=== PATIENT | female | born 1960 | race Caucasian/White ===

== ENCOUNTER 2019-02-11 07:37 | Observation (INO) | payer OTHER ==
[2019-02-11] MEDS ORDERED: SODIUM CHLORIDE 0.9% 1,000 ML IV STA (07:46)
[2019-02-11] MEDS ORDERED: SODIUM CHLORIDE 0.9% 500 ML 500 ML IV STA (07:46)
--- NOTE | 2019-02-11 07:50 | ED ---
General Adult HPI - General Chief complaint: Recheck/Abnormal Lab/Rx Stated complaint: Sob Time Seen by Provider: 02/11/19 07:37 Source: patient, EMS, RN notes reviewed Mode of arrival: EMS Limitations: no limitations - History of Present Illness Initial comments: This is a 58-year-old female who presents with multiple complaints by EMS this morning. She complains of having seizures she also complains of shortness of breath and lower abdominal pain. She does state that she's had seizures in the past though she is not on any medication for them when asked how she knew she had a seizure she states she was has some shaking episodes. He also complains some shortness of breath. She does states she is scheduled for cardiac catheterization in 2 days. Additionally she states she's had chronic lower abdominal pain especially on the left she believes it might be ulcerative colitis as a family member with some medical training thinks is what she has. She has had a cholecystectomy in the past. She denies any fevers chills nausea vomiting at this time. She did receive a nebulizer treatment in route by EMS as she presented with wheezing in the upper lobes. She does feel somewhat better at this time. No chest pain. No diarrhea constipation reported no dysuria reported. - Related Data Home Medications Medication Instructions Recorded Confirmed Albuterol Inhaler [Ventolin Hfa 1 - 2 puff INHALATION RT-Q6H PRN 02/11/19 02/11/19 Inhaler] Aspirin EC [Ecotrin Low Dose] 81 mg PO DAILY 02/11/19 02/11/19 Atorvastatin [Lipitor] 40 mg PO HS 02/11/19 02/11/19 Ibuprofen [Motrin] 600 mg PO Q8HR PRN 02/11/19 02/11/19 Potassium Chloride [Klor-Con 10] 10 meq PO BID 02/11/19 02/11/19 amLODIPine [Norvasc] 10 mg PO DAILY 02/11/19 02/11/19 Allergies Allergy/AdvReac Type Severity Reaction Status Date / Time Influenza Virus Vaccines AdvReac Nausea & Verified 02/11/19 08:43 Vomiting morphine AdvReac Nausea & Verified 02/11/19 08:43 Vomiting Review of Systems ROS Statement: Those systems with pertinent positive or pertinent negative responses have been documented in the HPI. ROS Other: All systems not noted in ROS Statement are negative. Past Medical History Past Medical History: Asthma, Myocardial Infarction ([place]), Seizure Disorder Additional Past Medical History / Comment(s): DDD History of Any Multi-Drug Resistant Organisms: None Reported Past Surgical History: Cholecystectomy, Joint Replacement, Orthopedic Surgery Additional Past Surgical History / Comment(s): bartholin gland cyst removal Past Psychological History: No Psychological Hx Reported Smoking Status: Current every day smoker Past Alcohol Use History: Abuse, Heavy Past Drug Use History: Marijuana General Exam - General Exam Comments Initial Comments: This is a well-developed well-nourished awake alert oriented history female she does demonstrate the smell of alcohol conjoiners on her breath Limitations: no limitations General appearance: alert, anxious Head exam: Present: atraumatic, normocephalic, normal inspection Eye exam: Present: normal appearance, PERRL, EOMI. Absent: scleral icterus, conjunctival injection, periorbital swelling ENT exam: Present: mucous membranes dry Neck exam: Present: normal inspection, other. Absent: tenderness, meningismus, lymphadenopathy Respiratory exam: Present: decreased breath sounds (Stridor JVD or bruits) Cardiovascular Exam: Present: regular rate, normal rhythm, normal heart sounds. Absent: systolic murmur, diastolic murmur, rubs, gallop, clicks GI/Abdominal exam: Present: soft, tenderness (Mild midepigastric tenderness no guarding rebound masses or bruits) Rectal exam: Present: deferred Extremities exam: Present: normal inspection, full ROM, normal capillary refill. Absent: tenderness, pedal edema, joint swelling, calf tenderness Back exam: Present: normal inspection Neurological exam: Present: alert, oriented X3, CN II-XII intact Psychiatric exam: Present: normal affect, normal mood Skin exam: Present: warm, dry, intact, normal color. Absent: rash Course Vital Signs 02/11/19 02/11/19 07:39 08:34 Temperature 98 F Pulse Rate 90 79 Respiratory 20 18 Rate Blood Pressure 168/104 135/91 O2 Sat by Pulse 99 100 Oximetry - Reevaluation(s) Reevaluation #1: 02/11/19 10:17 Evaluation patient reveals she still awake alert she states she only had 4 dr inks yesterday. Reevaluation #2: 02/11/19 10:18 Lung sounds are improved Medical Decision Making - Medical Decision Making I did discuss findings with the patient she'll be admitted I did discuss case with Dr. gonzalez patient will receive IV magnesium also consultation by Dr. Vidal. - Lab Data Result diagrams: 02/11/19 08:20 02/11/19 08:15 Lab Results 02/11/19 02/11/19 02/11/19 Range/Units 08:15 08:15 08:20 WBC 8.6 (3.8-10.6) k/uL RBC 4.71 (3.80-5.40) m/uL Hgb 13.8 (11.4-16.0) gm/dL Hct 43.4 (34.0-46.0) % MCV 92.1 (80.0-100.0) fL MCH 29.3 (25.0-35.0) pg MCHC 31.8 (31.0-37.0) g/dL RDW 17.2 H (11.5-15.5) % Plt Count 285 (150-450) k/uL Neutrophils % 61 % Lymphocytes % 29 % Monocytes % 4 % Eosinophils % 2 % Basophils % 2 % Neutrophils # 5.3 (1.3-7.7) k/uL Lymphocytes # 2.5 (1.0-4.8) k/uL Monocytes # 0.4 (0-1.0) k/uL Eosinophils # 0.2 (0-0.7) k/uL Basophils # 0.1 (0-0.2) k/uL Anisocytosis Slight Sodium 141 (137-145) mmol/L Potassium 4.0 (3.5-5.1) mmol/L Chloride 102 (98-107) mmol/L Carbon Dioxide 26 (22-30) mmol/L Anion Gap 13 mmol/L BUN 11 (7-17) mg/dL Creatinine 0.47 L (0.52-1.04) mg/dL Est GFR (CKD-EPI)AfAm >90 (>60 ml/min/1.73 sqM) Est GFR (CKD-EPI)NonAf >90 (>60 ml/min/1.73 sqM) Glucose 116 H (74-99) mg/dL Calcium 8.6 (8.4-10.2) mg/dL Magnesium 1.7 (1.6-2.3) mg/dL Total Bilirubin 0.4 (0.2-1.3) mg/dL AST 88 H (14-36) U/L ALT 61 H (9-52) U/L Alkaline Phosphatase 133 H (38-126) U/L Total Creatine Kinase 57 (30-135) U/L CK-MB (CK-2) 0.6 (0.0-2.4) ng/mL CK-MB (CK-2) Rel Index 1.1 Total Protein 7.2 (6.3-8.2) g/dL Albumin 4.2 (3.5-5.0) g/dL Amylase 45 (30-110) U/L Lipase 130 (23-300) U/L Urine Color Urine Appearance (Clear) Urine pH (5.0-8.0) Ur Specific [place] (1.001-1.035) Urine Protein (Negative) Urine Glucose (UA) (Negative) Urine Ketones (Negative) Urine Blood (Negative) Urine Nitrite (Negative) Urine Bilirubin (Negative) Urine Urobilinogen (<2.0) mg/dL Ur Leukocyte Esterase (Negative) Serum Alcohol 321 H* mg/dL 02/11/19 Range/Units 08:24 WBC (3.8-10.6) k/uL RBC (3.80-5.40) m/uL Hgb (11.4-16.0) gm/dL Hct (34.0-46.0) % MCV (80.0-100.0) fL MCH (25.0-35.0) pg MCHC (31.0-37.0) g/dL RDW (11.5-15.5) % Plt Count (150-450) k/uL Neutrophils % % Lymphocytes % % Monocytes % % Eosinophils % % Basophils % % Neutrophils # (1.3-7.7) k/uL Lymphocytes # (1.0-4.8) k/uL Monocytes # (0-1.0) k/uL Eosinophils # (0-0.7) k/uL Basophils # (0-0.2) k/uL Anisocytosis Sodium (137-145) mmol/L Potassium (3.5-5.1) mmol/L Chloride (98-107) mmol/L Carbon Dioxide (22-30) mmol/L Anion Gap mmol/L BUN (7-17) mg/dL Creatinine (0.52-1.04) mg/dL Est GFR (CKD-EPI)AfAm (>60 ml/min/1.73 sqM) Est GFR (CKD-EPI)NonAf (>60 ml/min/1.73 sqM) Glucose (74-99) mg/dL Calcium (8.4-10.2) mg/dL Magnesium (1.6-2.3) mg/dL Total Bilirubin (0.2-1.3) mg/dL AST (14-36) U/L ALT (9-52) U/L Alkaline Phosphatase (38-126) U/L Total Creatine Kinase (30-135) U/L CK-MB (CK-2) (0.0-2.4) ng/mL CK-MB (CK-2) Rel Index Total Protein (6.3-8.2) g/dL Albumin (3.5-5.0) g/dL Amylase (30-110) U/L Lipase (23-300) U/L Urine Color Light Yellow Urine Appearance Clear (Clear) Urine pH 6.0 (5.0-8.0) Ur Specific [place] 1.005 (1.001-1.035) Urine Protein Negative (Negative) Urine Glucose (UA) Negative (Negative) Urine Ketones Negative (Negative) Urine Blood Negative (Negative) Urine Nitrite Negative (Negative) Urine Bilirubin Negative (Negative) Urine Urobilinogen <2.0 (<2.0) mg/dL Ur Leukocyte Esterase Negative (Negative) Serum Alcohol mg/dL - EKG Data -: EKG Interpreted by Or EKG shows normal: sinus rhythm (Sinus rhythm of 80. Interval 1:30 QRS duration 92 QT since QTC of 404/465 nonspecific T-wave in reality seen inferior and anterior lateral leads. Prolonged QT) - Radiology Data Radiology results: report reviewed, image reviewed (I did review the imaging and report no acute findings.) Disposition Clinical Impression: Alcohol intoxication, Tremors of nervous system, COPD exacerbation Disposition: ADMITTED IP TO THIS HOSP Condition: Stable Referrals: Davide العلي MD [Primary Care Provider] - 1-2 days
[2019-02-11 08:32] LABS: Anisocytosis Slight; Basophils # (A) 0.1 k/uL (0-0.2); Basophils % (A) 2 %; Eosinophils # (A) 0.2 k/uL (0-0.7); Eosinophils % (A) 2 %; HCT 43.4 % (34.0-46.0); HGB 13.8 gm/dL (11.4-16.0); Lymphocytes # (A) 2.5 k/uL (1.0-4.8); Lymphocytes % (A) 29 %; MCH 29.3 pg (25.0-35.0); MCHC 31.8 g/dL (31.0-37.0); MCV 92.1 fL (80.0-100.0); Mean Platelet Volume 6.8; Monocytes # (A) 0.4 k/uL (0-1.0); Monocytes % (A) 4 %; Neutrophils # (A) 5.3 k/uL (1.3-7.7); Neutrophils % (A) 61 %; Platelet Count 285 k/uL (150-450); RBC 4.71 m/uL (3.80-5.40); RDW 17.2 % (11.5-15.5); WBC 8.6 k/uL (3.8-10.6)
[2019-02-11 08:44] LABS: ALT 61 U/L (9-52); AST 88 U/L (14-36); Albumin 4.2 g/dL (3.5-5.0); Alkaline Phosphatase 133 U/L (38-126); Amylase 45 U/L (30-110); Anion Gap 13 mmol/L; Blood Urea Nitrogen 11 mg/dL (7-17); Calcium 8.6 mg/dL (8.4-10.2); Carbon Dioxide 26 mmol/L (22-30); Chloride 102 mmol/L (98-107); Glucose 116 mg/dL (74-99); Lipase 130 U/L (23-300); Magnesium 1.7 mg/dL (1.6-2.3); Sodium 141 mmol/L (137-145); Total Bilirubin 0.4 mg/dL (0.2-1.3); Total Protein 7.2 g/dL (6.3-8.2)
[2019-02-11 08:53] LABS: Appearance,Urine Clear (Clear); Bilirubin,Urine Negative (Negative); Blood,Urine Negative (Negative); Color,Urine Light Yellow; Glucose,Urine (UA) Negative (Negative); Ketones,Urine Negative (Negative); Leukocyte Esterase,Urine Negative (Negative); Nitrite,Urine Negative (Negative); Protein,Urine Negative (Negative); Specific Gravity,Urine 1.005 (1.001-1.035); Urobilinogen,Urine <2.0 mg/dL (<2.0)
[2019-02-11 09:12] LABS: Alcohol 321 mg/dL
--- NOTE | 2019-02-11 09:12 | XR ---
EXAMINATION TYPE: XR chest 2V DATE OF EXAM: 02/11/2019 COMPARISON: NONE TECHNIQUE: PA and lateral views submitted. HISTORY: Cough FINDINGS: The lungs are clear and there is no pneumothorax, pleural effusion, or focal pneumonia. IMPRESSION: 1. No acute process.
[2019-02-11 09:13] LABS: Creatine Kinase MB 0.6 ng/mL (0.0-2.4)
--- NOTE | 2019-02-11 09:13 | XR ---
EXAMINATION TYPE: XR KUB DATE OF EXAM: 02/11/2019 COMPARISON: NONE HISTORY: Pain TECHNIQUE: One view abdominal series FINDINGS: The osseous structures are intact. The bowel gas pattern is nonspecific. Lung bases are clear. Surg ical clips in the right upper quadrant. Hypertrophic change of the spine. Calcifications in pelvis ar e nonspecific. Mild arthropathy of the left SI joint. IMPRESSION: 1. Nonspecific abdomen. No diagnostic evidence of obstruction. There are calcifications in the pelvi s which are nonspecific. If there is concern for distal ureteral calculus correlate with noncontrast CT.
[2019-02-11] MEDS ORDERED: MAGNESIUM SULFATE-D5W PMX 1 GM in DEXTROSE/WATER 1 100ML.BAG IVPB ONE (10:06)
[2019-02-11] MEDS ORDERED: NALOXONE 0.4 MG/ML 1 ML VIAL IV PRN (10:20)
[2019-02-11] MEDS ORDERED: LORazepam 2 MG/ML INJ IV PRN ×2 (10:22)
[2019-02-11] MEDS ORDERED: THIAMINE 100 MG/ML 2 ML VIAL IM STA (10:22)
[2019-02-11] MEDS ORDERED: methylPREDNISolone SOD SUCCI 125 MG/2 ML VIAL IV STA (10:24)
[2019-02-11] MEDS: LORazepam 2 MG/ML INJ IV PRN ×2 (12:55→16:13)
[2019-02-11] MEDS: IPRATROPIUM-ALBUTEROL 3 ML NEB INHALATION SCH ×3 (13:55→20:06)
--- NOTE | 2019-02-11 14:55 | P.CRDCN ---
History of Present Illness History of present illness: This is a pleasant 58-year-old female past medical history significant for chronic alcoholism,asthma, hypertension, dyslipidemia seizure disorder, nerve damage, chronic nicotine dependence and irritable bowel syndrome. She denies history of coronary artery disease and has never had a heart catheterization in the past. She follows in the office with Dr. Howard. She is scheduled for an outpatient cardiac catheterization February 13. She presented to the hospital today with symptoms of abdominal discomfort and bloating as well as she states she had a seizure at home. She denies symptoms of chest discomfort, shortness of breath, dizziness or palpitations. She states she had a lot of jerking all over her body that she thought was a seizure however she had no loss of consciousness and recalls all the events that occurred surrounding this tremor. She also states 2 days ago she had a significant amount of bright red bleeding in her stool. Currently maintained on aspirin 81 mg daily, atorvastatin 40 mg daily and amlodipine 10 mg daily. EKG reveals sinus mechanism with T-wave inversions noted anterior, inferior and laterally. Similar to EKG in the office from November. Chest x-ray is negative for an acute cardiopulmonary process. Laboratory data reviewed, WBC 8.6, hemoglobin 13.8, platelets 285, sodium 141, potassium 4.0, creatinine 0.47, AST 88, ALTs 61, alkaline phosphatase 133, magnesium 1.7. Most recent echocardiogram obtained at [facility] November 2018 reveals preserved left ventricular systolic function with ejection fraction 55- 60% with mild mitral regurgitation. Most recent stress test performed in November 2018 at [facility] was a Lexiscan stress test which revealed pharmacologically induced left ventricular myocardial ischemia. At the time of my exam: CONSTITUTIONAL: Denies fever. Denies chills. EYES: Denies blurred vision. Denies vision changes. Denies eye pain. EARS, NOSE, MOUTH & THROAT: Denies headache. Denies sore throat. Denies ear pain. CARDIOVASCULAR: Denies chest pain. Denies shortness of breath. Denies orthopnea. Denies PND. Denies palpitations. RESPIRATORY: Denies cough. GASTROINTESTINAL: Complains of abdominal pain. Denies diarrhea. Denies constipation. Denies nausea. Denies vomiting. MUSCULOSKELETAL: Denies myalgias. INTEGUMENTARY: Denies pruitis. Denies rash. NEUROLOGIC: Denies numbness. Denies tingling. Denies weakness. PSYCHIATRIC: Denies anxiety. Denies depression. ENDOCRINE: Denies fatigue. Denies weight change. Denies polydipsia. Denies polyurina. GENITOURINARY: Denies burning, hematuria or urgency with micturation. HEMATOLOGIC: Denies history of anemia. Denies bleeding. Blood pressure 146/92 heart rate 92 afebrile maintaining oxygen saturation on nasal cannula GENERAL: This is a 58-year-old female in no apparent distress at the time of my examination. HEENT: Head is atraumatic, normocephalic. Pupils are equal, round. Sclerae anicteric. Conjunctivae are clear. Mucous membranes of the mouth are moist. Neck is supple. There is no jugular venous distention. No carotid bruit is heard. LUNGS: Clear to auscultation no wheezes, rales or rhonchi. No chest wall tenderness is noted on palpation or with deep breathing. HEART: Regular rate and rhythm without murmurs, rubs or gallops. S1 and S2 heard. ABDOMEN: Soft, nontender. Bowel sounds are heard. No organomegaly noted. EXTREMITIES: No evidence of peripheral edema and no calf tenderness noted. VASCULAR: Radial and dorsalis pedis pulses palpated, no evidence of clubbing. NEUROLOGIC: Patient is awake, alert and oriented x3. ASSESSMENT Abdominal discomfort with acute bright red GI bleeding Acute alcohol intoxication with history of chronic alcohol abuse Abnormal stress test 11/2018, patient is scheduled for catheterization , February 13 Hypertension Dyslipidemia Chronic nicotine dependence PLAN Ongoing medical management and evaluation of abdominal discomfort with GI bleeding. From a cardiac standpoint her catheterization will be postponed for until this GI bleeding has been addressed and resolved. Continue current medical regimen and follow up with Dr. Howard in the office upon discharge to reschedule heart catheterization. Thank you kindly for this consultation. Nurse Practitioner note has been reviewed, I agree with a documented findings and plan of care. Patient was seen and examined. Past Medical History Past Medical History: Asthma, Myocardial Infarction ([place]), Seizure Disorder Additional Past Medical History / Comment(s): DDD Last Myocardial Infarction Date:: aug 2018 History of Any Multi-Drug Resistant Organisms: None Reported Past Surgical History: Cholecystectomy, Joint Replacement, Orthopedic Surgery Additional Past Surgical History / Comment(s): bartholin gland cyst removal Past Anesthesia/Blood Transfusion Reactions: No Reported Reaction Past Psychological History: No Psychological Hx Reported, Depression Smoking Status: Current every day smoker Past Alcohol Use History: Abuse, Heavy Past Drug Use History: Marijuana - Past Family History Mother Family Medical History: Cancer, Congestive Heart Failure (CHF), Coronary Artery Disease (CAD), Hyperlipidemia Father Family Medical History: Cancer, COPD Medications and Allergies Home Medications Medication Instructions Recorded Confirmed Type Albuterol Inhaler [Ventolin Hfa 1 - 2 puff INHALATION RT-Q6H PRN 02/11/19 02/11/19 History Inhaler] Aspirin EC [Ecotrin Low Dose] 81 mg PO DAILY 02/11/19 02/11/19 History Atorvastatin [Lipitor] 40 mg PO HS 02/11/19 02/11/19 History Ibuprofen [Motrin] 600 mg PO Q8HR PRN 02/11/19 02/11/19 History Potassium Chloride [Klor-Con 10] 10 meq PO BID 02/11/19 02/11/19 History amLODIPine [Norvasc] 10 mg PO DAILY 02/11/19 02/11/19 History Allergies Allergy/AdvReac Type Severity Reaction Status Date / Time Influenza Virus Vaccines AdvReac Nausea & Verified 02/11/19 08:43 Vomiting morphine AdvReac Nausea & Verified 02/11/19 08:43 Vomiting Physical Exam Vitals: Vital Signs Temp Pulse Resp BP Pulse Ox 02/11/19 11:43 98.5 F 92 18 146/92 99 02/11/19 10:30 92 18 155/67 100 02/11/19 08:34 79 18 135/91 100 02/11/19 07:39 98 F 90 20 168/104 99 Intake and Output 02/10/19 02/11/19 02/11/19 22:59 06:59 14:59 Other: Weight 74.843 kg Results 02/11/19 08:20 02/11/19 08:15 Cardiac Enzymes 02/11/19 02/11/19 Range/Units 08:15 08:15 AST 88 H (14-36) U/L CK-MB (CK-2) 0.6 (0.0-2.4) ng/mL CBC 02/11/19 Range/Units 08:20 WBC 8.6 (3.8-10.6) k/uL RBC 4.71 (3.80-5.40) m/uL Hgb 13.8 (11.4-16.0) gm/dL Hct 43.4 (34.0-46.0) % Plt Count 285 (150-450) k/uL Comprehensive Metabolic Panel 02/11/19 Range/Units 08:15 Sodium 141 (137-145) mmol/L Potassium 4.0 (3.5-5.1) mmol/L Chloride 102 (98-107) mmol/L Carbon Dioxide 26 (22-30) mmol/L BUN 11 (7-17) mg/dL Creatinine 0.47 L (0.52-1.04) mg/dL Glucose 116 H (74-99) mg/dL Calcium 8.6 (8.4-10.2) mg/dL AST 88 H (14-36) U/L ALT 61 H (9-52) U/L Alkaline Phosphatase 133 H (38-126) U/L Total Protein 7.2 (6.3-8.2) g/dL Albumin 4.2 (3.5-5.0) g/dL Current Medications Generic Name Dose Route Start Last Admin Trade Name Freq PRN Reason Stop Dose Admin Albuterol/Ipratropium 3 ml 02/11/19 12:00 Duoneb 0.5 Mg-3 Mg/3 Ml Soln INHALATION RT-Q4H [facility] Amlodipine Besylate 10 mg 02/12/19 09:00 Norvasc PO DAILY MAGY Atorvastatin Calcium 40 mg 02/11/19 21:00 Lipitor PO HS [facility] Sodium Chloride 1,000 mls @ 75 mls/hr 02/11/19 07:46 02/11/19 08:28 Saline 0.9% IV 02/11/19 21:05 75 mls/hr .[id number] STA Administration Ibuprofen 600 mg 02/11/19 10:22 Motrin PO Q8HR PRN Pain Lorazepam 1 mg 02/11/19 10:22 02/11/19 12:55 Ativan IV 1 mg Q2HR PRN Administration CIWA 8 or 9 Lorazepam 1 mg 02/11/19 10:22 Ativan IV Q1HR PRN CIWA 10 to 15 Lorazepam 2 mg 02/11/19 10:22 Ativan IV 02/13/19 10:22 Q10M PRN CIWA 16 or higher Methylprednisolone Sodium Succinate 60 mg 02/11/19 18:00 Solu-Medrol IV Q6HR [facility] Naloxone HCl 0.2 mg 02/11/19 10:20 Narcan IV Q2M PRN Opioid Reversal Potassium Chloride 10 meq 02/11/19 21:00 K-Dur 10 PO BID [facility] Thiamine HCl 100 mg 02/11/19 17:00 Vitamin B-1 PO BID@1200,1700 [facility] Intake and Output 02/10/19 02/11/19 02/11/19 22:59 06:59 14:59 Other: Weight 74.843 kg Patient Weight 02/12/19 06:59 Weight 74.843 kg 02/11/19 08:20 02/11/19 08:15
[2019-02-11] MEDS: THIAMINE 100 MG TAB PO SCH (16:13)
[2019-02-11 17:14] LABS: Glucose,Whole Blood 203 mg/dL (75-99)
[2019-02-11] MEDS ORDERED: ONDANSETRON 4 MG/2 ML VIAL IVP PRN (17:50)
[2019-02-11] MEDS: methylPREDNISolone SOD SUCCI 125 MG/2 ML VIAL IV SCH (18:20)
[2019-02-11] MEDS: ATORVASTATIN 40 MG TAB PO SCH (19:43)
[2019-02-11] MEDS: IBUPROFEN 600 MG TAB PO PRN (19:43)
[2019-02-11] MEDS ORDERED: amLODIPine 10 MG TAB PO ONE (20:00)
[2019-02-11] MEDS: POTASSIUM CHLORIDE ER 10 MEQ TAB.ER.PRT PO SCH (20:13)
[2019-02-11 20:18] LABS: Glucose,Whole Blood 169 mg/dL (75-99)
[2019-02-11] MEDS ORDERED: MAG HYDROX/AL HYDROX/SIMETH 30 ML CUP PO PRN (23:39)
--- NOTE | 2019-02-11 23:58 | P.HPIM ---
History of Present Illness H&P Date: 02/11/19 Chief Complaint: Abdominal pain Patient is a 58-year-old female with a known history of asthma, seizure disorder, hypertension, hyperlipidemia, alcohol abuse and nicotine dependence as well as irritable bowel syndrome presents to ER with complaints of abdominal discomfort and bloating and also had a seizure at home as per patient. Patient says that she had jerky movements at home but denied any loss of consciousness.. Patient was alcohol intoxicated on admission. Additionally she states she's had chronic lower abdominal pain especially on the left she believes it might be ulcerative colitis as a family member with some medical training thinks is what she has. She has had a colonoscopy in the past. Patient otherwise currently denied any complaints of chest pain. Patient is scheduled for cardiac catheterization on February 13 due to recent abnormal stress test. Patient otherwise denied any complaints of fever or chills. Patient was short of breath on admission. She did receive a nebulizer treatment in route by EMS as she presented with wheezing in the upper lobes. Patient is currently being treated for COPD exacerbation. Her breathing seems to be much improved today. EKG reveals sinus mechanism with T-wave inversions noted anterior, inferior and laterally. Similar to EKG in the office from November. Chest x-ray is negative for an acute cardiopulmonary process. Laboratory data reviewed, WBC 8.6, hemoglobin 13.8, platelets 285, sodium 141, potassium 4.0, creatinine 0.47, AST 88, ALTs 61, alkaline phosphatase 133, magnesium 1.7. Most recent echocardiogram obtained at [facility] November 2018 reveals preserved left ventricular systolic function with ejection fraction 55- 60% with mild mitral regurgitation. Most recent stress test performed in November 2018 at [facility] was a Lexiscan stress test which revealed pharmacologically induced left ventricular myocardial ischemia. Review of Systems Constitutional: Patient denies any fever or chills . No generalized weakness or weight loss. Abdomen: Patient denied nausea vomiting . Patient says that she had bloody diarrhea and abdominal pain.. Cardiovascular: Patient denies any chest pain or short of breath no palpita tions. Respiratory: patient denied any cough is from production. No shortness of breath Neurologic: Patient denied any numbness or tingling headache. Musculoskeletal: Patient denies any complaints of joint swelling or deformity. Skin: Negative Psychiatric: Negative Endocrine: No heat or cold intolerance. No recent weight gain. Genitourinary: No dysuria or hematuria. All other 14 point ROS negative except the above Past Medical History Past Medical History: Asthma, Myocardial Infarction ([place]), Seizure Disorder Additional Past Medical History / Comment(s): DDD Last Myocardial Infarction Date:: aug 2018 History of Any Multi-Drug Resistant Organisms: None Reported Past Surgical History: Cholecystectomy, Joint Replacement, Orthopedic Surgery Additional Past Surgical History / Comment(s): bartholin gland cyst removal Past Anesthesia/Blood Transfusion Reactions: No Reported Reaction Past Psychological History: No Psychological Hx Reported, Depression Smoking Status: Current every day smoker Past Alcohol Use History: Abuse, Heavy Past Drug Use History: Marijuana - Past Family History Mother Family Medical History: Cancer, Congestive Heart Failure (CHF), Coronary Artery Disease (CAD), Hyperlipidemia Father Family Medical History: Cancer, COPD Medications and Allergies Home Medications Medication Instructions Recorded Confirmed Type Albuterol Inhaler [Ventolin Hfa 1 - 2 puff INHALATION RT-Q6H PRN 02/11/19 02/11/19 History Inhaler] Aspirin EC [Ecotrin Low Dose] 81 mg PO DAILY 02/11/19 02/11/19 History Atorvastatin [Lipitor] 40 mg PO HS 02/11/19 02/11/19 History Fluticasone Nasal [place] [Flonase 2 spr EA NOSTRIL DAILY 02/11/19 02/11/19 History Nasal [place]] Ibuprofen [Motrin] 600 mg PO Q8HR PRN 02/11/19 02/11/19 History Potassium Chloride [Klor-Con 10] 10 meq PO BID 02/11/19 02/11/19 History amLODIPine [Norvasc] 10 mg PO DAILY 02/11/19 02/11/19 History Allergies Allergy/AdvReac Type Severity Reaction Status Date / Time Influenza Virus Vaccines AdvReac Nausea & Verified 02/11/19 08:43 Vomiting morphine AdvReac Nausea & Verified 02/11/19 08:43 Vomiting Physical Exam Vitals: Vital Signs Temp Pulse Resp BP Pulse Ox 02/11/19 14:28 18 02/11/19 11:43 98.5 F 92 18 146/92 99 02/11/19 10:30 92 18 155/67 100 02/11/19 08:34 79 18 135/91 100 02/11/19 07:39 98 F 90 20 168/104 99 Intake and Output 02/10/19 02/11/19 02/11/19 22:59 06:59 14:59 Intake Total 240 Balance 240 Intake: Oral 240 Other: Voiding Method Toilet # Voids 4 Weight 74.843 kg PHYSICAL EXAMINATION: Patient is lying in the bed comfortably, no acute distress, awake alert and oriented.. HEENT: Normocephalic. Neck is supple. Pupils reactive. Nostrils clear. Oral cavity is moist. Ears reveal no drainage. Neck reveals no JVD, carotid bruits, or thyromegaly. CHEST EXAMINATION: Trachea is central. Symmetrical expansion. Mild expiratory wheezing. Lung galvan clear to auscultation and percussion. CARDIAC: Normal S1, S2 with no gallops. No murmurs ABDOMEN: Soft. Nontender. Bowel sounds normal. No organomegaly. No abdominal bruits. Extremities: reveal no edema. No clubbing or cyanosis Neurologically awake, alert, oriented x3 with well-coordinated movements. No focal deficits noted Skin: No rash or skin lesions. Psychiatric: Coperative. Nonsuicidal Musculoskeletal: No joint swelling or deformity. Normal range of motion. Results CBC & Chem 7: 02/11/19 08:20 02/11/19 08:15 Labs: Abnormal Lab Results - Last 24 Hours (Table) 02/11/19 02/11/19 Range/Units 08:15 08:20 RDW 17.2 H (11.5-15.5) % Creatinine 0.47 L (0.52-1.04) mg/dL Glucose 116 H (74-99) mg/dL AST 88 H (14-36) U/L ALT 61 H (9-52) U/L Alkaline Phosphatase 133 H (38-126) U/L Serum Alcohol 321 H* mg/dL Thrombosis Risk Factor Assmnt - DVT/VTE Prophylaxis DVT/VTE Prophylaxis: Pharmacologic Prophylaxis ordered - Choose All That Apply Each Factor Represents 1 point: Age 41-60 years Thrombosis Risk Factor Assessment Total Risk Factor Score: 1 Thrombosis Risk Factor Assessment Level: Low Risk Assessment and Plan Assessment: Acute alcohol intoxication on admission. Alcohol level 321 Elevated liver enzymes possible alcoholic hepatitis Acute on chronic abdominal pain and bloody diarrhea as per patient. Hemoglobin is stable. Acute COPD exacerbation Abnormal stress test recently and is scheduled for cardiac catheterization on February 13 Nicotine addiction and alcohol abuse Hypertension Hyperlipidemia Obesity with BMI 30.2 History of marijuana use DVT prophylaxis Plan: Patient will be continued on IV hydration. Thiamine and multivitamins. Continue with PPI. Continue with breathing treatment and IV steroids were started. Monitor for withdrawal symptoms. Monitor H&H. Will consult GI and cardiology is following. Follow up closely and further recommendations based on the clinical course. Time with Patient: Greater than 30
[2019-02-12] MEDS ORDERED: methylPREDNISolone SOD SUCCI 125 MG/2 ML VIAL IV SCH
[2019-02-12] MEDS ORDERED: methylPREDNISolone SOD SUCCI 40 MG/ML 1 ML VIAL IV SCH (00:02)
[2019-02-12] MEDS: HEPARIN SODIUM,PORCINE 5,000 UNIT/ML 1 ML VIAL SQ SCH ×3 (00:02→17:34)
[2019-02-12] MEDS: PANTOPRAZOLE 40 MG TABLET PO SCH ×2 (00:04→08:23)
[2019-02-12] MEDS: SODIUM CHLORIDE 0.9% 1,000 ML IV SCH ×3 (00:06→19:50)
[2019-02-12] MEDS: methylPREDNISolone SOD SUCCI 125 MG/2 ML VIAL IV SCH (00:13)
[2019-02-12] MEDS: IPRATROPIUM-ALBUTEROL 3 ML NEB INHALATION SCH ×6 (00:18→19:36)
[2019-02-12 02:02] LABS: Glucose,Whole Blood 183 mg/dL (75-99)
[2019-02-12] MEDS: IBUPROFEN 600 MG TAB PO PRN ×2 (03:48→19:48)
[2019-02-12 06:49] LABS: Glucose,Whole Blood 226 mg/dL (75-99)
[2019-02-12] MEDS ORDERED: PANTOPRAZOLE 40 MG TABLET PO SCH (07:30)
[2019-02-12] MEDS ORDERED: IPRATROPIUM-ALBUTEROL 3 ML NEB INHALATION PRN (07:44)
[2019-02-12] MEDS: POTASSIUM CHLORIDE ER 10 MEQ TAB.ER.PRT PO SCH ×2 (08:23→21:17)
[2019-02-12] MEDS: amLODIPine 10 MG TAB PO SCH (08:23)
[2019-02-12] MEDS: INSULIN ASPART (NovoLOG) 100 UNIT/ML VIAL SQ SCH ×4 (08:30→21:18)
[2019-02-12 09:06] LABS: Anisocytosis Slight; Basophils % (A) 0 %; Eosinophils % (A) 0 %; HCT 36.1 % (34.0-46.0); HGB 11.7 gm/dL (11.4-16.0); Lymphocytes # (A) 0.4 k/uL (1.0-4.8); Lymphocytes % (A) 4 %; MCH 30.2 pg (25.0-35.0); MCHC 32.4 g/dL (31.0-37.0); MCV 93.1 fL (80.0-100.0); Mean Platelet Volume 8.2; Monocytes # (A) 0.3 k/uL (0-1.0); Monocytes % (A) 3 %; Neutrophils # (A) 9.7 k/uL (1.3-7.7); Neutrophils % (A) 93 %; Platelet Count 190 k/uL (150-450); RBC 3.87 m/uL (3.80-5.40); RDW 17.4 % (11.5-15.5); WBC 10.4 k/uL (3.8-10.6)
[2019-02-12 09:29] LABS: Anion Gap 13 mmol/L; Blood Urea Nitrogen 6 mg/dL (7-17); Calcium 8.8 mg/dL (8.4-10.2); Carbon Dioxide 21 mmol/L (22-30); Chloride 104 mmol/L (98-107); Glucose 216 mg/dL (74-99); Potassium 3.5 mmol/L (3.5-5.1); Sodium 138 mmol/L (137-145)
[2019-02-12 11:09] LABS: Glucose,Whole Blood 157 mg/dL (75-99)
[2019-02-12] MEDS: THIAMINE 100 MG TAB PO SCH ×2 (11:47→17:34)
[2019-02-12] MEDS: FLUTICASONE 50MCG/SPRAY NASAL 16GM EA NOSTRIL SCH (15:16)
[2019-02-12] MEDS: NICOTINE 21MG/24HR PATCH TRANSDERM SCH (15:17)
[2019-02-12 17:13] LABS: Glucose,Whole Blood 153 mg/dL (75-99)
--- NOTE | 2019-02-12 18:57 | P.CONS ---
History of Present Illness - Reason for Consult Consult date: 02/12/19 Abdominal pain Requesting physician: Hellen Jackson - Chief Complaint Seizure, abdominal pain - History of Present Illness 58-year-old female with multiple medical comorbidities including asthma, seizure disorder, hypertension, dyslipidemia, nicotine abuse, alcohol abuse and IBS who presented to the emergency department with a constellation of symptoms. On presentation the patient reported having a seizure prior to coming to the hospital. She denies any loss of consciousness but does report she was shaking. In addition the patient reported abdominal pain. She reported the pain as a discomfort diffusely across the abdomen and in the periumbilical region which she described as sharp and cramping in nature. She reports that abdominal pain is chronic in nature and she has been evaluated with upper and lower endoscopy on numerous occasions. She states her last endoscopic evaluation with EGD and colonoscopy was approximately 3-4 years ago was essentially normal. She also reports she has been started on a PPI at home with no improvement in symptoms. She denies any trials of anti spasmodic medications in the past. The patient was also found to be intoxicated on presentation with an elevated alcohol level and is currently being treated for an exacerbation of COPD. Abdominal x-ray on presentation was essentially negative describing a nonspecific abdomen. Hemoglobin 11.7, platelet count 190,000, total bilirubin 0.4, alkaline phosphatase 133, AST 88 and ALT 61. Review of Systems REVIEW OF SYSTEMS: CONSTITUTIONAL: Denies any fevers, chills, weight change or fatigue. CARDIOVASCULAR: Denies any chest pain, palpitations high or low blood pressures RESPIRATORY: Denies any shortness of breath, hemoptysis or cough. GENITOURINARY: No dysuria or hematuria. MUSCULOSKELETAL: No weakness reported. SKIN: Denies any new rashes or lesions, jaundice or pallor. PSYCHIATRIC: Denies any depression or anxiety. NEUROLOGY: Denies headache, denies any new focal deficits, she reports seizure like activity prior to presentation. EARS/NOSE/THROAT: No recent hearing change, congestion, nasal discharge or sore throat. EYES: No pain in eyes, discharge or change in vision. GASTROINTESTINAL: As per HPI. Past Medical History Past Medical History: Asthma, Myocardial Infarction ([place]), Seizure Disorder Additional Past Medical History / Comment(s): DDD Last Myocardial Infarction Date:: aug 2018 History of Any Multi-Drug Resistant Organisms: None Reported Past Surgical History: Cholecystectomy, Joint Replacement, Orthopedic Surgery Additional Past Surgical History / Comment(s): bartholin gland cyst removal Past Anesthesia/Blood Transfusion Reactions: No Reported Reaction Past Psychological History: No Psychological Hx Reported, Depression Smoking Status: Current every day smoker Past Alcohol Use History: Abuse, Heavy Past Drug Use History: Marijuana - Past Family History Mother Family Medical History: Cancer, Congestive Heart Failure (CHF), Coronary Artery Disease (CAD), Hyperlipidemia Father Family Medical History: Cancer, COPD Medications and Allergies Home Medications Medication Instructions Recorded Confirmed Type Albuterol Inhaler [Ventolin Hfa 1 - 2 puff INHALATION RT-Q6H PRN 02/11/19 02/11/19 History Inhaler] Aspirin EC [Ecotrin Low Dose] 81 mg PO DAILY 02/11/19 02/11/19 History Atorvastatin [Lipitor] 40 mg PO HS 02/11/19 02/11/19 History Fluticasone Nasal [place] [Flonase 2 spr EA NOSTRIL DAILY 02/11/19 02/11/19 History Nasal [place]] Ibuprofen [Motrin] 600 mg PO Q8HR PRN 02/11/19 02/11/19 History Potassium Chloride [Klor-Con 10] 10 meq PO BID 02/11/19 02/11/19 History amLODIPine [Norvasc] 10 mg PO DAILY 02/11/19 02/11/19 History Allergies Allergy/AdvReac Type Severity Reaction Status Date / Time Influenza Virus Vaccines AdvReac Nausea & Verified 02/11/19 08:43 Vomiting morphine AdvReac Nausea & Verified 02/11/19 08:43 Vomiting Physical Exam Vitals: Vital Signs Temp Pulse Pulse Resp BP Pulse Ox 02/12/19 16:08 110 H 02/12/19 15:58 112 H 02/12/19 12:08 98 02/12/19 11:53 96 02/12/19 11:51 97.8 F 118 H 17 159/98 99 02/12/19 07:51 102 H 02/12/19 07:39 100 02/12/19 05:21 97.6 F 112 H 18 143/92 95 02/12/19 04:09 104 H 02/12/19 03:59 102 H 02/12/19 00:27 104 H 02/12/19 00:20 100 02/12/19 00:00 106 H 18 02/11/19 20:17 98.2 F 124 H 18 114/76 93 L 02/11/19 20:07 100 Intake and Output 02/12/19 02/12/19 02/12/19 06:59 14:59 22:59 Intake Total 1750 1280 Balance 1750 1280 Intake: Intake, IV Titration 800 800 Amount Sodium Chloride 0.9% 1, 800 800 000 ml @ 100 mls/hr IV . Q10H MAGY Rx#:[id number] Oral 950 480 Other: Voiding Method Toilet # Voids 2 4 On physical examination, patient appears comfortable in no apparent distress. HEAD: Normocephalic, atraumatic. EYES: No scleral icterus. No conjunctival injection. MOUTH: No lesions, tongue midline. NECK: Trachea midline, no gross abnormalities. CHEST: Decreased air entry in all galvan. HEART: Regular rate and rhythm. ABDOMEN: Soft, obese. Bowel sounds are positive. No organomegaly. No guarding or rigidity. EXTREMITIES: No pedal edema. SKIN: No rashes, no jaundice. NEUROLOGIC: Alert and oriented x3, appears tremulous but no asterixis. No focal deficits. Results CBC & Chem 7: 02/12/19 08:32 02/12/19 08:32 Labs: Abnormal Lab Results - Last 24 Hours (Table) 02/11/19 02/12/19 02/12/19 Range/Units 20:16 02:01 06:48 RDW (11.5-15.5) % Neutrophils # (1.3-7.7) k/uL Lymphocytes # (1.0-4.8) k/uL Carbon Dioxide (22-30) mmol/L BUN (7-17) mg/dL Creatinine (0.52-1.04) mg/dL Glucose (74-99) mg/dL POC Glucose (mg/dL) 169 H 183 H 226 H (75-99) mg/dL 02/12/19 02/12/19 02/12/19 Range/Units 08:32 08:32 11:08 RDW 17.4 H (11.5-15.5) % Neutrophils # 9.7 H (1.3-7.7) k/uL Lymphocytes # 0.4 L (1.0-4.8) k/uL Carbon Dioxide 21 L (22-30) mmol/L BUN 6 L (7-17) mg/dL Creatinine 0.46 L (0.52-1.04) mg/dL Glucose 216 H (74-99) mg/dL POC Glucose (mg/dL) 157 H (75-99) mg/dL 02/12/19 Range/Units 17:12 RDW (11.5-15.5) % Neutrophils # (1.3-7.7) k/uL Lymphocytes # (1.0-4.8) k/uL Carbon Dioxide (22-30) mmol/L BUN (7-17) mg/dL Creatinine (0.52-1.04) mg/dL Glucose (74-99) mg/dL POC Glucose (mg/dL) 153 H (75-99) mg/dL Abdominal x-ray: report reviewed (X-ray abdomen with no acute pathology, nonspecific abdomen.) Assessment and Plan (1) Abdominal pain Narrative/Plan: The patient reports a chronic history of abdominal pain, described as diffuse across the abdomen and cramping and sharp in nature. She has had investigation with both EGD and colonoscopy on multiple occasions with no pathology noted. No findings on x-ray of the abdomen in the emergency department. Unclear etiology with differential including dyspepsia, functional bowel disorder, gastritis, or other etiology. Current Visit: Yes Status: Acute Code(s): R10.9 - UNSPECIFIED ABDOMINAL PAIN SNOMED Code(s): 50904194 (2) Alcohol intoxication Current Visit: Yes Status: Acute Code(s): F10.929 - ALCOHOL USE, UNSPECIFIED WITH INTOXICATION, UNSPECIFIED SNOMED Code(s): 13409015 Plan: Supportive care Okay for diet Continue Protonix daily We'll add Bentyl 10 mg 4 times a day Continue to monitor symptoms Continue monitor CBC, CMP ESR and CRP ordered Continue to watch for symptoms of alcohol withdrawal Discussion about dietary modifications to decrease gas and distention Thank you for allowing us to participate in the care of this patient we will continue to follow
[2019-02-12 20:44] LABS: Glucose,Whole Blood 191 mg/dL (75-99)
[2019-02-12] MEDS: ATORVASTATIN 40 MG TAB PO SCH (21:17)
[2019-02-12] MEDS: DICYCLOMINE 10 MG CAP PO SCH (21:17)
[2019-02-12 22:42] VITALS: RESP 18
--- NOTE | 2019-02-13 00:04 | P.PN ---
Subjective Progress Note Date: 02/12/19 Principal diagnosis: Acute alcohol intoxication COPD with mild exacerbation Abdominal pain possible IBS Patient is a 58-year-old female with a known history of asthma, seizure dis order, hypertension, hyperlipidemia, alcohol abuse and nicotine dependence as well as irritable bowel syndrome presents to ER with complaints of abdominal discomfort and bloating and also had a seizure at home as per patient. Patient says that she had jerky movements at home but denied any loss of consciousness.. Patient was alcohol intoxicated on admission. Additionally she states she's had chronic lower abdominal pain especially on the left she believes it might be ulcerative colitis as a family member with some medical training thinks is what she has. She has had a colonoscopy in the past. Patient otherwise currently denied any complaints of chest pain. Patient is scheduled for cardiac catheterization on February 13 due to recent abnormal stress test. Patient otherwise denied any complaints of fever or chills. Patient was short of breath on admission. She did receive a nebulizer treatment in route by EMS as she presented with wheezing in the upper lobes. Patient is currently being treated for COPD exacerbation. Her breathing seems to be much improved today. EKG reveals sinus mechanism with T-wave inversions noted anterior, inferior and laterally. Similar to EKG in the office from November. Chest x-ray is negative for an acute cardiopulmonary process. Laboratory data reviewed, WBC 8.6, hemoglobin 13.8, platelets 285, sodium 141, potassium 4.0, creatinine 0.47, AST 88, ALTs 61, alkaline phosphatase 133, magnesium 1.7. Most recent echocardiogram obtained at [facility] November 2018 reveals preserved left ventricular systolic function with ejection fraction 55- 60% with mild mitral regurgitation. Most recent stress test performed in November 2018 at [facility] was a Lexiscan stress test which revealed pharmacologically induced left ventri cular myocardial ischemia. 02/12/2019 Patient is ambulating well in the room. No complaints of shortness of breath. Patient is anxious and is being monitored for alcohol withdrawal symptoms. Patient says that she continues to have diarrhea and blood in the stool as per the patient. Patient is being continued on Protonix. GI has seen the patient and was started on Bentyl 4 times a day when necessary. Otherwise patient is being converted on DuoNeb's and steroids will be changed to by mouth. No fever no chills. Denied any headache or dizziness or lightheadedness. No complains of abdominal pain. No nausea no vomiting. Tolerating oral diet. Current medications reviewed. Objective - Vital Signs Vital signs: Vital Signs Temp 98.0 F 02/12/19 21:00 Pulse 111 H 02/12/19 21:00 Resp 18 02/12/19 21:00 BP 121/79 02/12/19 21:00 Pulse Ox 96 02/12/19 21:00 Intake & Output 02/12/19 02/12/19 02/13/19 06:59 18:59 06:59 Intake Total 2630 1280 890 Balance 2630 1280 890 Intake: Intake, IV Titration 1200 800 350 Amount Sodium Chloride 0.9% 1, 1200 800 350 000 ml @ 100 mls/hr IV . Q10H MAGY Rx#:[id number] Oral 1430 480 540 Other: Voiding Method Toilet # Voids 2 4 1 - Exam PHYSICAL EXAMINATION: Patient is lying in the bed comfortably, no acute distress, awake alert and oriented.. HEENT: Normocephalic. Neck is supple. Pupils reactive. Nostrils clear. Oral cavity is moist. Ears reveal no drainage. Neck reveals no JVD, carotid bruits, or thyromegaly. CHEST EXAMINATION: Trachea is central. Symmetrical expansion. No wheezing. Lung galvan clear to auscultation and percussion. CARDIAC: Normal S1, S2 with no gallops. No murmurs ABDOMEN: Soft. Nontender. Bowel sounds normal. No organomegaly. No abdominal bruits. Extremities: reveal no edema. No clubbing or cyanosis Neurologically awake, alert, oriented x3 with well-coordinated movements. No focal deficits noted Skin: No rash or skin lesions. Psychiatric: Coperative. Nonsuicidal Musculoskeletal: No joint swelling or deformity. Normal range of motion. - Labs CBC & Chem 7: 02/12/19 08:32 02/12/19 08:32 Labs: Abnormal Lab Results - Last 24 Hours (Table) 02/12/19 02/12/19 02/12/19 Range/Units 02:01 06:48 08:32 RDW 17.4 H (11.5-15.5) % Neutrophils # 9.7 H (1.3-7.7) k/uL Lymphocytes # 0.4 L (1.0-4.8) k/uL Carbon Dioxide (22-30) mmol/L BUN (7-17) mg/dL Creatinine (0.52-1.04) mg/dL Glucose (74-99) mg/dL POC Glucose (mg/dL) 183 H 226 H (75-99) mg/dL 02/12/19 02/12/19 02/12/19 Range/Units 08:32 11:08 17:12 RDW (11.5-15.5) % Neutrophils # (1.3-7.7) k/uL Lymphocytes # (1.0-4.8) k/uL Carbon Dioxide 21 L (22-30) mmol/L BUN 6 L (7-17) mg/dL Creatinine 0.46 L (0.52-1.04) mg/dL Glucose 216 H (74-99) mg/dL POC Glucose (mg/dL) 157 H 153 H (75-99) mg/dL 02/12/19 Range/Units 20:42 RDW (11.5-15.5) % Neutrophils # (1.3-7.7) k/uL Lymphocytes # (1.0-4.8) k/uL Carbon Dioxide (22-30) mmol/L BUN (7-17) mg/dL Creatinine (0.52-1.04) mg/dL Glucose (74-99) mg/dL POC Glucose (mg/dL) 191 H (75-99) mg/dL Assessment and Plan Assessment: Acute alcohol intoxication on admission. Alcohol level 321 Elevated liver enzymes possible alcoholic hepatitis Acute on chronic abdominal pain and bloody diarrhea as per patient. Hemoglobin is stable. Acute COPD exacerbation. Improved Abnormal stress test recently and is scheduled for cardiac catheterization on February 13 Nicotine addiction and alcohol abuse Hypertension Hyperlipidemia Obesity with BMI 30.2 History of marijuana use DVT prophylaxis Plan: Patient will be continued on IV hydration. Thiamine and multivitamins. Continue with PPI. Denied change to by mouth. Continue with breathing treatments. Cardiology has postponed the catheterization until symptomatic improvement. Monitor for withdrawal symptoms. Monitor H&H. GI is following.. Follow up closely and further recommendations based on the clinical course. Time with Patient: Greater than 30
[2019-02-13] MEDS: HEPARIN SODIUM,PORCINE 5,000 UNIT/ML 1 ML VIAL SQ SCH ×2 (00:30→07:43)
[2019-02-13 02:25] LABS: Glucose,Whole Blood 143 mg/dL (75-99)
[2019-02-13 06:49] LABS: Glucose,Whole Blood 126 mg/dL (75-99)
[2019-02-13] MEDS: INSULIN ASPART (NovoLOG) 100 UNIT/ML VIAL SQ SCH ×2 (07:30→12:41)
[2019-02-13] MEDS: NICOTINE 21MG/24HR PATCH TRANSDERM SCH (07:42)
[2019-02-13] MEDS: POTASSIUM CHLORIDE ER 10 MEQ TAB.ER.PRT PO SCH (07:43)
[2019-02-13] MEDS: amLODIPine 10 MG TAB PO SCH (07:43)
[2019-02-13] MEDS: FLUTICASONE 50MCG/SPRAY NASAL 16GM EA NOSTRIL SCH (07:43)
[2019-02-13] MEDS: PANTOPRAZOLE 40 MG TABLET PO SCH (07:43)
[2019-02-13] MEDS: DICYCLOMINE 10 MG CAP PO SCH ×2 (07:44→12:41)
[2019-02-13] MEDS: SODIUM CHLORIDE 0.9% 1,000 ML IV SCH (07:44)
[2019-02-13] MEDS: IBUPROFEN 600 MG TAB PO PRN (07:50)
[2019-02-13] MEDS: IPRATROPIUM-ALBUTEROL 3 ML NEB INHALATION SCH ×2 (08:05→11:32)
[2019-02-13] MEDS ORDERED: predniSONE 20 MG TAB PO SCH (09:00)
[2019-02-13 10:55] LABS: Glucose,Whole Blood 141 mg/dL (75-99)
[2019-02-13 11:54] VITALS: BP 146/87; PULSE 97; TEMP 97.6
[2019-02-13] MEDS: THIAMINE 100 MG TAB PO SCH (12:41)
[2019-02-13 19:47] LABS: Hemoglobin A1C 5.6 % (4.0-6.0)
--- NOTE | 2019-02-25 11:13 | P.DS ---
Providers Date of admission: 02/11/19 10:37 Expected date of discharge: 02/13/19 Attending physician: Sammy Amador MD Consults: 02/11/19 10:21 Consult Physician Routine Consulting Provider: Unruly Howard Consult Reason/Comments: Upcoming cardiac cath Do you want consulting provider notified?: Yes 02/11/19 17:30 Consult Physician Routine Consulting Provider: Stiven Crowe Consult Reason/Comments: abd pain Do you want consulting provider notified?: Yes Primary care physician: [facility] Course: Discharge diagnosis Acute alcohol intoxication on admission. Alcohol level 321 Elevated liver enzymes possible alcoholic hepatitis. Improved. Acute on chronic abdominal pain and bloody diarrhea as per patient. Possible IBS. Continue with Bentyl. Hemoglobin is stable. Acute COPD exacerbation. Improved Abnormal stress test recently and is scheduled for cardiac catheterization on February 13 Nicotine addiction and alcohol abuse Hypertension Hyperlipidemia Obesity with BMI 30.2 History of marijuana use DVT prophylaxis Hospital course Patient is a 58-year-old female with a known history of asthma, seizure disorder, hypertension, hyperlipidemia, alcohol abuse and nicotine dependence as well as irritable bowel syndrome presents to ER with complaints of abdominal discomfort and bloating and also had a seizure at home as per patient. Patient says that she had jerky movements at home but denied any loss of consciousness.. Patient was alcohol intoxicated on admission. Additionally she states she's had chronic lower abdominal pain especially on the left she believes it might be ulcerative colitis as a family member with some medical training thinks is what she has. She has had a colonoscopy in the past. Patient otherwise currently denied any complaints of chest pain. Patient is scheduled for cardiac catheterization on February 13 due to recent abnormal stress test. Patient otherwise denied any complaints of fever or chills. Patient was short of breath on admission. She did receive a nebulizer treatment in route by EMS as she presented with wheezing in the upper lobes. Patient is currently being treated for COPD exacerbation. Her breathing seems to be much improved today. EKG reveals sinus mechanism with T-wave inversions noted anterior, inferior and laterally. Similar to EKG in the office from November. Chest x-ray is negative for an acute cardiopulmonary process. Laboratory data reviewed, WBC 8.6, hemoglobin 13.8, platelets 285, sodium 141, potassium 4.0, creatinine 0.47, AST 88, ALTs 61, alkaline phosphatase 133, magnesium 1.7. Most recent echocardiogram obtained at [facility] November 2018 reveals preserved left ventricular systolic function with ejection fraction 55- 60% with mild mitral regurgitation. Most recent stress test performed in November 2018 at [facility] was a Lexiscan stress test which revealed pharmacologically induced left ventricular myocardial ischemia. 02/12/2019 Patient is ambulating well in the room. No complaints of shortness of breath. Patient is anxious and is being monitored for alcohol withdrawal symptoms. Patient says that she continues to have diarrhea and blood in the stool as per the patient. Patient is being continued on Protonix. GI has seen the patient and was started on Bentyl 4 times a day when necessary. Otherwise patient is being converted on DuoNeb's and steroids will be changed to by mouth. No fever no chills. Denied any headache or dizziness or lightheadedness. No complains of abdominal pain. No nausea no vomiting. Tolerating oral diet. 02/13/2019 Patient denied any complaints of chest pain or shortness of breath today. Abdominal pain seems to be improved with Bentyl as needed. Patient was continued on steroids and breathing treatments. Breathing status is much improved as well. No complains of dizziness or lightheadedness. Patient does have diarrhea but no blood in the stool. No leukocytosis. No abdominal pain. No nausea no vomiting. Tolerating oral diet. Patient is stable to be discharged home and follow with primary care physician and GI clinic. Patient will need to follow up with cardiology clinic for rescheduling catheterization. PHYSICAL EXAMINATION: Patient is lying in the bed comfortably, no acute distress, awake alert and oriented.. HEENT: Normocephalic. Neck is supple. Pupils reactive. Nostrils clear. Oral cavity is moist. Ears reveal no drainage. Neck reveals no JVD, carotid bruits, or thyromegaly. CHEST EXAMINATION: Trachea is central. Symmetrical expansion. Lung galvan clear to auscultation and percussion. CARDIAC: Normal S1, S2 with no gallops. No murmurs ABDOMEN: Soft. Bowel sounds normal. No organomegaly. No abdominal bruits. Extremities: reveal no edema. No clubbing or cyanosis Neurologically awake, alert, oriented x3 with well-coordinated movements. No focal deficits noted Skin: No rash or skin lesions. Psychiatric: Coperative. Nonsuicidal Musculoskeletal: No joint swelling or deformity. Normal range of motion. Discharge vitals reviewed. Total time taken greater than 35 minutes including 18 minutes for counseling and coordination of care. Patient Condition at Discharge: Stable Plan - Discharge Summary New Discharge Prescriptions: New Thiamine [Vitamin B-1] 100 mg PO DAILY #30 tab Dicyclomine [Bentyl] 10 mg PO QID PRN #30 cap PRN Reason: abdominal spasm predniSONE 40 mg PO DAILY 2 Days #4 tab Pantoprazole [Protonix] 40 mg PO AC-BRKFST #30 tablet.dr Continue Atorvastatin [Lipitor] 40 mg PO HS Albuterol Inhaler [Ventolin Hfa Inhaler] 1 - 2 puff INHALATION RT-Q6H PRN PRN Reason: Shortness Of Breath amLODIPine [Norvasc] 10 mg PO DAILY Aspirin EC [Ecotrin Low Dose] 81 mg PO DAILY Potassium Chloride [Klor-Con 10] 10 meq PO BID Fluticasone Nasal [place] [Flonase Nasal [place]] 2 spr EA NOSTRIL DAILY Discontinued Ibuprofen [Motrin] 600 mg PO Q8HR PRN PRN Reason: Pain Discharge Medication List Albuterol Inhaler [Ventolin Hfa Inhaler] 1 - 2 puff INHALATION RT-Q6H PRN 02/11/19 [History] Aspirin EC [Ecotrin Low Dose] 81 mg PO DAILY 02/11/19 [History] Atorvastatin [Lipitor] 40 mg PO HS 02/11/19 [History] Fluticasone Nasal [place] [Flonase Nasal [place]] 2 spr EA NOSTRIL DAILY 02/11/19 [History] Potassium Chloride [Klor-Con 10] 10 meq PO BID 02/11/19 [History] amLODIPine [Norvasc] 10 mg PO DAILY 02/11/19 [History] Dicyclomine [Bentyl] 10 mg PO QID PRN #30 cap 02/13/19 [Rx] Pantoprazole [Protonix] 40 mg PO AC-BRKFST #30 tablet. 02/13/19 [Rx] Thiamine [Vitamin B-1] 100 mg PO DAILY #30 tab 02/13/19 [Rx] predniSONE 40 mg PO DAILY 2 Days #4 tab 02/13/19 [Rx] Follow up Appointment(s)/Referral(s): Davide العلي MD [Primary Care Provider] - 02/18/19 2:30 pm Unruly Howard MD [STAFF PHYSICIAN] - 02/20/19 9:15 am Patient Instructions/Handouts: Dicyclomine (By mouth), Prednisone (By mouth), Thiamine (By mouth), Pantoprazole (By mouth), COPD (Chronic Obstructive Pulmonary Disease) (DC), Abuse of Alcohol (DC), Alcohol Withdrawal (DC) Discharge Disposition: HOME SELF-CARE
== END 2019-02-13 14:05 | disposition home or self-care (01) ==
LOC: EC 07:37 → 3NMEDONC 10:37
PROVIDERS: ADMIT Internal Medicine; ATTEND Internal Medicine
DX: F10.229 Alcohol dependence with intoxication, unspecified (principal); Y90.8 Blood alcohol level of 240 mg/100 ml or more; R74.8 Abnormal levels of other serum enzymes; G89.29 Other chronic pain; R10.32 Left lower quadrant pain; R10.33 Periumbilical pain; R19.7 Diarrhea, unspecified; R14.0 Abdominal distension (gaseous); K92.1 Melena; K92.2 Gastrointestinal hemorrhage, unspecified; J44.1 Chronic obstructive pulmonary disease with (acute) exacerbation; R94.39 Abnormal result of other cardiovascular function study; F17.200 Nicotine dependence, unspecified, uncomplicated; I10 Essential (primary) hypertension; E78.5 Hyperlipidemia, unspecified; F41.9 Anxiety disorder, unspecified; E66.9 Obesity, unspecified; Z68.30 Body mass index [BMI] 30.0-30.9, adult; I25.2 Old myocardial infarction; G40.909 Epilepsy, unspecified, not intractable, without status epilepticus; Z90.49 Acquired absence of other specified parts of digestive tract; Z79.82 Long term (current) use of aspirin; Z79.899 Other long term (current) drug therapy; Z88.5 Allergy status to narcotic agent; Z88.7 Allergy status to serum and vaccine; Z80.9 Family history of malignant neoplasm, unspecified; Z82.49 Family history of ischemic heart disease and other diseases of the circulatory system
CPT/HCPCS: 96376 ×2; 96361 ×4; 96372 ×3; 96375 ×2; 96365; 99285; 36415; 94640 ×6; 93005; 80053; 80048; 85652; 82150; 82550; 82553; 83690; 83735; 85025 ×2; 86140; 81003; 83036; 71046; 74018; G0378 ×3; G0480; S4990 ×2; J2060; J1644 ×2; J2920; J2930; J3411; J2405; J3475; J7512; 80320

== ENCOUNTER 2019-07-26 17:38 | Emergency (ER) | payer OTHER ==
[2019-07-26] MEDS ORDERED: SODIUM CHLORIDE 0.9% 500 ML 500 ML IV STA (18:24)
--- NOTE | 2019-07-26 18:34 | ED ---
Neuro HPI - General Chief Complaint: Neuro Symptoms/Deficit Stated Complaint: rt sided weakness x 3 weeks Time Seen by Provider: 07/26/19 18:05 Source: patient, EMS Mode of arrival: EMS Limitations: no limitations - History of Present Illness Is the patient presenting with stroke symptoms?: Yes Initial Comments: 59-year-old female patient presents to the emergency department today for evaluation of right-sided weakness. Patient states that on July 10 she was walking into the kitchen when her right leg suddenly went numb and she fell. Patient states that she had residual right arm and right leg weakness since then. Patient states that she started to use her walker because ambulating was difficult. Patient states when she woke up around 0800 this morning her symptoms were much worse. Patient states she is unable to use her right arm. Was unable to write or grasp things. Patient states that she is now unable to lift her right leg. Patient denies any headache, blurred vision, or double vision. Denies any difficulty with speech. States that she has a hard time remembering things lately. Patient states that have history of hypertension, [place], and hyperlipidemia. Has family history of cardiac disease and CVA. Patient denies any recent rash, fever, chills, shortness breath, chest pain, abdominal pain, nausea, vomiting, diarrhea, constipation, back pain, hematuria, dysuria, urinary urgency, urinary frequency, or any other complaints. - Related Data Home Medications: Home Medications Medication Instructions Recorded Confirmed Albuterol Inhaler [Ventolin Hfa 1 - 2 puff INHALATION RT-Q6H PRN 02/11/19 02/11/19 Inhaler] Aspirin EC [Ecotrin Low Dose] 81 mg PO DAILY 02/11/19 02/11/19 Atorvastatin [Lipitor] 40 mg PO HS 02/11/19 02/11/19 Fluticasone Nasal [place] [Flonase 2 spr EA NOSTRIL DAILY 02/11/19 02/11/19 Nasal [place]] Potassium Chloride [Klor-Con 10] 10 meq PO BID 02/11/19 02/11/19 amLODIPine [Norvasc] 10 mg PO DAILY 02/11/19 02/11/19 Previous Rx's Medication Instructions Recorded Dicyclomine [Bentyl] 10 mg PO QID PRN #30 cap 02/13/19 Pantoprazole [Protonix] 40 mg PO AC-BRKFST #30 tablet. 02/13/19 Thiamine [Vitamin B-1] 100 mg PO DAILY #30 tab 02/13/19 predniSONE 40 mg PO DAILY 2 Days #4 tab 02/13/19 Allergies/Adverse Reactions: Allergies Allergy/AdvReac Type Severity Reaction Status Date / Time Influenza Virus Vaccines AdvReac Nausea & Verified 07/26/19 18:05 Vomiting morphine AdvReac Nausea & Verified 07/26/19 18:05 Vomiting Review of Systems ROS Statement: Those systems with pertinent positive or pertinent negative responses have been documented in the HPI. ROS Other: All systems not noted in ROS Statement are negative. General Exam Limitations: no limitations General appearance: alert, in no apparent distress, other (This is a well- developed, well-nourished adult female patient in no acute distress. Vital signs upon presentation are temperature 98.3F, pulse 86, respirations 18, blood pressure 119/80, pulse ox 97% on room air.) Eye exam: Present: normal appearance, PERRL, EOMI. Absent: scleral icterus, conjunctival injection, nystagmus, periorbital swelling ENT exam: Present: normal exam, normal oropharynx, mucous membranes moist Respiratory exam: Present: normal lung sounds bilaterally. Absent: respiratory distress, wheezes, rales, rhonchi, stridor Cardiovascular Exam: Present: regular rate, normal rhythm, normal heart sounds. Absent: systolic murmur, diastolic murmur, rubs, gallop, clicks GI/Abdominal exam: Present: soft, normal bowel sounds. Absent: distended, tenderness, guarding, rebound, rigid Extremities exam: Present: normal inspection, normal capillary refill, other (Skin to the extremities is pink, warm, dry. Cap refills less than 3 seconds. Radial pulses 2+ and equal bilaterally. Pedal pulses 2+ and equal bilaterally.). Absent: full ROM, tenderness, pedal edema, joint swelling, calf tenderness Neurological exam: Present: alert, oriented X3, CN II-XII intact Expanded Speech: Present: fluid speech Cranial nerves: EOM's Intact: Normal, Tongue Deviation: Normal, Nystagmus: Normal, Facial Sensation: Normal, Facial Palsy with Forehead Movement: Normal Upper motor neuron: Pronator Drift: Abnormal Right Sensory exam: Upper Extremity Light Touch: Normal, Upper Extremity Pin Prick: Abnormal Right, Lower Extremity Light Touch: Normal, Lower Extremity Pin Prick: Abnormal Right Motor strength exam: RUE: 2/1, LUE: 5, RLE: 2/1, LLE: 5 Eye Response: (4) open spontaneously Motor Response: (6) obeys commands Verbal Response: (5) oriented Psychiatric exam: Present: normal affect, normal mood Skin exam: Present: warm, dry, intact, normal color. Absent: rash Stroke MDM - Lab Data Result diagrams: 07/26/19 18:40 07/26/19 18:40 Lab Results 07/26/19 07/26/19 07/26/19 Range/Units 18:40 18:40 18:40 WBC 9.5 (3.8-10.6) k/uL RBC 4.08 (3.80-5.40) m/uL Hgb 12.3 (11.4-16.0) gm/dL Hct 36.6 (34.0-46.0) % MCV 89.7 (80.0-100.0) fL MCH 30.2 (25.0-35.0) pg MCHC 33.6 (31.0-37.0) g/dL RDW 20.1 H (11.5-15.5) % Plt Count 182 (150-450) k/uL Neutrophils % 62 % Lymphocytes % 26 % Monocytes % 5 % Eosinophils % 3 % Basophils % 2 % Neutrophils # 5.9 (1.3-7.7) k/uL Lymphocytes # 2.5 (1.0-4.8) k/uL Monocytes # 0.4 (0-1.0) k/uL Eosinophils # 0.2 (0-0.7) k/uL Basophils # 0.1 (0-0.2) k/uL Anisocytosis Moderate PT 10.2 (9.0-12.0) sec INR 0.9 (<1.2) APTT 24.0 (22.0-30.0) sec Sodium 133 L (137-145) mmol/L Potassium 4.5 (3.5-5.1) mmol/L Chloride 95 L (98-107) mmol/L Carbon Dioxide 23 (22-30) mmol/L Anion Gap 15 mmol/L BUN 3 L (7-17) mg/dL Creatinine 0.46 L (0.52-1.04) mg/dL Est GFR (CKD-EPI)AfAm >90 (>60 ml/min/1.73 sqM) Est GFR (CKD-EPI)NonAf >90 (>60 ml/min/1.73 sqM) Glucose 108 H (74-99) mg/dL POC Glucose (mg/dL) (75-99) mg/dL POC Glu Supervisor Inspecting ID Calcium 8.6 (8.4-10.2) mg/dL Total Bilirubin 0.6 (0.2-1.3) mg/dL AST 96 H (14-36) U/L ALT 55 H (9-52) U/L Alkaline Phosphatase 126 (38-126) U/L Troponin I (0.000-0.034) ng/mL Total Protein 7.1 (6.3-8.2) g/dL Albumin 3.8 (3.5-5.0) g/dL Serum Alcohol 162 mg/dL 07/26/19 07/26/19 Range/Units 18:40 18:41 WBC (3.8-10.6) k/uL RBC (3.80-5.40) m/uL Hgb (11.4-16.0) gm/dL Hct (34.0-46.0) % MCV (80.0-100.0) fL MCH (25.0-35.0) pg MCHC (31.0-37.0) g/dL RDW (11.5-15.5) % Plt Count (150-450) k/uL Neutrophils % % Lymphocytes % % Monocytes % % Eosinophils % % Basophils % % Neutrophils # (1.3-7.7) k/uL Lymphocytes # (1.0-4.8) k/uL Monocytes # (0-1.0) k/uL Eosinophils # (0-0.7) k/uL Basophils # (0-0.2) k/uL Anisocytosis PT (9.0-12.0) sec INR (<1.2) APTT (22.0-30.0) sec Sodium (137-145) mmol/L Potassium (3.5-5.1) mmol/L Chloride (98-107) mmol/L Carbon Dioxide (22-30) mmol/L Anion Gap mmol/L BUN (7-17) mg/dL Creatinine (0.52-1.04) mg/dL Est GFR (CKD-EPI)AfAm (>60 ml/min/1.73 sqM) Est GFR (CKD-EPI)NonAf (>60 ml/min/1.73 sqM) Glucose (74-99) mg/dL POC Glucose (mg/dL) 109 H (75-99) mg/dL POC Glu Supervisor Inspecting Tonny Yung Calcium (8.4-10.2) mg/dL Total Bilirubin (0.2-1.3) mg/dL AST (14-36) U/L ALT (9-52) U/L Alkaline Phosphatase (38-126) U/L Troponin I 0.041 H* (0.000-0.034) ng/mL Total Protein (6.3-8.2) g/dL Albumin (3.5-5.0) g/dL Serum Alcohol mg/dL - NIH Stroke Scale 1a. Level of Consciousness: (0) alert 1b. LOC Questions: (0) answers correctly 1c. LOC Commands: (0) performs tasks correctly 2. Best Gaze: (0) normal 3. Visual: (0) no visual loss 4. Facial Palsy: (0) normal symmetrical movement 5a. Motor Arm Left: (0) no drift 5b. Motor Arm Right: (3) no gravity effort 6a. Motor Leg Left: (0) no drift 6b. Motor Leg Right: (3) no gravity effort 7. Limb Ataxia: (0) absent 8. Sensory: (1) mild/moderate sensory loss 9. Best Language: (0) no aphasia 10. Dysarthria: (0) normal 11. Extinction/Inattention: (0) no abnormality NIH Score total: 7 - Medical Decision Making 59-year-old female patient presented to the emergency department today for evaluation of right-sided weakness 3 weeks, worsening this morning. Physical examination did reveal weakness to the right arm and right leg. NIH was 7 while here in the emergency department. Labs reviewed and did reveal elevated alcohol level at 162. She denies elevated troponin at 0.041. EKG showed chronic ischemic changes. Patient does not have chest pain at this time. Vital signs are satisfactory with normal blood pressure. The case was discussed with Dr. Queen the neurointerventionalist at [facility]. He did review imaging. He recommends transfer to [facility] for further evaluation. We did give loading doses of Lipitor 80mg, Plavix 300mg, and ASA 325mg. IV fliuds given. Did dis cuss findings, results, and plan with the patient. She is agreeable. - EKG Data -: EKG Interpreted by Me 07/26/19 20:31 EKG obtained at 1832 shows normal sinus rhythm with a ventricular rate of 83, W[place] interval 126, QRS duration 90, QT 418, QTC 491. There is evidence for T-wave inversion in V4 V5 and lead 2. There is some ST depression in V4 and V5. I did review EKG from February 2019 which showed similar type changes. Past Medical History Past Medical History: Asthma, Myocardial Infarction ([place]), Seizure Disorder Additional Past Medical History / Comment(s): DDD Last Myocardial Infarction Date:: aug 2018 History of Any Multi-Drug Resistant Organisms: None Reported Past Surgical History: Cholecystectomy, Joint Replacement, Orthopedic Surgery Additional Past Surgical History / Comment(s): bartholin gland cyst removal Past Anesthesia/Blood Transfusion Reactions: No Reported Reaction Past Psychological History: No Psychological Hx Reported, Depression Smoking Status: Current every day smoker Past Alcohol Use History: Abuse, Heavy Past Drug Use History: Marijuana - Past Family History Mother Family Medical History: Cancer, Congestive Heart Failure (CHF), Coronary Artery Disease (CAD), Hyperlipidemia Father Family Medical History: Cancer, COPD Course Vital Signs 07/26/19 07/26/19 07/26/19 17:56 18:10 18:25 Temperature 98.3 F Pulse Rate 86 85 88 Respiratory 18 18 17 Rate Blood Pressure 119/80 123/89 130/88 O2 Sat by Pulse 97 97 96 Oximetry 07/26/19 07/26/19 07/26/19 18:40 18:55 19:20 Temperature 98.2 F Pulse Rate 89 88 87 Respiratory 16 18 18 Rate Blood Pressure 137/78 140/94 121/82 O2 Sat by Pulse 97 95 95 Oximetry 07/26/19 19:50 Temperature Pulse Rate 87 Respiratory 16 Rate Blood Pressure 115/81 O2 Sat by Pulse 97 Oximetry - Reevaluation(s) Reevaluation #1: 07/26/19 18:[address] brain without contrast and CT head neck angiography was ordered. Reevaluation #2: 07/26/19 07/26/19 184 Discussed the case with Neuro-interventionalist Dr. Jones. He recommended obtaii Reevaluation #3: 07/26/19 20:28 Discuss the case again with Dr. Queen from [facility]. Informed him of CT results, he did review these. He recommends transfer to [facility] for emergent evaluation and possible carotid endarterectomy. I did discuss findings and results with the patient. She is agreeable for the transfer. We will give 325 mg of aspirin, 80 mg of Lipitor, and 300 mg of Plavix. We will also give IV fluid bolus. Critical Care Time Critical Care Time: Yes Total Critical Care Time: 50 Critical Care Time: Review of results including CT imaging, Lab results, and EKG interpretation. Interpreted cardiac monitoring strips and vital signs. Discussion with and evaluation of patient. Discussion with consulting neurointerventionalist and attending ER physician. Disposition Clinical Impression: CVA (cerebral vascular accident), Carotid stenosis, Alcohol intoxication Disposition: ADMITTED IP TO THIS HOSP Condition: Serious Referrals: Davide العلي MD [Primary Care Provider] - 1-2 days - Out of Hospital Transfer - Req. Specs Out of Hospital Transfer - Requested Specifics: Neurological ICU ([facility])
[2019-07-26 18:47] LABS: Glucose,Whole Blood 109 mg/dL (75-99)
[2019-07-26 19:02] LABS: Anisocytosis Moderate; Basophils # (A) 0.1 k/uL (0-0.2); Basophils % (A) 2 %; Eosinophils # (A) 0.2 k/uL (0-0.7); Eosinophils % (A) 3 %; HCT 36.6 % (34.0-46.0); HGB 12.3 gm/dL (11.4-16.0); Lymphocytes # (A) 2.5 k/uL (1.0-4.8); Lymphocytes % (A) 26 %; MCH 30.2 pg (25.0-35.0); MCHC 33.6 g/dL (31.0-37.0); MCV 89.7 fL (80.0-100.0); Mean Platelet Volume 7.4; Monocytes # (A) 0.4 k/uL (0-1.0); Monocytes % (A) 5 %; Neutrophils # (A) 5.9 k/uL (1.3-7.7); Neutrophils % (A) 62 %; Platelet Count 182 k/uL (150-450); RBC 4.08 m/uL (3.80-5.40); RDW 20.1 % (11.5-15.5); WBC 9.5 k/uL (3.8-10.6)
[2019-07-26 19:07] VITALS: TEMP 98.2
[2019-07-26 19:13] LABS: INR 0.9 (<1.2); Prothrombin Time 10.2 sec (9.0-12.0)
[2019-07-26 19:17] LABS: ALT 55 U/L (9-52); AST 96 U/L (14-36); African American GFR (CKD) >90 (>60 ml/min/1.73 sqM); Albumin 3.8 g/dL (3.5-5.0); Alkaline Phosphatase 126 U/L (38-126); Anion Gap 15 mmol/L; Blood Urea Nitrogen 3 mg/dL (7-17); Calcium 8.6 mg/dL (8.4-10.2); Carbon Dioxide 23 mmol/L (22-30); Chloride 95 mmol/L (98-107); Glucose 108 mg/dL (74-99); Sodium 133 mmol/L (137-145); Total Bilirubin 0.6 mg/dL (0.2-1.3); Total Protein 7.1 g/dL (6.3-8.2)
[2019-07-26 19:19] LABS: Alcohol 162 mg/dL
[2019-07-26 19:20] LABS: Potassium 4.5 mmol/L (3.5-5.1)
--- NOTE | 2019-07-26 19:21 | CT ---
EXAMINATION TYPE: CT brain wo con DATE OF EXAM: 07/26/2019 COMPARISON: None HISTORY: 51-year-old female Right sided weakness x 2 weeks. TECHNIQUE: Examination was done in axial plane without intravenous contrast. Coronal and sagittal r econstructions performed. CT DLP: unavailable Automated exposure control for dose reduction was used. FINDINGS: 1 cm round density lesion in the region of the foramen of Yu, anterior roof of the third ventricl e. No significant cephalization is seen. Focal hypodensity anterior left parietal lobe. Patchy white matter hypodensities, left greater right. No evidence otherwise for acute intracranial hemorrhage, mass effect, midline shift, or extra-axial f luid collection. No hydrocephalus. No effacement of basal subarachnoid cisterns. Scattered mild mucosal thickening left ethmoid air cells and small mucosal retention cyst medial wall of the left maxillary sinus. Mastoid air cells are well pneumatized. Orbits and globes are intact. IMPRESSION: 1. A 1 cm hyperdense colloid cyst in the region of the foramen of Yu. Note that this has been ass ociated with positional life-threatening hydrocephalus. No hydrocephalus at this time. 2. Moderate patchy changes of chronic small vessel ischemic disease particularly in the left cerebral hemisphere. 3. More focal area of cortical/subcortical hypodensity anterior left parietal lobe could represent an area of subacute infarct given weakness for 2 weeks.
--- NOTE | 2019-07-26 19:31 | CT ---
EXAMINATION TYPE: CT angio head neck DATE OF EXAM: 07/26/2019 COMPARISON: Brain same day HISTORY: 59-year-old female Right sided weakness x 2 weeks. TECHNIQUE: Contiguous axial scanning of the head and neck performed with IV Contrast, patient injecte d with 50 mL of Isovue 370. Coronal/sagittal MIP reconstructions performed. 3-D reconstructions gener ated on a dedicated independent workstation. CT DLP: 1503.7 mGycm Automated exposure control for dose reduction was used. FINDINGS: Neck: Mild atherosclerotic arch calcifications. Variant direct takeoff of the left vertebral artery directl y from the aortic arch. The proximal left vertebral artery has moderate metastatic calcification just after its origin. The r ight vertebral artery is dominant but both are otherwise patent throughout the course. Right common carotid artery is patent. Moderate atelectatic change at the right carotid bifurcation r esults in mild, less than 50% narrowing of the proximal right ICA. Left common carotid artery shows mild atherosclerotic narrowing at its origin with moderate to severe atherosclerotic change at the bifurcation. This results in a severe, 90% stenosis at the proximal ca rotid bulb. The bifurcation is located 3.0 cm below the angle of the mandible. Head: Moderate atherosclerotic narrowing within the bilateral carotid siphons. The left vertebral artery is nondominant. Both vertebral and basilar arteries otherwise remain patent . No large vessel intracranial arterial occlusion or aneurysmal changes seen. IMPRESSION: NECK: 1. Severe, 90% stenosis at the proximal left ICA. The left bifurcation is located 3 cm below the angl e of the mandible. 2. Mild, less than 50% narrowing proximal right ICA. 3. Dominant right vertebral artery. The left vertebral artery has variant direct takeoff from the aor tic arch. HEAD: 1. Moderate atherosclerotic narrowing within the bilateral carotid siphons. 2. No large vessel intracranial arterial occlusion or aneurysmal change seen.
[2019-07-26] MEDS ORDERED: CLOPIDOGREL 75 MG TAB PO STA (20:27)
[2019-07-26] MEDS ORDERED: ATORVASTATIN 80 MG TAB PO STA (20:28)
[2019-07-26] MEDS ORDERED: SODIUM CHLORIDE 0.9% 1,000 ML IV ONE (20:28)
[2019-07-26] MEDS ORDERED: ASPIRIN 325 MG TAB PO STA (20:28)
--- NOTE | 2019-07-26 20:29 | XR ---
EXAMINATION TYPE: XR chest 2V DATE OF EXAM: 07/26/2019 COMPARISON: 02/11/2019 HISTORY: 51 year-old female altered mental status, confusion, right-sided weakness TECHNIQUE: PA and lateral views FINDINGS: Heart normal size. Aorta and pulmonary vasculature within normal limits. Some strandy lower lung atel ectasis. No consolidation or pleural effusion. IMPRESSION: No acute cardiopulmonary process.
[2019-07-26 20:44] VITALS: RESP 18
[2019-07-26 22:01] VITALS: BP 132/90; PULSE 87
== END 2019-07-26 22:10 | disposition other institution (70) ==
LOC: EC 17:38
DX: I63.9 Cerebral infarction, unspecified (principal); F10.129 Alcohol abuse with intoxication, unspecified; I65.23 Occlusion and stenosis of bilateral carotid arteries; R29.707 NIHSS score 7; G51.0 Bell's palsy; I10 Essential (primary) hypertension; E78.5 Hyperlipidemia, unspecified; F17.200 Nicotine dependence, unspecified, uncomplicated; J45.909 Unspecified asthma, uncomplicated; I25.2 Old myocardial infarction; I99.8 Other disorder of circulatory system; Z79.82 Long term (current) use of aspirin; Z79.51 Long term (current) use of inhaled steroids; Z79.899 Other long term (current) drug therapy; Z88.5 Allergy status to narcotic agent; Z88.7 Allergy status to serum and vaccine; Z82.49 Family history of ischemic heart disease and other diseases of the circulatory system; Z82.3 Family history of stroke
CPT/HCPCS: 36415; 93005; 80053; 84484; 85025; 85610; 85730; 71046; 70496; 70450; 70498; 99291; 96360; 96361 ×2; G0480; Q9967; 80320

== ENCOUNTER 2019-08-05 13:34 | Observation (INO) | payer OTHER ==
[2019-08-05] MEDS ORDERED: SODIUM CHLORIDE 0.9% 1,000 ML IV STA (14:09)
--- NOTE | 2019-08-05 14:45 | ED ---
Neuro HPI - General Chief Complaint: Neuro Symptoms/Deficit Stated Complaint: weakness Time Seen by Provider: 08/05/19 14:00 Source: patient, RN notes reviewed, old records reviewed Mode of arrival: EMS Limitations: no limitations - History of Present Illness Is the patient presenting with stroke symptoms?: Yes -: days(s) Initial Comments: This is a 51-year-old female of recent CVA coming in for evaluation regarding right-sided weakness. Patient had some dragging of her right foot that persisted throughout the day. Patient denies headache. No recent traumas. No fevers cough or congestion. Patient is has not started all medication as scheduled to have her prescriptions filled today, patient was also is expecting to have home health care as well. Patient herself again denies trauma. And is complaining of the right-sided leg weakness. She also complains of trouble walking secondary right leg weakness which is something that she did develop during her prior CVA but it did improve and she also some mild slurred speech Location: speech, right leg History of same: Yes Place: home Severity: mild Quality: weak Improves With: none Worsens With: none On Anticoagulants: Yes Context: gradual onset (R yesterday) Associated Symptoms: denies other symptoms Treatments Prior to Arrival: none - Related Data Home Medications: Home Medications Medication Instructions Recorded Confirmed Aspirin EC [Ecotrin Low Dose] 81 mg PO DAILY 02/11/19 08/05/19 Fluticasone Nasal [place] [Flonase 2 spr EA NOSTRIL DAILY 02/11/19 08/05/19 Nasal [place]] Potassium Chloride [Klor-Con 10] 10 meq PO BID 02/11/19 08/05/19 Atorvastatin Calcium [Lipitor] 80 mg PO HS 08/05/19 08/05/19 Ibuprofen [Motrin] 600 mg PO Q8HR PRN 08/05/19 08/05/19 Isosorbide Mononitrate ER [Imdur] 30 mg PO DAILY 08/05/19 08/05/19 Midodrine [ProAmatine] 5 mg PO TID PRN 08/05/19 08/05/19 Multivitamins, Thera [Multivitamin 1 tab PO DAILY 08/05/19 08/05/19 (formulary)] Ondansetron [Zofran] 4 mg PO Q8HR PRN 08/05/19 08/05/19 Ticagrelor [Brilinta] 90 mg PO BID 08/05/19 08/05/19 amLODIPine [Norvasc] 5 mg PO DAILY 08/05/19 08/05/19 Previous Rx's Medication Instructions Recorded Pantoprazole [Protonix] 40 mg PO AC-BRKFST #30 tablet. 02/13/19 Allergies/Adverse Reactions: Allergies Allergy/AdvReac Type Severity Reaction Status Date / Time Influenza Virus Vaccines AdvReac Nausea & Verified 08/05/19 14:31 Vomiting morphine AdvReac Nausea & Verified 08/05/19 14:31 Vomiting Review of Systems ROS Statement: Those systems with pertinent positive or pertinent negative responses have been documented in the HPI. ROS Other: All systems not noted in ROS Statement are negative. General Exam - General Exam Comments Initial Comments: NIH of 2 Limitations: no limitations General appearance: alert, in no apparent distress Head exam: Present: atraumatic, normocephalic, normal inspection Eye exam: Present: normal appearance, PERRL, EOMI. Absent: scleral icterus, con junctival injection, periorbital swelling ENT exam: Present: normal exam, mucous membranes moist Neck exam: Present: normal inspection. Absent: tenderness, meningismus, lymphadenopathy Respiratory exam: Present: normal lung sounds bilaterally. Absent: respiratory distress, wheezes, rales, rhonchi, stridor Cardiovascular Exam: Present: regular rate, normal rhythm, normal heart sounds. Absent: systolic murmur, diastolic murmur, rubs, gallop, clicks GI/Abdominal exam: Present: soft, normal bowel sounds. Absent: distended, tenderness, guarding, rebound, rigid Extremities exam: Present: normal inspection, full ROM, normal capillary refill. Absent: tenderness, pedal edema, joint swelling, calf tenderness Back exam: Present: normal inspection Neurological exam: Present: alert, oriented X3, CN II-XII intact Psychiatric exam: Present: normal affect, normal mood Skin exam: Present: warm, dry, intact, normal color. Absent: rash Stroke MDM - Lab Data Result diagrams: 08/05/19 14:26 08/05/19 14:26 Lab Results 08/05/19 08/05/19 08/05/19 Range/Units 14:26 14:26 14:26 WBC 13.4 H (3.8-10.6) k/uL RBC 3.69 L (3.80-5.40) m/uL Hgb 10.6 L (11.4-16.0) gm/dL Hct 33.5 L (34.0-46.0) % MCV 90.7 (80.0-100.0) fL MCH 28.6 (25.0-35.0) pg MCHC 31.6 (31.0-37.0) g/dL RDW 21.5 H (11.5-15.5) % Plt Count 439 D (150-450) k/uL Neutrophils % 71 % Lymphocytes % 16 % Monocytes % 6 % Eosinophils % 2 % Basophils % 2 % Neutrophils # 9.5 H (1.3-7.7) k/uL Lymphocytes # 2.2 (1.0-4.8) k/uL Monocytes # 0.8 (0-1.0) k/uL Eosinophils # 0.3 (0-0.7) k/uL Basophils # 0.2 (0-0.2) k/uL Hypochromasia Moderate Anisocytosis Moderate Macrocytosis Slight PT 9.6 (9.0-12.0) sec INR 0.9 (<1.2) APTT 24.1 (22.0-30.0) sec Sodium 139 (137-145) mmol/L Potassium 3.6 (3.5-5.1) mmol/L Chloride 102 (98-107) mmol/L Carbon Dioxide 22 (22-30) mmol/L Anion Gap 15 mmol/L BUN 2 L (7-17) mg/dL Creatinine 0.47 L (0.52-1.04) mg/dL Est GFR (CKD-EPI)AfAm >90 (>60 ml/min/1.73 sqM) Est GFR (CKD-EPI)NonAf >90 (>60 ml/min/1.73 sqM) Glucose 97 (74-99) mg/dL Calcium 8.6 (8.4-10.2) mg/dL Total Bilirubin 0.2 (0.2-1.3) mg/dL AST 115 H (14-36) U/L ALT 73 H (9-52) U/L Alkaline Phosphatase 131 H (38-126) U/L Creatine Kinase 52 (30-135) U/L Troponin I (0.000-0.034) ng/mL Total Protein 6.4 (6.3-8.2) g/dL Albumin 3.6 (3.5-5.0) g/dL Urine Color Urine Appearance (Clear) Urine pH (5.0-8.0) Ur Specific [place] (1.001-1.035) Urine Protein (Negative) Urine Glucose (UA) (Negative) Urine Ketones (Negative) Urine Blood (Negative) Urine Nitrite (Negative) Urine Bilirubin (Negative) Urine Urobilinogen (<2.0) mg/dL Ur Leukocyte Esterase (Negative) 08/05/19 08/05/19 Range/Units 14:26 15:03 WBC (3.8-10.6) k/uL RBC (3.80-5.40) m/uL Hgb (11.4-16.0) gm/dL Hct (34.0-46.0) % MCV (80.0-100.0) fL MCH (25.0-35.0) pg MCHC (31.0-37.0) g/dL RDW (11.5-15.5) % Plt Count (150-450) k/uL Neutrophils % % Lymphocytes % % Monocytes % % Eosinophils % % Basophils % % Neutrophils # (1.3-7.7) k/uL Lymphocytes # (1.0-4.8) k/uL Monocytes # (0-1.0) k/uL Eosinophils # (0-0.7) k/uL Basophils # (0-0.2) k/uL Hypochromasia Anisocytosis Macrocytosis PT (9.0-12.0) sec INR (<1.2) APTT (22.0-30.0) sec Sodium (137-145) mmol/L Potassium (3.5-5.1) mmol/L Chloride (98-107) mmol/L Carbon Dioxide (22-30) mmol/L Anion Gap mmol/L BUN (7-17) mg/dL Creatinine (0.52-1.04) mg/dL Est GFR (CKD-EPI)AfAm (>60 ml/min/1.73 sqM) Est GFR (CKD-EPI)NonAf (>60 ml/min/1.73 sqM) Glucose (74-99) mg/dL Calcium (8.4-10.2) mg/dL Total Bilirubin (0.2-1.3) mg/dL AST (14-36) U/L ALT (9-52) U/L Alkaline Phosphatase (38-126) U/L Creatine Kinase (30-135) U/L Troponin I <0.012 (0.000-0.034) ng/mL Total Protein (6.3-8.2) g/dL Albumin (3.5-5.0) g/dL Urine Color Colorless Urine Appearance Clear (Clear) Urine pH 5.5 (5.0-8.0) Ur Specific [place] 1.001 (1.001-1.035) Urine Protein Negative (Negative) Urine Glucose (UA) Negative (Negative) Urine Ketones Negative (Negative) Urine Blood Negative (Negative) Urine Nitrite Negative (Negative) Urine Bilirubin Negative (Negative) Urine Urobilinogen <2.0 (<2.0) mg/dL Ur Leukocyte Esterase Negative (Negative) - NIH Stroke Scale 1a. Level of Consciousness: (0) alert 1b. LOC Questions: (0) answers correctly 1c. LOC Commands: (0) performs tasks correctly 2. Best Gaze: (0) normal 3. Visual: (0) no visual loss 4. Facial Palsy: (0) normal symmetrical movement 5a. Motor Arm Left: (0) no drift 5b. Motor Arm Right: (0) no drift 6a. Motor Leg Left: (0) no drift 6b. Motor Leg Right: (1) drift 7. Limb Ataxia: (0) absent 8. Sensory: (0) normal 9. Best Language: (0) no aphasia 10. Dysarthria: (1) mild/moderate dysarthria 11. Extinction/Inattention: (0) no abnormality - Thrombolytic Inclusion/Exclusion Thrombolytic Exclusion Criteria: Symptom Onset > 4.5 Hours - Radiology Data Radiology results: report reviewed (CT brain and chest x-ray are negative for acute disease), image reviewed - EKG Data -: EKG Interpreted by Me (EKG shows sinus rhythm rate of 87, [place] 124, QRS 82, QTc 470) Past Medical History Past Medical History: Asthma, CVA/TIA, Myocardial Infarction ([place]), Seizure Disorder Additional Past Medical History / Comment(s): DDD Last Myocardial Infarction Date:: aug 2018 History of Any Multi-Drug Resistant Organisms: None Reported Past Surgical History: Cholecystectomy, Joint Replacement, Orthopedic Surgery Additional Past Surgical History / Comment(s): bartholin gland cyst removal, stent placed Past Anesthesia/Blood Transfusion Reactions: No Reported Reaction Past Psychological History: No Psychological Hx Reported, Depression Smoking Status: Current every day smoker Past Alcohol Use History: Abuse, Heavy Past Drug Use History: Marijuana - Past Family History Mother Family Medical History: Cancer, Congestive Heart Failure (CHF), Coronary Artery Disease (CAD), Hyperlipidemia Father Family Medical History: Cancer, COPD Course Vital Signs 08/05/19 08/05/19 08/05/19 13:43 14:00 14:30 Temperature 98.6 F Pulse Rate 89 85 90 Respiratory 16 16 18 Rate Blood Pressure 124/85 124/85 103/80 O2 Sat by Pulse 98 95 96 Oximetry 08/05/19 08/05/19 15:00 15:30 Temperature Pulse Rate 88 87 Respiratory 16 11 L Rate Blood Pressure 126/84 111/80 O2 Sat by Pulse 95 97 Oximetry - Reevaluation(s) Reevaluation #1: 08/05/19 17:33 Records reviewed Reevaluation #2: 08/05/19 17:33 Does have mild improvement in symptoms continuously - Consultations Consultation #1: Spoke with Dr. Naqvi is agreeable for admission Disposition Clinical Impression: Transient cerebral ischemia, CVA (cerebral vascular accident) Disposition: ADMITTED IP TO THIS HOSP Condition: Good Is patient prescribed a controlled substance at d/c from ED?: No Referrals: Davide العلي MD [Primary Care Provider] - 1-2 days
[2019-08-05 15:05] LABS: ALT 73 U/L (9-52); AST 115 U/L (14-36); African American GFR (CKD) >90 (>60 ml/min/1.73 sqM); Albumin 3.6 g/dL (3.5-5.0); Alkaline Phosphatase 131 U/L (38-126); Anion Gap 15 mmol/L; Blood Urea Nitrogen 2 mg/dL (7-17); Calcium 8.6 mg/dL (8.4-10.2); Carbon Dioxide 22 mmol/L (22-30); Chloride 102 mmol/L (98-107); Creatine Kinase 52 U/L (30-135); Glucose 97 mg/dL (74-99); INR 0.9 (<1.2); Partial Thromboplastin Time 24.1 sec (22.0-30.0); Potassium 3.6 mmol/L (3.5-5.1); Prothrombin Time 9.6 sec (9.0-12.0); Sodium 139 mmol/L (137-145); Total Bilirubin 0.2 mg/dL (0.2-1.3); Total Protein 6.4 g/dL (6.3-8.2)
[2019-08-05 15:06] LABS: Anisocytosis Moderate; Basophils # (A) 0.2 k/uL (0-0.2); Basophils % (A) 2 %; Eosinophils # (A) 0.3 k/uL (0-0.7); Eosinophils % (A) 2 %; HCT 33.5 % (34.0-46.0); HGB 10.6 gm/dL (11.4-16.0); Hypochromasia Moderate; Lymphocytes # (A) 2.2 k/uL (1.0-4.8); Lymphocytes % (A) 16 %; MCH 28.6 pg (25.0-35.0); MCHC 31.6 g/dL (31.0-37.0); MCV 90.7 fL (80.0-100.0); Macrocytosis Slight; Mean Platelet Volume 7.4; Monocytes # (A) 0.8 k/uL (0-1.0); Monocytes % (A) 6 %; Neutrophils # (A) 9.5 k/uL (1.3-7.7); Neutrophils % (A) 71 %; RBC 3.69 m/uL (3.80-5.40); RDW 21.5 % (11.5-15.5); WBC 13.4 k/uL (3.8-10.6)
[2019-08-05 15:13] LABS: Platelet Count 439 k/uL (150-450)
[2019-08-05 15:18] LABS: Appearance,Urine Clear (Clear); Bilirubin,Urine Negative (Negative); Blood,Urine Negative (Negative); Color,Urine Colorless; Glucose,Urine (UA) Negative (Negative); Ketones,Urine Negative (Negative); Leukocyte Esterase,Urine Negative (Negative); Nitrite,Urine Negative (Negative); PH, Urine 5.5 (5.0-8.0); Protein,Urine Negative (Negative); Specific Gravity,Urine 1.001 (1.001-1.035); Urobilinogen,Urine <2.0 mg/dL (<2.0)
--- NOTE | 2019-08-05 15:31 | XR ---
EXAMINATION TYPE: XR chest 2V DATE OF EXAM: 08/05/2019 COMPARISON: 07/26/2019 HISTORY: Altered mental status TECHNIQUE: Frontal and lateral views of the chest are obtained. FINDINGS: Patient body habitus partially obscures the lower lungs on the frontal view however lungs a ppear clear on the lateral view. There is no focal air space opacity, pleural effusion, or pneumotho rax seen. The cardiac silhouette size is within normal limits. The osseous structures are intact. Cholecystitis clips are noted. IMPRESSION: No acute cardiopulmonary process.
--- NOTE | 2019-08-05 16:25 | CT ---
EXAMINATION TYPE: CT brain wo con DATE OF EXAM: 08/05/2019 COMPARISON: 07/26/2019 HISTORY: 59-year-old female right leg weakness TECHNIQUE: Examination was done in axial plane without intravenous contrast. Coronal and sagittal r econstructions performed. CT DLP: 1043.4 mGycm Automated exposure control for dose reduction was used. FINDINGS: There is no evidence of acute intracranial hemorrhage, acute ischemic changes, mass effect, or extra -axial fluid collection. There is no effacement of cerebral sulci or basal subarachnoid cisterns. Th ere is no midline shift. [place]-white matter distinction is preserved. Redemonstrated 1 cm hyperdense colloid cyst in the region of the foramen of Yu. No hydrocephalus. Mild generalized supratentorial volume loss and moderate patchy white matter hypodensities, left gre ater than right. Scattered mild mucosal thickening left ethmoid air cells. Mastoid air cells well pneumatized. Orbits and globes are intact. IMPRESSION: 1. 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 Note that these are associated w ith positional life-threatening hydrocephalus. However, there is no hydrocephalus at this time. 2. Mild generalized atrophy and moderate patchy changes of chronic small vessel ischemic disease, lef t greater than right, unchanged from 07/26/2019. 3. If symptoms persist, follow-up CT or MRI.
[2019-08-05] MEDS ORDERED: ASPIRIN 325 MG TAB PO STA (17:27)
[2019-08-05] MEDS: SODIUM CHLORIDE 0.9% 1,000 ML IV SCH (19:01)
--- NOTE | 2019-08-05 19:32 | CT ---
EXAMINATION TYPE: CT angio head neck with contrast and with 3-D reconstruction renderings DATE OF EXAM: 08/05/2019 HISTORY: Right leg weakness. COMPARISON: CT head without contrast 08/05/2019 at 4:07 PM and 07/26/[address] DLP: 448.2 mGycm. Automated Exposure Control for Dose Reduction was Utilized. TECHNIQUE: CTA scan of the neck is performed with IV Contrast, patient injected with 65 mL of Isovue 370, axial images are obtained, coronal and sagittal reformatted images are reviewed. Three-D recons tructed images are created on an independent workstation and reviewed. FINDINGS: The left carotid stent is noted and the lumen within is patent. There is a mid stent approximately 40% short-segment luminal narrowing present. Distal to the stent t he left ICA is widely patent. The remainder of the bilateral carotid systems are patent and unremarkable other than the approximate ly 40% right ICA luminal diameter narrowing seen on the prior CTA. Bilateral vertebral arterial systems are widely patent throughout the neck. No acute soft tissue neck process. Cervical spine unremarkable. The intracranial anterior and posterior are widely patent bilaterally. There is no evidence of acute intracranial process. Other: No incidental findings. IMPRESSION: No acute process.
--- NOTE | 2019-08-05 20:52 | P.CNNES ---
History of Present Illness Consult date: 08/05/19 Requesting physician: John Motley Reason for Consult: TIA Chief complaint: RLE pain and weakness History of Present Illness: This is a 59 RH female h/o LICA >90% stenosis s/p stenting just earlier this month at [facility]. She is on dual antiplatelet therapy with aspirin and ticagrelor and statin therapy. She initially presented with right-sided weakness. At the time, she had RU&LE weakness. This time, she c/o dragging her RLE, but also she c/o severe pain in the right lateral hip with radiation to the knee. She states she does have degenerative disease in her lumbar spine. She is not keen on taking regular meds but instead self-medicates with marijuana and alcohol at night so she can have a few hours of sleep. Her RUE is fine this time. Denies any other focal neuro symptoms such as diplopia, amaurosis, facial numbness or droop, vertigo, dysarthria, dysphagia, aphasia, other focal numbness/weakness not mentioned above, tremors, bowel/bladder incontinence or ataxia. She states if I can't fix her tonight she would rather go home and sleep in her own bed. Review of Systems I have performed a 14-point organ ROS with patient; pertinents are as per HPI. Past Medical History Past Medical History: Asthma, CVA/TIA, Myocardial Infarction ([place]), Seizure Disorder Additional Past Medical History / Comment(s): DDD Last Myocardial Infarction Date:: aug 2018 History of Any Multi-Drug Resistant Organisms: None Reported Past Surgical History: Cholecystectomy, Joint Replacement, Orthopedic Surgery Additional Past Surgical History / Comment(s): bartholin gland cyst removal, stent placed Past Anesthesia/Blood Transfusion Reactions: No Reported Reaction Past Psychological History: No Psychological Hx Reported, Depression Smoking Status: Current every day smoker Past Alcohol Use History: Abuse, Heavy Past Drug Use History: Marijuana - Past Family History Mother Family Medical History: Cancer, Congestive Heart Failure (CHF), Coronary Artery Disease (CAD), Hyperlipidemia Father Family Medical History: Cancer, COPD Medications and Allergies Home Medications Medication Instructions Recorded Confirmed Type Aspirin EC [Ecotrin Low Dose] 81 mg PO DAILY 02/11/19 08/05/19 History Fluticasone Nasal [place] [Flonase 2 spr EA NOSTRIL DAILY 02/11/19 08/05/19 History Nasal [place]] Potassium Chloride [Klor-Con 10] 10 meq PO BID 02/11/19 08/05/19 History Pantoprazole [Protonix] 40 mg PO AC-BRKFST #30 tablet. 02/13/19 08/05/19 Rx Atorvastatin Calcium [Lipitor] 80 mg PO HS 08/05/19 08/05/19 History Ibuprofen [Motrin] 600 mg PO Q8HR PRN 08/05/19 08/05/19 History Isosorbide Mononitrate ER [Imdur] 30 mg PO DAILY 08/05/19 08/05/19 History Midodrine [ProAmatine] 5 mg PO TID PRN 08/05/19 08/05/19 History Multivitamins, Thera [Multivitamin 1 tab PO DAILY 08/05/19 08/05/19 History (formulary)] Ondansetron [Zofran] 4 mg PO Q8HR PRN 08/05/19 08/05/19 History Ticagrelor [Brilinta] 90 mg PO BID 08/05/19 08/05/19 History amLODIPine [Norvasc] 5 mg PO DAILY 08/05/19 08/05/19 History Allergies Allergy/AdvReac Type Severity Reaction Status Date / Time Influenza Virus Vaccines AdvReac Nausea & Verified 08/05/19 14:31 Vomiting morphine AdvReac Nausea & Verified 08/05/19 14:31 Vomiting Physical Examination - Vital Signs Vital Signs: Vital Signs Temp Pulse Resp BP Pulse Ox 08/05/19 19:57 98 20 127/93 98 08/05/19 18:30 94 20 160/111 98 08/05/19 18:00 98 20 140/84 95 08/05/19 17:30 91 20 149/100 98 08/05/19 17:00 93 12 140/93 98 08/05/19 16:30 89 21 130/93 98 08/05/19 16:00 92 20 129/83 98 08/05/19 15:30 87 11 L 111/80 97 08/05/19 15:00 88 16 126/84 95 08/05/19 14:30 90 18 103/80 96 08/05/19 14:00 85 16 124/85 95 08/05/19 13:43 98.6 F 89 16 124/85 98 Intake and Output 08/05/19 08/05/19 08/05/19 06:59 14:59 22:59 Other: Weight 75.296 kg Gen NAD Pleasant and cooperative HEENT NCAT Sclera without icterus O/P clear Neck Supple No carotid bruit Cor RRR no m/r/g Lungs CTAB Abd Soft NTND +BS Ext Warm to touch No edema Neuro MS A+Ox4 Normal fluency Able to follow all commands CN PERRL VFF no APD EOMI no nystagmus or KATERIN No facial asymmetry [place]'s symmetric Hearing intact to normal voice bilaterally Speech not dysarthric Equal elevation of palate Tongue midline Sym shrug and SCM bilaterally Motor Normal bulk/tone No pronator or tremors Strength 5/5 BUE 4+/5 in RLE with give-way weakness due to pain behavior 5/5 LLE Sens Intact to LT x4 No neglect or extinction Right [id number] is positive Coord No dysmetria on FTN bilaterally DTRs 2+/4 sym throughout Toes downgoing bilaterally No clonus at achilles Gait Deferred NIHSS 6b=2 total 2 Results - Laboratory Findings CBC and BMP: 08/05/19 14:26 08/05/19 14:26 Abnormal Lab Findings: Abnormal Labs 08/05/19 08/05/19 14:26 14:26 WBC 13.4 H RBC 3.69 L Hgb 10.6 L Hct 33.5 L RDW 21.5 H Neutrophils # 9.5 H BUN 2 L Creatinine 0.47 L AST 115 H ALT 73 H Alkaline Phosphatase 131 H - Diagnostic Findings Additional findings: CT Head wo cont 08/05/19. Mild global atrophy. Small vessel disease. 1cm colloid cyst in foramen of Yu. No ICH. Nil acute. CTA Head/Neck 08/05/19. Left carotid stent is in place and patent. There is a 40% short segment luminal narrowing in the mid stent area. Distal to the stent the left ICA is widely patent. The remainder of the bilateral carotid systems a patent other then approximately 40% right ICA luminal stenosis there is seen on previous CTA on 07/26/19. Her posterior circulation is intact. I have reviewed neuroimages myself. Assessment and Plan Assessment: RLE pain and weakness with give-way weakness due to pain behavior and positive [id number], more suspicious for lumbar radiculopathy rather than cerebrovascular disease. Her LICA is now widely patent s/p cardiac stenting. Plan: -Discussed treatment options of her lumbar pain moving forward -Patient declines trial of neuropathic pain medicine or further work-up at this time -She should likely see pain management and/or outpatient neurology for her lumbar and RLE pain -Can consult PT while she is in-house -From a vascular standpoint, continue dual antiplatelet therapy and statin therapy -No further inpatient neuro recs at this time. Will revisit patient prn. Please call with new ?. Thank you for this consultation. Time with Patient: Greater than 30 (Time spent in direct patient care, greater than 50% of which was spent in [id number] counseling and coordination of care: 70 minutes)
[2019-08-05 21:14] VITALS: RESP 18
[2019-08-05 21:47] VITALS: BMI 30.2
[2019-08-06] MEDS: SODIUM CHLORIDE 0.9% 1,000 ML IV SCH (03:52)
[2019-08-06 06:32] LABS: Cholesterol 149 mg/dL (<200); HDL Cholesterol 36 mg/dL (40-60); LDL Cholesterol,Calculated 85 mg/dL (0-99); Triglycerides 141 mg/dL (<150)
[2019-08-06] MEDS ORDERED: ASPIRIN 325 MG TAB PO SCH (09:00)
[2019-08-06] MEDS ORDERED: IBUPROFEN 600 MG TAB PO PRN (09:01)
[2019-08-06] MEDS ORDERED: ONDANSETRON 4 MG TAB PO PRN (09:01)
[2019-08-06] MEDS ORDERED: MIDODRINE 5 MG TAB PO PRN (09:01)
[2019-08-06] MEDS ORDERED: TICAGRELOR 90 MG TAB PO SCH (09:15)
[2019-08-06] MEDS ORDERED: PANTOPRAZOLE 40 MG TABLET PO SCH (09:15)
[2019-08-06] MEDS ORDERED: amLODIPine 5 MG TAB PO SCH (09:15)
[2019-08-06] MEDS ORDERED: POTASSIUM CHLORIDE ER 10 MEQ TAB.ER.PRT PO SCH (09:15)
[2019-08-06] MEDS ORDERED: ISOSORBIDE MONONITRATE ER 30 MG TAB.ER.24H PO SCH (09:15)
[2019-08-06] MEDS ORDERED: FLUTICASONE 50MCG/SPRAY NASAL 16GM EA NOSTRIL SCH (09:15)
[2019-08-06 11:53] VITALS: BP 114/80; PULSE 93; TEMP 98.3
[2019-08-06] MEDS ORDERED: ATORVASTATIN 80 MG TAB PO SCH (21:00)
[2019-08-07] MEDS ORDERED: MULTIVITAMINS, THERA 1 EACH TAB PO SCH (09:00)
[2019-08-07] MEDS ORDERED: ASPIRIN 81 MG PO SCH (09:00)
--- NOTE | 2019-08-07 14:44 | P.HPIM ---
History of Present Illness H&P Date: 08/06/19 Chief Complaint: Right-sided weakness HISTORY AND PHYSICAL AND DISCHARGE SUMMARY: This is a 59-year-old female patient of Dr. العلي with a past medical history of coronary artery disease, hypertension, seasonal ALLERGIES, gastroesophageal reflux disease, CVA. Patient presented to [facility] emergency center on July 26 with right upper and lower extremity weakness and difficulty with speech that had been going on for [address] angiography of the head and neck showed severe, 90% stenosis at the proximal le ft ICA. The left bifurcation is located 3 cm below the angle of the mandible. Mild, less than 50% narrowing proximal right ICA. CT brain without contrast showed a 1 cm hyperdense collates is in the region of the [place] of [place]. Note that this has been associated positional life-threatening hydrocephalus. No hydrocephalus at this time. Moderate patchy changes of chronic small vessel ischemic disease particularly in the left cerebral hemisphere. More focal area of cortical/subcortical hypodensity anterior left parietal lobe could represent an area of subacute infarct given weakness for 2 weeks. Case was discussed with Dr. Queen and patient was transferred to [facility] for carotid endarterectomy. Patient was to be on dual antiplatelet therapy with aspirin and Brilinta and also atorvastin. The patient states that she was discharged from the hospital on Sunday but her pharmacy was closed and she did not warp picker her prescriptions until Sunday so she has not been taking any of her new medications. Patient came into [facility] emergency center for evaluation. She was afebrile, heart rate 89, blood pressure 124/85, pulse ox 98% on room air. WBC 13.4, hemoglobin 10.6, platelet count 439, electrolytes within normal limits, BUN 2 and creatinine 0.47, blood sugar 97. Total bilirubin 0.2, AST 115, ALT 73, alkaline phosphatase 131, CK 52, albumin 3.6. Troponin negative. Urinalysis clear with nitrate and leukoesterase negative, no protein, no blood. Initial NIH stroke scale 2. EKG sinus rhythm with no acute ST-T wave changes. CT of the brain revealed 1 cm colloid cyst region in the foramen of Sky. No that these are associated with positional life-threatening hydrocephalus. There is no hydrocephalus at this time. Mild generalized atrophy and moderate patchy changes of chronic small vessel ischemic disease left greater than right unch anged from July 26. CT angiogram of the head and neck revealed Left carotid stent is in place and patent. There is a 40% short segment luminal narrowing in the mid stent area. Distal to the stent the left ICA is widely patent.. The remainder of the bilateral carotid systems a patent other then approximately 40% right ICA luminal stenosis there is seen on previous CTA on 07/26/19. 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 Chest x-ray shows no acute cardiopulmonary process. Patient was admitted to the cardiac stepdown unit and consult with Dr. Arceo obtained. He is concerned that left lower extremity weakness is related to lumbar radiculopathy rather than cerebrovascular disease he recommends continuing dual antiplatelet therapy and statin therapy. Patient states that she has had degenerative disc disease for a long period of time and follows with a chiropractor. She is not interested in seen neurosurgeon and does not want to have surgery. Patient is agreeable for discharge home. She is complaining of pain and she states she has to take Motrin. We have added and Celebrex and she will discontinue Motrin for home. Review of Systems Constitutional: Denies chills, Denies fatigue, Denies fever, Denies lethargy, Denies malaise, Denies poor appetite, Denies weight loss Eyes: denies blurred vision, denies pain Ears, nose, mouth and throat: Denies headache, Denies sore throat, Denies verti go Cardiovascular: Denies chest pain, Denies decreased exercise tolerance, Denies dyspnea on exertion, Denies edema, Denies leg edema, Denies lightheadedness, Denies shortness of breath, Denies syncope Respiratory: Denies cough, Denies dyspnea, Denies excessive sputum, Denies hemoptysis, Denies home oxygen Gastrointestinal: Denies abdominal pain, Denies diarrhea, Denies loss of appetite, Denies nausea, Denies vomiting Genitourinary: Denies dysuria, Denies hematuria, Denies urgency, Denies urinary frequency Musculoskeletal: Denies frequent falls, Denies myalgias Integumentary: Denies pruritus, Denies rash Neurological: Reports gait dysfunction, Reports weakness, Denies numbness Psychiatric: Denies anxiety, Denies depression Endocrine: Denies fatigue, Denies weight change Past Medical History Past Medical History: Asthma, CVA/TIA, Myocardial Infarction ([place]), Seizure Disorder Additional Past Medical History / Comment(s): DDD Last Myocardial Infarction Date:: aug 2018 History of Any Multi-Drug Resistant Organisms: None Reported Past Surgical History: Cholecystectomy, Joint Replacement, Orthopedic Surgery Additional Past Surgical History / Comment(s): bartholin gland cyst removal, stent placed Past Anesthesia/Blood Transfusion Reactions: No Reported Reaction Smoking Status: Current every day smoker Additional Past Alcohol Use History / Comment(s): Patient is an active smoker but has decreased her intake. She is also has history of alcohol abuse and is trying to cut back on wine. - Past Family History Mother Family Medical History: Cancer, Congestive Heart Failure (CHF), Coronary Artery Disease (CAD), Hyperlipidemia Father Family Medical History: Cancer, COPD Medications and Allergies Home Medications Medication Instructions Recorded Confirmed Type Aspirin EC [Ecotrin Low Dose] 81 mg PO DAILY 02/11/19 08/05/19 History Fluticasone Nasal [place] [Flonase 2 spr EA NOSTRIL DAILY 02/11/19 08/05/19 History Nasal [place]] Potassium Chloride [Klor-Con 10] 10 meq PO BID 02/11/19 08/05/19 History Pantoprazole [Protonix] 40 mg PO AC-GILKFST #30 tablet. 02/13/19 08/05/19 Rx Atorvastatin Calcium [Lipitor] 80 mg PO HS 08/05/19 08/05/19 History Isosorbide Mononitrate ER [Imdur] 30 mg PO DAILY 08/05/19 08/05/19 History Midodrine [ProAmatine] 5 mg PO TID PRN 08/05/19 08/05/19 History Multivitamins, Thera [Multivitamin 1 tab PO DAILY 08/05/19 08/05/19 History (formulary)] Ondansetron [Zofran] 4 mg PO Q8HR PRN 08/05/19 08/05/19 History Ticagrelor [Brilinta] 90 mg PO BID 08/05/19 08/05/19 History amLODIPine [Norvasc] 5 mg PO DAILY 08/05/19 08/05/19 History Celecoxib [CeleBREX] 200 mg PO DAILY #30 cap 08/06/19 Rx Nicotine 21Mg/24Hr Patch [Habitrol] 21 mg TRANSDERM DAILY 08/06/19 08/06/19 History Ofloxacin 0.3% Ophth Soln [Ocuflox 1 - 2 drops BOTH EYES QID 08/06/19 08/06/19 History Ophth Soln] Allergies Allergy/AdvReac Type Severity Reaction Status Date / Time Influenza Virus Vaccines AdvReac Nausea & Verified 08/05/19 14:31 Vomiting morphine AdvReac Nausea & Verified 08/05/19 14:31 Vomiting Physical Exam Vitals: Vital Signs Temp Pulse Pulse Resp BP BP Pulse Ox 08/06/19 03:47 98.1 F 89 18 150/80 98 08/05/19 22:59 98 F 95 18 145/82 99 08/05/19 21:42 98.2 F 100 18 153/94 100 08/05/19 21:13 98.8 F 97 18 133/90 98 08/05/19 19:57 98 20 127/93 98 08/05/19 18:30 94 20 160/111 98 08/05/19 18:00 98 20 140/84 95 08/05/19 17:30 91 20 149/100 98 08/05/19 17:00 93 12 140/93 98 08/05/19 16:30 89 21 130/93 98 08/05/19 16:00 92 20 129/83 98 08/05/19 15:30 87 11 L 111/80 97 08/05/19 15:00 88 16 126/84 95 08/05/19 14:30 90 18 103/80 96 08/05/19 14:00 85 16 124/85 95 08/05/19 13:43 98.6 F 89 16 124/85 98 Intake and Output 08/05/19 08/06/19 08/06/19 22:59 06:59 14:59 Intake Total 240 Balance 240 Intake: Oral 240 Other: Voiding Method Toilet # Voids 1 Weight 71.7 kg Gen: This is an obese 59-year-old female. She is in a sitting in a recliner appears to be comfortable and in no acute distress. HEENT: Head is atraumatic, normocephalic. Pupils equal, round. Sclerae is anicteric. NECK: Supple. No JVD. No lymphadenopathy. No thyromegaly. LUNGS: Clear to auscultation. No wheezes or rhonchi. No intercostal retractions. HEART: Regular rate and rhythm. No murmur. ABDOMEN: Soft. Bowel sounds are present. No masses. No tenderness. EXTREMITIES: No pedal edema. No calf tenderness. Straight leg test positive, right. NEUROLOGICAL: Patient is awake, alert and oriented x3. Cranial nerves 2 through 12 are grossly intact. Results CBC & Chem 7: 08/05/19 14:26 08/05/19 14:26 Labs: Abnormal Lab Results - Last 24 Hours (Table) 08/05/19 08/05/19 08/06/19 Range/Units 14:26 14:26 06:01 WBC 13.4 H (3.8-10.6) k/uL RBC 3.69 L (3.80-5.40) m/uL Hgb 10.6 L (11.4-16.0) gm/dL Hct 33.5 L (34.0-46.0) % RDW 21.5 H (11.5-15.5) % Neutrophils # 9.5 H (1.3-7.7) k/uL BUN 2 L (7-17) mg/dL Creatinine 0.47 L (0.52-1.04) mg/dL AST 115 H (14-36) U/L ALT 73 H (9-52) U/L Alkaline Phosphatase 131 H (38-126) U/L HDL Cholesterol 36 L (40-60) mg/dL Thrombosis Risk Factor Assmnt - Choose All That Apply Any of the Below Risk Factors Present?: Yes Each Factor Represents 1 point: Age 41-60 years, Obesity (BMI >25) Thrombosis Risk Factor Assessment Total Risk Factor Score: 2 Thrombosis Risk Factor Assessment Level: Low Risk Assessment and Plan Plan: 1. Right lower extremity pain and weakness secondary to lumbar radiculopathy. Neurology consult appreciated. PT and OT in place. Celebrex for pain 2. Recent CVA and left internal carotid artery stenting for critical stenosis. Neurology consult appreciated. Continue Brilinta, aspirin and statin. Aspirin will be reduced to 81 mg daily. 3. Hypertension. Continue amlodipine 5 mg daily. 4. Coronary artery disease. Continue aspirin, Imdur 30 mg daily. 5. Seasonal ALLERGIES. Continue Flonase daily. 6. Gastroesophageal reflux disease. Continue Protonix. 7. History of tobacco use and dependence, alcohol abuse, patient counseled regarding cessation. Patient will be admitted to the hospital for a minimum of 1 night stay. Discharge plan: Return home Discharge Medication List Aspirin EC [Ecotrin Low Dose] 81 mg PO DAILY 02/11/19 [History] Fluticasone Nasal [place] [Flonase Nasal [place]] 2 spr EA NOSTRIL DAILY 02/11/19 [History] Potassium Chloride [Klor-Con 10] 10 meq PO BID 02/11/19 [History] Pantoprazole [Protonix] 40 mg PO HERBERT-GILKFST #30 tablet. 02/13/19 [Rx] Atorvastatin Calcium [Lipitor] 80 mg PO HS 08/05/19 [History] Isosorbide Mononitrate ER [Imdur] 30 mg PO DAILY 08/05/19 [History] Midodrine [ProAmatine] 5 mg PO TID PRN 08/05/19 [History] Multivitamins, Thera [Multivitamin (formulary)] 1 tab PO DAILY 08/05/19 [History] Ondansetron [Zofran] 4 mg PO Q8HR PRN 08/05/19 [History] Ticagrelor [Brilinta] 90 mg PO BID 08/05/19 [History] amLODIPine [Norvasc] 5 mg PO DAILY 08/05/19 [History] Celecoxib [CeleBREX] 200 mg PO DAILY #30 cap 08/06/19 [Rx] Nicotine 21Mg/24Hr Patch [Habitrol] 21 mg TRANSDERM DAILY 08/06/19 [History] Ofloxacin 0.3% Ophth Soln [Ocuflox Ophth Soln] 1 - 2 drops BOTH EYES QID 08/06/19 [History] Impression and plan of care have been directed as dictated by the signing physician. Gladis Vieyra nurse practitioner acting as scribe for signing physician.
== END 2019-08-06 16:22 | disposition home health service (06) ==
LOC: EC 13:34 → UNDOADMIN 17:27 → INTOOBSV 17:27 → 3SCARD 17:27 → UNDODISIN 08-06 16:22
PROVIDERS: ADMIT Family Medicine; ATTEND Family Medicine
DX: M51.16 Intervertebral disc disorders with radiculopathy, lumbar region (principal); G40.909 Epilepsy, unspecified, not intractable, without status epilepticus; I10 Essential (primary) hypertension; I25.10 Atherosclerotic heart disease of native coronary artery without angina pectoris; I65.23 Occlusion and stenosis of bilateral carotid arteries; J45.909 Unspecified asthma, uncomplicated; K21.9 Gastro-esophageal reflux disease without esophagitis; F17.200 Nicotine dependence, unspecified, uncomplicated; F17.210 Nicotine dependence, cigarettes, uncomplicated; F10.10 Alcohol abuse, uncomplicated; E66.9 Obesity, unspecified; Z68.28 Body mass index [BMI] 28.0-28.9, adult; R26.9 Unspecified abnormalities of gait and mobility; R29.702 NIHSS score 2; Z79.02 Long term (current) use of antithrombotics/antiplatelets; Z79.1 Long term (current) use of non-steroidal anti-inflammatories (NSAID); Z79.82 Long term (current) use of aspirin; Z79.899 Other long term (current) drug therapy; Z88.5 Allergy status to narcotic agent; Z88.7 Allergy status to serum and vaccine; Z86.73 Personal history of transient ischemic attack (TIA), and cerebral infarction without residual deficits; Z95.5 Presence of coronary angioplasty implant and graft; Z90.49 Acquired absence of other specified parts of digestive tract; I25.2 Old myocardial infarction; Z82.49 Family history of ischemic heart disease and other diseases of the circulatory system; Z82.5 Family history of asthma and other chronic lower respiratory diseases; Z80.9 Family history of malignant neoplasm, unspecified; Z95.828 Presence of other vascular implants and grafts; Z83.49 Family history of other endocrine, nutritional and metabolic diseases
CPT/HCPCS: 96360; 96361; 99285; 36415; 93005; 97162; 80061; 80053; 82550; 84484; 85025; 85610; 85730; 81003; 71046; 70496; 70450; 70498; G0378 ×2; Q9967

== ENCOUNTER 2019-08-27 11:35 | Emergency (ER) | payer OTHER ==
[2019-08-27] MEDS ORDERED: SODIUM CHLORIDE 0.9% 1,000 ML IV STA (11:46)
[2019-08-27] MEDS ORDERED: HYDROmorphone 0.5 MG/0.5 ML SYRINGE IVP STA (11:46)
[2019-08-27] MEDS ORDERED: KETOROLAC 30 MG/ML 1 ML VIAL IVP STA (11:46)
[2019-08-27] MEDS ORDERED: ONDANSETRON 4 MG/2 ML VIAL IVP STA ×2 (11:46→16:29)
--- NOTE | 2019-08-27 12:23 | CT ---
EXAMINATION TYPE: CT abdomen pelvis wo con DATE OF EXAM: 08/27/2019 HISTORY: Right flank pain CT DLP: 583.3 mGycm. Automated Exposure Control for Dose Reduction was Utilized. TECHNIQUE: CT scan of the abdomen and pelvis is performed without oral or IV contrast. COMPARISON: CT abdomen and pelvis November 28, 2010 FINDINGS: Within the limitations of a non-contrast study, the following observations are made. LUNG BASES: No significant abnormality is appreciated. LIVER/GB: Liver is diffusely low dense consistent with fatty infiltration. Cholecystectomy clips are seen. PANCREAS: No significant abnormality is seen. SPLEEN: No significant abnormality is seen. ADRENALS: No significant abnormality is seen. KIDNEYS: No renal stones or hydronephrosis is present bilaterally. No intraluminal calculi in poorly distended bladder. Occasional scattered calcified pelvic phleboliths. BOWEL: Evaluation is suboptimal secondary to lack of enteric contrast. Stomach is poorly distended an d thus suboptimally evaluated. No suspicious small or large bowel dilatation. Diverticula in the sigm oid colon with lgbi-mt-ribitbue wall thickening. No surrounding inflammatory change. . Mild wall thic kening mid to distal transverse colon coronal image 19 and mid to distal left colon. Finding presumed product of poor distention, areas of mild colitis are not entirely excluded. Incidental normal-appea ring appendix from cecum. GENITAL ORGANS: Slightly retroverted uterus. LYMPH NODES: No greater than 1cm abdominal or pelvic lymph nodes are appreciated. OSSEOUS STRUCTURES: No significant abnormality is seen. OTHER: Moderate calcified plaque of the aorta extends into branch vessels. IMPRESSION: No renal stones or hydronephrosis is seen bilaterally. No suspicious new or acute finding s seen to account for patient's symptoms of right-sided flank pain.
--- NOTE | 2019-08-27 12:38 | ED ---
Back Pain HPI - General Chief Complaint: Back Pain/Injury Stated Complaint: Back pain Time Seen by Provider: 08/27/19 11:42 Source: patient, EMS, RN notes reviewed Limitations: no limitations - History of Present Illness Initial Comments: This a 59-year-old female presents emergency Department chief complaint of sudden onset of right flank pain. Patient states primarily right lower back. Denies any injury. Patient states started after she went to the bathroom. She states that she feels nauseated, has been dry heaving. Patient states that she has no history kidney stones. Patient denies any dysuria, hematuria, diarrhea constipation. Patient was recently admitted to the hospital for CVA. Patient denies any new focal weakness. Patient is went of headache or dizziness. No fevers or chills. - Related Data Home Medications Medication Instructions Recorded Confirmed Aspirin EC [Ecotrin Low Dose] 81 mg PO DAILY 02/11/19 08/27/19 Fluticasone Nasal [place] [Flonase 2 spr EA NOSTRIL DAILY 02/11/19 08/27/19 Nasal [place]] Potassium Chloride [Klor-Con 10] 10 meq PO BID 02/11/19 08/27/19 Atorvastatin Calcium [Lipitor] 80 mg PO HS 08/05/19 08/27/19 Isosorbide Mononitrate ER [Imdur] 30 mg PO DAILY 08/05/19 08/27/19 Midodrine [ProAmatine] 5 mg PO TID PRN 08/05/19 08/27/19 Multivitamins, Thera [Multivitamin 1 tab PO DAILY 08/05/19 08/27/19 (formulary)] Ondansetron [Zofran] 4 mg PO Q8HR PRN 08/05/19 08/27/19 Ticagrelor [Brilinta] 90 mg PO BID 08/05/19 08/27/19 amLODIPine [Norvasc] 5 mg PO DAILY 08/05/19 08/27/19 Nicotine 21Mg/24Hr Patch [Habitrol] 1 patch TRANSDERM DAILY 08/06/19 08/27/19 Ofloxacin 0.3% Ophth Soln [Ocuflox 1 - 2 drops BOTH EYES QID 08/06/19 08/27/19 Ophth Soln] Previous Rx's Medication Instructions Recorded Pantoprazole [Protonix] 40 mg PO AC-BRKFST #30 tablet. 02/13/19 Celecoxib [CeleBREX] 200 mg PO DAILY #30 cap 08/06/19 HYDROcodone/APAP 7.5-325MG [[place] 1 tab PO Q6HR PRN 3 Days #12 tab 08/27/19 7.5-325] Allergies Allergy/AdvReac Type Severity Reaction Status Date / Time Influenza Virus Vaccines AdvReac Nausea & Verified 08/27/19 12:00 Vomiting morphine AdvReac Nausea & Verified 08/27/19 12:00 Vomiting Review of Systems ROS Statement: Those systems with pertinent positive or pertinent negative responses have been documented in the HPI. ROS Other: All systems not noted in ROS Statement are negative. Past Medical History Past Medical History: Asthma, CVA/TIA, Myocardial Infarction ([place]), Seizure Disorder Additional Past Medical History / Comment(s): DDD Last Myocardial Infarction Date:: aug 2018 History of Any Multi-Drug Resistant Organisms: None Reported Past Surgical History: Cholecystectomy, Joint Replacement, Orthopedic Surgery Additional Past Surgical History / Comment(s): bartholin gland cyst removal, stent placed Past Anesthesia/Blood Transfusion Reactions: No Reported Reaction Past Psychological History: Anxiety, Depression Smoking Status: Current some day smoker Past Alcohol Use History: Occasional Past Drug Use History: Marijuana - Past Family History Mother Family Medical History: Cancer, Congestive Heart Failure (CHF), Coronary Artery Disease (CAD), Hyperlipidemia Father Family Medical History: Cancer, COPD General Exam Limitations: no limitations General appearance: alert, in no apparent distress Head exam: Present: atraumatic, normocephalic, normal inspection Eye exam: Present: normal appearance, PERRL, EOMI. Absent: scleral icterus, conjunctival injection, periorbital swelling ENT exam: Present: normal exam, normal oropharynx, mucous membranes moist Neck exam: Present: normal inspection, full ROM. Absent: tenderness, meningismus, lymphadenopathy Respiratory exam: Present: normal lung sounds bilaterally. Absent: respiratory distress, wheezes, rales, rhonchi, stridor Cardiovascular Exam: Present: normal rhythm, tachycardia, normal heart sounds. Absent: systolic murmur, diastolic murmur, rubs, gallop, clicks GI/Abdominal exam: Present: soft, tenderness (Mild right-sided right flank), normal bowel sounds. Absent: distended, guarding, rebound, rigid Extremities exam: Present: other (Extremity pulses equal bilaterally, no discoloration equal warmth in color, full range of motion patient reports pain with right straight leg raise) Back exam: Present: CVA tenderness (R), paraspinal tenderness (Right lumbar). Absent: CVA tenderness (L) Neurological exam: Present: alert, oriented X3, CN II-XII intact Skin exam: Present: warm, dry, intact, normal color. Absent: rash Course Vital Signs 08/27/19 08/27/19 08/27/19 11:39 12:32 13:19 Temperature 97.6 F 98.1 F Pulse Rate 118 H 99 98 Respiratory 18 20 18 Rate Blood Pressure 126/116 146/87 110/67 O2 Sat by Pulse 98 96 96 Oximetry 08/27/19 14:33 Temperature Pulse Rate 96 Respiratory 18 Rate Blood Pressure 127/83 O2 Sat by Pulse 98 Oximetry Medical Decision Making - Medical Decision Making 59-year-old female presented for low back pain. Patient's pain was acute she does have chronic back issues. CT was obtained given the presentation of possible kidney stone which shows no acute findings. Patient is improved after pain medication patient's pain is reproducible and is consistent with lumbar strain also concern for lumbar nerve impingement. Patient we discharged at this time return parameters were discussed. - Lab Data Result diagrams: 08/27/19 12:20 08/27/19 12:20 Lab Results 08/27/19 08/27/19 08/27/19 Range/Units 12:20 12:20 14:28 WBC 10.4 (3.8-10.6) k/uL RBC 3.12 L (3.80-5.40) m/uL Hgb 8.9 L D (11.4-16.0) gm/dL Hct 28.5 L (34.0-46.0) % MCV 91.2 (80.0-100.0) fL MCH 28.6 (25.0-35.0) pg MCHC 31.3 (31.0-37.0) g/dL RDW 22.3 H (11.5-15.5) % Plt Count 249 (150-450) k/uL Neutrophils % 79 % Lymphocytes % 13 % Monocytes % 4 % Eosinophils % 1 % Basophils % 1 % Neutrophils # 8.2 H (1.3-7.7) k/uL Lymphocytes # 1.4 (1.0-4.8) k/uL Monocytes # 0.4 (0-1.0) k/uL Eosinophils # 0.1 (0-0.7) k/uL Basophils # 0.1 (0-0.2) k/uL Hypochromasia Moderate Poikilocytosis Slight Anisocytosis Moderate Macrocytosis Slight Sodium 137 (137-145) mmol/L Potassium 3.6 (3.5-5.1) mmol/L Chloride 99 (98-107) mmol/L Carbon Dioxide 24 (22-30) mmol/L Anion Gap 14 mmol/L BUN 6 L (7-17) mg/dL Creatinine 0.61 (0.52-1.04) mg/dL Est GFR (CKD-EPI)AfAm >90 (>60 ml/min/1.73 sqM) Est GFR (CKD-EPI)NonAf >90 (>60 ml/min/1.73 sqM) Glucose 152 H (74-99) mg/dL Calcium 9.0 (8.4-10.2) mg/dL Total Bilirubin 0.6 (0.2-1.3) mg/dL AST 121 H (14-36) U/L ALT 60 H (9-52) U/L Alkaline Phosphatase 210 H (38-126) U/L Total Protein 7.0 (6.3-8.2) g/dL Albumin 3.8 (3.5-5.0) g/dL Amylase 39 (30-110) U/L Lipase 160 (23-300) U/L Urine Color Yellow Urine Appearance Cloudy H (Clear) Urine pH 6.0 (5.0-8.0) Ur Specific [place] 1.018 (1.001-1.035) Urine Protein 1+ H (Negative) Urine Glucose (UA) Negative (Negative) Urine Ketones Negative (Negative) Urine Blood Negative (Negative) Urine Nitrite Negative (Negative) Urine Bilirubin Negative (Negative) Urine Urobilinogen 3.0 (<2.0) mg/dL Ur Leukocyte Esterase Small H (Negative) Urine RBC 1 (0-5) /hpf Urine WBC 5 (0-5) /hpf Ur Squamous Epith Cells 6 H (0-4) /hpf Calcium Oxalate Crystal Occasional H (None) /hpf Urine Bacteria Rare H (None) /hpf Hyaline Casts 40 H (0-2) /lpf Urine Mucus Many H (None) /hpf Urine Yeast (Budding) Occasional H (None) /hpf Disposition Clinical Impression: Lumbar back pain Disposition: HOME SELF-CARE Condition: Stable Instructions (If sedation given, give patient instructions): Acute Low Back Pain (ED) Additional Instructions: Please return to the Emergency Department if symptoms worsen or any other concerns. Prescriptions: HYDROcodone/APAP 7.5-325MG [[place] 7.5-325] 1 tab PO Q6HR PRN 3 Days #12 tab PRN Reason: Pain Is patient prescribed a controlled substance at d/c from ED?: Yes When asked, does pt state using other controlled substances?: Yes If prescribed controlled substance>3 days was MAPS reviewed?: Prescribed <3 Days If opioid is for acute pain is fill amount 7 days or less?: Yes If Rx opioid, was Start Talking consent form obtained?: Yes Referrals: Davide العلي MD [Primary Care Provider] - 1-2 days Time of Disposition: 15:47
[2019-08-27 12:58] LABS: ALT 60 U/L (9-52); AST 121 U/L (14-36); African American GFR (CKD) >90 (>60 ml/min/1.73 sqM); Albumin 3.8 g/dL (3.5-5.0); Alkaline Phosphatase 210 U/L (38-126); Amylase 39 U/L (30-110); Anion Gap 14 mmol/L; Blood Urea Nitrogen 6 mg/dL (7-17); Carbon Dioxide 24 mmol/L (22-30); Chloride 99 mmol/L (98-107); Glucose 152 mg/dL (74-99); Potassium 3.6 mmol/L (3.5-5.1); Sodium 137 mmol/L (137-145); Total Bilirubin 0.6 mg/dL (0.2-1.3)
[2019-08-27 13:20] LABS: Anisocytosis Moderate; Basophils # (A) 0.1 k/uL (0-0.2); Basophils % (A) 1 %; Eosinophils # (A) 0.1 k/uL (0-0.7); Eosinophils % (A) 1 %; HCT 28.5 % (34.0-46.0); Hypochromasia Moderate; Lymphocytes # (A) 1.4 k/uL (1.0-4.8); Lymphocytes % (A) 13 %; MCH 28.6 pg (25.0-35.0); MCHC 31.3 g/dL (31.0-37.0); MCV 91.2 fL (80.0-100.0); Macrocytosis Slight; Mean Platelet Volume 7.7; Monocytes # (A) 0.4 k/uL (0-1.0); Monocytes % (A) 4 %; Neutrophils # (A) 8.2 k/uL (1.3-7.7); Neutrophils % (A) 79 %; Platelet Count 249 k/uL (150-450); Poikilocytosis Slight; RBC 3.12 m/uL (3.80-5.40); RDW 22.3 % (11.5-15.5); WBC 10.4 k/uL (3.8-10.6)
[2019-08-27 13:21] VITALS: RESP 18
[2019-08-27 13:25] LABS: HGB 8.9 gm/dL (11.4-16.0)
[2019-08-27] MEDS ORDERED: HYDROmorphone 1 MG/ML 1 ML SYRINGE IVP STA (14:21)
[2019-08-27 15:18] LABS: Appearance,Urine Cloudy (Clear); Bacteria,Urine Rare /hpf; Bilirubin,Urine Negative (Negative); Blood,Urine Negative (Negative); Budding Yeast,Urine Occasional /hpf; Calcium Oxalate Crystals,Urine Occasional /hpf; Color,Urine Yellow; Glucose,Urine (UA) Negative (Negative); Hyaline Casts,Urine 40 /lpf (0-2); Ketones,Urine Negative (Negative); Leukocyte Esterase,Urine Small (Negative); Mucus,Urine Many /hpf; Nitrite,Urine Negative (Negative); Protein,Urine 1+ (Negative); RBC,Urine 1 /hpf (0-5); Specific Gravity,Urine 1.018 (1.001-1.035); Squamous Epithelial Cell,Urine 6 /hpf (0-4)
[2019-08-27] MEDS ORDERED: DIAZEPAM 5 MG/ML 2 ML INJ IVP STA (15:28)
[2019-08-27] MEDS ORDERED: SODIUM CHLORIDE 0.9% 1,000 ML IV ONE (16:29)
[2019-08-27 16:49] VITALS: PULSE 80
[2019-08-27 17:51] VITALS: BP 147/90; TEMP 97.9
== END 2019-08-27 17:50 | disposition home or self-care (01) ==
LOC: EC 11:35
DX: M54.5 Low back pain (principal); R00.0 Tachycardia, unspecified; R10.9 Unspecified abdominal pain; R11.2 Nausea with vomiting, unspecified; J45.909 Unspecified asthma, uncomplicated; I25.2 Old myocardial infarction; F17.200 Nicotine dependence, unspecified, uncomplicated; Z88.5 Allergy status to narcotic agent; Z88.7 Allergy status to serum and vaccine; Z79.51 Long term (current) use of inhaled steroids; Z79.82 Long term (current) use of aspirin; Z79.899 Other long term (current) drug therapy; Z86.73 Personal history of transient ischemic attack (TIA), and cerebral infarction without residual deficits; Z90.49 Acquired absence of other specified parts of digestive tract
CPT/HCPCS: 36415; 80053; 82150; 83690; 85025; 81001; 74176; 99284; 96374; 96375 ×3; 96376 ×2; 96361 ×2; J3360; J2405; J1885; J1170 ×2

== ENCOUNTER 2019-09-10 17:16 | Inpatient (IN) | payer OTHER ==
[2019-09-10] MEDS ORDERED: ASPIRIN 81 MG PO STA (18:13)
[2019-09-10 19:42] LABS: Anisocytosis Slight; Basophils # (A) 0.2 k/uL (0-0.2); Basophils % (A) 3 %; Eosinophils # (A) 0.2 k/uL (0-0.7); Eosinophils % (A) 2 %; HCT 31.7 % (34.0-46.0); HGB 9.6 gm/dL (11.4-16.0); Hypochromasia Marked; Lymphocytes # (A) 2.2 k/uL (1.0-4.8); Lymphocytes % (A) 33 %; MCH 26.8 pg (25.0-35.0); MCHC 30.4 g/dL (31.0-37.0); MCV 88.3 fL (80.0-100.0); Mean Platelet Volume 6.9; Monocytes # (A) 0.2 k/uL (0-1.0); Monocytes % (A) 3 %; Neutrophils # (A) 3.7 k/uL (1.3-7.7); Neutrophils % (A) 55 %; Platelet Count 190 k/uL (150-450); Poikilocytosis Slight; RBC 3.59 m/uL (3.80-5.40); RDW 19.7 % (11.5-15.5); WBC 6.7 k/uL (3.8-10.6)
--- NOTE | 2019-09-10 19:47 | ED ---
Chest Pain HPI - General Chief Complaint: Chest Pain Stated Complaint: MARY ALICE Time Seen by Provider: 09/10/19 17:20 Source: patient Mode of arrival: EMS Limitations: no limitations - History of Present Illness Initial Comments: The patient is a 59-year-old female with past medical history of CVA, carotid stenosis and residual right sided weakness who presents to the emergency room in with reported chest pain. She reports that the pain started last night. Is located over the left side of her chest without radiation. Describes it as a pressure sensation. No numbness or tingling of her upper extremity. No ripping or tearing sensation to her back. Admits to associated nausea without vomiting. No diaphoresis. No history of DVT or PE. No family history of blood clotting disorders. Patient recently did have endarterectomy at [facility]. Denies any calf pain or swelling. Denies a cough or hemoptysis. No fevers or chills. Denies any abdominal pain. Does report to continued right lower extremity weakness. States it feels a little bit worsened today. She does have a history of alcohol abuse. States that she normally drinks 2 glasses of wine at night to sleep. Denies drinking any alcohol today. There are no other alleviating, precipitating or modifying factors - Related Data Home Medications Medication Instructions Recorded Confirmed Aspirin EC [Ecotrin Low Dose] 81 mg PO DAILY 02/11/19 09/10/19 Atorvastatin Calcium [Lipitor] 80 mg PO HS 08/05/19 09/10/19 Ticagrelor [Brilinta] 90 mg PO BID 08/05/19 09/10/19 amLODIPine [Norvasc] 5 mg PO DAILY 08/05/19 09/10/19 Isosorbide Mononitrate ER [Imdur] 30 mg PO DAILY 09/10/19 09/11/19 Pantoprazole [Protonix] 40 mg PO BID 09/10/19 09/10/19 Fluticasone Nasal [place] [Flonase 2 sprays EA NOSTRIL DAILY 09/12/19 09/12/19 Nasal [place]] Previous Rx's Medication Instructions Recorded Celecoxib [CeleBREX] 200 mg PO DAILY #30 cap 08/06/19 Allergies Allergy/AdvReac Type Severity Reaction Status Date / Time Influenza Virus Vaccines AdvReac Nausea & Verified 09/10/19 18:28 Vomiting morphine AdvReac Nausea & Verified 09/10/19 18:28 Vomiting Review of Systems ROS Statement: Those systems with pertinent positive or pertinent negative responses have been documented in the HPI. ROS Other: All systems not noted in ROS Statement are negative. EKG Findings - EKG Comments: EKG Findings:: EKG demonstrates a normal sinus rhythm with a ventricular rate of 93. VT interval is 126. QRS 80. QTC 462. There are inverted T waves in leads V2 through V6. Also in leads 1, 2 and aVL. The patient has a Q-wave in lead 3. Inverted T waves appear similar to previous EKG. Q-wave in lead 3 is new Past Medical History Past Medical History: Asthma, CVA/TIA, Myocardial Infarction ([place]), Seizure Disorder Additional Past Medical History / Comment(s): DDD Last Myocardial Infarction Date:: aug 2018 History of Any Multi-Drug Resistant Organisms: None Reported Past Surgical History: Cholecystectomy, Joint Replacement, Orthopedic Surgery Additional Past Surgical History / Comment(s): bartholin gland cyst removal, stent placed Past Anesthesia/Blood Transfusion Reactions: No Reported Reaction Past Psychological History: Anxiety, Depression Smoking Status: Current some day smoker Past Alcohol Use History: Daily Past Drug Use History: Marijuana - Past Family History Mother Family Medical History: Cancer, Congestive Heart Failure (CHF), Coronary Artery Disease (CAD), Hyperlipidemia Father Family Medical History: Cancer, COPD General Exam Limitations: no limitations General appearance: alert, in no apparent distress, appears intoxicated Head exam: Present: atraumatic, normocephalic, normal inspection Eye exam: Present: normal appearance, PERRL, EOMI. Absent: scleral icterus, conjunctival injection, periorbital swelling ENT exam: Present: normal exam, mucous membranes moist Neck exam: Present: normal inspection. Absent: tenderness, meningismus, lymphadenopathy Respiratory exam: Present: normal lung sounds bilaterally. Absent: respiratory distress, wheezes, rales, rhonchi, stridor Cardiovascular Exam: Present: regular rate, normal rhythm, normal heart sounds. Absent: systolic murmur, diastolic murmur, rubs, gallop, clicks GI/Abdominal exam: Present: soft, normal bowel sounds. Absent: distended, tenderness, guarding, rebound, rigid Extremities exam: Present: normal capillary refill, other. Absent: tenderness, pedal edema (4/5 weakness in the right lower leg ), joint swelling, calf tenderness Back exam: Present: normal inspection Neurological exam: Present: alert, oriented X3, CN II-XII intact Psychiatric exam: Present: normal affect, normal mood Skin exam: Present: warm, dry, intact, normal color. Absent: rash Course Vital Signs 09/10/19 09/10/19 09/10/19 17:19 21:29 22:54 Temperature 97.7 F Pulse Rate 96 101 H 104 H Pulse Rate [ Pulse Oximetery ] Respiratory 22 20 20 Rate Blood Pressure 140/101 129/79 130/90 Blood Pressure [Right Arm] O2 Sat by Pulse 99 98 96 Oximetry 09/10/19 09/11/19 23:34 00:00 Temperature 97.6 F 97.6 F Pulse Rate Pulse Rate [ 110 H 110 H Pulse Oximetery ] Respiratory 16 16 Rate Blood Pressure Blood Pressure 122/92 122/92 [Right Arm] O2 Sat by Pulse 98 98 Oximetry Chest Pain MDM - MDM Upon arrival the patient is placed into room 5. A thorough history and physical exam was performed. A 12-lead EKG is performed which demonstrates new Q waves in lead 3. I did recommend laboratory studies. She was given 4 chewable aspirins. Laboratory studies demonstrate a hemoglobin of 9.6 which is at the patient's baseline. D-dimer 0.38. First troponin is negative. BNP 217. Alcohol elevated at 236. Urinalysis is negative. I did CT the patient's brain because of her reported right lower extremity weakness and unsure if this is worsened. It does demonstrate small subacute lacunar infarct left anterior parietal lobe unchanged. Cortical hypodensities that measures 2.5 cm left posterior parietal lobe consistent with subacute cortical infarct that is more well defined. No evidence of new infarct. A chest x-ray is also performed which demonstrates no acute findings. The patient does report to continued back pain upon reevaluation. She denies any chest pain. I did provide her with a [place]. I evaluated the patient's chart and it does state that the patient had a stress test in November 2018 at [facility]. She did have ischemia noted upon exercise. She reports he follows with Dr. Vidal in office however her calf has been delayed because of her recent medical illnesses. I do recommend hospital admission for which the patient did agree. I called and discussed the case with Dr. Marshall who accepted admission. The patient will not be heparinized that she is currently on Brilinta. She is currently awaiting a bed on the floor Disposition Clinical Impression: Alcohol intoxication, Chest pain Disposition: ADMITTED IP TO THIS HOSP Condition: Serious Is patient prescribed a controlled substance at d/c from ED?: No Decision to Admit Reason: Admit from EC Decision Date: 09/10/19 Decision Time: 23:09
[2019-09-10 19:53] LABS: ALT 90 U/L (9-52); AST 217 U/L (14-36); African American GFR (CKD) >90 (>60 ml/min/1.73 sqM); Alkaline Phosphatase 187 U/L (38-126); Anion Gap 14 mmol/L; Blood Urea Nitrogen 4 mg/dL (7-17); Calcium 8.7 mg/dL (8.4-10.2); Carbon Dioxide 26 mmol/L (22-30); Chloride 101 mmol/L (98-107); Glucose 97 mg/dL (74-99); Magnesium 1.9 mg/dL (1.6-2.3); Potassium 3.8 mmol/L (3.5-5.1); Sodium 141 mmol/L (137-145); Total Bilirubin 0.3 mg/dL (0.2-1.3); Total Protein 7.4 g/dL (6.3-8.2)
[2019-09-10 20:26] LABS: Appearance,Urine Clear (Clear); Bilirubin,Urine Negative (Negative); Blood,Urine Negative (Negative); Color,Urine Light Yellow; Glucose,Urine (UA) Negative (Negative); Ketones,Urine Negative (Negative); Leukocyte Esterase,Urine Negative (Negative); Nitrite,Urine Negative (Negative); PH, Urine 5.5 (5.0-8.0); Protein,Urine Negative (Negative); Specific Gravity,Urine 1.003 (1.001-1.035); Urobilinogen,Urine <2.0 mg/dL (<2.0)
[2019-09-10] MEDS ORDERED: LIDOCAINE 1% INJ 10MG/ML (20 ML MDV) SQ ONE (21:19)
[2019-09-10 21:49] LABS: INR 0.9 (<1.2)
[2019-09-10 21:50] LABS: D-Dimer 0.38 mg/L FEU (<0.60)
[2019-09-10 21:53] LABS: Partial Thromboplastin Time 21.6 sec (22.0-30.0)
--- NOTE | 2019-09-10 22:28 | CT ---
EXAMINATION TYPE: CT brain wo con DATE OF EXAM: 09/10/2019 COMPARISON: 08/05/2019 HISTORY: Dizziness and right leg weakness CT DLP: 1054.4 mGycm Automated exposure control for dose reduction was used. FINDINGS: There is cerebral cortical atrophy. There is no mass effect nor midline shift. There is no sign of in tracranial hemorrhage. There is high density rounded mass at the anterior aspect of the third ventric le that measures 12 mm consistent with simple colloid cyst. Unchanged. There is 2.5 cm area of cortical hypodensity left posterior parietal lobe convexity. Calvarium is intact. There is diamond matter hypodensity in the left parietal lobe white matter consistent with some chronic small vessel ischemia. IMPRESSION: SMALL SUBACUTE LACUNAR INFARCT LEFT ANTERIOR PARIETAL LOBE UNCHANGED. CORTICAL HYPODENSITY THAT MEASU RES 2.5 CM LEFT POSTERIOR PARIETAL LOBE CONSISTENT WITH SUBACUTE CORTICAL INFARCT THAT IS MORE WELL-D EFINED THAN RECENT EXAM. NO EVIDENCE OF A NEW INFARCT.
[2019-09-10] MEDS ORDERED: HYDROcodone/APAP 5-325MG 1 EACH TAB PO STA (23:08)
[2019-09-10] MEDS ORDERED: NALOXONE 0.4 MG/ML 1 ML VIAL IV PRN (23:09)
--- NOTE | 2019-09-10 23:27 | XR ---
EXAMINATION TYPE: XR chest 2V DATE OF EXAM: 09/10/2019 COMPARISON: 09/04/2019 HISTORY: Difficulty breathing TECHNIQUE: Frontal and lateral views of the chest are obtained. FINDINGS: There is minimal subsegmental atelectasis left lower lobe. The other lung galvan are clear . Heart size is normal. There is no heart failure. There are chest leads. IMPRESSION: Mild left side subsegmental atelectasis is a change compared to old exam. Normal heart.
[2019-09-10] MEDS: NICOTINE 14MG/24HR PATCH TRANSDERM SCH ×2 (23:55→23:56)
[2019-09-10] MEDS: ATORVASTATIN 80 MG TAB PO SCH (23:56)
[2019-09-11] MEDS: TICAGRELOR 90 MG TAB PO SCH ×3 (00:46→21:04)
[2019-09-11 01:02] VITALS: BMI 27.3
[2019-09-11] MEDS ORDERED: ACETAMINOPHEN TAB 325 MG TAB PO PRN (01:18)
[2019-09-11] MEDS: FAMOTIDINE 20 MG TAB PO PRN (01:40)
[2019-09-11] MEDS ORDERED: SODIUM CHLORIDE 0.9% 500 ML 500 ML IV ONE (02:21)
[2019-09-11 02:22] LABS: Glucose,Whole Blood 139 mg/dL (75-99)
[2019-09-11] MEDS ORDERED: LORazepam 2 MG/ML INJ IV PRN ×3 (02:49)
[2019-09-11] MEDS ORDERED: ONDANSETRON 4 MG/2 ML VIAL IVP PRN (02:49)
[2019-09-11 06:04] LABS: Glucose,Whole Blood 133 mg/dL (75-99)
[2019-09-11 07:08] LABS: Anisocytosis Moderate; Basophils # (A) 0.1 k/uL (0-0.2); Basophils % (A) 2 %; Eosinophils # (A) 0.1 k/uL (0-0.7); Eosinophils % (A) 1 %; HCT 26.6 % (34.0-46.0); Hypochromasia Marked; Lymphocytes # (A) 1.1 k/uL (1.0-4.8); Lymphocytes % (A) 17 %; MCHC 29.7 g/dL (31.0-37.0); MCV 87.4 fL (80.0-100.0); Mean Platelet Volume 6.3; Monocytes # (A) 0.3 k/uL (0-1.0); Monocytes % (A) 5 %; Neutrophils # (A) 4.6 k/uL (1.3-7.7); Neutrophils % (A) 72 %; Platelet Count 189 k/uL (150-450); Poikilocytosis Slight; RBC 3.05 m/uL (3.80-5.40); RDW 20.3 % (11.5-15.5); WBC 6.4 k/uL (3.8-10.6)
[2019-09-11 07:16] LABS: HGB 7.9 gm/dL (11.4-16.0)
[2019-09-11 07:19] LABS: ALT 78 U/L (9-52); AST 142 U/L (14-36); African American GFR (CKD) >90 (>60 ml/min/1.73 sqM); Albumin 3.3 g/dL (3.5-5.0); Alkaline Phosphatase 163 U/L (38-126); Anion Gap 7 mmol/L; Blood Urea Nitrogen 6 mg/dL (7-17); Calcium 8.1 mg/dL (8.4-10.2); Carbon Dioxide 29 mmol/L (22-30); Chloride 104 mmol/L (98-107); Glucose 124 mg/dL (74-99); Potassium 3.4 mmol/L (3.5-5.1); Sodium 140 mmol/L (137-145); Total Bilirubin 0.3 mg/dL (0.2-1.3); Total Protein 6.2 g/dL (6.3-8.2)
[2019-09-11] MEDS: PANTOPRAZOLE 40 MG TABLET PO SCH ×2 (09:41→21:04)
[2019-09-11] MEDS: amLODIPine 5 MG TAB PO SCH (09:41)
[2019-09-11] MEDS: ASPIRIN 81 MG PO SCH (09:41)
--- NOTE | 2019-09-11 10:49 | ECHOF ---
Referral Reason:Stroke MEASUREMENTS -------- HEIGHT: 157.5 cm WEIGHT: 67.6 kg BP: 131/77 RVIDd: 2.7 cm (< 3.3) IVSd: 1.4 cm (0.6 - 1.1) LVIDd: 4.1 cm (3.9 - 5.3) LVPWd: 1.4 cm (0.6 - 1.1) IVSs: 1.7 cm LVIDs: 3.0 cm LVPWs: 1.6 cm LA Diam: 3.0 cm (2.7 - 3.8) LAESV Index (A-L): 19.05 ml/m Ao Diam: 2.7 cm (2.0 - 3.7) AV Cusp: 1.3 cm (1.5 - 2.6) MV EXCURSION: 10.738 mm (> 18.000) MV EF SLOPE: 43 mm/s (70 - 150) EPSS: 0.5 cm MV E Rodrigo: 0.79 m/s MV DecT: 195 ms MV A Rodrigo: 1.00 m/s MV E/A Ratio: 0.79 FINDINGS -------- Sinus rhythm. This was a technically adequate study. The left ventricular size is normal. There is moderate concentric left ventricular hypertrophy. O verall left ventricular systolic function is normal with, an EF between 60 - 65 %. The right ventricle is normal in size. Normal LA size by volume 22+/-6 ml/m2. The right atrium is normal in size. Interatrial and interventricular septum intact. There is mild aortic valve sclerosis. The mitral valve is normal. The tricuspid valve appears structurally normal. The pulmonic valve was not well visualized. The aortic root size is normal. IVC Not well visulized. There is no pericardial effusion. CONCLUSIONS -------- 1. Sinus rhythm. 2. This was a technically adequate study. 3. The left ventricular size is normal. 4. There is moderate concentric left ventricular hypertrophy. 5. Overall left ventricular systolic function is normal with, an EF between 60 - 65 %. 6. The right ventricle is normal in size. 7. Normal LA size by volume 22+/-6 ml/m2. 8. The right atrium is normal in size. 9. Interatrial and interventricular septum intact. 10. There is mild aortic valve sclerosis. 11. The mitral valve is normal. 12. The tricuspid valve appears structurally normal. 13. The pulmonic valve was not well visualized. 14. The aortic root size is normal. 15. IVC Not well visulized. 16. There is no pericardial effusion. TELEVISION MAINTENANCE MAN: Poppy Valenzuela RDCS
[2019-09-11 11:32] LABS: Glucose,Whole Blood 139 mg/dL (75-99)
--- NOTE | 2019-09-11 11:42 | P.CNNES ---
History of Present Illness Consult date: 09/11/19 Reason for Consult: Seizure activity Chief complaint: Seizure activity History of Present Illness: HISTORY OF PRESENT ILLNESS: Thank you for allowing me to evaluate Ms. Samir Valladares. Ms. Valladares is a 59-year-old woman with past medical history of asthma, stroke with residual right-sided weakness, NJ, seizure disorder, DDD, presented to [facility] for chest pain, consulted neurology for seizure activity. RN states that patient was getting worked for ACS when patient had an episode of staring off and then having projective vomiting right after. Patient did not seem confused afterwards. Patient had an NJ in 08/2018 and stroke in 06/2019, for which patient had L carotid artery stent placed at [facility] in 07/2019, ever since, started on ASA and Brilinta. Regarding seizure history, patient states that she had two episodes in her life time, first in 1977 and second in 2007, never in setting of heaving drinking. The one in 2007, patient knew she was gonna have an episode and then she "just had it." She doesn't remember the episodes very well, but she doesn't think she had any urinary/bowel incontinence or tongue biting. Patient has never been on seizure medications. Patient doesn't know much about her history, but patient states she's fallen and hit her head in an ice rink and also in her porch a couple of years ago where she fell backwards and hit her head. Did not lose consciousness. Patient reports that her sister started living with her recently because her sister got evicted and also with her recent stroke/procedure, she thought her sister could help her. Unfortunately, she's become very anxious during this time period, which led her to increase her EtOH intake. patient usually takes 2 glasses of wine, but recently, she drank 5 glasses of wine and several sips of whiskey. PAST MEDICAL HISTORY: asthma, stroke with residual right-sided weakness, NJ, seizure disorder, DDD PAST SURGICAL HISTORY: Cholecystectomy, joint replacement, left carotid stent placement HOME MEDICATIONS: Aspirin, amlodipine, atorvastatin, Brilinta, Celebrex, pantoprazole ALLERGIES: Influenza vaccine, morphine SOCIAL HISTORY: Current every day smoker (used to smoke 1 ppd, now down to smoking 3-6 cigarettes/day). Drinks every day. Endorses marijuana use FAMILY HISTORY: Father with cancer and COPD. Mother with cancer, CHF, coronary artery disease, hyperlipidemia REVIEW OF SYSTEMS: The 14 systems are reviewed and no additional points are identified compared to the review of systems documented history and physical PHYSICAL EXAMINATION: VITAL SIGNS: T 97.6 HR 110 RR 16 BP 122/92 O2 sat 98% on RA GEN.: NAD, pleasant and cooperative HEENT: NCAT, sclera without icterus NECK: Supple SKIN AND EXTREMITIES: Warm to touch, no edema NEURO: MENTAL STATUS: Patient alert and oriented to self, place, time. Able to name the current president. Speech fluent, able to name and repeat, following all commands readily. No right and left disorientation, extinction to double simultaneous stimulation, finger agnosia, neglect. CRANIAL NERVES II THROUGH XII: II: Pupils are equal and reactive to light symmetrically. No afferent pupillary defect. Visual galvan are intact. III, IV, : No ptosis. Extraocular movements full. No nystagmus. V: Facial sensation intact from V1-3. VII. No clear facial asymmetry. VIII: Hearing intact to finger rub bilaterally. IX, X: Symmetric palate elevation. XI: Shoulder shrug intact. XII: Tongue midline without fasciculation or atrophy. MOTOR: Normal bulk/tone. No pronator drift or tremor. Strength is 5/5 in LUE/LLE. 4+/5 in RUE. 4/5 in RLE. SENSORY: Intact to light touch in all 4 extremities. REFLEXES: 2+ in b/l UE. 1+ in b/l UE. Toes are downgoing. COORDINATION: Finger to nose and heel to beal intact. No dysmetria. Rapid alt ernating movements with good speed and accuracy. GAIT: Narrow-based and cautious. Difficulty with walking on toes and heels. DIAGNOSTIC TESTING: LABORATORY: WBC 6.4 hemoglobin 7.9 platelet 189 INR 0.9 PTT 10.0 sodium 140 potassium 3.4 chloride 104 bicarb 29 BUN 6 creatinine 0.61 glucose 124 AST 142 ALT 78 alkphos 163 troponin <0.012 alcohol 236 IMAGING: CT head without contrast 09/10/2019: Small subacute lacunar infarct left parietal lobe unchanged. Cortical hypodensity that measures 2.5 cm left posterior parietal lobe consistent with subacute cortical infarct that is more in well-defined and recent exam. No evidence of a new infarct. Unchanged size of choroid cyst during 12 mm compared to 08/05/2019 study. ASSESSMENT: 59-year-old woman with past medical history of asthma, stroke with residual right-sided weakness, NJ, seizure disorder, DDD, presented to [facility] for chest pain, consulted neurology for seizure activity. Patient with history of possible seizure episodes in the past, this would be her 3rd episode. Patient denies ever having EtOH withdrawal symptoms. In regards to her stroke, patient is s/p L carotid artery stent placement with no worsening symptoms. RECOMMENDATIONS: 1. Routine EEG 2. Patient most likely had full stroke work-up, stroke most likely from her carotid atherosclerosis, s/p L carotid artery stent. 3. Continue with ASA 81mg qday and Brilinta 4. Continue withAtorvastatin 80mg qhs 5. Labs: A1C, TSH, FLP 6. PT/OT/ST per protocol 7. Neurology will continue to follow 8. Patient needs to follow up with neurologist as outpatient with her 1-2 weeks of discharge Past Medical History Past Medical History: Asthma, CVA/TIA, Myocardial Infarction (NJ), Seizure Disorder Additional Past Medical History / Comment(s): DDD, CVA , Left carotid 2019 Last Myocardial Infarction Date:: aug 2018 History of Any Multi-Drug Resistant Organisms: None Reported Past Surgical History: Cholecystectomy, Joint Replacement, Orthopedic Surgery Additional Past Surgical History / Comment(s): bartholin gland cyst removal, stent placed Past Anesthesia/Blood Transfusion Reactions: No Reported Reaction Past Psychological History: Anxiety, Depression Smoking Status: Former smoker Past Alcohol Use History: Daily Additional Past Alcohol Use History / Comment(s): Patient is an active smoker but has decreased her intake. She is also has history of alcohol abuse. Pt states she has increased her intake of wine and whisky in the ladt few months. Pt states she is using it to decrease her anxiety Past Drug Use History: Marijuana - Past Family History Mother Family Medical History: Cancer, Congestive Heart Failure (CHF), Coronary Artery Disease (CAD), Hyperlipidemia Father Family Medical History: Cancer, COPD Medications and Allergies Home Medications Medication Instructions Recorded Confirmed Type Aspirin EC [Ecotrin Low Dose] 81 mg PO DAILY 02/11/19 09/10/19 History Atorvastatin Calcium [Lipitor] 80 mg PO HS 08/05/19 09/10/19 History Ticagrelor [Brilinta] 90 mg PO BID 08/05/19 09/10/19 History amLODIPine [Norvasc] 5 mg PO DAILY 08/05/19 09/10/19 History Celecoxib [CeleBREX] 200 mg PO DAILY #30 cap 08/06/19 09/10/19 Rx Isosorbide Mononitrate ER [Imdur] 30 mg PO DAILY 09/10/19 09/11/19 History Pantoprazole [Protonix] 40 mg PO BID 09/10/19 09/10/19 History Allergies Allergy/AdvReac Type Severity Reaction Status Date / Time Influenza Virus Vaccines AdvReac Nausea & Verified 09/10/19 18:28 Vomiting morphine AdvReac Nausea & Verified 09/10/19 18:28 Vomiting Physical Examination - Vital Signs Vital Signs: Vital Signs Temp Pulse Pulse Resp BP BP BP 09/11/19 03:52 107 H 16 131/77 09/11/19 02:32 09/11/19 02:16 102 H 20 132/77 09/11/19 02:15 119 H 98/57 09/11/19 00:00 97.6 F 110 H 16 122/92 09/10/19 23:34 97.6 F 110 H 16 122/92 09/10/19 22:54 104 H 20 130/90 09/10/19 21:29 101 H 20 129/79 09/10/19 17:19 97.7 F 96 22 140/101 Pulse Ox 09/11/19 03:52 99 09/11/19 02:32 99 09/11/19 02:16 99 09/11/19 02:15 09/11/19 00:00 98 09/10/19 23:34 98 09/10/19 22:54 96 09/10/19 21:29 98 09/10/19 17:19 99 Intake and Output 09/10/19 09/11/19 09/11/19 22:59 06:59 14:59 Intake Total 720 Balance 720 Intake: IV 150 0.9@75 150 Amount of Fluid Infused ( 20 ml) Intake, IV Titration 500 Amount Sodium Chloride 0.9% 500 500 ml 500 ml @ 999 mls/hr IV .Q31M ONE Rx#:[id number] Oral 50 Other: # Voids 1 Weight 67.857 kg 68 kg Results - Laboratory Findings CBC and BMP: 09/11/19 06:47 09/11/19 06:47 Abnormal Lab Findings: Abnormal Labs 09/10/19 09/10/19 09/10/19 18:13 19:20 21:00 RBC 3.59 L Hgb 9.6 L Hct 31.7 L MCHC 30.4 L RDW 19.7 H APTT 21.6 L Potassium BUN 4 L Glucose POC Glucose (mg/dL) Calcium AST 217 H ALT 90 H Alkaline Phosphatase 187 H Total Protein Albumin Serum Alcohol 09/10/19 09/11/19 09/11/19 21:00 02:10 06:03 RBC Hgb Hct MCHC RDW APTT Potassium BUN Glucose POC Glucose (mg/dL) 139 H 133 H Calcium AST ALT Alkaline Phosphatase Total Protein Albumin Serum Alcohol 236 H* 09/11/19 09/11/19 06:47 06:47 RBC 3.05 L Hgb 7.9 L D Hct 26.6 L MCHC 29.7 L RDW 20.3 H APTT Potassium 3.4 L BUN 6 L Glucose 124 H POC Glucose (mg/dL) Calcium 8.1 L AST 142 H ALT 78 H Alkaline Phosphatase 163 H Total Protein 6.2 L Albumin 3.3 L Serum Alcohol
--- NOTE | 2019-09-11 14:57 | P.HPIM ---
History of Present Illness H&P Date: 09/11/19 Chief Complaint: Chest pain This is a 59-year-old female patient of Dr. العلي with a past medical history of coronary artery disease, hypertension, seasonal ALLERGIES, gastroesophageal reflux disease, CVA. Patient presented to [facility] emergency center on July 26 with right upper and lower extremity weakness and difficulty with speech that had been going on for [address] angiography of the head and neck showed severe, 90% stenosis at the proximal left ICA. The left bifurcation is located 3 cm below the angle of the mandible. Mild, less than 50% narrowing proximal right ICA. CT brain without contrast showed a 1 cm hyperdense collates is in the region of the [place] of [place]. Note that this has been associated positional life-threatening hydrocephalus. No hydrocephalus at this time. Moderate patchy changes of chronic small vessel ischemic disease particularly in the left cerebral hemisphere. More focal area of cortical/subcortical hypodensity anterior left parietal lobe could represent an area of subacute infarct given weakness for 2 weeks. Case was discussed with Dr. Queen and patient was transferred to [facility] for carotid endarterectomy. Patient was to be on dual antiplatelet therapy with aspirin and Brilinta and also atorvastin. Patient was seen at [facility] as an admission on August 06 at which time she presented with right lower extremity pain and weakness secondary to lumbar radiculopathy and was discharged home. Patient now gives history of having a stress test done a couple years ago as Dr. Guzmán was planning on doing a carotid surgery at that time. This apparently was a normal stress test. In August 2018 she apparently had a myocardial infarction which she discovered in November 2018 and underwent a stress test at that time at [facility] which was apparently reported as abnormal and patient was to undergo heart catheterization but due to other issues this is been delayed. This is reported per patient. She complains of chest pain that started yesterday in the center of her chest and on the left side and also away to the left lateral area as well at times. She states she also had some shortness of breath. She is not sure how long this happened or if she is had other episodes. Patient is very vague. Patient also had an episode where she w as staring off and then had projectile vomiting following that but did not seem confused afterwards. This was witnessed by the nurse. Patient is also noted to have a drop in her hemoglobin which was normal and July of this year at 12.3 now down to 7.9. Patient has not noticed any bloody or tarry stools. Regarding alcohol use, patient states that she daily drinks 2 glasses of wine in a couple sips of whiskey. She is also an active smoker and active marijuana use. She states that she did have an appointment with Dr. abdirahman gonzalez on outpatient labwork done at [facility] but did not go back for follow-up. Patient came into [facility] emergency center for evaluation. She was found initially to have a hemoglobin 9.6 and repeat 7.9, platelet count 189, potassium 3.4 and has been replaced. Creatinine 0.61. Total bilirubin 0.3, AST 142, ALT 78, alkaline phosphatase 163. Triglycerides 162, cholesterol 222, LDL 145, HDL 45, TSH 3.580. Urinalysis was clear. Serum alcohol level 236. She has been afebrile, initial heart rate was elevated as well as low blood pressure. Currently she is running a heart rate of 100, blood pressures 135/95 and pulse ox 99% on room air. Chest x-rays showed mild subsegmental atelectasis. CAT scan of the brain showed small subacute lacunar infarct left anterior parietal lobe unchanged. Cortical hypodensity that measures 2.5 cm left posterior parietal lobe consistent with subacute cortical infarct that is more well defined than recent exam. No evidence of new infarct. Patient admitted to the cardiac stepdown unit and consult requested with cardiology due to chest pain and reported by patient abnormal stress test done at [facility], neurology for possible seizure activity and a GI for anemia. Review of Systems Constitutional: Reports fatigue, Reports poor appetite, Reports weakness, Denies chills, Denies fever Eyes: denies blurred vision, denies pain Cardiovascular: Reports chest pain, Denies edema, Denies lightheadedness, Denies palpitations, Denies shortness of breath, Denies syncope Respiratory: Denies cough, Denies cough with sputum, Denies dyspnea, Denies hemoptysis, Denies home oxygen, Denies respiratory infections, Denies wheezing Gastrointestinal: Denies abdominal pain, Denies coffee ground emesis, Denies diarrhea, Denies hematemesis, Denies hematochezia, Denies loss of appetite, Denies melena, Denies nausea, Denies vomiting Genitourinary: Denies dysuria, Denies hematuria, Denies urgency Musculoskeletal: Denies muscle weakness, Denies myalgias Integumentary: Denies pruritus, Denies rash, Denies wounds Neurological: Reports change in mentation, Denies numbness, Denies weakness Psychiatric: Denies anxiety, Denies depression Past Medical History Past Medical History: Asthma, CVA/TIA, Myocardial Infarction (MD), Seizure Disorder Additional Past Medical History / Comment(s): DDD, CVA , Left carotid 2019 Last Myocardial Infarction Date:: aug 2018 History of Any Multi-Drug Resistant Organisms: None Reported Past Surgical History: Cholecystectomy, Joint Replacement, Orthopedic Surgery Additional Past Surgical History / Comment(s): bartholin gland cyst removal, stent placed Past Anesthesia/Blood Transfusion Reactions: No Reported Reaction Past Psychological History: Anxiety, Depression Smoking Status: Former smoker Past Alcohol Use History: Daily Additional Past Alcohol Use History / Comment(s): Patient is an active smoker since age 18 currently cut back to 36 cigarettes per day. She uses marijuana on a daily basis. She is also has history of alcohol abuse and reports that she is drinking 2 glasses of wine a couple sips of was skate every day. She uses a walker at home and is currently on disability. Past Drug Use History: Marijuana - Past Family History Mother Family Medical History: Cancer, Congestive Heart Failure (CHF), Coronary Artery Disease (CAD), Hyperlipidemia Father Family Medical History: Cancer, COPD Medications and Allergies Home Medications Medication Instructions Recorded Confirmed Type Aspirin EC [Ecotrin Low Dose] 81 mg PO DAILY 02/11/19 09/10/19 History Atorvastatin Calcium [Lipitor] 80 mg PO HS 08/05/19 09/10/19 History Ticagrelor [Brilinta] 90 mg PO BID 08/05/19 09/10/19 History amLODIPine [Norvasc] 5 mg PO DAILY 08/05/19 09/10/19 History Celecoxib [CeleBREX] 200 mg PO DAILY #30 cap 08/06/19 09/10/19 Rx Isosorbide Mononitrate ER [Imdur] 30 mg PO DAILY 09/10/19 09/11/19 History Pantoprazole [Protonix] 40 mg PO BID 09/10/19 09/10/19 History Allergies Allergy/AdvReac Type Severity Reaction Status Date / Time Influenza Virus Vaccines AdvReac Nausea & Verified 09/10/19 18:28 Vomiting morphine AdvReac Nausea & Verified 09/10/19 18:28 Vomiting Physical Exam Vitals: Vital Signs Temp Pulse Pulse Resp BP BP BP 09/11/19 12:00 97 F L 100 16 135/95 09/11/19 08:00 96.4 F L 104 H 20 139/86 09/11/19 03:52 107 H 16 131/77 09/11/19 02:32 09/11/19 02:16 102 H 20 132/77 09/11/19 02:15 119 H 98/57 09/11/19 00:00 97.6 F 110 H 16 122/92 09/10/19 23:34 97.6 F 110 H 16 122/92 09/10/19 22:54 104 H 20 130/90 09/10/19 21:29 101 H 20 129/79 09/10/19 17:19 97.7 F 96 22 140/101 Pulse Ox 09/11/19 12:00 99 09/11/19 08:00 100 09/11/19 03:52 99 09/11/19 02:32 99 09/11/19 02:16 99 09/11/19 02:15 09/11/19 00:00 98 09/10/19 23:34 98 09/10/19 22:54 96 09/10/19 21:29 98 09/10/19 17:19 99 Intake and Output 09/10/19 09/11/19 09/11/19 22:59 06:59 14:59 Intake Total 720 Balance 720 Intake: IV 150 0.9@75 150 Amount of Fluid Infused ( 20 ml) Intake, IV Titration 500 Amount Sodium Chloride 0.9% 500 500 ml 500 ml @ 999 mls/hr IV .Q31M ONE Rx#:[id number] Oral 50 Other: # Voids 1 Weight 67.857 kg 68 kg Gen: This is an obese 59-year-old female. She is in a sitting in bed and appears to be comfortable and in no acute distress. HEENT: Head is atraumatic, normocephalic. Pupils equal, round. Sclerae is anicteric. NECK: Supple. No JVD. No lymphadenopathy. No thyromegaly. LUNGS: Clear to auscultation. No wheezes or rhonchi. No intercostal retractions. HEART: Regular rate and rhythm. No murmur. ABDOMEN: Soft. Bowel sounds are present. No masses. No tenderness. EXTREMITIES: No pedal edema. No calf tenderness. Significant edema to the left hand secondary to infiltration from IV fluids. NEUROLOGICAL: Patient is awake, alert and oriented x3. Cranial nerves 2 through 12 are grossly intact. Results CBC & Chem 7: 09/11/19 06:47 09/11/19 06:47 Labs: Abnormal Lab Results - Last 24 Hours (Table) 09/10/19 09/10/19 09/10/19 Range/Units 18:13 19:20 21:00 RBC 3.59 L (3.80-5.40) m/uL Hgb 9.6 L (11.4-16.0) gm/dL Hct 31.7 L (34.0-46.0) % MCHC 30.4 L (31.0-37.0) g/dL RDW 19.7 H (11.5-15.5) % APTT 21.6 L (22.0-30.0) sec Potassium (3.5-5.1) mmol/L BUN 4 L (7-17) mg/dL Glucose (74-99) mg/dL POC Glucose (mg/dL) (75-99) mg/dL Calcium (8.4-10.2) mg/dL AST 217 H (14-36) U/L ALT 90 H (9-52) U/L Alkaline Phosphatase 187 H (38-126) U/L Total Protein (6.3-8.2) g/dL Albumin (3.5-5.0) g/dL Triglycerides (<150) mg/dL Cholesterol (<200) mg/dL LDL Cholesterol, Calc (0-99) mg/dL Serum Alcohol mg/dL 09/10/19 09/11/19 09/11/19 Range/Units 21:00 02:10 06:03 RBC (3.80-5.40) m/uL Hgb (11.4-16.0) gm/dL Hct (34.0-46.0) % MCHC (31.0-37.0) g/dL RDW (11.5-15.5) % APTT (22.0-30.0) sec Potassium (3.5-5.1) mmol/L BUN (7-17) mg/dL Glucose (74-99) mg/dL POC Glucose (mg/dL) 139 H 133 H (75-99) mg/dL Calcium (8.4-10.2) mg/dL AST (14-36) U/L ALT (9-52) U/L Alkaline Phosphatase (38-126) U/L Total Protein (6.3-8.2) g/dL Albumin (3.5-5.0) g/dL Triglycerides (<150) mg/dL Cholesterol (<200) mg/dL LDL Cholesterol, Calc (0-99) mg/dL Serum Alcohol 236 H* mg/dL 09/11/19 09/11/19 09/11/19 Range/Units 06:47 06:47 06:47 RBC 3.05 L (3.80-5.40) m/uL Hgb 7.9 L D (11.4-16.0) gm/dL Hct 26.6 L (34.0-46.0) % MCHC 29.7 L (31.0-37.0) g/dL RDW 20.3 H (11.5-15.5) % APTT (22.0-30.0) sec Potassium 3.4 L (3.5-5.1) mmol/L BUN 6 L (7-17) mg/dL Glucose 124 H (74-99) mg/dL POC Glucose (mg/dL) (75-99) mg/dL Calcium 8.1 L (8.4-10.2) mg/dL AST 142 H (14-36) U/L ALT 78 H (9-52) U/L Alkaline Phosphatase 163 H (38-126) U/L Total Protein 6.2 L (6.3-8.2) g/dL Albumin 3.3 L (3.5-5.0) g/dL Triglycerides 162 H (<150) mg/dL Cholesterol 222 H (<200) mg/dL LDL Cholesterol, Calc 145 H (0-99) mg/dL Serum Alcohol mg/dL 09/11/19 Range/Units 11:31 RBC (3.80-5.40) m/uL Hgb (11.4-16.0) gm/dL Hct (34.0-46.0) % MCHC (31.0-37.0) g/dL RDW (11.5-15.5) % APTT (22.0-30.0) sec Potassium (3.5-5.1) mmol/L BUN (7-17) mg/dL Glucose (74-99) mg/dL POC Glucose (mg/dL) 139 H (75-99) mg/dL Calcium (8.4-10.2) mg/dL AST (14-36) U/L ALT (9-52) U/L Alkaline Phosphatase (38-126) U/L Total Protein (6.3-8.2) g/dL Albumin (3.5-5.0) g/dL Triglycerides (<150) mg/dL Cholesterol (<200) mg/dL LDL Cholesterol, Calc (0-99) mg/dL Serum Alcohol mg/dL Thrombosis Risk Factor Assmnt - DVT/VTE Prophylaxis DVT/VTE Prophylaxis: Mechanical Prophylaxis ordered - Choose All That Apply Any of the Below Risk Factors Present?: Yes Each Factor Represents 1 point: Acute MD, Age 41-60 years, Obesity (BMI >25) Other Risk Factors: No Other congenital or acquired thrombophilia - If yes, enter type in comment: No Thrombosis Risk Factor Assessment Total Risk Factor Score: 3 Thrombosis Risk Factor Assessment Level: Moderate Risk Assessment and Plan Plan: 1. Sternal, left-sided chest pain with reported history of positive stress test. Cardiology consult. Initial troponin negative. 2. Staring episode possible seizure activity. Consult with neurology, EEG. 3. Anemia, probable acute on chronic blood loss anemia secondary to alcoholic gastritis along with Brilinta and aspirin use. Consult with GI. Repeat hemoglobin in the morning, Protonix twice daily. 4. Elevated liver function tests consistent with alcoholic liver disease with presentation of alcohol intoxication. Patient counseled regarding alcohol cessation. CIWA protocol. 5. Recent CVA and left internal carotid artery stenting for critical stenosis in July 2019. Neurology consult. Continue Brilinta, aspirin and statin. 6. Hypertension. Continue amlodipine 5 mg daily. 7. Possible history of coronary artery disease. Continue aspirin, Imdur 30 mg daily. 8. Gastroesophageal reflux disease. Continue Protonix. 9. History of tobacco use and dependence, alcohol abuse, patient counseled rega rding cessation. Patient will be admitted to the hospital for a minimum of 1 night stay. Impression and plan of care have been directed as dictated by the signing physician. Gladis Vieyra nurse practitioner acting as scribe for signing physician.
--- NOTE | 2019-09-11 15:19 | CONS ---
CONSULTATION CHIEF COMPLAINT: Chest pain. This is a 58-year-old lady with history of ETOH abuse, hypertension, dyslipidemia, asthma, CVA, seizure disorder, who presents to hospital complaining of chest pain. She describes it as a precordial chest pressure mild to moderate intensity, unrelated to exertion and this was with diaphoresis. She, however, had an alcohol level of 240 on her initial presentation. She is admitted to hospital and last night she had an episode of chest pressure that was moderate to severe intensity at rest and was associated with diaphoresis. The patient's EKG shows sinus rhythm with ST-T wave changes suggestive of ischemia, but her EKGs have been abnormal even in the past. The patient was admitted with chest pain to [facility] last year, had a stress test that was abnormal. At various times, we contemplated cardiac catheterization on her and we could not. She had an echo in the past that showed normal LV systolic function. The patient has had a CVA and has left carotid stenosis and underwent left carotid stenting at [facility]. At the time of my evaluation this morning, she is comfortable at rest and denies any chest pain. PAST MEDICAL HISTORY: Significant for dyslipidemia, carotid stenting, hypertension. CURRENT MEDICATIONS: Include Imdur 30 mg daily, midodrine, Protonix, Brilinta, Norvasc, Celebrex, aspirin and Lipitor. ALLERGIES: THE PATIENT IS ALLERGIC TO MORPHINE AND FLU VACCINE. SOCIAL HISTORY: Significant for smoking and ETOH abuse. REVIEW OF SYSTEMS: HEENT is unremarkable. Cardiac as described above. Respiratory as described above. GI negative. Genitourinary negative. Allergy/Immunology: Negative. Skin negative. Musculoskeletal negative. Endocrine negative. Constitutional negative. Oncological negative. TREATMENT TECHNICIAN significant for ETOH abuse and intoxication. EXAM: Heart rate is 90 beats per minute. Blood pressure 131/77, respiratory, O2 sat is 99% on 2 L. There is no jugular venous distention. Carotid upstroke is normal. There is no bruit. Chest exam reveals good air entry bilaterally. Heart exam reveals first and second heart sounds. An S4 is heard. Abdomen is soft. Exam of extremities did not reveal any edema. Peripheral pulses are felt. TREATMENT TECHNICIAN exam did not reveal focal neurological deficits. LABS: Show that 3 sets of troponins are negative. Potassium is 3.4, creatinine is 0.6. Alcohol level is 236. Hemoglobin is low at 7.9. ASSESSMENT: 1. Precordial chest pain. 2. ETOH intoxication. 3. History of cerebrovascular accident status post left carotid endarterectomy. 4. Severe anemia. 5. ETOH intoxication. PLAN: The patient will need cardiac catheterization, but I will wait until she is more stable. Her hemoglobin is low and we do not know the exact etiology for this. It is unclear if she had a seizure last night or not. I will obtain a 2D echo to evaluate her LV function and obtain her records from the outpatient setting. MMKEREN / IJN: [id number] /
[2019-09-11 16:41] LABS: Glucose,Whole Blood 123 mg/dL (75-99)
[2019-09-11] MEDS ORDERED: Potassium Replacement Protocol 1 EACH MISC MISCELLANE PRN (20:44)
[2019-09-11 20:53] LABS: Glucose,Whole Blood 124 mg/dL (75-99)
[2019-09-11] MEDS: ATORVASTATIN 80 MG TAB PO SCH (21:04)
[2019-09-11 21:12] LABS: Hemoglobin A1C 5.4 % (4.0-6.0)
[2019-09-11] MEDS: NICOTINE 14MG/24HR PATCH TRANSDERM SCH (21:23)
[2019-09-11] MEDS: POTASSIUM CHLORIDE ER 20 MEQ TAB.ER PO SCH ×2 (21:23→22:43)
--- NOTE | 2019-09-11 22:40 | CONS ---
CONSULTATION DATE OF SERVICE: September 11, 2019. REQUESTING PHYSICIAN: Dr. Davide العلي. REASON FOR CONSULTATION: Anemia and elevated LFTs. HISTORY OF PRESENT ILLNESS: The patient is a 59-year-old pleasant white female admitted to hospital with chest pain for the last 2 days duration. She has history of heavy alcohol abuse, hypertension, hyperlipidemia, history of CVA 2 months ago, status post left carotid endarterectomy and seizure disorder, admitted to hospital with chest pain with moderate intensity. She was noted to have an alcohol level of at the time of admission the hospital. She was evaluated by Cardiology. She had an EKG done and showed some ST/T-wave changes. In the meantime, during the hospitalization, she was noted to have elevated serum transaminases and anemia. Hence we were consulted in regards to this issue. The patient states that she has heavy alcohol abuse for the last 30 years duration and has been drinking heavily for the last few months. She was noted to have ALT and AST in the range of 240 and 71 respectively with normal appearing bilirubin and alkaline phosphatase. She was also noted to have anemia with a hemoglobin of 7.9 g/dL. Last hemoglobin was 9.5 g/dL. She denies any abdominal pain. She reports no nausea or vomiting. No rectal bleeding or melena. The patient states that she did have an EGD and colonoscopy done by Dr. Lynch about a year ago and was noted to have gastritis and diverticulosis. In the past, was diagnosed with irritable bowel syndrome. She denies any jaundice or hepatitis in the past. PAST MEDICAL HISTORY: Significant for hypertension, hyperlipidemia, history of CVA in the past, seizure disorder, coronary artery disease, status post WA in the past, asthma, and CVA. PAST SURGICAL HISTORY: Cholecystectomy, left carotid endarterectomy. MEDICATIONS: At home include aspirin, Lipitor, Brilinta, Norvasc and Protonix, ProAmatine, Imdur. ALLERGIES: TO INFLUENZA VACCINE AND MORPHINE. SOCIAL HISTORY: Chronic smoker. Alcohol use as mentioned above. FAMILY HISTORY: Mother had congestive heart failure, coronary artery disease. Father had COPD. REVIEW OF SYSTEMS: CARDIOPULMONARY: She does complain of chest pain and some shortness of breath. no dysuria or hematuria. MUSCULOSKELETAL unremarkable. SKIN unremarkable. Endocrine unremarkable. Psychiatric unremarkable. Neurology unremarkable. ENT/vision unremarkable. CONSTITUTIONAL: No recent weight loss. No fever, chills, night sweats. GI as mentioned above. Neurology as mentioned above. PHYSICAL EXAMINATION: She appears comfortable, no apparent distress. Vital signs stable. The blood pressure is 139/86, pulse rate 101, temperature 96.4. HEENT examination unremarkable. Conjunctivae pink. Sclerae anicteric. Oral cavity no lesions. NECK: No JVD or lymph node enlargement. CHEST: Clear to auscultation. HEART: Regular rate and rhythm. ABDOMEN: Soft., bowel sounds are positive. No organomegaly. EXTREMITIES no pedal edema. SKIN no rashes. NEUROLOGIC: Alert and oriented x3. No focal deficits. LABS: WBC 6.4, hemoglobin 7.9, MCV 87, platelets normal. INR 0.9. AST, ALT, T-bilirubin and alkaline phosphatase showed 142 and 78 respectively. Alkaline phosphatase 163 and T- bilirubin 0.3. LDL is 145. Serum alcohol level 236. IMPRESSION: 1. Elevated LFTs with AST more than ALT, all consistent with alcoholic liver disease. The patient states that she was seen by Dr. Crowe in the office and had workup for chronic liver disease, which is not available at the time of this dictation. 2. Anemia, normocytic anemia with clinically no evidence of active bleeding. The etiology of anemia remains unclear. We will investigate further. 3. Chest pain for which cardiology is following the patient closely. 4. History of hypertension and hyperlipidemia. 5. History of coronary artery disease in the past. RECOMMENDATIONS: 1. Iron studies, serum vitamin B12 and folate levels. 2. Retic count. 3. Repeat CBC in the morning. 4. We will review office records to see if she had workup for chronic liver disease. 5. We will follow up closely during her the hospital stay. Thank you for this consultation. MMODL / IJN: [id number] /
[2019-09-12 06:32] LABS: Glucose,Whole Blood 119 mg/dL (75-99)
[2019-09-12 08:46] LABS: ALT 61 U/L (9-52); AST 77 U/L (14-36); African American GFR (CKD) >90 (>60 ml/min/1.73 sqM); Albumin 3.7 g/dL (3.5-5.0); Alkaline Phosphatase 167 U/L (38-126); Anion Gap 9 mmol/L; Blood Urea Nitrogen 9 mg/dL (7-17); Calcium 9.4 mg/dL (8.4-10.2); Carbon Dioxide 28 mmol/L (22-30); Chloride 104 mmol/L (98-107); Glucose 113 mg/dL (74-99); Potassium 3.8 mmol/L (3.5-5.1); Sodium 141 mmol/L (137-145); Total Bilirubin 0.6 mg/dL (0.2-1.3); Total Protein 6.9 g/dL (6.3-8.2)
[2019-09-12 09:05] LABS: Anisocytosis Slight; Basophils # (A) 0.1 k/uL (0-0.2); Basophils % (A) 2 %; Eosinophils # (A) 0.2 k/uL (0-0.7); Eosinophils % (A) 3 %; HCT 28.4 % (34.0-46.0); HGB 8.7 gm/dL (11.4-16.0); Hypochromasia Marked; Lymphocytes % (A) 19 %; MCH 27.1 pg (25.0-35.0); MCHC 30.4 g/dL (31.0-37.0); Mean Platelet Volume 6.1; Monocytes # (A) 0.3 k/uL (0-1.0); Monocytes % (A) 6 %; Neutrophils # (A) 3.5 k/uL (1.3-7.7); Neutrophils % (A) 66 %; Platelet Count 178 k/uL (150-450); Poikilocytosis Slight; RBC 3.19 m/uL (3.80-5.40); RDW 19.8 % (11.5-15.5); WBC 5.2 k/uL (3.8-10.6)
[2019-09-12] MEDS: TICAGRELOR 90 MG TAB PO SCH ×2 (09:55→21:07)
[2019-09-12] MEDS: NICOTINE 14MG/24HR PATCH TRANSDERM SCH (09:55)
[2019-09-12] MEDS: amLODIPine 5 MG TAB PO SCH (09:55)
[2019-09-12] MEDS: ASPIRIN 81 MG PO SCH (09:55)
[2019-09-12] MEDS: PANTOPRAZOLE 40 MG TABLET PO SCH ×2 (09:55→21:07)
[2019-09-12] MEDS ORDERED: ATORVASTATIN 80 MG TAB PO STA (11:39)
[2019-09-12] MEDS ORDERED: ALPRAZolam 0.5 MG TAB PO PRN (11:39)
[2019-09-12] MEDS ORDERED: NITROGLYCERIN SL TABS 0.4 MG TAB SUBLINGUAL PRN (11:39)
[2019-09-12] MEDS ORDERED: ALPRAZolam 0.25 MG TAB PO PRN (11:39)
[2019-09-12] MEDS ORDERED: SODIUM CHLORIDE 0.9% 1,000 ML in EMPTY BAG 1 BAG IV ONE (11:39)
[2019-09-12] MEDS ORDERED: ASPIRIN 325 MG TAB PO STA (11:39)
--- NOTE | 2019-09-12 11:50 | P.PN ---
Subjective Progress Note Date: 09/12/19 This is a 51-year-old female with history of EtOH abuse, hypertension, hyperlipidemia, CVA, asthma, seizure disorder, who presents to the hospital with symptoms of chest discomfort, she was seen in consultation yesterday by Dr. Vidal. On presentation here she had an alcohol level of 240, her EKG showed normal sinus rhythm with ST-T wave changes. Patient was admitted to [facility] approximately a year ago, she underwent a stress test at that time which was reported to be abnormal and cardiac catheterization was advised at that time. Patient also has history of left carotid stenosis for which she underwent left carotid stenting at [facility]. Patient was seen and exami rainer this morning, she denies having any further episodes of chest discomfort. Echocardiogram with Doppler study was performed which revealed an ejection fraction of 60-65%. Dr. Mauro Howard was consulted on the patient because of a low hemoglobin as well as elevated liver enzymes. They have recommended ordering iron studies, vitamin B12, reticular count, we will also review office records for prior workup on her chronic liver disease. White blood cell count today is 5.2, hemoglobin 8.7, platelet count 178. Sodium 141, potassium 3.8, BUN 9 and creatinine 0.6. AST 77, ALT 61, alk phos 167. Objective - Vital Signs Vital signs: Vital Signs Temp 97.9 F 09/12/19 08:00 Pulse 92 09/12/19 08:00 Resp 16 09/12/19 08:00 BP 134/93 09/12/19 08:00 Pulse Ox 100 09/12/19 08:00 Intake & Output 09/11/19 09/12/19 09/12/19 18:59 06:59 18:59 Intake Total 120 480 Output Total 720 Balance 120 -240 Weight 69.7 kg Intake: Oral 120 480 Output: Urine 720 Other: Voiding Method Toilet # Voids 2 4 - Exam PHYSICAL EXAMINATION: GENERAL: 59-year-old female in no acute distress at the time of my examination HEENT: Head is atraumatic, normocephalic. Pupils equal, round. Sclera anicteric. Conjunctiva are clear. Mucous membranes of the mouth are moist. Neck is supple. There is no elevated jugular venous pressure. No carotid bruit is heard. HEART EXAMINATION: Heart S1, S2 normal. No murmur or gallop heard. CHEST EXAMINATION: Lungs are clear to auscultation and precussion. No chest wall tenderness is noted on palpation or with deep breathing. ABDOMEN: Soft, nontender. Bowel sounds are heard. No organomegaly noted. EXTREMITIES: 2+ peripheral pulses with no evidence of peripheral edema and no calf tenderness noted. NEUROLOGIC patient is awake, alert and oriented 3 . . - Labs CBC & Chem 7: 09/12/19 07:09 09/12/19 07:09 Labs: Abnormal Lab Results - Last 24 Hours (Table) 09/11/19 09/11/19 09/12/19 Range/Units 16:40 20:52 06:31 RBC (3.80-5.40) m/uL Hgb (11.4-16.0) gm/dL Hct (34.0-46.0) % MCHC (31.0-37.0) g/dL RDW (11.5-15.5) % Retic Count (0.5-2.0) % Glucose (74-99) mg/dL POC Glucose (mg/dL) 123 H 124 H 119 H (75-99) mg/dL AST (14-36) U/L ALT (9-52) U/L Alkaline Phosphatase (38-126) U/L 09/12/19 09/12/19 09/12/19 Range/Units 07:09 07:09 07:09 RBC 3.19 L (3.80-5.40) m/uL Hgb 8.7 L (11.4-16.0) gm/dL Hct 28.4 L (34.0-46.0) % MCHC 30.4 L (31.0-37.0) g/dL RDW 19.8 H (11.5-15.5) % Retic Count 3.0 H (0.5-2.0) % Glucose 113 H (74-99) mg/dL POC Glucose (mg/dL) (75-99) mg/dL AST 77 H (14-36) U/L ALT 61 H (9-52) U/L Alkaline Phosphatase 167 H (38-126) U/L Assessment and Plan Plan: Assessment and Plan: 1. Left-sided chest pain with reported history of positive stress test a pproximately a year ago at [facility]. 2. Staring episode, possible seizure activity. Consult with neurology, EEG. 3. Anemia, probable acute on chronic blood loss anemia secondary to alcoholic gastritis along with Brilinta and aspirin use. 4. Elevated liver function tests consistent with alcoholic liver disease with presentation of alcohol intoxication. 5. Recent CVA and left internal carotid artery stenting for critical stenosis in July 2019. 6. Hypertension. 7. Hyperlipidemia 8. Gastroesophageal reflux disease. 9. History of tobacco use and dependence as well as alcohol abuse Plan Echocardiogram with Doppler study was performed which revealed an ejection fraction of 60-65%. The patient has been advised to undergo cardiac catheterization, the risks and benefits were explained to the patient in detail. This will be performed on Sunday by Dr. Howard. DNP note has been reviewed, I agree with a documented findings and plan of care. Patient was seen and examined.
[2019-09-12 12:30] LABS: Glucose,Whole Blood 117 mg/dL (75-99)
--- NOTE | 2019-09-12 12:32 | P.PN ---
Progress Note - Text Progress Note Date: 09/12/19 SUBJECTIVE/INTERVAL EVENTS: No acute overnight events. Patient with no complaints. Feels much better than she did yesterday. PHYSICAL EXAMINATION: VITAL SIGNS: T 97.9 HR 92 RR 16 BP 134/93 O2 sat 100% on RA GEN.: NAD, pleasant and cooperative HEENT: NCAT, sclera without icterus NECK: Supple SKIN AND EXTREMITIES: Warm to touch, no edema NEURO: MENTAL STATUS: Patient alert and oriented to self, place, time. Able to name the current president. Speech fluent, able to name and repeat, following all commands readily. No right and left disorientation, extinction to double simultaneous stimulation, finger agnosia, neglect. CRANIAL NERVES II THROUGH XII: II: Pupils are equal and reactive to light symmetrically. No afferent pupillary defect. Visual galvan are intact. III, IV, : No ptosis. Extraocular movements full. No nystagmus. V: Facial sensation intact from V1-3. VII. No clear facial asymmetry. VIII: Hearing intact to finger rub bilaterally. IX, X: Symmetric palate elevation. XI: Shoulder shrug intact. XII: Tongue midline without fasciculation or atrophy. MOTOR: Normal bulk/tone. No pronator drift or tremor. Strength is 5/5 in LUE/LLE. 4+/5 in RUE. 4/5 in RLE. SENSORY: Intact to light touch in all 4 extremities. REFLEXES: 2+ in b/l UE. 1+ in b/l UE. Toes are downgoing. COORDINATION: Finger to nose and heel to beal intact. No dysmetria. Rapid alternating movements with good speed and accuracy. GAIT: Narrow-based and cautious. Difficulty with walking on toes and heels. DIAGNOSTIC TESTING: LABORATORY: WBC 6.4 hemoglobin 7.9 platelet 189 INR 0.9 PTT 10.0 sodium 140 potassium 3.4 chloride 104 bicarb 29 BUN 6 creatinine 0.61 glucose 124 AST 142 ALT 78 alkphos 163 troponin <0.012 alcohol 236 IMAGING: CT head without contrast 09/10/2019: Small subacute lacunar infarct left parietal lobe unchanged. Cortical hypodensity that measures 2.5 cm left posterior parietal lobe consistent with subacute cortical infarct that is more in well-defined and recent exam. No evidence of a new infarct. Unchanged size of choroid cyst during 12 mm compared to 08/05/2019 study. ASSESSMENT: 59-year-old woman with past medical history of asthma, stroke with residual right-sided weakness, MO, seizure disorder, DDD, presented to [facility] for chest pain, consulted neurology for seizure activity. Patient with history of possible seizure episodes in the past, this would be her 3rd episode. Patient denies ever having EtOH withdrawal symptoms. In regards to her stroke, patient is s/p L carotid artery stent placement with no worsening symptoms. RECOMMENDATIONS: 1. Routine EEG obtained this morning. Will follow up final result, but patient can be discharged prior to the obtaining the result. 2. Patient most likely had full stroke work-up, stroke most likely from her carotid atherosclerosis, s/p L carotid artery stent. 3. Continue with ASA 81mg qday and Brilinta 4. Continue with Atorvastatin 80mg qhs 5. Patient needs to follow up with neurologist as outpatient with her 1-2 weeks of discharge 6. Neurology will sign off at this time. .Neurology is not available over the weekend in-house. However, feel free to [employer] message me over the weekend if you have any questions or concerns
[2019-09-12] MEDS: Acetaminophen-Codeine 300-30mg TAB PO PRN ×2 (13:03→21:07)
--- NOTE | 2019-09-12 14:39 | P.PN ---
Subjective Progress Note Date: 09/12/19 This is a 59-year-old female patient of Dr. العلي with a past medical history of coronary artery disease, hypertension, seasonal ALLERGIES, gastroesophageal reflux disease, CVA. Patient presented to [facility] emergency center on July 26 with right upper and lower extremity weakness and difficulty with speech that had been going on for [address] angiography of the head and neck showed severe, 90% stenosis at the proximal left ICA. The left bifurcation is located 3 cm below the angle of the mandible. Mild, less than 50% narrowing proximal right ICA. CT brain without contrast showed a 1 cm hyperdense collates is in the region of the [place] of [place]. Note that this has been associated positional life-threatening hydrocephalus. No hydrocephalus at this time. Moderate patchy changes of chronic small vessel ischemic disease particularly in the left cerebral hemisphere. More focal area of cortical/subcortical hypodensity anterior left parietal lobe could represent an area of subacute infarct given weakness for 2 weeks. Case was discussed with Dr. Queen and patient was transferred to [facility] for carotid endarterectomy. Patient was to be on dual antiplatelet therapy with aspirin and Brilinta and also atorvastin. Patient was seen at [facility] as an admission on August 06 at which time she presented with right lower extremity pain and weakness secondary to lumbar radiculopathy and was discharged home. Patient now gives history of having a stress test done a couple years ago as Dr. Guzmán was planning on doing a carotid surgery at that time. This apparently was a normal stress test. In August 2018 she apparently had a myocardial infarction which she discovered in November 2018 and underwent a stress test at that time at [facility] which was apparently reported as abnormal and patient was to undergo heart catheterization but due to other issues this is been delayed. This is reported per patient. She complains of chest pain that started yesterday in the center of her chest and on the left side and also away to the left lateral area as well at times. She states she also had some shortness of breath. She is not sure how long this happened or if she is had other episodes. Patient is very vague. Patient also had an episode where she was staring off and then had projectile vomiting following that but did not seem confused afterwards. This was witnessed by the nurse. Patient is also noted to have a drop in her hemoglobin which was normal and July of this year at 12.3 now down to 7.9. Patient has not noticed any bloody or tarry stools. Regarding alcohol use, patient states that she daily drinks 2 glasses of wine in a couple sips of whiskey. She is also an active smoker and active marijuana use. She states that she did have an appointment with Dr. abdirahman gonzalez on outpatient labwork done at [facility] but did not go back for follow-up. Patient came into [facility] emergency center for evaluation. She was found initially to have a hemoglobin 9.6 and repeat 7.9, platelet count 189, potassium 3.4 and has been replaced. Creatinine 0.61. Total bilirubin 0.3, AST 142, ALT 78, alkaline phosphatase 163. Triglycerides 162, cholesterol 222, LDL 145, HDL 45, TSH 3.580. Urinalysis was clear. Serum alcohol level 236. She has been afebrile, initial heart rate was elevated as well as low blood pressure. Currently she is running a heart rate of 100, blood pressures 135/95 and pulse ox 99% on room air. Chest x-rays showed mild subsegmental atelectasis. CAT scan of the brain showed small subacute lacunar infarct left anterior parietal lobe unchanged. Cortical hypodensity that measures 2.5 cm left posterior parietal lobe consistent with subacute cortical infarct that is more well defined than recent exam. No evidence of new infarct. Patient admitted to the cardiac stepdown unit and consult requested with cardiology due to chest pain and reported by patient abnormal stress test done at [facility], neurology for possible seizure activity and a GI for anemia. 09/12: Echocardiogram reveals EF of 60-65% with moderate concentric left ventricular hypertrophy. Patient has been seen by Dr. Mauro Howard. Patient has had an EGD and colonoscopy done by Dr. Lynch about one year ago that showed gastritis and diverticulosis. She will review office records. Iron studies, vitamin B12, folate, reticulocyte levels ordered. Patient has been seen by cardiology with recommendations for heart catheterization on Sunday. We'll plan to order a midline as patient has no IV access. Neuro has signed off the case. Patient has been afebrile, heart rate 92, blood pressure 134/93, pulse ox 100% on room air. Hemoglobin is 8.7. Blood sugars 117 - 124. AST 77, ALT 61, alkaline phosphatase 167. EEG has been completed and report is pending. Objective - Vital Signs Vital signs: Vital Signs Temp 97.9 F 09/12/19 08:00 Pulse 92 09/12/19 08:00 Resp 16 09/12/19 08:00 BP 134/93 09/12/19 08:00 Pulse Ox 100 09/12/19 08:00 Intake & Output 09/11/19 09/12/19 09/12/19 18:59 06:59 18:59 Intake Total 120 480 Output Total 720 Balance 120 -240 Weight 69.7 kg Intake: Oral 120 480 Output: Urine 720 Other: Voiding Method Toilet # Voids 2 4 - Exam Review of Systems Constitutional: Reports fatigue, Reports poor appetite, Reports weakness, Denies chills, Denies fever Eyes: denies blurred vision, denies pain Cardiovascular: Denies chest pain, Denies edema, Denies lightheadedness, Denies palpitations, Denies shortness of breath, Denies syncope Respiratory: Denies cough, Denies cough with sputum, Denies dyspnea, Denies hemoptysis, Denies home oxygen, Denies respiratory infections, Denies wheezing Gastrointestinal: Denies abdominal pain, Denies coffee ground emesis, Denies diarrhea, Denies hematemesis, Denies hematochezia, Denies loss of appetite, Denies melena, Denies nausea, Denies vomiting Genitourinary: Denies dysuria, Denies hematuria, Denies urgency Musculoskeletal: Denies muscle weakness, Denies myalgias Integumentary: Denies pruritus, Denies rash, Denies wounds Neurological: Reports change in mentation, Denies numbness, Denies weakness Psychiatric: Denies anxiety, Denies depression Gen: This is an obese 59-year-old female. She is in a sitting in chair and appears to be comfortable and in no acute distress. HEENT: Head is atraumatic, normocephalic. Pupils equal, round. Sclerae is anicteric. NECK: Supple. No JVD. No lymphadenopathy. No thyromegaly. LUNGS: Clear to auscultation. No wheezes or rhonchi. No intercostal retractions. HEART: Regular rate and rhythm. No murmur. ABDOMEN: Soft. Bowel sounds are present. No masses. No tenderness. EXTREMITIES: No pedal edema. No calf tenderness. Significant edema to the left hand secondary to infiltration from IV fluids. NEUROLOGICAL: Patient is awake, alert and oriented x3. Cranial nerves 2 through 12 are grossly intact. - Labs CBC & Chem 7: 09/12/19 07:09 09/12/19 07:09 Labs: Abnormal Lab Results - Last 24 Hours (Table) 09/11/19 09/11/19 09/12/19 Range/Units 16:40 20:52 06:31 RBC (3.80-5.40) m/uL Hgb (11.4-16.0) gm/dL Hct (34.0-46.0) % MCHC (31.0-37.0) g/dL RDW (11.5-15.5) % Retic Count (0.5-2.0) % Glucose (74-99) mg/dL POC Glucose (mg/dL) 123 H 124 H 119 H (75-99) mg/dL AST (14-36) U/L ALT (9-52) U/L Alkaline Phosphatase (38-126) U/L 09/12/19 09/12/19 09/12/19 Range/Units 07:09 07:09 07:09 RBC 3.19 L (3.80-5.40) m/uL Hgb 8.7 L (11.4-16.0) gm/dL Hct 28.4 L (34.0-46.0) % MCHC 30.4 L (31.0-37.0) g/dL RDW 19.8 H (11.5-15.5) % Retic Count 3.0 H (0.5-2.0) % Glucose 113 H (74-99) mg/dL POC Glucose (mg/dL) (75-99) mg/dL AST 77 H (14-36) U/L ALT 61 H (9-52) U/L Alkaline Phosphatase 167 H (38-126) U/L 09/12/19 Range/Units 12:11 RBC (3.80-5.40) m/uL Hgb (11.4-16.0) gm/dL Hct (34.0-46.0) % MCHC (31.0-37.0) g/dL RDW (11.5-15.5) % Retic Count (0.5-2.0) % Glucose (74-99) mg/dL POC Glucose (mg/dL) 117 H (75-99) mg/dL AST (14-36) U/L ALT (9-52) U/L Alkaline Phosphatase (38-126) U/L Assessment and Plan Plan: 1. Sternal, left-sided chest pain with reported history of positive stress test. Cardiology consult. Initial troponin negative. Patient is scheduled for heart catheterization on Sunday. 2. Staring episode possible seizure activity. Consult with neurology, EEG. Neurology has signed off the case. EEG report is pending. 3. Anemia, probable acute on chronic blood loss anemia secondary to alcoholic gastritis along with Brilinta and aspirin use. Consult with GI appreciated. Protonix twice daily. 4. Elevated liver function tests consistent with alcoholic liver disease with presentation of alcohol intoxication. Patient counseled regarding alcohol cessation. [facility] protocol. 5. Recent CVA and left internal carotid artery stenting for critical stenosis in July 2019. Neurology consult. Continue Brilinta, aspirin and statin. 6. Hypertension. Continue amlodipine 5 mg daily. 7. Possible history of coronary artery disease. Continue aspirin, Imdur 30 mg daily. 8. Gastroesophageal reflux disease. Continue Protonix. 9. History of tobacco use and dependence, alcohol abuse, patient counseled regarding cessation. Discharge plan: Return home Impression and plan of care have been directed as dictated by the signing physician. Gladis iVeyra nurse practitioner acting as scribe for signing physician.
[2019-09-12] MEDS: LIDOCAINE 5% PATCH TOPICAL SCH (16:38)
[2019-09-12 17:45] LABS: % Iron Saturation 3.87 (12.00-45.00)
[2019-09-12 17:52] LABS: Folate, Serum 2.8 ng/mL
[2019-09-12 18:03] LABS: Ferritin 14.4 ng/mL (10.0-291.0)
[2019-09-12] MEDS: ATORVASTATIN 80 MG TAB PO SCH (21:07)
[2019-09-12] MEDS: FLUTICASONE 50MCG/SPRAY NASAL 16GM EA NOSTRIL PRN (22:48)
--- NOTE | 2019-09-13 06:17 | EEG ---
ELECTROENCEPHALOGRAM REPORT PROCEDURE DATE: Is 09/12/2019. ELECTROENCEPHALOGRAM (EEG) REPORT: TECHNIQUE: A routine 18 channel EEG was performed with video using the 10/20 international electrode placement system. HISTORY: Acute chest pain, alcohol intoxication. Other medical history includes prior OH, prior stroke. CURRENT MEDICATIONS: Brilinta, Protonix, Zofran, nicotine patch, Ativan, Pepcid. STUDY DURATION: 20 minutes. FINDINGS: BACKGROUND: The background activity consisted of 8-9 hertz rhythmic waveforms symmetrically distributed to both posterior quadrants. ACTIVATION: Hyperventilation: Not performed. Photic stimulation: Symmetric driving seen. Sleep: Stages I and II sleep noted. ABNORMALITIES: None. IMPRESSION: Normal EEG. No epileptiform activity was present. No seizures were recorded. MMODL / IJN: [id number] /
[2019-09-13 06:50] LABS: ALT 45 U/L (9-52); AST 51 U/L (14-36); African American GFR (CKD) >90 (>60 ml/min/1.73 sqM); Albumin 2.9 g/dL (3.5-5.0); Alkaline Phosphatase 123 U/L (38-126); Anion Gap 6 mmol/L; Blood Urea Nitrogen 9 mg/dL (7-17); Calcium 8.4 mg/dL (8.4-10.2); Carbon Dioxide 29 mmol/L (22-30); Chloride 105 mmol/L (98-107); Glucose 94 mg/dL (74-99); Potassium 3.6 mmol/L (3.5-5.1); Sodium 140 mmol/L (137-145); Total Bilirubin 0.4 mg/dL (0.2-1.3); Total Protein 5.5 g/dL (6.3-8.2)
[2019-09-13 06:51] LABS: Anisocytosis Moderate; Basophils % (A) 1 %; Eosinophils # (A) 0.2 k/uL (0-0.7); Eosinophils % (A) 3 %; Hypochromasia Marked; Lymphocytes # (A) 1.2 k/uL (1.0-4.8); Lymphocytes % (A) 25 %; MCH 26.8 pg (25.0-35.0); MCHC 30.5 g/dL (31.0-37.0); MCV 88.1 fL (80.0-100.0); Mean Platelet Volume 6.4; Monocytes # (A) 0.2 k/uL (0-1.0); Monocytes % (A) 4 %; Neutrophils # (A) 3.1 k/uL (1.3-7.7); Neutrophils % (A) 63 %; Platelet Count 158 k/uL (150-450); Poikilocytosis Slight; RBC 2.62 m/uL (3.80-5.40); WBC 4.8 k/uL (3.8-10.6)
[2019-09-13] MEDS: amLODIPine 5 MG TAB PO SCH (09:14)
[2019-09-13] MEDS: TICAGRELOR 90 MG TAB PO SCH ×2 (09:15→20:46)
[2019-09-13] MEDS: ASPIRIN 81 MG PO SCH (09:15)
[2019-09-13] MEDS: LIDOCAINE 5% PATCH TOPICAL SCH (09:15)
[2019-09-13] MEDS: NICOTINE 14MG/24HR PATCH TRANSDERM SCH (09:15)
[2019-09-13] MEDS: PANTOPRAZOLE 40 MG TABLET PO SCH ×2 (09:15→20:46)
[2019-09-13] MEDS: Acetaminophen-Codeine 300-30mg TAB PO PRN ×2 (13:36→20:46)
--- NOTE | 2019-09-13 13:54 | P.PN ---
Subjective Progress Note Date: 09/13/19 This is a 51-year-old female with history of EtOH abuse, hypertension, hyperlipidemia, CVA, asthma, seizure disorder, who presents to the hospital with symptoms of chest discomfort, she was seen in consultation yesterday by Dr. Howard. On presentation here she had an alcohol level of 240, her EKG showed normal sinus rhythm with ST-T wave changes. Patient was admitted to [facility] approximately a year ago, she underwent a stress test at that time which was reported to be abnormal and cardiac catheterization was advised at that time. Patient also has history of left carotid stenosis for which she underwent left carotid stenting at [facility]. Patient was seen and exa mined this morning, she denies having any further episodes of chest discomfort. Echocardiogram with Doppler study was performed which revealed an ejection fraction of 60-65%. Dr. Mauro Howard was consulted on the patient because of a low hemoglobin as well as elevated liver enzymes. They have recommended ordering iron studies, vitamin B12, reticular count, we will also review office records for prior workup on her chronic liver disease. White blood cell count today is 5.2, hemoglobin 8.7, platelet count 178. Sodium 141, potassium 3.8, BUN 9 and creatinine 0.6. AST 77, ALT 61, alk phos 167. 11/: Patient denies any chest pain, shortness of breath, palpitations, lightheadedness or dizziness. She states that she gets short of breath with activity. She denies any much breakfast because she does not like the food and she complains of decreased appetite. She has been afebrile, heart rate 87, blood pressure 165/89, pulse ox 91-97% on room air. Hemoglobin this morning is at 7.0. Patient will be started on metoprolol 25 mg twice daily. Objective - Vital Signs Vital signs: Vital Signs Temp 98.0 F 09/13/19 08:00 Pulse 87 09/13/19 08:00 Resp 16 09/13/19 08:00 BP 165/89 09/13/19 08:00 Pulse Ox 91 L 09/13/19 08:00 Intake & Output 09/12/19 09/13/19 09/13/19 18:59 06:59 18:59 Intake Total 600 Output Total 850 Balance 600 -850 Weight 70.7 kg Intake: Oral 600 Output: Urine 850 Other: Voiding Method Toilet - Exam PHYSICAL EXAMINATION: GENERAL: 59-year-old female in no acute distress at the time of my examination HEENT: Head is atraumatic, normocephalic. Pupils equal, round. Sclera anicteric. Conjunctiva are clear. Mucous membranes of the mouth are moist. Neck is supple. There is no elevated jugular venous pressure. No carotid bruit is heard. HEART EXAMINATION: Heart S1, S2 normal. No murmur or gallop heard. CHEST EXAMINATION: Lungs are clear to auscultation and precussion. No chest wall tenderness is noted on palpation or with deep breathing. ABDOMEN: Soft, nontender. Bowel sounds are heard. No organomegaly noted. EXTREMITIES: 2+ peripheral pulses with no evidence of peripheral edema and no calf tenderness noted. NEUROLOGIC patient is awake, alert and oriented 3 . - Labs CBC & Chem 7: 09/13/19 05:51 09/13/19 05:51 Labs: Abnormal Lab Results - Last 24 Hours (Table) 09/12/19 09/12/19 09/13/19 Range/Units 07:09 12:11 05:51 RBC 2.62 L (3.80-5.40) m/uL Hgb 7.0 L D (11.4-16.0) gm/dL Hct 23.0 L (34.0-46.0) % MCHC 30.5 L (31.0-37.0) g/dL RDW 20.0 H (11.5-15.5) % POC Glucose (mg/dL) 117 H (75-99) mg/dL Iron 17 L (50-170) ug/dL % Saturation 3.87 L (12.00-45.00) AST (14-36) U/L Total Protein (6.3-8.2) g/dL Albumin (3.5-5.0) g/dL 09/13/19 Range/Units 05:51 RBC (3.80-5.40) m/uL Hgb (11.4-16.0) gm/dL Hct (34.0-46.0) % MCHC (31.0-37.0) g/dL RDW (11.5-15.5) % POC Glucose (mg/dL) (75-99) mg/dL Iron (50-170) ug/dL % Saturation (12.00-45.00) AST 51 H (14-36) U/L Total Protein 5.5 L (6.3-8.2) g/dL Albumin 2.9 L (3.5-5.0) g/dL Assessment and Plan Plan: 1. Left-sided chest pain with reported history of positive stress test approximately a year ago at [facility]. 2. Staring episode, possible seizure activity. Consult with neurology, EEG. 3. Anemia, probable acute on chronic blood loss anemia secondary to alcoholic gastritis along with Brilinta and aspirin use. 4. Elevated liver function tests consistent with alcoholic liver disease with presentation of alcohol intoxication. 5. Recent CVA and left internal carotid artery stenting for critical stenosis in July 2019. 6. Hypertension. 7. Hyperlipidemia 8. Gastroesophageal reflux disease. 9. History of tobacco use and dependence as well as alcohol abuse Plan Echocardiogram with Doppler study was performed which revealed an ejection fraction of 60-65%. The patient has been advised to undergo cardiac catheterization, the risks and benefits were explained to the patient in detail. This will be performed on Sunday by Dr. Howard. No new concerns today. The patient will be started on metoprolol 25 mg twice daily. Continue aspirin 81 mg daily, atorvastatin 80 mg at bedtime, Brilinta 90 mg twice daily. There is practitioner note has been reviewed, I agree with the documented findings and plan of care. Patient was seen and examined..
--- NOTE | 2019-09-13 14:13 | P.PN ---
Subjective Progress Note Date: 09/13/19 This is a 59-year-old female patient of Dr. العلي with a past medical history of coronary artery disease, hypertension, seasonal ALLERGIES, gastroesophageal reflux disease, CVA. Patient presented to [facility] emergency center on July 26 with right upper and lower extremity weakness and difficulty with speech that had been going on for [address] angiography of the head and neck showed severe, 90% stenosis at the proximal left ICA. The left bifurcation is located 3 cm below the angle of the mandible. Mild, less than 50% narrowing proximal right ICA. CT brain without contrast showed a 1 cm hyperdense collates is in the region of the [place]. Note that this has been associated positional life-threatening hydrocephalus. No hydrocephalus at this time. Moderate patchy changes of chronic small vessel ischemic disease particularly in the left cerebral hemisphere. More focal area of cortical/subcortical hypodensity anterior left parietal lobe could represent an area of subacute infarct given weakness for 2 weeks. Case was discussed with Dr. Queen and patient was transferred to [facility] for carotid endarterectomy. Patient was to be on dual antiplatelet therapy with aspirin and Brilinta and also atorvastin. Patient was seen at [facility] as an admission on August 06 at which time she presented with right lower extremity pain and weakness secondary to lumbar radiculopathy and was discharged home. Patient now gives history of having a stress test done a couple years ago as Dr. Guzmán was planning on doing a carotid surgery at that time. This apparently was a normal stress test. In August 2018 she apparently had a myocardial infarction which she discovered in November 2018 and underwent a stress test at that time at [facility] which was apparently reported as abnormal and patient was to undergo heart catheterization but due to other issues this is been delayed. This is reported per patient. She complains of chest pain that started yesterday in the center of her chest and on the left side and also away to the left lateral area as well at times. She states she also had some shortness of breath. She is not sure how long this happened or if she is had other episodes. Patient is very vague. Patient also had an episode where she was staring off and then had projectile vomiting following that but did not seem confused afterwards. This was witnessed by the nurse. Patient is also noted to have a drop in her hemoglobin which was normal and July of this year at 12.3 now down to 7.9. Patient has not noticed any bloody or tarry stools. Regarding alcohol use, patient states that she daily drinks 2 glasses of wine in a couple sips of whiskey. She is also an active smoker and active marijuana use. She states that she did have an appointment with Dr. abdirahman gonzalez on outpatient labwork done at [facility] but did not go back for follow-up. Patient came into [facility] emergency center for evaluation. She was found initially to have a hemoglobin 9.6 and repeat 7.9, platelet count 189, potassium 3.4 and has been replaced. Creatinine 0.61. Total bilirubin 0.3, AST 142, ALT 78, alkaline phosphatase 163. Triglycerides 162, cholesterol 222, LDL 145, HDL 45, TSH 3.580. Urinalysis was clear. Serum alcohol level 236. She has been afebrile, initial heart rate was elevated as well as low blood pressure. Currently she is running a heart rate of 100, blood pressures 135/95 and pulse ox 99% on room air. Chest x-rays showed mild subsegmental a telectasis. CAT scan of the brain showed small subacute lacunar infarct left anterior parietal lobe unchanged. Cortical hypodensity that measures 2.5 cm left posterior parietal lobe consistent with subacute cortical infarct that is more well defined than recent exam. No evidence of new infarct. Patient admitted to the cardiac stepdown unit and consult requested with cardiology due to chest pain and reported by patient abnormal stress test done at [facility], neurology for possible seizure activity and a GI for anemia. 09/12: Echocardiogram reveals EF of 60-65% with moderate concentric left ventricular hypertrophy. Patient has been seen by Dr. Mauro Howard. Patient has had an EGD and colonoscopy done by Dr. Lynch about one year ago that showed gastritis and diverticulosis. She will review office records. Iron studies, vitamin B12, folate, reticulocyte levels ordered. Patient has been seen by cardiology with recommendations for heart catheterization on Sunday. We'll plan to order a midline as patient has no IV access. Neuro has signed off the case. Patient has been afebrile, heart rate 92, blood pressure 134/93, pulse ox 100% on room air. Hemoglobin is 8.7. Blood sugars 117 - 124. AST 77, ALT 61, alkaline phosphatase 167. EEG has been completed and report is pending. 09/13: Impression is resting in bed in no acute distress. Patient's hemoglobin has dropped to 7. Patient denies any bleeding, black tarry stools. Patient states that she is very tired and requesting to go back to sleep. She is scheduled to have a heart cath on Sunday. Patient remained afebrile, heart rate 84, blood pressure 150/84, pulse oxing 100% on room air. Respirations are 16 and unlabored. EEG shows: Normal EEG, no seizures or ordered no epileptiform activity was present. Hemoglobin 7, AST 51, ALT 45, total protein 5.5, of human 2.9 Review of Systems Constitutional: Reports fatigue, Reports poor appetite, Reports weakness, Denies chills, Denies fever Eyes: denies blurred vision, denies pain Cardiovascular: Denies chest pain, Denies edema, Denies lightheadedness, Denies palpitations, Denies shortness of breath, Denies syncope Respiratory: Denies cough, Denies cough with sputum, Denies dyspnea, Denies hemoptysis, Denies home oxygen, Denies respiratory infections, Denies wheezing Gastrointestinal: Denies abdominal pain, Denies coffee ground emesis, Denies diarrhea, Denies hematemesis, Denies hematochezia, Denies loss of appetite, Denies melena, Denies nausea, Denies vomiting Genitourinary: Denies dysuria, Denies hematuria, Denies urgency Musculoskeletal: Denies muscle weakness, Denies myalgias Integumentary: Denies pruritus, Denies rash, Denies wounds Neurological: Reports change in mentation, Denies numbness, Denies weakness Psychiatric: Denies anxiety, Denies depression Objective - Vital Signs Vital signs: Vital Signs Temp 98.0 F 09/13/19 08:00 Pulse 94 09/13/19 11:33 Resp 16 09/13/19 11:32 BP 150/84 09/13/19 11:32 Pulse Ox 100 09/13/19 11:32 Intake & Output 09/12/19 09/13/19 09/13/19 18:59 06:59 18:59 Intake Total 600 Output Total 850 Balance 600 -850 Weight 70.7 kg Intake: Oral 600 Output: Urine 850 Other: Voiding Method Toilet - Exam Gen: This is an obese 59-year-old female. She is in a sitting in chair and appears to be comfortable and in no acute distress. HEENT: Head is atraumatic, normocephalic. Pupils equal, round. Sclerae is anicteric. NECK: Supple. No JVD. No lymphadenopathy. No thyromegaly. LUNGS: Clear to auscultation. No wheezes or rhonchi. No intercostal retractions. HEART: Regular rate and rhythm. No murmur. ABDOMEN: Soft. Bowel sounds are present. No masses. No tenderness. EXTREMITIES: No pedal edema. No calf tenderness. Significant edema to the left hand secondary to infiltration from IV fluids. NEUROLOGICAL: Patient is awake, alert and oriented x3. Cranial nerves 2 through 12 are grossly intact. - Labs CBC & Chem 7: 09/13/19 05:51 09/13/19 05:51 Labs: Abnormal Lab Results - Last 24 Hours (Table) 09/12/19 09/13/19 09/13/19 Range/Units 07:09 05:51 05:51 RBC 2.62 L (3.80-5.40) m/uL Hgb 7.0 L D (11.4-16.0) gm/dL Hct 23.0 L (34.0-46.0) % MCHC 30.5 L (31.0-37.0) g/dL RDW 20.0 H (11.5-15.5) % Iron 17 L (50-170) ug/dL % Saturation 3.87 L (12.00-45.00) AST 51 H (14-36) U/L Total Protein 5.5 L (6.3-8.2) g/dL Albumin 2.9 L (3.5-5.0) g/dL Crossmatch 09/13/19 Range/Units 11:08 RBC (3.80-5.40) m/uL Hgb (11.4-16.0) gm/dL Hct (34.0-46.0) % MCHC (31.0-37.0) g/dL RDW (11.5-15.5) % Iron (50-170) ug/dL % Saturation (12.00-45.00) AST (14-36) U/L Total Protein (6.3-8.2) g/dL Albumin (3.5-5.0) g/dL Crossmatch See Detail Assessment and Plan Plan: 1. Sternal, left-sided chest pain with reported history of positive stress test. Radiology consult appreciated. Initial troponin negative. Patient is scheduled for heart catheterization on Sunday. 2. Staring episode possible seizure activity. Consult with neurology, EEG. Neurology has signed off the case. EEG report is pending. 3. Anemia, probable acute on chronic blood loss anemia secondary to alcoholic gastritis along with Brilinta and aspirin use. Hemoglobin 7.0, transfusion 1 unit of packed red blood cells. Consult with GI appreciated. Protonix twice daily. 4. Elevated liver function tests consistent with alcoholic liver disease with presentation of alcohol intoxication. Patient counseled regarding alcohol cessation. [facility] protocol. 5. Recent CVA and left internal carotid artery stenting for critical stenosis in July 2019. Neurology consult. Continue Brilinta, aspirin and statin. 6. Hypertension. Continue amlodipine 5 mg daily. 7. Possible history of coronary artery disease. Continue aspirin, Imdur 30 mg daily. 8. Gastroesophageal reflux disease. Continue Protonix. 9. History of tobacco use and dependence, alcohol abuse, patient counseled kasie hilton cessation. Discharge plan: Return home Impression and plan of care have been directed as dictated by the signing physician. Amira Andino nurse practitioner acting as scribe for signing physician.
[2019-09-13 18:38] LABS: % Iron Saturation 3.18 (12.00-45.00); Ferritin 13.4 ng/mL (10.0-291.0)
[2019-09-13] MEDS: FLUTICASONE 50MCG/SPRAY NASAL 16GM EA NOSTRIL PRN (20:45)
[2019-09-13] MEDS: ATORVASTATIN 80 MG TAB PO SCH (20:46)
[2019-09-14 07:12] LABS: African American GFR (CKD) >90 (>60 ml/min/1.73 sqM); Anion Gap 8 mmol/L; Blood Urea Nitrogen 7 mg/dL (7-17); Calcium 8.5 mg/dL (8.4-10.2); Carbon Dioxide 24 mmol/L (22-30); Chloride 107 mmol/L (98-107); Glucose 90 mg/dL (74-99); Sodium 139 mmol/L (137-145)
[2019-09-14 07:26] LABS: Anisocytosis Slight; Basophils # (A) 0.1 k/uL (0-0.2); Basophils % (A) 1 %; Eosinophils # (A) 0.2 k/uL (0-0.7); Eosinophils % (A) 3 %; HCT 30.2 % (34.0-46.0); Hypochromasia Marked; Lymphocytes # (A) 0.9 k/uL (1.0-4.8); Lymphocytes % (A) 15 %; MCHC 31.8 g/dL (31.0-37.0); Monocytes # (A) 0.2 k/uL (0-1.0); Monocytes % (A) 4 %; Neutrophils # (A) 4.6 k/uL (1.3-7.7); Neutrophils % (A) 74 %; Platelet Count 179 k/uL (150-450); Poikilocytosis Marked; RBC 3.43 m/uL (3.80-5.40); RDW 18.9 % (11.5-15.5); WBC 6.2 k/uL (3.8-10.6)
[2019-09-14 07:31] LABS: HGB 9.6 gm/dL (11.4-16.0)
[2019-09-14] MEDS: ASPIRIN 81 MG PO SCH (09:27)
[2019-09-14] MEDS: TICAGRELOR 90 MG TAB PO SCH ×2 (09:27→21:06)
[2019-09-14] MEDS: PANTOPRAZOLE 40 MG TABLET PO SCH ×2 (09:27→21:06)
[2019-09-14] MEDS: LIDOCAINE 5% PATCH TOPICAL SCH (09:27)
[2019-09-14] MEDS: amLODIPine 5 MG TAB PO SCH (09:27)
[2019-09-14] MEDS: NICOTINE 14MG/24HR PATCH TRANSDERM SCH (09:27)
[2019-09-14] MEDS: Acetaminophen-Codeine 300-30mg TAB PO PRN ×2 (09:30→17:04)
--- NOTE | 2019-09-14 11:56 | P.PN ---
Subjective Progress Note Date: 09/14/19 This is a 51-year-old female with history of EtOH abuse, hypertension, hyperlipidemia, CVA, asthma, seizure disorder, who presents to the hospital with symptoms of chest discomfort, she was seen in consultation yesterday by Dr. Howard. On presentation here she had an alcohol level of 240, her EKG showed normal sinus rhythm with ST-T wave changes. Patient was admitted to [facility] approximately a year ago, she underwent a stress test at that time which was reported to be abnormal and cardiac catheterization was advised at that time. Patient also has history of left carotid stenosis for which she underwent left carotid stenting at [facility]. Patient was seen and exa mined this morning, she denies having any further episodes of chest discomfort. Echocardiogram with Doppler study was performed which revealed an ejection fraction of 60-65%. Dr. Mauro Howard was consulted on the patient because of a low hemoglobin as well as elevated liver enzymes. They have recommended ordering iron studies, vitamin B12, reticular count, we will also review office records for prior workup on her chronic liver disease. White blood cell count today is 5.2, hemoglobin 8.7, platelet count 178. Sodium 141, potassium 3.8, BUN 9 and creatinine 0.6. AST 77, ALT 61, alk phos 167. 09/13: Patient denies any chest pain, shortness of breath, palpitations, lightheadedness or dizziness. She states that she gets short of breath with activity. She denies any much breakfast because she does not like the food and she complains of decreased appetite. She has been afebrile, heart rate 87, blood pressure 165/89, pulse ox 91-97% on room air. Hemoglobin this morning is at 7.0. Patient will be started on metoprolol 25 mg twice daily. 09/14: Patient denies having any chest pain, shortness of breath, lightheadedness or dizziness. She states she ate a little bit more yesterday and had 2 bowls of soup. This morning she did have a transient period of nausea which has resolved. Repeat hemoglobin is 9.6. Heart rate 91, pulse ox 100% on room air, blood pressure 144/78. Objective - Vital Signs Vital signs: Vital Signs Temp 98.4 F 09/14/19 04:00 Pulse 91 11/03/19 04:00 Resp 18 09/14/19 04:00 BP 150/89 09/14/19 04:00 Pulse Ox 100 09/14/19 04:00 Intake & Output 09/13/19 09/14/19 09/14/19 19:59 06:59 18:59 Intake Total Output Total Balance Weight Intake: Oral Blood Product Rc As-1 Unit [id number] Output: Urine Other: Voiding Method # Voids - Exam PHYSICAL EXAMINATION: GENERAL: 59-year-old female in no acute distress at the time of my examination HEENT: Head is atraumatic, normocephalic. Pupils equal, round. Sclera anicteric. Conjunctiva are clear. Mucous membranes of the mouth are moist. Neck is supple. There is no elevated jugular venous pressure. No carotid bruit is heard. HEART EXAMINATION: Heart S1, S2 normal. No murmur or gallop heard. CHEST EXAMINATION: Lungs are clear to auscultation and precussion. No chest wall tenderness is noted on palpation or with deep breathing. ABDOMEN: Soft, nontender. Bowel sounds are heard. No organomegaly noted. EXTREMITIES: 2+ peripheral pulses with no evidence of peripheral edema and no calf tenderness noted. NEUROLOGIC patient is awake, alert and oriented 3 . - Labs CBC & Chem 7: 09/14/19 07:17 09/14/19 06:00 Labs: Abnormal Lab Results - Last 24 Hours (Table) 09/13/19 09/13/19 09/14/19 Range/Units 11:08 11:08 07:17 RBC 3.43 L (3.80-5.40) m/uL Hgb 9.6 L D (11.4-16.0) gm/dL Hct 30.2 L (34.0-46.0) % RDW 18.9 H (11.5-15.5) % Lymphocytes # 0.9 L (1.0-4.8) k/uL Iron 14 L (50-170) ug/dL % Saturation 3.18 L (12.00-45.00) Crossmatch See Detail Assessment and Plan Plan: 1. Left-sided chest pain with reported history of positive stress test approximately a year ago at [facility]. 2. Staring episode, possible seizure activity. Consult with neurology, EEG. 3. Anemia, probable acute on chronic blood loss anemia secondary to alcoholic gastritis along with Brilinta and aspirin use. 4. Elevated liver function tests consistent with alcoholic liver disease with presentation of alcohol intoxication. 5. Recent CVA and left internal carotid artery stenting for critical stenosis in July 2019. 6. Hypertension. 7. Hyperlipidemia 8. Gastroesophageal reflux disease. 9. History of tobacco use and dependence as well as alcohol abuse Plan Echocardiogram with Doppler study was performed which revealed an ejection fraction of 60-65%. The patient has been advised to undergo cardiac catheterization, the risks and benefits were explained to the patient in detail. This will be performed on Sunday by Dr. Howard. No new concerns today. The patient has been started on metoprolol 25 mg twice daily. Continue aspirin 81 mg daily, atorvastatin 80 mg at bedtime, Brilinta 90 mg twice daily. No medication changes for today. There is practitioner note has been reviewed, I agree with the documented findings and plan of care. Patient was seen and examined.
--- NOTE | 2019-09-14 14:06 | P.PN ---
Subjective Progress Note Date: 09/14/19 This is a 59-year-old female patient of Dr. العلي with a past medical history of coronary artery disease, hypertension, seasonal ALLERGIES, gastroesophageal reflux disease, CVA. Patient presented to [facility] emergency center on July 26 with right upper and lower extremity weakness and difficulty with speech that had been going on for [address] angiography of the head and neck showed severe, 90% stenosis at the proximal left ICA. The left bifurcation is located 3 cm below the angle of the mandible. Mild, less than 50% narrowing proximal right ICA. CT brain without contrast showed a 1 cm hyperdense collates is in the region of the [place]. Note that this has been associated positional life-threatening hydrocephalus. No hydrocephalus at this time. Moderate patchy changes of chronic small vessel ischemic disease particularly in the left cerebral hemisphere. More focal area of cortical/subcortical hypodensity anterior left parietal lobe could represent an area of subacute infarct given weakness for 2 weeks. Case was discussed with Dr. Queen and patient was transferred to [facility] for carotid endarterectomy. Patient was to be on dual antiplatelet therapy with aspirin and Brilinta and also atorvastin. Patient was seen at [facility] as an admission on August 06 at which time she presented with right lower extremity pain and weakness secondary to lumbar radiculopathy and was discharged home. Patient now gives history of having a stress test done a couple years ago as Dr. Guzmán was planning on doing a carotid surgery at that time. This apparently was a normal stress test. In August 2018 she apparently had a myocardial infarction which she discovered in November 2018 and underwent a stress test at that time at [facility] which was apparently reported as abnormal and patient was to undergo heart catheterization but due to other issues this is been delayed. This is reported per patient. She complains of chest pain that started yesterday in the center of her chest and on the left side and also away to the left lateral area as well at times. She states she also had some shortness of breath. She is not sure how long this happened or if she is had other episodes. Patient is very vague. Patient also had an episode where she was staring off and then had projectile vomiting following that but did not seem confused afterwards. This was witnessed by the nurse. Patient is also noted to have a drop in her hemoglobin which was normal and July of this year at 12.3 now down to 7.9. Patient has not noticed any bloody or tarry stools. Regarding alcohol use, patient states that she daily drinks 2 glasses of wine in a couple sips of whiskey. She is also an active smoker and active marijuana use. She states that she did have an appointment with Dr. abdirahman gonzalez on outpatient labwork done at [facility] but did not go back for follow-up. Patient came into [facility] emergency center for evaluation. She was found initially to have a hemoglobin 9.6 and repeat 7.9, platelet count 189, potassium 3.4 and has been replaced. Creatinine 0.61. Total bilirubin 0.3, AST 142, ALT 78, alkaline phosphatase 163. Triglycerides 162, cholesterol 222, LDL 145, HDL 45, TSH 3.580. Urinalysis was clear. Serum alcohol level 236. She has been afebrile, initial heart rate was elevated as well as low blood pressure. Currently she is running a heart rate of 100, blood pressures 135/95 and pulse ox 99% on room air. Chest x-rays showed mild subsegmental a telectasis. CAT scan of the brain showed small subacute lacunar infarct left anterior parietal lobe unchanged. Cortical hypodensity that measures 2.5 cm left posterior parietal lobe consistent with subacute cortical infarct that is more well defined than recent exam. No evidence of new infarct. Patient admitted to the cardiac stepdown unit and consult requested with cardiology due to chest pain and reported by patient abnormal stress test done at [facility], neurology for possible seizure activity and a GI for anemia. 09/12: Echocardiogram reveals EF of 60-65% with moderate concentric left ventricular hypertrophy. Patient has been seen by Dr. Mauro Howard. Patient has had an EGD and colonoscopy done by Dr. Lynch about one year ago that showed gastritis and diverticulosis. She will review office records. Iron studies, vitamin B12, folate, reticulocyte levels ordered. Patient has been seen by cardiology with recommendations for heart catheterization on Sunday. We'll plan to order a midline as patient has no IV access. Neuro has signed off the case. Patient has been afebrile, heart rate 92, blood pressure 134/93, pulse ox 100% on room air. Hemoglobin is 8.7. Blood sugars 117 - 124. AST 77, ALT 61, alkaline phosphatase 167. EEG has been completed and report is pending. 09/13: Impression is resting in bed in no acute distress. Patient's hemoglobin has dropped to 7. Patient denies any bleeding, black tarry stools. Patient states that she is very tired and requesting to go back to sleep. She is scheduled to have a heart cath on Sunday. Patient remained afebrile, heart rate 84, blood pressure 150/84, pulse oxing 100% on room air. Respirations are 16 and unlabored. EEG shows: Normal EEG, no seizures or ordered no epileptiform activity was present. Hemoglobin 7, AST 51, ALT 45, total protein 5.5, albumin 2.9 09/14: Patient is sitting up in bed in no acute distress. Patient had 1 unit of packed red blood cells. Her hemoglobin was 9.6 this morning a little labs unremarkable. Patient denies any bleeding or black tarry stools. Patient is sc heduled for heart cath tomorrow. Patient remained afebrile and hemodynamically stable. Review of Systems Constitutional: Reports fatigue, Reports poor appetite, Reports weakness, Denies chills, Denies fever Eyes: denies blurred vision, denies pain Cardiovascular: Denies chest pain, Denies edema, Denies lightheadedness, Denies palpitations, Denies shortness of breath, Denies syncope Respiratory: Denies cough, Denies cough with sputum, Denies dyspnea, Denies hemoptysis, Denies home oxygen, Denies respiratory infections, Denies wheezing Gastrointestinal: Denies abdominal pain, Denies coffee ground emesis, Denies diarrhea, Denies hematemesis, Denies hematochezia, Denies loss of appetite, Denies melena, Denies nausea, Denies vomiting Genitourinary: Denies dysuria, Denies hematuria, Denies urgency Musculoskeletal: Denies muscle weakness, Denies myalgias Integumentary: Denies pruritus, Denies rash, Denies wounds Neurological: Reports change in mentation, Denies numbness, Denies weakness Psychiatric: Denies anxiety, Denies depression Objective - Vital Signs Vital signs: Vital Signs Temp 98.3 F 09/14/19 08:00 Pulse 77 09/14/19 11:46 Resp 16 09/14/19 11:45 BP 144/82 09/14/19 11:45 Pulse Ox 96 09/14/19 11:45 Intake & Output 09/13/19 09/14/19 09/14/19 19:59 06:59 18:59 Intake Total Output Total Balance Weight Intake: Oral Blood Product Rc As-1 Unit [id number] Output: Urine Other: Voiding Method Toilet # Voids 1 - Exam Gen: This is an obese 59-year-old female. She is in a sitting in chair and appears to be comfortable and in no acute distress. HEENT: Head is atraumatic, normocephalic. Pupils equal, round. Sclerae is anicteric. NECK: Supple. No JVD. No lymphadenopathy. No thyromegaly. LUNGS: Clear to auscultation. No wheezes or rhonchi. No intercostal retractions. HEART: Regular rate and rhythm. No murmur. ABDOMEN: Soft. Bowel sounds are present. No masses. No tenderness. EXTREMITIES: No pedal edema. No calf tenderness. Significant edema to the left hand secondary to infiltration from IV fluids. NEUROLOGICAL: Patient is awake, alert and oriented x3. Cranial nerves 2 through 12 are grossly intact. - Labs CBC & Chem 7: 09/14/19 07:17 09/14/19 06:00 Labs: Abnormal Lab Results - Last 24 Hours (Table) 09/13/19 09/13/19 09/14/19 Range/Units 11:08 11:08 07:17 RBC 3.43 L (3.80-5.40) m/uL Hgb 9.6 L D (11.4-16.0) gm/dL Hct 30.2 L (34.0-46.0) % RDW 18.9 H (11.5-15.5) % Lymphocytes # 0.9 L (1.0-4.8) k/uL Iron 14 L (50-170) ug/dL % Saturation 3.18 L (12.00-45.00) Crossmatch See Detail Assessment and Plan Plan: 1. Sternal, left-sided chest pain with reported history of positive stress test. Radiology consult appreciated. Initial troponin negative. Patient is scheduled for heart catheterization tomorrow. 2. Staring episode possible seizure activity. EEG results noted above. 3. Anemia, probable acute on chronic blood loss anemia secondary to alcoholic gastritis along with Brilinta and aspirin use. Post transfusion of 1 unit of packed red blood cells hemoglobin 9.6. Consult with GI appreciated. Protonix twice daily. 4. Elevated liver function tests consistent with alcoholic liver disease with presentation of alcohol intoxication. Patient counseled regarding alcohol cessation. [facility] protocol. 5. Recent CVA and left internal carotid artery stenting for critical stenosis in July 2019. Neurology consult. Continue Brilinta, aspirin and statin. 6. Hypertension. Continue amlodipine 5 mg daily. 7. Possible history of coronary artery disease. Continue aspirin, Imdur 30 mg daily. 8. Gastroesophageal reflux disease. Continue Protonix. 9. History of tobacco use and dependence, alcohol abuse, patient counseled regarding cessation. Discharge plan: Return home Impression and plan of care have been directed as dictated by the signing physician. Amira Andino nurse practitioner acting as scribe for signing austin garcia.
[2019-09-14] MEDS ORDERED: SODIUM CHLORIDE 0.9% 1,000 ML in EMPTY BAG 1 BAG IV ONE (16:00)
[2019-09-14] MEDS: ATORVASTATIN 80 MG TAB PO SCH (21:06)
--- NOTE | 2019-09-14 21:09 | P.PN ---
Subjective Progress Note Date: 09/14/19 Principal diagnosis: Alcoholic liver disease, elevated liver enzymes, normocytic anemia Patient is seen lying in bed reporting that she is tolerating her diet. No signs or symptoms GI bleeding. No abdominal pain reported. Objective - Vital Signs Vital signs: Vital Signs Temp 98.3 F 09/14/19 08:00 Pulse 89 09/14/19 08:00 Resp 18 09/14/19 08:00 BP 154/94 09/14/19 08:00 Pulse Ox 93 L 09/14/19 08:00 Intake & Output 09/13/19 09/14/19 09/14/19 19:59 06:59 18:59 Intake Total Output Total Balance Weight Intake: Oral Blood Product Rc As-1 Unit [id number] Output: Urine Other: Voiding Method Toilet # Voids - Exam On physical examination, patient appears comfortable in no apparent distress. HEAD: Normocephalic, atraumatic. EYES: No scleral icterus. No conjunctival injection. MOUTH: No lesions, tongue midline. NECK: Trachea midline, no gross abnormalities. CHEST: Clear to auscultation with no wheezing or rhonchi appreciated. HEART: S1-S2 appreciated. ABDOMEN: Soft, obese. Bowel sounds are positive. No organomegaly. No guarding or rigidity. EXTREMITIES: No pedal edema. SKIN: No rashes, no jaundice. NEUROLOGIC: Alert and oriented x3. No focal deficits. - Labs CBC & Chem 7: 09/14/19 07:17 09/14/19 06:00 Labs: Abnormal Lab Results - Last 24 Hours (Table) 09/13/19 09/13/19 09/14/19 Range/Units 11:08 11:08 07:17 RBC 3.43 L (3.80-5.40) m/uL Hgb 9.6 L D (11.4-16.0) gm/dL Hct 30.2 L (34.0-46.0) % RDW 18.9 H (11.5-15.5) % Lymphocytes # 0.9 L (1.0-4.8) k/uL Iron 14 L (50-170) ug/dL % Saturation 3.18 L (12.00-45.00) Crossmatch See Detail Assessment and Plan (1) Elevated liver enzymes Narrative/Plan: 59-year-old female with a known history of alcoholic liver disease secondary to alcohol abuse currently presenting with plans for heart catheterization tomorrow. Liver enzymes have remained stable. No signs or symptoms of GI bleeding. Patient is status post 1 unit of packed red blood cells yesterday with stable hemoglobin. Current Visit: Yes Status: Acute Code(s): R74.8 - ABNORMAL LEVELS OF OTHER SERUM ENZYMES SNOMED Code(s): 449739353 (2) Normocytic anemia Current Visit: Yes Status: Acute Code(s): D64.9 - ANEMIA, UNSPECIFIED SNOMED Code(s): 573139095 Plan: Supportive care Okay for diet Continue to monitor CBC, CMP Alcohol abstinence Further workup per cardiology Follow-up with gastroenterology as previously scheduled after discharge Thank you for allowing us to participate in the care of the patient, the GI service will stand by, please call us back with any questions or concerns
[2019-09-15] MEDS: Acetaminophen-Codeine 300-30mg TAB PO PRN ×3 (03:25→20:19)
[2019-09-15] MEDS ORDERED: ASPIRIN 325 MG TAB PO ONE (06:00)
[2019-09-15] MEDS ORDERED: ATORVASTATIN 80 MG TAB PO ONE (06:00)
[2019-09-15 07:02] LABS: Anisocytosis Slight; Basophils # (A) 0.1 k/uL (0-0.2); Basophils % (A) 1 %; Eosinophils # (A) 0.2 k/uL (0-0.7); Eosinophils % (A) 3 %; HGB 9.4 gm/dL (11.4-16.0); Hypochromasia Marked; Lymphocytes # (A) 0.8 k/uL (1.0-4.8); Lymphocytes % (A) 13 %; MCH 27.8 pg (25.0-35.0); MCHC 31.3 g/dL (31.0-37.0); MCV 88.6 fL (80.0-100.0); Mean Platelet Volume 7.1; Monocytes # (A) 0.3 k/uL (0-1.0); Monocytes % (A) 4 %; Neutrophils % (A) 76 %; Platelet Count 177 k/uL (150-450); Poikilocytosis Moderate; RBC 3.39 m/uL (3.80-5.40); RDW 18.8 % (11.5-15.5); WBC 6.6 k/uL (3.8-10.6)
[2019-09-15 07:10] LABS: African American GFR (CKD) >90 (>60 ml/min/1.73 sqM); Anion Gap 8 mmol/L; Blood Urea Nitrogen 7 mg/dL (7-17); Calcium 8.4 mg/dL (8.4-10.2); Carbon Dioxide 24 mmol/L (22-30); Chloride 108 mmol/L (98-107); Glucose 105 mg/dL (74-99); Potassium 3.5 mmol/L (3.5-5.1); Sodium 140 mmol/L (137-145)
[2019-09-15] MEDS: TICAGRELOR 90 MG TAB PO SCH ×2 (08:45→20:19)
[2019-09-15] MEDS: PANTOPRAZOLE 40 MG TABLET PO SCH ×2 (08:45→20:19)
[2019-09-15] MEDS: amLODIPine 5 MG TAB PO SCH (08:45)
[2019-09-15] MEDS: NICOTINE 14MG/24HR PATCH TRANSDERM SCH (08:45)
[2019-09-15] MEDS ORDERED: fentaNYL (PF) 50 MCG/ML 2 ML AMP ONE (11:46)
[2019-09-15] MEDS ORDERED: LIDOCAINE 1% INJ 10MG/ML (20 ML MDV) ONE (11:46)
[2019-09-15] MEDS ORDERED: IV FLUID CONTINUATION 900 ML IV ONE (11:52)
[2019-09-15] MEDS ORDERED: MIDAZOLAM 2 MG/2 ML VIAL IV ONE ×2 (12:45)
[2019-09-15] MEDS ORDERED: fentaNYL (PF) 50 MCG/ML 2 ML AMP IV ONE (12:45)
[2019-09-15] MEDS ORDERED: LIDOCAINE 1% INJ 10MG/ML (20 ML MDV) SQ ONE (12:49)
[2019-09-15] MEDS ORDERED: NITROGLYCERIN OINT 1 INCH/GM PACKET TOPICAL ONE ×2 (12:54)
[2019-09-15] MEDS ORDERED: ENALAPRILAT 1.25 MG/ML 1 ML VIAL ONE (12:57)
[2019-09-15] MEDS ORDERED: IOPAMIDOL-370 125ML BTL INJ ONE (12:59)
[2019-09-15] MEDS ORDERED: ENALAPRILAT 1.25 MG/ML 1 ML VIAL IV ONE (12:59)
[2019-09-15] MEDS ORDERED: RX INFO: IV CONTRAST WAS GIVEN 1 EACH MISC MISCELLANE PRN (13:07)
[2019-09-15] MEDS: SODIUM CHLORIDE 0.9% 1,000 ML IV SCH (14:28)
--- NOTE | 2019-09-15 15:07 | P.PN ---
Subjective Progress Note Date: 09/15/19 This is a 59-year-old female patient of Dr. العلي with a past medical history of coronary artery disease, hypertension, seasonal ALLERGIES, gastroesophageal reflux disease, CVA. Patient presented to [facility] emergency center on July 26 with right upper and lower extremity weakness and difficulty with speech that had been going on for [address] angiography of the head and neck showed severe, 90% stenosis at the proximal left ICA. The left bifurcation is located 3 cm below the angle of the mandible. Mild, less than 50% narrowing proximal right ICA. CT brain without contrast showed a 1 cm hyperdense collates is in the region of the [place]. Note that this has been associated positional life-threatening hydrocephalus. No hydrocephalus at this time. Moderate patchy changes of chronic small vessel ischemic disease particularly in the left cerebral hemisphere. More focal area of cortical/subcortical hypodensity anterior left parietal lobe could represent an area of subacute infarct given weakness for 2 weeks. Case was discussed with Dr. Queen and patient was transferred to [facility] for carotid endarterectomy. Patient was to be on dual antiplatelet therapy with aspirin and Brilinta and also atorvastin. Patient was seen at [facility] as an admission on August 06 at which time she presented with right lower extremity pain and weakness secondary to lumbar radiculopathy and was discharged home. Patient now gives history of having a stress test done a couple years ago as Dr. Guzmán was planning on doing a carotid surgery at that time. This apparently was a normal stress test. In August 2018 she apparently had a myocardial infarction which she discovered in November 2018 and underwent a stress test at that time at [facility] which was apparently reported as abnormal and patient was to undergo heart catheterization but due to other issues this is been delayed. This is reported per patient. She complains of chest pain that started yesterday in the center of her chest and on the left side and also away to the left lateral area as well at times. She states she also had some shortness of breath. She is not sure how long this happened or if she is had other episodes. Patient is very vague. Patient also had an episode where she was staring off and then had projectile vomiting following that but did not seem confused afterwards. This was witnessed by the nurse. Patient is also noted to have a drop in her hemoglobin which was normal and July of this year at 12.3 now down to 7.9. Patient has not noticed any bloody or tarry stools. Regarding alcohol use, patient states that she daily drinks 2 glasses of wine in a couple sips of whiskey. She is also an active smoker and active marijuana use. She states that she did have an appointment with Dr. abdirahman gonzalez on outpatient labwork done at [facility] but did not go back for follow-up. Patient came into [facility] emergency center for evaluation. She was found initially to have a hemoglobin 9.6 and repeat 7.9, platelet count 189, potassium 3.4 and has been replaced. Creatinine 0.61. Total bilirubin 0.3, AST 142, ALT 78, alkaline phosphatase 163. Triglycerides 162, cholesterol 222, LDL 145, HDL 45, TSH 3.580. Urinalysis was clear. Serum alcohol level 236. She has been afebrile, initial heart rate was elevated as well as low blood pressure. Currently she is running a heart rate of 100, blood pressures 135/95 and pulse ox 99% on room air. Chest x-rays showed mild subsegmental atelectasis. CAT scan of the brain showed small subacute lacunar infarct left anterior parietal lobe unchanged. Cortical hypodensity that measures 2.5 cm left posterior parietal lobe consistent with subacute cortical infarct that is more well defined than recent exam. No evidence of new infarct. Patient admitted to the cardiac stepdown unit and consult requested with cardiology due to chest pain and reported by patient abnormal stress test done at [facility], neurology for possible seizure activity and a GI for anemia. 09/12: Echocardiogram reveals EF of 60-65% with moderate concentric left ventricular hypertrophy. Patient has been seen by Dr. Mauro Howard. Patient has had an EGD and colonoscopy done by Dr. Lynch about one year ago that showed gastritis and diverticulosis. She will review office records. Iron studies, vitamin B12, folate, reticulocyte levels ordered. Patient has been seen by cardiology with recommendations for heart catheterization on Sunday. We'll plan to order a midline as patient has no IV access. Neuro has signed off the case. Patient has been afebrile, heart rate 92, blood pressure 134/93, pulse ox 100% on room air. Hemoglobin is 8.7. Blood sugars 117 - 124. AST 77, ALT 61, alkaline phosphatase 167. EEG has been completed and report is pending. 09/13: Impression is resting in bed in no acute distress. Patient's hemoglobin has dropped to 7. Patient denies any bleeding, black tarry stools. Patient states that she is very tired and requesting to go back to sleep. She is scheduled to have a heart cath on Sunday. Patient remained afebrile, heart rate 84, blood pressure 150/84, pulse oxing 100% on room air. Respirations are 16 and unlabored. EEG shows: Normal EEG, no seizures or ordered no epileptiform activity was present. Hemoglobin 7, AST 51, ALT 45, total protein 5.5, albumin 2.9 09/14: Patient is sitting up in bed in no acute distress. Patient had 1 unit of packed red blood cells. Her hemoglobin was 9.6 this morning a little labs unremarkable. Patient denies any bleeding or black tarry stools. Patient is s cheduled for heart cath tomorrow. Patient remained afebrile and hemodynamically stable. 09/15: Hemoglobin 9.4, BUN 7, creatinine 0.56, potassium 3.5. Patient underwent heart catheterization today and report is pending. Cardiology is planning to keep the patient another day. We will hold discharge until cleared by cardiology. Review of Systems Constitutional: Reports fatigue, Reports poor appetite, Reports weakness, Denies chills, Denies fever Eyes: denies blurred vision, denies pain Cardiovascular: Denies chest pain, Denies edema, Denies lightheadedness, Denies palpitations, Denies shortness of breath, Denies syncope Respiratory: Denies cough, Denies cough with sputum, Denies dyspnea, Denies hemoptysis, Denies home oxygen, Denies respiratory infections, Denies wheezing Gastrointestinal: Denies abdominal pain, Denies coffee ground emesis, Denies diarrhea, Denies hematemesis, Denies hematochezia, Denies loss of appetite, Denies melena, Denies nausea, Denies vomiting Genitourinary: Denies dysuria, Denies hematuria, Denies urgency Musculoskeletal: Denies muscle weakness, Denies myalgias Integumentary: Denies pruritus, Denies rash, Denies wounds Neurological: Reports change in mentation, Denies weakness Psychiatric: Denies anxiety, Denies depression Objective - Vital Signs Vital signs: Vital Signs Temp 98.6 F 09/15/19 13:40 Pulse 87 09/15/19 14:25 Resp 16 09/15/19 14:25 BP 139/92 09/15/19 14:25 Pulse Ox 97 09/15/19 14:25 Intake & Output 09/14/19 09/15/19 09/15/19 18:59 06:59 18:59 Intake Total 720 1040 150 Balance 720 1040 150 Weight 68.9 kg Intake: IV 560 150 0.9@75 560 Oral 720 480 Other: Voiding Method Toilet Toilet # Voids 1 5 2 - Exam Gen: This is an obese 59-year-old female. She is in a sitting up in bed and appears to be comfortable and in no acute distress. HEENT: Head is atraumatic, normocephalic. Pupils equal, round. Sclerae is anicteric. NECK: Supple. No JVD. No lymphadenopathy. No thyromegaly. LUNGS: Clear to auscultation. No wheezes or rhonchi. No intercostal retractions. HEART: Regular rate and rhythm. No murmur. ABDOMEN: Soft. Bowel sounds are present. No masses. No tenderness. EXTREMITIES: No pedal edema. No calf tenderness. NEUROLOGICAL: Patient is awake, alert and oriented x3. Cranial nerves 2 through 12 are grossly intact. - Labs CBC & Chem 7: 09/15/19 05:53 09/15/19 05:53 Labs: Abnormal Lab Results - Last 24 Hours (Table) 09/15/19 09/15/19 Range/Units 05:53 05:53 RBC 3.39 L (3.80-5.40) m/uL Hgb 9.4 L (11.4-16.0) gm/dL Hct 30.0 L (34.0-46.0) % RDW 18.8 H (11.5-15.5) % Lymphocytes # 0.8 L (1.0-4.8) k/uL Chloride 108 H (98-107) mmol/L Glucose 105 H (74-99) mg/dL Assessment and Plan Plan: 1. Sternal, left-sided chest pain with reported history of positive stress test. Cardiology consult appreciated. Initial troponin negative. Status post heart catheterization, report is pending 2. Staring episode possible seizure activity. EEG results noted above. 3. Anemia, probable acute on chronic blood loss anemia secondary to alcoholic gastritis along with Brilinta and aspirin use. Post transfusion of 1 unit of packed red blood cells with repeat hemoglobin 9.6. Consult with GI appreciated. Protonix twice daily. 4. Elevated liver function tests consistent with alcoholic liver disease with presentation of alcohol intoxication. Patient counseled regarding alcohol cessation. [facility] protocol. 5. Recent CVA and left internal carotid artery stenting for critical stenosis in July 2019. Neurology consult. Continue Brilinta, aspirin and statin. 6. Hypertension. Continue amlodipine 5 mg daily. 7. Possible history of coronary artery disease. Continue aspirin, Imdur 30 mg daily. 8. Gastroesophageal reflux disease. Continue Protonix. 9. History of tobacco use and dependence, alcohol abuse, patient counseled regarding cessation. Discharge plan: Return home to stay Impression and plan of care have been directed as dictated by the signing austin garcia. Amira Andino nurse practitioner acting as scribe for signing physician.
[2019-09-15] MEDS: LIDOCAINE 5% PATCH TOPICAL SCH (16:39)
--- NOTE | 2019-09-15 17:18 | CC ---
CARDIAC CATHETERIZATION REPORT INDICATIONS: Chest pain with abnormal stress test. PROCEDURE NOTE: After obtaining informed consent, left heart catheterization, coronary angiogram are performed via the right femoral artery using standard [place] catheters. A femoral angiogram was obtained and decision was made for manual hemostasis. The patient has extensive atherosclerotic plaque in the common femoral artery. The patient tolerated the procedure well without any obvious immediate complications. SEDATION: Patient received moderate conscious sedation. Total sedation time was 15 minutes. FINDINGS: HEMODYNAMICS: Left ventricular end-diastolic pressure is 16-18 mm. There is no significant gradient across the aortic valve. LEFT VENTRICULOGRAM: Left ventriculogram is not performed. ANGIOGRAPHIC DATA: LEFT MAIN CORONARY ARTERY: Left main coronary artery is a short vessel and is free of significant stenosis. Divides into left anterior descending coronary artery and circumflex coronary artery. CIRCUMFLEX CORONARY ARTERY: Circumflex coronary artery is a nondominant vessel and shows mild nonobstructive coronary artery disease. There are extensive collaterals to the distal right coronary artery from the left system. LEFT ANTERIOR DESCENDING CORONARY ARTERY: LAD shows a mild atherosclerotic plaque as does 1 of the OM branches. RIGHT CORONARY ARTERY: Right coronary artery is chronically occluded in its proximal part. CONCLUSIONS: Chronic total occlusion of the right coronary artery with extensive collaterals from the left system. PLAN: Patient's management is going to be in the form of risk factor modification, medical therapy with aspirin, statin. Optimal control of blood pressure and the patient is currently on Brilinta, which she is going to continue. I would also continue the nitrates. Control blood pressures more optimally by increasing the dose of Norvasc and if necessary add DORENE inhibitors. MMODL / IJN: [id number] /
[2019-09-15] MEDS: FAMOTIDINE 20 MG TAB PO PRN (18:24)
[2019-09-15] MEDS: ATORVASTATIN 80 MG TAB PO SCH (20:19)
[2019-09-15 22:27] VITALS: RESP 18
[2019-09-16] MEDS: SODIUM CHLORIDE 0.9% 1,000 ML IV SCH ×2 (01:10→08:20)
[2019-09-16 05:15] VITALS: PULSE 83
[2019-09-16] MEDS: PANTOPRAZOLE 40 MG TABLET PO SCH (08:38)
[2019-09-16] MEDS: amLODIPine 5 MG TAB PO SCH (08:38)
[2019-09-16] MEDS: NICOTINE 14MG/24HR PATCH TRANSDERM SCH (08:38)
[2019-09-16] MEDS: TICAGRELOR 90 MG TAB PO SCH (08:38)
[2019-09-16] MEDS: LIDOCAINE 5% PATCH TOPICAL SCH (08:41)
[2019-09-16] MEDS: Acetaminophen-Codeine 300-30mg TAB PO PRN (08:41)
[2019-09-16] MEDS ORDERED: ASPIRIN 81 MG PO SCH (09:00)
[2019-09-16 11:47] VITALS: BP 122/79; TEMP 96.8
--- NOTE | 2019-09-16 12:14 | P.PN ---
Subjective Progress Note Date: 09/16/19 This is a 51-year-old female with history of EtOH abuse, hypertension, hyperlipidemia, CVA, asthma, seizure disorder, who presents to the hospital with symptoms of chest discomfort, she was seen in consultation yesterday by Dr. Vidal. On presentation here she had an alcohol level of 240, her EKG showed normal sinus rhythm with ST-T wave changes. Patient was admitted to [facility] approximately a year ago, she underwent a stress test at that time which was reported to be abnormal and cardiac catheterization was advised at that time. Patient also has history of left carotid stenosis for which she underwent left carotid stenting at [facility]. Patient was seen and exami rainer this morning, she denies having any further episodes of chest discomfort. Echocardiogram with Doppler study was performed which revealed an ejection fraction of 60-65%. Dr. Mauro Howard was consulted on the patient because of a low hemoglobin as well as elevated liver enzymes. They have recommended ordering iron studies, vitamin B12, reticular count, we will also review office records for prior workup on her chronic liver disease. White blood cell count today is 5.2, hemoglobin 8.7, platelet count 178. Sodium 141, potassium 3.8, BUN 9 and creatinine 0.6. AST 77, ALT 61, alk phos 167. 09/16/2019 Patient underwent a cardiac catheterization yesterday which revealed a chronic total occlusion of the right coronary artery with extensive collaterals from the left system and medical therapy was advised. She was seen and examined this morning, denied any chest pain or difficulty in breathing. Blood pressure 140/90 with a heart rate in the 80s. Blood pressure 122/80 with a heart rate in the 80s, 97% on room air. Objective - Vital Signs Vital signs: Vital Signs Temp 96.8 F L 09/16/19 11:45 Pulse 83 09/16/19 11:45 Resp 18 09/16/19 11:45 BP 122/79 09/16/19 11:45 Pulse Ox 97 09/16/19 11:45 Intake & Output 09/15/19 09/16/19 09/16/19 18:59 06:59 18:59 Intake Total 510 960 360 Output Total 1 450 Balance 510 959 -90 Weight 68.7 kg Intake: IV 150 Oral 360 960 360 Output: Urine 1 450 Other: Voiding Method Toilet Toilet # Voids 2 2 1 # Bowel Movements 2 - Exam PHYSICAL EXAMINATION: GENERAL: 59-year-old female in no acute distress at the time of my examination HEENT: Head is atraumatic, normocephalic. Pupils equal, round. Sclera anicteric. Conjunctiva are clear. Mucous membranes of the mouth are moist. Neck is supple. There is no elevated jugular venous pressure. No carotid bruit is heard. HEART EXAMINATION: Heart S1, S2 normal. No murmur or gallop heard. CHEST EXAMINATION: Lungs are clear to auscultation and precussion. No chest wall tenderness is noted on palpation or with deep breathing. ABDOMEN: Soft, nontender. Bowel sounds are heard. No organomegaly noted. EXTREMITIES: 2+ peripheral pulses with no evidence of peripheral edema and no calf tenderness noted. Right groin is soft, no evidence of any hematoma. NEUROLOGIC patient is awake, alert and oriented 3 . . - Labs CBC & Chem 7: 09/15/19 05:53 09/15/19 05:53 Assessment and Plan Plan: Assessment and Plan: 1. Left-sided chest pain with reported history of positive stress test ap proximately a year ago at [facility]. 2. Staring episode, possible seizure activity. Consult with neurology, EEG. 3. Anemia, probable acute on chronic blood loss anemia secondary to alcoholic gastritis along with Brilinta and aspirin use. 4. Elevated liver function tests consistent with alcoholic liver disease with presentation of alcohol intoxication. 5. Recent CVA and left internal carotid artery stenting for critical stenosis in July 2019. 6. Hypertension. 7. Hyperlipidemia 8. Gastroesophageal reflux disease. 9. History of tobacco use and dependence as well as alcohol abuse Plan Echocardiogram with Doppler study was performed which revealed an ejection fraction of 60-65%. Cardiac catheterization revealed a chronic total occlusion of the right coronary artery with collaterals filling from the left system. From cardiology's perspective, patient may be able to be discharged home today, follow-up appointment in the office post discharge. DNP note has been reviewed, I agree with a documented findings and plan of care. Patient was seen and examined.
== END 2019-09-16 14:24 | disposition home or self-care (01) | DRG 286 ==
LOC: EC 17:16 → 3SCARD 23:09 → OBSVTOIN 09-12 14:00
PROVIDERS: ADMIT Internal Medicine; ATTEND Internal Medicine
PROC: 05HC33Z Insertion of Infusion Device into Left Basilic Vein, Percutaneous Approach (ICD-10-PCS; 2019-09-12)
PROC: B2111ZZ Fluoroscopy of Multiple Coronary Arteries using Low Osmolar Contrast (ICD-10-PCS; 2019-09-15)
PROC: 4A023N7 Measurement of Cardiac Sampling and Pressure, Left Heart, Percutaneous Approach (ICD-10-PCS; principal; 2019-09-15 12:00)
DX: I25.10 Atherosclerotic heart disease of native coronary artery without angina pectoris (principal); K29.21 Alcoholic gastritis with bleeding; D62 Acute posthemorrhagic anemia; I69.351 Hemiplegia and hemiparesis following cerebral infarction affecting right dominant side; J98.11 Atelectasis; I25.82 Chronic total occlusion of coronary artery; F17.210 Nicotine dependence, cigarettes, uncomplicated; E78.5 Hyperlipidemia, unspecified; F10.129 Alcohol abuse with intoxication, unspecified; F32.9 Major depressive disorder, single episode, unspecified; F41.9 Anxiety disorder, unspecified; G40.909 Epilepsy, unspecified, not intractable, without status epilepticus; I11.9 Hypertensive heart disease without heart failure; I25.2 Old myocardial infarction; J45.909 Unspecified asthma, uncomplicated; K21.9 Gastro-esophageal reflux disease without esophagitis; K58.9 Irritable bowel syndrome, unspecified; K70.9 Alcoholic liver disease, unspecified; Z91.81 History of falling; Y90.8 Blood alcohol level of 240 mg/100 ml or more; Z79.02 Long term (current) use of antithrombotics/antiplatelets; Z79.1 Long term (current) use of non-steroidal anti-inflammatories (NSAID); Z79.82 Long term (current) use of aspirin; Z79.899 Other long term (current) drug therapy; Z80.9 Family history of malignant neoplasm, unspecified; Z82.49 Family history of ischemic heart disease and other diseases of the circulatory system; Z82.5 Family history of asthma and other chronic lower respiratory diseases; G93.0 Cerebral cysts; Z71.41 Alcohol abuse counseling and surveillance of alcoholic; Z71.6 Tobacco abuse counseling; Z88.5 Allergy status to narcotic agent; Z88.7 Allergy status to serum and vaccine
CPT/HCPCS: 36410; 36415; 70450; 71046; 76937; 80048; 80053; 80061; 80320; 81003; 82607; 82728; 82746; 83036; 83540; 83550; 83735; 83880; 84443; 84466; 84484; 85025; 85045; 85379; 85610; 85730; 86850; 86900; 86901; 86920; 93306; 93458; 94760; 95816; 99285

== ENCOUNTER 2019-12-10 12:39 | Emergency (ER) | payer OTHER ==
[2019-12-10] MEDS ORDERED: SODIUM CHLORIDE 0.9% 1,000 ML IV STA ×2 (13:03→15:00)
[2019-12-10] MEDS ORDERED: SODIUM CHLORIDE 0.9% 500 ML 500 ML IV STA ×2 (13:03→15:00)
[2019-12-10] MEDS ORDERED: KETOROLAC 30 MG/ML 1 ML VIAL IVP STA (13:05)
--- NOTE | 2019-12-10 13:38 | XR ---
EXAMINATION TYPE: XR chest 2V DATE OF EXAM: 12/10/2019 COMPARISON: 09/10/2019 HISTORY: Weakness TECHNIQUE: Frontal and lateral views of the chest are obtained. FINDINGS: There is no focal air space opacity, pleural effusion, or pneumothorax seen. The cardiac silhouette size is within normal limits. The osseous structures are intact. IMPRESSION: No acute cardiopulmonary process.
--- NOTE | 2019-12-10 13:57 | CT ---
EXAMINATION TYPE: CT brain wo con DATE OF EXAM: 12/10/2019 COMPARISON: 09/10/2019 HISTORY: 59-year-old female Weakness, fall TECHNIQUE: Examination was done in axial plane without intravenous contrast. Coronal and sagittal r econstructions performed. CT DLP: 1099.4 mGycm Automated exposure control for dose reduction was used. FINDINGS: Symmetrical streak artifact within the middle cranial fossa, axial image 11. 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 No hydrocephalus. Stable encephalomalacia anterior left parietal cortex and left frontal cortical and subcortical white matter. There is no evidence of acute intracranial hemorrhage, acute ischemic changes, mass, mass-effect, or extra-axial fluid collection. There is no effacement of cerebral sulci or basal subarachnoid cister ns. There is no hydrocephalus. There is no midline shift. [place]-white matter distinction is preserv ed. High riding left jugular bulb. Mild mucosal thickening left ethmoid air cells and left maxillary sinus. Visualized orbits and globes are intact. Mastoid air cells well pneumatized. IMPRESSION: Stable anterior left parietal and left frontal encephalomalacia from prior infarcts. Some prominent s kull base artifacts. Stable 1.0 cm colloid cyst at the foramen of Yu (note that this can be a cau se of postural life-threatening hydrocephalus and the patient should be made aware). No acute intracr anial abnormality seen.
[2019-12-10 14:08] LABS: Appearance,Urine Clear (Clear); Bilirubin,Urine Negative (Negative); Blood,Urine Negative (Negative); Color,Urine Light Yellow; Glucose,Urine (UA) Negative (Negative); Ketones,Urine Negative (Negative); Leukocyte Esterase,Urine Negative (Negative); Nitrite,Urine Negative (Negative); Protein,Urine Negative (Negative); Specific Gravity,Urine 1.002 (1.001-1.035); Urobilinogen,Urine <2.0 mg/dL (<2.0)
[2019-12-10 14:09] LABS: Anisocytosis Moderate; Basophils # (A) 0.3 k/uL (0-0.2); Basophils % (A) 3 %; Eosinophils # (A) 0.2 k/uL (0-0.7); Eosinophils % (A) 2 %; HCT 42.1 % (34.0-46.0); HGB 12.9 gm/dL (11.4-16.0); Hypochromasia Slight; Lymphocytes # (A) 2.6 k/uL (1.0-4.8); Lymphocytes % (A) 27 %; MCH 26.4 pg (25.0-35.0); MCHC 30.6 g/dL (31.0-37.0); MCV 86.5 fL (80.0-100.0); Mean Platelet Volume 7.8; Microcytosis Slight; Monocytes # (A) 0.5 k/uL (0-1.0); Monocytes % (A) 5 %; Neutrophils # (A) 5.7 k/uL (1.3-7.7); Neutrophils % (A) 60 %; Platelet Count 287 k/uL (150-450); RBC 4.87 m/uL (3.80-5.40); RDW 21.4 % (11.5-15.5); WBC 9.6 k/uL (3.8-10.6)
[2019-12-10 14:20] LABS: African American GFR (CKD) >90 (>60 ml/min/1.73 sqM); Albumin 4.1 g/dL (3.5-5.0); Anion Gap 15 mmol/L; Blood Urea Nitrogen 4 mg/dL (7-17); Chloride 104 mmol/L (98-107); Magnesium 1.9 mg/dL (1.6-2.3); Non-African American GFR(CKD) >90 (>60 ml/min/1.73 sqM); Total Bilirubin 0.4 mg/dL (0.2-1.3); Total Protein 7.4 g/dL (6.3-8.2)
[2019-12-10 14:27] LABS: INR 0.9 (<1.2); Prothrombin Time 9.4 sec (9.0-12.0)
[2019-12-10 14:32] LABS: Lactic Acid, Venous 3.6 mmol/L (0.7-2.0)
[2019-12-10 14:33] LABS: ALT 101 U/L (4-34); AST 183 U/L (14-36); Alkaline Phosphatase 190 U/L (38-126); Calcium 8.8 mg/dL (8.4-10.2); Carbon Dioxide 22 mmol/L (22-30); Creatine Kinase 36 U/L (30-135); D-Dimer 0.67 mg/L FEU (<0.60); Glucose 93 mg/dL (74-99); Sodium 141 mmol/L (137-145)
[2019-12-10 14:34] LABS: Alcohol 227 mg/dL
[2019-12-10 14:35] LABS: Partial Thromboplastin Time 21.5 sec (22.0-30.0)
--- NOTE | 2019-12-10 14:59 | ED ---
Seizure HPI - General Chief Complaint: Seizure Stated Complaint: Not feeling well Time Seen by Provider: 12/10/19 12:39 Source: patient, EMS, RN notes reviewed, old records reviewed Mode of arrival: EMS Limitations: no limitations - History of Present Illness Initial Comments: This a 59-year-old female who presents by EMS states she had does not feel well states she was concerned she had another's CVA or had a seizure and she alleges that she had a seizure in route by paramedics states she was cognizant throughout the transport. She states she wasn't feeling good she did fall yesterday she states her legs just gave out he complains of left SI joint area pain. He tells me that she is concerned that she may have had a seizure or a CVA she demonstrates no overt headache or focal weakness or arms or legs. No nausea vomiting diarrhea no palpitations she does complain of low back pain. No urinary or fecal incontinence - Related Data Home Medications Medication Instructions Recorded Confirmed Aspirin EC [Ecotrin Low Dose] 81 mg PO DAILY 02/11/19 12/10/19 Atorvastatin Calcium [Lipitor] 80 mg PO HS 08/05/19 12/10/19 Ticagrelor [Brilinta] 90 mg PO BID 08/05/19 12/10/19 Isosorbide Mononitrate ER [Imdur] 30 mg PO DAILY 09/10/19 12/10/19 Pantoprazole [Protonix] 40 mg PO DAILY 09/10/19 12/10/19 Fluticasone Nasal [place] [Flonase 2 sprays EA NOSTRIL DAILY 09/12/19 12/10/19 Nasal [place]] amLODIPine [Norvasc] 10 mg PO DAILY 12/10/19 12/10/19 Previous Rx's Medication Instructions Recorded Celecoxib [CeleBREX] 200 mg PO DAILY #30 cap 08/06/19 Nitroglycerin Sl Tabs [Nitrostat] 0.4 mg SUBLINGUAL Q5M PRN #25 tab 09/16/19 Allergies Allergy/AdvReac Type Severity Reaction Status Date / Time Influenza Virus Vaccines AdvReac Nausea & Verified 12/10/19 13:47 Vomiting morphine AdvReac Nausea & Verified 12/10/19 13:47 Vomiting Review of Systems ROS Statement: Those systems with pertinent positive or pertinent negative responses have been documented in the HPI. ROS Other: All systems not noted in ROS Statement are negative. Past Medical History Past Medical History: Asthma, CVA/TIA, Myocardial Infarction ([place]), Seizure Disorder Additional Past Medical History / Comment(s): DDD Last Myocardial Infarction Date:: aug 2018 History of Any Multi-Drug Resistant Organisms: None Reported Past Surgical History: Cholecystectomy, Joint Replacement, Orthopedic Surgery Additional Past Surgical History / Comment(s): bartholin gland cyst removal, stent placed Past Anesthesia/Blood Transfusion Reactions: No Reported Reaction Past Psychological History: Anxiety, Depression Smoking Status: Current some day smoker Past Alcohol Use History: Daily Past Drug Use History: Marijuana - Past Family History Mother Family Medical History: Cancer, Congestive Heart Failure (CHF), Coronary Artery Disease (CAD), Hyperlipidemia Father Family Medical History: Cancer, COPD General Exam - General Exam Comments Initial Comments: This is a well-developed sec appearing female who is awake alert oriented 3 she does have the smell of alcohol conjoiners on her breath Limitations: no limitations General appearance: alert, anxious Head exam: Present: atraumatic, normocephalic, normal inspection Eye exam: Present: normal appearance, PERRL, EOMI. Absent: scleral icterus, conjunctival injection, periorbital swelling ENT exam: Present: mucous membranes dry Neck exam: Present: normal inspection. Absent: tenderness, meningismus, lymphadenopathy Respiratory exam: Present: normal lung sounds bilaterally. Absent: respiratory distress, wheezes, rales, rhonchi, stridor Cardiovascular Exam: Present: regular rate, normal rhythm, normal heart sounds. Absent: systolic murmur, diastolic murmur, rubs, gallop, clicks GI/Abdominal exam: Present: soft, normal bowel sounds. Absent: distended, te nderness, guarding, rebound, rigid Extremities exam: Present: normal inspection, full ROM, normal capillary refill. Absent: tenderness, pedal edema, joint swelling, calf tenderness Back exam: Present: normal inspection, tenderness (Is palpation of left SI joint no step-off or crepitation no ecchymosis seen no tenderness to the rest of the pelvis or hips at this time.) Neurological exam: Present: alert, oriented X3, CN II-XII intact Psychiatric exam: Present: normal affect, normal mood Skin exam: Present: warm, dry, intact, normal color. Absent: rash Course Vital Signs 12/10/19 12/10/19 12:49 15:00 Temperature 98.3 F 98.2 F Pulse Rate 99 94 Respiratory 20 20 Rate Blood Pressure 179/113 153/93 O2 Sat by Pulse 99 98 Oximetry Medical Decision Making - Medical Decision Making Patient was reevaluated several occasions she is feeling much improved I did discuss the findings she would like to go home she can get a ride from her sister she is awake alert oriented 3 she is capable of making decisions though her alcohol level is elevated she is capable decision making capacity. She was encouraged not drink at all. She is to follow-up with her doctor and return when necessary. At this time it does not appear the patient does have a seizure disorder is no evidence of seizure activity at this time the left against was elevated this is on the basis of volume depletion no evidence of any infectious process. - Lab Data Result diagrams: 12/10/19 13:53 12/10/19 13:53 Lab Results 12/10/19 12/10/19 12/10/19 Range/Units 13:53 13:53 13:53 WBC 9.6 (3.8-10.6) k/uL RBC 4.87 (3.80-5.40) m/uL Hgb 12.9 (11.4-16.0) gm/dL Hct 42.1 (34.0-46.0) % MCV 86.5 (80.0-100.0) fL MCH 26.4 (25.0-35.0) pg MCHC 30.6 L (31.0-37.0) g/dL RDW 21.4 H (11.5-15.5) % Plt Count 287 (150-450) k/uL Neutrophils % 60 % Lymphocytes % 27 % Monocytes % 5 % Eosinophils % 2 % Basophils % 3 % Neutrophils # 5.7 (1.3-7.7) k/uL Lymphocytes # 2.6 (1.0-4.8) k/uL Monocytes # 0.5 (0-1.0) k/uL Eosinophils # 0.2 (0-0.7) k/uL Basophils # 0.3 H (0-0.2) k/uL Hypochromasia Slight Anisocytosis Moderate Microcytosis Slight PT (9.0-12.0) sec INR (<1.2) APTT (22.0-30.0) sec D-Dimer (<0.60) mg/L FEU Sodium 141 (137-145) mmol/L Potassium 4.0 (3.5-5.1) mmol/L Chloride 104 (98-107) mmol/L Carbon Dioxide 22 (22-30) mmol/L Anion Gap 15 mmol/L BUN 4 L (7-17) mg/dL Creatinine 0.48 L (0.52-1.04) mg/dL Est GFR (CKD-EPI)AfAm >90 (>60 ml/min/1.73 sqM) Est GFR (CKD-EPI)NonAf >90 (>60 ml/min/1.73 sqM) Glucose 93 (74-99) mg/dL Plasma Lactic Acid Camron 3.6 H* (0.7-2.0) mmol/L Calcium 8.8 (8.4-10.2) mg/dL Magnesium 1.9 (1.6-2.3) mg/dL Total Bilirubin 0.4 (0.2-1.3) mg/dL AST 183 H (14-36) U/L ALT 101 H (4-34) U/L Alkaline Phosphatase 190 H (38-126) U/L Ammonia 22 (<30) umol/L Creatine Kinase 36 (30-135) U/L Troponin I (0.000-0.034) ng/mL NT-Pro-B Natriuret Pep pg/mL Total Protein 7.4 (6.3-8.2) g/dL Albumin 4.1 (3.5-5.0) g/dL Urine Color Urine Appearance (Clear) Urine pH (5.0-8.0) Ur Specific [place] (1.001-1.035) Urine Protein (Negative) Urine Glucose (UA) (Negative) Urine Ketones (Negative) Urine Blood (Negative) Urine Nitrite (Negative) Urine Bilirubin (Negative) Urine Urobilinogen (<2.0) mg/dL Ur Leukocyte Esterase (Negative) Serum Alcohol 227 H* mg/dL 12/10/19 12/10/19 12/10/19 Range/Units 13:53 13:53 13:53 WBC (3.8-10.6) k/uL RBC (3.80-5.40) m/uL Hgb (11.4-16.0) gm/dL Hct (34.0-46.0) % MCV (80.0-100.0) fL MCH (25.0-35.0) pg MCHC (31.0-37.0) g/dL RDW (11.5-15.5) % Plt Count (150-450) k/uL Neutrophils % % Lymphocytes % % Monocytes % % Eosinophils % % Basophils % % Neutrophils # (1.3-7.7) k/uL Lymphocytes # (1.0-4.8) k/uL Monocytes # (0-1.0) k/uL Eosinophils # (0-0.7) k/uL Basophils # (0-0.2) k/uL Hypochromasia Anisocytosis Microcytosis PT 9.4 (9.0-12.0) sec INR 0.9 (<1.2) APTT 21.5 L (22.0-30.0) sec D-Dimer 0.67 H (<0.60) mg/L FEU Sodium (137-145) mmol/L Potassium (3.5-5.1) mmol/L Chloride (98-107) mmol/L Carbon Dioxide (22-30) mmol/L Anion Gap mmol/L BUN (7-17) mg/dL Creatinine (0.52-1.04) mg/dL Est GFR (CKD-EPI)AfAm (>60 ml/min/1.73 sqM) Est GFR (CKD-EPI)NonAf (>60 ml/min/1.73 sqM) Glucose (74-99) mg/dL Plasma Lactic Acid Camron (0.7-2.0) mmol/L Calcium (8.4-10.2) mg/dL Magnesium (1.6-2.3) mg/dL Total Bilirubin (0.2-1.3) mg/dL AST (14-36) U/L ALT (4-34) U/L Alkaline Phosphatase (38-126) U/L Ammonia (<30) umol/L Creatine Kinase (30-135) U/L Troponin I 0.017 (0.000-0.034) ng/mL NT-Pro-B Natriuret Pep pg/mL Total Protein (6.3-8.2) g/dL Albumin (3.5-5.0) g/dL Urine Color Light Yellow Urine Appearance Clear (Clear) Urine pH 6.0 (5.0-8.0) Ur Specific [place] 1.002 (1.001-1.035) Urine Protein Negative (Negative) Urine Glucose (UA) Negative (Negative) Urine Ketones Negative (Negative) Urine Blood Negative (Negative) Urine Nitrite Negative (Negative) Urine Bilirubin Negative (Negative) Urine Urobilinogen <2.0 (<2.0) mg/dL Ur Leukocyte Esterase Negative (Negative) Serum Alcohol mg/dL 12/10/19 Range/Units 13:53 WBC (3.8-10.6) k/uL RBC (3.80-5.40) m/uL Hgb (11.4-16.0) gm/dL Hct (34.0-46.0) % MCV (80.0-100.0) fL MCH (25.0-35.0) pg MCHC (31.0-37.0) g/dL RDW (11.5-15.5) % Plt Count (150-450) k/uL Neutrophils % % Lymphocytes % % Monocytes % % Eosinophils % % Basophils % % Neutrophils # (1.3-7.7) k/uL Lymphocytes # (1.0-4.8) k/uL Monocytes # (0-1.0) k/uL Eosinophils # (0-0.7) k/uL Basophils # (0-0.2) k/uL Hypochromasia Anisocytosis Microcytosis PT (9.0-12.0) sec INR (<1.2) APTT (22.0-30.0) sec D-Dimer (<0.60) mg/L FEU Sodium (137-145) mmol/L Potassium (3.5-5.1) mmol/L Chloride (98-107) mmol/L Carbon Dioxide (22-30) mmol/L Anion Gap mmol/L BUN (7-17) mg/dL Creatinine (0.52-1.04) mg/dL Est GFR (CKD-EPI)AfAm (>60 ml/min/1.73 sqM) Est GFR (CKD-EPI)NonAf (>60 ml/min/1.73 sqM) Glucose (74-99) mg/dL Plasma Lactic Acid [place] (0.7-2.0) mmol/L Calcium (8.4-10.2) mg/dL Magnesium (1.6-2.3) mg/dL Total Bilirubin (0.2-1.3) mg/dL AST (14-36) U/L ALT (4-34) U/L Alkaline Phosphatase (38-126) U/L Ammonia (<30) umol/L Creatine Kinase (30-135) U/L Troponin I (0.000-0.034) ng/mL NT-Pro-B Natriuret Pep 126 pg/mL Total Protein (6.3-8.2) g/dL Albumin (3.5-5.0) g/dL Urine Color Urine Appearance (Clear) Urine pH (5.0-8.0) Ur Specific [place] (1.001-1.035) Urine Protein (Negative) Urine Glucose (UA) (Negative) Urine Ketones (Negative) Urine Blood (Negative) Urine Nitrite (Negative) Urine Bilirubin (Negative) Urine Urobilinogen (<2.0) mg/dL Ur Leukocyte Esterase (Negative) Serum Alcohol mg/dL - EKG Data -: EKG Interpreted by Me EKG shows normal: sinus rhythm (EKG shows sinus rhythm rate of 100. Interval 1:30 QRS duration 86 QT since QTC 358/[address] and figure aeration in the anterior and anterolateral region prolonged QT this compares with an EKG dated 09/10/19) - Radiology Data Radiology results: report reviewed (I did review the imaging and reports no acute findings.), image reviewed Disposition Clinical Impression: Alcohol intoxication, Dehydration, Weakness Disposition: HOME SELF-CARE Condition: Good Is patient prescribed a controlled substance at d/c from ED?: No Referrals: Luis Ron MD [Primary Care Provider] - 1-2 days
[2019-12-10] MEDS ORDERED: SODIUM CHLORIDE 0.9% 1,000 ML with MVI, ADULT NO.4 WITH VIT K 10 ML, THIAMINE 100 MG, F... IV ONE ×4 (15:01)
--- NOTE | 2019-12-10 15:47 | XR ---
EXAMINATION TYPE: XR pelvis AP view DATE OF EXAM: 12/10/2019 CLINICAL HISTORY: Left-sided pelvic pain after fall TECHNIQUE: A single AP view of the pelvis is obtained. COMPARISON: None. FINDINGS: There is no acute fracture/dislocation evident in the pelvis. Sacroiliac joint sclerosis related to mild arthropathy. Mild degenerative changes are also seen of the lumbosacral junction. The hip and sacroiliac joints appear symmetric and unremarkable. The overlying soft tissue appears unre markable. IMPRESSION: There is no acute fracture or dislocation in the pelvis.
[2019-12-10 16:03] VITALS: TEMP 98.2
[2019-12-10 18:19] VITALS: BP 157/88; PULSE 87; RESP 20
== END 2019-12-10 18:18 | disposition home or self-care (01) ==
LOC: EC 12:39
DX: F10.129 Alcohol abuse with intoxication, unspecified (principal); E86.0 Dehydration; M79.605 Pain in left leg; F17.200 Nicotine dependence, unspecified, uncomplicated; J45.909 Unspecified asthma, uncomplicated; I25.2 Old myocardial infarction; Z86.69 Personal history of other diseases of the nervous system and sense organs; Z79.82 Long term (current) use of aspirin; Z88.7 Allergy status to serum and vaccine; Z88.5 Allergy status to narcotic agent; Z79.899 Other long term (current) drug therapy; Y90.9 Presence of alcohol in blood, level not specified
CPT/HCPCS: 36415; 93005; 85379; 83880; 80053; 82140; 82550; 83605; 83735; 84484; 85025; 85610; 85730; 81003; 72170; 71046; 70450; 99285; 96374; 96361 ×4; G0480; J3411; J1885; 80320

== ENCOUNTER 2020-05-20 16:51 | Observation (INO) | payer OTHER ==
[2020-05-20] MEDS ORDERED: HYDROmorphone 0.5 MG/0.5 ML SYRINGE IVP STA (17:02)
[2020-05-20] MEDS ORDERED: ONDANSETRON 4 MG/2 ML VIAL IVP STA (17:02)
[2020-05-20] MEDS ORDERED: SODIUM CHLORIDE 0.9% 500 ML 500 ML IV STA (17:02)
--- NOTE | 2020-05-20 17:08 | ED ---
SOB HPI - General Source: patient, EMS, RN notes reviewed Mode of arrival: EMS Limitations: no limitations <Alexsander Currie - Last Filed: 05/20/20 17:06> <Sonu James - Last Filed: 05/21/20 02:47> <Lesia Salas - Last Filed: 05/24/20 00:46> - General Chief Complaint: Shortness of Breath Stated Complaint: MARY ALICE Time Seen by Provider: 05/20/20 16:54 - History of Present Illness Initial Comments: This a 60-year-old female sent emergency Department chief complaint of shortness of breath. Patient presents emergency from via EMS which she did receive a DuoNeb treatment patient states that has helped some. She still complains of chest pain as squeezes her chest. Patient states that this has been going on for last 3-4 days. She is a daily smoker. Patient states that she also has some coronary artery disease. Patient does not that she's had a prior CVA in the past. Patient denies any known fever states that she's had chills and a productive cough with a large amount of sputum. Patient denies dizziness, blurred vision, diarrhea though she does admit to slight nausea. (Alexsander Currie) - Related Data Home Medications Medication Instructions Recorded Confirmed Aspirin EC [Ecotrin Low Dose] 81 mg PO DAILY 02/11/19 05/20/20 Isosorbide Mononitrate ER [Imdur] 30 mg PO DAILY 09/10/19 05/20/20 Pantoprazole [Protonix] 40 mg PO BID 09/10/19 05/20/20 Fluticasone Nasal [place] [Flonase 1 spr EA NOSTRIL DAILY 09/12/19 05/20/20 Nasal [place]] amLODIPine [Norvasc] 10 mg PO DAILY 12/10/19 05/20/20 Folic Acid 1 mg PO DAILY 05/20/20 05/20/20 Multivitamins, Thera [Multivitamin 1 tab PO DAILY 05/20/20 05/20/20 (formulary)] Allergies Allergy/AdvReac Type Severity Reaction Status Date / Time Influenza Virus Vaccines AdvReac Nausea & Verified 05/20/20 20:39 Vomiting morphine AdvReac Nausea & Verified 05/20/20 20:39 Vomiting Review of Systems ROS Other: All systems not noted in ROS Statement are negative. <Alexsander Currie - Last Filed: 05/20/20 17:06> ROS Other: All systems not noted in ROS Statement are negative. <Sonu James Sara - Last Filed: 05/21/20 02:47> ROS Other: All systems not noted in ROS Statement are negative. <Lesia Salas - Last Filed: 05/24/20 00:46> ROS Statement: Those systems with pertinent positive or pertinent negative responses have been documented in the HPI. Past Medical History Past Medical History: Asthma, CVA/TIA, Myocardial Infarction (ME), Seizure Disorder Additional Past Medical History / Comment(s): DDD Last Myocardial Infarction Date:: aug 2018 History of Any Multi-Drug Resistant Organisms: None Reported Past Surgical History: Cholecystectomy, Joint Replacement, Orthopedic Surgery Additional Past Surgical History / Comment(s): bartholin gland cyst removal, stent placed Past Anesthesia/Blood Transfusion Reactions: No Reported Reaction Past Psychological History: Anxiety, Depression Smoking Status: Current every day smoker Past Alcohol Use History: Daily, Occasional Past Drug Use History: Marijuana - Past Family History Mother Family Medical History: Cancer, Congestive Heart Failure (CHF), Coronary Artery Disease (CAD), Hyperlipidemia Father Family Medical History: Cancer, COPD <Alexsander Currie - Last Filed: 05/20/20 17:06> General Exam Limitations: no limitations General appearance: alert, in no apparent distress Head exam: Present: atraumatic, normocephalic, normal inspection Eye exam: Present: normal appearance, PERRL, EOMI. Absent: scleral icterus, conjunctival injection, periorbital swelling ENT exam: Present: normal exam, normal oropharynx, mucous membranes moist Neck exam: Present: normal inspection. Absent: tenderness, meningismus, lymphadenopathy Respiratory exam: Present: respiratory distress (Mild), wheezes. Absent: normal lung sounds bilaterally, rales, rhonchi, stridor Cardiovascular Exam: Present: normal rhythm, tachycardia, normal heart sounds. Absent: systolic murmur, diastolic murmur, rubs, gallop, clicks GI/Abdominal exam: Present: soft, normal bowel sounds. Absent: distended, tende rness, guarding, rebound, rigid Neurological exam: Present: alert, oriented X3, CN II-XII intact <Alexsander Currie - Last Filed: 05/20/20 17:06> Course Vital Signs 05/20/20 05/20/20 05/20/20 16:53 19:23 22:27 Temperature 98.6 F Pulse Rate 118 H 97 88 Respiratory 18 16 16 Rate Blood Pressure 136/99 117/82 124/81 O2 Sat by Pulse 97 100 99 Oximetry Medical Decision Making - Lab Data Result diagrams: 05/20/20 17:54 05/20/20 18:50 <Sonu James - Last Filed: 05/21/20 02:47> - Lab Data Result diagrams: 05/20/20 17:54 05/21/20 02:49 <Lesia Salas - Last Filed: 05/24/20 00:46> - Medical Decision Making I received patient during shift change sign out. Patient was complaining of substernal chest pains and shortness of breath. The symptoms have resolved. Laboratory investigations were obtained. CTA is negative for PE. Patient does have mild transaminitis. No abdominal pain or tenderness. Patient does report that she is a drinker believes that this is likely alcohol-related. Patient be admitted for serial troponins and further evaluation. Case discussed with Dr. Salas. (Sonu James) I was available for consultation in the emergency department. The history and physical exam were done by the midlevel provider. I was consulted for this patients care. I reviewed the case with the midlevel provider and based on their presentation of the patient, I agree with the assessment, medical decision making and plan of care as documented. Chart was dictated using [employer] dictation software. Attempts were made to correct any dictation errors however some typographical errors may persist. Patient was seen during a national state of emergency due to the Covid-19 pandemic. (Lesia Salas) - Lab Data Lab Results 05/20/20 05/20/20 05/20/20 Range/Units 17:54 17:54 17:54 WBC 11.3 H (3.8-10.6) k/uL RBC 3.52 L (3.80-5.40) m/uL Hgb 10.9 L (11.4-16.0) gm/dL Hct 34.0 (34.0-46.0) % MCV 96.5 (80.0-100.0) fL MCH 30.9 (25.0-35.0) pg MCHC 32.0 (31.0-37.0) g/dL RDW 18.6 H (11.5-15.5) % Plt Count 154 (150-450) k/uL Neutrophils % 80 % Lymphocytes % 14 % Monocytes % 4 % Eosinophils % 1 % Basophils % 1 % Neutrophils # 9.0 H (1.3-7.7) k/uL Lymphocytes # 1.6 (1.0-4.8) k/uL Monocytes # 0.4 (0-1.0) k/uL Eosinophils # 0.1 (0-0.7) k/uL Basophils # 0.1 (0-0.2) k/uL Hypochromasia Marked Anisocytosis Slight Macrocytosis Slight PT (9.0-12.0) sec INR (<1.2) APTT (22.0-30.0) sec D-Dimer (<0.60) mg/L FEU Sodium (137-145) mmol/L Potassium (3.5-5.1) mmol/L Chloride (98-107) mmol/L Carbon Dioxide (22-30) mmol/L Anion Gap mmol/L BUN (7-17) mg/dL Creatinine (0.52-1.04) mg/dL Est GFR (CKD-EPI)AfAm (>60 ml/min/1.73 sqM) Est GFR (CKD-EPI)NonAf (>60 ml/min/1.73 sqM) Glucose (74-99) mg/dL Lactic Ac Sepsis Rflx Plasma Lactic Acid Camron 2.7 H* (0.7-2.0) mmol/L Calcium (8.4-10.2) mg/dL Magnesium (1.6-2.3) mg/dL Total Bilirubin (0.2-1.3) mg/dL AST (14-36) U/L ALT (4-34) U/L Alkaline Phosphatase (38-126) U/L Troponin I <0.012 (0.000-0.034) ng/mL NT-Pro-B Natriuret Pep pg/mL Total Protein (6.3-8.2) g/dL Albumin (3.5-5.0) g/dL Lipase (23-300) U/L Coronavirus (PCR) (Not Detected) 05/20/20 05/20/20 05/20/20 Range/Units 17:54 18:22 18:50 WBC (3.8-10.6) k/uL RBC (3.80-5.40) m/uL Hgb (11.4-16.0) gm/dL Hct (34.0-46.0) % MCV (80.0-100.0) fL MCH (25.0-35.0) pg MCHC (31.0-37.0) g/dL RDW (11.5-15.5) % Plt Count (150-450) k/uL Neutrophils % % Lymphocytes % % Monocytes % % Eosinophils % % Basophils % % Neutrophils # (1.3-7.7) k/uL Lymphocytes # (1.0-4.8) k/uL Monocytes # (0-1.0) k/uL Eosinophils # (0-0.7) k/uL Basophils # (0-0.2) k/uL Hypochromasia Anisocytosis Macrocytosis PT 11.7 (9.0-12.0) sec INR 1.1 (<1.2) APTT 24.4 (22.0-30.0) sec D-Dimer 1.16 H (<0.60) mg/L FEU Sodium (137-145) mmol/L Potassium (3.5-5.1) mmol/L Chloride (98-107) mmol/L Carbon Dioxide (22-30) mmol/L Anion Gap mmol/L BUN (7-17) mg/dL Creatinine (0.52-1.04) mg/dL Est GFR (CKD-EPI)AfAm (>60 ml/min/1.73 sqM) Est GFR (CKD-EPI)NonAf (>60 ml/min/1.73 sqM) Glucose (74-99) mg/dL Lactic Ac Sepsis Rflx Y Plasma Lactic Acid Camron (0.7-2.0) mmol/L Calcium (8.4-10.2) mg/dL Magnesium (1.6-2.3) mg/dL Total Bilirubin (0.2-1.3) mg/dL AST (14-36) U/L ALT (4-34) U/L Alkaline Phosphatase (38-126) U/L Troponin I (0.000-0.034) ng/mL NT-Pro-B Natriuret Pep 816 pg/mL Total Protein (6.3-8.2) g/dL Albumin (3.5-5.0) g/dL Lipase (23-300) U/L Coronavirus (PCR) (Not Detected) 05/20/20 05/20/20 05/20/20 Range/Units 18:50 21:00 21:02 WBC (3.8-10.6) k/uL RBC (3.80-5.40) m/uL Hgb (11.4-16.0) gm/dL Hct (34.0-46.0) % MCV (80.0-100.0) fL MCH (25.0-35.0) pg MCHC (31.0-37.0) g/dL RDW (11.5-15.5) % Plt Count (150-450) k/uL Neutrophils % % Lymphocytes % % Monocytes % % Eosinophils % % Basophils % % Neutrophils # (1.3-7.7) k/uL Lymphocytes # (1.0-4.8) k/uL Monocytes # (0-1.0) k/uL Eosinophils # (0-0.7) k/uL Basophils # (0-0.2) k/uL Hypochromasia Anisocytosis Macrocytosis PT (9.0-12.0) sec INR (<1.2) APTT (22.0-30.0) sec D-Dimer (<0.60) mg/L FEU Sodium 130 L (137-145) mmol/L Potassium 3.2 L (3.5-5.1) mmol/L Chloride 96 L (98-107) mmol/L Carbon Dioxide 25 (22-30) mmol/L Anion Gap 9 mmol/L BUN 6 L (7-17) mg/dL Creatinine 0.59 (0.52-1.04) mg/dL Est GFR (CKD-EPI)AfAm >90 (>60 ml/min/1.73 sqM) Est GFR (CKD-EPI)NonAf >90 (>60 ml/min/1.73 sqM) Glucose 93 (74-99) mg/dL Lactic Ac Sepsis Rflx Plasma Lactic Acid Camron 1.9 (0.7-2.0) mmol/L Calcium 8.2 L (8.4-10.2) mg/dL Magnesium 1.7 (1.6-2.3) mg/dL Total Bilirubin 2.5 H (0.2-1.3) mg/dL AST 159 H (14-36) U/L ALT 39 H (4-34) U/L Alkaline Phosphatase 371 H (38-126) U/L Troponin I (0.000-0.034) ng/mL NT-Pro-B Natriuret Pep pg/mL Total Protein 6.2 L (6.3-8.2) g/dL Albumin 3.1 L (3.5-5.0) g/dL Lipase (23-300) U/L Coronavirus (PCR) Not Detected (Not Detected) 05/20/20 Range/Units 21:12 WBC (3.8-10.6) k/uL RBC (3.80-5.40) m/uL Hgb (11.4-16.0) gm/dL Hct (34.0-46.0) % MCV (80.0-100.0) fL MCH (25.0-35.0) pg MCHC (31.0-37.0) g/dL RDW (11.5-15.5) % Plt Count (150-450) k/uL Neutrophils % % Lymphocytes % % Monocytes % % Eosinophils % % Basophils % % Neutrophils # (1.3-7.7) k/uL Lymphocytes # (1.0-4.8) k/uL Monocytes # (0-1.0) k/uL Eosinophils # (0-0.7) k/uL Basophils # (0-0.2) k/uL Hypochromasia Anisocytosis Macrocytosis PT (9.0-12.0) sec INR (<1.2) APTT (22.0-30.0) sec D-Dimer (<0.60) mg/L FEU Sodium (137-145) mmol/L Potassium (3.5-5.1) mmol/L Chloride (98-107) mmol/L Carbon Dioxide (22-30) mmol/L Anion Gap mmol/L BUN (7-17) mg/dL Creatinine (0.52-1.04) mg/dL Est GFR (CKD-EPI)AfAm (>60 ml/min/1.73 sqM) Est GFR (CKD-EPI)NonAf (>60 ml/min/1.73 sqM) Glucose (74-99) mg/dL Lactic Ac Sepsis Rflx Plasma Lactic Acid Camron (0.7-2.0) mmol/L Calcium (8.4-10.2) mg/dL Magnesium (1.6-2.3) mg/dL Total Bilirubin (0.2-1.3) mg/dL AST (14-36) U/L ALT (4-34) U/L Alkaline Phosphatase (38-126) U/L Troponin I (0.000-0.034) ng/mL NT-Pro-B Natriuret Pep pg/mL Total Protein (6.3-8.2) g/dL Albumin (3.5-5.0) g/dL Lipase 73 (23-300) U/L Coronavirus (PCR) (Not Detected) Disposition <Alexsander Currie - Last Filed: 05/20/20 17:06> Is patient prescribed a controlled substance at d/c from ED?: No <Sonu James - Last Filed: 05/21/20 02:47> <Lesia Salas - Last Filed: 05/24/20 00:46> Clinical Impression: Chest pain, Shortness of breath, COPD (chronic obstructive pulmonary disease) Disposition: ADMITTED IP TO THIS HOSP Condition: Serious
--- NOTE | 2020-05-20 18:14 | XR ---
EXAMINATION TYPE: XR chest 2V DATE OF EXAM: 05/20/2020 COMPARISON: Chest x-ray December 10, 2019. HISTORY: Productive cough and difficulty in breathing. TECHNIQUE: Frontal and lateral views of the chest are obtained. FINDINGS: There is no focal air space opacity, pleural effusion, or pneumothorax seen. The cardiac silhouette size is upper limits of normal without gross chronic change aortic knob. The osseous str uctures remain intact. IMPRESSION: No acute cardiopulmonary process. No significant change from prior.
[2020-05-20 18:18] LABS: Anisocytosis Slight; Basophils # (A) 0.1 k/uL (0-0.2); Basophils % (A) 1 %; Eosinophils # (A) 0.1 k/uL (0-0.7); Eosinophils % (A) 1 %; HGB 10.9 gm/dL (11.4-16.0); Hypochromasia Marked; Lymphocytes # (A) 1.6 k/uL (1.0-4.8); Lymphocytes % (A) 14 %; MCH 30.9 pg (25.0-35.0); MCV 96.5 fL (80.0-100.0); Macrocytosis Slight; Mean Platelet Volume 9.4; Monocytes # (A) 0.4 k/uL (0-1.0); Monocytes % (A) 4 %; Neutrophils % (A) 80 %; Platelet Count 154 k/uL (150-450); RBC 3.52 m/uL (3.80-5.40); RDW 18.6 % (11.5-15.5); WBC 11.3 k/uL (3.8-10.6)
[2020-05-20 19:41] LABS: ALT 39 U/L (4-34); AST 159 U/L (14-36); African American GFR (CKD) >90 (>60 ml/min/1.73 sqM); Albumin 3.1 g/dL (3.5-5.0); Alkaline Phosphatase 371 U/L (38-126); Anion Gap 9 mmol/L; Blood Urea Nitrogen 6 mg/dL (7-17); Calcium 8.2 mg/dL (8.4-10.2); Carbon Dioxide 25 mmol/L (22-30); Chloride 96 mmol/L (98-107); Glucose 93 mg/dL (74-99); Magnesium 1.7 mg/dL (1.6-2.3); Non-African American GFR(CKD) >90 (>60 ml/min/1.73 sqM); Potassium 3.2 mmol/L (3.5-5.1); Sodium 130 mmol/L (137-145); Total Bilirubin 2.5 mg/dL (0.2-1.3); Total Protein 6.2 g/dL (6.3-8.2)
[2020-05-20 20:16] LABS: INR 1.1 (<1.2); Partial Thromboplastin Time 24.4 sec (22.0-30.0); Prothrombin Time 11.7 sec (9.0-12.0)
[2020-05-20 20:19] LABS: D-Dimer 1.16 mg/L FEU (<0.60)
--- NOTE | 2020-05-20 20:58 | CT ---
EXAMINATION TYPE: CT chest angio for PE DATE OF EXAM: 05/20/2020 COMPARISON: Chest x-ray earlier today. HISTORY: SOB CT DLP: 282.1 mGycm. Automated Exposure Control for Dose Reduction was Utilized. CONTRAST: CTA scan of the thorax is performed with IV Contrast, patient injected with 100 mL of Isovue 370, pul monary embolism protocol. MIP Images are created on CT scanner and reviewed. FINDINGS: LUNGS: Mild underlying emphysematous changes present. Dependent atelectasis bilateral lower lobes. No suspicious focal consolidation or groundglass opacity. No pleural effusion or pneumothorax is seen b ilaterally. Tracheobronchial tree is patent. No concerning nodules or masses. MEDIASTINUM: There is satisfactory enhancement of the pulmonary artery and its branches, there is no CT evidence for pulmonary embolism. Satisfactory opacification of aorta without aneurysm or dissecti on. 4 vessel origin from aortic arch which is normal variant. Thyroid nodules partially imaged. There are no greater than 1 cm hilar or mediastinal lymph nodes. No cardiomegaly or pericardial effusion is seen. Coronary artery calcification is present which is noted marked of underlying coronary arter y disease. OTHER: Partial visualization of prominent liver and spleen and fatty infiltration of liver. IMPRESSION: No CT evidence for acute pulmonary embolism. Mild emphysematous change without acute pulm onary process.
[2020-05-20] MEDS ORDERED: POTASSIUM CHLORIDE ER 20 MEQ TAB.ER PO STA ×2 (22:04→23:41)
[2020-05-20] MEDS ORDERED: NITROGLYCERIN SL TABS 0.4 MG TAB SUBLINGUAL PRN (22:16)
[2020-05-20] MEDS ORDERED: ALBUTEROL NEBULIZED 2.5 MG/3 ML INHALATION PRN (22:21)
[2020-05-20] MEDS ORDERED: THIAMINE 100 MG/ML 2 ML VIAL IM STA (22:25)
[2020-05-20] MEDS ORDERED: LORazepam 2 MG/ML INJ IV PRN ×3 (22:25)
[2020-05-21] MEDS ORDERED: ALBUTEROL NEBULIZED 2.5 MG/3 ML INHALATION SCH
[2020-05-21] MEDS ORDERED: Acetaminophen-Codeine 300-30mg TAB PO STA (00:20)
[2020-05-21 03:28] LABS: Cholesterol 187 mg/dL (<200); HDL Cholesterol 18 mg/dL (40-60); LDL Cholesterol,Calculated 137 mg/dL (0-99); Triglycerides 159 mg/dL (<150)
[2020-05-21 08:52] LABS: African American GFR (CKD) >90 (>60 ml/min/1.73 sqM); Anion Gap 5 mmol/L; Blood Urea Nitrogen 4 mg/dL (7-17); Calcium 6.6 mg/dL (8.4-10.2); Carbon Dioxide 24 mmol/L (22-30); Chloride 104 mmol/L (98-107); Glucose 84 mg/dL (74-99); Magnesium 1.5 mg/dL (1.6-2.3); Non-African American GFR(CKD) >90 (>60 ml/min/1.73 sqM); Potassium 2.8 mmol/L (3.5-5.1); Sodium 133 mmol/L (137-145)
[2020-05-21] MEDS ORDERED: Potassium Replacement Protocol 1 EACH MISC MISCELLANE PRN (08:56)
[2020-05-21] MEDS ORDERED: ASPIRIN 325 MG TAB PO SCH (09:00)
[2020-05-21] MEDS ORDERED: amLODIPine 10 MG TAB PO SCH (09:00)
[2020-05-21] MEDS: POTASSIUM CHLORIDE ER 20 MEQ TAB.ER PO SCH ×3 (09:09→15:12)
[2020-05-21] MEDS: MAGNESIUM SULFATE-D5W PMX 1 GM in DEXTROSE/WATER 1 100ML.BAG IVPB SCH ×2 (09:09→10:34)
[2020-05-21] MEDS: PANTOPRAZOLE 40 MG TABLET PO SCH ×2 (09:13→16:46)
[2020-05-21] MEDS ORDERED: ISOSORBIDE MONONITRATE ER 30 MG TAB.ER.24H PO SCH (09:15)
[2020-05-21] MEDS ORDERED: AMINOPHYLLINE 500 MG/20 ML VIAL IV PRN (09:15)
[2020-05-21] MEDS ORDERED: REGADENOSON 0.4 MG/5 ML SYRINGE IV ONE (09:15)
[2020-05-21] MEDS ORDERED: CAFFEINE CITRATE 60 MG/3 ML VIAL IV PRN (09:15)
--- NOTE | 2020-05-21 11:22 | P.HPIM ---
History of Present Illness H&P Date: 05/21/20 Chief Complaint: MARY ALICE HISTORY AND PHYSICAL AND DISCHARGE SUMMARY: This is a 60-year-old female patient of Dr. العلي/Ariadne with a past medical history of coronary artery disease, hypertension, seasonal ALLERGIES, gastroesophageal reflux disease, CVA lacunar infarct left anterior parietal lobe, cortical infarct, carotid endarterectomy, right lower extremity weakness secondary to lumbar radiculopathy, active tobacco use and dependence, daily alcohol use, daily marijuana use. 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 Echocardiogram reveals EF of 60-65% with moderate concentric left ventricular hypertrophy. She was also treated at that time for acute on chronic blood loss anemia secondary to alcoholic gastritis along with Brilinta and aspirin use. She was transfused 1 unit of packed red blood cells patient states that she has not seen Dr. Howard since that time and last saw PCP early this year. She states she has continues to drink a couple glasses of wine as well as a shot of whiskey daily. Her smoking is down to half a pack per day. Patient complains of shortness of breat h gradually worsening along with cough and sputum production. No fever or chills. She also complains of chest pain that was a squeezing type in her chest more to the upper chest and back area. She denies abdominal pain, nausea or vomiting. Patient does not follow with a pulmonary physician. Patient presented to [facility] emergency center for evaluation. She was afebrile, heart rate initially 118, blood pressure 136/99, pulse ox 97% on room air. WBC 11.3, hemoglobin 10.9, platelet count 154. Sodium 130, potassium 3.2, chloride 96, CO2 25, BUN 6 and creatinine 0.59. Bl ood sugar 93. Lactic acid 2.7, troponin negative on 3 draws. INR 1.1, d-dimer 1.16. ProBNP 816. Lipase 73. Elevated liver function tests with total bilirubin 2.5, AST 159, ALT 39, alkaline phosphatase 371. Triglycerides 159, cholesterol 187, LDL 137, HDL 18. CTA of the chest was negative for pulmonary embolism. Mild emphysematous change without acute pulmonary process. Chest x- ray shows no acute cardiac pulmonary process. No significant change from prior. Patient was provided nebulizer treatments without improvement of shortness of breath and continued to have chest pain. Patient placed on the cardiac stepdown unit and cardiology consult requested. Lexiscan stress test revealed no evidence of reversible ischemia. Echocardiogram reveals EF 55-60%, mild mitral regurgitation. Patient has been cleared by cardiology for discharge home. Patient discharged home in stable condition. Review of Systems Constitutional: No fever, no chills, no night sweats. No weight change. No weakness, fatigue or lethargy. No daytime sleepiness. EENT: No headache. No blurred vision or double vision, no loss of vision. No loss of Hearing, no ringing in the ears, no dizziness. No nasal drainage or congestion. No epistaxis. No sore throat. Lungs: Reports shortness of breath, Reportscough, Reports sputum production. Reports wheezing. Cardiovascular: Reports chest pain, no lower extremity edema. No palpitations. No paroxysmal nocturnal dyspnea. No orthopnea. No lightheadedness or dizziness. No syncopal episodes. Abdominal: No abdominal pain. No nausea, vomiting. No diarrhea. No constipation. No bloody or tarry stools.. No loss of appetite. Genitourinary: No dysuria, increased frequency, urgency. No urinary retention. Musculoskeletal: No myalgias. No muscle weakness, no gait dysfunction, no frequent falls. No back pain. No neck pain. Integumentary: No wounds, no lesions. No rash or pruritus. No unusual bruising. No change in hair or nails. Neurologic: No aphasia. No facial droop. No change in mentation. No head injury. No headache. No paralysis. No paresthesia. Psychiatric: No depression. No anxiety. No mood swings. Endocrine: No abnormal blood sugars. No weight change. No excessive sweating or thirst. No cold intolerance. Physical Examination Gen: This is a 60-year-old female. Patient is resting in bed and appears to be comfortable. HEENT: Head is atraumatic, normocephalic. Pupils equal, round. Sclerae is anicteric. NECK: Supple. No JVD. No lymphadenopathy. No thyromegaly. LUNGS: Clear to auscultation. No wheezes or rhonchi. No intercostal retractions. HEART: Regular rate and rhythm. No murmur. ABDOMEN: Soft. Bowel sounds are present. No masses. No tenderness. EXTREMITIES: No pedal edema. No calf tenderness. NEUROLOGICAL: Patient is awake, alert and oriented x3. Cranial nerves 2 through 12 are grossly intact. Assessment and Plan 1. Mild COPD exacerbation, stable. Excuse a Ventolin inhaler every 4 hours as needed. 2. Chest pain. Consult with cardiology. Stress test and echocardiogram ordered for today. 3. History of coronary artery disease. 4. Hypokalemia status post replacement. 5. Alcoholic liver disease with elevated liver function tests, chronic. Patient counseled regarding alcohol cessation. Patient is on the CIWA protocol. Continue thiamine. 6. Hypertension. Continue amlodipine 5 mg daily. 7. Gastroesophageal reflux disease. Continue Protonix. 8. History of acute GI bleed secondary to alcohol gastritis along with Brilinta and aspirin use, stable. 9. History of CVA and left internal carotid artery stenting for critical stenosis in July 2019, stable. 10. Tobacco use and dependence. Smoking cessation discussed with patient. 11. Marijuana use daily. 12. COVID-19 infection not present. Patient placed as an observation status. Discharge plan: Return home Impression and plan of care have been directed as dictated by the signing physician. Gladis Vieyra nurse practitioner acting as scribe for signing physician. Past Medical History Past Medical History: Asthma, Coronary Artery Disease (CAD), CVA/TIA, Myocardial Infarction ([place]), Seizure Disorder Additional Past Medical History / Comment(s): DDD, CVA 06/2019, pt. states they have a blockage in their heart Last Myocardial Infarction Date:: aug 2018 History of Any Multi-Drug Resistant Organisms: None Reported Past Surgical History: Cholecystectomy, Heart Catheterization, Joint Replacement, Orthopedic Surgery Additional Past Surgical History / Comment(s): bartholin gland cyst removal, stent placed Past Anesthesia/Blood Transfusion Reactions: No Reported Reaction Past Psychological History: Anxiety, Depression Smoking Status: Current every day smoker Past Alcohol Use History: Daily, Occasional Additional Past Alcohol Use History / Comment(s): Patient is an active smoker since age 18 currently cut back to half a pack per day. She uses marijuana on a daily basis. She is also has history of alcohol abuse and reports that she is drinking couple glasses of wine and a shot of whiskey every day. She denies any street drug use. She uses a walker at home and is currently on disability. Past Drug Use History: Marijuana - Past Family History Mother Family Medical History: Cancer, Congestive Heart Failure (CHF), Coronary Artery Disease (CAD), Hyperlipidemia Additional Family Medical History / Comment(s): Mother at age 85 from lung cancer. Father Family Medical History: Cancer, COPD Additional Family Medical History / Comment(s): Father at age 63 from lung cancer. Brother(s) Additional Family Medical History / Comment(s): Patient has a total of 7 siblings. 5 are alive without any major medical problems she is aware of. 2 s iblings have one from alcohol abuse and 1. Coronary artery disease. Daughter(s) Additional Family Medical History / Comment(s): Patient has one daughter with no major medical problems. Medications and Allergies Home Medications Medication Instructions Recorded Confirmed Type Aspirin EC [Ecotrin Low Dose] 81 mg PO DAILY 02/11/19 05/20/20 History Isosorbide Mononitrate ER [Imdur] 30 mg PO DAILY 09/10/19 05/20/20 History Pantoprazole [Protonix] 40 mg PO BID 09/10/19 05/20/20 History Fluticasone Nasal [place] [Flonase 1 spr EA NOSTRIL DAILY 09/12/19 05/20/20 History Nasal [place]] amLODIPine [Norvasc] 10 mg PO DAILY 12/10/19 05/20/20 History Folic Acid 1 mg PO DAILY 05/20/20 05/20/20 History Multivitamins, Thera [Multivitamin 1 tab PO DAILY 05/20/20 05/20/20 History (formulary)] Allergies Allergy/AdvReac Type Severity Reaction Status Date / Time Influenza Virus Vaccines AdvReac Nausea & Verified 05/20/20 20:39 Vomiting morphine AdvReac Nausea & Verified 05/20/20 20:39 Vomiting Physical Exam Vitals: Vital Signs Temp Pulse Pulse Resp BP BP Pulse Ox 05/21/20 08:00 76 16 05/21/20 07:50 97.7 F 76 16 108/66 100 05/21/20 04:00 97.9 F 76 20 113/79 100 05/21/20 00:00 97.6 F 84 22 130/83 100 05/20/20 22:27 88 16 124/81 99 05/20/20 19:23 97 16 117/82 100 05/20/20 16:53 98.6 F 118 H 18 136/99 97 Intake and Output 05/20/20 05/21/20 05/21/20 22:59 06:59 14:59 Intake Total 240 Balance 240 Intake: Oral 240 Other: # Voids 2 Weight 66.633 kg 64.7 kg Results CBC & Chem 7: 05/20/20 17:54 05/21/20 02:49 Labs: Abnormal Lab Results - Last 24 Hours (Table) 05/20/20 05/20/20 05/20/20 Range/Units 17:54 17:54 18:50 WBC 11.3 H (3.8-10.6) k/uL RBC 3.52 L (3.80-5.40) m/uL Hgb 10.9 L (11.4-16.0) gm/dL RDW 18.6 H (11.5-15.5) % Neutrophils # 9.0 H (1.3-7.7) k/uL D-Dimer 1.16 H (<0.60) mg/L FEU Sodium (137-145) mmol/L Potassium (3.5-5.1) mmol/L Chloride (98-107) mmol/L BUN (7-17) mg/dL Creatinine (0.52-1.04) mg/dL Plasma Lactic Acid Camron 2.7 H* (0.7-2.0) mmol/L Calcium (8.4-10.2) mg/dL Magnesium (1.6-2.3) mg/dL Total Bilirubin (0.2-1.3) mg/dL AST (14-36) U/L ALT (4-34) U/L Alkaline Phosphatase (38-126) U/L Total Protein (6.3-8.2) g/dL Albumin (3.5-5.0) g/dL Triglycerides (<150) mg/dL LDL Cholesterol, Calc (0-99) mg/dL HDL Cholesterol (40-60) mg/dL 05/20/20 05/21/20 05/21/20 Range/Units 18:50 02:49 02:49 WBC (3.8-10.6) k/uL RBC (3.80-5.40) m/uL Hgb (11.4-16.0) gm/dL RDW (11.5-15.5) % Neutrophils # (1.3-7.7) k/uL D-Dimer (<0.60) mg/L FEU Sodium 130 L 133 L (137-145) mmol/L Potassium 3.2 L 2.8 L (3.5-5.1) mmol/L Chloride 96 L (98-107) mmol/L BUN 6 L 4 L (7-17) mg/dL Creatinine 0.49 L (0.52-1.04) mg/dL Plasma Lactic Acid Camron (0.7-2.0) mmol/L Calcium 8.2 L 6.6 L (8.4-10.2) mg/dL Magnesium 1.5 L (1.6-2.3) mg/dL Total Bilirubin 2.5 H (0.2-1.3) mg/dL AST 159 H (14-36) U/L ALT 39 H (4-34) U/L Alkaline Phosphatase 371 H (38-126) U/L Total Protein 6.2 L (6.3-8.2) g/dL Albumin 3.1 L (3.5-5.0) g/dL Triglycerides 159 H (<150) mg/dL LDL Cholesterol, Calc 137 H (0-99) mg/dL HDL Cholesterol 18 L (40-60) mg/dL Thrombosis Risk Factor Assmnt - Choose All That Apply Each Factor Represents 1 point: Abnormal pulmonary function (COPD), Age 41-60 years Thrombosis Risk Factor Assessment Total Risk Factor Score: 2 Thrombosis Risk Factor Assessment Level: Low Risk
--- NOTE | 2020-05-21 11:44 | P.CRDCN ---
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 She presents to the hospital on this occasion with symptoms of shortness of breath with associated chest tightness, she feels like a tightness goes around the entire chest into her back. Chest x- ray on admission did not show any acute process, CTA the chest negative for pulmonary embolism. EKG on arrival here showed a normal sinus rhythm with some ST depression noted in the anterior leads. Blood pressure 108/66, heart rate in the 70s, temperature 97.7, 100% on 2 L of oxygen. White blood cell count 11.3, hemoglobin 10.9, platelet count 154. D-dimer 1.16. Sodium 1:30, potas sium 3.2, chloride 96, CO2 25, BUN 6, creatinine 0.5. AST 159 ALT 39 alk phos 371. Troponins were negative 3. Cholesterol 187, triglycerides 159, LDL 137 and HDL 18. At the time of my examination this morning, patient was still complaining of some mild discomfort in her back area. Breathing was overall stable. I did have a discussion with her regarding the importance of EtOH cessation. Patient has been advised to undergo a Lexiscan stress test today. Past Medical History Past Medical History: Asthma, Coronary Artery Disease (CAD), CVA/TIA, Myocardial Infarction ([place]), Seizure Disorder Additional Past Medical History / Comment(s): DDD, CVA 06/2019, pt. states they have a blockage in their heart Last Myocardial Infarction Date:: aug 2018 History of Any Multi-Drug Resistant Organisms: None Reported Past Surgical History: Cholecystectomy, Heart Catheterization, Joint Replacement, Orthopedic Surgery Additional Past Surgical History / Comment(s): bartholin gland cyst removal, stent placed Past Anesthesia/Blood Transfusion Reactions: No Reported Reaction Past Psychological History: Anxiety, Depression Smoking Status: Current every day smoker Past Alcohol Use History: Daily, Occasional Additional Past Alcohol Use History / Comment(s): Patient is an active smoker since age 18 currently cut back to half a pack per day. She uses marijuana on a daily basis. She is also has history of alcohol abuse and reports that she is drinking couple glasses of wine and a shot of whiskey every day. She denies any street drug use. She uses a walker at home and is currently on disability. Past Drug Use History: Marijuana - Past Family History Mother Family Medical History: Cancer, Congestive Heart Failure (CHF), Coronary Artery Disease (CAD), Hyperlipidemia Additional Family Medical History / Comment(s): Mother at age 85 from lung cancer. Father Family Medical History: Cancer, COPD Additional Family Medical History / Comment(s): Father at age 63 from lung cancer. Brother(s) Additional Family Medical History / Comment(s): Patient has a total of 7 siblings. 5 are alive without any major medical problems she is aware of. 2 siblings have one from alcohol abuse and 1. Coronary artery disease. Daughter(s) Additional Family Medical History / Comment(s): Patient has one daughter with no major medical problems. Medications and Allergies Home Medications Medication Instructions Recorded Confirmed Type Aspirin EC [Ecotrin Low Dose] 81 mg PO DAILY 02/11/19 05/20/20 History Isosorbide Mononitrate ER [Imdur] 30 mg PO DAILY 09/10/19 05/20/20 History Pantoprazole [Protonix] 40 mg PO BID 09/10/19 05/20/20 History Fluticasone Nasal [place] [Flonase 1 spr EA NOSTRIL DAILY 09/12/19 05/20/20 History Nasal [place]] amLODIPine [Norvasc] 10 mg PO DAILY 12/10/19 05/20/20 History Folic Acid 1 mg PO DAILY 05/20/20 05/20/20 History Multivitamins, Thera [Multivitamin 1 tab PO DAILY 05/20/20 05/20/20 History (formulary)] Allergies Allergy/AdvReac Type Severity Reaction Status Date / Time Influenza Virus Vaccines AdvReac Nausea & Verified 05/20/20 20:39 Vomiting morphine AdvReac Nausea & Verified 05/20/20 20:39 Vomiting Physical Exam Vitals: Vital Signs Temp Pulse Pulse Resp BP BP Pulse Ox 05/21/20 08:00 76 16 05/21/20 07:50 97.7 F 76 16 108/66 100 07/10/20 04:00 97.9 F 76 20 113/79 100 05/21/20 00:00 97.6 F 84 22 130/83 100 05/20/20 22:27 88 16 124/81 99 05/20/20 19:23 97 16 117/82 100 05/20/20 16:53 98.6 F 118 H 18 136/99 97 Intake and Output 05/20/20 05/21/20 05/21/20 22:59 06:59 14:59 Intake Total 240 Balance 240 Intake: Oral 240 Other: # Voids 2 Weight 66.633 kg 64.7 kg Gen: This is a 60-year-old female. Patient is resting in bed and appears to be comfortable. HEENT: Head is atraumatic, normocephalic. Pupils equal, round. Sclerae is anicteric. NECK: Supple. No JVD. No lymphadenopathy. No thyromegaly. LUNGS: Clear to auscultation. No wheezes or rhonchi. No intercostal retractions. HEART: Regular rate and rhythm. No murmur. ABDOMEN: Soft. Bowel sounds are present. No masses. Positive right upper quadrant tenderness on palpation . EXTREMITIES: No pedal edema. No calf tenderness. NEUROLOGICAL: Patient is awake, alert and oriented x3. Cranial nerves 2 through 12 are grossly intact. Results 05/20/20 17:54 05/21/20 02:49 Cardiac Enzymes 05/20/20 05/20/20 05/20/20 Range/Units 17:54 18:50 23:15 AST 159 H (14-36) U/L Troponin I <0.012 <0.012 (0.000-0.034) ng/mL 05/21/20 Range/Units 02:49 AST (14-36) U/L Troponin I <0.012 (0.000-0.034) ng/mL Coagulation 05/20/20 Range/Units 18:50 PT 11.7 (9.0-12.0) sec APTT 24.4 (22.0-30.0) sec Lipids 05/21/20 Range/Units 02:49 Triglycerides 159 H (<150) mg/dL Cholesterol 187 (<200) mg/dL HDL Cholesterol 18 L (40-60) mg/dL CBC 05/20/20 Range/Units 17:54 WBC 11.3 H (3.8-10.6) k/uL RBC 3.52 L (3.80-5.40) m/uL Hgb 10.9 L (11.4-16.0) gm/dL Hct 34.0 (34.0-46.0) % Plt Count 154 (150-450) k/uL Comprehensive Metabolic Panel 05/20/20 05/21/20 Range/Units 18:50 02:49 Sodium 130 L 133 L (137-145) mmol/L Potassium 3.2 L 2.8 L (3.5-5.1) mmol/L Chloride 96 L 104 (98-107) mmol/L Carbon Dioxide 25 24 (22-30) mmol/L BUN 6 L 4 L (7-17) mg/dL Creatinine 0.59 0.49 L (0.52-1.04) mg/dL Glucose 93 84 (74-99) mg/dL Calcium 8.2 L 6.6 L (8.4-10.2) mg/dL AST 159 H (14-36) U/L ALT 39 H (4-34) U/L Alkaline Phosphatase 371 H (38-126) U/L Total Protein 6.2 L (6.3-8.2) g/dL Albumin 3.1 L (3.5-5.0) g/dL Current Medications Generic Name Dose Route Start Last Admin Trade Name Freq PRN Reason Stop Dose Admin Albuterol Sulfate 2.5 mg 05/20/20 22:21 Ventolin Nebulized INHALATION Q4HR PRN Shortness Of Breath Or Wheezing Aminophylline 100 mg 05/21/20 09:15 Aminophylline IV 06/20/20 09:16 ONCE PRN Patient Response Amlodipine Besylate 10 mg 05/21/20 09:00 05/21/20 09:13 Norvasc PO 10 mg DAILY MAGY Administration Aspirin 81 mg 05/22/20 09:00 Aspirin PO DAILY MAGY Caffeine Citrate 60 mg 05/21/20 09:15 Cafcit Inj IV 06/20/20 09:16 ONCE PRN Patient Response Magnesium Sulfate/Dextrose 1 100 mls @ 100 mls/hr 05/21/20 10:00 05/21/20 10:34 gm/ IV Solution IVPB 05/21/20 11:59 100 mls/hr Q1H MAGY Administration Isosorbide Mononitrate 30 mg 05/21/20 09:15 05/21/20 09:13 Imdur PO 30 mg DAILY MAGY Administration Lorazepam 1 mg 05/20/20 22:25 Ativan IV Q2HR PRN CIWA 8 or 9 Lorazepam 1 mg 05/20/20 22:25 Ativan IV Q1HR PRN CIWA 10 to 15 Lorazepam 2 mg 05/20/20 22:25 Ativan IV 05/22/20 22:25 Q10M PRN CIWA 16 or higher Miscellaneous Information 1 each 05/21/20 08:56 Potassium Per Protocol MISCELLANE DAILY PRN Per Protocol Protocol Nitroglycerin 0.4 mg 05/20/20 22:16 05/21/20 00:06 Nitrostat SUBLINGUAL 0.4 mg Q5M PRN Administration Chest Pain Pantoprazole Sodium 40 mg 05/21/20 09:15 05/21/20 09:13 Protonix PO 40 mg AC-BID MAGY Administration Potassium Chloride 40 meq 05/21/20 12:00 K-Dur 20 PO 05/21/20 14:01 Q2HR MAGY Thiamine HCl 100 mg 05/21/20 17:30 Vitamin B-1 PO BID-W/MEALS MAGY Intake and Output 05/20/20 05/21/20 05/21/20 22:59 06:59 14:59 Intake Total 240 Balance 240 Intake: Oral 240 Other: # Voids 2 Weight 66.633 kg 64.7 kg 05/20/20 17:54 05/21/20 02:49 EKG Interpretations (text) EKG shows normal sinus rhythm with ST depression noted in the anterior leads. Assessment and Plan Plan: Assessment and plan #1 symptoms of chest tightness with associated shortness of breath. Troponins negative 3. EKG shows normal sinus rhythm with ST depression noted in the anterior leads. 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 #3 EtOH abuse #4 hypertension #5 hyperlipidemia #6 asthma #7 COPD #8 prior CVA #9 history of carotid stenting #10 nicotine dependence #11 marijuana use Plan We will order an echocardiogram with Doppler study. Patient has also been advised to undergo a Lexiscan stress test today. Further recommendations will be based on these findings and patient's overall clinical course. DNP note has been reviewed, I agree with a documented findings and plan of care. Patient was seen and examined.
--- NOTE | 2020-05-21 11:57 | ECHOF ---
Referral Reason:chest pain MEASUREMENTS -------- HEIGHT: 157.5 cm WEIGHT: 64.4 kg BP: 108/66 RVIDd: 2.4 cm (< 3.3) IVSd: 1.3 cm (0.6 - 1.1) LVIDd: 4.0 cm (3.9 - 5.3) LVPWd: 1.3 cm (0.6 - 1.1) IVSs: 1.8 cm LVIDs: 2.7 cm LVPWs: 1.5 cm LA Diam: 3.0 cm (2.7 - 3.8) LAESV Index (A-L): 17.66 ml/m Ao Diam: 2.9 cm (2.0 - 3.7) AV Cusp: 1.6 cm (1.5 - 2.6) MV EXCURSION: 18.525 mm (> 18.000) MV EF SLOPE: 76 mm/s (70 - 150) EPSS: 0.5 cm MV E Rodrigo: 0.87 m/s MV DecT: 219 ms MV A Rodrigo: 0.71 m/s MV E/A Ratio: 1.24 FINDINGS -------- Sinus rhythm. This was a technically adequate study. The left ventricular size is normal. There is mild concentric left ventricular hypertrophy. Overa ll left ventricular systolic function is normal with, an EF between 55 - 60 %. The right ventricle is normal in size. Normal LA size by volume 22+/-6 ml/m2. The right atrial size is normal. Interatrial and interventricular septum intact. The aortic valve is trileaflet, and appears structurally normal. No aortic stenosis or regurgitation. The mitral valve is normal. Mild mitral regurgitation is present. The tricuspid valve appears structurally normal. Trace/mild (physiologic) pulmonic regurgitation. The aortic root size is normal. Normal inferior vena cava with normal inspiratory collapse consistent with estimated right atrial pre ssure of 5 mmHg. Echo free space may represent effusion or a pericardial fat pad. CONCLUSIONS -------- 1. There is mild concentric left ventricular hypertrophy. 2. Overall left ventricular systolic function is normal with, an EF between 55 - 60 %. 3. Normal LA size by volume 22+/-6 ml/m2. 4. The aortic valve is trileaflet, and appears structurally normal. No aortic stenosis or regurgitati on. 5. Mild mitral regurgitation is present. 6. The tricuspid valve appears structurally normal. 7. Trace/mild (physiologic) pulmonic regurgitation. 8. Echo free space may represent effusion or a pericardial fat pad. CLOUD SYSTEMS ADMINISTRATOR: Poppy Valenzuela RDCS
[2020-05-21 12:14] VITALS: RESP 18; TEMP 97.9
--- NOTE | 2020-05-21 13:07 | EST ---
EXERCISE STRESS AGE: 60 SEX: F HT: 62" WT: 142 PROTOCOL: Lexiscan Cardiolite HEART RATE REST: 69 BLOOD PRESSURE REST: 111/73 MAXIMUM HEART RATE ACHIEVED: 102 MAXIMUM BLOOD PRESSURE: 111/73 85% MPHR: 137 100% MPHR: 161 CLINICAL INFORMATION: Baseline rhythm is a sinus mechanism, rate of 69, normal axis and intervals, nonspecific ST-T wave changes. Baseline blood pressure 111/73 mmHg. Patient received injection of Lexiscan. Electrocardiograph monitoring revealed no evidence of diagnostic ischemic ST deviation. Cardiolite was injected per protocol. CONCLUSION: 1. Nondiagnostic electrocardiograph stress testing. 2. Nuclear images will be reported separately. MMODL / IJN: [id number] /
--- NOTE | 2020-05-21 15:13 | NM ---
EXAMINATION TYPE: NM stress lexiscan cardiolite DATE OF EXAM: 05/21/2020 COMPARISON: NONE HISTORY: Chest pain TECHNIQUE: After the intravenous administration of 10.18 mCi Tc 99m Sestamibi - Cardiolite resting S PECT images acquired 90 minutes post injection. The patient received 0.4mg Lexiscan, 24.3 mCi Tc 99m Sestamibi - Stress images obtained 180 minutes p ost injection FINDINGS: Review of stress and rest SPECT images demonstrates no distinct perfusion abnormality. Gated analysi s shows normal wall motion with an estimated left ventricular ejection fraction of 51 %. IMPRESSION: No scintigraphic evidence for reversible ischemia.
[2020-05-21 15:19] VITALS: BP 132/73; PULSE 96
[2020-05-21] MEDS ORDERED: THIAMINE 100 MG TAB PO SCH (17:30)
[2020-05-22] MEDS ORDERED: ASPIRIN 81 MG PO SCH (09:00)
== END 2020-05-21 17:53 | disposition home or self-care (01) ==
LOC: EC 16:51 → 3SCARD 22:15
PROVIDERS: ADMIT Internal Medicine Geriatric Medicine; ATTEND Internal Medicine Geriatric Medicine
DX: J44.1 Chronic obstructive pulmonary disease with (acute) exacerbation (principal); R07.89 Other chest pain; E87.6 Hypokalemia; I11.9 Hypertensive heart disease without heart failure; I25.10 Atherosclerotic heart disease of native coronary artery without angina pectoris; F10.10 Alcohol abuse, uncomplicated; K70.9 Alcoholic liver disease, unspecified; I34.0 Nonrheumatic mitral (valve) insufficiency; F17.210 Nicotine dependence, cigarettes, uncomplicated; Z20.828 Contact with and (suspected) exposure to other viral communicable diseases; G40.909 Epilepsy, unspecified, not intractable, without status epilepticus; F41.9 Anxiety disorder, unspecified; F32.9 Major depressive disorder, single episode, unspecified; K21.9 Gastro-esophageal reflux disease without esophagitis; F12.90 Cannabis use, unspecified, uncomplicated; R53.1 Weakness; M54.16 Radiculopathy, lumbar region; J30.2 Other seasonal allergic rhinitis; Z79.82 Long term (current) use of aspirin; Z79.899 Other long term (current) drug therapy; Z88.5 Allergy status to narcotic agent; Z88.7 Allergy status to serum and vaccine; Z86.73 Personal history of transient ischemic attack (TIA), and cerebral infarction without residual deficits; I25.2 Old myocardial infarction; Z90.49 Acquired absence of other specified parts of digestive tract; Z96.60 Presence of unspecified orthopedic joint implant; Z87.19 Personal history of other diseases of the digestive system; Z87.42 Personal history of other diseases of the female genital tract; Z95.828 Presence of other vascular implants and grafts; Z82.49 Family history of ischemic heart disease and other diseases of the circulatory system; Z82.5 Family history of asthma and other chronic lower respiratory diseases; Z83.49 Family history of other endocrine, nutritional and metabolic diseases; Z80.1 Family history of malignant neoplasm of trachea, bronchus and lung
CPT/HCPCS: 96361 ×2; 96366; 96367; 93005 ×3; 96365; 96375; 99285; 36415; 93017; 93306; 85379; 83880; 80061; 80053; 80048; 83605; 83690; 83735 ×2; 84484 ×2; 85025; 85610; 85730; 71046; 71275; 78452; G0378 ×2; U0003; A9500; J3411; J2405; J0696; J3475; J2785; J1170; Q9967

== ENCOUNTER 2020-07-19 17:02 | Inpatient (IN) | payer OTHER ==
[2020-07-19] MEDS ORDERED: SODIUM CHLORIDE 0.9% 500 ML 500 ML IV STA (17:40)
--- NOTE | 2020-07-19 17:57 | ED ---
General Adult HPI - General Chief complaint: Weakness Stated complaint: Dehydration Time Seen by Provider: 07/19/20 17:06 Source: patient, RN notes reviewed, old records reviewed Mode of arrival: EMS Limitations: no limitations - History of Present Illness Initial comments: 60-year-old female patient presents ED for evaluation of multiple complaints. Patient reports that she has difficulty swallowing foods and liquids. Reports that feels it stuck in her esophagus. Patient was has been ongoing for months. Patient also reports generalized weakness. Denies any chest pain. Patient worse her abdomen is bloated. Neither any other acute complaints. Systemic: Pt denies fatigue, fever/chills, rash. Pt denies weakness, night sweats, weight loss. Neuro: Pt denies headache, visual disturbances, syncope or pre-syncope. HEENT: Pt denies ocular discharge or irritation, otalgia, rhinorrhea, pharyngitis or notable lymphadenopathy. Cardiopulmonary: Pt denies chest pain, SOB, heart palpitations, dyspnea on exertion. Abdominal/GI: Pt denies abdominal pain, n/v/d. : Pt denies dysuria, burning w/ urination, frequency/urgency. Denies new onset urinary or bowel incontinence. MSK: Pt denies myalgia, loss of strength or function in extremities. Neuro: Pt denies new paresthesias. - Related Data Home Medications Medication Instructions Recorded Confirmed Aspirin EC [Ecotrin Low Dose] 81 mg PO DAILY 02/11/19 05/20/20 Isosorbide Mononitrate ER [Imdur] 30 mg PO DAILY 09/10/19 05/20/20 Pantoprazole [Protonix] 40 mg PO BID 09/10/19 05/20/20 Fluticasone Nasal [place] [Flonase 1 spr EA NOSTRIL DAILY 09/12/19 05/20/20 Nasal [place]] amLODIPine [Norvasc] 10 mg PO DAILY 12/10/19 05/20/20 Folic Acid 1 mg PO DAILY 05/20/20 05/20/20 Multivitamins, Thera [Multivitamin 1 tab PO DAILY 05/20/20 05/20/20 (formulary)] Allergies Allergy/AdvReac Type Severity Reaction Status Date / Time Influenza Virus Vaccines AdvReac Nausea & Verified 07/19/20 17:05 Vomiting morphine AdvReac Nausea & Verified 07/19/20 17:05 Vomiting Review of Systems ROS Statement: Those systems with pertinent positive or pertinent negative responses have been documented in the HPI. ROS Other: All systems not noted in ROS Statement are negative. Past Medical History Past Medical History: Asthma, Coronary Artery Disease (CAD), CVA/TIA, Myocardial Infarction ([place]), Seizure Disorder Additional Past Medical History / Comment(s): DDD, CVA 06/2019, pt. states they have a blockage in their heart Last Myocardial Infarction Date:: aug 2018 History of Any Multi-Drug Resistant Organisms: None Reported Past Surgical History: Cholecystectomy, Heart Catheterization, Joint Replacement, Orthopedic Surgery Additional Past Surgical History / Comment(s): bartholin gland cyst removal, stent placed Past Anesthesia/Blood Transfusion Reactions: No Reported Reaction Past Psychological History: Anxiety, Depression Smoking Status: Former smoker Past Alcohol Use History: None Reported, Daily, Occasional Past Drug Use History: Marijuana - Past Family History Mother Family Medical History: Cancer, Congestive Heart Failure (CHF), Coronary Artery Disease (CAD), Hyperlipidemia Additional Family Medical History / Comment(s): Mother at age 85 from lung cancer. Father Family Medical History: Cancer, COPD Additional Family Medical History / Comment(s): Father at age 63 from lung cancer. Brother(s) Additional Family Medical History / Comment(s): Patient has a total of 7 siblings. 5 are alive without any major medical problems she is aware of. 2 siblings have one from alcohol abuse and 1. Coronary artery disease. Daughter(s) Additional Family Medical History / Comment(s): Patient has one daughter with no major medical problems. General Exam - General Exam Comments Initial Comments: Constitutional: NAD, AOX3, Pt has pleasant affect. HEENT: NC/AT, trachea midline, neck supple, no lymphadenopathy. Posterior pharynx non erythematous, without exudates. External ears appear normal, without discharge. Mucous membranes moist. Eyes PERRLA, EOM intact. There is no scleral icterus. No pallor noted. Cardiopulmonary: RRR, no murmurs, rubs or gallops, no JVD noted. Lungs CTAB in anterior and posterior galvan. No peripheral edema. Abdominal exam: Abdomen soft and mildly distended. Abdomen non-tender to palpation in all 4 quadrants. Bowel sounds active in LLQ. No hepatosplenomegaly. No ecchymosis Neuro: CN II-XII intact. No nuchal rigidity. No raccon eyes, no nieto sign, no hemotympanum. No cervical spinal tenderness. MSK: No posterior calf tenderness bilaterally, homans sign negative bilaterally. Posterior tibialis and radial pulse +2 bilaterally. Sensation intact in upper and lower extremities. Full active ROM in upper and lower extremities, 5/5 stregnth. Limitations: no limitations Course Vital Signs 07/19/20 07/19/20 17:07 18:14 Temperature 98 F Pulse Rate 99 93 Respiratory 18 20 Rate Blood Pressure 115/87 115/67 O2 Sat by Pulse 100 99 Oximetry Medical Decision Making - Medical Decision Making 60-year-old female patient presents to ED for evaluation generalized weakness, reports some difficulty swallowing solids and liquids visiting his gets dark. Symptoms have been going on for months. Denies any acute area of pain or discomfort. Vital signs are stable, afebrile. Physical exam displayed distended belly NAD suspect ascites. Patient reports that she was a daily drinker however does not drink in over a week. Laboratory investigations si gnificant for hernandez electrolyte abnormalities hypocalcemia hypophosphatemia hypomagnesemia, patient will be admitted for further evaluation. Case discussed with Dr. Cottrell. - Lab Data Result diagrams: 07/19/20 17:57 07/19/20 17:57 Lab Results 07/19/20 07/19/20 07/19/20 Range/Units 17:57 17:57 17:57 WBC 8.4 (3.8-10.6) k/uL RBC 3.40 L (3.80-5.40) m/uL Hgb 9.2 L D (11.4-16.0) gm/dL Hct 29.3 L (34.0-46.0) % MCV 86.1 D (80.0-100.0) fL MCH 27.1 (25.0-35.0) pg MCHC 31.5 (31.0-37.0) g/dL RDW 19.6 H (11.5-15.5) % Plt Count 108 L (150-450) k/uL Neutrophils % 70 % Lymphocytes % 21 % Monocytes % 5 % Eosinophils % 1 % Basophils % 1 % Neutrophils # 5.9 (1.3-7.7) k/uL Lymphocytes # 1.7 (1.0-4.8) k/uL Monocytes # 0.4 (0-1.0) k/uL Eosinophils # 0.1 (0-0.7) k/uL Basophils # 0.1 (0-0.2) k/uL Hypochromasia Slight Anisocytosis Slight PT 12.9 H (9.0-12.0) sec INR 1.3 H (<1.2) APTT 23.6 (22.0-30.0) sec Sodium 131 L (137-145) mmol/L Potassium 2.1 L* (3.5-5.1) mmol/L Chloride 96 L (98-107) mmol/L Carbon Dioxide 25 (22-30) mmol/L Anion Gap 10 mmol/L BUN 5 L (7-17) mg/dL Creatinine 0.52 (0.52-1.04) mg/dL Est GFR (CKD-EPI)AfAm >90 (>60 ml/min/1.73 sqM) Est GFR (CKD-EPI)NonAf >90 (>60 ml/min/1.73 sqM) Glucose 92 (74-99) mg/dL Plasma Lactic Acid Camron (0.7-2.0) mmol/L Calcium 6.7 L (8.4-10.2) mg/dL Phosphorus 2.2 L (2.5-4.5) mg/dL Magnesium 1.3 L (1.6-2.3) mg/dL Total Bilirubin 2.0 H (0.2-1.3) mg/dL AST 87 H (14-36) U/L ALT 18 (4-34) U/L Alkaline Phosphatase 217 H (38-126) U/L Troponin I (0.000-0.034) ng/mL Total Protein 5.4 L (6.3-8.2) g/dL Albumin 2.4 L (3.5-5.0) g/dL 07/19/20 07/19/20 Range/Units 17:57 17:57 WBC (3.8-10.6) k/uL RBC (3.80-5.40) m/uL Hgb (11.4-16.0) gm/dL Hct (34.0-46.0) % MCV (80.0-100.0) fL MCH (25.0-35.0) pg MCHC (31.0-37.0) g/dL RDW (11.5-15.5) % Plt Count (150-450) k/uL Neutrophils % % Lymphocytes % % Monocytes % % Eosinophils % % Basophils % % Neutrophils # (1.3-7.7) k/uL Lymphocytes # (1.0-4.8) k/uL Monocytes # (0-1.0) k/uL Eosinophils # (0-0.7) k/uL Basophils # (0-0.2) k/uL Hypochromasia Anisocytosis PT (9.0-12.0) sec INR (<1.2) APTT (22.0-30.0) sec Sodium (137-145) mmol/L Potassium (3.5-5.1) mmol/L Chloride (98-107) mmol/L Carbon Dioxide (22-30) mmol/L Anion Gap mmol/L BUN (7-17) mg/dL Creatinine (0.52-1.04) mg/dL Est GFR (CKD-EPI)AfAm (>60 ml/min/1.73 sqM) Est GFR (CKD-EPI)NonAf (>60 ml/min/1.73 sqM) Glucose (74-99) mg/dL Plasma Lactic Acid Camron 1.2 (0.7-2.0) mmol/L Calcium (8.4-10.2) mg/dL Phosphorus (2.5-4.5) mg/dL Magnesium (1.6-2.3) mg/dL Total Bilirubin (0.2-1.3) mg/dL AST (14-36) U/L ALT (4-34) U/L Alkaline Phosphatase (38-126) U/L Troponin I <0.012 (0.000-0.034) ng/mL Total Protein (6.3-8.2) g/dL Albumin (3.5-5.0) g/dL - EKG Data -: EKG Interpreted by Me (and Dr. Cottrell ) EKG Comments: Ventricular rate 96, TX interval 112, QRS 86, QT/QTc 444/560. Sensory rhythm with occasional PVC. ST and T wave abnormality, consider anterior ischemia. No significant change from prior. No concern for acute ischemia at this time. Disposition Clinical Impression: Hypokalemia, Hypocalcemia, Electrolyte abnormality, Hypomagnesemia Disposition: ADMITTED IP TO THIS HOSP Condition: Serious Is patient prescribed a controlled substance at d/c from ED?: No Referrals: Davide العلي MD [Primary Care Provider] - 1-2 days
[2020-07-19 18:32] LABS: Anisocytosis Slight; Basophils # (A) 0.1 k/uL (0-0.2); Basophils % (A) 1 %; Eosinophils # (A) 0.1 k/uL (0-0.7); Eosinophils % (A) 1 %; HCT 29.3 % (34.0-46.0); Hypochromasia Slight; Lymphocytes # (A) 1.7 k/uL (1.0-4.8); Lymphocytes % (A) 21 %; MCH 27.1 pg (25.0-35.0); MCHC 31.5 g/dL (31.0-37.0); Mean Platelet Volume 9.3; Monocytes # (A) 0.4 k/uL (0-1.0); Monocytes % (A) 5 %; Neutrophils # (A) 5.9 k/uL (1.3-7.7); Neutrophils % (A) 70 %; Platelet Count 108 k/uL (150-450); RDW 19.6 % (11.5-15.5); WBC 8.4 k/uL (3.8-10.6)
--- NOTE | 2020-07-19 18:38 | XR ---
EXAMINATION TYPE: XR chest 2V DATE OF EXAM: 07/19/2020 COMPARISON: 05/20/2020 HISTORY: 60-year-old female with weakness and dehydration TECHNIQUE: AP and lateral views FINDINGS: Heart upper limits of normal in size. Peribronchial cuffing and interstitial prominence. No consolida tion or pleural effusion. IMPRESSION: Borderline heart size. Mild peribronchial cuffing could reflect bronchitis or chronic asthma.
[2020-07-19 18:41] LABS: ALT 18 U/L (4-34); AST 87 U/L (14-36); African American GFR (CKD) >90 (>60 ml/min/1.73 sqM); Albumin 2.4 g/dL (3.5-5.0); Alkaline Phosphatase 217 U/L (38-126); Anion Gap 10 mmol/L; Blood Urea Nitrogen 5 mg/dL (7-17); Calcium 6.7 mg/dL (8.4-10.2); Carbon Dioxide 25 mmol/L (22-30); Chloride 96 mmol/L (98-107); Glucose 92 mg/dL (74-99); Magnesium 1.3 mg/dL (1.6-2.3); Non-African American GFR(CKD) >90 (>60 ml/min/1.73 sqM); Phosphorus 2.2 mg/dL (2.5-4.5); Sodium 131 mmol/L (137-145); Total Protein 5.4 g/dL (6.3-8.2)
[2020-07-19 18:45] LABS: HGB 9.2 gm/dL (11.4-16.0); MCV 86.1 fL (80.0-100.0)
[2020-07-19 18:47] LABS: Potassium 2.1 mmol/L (3.5-5.1)
[2020-07-19] MEDS ORDERED: Potassium Replacement Protocol 1 EACH MISC MISCELLANE PRN (18:50)
[2020-07-19] MEDS ORDERED: CALCIUM GLUCONATE 1 GM in SODIUM CHLORIDE 0.9% 100 ML IVPB ONE (18:53)
[2020-07-19] MEDS ORDERED: MAGNESIUM OXIDE 400 MG TAB PO STA (18:54)
[2020-07-19 18:55] LABS: INR 1.3 (<1.2); Partial Thromboplastin Time 23.6 sec (22.0-30.0); Prothrombin Time 12.9 sec (9.0-12.0)
[2020-07-19] MEDS ORDERED: POTASSIUM CHLORIDE 40 MEQ in WATER FOR INJECTION 1 100ML.BAG IVPB STA (19:04)
[2020-07-19] MEDS ORDERED: POTASSIUM CHLORIDE ER 20 MEQ TAB.ER PO STA (19:04)
[2020-07-19] MEDS ORDERED: NALOXONE 0.4 MG/ML 1 ML VIAL IV PRN (19:15)
[2020-07-19] MEDS ORDERED: THIAMINE 100 MG/ML 2 ML VIAL IM STA (19:19)
[2020-07-19] MEDS ORDERED: LORazepam 2 MG/ML INJ IV PRN ×3 (19:19)
[2020-07-19] MEDS: MAGNESIUM SULFATE-D5W PMX 1 GM in DEXTROSE/WATER 1 100ML.BAG IVPB SCH ×2 (19:23→20:45)
[2020-07-19] MEDS ORDERED: POTASSIUM CHLORIDE 20 MEQ in WATER FOR INJECTION 1 100ML.BAG IVPB SCH (20:00)
[2020-07-19] MEDS ORDERED: POTASSIUM CHLORIDE ER 20 MEQ TAB.ER PO SCH ×2 (20:00)
[2020-07-19] MEDS: THIAMINE 100 MG TAB PO SCH (22:52)
[2020-07-19] MEDS: POTASSIUM CHLORIDE 20 MEQ in WATER FOR INJECTION 1 100ML.BAG IVPB SCH (23:33)
[2020-07-20 01:59] LABS: Appearance,Urine Clear (Clear); Bilirubin,Urine Negative (Negative); Blood,Urine Negative (Negative); Color,Urine Yellow; Glucose,Urine (UA) Negative (Negative); Ketones,Urine Negative (Negative); Leukocyte Esterase,Urine Negative (Negative); Nitrite,Urine Negative (Negative); PH, Urine 6.5 (5.0-8.0); Protein,Urine Negative (Negative); Specific Gravity,Urine 1.003 (1.001-1.035); Urobilinogen,Urine <2.0 mg/dL (<2.0)
[2020-07-20] MEDS: POTASSIUM CHLORIDE 20 MEQ in WATER FOR INJECTION 1 100ML.BAG IVPB SCH (02:00)
[2020-07-20] MEDS: THIAMINE 100 MG TAB PO SCH ×2 (06:30→18:02)
[2020-07-20 08:38] LABS: Potassium 3.2 mmol/L (3.5-5.1)
[2020-07-20 08:39] LABS: Calcium 7.7 mg/dL (8.4-10.2)
[2020-07-20] MEDS ORDERED: Potassium Replacement Protocol 1 EACH MISC MISCELLANE PRN (09:19)
[2020-07-20] MEDS ORDERED: POTASSIUM CHLORIDE ER 20 MEQ TAB.ER PO STA (09:40)
[2020-07-20] MEDS: PANTOPRAZOLE 40 MG/10 ML VIAL IVP SCH ×2 (09:49→23:16)
[2020-07-20 10:24] LABS: Amylase 36 U/L (30-110)
--- NOTE | 2020-07-20 11:22 | P.HPIM ---
History of Present Illness H&P Date: 07/20/20 Chief Complaint: Difficulty eating and drinking This is a 60-year-old female patient of Dr. العلي with a past medical history of coronary artery disease, hypertension, seasonal ALLERGIES, gastroesophageal reflux disease, CVA lacunar infarct left anterior parietal l obe, cortical infarct, carotid endarterectomy, right lower extremity weakness secondary to lumbar radiculopathy, active tobacco use and dependence, daily alcohol use, daily marijuana use. She was last hospitalized in May for chest pain and underwent Lexiscan stress test revealed no evidence of reversible ischemia and Echocardiogram revealed EF 55-60%, mild mitral regurgitation. Patient was discharged home. In August 2019 she underwent a cardiac catheterization which revealed a chronic total occlusion of the right coronary artery with extensive collaterals from the left system and medical therapy was advised. She was also treated at that time for acute on chronic blood loss anemia secondary to alcoholic gastritis along with Brilinta and aspirin use. She was transfused 1 unit of packed red blood cells. Patient states that she quit smoking in 2018 but continues to drink alcohol but her last intake was a couple weeks ago but patient is vague and avoids questioning. She presents with complaints of "stomach problems" that she can't eat or drink anything that's gradually been worsening possibly going on for greater than 1 month. She states she weighs has problems with her memory. She also complains of abdominal pain and abdominal bloating. She complains of generalized weakness and chronic pain secondary to degenerative disc disease and chronic neuropathy. Patient presented to [facility] emergency center for evaluation. She was afebrile, heart rate initially 99, blood pressure 115/87 and pulse ox 100% on room air. Blood work revealed WBC 8.4, hemoglobin 9.2 and platelet count 108. Sodium 131, potassium 2.1 and was replaced in the emergency center. Chloride 96, CO2 25, BUN 5 and creatinine 0.92, blood sugar 92. Calcium 6.7, phosphorus 2.2, magnesium 1.3, total bilirubin 2, AST 87, ALT 18 and alkaline phosphatase 217. Albumin 2.4. Lactic acid 1.2 and troponin negative. EKG was a sinus rhythm at rate of 96, occasional PVCs, no acute ST changes. Chest x-ray reveals borderline heart size. Mild peribronchial cuffing could reflect bronchitis or chronic asthma. Patient has been admitted to the cardiac stepdown unit and consult requested with gastroenterology. Patient is currently nothing by mouth. Review of Systems Constitutional: No fever, no chills, no night sweats. No weight change. Reports weakness, fatiguey. No daytime sleepiness. EENT: No headache. No blurred vision or double vision, no loss of vision. No loss of Hearing, no ringing in the ears, no dizziness. No nasal drainage or congestion. No epistaxis. No sore throat. Reports dysphagia. Lungs: Denies shortness of breath, Reportscough, Reports sputum production. Reports wheezing. Cardiovascular: Denies chest pain, no lower extremity edema. No palpitations. No paroxysmal nocturnal dyspnea. No orthopnea. No lightheadedness or di zziness. No syncopal episodes. Abdominal: Reports abdominal pain. Reports abdominal bloating. No nausea, vomiting. No diarrhea. No constipation. No bloody or tarry stools.reports loss of appetite. Genitourinary: No dysuria, increased frequency, urgency. No urinary retention. Musculoskeletal: No myalgias. Reports muscle weakness, no gait dysfunction, no frequent falls. No back pain. No neck pain. Integumentary: No wounds, no lesions. No rash or pruritus. No unusual bruising. No change in hair or nails. Neurologic: No aphasia. No facial droop. No change in mentation. No head injury. No headache. No paralysis. No paresthesia. Psychiatric: No depression. No anxiety. No mood swings. Endocrine: No abnormal blood sugars. No weight change. No excessive sweating or thirst. No cold intolerance. Physical Examination Gen: This is a 60-year-old female. Patient is resting in bed and appears to be comfortable. HEENT: Head is atraumatic, normocephalic. Pupils equal, round. Sclerae is anicteric. NECK: Supple. No JVD. No lymphadenopathy. No thyromegaly. LUNGS: Clear to auscultation. No wheezes or rhonchi. No intercostal retractions. HEART: Regular rate and rhythm. No murmur. ABDOMEN: Soft. Bowel sounds are present. No masses. No tenderness. EXTREMITIES: No pedal edema. No calf tenderness. NEUROLOGICAL: Patient is awake, alert and oriented x3. Cranial nerves 2 through 12 are grossly intact. Assessment and Plan 1. Abdominal pain and bloating. Consult with GI. Patient is currently nothing by mouth. Continue IV fluids 0.9 normal saline at 75 mL per hour. Protonix 40 mg IV twice daily. 2. Dysphagia of unclear etiology. Consult with GI for possible EGD. 3. History of coronary artery disease. Continue aspirin 81 mg daily, Imdur 30 mg daily 4. Electrolyte abnormalities with hyponatremia, hypokalemia, hypocalcemia status post replacement. Repeat blood work in the morning. 5. Alcoholic liver disease with elevated liver function tests, chronic. Patient states she has not had alcohol intake for 1 week. Continue thiamine. Patient is on the CIWA protocol 6. Hypertension. Continue amlodipine 5 mg daily. 7. Gastroesophageal reflux disease. Continue Protonix. 8. History of acute GI bleed secondary to alcohol gastritis along with Brilinta and aspirin use, stable. Patient is off Brilinta. 9. History of CVA and left internal carotid artery stenting for critical stenosis in July 2019, stable. 10. Remote history of tobacco use and patient quit in 2018. 11. Marijuana use daily. 12. DVT prophylaxis. Heparin subcu. Patient admitted to the hospital for a minimum of 2 nights stay. Discharge plan: Return home Impression and plan of care have been directed as dictated by the signing physician. Gladis Vieyra nurse practitioner acting as scribe for signing physician. Past Medical History Past Medical History: Asthma, Coronary Artery Disease (CAD), CVA/TIA, Myocardial Infarction ([place]), Seizure Disorder Additional Past Medical History / Comment(s): DDD, CVA 06/2019, pt. states they have a blockage in their heart, NERVE DAMAGE GREGORY LEGS Last Myocardial Infarction Date:: aug 2018 History of Any Multi-Drug Resistant Organisms: None Reported Past Surgical History: Cholecystectomy, Heart Catheterization, Joint Replacement, Orthopedic Surgery Additional Past Surgical History / Comment(s): bartholin gland cyst removal, stent placed Past Anesthesia/Blood Transfusion Reactions: No Reported Reaction Past Psychological History: Anxiety, Depression Smoking Status: Former smoker Past Alcohol Use History: None Reported, Daily, Occasional Additional Past Alcohol Use History / Comment(s): Patient is an active smoker since age 18 and quit in 2019. She uses marijuana on a daily basis. She is also has history of alcohol abuse and reports that she is drinking couple glasses of wine and a shot of whiskey every day. She denies any street drug use. She uses a walker at home and is currently on disability. PT STATES NO LONGER DRINKS WHISKEY, AND HAS CUT OUT DRINKING ALTOGHTHER 1 WEEK AGO Past Drug Use History: Marijuana - Past Family History Mother Family Medical History: Cancer, Congestive Heart Failure (CHF), Coronary Artery Disease (CAD), Hyperlipidemia Additional Family Medical History / Comment(s): Mother at age 85 from lung cancer. Father Family Medical History: Cancer, COPD Additional Family Medical History / Comment(s): Father at age 63 from lung cancer. Brother(s) Additional Family Medical History / Comment(s): Patient has a total of 7 siblings. 5 are alive without any major medical problems she is aware of. 2 siblings have one from alcohol abuse and 1. Coronary artery disease. Daughter(s) Additional Family Medical History / Comment(s): Patient has one daughter with no major medical problems. Medications and Allergies Home Medications Medication Instructions Recorded Confirmed Type Aspirin EC [Ecotrin Low Dose] 81 mg PO DAILY 02/11/19 07/19/20 History Isosorbide Mononitrate ER [Imdur] 30 mg PO DAILY 09/10/19 07/19/20 History Pantoprazole [Protonix] 40 mg PO BID 09/10/19 07/19/20 History Fluticasone Nasal [place] [Flonase 1 spr EA NOSTRIL DAILY 09/12/19 07/19/20 History Nasal [place]] amLODIPine [Norvasc] 10 mg PO DAILY 12/10/19 07/19/20 History Folic Acid 1 mg PO DAILY 05/20/20 07/19/20 History Multivitamins, Thera [Multivitamin 1 tab PO DAILY 05/20/20 07/19/20 History (formulary)] Dicyclomine [Bentyl] 10 mg PO TID 07/19/20 07/19/20 History Ibuprofen [Motrin Ib] 200 mg PO DAILY PRN 07/19/20 07/19/20 History Unknown Antacid (Unknown Strength) 1 tab PO DAILY PRN 07/19/20 07/19/20 History Allergies Allergy/AdvReac Type Severity Reaction Status Date / Time Influenza Virus Vaccines AdvReac Nausea & Verified 07/19/20 21:36 Vomiting morphine AdvReac Nausea & Verified 07/19/20 21:36 Vomiting Physical Exam Vitals: Vital Signs Temp Pulse Pulse Resp BP BP Pulse Ox 07/20/20 08:47 97.8 F 82 16 106/65 99 07/20/20 04:00 97.7 F 85 18 78/44 95 07/20/20 01:00 97.7 F 86 18 111/65 93 L 07/19/20 20:39 97.7 F 95 18 92/70 100 07/19/20 20:30 97.7 F 95 18 92/70 100 07/19/20 20:10 18 07/19/20 19:26 93 18 101/74 98 07/19/20 18:14 93 20 115/67 99 07/19/20 17:07 98 F 99 18 115/87 100 Intake and Output 07/19/20 07/20/20 07/20/20 22:59 06:59 14:59 Other: Voiding Method Toilet Toilet Toilet Weight 68.039 kg 65.5 kg Results CBC & Chem 7: 07/19/20 17:57 07/20/20 07:46 Labs: Abnormal Lab Results - Last 24 Hours (Table) 07/19/20 07/19/20 07/19/20 Range/Units 17:57 17:57 17:57 RBC 3.40 L (3.80-5.40) m/uL Hgb 9.2 L D (11.4-16.0) gm/dL Hct 29.3 L (34.0-46.0) % RDW 19.6 H (11.5-15.5) % Plt Count 108 L (150-450) k/uL PT 12.9 H (9.0-12.0) sec INR 1.3 H (<1.2) Sodium 131 L (137-145) mmol/L Potassium 2.1 L* (3.5-5.1) mmol/L Chloride 96 L (98-107) mmol/L BUN 5 L (7-17) mg/dL Calcium 6.7 L (8.4-10.2) mg/dL Phosphorus 2.2 L (2.5-4.5) mg/dL Magnesium 1.3 L (1.6-2.3) mg/dL Total Bilirubin 2.0 H (0.2-1.3) mg/dL AST 87 H (14-36) U/L Alkaline Phosphatase 217 H (38-126) U/L Total Protein 5.4 L (6.3-8.2) g/dL Albumin 2.4 L (3.5-5.0) g/dL 07/20/20 Range/Units 07:46 RBC (3.80-5.40) m/uL Hgb (11.4-16.0) gm/dL Hct (34.0-46.0) % RDW (11.5-15.5) % Plt Count (150-450) k/uL PT (9.0-12.0) sec INR (<1.2) Sodium (137-145) mmol/L Potassium 3.2 L (3.5-5.1) mmol/L Chloride (98-107) mmol/L BUN (7-17) mg/dL Calcium 7.7 L (8.4-10.2) mg/dL Phosphorus (2.5-4.5) mg/dL Magnesium (1.6-2.3) mg/dL Total Bilirubin (0.2-1.3) mg/dL AST (14-36) U/L Alkaline Phosphatase (38-126) U/L Total Protein (6.3-8.2) g/dL Albumin (3.5-5.0) g/dL Thrombosis Risk Factor Assmnt - Choose All That Apply Each Factor Represents 1 point: Age 41-60 years Thrombosis Risk Factor Assessment Total Risk Factor Score: 1 Thrombosis Risk Factor Assessment Level: Low Risk
[2020-07-20] MEDS: amLODIPine 10 MG TAB PO SCH (11:23)
[2020-07-20] MEDS: ISOSORBIDE MONONITRATE ER 30 MG TAB.ER.24H PO SCH (11:23)
[2020-07-20] MEDS: SODIUM CHLORIDE 0.9% 1,000 ML IV SCH (11:23)
[2020-07-20] MEDS: ASPIRIN 81 MG PO SCH (11:23)
[2020-07-20] MEDS: ACETAMINOPHEN TAB 325 MG TAB PO PRN ×2 (12:55→23:17)
[2020-07-20] MEDS: DICYCLOMINE 10 MG CAP PO SCH ×2 (18:01→23:18)
[2020-07-20] MEDS: HEPARIN SODIUM,PORCINE 5,000 UNIT/ML 1 ML VIAL SQ SCH (23:16)
[2020-07-21] MEDS: SODIUM CHLORIDE 0.9% 1,000 ML IV SCH ×2 (04:55→12:30)
[2020-07-21 07:03] LABS: Anisocytosis Slight; HCT 23.9 % (34.0-46.0); Hypochromasia Marked; MCH 26.3 pg (25.0-35.0); MCHC 29.6 g/dL (31.0-37.0); MCV 88.9 fL (80.0-100.0); Mean Platelet Volume 9.1; Platelet Count 122 k/uL (150-450); RBC 2.69 m/uL (3.80-5.40); RDW 19.9 % (11.5-15.5); WBC 6.5 k/uL (3.8-10.6)
[2020-07-21 07:07] LABS: ALT 17 U/L (4-34); AST 69 U/L (14-36); African American GFR (CKD) >90 (>60 ml/min/1.73 sqM); Albumin 2.3 g/dL (3.5-5.0); Alkaline Phosphatase 202 U/L (38-126); Anion Gap 6 mmol/L; Blood Urea Nitrogen 4 mg/dL (7-17); Calcium 7.4 mg/dL (8.4-10.2); Carbon Dioxide 27 mmol/L (22-30); Chloride 99 mmol/L (98-107); Glucose 88 mg/dL (74-99); HGB 7.1 gm/dL (11.4-16.0); Non-African American GFR(CKD) >90 (>60 ml/min/1.73 sqM); Potassium 3.1 mmol/L (3.5-5.1); Sodium 132 mmol/L (137-145); Total Bilirubin 1.5 mg/dL (0.2-1.3); Total Protein 5.2 g/dL (6.3-8.2)
--- NOTE | 2020-07-21 07:23 | P.CONS ---
History of Present Illness - Reason for Consult Consult date: 07/20/20 Abdominal pain Requesting physician: Julio Cabezas - Chief Complaint Abdominal pain - History of Present Illness 60-year-old female with multiple medical comorbidities including asthma, hypertension, dyslipidemia, nicotine abuse, prior history of alcohol abuse for which she reports abstinence over the past month, IBS, coronary artery disease, GERD, prior CVA and hypertension. Patient presented to the hospital for complaints of abdominal pain. She describes pain as bloating, distention and diffuse pain across her abdomen. She reports decreased oral intake with the pa in. She reports occasional nausea and vomiting. She states that she is compliant with Protonix twice daily at home. She states she has significant gas, bloating and distention. She also describes symptoms of esophageal dysphagia. She reports her last EGD was 5-6 years ago with the surgical serv ice. Patient states that she was drinking hard liquor up until 2 months ago and wine up until one month ago but states that she is now abstinent from alcohol use. On presentation laboratory evaluation significant for WBC 8.4, hemoglobin 9.2 from 9.6, platelet count 108,000, total bilirubin 2, alkaline phosphatase 217, AST 87 and ALT 18. Review of Systems REVIEW OF SYSTEMS: CONSTITUTIONAL: Denies any fevers, chills, or fatigue. CARDIOVASCULAR: Denies any chest pain, palpitations high or low blood pressures RESPIRATORY: Denies any shortness of breath, hemoptysis or cough. GENITOURINARY: No dysuria or hematuria. MUSCULOSKELETAL: No weakness reported. SKIN: Denies any new rashes or lesions, jaundice or pallor. PSYCHIATRIC: Denies any depression or anxiety, history of alcohol abuse. NEUROLOGY: Denies headache, denies any new focal deficits. EARS/NOSE/THROAT: No recent hearing change, congestion, nasal discharge or sore throat. EYES: No pain in eyes, discharge or change in vision. GASTROINTESTINAL: As per HPI. Past Medical History Past Medical History: Asthma, Coronary Artery Disease (CAD), CVA/TIA, Myocardial Infarction ([place]), Seizure Disorder Additional Past Medical History / Comment(s): DDD, CVA 06/2019, pt. states they have a blockage in their heart, NERVE DAMAGE GREGORY LEGS Last Myocardial Infarction Date:: aug 2018 History of Any Multi-Drug Resistant Organisms: None Reported Past Surgical History: Cholecystectomy, Heart Catheterization, Joint Replacement, Orthopedic Surgery Additional Past Surgical History / Comment(s): bartholin gland cyst removal, stent placed Past Anesthesia/Blood Transfusion Reactions: No Reported Reaction Past Psychological History: Anxiety, Depression Smoking Status: Former smoker Past Alcohol Use History: None Reported, Daily, Occasional Additional Past Alcohol Use History / Comment(s): Patient is an active smoker since age 18 and quit in 2019. She uses marijuana on a daily basis. She is also has history of alcohol abuse and reports that she is drinking couple glasses of wine and a shot of whiskey every day. She denies any street drug use. She uses a walker at home and is currently on disability. PT STATES NO LONGER DRINKS WHISKEY, AND HAS CUT OUT DRINKING ALTOGHTHER 1 WEEK AGO Past Drug Use History: Marijuana - Past Family History Mother Family Medical History: Cancer, Congestive Heart Failure (CHF), Coronary Artery Disease (CAD), Hyperlipidemia Additional Family Medical History / Comment(s): Mother at age 85 from lung cancer. Father Family Medical History: Cancer, COPD Additional Family Medical History / Comment(s): Father at age 63 from lung cancer. Brother(s) Additional Family Medical History / Comment(s): Patient has a total of 7 siblings. 5 are alive without any major medical problems she is aware of. 2 siblings have one from alcohol abuse and 1. Coronary artery disease. Daughter(s) Additional Family Medical History / Comment(s): Patient has one daughter with no major medical problems. Medications and Allergies Home Medications Medication Instructions Recorded Confirmed Type Aspirin EC [Ecotrin Low Dose] 81 mg PO DAILY 02/11/19 07/19/20 History Isosorbide Mononitrate ER [Imdur] 30 mg PO DAILY 09/10/19 07/19/20 History Pantoprazole [Protonix] 40 mg PO BID 09/10/19 07/19/20 History Fluticasone Nasal [place] [Flonase 1 spr EA NOSTRIL DAILY 09/12/19 07/19/20 History Nasal Trinidad] amLODIPine [Norvasc] 10 mg PO DAILY 12/10/19 07/19/20 History Folic Acid 1 mg PO DAILY 05/20/20 07/19/20 History Multivitamins, Thera [Multivitamin 1 tab PO DAILY 05/20/20 07/19/20 History (formulary)] Dicyclomine [Bentyl] 10 mg PO TID 07/19/20 07/19/20 History Ibuprofen [Motrin Ib] 200 mg PO DAILY PRN 07/19/20 07/19/20 History Unknown Antacid (Unknown Strength) 1 tab PO DAILY PRN 07/19/20 07/19/20 History Allergies Allergy/AdvReac Type Severity Reaction Status Date / Time Influenza Virus Vaccines AdvReac Nausea & Verified 07/19/20 21:36 Vomiting morphine AdvReac Nausea & Verified 07/19/20 21:36 Vomiting Physical Exam Vitals: Vital Signs Temp Pulse Pulse Resp BP BP Pulse Ox 07/20/20 11:28 97.6 F 87 16 108/71 99 07/20/20 08:47 97.8 F 82 16 106/65 99 07/20/20 04:00 97.7 F 85 18 78/44 95 07/20/20 01:00 97.7 F 86 18 111/65 93 L 07/19/20 20:39 97.7 F 95 18 92/70 100 07/19/20 20:30 97.7 F 95 18 92/70 100 07/19/20 20:10 18 07/19/20 19:26 93 18 101/74 98 07/19/20 18:14 93 20 115/67 99 07/19/20 17:07 98 F 99 18 115/87 100 Intake and Output 07/20/20 07/20/20 07/20/20 06:59 14:59 22:59 Intake Total 75 Balance 75 Intake: Intake, IV Titration 75 Amount Sodium Chloride 0.9% 1, 75 000 ml @ 75 mls/hr IV . [id number] [facility] Rx#:[id number] Other: Voiding Method Toilet Toilet Weight 65.5 kg On physical examination, patient appears comfortable in no apparent distress. HEAD: Normocephalic, atraumatic. EYES: No scleral icterus. No conjunctival injection. MOUTH: No lesions, tongue midline. NECK: Trachea midline, no gross abnormalities. CHEST: Clear to auscultation with no wheezing or rhonchi appreciated. HEART: Regular rate and rhythm. ABDOMEN: Soft, obese. Bowel sounds are positive. No organomegaly. No guarding or rigidity. EXTREMITIES: No pedal edema. SKIN: No rashes, no jaundice. NEUROLOGIC: Alert and oriented x3. No focal deficits. Results CBC & Chem 7: 07/21/20 06:01 07/21/20 06:01 Labs: Abnormal Lab Results - Last 24 Hours (Table) 07/19/20 07/19/20 07/19/20 Range/Units 17:57 17:57 17:57 RBC 3.40 L (3.80-5.40) m/uL Hgb 9.2 L D (11.4-16.0) gm/dL Hct 29.3 L (34.0-46.0) % RDW 19.6 H (11.5-15.5) % Plt Count 108 L (150-450) k/uL PT 12.9 H (9.0-12.0) sec INR 1.3 H (<1.2) Sodium 131 L (137-145) mmol/L Potassium 2.1 L* (3.5-5.1) mmol/L Chloride 96 L (98-107) mmol/L BUN 5 L (7-17) mg/dL Calcium 6.7 L (8.4-10.2) mg/dL Phosphorus 2.2 L (2.5-4.5) mg/dL Magnesium 1.3 L (1.6-2.3) mg/dL Total Bilirubin 2.0 H (0.2-1.3) mg/dL AST 87 H (14-36) U/L Alkaline Phosphatase 217 H (38-126) U/L Total Protein 5.4 L (6.3-8.2) g/dL Albumin 2.4 L (3.5-5.0) g/dL 07/20/20 Range/Units 07:46 RBC (3.80-5.40) m/uL Hgb (11.4-16.0) gm/dL Hct (34.0-46.0) % RDW (11.5-15.5) % Plt Count (150-450) k/uL PT (9.0-12.0) sec INR (<1.2) Sodium (137-145) mmol/L Potassium 3.2 L (3.5-5.1) mmol/L Chloride (98-107) mmol/L BUN (7-17) mg/dL Calcium 7.7 L (8.4-10.2) mg/dL Phosphorus (2.5-4.5) mg/dL Magnesium (1.6-2.3) mg/dL Total Bilirubin (0.2-1.3) mg/dL AST (14-36) U/L Alkaline Phosphatase (38-126) U/L Total Protein (6.3-8.2) g/dL Albumin (3.5-5.0) g/dL Chest x-ray: report reviewed Assessment and Plan (1) Esophageal dysphagia Narrative/Plan: 60-year-old female with multiple medical comorbidities including alcohol abuse for which she reports one month of abstinence, irritable bowel syndrome, coronary artery disease, prior CVA, hypertension, prior nicotine abuse who presented to the hospital with multiple medical complaints including abdominal pain, bloating, distention, esophageal dysphagia and decreased oral intake. The patient has been seen previously for complaints of abdominal pain and has diagnosis of irritable bowel syndrome currently on Protonix twice daily and dicyclomine as needed in the outpatient setting. She reports symptoms of freq uent bloating and gaswith associated decreased oral intake. She feels as though she has solid food dysphagia and food sticking. She reports last EGD was 5-6 years ago with the surgical service. Unclear etiology, may be related to esophagitis, Schatzki's ring,underlying irritable bowel syndrome or other etiology. Current Visit: Yes Status: Acute Code(s): R13.10 - DYSPHAGIA, UNSPECIFIED SNOMED Code(s): 04334651 (2) Alcoholic liver disease Current Visit: Yes Status: Acute Code(s): K70.9 - ALCOHOLIC LIVER DISEASE, UNSPECIFIED SNOMED Code(s): 60579085 (3) Abdominal pain Current Visit: No Status: Acute Code(s): R10.9 - UNSPECIFIED ABDOMINAL PAIN SNOMED Code(s): 96023816 (4) Elevated liver enzymes Current Visit: No Status: Acute Code(s): R74.8 - ABNORMAL LEVELS OF OTHER SERUM ENZYMES SNOMED Code(s): 836029768 Plan: supportive care Nothing by mouth after midnight Plan for EGD tomorrow for further evaluation Continue Protonix 40 mg twice daily Extensive discussion with the patient regarding dietary modifications including low gas producing diet Continue management of other medical comorbidities Abstinence from alcohol Continue to monitor CBC, BMP, LFTs Thank you for allowing us to participate in the care of the patient
[2020-07-21] MEDS: amLODIPine 10 MG TAB PO SCH (08:38)
[2020-07-21] MEDS: ISOSORBIDE MONONITRATE ER 30 MG TAB.ER.24H PO SCH (08:38)
[2020-07-21] MEDS: HEPARIN SODIUM,PORCINE 5,000 UNIT/ML 1 ML VIAL SQ SCH ×2 (08:38→20:32)
[2020-07-21] MEDS: PANTOPRAZOLE 40 MG/10 ML VIAL IVP SCH ×2 (08:38→20:32)
[2020-07-21] MEDS: DICYCLOMINE 10 MG CAP PO SCH ×3 (08:38→21:47)
[2020-07-21] MEDS: THIAMINE 100 MG TAB PO SCH ×2 (08:38→17:54)
[2020-07-21] MEDS: ASPIRIN 81 MG PO SCH (08:38)
[2020-07-21] MEDS: FOLIC ACID 1 MG TAB PO SCH (08:38)
[2020-07-21] MEDS: FLUTICASONE 50MCG/SPRAY NASAL 16GM EA NOSTRIL SCH (08:42)
[2020-07-21] MEDS: POTASSIUM CHLORIDE ER 20 MEQ TAB.ER PO SCH ×2 (08:48→12:29)
--- NOTE | 2020-07-21 10:31 | US ---
EXAMINATION TYPE: US abdomen limited DATE OF EXAM: 07/21/2020 COMPARISON: NO RECENT CLINICAL HISTORY: 60-year-old female ascites. DISTENDED ABDOMEN TECHNIQUE: Ultrasound examination of both lower abdominal quadrants for assessment of ascites fluid. FINDINGS: Ascites is seen in all four abdominal quadrants with largest fluid quadrant in RLQ = 8.0cm A/P. IMPRESSION: Moderate abdominal ascites, largest pocket in the right lower quadrant..
[2020-07-21] MEDS: traMADol 50 MG TAB PO PRN ×2 (12:29→20:32)
--- NOTE | 2020-07-21 13:04 | P.PN ---
Subjective Progress Note Date: 07/21/20 This is a 60-year-old female patient of Dr. العلي with a past medical history of coronary artery disease, hypertension, seasonal ALLERGIES, gastroesophageal reflux disease, CVA lacunar infarct left anterior parietal lobe, cortical infarct, carotid endarterectomy, right lower extremity weakness s econdary to lumbar radiculopathy, active tobacco use and dependence, daily alcohol use, daily marijuana use. She was last hospitalized in May for chest pain and underwent Lexiscan stress test revealed no evidence of reversible ischemia and Echocardiogram revealed EF 55-60%, mild mitral regurgitation. Patient was discharged home. In August 2019 she underwent a cardiac catheterization which revealed a chronic total occlusion of the right coronary artery with extensive collaterals from the left system and medical therapy was advised. She was also treated at that time for acute on chronic blood loss anemia secondary to alcoholic gastritis along with Brilinta and aspirin use. She was transfused 1 unit of packed red blood cells. Patient states that she quit smoking in 2018 but continues to drink alcohol but her last intake was a couple weeks ago but patient is vague and avoids questioning. She presents with complaints of "stomach problems" that she can't eat or drink anything that's g radually been worsening possibly going on for greater than 1 month. She states she weighs has problems with her memory. She also complains of abdominal pain and abdominal bloating. She complains of generalized weakness and chronic pain secondary to degenerative disc disease and chronic neuropathy. Patient presented to [facility] emergency center for evaluation. She was afebrile, heart rate initially 99, blood pressure 115/87 and pulse ox 100% on room air. Blood work revealed WBC 8.4, hemoglobin 9.2 and platelet count 108. Sodium 131, potassium 2.1 and was replaced in the emergency center. Chloride 96, CO2 25, BUN 5 and creatinine 0.92, blood sugar 92. Calcium 6.7, phosphorus 2.2, magnesium 1.3, total bilirubin 2, AST 87, ALT 18 and alkaline phosphatase 217. Albumin 2.4. Lactic acid 1.2 and troponin negative. EKG was a sinus rhythm at rate of 96, occasional PVCs, no acute ST changes. Chest x-ray reveals borderline heart size. Mild peribronchial cuffing could reflect bronchitis or chronic asthma. Patient has been admitted to the cardiac stepdown unit and consult requested with gastroenterology. Patient is currently nothing by mouth. 07/21: Patient is requesting pain medication. We will start tramadol but only 3 times a day as needed. She has been seen by GI with plan for EGD this afternoon. Patient has more abdominal distention and bloating and ultrasound will be ordered to assess for ascites. Patient is afebrile, heart rate 81, blood pressure 93/60, pulse ox 90% on room air. Repeat blood work reveals hemoglobin is 7.1, platelet count 122. Sodium 132 and potassium 3.1. Potassium will be replaced with 80 mEq. Creatinine 0.58. Total bilirubin 1.5, AST 69, ALT 17, alkaline phosphatase 202. Amylase 36 and lipase 124. Abdominal ultras ound revealed moderate abdominal ascites, largest pocket in the right lower quadrant. Review of Systems Constitutional: No fever, no chills, no night sweats. No weight change. Reports weakness, fatiguey. No daytime sleepiness. EENT: No headache. No blurred vision or double vision, no loss of vision. No loss of Hearing, no ringing in the ears, no dizziness. No nasal drainage or congestion. No epistaxis. No sore throat. Reports dysphagia. Lungs: Denies shortness of breath, Reportscough, Reports sputum production. Reports wheezing. Cardiovascular: Denies chest pain, no lower extremity edema. No palpitations. No paroxysmal nocturnal dyspnea. No orthopnea. No lightheadedness or dizziness. No syncopal episodes. Abdominal: Reports abdominal pain. Reports abdominal bloating worsening. No nausea, vomiting. No diarrhea. No constipation. No bloody or tarry stools.reports loss of appetite. Genitourinary: No dysuria, increased frequency, urgency. No urinary retention. Musculoskeletal: No myalgias. Reports muscle weakness, no gait dysfunction, no frequent falls. No back pain. No neck pain. Integumentary: No wounds, no lesions. No rash or pruritus. No unusual bruising. No change in hair or nails. Neurologic: No aphasia. No facial droop. No change in mentation. No head injury. No headache. No paralysis. No paresthesia. Psychiatric: No depression. No anxiety. No mood swings. Endocrine: No abnormal blood sugars. No weight change. No excessive sweating or thirst. No cold intolerance. Physical Examination Gen: This is a 60-year-old female. Patient is resting in bed and appears to be comfortable. HEENT: Head is atraumatic, normocephalic. Pupils equal, round. Sclerae is anicteric. NECK: Supple. No JVD. No lymphadenopathy. No thyromegaly. LUNGS: Clear to auscultation. No wheezes or rhonchi. No intercostal retractions. HEART: Regular rate and rhythm. No murmur. ABDOMEN: Positive ascites. Soft. Bowel sounds are present. No masses. Mild generalized tenderness. EXTREMITIES: No pedal edema. No calf tenderness. NEUROLOGICAL: Patient is awake, alert and oriented x3. Cranial nerves 2 through 12 are grossly intact. Assessment and Plan 1. Abdominal pain and bloating secondary to ascites. Consult with GI. Patient is currently nothing by mouth. Continue IV fluids 0.9 normal saline at 75 mL per hour. Protonix 40 mg IV twice daily. 2. Dysphagia of unclear etiology. Consult with GI for possible EGD. 3. History of coronary artery disease. Continue aspirin 81 mg daily, Imdur 30 mg daily 4. Electrolyte abnormalities with hyponatremia, hypokalemia, hypocalcemia status post replacement. Repeat blood work in the morning. 5. Alcoholic liver disease with elevated liver function tests, chronic. Patient states she has not had alcohol intake for 1 week. Continue thiamine. Patient is on the CIWA protocol 6. Hypertension. Continue amlodipine 5 mg daily. 7. Gastroesophageal reflux disease. Continue Protonix. 8. History of acute GI bleed secondary to alcohol gastritis along with Brilinta and aspirin use, stable. Patient is off Brilinta. 9. History of CVA and left internal carotid artery stenting for critical stenosis in July 2019, stable. 10. Remote history of tobacco use and patient quit in 2019. 11. Marijuana use daily. 12. DVT prophylaxis. Heparin subcu. Discharge plan: Return home Impression and plan of care have been directed as dictated by the signing physician. Gladis Vieyra nurse practitioner acting as scribe for signing physician. Objective - Vital Signs Vital signs: Vital Signs Temp 98.0 F 07/21/20 03:58 Pulse 79 07/21/20 03:58 Resp 16 07/21/20 03:58 BP 87/52 07/21/20 03:58 Pulse Ox 95 07/21/20 03:58 Intake & Output 07/20/20 07/21/20 07/21/20 18:59 06:59 18:59 Intake Total 435 540 Balance 435 540 Weight 65.2 kg Intake: Intake, IV Titration 75 Amount Sodium Chloride 0.9% 1, 75 000 ml @ 75 mls/hr IV . [id number] [facility] Rx#:[id number] Oral 360 540 Other: Voiding Method Toilet - Labs CBC & Chem 7: 07/21/20 06:01 07/21/20 06:01 Labs: Abnormal Lab Results - Last 24 Hours (Table) 07/20/20 07/21/20 07/21/20 Range/Units 07:46 06:01 06:01 RBC 2.69 L (3.80-5.40) m/uL Hgb 7.1 L D (11.4-16.0) gm/dL Hct 23.9 L (34.0-46.0) % MCHC 29.6 L (31.0-37.0) g/dL RDW 19.9 H (11.5-15.5) % Plt Count 122 L (150-450) k/uL Sodium 132 L (137-145) mmol/L Potassium 3.1 L (3.5-5.1) mmol/L BUN 4 L (7-17) mg/dL Calcium 7.7 L 7.4 L (8.4-10.2) mg/dL Total Bilirubin 1.5 H (0.2-1.3) mg/dL AST 69 H (14-36) U/L Alkaline Phosphatase 202 H (38-126) U/L Total Protein 5.2 L (6.3-8.2) g/dL Albumin 2.3 L (3.5-5.0) g/dL
[2020-07-21] MEDS ORDERED: LIDOCAINE 1% INJ 10MG/ML (20 ML MDV) ONE (14:04)
[2020-07-21] MEDS ORDERED: IV FLUID CONTINUATION 1,000 ML IV ONE (14:04)
[2020-07-21] MEDS ORDERED: PROPOFOL 10 MG/ML 20 ML VIAL IV ONE (14:04)
--- NOTE | 2020-07-21 14:32 | P.PCN ---
Date of Procedure: 07/21/20 Description of Procedure: BRIEF HISTORY: 60-year-old female with multiple medical comorbidities including asthma, hypertension, dyslipidemia, nicotine abuse, prior history of alcohol abuse for which she reports abstinence over the past month, IBS, coronary artery disease, GERD, prior CVA and hypertension. Patient presented to the hospital for complaints of abdominal pain. She describes pain as bloating, distention and diffuse pain across her abdomen. She reports decreased oral intake with the pain. She reports occasional nausea and vomiting. She states that she is compliant with Protonix twice daily at home. She states she has significant gas, bloating and distention. She also describes symptoms of esophageal dysphagia. She reports her last EGD was 5-6 years ago with the surgical service. Patient states that she was drinking hard liquor up until 2 months ago and wine up until one month ago but states that she is now abstinent from alcohol use. On presentation laboratory evaluation significant for WBC 8.4, hemoglobin 9.2 from 9.6, platelet count 108,000, total bilirubin 2, alkaline phosphatase 217, AST 87 and ALT 18. PROCEDURE PERFORMED: Esophagogastroduodenoscopy with biopsy. PREOPERATIVE DIAGNOSIS: Esophageal dysphagia, nausea and vomiting, abdominal pain. ESTIMATED BLOOD LOSS: Minimal. IV sedation per anesthesia. PROCEDURE: After informed consent was obtained, the patient was brought into the endoscopy unit. IV sedation was administered by Anesthesia under continuous monitoring. Initially the Olympus GIF-190 video endoscope was inserted into the mouth. Esophagus intubated without any difficulty. It was gradually advanced into the stomach and duodenum and carefully examined. The bulb and the second part of the duodenum appeared normal, with biopsies taken. The scope at this time was withdrawn to the stomach, adequately insufflated with air, and upon careful examination, mucosa of the antrum, body, cardia and the fundus appeared normal, except for mild punctate erythema in the body and fundus suggestive of mild portal hypertensive gastropathy with biopsies of antrum and body taken. The scope was then withdrawn into the esophagus. The GE junction was located at 39 cm from the incisors. The esophagus appeared normal, with mid esophageal biopsies taken to rule out eosinophilic esophagitis. There were no erosions or ulcerations seen and the patient tolerated the procedure well. IMPRESSION: 1. Mild portal hypertensive gastropathy. 2. No varices, ulcers or other gross abnormalities noted. 3. Biopsies of the duodenum, antrum and body and midesophagus. RECOMMENDATIONS: The findings of this examination were discussed with the patient. Okay to initiate sodium restricted diet. Aldactone 50 mg daily will be initiated for fluid overload and ascites. Ultrasound-guided biopsy ordered with fluid studies. Continue PPI therapy.
[2020-07-21] MEDS: SPIRONOLACTONE 25 MG TAB PO SCH (17:54)
[2020-07-22] MEDS: SODIUM CHLORIDE 0.9% 1,000 ML IV SCH (01:36)
[2020-07-22 06:33] LABS: Anisocytosis Slight; HCT 23.5 % (34.0-46.0); Hypochromasia Marked; MCHC 29.9 g/dL (31.0-37.0); MCV 90.3 fL (80.0-100.0); Mean Platelet Volume 8.8; Platelet Count 106 k/uL (150-450); RDW 19.8 % (11.5-15.5); WBC 7.3 k/uL (3.8-10.6)
[2020-07-22 06:40] LABS: ALT 16 U/L (4-34); AST 56 U/L (14-36); African American GFR (CKD) >90 (>60 ml/min/1.73 sqM); Albumin 2.2 g/dL (3.5-5.0); Alkaline Phosphatase 203 U/L (38-126); Anion Gap 5 mmol/L; Blood Urea Nitrogen 6 mg/dL (7-17); Calcium 7.4 mg/dL (8.4-10.2); Carbon Dioxide 26 mmol/L (22-30); Chloride 100 mmol/L (98-107); Glucose 102 mg/dL (74-99); Non-African American GFR(CKD) >90 (>60 ml/min/1.73 sqM); Potassium 3.8 mmol/L (3.5-5.1); Sodium 131 mmol/L (137-145); Total Bilirubin 1.1 mg/dL (0.2-1.3)
[2020-07-22] MEDS ORDERED: FUROSEMIDE 10 MG/ML 2 ML VIAL IV PRN (08:15)
[2020-07-22] MEDS: PANTOPRAZOLE 40 MG/10 ML VIAL IVP SCH ×2 (09:37→22:11)
[2020-07-22] MEDS: SPIRONOLACTONE 25 MG TAB PO SCH (09:39)
[2020-07-22] MEDS: ASPIRIN 81 MG PO SCH ×2 (09:39→09:42)
[2020-07-22] MEDS: amLODIPine 10 MG TAB PO SCH ×2 (09:39→09:43)
[2020-07-22] MEDS: DICYCLOMINE 10 MG CAP PO SCH ×3 (09:39→22:12)
[2020-07-22] MEDS: FOLIC ACID 1 MG TAB PO SCH (09:39)
[2020-07-22] MEDS: THIAMINE 100 MG TAB PO SCH ×2 (09:40→17:25)
[2020-07-22] MEDS: ISOSORBIDE MONONITRATE ER 30 MG TAB.ER.24H PO SCH (09:40)
[2020-07-22] MEDS: HEPARIN SODIUM,PORCINE 5,000 UNIT/ML 1 ML VIAL SQ SCH ×3 (09:41→22:12)
[2020-07-22] MEDS: FLUTICASONE 50MCG/SPRAY NASAL 16GM EA NOSTRIL SCH ×2 (11:02→16:42)
--- NOTE | 2020-07-22 11:55 | P.PN ---
Subjective Progress Note Date: 07/22/20 This is a 60-year-old female patient of Dr. العلي with a past medical history of coronary artery disease, hypertension, seasonal ALLERGIES, gastroesophageal reflux disease, CVA lacunar infarct left anterior parietal lobe, cortical infarct, carotid endarterectomy, right lower extremity weakness s econdary to lumbar radiculopathy, active tobacco use and dependence, daily alcohol use, daily marijuana use. She was last hospitalized in May for chest pain and underwent Lexiscan stress test revealed no evidence of reversible ischemia and Echocardiogram revealed EF 55-60%, mild mitral regurgitation. Patient was discharged home. In August 2019 she underwent a cardiac catheterization which revealed a chronic total occlusion of the right coronary artery with extensive collaterals from the left system and medical therapy was advised. She was also treated at that time for acute on chronic blood loss anemia secondary to alcoholic gastritis along with Brilinta and aspirin use. She was transfused 1 unit of packed red blood cells. Patient states that she quit smoking in 2018 but continues to drink alcohol but her last intake was a couple weeks ago but patient is vague and avoids questioning. She presents with complaints of "stomach problems" that she can't eat or drink anything that's g radually been worsening possibly going on for greater than 1 month. She states she weighs has problems with her memory. She also complains of abdominal pain and abdominal bloating. She complains of generalized weakness and chronic pain secondary to degenerative disc disease and chronic neuropathy. Patient presented to [facility] emergency center for evaluation. She was afebrile, heart rate initially 99, blood pressure 115/87 and pulse ox 100% on room air. Blood work revealed WBC 8.4, hemoglobin 9.2 and platelet count 108. Sodium 131, potassium 2.1 and was replaced in the emergency center. Chloride 96, CO2 25, BUN 5 and creatinine 0.92, blood sugar 92. Calcium 6.7, phosphorus 2.2, magnesium 1.3, total bilirubin 2, AST 87, ALT 18 and alkaline phosphatase 217. Albumin 2.4. Lactic acid 1.2 and troponin negative. EKG was a sinus rhythm at rate of 96, occasional PVCs, no acute ST changes. Chest x-ray reveals borderline heart size. Mild peribronchial cuffing could reflect bronchitis or chronic asthma. Patient has been admitted to the cardiac stepdown unit and consult requested with gastroenterology. Patient is currently nothing by mouth. 07/21: Patient is requesting pain medication. We will start tramadol but only 3 times a day as needed. She has been seen by GI with plan for EGD this afternoon. Patient has more abdominal distention and bloating and ultrasound will be ordered to assess for ascites. Patient is afebrile, heart rate 81, blood pressure 93/60, pulse ox 90% on room air. Repeat blood work reveals hemoglobin is 7.1, platelet count 122. Sodium 132 and potassium 3.1. Potassium will be replaced with 80 mEq. Creatinine 0.58. Total bilirubin 1.5, AST 69, ALT 17, alkaline phosphatase 202. Amylase 36 and lipase 124. Abdominal ultras ound revealed moderate abdominal ascites, largest pocket in the right lower quadrant. 07/22: Patient underwent EGD yesterday that revealed mild portal hypertension gastropathy. No varices, ulcers or gross abnormalities. Biopsies were obtained of the duodenum, antrum and body, midesophagus. Dr. Crowe started patient on Aldactone 50 mg daily, low-sodium diet. A paracentesis has been ordered for today. Patient has been afebrile, heart rate 77, blood pressure 98/66, pulse ox 97% on room air. Repeat blood work reveals WBC 7.3, hemoglobin 7, platelet count 106. Sodium 131, potassium 3.8, creatinine 0.67. AST 56 and alkaline phosphatase 203. Patient is denying any dysphagia. She states she is able to eat and swallow without difficulty. We will plan to transfuse 1 unit of packed RBCs. Repeat blood work tomorrow and possible discharge tomorrow. Review of Systems Constitutional: No fever, no chills, no night sweats. No weight change. Reports weakness, fatiguey. No daytime sleepiness. EENT: No headache. No blurred vision or double vision, no loss of vision. No loss of Hearing, no ringing in the ears, no dizziness. No nasal drainage or congestion. No epistaxis. No sore throat. Denies dysphagia. Lungs: Denies shortness of breath, Reportscough, Reports sputum production. Reports wheezing. Cardiovascular: Denies chest pain, no lower extremity edema. No palpitations. No paroxysmal nocturnal dyspnea. No orthopnea. No lightheadedness or dizziness. No syncopal episodes. Abdominal: Reports abdominal pain. Reports abdominal bloating worsening. No nausea, vomiting. No diarrhea. No constipation. No bloody or tarry stools.reports loss of appetite. Genitourinary: No dysuria, increased frequency, urgency. No urinary retention. Musculoskeletal: No myalgias. Reports muscle weakness, no gait dysfunction, no frequent falls. No back pain. No neck pain. Integumentary: No wounds, no lesions. No rash or pruritus. No unusual bruisin g. No change in hair or nails. Neurologic: No aphasia. No facial droop. No change in mentation. No head injury. No headache. No paralysis. No paresthesia. Psychiatric: No depression. No anxiety. No mood swings. Endocrine: No abnormal blood sugars. No weight change. No excessive sweating or thirst. No cold intolerance. Physical Examination Gen: This is a 60-year-old female. Patient is resting in bed and appears to be comfortable and in no acute distress. HEENT: Head is atraumatic, normocephalic. Pupils equal, round. Sclerae is anicteric. NECK: Supple. No JVD. No lymphadenopathy. No thyromegaly. LUNGS: Clear to auscultation. No wheezes or rhonchi. No intercostal retractions. HEART: Regular rate and rhythm. No murmur. ABDOMEN: Positive ascites. Soft. Bowel sounds are present. No masses. Mild generalized tenderness. EXTREMITIES: No pedal edema. No calf tenderness. NEUROLOGICAL: Patient is awake, alert and oriented x3. Cranial nerves 2 through 12 are grossly intact. Assessment and Plan 1. Abdominal pain and bloating secondary to ascites. Consult with GI. Discontinue IV fluids. Aldactone 50 mg daily. Paracentesis ordered for today with interventional radiology. Protonix 40 mg IV twice daily, low-sodium diet. 2. Dysphagia of unclear etiology. Consult with GI for possible EGD. Continue Protonix. 3. History of coronary artery disease. Continue aspirin 81 mg daily, Imdur 30 mg daily 4. Electrolyte abnormalities with hyponatremia, hypokalemia, hypocalcemia status post replacement. Repeat blood work in the morning. 5. Alcoholic liver disease with elevated liver function tests, chronic. Pat ient states she has not had alcohol intake for 1 week. Continue thiamine. Patient is on the CIWA protocol 6. Hypertension. Continue amlodipine 5 mg daily. 7. Gastroesophageal reflux disease. Continue Protonix. 8. History of acute GI bleed secondary to alcohol gastritis along with Brilinta and aspirin use, stable. Patient is off Brilinta. 9. History of CVA and left internal carotid artery stenting for critical stenosis in July 2019, stable. 10. Remote history of tobacco use and patient quit in 2018. 11. Marijuana use daily. 12. DVT prophylaxis. Heparin subcu. 13. Anemia of chronic disease. Transfuse 1 unit packed RBCs. Discharge plan: Return home on Sunday Impression and plan of care have been directed as dictated by the signing physician. Gladis Vieyra nurse practitioner acting as scribe for signing physician. Objective - Vital Signs Vital signs: Vital Signs Temp 98.2 F 07/22/20 05:59 Pulse 77 07/22/20 05:59 Resp 18 07/21/20 20:32 BP 98/66 07/22/20 05:59 Pulse Ox 97 07/22/20 05:59 Intake & Output 07/21/20 07/22/20 07/22/20 18:59 06:59 18:59 Intake Total 350 890 Balance 350 890 Intake: IV 50 Intake, IV Titration 300 Amount Sodium Chloride 0.9% 1, 300 000 ml @ 75 mls/hr IV . [id number] [facility] Rx#:[id number] Oral 890 Other: Voiding Method Toilet # Voids 2 - Labs CBC & Chem 7: 07/22/20 05:50 07/22/20 05:50 Labs: Abnormal Lab Results - Last 24 Hours (Table) 07/22/20 07/22/20 Range/Units 05:50 05:50 RBC 2.60 L (3.80-5.40) m/uL Hgb 7.0 L (11.4-16.0) gm/dL Hct 23.5 L (34.0-46.0) % MCHC 29.9 L (31.0-37.0) g/dL RDW 19.8 H (11.5-15.5) % Plt Count 106 L (150-450) k/uL Sodium 131 L (137-145) mmol/L BUN 6 L (7-17) mg/dL Glucose 102 H (74-99) mg/dL Calcium 7.4 L (8.4-10.2) mg/dL AST 56 H (14-36) U/L Alkaline Phosphatase 203 H (38-126) U/L Total Protein 5.0 L (6.3-8.2) g/dL Albumin 2.2 L (3.5-5.0) g/dL
--- NOTE | 2020-07-22 12:24 | US ---
Ultrasound-guided paracentesis. DATE OF EXAM: 07/22/2020 CLINICAL HISTORY: Ascites The procedure was discussed with the patient. The risks, complications, benefits, and alternatives we re discussed and any questions were answered. Informed consent was obtained. The patient was placed s upine on the ultrasound table and prepped and draped in the usual sterile fashion. All elements of maximal barrier technique were utilized. Under ultrasound guidance, access into the right lower quadrant was obtained, via the paracentesis catheter system and direct ultrasound guidanc e. Approximately 3.4 liters of straw-colored fluid was removed. The patient was stable throughout the pr ocedure and remained stable upon discharge from Department of Radiology. Sample sent to pathology for analysis. IMPRESSION: Successful paracentesis under ultrasound guidance.
[2020-07-22 15:58] LABS: Appearance,BF Clear; Nucleated Cells, Body Fluid 19 /uL; RBC, Body Fluid 22 /uL
--- NOTE | 2020-07-22 16:31 | P.PN ---
Subjective Progress Note Date: 07/22/20 Principal diagnosis: Abdominal pain The patient was seen and examined at the bedside. She states she had her paracentesis done this morning and they took off 3.3 L. She states that her abdomen is feeling less distended. She denies any nausea, vomiting, or abdominal pain. Denies any rectal bleeding or melena. Objective - Vital Signs Vital signs: Vital Signs Temp 97.4 F L 07/22/20 11:08 Pulse 69 07/22/20 11:08 Resp 16 07/22/20 11:08 BP 91/62 07/22/20 11:08 Pulse Ox 92 L 07/22/20 11:08 Intake & Output 07/21/20 07/22/20 07/22/20 18:59 06:59 18:59 Intake Total 350 890 Balance 350 890 Intake: IV 50 Intake, IV Titration 300 Amount Sodium Chloride 0.9% 1, 300 000 ml @ 75 mls/hr IV . [id number] [facility] Rx#:[id number] Oral 890 Other: Voiding Method Toilet Toilet # Voids 2 - Exam General appearance: The patient is alert, oriented, in no acute distress. HET: Head is normocephalic and atraumatic. Conjunctiva pink. Sclera anicteric. Neck: Supple without lymphadenopathy. Trachea midline. Heart: S1 S2. Regular rate and rhythm. Lungs: No crackles or wheezes are heard. Abdomen: Soft, nontender, nondistended with bowel sounds. Ascites improved. No guarding or rigidity. Extremities: Normal skin color and turgor. No cyanosis, rash, ulceration, clubbing, or edema. Radial and pedal pulses are 2/4 bilaterally. Neurological: No focal deficits. Alert and oriented 3. - Labs CBC & Chem 7: 07/22/20 05:50 07/22/20 05:50 Labs: Abnormal Lab Results - Last 24 Hours (Table) 07/22/20 07/22/20 07/22/20 Range/Units 05:50 05:50 08:29 RBC 2.60 L (3.80-5.40) m/uL Hgb 7.0 L (11.4-16.0) gm/dL Hct 23.5 L (34.0-46.0) % MCHC 29.9 L (31.0-37.0) g/dL RDW 19.8 H (11.5-15.5) % Plt Count 106 L (150-450) k/uL Sodium 131 L (137-145) mmol/L BUN 6 L (7-17) mg/dL Glucose 102 H (74-99) mg/dL Calcium 7.4 L (8.4-10.2) mg/dL AST 56 H (14-36) U/L Alkaline Phosphatase 203 H (38-126) U/L Total Protein 5.0 L (6.3-8.2) g/dL Albumin 2.2 L (3.5-5.0) g/dL Crossmatch See Detail Assessment and Plan Assessment: (1) Esophageal dysphagia Narrative/Plan: 60-year-old female with multiple medical comorbidities including alcohol abuse f or which she reports one month of abstinence, irritable bowel syndrome, coronary artery disease, prior CVA, hypertension, prior nicotine abuse who presented to the hospital with multiple medical complaints including abdominal pain, bloating, distention, esophageal dysphagia and decreased oral intake. The patient has been seen previously for complaints of abdominal pain and has diagnosis of irritable bowel syndrome currently on Protonix twice daily and dicyclomine as needed in the outpatient setting. She reports symptoms of frequent bloating and gaswith associated decreased oral intake. She feels as though she has solid food dysphagia and food sticking. She reports last EGD was 5-6 years ago with the surgical service. Unclear etiology, may be related to esophagitis, Schatzki's ring,underlying irritable bowel syndrome or other etiology. Current Visit: Yes Status: Acute Code(s): R13.10 - DYSPHAGIA, UNSPECIFIED SNOMED Code(s): 05734233 (2) Alcoholic liver disease Current Visit: Yes Status: Acute Code(s): K70.9 - ALCOHOLIC LIVER DISEASE, UNSPECIFIED SNOMED Code(s): 75794598 (3) Abdominal pain Current Visit: No Status: Acute Code(s): R10.9 - UNSPECIFIED ABDOMINAL PAIN SNOMED Code(s): 68469753 (4) Elevated liver enzymes Current Visit: No Status: Acute Code(s): R74.8 - ABNORMAL LEVELS OF OTHER SERUM ENZYMES SNOMED Code(s): 593667793 Plan: supportive care Aldactone 50 mg ordered Paracentesis with fluid studies ordered Diet as tolerated EGD completed with findings of mild portal hypertensive gastropathy, no esophageal varices or other abnormalities Continue Protonix 40 mg twice daily Extensive discussion with the patient regarding dietary modifications including low gas producing diet Continue management of other medical comorbidities Abstinence from alcohol Continue to monitor CBC, BMP, LFTs Thank you for allowing us to participate in the care of the patient The impression and plan of care has been dictated as directed. I performed a history and examination of this patient, discussed the same with the dictator. I agree with the dictator's note ,documented as a scribe. Any additional findings or plans will be noted.
[2020-07-22] MEDS: traMADol 50 MG TAB PO PRN (22:12)
[2020-07-23 06:06] LABS: Albumin, Fluid Source Ascites
[2020-07-23 07:31] VITALS: BP 89/63; RESP 18; TEMP 98.4
[2020-07-23] MEDS: ASPIRIN 81 MG PO SCH (08:25)
[2020-07-23] MEDS: HEPARIN SODIUM,PORCINE 5,000 UNIT/ML 1 ML VIAL SQ SCH (08:25)
[2020-07-23] MEDS: FOLIC ACID 1 MG TAB PO SCH (08:25)
[2020-07-23] MEDS: THIAMINE 100 MG TAB PO SCH (08:25)
[2020-07-23] MEDS: amLODIPine 10 MG TAB PO SCH (08:25)
[2020-07-23] MEDS: DICYCLOMINE 10 MG CAP PO SCH (08:25)
[2020-07-23] MEDS: SPIRONOLACTONE 25 MG TAB PO SCH (08:25)
[2020-07-23] MEDS: ISOSORBIDE MONONITRATE ER 30 MG TAB.ER.24H PO SCH (08:25)
[2020-07-23] MEDS: PANTOPRAZOLE 40 MG/10 ML VIAL IVP SCH (08:26)
[2020-07-23] MEDS: FLUTICASONE 50MCG/SPRAY NASAL 16GM EA NOSTRIL SCH (08:26)
[2020-07-23 08:31] LABS: Anisocytosis Slight; HCT 32.6 % (34.0-46.0); Hypochromasia Marked; MCH 27.6 pg (25.0-35.0); MCHC 31.1 g/dL (31.0-37.0); MCV 88.8 fL (80.0-100.0); Mean Platelet Volume 9.2; Platelet Count 106 k/uL (150-450); Poikilocytosis Slight; RBC 3.67 m/uL (3.80-5.40); RDW 18.9 % (11.5-15.5); WBC 7.3 k/uL (3.8-10.6)
[2020-07-23 08:38] VITALS: PULSE 78
[2020-07-23 08:41] LABS: HGB 10.1 gm/dL (11.4-16.0)
[2020-07-23 08:49] LABS: ALT 18 U/L (4-34); AST 71 U/L (14-36); African American GFR (CKD) >90 (>60 ml/min/1.73 sqM); Albumin 2.6 g/dL (3.5-5.0); Alkaline Phosphatase 218 U/L (38-126); Anion Gap 4 mmol/L; Blood Urea Nitrogen 6 mg/dL (7-17); Calcium 7.8 mg/dL (8.4-10.2); Carbon Dioxide 25 mmol/L (22-30); Chloride 102 mmol/L (98-107); Glucose 102 mg/dL (74-99); Non-African American GFR(CKD) >90 (>60 ml/min/1.73 sqM); Sodium 131 mmol/L (137-145); Total Bilirubin 1.7 mg/dL (0.2-1.3); Total Protein 5.7 g/dL (6.3-8.2)
[2020-07-23] MEDS ORDERED: SPIRONOLACTONE 25 MG TAB PO SCH ×2 (09:00)
--- NOTE | 2020-07-23 11:57 | P.DS ---
Providers Date of admission: 07/19/20 19:14 Expected date of discharge: 07/23/20 Attending physician: Rema Perrin Consults: 07/19/20 19:17 Consult Physician Stat Consulting Provider: Lauren Howard Consult Reason/Comments: difficulty swallowing feels like things get stuck in esophagus Do you want consulting provider notified?: Yes Primary care physician: Davide العلي [facility] Course: This is a 60-year-old female patient of Dr. العلي with a past medical history of coronary artery disease, hypertension, seasonal ALLERGIES, gastroesophageal reflux disease, CVA lacunar infarct left anterior parietal lobe, cortical infarct, carotid endarterectomy, right lower extremity weakness secondary to lumbar radiculopathy, active tobacco use and dependence, daily alcohol use, daily marijuana use. She was last hospitalized in May for chest pain and underwent Lexiscan stress test revealed no evidence of reversible ischemia and Echocardiogram revealed EF 55-60%, mild mitral regurgitation. Patient was discharged home. In August 2019 she underwent a cardiac catheterization which revealed a chronic total occlusion of the right coronary artery with extensive collaterals from the left system and medical therapy was advised. She was also treated at that time for acute on chronic blood loss anemia secondary to alcoholic gastritis along with Brilinta and aspirin use. She was transfused 1 unit of packed red blood cells. Patient states that she quit smoking in 2018 but continues to drink alcohol but her last intake was a couple weeks ago but patient is vague and avoids questioning. She presents with complaints of "stomach problems" that she can't eat or drink anything that's gradually been worsening possibly going on for greater than 1 month. She states she weighs has problems with her memory. She also complains of abdominal pain and abdominal bloating. She complains of generalized weakness and chronic pain secondary to degenerative disc disease and chronic neuropathy. Patient presented to [facility] emergency center for evaluation. She was afebrile, heart rate initially 99, blood pressure 115/87 and pulse ox 100% on room air. Blood work revealed WBC 8.4, hemoglobin 9.2 and platelet count 108. Sodium 131, potassium 2.1 and was replaced in the emergency center. Chloride 96, CO2 25, BUN 5 and creatinine 0.92, blood sugar 92. Calcium 6.7, phosphorus 2.2, magnesium 1.3, total bilirubin 2, AST 87, ALT 18 and alkaline phosphatase 217. Albumin 2.4. Lactic acid 1.2 and troponin negative. EKG was a sinus rhythm at rate of 96, occasional PVCs, no acute ST changes. Chest x-ray reveals borderline heart size. Mild peribronchial cuffing could reflect bronchitis or chronic asthma. Patient has been admitted to the cardiac stepdown unit and consult requested with gastroenterology. Patient is currently nothing by mouth. 07/21: Patient is requesting pain medication. We will start tramadol but only 3 times a day as needed. She has been seen by GI with plan for EGD this afternoon. Patient has more abdominal distention and bloating and ultrasound will be ordered to assess for ascites. Patient is afebrile, heart rate 81, blood pressure 93/60, pulse ox 90% on room air. Repeat blood work reveals hemoglobin is 7.1, platelet count 122. Sodium 132 and potassium 3.1. Potassium will be replaced with 80 mEq. Creatinine 0.58. Total bilirubin 1.5, AST 69, ALT 17, alkaline phosphatase 202. Amylase 36 and lipase 124. Abdominal ultrasound revealed moderate abdominal ascites, largest pocket in the right lower quadrant. 07/22: Patient underwent EGD yesterday that revealed mild portal hypertension gastropathy. No varices, ulcers or gross abnormalities. Biopsies were obtained of the duodenum, antrum and body, midesophagus. Dr. Crowe started patient on Aldactone 50 mg daily, low-sodium diet. A paracentesis has been ordered for today. Patient has been afebrile, heart rate 77, blood pressure 98/66, pulse ox 97% on room air. Repeat blood work reveals WBC 7.3, hemoglobin 7, platelet count 106. Sodium 131, potassium 3.8, creatinine 0.67. AST 56 and alkaline phosphatase 203. Patient is denying any dysphagia. She states she is able to eat and swallow without difficulty. We will plan to transfuse 1 unit of packed RBCs. Repeat blood work tomorrow and possible discharge tomorrow. 07/23: Repeat hemoglobin is 10.1, platelet count 106, sodium 131, BUN 0.72. Total bilirubin 1.7, AST 71, ALT 18, alkaline phosphatase 218. Patient underwent paracentesis yesterday with removal of 3.5 L. Patient has been afebrile, heart rate 80, blood pressure 89/63, pulse ox 97% on room air. Discussed discharge plan with GI and new prescription provided for Aldactone and Lasix. Patient will be discharged home today in stable condition. Plan for follow-up with her PCP and GI in the next 1-2 weeks. Assessment and Plan 1. Abdominal pain and bloating secondary to ascites. 2. Dysphagia of unclear etiology. 3. History of coronary artery disease. 4. Electrolyte abnormalities with hyponatremia, hypokalemia, hypocalcemia status post replacement. 5. Alcoholic liver disease with elevated liver function tests, chronic. 6. Hypertension. 7. Gastroesophageal reflux disease. 8. History of acute GI bleed secondary to alcohol gastritis along with Brilinta and aspirin use, stable. Patient is off Brilinta. 9. History of CVA and left internal carotid artery stenting for critical stenosis in July 2019, stable. 10. Remote history of tobacco use and patient quit in 2018. 11. Marijuana use daily. 12. Anemia of chronic disease. Discharge plan: Return home on Sunday Impression and plan of care have been directed as dictated by the signing physician. Gladis Vieyra nurse practitioner acting as scribe for signing physician. Patient Condition at Discharge: Good Plan - Discharge Summary Discharge Rx Participant: No New Discharge Prescriptions: New Spironolactone [Aldactone] 50 mg PO DAILY #60 tab Furosemide [Lasix] 20 mg PO DAILY #30 tab Thiamine [Vitamin B-1] 100 mg PO BID-W/MEALS tab Continue Aspirin EC [Ecotrin Low Dose] 81 mg PO DAILY Pantoprazole [Protonix] 40 mg PO BID Isosorbide Mononitrate ER [Imdur] 30 mg PO DAILY Fluticasone Nasal Cocoa [Flonase Nasal Cocoa] 1 spr EA NOSTRIL DAILY amLODIPine [Norvasc] 10 mg PO DAILY Multivitamins, Thera [Multivitamin (formulary)] 1 tab PO DAILY Folic Acid 1 mg PO DAILY Unknown Antacid (Unknown Strength) 1 tab PO DAILY PRN PRN Reason: Heartburn Ibuprofen [Motrin Ib] 200 mg PO DAILY PRN PRN Reason: Pain Dicyclomine [Bentyl] 10 mg PO TID Discharge Medication List Aspirin EC [Ecotrin Low Dose] 81 mg PO DAILY 02/11/19 [History] Isosorbide Mononitrate ER [Imdur] 30 mg PO DAILY 09/10/19 [History] Pantoprazole [Protonix] 40 mg PO BID 09/10/19 [History] Fluticasone Nasal Cocoa [Flonase Nasal Cocoa] 1 spr EA NOSTRIL DAILY 09/12/19 [History] amLODIPine [Norvasc] 10 mg PO DAILY 12/10/19 [History] Folic Acid 1 mg PO DAILY 05/20/20 [History] Multivitamins, Thera [Multivitamin (formulary)] 1 tab PO DAILY 05/20/20 [History] Dicyclomine [Bentyl] 10 mg PO TID 07/19/20 [History] Ibuprofen [Motrin Ib] 200 mg PO DAILY PRN 07/19/20 [History] Unknown Antacid (Unknown Strength) 1 tab PO DAILY PRN 07/19/20 [History] Furosemide [Lasix] 20 mg PO DAILY #30 tab 07/23/20 [Rx] Spironolactone [Aldactone] 50 mg PO DAILY #60 tab 07/23/20 [Rx] Thiamine [Vitamin B-1] 100 mg PO BID-W/MEALS tab 07/23/20 [Rx] Follow up Appointment(s)/Referral(s): Davide العلي MD [Primary Care Provider] - 1 Week (please call office to set up appt. time and date.) Stiven Crowe MD [STAFF PHYSICIAN] - 08/03/20 10:30 am Patient Instructions/Handouts: Spironolactone (By mouth), Furosemide (By mouth) Discharge Disposition: HOME SELF-CARE
[2020-07-23 15:03] VITALS: BMI 26.2
[2020-07-23 16:52] LABS: Ferritin 15.1 ng/mL (10.0-291.0); Iron 16 ug/dL (50-170); Total Iron Binding Capacity 314 ug/dL (228-460)
--- NOTE | 2020-07-26 22:36 | CDI ---
Documentation Clarification Form Date: 07/27/2020 From: Chuck Anne Phone: If you have a question about this query, please contact Odette Woodard, [employer] at [phone] between 8am and 5pm. Admit Date: 07/19/2020 Discharge Date: 07/23/2020 Patient Name: Anna Marie Valladares Visit Number: [id number] ATTENTION: The Clinical Documentation Specialists (CDI) and [facility] Coding Staff appreciate your assistance in clarifying documentation. Please respond to the clarification below the line at the bottom and electronically sign. The CDI & [facility] Coding staff will review the response and follow-up if needed. Please note: Queries are made part of the Legal Health Record. If you have any questions, please contact the author of this message via ITS. Dear Raulito Sears MD., The patients principal diagnosis has not been clearly identified and requires clarification. She presented with the following Hypokalemia, Hypocalcemia, Electrolyte abnormality, Hypomagnesemia History/Risk factors: Asthma,GERD, Polyneuropathy Clinical Indicators: Abdomina Pain, Bloating. Radiology findings: Moderate abdominal ascites, largest pocket in the right lower quadrant Treatment: EGD, Paracentesis EGD shows "Mild portal hypertensive gastropathy". Abdominal pain and bloating secondary to ascites In your professional opinion, can you please clarify which diagnosis, after study, accounted for the patients presenting symptoms and was the reason chiefly responsible for the admission? Ascites Secondary to Portal Hypertension. xx Ascites secondary to Alcoholic Liver disease. Other, Please Specify MTDD
== END 2020-07-23 11:30 | disposition home or self-care (01) | DRG 433 ==
LOC: EC 17:02 → 3SCARD 19:14 → 6NMEDSUR 07-21 18:26
PROVIDERS: ADMIT Family Medicine; ATTEND Family Medicine
PROC: 0DB78ZX Excision of Stomach, Pylorus, Via Natural or Artificial Opening Endoscopic, Diagnostic (ICD-10-PCS; principal; 2020-07-21 08:05)
PROC: 0DB58ZX Excision of Esophagus, Via Natural or Artificial Opening Endoscopic, Diagnostic (ICD-10-PCS; principal; 2020-07-21 08:05)
PROC: 0DB98ZX Excision of Duodenum, Via Natural or Artificial Opening Endoscopic, Diagnostic (ICD-10-PCS; principal; 2020-07-21 08:05)
PROC: 0W9G3ZZ Drainage of Peritoneal Cavity, Percutaneous Approach (ICD-10-PCS; 2020-07-22)
PROC: 30233N1 Transfusion of Nonautologous Red Blood Cells into Peripheral Vein, Percutaneous Approach (ICD-10-PCS; 2020-07-22)
DX: K70.9 Alcoholic liver disease, unspecified (principal); K76.6 Portal hypertension; R18.8 Other ascites; E87.1 Hypo-osmolality and hyponatremia; I25.10 Atherosclerotic heart disease of native coronary artery without angina pectoris; G40.909 Epilepsy, unspecified, not intractable, without status epilepticus; I10 Essential (primary) hypertension; F32.9 Major depressive disorder, single episode, unspecified; F41.9 Anxiety disorder, unspecified; E83.42 Hypomagnesemia; E78.5 Hyperlipidemia, unspecified; E86.0 Dehydration; E87.6 Hypokalemia; E83.51 Hypocalcemia; G89.29 Other chronic pain; K21.9 Gastro-esophageal reflux disease without esophagitis; F12.90 Cannabis use, unspecified, uncomplicated; R13.14 Dysphagia, pharyngoesophageal phase; K31.89 Other diseases of stomach and duodenum; G62.9 Polyneuropathy, unspecified; E83.39 Other disorders of phosphorus metabolism; D63.8 Anemia in other chronic diseases classified elsewhere; I49.3 Ventricular premature depolarization; J45.909 Unspecified asthma, uncomplicated; I25.82 Chronic total occlusion of coronary artery; Z79.82 Long term (current) use of aspirin; Z79.899 Other long term (current) drug therapy; Z88.5 Allergy status to narcotic agent; Z88.7 Allergy status to serum and vaccine; Z86.73 Personal history of transient ischemic attack (TIA), and cerebral infarction without residual deficits; I25.2 Old myocardial infarction; Z90.49 Acquired absence of other specified parts of digestive tract; Z95.5 Presence of coronary angioplasty implant and graft; Z98.890 Other specified postprocedural states; Z87.891 Personal history of nicotine dependence; Z82.5 Family history of asthma and other chronic lower respiratory diseases; Z82.49 Family history of ischemic heart disease and other diseases of the circulatory system; Z80.1 Family history of malignant neoplasm of trachea, bronchus and lung
CPT/HCPCS: 36415; 43239; 49083; 71046; 76705; 80053; 81003; 82042; 82150; 82310; 82728; 83540; 83550; 83605; 83690; 83735; 84100; 84132; 84157; 84484; 85025; 85027; 85610; 85730; 86850; 86900; 86901; 86920; 88305; 89050; 93005; 96365; 99285

== ENCOUNTER 2020-08-19 12:57 | Day surgery (SDC) | payer OTHER ==
[2020-08-19 14:37] LABS: African American GFR (CKD) >90 (>60 ml/min/1.73 sqM); Non-African American GFR(CKD) 87 (>60 ml/min/1.73 sqM)
[2020-08-19 14:40] LABS: Mean Platelet Volume 9.4; Platelet Count 197 k/uL (150-450)
[2020-08-19 15:17] VITALS: RESP 16; TEMP 98.4
[2020-08-19 15:35] LABS: INR 1.2 (<1.2); Prothrombin Time 12.3 sec (9.0-12.0)
[2020-08-19] MEDS: ALBUMIN HUMAN 25% 50 ML in EMPTY BAG 1 BAG IVPB SCH ×4 (16:14→17:45)
[2020-08-19 17:46] VITALS: BP 110/74; PULSE 94
--- NOTE | 2020-08-20 08:45 | US ---
EXAMINATION TYPE: US paracentesis abd w/image DATE OF EXAM: 08/19/2020 CLINICAL HISTORY: Ascites COMPARISON: 07/22/2020 PRISON CLASSIFICATION COUNSELOR: Dr. Marylin Mariscal PROCEDURE: Preprocedure preliminary ultrasound imaging demonstrates large volume ascites. The procedure was discussed with the patient. The risks, complications, benefits, and alternatives we re discussed and any questions were answered. Informed consent was obtained. The patient was placed s upine on the ultrasound table and prepped and draped in the usual sterile fashion. All elements of maximal barrier technique were utilized. Under ultrasound guidance, access into the left lower quadrant was obtained with a 5 Ivorian one-step centesis catheter. Approximately 7.5 liters of clear serous fluid was removed. Catheter was removed and sterile bandage was applied. The patient was stable throughout the procedure and remained stable upon discharge from Department of Radiology. IMPRESSION: Successful ultrasound-guided paracentesis, with removal of 7.5 liters of clear serous fluid.
== END 2020-08-19 17:35 | disposition home or self-care (01) ==
LOC: RADPROMAIN 12:57
PROVIDERS: ATTEND Internal Medicine Gastroenterology
DX: R18.8 Other ascites (principal)
CPT/HCPCS: 82565; 85049; 85610; 36415; 49083; P9047; 88108; 88305

== ENCOUNTER → 2020-08-30 | Outpatient (CLI) | payer OTHER ==
[2020-08-30 16:46] LABS: Anisocytosis Slight; Basophils # (A) 0.1 k/uL (0-0.2); Basophils % (A) 1 %; Eosinophils # (A) 0.1 k/uL (0-0.7); Eosinophils % (A) 1 %; HCT 38.8 % (34.0-46.0); HGB 12.1 gm/dL (11.4-16.0); Hypochromasia Slight; Lymphocytes % (A) 19 %; MCH 28.1 pg (25.0-35.0); MCHC 31.3 g/dL (31.0-37.0); MCV 89.9 fL (80.0-100.0); Mean Platelet Volume 8.4; Monocytes # (A) 0.6 k/uL (0-1.0); Monocytes % (A) 5 %; Neutrophils # (A) 7.8 k/uL (1.3-7.7); Neutrophils % (A) 72 %; Platelet Count 223 k/uL (150-450); RBC 4.32 m/uL (3.80-5.40); RDW 16.9 % (11.5-15.5); WBC 10.8 k/uL (3.8-10.6)
[2020-08-31 00:06] LABS: INR 1.06 (0.90-1.11); Prothrombin Time 11.3 sec (9.9-11.9)
[2020-08-31 03:22] LABS: % Iron Saturation 8.31 (12.00-45.00); ALT 17 U/L (8-44); AST 58 U/L (13-35); African American GFR (CKD) 115.6 (60.0-200.0); Albumin/Globulin Ratio 1.13 (1.60-3.17); Alkaline Phosphatase 187 U/L (41-126); BUN/Creat Ratio 21.67 Ratio (12.00-20.00); Calcium 9.5 mg/dL (8.7-10.3); Carbon Dioxide 28.1 mmol/L (21.6-31.8); Chloride 94 mmol/L (96-109); Chol/HDL Ratio 6.65; Cholesterol 226 mg/dL (0-200); Ferritin 17.8 ng/mL (10.0-291.0); Glucose 103 mg/dL (70-110); Iron 27 ug/dL (50-170); LDL Cholesterol,Calculated 157.2 mg/dL (0.0-131.0); Non-African American GFR(CKD) 99.8 (60.0-200.0); Potassium 3.1 mmol/L (3.5-5.5); Sodium 135 mmol/L (135-145); Total Bilirubin 0.8 mg/dL (0.2-1.2); Total Iron Binding Capacity 325 ug/dL (228-460); Total Protein 6.4 g/dL (6.2-8.2); Uric Acid 4.6 mg/dL (2.9-7.7)
[2020-08-31 03:54] LABS: Hepatitis A Antibody IgM Non-Reactive (Non-Reactive); Hepatitis B Core IgM Non-Reactive (Non-Reactive); Hepatitis B Surface Antigen Non-Reactive (Non-Reactive); Hepatitis C IgG Antibody Non-Reactive (Non-Reactive)
[2020-08-31 05:13] LABS: Folate, Serum >24.0 ng/mL
[2020-08-31 18:13] LABS: HIV 2 AB Non-Reactive (Non-Reactive); HIV AB P24 Non-Reactive (Non-Reactive); HIV P24 AG Non-Reactive (Non-Reactive)
== END | disposition home or self-care (01) ==
LOC: LABWHC1 15:24
PROVIDERS: ATTEND Family Medicine
DX: K70.31 Alcoholic cirrhosis of liver with ascites (principal); M51.9 Unspecified thoracic, thoracolumbar and lumbosacral intervertebral disc disorder; I25.10 Atherosclerotic heart disease of native coronary artery without angina pectoris; Z71.3 Dietary counseling and surveillance; F10.988 Alcohol use, unspecified with other alcohol-induced disorder
CPT/HCPCS: 36415; 80053; 80061; 80074; 82105; 82306; 82607; 82728; 82746; 83540; 83550; 84425; 84439; 84443; 84550; 85025; 85610; 87390; 87522

== ENCOUNTER 2020-10-20 12:20 | Day surgery (SDC) | payer OTHER ==
[2020-10-20 12:31] VITALS: RESP 16; TEMP 97.8
[2020-10-20 13:04] LABS: Mean Platelet Volume 8.9; Platelet Count 250 k/uL (150-450)
[2020-10-20 13:10] LABS: INR 1.1 (<1.2); Prothrombin Time 10.8 sec (9.0-12.0)
[2020-10-20 13:23] LABS: African American GFR (CKD) >90 (>60 ml/min/1.73 sqM); Non-African American GFR(CKD) >90 (>60 ml/min/1.73 sqM)
[2020-10-20] MEDS: ALBUMIN HUMAN 25% 50 ML in EMPTY BAG 1 BAG IVPB SCH ×4 (13:54→14:45)
[2020-10-20 14:58] VITALS: PULSE 94
[2020-10-20 15:10] VITALS: BP 100/64
--- NOTE | 2020-10-21 10:32 | US ---
Ultrasound-guided paracentesis. DATE OF EXAM: 10/20/2020 CLINICAL HISTORY: Ascites The procedure was discussed with the patient. The risks, complications, benefits, and alternatives we re discussed and any questions were answered. Informed consent was obtained. The patient was placed s upine on the ultrasound table and prepped and draped in the usual sterile fashion. All elements of maximal barrier technique were utilized. Under ultrasound guidance, access into the right lower quadrant was obtained, via the paracentesis catheter system and direct ultrasound guidanc e. Approximately 9.4 liters of straw-colored fluid was removed. The patient was stable throughout the pr ocedure and remained stable upon discharge from Department of Radiology. IMPRESSION: Successful paracentesis under ultrasound guidance.
== END 2020-10-20 15:20 | disposition home or self-care (01) ==
LOC: RADPROMAIN 12:20
PROVIDERS: ATTEND Nurse Practitioner
DX: R18.8 Other ascites (principal); R89.7 Abnormal histological findings in specimens from other organs, systems and tissues
CPT/HCPCS: 88108; 88305; 82565; 85049; 85610; 36415; 49083; P9047

== ENCOUNTER 2020-11-20 17:29 | Emergency (ER) | payer OTHER ==
[2020-11-20 17:41] VITALS: RESP 18
--- NOTE | 2020-11-20 18:11 | ED ---
General Adult HPI - General Chief complaint: Recheck/Abnormal Lab/Rx Stated complaint: COUGH Time Seen by Provider: 11/20/20 17:30 Source: patient Mode of arrival: EMS Limitations: no limitations - History of Present Illness Initial comments: 60-year-old female past medical history of asthma, end-stage liver disease with paracentesis q 2 weeks resents emergency room with reported cough. Patient reports that she began having a nonproductive cough earlier today. States that he persistent coughing has caused her to feel short of breath. Denies fevers or chills. No sick contacts with similar symptoms. Denies any chest pain. No lower extremity swelling. No calf pain. Patient denies history of DVT or PE. Reports that she does have some abdominal distention however is not severe enough for her to receive her paracentesis. No abdominal pain. States she is prone to bronchitis. No other alleviating, precipitating or modifying factors - Related Data Home Medications Medication Instructions Recorded Confirmed Aspirin EC [Ecotrin Low Dose] 81 mg PO DAILY 02/11/19 11/29/20 Isosorbide Mononitrate ER [Imdur] 30 mg PO DAILY 09/10/19 11/29/20 Pantoprazole [Protonix] 40 mg PO DAILY 09/10/19 11/29/20 amLODIPine [Norvasc] 10 mg PO DAILY 12/10/19 11/29/20 Ergocalciferol (Vitamin D2) 1 tab PO FR 10/15/20 11/29/20 [Vitamin D2 (50,000 Iu)] Dicyclomine HCl 10 mg PO TID PRN 11/20/20 11/29/20 Multivitamin [Multivitamins Adult 1 tab PO DAILY 11/20/20 11/29/20 Gummies] Furosemide [Lasix] 40 mg PO DAILY 11/29/20 11/29/20 Spironolactone 100 mg PO DAILY 11/29/20 11/29/20 Fluticasone Nasal Prosper [Flonase 1 spray EA NOSTRIL DAILY 11/30/20 11/30/20 Nasal Prosper] Previous Rx's Medication Instructions Recorded Cefuroxime Axetil [Ceftin] 500 mg PO BID 3 Days #6 tab 12/01/20 Thiamine [Vitamin B-1] 100 mg PO BID-W/MEALS 30 Days #60 12/01/20 tab Allergies Allergy/AdvReac Type Severity Reaction Status Date / Time Influenza Virus Vaccines AdvReac Nausea & Verified 11/29/20 07:42 Vomiting morphine AdvReac Nausea & Verified 11/29/20 07:42 Vomiting Review of Systems ROS Statement: Those systems with pertinent positive or pertinent negative responses have been documented in the HPI. ROS Other: All systems not noted in ROS Statement are negative. Past Medical History Past Medical History: Asthma, Coronary Artery Disease (CAD), CVA/TIA, Liver Disease, Myocardial Infarction ([place]), Seizure Disorder Additional Past Medical History / Comment(s): DDD, CVA 06/2019, pt. states they have a blockage in their heart, NERVE DAMAGE GREGORY LEGS, ascites Last Myocardial Infarction Date:: aug 2018 History of Any Multi-Drug Resistant Organisms: None Reported Past Surgical History: Cholecystectomy, Heart Catheterization, Joint Replacement, Orthopedic Surgery Additional Past Surgical History / Comment(s): bartholin gland cyst removal, stent placed, multi paracentesis Past Anesthesia/Blood Transfusion Reactions: No Reported Reaction Past Psychological History: Anxiety, Depression Smoking Status: Current every day smoker Past Alcohol Use History: None Reported, Daily, Occasional Past Drug Use History: Marijuana - Past Family History Mother Family Medical History: Cancer, Congestive Heart Failure (CHF), Coronary Artery Disease (CAD), Hyperlipidemia Additional Family Medical History / Comment(s): Mother at age 85 from lung cancer. Father Family Medical History: Cancer, COPD Additional Family Medical History / Comment(s): Father at age 63 from lung cancer. Brother(s) Additional Family Medical History / Comment(s): Patient has a total of 7 siblings. 5 are alive without any major medical problems she is aware of. 2 siblings have one from alcohol abuse and 1. Coronary artery disease. Daughter(s) Additional Family Medical History / Comment(s): Patient has one daughter with no major medical problems. General Exam Limitations: no limitations General appearance: alert, in no apparent distress Head exam: Present: atraumatic, normocephalic, normal inspection Eye exam: Present: normal appearance, PERRL, EOMI. Absent: scleral icterus, conjunctival injection, periorbital swelling ENT exam: Present: normal exam, mucous membranes moist Neck exam: Present: normal inspection. Absent: tenderness, meningismus, lymphadenopathy Respiratory exam: Present: normal lung sounds bilaterally. Absent: respiratory distress, wheezes, rales, rhonchi, stridor Cardiovascular Exam: Present: normal rhythm, tachycardia, normal heart sounds. Absent: systolic murmur, diastolic murmur, rubs, gallop, clicks GI/Abdominal exam: Present: soft, distended, normal bowel sounds, other (positive fluid wave). Absent: tenderness, guarding, rebound, rigid Extremities exam: Present: normal inspection, full ROM, normal capillary refill. Absent: tenderness, pedal edema, joint swelling, calf tenderness Back exam: Present: normal inspection Neurological exam: Present: alert, oriented X3, CN II-XII intact Psychiatric exam: Present: normal affect, normal mood Skin exam: Present: warm, dry, intact, normal color. Absent: rash Course Vital Signs 11/20/20 11/20/20 11/20/20 17:31 17:40 20:00 Pulse Rate 115 H 99 Respiratory 16 18 18 Rate Blood Pressure 125/83 127/70 O2 Sat by Pulse 98 99 Oximetry EKG Findings - EKG Comments: EKG Findings:: EKG demonstrates a sinus tachycardia with a ventricular rate of 109. SD interval 132. QRS E4. QTC of 471. Inverted T waves in leads V1 through V4. EKG appears similar in morphology from previous EKG Medical Decision Making - Medical Decision Making Upon arrival patient is placed into room 9. A thorough history and physical exam was performed. Laboratory studies are conducted on patient for chest x- ray. Influenza and Covan are negative. Chest x-ray is clear without signs of infiltrate. Patient does saturate 95% without increased worker breathing. I did discuss diagnosis, differential treatment options. At this time the patient will be treated for tracheobronchitis. She was given a dose of Rocephin and azithromycin in the emergency room. Patient also given a dose of steroids. Patient will be discharged home at this time with prescriptions for prednisone, azithromycin Beatrice Fischer. Patient is felt the primary care doctor in 2-4 days for reevaluation. If she has any new or worsening symptoms return to the emergency room. Patient understood this and was discharged home in stable condition - Lab Data Result diagrams: 11/20/20 Unknown 11/20/20 Unknown Lab Results 11/20/20 11/20/20 11/20/20 Range/Units 19:18 Unknown Unknown WBC 13.4 H (3.8-10.6) k/uL RBC 5.37 (3.80-5.40) m/uL Hgb 14.8 (11.4-16.0) gm/dL Hct 45.4 (34.0-46.0) % MCV 84.6 (80.0-100.0) fL MCH 27.5 (25.0-35.0) pg MCHC 32.5 (31.0-37.0) g/dL RDW 18.1 H (11.5-15.5) % Plt Count 327 (150-450) k/uL MPV 6.5 Neutrophils % 58 % Lymphocytes % 34 % Monocytes % 4 % Eosinophils % 1 % Basophils % 2 % Neutrophils # 7.7 (1.3-7.7) k/uL Lymphocytes # 4.6 (1.0-4.8) k/uL Monocytes # 0.5 (0-1.0) k/uL Eosinophils # 0.2 (0-0.7) k/uL Basophils # 0.3 H (0-0.2) k/uL Anisocytosis Slight PT 11.5 (9.0-12.0) sec INR 1.1 (<1.2) APTT 24.1 (22.0-30.0) sec Sodium (137-145) mmol/L Potassium (3.5-5.1) mmol/L Chloride (98-107) mmol/L Carbon Dioxide (22-30) mmol/L Anion Gap mmol/L BUN (7-17) mg/dL Creatinine (0.52-1.04) mg/dL Est GFR (CKD-EPI)AfAm (>60 ml/min/1.73 sqM) Est GFR (CKD-EPI)NonAf (>60 ml/min/1.73 sqM) Glucose (74-99) mg/dL Lactic Ac Sepsis Rflx Y Plasma Lactic Acid Camron (0.7-2.0) mmol/L Calcium (8.4-10.2) mg/dL Total Bilirubin (0.2-1.3) mg/dL AST (14-36) U/L ALT (4-34) U/L Alkaline Phosphatase (38-126) U/L Troponin I (0.000-0.034) ng/mL NT-Pro-B Natriuret Pep pg/mL Total Protein (6.3-8.2) g/dL Albumin (3.5-5.0) g/dL Influenza Type A (PCR) (Not Detectd) Influenza Type B (PCR) (Not Detectd) RSV (PCR) (Not Detectd) SARS-CoV-2 (PCR) (Not Detectd) 11/20/20 11/20/20 11/20/20 Range/Units Unknown Unknown Unknown WBC (3.8-10.6) k/uL RBC (3.80-5.40) m/uL Hgb (11.4-16.0) gm/dL Hct (34.0-46.0) % MCV (80.0-100.0) fL MCH (25.0-35.0) pg MCHC (31.0-37.0) g/dL RDW (11.5-15.5) % Plt Count (150-450) k/uL MPV Neutrophils % % Lymphocytes % % Monocytes % % Eosinophils % % Basophils % % Neutrophils # (1.3-7.7) k/uL Lymphocytes # (1.0-4.8) k/uL Monocytes # (0-1.0) k/uL Eosinophils # (0-0.7) k/uL Basophils # (0-0.2) k/uL Anisocytosis PT (9.0-12.0) sec INR (<1.2) APTT (22.0-30.0) sec Sodium 142 (137-145) mmol/L Potassium 4.2 (3.5-5.1) mmol/L Chloride 101 (98-107) mmol/L Carbon Dioxide 27 (22-30) mmol/L Anion Gap 14 mmol/L BUN 4 L (7-17) mg/dL Creatinine 0.55 (0.52-1.04) mg/dL Est GFR (CKD-EPI)AfAm >90 (>60 ml/min/1.73 sqM) Est GFR (CKD-EPI)NonAf >90 (>60 ml/min/1.73 sqM) Glucose 118 H (74-99) mg/dL Lactic Ac Sepsis Rflx Plasma Lactic Acid Camron 4.7 H* (0.7-2.0) mmol/L Calcium 9.4 (8.4-10.2) mg/dL Total Bilirubin 0.5 (0.2-1.3) mg/dL AST 36 (14-36) U/L ALT 15 (4-34) U/L Alkaline Phosphatase 224 H (38-126) U/L Troponin I <0.012 (0.000-0.034) ng/mL NT-Pro-B Natriuret Pep pg/mL Total Protein 8.2 (6.3-8.2) g/dL Albumin 4.1 (3.5-5.0) g/dL Influenza Type A (PCR) (Not Detectd) Influenza Type B (PCR) (Not Detectd) RSV (PCR) (Not Detectd) SARS-CoV-2 (PCR) (Not Detectd) 11/20/20 11/20/20 Range/Units Unknown Unknown WBC (3.8-10.6) k/uL RBC (3.80-5.40) m/uL Hgb (11.4-16.0) gm/dL Hct (34.0-46.0) % MCV (80.0-100.0) fL MCH (25.0-35.0) pg MCHC (31.0-37.0) g/dL RDW (11.5-15.5) % Plt Count (150-450) k/uL MPV Neutrophils % % Lymphocytes % % Monocytes % % Eosinophils % % Basophils % % Neutrophils # (1.3-7.7) k/uL Lymphocytes # (1.0-4.8) k/uL Monocytes # (0-1.0) k/uL Eosinophils # (0-0.7) k/uL Basophils # (0-0.2) k/uL Anisocytosis PT (9.0-12.0) sec INR (<1.2) APTT (22.0-30.0) sec Sodium (137-145) mmol/L Potassium (3.5-5.1) mmol/L Chloride (98-107) mmol/L Carbon Dioxide (22-30) mmol/L Anion Gap mmol/L BUN (7-17) mg/dL Creatinine (0.52-1.04) mg/dL Est GFR (CKD-EPI)AfAm (>60 ml/min/1.73 sqM) Est GFR (CKD-EPI)NonAf (>60 ml/min/1.73 sqM) Glucose (74-99) mg/dL Lactic Ac Sepsis Rflx Plasma Lactic Acid Camron (0.7-2.0) mmol/L Calcium (8.4-10.2) mg/dL Total Bilirubin (0.2-1.3) mg/dL AST (14-36) U/L ALT (4-34) U/L Alkaline Phosphatase (38-126) U/L Troponin I (0.000-0.034) ng/mL NT-Pro-B Natriuret Pep 176 pg/mL Total Protein (6.3-8.2) g/dL Albumin (3.5-5.0) g/dL Influenza Type A (PCR) Not Detected (Not Detectd) Influenza Type B (PCR) Not Detected (Not Detectd) RSV (PCR) Not Detected (Not Detectd) SARS-CoV-2 (PCR) Not Detected (Not Detectd) Disposition Clinical Impression: COPD (chronic obstructive pulmonary disease), Cough, Acute tracheobronchitis Disposition: HOME SELF-CARE Condition: Stable Instructions (If sedation given, give patient instructions): Acute Bronchitis (ED), COPD (Chronic Obstructive Pulmonary Disease) (DC) Additional Instructions: Please follow-up with your primary care doctor in 2-4 days. Return to the emergency room for any new or worsening symptoms Is patient prescribed a controlled substance at d/c from ED?: No Referrals: Miya Johnson MD [Primary Care Provider] - 1-2 days Time of Disposition: 20:15
[2020-11-20 18:58] LABS: Anisocytosis Slight; Basophils # (A) 0.3 k/uL (0-0.2); Basophils % (A) 2 %; Eosinophils # (A) 0.2 k/uL (0-0.7); Eosinophils % (A) 1 %; HCT 45.4 % (34.0-46.0); HGB 14.8 gm/dL (11.4-16.0); Lymphocytes # (A) 4.6 k/uL (1.0-4.8); Lymphocytes % (A) 34 %; MCH 27.5 pg (25.0-35.0); MCHC 32.5 g/dL (31.0-37.0); MCV 84.6 fL (80.0-100.0); Mean Platelet Volume 6.5; Monocytes # (A) 0.5 k/uL (0-1.0); Monocytes % (A) 4 %; Neutrophils # (A) 7.7 k/uL (1.3-7.7); Neutrophils % (A) 58 %; Platelet Count 327 k/uL (150-450); RBC 5.37 m/uL (3.80-5.40); RDW 18.1 % (11.5-15.5); WBC 13.4 k/uL (3.8-10.6)
[2020-11-20 19:09] LABS: INR 1.1 (<1.2); Partial Thromboplastin Time 24.1 sec (22.0-30.0); Prothrombin Time 11.5 sec (9.0-12.0)
[2020-11-20 19:13] LABS: ALT 15 U/L (4-34); AST 36 U/L (14-36); African American GFR (CKD) >90 (>60 ml/min/1.73 sqM); Albumin 4.1 g/dL (3.5-5.0); Alkaline Phosphatase 224 U/L (38-126); Anion Gap 14 mmol/L; Blood Urea Nitrogen 4 mg/dL (7-17); Calcium 9.4 mg/dL (8.4-10.2); Carbon Dioxide 27 mmol/L (22-30); Chloride 101 mmol/L (98-107); Glucose 118 mg/dL (74-99); Non-African American GFR(CKD) >90 (>60 ml/min/1.73 sqM); Potassium 4.2 mmol/L (3.5-5.1); Sodium 142 mmol/L (137-145); Total Bilirubin 0.5 mg/dL (0.2-1.3); Total Protein 8.2 g/dL (6.3-8.2)
--- NOTE | 2020-11-20 19:38 | XR ---
EXAMINATION TYPE: XR chest 2V DATE OF EXAM: 11/20/2020 COMPARISON: 07/19/2020 HISTORY: Difficulty breathing TECHNIQUE: FINDINGS: Heart and mediastinum are normal. Lungs are clear. Diaphragm is normal. Bony thorax appears normal. IMPRESSION: Normal chest. There is improved inspiration compared to old exam.
[2020-11-20 20:02] VITALS: BP 127/70; PULSE 99
[2020-11-20] MEDS ORDERED: cefTRIAXone IN SWFI 1,000 MG/10 ML SYRINGE IVP STA (20:12)
[2020-11-20] MEDS ORDERED: AZITHROMYCIN 500 MG TAB PO STA (20:13)
[2020-11-20] MEDS ORDERED: predniSONE 20 MG TAB PO STA (20:13)
== END 2020-11-20 20:27 | disposition home or self-care (01) ==
LOC: EC 17:29
DX: J44.0 Chronic obstructive pulmonary disease with (acute) lower respiratory infection (principal); J20.9 Acute bronchitis, unspecified; F17.200 Nicotine dependence, unspecified, uncomplicated; I25.10 Atherosclerotic heart disease of native coronary artery without angina pectoris; I25.2 Old myocardial infarction; K72.90 Hepatic failure, unspecified without coma; G40.909 Epilepsy, unspecified, not intractable, without status epilepticus; Z79.82 Long term (current) use of aspirin; Z79.899 Other long term (current) drug therapy; Z88.5 Allergy status to narcotic agent; Z88.7 Allergy status to serum and vaccine; Z95.5 Presence of coronary angioplasty implant and graft; Z86.73 Personal history of transient ischemic attack (TIA), and cerebral infarction without residual deficits; Z90.49 Acquired absence of other specified parts of digestive tract; Z20.822 Contact with and (suspected) exposure to COVID-19
CPT/HCPCS: 99284 ×2; 96374 ×2; 36415; 93005; 83880; 80053; 83605; 84484; 85025; 85610; 85730; 87636; 71046; J0696; J7512

== ENCOUNTER 2020-11-28 22:39 | Inpatient (IN) | payer OTHER ==
[2020-11-28] MEDS ORDERED: ALBUTEROL NEBULIZED 2.5 MG/3 ML INHALATION STA (22:57)
[2020-11-28] MEDS ORDERED: SODIUM CHLORIDE 0.9% 1,000 ML IV STA ×2 (22:57)
[2020-11-28] MEDS ORDERED: IPRATROPIUM 0.5 MG/2.5 ML NEBU INHALATION STA (22:57)
[2020-11-28] MEDS ORDERED: methylPREDNISolone SOD SUCCI 125 MG/2 ML VIAL IV STA (22:57)
[2020-11-28] MEDS ORDERED: SODIUM CHLORIDE 0.9% 500 ML 500 ML IV STA (22:57)
[2020-11-28] MEDS ORDERED: HYDROmorphone 1 MG/ML 1 ML SYRINGE IVP STA (22:58)
--- NOTE | 2020-11-28 23:06 | ED ---
SOB HPI - General Chief Complaint: Shortness of Breath Stated Complaint: Back pain Time Seen by Provider: 11/28/20 22:51 Source: patient, EMS, RN notes reviewed, old records reviewed Mode of arrival: EMS Limitations: no limitations - History of Present Illness Initial Comments: This is a 60-year-old female to the ER who presents for evaluation, patient is known history of liver disease and alcohol abuse. Patient comes in for inability to breathe anxiety. Generalized abdominal pain. MD Complaint: shortness of breath, cough -: week(s) Severity: moderate Severity scale (1-10): 7 Quality: aching Consistency: constant, intermittent Worsens With: nothing Known History Of: COPD, congestive heart failure, other (Severe liver disease) Context: recent URI, other (Significant alcohol intoxication) Associated Symptoms: cough, sputum production Treatments Prior to Arrival: none - Related Data Home Medications Medication Instructions Recorded Confirmed Aspirin EC [Ecotrin Low Dose] 81 mg PO DAILY 02/11/19 11/29/20 Isosorbide Mononitrate ER [Imdur] 30 mg PO DAILY 09/10/19 11/29/20 Pantoprazole [Protonix] 40 mg PO DAILY 09/10/19 11/29/20 amLODIPine [Norvasc] 10 mg PO DAILY 12/10/19 11/29/20 Ergocalciferol (Vitamin D2) 1 tab PO FR 10/15/20 11/29/20 [Vitamin D2] Dicyclomine HCl 10 mg PO TID PRN 11/20/20 11/29/20 Multivitamin [Multivitamins Adult 1 tab PO DAILY 11/20/20 11/29/20 Gummies] Furosemide [Lasix] 40 mg PO DAILY 11/29/20 11/29/20 Spironolactone 100 mg PO DAILY 11/29/20 11/29/20 Allergies Allergy/AdvReac Type Severity Reaction Status Date / Time Influenza Virus Vaccines AdvReac Nausea & Verified 11/29/20 07:42 Vomiting morphine AdvReac Nausea & Verified 11/29/20 07:42 Vomiting Review of Systems ROS Statement: Those systems with pertinent positive or pertinent negative responses have been documented in the HPI. ROS Other: All systems not noted in ROS Statement are negative. Past Medical History Past Medical History: Asthma, Coronary Artery Disease (CAD), CVA/TIA, Liver Disease, Myocardial Infarction ([place]), Seizure Disorder Additional Past Medical History / Comment(s): DDD, CVA 06/2019, pt. states they have a blockage in their heart, NERVE DAMAGE GREGORY LEGS, ascites Last Myocardial Infarction Date:: aug 2018 History of Any Multi-Drug Resistant Organisms: None Reported Past Surgical History: Cholecystectomy, Heart Catheterization, Joint Replacement, Orthopedic Surgery Additional Past Surgical History / Comment(s): bartholin gland cyst removal, stent placed, multi paracentesis Past Anesthesia/Blood Transfusion Reactions: No Reported Reaction Past Psychological History: Anxiety, Depression Smoking Status: Current every day smoker Past Alcohol Use History: Daily, Occasional Past Drug Use History: Marijuana - Past Family History Mother Family Medical History: Cancer, Congestive Heart Failure (CHF), Coronary Artery Disease (CAD), Hyperlipidemia Additional Family Medical History / Comment(s): Mother at age 85 from lung cancer. Father Family Medical History: Cancer, COPD Additional Family Medical History / Comment(s): Father at age 63 from lung cancer. Brother(s) Additional Family Medical History / Comment(s): Patient has a total of 7 siblings. 5 are alive without any major medical problems she is aware of. 2 siblings have one from alcohol abuse and 1. Coronary artery disease. Daughter(s) Additional Family Medical History / Comment(s): Patient has one daughter with no major medical problems. General Exam Limitations: no limitations General appearance: alert, in no apparent distress, appears intoxicated Head exam: Present: atraumatic, normocephalic, normal inspection Eye exam: Present: normal appearance, PERRL, EOMI. Absent: scleral icterus, conjunctival injection, periorbital swelling ENT exam: Present: normal exam, mucous membranes moist Neck exam: Present: normal inspection. Absent: tenderness, meningismus, lymphadenopathy Respiratory exam: Present: normal lung sounds bilaterally. Absent: respiratory distress, wheezes, rales, rhonchi, stridor Cardiovascular Exam: Present: regular rate, normal rhythm, normal heart sounds. Absent: systolic murmur, diastolic murmur, rubs, gallop, clicks GI/Abdominal exam: Present: soft, normal bowel sounds. Absent: distended, tenderness, guarding, rebound, rigid Extremities exam: Present: normal inspection, full ROM, normal capillary refill. Absent: tenderness, pedal edema, joint swelling, calf tenderness Back exam: Present: normal inspection Neurological exam: Present: alert, oriented X3, CN II-XII intact Psychiatric exam: Present: normal affect, normal mood Skin exam: Present: warm, dry, intact, normal color. Absent: rash Course Vital Signs 11/28/20 11/28/20 11/28/20 22:43 22:49 23:38 Temperature 98.3 F Pulse Rate 101 H 92 Respiratory 20 20 Rate Blood Pressure 143/92 O2 Sat by Pulse 98 Oximetry 11/29/20 11/29/20 00:00 01:05 Temperature 98.2 F Pulse Rate 96 108 H Respiratory 18 Rate Blood Pressure 116/75 O2 Sat by Pulse 98 Oximetry - Reevaluation(s) Reevaluation #1: Medical record is reviewed Patient still feels short of breath with diffuse pain Spoke patient regarding findings, questions answered Medical Decision Making - Medical Decision Making 60 female DF for evaluation known liver cirrhosis severe alcohol intoxication. Patient be admitted for alcohol intoxication pending DTs and monitoring of GI sy mptoms - Lab Data Result diagrams: 11/29/20 03:01 11/28/20 23:40 Lab Results 11/28/20 11/28/20 11/28/20 Range/Units 23:40 23:40 23:40 WBC 14.4 H (3.8-10.6) k/uL RBC 5.17 (3.80-5.40) m/uL Hgb 14.3 (11.4-16.0) gm/dL Hct 43.0 (34.0-46.0) % MCV 83.3 (80.0-100.0) fL MCH 27.6 (25.0-35.0) pg MCHC 33.2 (31.0-37.0) g/dL RDW 18.1 H (11.5-15.5) % Plt Count 222 (150-450) k/uL MPV 6.9 Neutrophils % 59 % Lymphocytes % 30 % Monocytes % 6 % Eosinophils % 2 % Basophils % 1 % Neutrophils # 8.5 H (1.3-7.7) k/uL Lymphocytes # 4.4 (1.0-4.8) k/uL Monocytes # 0.9 (0-1.0) k/uL Eosinophils # 0.2 (0-0.7) k/uL Basophils # 0.2 (0-0.2) k/uL Anisocytosis Slight PT (9.0-12.0) sec INR (<1.2) APTT (22.0-30.0) sec D-Dimer (<0.60) mg/L FEU Sodium 132 L (137-145) mmol/L Potassium 4.0 (3.5-5.1) mmol/L Chloride 94 L (98-107) mmol/L Carbon Dioxide 27 (22-30) mmol/L Anion Gap 11 mmol/L BUN 4 L (7-17) mg/dL Creatinine 0.44 L (0.52-1.04) mg/dL Est GFR (CKD-EPI)AfAm >90 (>60 ml/min/1.73 sqM) Est GFR (CKD-EPI)NonAf >90 (>60 ml/min/1.73 sqM) Glucose 113 H (74-99) mg/dL Lactic Ac Sepsis Rflx Plasma Lactic Acid Camron (0.7-2.0) mmol/L Calcium 8.4 (8.4-10.2) mg/dL Phosphorus 4.1 (2.5-4.5) mg/dL Magnesium 1.8 (1.6-2.3) mg/dL Total Bilirubin 0.6 (0.2-1.3) mg/dL AST 46 H (14-36) U/L ALT 25 (4-34) U/L Alkaline Phosphatase 232 H (38-126) U/L Ammonia (<30) umol/L Creatine Kinase 41 (30-135) U/L Troponin I (0.000-0.034) ng/mL NT-Pro-B Natriuret Pep 216 pg/mL Total Protein 7.0 (6.3-8.2) g/dL Albumin 3.6 (3.5-5.0) g/dL Amylase 82 (30-110) U/L Lipase 255 (23-300) U/L Serum Alcohol 331 H* mg/dL 11/28/20 11/28/20 11/28/20 Range/Units 23:40 23:40 23:52 WBC (3.8-10.6) k/uL RBC (3.80-5.40) m/uL Hgb (11.4-16.0) gm/dL Hct (34.0-46.0) % MCV (80.0-100.0) fL MCH (25.0-35.0) pg MCHC (31.0-37.0) g/dL RDW (11.5-15.5) % Plt Count (150-450) k/uL MPV Neutrophils % % Lymphocytes % % Monocytes % % Eosinophils % % Basophils % % Neutrophils # (1.3-7.7) k/uL Lymphocytes # (1.0-4.8) k/uL Monocytes # (0-1.0) k/uL Eosinophils # (0-0.7) k/uL Basophils # (0-0.2) k/uL Anisocytosis PT 10.5 (9.0-12.0) sec INR 1.0 (<1.2) APTT 22.7 (22.0-30.0) sec D-Dimer 1.73 H (<0.60) mg/L FEU Sodium (137-145) mmol/L Potassium (3.5-5.1) mmol/L Chloride (98-107) mmol/L Carbon Dioxide (22-30) mmol/L Anion Gap mmol/L BUN (7-17) mg/dL Creatinine (0.52-1.04) mg/dL Est GFR (CKD-EPI)AfAm (>60 ml/min/1.73 sqM) Est GFR (CKD-EPI)NonAf (>60 ml/min/1.73 sqM) Glucose (74-99) mg/dL Lactic Ac Sepsis Rflx Plasma Lactic Acid Camron 3.6 H* (0.7-2.0) mmol/L Calcium (8.4-10.2) mg/dL Phosphorus (2.5-4.5) mg/dL Magnesium (1.6-2.3) mg/dL Total Bilirubin (0.2-1.3) mg/dL AST (14-36) U/L ALT (4-34) U/L Alkaline Phosphatase (38-126) U/L Ammonia 17 (<30) umol/L Creatine Kinase (30-135) U/L Troponin I <0.012 (0.000-0.034) ng/mL NT-Pro-B Natriuret Pep pg/mL Total Protein (6.3-8.2) g/dL Albumin (3.5-5.0) g/dL Amylase (30-110) U/L Lipase (23-300) U/L Serum Alcohol mg/dL 11/29/20 Range/Units 00:23 WBC (3.8-10.6) k/uL RBC (3.80-5.40) m/uL Hgb (11.4-16.0) gm/dL Hct (34.0-46.0) % MCV (80.0-100.0) fL MCH (25.0-35.0) pg MCHC (31.0-37.0) g/dL RDW (11.5-15.5) % Plt Count (150-450) k/uL MPV Neutrophils % % Lymphocytes % % Monocytes % % Eosinophils % % Basophils % % Neutrophils # (1.3-7.7) k/uL Lymphocytes # (1.0-4.8) k/uL Monocytes # (0-1.0) k/uL Eosinophils # (0-0.7) k/uL Basophils # (0-0.2) k/uL Anisocytosis PT (9.0-12.0) sec INR (<1.2) APTT (22.0-30.0) sec D-Dimer (<0.60) mg/L FEU Sodium (137-145) mmol/L Potassium (3.5-5.1) mmol/L Chloride (98-107) mmol/L Carbon Dioxide (22-30) mmol/L Anion Gap mmol/L BUN (7-17) mg/dL Creatinine (0.52-1.04) mg/dL Est GFR (CKD-EPI)AfAm (>60 ml/min/1.73 sqM) Est GFR (CKD-EPI)NonAf (>60 ml/min/1.73 sqM) Glucose (74-99) mg/dL Lactic Ac Sepsis Rflx Y Plasma Lactic Acid Camron (0.7-2.0) mmol/L Calcium (8.4-10.2) mg/dL Phosphorus (2.5-4.5) mg/dL Magnesium (1.6-2.3) mg/dL Total Bilirubin (0.2-1.3) mg/dL AST (14-36) U/L ALT (4-34) U/L Alkaline Phosphatase (38-126) U/L Ammonia (<30) umol/L Creatine Kinase (30-135) U/L Troponin I (0.000-0.034) ng/mL NT-Pro-B Natriuret Pep pg/mL Total Protein (6.3-8.2) g/dL Albumin (3.5-5.0) g/dL Amylase (30-110) U/L Lipase (23-300) U/L Serum Alcohol mg/dL - EKG Data -: EKG Interpreted by Me (EDate, same thing fell as he is getting out of his coronavirus lowKG shows ) Disposition Clinical Impression: Alcohol intoxication, Alcohol withdrawal, Shortness of breath, COPD (chronic obstructive pulmonary disease), Hypomagnesemia Disposition: ADMITTED IP TO THIS HOSP Condition: Fair Is patient prescribed a controlled substance at d/c from ED?: No
[2020-11-28] MEDS ORDERED: BUDESONIDE 1 MG/2 ML NEBU INHALATION STA (23:44)
[2020-11-28 23:55] LABS: Anisocytosis Slight; Basophils # (A) 0.2 k/uL (0-0.2); Basophils % (A) 1 %; Eosinophils # (A) 0.2 k/uL (0-0.7); Eosinophils % (A) 2 %; HGB 14.3 gm/dL (11.4-16.0); Lymphocytes # (A) 4.4 k/uL (1.0-4.8); Lymphocytes % (A) 30 %; MCH 27.6 pg (25.0-35.0); MCHC 33.2 g/dL (31.0-37.0); MCV 83.3 fL (80.0-100.0); Mean Platelet Volume 6.9; Monocytes # (A) 0.9 k/uL (0-1.0); Monocytes % (A) 6 %; Neutrophils # (A) 8.5 k/uL (1.3-7.7); Neutrophils % (A) 59 %; Platelet Count 222 k/uL (150-450); RBC 5.17 m/uL (3.80-5.40); RDW 18.1 % (11.5-15.5); WBC 14.4 k/uL (3.8-10.6)
[2020-11-29 00:05] LABS: ALT 25 U/L (4-34); AST 46 U/L (14-36); African American GFR (CKD) >90 (>60 ml/min/1.73 sqM); Albumin 3.6 g/dL (3.5-5.0); Alkaline Phosphatase 232 U/L (38-126); Amylase 82 U/L (30-110); Anion Gap 11 mmol/L; Blood Urea Nitrogen 4 mg/dL (7-17); Calcium 8.4 mg/dL (8.4-10.2); Carbon Dioxide 27 mmol/L (22-30); Chloride 94 mmol/L (98-107); Creatine Kinase 41 U/L (30-135); Glucose 113 mg/dL (74-99); Lipase 255 U/L (23-300); Magnesium 1.8 mg/dL (1.6-2.3); Non-African American GFR(CKD) >90 (>60 ml/min/1.73 sqM); Phosphorus 4.1 mg/dL (2.5-4.5); Sodium 132 mmol/L (137-145); Total Bilirubin 0.6 mg/dL (0.2-1.3)
[2020-11-29 00:10] LABS: Partial Thromboplastin Time 22.7 sec (22.0-30.0); Prothrombin Time 10.5 sec (9.0-12.0)
[2020-11-29 00:23] LABS: Lactic Acid, Venous 3.6 mmol/L (0.7-2.0)
[2020-11-29 00:24] LABS: Alcohol 331 mg/dL
[2020-11-29 00:29] LABS: D-Dimer 1.73 mg/L FEU (<0.60)
[2020-11-29] MEDS ORDERED: LORazepam 2 MG/ML INJ IV PRN ×3 (00:40)
[2020-11-29] MEDS ORDERED: NALOXONE 0.4 MG/ML 1 ML VIAL IV PRN (00:40)
[2020-11-29] MEDS ORDERED: THIAMINE 100 MG/ML 2 ML VIAL IM STA (00:40)
[2020-11-29] MEDS ORDERED: ONDANSETRON 4 MG/2 ML VIAL IVP PRN (02:17)
[2020-11-29] MEDS ORDERED: ONDANSETRON 4 MG/2 ML VIAL ONE (02:34)
[2020-11-29 03:13] LABS: Anisocytosis Slight; HCT 37.1 % (34.0-46.0); MCH 27.5 pg (25.0-35.0); MCHC 32.4 g/dL (31.0-37.0); Mean Platelet Volume 6.7; Platelet Count 152 k/uL (150-450); RBC 4.37 m/uL (3.80-5.40); RDW 18.5 % (11.5-15.5); WBC 14.4 k/uL (3.8-10.6)
[2020-11-29] MEDS: PANTOPRAZOLE 40 MG/10 ML VIAL IVP SCH ×2 (08:01→20:28)
[2020-11-29] MEDS: HYDROmorphone 1 MG/ML 1 ML SYRINGE IVP PRN ×3 (08:20→20:28)
[2020-11-29] MEDS ORDERED: ENOXAPARIN 40 MG/0.4 ML SYRINGE SQ SCH (09:00)
[2020-11-29] MEDS ORDERED: TRIMETHOBENZAMIDE 300 MG CAP PO PRN (11:01)
[2020-11-29] MEDS ORDERED: IPRATROPIUM-ALBUTEROL 3 ML NEB INHALATION PRN (13:57)
--- NOTE | 2020-11-29 14:01 | P.HPIM ---
History of Present Illness Patient 60-year-old female was admitted with multiple complaints including shortness of breath cough without any significant sputum production. Patient does have history of alcohol cirrhosis can use to drink alcohol patient received she started drinking again about 2 weeks ago. Patient was also complaining of lightheadedness had an episode of hematemesis. Gastroenterology was consulted patient will undergo upper GI endoscopy tomorrow. Patient does have lactic acidosis as well. Patient doesn't have any fever chills but does have leukocytosis. Patient denied any dysuria significant abdominal pain or tenderness. Review of Systems REVIEW OF SYSTEMS: CONSTITUTIONAL: As mentioned in HPI HEENT: No recent visual problems or hearing problems. Denied any sore throat. CARDIOVASCULAR: No chest pain, orthopnea, PND, no palpitations, no syncope. PULMONARY: no hemoptysis. GASTROINTESTINAL: No diarrhea, no nausea, no vomiting, no abdominal pain. NEUROLOGICAL: No headaches, no weakness, no numbness. HEMATOLOGICAL: Denies any bleeding or petechiae. GENITOURINARY: Denies any burning micturition, frequency, or urgency. MUSCULOSKELETAL/RHEUMATOLOGICAL: Denies any joint pain, swelling, or any muscle pain. ENDOCRINE: Denies any polyuria or polydipsia. The rest of the 14-point review of systems is negative. Past Medical History Past Medical History: Asthma, Coronary Artery Disease (CAD), CVA/TIA, Liver Disease, Myocardial Infarction (HI), Seizure Disorder Additional Past Medical History / Comment(s): DDD, CVA 06/2019, pt. states they have a blockage in their heart, NERVE DAMAGE GREGORY LEGS, ascites Last Myocardial Infarction Date:: aug 2018 History of Any Multi-Drug Resistant Organisms: None Reported Past Surgical History: Cholecystectomy, Heart Catheterization, Joint Replacement, Orthopedic Surgery Additional Past Surgical History / Comment(s): bartholin gland cyst removal, stent placed, multi paracentesis Past Anesthesia/Blood Transfusion Reactions: No Reported Reaction Past Psychological History: Anxiety, Depression Smoking Status: Current every day smoker Past Alcohol Use History: Daily, Occasional Past Drug Use History: Marijuana - Past Family History Mother Family Medical History: Cancer, Congestive Heart Failure (CHF), Coronary Artery Disease (CAD), Hyperlipidemia Additional Family Medical History / Comment(s): Mother at age 85 from lung cancer. Father Family Medical History: Cancer, COPD Additional Family Medical History / Comment(s): Father at age 63 from lung cancer. Brother(s) Additional Family Medical History / Comment(s): Patient has a total of 7 siblings. 5 are alive without any major medical problems she is aware of. 2 siblings have one from alcohol abuse and 1. Coronary artery disease. Daughter(s) Additional Family Medical History / Comment(s): Patient has one daughter with no major medical problems. Medications and Allergies Home Medications Medication Instructions Recorded Confirmed Type Aspirin EC [Ecotrin Low Dose] 81 mg PO DAILY 02/11/19 11/29/20 History Isosorbide Mononitrate ER [Imdur] 30 mg PO DAILY 09/10/19 11/29/20 History Pantoprazole [Protonix] 40 mg PO DAILY 09/10/19 11/29/20 History amLODIPine [Norvasc] 10 mg PO DAILY 12/10/19 11/29/20 History Ergocalciferol (Vitamin D2) 1 tab PO FR 10/15/20 11/29/20 History [Vitamin D2] Dicyclomine HCl 10 mg PO TID PRN 11/20/20 11/29/20 History Multivitamin [Multivitamins Adult 1 tab PO DAILY 11/20/20 11/29/20 History Gummies] Furosemide [Lasix] 40 mg PO DAILY 11/29/20 11/29/20 History Spironolactone 100 mg PO DAILY 11/29/20 11/29/20 History Allergies Allergy/AdvReac Type Severity Reaction Status Date / Time Influenza Virus Vaccines AdvReac Nausea & Verified 11/29/20 07:42 Vomiting morphine AdvReac Nausea & Verified 11/29/20 07:42 Vomiting Physical Exam Vitals: Vital Signs Temp Pulse Pulse Resp BP BP BP 11/29/20 11:00 97.7 F 101 H 17 143/96 11/29/20 04:39 119/67 11/29/20 04:29 98.4 F 110 H 16 79/54 11/29/20 01:53 98.0 F 125 H 16 115/84 11/29/20 01:05 98.2 F 108 H 18 116/75 11/29/20 00:00 96 11/28/20 23:38 92 11/28/20 22:49 20 11/28/20 22:43 98.3 F 101 H 20 143/92 Pulse Ox 11/29/20 11:00 98 11/29/20 04:39 11/29/20 04:29 97 11/29/20 01:53 96 11/29/20 01:05 98 11/29/20 00:00 11/28/20 23:38 11/28/20 22:49 11/28/20 22:43 98 Intake and Output 11/28/20 11/29/20 11/29/20 22:59 06:59 14:59 Intake Total 590 Balance 590 Intake: Oral 590 Other: # Voids 1 Weight 53.977 kg 53.977 kg PHYSICAL EXAMINATION: GENERAL: The patient is alert and oriented x3, not in any acute distress. Well developed, well nourished. HEENT: Pupils are round and equally reacting to light. EOMI. No scleral icterus. No conjunctival pallor. Normocephalic, atraumatic. No pharyngeal erythema. No thyromegaly. CARDIOVASCULAR: S1 and S2 present. No murmurs, rubs, or gallops. PULMONARY: Chest is clear to auscultation, no wheezing or crackles. ABDOMEN: Soft, distended does have a fluid shift. MUSCULOSKELETAL: No joint swelling or deformity. EXTREMITIES: No cyanosis, clubbing, or pedal edema. NEUROLOGICAL: Significant generalized weakness, no focal deficits SKIN: No rashes. Results CBC & Chem 7: 11/29/20 03:01 11/28/20 23:40 Labs: Abnormal Lab Results - Last 24 Hours (Table) 11/28/20 11/28/20 11/28/20 Range/Units 23:40 23:40 23:40 WBC 14.4 H (3.8-10.6) k/uL RDW 18.1 H (11.5-15.5) % Neutrophils # 8.5 H (1.3-7.7) k/uL D-Dimer 1.73 H (<0.60) mg/L FEU Sodium 132 L (137-145) mmol/L Chloride 94 L (98-107) mmol/L BUN 4 L (7-17) mg/dL Creatinine 0.44 L (0.52-1.04) mg/dL Glucose 113 H (74-99) mg/dL Plasma Lactic Acid Camron (0.7-2.0) mmol/L AST 46 H (14-36) U/L Alkaline Phosphatase 232 H (38-126) U/L Serum Alcohol 331 H* mg/dL 11/28/20 11/29/20 11/29/20 Range/Units 23:40 03:01 03:01 WBC 14.4 H (3.8-10.6) k/uL RDW 18.5 H (11.5-15.5) % Neutrophils # (1.3-7.7) k/uL D-Dimer (<0.60) mg/L FEU Sodium (137-145) mmol/L Chloride (98-107) mmol/L BUN (7-17) mg/dL Creatinine (0.52-1.04) mg/dL Glucose (74-99) mg/dL Plasma Lactic Acid Camron 3.6 H* 4.7 H* (0.7-2.0) mmol/L AST (14-36) U/L Alkaline Phosphatase (38-126) U/L Serum Alcohol mg/dL 11/29/20 11/29/20 11/29/20 Range/Units 06:11 09:25 12:43 WBC (3.8-10.6) k/uL RDW (11.5-15.5) % Neutrophils # (1.3-7.7) k/uL D-Dimer (<0.60) mg/L FEU Sodium (137-145) mmol/L Chloride (98-107) mmol/L BUN (7-17) mg/dL Creatinine (0.52-1.04) mg/dL Glucose (74-99) mg/dL Plasma Lactic Acid Camron 5.8 H* 5.0 H* 4.4 H* (0.7-2.0) mmol/L AST (14-36) U/L Alkaline Phosphatase (38-126) U/L Serum Alcohol mg/dL Thrombosis Risk Factor Assmnt - Choose All That Apply Any of the Below Risk Factors Present?: Yes Each Factor Represents 1 point: Age 41-60 years, Serious lung disease incl. pneumonia (< 1month) Thrombosis Risk Factor Assessment Total Risk Factor Score: 2 Thrombosis Risk Factor Assessment Level: Low Risk Assessment and Plan Plan: -Short of breath, most probably secondary to bronchitis patient will be continued on inhalational treatments. Considering her upper GI bleed which may be secondary to variceal bleed she may benefit from antibodies because of which are started on Rocephin. Chest x-ray will be obtained. -Severe generalized weakness seconded to cirrhosis and continued alcohol use. Physical therapy and occupation therapy will evaluate the patient patient will need placement most probably in subacute rehabitation Alcohol abuse: Patient is on withdrawal precautions and extensive counseling regarding alcohol use was provided -Lactic acidosis doses: Secondary to cirrhosis will hold off on diuretics temporarily will lead given IV fluids and see if that will make any difference and lactic acid levels. May be bit intravascularly volume depleted because of her GI bleed and excess alcohol use. -Alcoholic gastritis: Patient is on Protonix which will be continued -acute upper GI bleed either variceal bleed or bleed secondary to gastritis continue with Protonix -COPD with mild acute exacerbation can you with inhalational treatments -Continued nicotine use: Counseling was provided -Coronary artery disease -Depression
--- NOTE | 2020-11-29 14:59 | CONS ---
CONSULTATION DATE OF DICTATION: November 29, 2020. REASON FOR CONSULTATION: Acute upper gastrointestinal bleed. HISTORY OF PRESENT ILLNESS: The patient is a 60-year-old pleasant white female with history of alcohol abuse, admitted to the hospital with shortness of breath and one episode of hematemesis. The patient apparently threw up bright red blood early this morning. It was moderate amount and had some epigastric discomfort. Since being in the hospital she had no further episodes of bleeding. She has a history of alcoholic cirrhosis of the liver with portal hypertension. She had an upper endoscopy done by Dr. Crowe in July of 2020 that showed mild gastritis and no evidence of esophageal varices. The patient follows up in our office. The patient was diagnosed with alcoholic liver disease and ascites requiring large- volume paracentesis on a frequent basis. The last one was done on October 21 and 9 L of fluid was removed. She remains on diuretics on an outpatient basis with Aldactone 100 mg daily and Lasix 40 mg daily. Since being in the hospital, she has no further episodes of hematemesis. She does complain of some abdominal discomfort. No rectal bleeding or melena. PAST MEDICAL HISTORY: Her past medical history is significant for coronary artery disease, history of chronic liver disease with liver cirrhosis, seizure disorder, asthma. PAST SURGICAL HISTORY: Cholecystectomy, cardiac catheterization. SOCIAL HISTORY: Chronic smoker, history of heavy alcohol abuse, quit drinking about 5 months ago, but she started drinking again and alcohol level was 327 at the time of admission to the hospital. FAMILY HISTORY: Mother congestive heart failure, coronary artery disease, hyperlipidemia. Father had lung cancer and COPD. REVIEW OF SYSTEMS: CARDIOPULMONARY: No chest pain or shortness of breath. GENITOURINARY: No dysuria or hematuria. MUSCULOSKELETAL: Unremarkable. SKIN: Unremarkable. ENDOCRINE: Unremarkable. PSYCHIATRIC: Unremarkable. History of anxiety and depression. NEUROLOGIC: Unremarkable. ENT/VISION: Unremarkable. CONSTITUTIONAL: No recent weight loss. No fever, chills, night sweats. HEMATOLOGY: Unremarkable. PHYSICAL EXAMINATION: She appears comfortable. No apparent distress. Vital signs are stable. Blood pressure is 143/96, pulse rate 101, temperature 97.7. HEENT EXAMINATION: Unremarkable. Conjunctivae pink. Sclerae anicteric. Oral cavity no lesions. NECK: No JVD or lymph node enlargement. CHEST: Was clear to auscultation. HEART: Regular rate and rhythm. ABDOMEN: Soft, it was nontender, slightly distended. Bowel sounds are positive. There was some free fluid noted in the abdomen. Liver was ballotable. EXTREMITIES: No pedal edema. NEURO: She is alert, oriented to name and place, not to time. LABS: Labs from last night, WBC is 14.4, hemoglobin 14.3, today hemoglobin is 12. Platelets normal. PT, INR within normal limits. BUN is 4, creatinine 0.44. Plasma lactic acid was 3.6 and repeat one was 5. AST and ALT are 46 and 25 respectively. T-bilirubin 0.6, alkaline phosphatase 233. Serum alcohol level is 331. IMPRESSION: 1. This is a lady with history of alcoholic liver disease with cirrhosis, portal hypertension and ascites requiring paracentesis on outpatient basis. She presents to the hospital with an episode of hematemesis. She states it was moderate amount, but hemoglobin remains stable and the last one this morning was 12.5 g/dL. No further episodes of gastrointestinal bleed since being in the hospital. Her last upper endoscopy in July of 2020 showed mild gastritis and mild portal hypertensive gastropathy. 2. Ascites on Lasix 40 mg daily and Aldactone 100 mg daily. Last paracentesis was in October of 2020. 3. Heavy alcohol abuse. She states she quit drinking about 5 months ago, but she has had a few drinks prior to coming to the hospital and alcohol level was 321. 4. Mild elevation of serum transaminases. 5. Lactic acidosis. RECOMMENDATIONS: 1. Start on a clear liquid diet. 2. Continue Protonix 40 mg twice daily. 3. We will proceed with upper endoscopy tomorrow. I discussed with the patient risks, benefits and complications and she is agreeable to it. In the meantime, will follow CBC on a daily basis. Thank you for this consultation. MMODL / IJN: [id number] /
--- NOTE | 2020-11-29 15:39 | XR ---
EXAMINATION TYPE: XR chest 2V DATE OF EXAM: 11/29/2020 COMPARISON: Right chest x-ray 11/20/2020 HISTORY: Shortness of breath, rule out pneumonia TECHNIQUE: Frontal and lateral views of the chest are obtained. FINDINGS: There is no focal air space opacity, pleural effusion, or pneumothorax seen. The cardiac silhouette size is within normal limits. There are coronary artery calcifications. The osseous struc tures are intact. Aorta is dense. IMPRESSION: No acute cardiopulmonary process.
[2020-11-29] MEDS: THIAMINE 100 MG TAB PO SCH (16:29)
[2020-11-29] MEDS: SODIUM CHLORIDE 0.9% 1,000 ML IV SCH (17:45)
[2020-11-30] MEDS: IPRATROPIUM-ALBUTEROL 3 ML NEB INHALATION PRN ×4 (00:17→21:02)
[2020-11-30] MEDS: HYDROmorphone 1 MG/ML 1 ML SYRINGE IVP PRN ×4 (00:52→23:08)
[2020-11-30] MEDS: SODIUM CHLORIDE 0.9% 1,000 ML IV SCH ×2 (00:54→18:08)
[2020-11-30 05:22] LABS: Anisocytosis Slight; Basophils % (A) 0 %; Eosinophils % (A) 0 %; HCT 31.1 % (34.0-46.0); HGB 10.1 gm/dL (11.4-16.0); Lymphocytes # (A) 1.1 k/uL (1.0-4.8); Lymphocytes % (A) 9 %; MCH 28.1 pg (25.0-35.0); MCHC 32.6 g/dL (31.0-37.0); MCV 86.2 fL (80.0-100.0); Mean Platelet Volume 7.1; Monocytes # (A) 0.6 k/uL (0-1.0); Monocytes % (A) 5 %; Neutrophils # (A) 10.2 k/uL (1.3-7.7); Neutrophils % (A) 84 %; RBC 3.61 m/uL (3.80-5.40); RDW 18.3 % (11.5-15.5); WBC 12.1 k/uL (3.8-10.6)
[2020-11-30 05:50] LABS: Platelet Count 98 k/uL (150-450)
[2020-11-30] MEDS: THIAMINE 100 MG TAB PO SCH ×2 (08:22→18:08)
[2020-11-30] MEDS: ISOSORBIDE MONONITRATE ER 30 MG TAB.ER.24H PO SCH (08:22)
[2020-11-30] MEDS: MULTIVITAMINS, THERA 1 EACH TAB PO SCH (08:22)
[2020-11-30] MEDS: PANTOPRAZOLE 40 MG/10 ML VIAL IVP SCH ×2 (08:22→20:27)
[2020-11-30 09:42] LABS: African American GFR (CKD) 122.8 (60.0-200.0); Albumin 3.4 g/dL (3.80-4.90); Albumin/Globulin Ratio 1.7 (1.60-3.17); Anion Gap 12.6 mmol/L (4.00-12.00); Calcium 8.6 mg/dL (8.7-10.3); Carbon Dioxide 29.4 mmol/L (21.6-31.8); Non-African American GFR(CKD) 105.9 (60.0-200.0); Potassium 4.2 mmol/L (3.5-5.5); Total Bilirubin 0.4 mg/dL (0.3-1.2); Total Protein 5.4 g/dL (6.2-8.2)
[2020-11-30] MEDS ORDERED: IV FLUID CONTINUATION 1,000 ML IV ONE (12:44)
[2020-11-30] MEDS ORDERED: PROPOFOL 10 MG/ML 20 ML VIAL IV ONE (12:47)
--- NOTE | 2020-11-30 13:00 | P.PCN ---
Date of Procedure: 11/30/20 Procedure(s) Performed: BRIEF HISTORY: Patient is a 60-year-old, pleasant, -year-old white female scheduled for an upper endoscopy as part of evaluation of acute upper GI bleed. She had 1 episode of hematemesis yesterday. She is as history of known alcoholic liver cirrhosis. PROCEDURE PERFORMED: Esophagogastroduodenoscopy. PREOPERATIVE DIAGNOSIS: acute upper GI bleed. IV sedation per anesthesia. PROCEDURE: After informed consent was obtained, the patient was brought into the endoscopy unit. IV sedation was administered by Anesthesia under continuous monitoring. Initially the Olympus GIF-140 video endoscope was inserted into the mouth. Esophagus intubated without any difficulty. It was gradually advanced into the stomach and duodenum and carefully examined. The bulb and the second part of the duodenum appeared normal. The scope at this time was withdrawn to the stomach, adequately insufflated with air, and upon careful examination, mucosa of the antrum, body, cardia and the fundus had changes consistent with severe moderate to severe portal hypertensive gastropathy. There were no gastric varices noted. The scope was then withdrawn into the esophagus. The GE junction was located at 39 cm from the incisors. The esophagus appeared normal. There were no erosions or ulcerations seen, no esophageal varices and the patient tolerated the procedure well. IMPRESSION: 1. Severe portal hypertensive gastropathy with no active bleeding. 2. Mild antral gastritis. 3. No evidence of gastric or esophageal varices. RECOMMENDATIONS: The findings of this examination were discussed with the patient.. Her diet will be advanced as tolerated. Advised abstinence from alcohol..
--- NOTE | 2020-11-30 15:41 | P.PN ---
Subjective Progress Note Date: 11/30/20 Patient 60-year-old female was admitted with multiple complaints including shortness of breath cough without any significant sputum production. Patient does have history of alcohol cirrhosis can use to drink alcohol patient received she started drinking again about 2 weeks ago. Patient was also complaining of lightheadedness had an episode of hematemesis. Gastroenterology was consulted patient will undergo upper GI endoscopy tomorrow. Patient does have lactic acidosis as well. Patient doesn't have any fever chills but does have leukocytosis. Patient denied any dysuria significant abdominal pain or tenderness. 11/30/2020 Patient is seen and evaluated in follow-up currently awaiting to undergo upper endoscopy with GI Dr. Howard she was having some possible GI bleed and emesis. Patient does have significant history for cirrhosis and does have some abdominal distention but denies discomfort at this time. Patient states she actually feels somewhat improved and feels she has gotten some of her appetite back although is currently nothing by mouth for the procedure. Will Resume diet aft er the endoscopy. Patient continues to be weak although states she is getting around. Will have PT/OT evaluate the patient. Patient is maintained on IV antibiotics in the form of ceftriaxone and will continue at this time. Patient to continue with bronchodilators as well. She is maintained on CIWA protocol although has not required any Ativan the last 2 days. Review of systems: Constitutional: No reports of fatigue, fever, or chills Cardiovascular: No reports of chest pain or palpitations Respiratory: No reports of shortness of breath , patient reports cough GI: No reports of nausea, vomiting, or diarrhea : No reports of dysuria or retention Neurovascular: rePorts mild weakness All medications have been reviewed Objective - Vital Signs Vital signs: Vital Signs Temp 97.9 F 11/30/20 11:32 Pulse 112 H 11/30/20 11:32 Resp 18 11/30/20 11:32 BP 104/66 11/30/20 11:32 Pulse Ox 93 L 11/30/20 11:32 Intake & Output 11/29/20 11/30/20 11/30/20 18:59 06:59 18:59 Intake Total 50 900 Balance 50 900 Intake: Intake, IV Titration 50 900 Amount Sodium Chloride 0.9% 1, 900 000 ml @ 75 mls/hr IV . [id number] [facility] Rx#:[id number] cefTRIAXone 1 gm In 50 Sodium Chloride 0.9% 50 ml @ 100 mls/hr IVPB Q24HR [facility] Rx#:[id number] Other: # Voids 2 1 1 - Exam GENERAL: The patient is alert and oriented x3, not in any acute distress. Well developed, well nourished. HEENT: Pupils are round and equally reacting to light. EOMI. No scleral icterus. No conjunctival pallor. Normocephalic, atraumatic. No pharyngeal erythema. No thyromegaly. CARDIOVASCULAR: S1 and S2 present. No murmurs, rubs, or gallops. PULMONARY: Diminished breath sounds at the bases with some scattered rhonchi noted ABDOMEN: Soft, distended does have a fluid shift. Non-tender MUSCULOSKELETAL: No joint swelling or deformity. EXTREMITIES: No cyanosis, clubbing, or pedal edema. NEUROLOGICAL: Significant generalized weakness, no focal deficits SKIN: No rashes. - Labs CBC & Chem 7: 11/30/20 04:44 11/30/20 04:44 Labs: Abnormal Lab Results - Last 24 Hours (Table) 11/29/20 11/30/20 11/30/20 Range/Units 12:43 04:44 04:44 WBC 12.1 H (3.8-10.6) k/uL RBC 3.61 L (3.80-5.40) m/uL Hgb 10.1 L (11.4-16.0) gm/dL Hct 31.1 L (34.0-46.0) % RDW 18.3 H (11.5-15.5) % Plt Count 98 L (150-450) k/uL Neutrophils # 10.2 H (1.3-7.7) k/uL Sodium 133 L (135-145) mmol/L Chloride 91 L (96-109) mmol/L Anion Gap 12.60 H (4.00-12.00) mmol/L Creatinine 0.5 L (0.6-1.5) mg/dL Glucose 122 H (70-110) mg/dL Plasma Lactic Acid Camron 4.4 H* (0.7-2.0) mmol/L Calcium 8.6 L (8.7-10.3) mg/dL Alkaline Phosphatase 189 H (41-126) U/L Total Protein 5.4 L (6.2-8.2) g/dL Albumin 3.40 L (3.80-4.90) g/dL 11/30/20 11/30/20 Range/Units 04:44 08:01 WBC (3.8-10.6) k/uL RBC (3.80-5.40) m/uL Hgb (11.4-16.0) gm/dL Hct (34.0-46.0) % RDW (11.5-15.5) % Plt Count (150-450) k/uL Neutrophils # (1.3-7.7) k/uL Sodium (135-145) mmol/L Chloride (96-109) mmol/L Anion Gap (4.00-12.00) mmol/L Creatinine (0.6-1.5) mg/dL Glucose (70-110) mg/dL Plasma Lactic Acid Camron 3.8 H* 4.6 H* (0.7-2.0) mmol/L Calcium (8.7-10.3) mg/dL Alkaline Phosphatase (41-126) U/L Total Protein (6.2-8.2) g/dL Albumin (3.80-4.90) g/dL Assessment and Plan Assessment: -Short of breath, most probably secondary to bronchitis patient will be continued on inhalational treatments. Considering her upper GI bleed which may be secondary to variceal bleed will continue with IV ceftriaxone at this time and monitor closely. -Severe generalized weakness secondary to cirrhosis and continued alcohol use. PT/OT to evaluate the patient. Patient at home living situation is poor and patient has been weak and is a daily drinker and may need rehab upon discharge. Will consult social work. -Alcohol abuse: To continue with CIWA protocol and monitor closely for signs of withdrawal -Lactic acidosis Secondary to cirrhosis, continue to hold diuretics and continue with IV fluids until the a.m. and repeat lactic. -Alcoholic gastritis: Patient is on Protonix which will be continued -acute upper GI bleed either variceal bleed or bleed secondary to gastritis continue with Protonix, patient scheduled to undergo upper GI endoscopy today -COPD with mild acute exacerbation; continue with DuoNeb's -Continued nicotine use: Counseling was provided -Coronary artery disease -Depression -Full code Plan: Continue with current medications. Patient is currently nothing by mouth as she is undergoing upper GI endoscopy and will await report. Will continue with gentle IV hydration and repeat a.m. labs. Patient continues to have abdominal distention although is denying any pain at this time although has recently undergone multiple paracentesis. Will consult interventional radiology for possible paracentesis tomorrow. Continue with CIWA protocol and monitor closely. PT/OT to evaluate the patient and will consult social work. Further recommendations to follow.
[2020-11-30] MEDS ORDERED: FLUTICASONE 50MCG/SPRAY NASAL 16GM EA NOSTRIL PRN (18:57)
[2020-12-01] MEDS: HYDROmorphone 1 MG/ML 1 ML SYRINGE IVP PRN ×2 (03:07→08:23)
[2020-12-01 06:47] LABS: Anisocytosis Slight; Basophils # (A) 0.1 k/uL (0-0.2); Basophils % (A) 1 %; Eosinophils # (A) 0.1 k/uL (0-0.7); Eosinophils % (A) 1 %; HCT 36.4 % (34.0-46.0); HGB 11.3 gm/dL (11.4-16.0); Hypochromasia Moderate; Lymphocytes # (A) 2.2 k/uL (1.0-4.8); Lymphocytes % (A) 21 %; MCH 27.9 pg (25.0-35.0); MCV 90.1 fL (80.0-100.0); Monocytes # (A) 0.4 k/uL (0-1.0); Monocytes % (A) 4 %; Neutrophils # (A) 7.7 k/uL (1.3-7.7); Neutrophils % (A) 72 %; RBC 4.04 m/uL (3.80-5.40); RDW 18.3 % (11.5-15.5); WBC 10.7 k/uL (3.8-10.6)
[2020-12-01 06:49] LABS: Platelet Count 94 k/uL (150-450)
[2020-12-01] MEDS: THIAMINE 100 MG TAB PO SCH (08:18)
[2020-12-01] MEDS: MULTIVITAMINS, THERA 1 EACH TAB PO SCH (08:18)
[2020-12-01] MEDS: ISOSORBIDE MONONITRATE ER 30 MG TAB.ER.24H PO SCH (08:18)
[2020-12-01] MEDS: PANTOPRAZOLE 40 MG/10 ML VIAL IVP SCH (09:07)
[2020-12-01 10:46] LABS: African American GFR (CKD) 115.6 (60.0-200.0); Albumin 3.5 g/dL (3.80-4.90); Albumin/Globulin Ratio 2.06 (1.60-3.17); Anion Gap 10.4 mmol/L (4.00-12.00); BUN/Creat Ratio 18.33 Ratio (12.00-20.00); Calcium 8.7 mg/dL (8.7-10.3); Carbon Dioxide 27.6 mmol/L (21.6-31.8); Globulin 1.7 g/dL (1.6-3.3); Non-African American GFR(CKD) 99.8 (60.0-200.0); Potassium 4.3 mmol/L (3.5-5.5); Total Bilirubin 0.6 mg/dL (0.2-1.2); Total Protein 5.2 g/dL (6.2-8.2)
[2020-12-01 12:35] VITALS: BP 108/78; PULSE 92; RESP 16; TEMP 97.8
--- NOTE | 2020-12-01 15:49 | P.PN ---
Subjective Progress Note Date: 12/01/20 Principal diagnosis: hematemesis Patient is a 60-year-old pleasant white female with history of alcohol abuse who was admitted to the hospital with shortness of breath and one episode of hematemesis. She underwent an upper endoscopy yesterday which revealed severe portal hypertensive gastropathy with no active bleeding, mild antral gastritis, with no evidence of gastric or esophageal varices. The patient seen and examined and denies any abdominal pain, nausea, or vomiting. She has had no further episodes of hematemesis. She is scheduled for an outpatient paracentesis next week. Patient states she would like to be discharged home. Objective - Vital Signs Vital signs: Vital Signs Temp 98.7 F 12/01/20 05:00 Pulse 103 H 12/01/20 05:00 Resp 20 12/01/20 05:00 BP 139/81 12/01/20 05:00 Pulse Ox 94 L 12/01/20 05:00 Intake & Output 11/30/20 12/01/20 12/01/20 18:59 06:59 18:59 Intake Total 50 0 Balance 50 0 Intake: IV 50 Oral 0 Other: # Voids 1 1 - Exam General appearance: The patient is alert, oriented, in no acute distress. HET: Head is normocephalic and atraumatic. Conjunctiva pink. Sclera anicteric. Neck: Supple without lymphadenopathy. Abdomen: Soft, nontender, slightly distended with bowel sounds. No guarding or rigidity. Extremities: Normal skin color and turgor. No pedal edema Neurological: No focal deficits. Alert and oriented 3. - Labs CBC & Chem 7: 12/01/20 05:31 12/01/20 05:31 Labs: Abnormal Lab Results - Last 24 Hours (Table) 11/30/20 12/01/20 Range/Units 04:44 05:31 WBC 10.7 H (3.8-10.6) k/uL Hgb 11.3 L (11.4-16.0) gm/dL RDW 18.3 H (11.5-15.5) % Plt Count 94 L (150-450) k/uL Sodium 133 L (135-145) mmol/L Chloride 91 L (96-109) mmol/L Anion Gap 12.60 H (4.00-12.00) mmol/L Creatinine 0.5 L (0.6-1.5) mg/dL Glucose 122 H (70-110) mg/dL Calcium 8.6 L (8.7-10.3) mg/dL Alkaline Phosphatase 189 H (41-126) U/L Total Protein 5.4 L (6.2-8.2) g/dL Albumin 3.40 L (3.80-4.90) g/dL Assessment and Plan (1) Alcoholic liver disease Narrative/Plan: This is a lady with a history of alcoholic liver disease with cirrhosis, portal hypertension and ascites requiring paracentesis on outpatient basis. She presented to the hospital with an episode of hematemesis and shortness of breath. She states there was moderate amount but hemoglobin remained stable. No further episodes of gastrointestinal bleed since being hospitalized. Her last upper endoscopy was in July 2020 which showed mild gastritis and mild portal hypertensive gastropathy. The patient underwent an upper endoscopy yesterday which revealed severe portal hypertensive gastropathy with no active bleeding, mild antral gastritis, with no evidence of gastric or esophageal varices. Status: Acute Code(s): K70.9 - ALCOHOLIC LIVER DISEASE, UNSPECIFIED SNOMED Code(s): 47007129 (2) Hematemesis Status: Acute Code(s): K92.0 - HEMATEMESIS SNOMED Code(s): 0926068 (3) Ascites Narrative/Plan: Patient has a history of ascites and Lasix 40 mg daily and Aldactone 100 mg daily. Last paracentesis was in October 2020. Patient is scheduled for outpatient paracentesis December 10. Status: Acute Code(s): R18.8 - OTHER ASCITES SNOMED Code(s): 135225670 (4) Alcohol abuse Narrative/Plan: This patient who has a history of heavy alcohol abuse. She states she quit drinking about 5 months ago but had a relapse over the holidays and was admitted to the hospital with an alcohol level of 331. Status: Acute Code(s): F10.10 - ALCOHOL ABUSE, UNCOMPLICATED SNOMED Code(s): 75386110 Plan: 1. Diabetes tolerated 2. Continue Protonix 40 mg twice daily 3. Patient is status post upper endoscopy 4. Continue diuretics 5. Patient may be discharged home from a gastroenterology standpoint. Patient has a outpatient paracentesis scheduled for December 10. Dr. Mauro Howard I agree with the dictator's note, documented as a scribe by Sigrid Chou.
--- NOTE | 2020-12-01 16:18 | P.DS ---
Providers Date of admission: 11/30/20 08:53 Expected date of discharge: 12/01/20 Attending physician: Sammy Amador MD Consults: 11/29/20 02:19 Consult Physician Routine Consulting Provider: Lauren Howard Consult Reason/Comments: throwing up blood Do you want consulting provider notified?: Yes, Notify in am Primary care physician: Miya Johnson [facility] Course: Final diagnosis -Short of breath, most probably secondary to bronchitis -Status post EGD with no sign of esophageal varices -Severe generalized weakness secondary to cirrhosis and continued alcohol use. -Alcohol abuse -Lactic acidosis secondary to cirrhosis, improved -Alcoholic gastritis -acute upper GI bleed secondary to gastritis, ruled out variceal bleed on EGD -COPD with mild acute exacerbation -Continued nicotine use: Counseling was provided -Coronary artery disease -Depression -Full code Discharge disposition Patient is being discharged in a stable condition with guarded prognosis to ho . Patient will follow-up with Dr. Johnson in the outpatient setting upon discharge. Patient also has standing order for paracentesis and instructed to keep the appointment. Patient follows with GI in the outpatient setting. Patient is to continue with oral antibiotics in the form of Ceftin 500 mg twice daily for the next 3 days to complete the course. Total time taken is greater than 35 minutes. Hospital course This is a 60-year-old female who was recently admitted with shortness of breath and cough and was being closely monitored. Patient also reported an episode of hematemesis and was seen and evaluated by GI and underwent EGD showing gastritis with no variceal bleed noted. Patient does have a history of alcohol abuse and has most recently restarted drinking alcohol. Patient instructed to continue to avoid alcohol. During hospitalization patient was maintained on CIWA protocol although did not require any Ativan. Patient does follow with GI in the outpatient setting and has had multiple paracentesis for ascites. Patient has a scheduled interventional radiology appointment on the of this month for paracentesis. Patient was also found to have lactic acidosis and was hydrated and has improved. Patient will be resumed on Aldactone along with Lasix upon discharge. Patient also instructed to avoid tobacco use and was initially started on IV ceftriaxone with the possibility of bronchitis. Patient will continue with oral Ceftin 500 mg twice daily for the next 3 days to complete the course. Patient was seen and evaluated by PT/OT therapy although is refusing rehab but is agreeable to home care. Patient is currently tolerating diet and was instructed to continue to advance slowly as tolerated. Currently no reports of chest pain, worsening shortness of breath, or palpitations. Patient is afebrile. No reports of nausea or vomiting and patient is tolerating diet. Patient will be discharged home today. Patient will have home care in the outpatient setting. Prognosis is guarded On exam vital signs are stable. Temp is 97.8F, pulse is 92, respirations are 16, blood pressure is 108/78, oxygen saturation is 94% on room air. Cardio S1, S2 are muffled. Respiratory system shows diminished breath sounds at the bases with no wheezing or rhonchi noted. Abdomen is soft, distended, and nontender. Nervous system shows no focal deficit. Please refer to medication reconciliation sheet for a list of medications. Patient Condition at Discharge: Fair Plan - Discharge Summary New Discharge Prescriptions: New Cefuroxime Axetil [Ceftin] 500 mg PO BID 3 Days #6 tab Thiamine [Vitamin B-1] 100 mg PO BID-W/MEALS 30 Days #60 tab Continue Aspirin EC [Ecotrin Low Dose] 81 mg PO DAILY Pantoprazole [Protonix] 40 mg PO DAILY Isosorbide Mononitrate ER [Imdur] 30 mg PO DAILY amLODIPine [Norvasc] 10 mg PO DAILY Ergocalciferol (Vitamin D2) [Vitamin D2 (50,000 Iu)] 1 tab PO FR Dicyclomine HCl 10 mg PO TID PRN PRN Reason: IBS Multivitamin [Multivitamins Adult Gummies] 1 tab PO DAILY Spironolactone 100 mg PO DAILY Furosemide [Lasix] 40 mg PO DAILY Fluticasone Nasal Ayr [Flonase Nasal Ayr] 1 spray EA NOSTRIL DAILY Discharge Medication List Aspirin EC [Ecotrin Low Dose] 81 mg PO DAILY 02/11/19 [History] Isosorbide Mononitrate ER [Imdur] 30 mg PO DAILY 09/10/19 [History] Pantoprazole [Protonix] 40 mg PO DAILY 09/10/19 [History] amLODIPine [Norvasc] 10 mg PO DAILY 12/10/19 [History] Ergocalciferol (Vitamin D2) [Vitamin D2 (50,000 Iu)] 1 tab PO FR 10/15/20 [History] Dicyclomine HCl 10 mg PO TID PRN 11/20/20 [History] Multivitamin [Multivitamins Adult Gummies] 1 tab PO DAILY 11/20/20 [History] Furosemide [Lasix] 40 mg PO DAILY 11/29/20 [History] Spironolactone 100 mg PO DAILY 11/29/20 [History] Fluticasone Nasal Ayr [Flonase Nasal Ayr] 1 spray EA NOSTRIL DAILY 11/30/20 [History] Cefuroxime Axetil [Ceftin] 500 mg PO BID 3 Days #6 tab 12/01/20 [Rx] Thiamine [Vitamin B-1] 100 mg PO BID-W/MEALS 30 Days #60 tab 12/01/20 [Rx] Follow up Appointment(s)/Referral(s): [facility], [NON-STAFF] - Miya Johnson MD [Primary Care Provider] - 1-2 days Activity/Diet/Wound Care/Special Instructions: ok to discharge Activity Limited until follow-up Follow-up with primary care provider upon discharge Keep interventional radiology appointment as previously scheduled Continue with low-fat low-salt diet Continue to avoid alcohol intake Continue with antibiotics for the next 3 days to complete the course Discharge Disposition: HOME WITH HOME HEALTH SERVICES
== END 2020-12-01 13:35 | disposition home health service (06) | DRG 378 ==
LOC: EC 22:39 → 6NMEDSUR 11-29 00:42 → OBSVTOIN 11-30 08:53
PROVIDERS: ADMIT Internal Medicine; ATTEND Internal Medicine
PROC: 0DJ08ZZ Inspection of Upper Intestinal Tract, Via Natural or Artificial Opening Endoscopic (ICD-10-PCS; principal; 2020-11-30 12:25)
DX: K29.21 Alcoholic gastritis with bleeding (principal); K76.6 Portal hypertension; E87.2 Acidosis; F10.239 Alcohol dependence with withdrawal, unspecified; J44.1 Chronic obstructive pulmonary disease with (acute) exacerbation; K70.31 Alcoholic cirrhosis of liver with ascites; I50.9 Heart failure, unspecified; K31.89 Other diseases of stomach and duodenum; F10.229 Alcohol dependence with intoxication, unspecified; G40.909 Epilepsy, unspecified, not intractable, without status epilepticus; E86.9 Volume depletion, unspecified; E83.42 Hypomagnesemia; Y90.8 Blood alcohol level of 240 mg/100 ml or more; F32.9 Major depressive disorder, single episode, unspecified; F41.9 Anxiety disorder, unspecified; I25.10 Atherosclerotic heart disease of native coronary artery without angina pectoris; M54.9 Dorsalgia, unspecified; D72.829 Elevated white blood cell count, unspecified; I25.2 Old myocardial infarction; F17.200 Nicotine dependence, unspecified, uncomplicated; Z71.6 Tobacco abuse counseling; Z71.41 Alcohol abuse counseling and surveillance of alcoholic; Z79.82 Long term (current) use of aspirin; Z79.899 Other long term (current) drug therapy; Z86.73 Personal history of transient ischemic attack (TIA), and cerebral infarction without residual deficits; Z90.49 Acquired absence of other specified parts of digestive tract; Z87.42 Personal history of other diseases of the female genital tract; Z87.19 Personal history of other diseases of the digestive system; Z96.60 Presence of unspecified orthopedic joint implant; Z60.2 Problems related to living alone; Z98.890 Other specified postprocedural states; Z88.5 Allergy status to narcotic agent; Z88.7 Allergy status to serum and vaccine; Z82.49 Family history of ischemic heart disease and other diseases of the circulatory system; Z83.49 Family history of other endocrine, nutritional and metabolic diseases; Z80.1 Family history of malignant neoplasm of trachea, bronchus and lung; Z82.5 Family history of asthma and other chronic lower respiratory diseases; Z81.1 Family history of alcohol abuse and dependence
CPT/HCPCS: 36415; 43235; 71046; 80053; 80320; 82140; 82150; 82550; 83605; 83690; 83735; 83880; 84100; 84484; 85025; 85027; 85379; 85610; 85730; 93005; 94640; 94760; 96361; 96374; 96375; 99285

== ENCOUNTER → 2020-12-10 | Day surgery (SDC) | payer OTHER ==
[~2020-12-10] MED LIST: ALBUMIN HUMAN 25% 50 ML in EMPTY BAG 1 BAG IVPB SCH
[2020-12-10 12:59] VITALS: RESP 18; TEMP 98.2
[2020-12-10 13:07] LABS: Mean Platelet Volume 7.5; Platelet Count 109 k/uL (150-450)
[2020-12-10 13:16] LABS: African American GFR (CKD) >90 (>60 ml/min/1.73 sqM); Non-African American GFR(CKD) >90 (>60 ml/min/1.73 sqM)
[2020-12-10 13:20] LABS: Prothrombin Time 10.8 sec (9.0-12.0)
[2020-12-10 14:23] VITALS: BP 144/86; PULSE 92
--- NOTE | 2020-12-10 15:26 | US ---
Discontinued paracentesis HISTORY: Ascites Real-time real-time ultrasound was performed. Following discussion with the patient, patient has elec hafsa to defer drainage at this time. impression: Discontinued paracentesis
== END ==
LOC: RADPROMAIN 12:09
PROVIDERS: ATTEND Nurse Practitioner
DX: R18.8 Other ascites (principal); Z53.20 Procedure and treatment not carried out because of patient's decision for unspecified reasons
CPT/HCPCS: 36415; 76705; 82565; 85049; 85610

== ENCOUNTER 2020-12-16 14:55 | Inpatient (IN) | payer OTHER ==
[2020-12-16] MEDS ORDERED: HYDROmorphone 1 MG/ML 1 ML SYRINGE IVP STA ×2 (15:22→16:41)
--- NOTE | 2020-12-16 15:26 | ED ---
General Adult HPI - General Chief complaint: Back Pain/Injury Stated complaint: Back pain Time Seen by Provider: 12/16/20 15:15 Source: patient, EMS, RN notes reviewed Mode of arrival: EMS Limitations: no limitations - History of Present Illness Initial comments: Patient is a pleasant 60-year-old female presenting to the emergency Department with complaints of lower back pain. Patient has chronic back pain since 2004. Patient does see physical therapy for this. Patient has known degenerative disc disease. Patient states she did have a fall less than 2 weeks ago. Patient states when she was here last time he never did x-rays. Patient has discomfort mostly of the right tailbone. Patient states there is no weakness or incontinence or retention of bowel or bladder. Patient states pain increases greatly with movement. - Related Data Home Medications Medication Instructions Recorded Confirmed Aspirin EC [Ecotrin Low Dose] 81 mg PO DAILY 02/11/19 12/16/20 Pantoprazole [Protonix] 40 mg PO DAILY 09/10/19 12/16/20 Ergocalciferol (Vitamin D2) 1 tab PO FR 10/15/20 12/16/20 [Vitamin D2 (50,000 Iu)] Dicyclomine HCl 10 mg PO TID PRN 11/20/20 12/16/20 Multivitamin [Multivitamins Adult 1 tab PO DAILY 11/20/20 12/16/20 Gummies] Furosemide [Lasix] 40 mg PO DAILY 11/29/20 12/16/20 Spironolactone 100 mg PO DAILY 11/29/20 12/16/20 Fluticasone Nasal [place] [Flonase 1 spray EA NOSTRIL DAILY 11/30/20 12/16/20 Nasal [place]] Ibuprofen [Motrin] 400 mg PO Q6HR PRN 12/10/20 12/16/20 Previous Rx's Medication Instructions Recorded Thiamine [Vitamin B-1] 100 mg PO BID-W/MEALS 30 Days #60 12/01/20 tab Allergies Allergy/AdvReac Type Severity Reaction Status Date / Time Influenza Virus Vaccines AdvReac Nausea & Verified 12/16/20 16:59 Vomiting morphine AdvReac Nausea & Verified 12/16/20 16:59 Vomiting Review of Systems ROS Statement: Those systems with pertinent positive or pertinent negative responses have been documented in the HPI. ROS Other: All systems not noted in ROS Statement are negative. Constitutional: Denies: fever Eyes: Denies: eye pain ENT: Denies: ear pain Respiratory: Denies: cough Cardiovascular: Denies: chest pain Endocrine: Denies: fatigue Gastrointestinal: Denies: abdominal pain Genitourinary: Denies: dysuria Musculoskeletal: Reports: as per HPI, back pain Skin: Denies: rash Neurological: Denies: weakness Past Medical History Past Medical History: Asthma, Coronary Artery Disease (CAD), CVA/TIA, Liver Disease, Myocardial Infarction ([place]), Seizure Disorder Additional Past Medical History / Comment(s): DDD, CVA 06/2019, pt. states they have a blockage in their heart, NERVE DAMAGE GREGORY LEGS, ascites Last Myocardial Infarction Date:: aug 2018 History of Any Multi-Drug Resistant Organisms: None Reported Past Surgical History: Cholecystectomy, Heart Catheterization, Joint Replacement, Orthopedic Surgery Additional Past Surgical History / Comment(s): bartholin gland cyst removal, stent placed, multi paracentesis Past Anesthesia/Blood Transfusion Reactions: No Reported Reaction Past Psychological History: Anxiety, Depression Smoking Status: Current every day smoker Past Alcohol Use History: Daily, Occasional Past Drug Use History: Marijuana - Past Family History Mother Family Medical History: Cancer, Congestive Heart Failure (CHF), Coronary Artery Disease (CAD), Hyperlipidemia Additional Family Medical History / Comment(s): Mother at age 85 from lung cancer. Father Family Medical History: Cancer, COPD Additional Family Medical History / Comment(s): Father at age 63 from lung cancer. Brother(s) Additional Family Medical History / Comment(s): Patient has a total of 7 siblings. 5 are alive without any major medical problems she is aware of. 2 siblings have one from alcohol abuse and 1. Coronary artery disease. Daughter(s) Additional Family Medical History / Comment(s): Patient has one daughter with no major medical problems. General Exam Limitations: no limitations General appearance: alert, in no apparent distress Head exam: Present: normocephalic Eye exam: Present: normal appearance Neck exam: Present: normal inspection. Absent: tenderness Respiratory exam: Present: normal lung sounds bilaterally Cardiovascular Exam: Present: regular rate, normal rhythm Expanded Peripheral pulses: 2+: Posterior Tibialis (R), Posterior Tibialis (L) GI/Abdominal exam: Present: soft. Absent: distended, tenderness, guarding, rebound, rigid, pulsatile mass Extremities exam: Present: normal inspection, full ROM. Absent: tenderness Back exam: Present: tenderness (Patient has tenderness right sacroiliac region). Absent: CVA tenderness (R), CVA tenderness (L) Neurological exam: Present: alert. Absent: motor sensory deficit Expanded Sensory exam: Lower Extremity Light Touch: Normal Motor strength exam: RLE: 4 (Patient has difficulty with dorsiflexion toe and foot however states this is chronic since her stroke.), LLE: 5 Psychiatric exam: Present: normal affect, normal mood Skin exam: Present: normal color Course Vital Signs 12/16/20 12/16/20 14:57 16:17 Temperature 98.6 F Pulse Rate 88 86 Respiratory 18 18 Rate Blood Pressure 122/89 126/82 O2 Sat by Pulse 98 98 Oximetry Medical Decision Making - Medical Decision Making Patient reevaluated and still having discomfort. Patient has some mild weakness with flexion at the right toe and foot however states this is chronic. Patient states this is not worsened since the fall. Fall occurred greater than 2 weeks ago and is not in acute trauma. Case was discussed with Dr. Cardoza, who will admit covering for Dr. Clemente. Case also discussed with Dr. Max 7, will consult with orthopedics. - Radiology Data Radiology results: image reviewed (Sacral x-ray shows no acute abnormality. Sacroiliac degenerative changes. X-ray of the lumbar spine shows compression deformity of L4 endplate, which appears somewhat new.Computed tomography scan lumbar spine shows acute comminuted minimally displaced fracture superior L4 vertebrae. No posterior ) Disposition Clinical Impression: L4 vertebral fracture Disposition: ADMITTED IP TO THIS HOSP Is patient prescribed a controlled substance at d/c from ED?: No Referrals: Miya Johnson MD [Primary Care Provider] - 1-2 days Decision Time: 17:22
--- NOTE | 2020-12-16 15:55 | XR ---
EXAMINATION TYPE: XR lumbar spine 2 or 3V DATE OF EXAM: 12/16/2020 COMPARISON: None HISTORY: Fall, pain TECHNIQUE: Three-view lumbar spine FINDINGS: There 5 lumbar-type vertebral bodies. Pedicles are intact. There is an acute appearing supe rior endplate compression deformity of L4 with approximately 25% loss of anterior vertebral body heig ht. There is an old compression deformity at T12 with approximately 15% loss of anterior vertebral body h eight IMPRESSION: 1. Acute compression deformity superior endplate L4. Consider additional workup with CT. 2. Old appearing T12 superior endplate compression deformity
--- NOTE | 2020-12-16 15:56 | XR ---
EXAMINATION TYPE: XR sacrum coccyx DATE OF EXAM: 12/16/2020 COMPARISON: None HISTORY: Fall, pain TECHNIQUE: Sacrum and coccyx are evaluated in 3 projections FINDINGS: There are degenerative changes at sacroiliac joints. Sacrum appears intact. No acute fractu re or dislocation is evident. IMPRESSION: 1. No acute sacral abnormality. 2. Sacroiliac joint degenerative changes
--- NOTE | 2020-12-16 16:32 | CT ---
EXAMINATION TYPE: CT lumbar spine wo con DATE OF EXAM: 12/16/2020 4:22 PM COMPARISON: Lumbar spine x-ray earlier today HISTORY: Low back pain post injury [address] DLP: 717.7 mGycm Automated exposure control for dose reduction was used. Unenhanced CT of the lumbar spine was performed. Bone and soft tissue window settings are submitted as well as coronal and sagittal reconstructions. There are 5 lumbar type vertebra redemonstrated. Fracture deformity through the superior L4 vertebra extending to anterior and posterior vertebral body margins has both lytic and sclerotic components osei ggesting subacute in age. There is extension into right and left aspects. No posterior retropulsion. Tiny anterior fragmentation. Alignment is satisfactory. Mild height loss superior L1 endplate is senior research fellow julito with sclerosis and no definitive lucency. Mild disc space narrowing L1-L2 and L2-L3 levels with m ild to moderate multilevel anterior spurring in the lumbar spine. Spinal canal grossly preserved. Axial images show posterior disc herniations efface the anterior thecal sac at L4-L5 and L5-S1 levels with [id number] facet arthropathy greatest at L5-S1 level. There is some mild scattered intra-abdominal ascites. Cholecystectomy clips are seen. Hepatomegaly is felt present. Spleen may be enlarged. Ascites extends into the pelvis was more mild to moderate appe arance. There are some diverticula in the sigmoid colon. There is moderate to severe calcified plaque of the aorta extending into branch vessels. Patient has history of recurrent paracentesis on review of PACS. IMPRESSION: Confirmation of acute comminuted minimally displaced fracture through the superior L4 haylee tebra. No significant posterior retropulsion. Alignment is satisfactory.
[2020-12-16] MEDS ORDERED: NALOXONE 0.4 MG/ML 1 ML VIAL IV PRN (17:22)
[2020-12-16] MEDS ORDERED: HYDROmorphone 0.5 MG/0.5 ML SYRINGE IVP PRN (17:22)
[2020-12-16] MEDS ORDERED: HYDROmorphone 1 MG/ML 1 ML SYRINGE IVP PRN (17:22)
[2020-12-16] MEDS ORDERED: LORazepam 2 MG/ML INJ IV PRN ×2 (17:24)
[2020-12-16 17:43] LABS: Anisocytosis Slight; Basophils # (A) 0.2 k/uL (0-0.2); Basophils % (A) 2 %; Eosinophils # (A) 0.1 k/uL (0-0.7); Eosinophils % (A) 1 %; HCT 41.2 % (34.0-46.0); HGB 13.3 gm/dL (11.4-16.0); Lymphocytes # (A) 2.6 k/uL (1.0-4.8); Lymphocytes % (A) 37 %; MCH 27.7 pg (25.0-35.0); MCHC 32.4 g/dL (31.0-37.0); MCV 85.5 fL (80.0-100.0); Mean Platelet Volume 6.9; Monocytes # (A) 0.3 k/uL (0-1.0); Monocytes % (A) 5 %; Neutrophils # (A) 3.5 k/uL (1.3-7.7); Neutrophils % (A) 51 %; RBC 4.82 m/uL (3.80-5.40); RDW 19.1 % (11.5-15.5)
[2020-12-16 17:48] LABS: Platelet Count 261 k/uL (150-450)
[2020-12-16 17:55] LABS: ALT 15 U/L (4-34); AST 36 U/L (14-36); African American GFR (CKD) >90 (>60 ml/min/1.73 sqM); Albumin 3.5 g/dL (3.5-5.0); Alkaline Phosphatase 210 U/L (38-126); Anion Gap 9 mmol/L; Blood Urea Nitrogen <2 mg/dL (7-17); Calcium 8.6 mg/dL (8.4-10.2); Carbon Dioxide 32 mmol/L (22-30); Chloride 95 mmol/L (98-107); Glucose 98 mg/dL (74-99); Non-African American GFR(CKD) >90 (>60 ml/min/1.73 sqM); Potassium 3.3 mmol/L (3.5-5.1); Sodium 136 mmol/L (137-145); Total Bilirubin 0.4 mg/dL (0.2-1.3); Total Protein 6.7 g/dL (6.3-8.2)
--- NOTE | 2020-12-16 17:59 | HP ---
HISTORY AND PHYSICAL DATE OF SERVICE: 12/16/2020 CHIEF COMPLAINTS: Back pain and diarrhea. HISTORY OF PRESENT ILLNESS: This 60-year-old woman with a past medical history of multiple medical problems, including history of asthma, CAD, CVA, TIA, history of chronic liver disease, possibly alcoholic liver disease, seizure disorder, history of recurrent ascites, anxiety, depression, being followed by Dr. Miya Johnson in the outpatient setting, is complaining of significant diarrhea for the past several days. The patient also had alcohol abuse. Patient apparently slipped and fell a few days ago and is complaining of severe back pain. The patient does have some physical therapy. The fall was about 2 weeks ago. Because of lack of improvement, the patient came to [facility] and had extensive evaluations. A lumbosacral spine x-ray and CT scan were done which showed acute comminuted minimally displaced fracture of the superior L4 plate, and the patient was admitted for further evaluation and treatment. There is no history of any fever, rigor or chills. No history of headache, loss of consciousness, seizures. The patient had recurrent abdominal paracenteses, as mentioned earlier. PAST MEDICAL HISTORY: History of asthma, CAD, CVA, TIA, liver disease, myocardial infarction, seizure disorder, history of cholecystectomy, history of anxiety, depression, nicotine dependence. HOME MEDICATIONS: Thiamine 100 mg p.o. daily, aldactone 100 mg, Protonix, multivitamins, Motrin, Lasix, Flonase, vitamin D2, dicyclomine, Ecotrin. ALLERGIES: INFLUENZA VACCINE, MORPHINE. FAMILY HISTORY: History of CHF, CAD, hyperlipidemia in the family. SOCIAL HISTORY: History of alcohol, THC. History of smoking. REVIEW OF SYSTEMS: ENT: No diminished hearing. No diminished vision. CARDIOVASCULAR SYSTEM: No angina, palpitations. RESPIRATORY SYSTEM: As mentioned earlier. GI: As mentioned earlier. : No dysuria or retention. NERVOUS SYSTEM: No numbness, weakness. ALLERGY/IMMUNOLOGY: No asthma, hayfever. MUSCULOSKELETAL: As mentioned earlier. HEMATOLOGY/ONCOLOGY: No history of anemia. ENDOCRINE: As mentioned earlier. CONSTITUTIONAL: As mentioned earlier. DERMATOLOGY: Negative. RHEUMATOLOGY: Negative. PSYCHIATRY: As mentioned earlier. PHYSICAL EXAMINATION: Patient alert and oriented x3. Pulse 86, blood pressure 127/82, respiration 18, temperature 98.6, pulse ox 98% on room air. HEENT: Conjunctivae normal. NECK: No jugular venous distention. CARDIOVASCULAR SYSTEM: S1, S2 muffled. RESPIRATORY SYSTEM: Breath sounds diminished at the bases. A few scattered rhonchi. No crackles. ABDOMEN: Soft. Mild diffuse distention present. Non-tender. Flanks are dull. No tense ascites present. LEGS: No edema. No swelling. NERVOUS SYSTEM: Higher functions as mentioned earlier. Moves all 4 limbs. No focal motor or sensory deficit. LYMPHATICS: No lymph node palpable in neck, axillae or groin. SKIN: No ulcer, rash, bleeding. JOINTS: No active deforming arthropathy. LABS: Labs are awaited at this time. ASSESSMENT: 1. Fall and severe back pain with acute minimally displaced fracture through the superior L4 vertebra. 2. Gait dysfunction secondary to that. 3. History of ETOH. 4. History of chronic liver disease secondary to alcoholic liver disease and cirrhosis and repeated abdominal paracentesis. 5. History of asthma. 6. History of coronary artery disease. 7. History of cerebrovascular accident, transient ischemic attack. 8. History of seizure disorder. 9. History of cholecystectomy. 10.History of anxiety, depression. 11.History of nicotine dependence. 12.History of ETOH. 13.History of tetrahydrocannabinol. 14.Gait dysfunction. RECOMMENDATIONS AND DISCUSSION: In this 60-year-old woman who presented with multiple complex medical issues, we will monitor the patient closely, continue the current medications, continue symptomatic treatment. Will obtain orthopedic evaluation, PT/OT evaluation, and possible ECF rehab. CIWA protocol. Watch for alcohol withdrawal symptoms. Prognosis guarded. Further recommendations to follow. A copy of this dictation is being forwarded to Dr. Miya Johnson, who is the primary physician. MMODL / IJN: [id number] /
[2020-12-16 18:10] LABS: INR 1.1 (<1.2); Partial Thromboplastin Time 22.3 sec (22.0-30.0); Prothrombin Time 11.3 sec (9.0-12.0)
[2020-12-16 18:21] LABS: Alcohol 235 mg/dL
[2020-12-16] MEDS: THIAMINE 100 MG TAB PO SCH (20:13)
[2020-12-16] MEDS: SODIUM CHLORIDE 0.9% 1,000 ML IV SCH (20:13)
[2020-12-17] MEDS: ONDANSETRON 4 MG/2 ML VIAL IVP PRN ×2 (00:37→14:17)
[2020-12-17] MEDS: traMADol 50 MG TAB PO PRN ×2 (04:10→21:56)
[2020-12-17] MEDS: LORazepam 2 MG/ML INJ IV PRN ×2 (05:08→16:49)
--- NOTE | 2020-12-17 09:08 | P.CNOR ---
History of Present Illness - HPI Consult date: 12/17/20 Consult reason: fracture History of present illness: 60-year-old female who states she sustained a fall from standing in her buttock region about 2 weeks ago. She sustained other multiple falls secondary to the f act that she has right upper extremity and lower extremity weakness secondary to a CVA that she sustained. She states no focal deficits from the fall she states that her right lower extremity seems to be little bit more tingly after the fall but otherwise no other issues. She states pain in her back as well as her thoracic spine. She denies any blunt head trauma or loss of consciousness. She denies any bowel bladder issues she denies any perineal numbness tingling she denies any fevers chills shortness of breath or chest pain at this time. She has multiple medical comorbidities. Review of Systems 14 points review of systems completed and as stated in HPI, all other systems reviewed are negative. Past Medical History Past Medical History: Asthma, Coronary Artery Disease (CAD), CVA/TIA, Liver Disease, Myocardial Infarction (MT), Seizure Disorder Additional Past Medical History / Comment(s): DDD, CVA 06/2019, pt. states they have a blockage in their heart, NERVE DAMAGE GREGORY LEGS, ascites Last Myocardial Infarction Date:: aug 2018 History of Any Multi-Drug Resistant Organisms: None Reported Past Surgical History: Cholecystectomy, Heart Catheterization, Joint Replacement, Orthopedic Surgery Additional Past Surgical History / Comment(s): bartholin gland cyst removal, stent placed, multi paracentesis Past Anesthesia/Blood Transfusion Reactions: No Reported Reaction Past Psychological History: Anxiety, Depression Smoking Status: Current every day smoker Past Alcohol Use History: Daily, Occasional Additional Past Alcohol Use History / Comment(s): Patient is an active smoker since age 18 and quit in 2019. She uses marijuana on a daily basis. She is also has history of alcohol abuse and reports that she is drinking couple glass es of wine and a shot of whiskey every day. She denies any street drug use. She uses a walker at home and is currently on disability. PT STATES NO LONGER DRINKS WHISKEY, AND HAS CUT OUT DRINKING ALTOGHTHER 1 WEEK AGO Past Drug Use History: Marijuana - Past Family History Mother Family Medical History: Cancer, Congestive Heart Failure (CHF), Coronary Artery Disease (CAD), Hyperlipidemia Additional Family Medical History / Comment(s): Mother at age 85 from lung cancer. Father Family Medical History: Cancer, COPD Additional Family Medical History / Comment(s): Father at age 63 from lung cancer. Brother(s) Additional Family Medical History / Comment(s): Patient has a total of 7 siblings. 5 are alive without any major medical problems she is aware of. 2 siblings have one from alcohol abuse and 1. Coronary artery disease. Daughter(s) Additional Family Medical History / Comment(s): Patient has one daughter with no major medical problems. Medications and Allergies Home Medications Medication Instructions Recorded Confirmed Type Aspirin EC [Ecotrin Low Dose] 81 mg PO DAILY 02/11/19 12/16/20 History Pantoprazole [Protonix] 40 mg PO DAILY 09/10/19 12/16/20 History Ergocalciferol (Vitamin D2) 1 tab PO FR 10/15/20 12/16/20 History [Vitamin D2 (50,000 Iu)] Dicyclomine HCl 10 mg PO TID PRN 11/20/20 12/16/20 History Multivitamin [Multivitamins Adult 1 tab PO DAILY 11/20/20 12/16/20 History Gummies] Furosemide [Lasix] 40 mg PO DAILY 11/29/20 12/16/20 History Spironolactone 100 mg PO DAILY 11/29/20 12/16/20 History Fluticasone Nasal [place] [Flonase 1 spray EA NOSTRIL DAILY 11/30/20 12/16/20 History Nasal [place]] Thiamine [Vitamin B-1] 100 mg PO BID-W/MEALS 30 Days #60 12/01/20 12/16/20 Rx tab Ibuprofen [Motrin] 400 mg PO Q6HR PRN 12/10/20 12/16/20 History Allergies Allergy/AdvReac Type Severity Reaction Status Date / Time Influenza Virus Vaccines AdvReac Nausea & Verified 12/16/20 16:59 Vomiting morphine AdvReac Nausea & Verified 12/16/20 16:59 Vomiting Physical Examination Osteopathic Statement: *. No significant issues noted on an osteopathic structural exam other than those noted in the History and Physical/Consult. PHYSICAL EXAMINATION: Vitals: Stable General: Awake, alert, appropriate for age, in no acute distress. HEENT: No unusual neck masses around region of lateral neck triangle, thyroid, supraclavicular groove. Extremities: Skin warm and dry without no acute lesions, coloration, temperature, skin intact, no tenderness or erythema. Integument: Hairy patches: Absent Dorsal skin dimples: Absent Cafe au lait spots: Absent Surgical incisions: No low back incisions Palpation: Please see Pain drawing on Intake sheet for further detail. (Tenderness = T, Nontender = NT, Swelling = S, Ecchymosis = E) Findings on Midline and paraspinal palpation and percussion: Cervical: NT Thoracic: NT Lumbar: Mild tenderness to palpation midline paraspinal and with ballottement no erythema or ecchymosis or edema Sacral: NT Special findings: None POSTURAL and MUSCULO-SKELETAL EVALUATION: Coronal Balance: Neutral Recumbent testing: Patient can lay flat on back Sagittal Balance: Neutral Shoulder Profile: Level Pelvic Girdle: Level Neck ROM: Unrestricted in six directions Lumbar ROM: Unrestricted in six directions Shoulder ROM: Symmetric in abduction, ER/IR Hip ROM: Symmetric in abduction, adduction, ER/IR Knee ROM: Symmetric and intact in Flexion / extension Hands: Normal appearing structure L and R Feet: Normal appearing structure L and R VASCULAR STATUS : Wrist Pulses: 2/4 bilateral radial and ulnar Pedal Pulses: 2/4 bilateral DP and PT Color: Normal Edema: None NEUROLOGIC EXAMINATION: Mental Status: Awake and alert, fully oriented, with normal attention, concentration and memory, and fluent, appropriate speech. Cranial Nerves: I: Olfactory not tested. II: Visual acuity normal, no visual field deficit noted with confrontation. III,IV: Normal pupillary reflexes & intact extraocular movements without nystagmus. V,: Intact symmetrical facial sensation. VII: Intact symmetrical facial motor movement VIII: Hearing intact. IX,X: Intact gag, swallow, & normal voice. XI: Sternocleidomastoid, trapezius function intact. XII: Tongue midline with normal movements. Special Tests: L'hermitte's Sign: Absent Spurling'Sign: Absent Bilateral Cubital percussion test: Absent Bilateral Sandoval-Tinel sign - Carpal region: Absent Bilateral Straight Leg Raising: Absent Bilateral Motor Exam (0-5/5, N/T) STRENGTH UPPER EXTREMITY Shoulder Abd (Not part of LAVON Motor score): RIGHT 4 LEFT 5 Elbow Flexors: RIGHT 4 LEFT 5 Elbow Extensor: RIGHT 4 LEFT 5 Wrrist Dorsiflexors: RIGHT4 LEFT 5 Finger Abductor: RIGHT 4 LEFT 5 Crane Operator Cab: RIGHT 4 LEFT 5 LOWER EXTREMITY Hip Flexor (Not part of LAVON Motor Score): RIGHT 3 LEFT 5 Knee Flexor: RIGHT 3 LEFT 5 Knee Extensor: RIGHT 3 LEFT 5 Ankle Dorsiflexion: RIGHT 3 LEFT 5 Ankle Plantarflexion: RIGHT 3 LEFT 5 EHL: RIGHT 3 LEFT 5 FHL: RIGHT 3 LEFT 5 LAVON Motor Score: RIGHT 33/50 LEFT 50/50 Right-sided weakness is secondary to her previous CVA. She states that is unchanged from prior. REFLEXES Biecp: RIGHT 2 LEFT 2 Tricep: RIGHT 2 LEFT 2 Brachioradialis: RIGHT 2 LEFT 2 Patellar: RIGHT 2 LEFT 2 Achilles: RIGHT 2 LEFT 2 Pathological Reflexes Martin's: RIGHT Absent LEFT Absent Babinski: RIGHT Absent LEFT Absent Clonus: RIGHT None LEFT None SENSORY Joint Position: Intact bilaterally Vibration Intact bilaterally Pain and LT sense Intact C5-T1 and L2-S1 Dermatomal deficit None Gait and Functional Evaluation: Ambulatory aids: Romberg's test: Intact bilaterally. Toe walk/ heel walk / heel-toe walk intact while maintaining satisfactory ba maria esther. Squatting and straightening out without assistance to a minimum of 60 degrees knee flexion Single leg stance: intact/ Trendelenburg sign negative bilaterally Hand and finger dexterity intact bilaterally. Disdiadochokinesis examination negative bilaterally. Results XRAY: Lumbar: Overall fairly well-maintained alignment and lumbar spine and no instab ility. Compression fracture apparent that L4 as well as L1. No retropulsion. No lesions or other bony abnormalities. Spondylosis throughout the lumbar spine. Sacrum: Sacrum appears of normal morphology. There is no acute fracture dislocation within the visualized pelvis or sacrum. CT SCAN: Lumbar spine- this reveals an L4 A3 incomplete burst fracture with no retropulsion. There is about 20% decrease in height. There is also a subacute L1 A1 compression fracture noted as well. Overall alignment is again maintained. There is no acute kyphosis. There is no evidence of posterior column involvement. No other fractures or dislocations are noted. - Labs Labs: Abnormal Lab Results - Last 24 Hours (Table) 12/16/20 12/16/20 Range/Units 17:31 17:31 RDW 19.1 H (11.5-15.5) % Sodium 136 L (137-145) mmol/L Potassium 3.3 L (3.5-5.1) mmol/L Chloride 95 L (98-107) mmol/L Carbon Dioxide 32 H (22-30) mmol/L BUN <2 L (7-17) mg/dL Creatinine 0.43 L (0.52-1.04) mg/dL Alkaline Phosphatase 210 H (38-126) U/L Serum Alcohol 235 H* mg/dL H & H 12/16/20 Range/Units 17:31 Hgb 13.3 (11.4-16.0) gm/dL Hct 41.2 (34.0-46.0) % Coagulation 12/16/20 Range/Units 17:31 INR 1.1 (<1.2) Result Diagrams: 12/16/20 17:31 12/16/20 17:31 Assessment and Plan Assessment: 60-year-old female 1. L4 AO Type A3 incomplete burst fracture no retropulsion neurologically intact, status post fall 2 weeks prior 2. L1 AO Type A1 compression fracture 3. Lumbar spondylosis 4. LE weakness secondary to previous CVA Plan: -Appreciate medicine management. -Pain control: As needed -Obtain LSO, wear at all times except for sleeping and showering -Aggressive ambulation protocol. OOB with all meals. OOB or in chair 4-5x daily. -PT/OT -TEDs, SCDs, mechanical ppx. OK for heparin today. Early ambulation is best. -GI ppx. -No further imaging needed at this time -Trend labs. -Dispo: Per primary team. Follow-up with orthopedic office in 2 weeks
[2020-12-17] MEDS: MULTIVITAMINS, THERA 1 EACH TAB PO SCH (09:25)
[2020-12-17] MEDS: NICOTINE 21MG/24HR PATCH TRANSDERM SCH (09:25)
[2020-12-17] MEDS: THIAMINE 100 MG TAB PO SCH ×2 (09:25→17:45)
[2020-12-17] MEDS ORDERED: Potassium Replacement Protocol 1 EACH MISC MISCELLANE PRN ×2 (09:34→15:17)
[2020-12-17] MEDS ORDERED: Magnesium Replacement Protocol 1 EACH MISC MISCELLANE PRN ×2 (09:34→15:17)
[2020-12-17] MEDS ORDERED: IBUPROFEN 400 MG TAB PO PRN (15:17)
[2020-12-17] MEDS ORDERED: DICYCLOMINE 10 MG CAP PO PRN (15:17)
[2020-12-17] MEDS ORDERED: ERGOCALCIFEROL 1,250 MCG (50,000 IU) CAPSULE PO SCH (15:30)
--- NOTE | 2020-12-17 16:06 | PN ---
PROGRESS NOTE DATE OF SERVICE: 12/17/2020 This 60-year-old woman who was admitted with a fall and severe back pain with acute minimally displaced fracture through the superior L4 vertebra is being closely monitored at this time. Orthopedic Surgery, Dr. Villa, has seen the patient and recommended aggressive ambulation protocol and conservative line of management. The patient is being closely monitored. No chest pain. No palpitations. No fever. The patient was complaining of significant weakness also. PHYSICAL EXAMINATION: Alert and oriented x3. Pulse 78, blood pressure 133/85, respiration 18, temperature 97.7, pulse ox 96% on room air. HEENT: Conjunctivae normal. NECK: No jugular venous distention. CARDIOVASCULAR SYSTEM: S1, S2 muffled. RESPIRATORY SYSTEM: Breath sounds diminished at the bases. No rhonchi. No crackles. ABDOMEN: Soft, non-tender. LEGS: No edema. No swelling. NERVOUS SYSTEM: No focal deficit. LABS: Sodium 136, potassium 3.3, and alcohol was 235. Alkaline phosphatase 210. ASSESSMENT: 1. Fall and severe back pain with acute minimally displaced fracture through the superior L4 vertebra. 2. Gait dysfunction secondary to that. 3. Generalized weakness, asthenia. 4. History of EtOH and alcohol intoxication, present on admission. 5. History of chronic liver disease secondary to alcoholic liver disease and cirrhosis with repeated abdominal paracenteses. 6. History of asthma. 7. History of coronary artery disease. 8. History of cerebrovascular accident, transient ischemic attack. 9. History of seizure disorder. 10.History of cholecystectomy. 11.History of anxiety, depression. 12.History of nicotine dependence. 13.History of EtOH. 14.History of tetrahydrocannabinol. 15.Gait dysfunction. RECOMMENDATIONS AND DISCUSSION: I recommend to continue current medications, continue with the monitoring, symptomatic treatment. Otherwise at this time I would recommend conservative line of management, PT/OT evaluation and assess the patient for inpatient rehab. Supplement potassium and magnesium. Repeat labs. Prognosis is extremely guarded because of the multiple complex medical issues. Further recommendations to follow. MMODL / IJN: [id number] /
[2020-12-17 16:11] LABS: Anisocytosis Slight; Basophils # (A) 0.1 k/uL (0-0.2); Basophils % (A) 1 %; Eosinophils # (A) 0.1 k/uL (0-0.7); Eosinophils % (A) 1 %; HCT 36.4 % (34.0-46.0); HGB 11.7 gm/dL (11.4-16.0); Hypochromasia Slight; Lymphocytes # (A) 1.2 k/uL (1.0-4.8); Lymphocytes % (A) 21 %; MCH 27.8 pg (25.0-35.0); MCHC 32.1 g/dL (31.0-37.0); MCV 86.5 fL (80.0-100.0); Mean Platelet Volume 7.1; Monocytes # (A) 0.3 k/uL (0-1.0); Monocytes % (A) 5 %; Neutrophils # (A) 4.1 k/uL (1.3-7.7); Neutrophils % (A) 69 %; Platelet Count 186 k/uL (150-450); RBC 4.21 m/uL (3.80-5.40); RDW 18.7 % (11.5-15.5); WBC 5.9 k/uL (3.8-10.6)
[2020-12-17 16:19] LABS: African American GFR (CKD) >90 (>60 ml/min/1.73 sqM); Anion Gap 4 mmol/L; Blood Urea Nitrogen 4 mg/dL (7-17); Calcium 8.6 mg/dL (8.4-10.2); Carbon Dioxide 38 mmol/L (22-30); Chloride 91 mmol/L (98-107); Glucose 109 mg/dL (74-99); Non-African American GFR(CKD) >90 (>60 ml/min/1.73 sqM); Sodium 133 mmol/L (137-145)
[2020-12-17 16:38] LABS: Potassium 3.5 mmol/L (3.5-5.1)
[2020-12-17] MEDS: SODIUM CHLORIDE 0.9% 1,000 ML IV SCH (17:45)
[2020-12-17 20:13] LABS: Appearance,Urine Clear (Clear); Bilirubin,Urine Negative (Negative); Blood,Urine Negative (Negative); Color,Urine Light Yellow; Glucose,Urine (UA) Negative (Negative); Ketones,Urine Negative (Negative); Leukocyte Esterase,Urine Small (Negative); Nitrite,Urine Negative (Negative); Protein,Urine Negative (Negative); RBC,Urine 2 /hpf (0-5); Specific Gravity,Urine 1.004 (1.001-1.035); Squamous Epithelial Cell,Urine 3 /hpf (0-4); Urobilinogen,Urine <2.0 mg/dL (<2.0); WBC,Urine 4 /hpf (0-5)
[2020-12-18] MEDS: SPIRONOLACTONE 25 MG TAB PO SCH (08:29)
[2020-12-18] MEDS: PANTOPRAZOLE 40 MG TABLET PO SCH (08:30)
[2020-12-18] MEDS: NICOTINE 21MG/24HR PATCH TRANSDERM SCH (08:30)
[2020-12-18] MEDS: FUROSEMIDE 40 MG TAB PO SCH (08:30)
[2020-12-18] MEDS: THIAMINE 100 MG TAB PO SCH ×2 (08:30→16:24)
[2020-12-18] MEDS: MULTIVITAMINS, THERA 1 EACH TAB PO SCH (08:30)
[2020-12-18] MEDS: ASPIRIN 81 MG PO SCH (08:30)
[2020-12-18] MEDS ORDERED: MULTIVITAMINS, THERA 1 EACH TAB PO SCH (09:00)
[2020-12-18] MEDS: FLUTICASONE 50MCG/SPRAY NASAL 16GM EA NOSTRIL SCH (09:51)
[2020-12-18 11:44] LABS: Basophils # (A) 0.07 X 10*3/uL (0.00-0.10); Basophils % (A) 1.3 %; Eosinophils % (A) 1.9 %; HCT 34.7 % (37.2-46.3); HGB 10.7 g/dL (12.0-15.0); Lymphocytes # (A) 1.33 X 10*3/uL (0.90-5.00); Lymphocytes % (A) 25.6 %; MCH 27.4 pg (27.0-32.0); MCHC 30.8 g/dL (32.0-37.0); Monocytes # (A) 0.37 X 10*3/uL (0.20-1.00); Monocytes % (A) 7.1 %; Neutrophils # (A) 3.32 X 10*3/uL (1.80-7.70); Neutrophils % (A) 63.9 %; Platelet Count 139 X 10*3/uL (140-440); RDW 19.7 % (11.5-14.5)
[2020-12-18 11:50] LABS: African American GFR (CKD) 132.1 (60.0-200.0); Blood Urea Nitrogen <5.0 mg/dL (9.0-27.0); Calcium 8.4 mg/dL (8.7-10.3); Carbon Dioxide 33.4 mmol/L (21.6-31.8); Chloride 97 mmol/L (96-109); Glucose 88 mg/dL (70-110); Magnesium 1.3 mg/dL (1.5-2.4); Potassium 3.3 mmol/L (3.5-5.5); Sodium 137 mmol/L (135-145)
[2020-12-18] MEDS: POTASSIUM CHLORIDE ER 20 MEQ TAB.ER PO SCH ×4 (13:04→21:28)
--- NOTE | 2020-12-18 14:16 | PN ---
PROGRESS NOTE DATE OF SERVICE: 12/18/2020 This 60-year-old woman who was admitted with fall and severe back pain had L4 fracture. The patient is being closely monitored. Symptomatic treatment was provided. At this time, Dr. Villa is following the patient closely. The patient also has significant history of EtOH, possibly very poor social support also. ECF rehab is also being considered. PHYSICAL EXAMINATION: GENERAL: Alert and oriented x3. VITAL SIGNS: Pulse is 70, blood pressure 137/89, respirations 16, temperature 98.2, pulse ox 97% on room air. HEENT: Conjunctivae normal. Oral mucosa moist. RESPIRATORY: Breath sounds diminished at the bases. No rhonchi, no crackles. HEART: S1 and S2, muffled. ABDOMEN: Soft, no tenderness. No masses palpable. EXTREMITIES: No edema, no swelling. NERVOUS: No focal deficits. MUSCULOSKELETAL: Back tenderness present. LABS: Hemoglobin 10.7, platelets are 139, potassium 3.2, sodium 137, magnesium 1.3. ASSESSMENT: 1. Fall and severe back pain with acute minimally displaced fracture through the superior L4 vertebra. 2. Gait dysfunction secondary to that. 3. Hypokalemia. 4. Hypomagnesemia. 5. Generalized weakness and asthenia. 6. History of ETOH, alcohol intoxication, present on admission. 7. History of chronic liver disease secondary to alcoholic liver disease, cirrhosis of liver. Repeated abdominal paracentesis. 8. History of asthma. 9. History of coronary artery disease. 10.History of cerebrovascular accident, transient ischemic attack. 11.History of seizure disorder. 12.History of cholecystectomy. 13.Anxiety, depression. 14.Nicotine dependence. 15.History of THC. 16.Gait dysfunction. RECOMMENDATIONS AND DISCUSSION: I recommend to continue with continue the pain med. Increase ambulation. coke worker case management team to ensure adequate followup at home and consider possible ECF rehab because of the above mentioned multiple complex medical issues. Guarded prognosis. Further recommendations to follow. MMODL / IJN: [id number] /
[2020-12-18] MEDS: traMADol 50 MG TAB PO PRN ×2 (16:24→21:31)
[2020-12-18] MEDS ORDERED: Potassium Replacement Protocol 1 EACH MISC MISCELLANE PRN (19:34)
[2020-12-18] MEDS: SODIUM CHLORIDE 0.9% 1,000 ML IV SCH (20:21)
[2020-12-18] MEDS: ONDANSETRON 4 MG/2 ML VIAL IVP PRN (21:28)
[2020-12-19] MEDS: PANTOPRAZOLE 40 MG TABLET PO SCH (07:15)
[2020-12-19] MEDS: traMADol 50 MG TAB PO PRN ×3 (07:15→21:53)
[2020-12-19] MEDS: SPIRONOLACTONE 25 MG TAB PO SCH (07:15)
[2020-12-19] MEDS: MULTIVITAMINS, THERA 1 EACH TAB PO SCH (07:15)
[2020-12-19] MEDS: ASPIRIN 81 MG PO SCH (07:15)
[2020-12-19] MEDS: NICOTINE 21MG/24HR PATCH TRANSDERM SCH (07:16)
[2020-12-19] MEDS: FUROSEMIDE 40 MG TAB PO SCH (07:16)
[2020-12-19] MEDS: THIAMINE 100 MG TAB PO SCH ×2 (07:16→15:54)
[2020-12-19] MEDS: FLUTICASONE 50MCG/SPRAY NASAL 16GM EA NOSTRIL SCH (07:16)
[2020-12-19 10:36] LABS: Basophils # (A) 0.07 X 10*3/uL (0.00-0.10); Basophils % (A) 1.1 %; Eosinophils # (A) 0.19 X 10*3/uL (0.04-0.35); Eosinophils % (A) 3.1 %; HCT 34.8 % (37.2-46.3); HGB 10.7 g/dL (12.0-15.0); Lymphocytes # (A) 2.05 X 10*3/uL (0.90-5.00); Lymphocytes % (A) 33.1 %; MCH 27.7 pg (27.0-32.0); MCHC 30.7 g/dL (32.0-37.0); MCV 90.2 fL (80.0-97.0); Mean Platelet Volume 10.4 fL (9.5-12.2); Monocytes % (A) 6.5 %; Neutrophils # (A) 3.47 X 10*3/uL (1.80-7.70); Platelet Count 127 X 10*3/uL (140-440); RBC 3.86 X 10*6/uL (4.10-5.20); RDW 19.6 % (11.5-14.5); WBC 6.19 X 10*3/uL (4.50-10.00)
[2020-12-19 11:07] LABS: African American GFR (CKD) 122.8 (60.0-200.0); Anion Gap 5.6 mmol/L (4.00-12.00); Calcium 8.2 mg/dL (8.7-10.3); Carbon Dioxide 32.4 mmol/L (21.6-31.8); Magnesium 1.3 mg/dL (1.5-2.4); Non-African American GFR(CKD) 105.9 (60.0-200.0); Potassium 4.2 mmol/L (3.5-5.5)
[2020-12-19] MEDS: MAGNESIUM OXIDE 400 MG TAB PO SCH ×3 (12:28→21:09)
--- NOTE | 2020-12-19 15:27 | PN ---
PROGRESS NOTE DATE OF SERVICE: 01/08/2021 This is a 60-year-old woman who was admitted with fall and severe back pain. Had a superior endplate fracture of the L4. The patient is being closely monitored. No chest pain. No palpitations. No fever. PHYSICAL EXAMINATION: GENERAL: Patient is alert and oriented times three. VITAL SIGNS: Pulse 71, blood pressure 120/80, respirations 19, temperature 97.7, pulse ox 100% on room air. HEENT: Conjunctivae normal. Oral mucosa moist. NECK: No jugular venous distention. No carotid bruits. No lymph node enlargement. RESPIRATORY: Breath sounds diminished at the bases. No rhonchi, no crackles. HEART: S1 and S2, muffled. ABDOMEN: Soft, no tenderness. No masses palpable. EXTREMITIES: No edema, no swelling. NERVOUS: Mild diffuse weakness. LABS: Hemoglobin 10.7. Other labs are noted. ASSESSMENT: 1. Fall and severe back pain with acute minimally displaced fracture through the superior L4 vertebra. 2. Gait dysfunction secondary to #1. 3. Hypokalemia. 4. Hypomagnesemia. 5. Generalized weakness and asthenia. 6. History of ETOH, alcohol intoxication, present on admission. 7. History of chronic liver disease secondary to alcoholic liver disease, cirrhosis of the liver and repeated abnormal paracentesis. 8. History of asthma. 9. History of coronary artery disease. 10.History of cerebrovascular accident, transient ischemic attack. 11.History of seizure disorder. 12.History of cholecystectomy. 13.Anxiety, depression. 14.History of nicotine dependence. 15.History of THC. 16.Gait dysfunction. RECOMMENDATIONS AND DISCUSSION: Continue current medications. Continue to monitor. Symptomatic treatment. Repeat lytes. Otherwise, increase ambulation. Symptomatic treatment. Guarded prognosis. Further recommendations to follow. MMODL / IJN: [id number] /
[2020-12-19 20:38] VITALS: RESP 16
[2020-12-20] MEDS: SODIUM CHLORIDE 0.9% 1,000 ML IV SCH (01:54)
[2020-12-20] MEDS: traMADol 50 MG TAB PO PRN (03:55)
[2020-12-20 05:09] VITALS: BP 136/88; PULSE 78; TEMP 97.7
[2020-12-20 09:01] LABS: Basophils # (A) 0.15 X 10*3/uL (0.00-0.10); Basophils % (A) 1.6 %; Eosinophils # (A) 0.27 X 10*3/uL (0.04-0.35); HGB 11.8 g/dL (12.0-15.0); Lymphocytes # (A) 2.67 X 10*3/uL (0.90-5.00); Lymphocytes % (A) 29.3 %; MCH 27.9 pg (27.0-32.0); MCHC 31.1 g/dL (32.0-37.0); MCV 89.8 fL (80.0-97.0); Mean Platelet Volume 10.9 fL (9.5-12.2); Monocytes # (A) 0.43 X 10*3/uL (0.20-1.00); Monocytes % (A) 4.7 %; Neutrophils # (A) 5.56 X 10*3/uL (1.80-7.70); Platelet Count 158 X 10*3/uL (140-440); RBC 4.23 X 10*6/uL (4.10-5.20); RDW 19.9 % (11.5-14.5); WBC 9.12 X 10*3/uL (4.50-10.00)
[2020-12-20] MEDS: PANTOPRAZOLE 40 MG TABLET PO SCH (09:29)
[2020-12-20] MEDS: MAGNESIUM OXIDE 400 MG TAB PO SCH (09:29)
[2020-12-20] MEDS: MULTIVITAMINS, THERA 1 EACH TAB PO SCH (09:46)
[2020-12-20] MEDS: NICOTINE 21MG/24HR PATCH TRANSDERM SCH (09:46)
[2020-12-20] MEDS: THIAMINE 100 MG TAB PO SCH (09:46)
[2020-12-20] MEDS: FLUTICASONE 50MCG/SPRAY NASAL 16GM EA NOSTRIL SCH (09:46)
[2020-12-20] MEDS: SPIRONOLACTONE 25 MG TAB PO SCH (09:46)
[2020-12-20] MEDS: ASPIRIN 81 MG PO SCH (09:46)
[2020-12-20] MEDS: FUROSEMIDE 40 MG TAB PO SCH (09:46)
[2020-12-20 09:48] LABS: African American GFR (CKD) 122.8 (60.0-200.0); Calcium 8.6 mg/dL (8.7-10.3); Non-African American GFR(CKD) 105.9 (60.0-200.0); Potassium 3.8 mmol/L (3.5-5.5)
--- NOTE | 2020-12-20 13:54 | P.DS ---
Providers Date of admission: 12/17/20 19:06 Expected date of discharge: 12/20/20 Attending physician: Mark Cardoza Consults: 12/16/20 17:23 Consult Physician Urgent Consulting Provider: Camden Villa Consult Reason/Comments: l4 Do you want consulting provider notified?: Already Contacted Primary care physician: Miya Johnson [facility] Course: Final Diagnosis Fall and severe back pain with acute minimally displaced fracture through the superior L4 vertebrae Gait dysfunction secondary to #1 Hypokalemia hypomagnesemia Generalized weakness and asthenia history of EtOH, alcohol intoxication, present on admission History of chronic liver disease secondary to alcohol liver disease, cirrhosis of the liver and repeated abnormal paracentesis History of asthma History of coronary artery disease history of CVA/TIA History of seizure disorder history of cholecystectomy Anxiety, depression history of nicotine dependence History of THC Gait dysfunction Discharge disposition Patient is being discharged in a stable condition with guarded prognosis to home. Patient will continue with home care in the outpatient setting. Patient will follow-up with Dr. Johnson in the outpatient setting upon discharge. Patient will also follow-up with orthopedic surgery Dr. Villa in 2 weeks. Total time taken is greater than 35 minutes. Hospital course This is a 60-year-old female who was recently admitted with fall and severe back pain and was found to have a superior endplate fracture of L4 and was being closely monitored. Orthopedic surgery evaluated the patient and patient will follow-up with them in the outpatient setting. Patient is to continue with back brace as instructed. She was seen and evaluated by PT/OT therapy and is currently refusing rehab but is agreeable to home care in the outpatient setting. She states she lives with her daughter who helps her with appointments and taking care of her. Patient instructed to avoid alcohol intake. Recommend ed follow-up appointment with Dr. Johnson this week and recommended repeat labs. Currently no reports of chest pain, shortness of breath, or palpitations. Patient is afebrile. No reports of nausea or vomiting and patient is tolerating diet. Patient will be discharged home today. Guarded prognosis On exam vital signs are stable. Cardio S1, S2 are muffled. Respiratory system shows diminished breath sounds at the bases with no wheezing or rhonchi noted. Abdomen is soft and non-tender. Nervous system shows no focal deficits. Please refer to medication reconciliation sheet for a list of medications. Patient Condition at Discharge: Fair Plan - Discharge Summary Discharge Rx Participant: Yes New Discharge Prescriptions: New Nicotine 21Mg/24Hr Patch [Habitrol] 1 patch TRANSDERM DAILY #20 patch Magnesium Oxide [Mag-Ox] 400 mg PO TID 30 Days #90 tab traMADol HCl [Ultram] 50 mg PO Q6H PRN #20 tab PRN Reason: Moderate Pain Continue Aspirin EC [Ecotrin Low Dose] 81 mg PO DAILY Pantoprazole [Protonix] 40 mg PO DAILY Ergocalciferol (Vitamin D2) [Vitamin D2 (50,000 Iu)] 1 tab PO FR Dicyclomine HCl 10 mg PO TID PRN PRN Reason: IBS Multivitamin [Multivitamins Adult Gummies] 1 tab PO DAILY Spironolactone 100 mg PO DAILY Furosemide [Lasix] 40 mg PO DAILY Fluticasone Nasal [place] [Flonase Nasal [place]] 1 spray EA NOSTRIL DAILY Thiamine [Vitamin B-1] 100 mg PO BID-W/MEALS 30 Days #60 tab Ibuprofen [Motrin] 400 mg PO Q6HR PRN PRN Reason: Pain Discharge Medication List Aspirin EC [Ecotrin Low Dose] 81 mg PO DAILY 02/11/19 [History] Pantoprazole [Protonix] 40 mg PO DAILY 09/10/19 [History] Ergocalciferol (Vitamin D2) [Vitamin D2 (50,000 Iu)] 1 tab PO FR 10/15/20 [History] Dicyclomine HCl 10 mg PO TID PRN 11/20/20 [History] Multivitamin [Multivitamins Adult Gummies] 1 tab PO DAILY 11/20/20 [History] Furosemide [Lasix] 40 mg PO DAILY 11/29/20 [History] Spironolactone 100 mg PO DAILY 11/29/20 [History] Fluticasone Nasal [place] [Flonase Nasal [place]] 1 spray EA NOSTRIL DAILY 11/30/20 [History] Thiamine [Vitamin B-1] 100 mg PO BID-W/MEALS 30 Days #60 tab 12/01/20 [Rx] Ibuprofen [Motrin] 400 mg PO Q6HR PRN 12/10/20 [History] Magnesium Oxide [Mag-Ox] 400 mg PO TID 30 Days #90 tab 12/20/20 [Rx] Nicotine 21Mg/24Hr Patch [Habitrol] 1 patch TRANSDERM DAILY #20 patch 12/20/20 [Rx] traMADol HCl [Ultram] 50 mg PO Q6H PRN #20 tab 12/20/20 [Rx] Follow up Appointment(s)/Referral(s): [facility], [NON-STAFF] - Miya Johnson MD [Primary Care Provider] - 12/30/20 1:15 pm Camden Villa DO [Doctor of Osteopathic Medicine] - 2 Weeks Patient Instructions/Handouts: Vertebral Compression Fracture (DC), Alcohol Intoxication (DC) Activity/Diet/Wound Care/Special Instructions: Activity Limited until follow-up follow up with Primary care provider upon discharge Continue with heart healthy diet Avoid alcohol intake Follow-up with orthopedic surgery outpatient Continue to follow-up with GI outpatient Discharge Disposition: HOME WITH HOME HEALTH SERVICES
== END 2020-12-20 13:30 | disposition home health service (06) | DRG 552 ==
LOC: EC 14:55 → 6NMEDSUR 18:05 → OBSVTOIN 12-17 19:06 → INTOOBSV 12-17 19:06 → 5NMEDONC 12-17 20:38
PROVIDERS: ADMIT Hospitalist; ATTEND Hospitalist
DX: S32.049A Unspecified fracture of fourth lumbar vertebra, initial encounter for closed fracture (principal); E87.6 Hypokalemia; E83.42 Hypomagnesemia; F10.10 Alcohol abuse, uncomplicated; F17.200 Nicotine dependence, unspecified, uncomplicated; F32.9 Major depressive disorder, single episode, unspecified; F41.9 Anxiety disorder, unspecified; G40.909 Epilepsy, unspecified, not intractable, without status epilepticus; G89.29 Other chronic pain; I25.10 Atherosclerotic heart disease of native coronary artery without angina pectoris; J45.909 Unspecified asthma, uncomplicated; K70.9 Alcoholic liver disease, unspecified; R29.6 Repeated falls; W18.30XA Fall on same level, unspecified, initial encounter; R26.9 Unspecified abnormalities of gait and mobility; M47.816 Spondylosis without myelopathy or radiculopathy, lumbar region; K74.60 Unspecified cirrhosis of liver; I25.2 Old myocardial infarction; Z86.73 Personal history of transient ischemic attack (TIA), and cerebral infarction without residual deficits; Z82.5 Family history of asthma and other chronic lower respiratory diseases; Z79.899 Other long term (current) drug therapy; Z79.82 Long term (current) use of aspirin; Z90.49 Acquired absence of other specified parts of digestive tract; Z82.49 Family history of ischemic heart disease and other diseases of the circulatory system; Z80.1 Family history of malignant neoplasm of trachea, bronchus and lung; Z88.5 Allergy status to narcotic agent; Z88.7 Allergy status to serum and vaccine
CPT/HCPCS: 36415; 72100; 72131; 72220; 80048; 80053; 80320; 81001; 83735; 84132; 85025; 85610; 85730; 96374; 96376; 99285

== ENCOUNTER 2020-12-24 15:44 | Emergency (ER) | payer OTHER ==
[2020-12-24 15:49] VITALS: RESP 20
[2020-12-24] MEDS ORDERED: KETOROLAC 15 MG/ML 1 ML VIAL IVP STA (16:12)
--- NOTE | 2020-12-24 16:49 | XR ---
Result: History: Worsening low back pain. Comparison: 12/16/2020. Technique: 5 views of the lumbar spine. Findings: The bone mineralization is age-appropriate. There is unchanged subacute mild to moderate L4 compression fracture. No significant progression of h eight loss, compared to the prior study. Chronic mild L1 compression deformity is stable. No acute fracture or subluxation. There is moderate disc height narrowing at L4-L5, otherwise mild el sewhere. There is mild facet arthropathy in the lower lumbar spine. No significant spondylolisthesis. Atherosclerotic calcifications are seen. Impression: No new osseous abnormality. Stable subacute mild to moderate L4 compression fracture. Chronic L1 compression fracture.
--- NOTE | 2020-12-24 17:26 | ED ---
General Adult HPI - General Chief complaint: Back Pain/Injury Stated complaint: Back pain Time Seen by Provider: 12/24/20 15:46 Source: EMS Mode of arrival: EMS Limitations: no limitations - History of Present Illness Initial comments: 60-year-old female patient presents to the emergency department today for evaluation of increased back pain after experiencing a fall today. Patient states she is using her walker going backwards when she lost her balance and fell landing on her buttocks. Denies hitting her head or losing consciousness. Denies any neck pain. States she was recently diagnosed with an L4 fractures concerned she may worse. She denies any radiating pain down her legs. Denies new numbness or tingling. Denies any loss of bowel or bladder control or saddle anesthesia. Denies any other injuries. Patient denies any headache, chest pain, shortness of breath, dizziness, weakness, abdominal pain, nausea, vomiting, or difficulties with bowel movements or urination. - Related Data Home Medications Medication Instructions Recorded Confirmed Aspirin EC [Ecotrin Low Dose] 81 mg PO DAILY 02/11/19 12/24/20 Pantoprazole [Protonix] 40 mg PO DAILY 09/10/19 12/24/20 Ergocalciferol (Vitamin D2) 1 tab PO FR 10/15/20 12/24/20 [Vitamin D2 (50,000 Iu)] Dicyclomine HCl 10 mg PO TID PRN 11/20/20 12/24/20 Multivitamin [Multivitamins Adult 1 tab PO DAILY 11/20/20 12/24/20 Gummies] Furosemide [Lasix] 40 mg PO DAILY 11/29/20 12/24/20 Spironolactone 100 mg PO DAILY 11/29/20 12/24/20 Fluticasone Nasal [place] [Flonase 1 spray EA NOSTRIL DAILY 11/30/20 12/24/20 Nasal [place]] Ibuprofen [Motrin] 400 mg PO Q6HR PRN 12/10/20 12/24/20 Thiamine [Vitamin B-1] 100 mg PO AC-BID 12/24/20 12/24/20 Previous Rx's Medication Instructions Recorded Magnesium Oxide [Mag-Ox] 400 mg PO TID 30 Days #90 tab 12/20/20 Nicotine 21Mg/24Hr Patch [Habitrol] 1 patch TRANSDERM DAILY #20 patch 12/20/20 traMADol HCl [Ultram] 50 mg PO Q6H PRN #20 tab 12/20/20 Allergies Allergy/AdvReac Type Severity Reaction Status Date / Time Influenza Virus Vaccines AdvReac Nausea & Verified 12/24/20 17:26 Vomiting morphine AdvReac Nausea & Verified 12/24/20 17:26 Vomiting Review of Systems ROS Statement: Those systems with pertinent positive or pertinent negative responses have been documented in the HPI. ROS Other: All systems not noted in ROS Statement are negative. Past Medical History Past Medical History: Asthma, Coronary Artery Disease (CAD), CVA/TIA, Liver Disease, Myocardial Infarction ([place]), Seizure Disorder Additional Past Medical History / Comment(s): DDD, CVA 06/2019, pt. states they have a blockage in their heart, NERVE DAMAGE GREGORY LEGS, ascites Last Myocardial Infarction Date:: aug 2018 History of Any Multi-Drug Resistant Organisms: None Reported Past Surgical History: Cholecystectomy, Heart Catheterization, Joint Replacement, Orthopedic Surgery Additional Past Surgical History / Comment(s): bartholin gland cyst removal, stent placed, multi paracentesis Past Anesthesia/Blood Transfusion Reactions: No Reported Reaction Past Psychological History: Anxiety, Depression Smoking Status: Current every day smoker Past Alcohol Use History: Daily, Occasional Past Drug Use History: Marijuana - Past Family History Mother Family Medical History: Cancer, Congestive Heart Failure (CHF), Coronary Artery Disease (CAD), Hyperlipidemia Additional Family Medical History / Comment(s): Mother at age 85 from lung cancer. Father Family Medical History: Cancer, COPD Additional Family Medical History / Comment(s): Father at age 63 from lung cancer. Brother(s) Additional Family Medical History / Comment(s): Patient has a total of 7 siblings. 5 are alive without any major medical problems she is aware of. 2 siblings have one from alcohol abuse and 1. Coronary artery disease. Daughter(s) Additional Family Medical History / Comment(s): Patient has one daughter with no major medical problems. General Exam Limitations: no limitations General appearance: alert, in no apparent distress, other (this is a well- developed, well-nourished adult female patient in no acute distress.) Head exam: Present: atraumatic, normocephalic, normal inspection Eye exam: Present: normal appearance, PERRL, EOMI. Absent: scleral icterus, conjunctival injection, nystagmus, periorbital swelling ENT exam: Present: normal exam, normal oropharynx, mucous membranes moist Respiratory exam: Present: normal lung sounds bilaterally. Absent: respiratory distress, wheezes, rales, rhonchi, stridor Cardiovascular Exam: Present: regular rate, normal rhythm, normal heart sounds. Absent: systolic murmur, diastolic murmur, rubs, gallop, clicks GI/Abdominal exam: Present: soft, normal bowel sounds. Absent: distended, tenderness, guarding, rebound, rigid Extremities exam: Present: normal inspection, full ROM, normal capillary refill, other (skin to the extremities is pink, warm, dry. Cap refills less than 3 seconds. Radial pulse and pedal pulses 2+ and equal bilaterally.). Absent: tenderness, pedal edema, joint swelling, calf tenderness Back exam: Present: normal inspection, vertebral tenderness (over the l4 vertebral region.) Neurological exam: Present: alert, oriented X3, CN II-XII intact Psychiatric exam: Present: normal affect, normal mood Skin exam: Present: warm, dry, intact, normal color. Absent: rash Course Vital Signs 12/24/20 15:47 Temperature 98.5 F Pulse Rate 100 Respiratory 20 Rate Blood Pressure 147/86 O2 Sat by Pulse 99 Oximetry Medical Decision Making - Medical Decision Making 60-year-old female patient presented to the emergency department today for evaluation of worsening back pain after experiencing a fall today. She has a known L4 compression fracture from a couple of weeks ago. Physical examination did reveal tenderness over the same region her low back. No skin abnormalities, no bony step-off or deformity noted to for midline palpation. X-ray was obtained and showed no new abnormalities and findings of the L4 and L1 consistent with her history. Patient will be discharged home to follow-up with her spinal surgeon for further evaluation as soon as possible. Return parameters were discussed in detail. She verbalizes understanding and agrees with this plan. Case discussed with Dr. Islas. - Radiology Data Radiology results: report reviewed, image reviewed 5 views of the lumbar spine were obtained. Report reviewed in its entirety. Impression by Dr. Hall shows no new osseous abnormality. Stable subacute [id number] L4 compression fracture. Chronic L1 compression fracture. Disposition Clinical Impression: Back pain Disposition: HOME SELF-CARE Condition: Good Instructions (If sedation given, give patient instructions): Acute Low Back Pain (ED) Additional Instructions: Take home pain medications as directed. Follow-up with Dr. Villa for further evaluation as soon as possible. Return to the emergency department for any new, worsening, or concerning symptoms. Is patient prescribed a controlled substance at d/c from ED?: No Referrals: Miya Johnson MD [Primary Care Provider] - 1-2 days Time of Disposition: 17:26
[2020-12-24 18:15] VITALS: BP 101/73; PULSE 96; TEMP 98.3
== END 2020-12-24 18:23 | disposition home or self-care (01) ==
LOC: EC 15:44
DX: S32.048A Other fracture of fourth lumbar vertebra, initial encounter for closed fracture (principal); F17.200 Nicotine dependence, unspecified, uncomplicated; J45.909 Unspecified asthma, uncomplicated; G40.909 Epilepsy, unspecified, not intractable, without status epilepticus; I25.2 Old myocardial infarction; Z79.82 Long term (current) use of aspirin; Z79.899 Other long term (current) drug therapy; Z88.5 Allergy status to narcotic agent; Z88.7 Allergy status to serum and vaccine; Z86.73 Personal history of transient ischemic attack (TIA), and cerebral infarction without residual deficits; Z95.5 Presence of coronary angioplasty implant and graft; Z90.49 Acquired absence of other specified parts of digestive tract; W18.30XA Fall on same level, unspecified, initial encounter
CPT/HCPCS: 72110; 99283; 96374; J1885

== ENCOUNTER 2021-02-20 19:03 | Observation (INO) | payer OTHER ==
--- NOTE | 2021-02-20 19:56 | ED ---
General Adult HPI - General Chief complaint: Abdominal Pain Stated complaint: Vomiting, afebrile Time Seen by Provider: 02/20/21 19:54 Source: patient Mode of arrival: ambulatory Limitations: no limitations - History of Present Illness Initial comments: Patient presents to the ED complaining of having nausea and vomiting since this morning. Patient states that she has also had intermittent "sharp" abdominal pain today, but she denies having any abdominal pain currently. Patient states that she drinks alcohol regularly, and she states that her last drink was last night. Patient denies trauma or injury, fever or chills, headache, seizure, focal neuro deficit, chest pain or pressure, dyspnea, cough or cold symptoms, palpitations, dizziness, back or flank pain, diarrhea or constipation, bloody or melanotic stool, hematemesis, dysuria/hematuria/urinary frequency/urinary symptoms, or any other symptoms or complaints. - Related Data Home Medications Medication Instructions Recorded Confirmed Aspirin EC [Ecotrin Low Dose] 81 mg PO DAILY 02/11/19 02/20/21 Pantoprazole [Protonix] 40 mg PO DAILY 09/10/19 02/20/21 Ergocalciferol (Vitamin D2) 1,250 mcg PO FR 10/15/20 02/20/21 [Vitamin D2 (50,000 Iu)] Dicyclomine HCl 10 mg PO TID PRN 11/20/20 02/20/21 Multivitamin [Multivitamins Adult 1 tab PO DAILY 11/20/20 02/20/21 Gummies] Furosemide [Lasix] 40 mg PO DAILY 11/29/20 02/20/21 Fluticasone Nasal [place] [Flonase 1 spray EA NOSTRIL DAILY 11/30/20 02/20/21 Nasal [place]] Ibuprofen [Motrin] 400 mg PO Q6HR PRN 12/10/20 02/20/21 Thiamine [Vitamin B-1] 100 mg PO AC-BID 12/24/20 02/20/21 Previous Rx's Medication Instructions Recorded Magnesium Oxide [Mag-Ox] 400 mg PO TID 30 Days #90 tab 12/20/20 traMADol HCl [Ultram] 50 mg PO Q6H PRN #20 tab 12/20/20 Allergies Allergy/AdvReac Type Severity Reaction Status Date / Time Influenza Virus Vaccines AdvReac Nausea & Verified 02/20/21 21:53 Vomiting morphine AdvReac Nausea & Verified 02/20/21 21:53 Vomiting Review of Systems ROS Statement: Those systems with pertinent positive or pertinent negative responses have been documented in the HPI. ROS Other: All systems not noted in ROS Statement are negative. Past Medical History Past Medical History: Asthma, Coronary Artery Disease (CAD), CVA/TIA, Liver Disease, Myocardial Infarction ([place]), Seizure Disorder Additional Past Medical History / Comment(s): DDD, CVA 06/2019, pt. states they have a blockage in their heart, NERVE DAMAGE GREGORY LEGS, ascites Last Myocardial Infarction Date:: aug 2018 History of Any Multi-Drug Resistant Organisms: None Reported Past Surgical History: Cholecystectomy, Heart Catheterization, Joint Replacement, Orthopedic Surgery Additional Past Surgical History / Comment(s): bartholin gland cyst removal, stent placed, multi paracentesis Past Anesthesia/Blood Transfusion Reactions: No Reported Reaction Past Psychological History: Anxiety, Depression Smoking Status: Current every day smoker Past Alcohol Use History: Daily, Occasional Past Drug Use History: Marijuana - Past Family History Mother Family Medical History: Cancer, Congestive Heart Failure (CHF), Coronary Artery Disease (CAD), Hyperlipidemia Additional Family Medical History / Comment(s): Mother at age 85 from lung cancer. Father Family Medical History: Cancer, COPD Additional Family Medical History / Comment(s): Father at age 63 from lung cancer. Brother(s) Additional Family Medical History / Comment(s): Patient has a total of 7 siblings. 5 are alive without any major medical problems she is aware of. 2 siblings have one from alcohol abuse and 1. Coronary artery disease. Daughter(s) Additional Family Medical History / Comment(s): Patient has one daughter with no major medical problems. General Exam Limitations: no limitations General appearance: alert Head exam: Present: atraumatic, normocephalic Eye exam: Present: normal appearance, PERRL, EOMI ENT exam: Present: mucous membranes dry Neck exam: Present: other (Trachea is in midline) Respiratory exam: Present: normal lung sounds bilaterally. Absent: respiratory distress, wheezes, rales, rhonchi, stridor Cardiovascular Exam: Present: normal rhythm, tachycardia, normal heart sounds, other (Normal radial pulses bilaterally) GI/Abdominal exam: Present: soft, normal bowel sounds, other (Moderate epigastric abdominal tenderness). Absent: distended, guarding, rebound Extremities exam: Absent: pedal edema Back exam: Absent: CVA tenderness (R), CVA tenderness (L) Neurological exam: Present: alert, oriented X3. Absent: motor sensory deficit Psychiatric exam: Present: normal affect, normal mood Skin exam: Present: warm, dry, intact, normal color Course Vital Signs 02/20/21 19:38 Temperature 97.5 F L Pulse Rate 122 H Respiratory 20 Rate Blood Pressure 126/63 O2 Sat by Pulse 95 Oximetry - Reevaluation(s) Reevaluation #1: 02/20/21 22:40 Case, H&P, test results and ED management thus far were discussed with mid-level provider Tonya. She accepts admission on behalf of herself and Dr. Cardoza. She has no further recommendations time. 02/20/21 22:42 Patient states that she still feels quite nauseated and generally weak. Patient's abdomen remains soft and without any surgical signs on examination. Patient remains alert and breathing comfortably. Patient states that she does not feel that she can be discharged home, and she feels that she should be admitted to the hospital for symptom control. Patient is aware of her test results. EKG Findings - EKG Comments: EKG Findings:: Sinus tachycardia, single PVC, ventricular rate of 110 bpm, normal FL and QRS intervals, prolonged QTc interval of 511 ms, nonspecific ST and T-wave abnormality, normal axis, no significant change when compared to 11/28/2020 EKG Medical Decision Making - Medical Decision Making Patient has a lactic acid level of 5.3, but I do not suspect that this is from sepsis. Patient is afebrile and she has only minimally elevated WBC count of 11.6. Patient has a nonsurgical abdominal exam. Patient's CT abdomen/pelvis with IV contrast does not reveal a definite explanation for the patient's abdominal pain and vomiting. Still, given that the patient continues to feel nauseated and generally weak, will admit the patient to the hospital for continued symptom management and IV fluid hydration. I suspect that alcohol withdrawal may perhaps be contributing to the patient's symptoms as well. Mid- level provider Tonya has accepted admission on behalf of herself and Dr. Cardoza. - Lab Data Result diagrams: 02/20/21 20:25 02/20/21 20:25 Lab Results 02/20/21 02/20/2102/20/21 Range/Units 20:25 20:25 20:25 WBC 11.6 H (3.8-10.6) k/uL RBC 5.01 (3.80-5.40) m/uL Hgb 15.2 D (11.4-16.0) gm/dL Hct 44.4 (34.0-46.0) % MCV 88.6 (80.0-100.0) fL MCH 30.3 (25.0-35.0) pg MCHC 34.2 (31.0-37.0) g/dL RDW 19.1 H (11.5-15.5) % Plt Count 104 L (150-450) k/uL MPV 7.4 Neutrophils % 90 % Lymphocytes % 5 % Monocytes % 3 % Eosinophils % 1 % Basophils % 1 % Neutrophils # 10.4 H (1.3-7.7) k/uL Lymphocytes # 0.6 L (1.0-4.8) k/uL Monocytes # 0.3 (0-1.0) k/uL Eosinophils # 0.1 (0-0.7) k/uL Basophils # 0.1 (0-0.2) k/uL Anisocytosis Slight Sodium 137 (137-145) mmol/L Potassium 3.8 (3.5-5.1) mmol/L Chloride 98 (98-107) mmol/L Carbon Dioxide 23 (22-30) mmol/L Anion Gap 16 mmol/L BUN 7 (7-17) mg/dL Creatinine 0.42 L (0.52-1.04) mg/dL Est GFR (CKD-EPI)AfAm >90 (>60 ml/min/1.73 sqM) Est GFR (CKD-EPI)NonAf >90 (>60 ml/min/1.73 sqM) Glucose 179 H (74-99) mg/dL Plasma Lactic Acid [place]ron 5.3 H* (0.7-2.0) mmol/L Calcium 9.9 (8.4-10.2) mg/dL Magnesium 1.5 L (1.6-2.3) mg/dL Total Bilirubin 1.6 H (0.2-1.3) mg/dL AST 62 H (14-36) U/L ALT 28 (4-34) U/L Alkaline Phosphatase 288 H (38-126) U/L Troponin I (0.000-0.034) ng/mL Total Protein 8.1 (6.3-8.2) g/dL Albumin 4.8 (3.5-5.0) g/dL Amylase 54 (30-110) U/L Lipase 67 (23-300) U/L Serum Alcohol <10 mg/dL 02/20/21 Range/Units 20:25 WBC (3.8-10.6) k/uL RBC (3.80-5.40) m/uL Hgb (11.4-16.0) gm/dL Hct (34.0-46.0) % MCV (80.0-100.0) fL MCH (25.0-35.0) pg MCHC (31.0-37.0) g/dL RDW (11.5-15.5) % Plt Count (150-450) k/uL MPV Neutrophils % % Lymphocytes % % Monocytes % % Eosinophils % % Basophils % % Neutrophils # (1.3-7.7) k/uL Lymphocytes # (1.0-4.8) k/uL Monocytes # (0-1.0) k/uL Eosinophils # (0-0.7) k/uL Basophils # (0-0.2) k/uL Anisocytosis Sodium (137-145) mmol/L Potassium (3.5-5.1) mmol/L Chloride (98-107) mmol/L Carbon Dioxide (22-30) mmol/L Anion Gap mmol/L BUN (7-17) mg/dL Creatinine (0.52-1.04) mg/dL Est GFR (CKD-EPI)AfAm (>60 ml/min/1.73 sqM) Est GFR (CKD-EPI)NonAf (>60 ml/min/1.73 sqM) Glucose (74-99) mg/dL Plasma Lactic Acid [place] (0.7-2.0) mmol/L Calcium (8.4-10.2) mg/dL Magnesium (1.6-2.3) mg/dL Total Bilirubin (0.2-1.3) mg/dL AST (14-36) U/L ALT (4-34) U/L Alkaline Phosphatase (38-126) U/L Troponin I <0.012 (0.000-0.034) ng/mL Total Protein (6.3-8.2) g/dL Albumin (3.5-5.0) g/dL Amylase (30-110) U/L Lipase (23-300) U/L Serum Alcohol mg/dL - Radiology Data CT abdomen/pelvis with IV contrast: There is increased size of the left and right renal pelvis compared to old exam, delayed images however show fairly normal excretion, partial obstruction of the ureters possible, moderate sigmoid diverticulosis without convincing evidence of diverticulitis, there are new compression fractures of L4 and L1 vertebra compared to old exam Disposition Clinical Impression: Abdominal pain, Nausea and vomiting Disposition: ADMITTED IP TO THIS [facility] Condition: Stable When asked, does pt state using other controlled substances?: No Referrals: Miya Johnson MD [Primary Care Provider] - 1-2 days Time of Disposition: 22:41
[2021-02-20] MEDS ORDERED: ONDANSETRON 4 MG/2 ML VIAL IVP STA (20:02)
[2021-02-20] MEDS ORDERED: SODIUM CHLORIDE 0.9% 1,000 ML IV STA (20:02)
[2021-02-20] MEDS ORDERED: LORazepam 2 MG/ML INJ IV STA (20:19)
[2021-02-20 20:42] LABS: Anisocytosis Slight; Basophils # (A) 0.1 k/uL (0-0.2); Basophils % (A) 1 %; Eosinophils # (A) 0.1 k/uL (0-0.7); Eosinophils % (A) 1 %; HCT 44.4 % (34.0-46.0); Lymphocytes # (A) 0.6 k/uL (1.0-4.8); Lymphocytes % (A) 5 %; MCH 30.3 pg (25.0-35.0); MCHC 34.2 g/dL (31.0-37.0); MCV 88.6 fL (80.0-100.0); Mean Platelet Volume 7.4; Monocytes # (A) 0.3 k/uL (0-1.0); Monocytes % (A) 3 %; Neutrophils # (A) 10.4 k/uL (1.3-7.7); Neutrophils % (A) 90 %; Platelet Count 104 k/uL (150-450); RBC 5.01 m/uL (3.80-5.40); RDW 19.1 % (11.5-15.5); WBC 11.6 k/uL (3.8-10.6)
[2021-02-20 20:54] LABS: AST 62 U/L (14-36); African American GFR (CKD) >90 (>60 ml/min/1.73 sqM); Albumin 4.8 g/dL (3.5-5.0); Alcohol <10 mg/dL; Alkaline Phosphatase 288 U/L (38-126); Amylase 54 U/L (30-110); Anion Gap 16 mmol/L; Blood Urea Nitrogen 7 mg/dL (7-17); Calcium 9.9 mg/dL (8.4-10.2); Carbon Dioxide 23 mmol/L (22-30); Chloride 98 mmol/L (98-107); Glucose 179 mg/dL (74-99); Lipase 67 U/L (23-300); Magnesium 1.5 mg/dL (1.6-2.3); Non-African American GFR(CKD) >90 (>60 ml/min/1.73 sqM); Potassium 3.8 mmol/L (3.5-5.1); Sodium 137 mmol/L (137-145); Total Bilirubin 1.6 mg/dL (0.2-1.3); Total Protein 8.1 g/dL (6.3-8.2)
[2021-02-20 20:59] LABS: HGB 15.2 gm/dL (11.4-16.0)
[2021-02-20 21:11] LABS: ALT 28 U/L (4-34)
[2021-02-20] MEDS ORDERED: SODIUM CHLORIDE 0.9% 1,000 ML IV ONE (21:18)
--- NOTE | 2021-02-20 22:17 | CT ---
EXAMINATION TYPE: CT abdomen pelvis w con DATE OF EXAM: 02/20/2021 COMPARISON: HISTORY: Abdominal pain and vomiting. CT DLP: 686.6 mGycm Automated exposure control for dose reduction was used. CONTRAST: Performed with IV Contrast, patient injected with 100ml mL of Isovue 300. Lung bases are clear. There is no pleural effusion. Heart size is normal. There is no pericardial eff usion. There is some fatty infiltration of the liver. Spleen pancreas stomach appear intact. There are clips from cholecystectomy. There is 5 mm rounded hypodensity lateral right lobe of the liver that is prob ably a cyst. There is no adrenal mass. Kidneys show satisfactory contrast opacification. There is mild fullness of the left renal pelvis. Ureters are not dilated. Delayed images show normal renal excretion. There is no retroperitoneal adenopathy. Bladder distends smoothly. Uterus is anteverted. There is no free fluid in the pelvis. There is no evidence of pelvic mass. Ther e are numerous sigmoid diverticula. There is some mild hypertrophic change of the mid sigmoid colon. Appendix appears to be posterior and appears normal. There is no mesenteric edema. There is no ascite s or free air. There is no bowel obstruction. Lumbar vertebra have normal alignment. There is anterior wedging of L4 and L1 vertebra 15%. IMPRESSION: There is increased size of the left and right renal pelvis compared to old exam. Delayed images howev er show fairly normal excretion. Partial obstruction of the ureters is possible. There is moderate sigmoid diverticulosis without convincing evidence for diverticulitis. This is prog ressed compared to old exam. There are new compression fractures of L4 and L1 vertebra compared to old exam. Fractures unchanged c ompared to CT scan of 08/15/2021.
[2021-02-20] MEDS ORDERED: ONDANSETRON 4 MG/2 ML VIAL IVP PRN (22:41)
[2021-02-20 22:47] LABS: Amorphous Sediment,Urine Few /hpf; Appearance,Urine Cloudy (Clear); Bacteria,Urine Occasional /hpf; Bilirubin,Urine Negative (Negative); Blood,Urine Small (Negative); Color,Urine Light Yellow; Glucose,Urine (UA) Negative (Negative); Hyaline Casts,Urine 1 /lpf (0-2); Ketones,Urine Negative (Negative); Leukocyte Esterase,Urine Negative (Negative); Mucus,Urine Rare /hpf; Nitrite,Urine Negative (Negative); PH, Urine 7.5 (5.0-8.0); Protein,Urine Negative (Negative); RBC,Urine 1 /hpf (0-5); Specific Gravity,Urine 1.012 (1.001-1.035); Squamous Epithelial Cell,Urine 1 /hpf (0-4); Urobilinogen,Urine <2.0 mg/dL (<2.0); WBC,Urine 2 /hpf (0-5)
[2021-02-20] MEDS ORDERED: LORazepam 2 MG/ML INJ IV PRN ×3 (23:31)
[2021-02-21 00:40] VITALS: RESP 18
[2021-02-21] MEDS: SODIUM CHLORIDE 0.9% 1,000 ML IV SCH ×3 (00:51→15:51)
[2021-02-21 07:48] LABS: Anisocytosis Slight; Basophils # (A) 0.1 k/uL (0-0.2); Basophils % (A) 1 %; Eosinophils % (A) 1 %; HCT 38.4 % (34.0-46.0); HGB 12.6 gm/dL (11.4-16.0); Lymphocytes # (A) 1.4 k/uL (1.0-4.8); Lymphocytes % (A) 27 %; MCH 30.2 pg (25.0-35.0); MCHC 32.9 g/dL (31.0-37.0); MCV 91.8 fL (80.0-100.0); Monocytes # (A) 0.4 k/uL (0-1.0); Monocytes % (A) 7 %; Neutrophils # (A) 3.2 k/uL (1.3-7.7); Neutrophils % (A) 62 %; RBC 4.18 m/uL (3.80-5.40); RDW 19.7 % (11.5-15.5); WBC 5.1 k/uL (3.8-10.6)
[2021-02-21 07:52] LABS: ALT 19 U/L (4-34); AST 40 U/L (14-36); African American GFR (CKD) >90 (>60 ml/min/1.73 sqM); Albumin 3.3 g/dL (3.5-5.0); Alkaline Phosphatase 191 U/L (38-126); Anion Gap 4 mmol/L; Blood Urea Nitrogen 6 mg/dL (7-17); Calcium 8.5 mg/dL (8.4-10.2); Carbon Dioxide 30 mmol/L (22-30); Chloride 103 mmol/L (98-107); Glucose 95 mg/dL (74-99); Non-African American GFR(CKD) >90 (>60 ml/min/1.73 sqM); Sodium 137 mmol/L (137-145); Total Bilirubin 1.3 mg/dL (0.2-1.3); Total Protein 6.1 g/dL (6.3-8.2)
[2021-02-21] MEDS ORDERED: PANTOPRAZOLE 40 MG/10 ML VIAL IVP SCH (11:30)
[2021-02-21] MEDS: POTASSIUM CHLORIDE ER 20 MEQ TAB.ER PO SCH ×2 (12:05→14:07)
--- NOTE | 2021-02-21 12:11 | P.HPIM ---
History of Present Illness Patient came in with compensative nausea vomiting which started yesterday and sharp epigastric abdominal pain nonradiating. Patient does drink alcohol on regular basis about 2 glasses of wine every day. Patient is also on Motrin. Patient does smoke marijuana on regular basis as well. Patient denied any fever chills patient denied any dysuria. Patient denied diarrhea body aches fever chills. Patient is negative for Covid 19 patient magnesium is low and potassium is low which are being replaced at this time. Review of Systems REVIEW OF SYSTEMS: CONSTITUTIONAL: No fever, no malaise, no fatigue. HEENT: No recent visual problems or hearing problems. Denied any sore throat. CARDIOVASCULAR: No chest pain, orthopnea, PND, no palpitations, no syncope. PULMONARY: No shortness of breath, no cough, no hemoptysis. GASTROINTESTINAL: Mentioned in HPI NEUROLOGICAL: No headaches, no weakness, no numbness. HEMATOLOGICAL: Denies any bleeding or petechiae. GENITOURINARY: Denies any burning micturition, frequency, or urgency. MUSCULOSKELETAL/RHEUMATOLOGICAL: Denies any joint pain, swelling, or any muscle pain. ENDOCRINE: Denies any polyuria or polydipsia. The rest of the 14-point review of systems is negative. Past Medical History Past Medical History: Asthma, Coronary Artery Disease (CAD), CVA/TIA, Liver Disease, Myocardial Infarction ([place]), Seizure Disorder Additional Past Medical History / Comment(s): DDD, CVA 06/2019, pt. states they have a blockage in their heart, NERVE DAMAGE GREGORY LEGS, ascites Last Myocardial Infarction Date:: aug 2018 History of Any Multi-Drug Resistant Organisms: None Reported Past Surgical History: Cholecystectomy, Heart Catheterization, Joint Replacement, Orthopedic Surgery Additional Past Surgical History / Comment(s): bartholin gland cyst removal, stent placed, multi paracentesis Past Anesthesia/Blood Transfusion Reactions: No Reported Reaction Past Psychological History: Anxiety, Depression Smoking Status: Current every day smoker Past Alcohol Use History: Daily, Occasional Additional Past Alcohol Use History / Comment(s): Patient is an active smoker since age 18 and quit in 2019. She uses marijuana on a daily basis. She is also has history of alcohol abuse and reports that she is drinking couple glasses of wine. She denies any street drug use. She uses a walker at home and is currently on disability. Past Drug Use History: Marijuana - Past Family History Mother Family Medical History: Cancer, Congestive Heart Failure (CHF), Coronary Artery Disease (CAD), Hyperlipidemia Additional Family Medical History / Comment(s): Mother at age 85 from lung cancer. Father Family Medical History: Cancer, COPD Additional Family Medical History / Comment(s): Father at age 63 from lung cancer. Brother(s) Additional Family Medical History / Comment(s): Patient has a total of 7 siblings. 5 are alive without any major medical problems she is aware of. 2 siblings have one from alcohol abuse and 1. Coronary artery disease. Daughter(s) Additional Family Medical History / Comment(s): Patient has one daughter with no major medical problems. Medications and Allergies Home Medications Medication Instructions Recorded Confirmed Type Aspirin EC [Ecotrin Low Dose] 81 mg PO DAILY 02/11/19 02/20/21 History Ergocalciferol (Vitamin D2) 1,250 mcg PO FR 10/15/20 02/20/21 History [Vitamin D2 (50,000 Iu)] Dicyclomine HCl 10 mg PO TID PRN 11/20/20 02/20/21 History Multivitamin [Multivitamins Adult 1 tab PO DAILY 11/20/20 02/20/21 History Gummies] Fluticasone Nasal [place] [Flonase 1 spray EA NOSTRIL DAILY 11/30/20 02/20/21 History Nasal [place]] Magnesium Oxide [Mag-Ox] 400 mg PO TID 30 Days #90 tab 12/20/20 02/20/21 Rx traMADol HCl [Ultram] 50 mg PO Q6H PRN #20 tab 12/20/20 02/20/21 Rx Thiamine [Vitamin B-1] 100 mg PO AC-BID 12/24/20 02/20/21 History Pantoprazole [Protonix] 40 mg PO BID #30 02/21/21 02/20/21 Rx Allergies Allergy/AdvReac Type Severity Reaction Status Date / Time Influenza Virus Vaccines AdvReac Nausea & Verified 02/20/21 21:53 Vomiting morphine AdvReac Nausea & Verified 02/20/21 21:53 Vomiting Physical Exam Vitals: Vital Signs Temp Pulse Pulse Resp BP BP Pulse Ox 02/21/21 07:00 98.5 F 78 18 105/70 99 02/21/21 01:51 98.9 F 97 18 117/83 97 02/21/21 00:32 98.9 F 104 H 18 109/77 95 02/20/21 23:37 100 16 118/79 98 02/20/21 19:38 97.5 F L 122 H 20 126/63 95 Intake and Output 02/20/21 02/21/21 02/21/21 22:59 06:59 14:59 Other: Voiding Method Bedpan Bedpan Incontinent Incontinent # Voids 1 Weight 53.977 kg 53.977 kg PHYSICAL EXAMINATION: GENERAL: The patient is alert and oriented x3, not in any acute distress. Well developed, well nourished. HEENT: Pupils are round and equally reacting to light. EOMI. No scleral icterus. No conjunctival pallor. Normocephalic, atraumatic. No pharyngeal erythema. No thyromegaly. CARDIOVASCULAR: S1 and S2 present. No murmurs, rubs, or gallops. PULMONARY: Chest is clear to auscultation, no wheezing or crackles. ABDOMEN: Soft, nontender, nondistended, normoactive bowel sounds. No palpable organomegaly. MUSCULOSKELETAL: No joint swelling or deformity. EXTREMITIES: No cyanosis, clubbing, or pedal edema. NEUROLOGICAL: Gross neurological examination did not reveal any focal deficits. SKIN: No rashes. Results CBC & Chem 7: 02/21/21 07:04 02/21/21 07:04 Labs: Abnormal Lab Results - Last 24 Hours (Table) 02/20/21 02/20/21 02/20/21 Range/Units 20:25 20:25 20:25 WBC 11.6 H (3.8-10.6) k/uL RDW 19.1 H (11.5-15.5) % Plt Count 104 L (150-450) k/uL Neutrophils # 10.4 H (1.3-7.7) k/uL Lymphocytes # 0.6 L (1.0-4.8) k/uL Potassium (3.5-5.1) mmol/L BUN (7-17) mg/dL Creatinine 0.42 L (0.52-1.04) mg/dL Glucose 179 H (74-99) mg/dL Plasma Lactic Acid [place] 5.3 H* (0.7-2.0) mmol/L Magnesium 1.5 L (1.6-2.3) mg/dL Total Bilirubin 1.6 H (0.2-1.3) mg/dL AST 62 H (14-36) U/L Alkaline Phosphatase 288 H (38-126) U/L Total Protein (6.3-8.2) g/dL Albumin (3.5-5.0) g/dL Urine Appearance (Clear) Urine Blood (Negative) Amorphous Sediment (None) /hpf Urine Bacteria (None) /hpf Urine Mucus (None) /hpf 02/20/21 02/21/21 02/21/21 Range/Units 22:17 07:04 07:04 WBC (3.8-10.6) k/uL RDW 19.7 H (11.5-15.5) % Plt Count (150-450) k/uL Neutrophils # (1.3-7.7) k/uL Lymphocytes # (1.0-4.8) k/uL Potassium 3.0 L (3.5-5.1) mmol/L BUN 6 L (7-17) mg/dL Creatinine 0.50 L (0.52-1.04) mg/dL Glucose (74-99) mg/dL Plasma Lactic Acid [place] (0.7-2.0) mmol/L Magnesium (1.6-2.3) mg/dL Total Bilirubin (0.2-1.3) mg/dL AST 40 H (14-36) U/L Alkaline Phosphatase 191 H (38-126) U/L Total Protein 6.1 L (6.3-8.2) g/dL Albumin 3.3 L (3.5-5.0) g/dL Urine Appearance Cloudy H (Clear) Urine Blood Small H (Negative) Amorphous Sediment Few H (None) /hpf Urine Bacteria Occasional H (None) /hpf Urine Mucus Rare H (None) /hpf 02/21/21 Range/Units 07:04 WBC (3.8-10.6) k/uL RDW (11.5-15.5) % Plt Count (150-450) k/uL Neutrophils # (1.3-7.7) k/uL Lymphocytes # (1.0-4.8) k/uL Potassium (3.5-5.1) mmol/L BUN (7-17) mg/dL Creatinine (0.52-1.04) mg/dL Glucose (74-99) mg/dL Plasma Lactic Acid [place] (0.7-2.0) mmol/L Magnesium 1.5 L (1.6-2.3) mg/dL Total Bilirubin (0.2-1.3) mg/dL AST (14-36) U/L Alkaline Phosphatase (38-126) U/L Total Protein (6.3-8.2) g/dL Albumin (3.5-5.0) g/dL Urine Appearance (Clear) Urine Blood (Negative) Amorphous Sediment (None) /hpf Urine Bacteria (None) /hpf Urine Mucus (None) /hpf Thrombosis Risk Factor Assmnt - Choose All That Apply Each Factor Represents 1 point: Age 41-60 years Thrombosis Risk Factor Assessment Total Risk Factor Score: 1 Thrombosis Risk Factor Assessment Level: Low Risk Assessment and Plan Plan: Acute abdominal pain: Secondary to 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 I do not expect her to have any withdrawals. -Hypomagnesemia magnesium will be replaced at -Hypokalemia potassium will be replaced as well patient does take magnesium supplementations at home -Nicotine use and marijuana use: Counseling was provided -Coronary artery disease -Seizure disorder: Patient is presently not in any seizure medication patient takes tramadol at home which will be discontinued her seizures I believe in the past was probably secondary to alcohol withdrawal Patient will be discharged today
--- NOTE | 2021-02-21 12:12 | P.DS ---
Providers Date of admission: 02/20/21 22:41 Attending physician: Mark Cardoza Primary care physician: Miya Johnson [place] [facility] Course: Refer to my history of present illness for further details Patient Condition at Discharge: Stable Plan - Discharge Summary Discharge Rx Participant: No New Discharge Prescriptions: Continue Aspirin EC [Ecotrin Low Dose] 81 mg PO DAILY Ergocalciferol (Vitamin D2) [Vitamin D2 (50,000 Iu)] 1,250 mcg PO FR Dicyclomine HCl 10 mg PO TID PRN PRN Reason: IBS Multivitamin [Multivitamins Adult Gummies] 1 tab PO DAILY Fluticasone Nasal [place] [Flonase Nasal [place]] 1 spray EA NOSTRIL DAILY Magnesium Oxide [Mag-Ox] 400 mg PO TID 30 Days #90 tab Thiamine [Vitamin B-1] 100 mg PO AC-BID Changed Pantoprazole [Protonix] 40 mg PO BID #30 Discontinued Furosemide [Lasix] 40 mg PO DAILY Ibuprofen [Motrin] 400 mg PO Q6HR PRN PRN Reason: Pain traMADol HCl [Ultram] 50 mg PO Q6H PRN #20 tab PRN Reason: Moderate Pain Discharge Medication List Aspirin EC [Ecotrin Low Dose] 81 mg PO DAILY 02/11/19 [History] Ergocalciferol (Vitamin D2) [Vitamin D2 (50,000 Iu)] 1,250 mcg PO FR 10/15/20 [History] Dicyclomine HCl 10 mg PO TID PRN 11/20/20 [History] Multivitamin [Multivitamins Adult Gummies] 1 tab PO DAILY 11/20/20 [History] Fluticasone Nasal [place] [Flonase Nasal [place]] 1 spray EA NOSTRIL DAILY 11/30/20 [History] Magnesium Oxide [Mag-Ox] 400 mg PO TID 30 Days #90 tab 12/20/20 [Rx] Thiamine [Vitamin B-1] 100 mg PO AC-BID 12/24/20 [History] Pantoprazole [Protonix] 40 mg PO BID #30 02/21/21 [Rx] Follow up Appointment(s)/Referral(s): Miya Johnson MD [Primary Care Provider] - 3 Days Activity/Diet/Wound Care/Special Instructions: Avoid Alcohol, marijuana
[2021-02-21] MEDS: MAGNESIUM SULFATE-D5W PMX 1 GM in DEXTROSE/WATER 1 100ML.BAG IVPB SCH ×2 (12:23→14:05)
[2021-02-21 12:26] LABS: Platelet Count 56 k/uL (150-450)
[2021-02-21 12:35] VITALS: BMI 21.7
[2021-02-21 14:39] VITALS: BP 130/85; PULSE 79; TEMP 97.4
== END 2021-02-21 18:23 | disposition home or self-care (01) ==
LOC: EC 19:03 → 1SOBS 22:41
PROVIDERS: ADMIT Hospitalist; ATTEND Hospitalist
DX: R10.13 Epigastric pain (principal); F10.10 Alcohol abuse, uncomplicated; E83.42 Hypomagnesemia; E87.6 Hypokalemia; K57.30 Diverticulosis of large intestine without perforation or abscess without bleeding; R11.2 Nausea with vomiting, unspecified; G40.909 Epilepsy, unspecified, not intractable, without status epilepticus; I25.10 Atherosclerotic heart disease of native coronary artery without angina pectoris; J45.909 Unspecified asthma, uncomplicated; F12.90 Cannabis use, unspecified, uncomplicated; K76.9 Liver disease, unspecified; F32.9 Major depressive disorder, single episode, unspecified; F41.9 Anxiety disorder, unspecified; F17.200 Nicotine dependence, unspecified, uncomplicated; Z20.822 Contact with and (suspected) exposure to COVID-19; R53.1 Weakness; S32.019A Unspecified fracture of first lumbar vertebra, initial encounter for closed fracture; S32.049A Unspecified fracture of fourth lumbar vertebra, initial encounter for closed fracture; X58.XXXA Exposure to other specified factors, initial encounter; Z79.82 Long term (current) use of aspirin; Z79.1 Long term (current) use of non-steroidal anti-inflammatories (NSAID); Z79.891 Long term (current) use of opiate analgesic; Z79.899 Other long term (current) drug therapy; Z88.5 Allergy status to narcotic agent; Z88.7 Allergy status to serum and vaccine; I25.2 Old myocardial infarction; Z86.73 Personal history of transient ischemic attack (TIA), and cerebral infarction without residual deficits; Z90.49 Acquired absence of other specified parts of digestive tract; Z96.60 Presence of unspecified orthopedic joint implant; Z98.890 Other specified postprocedural states; Z80.1 Family history of malignant neoplasm of trachea, bronchus and lung; Z82.49 Family history of ischemic heart disease and other diseases of the circulatory system; Z82.5 Family history of asthma and other chronic lower respiratory diseases; Z83.49 Family history of other endocrine, nutritional and metabolic diseases; Z81.1 Family history of alcohol abuse and dependence
CPT/HCPCS: 96365; 96366; 96375 ×2; 96376; 96361; 99285; 36415; 93005; 80053 ×2; 82150; 83605 ×2; 83690; 83735 ×2; 84484; 85025 ×2; 81001; 87635; 74177; G0378 ×2; G0480; J2060; J2405 ×2; J3475; C9113; Q9967; 80320

== ENCOUNTER 2021-03-05 17:04 | Emergency (ER) | payer OTHER ==
[2021-03-05 17:15] VITALS: RESP 18; TEMP 98.6
--- NOTE | 2021-03-05 18:31 | ED ---
Fall HPI - General Chief Complaint: Fall Stated Complaint: Back Pain Time Seen by Provider: 03/05/21 17:26 Source: patient, EMS Mode of arrival: EMS - History of Present Illness Initial Comments: 61-year-old female with history of degenerative disc disease presents to the emergency department with chief complaint of a fall and psychiatric evaluation. Patient states last night she suffered a fall while using her walker. Patient states she tripped and fell backwards and falling mostly on her back. Denies any head injuries or loss of consciousness. Patient reports about 2 months ago she suffered a compression fracture L4 believes she "rebroke" her back. Patient denies any saddle anesthesia, urinary retention with overflow incontinence or bowel incontinence. She denies any paresthesias or weakness in the extremities. It is also admitting to having suicidal thoughts due to her debilitating chronic back pain. Patient reports she has been abusing alcohol in order to take control of her back pain. Patient denies any suicidal plans. Denies any homicidal thoughts or ideations. The daughter also contacted her nurse and states that the patient left a voicemail to her yesterday admitting that she would like to . - Related Data Home Medications Medication Instructions Recorded Confirmed Aspirin EC [Ecotrin Low Dose] 81 mg PO DAILY 02/11/19 03/05/21 Ergocalciferol (Vitamin D2) 1,250 mcg PO FR 10/15/20 03/05/21 [Vitamin D2 (50,000 Iu)] Multivitamin [Multivitamins Adult 1 tab PO DAILY 11/20/20 03/05/21 Gummies] Fluticasone Nasal [place] [Flonase 1 spray EA NOSTRIL DAILY 11/30/20 03/05/21 Nasal [place]] Thiamine [Vitamin B-1] 100 mg PO AC-BID 12/24/20 03/05/21 Previous Rx's Medication Instructions Recorded Magnesium Oxide [Mag-Ox] 400 mg PO TID 30 Days #90 tab 12/20/20 Pantoprazole [Protonix] 40 mg PO BID #30 02/21/21 Allergies Allergy/AdvReac Type Severity Reaction Status Date / Time Influenza Virus Vaccines AdvReac Nausea & Verified 03/05/21 21:40 Vomiting morphine AdvReac Nausea & Verified 03/05/21 21:40 Vomiting Review of Systems ROS Statement: Those systems with pertinent positive or pertinent negative responses have been documented in the HPI. ROS Other: All systems not noted in ROS Statement are negative. Past Medical History Past Medical History: Asthma, Coronary Artery Disease (CAD), CVA/TIA, Liver Disease, Myocardial Infarction ([place]), Seizure Disorder Additional Past Medical History / Comment(s): DDD, CVA 06/2019, pt. states they have a blockage in their heart, NERVE DAMAGE GREGORY LEGS, ascites Last Myocardial Infarction Date:: aug 2018 History of Any Multi-Drug Resistant Organisms: None Reported Past Surgical History: Cholecystectomy, Heart Catheterization, Joint Replacement, Orthopedic Surgery Additional Past Surgical History / Comment(s): bartholin gland cyst removal, stent placed, multi paracentesis Past Anesthesia/Blood Transfusion Reactions: No Reported Reaction Past Psychological History: Anxiety, Depression Smoking Status: Current every day smoker Past Alcohol Use History: Heavy Past Drug Use History: Marijuana - Past Family History Mother Family Medical History: Cancer, Congestive Heart Failure (CHF), Coronary Artery Disease (CAD), Hyperlipidemia Additional Family Medical History / Comment(s): Mother at age 85 from lung cancer. Father Family Medical History: Cancer, COPD Additional Family Medical History / Comment(s): Father at age 63 from lung cancer. Brother(s) Additional Family Medical History / Comment(s): Patient has a total of 7 siblings. 5 are alive without any major medical problems she is aware of. 2 siblings have one from alcohol abuse and 1. Coronary artery disease. Daughter(s) Additional Family Medical History / Comment(s): Patient has one daughter with no major medical problems. General Exam Limitations: no limitations General appearance: alert, in no apparent distress Head exam: Present: atraumatic, normocephalic, normal inspection Eye exam: Present: normal appearance, PERRL, EOMI Pupils: Present: normal accommodation ENT exam: Present: normal exam, normal oropharynx, mucous membranes moist, TM's normal bilaterally, normal external ear exam Neck exam: Present: normal inspection, full ROM. Absent: tenderness Respiratory exam: Present: normal lung sounds bilaterally. Absent: respiratory distress, wheezes, rales, rhonchi, stridor Cardiovascular Exam: Present: regular rate, normal rhythm, normal heart sounds GI/Abdominal exam: Present: soft. Absent: distended, tenderness, guarding, rebound Extremities exam: Present: normal inspection, full ROM, normal capillary refill, other (Palpable DP and PT bilaterally. Sensation intact in bilateral lower extremities.). Absent: tenderness, pedal edema, joint swelling, calf tenderness Back exam: Present: normal inspection, full ROM, tenderness, vertebral tenderness (Lumbosacral tenderness.). Absent: paraspinal tenderness Neurological exam: Present: alert, oriented X3 Expanded Sensory exam: Upper Extremity Light Touch: Normal, Upper Extremity Pin Prick: Normal, Lower Extremity Light Touch: Normal, Lower Extremity Pin Prick: Normal Motor strength exam: RUE: 5, LUE: 5, RLE: 5, LLE: 5 Psychiatric exam: Present: normal affect, depressed, suicidal ideation Skin exam: Present: warm, dry, intact, normal color Course Vital Signs 03/05/21 03/05/21 03/06/21 17:08 18:15 01:53 Temperature 98.6 F Pulse Rate 104 H 92 108 H Respiratory 18 18 18 Rate Blood Pressure 150/103 127/90 167/113 O2 Sat by Pulse 95 95 95 Oximetry Medical Decision Making - Medical Decision Making 61-year-old female presents to emergency department for a fall and psychiatric evaluation. On physical examination, patient is agitated and frustrated due to her pain. She also has localized vertebral tenderness in the lumbosacral region. No concern for cauda equina at this time. CT of the lumbar spine reveals a slight progression of the L4 compression fracture. There also appears to be an L1 compression fracture as well. She does not have any paresthesias in bilateral lower extremities. She is vascularly intact in bilateral lower extremities. No signs of weakness in the extremities. X-ray right hip is unremarkable. patient was given norco 5 for pain and lidoderm patch. She did report improvement in her pain. Patient verbalized concerns for suicidal tho ughts but no plans. EPS to evaluate patient At this time, patient care signed off to Patient was evaluated by EPS and will be discharged with an outpatient counselor follow-up. wrote a prescription for less than 3 days of [place]. Return parameters discussed with patient is understanding and agreeable. Advised to follow-up with it infrastructure specialist. - Lab Data Lab Results 03/05/21 03/05/21 Range/Units 18:57 18:57 Urine Color Colorless Urine Appearance Clear (Clear) Urine pH 5.5 (5.0-8.0) Ur Specific [place] 1.006 (1.001-1.035) Urine Protein Negative (Negative) Urine Glucose (UA) Negative (Negative) Urine Ketones Negative (Negative) Urine Blood Negative (Negative) Urine Nitrite Negative (Negative) Urine Bilirubin Negative (Negative) Urine Urobilinogen <2.0 (<2.0) mg/dL Ur Leukocyte Esterase Negative (Negative) Urine Opiates Screen Not Detected (NotDetected) Ur Oxycodone Screen Not Detected (NotDetected) Urine Methadone Screen Not Detected (NotDetected) Ur Propoxyphene Screen Not Detected (NotDetected) Ur Barbiturates Screen Not Detected (NotDetected) U Tricyclic Antidepress Not Detected (NotDetected) Ur Phencyclidine Scrn Not Detected (NotDetected) Ur Amphetamines Screen Not Detected (NotDetected) U Methamphetamines Scrn Not Detected (NotDetected) U Benzodiazepines Scrn Not Detected (NotDetected) Urine Cocaine Screen Not Detected (NotDetected) U Marijuana (THC) Screen Not Detected (NotDetected) Disposition Clinical Impression: Fall, Compression fracture of L1 lumbar vertebra, Adjustment reaction of adult life Disposition: HOME SELF-CARE Condition: Stable Instructions (If sedation given, give patient instructions): Depression (DC), Fall Prevention for Older Adults (ED), Fall Prevention (ED) Additional Instructions: Follow-up with it infrastructure specialist. Return to emergency department if symptoms worsen. Is patient prescribed a controlled substance at d/c from ED?: Yes If prescribed controlled substance>3 days was MAPS reviewed?: Prescribed <3 Days Referrals: Miya Johnson MD [Primary Care Provider] - 1-2 days Camden Villa DO [Doctor of Osteopathic Medicine] - 1-2 days Time of Disposition: 10:15
[2021-03-05] MEDS ORDERED: LIDOCAINE 5% PATCH TOPICAL STA (18:49)
[2021-03-05] MEDS ORDERED: HYDROcodone/APAP 5-325MG 1 EACH TAB PO STA (18:49)
--- NOTE | 2021-03-05 18:54 | XR ---
EXAMINATION TYPE: XR Hip Complete RT DATE OF EXAM: 03/05/2021 COMPARISON: None HISTORY: Pain TECHNIQUE: 2 views FINDINGS: I see no fracture nor dislocation. Hip joint space is fairly normal. There is no hip dyspla roxanne. Sacroiliac joint is intact. IMPRESSION: Negative right hip exam.
--- NOTE | 2021-03-05 18:57 | CT ---
EXAMINATION TYPE: CT lumbar spine wo con DATE OF EXAM: 03/05/2021 COMPARISON: 12/16/2020 HISTORY: Recent fall. L4 fracture [address] DLP: 640 mGycm Automated exposure control for dose reduction was used. Images obtained without contrast from the level of T12-S3 vertebra. Lumbar vertebra have normal alignment. There is 20% anterior wedging of L4 vertebral body. There is a lso 15% wedging of L1 vertebral body. The posterior elements are intact. There is no lumbar paraspina l mass. I see no focal bone destruction. Abdominal aorta is atheromatous. The sacroiliac joints are i ntact. There is mild hypertrophic facet arthropathy at L5-S1. IMPRESSION: There are compression fractures of L1 and L4. There is slight progression of the fracture of L4 amisha red to old exam. There is mild sclerosis at the fracture sites consistent with some healing which is a change compared to old exam.
[2021-03-05 19:19] LABS: Amphetamine Screen,Urine Not Detected (NotDetected); Barbiturate Screen,Urine Not Detected (NotDetected); Benzodiazepines Screen,Urine Not Detected (NotDetected); Cocaine Screen,Urine Not Detected (NotDetected); Methadone Screen, Urine Not Detected (NotDetected); Opiate Screen,Urine Not Detected (NotDetected); Oxycodone Screen, Urine Not Detected (NotDetected); Phencyclidine Screen,Urine Not Detected (NotDetected); Tricyclic Antidepressant,Urine Not Detected (NotDetected); Urn Cannabinoid Scrn Not Detected (NotDetected)
[2021-03-05] MEDS ORDERED: HYDROcodone/APAP 5-325MG 1 EACH TAB PO PRN (19:28)
[2021-03-05 19:30] LABS: Appearance,Urine Clear (Clear); Bilirubin,Urine Negative (Negative); Blood,Urine Negative (Negative); Color,Urine Colorless; Glucose,Urine (UA) Negative (Negative); Ketones,Urine Negative (Negative); Leukocyte Esterase,Urine Negative (Negative); Nitrite,Urine Negative (Negative); PH, Urine 5.5 (5.0-8.0); Protein,Urine Negative (Negative); Specific Gravity,Urine 1.006 (1.001-1.035); Urobilinogen,Urine <2.0 mg/dL (<2.0)
[2021-03-05] MEDS ORDERED: PANTOPRAZOLE 40 MG TABLET PO STA (21:57)
[2021-03-05] MEDS: ONDANSETRON 4 MG TAB PO STA ×2 (23:00→23:03)
[2021-03-05] MEDS ORDERED: ONDANSETRON ODT 4 MG TAB PO STA (23:02)
[2021-03-06 01:55] VITALS: BP 167/113; PULSE 108
== END 2021-03-06 01:55 | disposition home or self-care (01) ==
LOC: EC 17:04
DX: S32.019A Unspecified fracture of first lumbar vertebra, initial encounter for closed fracture (principal); F32.9 Major depressive disorder, single episode, unspecified; F17.200 Nicotine dependence, unspecified, uncomplicated; F12.90 Cannabis use, unspecified, uncomplicated; J45.909 Unspecified asthma, uncomplicated; I25.10 Atherosclerotic heart disease of native coronary artery without angina pectoris; I25.2 Old myocardial infarction; Z86.73 Personal history of transient ischemic attack (TIA), and cerebral infarction without residual deficits; W01.0XXA Fall on same level from slipping, tripping and stumbling without subsequent striking against object, initial encounter
CPT/HCPCS: 72131; 73502; 80306; 81003; 82075; 99284

== ENCOUNTER 2021-04-14 20:47 | Inpatient (IN) | payer OTHER ==
[2021-04-14 21:25] LABS: Anisocytosis Slight; Basophils # (A) 0.3 k/uL (0-0.2); Basophils % (A) 3 %; Eosinophils # (A) 0.1 k/uL (0-0.7); Eosinophils % (A) 1 %; HGB 15.2 gm/dL (11.4-16.0); Lymphocytes # (A) 1.9 k/uL (1.0-4.8); Lymphocytes % (A) 22 %; MCH 31.8 pg (25.0-35.0); MCHC 33.7 g/dL (31.0-37.0); MCV 94.3 fL (80.0-100.0); Mean Platelet Volume 7.4; Monocytes # (A) 0.5 k/uL (0-1.0); Monocytes % (A) 6 %; Neutrophils # (A) 5.8 k/uL (1.3-7.7); Neutrophils % (A) 67 %; RBC 4.77 m/uL (3.80-5.40); RDW 16.3 % (11.5-15.5); WBC 8.6 k/uL (3.8-10.6)
--- NOTE | 2021-04-14 21:30 | ED ---
SOB HPI - General Chief Complaint: Shortness of Breath Stated Complaint: MARY ALICE Time Seen by Provider: 04/14/21 21:04 Source: patient Mode of arrival: EMS - History of Present Illness Initial Comments: This patient is a 61-year-old woman who presents with complaint that she has been having shortness of breath over a couple of days. Patient had seen the clinic doctor and was given a new inhaler but this does not appear to be helping. She has had a little bit of cough and sputum for the past 2 weeks. The patient states she has had chronic cough and shortness of breath going back years but things have worsened over the past couple of weeks. MD Complaint: shortness of breath -: week(s) Consistency: constant Improves With: nothing Worsens With: nothing Known History Of: COPD Associated Symptoms: cough, sputum production Treatments Prior to Arrival: bronchodilator - Related Data Home Medications Medication Instructions Recorded Confirmed Aspirin EC [Ecotrin Low Dose] 81 mg PO DAILY 02/11/19 04/23/21 Ergocalciferol (Vitamin D2) 1,250 mcg PO FR 10/15/20 04/23/21 [Vitamin D2 (50,000 Iu)] Multivitamin [Multivitamins Adult 1 tab PO DAILY 11/20/20 04/23/21 Gummies] Fluticasone Nasal [place] [Flonase 1 spray EA NOSTRIL DAILY 11/30/20 04/23/21 Nasal [place]] Azithromycin [Zithromax] 500 mg PO DIRECTED 04/20/21 04/23/21 Budesonide/Formoterol Fumarate 1 puff INHALATION DIRECTED 04/20/21 04/23/21 [Symbicort 160-4.5 Mcg Inhaler] Dicyclomine [Bentyl] 10 mg PO DIRECTED PRN 04/20/21 04/23/21 Folic Acid 1 mg PO DIRECTED 04/20/21 04/23/21 Ipratropium-Albuterol Nebulize 3 ml INHALATION DIRECTED 04/20/21 04/23/21 [Duoneb 0.5 mg-3 mg/3 ml Soln] Thiamine [Vitamin B-1] 100 mg PO DIRECTED 04/20/21 04/23/21 Previous Rx's Medication Instructions Recorded Magnesium Oxide [Mag-Ox] 400 mg PO TID 30 Days #90 tab 12/20/20 Pantoprazole [Protonix] 40 mg PO BID #30 02/21/21 Citalopram Hydrobromide [CeleXA] 10 mg PO DAILY #30 tab 04/18/21 Atorvastatin [Lipitor] 80 mg PO HS 30 Days #30 tab 04/22/21 Isosorbide Mononitrate ER [Imdur] 30 mg PO DAILY 30 Days #30 04/22/21 tab.er.24h Metoprolol Succinate (ER) [Toprol 25 mg PO DAILY 30 Days #30 04/22/21 XL] tab.er.24h Allergies Allergy/AdvReac Type Severity Reaction Status Date / Time Influenza Virus Vaccines AdvReac Nausea & Verified 04/23/21 10:55 Vomiting morphine AdvReac Nausea & Verified 04/23/21 10:55 Vomiting Review of Systems ROS Statement: Those systems with pertinent positive or pertinent negative responses have been documented in the HPI. ROS Other: All systems not noted in ROS Statement are negative. Constitutional: Denies: fever, chills Respiratory: Reports: as per HPI, cough, dyspnea, wheezes Cardiovascular: Denies: chest pain, palpitations Gastrointestinal: Reports: nausea, diarrhea. Denies: abdominal pain, vomiting Genitourinary: Denies: dysuria, hematuria Musculoskeletal: Denies: back pain Skin: Denies: rash Neurological: Denies: headache, weakness, numbness Past Medical History Past Medical History: Asthma, Coronary Artery Disease (CAD), CVA/TIA, Liver Disease, Myocardial Infarction ([place]), Seizure Disorder Additional Past Medical History / Comment(s): DDD, CVA 06/2019, pt. states they have a blockage in their heart, NERVE DAMAGE GREGORY LEGS, ascites Last Myocardial Infarction Date:: aug 2018 History of Any Multi-Drug Resistant Organisms: None Reported Past Surgical History: Cholecystectomy, Heart Catheterization, Joint Replacement, Orthopedic Surgery Additional Past Surgical History / Comment(s): bartholin gland cyst removal, stent placed, multi paracentesis Past Anesthesia/Blood Transfusion Reactions: No Reported Reaction Past Psychological History: Anxiety, Depression Smoking Status: Current every day smoker Past Alcohol Use History: Heavy Past Drug Use History: Marijuana - Past Family History Mother Family Medical History: Cancer, Congestive Heart Failure (CHF), Coronary Artery Disease (CAD), Hyperlipidemia Additional Family Medical History / Comment(s): Mother at age 85 from lung cancer. Father Family Medical History: Cancer, COPD Additional Family Medical History / Comment(s): Father at age 63 from lung cancer. Brother(s) Additional Family Medical History / Comment(s): Patient has a total of 7 siblings. 5 are alive without any major medical problems she is aware of. 2 siblings have one from alcohol abuse and 1. Coronary artery disease. Daughter(s) Additional Family Medical History / Comment(s): Patient has one daughter with no major medical problems. General Exam General appearance: alert, in no apparent distress Head exam: Present: atraumatic, normocephalic Eye exam: Present: normal appearance. Absent: scleral icterus, conjunctival injection ENT exam: Present: normal oropharynx Neck exam: Present: normal inspection Respiratory exam: Present: wheezes, rhonchi. Absent: respiratory distress, rales, stridor, accessory muscle use, decreased breath sounds Cardiovascular Exam: Present: normal rhythm, tachycardia, normal heart sounds. Absent: systolic murmur, diastolic murmur, rubs, gallop GI/Abdominal exam: Present: soft, organomegaly. Absent: distended, tenderness, guarding, rebound, rigid, pulsatile mass, hernia (There is hepatomegaly) Extremities exam: Present: normal inspection, normal capillary refill. Absent: pedal edema, calf tenderness Back exam: Present: normal inspection. Absent: CVA tenderness (R), CVA tenderness (L) Neurological exam: Present: alert Skin exam: Present: warm, dry, intact, normal color. Absent: rash Course Vital Signs 04/14/21 04/14/21 04/14/21 21:03 21:14 23:15 Temperature 98.2 F 99.1 F Pulse Rate 121 H 105 H Respiratory 26 H 26 H 20 Rate Blood Pressure 111/95 129/86 O2 Sat by Pulse 94 L 94 L Oximetry 04/15/21 04/15/21 04/15/21 00:20 01:08 01:55 Temperature 99 F Pulse Rate 105 H 112 H 103 H Respiratory 20 20 Rate Blood Pressure 115/97 145/93 O2 Sat by Pulse 97 94 L Oximetry 04/15/21 04/15/21 04/15/21 02:00 05:28 06:58 Temperature 97.8 F Pulse Rate 100 97 95 Respiratory 20 20 Rate Blood Pressure 120/97 147/85 O2 Sat by Pulse 98 98 Oximetry 04/15/21 04/15/21 04/15/21 07:30 07:34 07:41 Temperature 97.2 F L Pulse Rate 96 89 94 Respiratory 18 18 18 Rate Blood Pressure 137/95 O2 Sat by Pulse 100 Oximetry 04/15/21 04/15/21 04/15/21 11:28 11:44 11:55 Temperature 99 F Pulse Rate 96 96 94 Respiratory 18 18 18 Rate Blood Pressure 135/104 O2 Sat by Pulse 97 Oximetry 04/15/21 04/15/21 04/15/21 13:00 15:00 15:15 Temperature 97.8 F 98.8 F Pulse Rate 115 H 115 H 114 H Respiratory 16 18 18 Rate Blood Pressure 104/83 112/76 O2 Sat by Pulse 97 94 L Oximetry 04/15/21 15:24 Temperature Pulse Rate 114 H Respiratory 18 Rate Blood Pressure O2 Sat by Pulse Oximetry Medical Decision Making - Lab Data Result diagrams: 04/14/21 21:15 04/14/21 21:15 Lab Results 04/14/21 04/14/21 04/14/21 Range/Units 21:15 21:15 21:15 WBC 8.6 (3.8-10.6) k/uL RBC 4.77 (3.80-5.40) m/uL Hgb 15.2 (11.4-16.0) gm/dL Hct 45.0 (34.0-46.0) % MCV 94.3 (80.0-100.0) fL MCH 31.8 (25.0-35.0) pg MCHC 33.7 (31.0-37.0) g/dL RDW 16.3 H (11.5-15.5) % Plt Count 360 D (150-450) k/uL MPV 7.4 Neutrophils % 67 % Lymphocytes % 22 % Monocytes % 6 % Eosinophils % 1 % Basophils % 3 % Neutrophils # 5.8 (1.3-7.7) k/uL Lymphocytes # 1.9 (1.0-4.8) k/uL Monocytes # 0.5 (0-1.0) k/uL Eosinophils # 0.1 (0-0.7) k/uL Basophils # 0.3 H (0-0.2) k/uL Anisocytosis Slight PT 10.6 (9.0-12.0) sec INR 1.0 (<1.2) APTT 24.4 (22.0-30.0) sec Sodium 137 (137-145) mmol/L Potassium 4.1 (3.5-5.1) mmol/L Chloride 98 (98-107) mmol/L Carbon Dioxide 22 (22-30) mmol/L Anion Gap 17 mmol/L BUN 3 L (7-17) mg/dL Creatinine 0.45 L (0.52-1.04) mg/dL Est GFR (CKD-EPI)AfAm >90 (>60 ml/min/1.73 sqM) Est GFR (CKD-EPI)NonAf >90 (>60 ml/min/1.73 sqM) Glucose 190 H (74-99) mg/dL Lactic Ac Sepsis Rflx Plasma Lactic Acid Camron (0.7-2.0) mmol/L Calcium 9.6 (8.4-10.2) mg/dL Magnesium 1.8 (1.6-2.3) mg/dL Total Bilirubin 0.2 (0.2-1.3) mg/dL AST 85 H (14-36) U/L ALT 63 H (4-34) U/L Alkaline Phosphatase 218 H (38-126) U/L Ammonia (<30) umol/L Troponin I (0.000-0.034) ng/mL NT-Pro-B Natriuret Pep pg/mL Total Protein 7.4 (6.3-8.2) g/dL Albumin 4.5 (3.5-5.0) g/dL TSH (0.465-4.680) mIU/L Urine Color Urine Appearance (Clear) Urine pH (5.0-8.0) Ur Specific [place] (1.001-1.035) Urine Protein (Negative) Urine Glucose (UA) (Negative) Urine Ketones (Negative) Urine Blood (Negative) Urine Nitrite (Negative) Urine Bilirubin (Negative) Urine Urobilinogen (<2.0) mg/dL Ur Leukocyte Esterase (Negative) Urine WBC (0-5) /hpf Ur Squamous Epith Cells (0-4) /hpf Urine Mucus (None) /hpf Coronavirus (PCR) (Not Detectd) 04/14/21 04/14/21 04/14/21 Range/Units 21:15 21:15 21:15 WBC (3.8-10.6) k/uL RBC (3.80-5.40) m/uL Hgb (11.4-16.0) gm/dL Hct (34.0-46.0) % MCV (80.0-100.0) fL MCH (25.0-35.0) pg MCHC (31.0-37.0) g/dL RDW (11.5-15.5) % Plt Count (150-450) k/uL MPV Neutrophils % % Lymphocytes % % Monocytes % % Eosinophils % % Basophils % % Neutrophils # (1.3-7.7) k/uL Lymphocytes # (1.0-4.8) k/uL Monocytes # (0-1.0) k/uL Eosinophils # (0-0.7) k/uL Basophils # (0-0.2) k/uL Anisocytosis PT (9.0-12.0) sec INR (<1.2) APTT (22.0-30.0) sec Sodium (137-145) mmol/L Potassium (3.5-5.1) mmol/L Chloride (98-107) mmol/L Carbon Dioxide (22-30) mmol/L Anion Gap mmol/L BUN (7-17) mg/dL Creatinine (0.52-1.04) mg/dL Est GFR (CKD-EPI)AfAm (>60 ml/min/1.73 sqM) Est GFR (CKD-EPI)NonAf (>60 ml/min/1.73 sqM) Glucose (74-99) mg/dL Lactic Ac Sepsis Rflx Plasma Lactic Acid Camron 5.9 H* (0.7-2.0) mmol/L Calcium (8.4-10.2) mg/dL Magnesium (1.6-2.3) mg/dL Total Bilirubin (0.2-1.3) mg/dL AST (14-36) U/L ALT (4-34) U/L Alkaline Phosphatase (38-126) U/L Ammonia (<30) umol/L Troponin I <0.012 (0.000-0.034) ng/mL NT-Pro-B Natriuret Pep 62 pg/mL Total Protein (6.3-8.2) g/dL Albumin (3.5-5.0) g/dL TSH (0.465-4.680) mIU/L Urine Color Urine Appearance (Clear) Urine pH (5.0-8.0) Ur Specific [place] (1.001-1.035) Urine Protein (Negative) Urine Glucose (UA) (Negative) Urine Ketones (Negative) Urine Blood (Negative) Urine Nitrite (Negative) Urine Bilirubin (Negative) Urine Urobilinogen (<2.0) mg/dL Ur Leukocyte Esterase (Negative) Urine WBC (0-5) /hpf Ur Squamous Epith Cells (0-4) /hpf Urine Mucus (None) /hpf Coronavirus (PCR) (Not Detectd) 04/14/21 04/15/21 04/15/21 Range/Units 21:51 01:02 02:04 WBC (3.8-10.6) k/uL RBC (3.80-5.40) m/uL Hgb (11.4-16.0) gm/dL Hct (34.0-46.0) % MCV (80.0-100.0) fL MCH (25.0-35.0) pg MCHC (31.0-37.0) g/dL RDW (11.5-15.5) % Plt Count (150-450) k/uL MPV Neutrophils % % Lymphocytes % % Monocytes % % Eosinophils % % Basophils % % Neutrophils # (1.3-7.7) k/uL Lymphocytes # (1.0-4.8) k/uL Monocytes # (0-1.0) k/uL Eosinophils # (0-0.7) k/uL Basophils # (0-0.2) k/uL Anisocytosis PT (9.0-12.0) sec INR (<1.2) APTT (22.0-30.0) sec Sodium (137-145) mmol/L Potassium (3.5-5.1) mmol/L Chloride (98-107) mmol/L Carbon Dioxide (22-30) mmol/L Anion Gap mmol/L BUN (7-17) mg/dL Creatinine (0.52-1.04) mg/dL Est GFR (CKD-EPI)AfAm (>60 ml/min/1.73 sqM) Est GFR (CKD-EPI)NonAf (>60 ml/min/1.73 sqM) Glucose (74-99) mg/dL Lactic Ac Sepsis Rflx Y Y Plasma Lactic Acid Camron 5.3 H* (0.7-2.0) mmol/L Calcium (8.4-10.2) mg/dL Magnesium (1.6-2.3) mg/dL Total Bilirubin (0.2-1.3) mg/dL AST (14-36) U/L ALT (4-34) U/L Alkaline Phosphatase (38-126) U/L Ammonia (<30) umol/L Troponin I (0.000-0.034) ng/mL NT-Pro-B Natriuret Pep pg/mL Total Protein (6.3-8.2) g/dL Albumin (3.5-5.0) g/dL TSH (0.465-4.680) mIU/L Urine Color Urine Appearance (Clear) Urine pH (5.0-8.0) Ur Specific [place] (1.001-1.035) Urine Protein (Negative) Urine Glucose (UA) (Negative) Urine Ketones (Negative) Urine Blood (Negative) Urine Nitrite (Negative) Urine Bilirubin (Negative) Urine Urobilinogen (<2.0) mg/dL Ur Leukocyte Esterase (Negative) Urine WBC (0-5) /hpf Ur Squamous Epith Cells (0-4) /hpf Urine Mucus (None) /hpf Coronavirus (PCR) (Not Detectd) 04/15/21 04/15/21 04/15/21 Range/Units 02:14 03:05 04:37 WBC (3.8-10.6) k/uL RBC (3.80-5.40) m/uL Hgb (11.4-16.0) gm/dL Hct (34.0-46.0) % MCV (80.0-100.0) fL MCH (25.0-35.0) pg MCHC (31.0-37.0) g/dL RDW (11.5-15.5) % Plt Count (150-450) k/uL MPV Neutrophils % % Lymphocytes % % Monocytes % % Eosinophils % % Basophils % % Neutrophils # (1.3-7.7) k/uL Lymphocytes # (1.0-4.8) k/uL Monocytes # (0-1.0) k/uL Eosinophils # (0-0.7) k/uL Basophils # (0-0.2) k/uL Anisocytosis PT (9.0-12.0) sec INR (<1.2) APTT (22.0-30.0) sec Sodium (137-145) mmol/L Potassium (3.5-5.1) mmol/L Chloride (98-107) mmol/L Carbon Dioxide (22-30) mmol/L Anion Gap mmol/L BUN (7-17) mg/dL Creatinine (0.52-1.04) mg/dL Est GFR (CKD-EPI)AfAm (>60 ml/min/1.73 sqM) Est GFR (CKD-EPI)NonAf (>60 ml/min/1.73 sqM) Glucose (74-99) mg/dL Lactic Ac Sepsis Rflx Plasma Lactic Acid Camron 5.4 H* (0.7-2.0) mmol/L Calcium (8.4-10.2) mg/dL Magnesium (1.6-2.3) mg/dL Total Bilirubin (0.2-1.3) mg/dL AST (14-36) U/L ALT (4-34) U/L Alkaline Phosphatase (38-126) U/L Ammonia (<30) umol/L Troponin I (0.000-0.034) ng/mL NT-Pro-B Natriuret Pep pg/mL Total Protein (6.3-8.2) g/dL Albumin (3.5-5.0) g/dL TSH (0.465-4.680) mIU/L Urine Color Colorless Urine Appearance Cloudy H (Clear) Urine pH 6.0 (5.0-8.0) Ur Specific [place] 1.005 (1.001-1.035) Urine Protein Negative (Negative) Urine Glucose (UA) Negative (Negative) Urine Ketones Negative (Negative) Urine Blood Negative (Negative) Urine Nitrite Negative (Negative) Urine Bilirubin Negative (Negative) Urine Urobilinogen <2.0 (<2.0) mg/dL Ur Leukocyte Esterase Negative (Negative) Urine WBC 1 (0-5) /hpf Ur Squamous Epith Cells 1 (0-4) /hpf Urine Mucus Rare H (None) /hpf Coronavirus (PCR) Not Detected (Not Detectd) 04/15/21 04/15/21 04/15/21 Range/Units 05:33 06:28 09:06 WBC (3.8-10.6) k/uL RBC (3.80-5.40) m/uL Hgb (11.4-16.0) gm/dL Hct (34.0-46.0) % MCV (80.0-100.0) fL MCH (25.0-35.0) pg MCHC (31.0-37.0) g/dL RDW (11.5-15.5) % Plt Count (150-450) k/uL MPV Neutrophils % % Lymphocytes % % Monocytes % % Eosinophils % % Basophils % % Neutrophils # (1.3-7.7) k/uL Lymphocytes # (1.0-4.8) k/uL Monocytes # (0-1.0) k/uL Eosinophils # (0-0.7) k/uL Basophils # (0-0.2) k/uL Anisocytosis PT (9.0-12.0) sec INR (<1.2) APTT (22.0-30.0) sec Sodium (137-145) mmol/L Potassium (3.5-5.1) mmol/L Chloride (98-107) mmol/L Carbon Dioxide (22-30) mmol/L Anion Gap mmol/L BUN (7-17) mg/dL Creatinine (0.52-1.04) mg/dL Est GFR (CKD-EPI)AfAm (>60 ml/min/1.73 sqM) Est GFR (CKD-EPI)NonAf (>60 ml/min/1.73 sqM) Glucose (74-99) mg/dL Lactic Ac Sepsis Rflx Y Plasma Lactic Acid Camron 3.9 H* (0.7-2.0) mmol/L Calcium (8.4-10.2) mg/dL Magnesium (1.6-2.3) mg/dL Total Bilirubin (0.2-1.3) mg/dL AST (14-36) U/L ALT (4-34) U/L Alkaline Phosphatase (38-126) U/L Ammonia <9 (<30) umol/L Troponin I (0.000-0.034) ng/mL NT-Pro-B Natriuret Pep pg/mL Total Protein (6.3-8.2) g/dL Albumin (3.5-5.0) g/dL TSH (0.465-4.680) mIU/L Urine Color Urine Appearance (Clear) Urine pH (5.0-8.0) Ur Specific [place] (1.001-1.035) Urine Protein (Negative) Urine Glucose (UA) (Negative) Urine Ketones (Negative) Urine Blood (Negative) Urine Nitrite (Negative) Urine Bilirubin (Negative) Urine Urobilinogen (<2.0) mg/dL Ur Leukocyte Esterase (Negative) Urine WBC (0-5) /hpf Ur Squamous Epith Cells (0-4) /hpf Urine Mucus (None) /hpf Coronavirus (PCR) (Not Detectd) 04/15/21 04/15/21 04/15/21 Range/Units 09:45 12:47 13:20 WBC (3.8-10.6) k/uL RBC (3.80-5.40) m/uL Hgb (11.4-16.0) gm/dL Hct (34.0-46.0) % MCV (80.0-100.0) fL MCH (25.0-35.0) pg MCHC (31.0-37.0) g/dL RDW (11.5-15.5) % Plt Count (150-450) k/uL MPV Neutrophils % % Lymphocytes % % Monocytes % % Eosinophils % % Basophils % % Neutrophils # (1.3-7.7) k/uL Lymphocytes # (1.0-4.8) k/uL Monocytes # (0-1.0) k/uL Eosinophils # (0-0.7) k/uL Basophils # (0-0.2) k/uL Anisocytosis PT (9.0-12.0) sec INR (<1.2) APTT (22.0-30.0) sec Sodium (137-145) mmol/L Potassium (3.5-5.1) mmol/L Chloride (98-107) mmol/L Carbon Dioxide (22-30) mmol/L Anion Gap mmol/L BUN (7-17) mg/dL Creatinine (0.52-1.04) mg/dL Est GFR (CKD-EPI)AfAm (>60 ml/min/1.73 sqM) Est GFR (CKD-EPI)NonAf (>60 ml/min/1.73 sqM) Glucose (74-99) mg/dL Lactic Ac Sepsis Rflx Y Y Plasma Lactic Acid Camron 6.9 H* (0.7-2.0) mmol/L Calcium (8.4-10.2) mg/dL Magnesium (1.6-2.3) mg/dL Total Bilirubin (0.2-1.3) mg/dL AST (14-36) U/L ALT (4-34) U/L Alkaline Phosphatase (38-126) U/L Ammonia (<30) umol/L Troponin I (0.000-0.034) ng/mL NT-Pro-B Natriuret Pep pg/mL Total Protein (6.3-8.2) g/dL Albumin (3.5-5.0) g/dL TSH (0.465-4.680) mIU/L Urine Color Urine Appearance (Clear) Urine pH (5.0-8.0) Ur Specific [place] (1.001-1.035) Urine Protein (Negative) Urine Glucose (UA) (Negative) Urine Ketones (Negative) Urine Blood (Negative) Urine Nitrite (Negative) Urine Bilirubin (Negative) Urine Urobilinogen (<2.0) mg/dL Ur Leukocyte Esterase (Negative) Urine WBC (0-5) /hpf Ur Squamous Epith Cells (0-4) /hpf Urine Mucus (None) /hpf Coronavirus (PCR) (Not Detectd) 04/15/21 04/15/21 04/15/21 Range/Units 16:02 16:29 18:48 WBC (3.8-10.6) k/uL RBC (3.80-5.40) m/uL Hgb (11.4-16.0) gm/dL Hct (34.0-46.0) % MCV (80.0-100.0) fL MCH (25.0-35.0) pg MCHC (31.0-37.0) g/dL RDW (11.5-15.5) % Plt Count (150-450) k/uL MPV Neutrophils % % Lymphocytes % % Monocytes % % Eosinophils % % Basophils % % Neutrophils # (1.3-7.7) k/uL Lymphocytes # (1.0-4.8) k/uL Monocytes # (0-1.0) k/uL Eosinophils # (0-0.7) k/uL Basophils # (0-0.2) k/uL Anisocytosis PT (9.0-12.0) sec INR (<1.2) APTT (22.0-30.0) sec Sodium (137-145) mmol/L Potassium (3.5-5.1) mmol/L Chloride (98-107) mmol/L Carbon Dioxide (22-30) mmol/L Anion Gap mmol/L BUN (7-17) mg/dL Creatinine (0.52-1.04) mg/dL Est GFR (CKD-EPI)AfAm (>60 ml/min/1.73 sqM) Est GFR (CKD-EPI)NonAf (>60 ml/min/1.73 sqM) Glucose (74-99) mg/dL Lactic Ac Sepsis Rflx Y Plasma Lactic Acid Camron 6.3 H* 7.4 H* (0.7-2.0) mmol/L Calcium (8.4-10.2) mg/dL Magnesium (1.6-2.3) mg/dL Total Bilirubin (0.2-1.3) mg/dL AST (14-36) U/L ALT (4-34) U/L Alkaline Phosphatase (38-126) U/L Ammonia (<30) umol/L Troponin I (0.000-0.034) ng/mL NT-Pro-B Natriuret Pep pg/mL Total Protein (6.3-8.2) g/dL Albumin (3.5-5.0) g/dL TSH (0.465-4.680) mIU/L Urine Color Urine Appearance (Clear) Urine pH (5.0-8.0) Ur Specific [place] (1.001-1.035) Urine Protein (Negative) Urine Glucose (UA) (Negative) Urine Ketones (Negative) Urine Blood (Negative) Urine Nitrite (Negative) Urine Bilirubin (Negative) Urine Urobilinogen (<2.0) mg/dL Ur Leukocyte Esterase (Negative) Urine WBC (0-5) /hpf Ur Squamous Epith Cells (0-4) /hpf Urine Mucus (None) /hpf Coronavirus (PCR) (Not Detectd) 04/15/21 04/15/21 04/15/21 Range/Units 20:05 22:17 22:56 WBC (3.8-10.6) k/uL RBC (3.80-5.40) m/uL Hgb (11.4-16.0) gm/dL Hct (34.0-46.0) % MCV (80.0-100.0) fL MCH (25.0-35.0) pg MCHC (31.0-37.0) g/dL RDW (11.5-15.5) % Plt Count (150-450) k/uL MPV Neutrophils % % Lymphocytes % % Monocytes % % Eosinophils % % Basophils % % Neutrophils # (1.3-7.7) k/uL Lymphocytes # (1.0-4.8) k/uL Monocytes # (0-1.0) k/uL Eosinophils # (0-0.7) k/uL Basophils # (0-0.2) k/uL Anisocytosis PT (9.0-12.0) sec INR (<1.2) APTT (22.0-30.0) sec Sodium (137-145) mmol/L Potassium (3.5-5.1) mmol/L Chloride (98-107) mmol/L Carbon Dioxide (22-30) mmol/L Anion Gap mmol/L BUN (7-17) mg/dL Creatinine (0.52-1.04) mg/dL Est GFR (CKD-EPI)AfAm (>60 ml/min/1.73 sqM) Est GFR (CKD-EPI)NonAf (>60 ml/min/1.73 sqM) Glucose (74-99) mg/dL Lactic Ac Sepsis Rflx Y Y Plasma Lactic Acid Camron 3.9 H* (0.7-2.0) mmol/L Calcium (8.4-10.2) mg/dL Magnesium (1.6-2.3) mg/dL Total Bilirubin (0.2-1.3) mg/dL AST (14-36) U/L ALT (4-34) U/L Alkaline Phosphatase (38-126) U/L Ammonia (<30) umol/L Troponin I (0.000-0.034) ng/mL NT-Pro-B Natriuret Pep pg/mL Total Protein (6.3-8.2) g/dL Albumin (3.5-5.0) g/dL TSH (0.465-4.680) mIU/L Urine Color Urine Appearance (Clear) Urine pH (5.0-8.0) Ur Specific [place] (1.001-1.035) Urine Protein (Negative) Urine Glucose (UA) (Negative) Urine Ketones (Negative) Urine Blood (Negative) Urine Nitrite (Negative) Urine Bilirubin (Negative) Urine Urobilinogen (<2.0) mg/dL Ur Leukocyte Esterase (Negative) Urine WBC (0-5) /hpf Ur Squamous Epith Cells (0-4) /hpf Urine Mucus (None) /hpf Coronavirus (PCR) (Not Detectd) 04/16/21 04/16/21 Range/Units 02:15 02:15 WBC (3.8-10.6) k/uL RBC (3.80-5.40) m/uL Hgb (11.4-16.0) gm/dL Hct (34.0-46.0) % MCV (80.0-100.0) fL MCH (25.0-35.0) pg MCHC (31.0-37.0) g/dL RDW (11.5-15.5) % Plt Count (150-450) k/uL MPV Neutrophils % % Lymphocytes % % Monocytes % % Eosinophils % % Basophils % % Neutrophils # (1.3-7.7) k/uL Lymphocytes # (1.0-4.8) k/uL Monocytes # (0-1.0) k/uL Eosinophils # (0-0.7) k/uL Basophils # (0-0.2) k/uL Anisocytosis PT (9.0-12.0) sec INR (<1.2) APTT (22.0-30.0) sec Sodium (137-145) mmol/L Potassium (3.5-5.1) mmol/L Chloride (98-107) mmol/L Carbon Dioxide (22-30) mmol/L Anion Gap mmol/L BUN (7-17) mg/dL Creatinine (0.52-1.04) mg/dL Est GFR (CKD-EPI)AfAm (>60 ml/min/1.73 sqM) Est GFR (CKD-EPI)NonAf (>60 ml/min/1.73 sqM) Glucose (74-99) mg/dL Lactic Ac Sepsis Rflx Plasma Lactic Acid [place] 1.7 (0.7-2.0) mmol/L Calcium (8.4-10.2) mg/dL Magnesium (1.6-2.3) mg/dL Total Bilirubin (0.2-1.3) mg/dL AST (14-36) U/L ALT (4-34) U/L Alkaline Phosphatase (38-126) U/L Ammonia (<30) umol/L Troponin I (0.000-0.034) ng/mL NT-Pro-B Natriuret Pep pg/mL Total Protein (6.3-8.2) g/dL Albumin (3.5-5.0) g/dL TSH 1.280 (0.465-4.680) mIU/L Urine Color Urine Appearance (Clear) Urine pH (5.0-8.0) Ur Specific [place] (1.001-1.035) Urine Protein (Negative) Urine Glucose (UA) (Negative) Urine Ketones (Negative) Urine Blood (Negative) Urine Nitrite (Negative) Urine Bilirubin (Negative) Urine Urobilinogen (<2.0) mg/dL Ur Leukocyte Esterase (Negative) Urine WBC (0-5) /hpf Ur Squamous Epith Cells (0-4) /hpf Urine Mucus (None) /hpf Coronavirus (PCR) (Not Detectd) - EKG Data -: EKG Interpreted by Me EKG shows normal: sinus rhythm, axis (Normal), intervals (Normal), QRS complexes (Normal) Rate: tachycardia (113 bpm) Interpretation: nonspecific ST-T wave changes Disposition Clinical Impression: COPD (chronic obstructive pulmonary disease), Lactic acidosis Narrative: Suspect alcohol withdrawal Disposition: ADMITTED IP TO THIS HOSP Condition: Fair Is patient prescribed a controlled substance at d/c from ED?: No
[2021-04-14 21:35] LABS: Platelet Count 360 k/uL (150-450)
[2021-04-14 21:37] LABS: ALT 63 U/L (4-34); AST 85 U/L (14-36); African American GFR (CKD) >90 (>60 ml/min/1.73 sqM); Albumin 4.5 g/dL (3.5-5.0); Alkaline Phosphatase 218 U/L (38-126); Anion Gap 17 mmol/L; Blood Urea Nitrogen 3 mg/dL (7-17); Calcium 9.6 mg/dL (8.4-10.2); Carbon Dioxide 22 mmol/L (22-30); Chloride 98 mmol/L (98-107); Glucose 190 mg/dL (74-99); Magnesium 1.8 mg/dL (1.6-2.3); Non-African American GFR(CKD) >90 (>60 ml/min/1.73 sqM); Partial Thromboplastin Time 24.4 sec (22.0-30.0); Potassium 4.1 mmol/L (3.5-5.1); Prothrombin Time 10.6 sec (9.0-12.0); Sodium 137 mmol/L (137-145); Total Bilirubin 0.2 mg/dL (0.2-1.3); Total Protein 7.4 g/dL (6.3-8.2)
--- NOTE | 2021-04-14 21:48 | XR ---
EXAMINATION TYPE: XR chest 2V DATE OF EXAM: 04/14/2021 COMPARISON: Chest x-ray dated 11/29/2020 HISTORY: Difficulty breathing TECHNIQUE: Frontal and lateral views of the chest are obtained. FINDINGS: There is no focal air space opacity, pleural effusion, or pneumothorax seen. The cardiac silhouette size is within normal limits. There are overlying artifacts. Aorta is dense. The osseous structures are intact. IMPRESSION: No acute cardiopulmonary process.
[2021-04-14] MEDS ORDERED: ONDANSETRON 4 MG/2 ML VIAL IVP STA (21:53)
[2021-04-14] MEDS ORDERED: SODIUM CHLORIDE 0.9% 1,000 ML IV STA (21:53)
[2021-04-14] MEDS ORDERED: SODIUM CHLORIDE 0.9% 500 ML 500 ML IV STA (21:53)
[2021-04-15] MEDS ORDERED: SODIUM CHLORIDE 0.9% 1,000 ML IV ONE ×2 (00:44→02:51)
[2021-04-15] MEDS ORDERED: ALBUTEROL NEBULIZED 2.5 MG/3 ML INHALATION STA (00:50)
[2021-04-15] MEDS ORDERED: HYDROcodone/APAP 5-325MG 1 EACH TAB PO STA (00:51)
[2021-04-15] MEDS ORDERED: IPRATROPIUM-ALBUTEROL 3 ML NEB INHALATION PRN (01:44)
[2021-04-15] MEDS ORDERED: LORazepam 2 MG/ML INJ IV STA (02:51)
[2021-04-15 03:19] LABS: Appearance,Urine Cloudy (Clear); Bilirubin,Urine Negative (Negative); Blood,Urine Negative (Negative); Color,Urine Colorless; Glucose,Urine (UA) Negative (Negative); Ketones,Urine Negative (Negative); Leukocyte Esterase,Urine Negative (Negative); Mucus,Urine Rare /hpf; Nitrite,Urine Negative (Negative); Protein,Urine Negative (Negative); Specific Gravity,Urine 1.005 (1.001-1.035); Squamous Epithelial Cell,Urine 1 /hpf (0-4); Urobilinogen,Urine <2.0 mg/dL (<2.0); WBC,Urine 1 /hpf (0-5)
[2021-04-15] MEDS ORDERED: THIAMINE 100 MG/ML 2 ML VIAL IM STA (05:47)
[2021-04-15] MEDS ORDERED: LORazepam 2 MG/ML INJ IV PRN ×2 (05:47)
[2021-04-15] MEDS: PANTOPRAZOLE 40 MG TABLET PO SCH ×2 (07:00→17:14)
[2021-04-15] MEDS: ALBUTEROL NEBULIZED 2.5 MG/3 ML INHALATION SCH ×4 (07:30→19:26)
[2021-04-15] MEDS: ASPIRIN 81 MG PO SCH (07:43)
[2021-04-15] MEDS: AZITHROMYCIN 500 MG TAB PO SCH (07:43)
[2021-04-15] MEDS: MULTIVITAMINS, THERA 1 EACH TAB PO SCH (07:43)
[2021-04-15] MEDS: THIAMINE 100 MG TAB PO SCH ×2 (07:43→17:14)
[2021-04-15] MEDS: MAGNESIUM OXIDE 400 MG TAB PO SCH ×3 (07:43→19:29)
[2021-04-15] MEDS ORDERED: predniSONE 20 MG TAB PO SCH (09:00)
[2021-04-15] MEDS: FLUTICASONE 50MCG/SPRAY NASAL 16GM EA NOSTRIL SCH (09:23)
[2021-04-15] MEDS: SODIUM CHLORIDE 0.9% 1,000 ML IV SCH ×2 (13:31→19:29)
[2021-04-15] MEDS: CITALOPRAM HYDROBROMIDE 10 MG TAB PO SCH (13:31)
--- NOTE | 2021-04-15 14:00 | P.HPIM ---
History of Present Illness 61-year-old female in came in status of breath found to have COPD exacerbation patient wheezing improved. Shortness of breath significantly improved. Chest x-ray did not show pneumonia patient denied any fever chills. Patient was complaining of cough without any significant sputum production. Patient is trying to quit smoking only smokes occasionally now. Patient drinks alcohol on daily basis she usually drinks wine which she is trying to quit patient is presently having withdrawals. Patient is unable to give me the exact quantity of liquor. Review of Systems REVIEW OF SYSTEMS: CONSTITUTIONAL: No fever, no malaise, no fatigue. HEENT: No recent visual problems or hearing problems. Denied any sore throat. CARDIOVASCULAR: No chest pain, orthopnea, PND, no palpitations, no syncope. PULMONARY: As mentioned in HPI GASTROINTESTINAL: No diarrhea, no nausea, no vomiting, no abdominal pain. NEUROLOGICAL: No headaches, no weakness, no numbness. HEMATOLOGICAL: Denies any bleeding or petechiae. GENITOURINARY: Denies any burning micturition, frequency, or urgency. MUSCULOSKELETAL/RHEUMATOLOGICAL: Denies any joint pain, swelling, or any muscle pain. ENDOCRINE: Denies any polyuria or polydipsia. The rest of the 14-point review of systems is negative. Past Medical History Past Medical History: Asthma, Coronary Artery Disease (CAD), CVA/TIA, Liver Disease, Myocardial Infarction ([place]), Seizure Disorder Additional Past Medical History / Comment(s): DDD, CVA 06/2019, pt. states they have a blockage in their heart, NERVE DAMAGE GREGORY LEGS, ascites Last Myocardial Infarction Date:: aug 2018 History of Any Multi-Drug Resistant Organisms: None Reported Past Surgical History: Cholecystectomy, Heart Catheterization, Joint Replacement, Orthopedic Surgery Additional Past Surgical History / Comment(s): bartholin gland cyst removal, stent placed, multi paracentesis Past Anesthesia/Blood Transfusion Reactions: No Reported Reaction Past Psychological History: Anxiety, Depression Smoking Status: Current every day smoker Past Alcohol Use History: Heavy Past Drug Use History: Marijuana - Past Family History Mother Family Medical History: Cancer, Congestive Heart Failure (CHF), Coronary Artery Disease (CAD), Hyperlipidemia Additional Family Medical History / Comment(s): Mother at age 85 from lung cancer. Father Family Medical History: Cancer, COPD Additional Family Medical History / Comment(s): Father at age 63 from lung cancer. Brother(s) Additional Family Medical History / Comment(s): Patient has a total of 7 siblings. 5 are alive without any major medical problems she is aware of. 2 siblings have one from alcohol abuse and 1. Coronary artery disease. Daughter(s) Additional Family Medical History / Comment(s): Patient has one daughter with no major medical problems. Medications and Allergies Home Medications Medication Instructions Recorded Confirmed Type Aspirin EC [Ecotrin Low Dose] 81 mg PO DAILY 02/11/19 04/15/21 History Ergocalciferol (Vitamin D2) 1,250 mcg PO FR 10/15/20 04/15/21 History [Vitamin D2 (50,000 Iu)] Multivitamin [Multivitamins Adult 1 tab PO DAILY 11/20/20 04/15/21 History Gummies] Fluticasone Nasal [place] [Flonase 1 spray EA NOSTRIL DAILY 11/30/20 04/15/21 History Nasal [place]] Magnesium Oxide [Mag-Ox] 400 mg PO TID 30 Days #90 tab 12/20/20 04/15/21 Rx Thiamine [Vitamin B-1] 100 mg PO AC-BID 12/24/20 04/15/21 History Pantoprazole [Protonix] 40 mg PO BID #30 02/21/21 04/15/21 Rx Allergies Allergy/AdvReac Type Severity Reaction Status Date / Time Influenza Virus Vaccines AdvReac Nausea & Verified 04/15/21 06:56 Vomiting morphine AdvReac Nausea & Verified 04/15/21 06:56 Vomiting Physical Exam Vitals: Vital Signs Temp Pulse Resp BP Pulse Ox 04/15/21 13:00 97.8 F 115 H 16 104/83 97 04/15/21 11:55 94 18 04/15/21 11:44 96 18 04/15/21 11:28 99 F 96 18 135/104 97 04/15/21 07:41 94 18 04/15/21 07:34 97.2 F L 89 18 137/95 100 04/15/21 07:30 96 18 04/15/21 06:58 95 20 147/85 98 04/15/21 05:28 97.8 F 97 20 120/97 98 04/15/21 02:00 100 04/15/21 01:55 103 H 04/15/21 01:08 112 H 20 145/93 94 L 04/15/21 00:20 99 F 105 H 20 115/97 97 04/14/21 23:15 99.1 F 105 H 20 129/86 94 L 04/14/21 21:14 26 H 04/14/21 21:03 98.2 F 121 H 26 H 111/95 94 L Intake and Output 04/14/21 04/15/21 04/15/21 22:59 06:59 14:59 Other: Weight 53.977 kg PHYSICAL EXAMINATION: GENERAL: The patient is alert and oriented x3, not in any acute distress. Well developed, well nourished. Does have some tremors consistent with alcohol withdrawal HEENT: Pupils are round and equally reacting to light. EOMI. No scleral icterus. No conjunctival pallor. Normocephalic, atraumatic. No pharyngeal erythema. No thyromegaly. CARDIOVASCULAR: S1 and S2 present. No murmurs, rubs, or gallops. PULMONARY: Chest is clear to auscultation, no wheezing or crackles. ABDOMEN: Soft, nontender, nondistended, normoactive bowel sounds. No palpable organomegaly. MUSCULOSKELETAL: No joint swelling or deformity. EXTREMITIES: No cyanosis, clubbing, or pedal edema. NEUROLOGICAL: Gross neurological examination did not reveal any focal deficits. SKIN: No rashes. Results CBC & Chem 7: 04/14/21 21:15 04/14/21 21:15 Labs: Abnormal Lab Results - Last 24 Hours (Table) 04/14/21 04/14/21 04/14/21 Range/Units 21:15 21:15 21:15 RDW 16.3 H (11.5-15.5) % Basophils # 0.3 H (0-0.2) k/uL BUN 3 L (7-17) mg/dL Creatinine 0.45 L (0.52-1.04) mg/dL Glucose 190 H (74-99) mg/dL Plasma Lactic Acid Camron 5.9 H* (0.7-2.0) mmol/L AST 85 H (14-36) U/L ALT 63 H (4-34) U/L Alkaline Phosphatase 218 H (38-126) U/L Urine Appearance (Clear) Urine Mucus (None) /hpf 04/15/21 04/15/21 04/15/21 Range/Units 01:02 03:05 04:37 RDW (11.5-15.5) % Basophils # (0-0.2) k/uL BUN (7-17) mg/dL Creatinine (0.52-1.04) mg/dL Glucose (74-99) mg/dL Plasma Lactic Acid Camron 5.3 H* 5.4 H* (0.7-2.0) mmol/L AST (14-36) U/L ALT (4-34) U/L Alkaline Phosphatase (38-126) U/L Urine Appearance Cloudy H (Clear) Urine Mucus Rare H (None) /hpf 04/15/21 04/15/21 Range/Units 09:06 12:47 RDW (11.5-15.5) % Basophils # (0-0.2) k/uL BUN (7-17) mg/dL Creatinine (0.52-1.04) mg/dL Glucose (74-99) mg/dL Plasma Lactic Acid Camron 3.9 H* 6.9 H* (0.7-2.0) mmol/L AST (14-36) U/L ALT (4-34) U/L Alkaline Phosphatase (38-126) U/L Urine Appearance (Clear) Urine Mucus (None) /hpf Assessment and Plan Plan: -COPD with acute exacerbation patient has significant improvement in her respiratory status continue with the steroids, inhalational treatments. Continue with 20 mg of prednisone. Nicotine cessation counseling was provided -Alcohol abuse -Alcohol withdrawal patient is presently on Ativan CIWA protocol patient was monitored overnight, continue with thiamine multiple vitamin supplementation IV fluids -Sinus tachycardia secondary to alcohol withdrawal will use beta charli on as- needed basis -History of alcohol withdrawal seizures -DVT prophylaxis with Lovenox. Prophylaxis Protonix
[2021-04-15] MEDS ORDERED: SODIUM CHLORIDE 0.9% 1,000 ML IV STA (15:23)
[2021-04-15] MEDS ORDERED: THIAMINE 100 MG TAB PO SCH (17:30)
[2021-04-15] MEDS: METOPROLOL TARTRATE 12.5 MG TAB PO SCH (19:29)
[2021-04-15] MEDS ORDERED: SODIUM CHLORIDE 0.9% 500 ML 500 ML IV ONE (20:29)
[2021-04-16] MEDS: ALBUTEROL NEBULIZED 2.5 MG/3 ML INHALATION SCH ×4 (07:48→21:25)
[2021-04-16] MEDS: METOPROLOL TARTRATE 12.5 MG TAB PO SCH ×2 (08:10→19:38)
[2021-04-16] MEDS: ASPIRIN 81 MG PO SCH (08:10)
[2021-04-16] MEDS: AZITHROMYCIN 500 MG TAB PO SCH (08:10)
[2021-04-16] MEDS: CITALOPRAM HYDROBROMIDE 10 MG TAB PO SCH (08:10)
[2021-04-16] MEDS: MULTIVITAMINS, THERA 1 EACH TAB PO SCH (08:10)
[2021-04-16] MEDS: THIAMINE 100 MG TAB PO SCH ×2 (08:10→17:40)
[2021-04-16] MEDS: PANTOPRAZOLE 40 MG TABLET PO SCH ×2 (08:10→17:40)
[2021-04-16] MEDS: MAGNESIUM OXIDE 400 MG TAB PO SCH ×3 (08:10→19:38)
[2021-04-16] MEDS: predniSONE 20 MG TAB PO SCH (08:10)
[2021-04-16] MEDS: ENOXAPARIN 40 MG/0.4 ML SYRINGE SQ SCH (08:11)
[2021-04-16] MEDS: FLUTICASONE 50MCG/SPRAY NASAL 16GM EA NOSTRIL SCH (08:11)
[2021-04-16] MEDS: DICYCLOMINE 10 MG CAP PO PRN (14:28)
--- NOTE | 2021-04-16 15:27 | P.PN ---
Subjective 61-year-old female in came in status of breath found to have COPD exacerbation patient wheezing improved. Shortness of breath significantly improved. Chest x-ray did not show pneumonia patient denied any fever chills. Patient was complaining of cough without any significant sputum production. Patient is trying to quit smoking only smokes occasionally now. Patient drinks alcohol on daily basis she usually drinks wine which she is trying to quit patient is presently having withdrawals. Patient is unable to give me the exact quantity of liquor. 04/16/2021 Patient has some abdominal cramps patient does have tremor. Patient will be monitored one more night for the alcohol withdrawal. Patient wheezing resolved at this time. Constitutional: Denied any fatigue denied any fever. Cardio vascular: denied any chest pain, palpitations Gastrointestinal denied any nausea vomiting Pulmonary: Denied any shortness of breath cough Neurologic denied any new focal deficits All inpatient medications were reviewed and appropriate changes in these medications as dictated in the interval history and assessment and plan. Objective - Vital Signs Vital signs: Vital Signs Temp 98.2 F 04/16/21 15:00 Pulse 99 04/16/21 15:00 Resp 16 04/16/21 15:00 BP 155/86 04/16/21 15:00 Pulse Ox 97 04/16/21 15:00 Intake & Output 04/15/21 04/16/21 04/16/21 18:59 06:59 18:59 Weight 53.977 kg Other: Voiding Method Toilet Toilet # Voids 1 4 - Exam PHYSICAL EXAMINATION: GENERAL: The patient is alert and oriented x3, not in any acute distress. Well developed, well nourished. Does have some tremors. HEENT: Pupils are round and equally reacting to light. EOMI. No scleral icterus. No conjunctival pallor. Normocephalic, atraumatic. No pharyngeal erythema. No thyromegaly. CARDIOVASCULAR: S1 and S2 present. No murmurs, rubs, or gallops. PULMONARY: Chest is clear to auscultation, no wheezing or crackles. ABDOMEN: Soft, nontender, nondistended, normoactive bowel sounds. No palpable organomegaly. MUSCULOSKELETAL: No joint swelling or deformity. EXTREMITIES: No cyanosis, clubbing, or pedal edema. NEUROLOGICAL: Gross neurological examination did not reveal any focal deficits. SKIN: No rashes. - Labs CBC & Chem 7: 04/14/21 21:15 04/14/21 21:15 Labs: Abnormal Lab Results - Last 24 Hours (Table) 04/15/21 04/15/21 04/15/21 Range/Units 16:02 18:48 22:17 Plasma Lactic Acid Camron 6.3 H* 7.4 H* 3.9 H* (0.7-2.0) mmol/L Microbiology - Last 24 Hours (Table) 04/14/21 21:57 Blood Culture - Preliminary Blood No Growth after 24 hours 04/14/21 21:57 Blood Culture - Preliminary Blood No Growth after 24 hours Assessment and Plan Plan: -COPD with acute exacerbation patient has significant improvement in her respiratory status continue with the steroids, inhalational treatments. Continue with 20 mg of prednisone. Nicotine cessation counseling was provided patient wheezing resolved -Alcohol abuse -Alcohol withdrawal patient is presently on Ativan CIWA protocol patient was monitored overnight, continue with thiamine multiple vitamin supplementation IV fluids -Sinus tachycardia secondary to alcohol withdrawal will use beta charli on as- needed basis -History of alcohol withdrawal seizures -DVT prophylaxis with Lovenox. Prophylaxis Protonix
[2021-04-16] MEDS: SODIUM CHLORIDE 0.9% 1,000 ML IV SCH ×2 (19:02→19:38)
[2021-04-17] MEDS: SODIUM CHLORIDE 0.9% 1,000 ML IV SCH ×2 (05:30→19:44)
[2021-04-17] MEDS: LORazepam 2 MG/ML INJ IV PRN (06:00)
[2021-04-17] MEDS: ALBUTEROL NEBULIZED 2.5 MG/3 ML INHALATION SCH ×4 (08:20→21:50)
[2021-04-17] MEDS: ENOXAPARIN 40 MG/0.4 ML SYRINGE SQ SCH (08:50)
[2021-04-17] MEDS: METOPROLOL TARTRATE 12.5 MG TAB PO SCH ×2 (08:51→19:45)
[2021-04-17] MEDS: predniSONE 20 MG TAB PO SCH (08:51)
[2021-04-17] MEDS: CITALOPRAM HYDROBROMIDE 10 MG TAB PO SCH (08:51)
[2021-04-17] MEDS: FLUTICASONE 50MCG/SPRAY NASAL 16GM EA NOSTRIL SCH (08:51)
[2021-04-17] MEDS: THIAMINE 100 MG TAB PO SCH ×2 (08:51→18:02)
[2021-04-17] MEDS: AZITHROMYCIN 500 MG TAB PO SCH (08:51)
[2021-04-17] MEDS: ASPIRIN 81 MG PO SCH (08:51)
[2021-04-17] MEDS: PANTOPRAZOLE 40 MG TABLET PO SCH ×2 (08:51→18:02)
[2021-04-17] MEDS: MAGNESIUM OXIDE 400 MG TAB PO SCH ×3 (08:51→19:45)
[2021-04-17] MEDS: MULTIVITAMINS, THERA 1 EACH TAB PO SCH (08:51)
--- NOTE | 2021-04-17 12:29 | P.PN ---
Subjective 61-year-old female in came in status of breath found to have COPD exacerbation patient wheezing improved. Shortness of breath significantly improved. Chest x-ray did not show pneumonia patient denied any fever chills. Patient was complaining of cough without any significant sputum production. Patient is trying to quit smoking only smokes occasionally now. Patient drinks alcohol on daily basis she usually drinks wine which she is trying to quit patient is presently having withdrawals. Patient is unable to give me the exact quantity of liquor. 04/16/2021 Patient has some abdominal cramps patient does have tremor. Patient will be monitored one more night for the alcohol withdrawal. Patient wheezing resolved at this time. 04/17/2021 patient is complaining of nausea and is still having withdrawals which are bit worse compared to yesterday Constitutional: Denied any fatigue denied any fever. Cardio vascular: denied any chest pain, palpitations Gastrointestinal denied any vomiting Pulmonary: Denied any shortness of breath cough Neurologic denied any new focal deficits All inpatient medications were reviewed and appropriate changes in these medications as dictated in the interval history and assessment and plan. Objective - Vital Signs Vital signs: Vital Signs Temp 98.0 F 04/17/21 08:00 Pulse 80 04/17/21 11:23 Resp 18 04/17/21 08:00 BP 101/64 04/17/21 08:00 Pulse Ox 100 04/17/21 02:00 Intake & Output 04/16/21 04/17/21 04/17/21 18:59 06:59 18:59 Other: Voiding Method Toilet Toilet Toilet # Voids 1 4 - Exam PHYSICAL EXAMINATION: GENERAL: The patient is alert and oriented x3, not in any acute distress. Well developed, well nourished. Does have some tremors. HEENT: Pupils are round and equally reacting to light. EOMI. No scleral icterus. No conjunctival pallor. Normocephalic, atraumatic. No pharyngeal erythema. No thyromegaly. CARDIOVASCULAR: S1 and S2 present. No murmurs, rubs, or gallops. PULMONARY: Chest is clear to auscultation, no wheezing or crackles. ABDOMEN: Soft, nontender, nondistended, normoactive bowel sounds. No palpable organomegaly. MUSCULOSKELETAL: No joint swelling or deformity. EXTREMITIES: No cyanosis, clubbing, or pedal edema. NEUROLOGICAL: Gross neurological examination did not reveal any focal deficits. SKIN: No rashes. - Labs CBC & Chem 7: 04/14/21 21:15 04/14/21 21:15 Labs: Microbiology - Last 24 Hours (Table) 04/14/21 21:57 Blood Culture - Preliminary Blood No Growth after 48 hours 04/14/21 21:57 Blood Culture - Preliminary Blood No Growth after 48 hours Assessment and Plan Plan: -COPD with acute exacerbation patient has significant improvement in her respiratory status continue with the steroids, inhalational treatments. Continue with 20 mg of prednisone. Nicotine cessation counseling was provided patient wheezing resolved -Alcohol abuse -Alcohol withdrawal patient is presently on Ativan CIWA protocol patient was monitored overnight, continue with thiamine multiple vitamin supplementation IV fluids -Sinus tachycardia secondary to alcohol withdrawal will use beta charli on as- needed basis -History of alcohol withdrawal seizures -DVT prophylaxis with Lovenox. Prophylaxis Protonix
[2021-04-17] MEDS ORDERED: traMADol 50 MG TAB PO STA (18:11)
[2021-04-17] MEDS ORDERED: LIDOCAINE 5% PATCH TOPICAL SCH ×2 (18:15→18:20)
[2021-04-17] MEDS: DICYCLOMINE 10 MG CAP PO PRN (19:52)
[2021-04-18] MEDS: SODIUM CHLORIDE 0.9% 1,000 ML IV SCH ×2 (02:57→08:24)
[2021-04-18] MEDS: ALBUTEROL NEBULIZED 2.5 MG/3 ML INHALATION SCH ×2 (07:57→11:36)
[2021-04-18 08:21] VITALS: BP 144/91; PULSE 76; RESP 17; TEMP 98.3
[2021-04-18] MEDS: MULTIVITAMINS, THERA 1 EACH TAB PO SCH (08:52)
[2021-04-18] MEDS: predniSONE 20 MG TAB PO SCH (08:52)
[2021-04-18] MEDS: PANTOPRAZOLE 40 MG TABLET PO SCH (08:52)
[2021-04-18] MEDS: MAGNESIUM OXIDE 400 MG TAB PO SCH (08:52)
[2021-04-18] MEDS: ENOXAPARIN 40 MG/0.4 ML SYRINGE SQ SCH (08:52)
[2021-04-18] MEDS: ASPIRIN 81 MG PO SCH (08:52)
[2021-04-18] MEDS: METOPROLOL TARTRATE 12.5 MG TAB PO SCH (08:52)
[2021-04-18] MEDS: THIAMINE 100 MG TAB PO SCH (08:52)
[2021-04-18] MEDS: CITALOPRAM HYDROBROMIDE 10 MG TAB PO SCH (08:52)
[2021-04-18] MEDS: FLUTICASONE 50MCG/SPRAY NASAL 16GM EA NOSTRIL SCH (08:53)
[2021-04-18] MEDS: DICYCLOMINE 10 MG CAP PO PRN (09:00)
[2021-04-18] MEDS: AZITHROMYCIN 500 MG TAB PO SCH (09:46)
[2021-04-18] MEDS: LORazepam 2 MG/ML INJ IV PRN (09:51)
--- NOTE | 2021-04-18 22:53 | DS ---
DISCHARGE SUMMARY DATE OF SERVICE: 04/18/2021 FINAL DIAGNOSES: 1. Chronic obstructive pulmonary disease acute exacerbation with acute purulent tracheobronchitis. 2. History of alcohol abuse. 3. Alcohol withdrawal syndrome. 4. Sinus tachycardia. 5. History of alcohol withdrawal seizures. DISCHARGE DISPOSITION: The patient will be discharged in stable condition with guarded prognosis. HISTORY OF PRESENT ILLNESS: This 61-year-old woman with a past medical history of multiple medical problems was admitted with COPD and acute alcohol withdrawal symptoms. The patient improved significantly and treated symptomatically. EXAM: Vitals stable. Cardiovascular S1 and S2. Respirations: A few rhonchi. Abdomen soft. DISCHARGE ADVICE: Diet is cardiac. Activity limited until followup. No alcohol. Followup with Dr. Miya Johnson in 1-2 days. DISCHARGE MEDICATIONS: 1. Ecotrin 81 mg daily. 2. Flonase 1 spray. 3. Multivitamins 1 p.o. daily. 4. Thiamine 100 mg p.o. daily. 5. Vitamin D2 1250 mcg p.o. Sunday. 6. Bentyl p.r.n. 7. Celexa 10 mg p.o. daily. 8. DuoNeb q.i.d. and p.r.n. for severe COPD, J44.9. 9. Folic acid 1 mg p.o. daily. 10.Lopressor 12.5 mg p.o. b.i.d. 11.Magnesium oxide 400 mg p.o. t.i.d. 12.Protonix 40 mg p.o. b.i.d. 13.Symbicort 1 puff b.i.d. 14.Thiamine 100 mg p.o. daily. 15.Zithromax 500 daily for 5 days. To attend alcohol rehab. Prognosis guarded. MMODL / IJN: [id number] /
== END 2021-04-18 14:40 | disposition home or self-care (01) | DRG 202 ==
LOC: EC 20:47 → 6NMEDSUR 04-15 01:44 → OBSVTOIN 04-16 12:34
PROVIDERS: ADMIT Hospitalist; ATTEND Hospitalist
DX: J20.9 Acute bronchitis, unspecified (principal); J44.0 Chronic obstructive pulmonary disease with (acute) lower respiratory infection; J44.1 Chronic obstructive pulmonary disease with (acute) exacerbation; F10.239 Alcohol dependence with withdrawal, unspecified; E87.2 Acidosis; I25.10 Atherosclerotic heart disease of native coronary artery without angina pectoris; Z20.822 Contact with and (suspected) exposure to COVID-19; F32.9 Major depressive disorder, single episode, unspecified; F41.9 Anxiety disorder, unspecified; F17.200 Nicotine dependence, unspecified, uncomplicated; Z79.51 Long term (current) use of inhaled steroids; Z79.82 Long term (current) use of aspirin; Z79.899 Other long term (current) drug therapy; Z86.73 Personal history of transient ischemic attack (TIA), and cerebral infarction without residual deficits; I25.2 Old myocardial infarction; R00.0 Tachycardia, unspecified
CPT/HCPCS: 36415; 71046; 80053; 81001; 82140; 83605; 83735; 83880; 84443; 84484; 85025; 85610; 85730; 87040; 87635; 93005; 94640; 96361; 96365; 96375; 99285

== ENCOUNTER 2021-04-19 00:15 | Emergency (ER) | payer OTHER ==
[2021-04-19 00:22] VITALS: TEMP 97.6
[2021-04-19] MEDS ORDERED: methylPREDNISolone SOD SUCCI 125 MG/2 ML VIAL IV STA (00:23)
[2021-04-19] MEDS ORDERED: IPRATROPIUM-ALBUTEROL 3 ML NEB INHALATION STA (00:23)
[2021-04-19] MEDS ORDERED: SODIUM CHLORIDE 0.9% 1,000 ML IV STA ×3 (00:23→02:18)
--- NOTE | 2021-04-19 00:24 | ED ---
Weakness HPI - General Chief complaint: Recheck/Abnormal Lab/Rx Stated complaint: hypotension Time Seen by Provider: 04/19/21 00:23 Source: patient, EMS, RN notes reviewed, old records reviewed Mode of arrival: EMS Limitations: no limitations - History of Present Illness Initial comments: This is a 7-year-old female presented today for evaluation. Patient was sent in for evaluation regarding low blood pressure. Patient has recent shortness of breath. Patient recently diagnosed with COPD history of asthma. Patient does complain of some shortness of breath. No current chest pain. Mild cough or congestion. Patient denying any recent fevers mild no nausea vomiting or diarrhea. MD Complaint: generalized weakness (Low blood pressure) -: unknown Location: generalized Severity: moderate Severity scale (1-10): 7 Improves with: none Worsens with: none Context: recent illness, history of similar Associated Symptoms: shortness of breath - Related Data Home Medications Medication Instructions Recorded Confirmed Aspirin EC [Ecotrin Low Dose] 81 mg PO DAILY 02/11/19 04/15/21 Ergocalciferol (Vitamin D2) 1,250 mcg PO FR 10/15/20 04/15/21 [Vitamin D2 (50,000 Iu)] Multivitamin [Multivitamins Adult 1 tab PO DAILY 11/20/20 04/15/21 Gummies] Fluticasone Nasal [place] [Flonase 1 spray EA NOSTRIL DAILY 11/30/20 04/15/21 Nasal [place]] Thiamine [Vitamin B-1] 100 mg PO AC-BID 12/24/20 04/15/21 Previous Rx's Medication Instructions Recorded Magnesium Oxide [Mag-Ox] 400 mg PO TID 30 Days #90 tab 12/20/20 Pantoprazole [Protonix] 40 mg PO BID #30 02/21/21 Azithromycin [Zithromax] 500 mg PO DAILY #5 tab 04/18/21 Budesonide/Formoterol Fumarate 1 puff IH BID #1 hfa.aer.ad 04/18/21 [Symbicort 160-4.5 Mcg Inhaler] Citalopram Hydrobromide [CeleXA] 10 mg PO DAILY #30 tab 04/18/21 Dicyclomine [Bentyl] 10 mg PO TID PRN #20 cap 04/18/21 Folic Acid 1 mg PO DAILY #30 tablet 06/07/21 Ipratropium-Albuterol Nebulize 3 ml INHALATION RT-Q6H #1 ml 04/18/21 [Duoneb 0.5 mg-3 mg/3 ml Soln] Metoprolol Tartrate [Lopressor] 12.5 mg PO BID #60 tab 04/18/21 Thiamine [Vitamin B-1] 100 mg PO DAILY #30 tablet 04/18/21 Allergies Allergy/AdvReac Type Severity Reaction Status Date / Time Influenza Virus Vaccines AdvReac Nausea & Verified 04/19/21 00:22 Vomiting morphine AdvReac Nausea & Verified 04/19/21 00:22 Vomiting Review of Systems ROS Statement: Those systems with pertinent positive or pertinent negative responses have been documented in the HPI. ROS Other: All systems not noted in ROS Statement are negative. Past Medical History Past Medical History: Asthma, Coronary Artery Disease (CAD), CVA/TIA, Liver Disease, Myocardial Infarction ([place]), Seizure Disorder Additional Past Medical History / Comment(s): DDD, CVA 06/2019, pt. states they have a blockage in their heart, NERVE DAMAGE GREGORY LEGS, ascites Last Myocardial Infarction Date:: aug 2018 History of Any Multi-Drug Resistant Organisms: None Reported Past Surgical History: Cholecystectomy, Heart Catheterization, Joint Replacement, Orthopedic Surgery Additional Past Surgical History / Comment(s): bartholin gland cyst removal, stent placed, multi paracentesis Past Anesthesia/Blood Transfusion Reactions: No Reported Reaction Past Psychological History: Anxiety, Depression Smoking Status: Current some day smoker Past Alcohol Use History: Heavy Past Drug Use History: Marijuana - Past Family History Mother Family Medical History: Cancer, Congestive Heart Failure (CHF), Coronary Artery Disease (CAD), Hyperlipidemia Additional Family Medical History / Comment(s): Mother at age 85 from lung cancer. Father Family Medical History: Cancer, COPD Additional Family Medical History / Comment(s): Father at age 63 from lung cancer. Brother(s) Additional Family Medical History / Comment(s): Patient has a total of 7 siblings. 5 are alive without any major medical problems she is aware of. 2 siblings have one from alcohol abuse and 1. Coronary artery disease. Daughter(s) Additional Family Medical History / Comment(s): Patient has one daughter with no major medical problems. General Exam Limitations: no limitations General appearance: alert, in no apparent distress Head exam: Present: atraumatic, normocephalic, normal inspection Eye exam: Present: normal appearance, PERRL, EOMI. Absent: scleral icterus, conjunctival injection, periorbital swelling ENT exam: Present: normal exam, mucous membranes moist Neck exam: Present: normal inspection. Absent: tenderness, meningismus, lymphadenopathy Respiratory exam: Present: normal lung sounds bilaterally. Absent: respiratory distress, wheezes, rales, rhonchi, stridor Cardiovascular Exam: Present: regular rate, normal rhythm, normal heart sounds. Absent: systolic murmur, diastolic murmur, rubs, gallop, clicks GI/Abdominal exam: Present: soft, normal bowel sounds. Absent: distended, tenderness, guarding, rebound, rigid Extremities exam: Present: normal inspection, full ROM, normal capillary refill. Absent: tenderness, pedal edema, joint swelling, calf tenderness Back exam: Present: normal inspection Neurological exam: Present: alert, oriented X3, CN II-XII intact Psychiatric exam: Present: normal affect, normal mood Skin exam: Present: warm, dry, intact, normal color. Absent: rash Course Vital Signs 04/19/21 04/19/21 00:17 01:22 Temperature 97.6 F Pulse Rate 71 86 Respiratory 18 16 Rate Blood Pressure 93/67 103/89 O2 Sat by Pulse 93 L 95 Oximetry - Reevaluation(s) Reevaluation #1: 04/19/21 02:31 Medical record is reviewed Reevaluation #2: 04/19/21 02:31 Patient shortness of breath is improved Reevaluation #3: 04/19/21 02:32 Patient does admit to drinking alcohol today Reevaluation #4: 04/19/21 02:32 Patient improvement with hydration breathing treatment here in the ER Reevaluation #5: 04/19/21 02:32 Patient informed results questions answered okay for discharge EKG Findings - EKG Comments: EKG Findings:: EKG is sinus rhythm 88 AL 1:30 QRS 92 QTC 491 Medical Decision Making - Lab Data Result diagrams: 04/19/21 00:47 04/19/21 00:47 Lab Results 04/19/21 04/19/21 04/19/21 Range/Units 00:47 00:47 00:47 WBC 11.8 H (3.8-10.6) k/uL RBC 3.92 (3.80-5.40) m/uL Hgb 12.1 D (11.4-16.0) gm/dL Hct 37.6 (34.0-46.0) % MCV 96.1 (80.0-100.0) fL MCH 30.8 (25.0-35.0) pg MCHC 32.1 (31.0-37.0) g/dL RDW 17.1 H (11.5-15.5) % Plt Count 161 D (150-450) k/uL MPV 7.6 Neutrophils % 73 % Lymphocytes % 20 % Monocytes % 3 % Eosinophils % 1 % Basophils % 1 % Neutrophils # 8.7 H (1.3-7.7) k/uL Lymphocytes # 2.4 (1.0-4.8) k/uL Monocytes # 0.4 (0-1.0) k/uL Eosinophils # 0.1 (0-0.7) k/uL Basophils # 0.1 (0-0.2) k/uL Anisocytosis Slight PT 10.5 (9.0-12.0) sec INR 1.0 (<1.2) APTT 23.0 (22.0-30.0) sec Sodium 132 L (137-145) mmol/L Potassium 3.5 (3.5-5.1) mmol/L Chloride 100 (98-107) mmol/L Carbon Dioxide 21 L (22-30) mmol/L Anion Gap 11 mmol/L BUN 4 L (7-17) mg/dL Creatinine 0.40 L (0.52-1.04) mg/dL Est GFR (CKD-EPI)AfAm >90 (>60 ml/min/1.73 sqM) Est GFR (CKD-EPI)NonAf >90 (>60 ml/min/1.73 sqM) Glucose 99 (74-99) mg/dL Plasma Lactic Acid Camron (0.7-2.0) mmol/L Calcium 8.4 (8.4-10.2) mg/dL Magnesium 1.6 (1.6-2.3) mg/dL Total Bilirubin 0.1 L (0.2-1.3) mg/dL AST 44 H (14-36) U/L ALT 37 H (4-34) U/L Alkaline Phosphatase 172 H (38-126) U/L Creatine Kinase 28 L (30-135) U/L Troponin I (0.000-0.034) ng/mL NT-Pro-B Natriuret Pep pg/mL Total Protein 6.0 L (6.3-8.2) g/dL Albumin 3.4 L (3.5-5.0) g/dL 04/19/21 04/19/21 04/19/21 Range/Units 00:47 00:47 00:47 WBC (3.8-10.6) k/uL RBC (3.80-5.40) m/uL Hgb (11.4-16.0) gm/dL Hct (34.0-46.0) % MCV (80.0-100.0) fL MCH (25.0-35.0) pg MCHC (31.0-37.0) g/dL RDW (11.5-15.5) % Plt Count (150-450) k/uL MPV Neutrophils % % Lymphocytes % % Monocytes % % Eosinophils % % Basophils % % Neutrophils # (1.3-7.7) k/uL Lymphocytes # (1.0-4.8) k/uL Monocytes # (0-1.0) k/uL Eosinophils # (0-0.7) k/uL Basophils # (0-0.2) k/uL Anisocytosis PT (9.0-12.0) sec INR (<1.2) APTT (22.0-30.0) sec Sodium (137-145) mmol/L Potassium (3.5-5.1) mmol/L Chloride (98-107) mmol/L Carbon Dioxide (22-30) mmol/L Anion Gap mmol/L BUN (7-17) mg/dL Creatinine (0.52-1.04) mg/dL Est GFR (CKD-EPI)AfAm (>60 ml/min/1.73 sqM) Est GFR (CKD-EPI)NonAf (>60 ml/min/1.73 sqM) Glucose (74-99) mg/dL Plasma Lactic Acid Camron 3.0 H* (0.7-2.0) mmol/L Calcium (8.4-10.2) mg/dL Magnesium (1.6-2.3) mg/dL Total Bilirubin (0.2-1.3) mg/dL AST (14-36) U/L ALT (4-34) U/L Alkaline Phosphatase (38-126) U/L Creatine Kinase (30-135) U/L Troponin I <0.012 (0.000-0.034) ng/mL NT-Pro-B Natriuret Pep 1100 pg/mL Total Protein (6.3-8.2) g/dL Albumin (3.5-5.0) g/dL Disposition Clinical Impression: COPD exacerbation, Shortness of breath, Elevated liver enzymes, Alcohol intoxication, Dehydration Disposition: HOME SELF-CARE Condition: Good Instructions (If sedation given, give patient instructions): COPD (Chronic Obstructive Pulmonary Disease) (ED), Dehydration (ED) Is patient prescribed a controlled substance at d/c from ED?: No Referrals: Miya Johnson MD [Primary Care Provider] - 1-2 days
[2021-04-19] MEDS ORDERED: AZITHROMYCIN 500 MG in SODIUM CHLORIDE 0.9% 250 ML IVPB STA (00:29)
[2021-04-19 01:27] LABS: Anisocytosis Slight; Basophils # (A) 0.1 k/uL (0-0.2); Basophils % (A) 1 %; Eosinophils # (A) 0.1 k/uL (0-0.7); Eosinophils % (A) 1 %; HCT 37.6 % (34.0-46.0); Lymphocytes # (A) 2.4 k/uL (1.0-4.8); Lymphocytes % (A) 20 %; MCH 30.8 pg (25.0-35.0); MCHC 32.1 g/dL (31.0-37.0); MCV 96.1 fL (80.0-100.0); Mean Platelet Volume 7.6; Monocytes # (A) 0.4 k/uL (0-1.0); Monocytes % (A) 3 %; Neutrophils # (A) 8.7 k/uL (1.3-7.7); Neutrophils % (A) 73 %; RBC 3.92 m/uL (3.80-5.40); RDW 17.1 % (11.5-15.5); WBC 11.8 k/uL (3.8-10.6)
[2021-04-19 01:28] LABS: Prothrombin Time 10.5 sec (9.0-12.0)
--- NOTE | 2021-04-19 01:31 | XR ---
EXAM: XR Chest, 2 Views CLINICAL HISTORY: difficulty breathing TECHNIQUE: Frontal and lateral views of the chest. COMPARISON: 04/14/21 FINDINGS: Lungs: Bilateral interstitial prominence. Pleural space: No significant abnormality. No pneumothorax. Heart: Borderline sized cardiomediastinal silhouette. Mediastinum: See above. Bones/joints: No acute osseous abnormality. IMPRESSION: Nonspecific interstitial prominence may be related to mild edema.
[2021-04-19 01:57] LABS: ALT 37 U/L (4-34); AST 44 U/L (14-36); African American GFR (CKD) >90 (>60 ml/min/1.73 sqM); Albumin 3.4 g/dL (3.5-5.0); Alkaline Phosphatase 172 U/L (38-126); Anion Gap 11 mmol/L; Blood Urea Nitrogen 4 mg/dL (7-17); Calcium 8.4 mg/dL (8.4-10.2); Carbon Dioxide 21 mmol/L (22-30); Chloride 100 mmol/L (98-107); Creatine Kinase 28 U/L (30-135); Glucose 99 mg/dL (74-99); Magnesium 1.6 mg/dL (1.6-2.3); Non-African American GFR(CKD) >90 (>60 ml/min/1.73 sqM); Potassium 3.5 mmol/L (3.5-5.1); Sodium 132 mmol/L (137-145); Total Bilirubin 0.1 mg/dL (0.2-1.3)
[2021-04-19 03:35] VITALS: BP 114/80; PULSE 98; RESP 18
[2021-04-19 07:13] LABS: HGB 12.1 gm/dL (11.4-16.0)
[2021-04-19 07:14] LABS: Platelet Count 161 k/uL (150-450)
== END 2021-04-19 03:45 | disposition home or self-care (01) ==
LOC: EC 00:15
DX: J44.1 Chronic obstructive pulmonary disease with (acute) exacerbation (principal); I25.2 Old myocardial infarction; E86.0 Dehydration; R74.8 Abnormal levels of other serum enzymes; I25.10 Atherosclerotic heart disease of native coronary artery without angina pectoris; F10.129 Alcohol abuse with intoxication, unspecified; Z79.82 Long term (current) use of aspirin; Z86.73 Personal history of transient ischemic attack (TIA), and cerebral infarction without residual deficits; G40.909 Epilepsy, unspecified, not intractable, without status epilepticus; F17.200 Nicotine dependence, unspecified, uncomplicated; F12.90 Cannabis use, unspecified, uncomplicated; Z90.49 Acquired absence of other specified parts of digestive tract; Z95.5 Presence of coronary angioplasty implant and graft
CPT/HCPCS: 36415; 94640; 93005; 83880; 80053; 82550; 83605; 83735; 84484; 85025; 85610; 85730; 71046; 99285; 96365; 96375; 96361; J2930; J0456

== ENCOUNTER 2021-04-20 15:33 | Observation (INO) | payer OTHER ==
--- NOTE | 2021-04-20 16:03 | ED ---
SOB HPI - General Chief Complaint: Shortness of Breath Stated Complaint: MARY ALICE Time Seen by Provider: 04/20/21 15:41 Source: EMS Mode of arrival: EMS Limitations: physical limitation - History of Present Illness Initial Comments: Bryant is a 61-year-old female who returns to the ER today with complaint of persistent shortness of breath. Patient has a history of CHF and COPD. She was seen 2 days ago for generalized weakness. At that time she was found to have mild COPD exacerbation as well as an elevated BNP concerning for congestive heart failure. Patient was prescribed steroids. Patient states that she's been using her breathing treatments every 4 hours as prescribed but has not taken the steroids because she was confused about how they were prescribed and how she is supposed to take them. Patient denies any chest pain, palpitations, fever, cough, recent illness. She states that she continues to feel like she can't catch her breath. She states that she is always told that her oxygen levels are okay but she still feels like she can't catch her breath. Nothing changed today but because of persistence of her symptoms she wanted to be reevaluated. - Related Data Home Medications Medication Instructions Recorded Confirmed Aspirin EC [Ecotrin Low Dose] 81 mg PO DAILY 02/11/19 04/15/21 Ergocalciferol (Vitamin D2) 1,250 mcg PO FR 10/15/20 04/15/21 [Vitamin D2 (50,000 Iu)] Multivitamin [Multivitamins Adult 1 tab PO DAILY 11/20/20 04/15/21 Gummies] Fluticasone Nasal [place] [Flonase 1 spray EA NOSTRIL DAILY 11/30/20 04/15/21 Nasal [place]] Azithromycin [Zithromax] 500 mg PO DIRECTED 04/20/21 04/20/21 Budesonide/Formoterol Fumarate 1 puff INHALATION DIRECTED 04/20/21 04/20/21 [Symbicort 160-4.5 Mcg Inhaler] Dicyclomine [Bentyl] 10 mg PO DIRECTED PRN 04/20/21 04/20/21 Ipratropium-Albuterol Nebulize 3 ml INHALATION DIRECTED 04/20/21 04/20/21 [Duoneb 0.5 mg-3 mg/3 ml Soln] Metoprolol Tartrate [Lopressor] 12.5 mg PO DIRECTED 04/20/21 04/20/21 Thiamine [Vitamin B-1] 100 mg PO DIRECTED 04/20/21 04/20/21 Previous Rx's Medication Instructions Recorded Magnesium Oxide [Mag-Ox] 400 mg PO TID 30 Days #90 tab 12/20/20 Pantoprazole [Protonix] 40 mg PO BID #30 02/21/21 Citalopram Hydrobromide [CeleXA] 10 mg PO DAILY #30 tab 04/18/21 Folic Acid 1 mg PO DAILY #30 tablet 04/18/21 Allergies Allergy/AdvReac Type Severity Reaction Status Date / Time Influenza Virus Vaccines AdvReac Nausea & Verified 04/19/21 00:22 Vomiting morphine AdvReac Nausea & Verified 04/19/21 00:22 Vomiting Review of Systems ROS Statement: Those systems with pertinent positive or pertinent negative responses have been documented in the HPI. ROS Other: All systems not noted in ROS Statement are negative. Past Medical History Past Medical History: Asthma, Coronary Artery Disease (CAD), CVA/TIA, Liver Disease, Myocardial Infarction ([place]), Seizure Disorder Additional Past Medical History / Comment(s): DDD, CVA 06/2019, pt. states they have a blockage in their heart, NERVE DAMAGE GREGORY LEGS, ascites Last Myocardial Infarction Date:: aug 2018 History of Any Multi-Drug Resistant Organisms: None Reported Past Surgical History: Cholecystectomy, Heart Catheterization, Joint Replacement, Orthopedic Surgery Additional Past Surgical History / Comment(s): bartholin gland cyst removal, stent placed, multi paracentesis Past Anesthesia/Blood Transfusion Reactions: No Reported Reaction Past Psychological History: Anxiety, Depression Smoking Status: Current some day smoker Past Alcohol Use History: Heavy Past Drug Use History: Marijuana - Past Family History Mother Family Medical History: Cancer, Congestive Heart Failure (CHF), Coronary Artery Disease (CAD), Hyperlipidemia Additional Family Medical History / Comment(s): Mother at age 85 from lung cancer. Father Family Medical History: Cancer, COPD Additional Family Medical History / Comment(s): Father at age 63 from lung cancer. Brother(s) Additional Family Medical History / Comment(s): Patient has a total of 7 siblings. 5 are alive without any major medical problems she is aware of. 2 siblings have one from alcohol abuse and 1. Coronary artery disease. Daughter(s) Additional Family Medical History / Comment(s): Patient has one daughter with no major medical problems. General Exam - General Exam Comments Initial Comments: Physical Exam GENERAL: Chronically ill appearing HENT: Normocephalic, Atraumatic. EYES: PERRL, EOMI PULMONARY: Crackles at bases SpO2 97% on RA CARDIOVASCULAR: RRR ABDOMEN: Central obesity Soft and nontender with normal bowel sounds. SKIN: Bruising on lower abdomen consistent with recent heparin/lovenox injections : Deferred NEUROLOGIC: Patient is alert and oriented x3. Moving all extremities spontaneously MUSCULOSKELETAL: Generalized weakness due to deconditioning PSYCHIATRIC: Helpless affect Limitations: physical limitation Course Vital Signs 04/20/21 15:35 Temperature 97.4 F L Pulse Rate 96 Respiratory 23 Rate Blood Pressure 113/66 O2 Sat by Pulse 97 Oximetry Medical Decision Making - Lab Data Result diagrams: 04/20/21 16:06 04/20/21 16:06 Lab Results 04/20/21 04/20/21 04/20/21 Range/Units 16:06 16:06 16:06 WBC 13.2 H (3.8-10.6) k/uL RBC 4.03 (3.80-5.40) m/uL Hgb 12.9 (11.4-16.0) gm/dL Hct 38.6 (34.0-46.0) % MCV 95.7 (80.0-100.0) fL MCH 32.1 (25.0-35.0) pg MCHC 33.5 (31.0-37.0) g/dL RDW 16.7 H (11.5-15.5) % Plt Count 198 (150-450) k/uL MPV 7.5 Neutrophils % 65 % Lymphocytes % 27 % Monocytes % 4 % Eosinophils % 1 % Basophils % 1 % Neutrophils # 8.6 H (1.3-7.7) k/uL Lymphocytes # 3.6 (1.0-4.8) k/uL Monocytes # 0.5 (0-1.0) k/uL Eosinophils # 0.1 (0-0.7) k/uL Basophils # 0.2 (0-0.2) k/uL Anisocytosis Slight PT 10.2 (9.0-12.0) sec INR 0.9 (<1.2) APTT 21.9 L (22.0-30.0) sec Sodium 142 (137-145) mmol/L Potassium 3.8 (3.5-5.1) mmol/L Chloride 106 (98-107) mmol/L Carbon Dioxide 23 (22-30) mmol/L Anion Gap 13 mmol/L BUN 3 L (7-17) mg/dL Creatinine 0.48 L (0.52-1.04) mg/dL Est GFR (CKD-EPI)AfAm >90 (>60 ml/min/1.73 sqM) Est GFR (CKD-EPI)NonAf >90 (>60 ml/min/1.73 sqM) Glucose 101 H (74-99) mg/dL Calcium 8.7 (8.4-10.2) mg/dL Total Bilirubin 0.1 L (0.2-1.3) mg/dL AST 66 H (14-36) U/L ALT 41 H (4-34) U/L Alkaline Phosphatase 209 H (38-126) U/L Troponin I (0.000-0.034) ng/mL NT-Pro-B Natriuret Pep pg/mL Total Protein 6.3 (6.3-8.2) g/dL Albumin 3.6 (3.5-5.0) g/dL 04/20/21 04/20/21 Range/Units 16:06 16:06 WBC (3.8-10.6) k/uL RBC (3.80-5.40) m/uL Hgb (11.4-16.0) gm/dL Hct (34.0-46.0) % MCV (80.0-100.0) fL MCH (25.0-35.0) pg MCHC (31.0-37.0) g/dL RDW (11.5-15.5) % Plt Count (150-450) k/uL MPV Neutrophils % % Lymphocytes % % Monocytes % % Eosinophils % % Basophils % % Neutrophils # (1.3-7.7) k/uL Lymphocytes # (1.0-4.8) k/uL Monocytes # (0-1.0) k/uL Eosinophils # (0-0.7) k/uL Basophils # (0-0.2) k/uL Anisocytosis PT (9.0-12.0) sec INR (<1.2) APTT (22.0-30.0) sec Sodium (137-145) mmol/L Potassium (3.5-5.1) mmol/L Chloride (98-107) mmol/L Carbon Dioxide (22-30) mmol/L Anion Gap mmol/L BUN (7-17) mg/dL Creatinine (0.52-1.04) mg/dL Est GFR (CKD-EPI)AfAm (>60 ml/min/1.73 sqM) Est GFR (CKD-EPI)NonAf (>60 ml/min/1.73 sqM) Glucose (74-99) mg/dL Calcium (8.4-10.2) mg/dL Total Bilirubin (0.2-1.3) mg/dL AST (14-36) U/L ALT (4-34) U/L Alkaline Phosphatase (38-126) U/L Troponin I 0.026 (0.000-0.034) ng/mL NT-Pro-B Natriuret Pep 432 pg/mL Total Protein (6.3-8.2) g/dL Albumin (3.5-5.0) g/dL - EKG Data -: EKG Interpreted by [facility] EKG Comments: EKG was obtained due to complaint of shortness of breath, EKG was obtained at 1612, rate is 92 rhythm is sinus, normal axis, normal intervals, OH 122, QRS 80, QTC 437, no acute ST elevations, T-wave inversions are noted in V3 through V6 h owever these were present on previous EKG and are not new. There are no new acute changes Disposition Clinical Impression: Congestive heart failure, COPD (chronic obstructive pulmonary disease), Elevated troponin Disposition: ADMITTED IP TO THIS HOSP Condition: Stable Referrals: Miya Johnson MD [Primary Care Provider] - 1-2 days
[2021-04-20 16:40] LABS: Anisocytosis Slight; Basophils # (A) 0.2 k/uL (0-0.2); Basophils % (A) 1 %; Eosinophils # (A) 0.1 k/uL (0-0.7); Eosinophils % (A) 1 %; HCT 38.6 % (34.0-46.0); HGB 12.9 gm/dL (11.4-16.0); Lymphocytes # (A) 3.6 k/uL (1.0-4.8); Lymphocytes % (A) 27 %; MCH 32.1 pg (25.0-35.0); MCHC 33.5 g/dL (31.0-37.0); MCV 95.7 fL (80.0-100.0); Mean Platelet Volume 7.5; Monocytes # (A) 0.5 k/uL (0-1.0); Monocytes % (A) 4 %; Neutrophils # (A) 8.6 k/uL (1.3-7.7); Neutrophils % (A) 65 %; Platelet Count 198 k/uL (150-450); RBC 4.03 m/uL (3.80-5.40); RDW 16.7 % (11.5-15.5); WBC 13.2 k/uL (3.8-10.6)
[2021-04-20 16:50] LABS: ALT 41 U/L (4-34); AST 66 U/L (14-36); African American GFR (CKD) >90 (>60 ml/min/1.73 sqM); Albumin 3.6 g/dL (3.5-5.0); Alkaline Phosphatase 209 U/L (38-126); Anion Gap 13 mmol/L; Blood Urea Nitrogen 3 mg/dL (7-17); Calcium 8.7 mg/dL (8.4-10.2); Carbon Dioxide 23 mmol/L (22-30); Chloride 106 mmol/L (98-107); Glucose 101 mg/dL (74-99); Non-African American GFR(CKD) >90 (>60 ml/min/1.73 sqM); Potassium 3.8 mmol/L (3.5-5.1); Sodium 142 mmol/L (137-145); Total Bilirubin 0.1 mg/dL (0.2-1.3); Total Protein 6.3 g/dL (6.3-8.2)
[2021-04-20 16:56] LABS: INR 0.9 (<1.2); Prothrombin Time 10.2 sec (9.0-12.0)
[2021-04-20 17:14] LABS: Partial Thromboplastin Time 21.9 sec (22.0-30.0)
--- NOTE | 2021-04-20 17:37 | XR ---
EXAMINATION TYPE: XR chest 2V DATE OF EXAM: 04/20/2021 COMPARISON: 04/19/2021 HISTORY: Difficulty breathing TECHNIQUE: FINDINGS: There is no heart failure nor confluent pneumonic infiltrate. There is some coarsening of t he interstitial markings in the lower lung galvan. There are no hilar masses. Mediastinum is normal. Heart size is fairly normal. Bony thorax is intact. IMPRESSION: Slight increased markings. No pulmonary consolidation or heart failure. Inspiration decre ased compared to yesterday.
[2021-04-20] MEDS ORDERED: ALPRAZolam 0.5 MG TAB PO STA (21:20)
[2021-04-21] MEDS: HYDROcodone/APAP 5-325MG 1 EACH TAB PO PRN ×3 (05:18→23:58)
[2021-04-21] MEDS ORDERED: ASPIRIN 325 MG TAB PO SCH (09:00)
[2021-04-21] MEDS ORDERED: DICYCLOMINE 10 MG CAP PO PRN (09:15)
[2021-04-21] MEDS ORDERED: METOPROLOL TARTRATE 12.5 MG TAB PO SCH (09:15)
[2021-04-21] MEDS ORDERED: NON FORMULARY DRUG (Aspirin Ec 81 MG Tablet.Dr) PO SCH (09:15)
[2021-04-21] MEDS ORDERED: IPRATROPIUM-ALBUTEROL 3 ML NEB INHALATION PRN (09:15)
[2021-04-21] MEDS ORDERED: ALPRAZolam 0.25 MG TAB PO PRN (09:17)
--- NOTE | 2021-04-21 09:20 | P.CRDCN ---
History of Present Illness Consult date: 04/21/21 Chief complaint: Chest pain History of present illness: This is a very pleasant 61-year-old female patient with a past medical history significant for coronary artery disease based on heart catheterization in [address] Vidal and revealed chronic total occlusion of the RCA which fills by bridging collaterals as well as hypertension and dyslipidemia and COPD and history of stroke and status post left carotid stenting presented to the emergency room complaining of shortness of breath. The patient stated that she does have a visiting nurse. Visiting nurse checking on her today and she found her pressure to be low and because of that she send the patient to the hospital. The patient now describes chest discomfort about 3/10 in intensity is as a sharp kind of discomfort in the middle of the chest without any radiation a nd without any severe symptoms. The EKG showed sinus rhythm was mild ST changes inferiorly. The second set of troponin came in to be slightly elevated. She is slightly tachycardic and also slightly hypertensive at this point. 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 At this point will consider conservative medical approach for the patient. I am going to start the patient on aspirin as well as high intensity started as well as Toprol-XL and also oral nitrate. We will obtain an echocardiogram to assess for any change in ejection fraction with apical from 2019 revealed an EF between 50-55%. If the conservative medical approach will take care of her symptoms and the need for any further cardiac workup but if she continues to be symptomatic I would consider doing a heart catheterization on the patient again. Further recommendation to follow the echocardiogram Past Medical History Past Medical History: Asthma, Coronary Artery Disease (CAD), CVA/TIA, Liver Disease, Myocardial Infarction ([place]), Seizure Disorder Additional Past Medical History / Comment(s): DDD, CVA 06/2019, pt. states they have a blockage in their heart, NERVE DAMAGE GREGORY LEGS, ascites Last Myocardial Infarction Date:: aug 2018 History of Any Multi-Drug Resistant Organisms: None Reported Past Surgical History: Cholecystectomy, Heart Catheterization, Joint Replacement, Orthopedic Surgery Additional Past Surgical History / Comment(s): bartholin gland cyst removal, stent placed, multi paracentesis Past Anesthesia/Blood Transfusion Reactions: No Reported Reaction Past Psychological History: Anxiety, Depression Smoking Status: Current some day smoker Past Alcohol Use History: Heavy Past Drug Use History: Marijuana - Past Family History Mother Family Medical History: Cancer, Congestive Heart Failure (CHF), Coronary Artery Disease (CAD), Hyperlipidemia Additional Family Medical History / Comment(s): Mother at age 85 from lung cancer. Father Family Medical History: Cancer, COPD Additional Family Medical History / Comment(s): Father at age 63 from lung cancer. Brother(s) Additional Family Medical History / Comment(s): Patient has a total of 7 siblings. 5 are alive without any major medical problems she is aware of. 2 siblings have one from alcohol abuse and 1. Coronary artery disease. Daughter(s) Additional Family Medical History / Comment(s): Patient has one daughter with no major medical problems. Medications and Allergies Home Medications Medication Instructions Recorded Confirmed Type Aspirin EC [Ecotrin Low Dose] 81 mg PO DAILY 02/11/19 04/20/21 History Ergocalciferol (Vitamin D2) 1,250 mcg PO FR 10/15/20 04/20/21 History [Vitamin D2 (50,000 Iu)] Multivitamin [Multivitamins Adult 1 tab PO DAILY 11/20/20 04/20/21 History Gummies] Fluticasone Nasal [place] [Flonase 1 spray EA NOSTRIL DAILY 11/30/20 04/20/21 History Nasal [place]] Magnesium Oxide [Mag-Ox] 400 mg PO TID 30 Days #90 tab 12/20/20 04/20/21 Rx Pantoprazole [Protonix] 40 mg PO BID #30 02/21/21 04/20/21 Rx Citalopram Hydrobromide [CeleXA] 10 mg PO DAILY #30 tab 04/18/21 04/20/21 Rx Azithromycin [Zithromax] 500 mg PO DIRECTED 04/20/21 04/20/21 History Budesonide/Formoterol Fumarate 1 puff INHALATION DIRECTED 04/20/21 04/20/21 History [Symbicort 160-4.5 Mcg Inhaler] Dicyclomine [Bentyl] 10 mg PO DIRECTED PRN 04/20/21 04/20/21 History Folic Acid 1 mg PO DIRECTED 04/20/21 04/20/21 History Ipratropium-Albuterol Nebulize 3 ml INHALATION DIRECTED 04/20/21 04/20/21 History [Duoneb 0.5 mg-3 mg/3 ml Soln] Metoprolol Tartrate [Lopressor] 12.5 mg PO DIRECTED 04/20/21 04/20/21 History Thiamine [Vitamin B-1] 100 mg PO DIRECTED 04/20/21 04/20/21 History Allergies Allergy/AdvReac Type Severity Reaction Status Date / Time Influenza Virus Vaccines AdvReac Nausea & Verified 04/19/21 00:22 Vomiting morphine AdvReac Nausea & Verified 04/19/21 00:22 Vomiting Physical Exam Vitals: Vital Signs Temp Pulse Resp BP Pulse Ox 04/21/21 08:47 98 18 149/101 97 04/21/21 06:41 99 16 137/83 99 04/21/21 04:52 18 04/21/21 04:22 101 H 17 149/98 99 04/21/21 00:56 112 H 18 145/55 97 04/20/21 21:35 75 17 144/86 98 04/20/21 18:57 107 H 18 123/84 98 04/20/21 15:35 97.4 F L 96 23 113/66 97 Intake and Output 04/20/21 04/21/21 04/21/21 22:59 06:59 14:59 Other: Weight 53.977 kg - Constitutional General appearance: no acute distress - Respiratory Respiratory: bilateral: CTA - Cardiovascular Rhythm: regular Results 04/20/21 16:06 04/20/21 16:06 Cardiac Enzymes 04/20/21 04/20/21 04/20/21 Range/Units 16:06 16:06 19:00 AST 66 H (14-36) U/L Troponin I 0.026 0.034 (0.000-0.034) ng/mL 04/20/21 04/21/21 Range/Units 22:06 06:16 AST (14-36) U/L Troponin I 0.041 H* 0.033 (0.000-0.034) ng/mL Coagulation 04/20/21 Range/Units 16:06 PT 10.2 (9.0-12.0) sec APTT 21.9 L (22.0-30.0) sec CBC 04/20/21 Range/Units 16:06 WBC 13.2 H (3.8-10.6) k/uL RBC 4.03 (3.80-5.40) m/uL Hgb 12.9 (11.4-16.0) gm/dL Hct 38.6 (34.0-46.0) % Plt Count 198 (150-450) k/uL Comprehensive Metabolic Panel 04/20/21 Range/Units 16:06 Sodium 142 (137-145) mmol/L Potassium 3.8 (3.5-5.1) mmol/L Chloride 106 (98-107) mmol/L Carbon Dioxide 23 (22-30) mmol/L BUN 3 L (7-17) mg/dL Creatinine 0.48 L (0.52-1.04) mg/dL Glucose 101 H (74-99) mg/dL Calcium 8.7 (8.4-10.2) mg/dL AST 66 H (14-36) U/L ALT 41 H (4-34) U/L Alkaline Phosphatase 209 H (38-126) U/L Total Protein 6.3 (6.3-8.2) g/dL Albumin 3.6 (3.5-5.0) g/dL Current Medications Generic Name Dose Route Start Last Admin Trade Name Freq PRN Reason Stop Dose Admin Hydrocodone Bitart/Acetaminophen 1 each 04/21/21 04:55 04/21/21 05:18 Hydrocodone/Apap 5-325mg 1 Each Tab PO 1 each Q6HR PRN Administration Pain Aspirin 325 mg 04/21/21 09:00 Aspirin 325 Mg Tab PO DAILY MAGY Atorvastatin Calcium 80 mg 04/21/21 21:00 Atorvastatin 80 Mg Tab PO HS MAGY Isosorbide Mononitrate 30 mg 04/22/21 09:00 Isosorbide Mononitrate Er 30 Mg Tab.Er.24h PO DAILY MAGY Metoprolol Succinate 50 mg 04/22/21 09:00 Metoprolol Succinate (Er) 50 Mg Tab.Er.24h PO DAILY MAGY Intake and Output 04/20/21 04/21/21 04/21/21 22:59 06:59 14:59 Other: Weight 53.977 kg 04/20/21 16:06 04/20/21 16:06 Assessment and Plan Assessment: Assessment #1 atypical chest discomfort which has improved #2 signs of myocardial injury without any evidence of ischemia at this point #3 history of stroke #4 carotid disease #5 history of smoking #6 multiple comorbid conditions Plan #1 follow-up with the serial cardiac enzymes #2 consider medical treatment for the mildly abnormal troponin #3 further recommendation to follow the third set of troponin as well as echo #4 consider aspirin in high intensity started on Toprol-XL and oral nitrate #5 follow-up with the patient
[2021-04-21] MEDS ORDERED: ISOSORBIDE MONONITRATE ER 30 MG TAB.ER.24H PO STA (10:18)
[2021-04-21] MEDS ORDERED: METOPROLOL SUCCINATE (ER) 50 MG TAB.ER.24H PO STA (10:18)
[2021-04-21] MEDS: THIAMINE 100 MG TAB PO SCH (10:19)
[2021-04-21] MEDS: FOLIC ACID 1 MG TAB PO SCH (10:19)
[2021-04-21] MEDS: MULTIVITAMINS, THERA 1 EACH TAB PO SCH (10:19)
[2021-04-21] MEDS: CITALOPRAM HYDROBROMIDE 10 MG TAB PO SCH (10:19)
[2021-04-21] MEDS: PANTOPRAZOLE 40 MG TABLET PO SCH ×2 (10:19→21:19)
[2021-04-21 10:20] LABS: Chol/HDL Ratio 3.58; LDL Cholesterol,Calculated 157.4 mg/dL (0.0-131.0); VLDL Calculation 33.6 mg/dL (5.00-40.00)
[2021-04-21] MEDS: MAGNESIUM OXIDE 400 MG TAB PO SCH ×3 (10:41→21:29)
--- NOTE | 2021-04-21 11:40 | ECHOF ---
Referral Reason:CP MEASUREMENTS -------- HEIGHT: 157.5 cm WEIGHT: 54.0 kg BP: 149/101 IVSd: 1.5 cm (0.6 - 1.1) LVIDd: 2.7 cm (3.9 - 5.3) LVPWd: 1.2 cm (0.6 - 1.1) IVSs: 1.6 cm LVIDs: 2.3 cm LVPWs: 1.6 cm LAESV Index (A-L): 16.25 ml/m Ao Diam: 2.8 cm (2.0 - 3.7) AV Cusp: 1.7 cm (1.5 - 2.6) LA Diam: 2.3 cm (2.7 - 3.8) MV EXCURSION: 15.618 mm (> 18.000) MV EF SLOPE: 180 mm/s (70 - 150) EPSS: 1.1 cm MV E Rodrigo: 0.78 m/s MV DecT: 148 ms MV A Rodrigo: 0.91 m/s MV E/A Ratio: 0.86 RAP: 5.00 mmHg RVSP: 16.30 mmHg FINDINGS -------- This was a technically difficult study with suboptimal views. The left ventricular size is normal. There is mild concentric left ventricular hypertrophy. Overa ll left ventricular systolic function is normal with, an EF between 55 - 60 %. Normal LAP. Grade 1 Diastolic Dysfunction. The right ventricle is normal in size. The left atrial size is normal. Normal LA size by volume 22+/-6 ml/m2. The right atrial size is normal. xx ml of Lumason was utilized for enhancement of images. The aortic valve is trileaflet and appears structurally normal. The mitral valve is normal. There is trace mitral regurgitation. The tricuspid valve appears structurally normal. Mild tricuspid regurgitation present. Right vent ricular systolic pressure is normal at < 35 mmHg. There is no pulmonic regurgitation present. The aortic root size is normal. Normal inferior vena cava with normal inspiratory collapse consistent with estimated right atrial pre ssure of 5 mmHg. There is no pericardial effusion. CONCLUSIONS -------- 1. The left ventricular size is normal. 2. There is mild concentric left ventricular hypertrophy. 3. Overall left ventricular systolic function is normal with, an EF between 55 - 60 %. 4. Normal LAP. Grade 1 Diastolic Dysfunction. 5. There is trace mitral regurgitation. 6. Mild tricuspid regurgitation present. 7. There is no pericardial effusion. LEAD QA ANALYST: Susan Bah RDCS
[2021-04-21 11:58] LABS: ALT 36 U/L (4-34); AST 47 U/L (14-36); African American GFR (CKD) >90 (>60 ml/min/1.73 sqM); Albumin 3.7 g/dL (3.5-5.0); Albumin/Globulin Ratio 1.4; Alkaline Phosphatase 253 U/L (38-126); Anion Gap 7 mmol/L; Blood Urea Nitrogen 6 mg/dL (7-17); Calcium 8.8 mg/dL (8.4-10.2); Carbon Dioxide 32 mmol/L (22-30); Chloride 97 mmol/L (98-107); Globulin 2.6 g/dL; Glucose 125 mg/dL (74-99); Non-African American GFR(CKD) >90 (>60 ml/min/1.73 sqM); Potassium 3.6 mmol/L (3.5-5.1); Sodium 136 mmol/L (137-145); Total Bilirubin 0.8 mg/dL (0.2-1.3); Total Protein 6.3 g/dL (6.3-8.2)
[2021-04-21] MEDS: FLUTICASONE 50MCG/SPRAY NASAL 16GM EA NOSTRIL SCH (12:48)
[2021-04-21] MEDS: SYMBICORT 160-4.5 MCG INHALER INHALATION SCH (16:51)
--- NOTE | 2021-04-21 19:25 | P.HPIM ---
History of Present Illness H&P Date: 04/21/21 Chief Complaint: Chest Pain Patient is a 61-year-old female with a known history of coronary artery disease, history of CVA/TIA with right-sided weakness/speech issues, history of left carotid stent placement, COPD, hypertension, history of ME, EtOH abuse/alcoholic liver cirrhosis/ascites with paracentesis, chronic low back pain and ongoing smoking was brought to the hospital due to complaints of shortness of breath. Patient states that she was seen by her visiting nurse and found her blood pressure to be on the lower side and was also having generalized weakness.. EMS was called and patient was brought to the hospital. Patient was also having chest discomfort, sharp midsternal to sternal without any radiation. No nausea vomiting or diaphoresis.. No complaints of fever or chills. No cough or sputum production. Chest x-ray showed slight increase in markings. No pulmonary consolidation or heart failure. Inspiration decreased compared to yesterday. EKG showed normal sinus rhythm. Laboratory showed WC 13.2 hemoglobin 12.9 and platelets 198, BUN 3 and crea tinine 0.48, AST 66 ALT 41 alk phos 219 Troponin 0 0.026, 0.034, 0.041 and 0.033 LDL is 157 Coronavirus PCR not detected. Review of Systems Constitutional: Patient denies any fever or chills . No generalized weakness or weight loss. Abdomen: Patient denied nausea vomiting and diarrhea and abdominal pain. Cardiovascular: Patient denies any chest pain or short of breath no palpitations. Respiratory: patient denied any cough or sputum production. No shortness of suzanne ath Neurologic: Patient denied any numbness or tingling headache. Musculoskeletal: Patient denies any complaints of joint swelling or deformity. Skin: Negative Psychiatric: Negative Endocrine: No heat or cold intolerance. No recent weight gain. Genitourinary: No dysuria or hematuria. All other 14 point ROS negative except the above Past Medical History Past Medical History: Asthma, Coronary Artery Disease (CAD), COPD, CVA/TIA, Hypertension, Liver Disease, Myocardial Infarction ([place]), Seizure Disorder, Vascular Disorder Additional Past Medical History / Comment(s): Pt recently admitted to [facility] on 04/16/21 acute exacerbation COPD/tracheobronchitis. 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 Last Myocardial Infarction Date:: aug 2018 History of Any Multi-Drug Resistant Organisms: None Reported Past Surgical History: Cholecystectomy, Heart Catheterization, Orthopedic Surgery Additional Past Surgical History / Comment(s): L caratid stent, bilateral knee surgeries for tendon repair, bartholian cyst removed bilateral wrists Past Anesthesia/Blood Transfusion Reactions: Motion Sickness Additional Past Anesthesia/Blood Transfusion Reaction / Comment(s): Pt has received blood without reaction. Smoking Status: Light tobacco smoker - Past Family History Mother Family Medical History: Cancer, Congestive Heart Failure (CHF), Coronary Artery Disease (CAD), Hyperlipidemia Additional Family Medical History / Comment(s): Mother at age 85 from lung cancer. Father Family Medical History: Cancer, COPD Additional Family Medical History / Comment(s): Father at age 63 from lung cancer. Brother(s) Additional Family Medical History / Comment(s): Patient has a total of 7 siblings. 5 are alive without any major medical problems she is aware of. 2 siblings have one from alcohol abuse and 1. Coronary artery disease. Daughter(s) Additional Family Medical History / Comment(s): Patient has one daughter with no major medical problems. Medications and Allergies Home Medications Medication Instructions Recorded Confirmed Type Aspirin EC [Ecotrin Low Dose] 81 mg PO DAILY 02/11/19 04/20/21 History Ergocalciferol (Vitamin D2) 1,250 mcg PO FR 10/15/20 04/20/21 History [Vitamin D2 (50,000 Iu)] Multivitamin [Multivitamins Adult 1 tab PO DAILY 11/20/20 04/20/21 History Gummies] Fluticasone Nasal Parker [Flonase 1 spray EA NOSTRIL DAILY 11/30/20 04/20/21 History Nasal Parker] Magnesium Oxide [Mag-Ox] 400 mg PO TID 30 Days #90 tab 12/20/20 04/20/21 Rx Pantoprazole [Protonix] 40 mg PO BID #30 02/21/21 04/20/21 Rx Citalopram Hydrobromide [CeleXA] 10 mg PO DAILY #30 tab 04/18/21 04/20/21 Rx Azithromycin [Zithromax] 500 mg PO DIRECTED 04/20/21 04/20/21 History Budesonide/Formoterol Fumarate 1 puff INHALATION DIRECTED 04/20/21 04/20/21 History [Symbicort 160-4.5 Mcg Inhaler] Dicyclomine [Bentyl] 10 mg PO DIRECTED PRN 04/20/21 04/20/21 History Folic Acid 1 mg PO DIRECTED 04/20/21 04/20/21 History Ipratropium-Albuterol Nebulize 3 ml INHALATION DIRECTED 04/20/21 04/20/21 History [Duoneb 0.5 mg-3 mg/3 ml Soln] Metoprolol Tartrate [Lopressor] 12.5 mg PO DIRECTED 04/20/21 04/20/21 History Thiamine [Vitamin B-1] 100 mg PO DIRECTED 04/20/21 04/20/21 History Allergies Allergy/AdvReac Type Severity Reaction Status Date / Time Influenza Virus Vaccines AdvReac Nausea & Verified 04/19/21 00:22 Vomiting morphine AdvReac Nausea & Verified 04/19/21 00:22 Vomiting Physical Exam Vitals: Vital Signs Temp Pulse Resp BP Pulse Ox 04/21/21 10:15 97.8 F 102 H 18 148/100 98 04/21/21 08:47 98 18 149/101 97 04/21/21 06:41 99 16 137/83 99 04/21/21 04:52 18 04/21/21 04:22 101 H 17 149/98 99 04/21/21 00:56 112 H 18 145/55 97 04/20/21 21:35 75 17 144/86 98 04/20/21 18:57 107 H 18 123/84 98 04/20/21 15:35 97.4 F L 96 23 113/66 97 Intake and Output 04/20/21 04/21/21 04/21/21 22:59 06:59 14:59 Other: Weight 53.977 kg 53.977 kg PHYSICAL EXAMINATION: Patient is lying in the bed comfortably, no acute distress, awake alert and oriented.. HEENT: Normocephalic. Neck is supple. Pupils reactive. Nostrils clear. Oral cavity is moist. Ears reveal no drainage. Neck reveals no JVD, carotid bruits, or thyromegaly. CHEST EXAMINATION: Trachea is central. Symmetrical expansion. Lung galvan clear to auscultation and percussion. CARDIAC: Normal S1, S2 with no gallops. No murmurs ABDOMEN: Soft. Bowel sounds normal. No organomegaly. No abdominal bruits. Extremities: reveal no edema. No clubbing or cyanosis Neurologically awake, alert, oriented x3 with well-coordinated movements. Minimal right-sided weakness. Skin: No rash or skin lesions. Psychiatric: Coperative. Nonsuicidal Musculoskeletal: No joint swelling or deformity. Normal range of motion. Results CBC & Chem 7: 04/20/21 16:06 04/21/21 11:10 Labs: Abnormal Lab Results - Last 24 Hours (Table) 04/20/21 04/20/21 04/20/21 Range/Units 16:06 16:06 16:06 WBC 13.2 H (3.8-10.6) k/uL RDW 16.7 H (11.5-15.5) % Neutrophils # 8.6 H (1.3-7.7) k/uL APTT 21.9 L (22.0-30.0) sec BUN 3 L (7-17) mg/dL Creatinine 0.48 L (0.52-1.04) mg/dL Glucose 101 H (74-99) mg/dL Total Bilirubin 0.1 L (0.2-1.3) mg/dL AST 66 H (14-36) U/L ALT 41 H (4-34) U/L Alkaline Phosphatase 209 H (38-126) U/L Troponin I (0.000-0.034) ng/mL Triglycerides (0.0-149.0) mg/dL Cholesterol (0-200) mg/dL LDL Cholesterol, Calc (0.0-131.0) mg/dL HDL Cholesterol (40.0-60.0) mg/dL 04/20/21 04/21/21 Range/Units 22:06 06:16 WBC (3.8-10.6) k/uL RDW (11.5-15.5) % Neutrophils # (1.3-7.7) k/uL APTT (22.0-30.0) sec BUN (7-17) mg/dL Creatinine (0.52-1.04) mg/dL Glucose (74-99) mg/dL Total Bilirubin (0.2-1.3) mg/dL AST (14-36) U/L ALT (4-34) U/L Alkaline Phosphatase (38-126) U/L Troponin I 0.041 H* (0.000-0.034) ng/mL Triglycerides 168.0 H (0.0-149.0) mg/dL Cholesterol 265 H (0-200) mg/dL LDL Cholesterol, Calc 157.4 H (0.0-131.0) mg/dL HDL Cholesterol 74.0 H (40.0-60.0) mg/dL Thrombosis Risk Factor Assmnt - DVT/VTE Prophylaxis DVT/VTE Prophylaxis: Pharmacologic Prophylaxis ordered - Choose All That Apply Any of the Below Risk Factors Present?: Yes Each Factor Represents 1 point: Age 41-60 years Other Risk Factors: No Other congenital or acquired thrombophilia - If yes, enter type in comment: No Thrombosis Risk Factor Assessment Total Risk Factor Score: 1 Thrombosis Risk Factor Assessment Level: Low Risk Assessment and Plan Assessment: Atypical chest pain. Mild elevated troponin level unlikely acute ME. Transaminitis possible alcoholic hepatitis. COPD not in exacerbation History of CVA with right-sided weakness and speech difficulty. History of left carotid artery stent placement Ongoing smoking Hypertension History of EtOH abuse Liver cirrhosis with history of paracentesis. DVT prophylaxis with heparin subcu. Plan: Patient will be continued on telemetry monitoring. Serial EKG and troponin x3. Patient currently denies any complaints of chest pain. Was started on aspirin, statins, Imdur, metoprolol and cardiology is on board. 2D echo that was ordered. Continue breathing treatments and Symbicort. Continue the home medications and further recommendations based on clinical course. Time with Patient: Greater than 30
[2021-04-21] MEDS ORDERED: ATORVASTATIN 80 MG TAB PO SCH (21:00)
[2021-04-21] MEDS: HEPARIN SODIUM,PORCINE/PF 5,000 UNIT/0.5 ML SYRINGE SQ SCH (21:19)
[2021-04-22] MEDS: SYMBICORT 160-4.5 MCG INHALER INHALATION SCH (07:34)
[2021-04-22 07:46] VITALS: BP 116/69; PULSE 97; RESP 18; TEMP 98.3
[2021-04-22] MEDS ORDERED: METOPROLOL SUCCINATE (ER) 25 MG TAB.ER.24H PO SCH (09:00)
[2021-04-22] MEDS ORDERED: METOPROLOL SUCCINATE (ER) 50 MG TAB.ER.24H PO SCH (09:00)
[2021-04-22] MEDS ORDERED: ISOSORBIDE MONONITRATE ER 30 MG TAB.ER.24H PO SCH (09:00)
[2021-04-22] MEDS ORDERED: ASPIRIN 81 MG PO SCH (09:00)
[2021-04-22] MEDS ORDERED: ERGOCALCIFEROL 1,250 MCG (50,000 IU) CAPSULE PO SCH (09:00)
[2021-04-22 09:15] LABS: Basophils # (A) 0.11 X 10*3/uL (0.00-0.10); Eosinophils # (A) 0.26 X 10*3/uL (0.04-0.35); Eosinophils % (A) 2.4 %; HCT 39.9 % (37.2-46.3); HGB 12.8 g/dL (12.0-15.0); Lymphocytes # (A) 3.21 X 10*3/uL (0.90-5.00); Lymphocytes % (A) 29.6 %; MCH 31.2 pg (27.0-32.0); MCHC 32.1 g/dL (32.0-37.0); MCV 97.3 fL (80.0-97.0); Mean Platelet Volume 11.4 fL (9.5-12.2); Monocytes # (A) 0.53 X 10*3/uL (0.20-1.00); Monocytes % (A) 4.9 %; Neutrophils # (A) 6.68 X 10*3/uL (1.80-7.70); Neutrophils % (A) 61.6 %; Platelet Count 120 X 10*3/uL (140-440); RDW 16.1 % (11.5-14.5); WBC 10.84 X 10*3/uL (4.50-10.00)
[2021-04-22 09:45] LABS: African American GFR (CKD) 121.9 (60.0-200.0); Albumin 3.7 g/dL (3.80-4.90); Albumin/Globulin Ratio 1.68 (1.60-3.17); Calcium 9.9 mg/dL (8.7-10.3); Globulin 2.2 g/dL (1.6-3.3); Non-African American GFR(CKD) 105.2 (60.0-200.0); Total Bilirubin 0.7 mg/dL (0.2-1.2); Total Protein 5.9 g/dL (6.2-8.2)
[2021-04-22] MEDS: FLUTICASONE 50MCG/SPRAY NASAL 16GM EA NOSTRIL SCH (09:50)
[2021-04-22] MEDS: THIAMINE 100 MG TAB PO SCH (09:50)
[2021-04-22] MEDS: CITALOPRAM HYDROBROMIDE 10 MG TAB PO SCH (09:50)
[2021-04-22] MEDS: PANTOPRAZOLE 40 MG TABLET PO SCH (09:50)
[2021-04-22] MEDS: FOLIC ACID 1 MG TAB PO SCH (09:51)
[2021-04-22] MEDS: MULTIVITAMINS, THERA 1 EACH TAB PO SCH (09:51)
[2021-04-22] MEDS: MAGNESIUM OXIDE 400 MG TAB PO SCH (09:51)
[2021-04-22] MEDS: HEPARIN SODIUM,PORCINE/PF 5,000 UNIT/0.5 ML SYRINGE SQ SCH (09:53)
--- NOTE | 2021-04-22 11:44 | P.PN ---
Progress Note - Text Progress Note Date: 04/22/21 This is a 61-year-old female patient who is known to Dr. Vidal in the office with a past medical history significant for coronary artery disease and known chronic total occlusion of the RCA based on heart catheterization in 2019 as well as history of COPD and hypertension and dyslipidemia was admitted to the hospital with a chest discomfort and mildly abnormal troponin. We advise maximize medical treatment and the patient yesterday was started on aspirin along with high intensity statin along with anti-ischemic medications. She was seen this morning [place] she is chest pain-free. She would like to go home. She underwent an echocardiogram and that revealed normal left ventricle systolic function without significant valvular abnormalities. From a cardiovascular standpoint of view, the patient can be discharged home
--- NOTE | 2021-04-25 14:38 | P.DS ---
Providers Date of admission: 04/20/21 18:23 Expected date of discharge: 04/22/21 Attending physician: Mark Cardoza Consults: 04/20/21 18:23 Consult Physician Urgent Consulting Provider: Aren Alexander Consult Reason/Comments: SOB, elevated trop Do you want consulting provider notified?: Yes, Notify in am Primary care physician: Miya Johnson Hospital Course: Final diagnosis Atypical chest pain. Mild elevated troponin level unlikely acute SC. Transaminitis possible alcoholic hepatitis. COPD not in exacerbation History of CVA with right-sided weakness and speech difficulty. History of left carotid artery stent placement Ongoing smoking Hypertension History of EtOH abuse Liver cirrhosis with history of paracentesis. DVT prophylaxis Discharge disposition Patient is being discharged in a stable condition with guarded prognosis to home. Patient will follow-up with Dr. Johnson upon discharge. Patient will continue with a short course of oral antibiotics in the form of Zithromax for the next few days to complete the course. Patient will also all up with cardiology Dr. Howard in the outpatient setting. Total time taken is greater than 35 minutes. Hospital course Patient is a 61-year-old female with a known history of coronary artery disease, history of CVA/TIA with right-sided weakness/speech issues, history of left carotid stent placement, COPD, hypertension, history of SC, EtOH abuse/alcoholic liver cirrhosis/ascites with paracentesis, chronic low back pain and ongoing smoking was brought to the hospital due to complaints of shortness of breath. Patient states that she was seen by her visiting nurse and found her blood pressure to be on the lower side and was also having generalized weakness.. EMS was called and patient was brought to the hospital. Patient was also having chest discomfort, sharp midsternal to sternal without any radiation. No nausea vomiting or diaphoresis.. No complaints of fever or chills. No cough or sputum production. Chest x-ray showed slight increase in markings. No pulmonary consolidation or heart failure. Inspiration decreased compared to yesterday. EKG showed normal sinus rhythm. Laboratory showed WC 13.2 hemoglobin 12.9 and platelets 198, BUN 3 and creatinine 0.48, AST 66 ALT 41 alk phos 219 Troponin 0 0.026, 0.034, 0.041 and 0.033 LDL is 157 Coronavirus PCR not detected. 04/22/2021 Patient is seen and evaluated and follow-up with no acute overnight issues. Requesting to be discharged. Patient was seen and evaluated by cardiology recommending continuing with current medications. Patient had 2-D echo done showing overall left ventricular systolic function is normal with an EF of 55- 60% with some mild concentric left ventricular hypertrophy and a normal [employer] with grade 1 diastolic dysfunction with some trace of mitral regurgitation and tricuspid present. Patient will follow-up with Dr. Howard cardiology outpatient 1 week. Patient again instructed to discontinue smoking and continue to avoid alcohol intake. Currently no reports of chest pain, shortness of breath, or palpitations. Patient is afebrile. No reports of nausea or vomiting and patient is tolerating diet. Patient will be discharged to home. Guarded prognosis. On exam vital signs are stable. Cardio S1, S2 are muffled. Respiratory shows diminished breath sounds at the bases with a few scattered rhonchi noted. Abdomen is soft and nontender. Nervous system shows no focal deficits. Please refer to medication reconciliation sheet for a list of medications. Patient Condition at Discharge: Stable Plan - Discharge Summary Discharge Rx Participant: No New Discharge Prescriptions: New Atorvastatin [Lipitor] 80 mg PO HS 30 Days #30 tab Isosorbide Mononitrate ER [Imdur] 30 mg PO DAILY 30 Days #30 tab.er.24h Metoprolol Succinate (ER) [Toprol XL] 25 mg PO DAILY 30 Days #30 tab.er.24h Continue Aspirin EC [Ecotrin Low Dose] 81 mg PO DAILY Ergocalciferol (Vitamin D2) [Vitamin D2 (50,000 Iu)] 1,250 mcg PO FR Multivitamin [Multivitamins Adult Gummies] 1 tab PO DAILY Fluticasone Nasal [place] [Flonase Nasal [place]] 1 spray EA NOSTRIL DAILY Magnesium Oxide [Mag-Ox] 400 mg PO TID 30 Days #90 tab Pantoprazole [Protonix] 40 mg PO BID #30 Citalopram Hydrobromide [CeleXA] 10 mg PO DAILY #30 tab Azithromycin [Zithromax] 500 mg PO DIRECTED Budesonide/Formoterol Fumarate [Symbicort 160-4.5 Mcg Inhaler] 1 puff INHALATION DIRECTED Dicyclomine [Bentyl] 10 mg PO DIRECTED PRN PRN Reason: Dyspepsia Thiamine [Vitamin B-1] 100 mg PO DIRECTED Folic Acid 1 mg PO DIRECTED Ipratropium-Albuterol Nebulize [Duoneb 0.5 mg-3 mg/3 ml Soln] 3 ml INHALATION DIRECTED Discontinued Metoprolol Tartrate [Lopressor] 12.5 mg PO DIRECTED Discharge Medication List Aspirin EC [Ecotrin Low Dose] 81 mg PO DAILY 02/11/19 [History] Ergocalciferol (Vitamin D2) [Vitamin D2 (50,000 Iu)] 1,250 mcg PO FR 10/15/20 [History] Multivitamin [Multivitamins Adult Gummies] 1 tab PO DAILY 11/20/20 [History] Fluticasone Nasal [place] [Flonase Nasal [place]] 1 spray EA NOSTRIL DAILY 11/30/20 [History] Magnesium Oxide [Mag-Ox] 400 mg PO TID 30 Days #90 tab 12/20/20 [Rx] Pantoprazole [Protonix] 40 mg PO BID #30 02/21/21 [Rx] Citalopram Hydrobromide [CeleXA] 10 mg PO DAILY #30 tab 04/18/21 [Rx] Azithromycin [Zithromax] 500 mg PO DIRECTED 04/20/21 [History] Budesonide/Formoterol Fumarate [Symbicort 160-4.5 Mcg Inhaler] 1 puff INHALATION DIRECTED 04/20/21 [History] Dicyclomine [Bentyl] 10 mg PO DIRECTED PRN 04/20/21 [History] Folic Acid 1 mg PO DIRECTED 04/20/21 [History] Ipratropium-Albuterol Nebulize [Duoneb 0.5 mg-3 mg/3 ml Soln] 3 ml INHALATION DIRECTED 04/20/21 [History] Thiamine [Vitamin B-1] 100 mg PO DIRECTED 04/20/21 [History] Atorvastatin [Lipitor] 80 mg PO HS 30 Days #30 tab 04/22/21 [Rx] Isosorbide Mononitrate ER [Imdur] 30 mg PO DAILY 30 Days #30 tab.er.24h 04/22/21 [Rx] Metoprolol Succinate (ER) [Toprol XL] 25 mg PO DAILY 30 Days #30 tab.er.24h 04/22/21 [Rx] Follow up Appointment(s)/Referral(s): Miya Johnson MD [Primary Care Provider] - 1-2 days (States wants to make her own appointment and coordinate with daughter) Unruly Howard MD [STAFF PHYSICIAN] - 1 Week (States wants to make her own appointment and coordinate with daughter) Ambulatory/Diagnostic Orders: Complete Blood Count w/diff [LAB.AMB] Location: None Selected Patient Instructions/Handouts: Chest Pain (DC) Activity/Diet/Wound Care/Special Instructions: activity limited until follow up continue heart healthy diet Medications as prescribed Follow-up outpatient with cardiology Avoid alcohol intake Discharge Disposition: HOME WITH HOME HEALTH SERVICES
== END 2021-04-22 13:15 | disposition home health service (06) ==
LOC: EC 15:33 → 6NMEDSUR 18:23
PROVIDERS: ADMIT Hospitalist; ATTEND Hospitalist
DX: R07.89 Other chest pain (principal); R74.8 Abnormal levels of other serum enzymes; R74.01 Elevation of levels of liver transaminase levels; J44.9 Chronic obstructive pulmonary disease, unspecified; I69.351 Hemiplegia and hemiparesis following cerebral infarction affecting right dominant side; Z20.822 Contact with and (suspected) exposure to COVID-19; I25.2 Old myocardial infarction; F17.200 Nicotine dependence, unspecified, uncomplicated; I25.10 Atherosclerotic heart disease of native coronary artery without angina pectoris; I10 Essential (primary) hypertension; R06.00 Dyspnea, unspecified; I25.82 Chronic total occlusion of coronary artery; K70.30 Alcoholic cirrhosis of liver without ascites; F10.10 Alcohol abuse, uncomplicated; E78.5 Hyperlipidemia, unspecified; R00.0 Tachycardia, unspecified; D64.9 Anemia, unspecified; G40.909 Epilepsy, unspecified, not intractable, without status epilepticus; M51.36 Other intervertebral disc degeneration, lumbar region; G89.29 Other chronic pain; M54.5 Low back pain; F41.9 Anxiety disorder, unspecified; F32.9 Major depressive disorder, single episode, unspecified; K76.9 Liver disease, unspecified; K58.9 Irritable bowel syndrome, unspecified; Z79.82 Long term (current) use of aspirin; Z79.51 Long term (current) use of inhaled steroids; Z79.899 Other long term (current) drug therapy; Z88.5 Allergy status to narcotic agent; Z88.7 Allergy status to serum and vaccine; Z95.5 Presence of coronary angioplasty implant and graft; Z91.81 History of falling; Z90.49 Acquired absence of other specified parts of digestive tract; Z82.49 Family history of ischemic heart disease and other diseases of the circulatory system; Z82.5 Family history of asthma and other chronic lower respiratory diseases; Z80.1 Family history of malignant neoplasm of trachea, bronchus and lung; Z81.1 Family history of alcohol abuse and dependence
CPT/HCPCS: 96372 ×2; 93005 ×2; 99285; 36415; 94640 ×2; 94760 ×2; 83880; 80061; 80053 ×3; 84484 ×2; 85025 ×2; 85610; 85730; 87635; 71046; G0378 ×3; C8929; Q9950; J1644 ×2; 93306

== ENCOUNTER 2021-04-23 09:15 | Emergency (ER) | payer OTHER ==
[2021-04-23] MEDS ORDERED: LORazepam 2 MG/ML INJ IV STA (09:24)
[2021-04-23] MEDS ORDERED: SODIUM CHLORIDE 0.9% 1,000 ML IV ONE (09:24)
--- NOTE | 2021-04-23 09:27 | ED ---
General Adult HPI - General Chief complaint: Shortness of Breath Stated complaint: MARY ALICE Time Seen by Provider: 04/23/21 09:15 Source: patient, EMS, RN notes reviewed, old records reviewed Mode of arrival: EMS Limitations: no limitations - History of Present Illness Initial comments: This is a 61-year-old female who presents emergency with past medical history significant for COPD and she continues to smoke, patient also has heart disease but she's not sure what. Patient was recently in the hospital and was released yesterday. Patient states she still feels like she can't breathe though she is actually 95% on room air. Patient states she does have a history of anxiety. Patient denies chest pain or palpitations. Patient denies any fever chills or cough. Patient states she was sent home on an antibiotic however she did not get it filled. Patient denies any abdominal pain patient denies nausea vomiting diarrhea. Patient denies any swelling to the legs or calf tenderness. - Related Data Home Medications Medication Instructions Recorded Confirmed Aspirin EC [Ecotrin Low Dose] 81 mg PO DAILY 02/11/19 04/23/21 Ergocalciferol (Vitamin D2) 1,250 mcg PO FR 10/15/20 04/23/21 [Vitamin D2 (50,000 Iu)] Multivitamin [Multivitamins Adult 1 tab PO DAILY 11/20/20 04/23/21 Gummies] Fluticasone Nasal Radiant [Flonase 1 spray EA NOSTRIL DAILY 11/30/20 04/23/21 Nasal Radiant] Azithromycin [Zithromax] 500 mg PO DIRECTED 04/20/21 04/23/21 Budesonide/Formoterol Fumarate 1 puff INHALATION DIRECTED 04/20/21 04/23/21 [Symbicort 160-4.5 Mcg Inhaler] Dicyclomine [Bentyl] 10 mg PO DIRECTED PRN 04/20/21 04/23/21 Folic Acid 1 mg PO DIRECTED 04/20/21 04/23/21 Ipratropium-Albuterol Nebulize 3 ml INHALATION DIRECTED 04/20/21 04/23/21 [Duoneb 0.5 mg-3 mg/3 ml Soln] Thiamine [Vitamin B-1] 100 mg PO DIRECTED 04/20/21 04/23/21 Previous Rx's Medication Instructions Recorded Magnesium Oxide [Mag-Ox] 400 mg PO TID 30 Days #90 tab 12/20/20 Pantoprazole [Protonix] 40 mg PO BID #30 02/21/21 Citalopram Hydrobromide [CeleXA] 10 mg PO DAILY #30 tab 04/18/21 Atorvastatin [Lipitor] 80 mg PO HS 30 Days #30 tab 04/22/21 Isosorbide Mononitrate ER [Imdur] 30 mg PO DAILY 30 Days #30 04/22/21 tab.er.24h Metoprolol Succinate (ER) [Toprol 25 mg PO DAILY 30 Days #30 04/22/21 XL] tab.er.24h Allergies Allergy/AdvReac Type Severity Reaction Status Date / Time Influenza Virus Vaccines AdvReac Nausea & Verified 04/23/21 10:55 Vomiting morphine AdvReac Nausea & Verified 04/23/21 10:55 Vomiting Review of Systems ROS Statement: Those systems with pertinent positive or pertinent negative responses have been documented in the HPI. ROS Other: All systems not noted in ROS Statement are negative. Past Medical History Past Medical History: Asthma, Coronary Artery Disease (CAD), COPD, CVA/TIA, Hypertension, Liver Disease, Myocardial Infarction ([place]), Seizure Disorder, Vascu lar Disorder Additional Past Medical History / Comment(s): Pt recently admitted to [facility] on 04/16/21 acute exacerbation COPD/tracheobronchitis. 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 Last Myocardial Infarction Date:: aug 2018 History of Any Multi-Drug Resistant Organisms: None Reported Past Surgical History: Cholecystectomy, Heart Catheterization, Orthopedic Surgery Additional Past Surgical History / Comment(s): L caratid stent, bilateral knee surgeries for tendon repair, bartholian cyst removed bilateral wrists Past Anesthesia/Blood Transfusion Reactions: Motion Sickness Additional Past Anesthesia/Blood Transfusion Reaction / Comment(s): Pt has received blood without reaction. Past Psychological History: Anxiety, Depression Smoking Status: Light tobacco smoker - Past Family History Mother Family Medical History: Cancer, Congestive Heart Failure (CHF), Coronary Artery Disease (CAD), Hyperlipidemia Additional Family Medical History / Comment(s): Mother at age 85 from lung cancer. Father Family Medical History: Cancer, COPD Additional Family Medical History / Comment(s): Father at age 63 from lung cancer. Brother(s) Additional Family Medical History / Comment(s): Patient has a total of 7 siblings. 5 are alive without any major medical problems she is aware of. 2 siblings have one from alcohol abuse and 1. Coronary artery disease. Daughter(s) Additional Family Medical History / Comment(s): Patient has one daughter with no major medical problems. General Exam - General Exam Comments Initial Comments: GENERAL: Patient is well-developed and well-nourished. Patient is nontoxic and well- hydrated and is in no acute distress. ENT: Neck is soft and supple. No significant lymphadenopathy is noted. Oropharynx is clear. Moist mucous membranes. Neck has full range of motion without eliciting any pain. EYES: The sclera were anicteric and conjunctiva were pink and moist. Extraocular movements were intact and pupils were equal round and reactive to light. Eyelids were unremarkable. PULMONARY: Unlabored respirations. Good breath sounds bilaterally. No audible rales rhonchi or wheezing was noted. CARDIOVASCULAR: There is a regular rate and rhythm without any murmurs gallops or rubs. ABDOMEN: Soft and nontender with normal bowel sounds. SKIN: Skin is clear with no lesions or rashes and otherwise unremarkable. NEUROLOGIC: Patient is alert and oriented x3. Cranial nerves II through XII are grossly intact. Motor and sensory are also intact. Normal speech, volume and content. Symmetrical smile. MUSCULOSKELETAL: Normal extremities with adequate strength and full range of motion. No lower extremity swelling or edema. No calf tenderness. LYMPHATICS: No significant lymphadenopathy is noted PSYCHIATRIC: Patient appears mildly anxious Limitations: no limitations Course Vital Signs 04/23/21 04/23/21 04/23/21 09:16 09:50 10:53 Temperature 97.3 F L Pulse Rate 80 76 Respiratory 18 16 Rate Blood Pressure 94/71 O2 Sat by Pulse 95 97 97 Oximetry 04/23/21 11:07 Temperature Pulse Rate 76 Respiratory 16 Rate Blood Pressure 108/20 O2 Sat by Pulse 96 Oximetry Medical Decision Making - Medical Decision Making EKG shows sinus rhythm with occasional PACs 70 bpm ME interval is 126 QRS is 88 QT interval 392 QTC is 449. Patient's EKG shows no ST segment elevation or depression. Patient does have some flipped T waves in V4 V5 and V6 which was seen in previous EKG. Patient also has inverted T waves in 1 and aVL. Seen on previous EKG Chest x-ray shows no acute abnormality. I will back into reevaluate the patient and she was completely at her baseline no longer complaining of any difficulty breathing. Patient states that it probably was more for anxiety. - Lab Data Result diagrams: 04/23/21 09:28 04/23/21 10:52 Lab Results 04/23/21 04/23/21 04/23/21 Range/Units 09:28 09:28 09:28 WBC 12.1 H (3.8-10.6) k/uL RBC 4.26 (3.80-5.40) m/uL Hgb 13.3 (11.4-16.0) gm/dL Hct 40.5 (34.0-46.0) % MCV 95.1 (80.0-100.0) fL MCH 31.3 (25.0-35.0) pg MCHC 32.9 (31.0-37.0) g/dL RDW 16.1 H (11.5-15.5) % Plt Count 157 (150-450) k/uL MPV 8.4 Neutrophils % 53 % Lymphocytes % 36 % Monocytes % 4 % Eosinophils % 3 % Basophils % 2 % Neutrophils # 6.4 (1.3-7.7) k/uL Lymphocytes # 4.3 (1.0-4.8) k/uL Monocytes # 0.5 (0-1.0) k/uL Eosinophils # 0.4 (0-0.7) k/uL Basophils # 0.2 (0-0.2) k/uL Anisocytosis Slight PT (9.0-12.0) sec INR (<1.2) APTT (22.0-30.0) sec D-Dimer (<0.60) mg/L FEU Sodium (137-145) mmol/L Potassium (3.5-5.1) mmol/L Chloride (98-107) mmol/L Carbon Dioxide (22-30) mmol/L Anion Gap mmol/L BUN (7-17) mg/dL Creatinine (0.52-1.04) mg/dL Est GFR (CKD-EPI)AfAm (>60 ml/min/1.73 sqM) Est GFR (CKD-EPI)NonAf (>60 ml/min/1.73 sqM) Glucose (74-99) mg/dL Lactic Ac Sepsis Rflx Plasma Lactic Acid Camron 2.3 H* (0.7-2.0) mmol/L Calcium (8.4-10.2) mg/dL Total Bilirubin (0.2-1.3) mg/dL AST (14-36) U/L ALT (4-34) U/L Alkaline Phosphatase (38-126) U/L Troponin I 0.017 (0.000-0.034) ng/mL NT-Pro-B Natriuret Pep pg/mL Total Protein (6.3-8.2) g/dL Albumin (3.5-5.0) g/dL 04/23/21 04/23/21 04/23/21 Range/Units 09:28 10:08 10:52 WBC (3.8-10.6) k/uL RBC (3.80-5.40) m/uL Hgb (11.4-16.0) gm/dL Hct (34.0-46.0) % MCV (80.0-100.0) fL MCH (25.0-35.0) pg MCHC (31.0-37.0) g/dL RDW (11.5-15.5) % Plt Count (150-450) k/uL MPV Neutrophils % % Lymphocytes % % Monocytes % % Eosinophils % % Basophils % % Neutrophils # (1.3-7.7) k/uL Lymphocytes # (1.0-4.8) k/uL Monocytes # (0-1.0) k/uL Eosinophils # (0-0.7) k/uL Basophils # (0-0.2) k/uL Anisocytosis PT (9.0-12.0) sec INR (<1.2) APTT (22.0-30.0) sec D-Dimer (<0.60) mg/L FEU Sodium 139 (137-145) mmol/L Potassium 4.7 (3.5-5.1) mmol/L Chloride 105 (98-107) mmol/L Carbon Dioxide 22 (22-30) mmol/L Anion Gap 12 mmol/L BUN 2 L (7-17) mg/dL Creatinine 0.41 L (0.52-1.04) mg/dL Est GFR (CKD-EPI)AfAm >90 (>60 ml/min/1.73 sqM) Est GFR (CKD-EPI)NonAf >90 (>60 ml/min/1.73 sqM) Glucose 93 (74-99) mg/dL Lactic Ac Sepsis Rflx Y Plasma Lactic Acid Camron (0.7-2.0) mmol/L Calcium 8.2 L (8.4-10.2) mg/dL Total Bilirubin 0.4 (0.2-1.3) mg/dL AST 50 H (14-36) U/L ALT 32 (4-34) U/L Alkaline Phosphatase 190 H (38-126) U/L Troponin I (0.000-0.034) ng/mL NT-Pro-B Natriuret Pep 153 pg/mL Total Protein 6.3 (6.3-8.2) g/dL Albumin 3.5 (3.5-5.0) g/dL 04/23/21 04/23/21 Range/Units 11:55 12:00 WBC (3.8-10.6) k/uL RBC (3.80-5.40) m/uL Hgb (11.4-16.0) gm/dL Hct (34.0-46.0) % MCV (80.0-100.0) fL MCH (25.0-35.0) pg MCHC (31.0-37.0) g/dL RDW (11.5-15.5) % Plt Count (150-450) k/uL MPV Neutrophils % % Lymphocytes % % Monocytes % % Eosinophils % % Basophils % % Neutrophils # (1.3-7.7) k/uL Lymphocytes # (1.0-4.8) k/uL Monocytes # (0-1.0) k/uL Eosinophils # (0-0.7) k/uL Basophils # (0-0.2) k/uL Anisocytosis PT 10.1 (9.0-12.0) sec INR 0.9 (<1.2) APTT 22.9 (22.0-30.0) sec D-Dimer 0.29 (<0.60) mg/L FEU Sodium (137-145) mmol/L Potassium (3.5-5.1) mmol/L Chloride (98-107) mmol/L Carbon Dioxide (22-30) mmol/L Anion Gap mmol/L BUN (7-17) mg/dL Creatinine (0.52-1.04) mg/dL Est GFR (CKD-EPI)AfAm (>60 ml/min/1.73 sqM) Est GFR (CKD-EPI)NonAf (>60 ml/min/1.73 sqM) Glucose (74-99) mg/dL Lactic Ac Sepsis Rflx Plasma Lactic Acid Camron 1.4 (0.7-2.0) mmol/L Calcium (8.4-10.2) mg/dL Total Bilirubin (0.2-1.3) mg/dL AST (14-36) U/L ALT (4-34) U/L Alkaline Phosphatase (38-126) U/L Troponin I (0.000-0.034) ng/mL NT-Pro-B Natriuret Pep pg/mL Total Protein (6.3-8.2) g/dL Albumin (3.5-5.0) g/dL Disposition Clinical Impression: Anxiety Disposition: HOME SELF-CARE Instructions (If sedation given, give patient instructions): Anxiety (ED) Is patient prescribed a controlled substance at d/c from ED?: No Referrals: Miya Johnson MD [Primary Care Provider] - 1-2 days Time of Disposition: 12:51
--- NOTE | 2021-04-23 09:44 | XR ---
EXAMINATION TYPE: XR chest 2V DATE OF EXAM: 04/23/2021 COMPARISON: 04/20/2021 HISTORY: 61 year-old female shortness of breath, difficulty in breathing TECHNIQUE: AP and lateral views FINDINGS: Borderline cardiomegaly. Interstitial and perihilar changes. No pleural effusion. IMPRESSION: Borderline cardiomegaly. Correlate for mild CHF with pulmonary vascular congestion.
[2021-04-23 09:46] LABS: Anisocytosis Slight; Basophils # (A) 0.2 k/uL (0-0.2); Basophils % (A) 2 %; Eosinophils # (A) 0.4 k/uL (0-0.7); Eosinophils % (A) 3 %; HCT 40.5 % (34.0-46.0); HGB 13.3 gm/dL (11.4-16.0); Lymphocytes # (A) 4.3 k/uL (1.0-4.8); Lymphocytes % (A) 36 %; MCH 31.3 pg (25.0-35.0); MCHC 32.9 g/dL (31.0-37.0); MCV 95.1 fL (80.0-100.0); Mean Platelet Volume 8.4; Monocytes # (A) 0.5 k/uL (0-1.0); Monocytes % (A) 4 %; Neutrophils # (A) 6.4 k/uL (1.3-7.7); Neutrophils % (A) 53 %; Platelet Count 157 k/uL (150-450); RBC 4.26 m/uL (3.80-5.40); RDW 16.1 % (11.5-15.5); WBC 12.1 k/uL (3.8-10.6)
[2021-04-23 11:04] LABS: ALT 32 U/L (4-34); AST 50 U/L (14-36); African American GFR (CKD) >90 (>60 ml/min/1.73 sqM); Albumin 3.5 g/dL (3.5-5.0); Alkaline Phosphatase 190 U/L (38-126); Anion Gap 12 mmol/L; Blood Urea Nitrogen 2 mg/dL (7-17); Calcium 8.2 mg/dL (8.4-10.2); Carbon Dioxide 22 mmol/L (22-30); Chloride 105 mmol/L (98-107); Glucose 93 mg/dL (74-99); Non-African American GFR(CKD) >90 (>60 ml/min/1.73 sqM); Potassium 4.7 mmol/L (3.5-5.1); Sodium 139 mmol/L (137-145); Total Bilirubin 0.4 mg/dL (0.2-1.3); Total Protein 6.3 g/dL (6.3-8.2)
[2021-04-23 12:29] LABS: D-Dimer 0.29 mg/L FEU (<0.60); INR 0.9 (<1.2); Partial Thromboplastin Time 22.9 sec (22.0-30.0); Prothrombin Time 10.1 sec (9.0-12.0)
[2021-04-23 13:13] VITALS: BP 110/77; PULSE 74; RESP 18; TEMP 98
== END 2021-04-23 13:12 | disposition home or self-care (01) ==
LOC: EC 09:15
DX: F41.9 Anxiety disorder, unspecified (principal); R06.02 Shortness of breath; I11.9 Hypertensive heart disease without heart failure; J44.1 Chronic obstructive pulmonary disease with (acute) exacerbation; I25.2 Old myocardial infarction; I25.10 Atherosclerotic heart disease of native coronary artery without angina pectoris; F32.9 Major depressive disorder, single episode, unspecified; F17.200 Nicotine dependence, unspecified, uncomplicated; Z86.73 Personal history of transient ischemic attack (TIA), and cerebral infarction without residual deficits; Z79.51 Long term (current) use of inhaled steroids; Z79.82 Long term (current) use of aspirin
CPT/HCPCS: 36415; 93005; 85379; 83880; 80053; 83605; 84484; 85025; 85610; 85730; 71046; 99285; 96374; 96361 ×2; J2060

== ENCOUNTER 2021-04-28 | Inpatient (IN) | payer OTHER | END 2021-05-02 12:59 | disposition home health service (06) | DRG 897 | PROVIDERS: ADMIT Internal Medicine | DX: F10.231 Alcohol dependence with withdrawal delirium (principal); I69.351 Hemiplegia and hemiparesis following cerebral infarction affecting right dominant side; M48.56XA Collapsed vertebra, not elsewhere classified, lumbar region, initial encounter for fracture; D69.6 Thrombocytopenia, unspecified; I25.82 Chronic total occlusion of coronary artery; K70.30 Alcoholic cirrhosis of liver without ascites; F10.229 Alcohol dependence with intoxication, unspecified; J44.9 Chronic obstructive pulmonary disease, unspecified; Z20.822 Contact with and (suspected) exposure to COVID-19; Y90.8 Blood alcohol level of 240 mg/100 ml or more; E87.6 Hypokalemia; R07.89 Other chest pain; I10 Essential (primary) hypertension; I25.10 Atherosclerotic heart disease of native coronary artery without angina pectoris; G89.29 Other chronic pain; I25.2 Old myocardial infarction; I65.22 Occlusion and stenosis of left carotid artery; M47.812 Spondylosis without myelopathy or radiculopathy, cervical region; M47.816 Spondylosis without myelopathy or radiculopathy, lumbar region; M43.12 Spondylolisthesis, cervical region; E78.5 Hyperlipidemia, unspecified; I07.1 Rheumatic tricuspid insufficiency; K58.9 Irritable bowel syndrome, unspecified; D64.9 Anemia, unspecified; F32.9 Major depressive disorder, single episode, unspecified; F41.9 Anxiety disorder, unspecified; I99.9 Unspecified disorder of circulatory system; F17.210 Nicotine dependence, cigarettes, uncomplicated; Z71.6 Tobacco abuse counseling; Z79.82 Long term (current) use of aspirin; Z79.51 Long term (current) use of inhaled steroids; Z79.899 Other long term (current) drug therapy; Z91.81 History of falling; Z95.5 Presence of coronary angioplasty implant and graft; Z95.828 Presence of other vascular implants and grafts; Z90.49 Acquired absence of other specified parts of digestive tract; Z87.39 Personal history of other diseases of the musculoskeletal system and connective tissue; Z87.42 Personal history of other diseases of the female genital tract; Z86.69 Personal history of other diseases of the nervous system and sense organs; Z98.890 Other specified postprocedural states; Z88.5 Allergy status to narcotic agent; Z88.7 Allergy status to serum and vaccine; Z82.49 Family history of ischemic heart disease and other diseases of the circulatory system; Z80.1 Family history of malignant neoplasm of trachea, bronchus and lung; Z83.49 Family history of other endocrine, nutritional and metabolic diseases; Z82.5 Family history of asthma and other chronic lower respiratory diseases; Z81.1 Family history of alcohol abuse and dependence | CPT/HCPCS: 36415; 71046; 72040; 72110; 80048; 80053; 80061; 80320; 82550; 83690; 83721; 83735; 83880; 84132; 84484; 85025; 85379; 85610; 85730; 87635; 93005; 94640; 96374; 96375; 99285 ==

== ENCOUNTER 2021-06-13 09:26 | Emergency (ER) | payer OTHER ==
[2021-06-13 09:34] VITALS: RESP 18; TEMP 98.1
[2021-06-13] MEDS ORDERED: LORazepam 2 MG/ML INJ IV STA (09:52)
--- NOTE | 2021-06-13 10:00 | ED ---
General Adult HPI - General Chief complaint: Shortness of Breath Stated complaint: MARY ALICE Time Seen by Provider: 06/13/21 09:30 Source: patient, EMS, RN notes reviewed, old records reviewed Mode of arrival: EMS Limitations: no limitations - History of Present Illness Initial comments: This is a 61-year-old female who presents emergency Department with a past medical history significant for COPD. Patient presents today stating she started having difficulty breathing yesterday her breathing treatments didn't appear to be helping. Patient also states she does have some significant anxiety. Patient states she also continues to smoke. Patient denies any chest pain or palpitations. Patient denies any back pain. Patient denies any lightheadedness dizziness. Patient denies any fever chills. Patient states she does have an increased cough but she kept the windows open yesterday she also has ALLERGIES she believes that's the pollen in the air. Patient denies any abdominal pain patient denies nausea vomiting or diarrhea. Patient denies any swelling to the legs or calf tenderness. Patient is a daily drinker and states she will he had some wine this morning. - Related Data Home Medications Medication Instructions Recorded Confirmed Aspirin EC [Ecotrin Low Dose] 81 mg PO DAILY 02/11/19 04/27/21 Ergocalciferol (Vitamin D2) 1,250 mcg PO FR 10/15/20 04/27/21 [Vitamin D2 (50,000 Iu)] Multivitamin [Multivitamins Adult 1 tab PO DAILY 11/20/20 04/27/21 Gummies] Fluticasone Nasal [place] [Flonase 1 spray EA NOSTRIL DAILY 11/30/20 04/27/21 Nasal [place]] Budesonide/Formoterol Fumarate 1 puff INHALATION RT-BID 04/20/21 04/27/21 [Symbicort 160-4.5 Mcg Inhaler] Dicyclomine [Bentyl] 10 mg PO TID 04/20/21 04/27/21 Folic Acid 1 mg PO DAILY 04/20/21 04/27/21 Ipratropium-Albuterol Nebulize 3 ml INHALATION RT-Q6H 04/20/21 04/27/21 [Duoneb 0.5 mg-3 mg/3 ml Soln] Thiamine [Vitamin B-1] 100 mg PO DAILY 04/20/21 04/27/21 Previous Rx's Medication Instructions Recorded Magnesium Oxide [Mag-Ox] 400 mg PO TID 30 Days #90 tab 12/20/20 Pantoprazole [Protonix] 40 mg PO BID #30 02/21/21 Citalopram Hydrobromide [CeleXA] 10 mg PO DAILY #30 tab 04/18/21 Atorvastatin [Lipitor] 80 mg PO HS 30 Days #30 tab 04/22/21 Isosorbide Mononitrate ER [Imdur] 30 mg PO DAILY 30 Days #30 04/22/21 tab.er.24h Metoprolol Tartrate [Lopressor] 25 mg PO BID 30 Days #60 tab 05/02/21 cloNIDine HCL [Catapres] 0.1 mg PO TID 30 Days #90 tab 05/02/21 Allergies Allergy/AdvReac Type Severity Reaction Status Date / Time Influenza Virus Vaccines AdvReac Nausea & Verified 06/13/21 12:12 Vomiting morphine AdvReac Nausea & Verified 06/13/21 12:12 Vomiting Review of Systems ROS Statement: Those systems with pertinent positive or pertinent negative responses have been documented in the HPI. ROS Other: All systems not noted in ROS Statement are negative. Past Medical History Past Medical History: Asthma, Coronary Artery Disease (CAD), COPD, CVA/TIA, Hypertension, Liver Disease, Myocardial Infarction ([place]), Seizure Disorder, Vascular Disorder Additional Past Medical History / Comment(s): Pt recently admitted to [facility] on 04/16/21 acute exacerbation COPD/tracheobronchitis. 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 Last Myocardial Infarction Date:: aug 2018 History of Any Multi-Drug Resistant Organisms: None Reported Past Surgical History: Cholecystectomy, Heart Catheterization, Orthopedic Surgery Additional Past Surgical History / Comment(s): L caratid stent, bilateral knee surgeries for tendon repair, bartholian cyst removed bilateral wrists Past Anesthesia/Blood Transfusion Reactions: Motion Sickness Additional Past Anesthesia/Blood Transfusion Reaction / Comment(s): Pt has received blood without reaction. Past Psychological History: Anxiety, Depression Smoking Status: Light tobacco smoker Past Alcohol Use History: Abuse, Daily, Heavy Past Drug Use History: None Reported - Past Family History Mother Family Medical History: Cancer, Congestive Heart Failure (CHF), Coronary Artery Disease (CAD), Hyperlipidemia Additional Family Medical History / Comment(s): Mother at age 85 from lung cancer. Father Family Medical History: Cancer, COPD Additional Family Medical History / Comment(s): Father at age 63 from lung cancer. Brother(s) Additional Family Medical History / Comment(s): Patient has a total of 7 siblings. 5 are alive without any major medical problems she is aware of. 2 siblings have one from alcohol abuse and 1. Coronary artery disease. Daughter(s) Additional Family Medical History / Comment(s): Patient has one daughter with no major medical problems. General Exam - General Exam Comments Initial Comments: GENERAL: Patient is well-developed and well-nourished. Patient is nontoxic and well- hydrated and is in mild distress. ENT: Neck is soft and supple. No significant lymphadenopathy is noted. Oropharynx is clear. Moist mucous membranes. Neck has full range of motion without eliciting any pain. EYES: The sclera were anicteric and conjunctiva were pink and moist. Extraocular movements were intact and pupils were equal round and reactive to light. Eyelids were unremarkable. PULMONARY: Unlabored respirations. Good breath sounds bilaterally. No audible rales rhonchi or wheezing was noted. Patient was oxygenating 98% on room air CARDIOVASCULAR: There is a regular rate and rhythm without any murmurs gallops or rubs. ABDOMEN: Soft and nontender with normal bowel sounds. No palpable organomegaly was noted. There is no palpable pulsatile mass. SKIN: Skin is clear with no lesions or rashes and otherwise unremarkable. NEUROLOGIC: Patient is alert and oriented x3. Cranial nerves II through XII are grossly int act. Motor and sensory are also intact. Normal speech, volume and content. Symmetrical smile. MUSCULOSKELETAL: Normal extremities with adequate strength and full range of motion. LYMPHATICS: No significant lymphadenopathy is noted PSYCHIATRIC: Normal psychiatric evaluation. Limitations: no limitations Course Vital Signs 06/13/21 06/13/21 09:27 10:57 Temperature 98.1 F Pulse Rate 98 102 H Respiratory 18 18 Rate Blood Pressure 126/63 112/82 O2 Sat by Pulse 99 94 L Oximetry Medical Decision Making - Medical Decision Making EKG shows normal sinus rhythm at 98 bpm GA interval is 160 QRS is 88 QT interval 350 QTC is 446. Patient's EKG shows some lateral T-wave inversions in V4 V5 and V6 as well as 1 and aVL. EKG changes with T-wave inversions were seen in previous EKGs. Chest x-ray showed no acute abnormality. I'll back into reevaluate the patient she stated she felt considerably better and has no complaints at this time. - Lab Data Result diagrams: 06/13/21 09:57 06/13/21 09:57 Lab Results 06/13/21 06/13/21 06/13/21 Range/Units 09:57 09:57 09:57 WBC 13.5 H (3.8-10.6) k/uL RBC 4.63 (3.80-5.40) m/uL Hgb 14.7 D (11.4-16.0) gm/dL Hct 43.6 (34.0-46.0) % MCV 94.1 (80.0-100.0) fL MCH 31.7 (25.0-35.0) pg MCHC 33.7 (31.0-37.0) g/dL RDW 14.5 (11.5-15.5) % Plt Count 425 D (150-450) k/uL MPV 8.0 Neutrophils % 67 % Lymphocytes % 25 % Monocytes % 3 % Eosinophils % 1 % Basophils % 2 % Neutrophils # 9.0 H (1.3-7.7) k/uL Lymphocytes # 3.4 (1.0-4.8) k/uL Monocytes # 0.4 (0-1.0) k/uL Eosinophils # 0.2 (0-0.7) k/uL Basophils # 0.2 (0-0.2) k/uL D-Dimer 0.29 (<0.60) mg/L FEU Sodium 140 (137-145) mmol/L Potassium 4.8 (3.5-5.1) mmol/L Chloride 100 (98-107) mmol/L Carbon Dioxide 24 (22-30) mmol/L Anion Gap 16 mmol/L BUN 10 (7-17) mg/dL Creatinine 0.43 L (0.52-1.04) mg/dL Est GFR (CKD-EPI)AfAm >90 (>60 ml/min/1.73 sqM) Est GFR (CKD-EPI)NonAf >90 (>60 ml/min/1.73 sqM) Glucose 135 H (74-99) mg/dL Plasma Lactic Acid Camron (0.7-2.0) mmol/L Calcium 9.5 (8.4-10.2) mg/dL Total Bilirubin 0.4 (0.2-1.3) mg/dL AST 52 H (14-36) U/L ALT 38 H (4-34) U/L Alkaline Phosphatase 155 H (38-126) U/L Troponin I (0.000-0.034) ng/mL Total Protein 7.6 (6.3-8.2) g/dL Albumin 4.7 (3.5-5.0) g/dL Urine Color Urine Appearance (Clear) Urine pH (5.0-8.0) Ur Specific Fleming (1.001-1.035) Urine Protein (Negative) Urine Glucose (UA) (Negative) Urine Ketones (Negative) Urine Blood (Negative) Urine Nitrite (Negative) Urine Bilirubin (Negative) Urine Urobilinogen (<2.0) mg/dL Ur Leukocyte Esterase (Negative) 06/13/21 06/13/21 06/13/21 Range/Units 09:57 09:57 11:55 WBC (3.8-10.6) k/uL RBC (3.80-5.40) m/uL Hgb (11.4-16.0) gm/dL Hct (34.0-46.0) % MCV (80.0-100.0) fL MCH (25.0-35.0) pg MCHC (31.0-37.0) g/dL RDW (11.5-15.5) % Plt Count (150-450) k/uL MPV Neutrophils % % Lymphocytes % % Monocytes % % Eosinophils % % Basophils % % Neutrophils # (1.3-7.7) k/uL Lymphocytes # (1.0-4.8) k/uL Monocytes # (0-1.0) k/uL Eosinophils # (0-0.7) k/uL Basophils # (0-0.2) k/uL D-Dimer (<0.60) mg/L FEU Sodium (137-145) mmol/L Potassium (3.5-5.1) mmol/L Chloride (98-107) mmol/L Carbon Dioxide (22-30) mmol/L Anion Gap mmol/L BUN (7-17) mg/dL Creatinine (0.52-1.04) mg/dL Est GFR (CKD-EPI)AfAm (>60 ml/min/1.73 sqM) Est GFR (CKD-EPI)NonAf (>60 ml/min/1.73 sqM) Glucose (74-99) mg/dL Plasma Lactic Acid Camron 3.6 H* (0.7-2.0) mmol/L Calcium (8.4-10.2) mg/dL Total Bilirubin (0.2-1.3) mg/dL AST (14-36) U/L ALT (4-34) U/L Alkaline Phosphatase (38-126) U/L Troponin I <0.012 (0.000-0.034) ng/mL Total Protein (6.3-8.2) g/dL Albumin (3.5-5.0) g/dL Urine Color Light Yellow Urine Appearance Clear (Clear) Urine pH 6.5 (5.0-8.0) Ur Specific Fleming 1.005 (1.001-1.035) Urine Protein Negative (Negative) Urine Glucose (UA) Negative (Negative) Urine Ketones Negative (Negative) Urine Blood Negative (Negative) Urine Nitrite Negative (Negative) Urine Bilirubin Negative (Negative) Urine Urobilinogen <2.0 (<2.0) mg/dL Ur Leukocyte Esterase Negative (Negative) Disposition Clinical Impression: Anxiety, Alcohol abuse Disposition: HOME SELF-CARE Instructions (If sedation given, give patient instructions): Anxiety (ED), Abuse of Alcohol (ED) Additional Instructions: Patient should stop smoking and stop drinking alcohol. Is patient prescribed a controlled substance at d/c from ED?: No Referrals: Miya Johnson MD [Primary Care Provider] - 1-2 days Time of Disposition: 12:16
[2021-06-13 10:20] LABS: Basophils # (A) 0.2 k/uL (0-0.2); Basophils % (A) 2 %; Eosinophils # (A) 0.2 k/uL (0-0.7); Eosinophils % (A) 1 %; HCT 43.6 % (34.0-46.0); Lymphocytes # (A) 3.4 k/uL (1.0-4.8); Lymphocytes % (A) 25 %; MCH 31.7 pg (25.0-35.0); MCHC 33.7 g/dL (31.0-37.0); MCV 94.1 fL (80.0-100.0); Monocytes # (A) 0.4 k/uL (0-1.0); Monocytes % (A) 3 %; Neutrophils % (A) 67 %; RBC 4.63 m/uL (3.80-5.40); RDW 14.5 % (11.5-15.5); WBC 13.5 k/uL (3.8-10.6)
--- NOTE | 2021-06-13 10:30 | XR ---
EXAMINATION TYPE: XR chest 2V DATE OF EXAM: 06/13/2021 COMPARISON: 04/27/2021 HISTORY: 61 year-old female shortness of breath, difficulty breathing TECHNIQUE: AP and lateral views FINDINGS: The cardiomediastinal silhouette, aorta, and pulmonary vasculature are within normal limits. Lungs an d pleural spaces are clear. IMPRESSION: No acute cardiopulmonary process.
[2021-06-13 10:32] LABS: ALT 38 U/L (4-34); African American GFR (CKD) >90 (>60 ml/min/1.73 sqM); Anion Gap 16 mmol/L; Blood Urea Nitrogen 10 mg/dL (7-17); Calcium 9.5 mg/dL (8.4-10.2); Carbon Dioxide 24 mmol/L (22-30); Chloride 100 mmol/L (98-107); Glucose 135 mg/dL (74-99); Non-African American GFR(CKD) >90 (>60 ml/min/1.73 sqM); Sodium 140 mmol/L (137-145); Total Bilirubin 0.4 mg/dL (0.2-1.3)
[2021-06-13 10:43] LABS: HGB 14.7 gm/dL (11.4-16.0); Platelet Count 425 k/uL (150-450)
[2021-06-13 10:48] LABS: Potassium 4.8 mmol/L (3.5-5.1)
[2021-06-13 10:49] LABS: AST 52 U/L (14-36); Albumin 4.7 g/dL (3.5-5.0); Alkaline Phosphatase 155 U/L (38-126); Total Protein 7.6 g/dL (6.3-8.2)
[2021-06-13 10:58] VITALS: BP 112/82; PULSE 102
[2021-06-13] MEDS ORDERED: SODIUM CHLORIDE 0.9% 1,000 ML IV ONE (11:13)
[2021-06-13] MEDS ORDERED: SODIUM CHLORIDE 0.9% 500 ML 500 ML IV ONE (11:13)
[2021-06-13 12:02] LABS: Appearance,Urine Clear (Clear); Bilirubin,Urine Negative (Negative); Blood,Urine Negative (Negative); Color,Urine Light Yellow; Glucose,Urine (UA) Negative (Negative); Ketones,Urine Negative (Negative); Leukocyte Esterase,Urine Negative (Negative); Nitrite,Urine Negative (Negative); PH, Urine 6.5 (5.0-8.0); Protein,Urine Negative (Negative); Specific Gravity,Urine 1.005 (1.001-1.035); Urobilinogen,Urine <2.0 mg/dL (<2.0)
== END 2021-06-13 13:04 | disposition home or self-care (01) ==
LOC: EC 09:26
DX: F41.9 Anxiety disorder, unspecified (principal); F10.10 Alcohol abuse, uncomplicated; I10 Essential (primary) hypertension; I25.10 Atherosclerotic heart disease of native coronary artery without angina pectoris; I25.2 Old myocardial infarction; J44.9 Chronic obstructive pulmonary disease, unspecified; G40.909 Epilepsy, unspecified, not intractable, without status epilepticus; F32.9 Major depressive disorder, single episode, unspecified; F17.200 Nicotine dependence, unspecified, uncomplicated; Z79.82 Long term (current) use of aspirin; Z79.51 Long term (current) use of inhaled steroids; Z88.5 Allergy status to narcotic agent; Z86.73 Personal history of transient ischemic attack (TIA), and cerebral infarction without residual deficits; Z80.1 Family history of malignant neoplasm of trachea, bronchus and lung; Z82.49 Family history of ischemic heart disease and other diseases of the circulatory system; Z83.49 Family history of other endocrine, nutritional and metabolic diseases; Z90.49 Acquired absence of other specified parts of digestive tract; Y90.9 Presence of alcohol in blood, level not specified
CPT/HCPCS: 36415; 93005; 85379; 80053; 83605; 84484; 85025; 81003; 71046; 96374; 96361; 99285; J2060

== ENCOUNTER 2021-08-16 11:15 | Emergency (ER) | payer OTHER ==
[2021-08-16 11:24] VITALS: RESP 20
[2021-08-16] MEDS ORDERED: KETOROLAC 15 MG/ML 1 ML VIAL IM STA (11:47)
[2021-08-16] MEDS ORDERED: ORPHENADRINE 30 MG/ML 2 ML VIAL IM STA (11:47)
[2021-08-16] MEDS ORDERED: KETOROLAC 15 MG/ML 1 ML VIAL IVP STA (11:57)
[2021-08-16] MEDS ORDERED: ORPHENADRINE 30 MG/ML 2 ML VIAL IVP STA (11:57)
--- NOTE | 2021-08-16 11:58 | ED ---
General Adult HPI - General Chief complaint: Back Pain/Injury Stated complaint: back pain Time Seen by Provider: 08/16/21 11:42 Source: EMS Mode of arrival: EMS Limitations: physical limitation - History of Present Illness Initial comments: 61-year-old female with a past medical history of asthma, CAD, CVA, hyper tension, alcohol abuse, chronic back pain, degenerative disc disease since to the emergency room for a chief complaint of chronic low back pain. Patient states her back has been hurting because she hasn't been able to take her pain medication. Reports that she has prescribed her Dilaudid but her friend took it from her. Patient told the nurse that she gave it to her friend. Therefore she has not had anything for pain and is having trouble controlling it. Patient denies any bladder or bowel changes, saddle anesthesia, weakness of the legs, or fevers. Patient has no other complaints at this time including shortness of breath, chest pain, abdominal pain, nausea or vomiting, headache, or visual changes. - Related Data Home Medications Medication Instructions Recorded Confirmed Aspirin EC [Ecotrin Low Dose] 81 mg PO DAILY 02/11/19 06/13/21 Ergocalciferol (Vitamin D2) 1,250 mcg PO FR 10/15/20 06/13/21 [Vitamin D2 (50,000 Iu)] Budesonide/Formoterol Fumarate 1 puff INHALATION RT-BID 04/20/21 06/13/21 [Symbicort 160-4.5 Mcg Inhaler] Dicyclomine [Bentyl] 10 mg PO TID 04/20/21 06/13/21 Ibuprofen [Motrin] 600 mg PO TID PRN 06/13/21 06/13/21 Magnesium Oxide [Mag-Ox] 400 mg PO DAILY 06/13/21 06/13/21 Metoprolol Succinate (ER) [Toprol 50 mg PO DAILY 06/13/21 06/13/21 Xl] Pantoprazole [Protonix] 40 mg PO DAILY 06/13/21 06/13/21 Spironolactone [Aldactone] 100 mg PO DAILY 06/13/21 06/13/21 Previous Rx's Medication Instructions Recorded Atorvastatin [Lipitor] 80 mg PO HS 30 Days #30 tab 04/22/21 Isosorbide Mononitrate ER [Imdur] 30 mg PO DAILY 30 Days #30 04/22/21 tab.er.24h Allergies Allergy/AdvReac Type Severity Reaction Status Date / Time Influenza Virus Vaccines AdvReac Nausea & Verified 08/16/21 11:18 Vomiting morphine AdvReac Nausea & Verified 08/16/21 11:18 Vomiting Review of Systems ROS Statement: Those systems with pertinent positive or pertinent negative responses have been documented in the HPI. ROS Other: All systems not noted in ROS Statement are negative. Past Medical History Past Medical History: Asthma, Coronary Artery Disease (CAD), COPD, CVA/TIA, Hypertension, Liver Disease, Myocardial Infarction ([place]), Seizure Disorder, Vascular Disorder Additional Past Medical History / Comment(s): Pt recently admitted to [facility] on 04/16/21 acute exacerbation COPD/tracheobronchitis. 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 Last Myocardial Infarction Date:: aug 2018 History of Any Multi-Drug Resistant Organisms: None Reported Past Surgical History: Cholecystectomy, Heart Catheterization, Orthopedic Surgery Additional Past Surgical History / Comment(s): L caratid stent, bilateral knee surgeries for tendon repair, bartholian cyst removed bilateral wrists Past Anesthesia/Blood Transfusion Reactions: Motion Sickness Additional Past Anesthesia/Blood Transfusion Reaction / Comment(s): Pt has received blood without reaction. Past Psychological History: Anxiety, Depression Smoking Status: Light tobacco smoker Past Alcohol Use History: Abuse, Daily, Heavy Past Drug Use History: Marijuana - Past Family History Mother Family Medical History: Cancer, Congestive Heart Failure (CHF), Coronary Artery Disease (CAD), Hyperlipidemia Additional Family Medical History / Comment(s): Mother at age 85 from lung cancer. Father Family Medical History: Cancer, COPD Additional Family Medical History / Comment(s): Father at age 63 from lung cancer. Brother(s) Additional Family Medical History / Comment(s): Patient has a total of 7 siblings. 5 are alive without any major medical problems she is aware of. 2 siblings have one from alcohol abuse and 1. Coronary artery disease. Daughter(s) Additional Family Medical History / Comment(s): Patient has one daughter with no major medical problems. General Exam Limitations: physical limitation General appearance: alert, in no apparent distress Head exam: Present: atraumatic Eye exam: Present: normal appearance, PERRL, EOMI. Absent: scleral icterus, conjunctival injection ENT exam: Present: normal exam, mucous membranes moist Neck exam: Present: normal inspection, full ROM. Absent: tenderness Respiratory exam: Present: normal lung sounds bilaterally. Absent: respiratory distress, wheezes Cardiovascular Exam: Present: regular rate, normal rhythm, normal heart sounds GI/Abdominal exam: Present: soft, normal bowel sounds. Absent: distended, tenderness Extremities exam: Present: normal capillary refill (> 2 seconds in BLE) Course Vital Signs 08/16/21 08/16/21 11:18 13:19 Temperature 97.8 F 98.2 F Pulse Rate 74 78 Respiratory 20 20 Rate Blood Pressure 168/88 160/78 O2 Sat by Pulse 97 99 Oximetry Medical Decision Making - Medical Decision Making Patient presents for low back pain. Denies any bladder or bowel changes, saddle anesthesia, fevers, or weakness of the legs. Pain is chronic in nature and is related to the fact that patient gave away her pain medication and apparently. Patient was given Toradol and Norflex for her chronic back pain. At this time patient is stable for discharge home. Her daughter came to get her. She'll r eturn here for any worsening symptoms. Disposition Clinical Impression: Chronic back pain Disposition: HOME SELF-CARE Condition: Good Instructions (If sedation given, give patient instructions): Acute Low Back Pain (ED) Additional Instructions: Follow-up with your doctor for pain medication refills. Return to the emergency room for any worsening symptoms. Is patient prescribed a controlled substance at d/c from ED?: No Referrals: Miya Johnosn MD [Primary Care Provider] - 1-2 days Time of Disposition: 13:00
[2021-08-16 13:20] VITALS: BP 160/78; PULSE 78; TEMP 98.2
== END 2021-08-16 13:19 | disposition home or self-care (01) ==
LOC: EC 11:15
DX: I10 Essential (primary) hypertension (principal); I25.2 Old myocardial infarction; I25.10 Atherosclerotic heart disease of native coronary artery without angina pectoris; J45.909 Unspecified asthma, uncomplicated; F41.9 Anxiety disorder, unspecified; M54.50 Low back pain, unspecified; F32.9 Major depressive disorder, single episode, unspecified; F17.290 Nicotine dependence, other tobacco product, uncomplicated; F12.90 Cannabis use, unspecified, uncomplicated; Z79.82 Long term (current) use of aspirin; Z88.7 Allergy status to serum and vaccine; Z86.73 Personal history of transient ischemic attack (TIA), and cerebral infarction without residual deficits; Z90.49 Acquired absence of other specified parts of digestive tract
CPT/HCPCS: 99283 ×2; 96374 ×2; 96375 ×2; J2360; J1885

== ENCOUNTER 2021-08-17 14:09 | Emergency (ER) | payer OTHER ==
[2021-08-17 14:21] VITALS: RESP 20
[2021-08-17] MEDS ORDERED: KETOROLAC 15 MG/ML 1 ML VIAL IM STA (14:46)
[2021-08-17] MEDS ORDERED: ORPHENADRINE 30 MG/ML 2 ML VIAL IM STA (14:46)
--- NOTE | 2021-08-17 15:35 | XR ---
EXAMINATION TYPE: XR lumbar spine 2 or 3V DATE OF EXAM: 08/17/2021 COMPARISON: 04/27/2021 HISTORY: Low back pain TECHNIQUE: 3 view lumbar spine FINDINGS: There are 5 lumbar-type vertebral bodies. Pedicles are intact. Disc heights are preserved. There is a wedge deformity with anterior vertebral body height loss at L4. Slightly less superior end plate compression deformity with anterior by vertebral body height loss at L1 is present. No posterio r wall displacement is evident. COMPARISON: Exam is stable from April 2021 IMPRESSION: 1. Stable anterior wedge deformities of L1 and L4.
--- NOTE | 2021-08-17 15:57 | ED ---
Back Pain HPI - General Chief Complaint: Back Pain/Injury Stated Complaint: Back Spasms Time Seen by Provider: 08/17/21 14:31 Source: patient, EMS, RN notes reviewed Limitations: no limitations - History of Present Illness Initial Comments: Patient is a 61-year-old female that presents emergency room complaining of low back pain with muscle spasms. She notes she does have a history of chronic low back pain after having several fractures several years ago. She notes that she was seen last night given Toradol and a muscle relaxer and she denied any imaging last night. She notes that she sats muscle spasms in a while. She notes that she tried call her primary care to get a medication filled but they would not so she came back to the emergency room. Patient was otherwise well- appearing 7-year-old female in no apparent distress. She noted that she is having muscle spasms in her back with no radicular symptoms on her legs. She denied any chest pain shortness of breath headache nausea vomiting diarrhea constipation fever fatigue chills. - Related Data Home Medications Medication Instructions Recorded Confirmed Aspirin EC [Ecotrin Low Dose] 81 mg PO DAILY 02/11/19 06/13/21 Ergocalciferol (Vitamin D2) 1,250 mcg PO FR 10/15/20 06/13/21 [Vitamin D2 (50,000 Iu)] Budesonide/Formoterol Fumarate 1 puff INHALATION RT-BID 04/20/21 06/13/21 [Symbicort 160-4.5 Mcg Inhaler] Dicyclomine [Bentyl] 10 mg PO TID 04/20/21 06/13/21 Ibuprofen [Motrin] 600 mg PO TID PRN 06/13/21 06/13/21 Magnesium Oxide [Mag-Ox] 400 mg PO DAILY 06/13/21 06/13/21 Metoprolol Succinate (ER) [Toprol 50 mg PO DAILY 06/13/21 06/13/21 Xl] Pantoprazole [Protonix] 40 mg PO DAILY 06/13/21 06/13/21 Spironolactone [Aldactone] 100 mg PO DAILY 06/13/21 06/13/21 Previous Rx's Medication Instructions Recorded Atorvastatin [Lipitor] 80 mg PO HS 30 Days #30 tab 04/22/21 Isosorbide Mononitrate ER [Imdur] 30 mg PO DAILY 30 Days #30 04/22/21 tab.er.24h Cyclobenzaprine HCl 5 mg PO TID 10 Days #30 tab 08/17/21 Allergies Allergy/AdvReac Type Severity Reaction Status Date / Time Influenza Virus Vaccines AdvReac Nausea & Verified 08/17/21 14:21 Vomiting morphine AdvReac Nausea & Verified 08/17/21 14:21 Vomiting Review of Systems ROS Statement: Those systems with pertinent positive or pertinent negative responses have been documented in the HPI. ROS Other: All systems not noted in ROS Statement are negative. Past Medical History Past Medical History: Asthma, Coronary Artery Disease (CAD), COPD, CVA/TIA, Hypertension, Liver Disease, Myocardial Infarction ([place]), Seizure Disorder, Vascular Disorder Additional Past Medical History / Comment(s): Pt recently admitted to [facility] on 04/16/21 acute exacerbation COPD/tracheobronchitis. 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 Last Myocardial Infarction Date:: aug 2018 History of Any Multi-Drug Resistant Organisms: None Reported Past Surgical History: Cholecystectomy, Heart Catheterization, Orthopedic Surgery Additional Past Surgical History / Comment(s): L caratid stent, bilateral knee surgeries for tendon repair, bartholian cyst removed bilateral wrists Past Anesthesia/Blood Transfusion Reactions: Motion Sickness Additional Past Anesthesia/Blood Transfusion Reaction / Comment(s): Pt has received blood without reaction. Past Psychological History: Anxiety, Depression Smoking Status: Light tobacco smoker Past Alcohol Use History: Abuse, Daily, Heavy Past Drug Use History: Marijuana - Past Family History Mother Family Medical History: Cancer, Congestive Heart Failure (CHF), Coronary Artery Disease (CAD), Hyperlipidemia Additional Family Medical History / Comment(s): Mother at age 85 from lung cancer. Father Family Medical History: Cancer, COPD Additional Family Medical History / Comment(s): Father at age 63 from lung cancer. Brother(s) Additional Family Medical History / Comment(s): Patient has a total of 7 siblings. 5 are alive without any major medical problems she is aware of. 2 siblings have one from alcohol abuse and 1. Coronary artery disease. Daughter(s) Additional Family Medical History / Comment(s): Patient has one daughter with no major medical problems. General Exam Limitations: no limitations General appearance: alert, in no apparent distress Head exam: Present: atraumatic, normocephalic, normal inspection Eye exam: Present: normal appearance, PERRL, EOMI. Absent: scleral icterus, conjunctival injection, periorbital swelling ENT exam: Present: normal exam, mucous membranes moist Neck exam: Present: normal inspection Respiratory exam: Present: normal lung sounds bilaterally. Absent: respiratory distress, wheezes, rales, rhonchi, stridor Cardiovascular Exam: Present: regular rate, normal rhythm, normal heart sounds. Absent: systolic murmur, diastolic murmur, rubs, gallop, clicks GI/Abdominal exam: Present: soft, normal bowel sounds. Absent: distended, tenderness, guarding, rebound, rigid Extremities exam: Present: normal inspection, full ROM, normal capillary refill. Absent: tenderness, pedal edema, joint swelling, calf tenderness Back exam: Present: normal inspection, muscle spasm (Low back bilaterally) Neurological exam: Present: alert, oriented X3 Psychiatric exam: Present: normal affect, normal mood Skin exam: Present: warm, dry, intact, normal color. Absent: rash Course Vital Signs 08/17/21 08/17/21 14:16 15:31 Temperature 98.9 F Pulse Rate 95 102 H Respiratory 20 20 Rate Blood Pressure 118/93 110/90 O2 Sat by Pulse 95 98 Oximetry Medical Decision Making - Medical Decision Making 61-year-old female complaining of low back muscle spasms with no radicular symptoms. X-ray lumbar spine, 15 mg of Toradol, 60 mg and Norflex ordered. X-ray imaging negative for any acute fractures but show stable L1 and L4 anterior wedge fractures. Patient will be sent muscle relaxers to pharmacy. Case discussed with Dr. Islas, patient discharge home with follow-up primary care. - Radiology Data Radiology results: report reviewed, image reviewed X-ray lumbar spine: Stable anterior wedge deformities of L1 and L4. Disposition Clinical Impression: Low back pain, Back spasm Disposition: HOME SELF-CARE Condition: Stable Instructions (If sedation given, give patient instructions): Acute Low Back Pain (ED) Additional Instructions: Please return to the Emergency Department if symptoms worsen or any other concerns. Follow-up with primary care 1-2 days. Take muscle relaxers as prescribed. Avoid any shortness activity or exercise. Is patient prescribed a controlled substance at d/c from ED?: No Referrals: Miya Johnson MD [Primary Care Provider] - 1-2 days Time of Disposition: 15:57
[2021-08-17 16:45] VITALS: BP 116/78; PULSE 92; TEMP 98.7
== END 2021-08-17 16:44 | disposition home or self-care (01) ==
LOC: EC 14:09
DX: M62.830 Muscle spasm of back (principal); I10 Essential (primary) hypertension; J44.9 Chronic obstructive pulmonary disease, unspecified; I25.10 Atherosclerotic heart disease of native coronary artery without angina pectoris; I25.2 Old myocardial infarction; G40.909 Epilepsy, unspecified, not intractable, without status epilepticus; F32.9 Major depressive disorder, single episode, unspecified; F41.9 Anxiety disorder, unspecified; F17.200 Nicotine dependence, unspecified, uncomplicated; F12.90 Cannabis use, unspecified, uncomplicated; Z79.82 Long term (current) use of aspirin; Z79.1 Long term (current) use of non-steroidal anti-inflammatories (NSAID); Z79.899 Other long term (current) drug therapy
CPT/HCPCS: 72100; 96372 ×2; 99283; J2360; J1885

== ENCOUNTER 2021-10-14 16:50 | Emergency (ER) | payer OTHER ==
[2021-10-14 16:59] VITALS: BP 126/78; PULSE 109; RESP 18; TEMP 98.1
--- NOTE | 2021-10-14 17:18 | ED ---
General Adult HPI - General Chief complaint: Fall Stated complaint: fall Time Seen by Provider: 10/14/21 16:54 Source: patient, EMS, RN notes reviewed Mode of arrival: EMS Limitations: no limitations - History of Present Illness Initial comments: Patient is a pleasant 7-year-old female presenting to emergency department following a fall. Patient was using her walker when she fell back. Patient reportedly did strike the back of her head. No known loss of consciousness. Patient can planes of some mild discomfort of her head. Patient does have back pain however back pain is chronic. Patient also has right hip pain however that has been somewhat persistent for the past 3 or 4 weeks. Patient amiss to drinking a few glasses of wine. EMS reports patient had several empty bottles of wine near her. - Related Data Home Medications Medication Instructions Recorded Confirmed Aspirin EC [Ecotrin Low Dose] 81 mg PO DAILY 02/11/19 10/14/21 Dicyclomine [Bentyl] 10 mg PO TID 04/20/21 10/14/21 Magnesium Oxide [Mag-Ox] 400 mg PO DAILY 06/13/21 10/14/21 Metoprolol Succinate (ER) [Toprol 50 mg PO DAILY 06/13/21 10/14/21 Xl] Pantoprazole [Protonix] 40 mg PO DAILY 06/13/21 10/14/21 Spironolactone [Aldactone] 100 mg PO DAILY 06/13/21 10/14/21 Brimonidine Tartrate [Alphagan P 1 drops BOTH EYES BID 10/14/21 10/14/21 0.2% Ophth Soln] Previous Rx's Medication Instructions Recorded Atorvastatin [Lipitor] 80 mg PO HS 30 Days #30 tab 04/22/21 Isosorbide Mononitrate ER [Imdur] 30 mg PO DAILY 30 Days #30 04/22/21 tab.er.24h Allergies Allergy/AdvReac Type Severity Reaction Status Date / Time Influenza Virus Vaccines AdvReac Nausea & Verified 10/14/21 17:29 Vomiting morphine AdvReac Nausea & Verified 10/14/21 17:29 Vomiting Review of Systems ROS Statement: Those systems with pertinent positive or pertinent negative responses have been documented in the HPI. ROS Other: All systems not noted in ROS Statement are negative. Constitutional: Denies: fever Eyes: Denies: eye pain ENT: Denies: ear pain Respiratory: Denies: cough, dyspnea Cardiovascular: Denies: chest pain Endocrine: Denies: fatigue Gastrointestinal: Denies: abdominal pain Genitourinary: Denies: dysuria Musculoskeletal: Reports: as per HPI, back pain Skin: Denies: rash Neurological: Reports: as per HPI. Denies: weakness Past Medical History Past Medical History: Asthma, Coronary Artery Disease (CAD), COPD, CVA/TIA, Hypertension, Liver Disease, Myocardial Infarction ([place]), Seizure Disorder, Vascular Disorder Additional Past Medical History / Comment(s): Pt recently admitted to [facility] on 04/16/21 acute exacerbation COPD/tracheobronchitis. 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 Last Myocardial Infarction Date:: aug 2018 History of Any Multi-Drug Resistant Organisms: None Reported Past Surgical History: Cholecystectomy, Heart Catheterization, Orthopedic Surgery Additional Past Surgical History / Comment(s): L caratid stent, bilateral knee surgeries for tendon repair, bartholian cyst removed bilateral wrists Past Anesthesia/Blood Transfusion Reactions: Motion Sickness Additional Past Anesthesia/Blood Transfusion Reaction / Comment(s): Pt has received blood without reaction. Past Psychological History: Anxiety, Depression Smoking Status: Light tobacco smoker Past Alcohol Use History: Abuse, Daily, Heavy Past Drug Use History: Marijuana - Past Family History Mother Family Medical History: Cancer, Congestive Heart Failure (CHF), Coronary Artery Disease (CAD), Hyperlipidemia Additional Family Medical History / Comment(s): Mother at age 85 from lung cancer. Father Family Medical History: Cancer, COPD Additional Family Medical History / Comment(s): Father at age 63 from lung cancer. Brother(s) Additional Family Medical History / Comment(s): Patient has a total of 7 siblings. 5 are alive without any major medical problems she is aware of. 2 siblings have one from alcohol abuse and 1. Coronary artery disease. Daughter(s) Additional Family Medical History / Comment(s): Patient has one daughter with no major medical problems. General Exam Limitations: no limitations General appearance: alert, in no apparent distress Head exam: Present: atraumatic, normocephalic Eye exam: Present: normal appearance, PERRL, EOMI, nystagmus ENT exam: Absent: normal oropharynx Neck exam: Present: normal inspection Respiratory exam: Present: normal lung sounds bilaterally Cardiovascular Exam: Present: regular rate, normal rhythm GI/Abdominal exam: Present: soft. Absent: distended, tenderness, guarding, rebound, rigid Extremities exam: Present: normal inspection, full ROM. Absent: tenderness Back exam: Present: normal inspection, tenderness (Minimal tenderness lumbar spine) Neurological exam: Present: alert, oriented X3, CN II-XII intact. Absent: motor sensory deficit Psychiatric exam: Present: normal affect, normal mood Skin exam: Present: normal color Course Vital Signs 10/14/21 16:54 Temperature 98.1 F Pulse Rate 109 H Respiratory 18 Rate Blood Pressure 126/78 O2 Sat by Pulse 98 Oximetry Medical Decision Making - Medical Decision Making Patient reevaluated and resting comfortably in bed. Patient updated on results. Patient states her daughter is going to come pick her up. - Radiology Data Radiology results: report reviewed (Computed tomography scan brain and cervical spine reveals no acute abnormality.), image reviewed (Lumbar spine shows no acute fracture or dislocation. Chronic changes. X-ray right hip and pelvis shows no fracture.) Disposition Clinical Impression: Fall, Alcohol intoxication Disposition: HOME SELF-CARE Condition: Stable Instructions (If sedation given, give patient instructions): Back Pain (ED), Abuse of Alcohol (ED), Alcohol Intoxication (ED) Additional Instructions: Discontinue alcohol use. Please follow-up with primary care physician in the next couple of days for recheck. Return for change in mental status, weakness, worsening symptoms or other concerns. Is patient prescribed a controlled substance at d/c from ED?: No Referrals: Miya Johnson MD [Primary Care Provider] - 1-2 days Time of Disposition: 19:21
--- NOTE | 2021-10-14 18:25 | XR ---
EXAMINATION TYPE: XR lumbar spine 2 or 3V DATE OF EXAM: 10/14/2021 CLINICAL HISTORY: pain TECHNIQUE: Three views of the lumbar spine are submitted. COMPARISON: 08/17/2021 FINDINGS: There are 5 lumbar type vertebral bodies identified. The lumbar spine shows satisfactory alignment w ithout evidence of acute fracture or dislocation. Vertebral body heights are within normal limits. Cagle perior endplate compression fracture of L4 is redemonstrated and demonstrates interval sclerosis. The re is also mild stable loss of height involving the superior endplate of L1. The overlying soft tissu e appears unremarkable. IMPRESSION: No acute fracture or dislocation is seen in the lumbar spine. ICD 10 NO FRACTURE, INITIAL EVALUATION
--- NOTE | 2021-10-14 18:26 | XR ---
EXAMINATION TYPE: XR Hip RT and AP Pelvis DATE OF EXAM: 10/14/2021 CLINICAL HISTORY: pain TECHNIQUE: AP and frogleg views of the right hip are obtained. COMPARISON: None. FINDINGS: There is no acute fracture/dislocation evident. The joint space appears within normal li mits. The overlying soft tissue appears unremarkable. IMPRESSION: 1. There is no acute fracture or dislocation. ICD 10 NO FRACTURE, INITIAL EVALUATION
--- NOTE | 2021-10-14 18:37 | CT ---
EXAMINATION TYPE: CT brain roni gallegos con DATE OF EXAM: 10/14/2021 COMPARISON: 12/10/2019 HISTORY: fall CT DLP: 1351.[address] of the brain was performed. The ventricles, basal cisterns and sulci overlying the cerebral convexities demonstrate mild enlargem ent. Remote insult high left parietal lobe. There is no evidence for intracranial hemorrhage or sulcal effacement. There is decreased attenuatio n about the periventricular white matter and deep white matter of both cerebral hemispheres, compatib le with chronic small vessel ischemia. No mass effects are seen. Colloid cyst is again noted measuring approximately 1 cm at the foramen of Sky. If symptoms persist consider MRI. Osseous calvarium is intact. IMPRESSION: 1. Age related atrophic and chronic small vessel ischemic change without acute intracranial process seen at this time. CT Cervical Spine: Unenhanced CT of the cervical spine was performed with bone and soft tissue window settings submitted . Coronal and sagittal reconstruction is obtained. There is normal alignment and prevertebral soft tissues. No evidence for acute cervical fracture . Scattered degenerative disc disease and spondylosis. Biapical scarring. IMPRESSION: 1. No evidence for acute fracture or subluxation of the cervical spine.
== END 2021-10-14 20:18 | disposition home or self-care (01) ==
LOC: EC 16:50
DX: F10.129 Alcohol abuse with intoxication, unspecified (principal); J44.9 Chronic obstructive pulmonary disease, unspecified; I25.2 Old myocardial infarction; I25.10 Atherosclerotic heart disease of native coronary artery without angina pectoris; G40.909 Epilepsy, unspecified, not intractable, without status epilepticus; F41.9 Anxiety disorder, unspecified; F32.A Depression, unspecified; F17.200 Nicotine dependence, unspecified, uncomplicated; F12.90 Cannabis use, unspecified, uncomplicated; W19.XXXA Unspecified fall, initial encounter; Z86.73 Personal history of transient ischemic attack (TIA), and cerebral infarction without residual deficits
CPT/HCPCS: 70450; 72100; 72125; 73502; 99284

== ENCOUNTER 2021-11-01 14:11 | Observation (INO) | payer OTHER ==
[2021-11-01] MEDS ORDERED: ASPIRIN 81 MG PO STA (14:35)
--- NOTE | 2021-11-01 15:19 | XR ---
EXAMINATION TYPE: XR chest 2V DATE OF EXAM: 11/01/2021 COMPARISON: Chest x-ray 06/13/2021 HISTORY: Chest pain TECHNIQUE: Frontal and lateral views of the chest are obtained. FINDINGS: There is no focal air space opacity, pleural effusion, or pneumothorax seen. The cardiac silhouette size is within normal limits. Aorta is dense. The osseous structures are intact. IMPRESSION: No acute cardiopulmonary process.
--- NOTE | 2021-11-01 15:53 | ED ---
General Adult HPI - General Chief complaint: Shortness of Breath Stated complaint: SOB Time Seen by Provider: 11/01/21 14:20 Source: EMS, RN notes reviewed Mode of arrival: EMS Limitations: no limitations - History of Present Illness Initial comments: 61-year-old female with a past medical history of asthma, CAD, COPD, CVA, hypertension, [place], alcohol abuse disorder presents to the emergency room for shortness of breath. Patient states she has a short of breath for about 2 days. States she was at a constitution party were a lot of people have bronchitis and thinks she may have caught it. Slight cough. Patient also states 3 days ago she had left- sided chest pain radiating on the left arm which concerned her. This has since resolved. Patient does not have any chest pain today.Patient has no other complaints at this time including shortness of breath, chest pain, abdominal pain, nausea or vomiting, headache, or visual changes. - Related Data Home Medications Medication Instructions Recorded Confirmed Aspirin EC [Ecotrin Low Dose] 81 mg PO DAILY 02/11/19 11/01/21 Dicyclomine [Bentyl] 10 mg PO TID 04/20/21 11/01/21 Metoprolol Succinate (ER) [Toprol 50 mg PO DAILY 06/13/21 11/01/21 Xl] Pantoprazole [Protonix] 40 mg PO DAILY 06/13/21 11/01/21 Brimonidine Tartrate [Alphagan P 1 drops BOTH EYES BID 10/14/21 11/01/21 0.2% Ophth Soln] Previous Rx's Medication Instructions Recorded Atorvastatin [Lipitor] 80 mg PO HS 30 Days #30 tab 04/22/21 Isosorbide Mononitrate ER [Imdur] 30 mg PO DAILY 30 Days #30 04/22/21 tab.er.24h Allergies Allergy/AdvReac Type Severity Reaction Status Date / Time Influenza Virus Vaccines AdvReac Nausea & Verified 11/01/21 16:00 Vomiting morphine AdvReac Nausea & Verified 11/01/21 16:00 Vomiting Review of Systems ROS Statement: Those systems with pertinent positive or pertinent negative responses have been documented in the HPI. ROS Other: All systems not noted in ROS Statement are negative. Past Medical History Past Medical History: Asthma, Coronary Artery Disease (CAD), COPD, CVA/TIA, Hypertension, Liver Disease, Myocardial Infarction ([place]), Seizure Disorder, Vas cular Disorder Additional Past Medical History / Comment(s): Pt recently admitted to [facility] on 04/16/21 acute exacerbation COPD/tracheobronchitis. 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 Last Myocardial Infarction Date:: aug 2018 History of Any Multi-Drug Resistant Organisms: None Reported Past Surgical History: Cholecystectomy, Heart Catheterization, Orthopedic Surgery Additional Past Surgical History / Comment(s): L caratid stent, bilateral knee surgeries for tendon repair, bartholian cyst removed bilateral wrists Past Anesthesia/Blood Transfusion Reactions: Motion Sickness Additional Past Anesthesia/Blood Transfusion Reaction / Comment(s): Pt has received blood without reaction. Past Psychological History: Anxiety, Depression Smoking Status: Current every day smoker, Light tobacco smoker Past Alcohol Use History: Abuse, Daily, Heavy Past Drug Use History: Marijuana - Past Family History Mother Family Medical History: Cancer, Congestive Heart Failure (CHF), Coronary Artery Disease (CAD), Hyperlipidemia Additional Family Medical History / Comment(s): Mother at age 85 from lung cancer. Father Family Medical History: Cancer, COPD Additional Family Medical History / Comment(s): Father at age 63 from lung cancer. Brother(s) Additional Family Medical History / Comment(s): Patient has a total of 7 siblings. 5 are alive without any major medical problems she is aware of. 2 siblings have one from alcohol abuse and 1. Coronary artery disease. Daughter(s) Additional Family Medical History / Comment(s): Patient has one daughter with no major medical problems. General Exam Limitations: no limitations General appearance: alert, in no apparent distress Head exam: Present: atraumatic Eye exam: Present: normal appearance, PERRL, EOMI. Absent: scleral icterus, conjunctival injection ENT exam: Present: normal exam, mucous membranes moist Neck exam: Present: normal inspection, full ROM. Absent: tenderness Respiratory exam: Present: normal lung sounds bilaterally. Absent: respiratory distress, wheezes Cardiovascular Exam: Present: regular rate, normal rhythm, normal heart sounds Extremities exam: Present: normal capillary refill (Capillary refill less than 2 seconds, radial pulse 2+ left upper extremity) Course Vital Signs 11/01/21 14:12 Temperature 99.2 F Pulse Rate 88 Respiratory 19 Rate Blood Pressure 121/74 O2 Sat by Pulse 100 Oximetry EKG Findings - EKG Comments: EKG Findings:: Normal sinus rhythm, ventricular rate 93, ID interval 144, QTC 477 Medical Decision Making - Medical Decision Making Vitals are stable. Patient is well-appearing. Patient did have left-sided chest pain over the past few days radiating to the left arm. Since resolved. States she feels like it was another heart attack. Patient WAS 233 in the emergency room. Troponin 0.022. EKG does show extensive T-wave inversions slightly worsened from previous EKG. At this time patient will be admitted for cardiology consultation and elevated troponins as well as acute alcohol intoxication. - Lab Data Result diagrams: 11/01/21 15:22 Lab Results 11/01/21 11/01/21 11/01/21 Range/Units 14:59 15:22 15:22 Sodium 142 (137-145) mmol/L Potassium 5.2 H (3.5-5.1) mmol/L Chloride 105 (98-107) mmol/L Carbon Dioxide 21 L (22-30) mmol/L Anion Gap 16 mmol/L BUN 14 (7-17) mg/dL Creatinine 0.50 L (0.52-1.04) mg/dL Est GFR (CKD-EPI)AfAm >90 (>60 ml/min/1.73 sqM) Est GFR (CKD-EPI)NonAf >90 (>60 ml/min/1.73 sqM) Glucose 97 (74-99) mg/dL Calcium 9.2 (8.4-10.2) mg/dL Magnesium 1.8 (1.6-2.3) mg/dL Total Bilirubin 1.1 (0.2-1.3) mg/dL AST 64 H (14-36) U/L ALT 26 (4-34) U/L Alkaline Phosphatase 151 H (38-126) U/L Troponin I 0.022 (0.000-0.034) ng/mL Total Protein 8.4 H (6.3-8.2) g/dL Albumin 4.9 (3.5-5.0) g/dL Lipase 108 (23-300) U/L Serum Alcohol 233 H* mg/dL Coronavirus (PCR) Not Detected (Not Detectd) Disposition Clinical Impression: Acute alcohol intoxication, Chest pain, Shortness of breath Disposition: ADMITTED IP TO THIS HOSP Is patient prescribed a controlled substance at d/c from ED?: No Referrals: Miya Johnson MD [Primary Care Provider] - 1-2 days Time of Disposition: 17:03
[2021-11-01 15:56] LABS: ALT 26 U/L (4-34); AST 64 U/L (14-36); African American GFR (CKD) >90 (>60 ml/min/1.73 sqM); Albumin 4.9 g/dL (3.5-5.0); Alkaline Phosphatase 151 U/L (38-126); Anion Gap 16 mmol/L; Blood Urea Nitrogen 14 mg/dL (7-17); Calcium 9.2 mg/dL (8.4-10.2); Carbon Dioxide 21 mmol/L (22-30); Chloride 105 mmol/L (98-107); Glucose 97 mg/dL (74-99); Lipase 108 U/L (23-300); Magnesium 1.8 mg/dL (1.6-2.3); Non-African American GFR(CKD) >90 (>60 ml/min/1.73 sqM); Potassium 5.2 mmol/L (3.5-5.1); Sodium 142 mmol/L (137-145); Total Bilirubin 1.1 mg/dL (0.2-1.3); Total Protein 8.4 g/dL (6.3-8.2)
[2021-11-01 15:57] LABS: Alcohol 233 mg/dL
[2021-11-01] MEDS ORDERED: LORazepam 2 MG/ML INJ IV PRN ×2 (17:03)
[2021-11-01] MEDS ORDERED: THIAMINE 100 MG/ML 2 ML VIAL IM STA (17:03)
[2021-11-01 17:39] LABS: Anisocytosis Slight; Basophils # (A) 0.2 k/uL (0-0.2); Basophils % (A) 2 %; Eosinophils # (A) 0.1 k/uL (0-0.7); Eosinophils % (A) 1 %; HCT 48.8 % (34.0-46.0); HGB 15.6 gm/dL (11.4-16.0); Lymphocytes % (A) 47 %; MCH 30.2 pg (25.0-35.0); MCHC 32.1 g/dL (31.0-37.0); Mean Platelet Volume 9.8; Monocytes # (A) 0.4 k/uL (0-1.0); Monocytes % (A) 4 %; Neutrophils # (A) 4.6 k/uL (1.3-7.7); Neutrophils % (A) 44 %; Platelet Count 103 k/uL (150-450); RBC 5.19 m/uL (3.80-5.40); RDW 16.4 % (11.5-15.5); WBC 10.7 k/uL (3.8-10.6)
[2021-11-01 19:06] LABS: Partial Thromboplastin Time 24.8 sec (22.0-30.0); Prothrombin Time 11.1 sec (9.0-12.0)
[2021-11-01] MEDS ORDERED: THIAMINE 100 MG/ML 2 ML VIAL IM ONE (22:00)
[2021-11-01] MEDS: NICOTINE 14MG/24HR PATCH TRANSDERM SCH (22:27)
[2021-11-01] MEDS: BRIMONIDINE TARTRATE 0.2% DROPS 5 ML BTL BOTH EYES SCH ×4 (22:42→22:45)
[2021-11-01] MEDS: SODIUM CHLORIDE 0.9% 1,000 ML IV SCH (22:43)
[2021-11-02] MEDS: LORazepam 2 MG/ML INJ IV PRN ×2 (05:14→05:17)
[2021-11-02] MEDS ORDERED: THIAMINE 100 MG TAB PO SCH (07:30)
[2021-11-02 08:01] VITALS: BP 165/94; PULSE 97; RESP 16; TEMP 98.3
[2021-11-02] MEDS: SODIUM CHLORIDE 0.9% 1,000 ML IV SCH (08:15)
[2021-11-02] MEDS: BRIMONIDINE TARTRATE 0.2% DROPS 5 ML BTL BOTH EYES SCH (08:15)
[2021-11-02] MEDS: NICOTINE 14MG/24HR PATCH TRANSDERM SCH (08:15)
[2021-11-02] MEDS ORDERED: ASPIRIN 325 MG TAB PO SCH (09:00)
[2021-11-02 09:52] LABS: Chol/HDL Ratio 3.86 Ratio; LDL Cholesterol,Calculated 58.2 mg/dL (0.0-131.0)
--- NOTE | 2021-11-02 11:25 | P.CRDCN ---
History of Present Illness Consult date: 11/02/21 Chief complaint: Shortness of breath History of present illness: The patient is a 61-year-old female patient who sees Dr. Howard regularly with a past medical history significant for history of stroke as well as carotid disease with prior stenting of the left carotid and also coronary artery disease and known chronic total occlusion of the RCA B is on heart catheterization was performed in 2019 as well as hypertension and dyslipidemia presented to the emergency department and subsequently admitted to the observation unit for further evaluation of shortness of breath. The patient stated that the shortness of breath started about 3 days ago. She describes exertional dyspnea without orthopnea or PND and without any symptoms of chest pain or chest discomfort. She is not quite sure if she has some fever at home but she thinks she might did have some fever at home. Beside that she has been experiencing cough productive of sputum. She stated that she was with a democrat where she drinks alcohol excessively and some sick people around her. The patient underwent an EKG which showed sinus rhythm with T-wave inversion in the inferolateral leads seems to be slightly progressed from prior EKG. 3 sets of cardiac enzymes came in to be unremarkable. The chest x-ray did not show any acute abnormalities. An echo from earlier this year showed normal left ventricular systolic function without significant valvular abnormalities. The patient alcohol serum level came in to be severely elevated. Past Medical History Past Medical History: Asthma, Coronary Artery Disease (CAD), COPD, CVA/TIA, Hypertension, Liver Disease, Myocardial Infarction ([place]), Seizure Disorder, Vascular Disorder Additional Past Medical History / Comment(s): Pt recently admitted to [facility] on 04/16/21 acute exacerbation COPD/tracheobronchitis. 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 Last Myocardial Infarction Date:: aug 2018 History of Any Multi-Drug Resistant Organisms: None Reported Past Surgical History: Cholecystectomy, Heart Catheterization, Orthopedic Surgery Additional Past Surgical History / Comment(s): L caratid stent, bilateral knee surgeries for tendon repair, bartholian cyst removed bilateral wrists Past Anesthesia/Blood Transfusion Reactions: Motion Sickness Additional Past Anesthesia/Blood Transfusion Reaction / Comment(s): Pt has received blood without reaction. Past Psychological History: Anxiety, Depression Additional Psychological History / Comment(s): Pt states lately her stress/anxiety has been increased. She uses a walker to ambulate. She has a nebulizer. Sheis receiving home care thru [facility]. She no longer drives, her sarah takes her to appts. Pt manages her own meds. She states meals are an issue d/t difficulty standing/using a walker. She states is about a month she will be moving into [facility] assistive living. Smoking Status: Current every day smoker, Light tobacco smoker Past Alcohol Use History: Abuse, Daily, Heavy Additional Past Alcohol Use History / Comment(s): Pt started smoking as a teen and has cut down to a few "hits" off a cigarette a day. Pt states she is cutting down on drinking and only drinks on holidays. Past Drug Use History: Marijuana Additional Drug Use History / Comment(s): Pt has medical marijuana but does not use it. - Past Family History Mother Family Medical History: Cancer, Congestive Heart Failure (CHF), Coronary Artery Disease (CAD), Hyperlipidemia Additional Family Medical History / Comment(s): Mother at age 85 from lung cancer. Father Family Medical History: Cancer, COPD Additional Family Medical History / Comment(s): Father at age 63 from lung cancer. Brother(s) Additional Family Medical History / Comment(s): Patient has a total of 7 siblings. 5 are alive without any major medical problems she is aware of. 2 siblings have one from alcohol abuse and 1. Coronary artery disease. Daughter(s) Additional Family Medical History / Comment(s): Patient has one daughter with no major medical problems. Medications and Allergies Home Medications Medication Instructions Recorded Confirmed Type Aspirin EC [Ecotrin Low Dose] 81 mg PO DAILY 02/11/19 11/01/21 History Dicyclomine [Bentyl] 10 mg PO TID 04/20/21 11/01/21 History Atorvastatin [Lipitor] 80 mg PO HS 30 Days #30 tab 04/22/21 11/01/21 Rx Isosorbide Mononitrate ER [Imdur] 30 mg PO DAILY 30 Days #30 04/22/21 11/01/21 Rx tab.er.24h Metoprolol Succinate (ER) [Toprol 50 mg PO DAILY 06/13/21 11/01/21 History XL] Pantoprazole [Protonix] 40 mg PO DAILY 06/13/21 11/01/21 History Brimonidine Tartrate [Alphagan P 1 drops BOTH EYES BID 10/14/21 11/01/21 History 0.2% Ophth Soln] Thiamine [Vitamin B-1] 100 mg PO BID-W/MEALS #30 tab 11/02/21 Rx guaiFENesin-DM 100-10MG/5ML 10 ml PO TID PRN #250 ml 11/02/21 Rx [Robitussin DM] Allergies Allergy/AdvReac Type Severity Reaction Status Date / Time Influenza Virus Vaccines AdvReac Nausea & Verified 11/01/21 16:00 Vomiting morphine AdvReac Nausea & Verified 11/01/21 16:00 Vomiting Physical Exam Vitals: Vital Signs Temp Pulse Pulse Pulse Resp BP BP 11/02/21 08:00 98.3 F 97 16 11/02/21 01:06 98.8 F 99 18 121/71 11/01/21 21:10 18 11/01/21 20:33 98.4 F 88 18 118/73 11/01/21 19:46 97.4 F L 92 18 11/01/21 18:00 97.4 F L 92 18 92/55 11/01/21 17:19 93 18 96/56 11/01/21 14:12 99.2 F 88 19 121/74 BP Pulse Ox 11/02/21 08:00 165/94 96 11/02/21 01:06 97 11/01/21 21:10 11/01/21 20:33 100 11/01/21 19:46 98 11/01/21 18:00 98 11/01/21 17:19 94 L 11/01/21 14:12 100 Intake and Output 11/01/21 11/02/21 11/02/21 22:59 06:59 14:59 Intake Total 200 Balance 200 Intake: Oral 200 Other: Voiding Method Toilet Toilet Bedside Commode Bedside Commode # Voids 1 3 Weight 60.963 kg - Constitutional General appearance: no acute distress - Respiratory Respiratory: bilateral: diminished - Cardiovascular Rhythm: regular Heart sounds: normal: S1, S2 Results 11/01/21 16:47 11/01/21 15:22 Cardiac Enzymes 11/01/21 11/01/21 11/01/21 Range/Units 15:22 15:22 18:28 AST 64 H (14-36) U/L Troponin I 0.022 0.013 (0.000-0.034) ng/mL 11/01/21 Range/Units 22:00 AST (14-36) U/L Troponin I 0.014 (0.000-0.034) ng/mL Coagulation 11/01/21 Range/Units 18:12 PT 11.1 (9.0-12.0) sec APTT 24.8 (22.0-30.0) sec Lipids 11/02/21 Range/Units 03:52 Triglycerides 335.00 H (0.00-149.00) mg/dL Cholesterol 169.00 (0.00-200.00) mg/dL HDL Cholesterol 43.80 (40.00-60.00) mg/dL Cholesterol/HDL Ratio 3.86 Ratio CBC 11/01/21 Range/Units 16:47 WBC 10.7 H (3.8-10.6) k/uL RBC 5.19 (3.80-5.40) m/uL Hgb 15.6 (11.4-16.0) gm/dL Hct 48.8 H (34.0-46.0) % Plt Count 103 L (150-450) k/uL Comprehensive Metabolic Panel 11/01/21 Range/Units 15:22 Sodium 142 (137-145) mmol/L Potassium 5.2 H (3.5-5.1) mmol/L Chloride 105 (98-107) mmol/L Carbon Dioxide 21 L (22-30) mmol/L BUN 14 (7-17) mg/dL Creatinine 0.50 L (0.52-1.04) mg/dL Glucose 97 (74-99) mg/dL Calcium 9.2 (8.4-10.2) mg/dL AST 64 H (14-36) U/L ALT 26 (4-34) U/L Alkaline Phosphatase 151 H (38-126) U/L Total Protein 8.4 H (6.3-8.2) g/dL Albumin 4.9 (3.5-5.0) g/dL Current Medications Generic Name Dose Route Start Last Admin Trade Name Freq PRN Reason Stop Dose Admin Aspirin 325 mg 11/02/21 09:00 11/02/21 08:15 Aspirin 325 Mg Tab PO 325 mg DAILY MAGY Administration Brimonidine Tartrate 1 drops 11/01/21 00:00 11/02/21 08:15 Brimonidine Tartrate 0.2% Drops 5 Ml Btl BOTH EYES 1 drops Q8HR MAGY Administration Sodium Chloride 1,000 mls @ 100 mls/hr 11/01/21 22:30 11/02/21 08:15 Saline 0.9% IV 100 mls/hr .Q10H MAGY Administration Lorazepam 1 mg 11/01/21 17:03 Lorazepam 2 Mg/Ml Inj IV Q2HR PRN CIWA 8 or 9 Lorazepam 1 mg 11/01/21 17:03 11/02/21 05:17 Lorazepam 2 Mg/Ml Inj IV 1 mg Q1HR PRN Administration CIWA 10 to 15 Lorazepam 2 mg 11/01/21 17:03 Lorazepam 2 Mg/Ml Inj IV 11/03/21 17:03 Q10M PRN CIWA 16 or higher Nicotine 1 patch 11/01/21 22:30 11/02/21 08:15 Nicotine 14mg/24hr Patch TRANSDERM 1 patch DAILY MAGY Administration Thiamine HCl 100 mg 11/02/21 07:30 11/02/21 08:15 Thiamine 100 Mg Tab PO 100 mg BID-W/MEALS MAGY Administration Intake and Output 11/01/21 11/02/21 11/02/21 22:59 06:59 14:59 Intake Total 200 Balance 200 Intake: Oral 200 Other: Voiding Method Toilet Toilet Bedside Commode Bedside Commode # Voids 1 3 Weight 60.963 kg 11/01/21 16:47 11/01/21 15:22 Assessment and Plan Assessment: Assessment #1 shortness of breath. #2 possible bronchitis/pneumonia #3 coronary artery disease #4 carotid disease as described above #5 excessive alcohol consumption #6 multiple comorbid conditions Plan #1 acute coronary event was ruled out. Serial enzymes came in to be unremarkable #2 the patient does not seems to be in overt heart failure. She is euvolemic on examination #3 recent echo showed normal left ventricular systolic function #4 heart catheterization from 2 years ago showed chronic total occlusion of the RCA #5 continue a conservative medical approach in the absence of chest pain at this point #6 follow-up with the patient
--- NOTE | 2021-11-02 14:22 | P.DS ---
Providers Date of admission: 11/01/21 16:47 Attending physician: Jaden Benítez Consults: 11/01/21 16:47 Consult Physician Routine Consulting Provider: [facility] Consult Reason/Comments: chest pain Do you want consulting provider notified?: Yes Primary care physician: [facility] Course: Please refer to my history of present illness for further details Plan - Discharge Summary Discharge Rx Participant: No New Discharge Prescriptions: New Thiamine [Vitamin B-1] 100 mg PO BID-W/MEALS #30 tab guaiFENesin-DM 100-10MG/5ML [Robitussin DM] 10 ml PO TID PRN #250 ml PRN Reason: Cough Continue Aspirin EC [Ecotrin Low Dose] 81 mg PO DAILY Dicyclomine [Bentyl] 10 mg PO TID Atorvastatin [Lipitor] 80 mg PO HS 30 Days #30 tab Pantoprazole [Protonix] 40 mg PO DAILY Brimonidine Tartrate [Alphagan P 0.2% Ophth Soln] 1 drops BOTH EYES BID Isosorbide Mononitrate ER [Imdur] 30 mg PO DAILY 30 Days #30 tab.er.24h Metoprolol Succinate (ER) [Toprol XL] 50 mg PO DAILY Discharge Medication List Aspirin EC [Ecotrin Low Dose] 81 mg PO DAILY 02/11/19 [History] Dicyclomine [Bentyl] 10 mg PO TID 04/20/21 [History] Atorvastatin [Lipitor] 80 mg PO HS 30 Days #30 tab 04/22/21 [Rx] Isosorbide Mononitrate ER [Imdur] 30 mg PO DAILY 30 Days #30 tab.er.24h 04/22/21 [Rx] Metoprolol Succinate (ER) [Toprol XL] 50 mg PO DAILY 06/13/21 [History] Pantoprazole [Protonix] 40 mg PO DAILY 06/13/21 [History] Brimonidine Tartrate [Alphagan P 0.2% Ophth Soln] 1 drops BOTH EYES BID 10/14/21 [History] Thiamine [Vitamin B-1] 100 mg PO BID-W/MEALS #30 tab 11/02/21 [Rx] guaiFENesin-DM 100-10MG/5ML [Robitussin DM] 10 ml PO TID PRN #250 ml 11/02/21 [Rx] Follow up Appointment(s)/Referral(s): Miya Johnson MD [Primary Care Provider] - 3 Days Discharge Disposition: HOME SELF-CARE
--- NOTE | 2021-11-02 14:22 | P.HPIM ---
History of Present Illness 61-year-old female came in with complaints of shortness of breath was started 3 days ago denied any orthopnea proximal nocturnal dyspnea patient was comparing of chest pain patient was complaining of cough with sputum production which is clear phlegm. Chest x-ray did not show any significant abnormality. Patient was admitted for chest pain rule out acute current syndromes acute coronary syndromes with ruled out patient was evaluated by cardiology patient chest pain is noncardiac appears to be musculoskeletal secondary to coughing. Patient had an echocardiogram which did not show any significant abnormality. Patient was a valid by cardiology and cleared for discharge not requiring any further workup at this time. Patient does have history of alcohol abuse apparently she did quit alcohol and did drink last night as her friends and family came over for holidays. Patient presently doesn't have any all call withdrawal. REVIEW OF SYSTEMS: CONSTITUTIONAL: No fever, no malaise, no fatigue. HEENT: No recent visual problems or hearing problems. Denied any sore throat. CARDIOVASCULAR: No chest pain, orthopnea, PND, no palpitations, no syncope. PULMONARY: no hemoptysis. GASTROINTESTINAL: No diarrhea, no nausea, no vomiting, no abdominal pain. NEUROLOGICAL: No headaches, no weakness, no numbness. HEMATOLOGICAL: Denies any bleeding or petechiae. GENITOURINARY: Denies any burning micturition, frequency, or urgency. MUSCULOSKELETAL/RHEUMATOLOGICAL: Denies any joint pain, swelling, or any muscle pain. ENDOCRINE: Denies any polyuria or polydipsia. The rest of the 14-point review of systems is negative. PHYSICAL EXAMINATION: GENERAL: The patient is alert and oriented x3, not in any acute distress. Well developed, well nourished. HEENT: Pupils are round and equally reacting to light. EOMI. No scleral icterus. No conjunctival pallor. Normocephalic, atraumatic. No pharyngeal erythema. No thyromegaly. CARDIOVASCULAR: S1 and S2 present. No murmurs, rubs, or gallops. PULMONARY: Chest is clear to auscultation, no wheezing or crackles. ABDOMEN: Soft, nontender, nondistended, normoactive bowel sounds. No palpable organomegaly. MUSCULOSKELETAL: No joint swelling or deformity. EXTREMITIES: No cyanosis, clubbing, or pedal edema. NEUROLOGICAL: Gross neurological examination did not reveal any focal deficits. SKIN: No rashes. Assessment and plan -Chest pain appears to be musculoskeletal secondary to coughing was evaluated by cardiology ruled out acute coronary syndromes. D-dimer is within normal limits patient will be discharged today. -Bronchitis appears to be viral and will not benefit from any anti-medics at this time although if patient can use to have bronchitis and sputum color changes at that time patient will need antibiotics -Leukocytosis reactive -Coronary artery disease -COPD without any acute exacerbation -Continued nicotine use smokes about considered for a day trying to quit counseling was provided regarding this -Patient does have alcohol use history, as per the patient has not been drinking alcohol lately. Counseling was provided regarding this -Hypertension -Peripheral vascular disease Patient presently is not short of breath presently doesn't have any chest pain cleared by cardiology will be discharged today. Past Medical History Past Medical History: Asthma, Coronary Artery Disease (CAD), COPD, CVA/TIA, H ypertension, Liver Disease, Myocardial Infarction ([place]), Seizure Disorder, Vascular Disorder Additional Past Medical History / Comment(s): Pt recently admitted to [facility] on 04/16/21 acute exacerbation COPD/tracheobronchitis. 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 Last Myocardial Infarction Date:: aug 2018 History of Any Multi-Drug Resistant Organisms: None Reported Past Surgical History: Cholecystectomy, Heart Catheterization, Orthopedic Surgery Additional Past Surgical History / Comment(s): L caratid stent, bilateral knee surgeries for tendon repair, bartholian cyst removed bilateral wrists Past Anesthesia/Blood Transfusion Reactions: Motion Sickness Additional Past Anesthesia/Blood Transfusion Reaction / Comment(s): Pt has received blood without reaction. Past Psychological History: Anxiety, Depression Additional Psychological History / Comment(s): Pt states lately her stress/anxiety has been increased. She uses a walker to ambulate. She has a nebulizer. Sheis receiving home care thru [facility]. She no longer drives, her sarah takes her to appts. Pt manages her own meds. She states meals are an issue d/t difficulty standing/using a walker. [facility] Smoking Status: Current every day smoker, Light tobacco smoker Past Alcohol Use History: Abuse, Daily, Heavy Additional Past Alcohol Use History / Comment(s): Pt started smoking as a teen and has cut down to a few "hits" off a cigarette a day. Pt states she is cutting down on drinking and only drinks on holidays. Past Drug Use History: Marijuana Additional Drug Use History / Comment(s): Pt has medical marijuana but does not use it. - Past Family History Mother Family Medical History: Cancer, Congestive Heart Failure (CHF), Coronary Artery Disease (CAD), Hyperlipidemia Additional Family Medical History / Comment(s): Mother at age 85 from lung cancer. Father Family Medical History: Cancer, COPD Additional Family Medical History / Comment(s): Father at age 63 from lung cancer. Brother(s) Additional Family Medical History / Comment(s): Patient has a total of 7 siblings. 5 are alive without any major medical problems she is aware of. 2 siblings have one from alcohol abuse and 1. Coronary artery disease. Daughter(s) Additional Family Medical History / Comment(s): Patient has one daughter with no major medical problems. Medications and Allergies Home Medications Medication Instructions Recorded Confirmed Type Aspirin EC [Ecotrin Low Dose] 81 mg PO DAILY 02/11/19 11/01/21 History Dicyclomine [Bentyl] 10 mg PO TID 04/20/21 11/01/21 History Atorvastatin [Lipitor] 80 mg PO HS 30 Days #30 tab 04/22/21 11/01/21 Rx Isosorbide Mononitrate ER [Imdur] 30 mg PO DAILY 30 Days #30 04/22/21 11/01/21 Rx tab.er.24h Metoprolol Succinate (ER) [Toprol 50 mg PO DAILY 06/13/21 11/01/21 History XL] Pantoprazole [Protonix] 40 mg PO DAILY 06/13/21 11/01/21 History Brimonidine Tartrate [Alphagan P 1 drops BOTH EYES BID 10/14/21 11/01/21 History 0.2% Ophth Soln] Thiamine [Vitamin B-1] 100 mg PO BID-W/MEALS #30 tab 11/02/21 Rx guaiFENesin-DM 100-10MG/5ML 10 ml PO TID PRN #250 ml 11/02/21 Rx [Robitussin DM] Allergies Allergy/AdvReac Type Severity Reaction Status Date / Time Influenza Virus Vaccines AdvReac Nausea & Verified 11/01/21 16:00 Vomiting morphine AdvReac Nausea & Verified 11/01/21 16:00 Vomiting Physical Exam Vitals: Vital Signs Temp Pulse Pulse Pulse Resp BP BP 11/02/21 08:00 98.3 F 97 16 11/02/21 01:06 98.8 F 99 18 121/71 11/01/21 21:10 18 11/01/21 20:33 98.4 F 88 18 118/73 11/01/21 19:46 97.4 F L 92 18 11/01/21 18:00 97.4 F L 92 18 92/55 11/01/21 17:19 93 18 96/56 BP Pulse Ox 11/02/21 08:00 165/94 96 11/02/21 01:06 97 11/01/21 21:10 11/01/21 20:33 100 11/01/21 19:46 98 11/01/21 18:00 98 11/01/21 17:19 94 L Intake and Output 11/01/21 11/02/21 11/02/21 22:59 06:59 14:59 Intake Total 200 Balance 200 Intake: Oral 200 Other: Voiding Method Toilet Toilet Bedside Commode Bedside Commode # Voids 1 3 Weight 60.963 kg Results CBC & Chem 7: 11/01/21 16:47 11/01/21 15:22 Labs: Abnormal Lab Results - Last 24 Hours (Table) 11/01/21 11/01/21 11/02/21 Range/Units 15:22 16:47 03:52 WBC 10.7 H (3.8-10.6) k/uL Hct 48.8 H (34.0-46.0) % RDW 16.4 H (11.5-15.5) % Plt Count 103 L (150-450) k/uL Lymphocytes # 5.0 H (1.0-4.8) k/uL Potassium 5.2 H (3.5-5.1) mmol/L Carbon Dioxide 21 L (22-30) mmol/L Creatinine 0.50 L (0.52-1.04) mg/dL AST 64 H (14-36) U/L Alkaline Phosphatase 151 H (38-126) U/L Total Protein 8.4 H (6.3-8.2) g/dL Triglycerides 335.00 H (0.00-149.00) mg/dL VLDL Cholesterol, Calc 67.00 H (5.00-40.00) mg/dL Serum Alcohol 233 H* mg/dL Thrombosis Risk Factor Assmnt - Choose All That Apply Any of the Below Risk Factors Present?: Yes Each Factor Represents 1 point: Age 41-60 years Other Risk Factors: No Other congenital or acquired thrombophilia - If yes, enter type in comment: No Thrombosis Risk Factor Assessment Total Risk Factor Score: 1 Thrombosis Risk Factor Assessment Level: Low Risk
== END 2021-11-02 11:55 | disposition home or self-care (01) ==
LOC: EC 14:11 → 6NMEDSUR 16:47
PROVIDERS: ADMIT Internal Medicine; ATTEND Internal Medicine
DX: R07.89 Other chest pain (principal); J44.9 Chronic obstructive pulmonary disease, unspecified; R06.02 Shortness of breath; I10 Essential (primary) hypertension; F10.129 Alcohol abuse with intoxication, unspecified; I73.9 Peripheral vascular disease, unspecified; I25.2 Old myocardial infarction; G40.909 Epilepsy, unspecified, not intractable, without status epilepticus; F41.9 Anxiety disorder, unspecified; F32.A Depression, unspecified; E78.5 Hyperlipidemia, unspecified; Z20.822 Contact with and (suspected) exposure to COVID-19; I25.10 Atherosclerotic heart disease of native coronary artery without angina pectoris; F17.210 Nicotine dependence, cigarettes, uncomplicated; K70.30 Alcoholic cirrhosis of liver without ascites; K58.9 Irritable bowel syndrome, unspecified; M51.36 Other intervertebral disc degeneration, lumbar region; I69.351 Hemiplegia and hemiparesis following cerebral infarction affecting right dominant side; D64.9 Anemia, unspecified; I25.82 Chronic total occlusion of coronary artery; Z79.899 Other long term (current) drug therapy; Z79.82 Long term (current) use of aspirin; Z88.7 Allergy status to serum and vaccine; Z88.5 Allergy status to narcotic agent; Z71.41 Alcohol abuse counseling and surveillance of alcoholic; Z71.6 Tobacco abuse counseling; Z90.49 Acquired absence of other specified parts of digestive tract; Z80.1 Family history of malignant neoplasm of trachea, bronchus and lung; Z82.49 Family history of ischemic heart disease and other diseases of the circulatory system; Z82.5 Family history of asthma and other chronic lower respiratory diseases
CPT/HCPCS: 99285; 96374; 96372; 36415; 93005; 85379; 80061; 80053; 83690; 83735; 84484; 85025; 85610; 85730; 87635; 71046; G0378 ×2; G0480; S4990 ×2; J2060; J3411; 80320

== ENCOUNTER 2021-11-17 15:41 | Emergency (ER) | payer OTHER ==
[2021-11-17 15:55] VITALS: BP 108/49; PULSE 109; RESP 18; TEMP 98
[2021-11-17] MEDS ORDERED: LORazepam 2 MG/ML INJ IV STA (16:37)
[2021-11-17] MEDS ORDERED: KETOROLAC 30 MG/ML 1 ML VIAL IVP STA (16:38)
--- NOTE | 2021-11-17 16:41 | ED ---
General Adult HPI - General Chief complaint: Anxiety Stated complaint: Anxiety Time Seen by Provider: 11/17/21 15:50 Source: patient, EMS, RN notes reviewed, old records reviewed Mode of arrival: EMS Limitations: no limitations - History of Present Illness Initial comments: This is a 61-year-old female presents emergency department with past medical his tory significant for a previous [place] and is a smoker at this time. Patient states she also has anxiety. Patient states she was experiencing some shortness of breath earlier which she thinks could've been anxiety but because she's had a previous heart attack she wanted to get checked out. Patient denies any chest pain or palpitations. Patient denies any swelling to her legs or calf tenderness. Patient denies any back pain. Patient denies any diaphoretic episodes. Patient denies any recent fever chills or cough. - Related Data Home Medications Medication Instructions Recorded Confirmed Aspirin EC [Ecotrin Low Dose] 81 mg PO DAILY 02/11/19 11/17/21 Dicyclomine [Bentyl] 10 mg PO TID 04/20/21 11/17/21 Metoprolol Succinate (ER) [Toprol 50 mg PO DAILY 06/13/21 11/17/21 XL] Pantoprazole [Protonix] 40 mg PO DAILY 06/13/21 11/17/21 Brimonidine Tartrate [Alphagan P 1 drops BOTH EYES BID 10/14/21 11/17/21 0.2% Ophth Soln] Albuterol Nebulized [Ventolin 2.5 mg INHALATION RT-QID PRN 11/17/21 11/17/21 Nebulized] guaiFENesin-DM 100-10MG/5ML 5 ml PO TID PRN 11/17/21 11/17/21 [Robitussin DM] Previous Rx's Medication Instructions Recorded Atorvastatin [Lipitor] 80 mg PO HS 30 Days #30 tab 04/22/21 Isosorbide Mononitrate ER [Imdur] 30 mg PO DAILY 30 Days #30 04/22/21 tab.er.24h Allergies Allergy/AdvReac Type Severity Reaction Status Date / Time Influenza Virus Vaccines AdvReac Nausea & Verified 11/17/21 19:42 Vomiting morphine AdvReac Nausea & Verified 11/17/21 19:42 Vomiting Review of Systems ROS Statement: Those systems with pertinent positive or pertinent negative responses have been documented in the HPI. ROS Other: All systems not noted in ROS Statement are negative. Past Medical History Past Medical History: Asthma, Coronary Artery Disease (CAD), COPD, CVA/TIA, Hypertension, Liver Disease, Myocardial Infarction ([place]), Seizure Disorder, Vascular Disorder Additional Past Medical History / Comment(s): Pt recently admitted to [facility] on 04/16/21 acute exacerbation COPD/tracheobronchitis. 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 Last Myocardial Infarction Date:: aug 2018 History of Any Multi-Drug Resistant Organisms: None Reported Past Surgical History: Cholecystectomy, Heart Catheterization, Orthopedic Surgery Additional Past Surgical History / Comment(s): L caratid stent, bilateral knee surgeries for tendon repair, bartholian cyst removed bilateral wrists Past Anesthesia/Blood Transfusion Reactions: Motion Sickness Additional Past Anesthesia/Blood Transfusion Reaction / Comment(s): Pt has received blood without reaction. Past Psychological History: Anxiety, Depression Smoking Status: Current every day smoker, Light tobacco smoker Past Alcohol Use History: Abuse, Daily, Heavy Past Drug Use History: Marijuana - Past Family History Mother Family Medical History: Cancer, Congestive Heart Failure (CHF), Coronary Artery Disease (CAD), Hyperlipidemia Additional Family Medical History / Comment(s): Mother at age 85 from lung cancer. Father Family Medical History: Cancer, COPD Additional Family Medical History / Comment(s): Father at age 63 from lung cancer. Brother(s) Additional Family Medical History / Comment(s): Patient has a total of 7 siblings. 5 are alive without any major medical problems she is aware of. 2 siblings have one from alcohol abuse and 1. Coronary artery disease. Daughter(s) Additional Family Medical History / Comment(s): Patient has one daughter with no major medical problems. General Exam - General Exam Comments Initial Comments: GENERAL: Patient is well-developed and well-nourished. Patient is nontoxic and well- hydrated and is in mild distress. ENT: Neck is soft and supple. No significant lymphadenopathy is noted. Oropharynx is clear. Moist mucous membranes. Neck has full range of motion without eliciting any pain. EYES: The sclera were anicteric and conjunctiva were pink and moist. Extraocular movements were intact and pupils were equal round and reactive to light. Eyelids were unremarkable. PULMONARY: Unlabored respirations. Good breath sounds bilaterally. No audible rales rhonchi or wheezing was noted. CARDIOVASCULAR: There is a regular rate and rhythm without any murmurs gallops or rubs. ABDOMEN: Soft and nontender with normal bowel sounds. SKIN: Skin is clear with no lesions or rashes and otherwise unremarkable. NEUROLOGIC: Patient is alert and oriented x3. Cranial nerves II through XII are grossly intact. Motor and sensory are also intact. Normal speech, volume and content. Symmetrical smile. MUSCULOSKELETAL: Normal extremities with adequate strength and full range of motion. No lower ex tremity swelling or edema. No calf tenderness. LYMPHATICS: No significant lymphadenopathy is noted PSYCHIATRIC: Patient is mildly anxious Limitations: no limitations Course Vital Signs 11/17/21 11/17/21 15:48 15:55 Temperature 98.0 F Pulse Rate 109 H Respiratory 18 18 Rate Blood Pressure 108/49 O2 Sat by Pulse 96 Oximetry Medical Decision Making - Medical Decision Making EKG shows sinus tachycardia at 105 bpm NM interval is on a 42 QRS is 84 QT interval 340 QTC is 449. Patient's EKG shows inverted T waves in precordial leads V2 through V6 as well as 12 and aVL. Patient's chest x-ray shows no acute abnormality. Patient was alert and oriented 4. Patient was able to ambulate patient was eating and drinking. Patient had no complaints at this time - Lab Data Result diagrams: 11/17/21 16:56 11/17/21 16:56 Lab Results 11/17/21 11/17/21 11/17/21 Range/Units 16:56 16:56 16:56 WBC 12.7 H (3.8-10.6) k/uL RBC 5.18 (3.80-5.40) m/uL Hgb 15.8 (11.4-16.0) gm/dL Hct 46.6 H (34.0-46.0) % MCV 89.9 (80.0-100.0) fL MCH 30.5 (25.0-35.0) pg MCHC 34.0 (31.0-37.0) g/dL RDW 16.2 H (11.5-15.5) % Plt Count 273 D (150-450) k/uL MPV 7.6 Neutrophils % 61 % Lymphocytes % 32 % Monocytes % 3 % Eosinophils % 0 % Basophils % 1 % Neutrophils # 7.7 (1.3-7.7) k/uL Lymphocytes # 4.1 (1.0-4.8) k/uL Monocytes # 0.3 (0-1.0) k/uL Eosinophils # 0.1 (0-0.7) k/uL Basophils # 0.1 (0-0.2) k/uL Anisocytosis Slight PT 10.8 (9.0-12.0) sec INR 1.0 (<1.2) APTT 25.6 (22.0-30.0) sec D-Dimer 0.31 (<0.60) mg/L FEU Sodium 137 (137-145) mmol/L Potassium 3.8 (3.5-5.1) mmol/L Chloride 100 (98-107) mmol/L Carbon Dioxide 21 L (22-30) mmol/L Anion Gap 16 mmol/L BUN 11 (7-17) mg/dL Creatinine 0.57 (0.52-1.04) mg/dL Est GFR (CKD-EPI)AfAm >90 (>60 ml/min/1.73 sqM) Est GFR (CKD-EPI)NonAf >90 (>60 ml/min/1.73 sqM) Glucose 109 H (74-99) mg/dL Lactic Ac Sepsis Rflx Plasma Lactic Acid Camron (0.7-2.0) mmol/L Calcium 9.4 (8.4-10.2) mg/dL Magnesium 1.8 (1.6-2.3) mg/dL Total Bilirubin 0.4 (0.2-1.3) mg/dL AST 43 H (14-36) U/L ALT 32 (4-34) U/L Alkaline Phosphatase 202 H (38-126) U/L Troponin I (0.000-0.034) ng/mL NT-Pro-B Natriuret Pep pg/mL Total Protein 8.1 (6.3-8.2) g/dL Albumin 4.8 (3.5-5.0) g/dL Serum Alcohol mg/dL 11/17/21 11/17/21 11/17/21 Range/Units 16:56 16:56 16:56 WBC (3.8-10.6) k/uL RBC (3.80-5.40) m/uL Hgb (11.4-16.0) gm/dL Hct (34.0-46.0) % MCV (80.0-100.0) fL MCH (25.0-35.0) pg MCHC (31.0-37.0) g/dL RDW (11.5-15.5) % Plt Count (150-450) k/uL MPV Neutrophils % % Lymphocytes % % Monocytes % % Eosinophils % % Basophils % % Neutrophils # (1.3-7.7) k/uL Lymphocytes # (1.0-4.8) k/uL Monocytes # (0-1.0) k/uL Eosinophils # (0-0.7) k/uL Basophils # (0-0.2) k/uL Anisocytosis PT (9.0-12.0) sec INR (<1.2) APTT (22.0-30.0) sec D-Dimer (<0.60) mg/L FEU Sodium (137-145) mmol/L Potassium (3.5-5.1) mmol/L Chloride (98-107) mmol/L Carbon Dioxide (22-30) mmol/L Anion Gap mmol/L BUN (7-17) mg/dL Creatinine (0.52-1.04) mg/dL Est GFR (CKD-EPI)AfAm (>60 ml/min/1.73 sqM) Est GFR (CKD-EPI)NonAf (>60 ml/min/1.73 sqM) Glucose (74-99) mg/dL Lactic Ac Sepsis Rflx Plasma Lactic Acid Camron 3.6 H* (0.7-2.0) mmol/L Calcium (8.4-10.2) mg/dL Magnesium (1.6-2.3) mg/dL Total Bilirubin (0.2-1.3) mg/dL AST (14-36) U/L ALT (4-34) U/L Alkaline Phosphatase (38-126) U/L Troponin I <0.012 (0.000-0.034) ng/mL NT-Pro-B Natriuret Pep 74 pg/mL Total Protein (6.3-8.2) g/dL Albumin (3.5-5.0) g/dL Serum Alcohol mg/dL 11/17/21 11/17/21 Range/Units 17:26 18:30 WBC (3.8-10.6) k/uL RBC (3.80-5.40) m/uL Hgb (11.4-16.0) gm/dL Hct (34.0-46.0) % MCV (80.0-100.0) fL MCH (25.0-35.0) pg MCHC (31.0-37.0) g/dL RDW (11.5-15.5) % Plt Count (150-450) k/uL MPV Neutrophils % % Lymphocytes % % Monocytes % % Eosinophils % % Basophils % % Neutrophils # (1.3-7.7) k/uL Lymphocytes # (1.0-4.8) k/uL Monocytes # (0-1.0) k/uL Eosinophils # (0-0.7) k/uL Basophils # (0-0.2) k/uL Anisocytosis PT (9.0-12.0) sec INR (<1.2) APTT (22.0-30.0) sec D-Dimer (<0.60) mg/L FEU Sodium (137-145) mmol/L Potassium (3.5-5.1) mmol/L Chloride (98-107) mmol/L Carbon Dioxide (22-30) mmol/L Anion Gap mmol/L BUN (7-17) mg/dL Creatinine (0.52-1.04) mg/dL Est GFR (CKD-EPI)AfAm (>60 ml/min/1.73 sqM) Est GFR (CKD-EPI)NonAf (>60 ml/min/1.73 sqM) Glucose (74-99) mg/dL Lactic Ac Sepsis Rflx Y Plasma Lactic Acid Camron (0.7-2.0) mmol/L Calcium (8.4-10.2) mg/dL Magnesium (1.6-2.3) mg/dL Total Bilirubin (0.2-1.3) mg/dL AST (14-36) U/L ALT (4-34) U/L Alkaline Phosphatase (38-126) U/L Troponin I (0.000-0.034) ng/mL NT-Pro-B Natriuret Pep pg/mL Total Protein (6.3-8.2) g/dL Albumin (3.5-5.0) g/dL Serum Alcohol 224 H* mg/dL Disposition Clinical Impression: Alcohol intoxication Disposition: HOME SELF-CARE Instructions (If sedation given, give patient instructions): Alcohol Intoxication (ED) Is patient prescribed a controlled substance at d/c from ED?: No Referrals: Miya Johnson MD [Primary Care Provider] - 1-2 days Time of Disposition: 20:32
[2021-11-17 17:09] LABS: Anisocytosis Slight; Basophils # (A) 0.1 k/uL (0-0.2); Basophils % (A) 1 %; Eosinophils # (A) 0.1 k/uL (0-0.7); Eosinophils % (A) 0 %; HCT 46.6 % (34.0-46.0); HGB 15.8 gm/dL (11.4-16.0); Lymphocytes # (A) 4.1 k/uL (1.0-4.8); Lymphocytes % (A) 32 %; MCH 30.5 pg (25.0-35.0); MCV 89.9 fL (80.0-100.0); Mean Platelet Volume 7.6; Monocytes # (A) 0.3 k/uL (0-1.0); Monocytes % (A) 3 %; Neutrophils # (A) 7.7 k/uL (1.3-7.7); Neutrophils % (A) 61 %; RBC 5.18 m/uL (3.80-5.40); RDW 16.2 % (11.5-15.5); WBC 12.7 k/uL (3.8-10.6)
[2021-11-17 17:20] LABS: ALT 32 U/L (4-34); AST 43 U/L (14-36); African American GFR (CKD) >90 (>60 ml/min/1.73 sqM); Albumin 4.8 g/dL (3.5-5.0); Alkaline Phosphatase 202 U/L (38-126); Anion Gap 16 mmol/L; Blood Urea Nitrogen 11 mg/dL (7-17); Calcium 9.4 mg/dL (8.4-10.2); Carbon Dioxide 21 mmol/L (22-30); Chloride 100 mmol/L (98-107); Glucose 109 mg/dL (74-99); Magnesium 1.8 mg/dL (1.6-2.3); Non-African American GFR(CKD) >90 (>60 ml/min/1.73 sqM); Potassium 3.8 mmol/L (3.5-5.1); Sodium 137 mmol/L (137-145); Total Bilirubin 0.4 mg/dL (0.2-1.3); Total Protein 8.1 g/dL (6.3-8.2)
[2021-11-17 17:23] LABS: Partial Thromboplastin Time 25.6 sec (22.0-30.0); Prothrombin Time 10.8 sec (9.0-12.0)
[2021-11-17 17:24] LABS: Platelet Count 273 k/uL (150-450)
--- NOTE | 2021-11-17 17:43 | XR ---
EXAMINATION TYPE: XR chest 2V DATE OF EXAM: 11/17/2021 COMPARISON: 11/01/2021 HISTORY: Difficulty breathing TECHNIQUE: Frontal and lateral views of the chest are obtained. FINDINGS: There is no focal air space opacity, pleural effusion, or pneumothorax seen. The cardiac silhouette size is within normal limits. The osseous structures are intact. IMPRESSION: No acute cardiopulmonary process.
[2021-11-17] MEDS ORDERED: SODIUM CHLORIDE 0.9% 1,000 ML IV ONE (17:47)
[2021-11-17] MEDS ORDERED: SODIUM CHLORIDE 0.9% 500 ML 500 ML IV ONE (17:47)
== END 2021-11-18 00:34 | disposition home or self-care (01) ==
LOC: EC 15:41
DX: F10.129 Alcohol abuse with intoxication, unspecified (principal); I10 Essential (primary) hypertension; I25.2 Old myocardial infarction; J44.9 Chronic obstructive pulmonary disease, unspecified; I25.10 Atherosclerotic heart disease of native coronary artery without angina pectoris; F41.9 Anxiety disorder, unspecified; F32.A Depression, unspecified; F17.200 Nicotine dependence, unspecified, uncomplicated; F12.90 Cannabis use, unspecified, uncomplicated; Z79.82 Long term (current) use of aspirin; Z88.5 Allergy status to narcotic agent; Z88.7 Allergy status to serum and vaccine; Z86.73 Personal history of transient ischemic attack (TIA), and cerebral infarction without residual deficits; Z90.49 Acquired absence of other specified parts of digestive tract; Y90.7 Blood alcohol level of 200-239 mg/100 ml
CPT/HCPCS: 99285; 96374; 96375; 96361; 36415; 85379; 83880; 80053; 83605; 83735; 84484; 85025; 85610; 85730; 71046; G0480; J2060; J1885; 80320

== ENCOUNTER 2021-12-15 12:12 | Emergency (ER) | payer OTHER ==
[2021-12-15 12:25] VITALS: RESP 18; TEMP 98.8
[2021-12-15] MEDS ORDERED: KETOROLAC 15 MG/ML 1 ML VIAL IM STA (12:37)
--- NOTE | 2021-12-15 12:41 | ED ---
Back Pain HPI - General Chief Complaint: Back Pain/Injury Stated Complaint: Back pain Time Seen by Provider: 12/15/21 12:29 Source: patient, EMS, RN notes reviewed Mode of arrival: EMS Limitations: no limitations - History of Present Illness Initial Comments: This a 61-year-old female presents emergency Department with chief complaint of back pain. Patient states is a chronic issue she had no new injuries. Denies any bowel bladder incontinence or retention or saddle anesthesias. She states she is seen Dr. Brewer right now she is supposed to have testing but she is screaming for pain meds stating that he will not give her any pain meds until she completes her studies. She states is a chronic issue with no abdominal pain. Patient denies any fevers or chills no dysuria no hematuria patient has not tried any [id number]. - Related Data Home Medications Medication Instructions Recorded Confirmed Aspirin EC [Ecotrin Low Dose] 81 mg PO DAILY 02/11/19 11/17/21 Dicyclomine [Bentyl] 10 mg PO TID 04/20/21 11/17/21 Metoprolol Succinate (ER) [Toprol 50 mg PO DAILY 06/13/21 11/17/21 XL] Pantoprazole [Protonix] 40 mg PO DAILY 06/13/21 11/17/21 Brimonidine Tartrate [Alphagan P 1 drops BOTH EYES BID 10/14/21 11/17/21 0.2% Ophth Soln] Albuterol Nebulized [Ventolin 2.5 mg INHALATION RT-QID PRN 11/17/21 11/17/21 Nebulized] guaiFENesin-DM 100-10MG/5ML 5 ml PO TID PRN 11/17/21 11/17/21 [Robitussin DM] Previous Rx's Medication Instructions Recorded Atorvastatin [Lipitor] 80 mg PO HS 30 Days #30 tab 04/22/21 Isosorbide Mononitrate ER [Imdur] 30 mg PO DAILY 30 Days #30 04/22/21 tab.er.24h Allergies Allergy/AdvReac Type Severity Reaction Status Date / Time Influenza Virus Vaccines AdvReac Nausea & Verified 11/17/21 19:42 Vomiting morphine AdvReac Nausea & Verified 11/17/21 19:42 Vomiting Review of Systems ROS Statement: Those systems with pertinent positive or pertinent negative responses have been documented in the HPI. ROS Other: All systems not noted in ROS Statement are negative. Past Medical History Past Medical History: Asthma, Coronary Artery Disease (CAD), COPD, CVA/TIA, Hypertension, Liver Disease, Myocardial Infarction ([place]), Seizure Disorder, Vascular Disorder Additional Past Medical History / Comment(s): Pt recently admitted to [facility] on 04/16/21 acute exacerbation COPD/tracheobronchitis. 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 Last Myocardial Infarction Date:: aug 2018 History of Any Multi-Drug Resistant Organisms: None Reported Past Surgical History: Cholecystectomy, Heart Catheterization, Orthopedic Surgery Additional Past Surgical History / Comment(s): L caratid stent, bilateral knee surgeries for tendon repair, bartholian cyst removed bilateral wrists Past Anesthesia/Blood Transfusion Reactions: Motion Sickness Additional Past Anesthesia/Blood Transfusion Reaction / Comment(s): Pt has received blood without reaction. Past Psychological History: Anxiety, Depression Smoking Status: Current every day smoker, Light tobacco smoker Past Alcohol Use History: Abuse, Daily, Heavy Past Drug Use History: Marijuana - Past Family History Mother Family Medical History: Cancer, Congestive Heart Failure (CHF), Coronary Artery Disease (CAD), Hyperlipidemia Additional Family Medical History / Comment(s): Mother at age 85 from lung cancer. Father Family Medical History: Cancer, COPD Additional Family Medical History / Comment(s): Father at age 63 from lung cancer. Brother(s) Additional Family Medical History / Comment(s): Patient has a total of 7 siblings. 5 are alive without any major medical problems she is aware of. 2 siblings have one from alcohol abuse and 1. Coronary artery disease. Daughter(s) Additional Family Medical History / Comment(s): Patient has one daughter with no major medical problems. General Exam Limitations: no limitations General appearance: alert, in no apparent distress Head exam: Present: atraumatic, normocephalic, normal inspection Eye exam: Present: normal appearance, PERRL, EOMI. Absent: scleral icterus, conjunctival injection, periorbital swelling ENT exam: Present: normal exam, mucous membranes moist Neck exam: Present: normal inspection, full ROM. Absent: tenderness, mening ismus, lymphadenopathy Respiratory exam: Present: normal lung sounds bilaterally. Absent: respiratory distress, wheezes, rales, rhonchi, stridor Cardiovascular Exam: Present: regular rate, normal rhythm, normal heart sounds. Absent: systolic murmur, diastolic murmur, rubs, gallop, clicks GI/Abdominal exam: Present: soft, normal bowel sounds. Absent: distended, tenderness, guarding, rebound, rigid Extremities exam: Present: other (Lower extremity strength equal bilaterally tenderness neurovascular intact equal and equal warmth) Back exam: Present: full ROM, tenderness (Patient reports diffuse tenderness with no localized tenderness worsened usual), paraspinal tenderness. Absent: vertebral tenderness Neurological exam: Present: alert, oriented X3, CN II-XII intact, reflexes normal. Absent: motor sensory deficit Course Vital Signs 12/15/21 12:22 Temperature 98.8 F Pulse Rate 103 H Respiratory 18 Rate Blood Pressure 141/98 O2 Sat by Pulse 98 Oximetry Medical Decision Making - Medical Decision Making patient has chronic back issues with no acute injury. Patient is only requesting narcotic pain meds and explained that she needs to follow up with her PCP or neurologist for chronic pain meds. She understands patient did receive Toradol be discharged in stable condition return parameters were discussed. Disposition Clinical Impression: Chronic back pain Disposition: HOME SELF-CARE Condition: Stable Instructions (If sedation given, give patient instructions): Chronic Back Pain ([place]) Additional Instructions: Please follow up with her primary care physician or neurologist for pain medication.Please return to the Emergency Department if symptoms worsen or any other concerns. Is patient prescribed a controlled substance at d/c from ED?: No Referrals: Miya Johnson MD [Primary Care Provider] - 1-2 days Time of Disposition: 12:41
[2021-12-15 13:16] VITALS: BP 110/82; PULSE 85
== END 2021-12-15 13:38 | disposition home or self-care (01) ==
LOC: EC 12:12
DX: M54.9 Dorsalgia, unspecified (principal); G89.29 Other chronic pain; J45.909 Unspecified asthma, uncomplicated; I25.10 Atherosclerotic heart disease of native coronary artery without angina pectoris; I10 Essential (primary) hypertension; I25.2 Old myocardial infarction; F41.9 Anxiety disorder, unspecified; F32.A Depression, unspecified; F17.200 Nicotine dependence, unspecified, uncomplicated; F12.90 Cannabis use, unspecified, uncomplicated; Z79.82 Long term (current) use of aspirin; Z88.5 Allergy status to narcotic agent; Z88.7 Allergy status to serum and vaccine; Z86.73 Personal history of transient ischemic attack (TIA), and cerebral infarction without residual deficits; Z90.49 Acquired absence of other specified parts of digestive tract
CPT/HCPCS: 99283; 96372; J1885

== ENCOUNTER 2022-01-13 14:40 | Emergency (ER) | payer OTHER ==
[2022-01-13 15:07] VITALS: RESP 18
--- NOTE | 2022-01-13 16:09 | ED ---
General Adult HPI - General Source: patient, EMS, RN notes reviewed, old records reviewed Mode of arrival: EMS Limitations: no limitations - History of Present Illness -: days(s) (5) Location: chest Severity scale (1-10): 0 Consistency: intermittent Improves with: none Worsens with: other (cough) Associated Symptoms: cough <Gibran Rosales - Last Filed: 01/13/22 20:00> <Lesia Salas - Last Filed: 01/15/22 16:06> - General Chief complaint: Shortness of Breath Stated complaint: MARY ALICE Time Seen by Provider: 01/13/22 16:00 - History of Present Illness Initial comments: 61-year-old female presents with 5 days of cough and shortness of breath. Patient states that she normally smokes a pack a day. She also drinks 2 glasses of wine a day to help with her the from degenerative disc disease in her back. She denies any fevers, nausea vomiting or diarrhea. She states that she did receive coronavirus vaccine and pneumonia vaccine. She does have a history of asthma, bronchitis, hypertension, [place] and seizures. (Gibran Rosales) - Related Data Home Medications Medication Instructions Recorded Confirmed Aspirin EC [Ecotrin Low Dose] 81 mg PO DAILY 02/11/19 11/17/21 Dicyclomine [Bentyl] 10 mg PO TID 04/20/21 11/17/21 Metoprolol Succinate (ER) [Toprol 50 mg PO DAILY 06/13/21 11/17/21 XL] Pantoprazole [Protonix] 40 mg PO DAILY 06/13/21 11/17/21 Brimonidine Tartrate [Alphagan P 1 drops BOTH EYES BID 10/14/21 11/17/21 0.2% Ophth Soln] Albuterol Nebulized [Ventolin 2.5 mg INHALATION RT-QID PRN 11/17/21 11/17/21 Nebulized] guaiFENesin-DM 100-10MG/5ML 5 ml PO TID PRN 11/17/21 11/17/21 [Robitussin DM] Previous Rx's Medication Instructions Recorded Atorvastatin [Lipitor] 80 mg PO HS 30 Days #30 tab 04/22/21 Isosorbide Mononitrate ER [Imdur] 30 mg PO DAILY 30 Days #30 04/22/21 tab.er.24h predniSONE 50 mg PO DAILY #5 tab 01/13/22 Allergies Allergy/AdvReac Type Severity Reaction Status Date / Time Influenza Virus Vaccines AdvReac Nausea & Verified 01/13/22 14:50 Vomiting morphine AdvReac Nausea & Verified 01/13/22 14:50 Vomiting Review of Systems ROS Other: All systems not noted in ROS Statement are negative. <BobbyGibran - Last Filed: 01/13/22 20:00> ROS Other: All systems not noted in ROS Statement are negative. <Lesia Salas - Last Filed: 01/15/22 16:06> ROS Statement: Those systems with pertinent positive or pertinent negative responses have been documented in the HPI. Past Medical History Past Medical History: Asthma, Coronary Artery Disease (CAD), COPD, CVA/TIA, Hypertension, Liver Disease, Myocardial Infarction (TX), Seizure Disorder, Vascular Disorder Additional Past Medical History / Comment(s): Pt recently admitted to [facility] on 04/16/21 acute exacerbation COPD/tracheobronchitis. 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 Last Myocardial Infarction Date:: aug 2018 History of Any Multi-Drug Resistant Organisms: None Reported Past Surgical History: Cholecystectomy, Heart Catheterization, Orthopedic Surgery Additional Past Surgical History / Comment(s): L caratid stent, bilateral knee surgeries for tendon repair, bartholian cyst removed bilateral wrists Past Anesthesia/Blood Transfusion Reactions: Motion Sickness Additional Past Anesthesia/Blood Transfusion Reaction / Comment(s): Pt has received blood without reaction. Past Psychological History: Anxiety, Depression Smoking Status: Current every day smoker, Light tobacco smoker Past Alcohol Use History: Abuse, Daily, Heavy Past Drug Use History: Marijuana - Past Family History Mother Family Medical History: Cancer, Congestive Heart Failure (CHF), Coronary Artery Disease (CAD), Hyperlipidemia Additional Family Medical History / Comment(s): Mother at age 85 from lung cancer. Father Family Medical History: Cancer, COPD Additional Family Medical History / Comment(s): Father at age 63 from lung cancer. Brother(s) Additional Family Medical History / Comment(s): Patient has a total of 7 siblings. 5 are alive without any major medical problems she is aware of. 2 siblings have one from alcohol abuse and 1. Coronary artery disease. Daughter(s) Additional Family Medical History / Comment(s): Patient has one daughter with no major medical problems. <Gibran Rosales - Last Filed: 01/13/22 20:00> General Exam Limitations: no limitations General appearance: alert, in no apparent distress Head exam: Present: atraumatic ENT exam: Present: normal oropharynx, mucous membranes moist Neck exam: Present: full ROM. Absent: tenderness, meningismus Respiratory exam: Present: normal lung sounds bilaterally. Absent: respiratory distress, wheezes, rales, rhonchi, stridor, chest wall tenderness, accessory muscle use, decreased breath sounds Cardiovascular Exam: Present: regular rate, normal heart sounds GI/Abdominal exam: Present: soft. Absent: tenderness Extremities exam: Present: normal capillary refill. Absent: pedal edema Back exam: Present: normal inspection, full ROM. Absent: tenderness, CVA tenderness (R), CVA tenderness (L) Neurological exam: Present: alert, oriented X3 Psychiatric exam: Present: normal affect, normal mood Skin exam: Present: warm, dry, intact. Absent: cyanosis, diaphoretic, pallor <Gibran Rosales - Last Filed: 01/13/22 20:00> Course Vital Signs 01/13/22 01/13/22 01/13/22 14:43 14:50 18:06 Temperature 98.2 F 98.8 F Pulse Rate 92 94 Respiratory 18 18 18 Rate Blood Pressure 108/86 128/90 O2 Sat by Pulse 97 Oximetry 01/13/22 01/13/22 18:28 18:36 Temperature Pulse Rate 94 90 Respiratory 18 18 Rate Blood Pressure O2 Sat by Pulse Oximetry Medical Decision Making <Gibran Rosales - Last Filed: 01/13/22 20:00> <Lesia Salas - Last Filed: 01/15/22 16:06> - Medical Decision Making 61-year-old female presents with 5 days of cough and shortness of breath. She is a pack a day smoker. She does have a history of asthma and bronchitis and was told in the past she may have COPD. Influenza, coronavirus swabs are negative. X-rays negative for infiltrate. Lung sounds are clear to auscultation. Oxygen saturation is 97% , she is afebrile. She will be treated for bronchitis with prednisone for 5 days. At this time I do not believe that this is infectious in nature. Antibiotics were not prescribed. I encouraged the patient to stop smoking. Instructed her to follow-up with her primary care doctor next week. Return to the emergency room with any new or concerning symptoms including increasing difficulty breathing, fevers or chest pain. Patient is agreeable to this plan of care. Case discussed with Dr. Salas (Gibran Rosales) I was available for consultation in the emergency department. The history and physical exam were done by the midlevel provider. I was consulted for this patients care. I reviewed the case with the midlevel provider and based on their presentation of the patient, I agree with the assessment, medical decision making and plan of care as documented. Chart was dictated using [employer] dictation software. Attempts were made to correct any dictation errors however some typographical errors may persist. (Lesia Salas) - Lab Data Lab Results 01/13/22 Range/Units 16:13 Influenza Type A (PCR) Not Detected (Not Detectd) Influenza Type B (PCR) Not Detected (Not Detectd) RSV (PCR) Not Detected (Not Detectd) SARS-CoV-2 (PCR) Not Detected (Not Detectd) Disposition Is patient prescribed a controlled substance at d/c from ED?: No Time of Disposition: 18:00 <Gibran Rosales - Last Filed: 01/13/22 20:00> <Lesia Salas - Last Filed: 01/15/22 16:06> Clinical Impression: Bronchitis Disposition: HOME SELF-CARE Condition: Good Instructions (If sedation given, give patient instructions): Acute Bronchitis (ED) Additional Instructions: Take 50 mg of prednisone once a day for the next 5 days. Continue your breathing treatments at home. Follow-up with your primary care doctor within the next week. Return to the emergency room with any new or concerning symptoms including worsening shortness of breath, fevers or chest pain. Prescriptions: predniSONE 50 mg PO DAILY #5 tab Referrals: Miya Johnson MD [Primary Care Provider] - 1-2 days
--- NOTE | 2022-01-13 16:49 | XR ---
EXAMINATION TYPE: XR chest 2V DATE OF EXAM: 01/13/2022 COMPARISON: 11/17/2021 HISTORY: Difficulty breathing TECHNIQUE: 2 views FINDINGS: Heart and mediastinum are normal. Lungs are clear. Diaphragm is normal. Bony thorax appears normal. IMPRESSION: Normal chest. No adverse change.
[2022-01-13 16:55] LABS: Influenza A Not Detected (Not Detectd); Influenza B Not Detected (Not Detectd)
[2022-01-13 18:07] VITALS: BP 128/90; TEMP 98.8
[2022-01-13] MEDS ORDERED: IPRATROPIUM-ALBUTEROL 3 ML NEB INHALATION STA (18:19)
[2022-01-13 18:36] VITALS: PULSE 90
== END 2022-01-13 18:53 | disposition home or self-care (01) ==
LOC: EC 14:40
DX: J20.9 Acute bronchitis, unspecified (principal); I25.10 Atherosclerotic heart disease of native coronary artery without angina pectoris; J44.9 Chronic obstructive pulmonary disease, unspecified; I10 Essential (primary) hypertension; I25.2 Old myocardial infarction; F41.9 Anxiety disorder, unspecified; F32.A Depression, unspecified; F12.90 Cannabis use, unspecified, uncomplicated; F17.210 Nicotine dependence, cigarettes, uncomplicated; Z20.822 Contact with and (suspected) exposure to COVID-19; Z79.82 Long term (current) use of aspirin; Z88.5 Allergy status to narcotic agent; Z88.7 Allergy status to serum and vaccine; Z86.73 Personal history of transient ischemic attack (TIA), and cerebral infarction without residual deficits; Z90.49 Acquired absence of other specified parts of digestive tract
CPT/HCPCS: 71046; 87636; 94640; 99285

== ENCOUNTER 2022-02-14 12:22 | Emergency (ER) | payer OTHER ==
[2022-02-14 12:26] VITALS: TEMP 98.9
[2022-02-14] MEDS ORDERED: SODIUM CHLORIDE 0.9% 500 ML 500 ML IV ONE (12:40)
--- NOTE | 2022-02-14 12:40 | ED ---
General Adult HPI - General Chief complaint: Extremity Problem,Nontraumatic Stated complaint: Right arm numbness Time Seen by Provider: 02/14/22 12:34 Source: patient, RN notes reviewed, old records reviewed Mode of arrival: ambulatory Limitations: no limitations - History of Present Illness Initial comments: 62-year-old female presenting for evaluation of right-sided weakness and numbness. Patient states her symptoms have been present for the past 2 years. She had previous stroke with residual right-sided weakness. She admits to alcohol consumption today. She also reports that there is numbness to her right arm. She states she previously has had numbness as well as weakness the weakness is unchanged . She denies headache. Denies chest pain. Denies fever. She is following with neurology as an outpatient. - Related Data Home Medications Medication Instructions Recorded Confirmed Aspirin EC [Ecotrin Low Dose] 81 mg PO DAILY 02/11/19 02/14/22 Dicyclomine [Bentyl] 10 mg PO TID 04/20/21 02/14/22 Metoprolol Succinate (ER) [Toprol 50 mg PO DAILY 06/13/21 02/14/22 XL] Pantoprazole [Protonix] 40 mg PO DAILY 06/13/21 02/14/22 Albuterol Nebulized [Ventolin 2.5 mg INHALATION RT-Q6H PRN 11/17/21 02/14/22 Nebulized] Fluticasone Nasal [place] [Flonase 1 spray EA NOSTRIL DAILY 02/14/22 02/14/22 Nasal [place]] Lidocaine 5% Patch [Lidoderm] 1 patch TOPICAL DAILY 02/14/22 02/14/22 Magnesium Oxide 400 mg PO DAILY 02/14/22 02/14/22 Melatonin 5 mg PO HS 02/14/22 02/14/22 Spironolactone 100 mg PO DAILY 02/14/22 02/14/22 Thiamine [Vitamin B-1] 100 mg PO DAILY 02/14/22 02/14/22 Previous Rx's Medication Instructions Recorded Atorvastatin [Lipitor] 80 mg PO HS 30 Days #30 tab 04/22/21 Isosorbide Mononitrate ER [Imdur] 30 mg PO DAILY 30 Days #30 04/22/21 tab.er.24h Allergies Allergy/AdvReac Type Severity Reaction Status Date / Time Influenza Virus Vaccines AdvReac Nausea & Verified 02/14/22 12:26 Vomiting morphine AdvReac Nausea & Verified 02/14/22 12:26 Vomiting Review of Systems ROS Statement: Those systems with pertinent positive or pertinent negative responses have been documented in the HPI. ROS Other: All systems not noted in ROS Statement are negative. Past Medical History Past Medical History: Asthma, Coronary Artery Disease (CAD), COPD, CVA/TIA, Hypertension, Liver Disease, Myocardial Infarction (TX), Seizure Disorder, Vascular Disorder Additional Past Medical History / Comment(s): Pt recently admitted to [facility] on 04/16/21 acute exacerbation COPD/tracheobronchitis. 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 Last Myocardial Infarction Date:: aug 2018 History of Any Multi-Drug Resistant Organisms: None Reported Past Surgical History: Cholecystectomy, Heart Catheterization, Orthopedic Surgery Additional Past Surgical History / Comment(s): L caratid stent, bilateral knee surgeries for tendon repair, bartholian cyst removed bilateral wrists Past Anesthesia/Blood Transfusion Reactions: Motion Sickness Additional Past Anesthesia/Blood Transfusion Reaction / Comment(s): Pt has received blood without reaction. Past Psychological History: Anxiety, Depression Smoking Status: Current every day smoker, Light tobacco smoker Past Alcohol Use History: Abuse, Daily, Heavy Past Drug Use History: Marijuana - Past Family History Mother Family Medical History: Cancer, Congestive Heart Failure (CHF), Coronary Artery Disease (CAD), Hyperlipidemia Additional Family Medical History / Comment(s): Mother at age 85 from lung cancer. Father Family Medical History: Cancer, COPD Additional Family Medical History / Comment(s): Father at age 63 from lung cancer. Brother(s) Additional Family Medical History / Comment(s): Patient has a total of 7 siblings. 5 are alive without any major medical problems she is aware of. 2 siblings have one from alcohol abuse and 1. Coronary artery disease. Daughter(s) Additional Family Medical History / Comment(s): Patient has one daughter with no major medical problems. General Exam Limitations: no limitations General appearance: alert, appears intoxicated Head exam: Present: atraumatic, normocephalic Eye exam: Present: normal appearance, PERRL, EOMI ENT exam: Present: mucous membranes dry Neck exam: Present: normal inspection. Absent: tenderness, meningismus Respiratory exam: Present: normal lung sounds bilaterally. Absent: respiratory distress, wheezes Cardiovascular Exam: Present: regular rate, normal rhythm GI/Abdominal exam: Present: soft. Absent: distended, tenderness, guarding Extremities exam: Present: normal inspection, normal capillary refill. Absent: calf tenderness Neurological exam: Present: alert, oriented X3, CN II-XII intact, normal gait, motor sensory deficit (Some drift in the right lower extremity, no drift in the upper extremities,) Psychiatric exam: Present: depressed Skin exam: Present: warm, dry, intact. Absent: cyanosis, diaphoretic, erythema Course Vital Signs 02/14/22 02/14/22 12:22 14:30 Temperature 98.9 F Pulse Rate 98 94 Respiratory 18 16 Rate Blood Pressure 155/109 120/96 O2 Sat by Pulse 96 100 Oximetry EKG Findings - EKG Comments: EKG Findings:: EKG: Sinus rhythm rate of 89, CT interval 143, QRS duration 88, QTC 409 T-wave inversion in the precordial leads similar findings compared to previous EKG obtained in November of this year. Medical Decision Making - Medical Decision Making 62-year-old female with previous CVA, residual right-sided weakness and alcohol use. Patient presents intoxicated. She is complaining of right-sided weakness and numbness which is been present for the past 2 years. Patient hemodynamically stable. She is in sinus rhythm. Patient's undergoes imaging of the brain which shows of previously noted colloid cyst without acute findings noted. No hemorrhage or mass effect. She has a normal CBC, normal CMP, alcohol level is 280. I did discuss possibility of observation for this patient however she refers discharge at this time. Stating that none of her symptoms are new. She will continue to follow with neurology as an outpatient. Her brother is able to pick her up. ambulatory in the emergency department. No new complaints. Eager for discharge. - Lab Data Result diagrams: 02/14/22 12:57 02/14/22 12:57 Lab Results 02/14/22 02/14/22 02/14/22 Range/Units 12:57 12:57 12:57 WBC 9.7 (3.8-10.6) k/uL RBC 5.16 (3.80-5.40) m/uL Hgb 15.4 (11.4-16.0) gm/dL Hct 47.0 H (34.0-46.0) % MCV 91.1 (80.0-100.0) fL MCH 29.9 (25.0-35.0) pg MCHC 32.8 (31.0-37.0) g/dL RDW 16.1 H (11.5-15.5) % Plt Count 320 (150-450) k/uL MPV 8.0 Neutrophils % 60 % Lymphocytes % 28 % Monocytes % 5 % Eosinophils % 1 % Basophils % 2 % Neutrophils # 5.8 (1.3-7.7) k/uL Lymphocytes # 2.7 (1.0-4.8) k/uL Monocytes # 0.5 (0-1.0) k/uL Eosinophils # 0.1 (0-0.7) k/uL Basophils # 0.2 (0-0.2) k/uL Anisocytosis Slight PT 11.8 (9.0-12.0) sec INR 1.1 (<1.2) APTT 25.9 (22.0-30.0) sec Sodium 141 (137-145) mmol/L Potassium 4.3 (3.5-5.1) mmol/L Chloride 100 (98-107) mmol/L Carbon Dioxide 26 (22-30) mmol/L Anion Gap 15 mmol/L BUN 9 (7-17) mg/dL Creatinine 0.65 (0.52-1.04) mg/dL Est GFR (CKD-EPI)AfAm >90 (>60 ml/min/1.73 sqM) Est GFR (CKD-EPI)NonAf >90 (>60 ml/min/1.73 sqM) Glucose 113 H (74-99) mg/dL Calcium 9.1 (8.4-10.2) mg/dL Total Bilirubin 0.5 (0.2-1.3) mg/dL AST 117 H (14-36) U/L ALT 83 H (4-34) U/L Alkaline Phosphatase 210 H (38-126) U/L Total Protein 7.7 (6.3-8.2) g/dL Albumin 4.5 (3.5-5.0) g/dL Serum Alcohol 280 H* mg/dL Disposition Clinical Impression: Alcohol intoxication, CVA, old, alterations of sensations Disposition: HOME SELF-CARE Condition: Fair Instructions (If sedation given, give patient instructions): Alcohol Intoxication (DC), Stroke (DC) Additional Instructions: Please follow up with your neurologist. Please return to the emergency department with worsening or changing symptoms. Is patient prescribed a controlled substance at d/c from ED?: No Referrals: Miya Johnson MD [Primary Care Provider] - 1-2 days Chandler Brewer MD [STAFF PHYSICIAN] - 1-2 days Time of Disposition: 14:56
[2022-02-14 13:26] LABS: Anisocytosis Slight; Basophils # (A) 0.2 k/uL (0-0.2); Basophils % (A) 2 %; Eosinophils # (A) 0.1 k/uL (0-0.7); Eosinophils % (A) 1 %; HGB 15.4 gm/dL (11.4-16.0); Lymphocytes # (A) 2.7 k/uL (1.0-4.8); Lymphocytes % (A) 28 %; MCH 29.9 pg (25.0-35.0); MCHC 32.8 g/dL (31.0-37.0); MCV 91.1 fL (80.0-100.0); Monocytes # (A) 0.5 k/uL (0-1.0); Monocytes % (A) 5 %; Neutrophils # (A) 5.8 k/uL (1.3-7.7); Neutrophils % (A) 60 %; Platelet Count 320 k/uL (150-450); RBC 5.16 m/uL (3.80-5.40); RDW 16.1 % (11.5-15.5); WBC 9.7 k/uL (3.8-10.6)
[2022-02-14 13:30] LABS: ALT 83 U/L (4-34); AST 117 U/L (14-36); African American GFR (CKD) >90 (>60 ml/min/1.73 sqM); Albumin 4.5 g/dL (3.5-5.0); Alkaline Phosphatase 210 U/L (38-126); Anion Gap 15 mmol/L; Blood Urea Nitrogen 9 mg/dL (7-17); Calcium 9.1 mg/dL (8.4-10.2); Carbon Dioxide 26 mmol/L (22-30); Chloride 100 mmol/L (98-107); Glucose 113 mg/dL (74-99); Non-African American GFR(CKD) >90 (>60 ml/min/1.73 sqM); Potassium 4.3 mmol/L (3.5-5.1); Sodium 141 mmol/L (137-145); Total Bilirubin 0.5 mg/dL (0.2-1.3); Total Protein 7.7 g/dL (6.3-8.2)
[2022-02-14 13:32] LABS: INR 1.1 (<1.2); Partial Thromboplastin Time 25.9 sec (22.0-30.0); Prothrombin Time 11.8 sec (9.0-12.0)
[2022-02-14 13:33] LABS: Alcohol 280 mg/dL
--- NOTE | 2022-02-14 13:49 | CT ---
EXAMINATION TYPE: CT brain wo con DATE OF EXAM: 02/14/2022 COMPARISON: 10/14/2021 INDICATION: RT sided weakness DLP: 1074.4 mGycm, Automated exposure control for dose reduction was used. CONTRAST: None CT of the brain is performed utilizing 3 mm thick sections through the posterior fossa and 3 mm thick sections through the remaining calvarium. Study is performed within 24 hours of arrival to the hosp [facility]. No abnormal hyperdensity is present to suggest an acute intracranial hemorrhage. There is a hyperdense lesion at the foramen of Yu level in the third ventricle. This measures 1.2 x 1.3 cm and was present previously. No lateral ventricular dilatation or temporal horn dilatation i s evident. Findings are likely related to a colloid cyst. A punctate calcification may reside within the right basal ganglion. This is stable. No acute infarcts are evident. There is white matter hypodensity through the left centrum semiovale p resent previously. Chronic white matter ischemic change may be present. Ventricles and sulci are appropriate for the patient age. Paranasal sinuses and mastoid air cells within the [id number] are clear. IMPRESSIONS: 1. Stable appearance of suspected colloid cyst at the foramen of Yu. No hydrocephalus is eviden t. 2. Chronic white matter changes. 3. No suspicious acute changes evident. If symptoms persist MRI could be performed.
[2022-02-14 14:39] VITALS: BP 120/96; PULSE 94; RESP 16
== END 2022-02-14 15:30 | disposition home or self-care (01) ==
LOC: EC 12:22
DX: R20.8 Other disturbances of skin sensation (principal); F10.129 Alcohol abuse with intoxication, unspecified; I25.10 Atherosclerotic heart disease of native coronary artery without angina pectoris; J44.9 Chronic obstructive pulmonary disease, unspecified; I10 Essential (primary) hypertension; I25.2 Old myocardial infarction; F41.9 Anxiety disorder, unspecified; F32.A Depression, unspecified; F17.290 Nicotine dependence, other tobacco product, uncomplicated; F12.90 Cannabis use, unspecified, uncomplicated; Z86.73 Personal history of transient ischemic attack (TIA), and cerebral infarction without residual deficits; Z79.82 Long term (current) use of aspirin; Z88.5 Allergy status to narcotic agent; Z88.7 Allergy status to serum and vaccine; Z86.69 Personal history of other diseases of the nervous system and sense organs; Z90.49 Acquired absence of other specified parts of digestive tract; Y90.8 Blood alcohol level of 240 mg/100 ml or more
CPT/HCPCS: 99285; 36415; 93005; 80053; 85025; 85610; 85730; 70450; G0480; 80320

== ENCOUNTER 2022-03-15 11:30 | Emergency (ER) | payer OTHER ==
[2022-03-15] MEDS ORDERED: HYDROmorphone 1 MG/ML 1 ML SYRINGE IM STA (11:57)
[2022-03-15] MEDS ORDERED: ONDANSETRON 4 MG/2 ML VIAL IVP STA (13:15)
[2022-03-15] MEDS ORDERED: ONDANSETRON 4 MG/2 ML VIAL IM STA (14:00)
--- NOTE | 2022-03-15 14:05 | XR ---
EXAMINATION TYPE: XR ribs LT w pa chest xray DATE OF EXAM: 03/15/2022 CLINICAL HISTORY: Chest and left-sided rib pain after vomiting. TECHNIQUE: Single frontal view of the chest is obtained. A frontal and oblique images of the left-nannette ed ribs. COMPARISON: Chest x-ray January 13, 2022 FINDINGS: Lungs remain clear without pleural effusion or pneumothorax seen. The cardiac silhouette s ize remains within normal limits. The osseous structures are intact. No acute displaced left-sided rib fractures are seen. Overlying soft tissue is unremarkable. Left upp er abdominal vascular calcifications are present. IMPRESSION: 1. No acute cardiopulmonary process. 2. No acute displaced left-sided rib fractures.
--- NOTE | 2022-03-15 14:11 | ED ---
General Adult HPI - General Chief complaint: Nausea/Vomiting/Diarrhea Stated complaint: rib pain Time Seen by Provider: 03/15/22 11:43 Source: patient, EMS, RN notes reviewed Mode of arrival: EMS Limitations: no limitations - History of Present Illness Initial comments: This is a 62-year-old female presents emergency Department with chief complaint of Left rib pain. Patient states that she was coughing so hard that she felt something pop in her ribs. Patient states she has pain with movement. Patient states she is nothing into her abdomen. No coffee-ground/chest pain. Patient states that she sits still and does not a deep breath symptoms are much better. Patient states that she coughs so much at home as she is a smoker, has COPD and states that she has multiple problems at her home. Patient denies fevers chills patient denies any headache or dizziness patient offers no complaints. - Related Data Home Medications Medication Instructions Recorded Confirmed Aspirin EC [Ecotrin Low Dose] 81 mg PO DAILY 02/11/19 03/15/22 Metoprolol Succinate (ER) [Toprol 50 mg PO DAILY 06/13/21 03/15/22 XL] Pantoprazole [Protonix] 40 mg PO DAILY 06/13/21 03/15/22 Fluticasone Nasal [place] [Flonase 1 spray EA NOSTRIL DAILY 02/14/22 03/15/22 Nasal [place]] Magnesium Oxide 400 mg PO DAILY 02/14/22 03/15/22 Thiamine [Vitamin B-1] 100 mg PO BID 02/14/22 03/15/22 Brimonidine Tartrate [Alphagan P 1 drops BOTH EYES BID 03/15/22 03/15/22 0.2% Ophth Soln] Budesonide/Formoterol Fumarate 2 puff INHALATION RT-BID 03/15/22 03/15/22 [Symbicort 160-4.5 Mcg Inhaler] Ipratropium-Albuterol Nebulize 3 ml INHALATION RT-Q4H PRN 03/15/22 03/15/22 [Duoneb 0.5 mg-3 mg/3 ml Soln] Previous Rx's Medication Instructions Recorded Atorvastatin [Lipitor] 80 mg PO HS 30 Days #30 tab 04/22/21 Isosorbide Mononitrate ER [Imdur] 30 mg PO DAILY 30 Days #30 04/22/21 tab.er.24h Allergies Allergy/AdvReac Type Severity Reaction Status Date / Time Influenza Virus Vaccines AdvReac Nausea & Verified 03/15/22 13:13 Vomiting morphine AdvReac Nausea & Verified 03/15/22 13:13 Vomiting Review of Systems ROS Statement: Those systems with pertinent positive or pertinent negative responses have been documented in the HPI. ROS Other: All systems not noted in ROS Statement are negative. Past Medical History Past Medical History: Asthma, Coronary Artery Disease (CAD), COPD, CVA/TIA, Hypertension, Liver Disease, Myocardial Infarction ([place]), Seizure Disorder, Vascular Disorder Additional Past Medical History / Comment(s): Pt recently admitted to [facility] on 04/16/21 acute exacerbation COPD/tracheobronchitis. 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 Last Myocardial Infarction Date:: aug 2018 History of Any Multi-Drug Resistant Organisms: None Reported Past Surgical History: Cholecystectomy, Heart Catheterization, Orthopedic Surgery Additional Past Surgical History / Comment(s): L caratid stent, bilateral knee surgeries for tendon repair, bartholian cyst removed bilateral wrists Past Anesthesia/Blood Transfusion Reactions: Motion Sickness Additional Past Anesthesia/Blood Transfusion Reaction / Comment(s): Pt has received blood without reaction. Past Psychological History: Anxiety, Depression Smoking Status: Current every day smoker, Light tobacco smoker Past Alcohol Use History: Abuse, Daily, Heavy Past Drug Use History: Marijuana - Past Family History Mother Family Medical History: Cancer, Congestive Heart Failure (CHF), Coronary Artery Disease (CAD), Hyperlipidemia Additional Family Medical History / Comment(s): Mother at age 85 from lung cancer. Father Family Medical History: Cancer, COPD Additional Family Medical History / Comment(s): Father at age 63 from lung cancer. Brother(s) Additional Family Medical History / Comment(s): Patient has a total of 7 siblings. 5 are alive without any major medical problems she is aware of. 2 siblings have one from alcohol abuse and 1. Coronary artery disease. Daughter(s) Additional Family Medical History / Comment(s): Patient has one daughter with no major medical problems. General Exam Limitations: no limitations General appearance: alert, in no apparent distress Head exam: Present: atraumatic, normocephalic, normal inspection Eye exam: Present: normal appearance, PERRL, EOMI. Absent: scleral icterus, conjunctival injection, periorbital swelling ENT exam: Present: normal exam, mucous membranes moist Neck exam: Present: normal inspection, full ROM. Absent: tenderness, meningismus, lymphadenopathy Respiratory exam: Present: normal lung sounds bilaterally, chest wall tenderness. Absent: respiratory distress, wheezes, rales, rhonchi, stridor Cardiovascular Exam: Present: regular rate, normal rhythm, normal heart sounds. Absent: systolic murmur, diastolic murmur, rubs, gallop, clicks GI/Abdominal exam: Present: soft, normal bowel sounds. Absent: distended, tenderness, guarding, rebound, rigid Course Vital Signs 03/15/22 11:36 Temperature 98.1 F Pulse Rate 105 H Respiratory 20 Rate Blood Pressure 120/47 O2 Sat by Pulse 95 Oximetry Medical Decision Making - Medical Decision Making 62-year-old presented for left-sided rib pain after coughing. X-rays negative no pneumothorax no rib fracture. Patient has no signs of infection. Patient discharged in stable condition return parameters discussed. Disposition Clinical Impression: Chest wall pain, Rib pain on left side Disposition: HOME SELF-CARE Condition: Stable Instructions (If sedation given, give patient instructions): Chest Wall Pain (ED) Additional Instructions: Please return to the Emergency Department if symptoms worsen or any other concerns. Is patient prescribed a controlled substance at d/c from ED?: No Referrals: Miya Johnson MD [Primary Care Provider] - 1-2 days Time of Disposition: 14:11
[2022-03-15] MEDS ORDERED: ONDANSETRON 4 MG ODT STARTER PACK 2 TAB BTL PO STA (14:29)
[2022-03-15 14:49] VITALS: RESP 16
[2022-03-15 14:59] VITALS: BP 107/81; PULSE 99; TEMP 98
== END 2022-03-15 14:58 | disposition home or self-care (01) ==
LOC: EC 11:30
DX: R07.89 Other chest pain (principal); R07.81 Pleurodynia; F17.200 Nicotine dependence, unspecified, uncomplicated; J44.9 Chronic obstructive pulmonary disease, unspecified; I10 Essential (primary) hypertension; I25.10 Atherosclerotic heart disease of native coronary artery without angina pectoris; I25.2 Old myocardial infarction; Z86.73 Personal history of transient ischemic attack (TIA), and cerebral infarction without residual deficits; Z88.7 Allergy status to serum and vaccine; Z88.5 Allergy status to narcotic agent; Z79.82 Long term (current) use of aspirin; Z79.51 Long term (current) use of inhaled steroids; Z79.899 Other long term (current) drug therapy
CPT/HCPCS: 71101; 99284; 96372; J2405; J1170; S0119

== ENCOUNTER 2022-05-16 11:56 | Inpatient (IN) | payer OTHER ==
[2022-05-16 12:35] LABS: Glucose,Whole Blood 119 mg/dL (70-110)
[2022-05-16 12:51] LABS: Basophils # (A) 0.1 k/uL (0-0.2); Basophils % (A) 1 %; Eosinophils # (A) 0.1 k/uL (0-0.7); Eosinophils % (A) 1 %; HGB 15.5 gm/dL (11.4-16.0); Lymphocytes # (A) 2.9 k/uL (1.0-4.8); Lymphocytes % (A) 20 %; MCH 30.5 pg (25.0-35.0); MCHC 34.3 g/dL (31.0-37.0); MCV 88.9 fL (80.0-100.0); Monocytes # (A) 0.4 k/uL (0-1.0); Monocytes % (A) 3 %; Neutrophils # (A) 10.8 k/uL (1.3-7.7); Neutrophils % (A) 75 %; Platelet Count 224 k/uL (150-450); RBC 5.06 m/uL (3.80-5.40); RDW 15.4 % (11.5-15.5); WBC 14.4 k/uL (3.8-10.6)
--- NOTE | 2022-05-16 13:03 | CT ---
EXAMINATION TYPE: CT brain wo con DATE OF EXAM: 05/16/2022 COMPARISON: 02/14/2022 HISTORY: right side weakness and difficulty talking CT DLP: 1106.[address] of the brain was performed. The ventricles, basal cisterns and sulci overlying the cerebral convexities demonstrate mild enlargem ent. Hyperdense lesion at the foramen of Sky again noted, compatible with colloid cyst. There is no evidence for intracranial hemorrhage or sulcal effacement. There is decreased attenuation about the periventricular white matter and deep white matter of both c erebral hemispheres, compatible with chronic small vessel ischemia. Differential diagnosis does inclu de demyelination. No mass effects are seen.No midline shift. Osseous calvarium is intact. If symptoms persist consider MRI. IMPRESSION: 1. Age related atrophic and chronic small vessel ischemic change without acute intracranial process s een at this time.
[2022-05-16 13:08] LABS: INR 1.1 (<1.2); Partial Thromboplastin Time 25.4 sec (22.0-30.0); Prothrombin Time 11.9 sec (9.0-12.0)
--- NOTE | 2022-05-16 13:13 | XR ---
EXAMINATION TYPE: XR chest 1V portable DATE OF EXAM: 05/16/2022 Comparison: 03/15/2022 Clinical History: 62-year-old female, weakness, altered mental status Findings: Heart normal size. Aorta and pulmonary vasculature within normal. Interstitial prominence likely due to magnification from large body habitus and AP technique. No consolidation or pleural effusion. Impression: No acute cardiopulmonary process.
[2022-05-16 13:18] LABS: ALT 45 U/L (4-34); AST 46 U/L (14-36); African American GFR (CKD) >90 (>60 ml/min/1.73 sqM); Albumin 4.5 g/dL (3.5-5.0); Alkaline Phosphatase 172 U/L (38-126); Anion Gap 14 mmol/L; Blood Urea Nitrogen 13 mg/dL (7-17); Calcium 8.5 mg/dL (8.4-10.2); Carbon Dioxide 22 mmol/L (22-30); Chloride 103 mmol/L (98-107); Glucose 115 mg/dL (74-99); Non-African American GFR(CKD) >90 (>60 ml/min/1.73 sqM); Sodium 139 mmol/L (137-145); Total Bilirubin 0.3 mg/dL (0.2-1.3); Total Protein 7.3 g/dL (6.3-8.2)
[2022-05-16 13:26] LABS: Alcohol 279 mg/dL
[2022-05-16 13:30] LABS: Appearance,Urine Clear (Clear); Bilirubin,Urine Negative (Negative); Blood,Urine Negative (Negative); Color,Urine Light Yellow; Glucose,Urine (UA) Negative (Negative); Ketones,Urine Negative (Negative); Leukocyte Esterase,Urine Negative (Negative); Nitrite,Urine Negative (Negative); PH, Urine 5.5 (5.0-8.0); Protein,Urine Negative (Negative); Specific Gravity,Urine 1.011 (1.001-1.035); Urobilinogen,Urine <2.0 mg/dL (<2.0)
[2022-05-16 14:12] LABS: Amphetamine Screen,Urine Not Detected (NotDetected); Barbiturate Screen,Urine Not Detected (NotDetected); Benzodiazepines Screen,Urine Not Detected (NotDetected); Cocaine Screen,Urine Not Detected (NotDetected); Methadone Screen, Urine Not Detected (NotDetected); Opiate Screen,Urine Not Detected (NotDetected); Oxycodone Screen, Urine Not Detected (NotDetected); Phencyclidine Screen,Urine Not Detected (NotDetected); Tricyclic Antidepressant,Urine Not Detected (NotDetected); Urn Cannabinoid Scrn Not Detected (NotDetected)
--- NOTE | 2022-05-16 14:34 | CT ---
EXAMINATION TYPE: CODE STROKE: CTA head neck DATE OF EXAM: 05/16/2022 COMPARISON: 07/26/2019 HISTORY: weakness CONTRAST: Performed with IV Contrast, patient injected with 100 mL of Isovue 300. Combination Contrast CTA cervical carotids and [place] CTA cervical carotids with 3-D recons truction Contrast CTA of the cervical carotids was performed 3-D reconstruction imaging obtained at a separate workstation. Right carotid system: Mild plaque is seen of the right common carotid artery. There is moderate calc ified plaque also noted at the carotid bulb and proximal ICA. Estimated diameter reduction of approx imately 50-60%. ECA is patent. Right vertebral artery appears unremarkable. Left carotid system: Mild plaque is seen of the left common carotid artery. Interval endarterectomy c hanges left ICA which appears to be patent. No significant diameter reduction. ECA is patent. Left v ertebral artery appears unremarkable. IMPRESSION: 1. No significant diameter reduction to account for the patient's symptoms. CTA [place] with 3-D reconstruction Contrast CTA of the [place] was performed 3-D reconstruction imaging obtained at a separate workstation. Vertebrobasilar system as well as intracranial portions of the internal carotid arteries and their ma jin tributaries are patent. I do not see evidence for sizable aneurysm or vascular malformation. Pl ease note MRI provides greater sensitivity and specificity. Visualized brain appears grossly unremar kable. IMPRESSION: 1. No significant abnormality. NASCET criteria was used in interpretation of this exam?
--- NOTE | 2022-05-16 14:57 | ED ---
Neuro HPI - General Chief Complaint: Neuro Symptoms/Deficit Stated Complaint: stroke symptoms Time Seen by Provider: 05/16/22 12:09 Source: patient Mode of arrival: EMS Limitations: no limitations - History of Present Illness Is the patient presenting with stroke symptoms?: Yes Last Known Well Date: 05/16/22 Last Known Well Time: 09:30 Initial Comments: Patient presents to the emerge department complaining of trouble speaking, as well as right lower extremity weakness. Her symptoms were first noticed when she woke up this morning. The trouble speaking resolved on its own. She still feels like she has trouble using the right leg. She has a history of stroke with residual right-sided deficits. However, she feels like the right leg weakness is worse than previously. She has no chest or belly or back pain. She has no nausea or vomiting. She has no headache. She has no neck pain or stiffness. Patient woke up with these symptoms. So she does not know exactly when it began. - Related Data Home Medications: Home Medications Medication Instructions Recorded Confirmed Aspirin EC [Ecotrin Low Dose] 81 mg PO DAILY 02/11/19 03/15/22 Metoprolol Succinate (ER) [Toprol 50 mg PO DAILY 06/13/21 03/15/22 XL] Pantoprazole [Protonix] 40 mg PO DAILY 06/13/21 03/15/22 Fluticasone Nasal [place] [Flonase 1 spray EA NOSTRIL DAILY 02/14/22 03/15/22 Nasal [place]] Magnesium Oxide 400 mg PO DAILY 02/14/22 03/15/22 Thiamine [Vitamin B-1] 100 mg PO BID 02/14/22 03/15/22 Brimonidine Tartrate [Alphagan P 1 drops BOTH EYES BID 03/15/22 03/15/22 0.2% Ophth Soln] Budesonide/Formoterol Fumarate 2 puff INHALATION RT-BID 03/15/22 03/15/22 [Symbicort 160-4.5 Mcg Inhaler] Ipratropium-Albuterol Nebulize 3 ml INHALATION RT-Q4H PRN 03/15/22 03/15/22 [Duoneb 0.5 mg-3 mg/3 ml Soln] Previous Rx's Medication Instructions Recorded Atorvastatin [Lipitor] 80 mg PO HS 30 Days #30 tab 04/22/21 Isosorbide Mononitrate ER [Imdur] 30 mg PO DAILY 30 Days #30 04/22/21 tab.er.24h Ketorolac [Toradol] 10 mg PO Q8HR #10 tab 03/15/22 Allergies/Adverse Reactions: Allergies Allergy/AdvReac Type Severity Reaction Status Date / Time Influenza Virus Vaccines AdvReac Nausea & Verified 05/16/22 12:20 Vomiting morphine AdvReac Nausea & Verified 05/16/22 12:20 Vomiting Review of Systems ROS Statement: Those systems with pertinent positive or pertinent negative responses have been documented in the HPI. ROS Other: All systems not noted in ROS Statement are negative. General Exam Limitations: no limitations General appearance: alert Head exam: Present: atraumatic Eye exam: Present: normal appearance ENT exam: Present: normal exam Neck exam: Present: normal inspection. Absent: meningismus Respiratory exam: Present: normal lung sounds bilaterally. Absent: respiratory distress Cardiovascular Exam: Present: regular rate, normal rhythm GI/Abdominal exam: Present: soft. Absent: tenderness Rectal exam: Present: deferred Extremities exam: Present: normal inspection. Absent: full ROM, tenderness Back exam: Present: normal inspection, full ROM Neurological exam: Present: alert, oriented X3, motor sensory deficit Psychiatric exam: Present: normal affect Skin exam: Present: warm, dry (Car) Stroke MDM - Lab Data Result diagrams: 05/16/22 12:30 05/16/22 12:30 Lab Results 05/16/22 05/16/22 05/16/22 Range/Units 12:30 12:30 12:30 WBC 14.4 H (3.8-10.6) k/uL RBC 5.06 (3.80-5.40) m/uL Hgb 15.5 (11.4-16.0) gm/dL Hct 45.0 (34.0-46.0) % MCV 88.9 (80.0-100.0) fL MCH 30.5 (25.0-35.0) pg MCHC 34.3 (31.0-37.0) g/dL RDW 15.4 (11.5-15.5) % Plt Count 224 (150-450) k/uL MPV 8.0 Neutrophils % 75 % Lymphocytes % 20 % Monocytes % 3 % Eosinophils % 1 % Basophils % 1 % Neutrophils # 10.8 H (1.3-7.7) k/uL Lymphocytes # 2.9 (1.0-4.8) k/uL Monocytes # 0.4 (0-1.0) k/uL Eosinophils # 0.1 (0-0.7) k/uL Basophils # 0.1 (0-0.2) k/uL PT 11.9 (9.0-12.0) sec INR 1.1 (<1.2) APTT 25.4 (22.0-30.0) sec Sodium (137-145) mmol/L Potassium (3.5-5.1) mmol/L Chloride (98-107) mmol/L Carbon Dioxide (22-30) mmol/L Anion Gap mmol/L BUN (7-17) mg/dL Creatinine (0.52-1.04) mg/dL Est GFR (CKD-EPI)AfAm (>60 ml/min/1.73 sqM) Est GFR (CKD-EPI)NonAf (>60 ml/min/1.73 sqM) Glucose (74-99) mg/dL POC Glucose (mg/dL) (70-110) mg/dL POC Glu [place]ner ID Calcium (8.4-10.2) mg/dL Total Bilirubin (0.2-1.3) mg/dL AST (14-36) U/L ALT (4-34) U/L Alkaline Phosphatase (38-126) U/L Troponin I (0.000-0.034) ng/mL Total Protein (6.3-8.2) g/dL Albumin (3.5-5.0) g/dL Urine Color Light Yellow Urine Appearance Clear (Clear) Urine pH 5.5 (5.0-8.0) Ur Specific [place] 1.011 (1.001-1.035) Urine Protein Negative (Negative) Urine Glucose (UA) Negative (Negative) Urine Ketones Negative (Negative) Urine Blood Negative (Negative) Urine Nitrite Negative (Negative) Urine Bilirubin Negative (Negative) Urine Urobilinogen <2.0 (<2.0) mg/dL Ur Leukocyte Esterase Negative (Negative) Urine Opiates Screen Not Detected (NotDetected) Ur Oxycodone Screen Not Detected (NotDetected) Urine Methadone Screen Not Detected (NotDetected) Ur Propoxyphene Screen Not Detected (NotDetected) Ur Barbiturates Screen Not Detected (NotDetected) U Tricyclic Antidepress Not Detected (NotDetected) Ur Phencyclidine Scrn Not Detected (NotDetected) Ur Amphetamines Screen Not Detected (NotDetected) U Methamphetamines Scrn Not Detected (NotDetected) U Benzodiazepines Scrn Not Detected (NotDetected) Urine Cocaine Screen Not Detected (NotDetected) U Marijuana (THC) Screen Not Detected (NotDetected) Serum Alcohol mg/dL 05/16/22 05/16/22 05/16/22 Range/Units 12:30 12:30 12:33 WBC (3.8-10.6) k/uL RBC (3.80-5.40) m/uL Hgb (11.4-16.0) gm/dL Hct (34.0-46.0) % MCV (80.0-100.0) fL MCH (25.0-35.0) pg MCHC (31.0-37.0) g/dL RDW (11.5-15.5) % Plt Count (150-450) k/uL MPV Neutrophils % % Lymphocytes % % Monocytes % % Eosinophils % % Basophils % % Neutrophils # (1.3-7.7) k/uL Lymphocytes # (1.0-4.8) k/uL Monocytes # (0-1.0) k/uL Eosinophils # (0-0.7) k/uL Basophils # (0-0.2) k/uL PT (9.0-12.0) sec INR (<1.2) APTT (22.0-30.0) sec Sodium 139 (137-145) mmol/L Potassium 4.0 (3.5-5.1) mmol/L Chloride 103 (98-107) mmol/L Carbon Dioxide 22 (22-30) mmol/L Anion Gap 14 mmol/L BUN 13 (7-17) mg/dL Creatinine 0.52 (0.52-1.04) mg/dL Est GFR (CKD-EPI)AfAm >90 (>60 ml/min/1.73 sqM) Est GFR (CKD-EPI)NonAf >90 (>60 ml/min/1.73 sqM) Glucose 115 H (74-99) mg/dL POC Glucose (mg/dL) 119 H (70-110) mg/dL POC Glu [place]ner ID Madiha [place] Calcium 8.5 (8.4-10.2) mg/dL Total Bilirubin 0.3 (0.2-1.3) mg/dL AST 46 H (14-36) U/L ALT 45 H (4-34) U/L Alkaline Phosphatase 172 H (38-126) U/L Troponin I <0.012 (0.000-0.034) ng/mL Total Protein 7.3 (6.3-8.2) g/dL Albumin 4.5 (3.5-5.0) g/dL Urine Color Urine Appearance (Clear) Urine pH (5.0-8.0) Ur Specific [place] (1.001-1.035) Urine Protein (Negative) Urine Glucose (UA) (Negative) Urine Ketones (Negative) Urine Blood (Negative) Urine Nitrite (Negative) Urine Bilirubin (Negative) Urine Urobilinogen (<2.0) mg/dL Ur Leukocyte Esterase (Negative) Urine Opiates Screen (NotDetected) Ur Oxycodone Screen (NotDetected) Urine Methadone Screen (NotDetected) Ur Propoxyphene Screen (NotDetected) Ur Barbiturates Screen (NotDetected) U Tricyclic Antidepress (NotDetected) Ur Phencyclidine Scrn (NotDetected) Ur Amphetamines Screen (NotDetected) U Methamphetamines Scrn (NotDetected) U Benzodiazepines Scrn (NotDetected) Urine Cocaine Screen (NotDetected) U Marijuana (THC) Screen (NotDetected) Serum Alcohol 279 H* mg/dL - Medical Decision Making Patient complains of strokelike symptoms. She also admits to drinking today. Her symptoms are of an unknown time of onset. CT head shows no acute process. CTA shows no acute blockage. Chest x-ray shows no acute emergency. Laboratory studies demonstrate an extremely elevated alcohol level. We will consult neurology. Patient will be admitted to the hospital. 05/16/22 14:56 Twelve-lead EKG shows ventricular rate 96 bpm, normal IL interval and Marshall complex is no ST elevation, interpreted by me as sinus rhythm. Past Medical History Past Medical History: Asthma, Coronary Artery Disease (CAD), COPD, CVA/TIA, Hypertension, Liver Disease, Myocardial Infarction ([place]), Seizure Disorder, Vascular Disorder Additional Past Medical History / Comment(s): Pt recently admitted to [facility] on 04/16/21 acute exacerbation COPD/tracheobronchitis. 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 Last Myocardial Infarction Date:: aug 2018 History of Any Multi-Drug Resistant Organisms: None Reported Past Surgical History: Cholecystectomy, Heart Catheterization, Orthopedic Surgery Additional Past Surgical History / Comment(s): L caratid stent, bilateral knee surgeries for tendon repair, bartholian cyst removed bilateral wrists Past Anesthesia/Blood Transfusion Reactions: Motion Sickness Additional Past Anesthesia/Blood Transfusion Reaction / Comment(s): Pt has received blood without reaction. Past Psychological History: Anxiety, Depression Smoking Status: Current every day smoker, Light tobacco smoker Past Alcohol Use History: Occasional Past Drug Use History: Marijuana - Past Family History Mother Family Medical History: Cancer, Congestive Heart Failure (CHF), Coronary Artery Disease (CAD), Hyperlipidemia Additional Family Medical History / Comment(s): Mother at age 85 from lung cancer. Father Family Medical History: Cancer, COPD Additional Family Medical History / Comment(s): Father at age 63 from lung cancer. Brother(s) Additional Family Medical History / Comment(s): Patient has a total of 7 siblings. 5 are alive without any major medical problems she is aware of. 2 siblings have one from alcohol abuse and 1. Coronary artery disease. Daughter(s) Additional Family Medical History / Comment(s): Patient has one daughter with no major medical problems. Course Vital Signs 05/16/22 05/16/22 05/16/22 12:01 12:15 12:30 Temperature 98.7 F Pulse Rate 108 H 108 H 96 Respiratory 18 18 16 Rate Blood Pressure 134/103 134/103 122/95 O2 Sat by Pulse 98 98 97 Oximetry 05/16/22 05/16/22 13:19 13:22 Temperature Pulse Rate 76 Respiratory 16 Rate Blood Pressure 105/78 O2 Sat by Pulse 98 100 Oximetry Disposition Clinical Impression: Cerebrovascular accident (CVA), Alcohol intoxication Disposition: ADMITTED IP TO THIS HOSP Condition: Fair Is patient prescribed a controlled substance at d/c from ED?: No Referrals: Miya Johnson MD [Primary Care Provider] - 1-2 days
[2022-05-16] MEDS ORDERED: NALOXONE 0.4 MG/ML 1 ML VIAL IV PRN (15:00)
[2022-05-16] MEDS ORDERED: MAG HYDROX/AL HYDROX/SIMETH 30 ML CUP PO PRN (15:00)
[2022-05-16] MEDS ORDERED: LORazepam 2 MG/ML INJ IV PRN ×4 (15:00→16:49)
[2022-05-16] MEDS ORDERED: TEMAZEPAM 15 MG CAP PO PRN (15:00)
[2022-05-16] MEDS ORDERED: DOCUSATE 100 MG CAP PO PRN (15:00)
[2022-05-16] MEDS ORDERED: chlordiazePOXIDE 25 MG CAP PO PRN ×4 (18:06)
[2022-05-16] MEDS: ONDANSETRON 4 MG/2 ML VIAL IVP PRN ×2 (18:17→18:19)
--- NOTE | 2022-05-16 18:58 | HP ---
HISTORY AND PHYSICAL CHIEF COMPLAINTS: Weakness of the right side of the body as well as dysarthria and alcohol. HISTORY OF PRESENT ILLNESS: This 62-year-old woman with a past medical history of multiple medical problems, including COPD, CVA, hypertension, chronic liver disease, was noted to have some weakness of the right side of the body, right lower limb and trouble speaking. The patient had multiple vascular problems, including stenting of the carotid artery on the left side and coronary artery disease. The patient came to [facility]. The initial CT scan showed ischemic changes and the patient was admitted for further evaluation to rule out the possibility of acute stroke. The alcohol level was also found to be high at 267. The patient reports that she took 2 drinks this morning. There is no history of any fever, rigors, chills. PAST MEDICAL HISTORY: History of COPD, history of multiple vascular problems, seizure disorder, liver disease. MEDICATIONS: Home medications are reviewed and include thiamine 100 mg daily. Doses and the rest of the medications are noted. ALLERGIES: Reviewed. They include INFLUENZA VACCINE. FAMILY HISTORY: Family history includes CHF and CAD. SOCIAL HISTORY: History of THC. Alcohol as mentioned earlier. REVIEW OF SYSTEMS: Fourteen-point review of systems negative except as mentioned earlier. PHYSICAL EXAMINATION: Pulse is 96, blood pressure ntd, respirations 16. HEENT: Conjunctivae normal. NECK: No jugular venous distention. CARDIOVASCULAR: S1, S2 muffled. RESPIRATION: Breath sounds diminished at the bases. No rhonchi. No crackles. ABDOMEN: Soft, nontender. No mass palpable. LEGS: No edema. No swelling. NERVOUS SYSTEM: Higher functions as mentioned earlier. Mild diffuse weakness of the right lower legs present. Otherwise no other focal deficit noted. SKIN: No ulcer, rash, bleeding. JOINTS: No active deforming arthropathy. LABS: Reviewed. They include WBC 14.4. ASSESSMENT: 1. Acute weakness of the right side of the body and dysarthria. Rule out acute stroke. 2. History of previous stroke. 3. Acute alcohol intoxication. 4. History of coronary artery disease. 5. Chronic obstructive pulmonary disease. 6. Hypertension. 7. Chronic liver disease. 8. Seizure disorder. 9. History of multiple medical issues. RECOMMENDATIONS AND DISCUSSION: In this 62-year-old woman who presented with multiple complex medical issues, we will monitor the patient closely. Will obtain complete neurovascular workup and neuro checks. Troponins are also being checked. Resume the home medications. [facility] protocol for alcohol withdrawal. The prognosis is guarded because of multiple complex medical issues. Further recommendations to follow. MMODL / IJN: [id number] / MTDD
[2022-05-16] MEDS: IPRATROPIUM-ALBUTEROL 3 ML NEB INHALATION PRN (19:24)
[2022-05-16] MEDS: SYMBICORT 160-4.5 MCG INHALER INHALATION SCH ×2 (19:26→21:40)
[2022-05-16] MEDS: ATORVASTATIN 80 MG TAB PO SCH (21:40)
[2022-05-16] MEDS: BRIMONIDINE TARTRATE 0.2% DROPS 5 ML BTL BOTH EYES SCH (21:40)
[2022-05-16] MEDS: THIAMINE 100 MG TAB PO SCH (21:44)
[2022-05-16] MEDS: HYDROcodone/APAP 5-325MG 1 EACH TAB PO PRN (21:44)
[2022-05-17] MEDS: IPRATROPIUM-ALBUTEROL 3 ML NEB INHALATION PRN ×2 (00:24→20:05)
[2022-05-17] MEDS: ONDANSETRON 4 MG/2 ML VIAL IVP PRN ×2 (01:40→09:55)
[2022-05-17] MEDS: PANTOPRAZOLE 40 MG TABLET PO SCH (06:58)
[2022-05-17] MEDS: METOPROLOL SUCCINATE (ER) 50 MG TAB.ER.24H PO SCH (08:54)
[2022-05-17] MEDS: MAGNESIUM OXIDE 400 MG TAB PO SCH (08:54)
[2022-05-17] MEDS: THIAMINE 100 MG TAB PO SCH ×2 (08:54→20:30)
[2022-05-17] MEDS: ASPIRIN 81 MG PO SCH (08:54)
[2022-05-17] MEDS: ISOSORBIDE MONONITRATE ER 30 MG TAB.ER.24H PO SCH (08:54)
[2022-05-17] MEDS: HYDROcodone/APAP 5-325MG 1 EACH TAB PO PRN (08:54)
[2022-05-17] MEDS: BRIMONIDINE TARTRATE 0.2% DROPS 5 ML BTL BOTH EYES SCH ×2 (09:55→20:30)
--- NOTE | 2022-05-17 11:09 | P.CNNES ---
History of Present Illness Consult date: 05/17/22 Requesting physician: Vinicius Camejo Reason for Consult: stroke symptoms History of Present Illness: This is a 62-year-old woman with medical history of stroke with residual right- sided weakness, left carotid stenting, ND, seizure, chronic back pain, L1/L4 vertebral fracture from falls, alcohol cirrhosis, alcohol abuse, who presented to our ED with a complaint of difficulty speaking and right lower extremity weakness. It seems that the patient felt that the right leg is weaker than baseline. Unknown time of onset. Patient is a poor historian and she's given the inconsistent the history. She notified me that she presented because of the stroke. Upon asking the patient to give me the symptoms and not the diagnosis she stated that 2 weeks ago she had difficulty talking. Then later she stated that she has right-sided weakness upon asking her if her weakness is more than baseline she stated no. Upon asking if she drinks alcohol she stated that rarely even though her alcohol level on this presentation was 279. She does acknowledge that she has residual right-sided weakness from previous stroke and has a fracture in her lower back as a result she has lowered 70 weakness and walks with a walker. She states that she follows up with Dr. Brewer (neurologist) who is managing her stroke and her colloid cyst. She is on aspirin 81 mg daily at home. She denies of any new weakness, numbness, visual disturbance, headache. Any speech difficulty. She feels she is at baseline. It seems that the patient was seen by neuro-hospitalist (Dr. Cueto) last on the September 2019 for seizure. She had a routine EEG and was reported as normal. No seizures. Please refer to neurohospitalist previous notes for further d etails. Some other workup in our facility during this hospital visit consisted of: Serum alcohol level is 279. Other urine drug screen is not detected. CT of the head is reported as age-related atrophy and chronic small vessel ischemic change without acute intracranial process seen at this time. The body of the report it is mentioned the patient has hyperdense lesion at the aforementioned of [place] compatible colloid cyst. I do agree with that. I also felt the patient has old encephalomalacia over the left frontal parietal region. EKG angiography of the head and neck was reported as negative. Patient did not get IV TPA since unknown onset of symptoms and the risk outweighed the benefit. Review of Systems Review of system: The 12 point system was reviewed and apparent positive and negative per HPI. Past Medical History Past Medical History: Asthma, Coronary Artery Disease (CAD), COPD, CVA/TIA, H ypertension, Liver Disease, Myocardial Infarction (ND), Seizure Disorder, Vascular Disorder Additional Past Medical History / Comment(s): Pt recently admitted to [facility] on 04/16/21 acute exacerbation COPD/tracheobronchitis. 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 Last Myocardial Infarction Date:: aug 2018 History of Any Multi-Drug Resistant Organisms: None Reported Past Surgical History: Cholecystectomy, Heart Catheterization, Orthopedic Surgery Additional Past Surgical History / Comment(s): L caratid stent, bilateral knee surgeries for tendon repair, bartholian cyst removed bilateral wrists Past Anesthesia/Blood Transfusion Reactions: Motion Sickness Additional Past Anesthesia/Blood Transfusion Reaction / Comment(s): Pt has received blood without reaction. Past Psychological History: Anxiety, Depression Smoking Status: Current every day smoker, Light tobacco smoker Past Alcohol Use History: Occasional Past Drug Use History: Marijuana - Past Family History Mother Family Medical History: Cancer, Congestive Heart Failure (CHF), Coronary Artery Disease (CAD), Hyperlipidemia Additional Family Medical History / Comment(s): Mother at age 85 from lung cancer. Father Family Medical History: Cancer, COPD Additional Family Medical History / Comment(s): Father at age 63 from lung cancer. Brother(s) Additional Family Medical History / Comment(s): Patient has a total of 7 siblings. 5 are alive without any major medical problems she is aware of. 2 siblings have one from alcohol abuse and 1. Coronary artery disease. Daughter(s) Additional Family Medical History / Comment(s): Patient has one daughter with no major medical problems. Medications and Allergies Home Medications Medication Instructions Recorded Confirmed Type Aspirin EC [Ecotrin Low Dose] 81 mg PO DAILY 02/11/19 05/16/22 History Atorvastatin [Lipitor] 80 mg PO HS 30 Days #30 tab 04/22/21 05/16/22 Rx Isosorbide Mononitrate ER [Imdur] 30 mg PO DAILY 30 Days #30 04/22/21 05/16/22 Rx tab.er.24h Metoprolol Succinate (ER) [Toprol 50 mg PO DAILY 06/13/21 05/16/22 History XL] Pantoprazole [Protonix] 40 mg PO DAILY 06/13/21 05/16/22 History Fluticasone Nasal [place] [Flonase 1 spr EA NOSTRIL DAILY 02/14/22 05/16/22 History Nasal [place]] Magnesium Oxide 400 mg PO DAILY 02/14/22 05/16/22 History Thiamine [Vitamin B-1] 100 mg PO BID 02/14/22 05/16/22 History Brimonidine Tartrate [Alphagan P 1 drop BOTH EYES BID 03/15/22 05/16/22 History 0.2% Ophth Soln] Budesonide/Formoterol Fumarate 2 puff INHALATION RT-BID 03/15/22 05/16/22 History [Symbicort 160-4.5 Mcg Inhaler] Ipratropium-Albuterol Nebulize 3 ml INHALATION RT-QID PRN 03/15/22 05/16/22 History [Duoneb 0.5 mg-3 mg/3 ml Soln] Allergies Allergy/AdvReac Type Severity Reaction Status Date / Time Influenza Virus Vaccines AdvReac Nausea & Verified 05/16/22 12:20 Vomiting morphine AdvReac Nausea & Verified 05/16/22 12:20 Vomiting Physical Examination - Vital Signs Vital Signs: Vital Signs Temp Pulse Resp BP Pulse Ox 05/16/22 16:00 95 18 114/84 97 05/16/22 15:00 105 H 18 99/79 99 05/16/22 13:22 100 05/16/22 13:19 76 16 105/78 98 05/16/22 12:30 96 16 122/95 97 05/16/22 12:15 108 H 18 134/103 98 05/16/22 12:01 98.7 F 108 H 18 134/103 98 Intake and Output 05/16/22 05/16/22 05/16/22 06:59 14:59 22:59 Other: Weight 73.936 kg GENERAL: The patient is lying in bed and is not in acute distress. CHEST: The heart rate is regular rate rhythm. No murmurs to auscultation. LUNG: Clear to auscultation bilaterally no wheezing noted throughout. Not labored breathing. ABDOMEN/GI: Bowel sounds present in all 4 quadrants. No tenderness to palpation throughout. NEUROLOGICAL: Higher mental function: The patient is awake, alert, oriented to self, place and time. Patient is following commands. No aphasia and no neglect. Cranial nerves: The pupils are round, equal and reactive to light and accommodation. Visual galvan are full to confrontation throughout. Extraocular movement is intact no nystagmus is noted. Facial sensation is normal to touch throughout. The facial strength is normal throughout. Hearing is mildly decreased bilaterally to hand rub. Tongue is midline and moved [id number] without any difficulty. No dysarthria is noted. Shoulder shrug is normal bilaterally. Motor: The strength is right upper forearm are is 4+. Right hand fisher scallop is 5-. Bilateral lowers are 4-4+ (seems weaker on right than left and stated old from fracture in lower back). Normal tone and bulk. Cerebellum: Normal finger to nose bilaterally. Sensation: Sensation is decrease to touch over the right lower otherwise state normal to touch over uppers. Reflexes (right/left): 3+ over the right upper. Otherwise left upper is 2+. Lowers are 1+. Plantars are mute bilaterally. Results - Laboratory Findings CBC and BMP: 05/16/22 12:30 05/16/22 12:30 Abnormal Lab Findings: Abnormal Labs 05/16/22 05/16/22 05/16/22 12:30 12:30 12:33 WBC 14.4 H Neutrophils # 10.8 H Glucose 115 H POC Glucose (mg/dL) 119 H AST 46 H ALT 45 H Alkaline Phosphatase 172 H Serum Alcohol 279 H* Assessment and Plan Assessment: Alcohol intoxication with alcohol level of 279 Per ED she notified them she had worsening of right side and speech difficulty but denies that to me. She was providing inconsistent history to me as well to nurse. She denies significant alcohol use but her alcohol level was 279. Currently feels back to baseline. History of stroke with residual right-sided weakness History of left carotid stenting History of seizure (stated last seizure was 2.5 years ago). History of ND chronic back pain, L1/L4 vertebral fracture from falls Alcohol cirrhosis acute on chronic alcohol abuse Plan: Patient states she cannot have MRI Brain since not compatible because of stenting on left carotid. Because of her recurrent episode, and history of seizure: She stated she had an EEG two weeks ago by her neurologist and pending result and does not want to pursue with another one. She stated last seizure was 2.5 years ago. Patient is on aspirin 81mg daily. In addition I started the patient on Plavix 75mg daily. The patient to be on dual antiplatelets for 21 days and after that stop ASA and stop Plavix. Current on Lipitor 80 mg daily at bedtime which is sufficient for secondary stroke prophylaxis Patient was started on thiamine 100 mg 1 tablet twice a day. Continue neuro checks Consulted PT and OT as well as speech therapy Placed on cardiac monitoring Patient was counseled on alcohol cessation. Will defer the rest of medical management to primary team. Recommend patient to follow-up with her neurologist (Dr. Brewer) as outpatient within 1-2 weeks. The plan is discussed with patient and her nurse. No additional work-up needed at this time. Please notify if any further concerns. Thank you for the consultation. Chandler Franks M.D. Neuro-Hospitalist Time with Patient: Greater than 30
[2022-05-17] MEDS: CLOPIDOGREL 75 MG TAB PO SCH (11:21)
--- NOTE | 2022-05-17 13:44 | PN ---
PROGRESS NOTE DATE OF SERVICE: 05/17/2022 This 62-year-old woman who was admitted with weakness of the right side and as well as the etiology is being closely monitored at this time. Dr. Franks is following the patient closely. The patient still complains of weakness and had some withdrawal symptoms. No chest pain, palpitations. PHYSICAL EXAMINATION: Pulse is 103, blood pressure 137/99, respiration 18. HEENT: Conjunctivae normal. Neck: No JVD. Cardiovascular: S1, S2 muffled. Respirations: Breath sounds diminished in the bases. Abdomen: Soft. Legs are no edema. No swelling. Nervous system: Diffuse weakness, right more than the left. LABS: Reviewed. ASSESSMENT: 1. Weakness of the right side of the body and dysarthria possible acute transient ischemic attack. 2. History of previous stroke. 3. Acute alcohol intoxication. 4. History of coronary artery disease. 5. Chronic obstructive pulmonary disease. 6. Hypertension. 7. Multiple medical issues. RECOMMENDATIONS AND DISCUSSION: Recommend to continue current medications, management and symptomatic treatment. I would repeat the labs. Increase ambulation. Guarded prognosis. Alcohol withdrawal precautions. MMODL / IJN: [id number] /
[2022-05-17] MEDS: SYMBICORT 160-4.5 MCG INHALER INHALATION SCH (20:05)
[2022-05-17] MEDS: ATORVASTATIN 80 MG TAB PO SCH (20:30)
[2022-05-18] MEDS: IPRATROPIUM-ALBUTEROL 3 ML NEB INHALATION PRN (04:51)
[2022-05-18] MEDS: THIAMINE 100 MG TAB PO SCH (08:02)
[2022-05-18] MEDS: METOPROLOL SUCCINATE (ER) 50 MG TAB.ER.24H PO SCH (08:02)
[2022-05-18] MEDS: PANTOPRAZOLE 40 MG TABLET PO SCH (08:02)
[2022-05-18] MEDS: ISOSORBIDE MONONITRATE ER 30 MG TAB.ER.24H PO SCH (08:02)
[2022-05-18] MEDS: ASPIRIN 81 MG PO SCH (08:02)
[2022-05-18] MEDS: MAGNESIUM OXIDE 400 MG TAB PO SCH (08:02)
[2022-05-18] MEDS: CLOPIDOGREL 75 MG TAB PO SCH (08:02)
[2022-05-18] MEDS: BRIMONIDINE TARTRATE 0.2% DROPS 5 ML BTL BOTH EYES SCH (08:03)
[2022-05-18] MEDS: SYMBICORT 160-4.5 MCG INHALER INHALATION SCH (08:06)
[2022-05-18] MEDS: HYDROcodone/APAP 5-325MG 1 EACH TAB PO PRN (09:49)
[2022-05-18 10:26] LABS: Basophils # (A) 0.06 X 10*3/uL (0.00-0.10); Basophils % (A) 1.2 %; Eosinophils # (A) 0.16 X 10*3/uL (0.04-0.35); Eosinophils % (A) 3.3 %; HCT 45.2 % (37.2-46.3); HGB 14.2 g/dL (12.0-15.0); Immature Grans, Automated 0.2 %; Lymphocytes # (A) 2.25 X 10*3/uL (0.90-5.00); MCH 28.6 pg (27.0-32.0); MCHC 31.4 g/dL (32.0-37.0); MCV 90.9 fL (80.0-97.0); Mean Platelet Volume 11.7 fL (9.5-12.2); Monocytes # (A) 0.35 X 10*3/uL (0.20-1.00); Monocytes % (A) 7.2 %; NRBC Per 100 WBC 0 /100 WBCS (0.0-0.0); Neutrophils # (A) 2.06 X 10*3/uL (1.80-7.70); Neutrophils % (A) 42.1 %; Platelet Count 101 X 10*3/uL (140-440); RBC 4.97 X 10*6/uL (4.10-5.20); RDW 15.2 % (11.5-14.5); WBC 4.89 X 10*3/uL (4.50-10.00)
[2022-05-18 10:32] LABS: Albumin 4.3 g/dL (3.8-4.9); Albumin/Globulin Ratio 1.71 (1.60-3.17); Anion Gap 12.7 mmol/L (10.00-18.00); BUN/Creat Ratio 13.45 Ratio (12.00-20.00); Blood Urea Nitrogen 8.3 mg/dL (9.0-27.0); Calcium 9.2 mg/dL (8.7-10.3); Carbon Dioxide 25.6 mmol/L (20.0-27.5); Globulin 2.5 g/dL (1.6-3.3); Non-African American GFR(CKD) 97.5 (60.0-200.0); Total Bilirubin 0.4 mg/dL (0.30-1.20); Total Protein 6.8 g/dL (6.2-8.2)
--- NOTE | 2022-05-18 12:56 | P.PN ---
Subjective Progress Note Date: 05/18/22 The patient is seen at bedside and feeling better. Denies any new neurological issues. Objective - Vital Signs Vital signs: Vital Signs Temp 98.7 F 05/18/22 07:42 Pulse 80 05/18/22 08:20 Resp 16 05/18/22 08:20 BP 126/86 05/18/22 07:42 Pulse Ox 95 05/18/22 08:07 FiO2 21 05/17/22 20:06 Intake & Output 05/17/22 05/18/22 05/18/22 18:59 06:59 18:59 Intake Total 236 1250 Balance 236 1250 Weight 73.5 kg Intake: Oral 236 1250 Other: Voiding Method Bedside Commode Bedside Commode Bedside Commode # Voids 2 3 # Bowel Movements 1 - Exam GENERAL: The patient is lying in bed and is not in acute distress. NEUROLOGICAL: Higher mental function: The patient is awake, alert, oriented to self, place and time. Patient is following commands. No aphasia and no neglect. Cranial nerves: The pupils are round, equal and reactive to light and accommodation. Visual galvan are full to confrontation throughout. Extraocular movement is intact no nystagmus is noted. Facial sensation is normal to touch throughout. The facial strength is normal throughout. Hearing is mildly decreased bilaterally to hand rub. Tongue is midline and moved [id number] without any difficulty. No dysarthria is noted. Shoulder shrug is normal bilaterally. Motor: The strength is right upper forearm are is 4+. Right hand carbon dioxide operator is 5-. B ilateral lowers are 4-4+ (seems weaker on right than left and stated old from fracture in lower back). Normal tone and bulk. Cerebellum: Normal finger to nose bilaterally. Sensation: Sensation is decrease to touch over the right lower otherwise state normal to touch over uppers. Reflexes (right/left): 3+ over the right upper. Otherwise left upper is 2+. Lowers are 1+. Plantars are mute bilaterally. Some other workup in our facility during this hospital visit consisted of: Serum alcohol level is 279. Other urine drug screen is not detected. CT of the head is reported as age-related atrophy and chronic small vessel ischemic change without acute intracranial process seen at this time. The body of the report it is mentioned the patient has hyperdense lesion at the afor ementioned of Sky compatible colloid cyst. I do agree with that. I also felt the patient has old encephalomalacia over the left frontal parietal region. - Labs CBC & Chem 7: 05/18/22 05:47 05/18/22 05:47 Labs: Abnormal Lab Results - Last 24 Hours (Table) 05/18/22 05/18/22 Range/Units 05:47 05:47 MCHC 31.4 L (32.0-37.0) g/dL RDW 15.2 H (11.5-14.5) % Plt Count 101 L (140-440) X 10*3/uL BUN 8.3 L (9.0-27.0) mg/dL Alkaline Phosphatase 189 H (41-126) U/L Assessment and Plan Assessment: Alcohol intoxication with alcohol level of 279 Per ED she notified them she had worsening of right side and speech difficulty but denies that to me. She was providing inconsistent history to me as well to nurse. She denies significant alcohol use but her alcohol level was 279. Currently feels back to baseline. History of stroke with residual right-sided weakness History of left carotid stenting History of seizure (stated last seizure was 2.5 years ago). History of [place] chronic back pain, L1/L4 vertebral fracture from falls Alcohol cirrhosis acute on chronic alcohol abuse Plan: Patient states she cannot have MRI Brain since not compatible because of stenting on left carotid. Because of her recurrent episode, and history of seizure: She stated she had an EEG two weeks ago by her neurologist and pending result and does not want to pursue with another EEG during this vist. She stated last seizure was 2.5 years ago. Patient is on aspirin 81mg daily. In addition I started the patient on Plavix 75mg daily. The patient to be on dual antiplatelets for 21 days and after that stop ASA and stop Plavix. Current on Lipitor 80 mg daily at bedtime which is sufficient for secondary stroke prophylaxis If has any additional new speech difficulty or right sided weakness more than baseline will get repeat CT head. Continue thiamine 100 mg 1 tablet twice a day. Continue neuro checks Consulted PT and OT as well as speech therapy Placed on cardiac monitoring Patient was counseled on alcohol cessation. Will defer the rest of medical management to primary team. Recommend patient to follow-up with her neurologist (Dr. Brewer) as outpatient within 1-2 weeks. The plan is discussed with patient and primary team (N.P). No additional work-up needed at this time. Please notify if any further concerns. Chandler Franks M.D. Neuro-Hospitalist Time with Patient: Less than 30
[2022-05-18 14:28] VITALS: BP 105/67; PULSE 71; RESP 17; TEMP 98.5
--- NOTE | 2022-05-18 18:56 | P.DS ---
Providers Date of admission: 05/16/22 15:02 Expected date of discharge: 05/18/22 Attending physician: Sammy Amador MD Consults: 05/16/22 15:01 Consult Physician Routine Consulting Provider: Chandler Franks Consult Reason/Comments: stroke symptoms Do you want consulting provider notified?: Yes Primary care physician: Miya Johnson [place] [facility] Course: Final diagnosis weakness of the right side of the body and dysarthria, possible acute TIA HIstory of previous stroke Acute alcohol intoxication COPD Hypertension Full code Discharge disposition Patient is being discharged in a stable condition with guarded prognosis to home with continued home care. Patient will follow-up with Dr. Johnson and neurology in the outpatient setting upon discharge. Patient is to continue plavix. Total time taken is greater than 35 minutes. Hospital course This is a 62-year-old female who was recently admitted with right side weakness and alcohol withdrawal and was being closely monitored. Patient was evaluated by neurology and recommending plavix and outpatient neurology follow up on discharge. Avoid any alcohol or tobacco use. Patient will continue a librium taper on discharge as well. Currently no reports of chest pain, shortness of breath, or palpitations. Patient is afebrile. No reports of nausea or vomiting and patient is tolerating diet . Patient will be discharged home today. guarded prognosis. Patient is high risk for readmissions and multiple hospitalizations. Physical exam: Gen: This is a 62 year old female, awake alert and oriented x3. HEENT: Head is atraumatic, normocephalic. Pupils equal, round. Sclerae is anicteric. NECK: Supple. No JVD. No lymphadenopathy. No thyromegaly. LUNGS: diminished breath sounds bilaterally otherwise Clear to auscultation. No wheezes or rhonchi. No intercostal retractions. HEART: Regular rate and rhythm. No murmur. ABDOMEN: Soft. Bowel sounds are present. No masses. No tenderness. EXTREMITIES: No pedal edema. No calf tenderness. NEUROLOGICAL: Patient is awake, alert and oriented x3. Cranial nerves 2 through 12 are grossly intact. Please refer to medication reconciliation sheet for a list of medications. The impression and plan of care has been dictated by Tonya Adan, Nurse Practitioner as directed. Dr. Jackelin MD I have performed a history and examination and MDM of this patient, discussed the same with the dictator, and agree with the dictator's assessment and plan as written ,documented as a scribe. Based on total visit time, I have performed more than 50% of the visit. Patient Condition at Discharge: Fair Plan - Discharge Summary Discharge Rx Participant: No New Discharge Prescriptions: New chlordiazePOXIDE HCl [Librium] 25 mg PO TID #12 cap Clopidogrel [Plavix] 75 mg PO DAILY 30 Days #30 tab Continue Aspirin EC [Ecotrin Low Dose] 81 mg PO DAILY Atorvastatin [Lipitor] 80 mg PO HS 30 Days #30 tab Pantoprazole [Protonix] 40 mg PO DAILY Budesonide/Formoterol Fumarate [Symbicort 160-4.5 Mcg Inhaler] 2 puff INHALATION RT-BID Thiamine [Vitamin B-1] 100 mg PO BID 30 Days #60 tab Isosorbide Mononitrate ER [Imdur] 30 mg PO DAILY 30 Days #30 tab.er.24h Metoprolol Succinate (ER) [Toprol XL] 50 mg PO DAILY Fluticasone Nasal [place] [Flonase Nasal [place]] 1 spr EA NOSTRIL DAILY Magnesium Oxide 400 mg PO DAILY Brimonidine Tartrate [Alphagan P 0.2% Ophth Soln] 1 drop BOTH EYES BID Ipratropium-Albuterol Nebulize [Duoneb 0.5 mg-3 mg/3 ml Soln] 3 ml INHALATION RT-QID PRN PRN Reason: Shortness Of Breath Discharge Medication List Aspirin EC [Ecotrin Low Dose] 81 mg PO DAILY 02/11/19 [History] Atorvastatin [Lipitor] 80 mg PO HS 30 Days #30 tab 04/22/21 [Rx] Isosorbide Mononitrate ER [Imdur] 30 mg PO DAILY 30 Days #30 tab.er.24h 04/22/21 [Rx] Metoprolol Succinate (ER) [Toprol XL] 50 mg PO DAILY 06/13/21 [History] Pantoprazole [Protonix] 40 mg PO DAILY 06/13/21 [History] Fluticasone Nasal [place] [Flonase Nasal [place]] 1 spr EA NOSTRIL DAILY 02/14/22 [History] Magnesium Oxide 400 mg PO DAILY 02/14/22 [History] Brimonidine Tartrate [Alphagan P 0.2% Ophth Soln] 1 drop BOTH EYES BID 03/15/22 [History] Budesonide/Formoterol Fumarate [Symbicort 160-4.5 Mcg Inhaler] 2 puff INHALATION RT-BID 03/15/22 [History] Ipratropium-Albuterol Nebulize [Duoneb 0.5 mg-3 mg/3 ml Soln] 3 ml INHALATION RT-QID PRN 03/15/22 [History] Clopidogrel [Plavix] 75 mg PO DAILY 30 Days #30 tab 05/18/22 [Rx] Thiamine [Vitamin B-1] 100 mg PO BID 30 Days #60 tab 05/18/22 [Rx] chlordiazePOXIDE HCl [Librium] 25 mg PO TID #12 cap 05/18/22 [Rx] Follow up Appointment(s)/Referral(s): Miya Johnson MD [Primary Care Provider] - 05/31/22 10:45 am Yen Sosa MD [Medical Doctor] - 1 Week (Please call office to schedule appointment.) [facility] Visiting Nurse, [NON-STAFF] - 05/22/22 Patient Instructions/Handouts: How to Stop Smoking (DC), Abuse of Alcohol (DC), Alcohol Dependence (DC) Activity/Diet/Wound Care/Special Instructions: Activity Limited until follow-up Follow-up with primary care provider on discharge Continue taking medications as prescribed Follow-up with neurology outpatient Avoid alcohol and tobacco use Continue heart healthy diet Discharge/Stand Alone Forms: AA Meetings [place] Substance Abuse Facilities, Personal Business Team Leader Discharge Disposition: HOME WITH HOME HEALTH SERVICES
== END 2022-05-18 15:17 | disposition home health service (06) | DRG 69 ==
LOC: EC 11:56 → 3SCARD 15:02 → 4SSUR 05-17 13:25
PROVIDERS: ADMIT Internal Medicine; ATTEND Internal Medicine
DX: G45.9 Transient cerebral ischemic attack, unspecified (principal); F10.129 Alcohol abuse with intoxication, unspecified; Y90.8 Blood alcohol level of 240 mg/100 ml or more; F17.210 Nicotine dependence, cigarettes, uncomplicated; G40.909 Epilepsy, unspecified, not intractable, without status epilepticus; I10 Essential (primary) hypertension; I25.10 Atherosclerotic heart disease of native coronary artery without angina pectoris; I25.2 Old myocardial infarction; G83.11 Monoplegia of lower limb affecting right dominant side; M54.9 Dorsalgia, unspecified; F41.9 Anxiety disorder, unspecified; F32.A Depression, unspecified; G89.29 Other chronic pain; J44.9 Chronic obstructive pulmonary disease, unspecified; K70.30 Alcoholic cirrhosis of liver without ascites; Z81.1 Family history of alcohol abuse and dependence; Z80.1 Family history of malignant neoplasm of trachea, bronchus and lung; Z82.49 Family history of ischemic heart disease and other diseases of the circulatory system; Z91.81 History of falling; Z79.51 Long term (current) use of inhaled steroids; Z79.82 Long term (current) use of aspirin; Z79.899 Other long term (current) drug therapy; Z82.5 Family history of asthma and other chronic lower respiratory diseases; Z88.5 Allergy status to narcotic agent; Z88.7 Allergy status to serum and vaccine; Z28.82 Immunization not carried out because of caregiver refusal; Z83.6 Family history of other diseases of the respiratory system
CPT/HCPCS: 36415; 70450; 70496; 70498; 71045; 80053; 80306; 80320; 81003; 84484; 85025; 85610; 85730; 87324; 93005; 94640; 94760; 96374; 99285

== ENCOUNTER 2022-05-29 12:59 | Emergency (ER) | payer OTHER ==
[2022-05-29 13:06] VITALS: BP 110/89; PULSE 96; RESP 20; TEMP 98.2
--- NOTE | 2022-05-29 13:50 | ED ---
Back Pain HPI - General Chief Complaint: Back Pain/Injury Stated Complaint: CYST ON HEAD Time Seen by Provider: 05/29/22 13:21 Source: patient, EMS, RN notes reviewed Limitations: no limitations - History of Present Illness Initial Comments: 62-year-old female presents emergency from chief complaint of head neck pain. This is chronic in nature. Patient was just evaluated for her which she had a CT. Patient has a known colic cysts in which she sees neurologist for his has been there for 6 years. Patient states that the recommended follow-up with neurosurgery so she presented back to the ER today. Patient has no acute changes denies any new weakness or pain. Patient states that she has no chest pain shortness breath no blurred vision no other complaints. - Related Data Home Medications Medication Instructions Recorded Confirmed Aspirin EC [Ecotrin Low Dose] 81 mg PO DAILY 02/11/19 05/26/22 Metoprolol Succinate (ER) [Toprol 50 mg PO DAILY 06/13/21 05/26/22 XL] Pantoprazole [Protonix] 40 mg PO DAILY 06/13/21 05/26/22 Fluticasone Nasal [place] [Flonase 1 spr EA NOSTRIL DAILY 02/14/22 05/26/22 Nasal [place]] Magnesium Oxide 400 mg PO DAILY 02/14/22 05/26/22 Brimonidine Tartrate [Alphagan P 1 drop BOTH EYES BID 03/15/22 05/26/22 0.2% Ophth Soln] Budesonide/Formoterol Fumarate 2 puff INHALATION RT-BID 03/15/22 05/26/22 [Symbicort 160-4.5 Mcg Inhaler] Ipratropium-Albuterol Nebulize 3 ml INHALATION RT-QID PRN 03/15/22 05/26/22 [Duoneb 0.5 mg-3 mg/3 ml Soln] Previous Rx's Medication Instructions Recorded Atorvastatin [Lipitor] 80 mg PO HS 30 Days #30 tab 04/22/21 Isosorbide Mononitrate ER [Imdur] 30 mg PO DAILY 30 Days #30 04/22/21 tab.er.24h Clopidogrel [Plavix] 75 mg PO DAILY 30 Days #30 tab 05/18/22 Thiamine [Vitamin B-1] 100 mg PO BID 30 Days #60 tab 05/18/22 Multivitamins, Thera [Multivitamin 1 each PO DAILY tab 05/27/22 (formulary)] Thiamine [Vitamin B-1] 100 mg PO BID-W/MEALS tab 05/27/22 Allergies Allergy/AdvReac Type Severity Reaction Status Date / Time Influenza Virus Vaccines AdvReac Nausea & Verified 05/29/22 13:06 Vomiting morphine AdvReac Nausea & Verified 05/29/22 13:06 Vomiting Review of Systems ROS Statement: Those systems with pertinent positive or pertinent negative responses have been documented in the HPI. ROS Other: All systems not noted in ROS Statement are negative. Past Medical History Past Medical History: Asthma, Coronary Artery Disease (CAD), COPD, CVA/TIA, Hypertension, Liver Disease, Myocardial Infarction ([place]), Seizure Disorder, Va scular Disorder Additional Past Medical History / Comment(s): Pt recently admitted to [facility] on 04/16/21 acute exacerbation COPD/tracheobronchitis. 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 Last Myocardial Infarction Date:: aug 2018 History of Any Multi-Drug Resistant Organisms: None Reported Past Surgical History: Cholecystectomy, Heart Catheterization, Orthopedic Surgery Additional Past Surgical History / Comment(s): L caratid stent, bilateral knee surgeries for tendon repair, bartholian cyst removed bilateral wrists Past Anesthesia/Blood Transfusion Reactions: Motion Sickness Additional Past Anesthesia/Blood Transfusion Reaction / Comment(s): Pt has received blood without reaction. Past Psychological History: Anxiety, Depression Smoking Status: Current every day smoker, Light tobacco smoker Past Alcohol Use History: Occasional Past Drug Use History: Marijuana - Past Family History Mother Family Medical History: Cancer, Congestive Heart Failure (CHF), Coronary Artery Disease (CAD), Hyperlipidemia Additional Family Medical History / Comment(s): Mother at age 85 from lung cancer. Father Family Medical History: Cancer, COPD Additional Family Medical History / Comment(s): Father at age 63 from lung cancer. Brother(s) Additional Family Medical History / Comment(s): Patient has a total of 7 siblings. 5 are alive without any major medical problems she is aware of. 2 siblings have one from alcohol abuse and 1. Coronary artery disease. Daughter(s) Additional Family Medical History / Comment(s): Patient has one daughter with no major medical problems. General Exam Limitations: no limitations General appearance: alert, in no apparent distress Head exam: Present: atraumatic, normocephalic, normal inspection Eye exam: Present: normal appearance, PERRL, EOMI. Absent: scleral icterus, conjunctival injection, periorbital swelling ENT exam: Present: normal exam, mucous membranes moist Neck exam: Present: normal inspection, full ROM. Absent: tenderness, meningismus, lymphadenopathy Respiratory exam: Present: normal lung sounds bilaterally. Absent: respiratory distress, wheezes, rales, rhonchi, stridor Cardiovascular Exam: Present: regular rate, normal rhythm, normal heart sounds. Absent: systolic murmur, diastolic murmur, rubs, gallop, clicks Extremities exam: Present: other (Upper and lower extremity strength 4/5 patient able to walk with her walker., Neurovascular intact) Neurological exam: Present: alert, oriented X3, CN II-XII intact, reflexes normal. Absent: motor sensory deficit Course Vital Signs 05/29/22 13:03 Temperature 98.2 F Pulse Rate 96 Respiratory 20 Rate Blood Pressure 110/89 O2 Sat by Pulse 98 Oximetry Medical Decision Making - Medical Decision Making Patient has colliod cyst on CT which is been there for 6 years. She just had a CT 3 days ago. She has no acute changes no neuro findings. Patient we discharged follow-up neurosurgery as recommended by her neurologist Disposition Clinical Impression: Chronic head pain, Chronic neck pain Disposition: HOME SELF-CARE Condition: Stable Instructions (If sedation given, give patient instructions): Acute Headache (ED ) Additional Instructions: Please return to the Emergency Department if symptoms worsen or any other concerns. Is patient prescribed a controlled substance at d/c from ED?: No Referrals: Miya Johnson MD [Primary Care Provider] - 1-2 days Time of Disposition: 13:49
[2022-05-29] MEDS ORDERED: IBUPROFEN 600 MG STARTER PACK 4 TAB BTL PO STA (13:59)
== END 2022-05-29 14:19 | disposition home or self-care (01) ==
LOC: EC 12:59
DX: M54.2 Cervicalgia (principal); G93.0 Cerebral cysts; J45.909 Unspecified asthma, uncomplicated; Z86.73 Personal history of transient ischemic attack (TIA), and cerebral infarction without residual deficits; I25.2 Old myocardial infarction; I10 Essential (primary) hypertension; F17.209 Nicotine dependence, unspecified, with unspecified nicotine-induced disorders; Z88.1 Allergy status to other antibiotic agents; Z88.7 Allergy status to serum and vaccine
CPT/HCPCS: 99283

== ENCOUNTER 2022-06-10 16:49 | Inpatient (IN) | payer OTHER ==
[2022-06-10] MEDS ORDERED: SODIUM CHLORIDE 0.9% 1,000 ML IV STA (17:02)
[2022-06-10] MEDS ORDERED: ACETAMINOPHEN TAB 500 MG TAB PO STA (17:02)
[2022-06-10] MEDS ORDERED: LORazepam 2 MG/ML INJ IV STA (17:03)
[2022-06-10] MEDS ORDERED: THIAMINE 100 MG/ML 2 ML VIAL IVP STA (17:06)
--- NOTE | 2022-06-10 17:06 | ED ---
Weakness HPI - General Chief complaint: Weakness Stated complaint: weakness Time Seen by Provider: 06/10/22 16:56 Source: EMS, RN notes reviewed Mode of arrival: EMS Limitations: no limitations - History of Present Illness Initial comments: This is a 62-year-old female with history of coronary artery disease, COPD, previous CVA/TIA, heart disease, seizure disorder. She presents to the emergency department today via EMS after having what she states are mini strokes. However, she states that she's had these intermittent paresthesias to her right side for 4 months. Patient has been previously worked up here. Patient also complaining of generalized weakness but and states she is able to walk with her walker. She also complaining of occipital headache. Patient states she has chronic back pain which is bothering her as well. REVIEW of systems Limited due to patient anxiety and being a poor historian no fever or chills, no changes in vision or hearing, no sore throat or difficulty with speech, no neck pain, no chest pain or shortness of breath, no abdominal pain, no nausea or vomiting, no changes in urination or bowel movements, RIGHT- sided paresthesias, no extremity pain, no skin rashes or lesions. Patient adding a lot of positives on review of systems initially but then contradicts herself. Initially tells me she short of breath and believes she is "having a stroke because she is short of breath. " Past medical, surgical, social, and family history reviewed. - Related Data Home Medications Medication Instructions Recorded Confirmed Aspirin EC [Ecotrin Low Dose] 81 mg PO DAILY 02/11/19 06/10/22 Metoprolol Succinate (ER) [Toprol 50 mg PO DAILY 06/13/21 06/10/22 XL] Pantoprazole [Protonix] 40 mg PO DAILY 06/13/21 06/10/22 Fluticasone Nasal [place] [Flonase 1 spr EA NOSTRIL DAILY 02/14/22 06/10/22 Nasal [place]] Magnesium Oxide 400 mg PO DAILY 02/14/22 06/10/22 Brimonidine Tartrate [Alphagan P 1 drop BOTH EYES BID 03/15/22 06/10/22 0.2% Ophth Soln] Budesonide/Formoterol Fumarate 2 puff INHALATION RT-BID 03/15/22 06/10/22 [Symbicort 160-4.5 Mcg Inhaler] Ipratropium-Albuterol Nebulize 3 ml INHALATION RT-QID PRN 03/15/22 06/10/22 [Duoneb 0.5 mg-3 mg/3 ml Soln] Multivitamins, Thera [Multivitamin 1 tab PO DAILY 06/10/22 06/10/22 (formulary)] Previous Rx's Medication Instructions Recorded Atorvastatin [Lipitor] 80 mg PO HS 30 Days #30 tab 04/22/21 Isosorbide Mononitrate ER [Imdur] 30 mg PO DAILY 30 Days #30 04/22/21 tab.er.24h Clopidogrel [Plavix] 75 mg PO DAILY 30 Days #30 tab 05/18/22 Thiamine [Vitamin B-1] 100 mg PO BID-W/MEALS tab 05/27/22 Allergies Allergy/AdvReac Type Severity Reaction Status Date / Time Influenza Virus Vaccines AdvReac Nausea & Verified 06/10/22 18:07 Vomiting morphine AdvReac Nausea & Verified 06/10/22 18:07 Vomiting Review of Systems ROS Statement: Those systems with pertinent positive or pertinent negative responses have been documented in the HPI. ROS Other: All systems not noted in ROS Statement are negative. Past Medical History Past Medical History: Asthma, Coronary Artery Disease (CAD), COPD, CVA/TIA, Hypertension, Liver Disease, Myocardial Infarction ([place]), Seizure Disorder, Vascular Disorder Additional Past Medical History / Comment(s): Pt recently admitted to [facility] on 04/16/21 acute exacerbation COPD/tracheobronchitis. 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 Last Myocardial Infarction Date:: aug 2018 History of Any Multi-Drug Resistant Organisms: None Reported Past Surgical History: Cholecystectomy, Heart Catheterization, Orthopedic Surgery Additional Past Surgical History / Comment(s): L caratid stent, bilateral knee surgeries for tendon repair, bartholian cyst removed bilateral wrists Past Anesthesia/Blood Transfusion Reactions: Motion Sickness Additional Past Anesthesia/Blood Transfusion Reaction / Comment(s): Pt has received blood without reaction. Past Psychological History: Anxiety, Depression Smoking Status: Current every day smoker, Light tobacco smoker Past Alcohol Use History: Occasional Past Drug Use History: Marijuana - Past Family History Mother Family Medical History: Cancer, Congestive Heart Failure (CHF), Coronary Artery Disease (CAD), Hyperlipidemia Additional Family Medical History / Comment(s): Mother at age 85 from lung cancer. Father Family Medical History: Cancer, COPD Additional Family Medical History / Comment(s): Father at age 63 from lung cancer. Brother(s) Additional Family Medical History / Comment(s): Patient has a total of 7 siblings. 5 are alive without any major medical problems she is aware of. 2 siblings have one from alcohol abuse and 1. Coronary artery disease. Daughter(s) Additional Family Medical History / Comment(s): Patient has one daughter with no major medical problems. General Exam - General Exam Comments Initial Comments: Patient does not appear to have any focal neurologic deficits on my examination. Although the patient is reluctant to cooperate with the exam. Does not appear to be dehydrated. No mottling. Capillary refill less than 2 seconds. Moist mucous membranes Limitations: no limitations General appearance: alert, anxious, in distress Head exam: Present: atraumatic, normocephalic, normal inspection Eye exam: Present: normal appearance, PERRL, EOMI. Absent: scleral icterus, conjunctival injection, periorbital swelling Pupils: Present: normal accommodation. Absent: unequal ENT exam: Present: normal exam, mucous membranes moist Neck exam: Present: normal inspection, full ROM. Absent: tenderness, meningismus, lymphadenopathy Respiratory exam: Present: normal lung sounds bilaterally. Absent: respiratory distress, wheezes, rales, rhonchi, stridor, chest wall tenderness, accessory muscle use, decreased breath sounds, prolonged expiratory Cardiovascular Exam: Present: regular rate, normal rhythm, normal heart sounds. Absent: systolic murmur, diastolic murmur, rubs, gallop, clicks GI/Abdominal exam: Present: soft, normal bowel sounds. Absent: distended, tenderness, guarding, rebound, rigid Extremities exam: Present: normal inspection, full ROM, normal capillary refill. Absent: tenderness, pedal edema, joint swelling, calf tenderness Back exam: Present: normal inspection, full ROM. Absent: muscle spasm, paraspi nal tenderness, vertebral tenderness Neurological exam: Present: alert, oriented X3, CN II-XII intact, other (No definitive focal weakness. Patient able to move all extremities. Subjective paresthesia to right arm and leg.) Psychiatric exam: Present: normal affect, normal mood Skin exam: Present: warm, dry, intact, normal color. Absent: rash Course Vital Signs 06/10/22 16:55 Temperature 98.3 F Pulse Rate 90 Respiratory 18 Rate Blood Pressure 107/82 O2 Sat by Pulse 97 Oximetry - Reevaluation(s) Reevaluation #1: 06/10/22 17:58 Alcohol level came back at 408. Patient will require admission for alcohol intoxication. Pelvic pending further laboratory investigations and CT of the head. We'll plan for admission after that. Reevaluation #2: 06/10/22 18:12 Patient anxiety improved after benzodiazepines. Neurologically intact. Computed tomography scan shows no acute findings. EKG Findings - EKG Comments: EKG Findings:: EKG done at 1659 and read by the ED attending physician reveals sinus rhythm with a rate of 90. Normal axis. T-wave abnormalities located in the lateral leads. However no significant change from the previous study from 05/26/2022. Normal intervals. Medical Decision Making - Medical Decision Making Patient's presentation most consistent with probable anxiety. Patient states she's been having mini strokes but then and says she's had right-sided paresthesias and weakness for some 3-4 months. Patient states that she can't move her right leg but then tells me she can walk with her walker with no issues. Denying any chest pain. States she has chronic back pain. Complaining of a headache. Patient is very difficult to get history from. Order or general neurological workup and planned for reevaluation. - Lab Data Result diagrams: 06/10/22 17:19 06/10/22 17:19 Lab Results 06/10/22 06/10/22 06/10/22 Range/Units 17:19 17:19 17:19 WBC 10.6 (3.8-10.6) k/uL RBC 5.24 (3.80-5.40) m/uL Hgb 15.2 (11.4-16.0) gm/dL Hct 47.7 H (34.0-46.0) % MCV 90.9 (80.0-100.0) fL MCH 28.9 (25.0-35.0) pg MCHC 31.8 (31.0-37.0) g/dL RDW 15.8 H (11.5-15.5) % Plt Count 263 (150-450) k/uL MPV 7.8 Neutrophils % 53 % Lymphocytes % 36 % Monocytes % 5 % Eosinophils % 1 % Basophils % 2 % Neutrophils # 5.6 (1.3-7.7) k/uL Lymphocytes # 3.8 (1.0-4.8) k/uL Monocytes # 0.5 (0-1.0) k/uL Eosinophils # 0.1 (0-0.7) k/uL Basophils # 0.2 (0-0.2) k/uL Sodium 142 (137-145) mmol/L Potassium 3.6 (3.5-5.1) mmol/L Chloride 107 (98-107) mmol/L Carbon Dioxide 25 (22-30) mmol/L Anion Gap 10 mmol/L BUN 9 (7-17) mg/dL Creatinine 0.49 L (0.52-1.04) mg/dL Est GFR (CKD-EPI)AfAm >90 (>60 ml/min/1.73 sqM) Est GFR (CKD-EPI)NonAf >90 (>60 ml/min/1.73 sqM) Glucose 125 H (74-99) mg/dL Calcium 8.5 (8.4-10.2) mg/dL Phosphorus 3.1 (2.5-4.5) mg/dL Magnesium 1.9 (1.6-2.3) mg/dL Total Bilirubin 0.2 (0.2-1.3) mg/dL AST 51 H (14-36) U/L ALT 58 H (4-34) U/L Alkaline Phosphatase 166 H (38-126) U/L Ammonia (<30) umol/L Troponin I <0.012 (0.000-0.034) ng/mL NT-Pro-B Natriuret Pep pg/mL Total Protein 6.6 (6.3-8.2) g/dL Albumin 4.1 (3.5-5.0) g/dL Serum Alcohol 408 H* mg/dL 06/10/22 06/10/22 Range/Units 17:19 17:19 WBC (3.8-10.6) k/uL RBC (3.80-5.40) m/uL Hgb (11.4-16.0) gm/dL Hct (34.0-46.0) % MCV (80.0-100.0) fL MCH (25.0-35.0) pg MCHC (31.0-37.0) g/dL RDW (11.5-15.5) % Plt Count (150-450) k/uL MPV Neutrophils % % Lymphocytes % % Monocytes % % Eosinophils % % Basophils % % Neutrophils # (1.3-7.7) k/uL Lymphocytes # (1.0-4.8) k/uL Monocytes # (0-1.0) k/uL Eosinophils # (0-0.7) k/uL Basophils # (0-0.2) k/uL Sodium (137-145) mmol/L Potassium (3.5-5.1) mmol/L Chloride (98-107) mmol/L Carbon Dioxide (22-30) mmol/L Anion Gap mmol/L BUN (7-17) mg/dL Creatinine (0.52-1.04) mg/dL Est GFR (CKD-EPI)AfAm (>60 ml/min/1.73 sqM) Est GFR (CKD-EPI)NonAf (>60 ml/min/1.73 sqM) Glucose (74-99) mg/dL Calcium (8.4-10.2) mg/dL Phosphorus (2.5-4.5) mg/dL Magnesium (1.6-2.3) mg/dL Total Bilirubin (0.2-1.3) mg/dL AST (14-36) U/L ALT (4-34) U/L Alkaline Phosphatase (38-126) U/L Ammonia 42 H (<30) umol/L Troponin I (0.000-0.034) ng/mL NT-Pro-B Natriuret Pep 58 pg/mL Total Protein (6.3-8.2) g/dL Albumin (3.5-5.0) g/dL Serum Alcohol mg/dL - Radiology Data Radiology results: report reviewed, image reviewed Disposition Clinical Impression: Alcohol intoxication, Anxiety Disposition: ADMITTED IP TO THIS [facility] Condition: Fair Referrals: Miya Johnson MD [Primary Care Provider] - 1-2 days Time of Disposition: 17:57 Decision to Admit Reason: Admit from EC Decision Time: 17:57
[2022-06-10 17:29] LABS: Basophils # (A) 0.2 k/uL (0-0.2); Basophils % (A) 2 %; Eosinophils # (A) 0.1 k/uL (0-0.7); Eosinophils % (A) 1 %; HCT 47.7 % (34.0-46.0); HGB 15.2 gm/dL (11.4-16.0); Lymphocytes # (A) 3.8 k/uL (1.0-4.8); Lymphocytes % (A) 36 %; MCH 28.9 pg (25.0-35.0); MCHC 31.8 g/dL (31.0-37.0); MCV 90.9 fL (80.0-100.0); Mean Platelet Volume 7.8; Monocytes # (A) 0.5 k/uL (0-1.0); Monocytes % (A) 5 %; Neutrophils # (A) 5.6 k/uL (1.3-7.7); Neutrophils % (A) 53 %; Platelet Count 263 k/uL (150-450); RBC 5.24 m/uL (3.80-5.40); RDW 15.8 % (11.5-15.5); WBC 10.6 k/uL (3.8-10.6)
[2022-06-10 17:40] LABS: ALT 58 U/L (4-34); AST 51 U/L (14-36); African American GFR (CKD) >90 (>60 ml/min/1.73 sqM); Albumin 4.1 g/dL (3.5-5.0); Alkaline Phosphatase 166 U/L (38-126); Anion Gap 10 mmol/L; Blood Urea Nitrogen 9 mg/dL (7-17); Calcium 8.5 mg/dL (8.4-10.2); Carbon Dioxide 25 mmol/L (22-30); Chloride 107 mmol/L (98-107); Glucose 125 mg/dL (74-99); Magnesium 1.9 mg/dL (1.6-2.3); Non-African American GFR(CKD) >90 (>60 ml/min/1.73 sqM); Phosphorus 3.1 mg/dL (2.5-4.5); Potassium 3.6 mmol/L (3.5-5.1); Sodium 142 mmol/L (137-145); Total Bilirubin 0.2 mg/dL (0.2-1.3); Total Protein 6.6 g/dL (6.3-8.2)
--- NOTE | 2022-06-10 17:47 | CT ---
EXAMINATION TYPE: CT brain wo con DATE OF EXAM: 06/10/2022 COMPARISON: 05/26/2022 HISTORY: headache and weakness CT DLP: 1094.4 mGycm Automated exposure control for dose reduction was used. Ventricles have normal size. There is no mass effect or midline shift. No sign of intracranial hemorr sanchez there is rounded high density mass at the anterior third ventricle measuring 12 mm and consisten t with colloid cyst. No hydrocephalus. The calvarium is intact. There is mild cerebral atrophy. There is a 2 cm area of cortical hypodensity left posterior parietal lobe consistent with old cortical inf arct without change.There is a 1.5 cm mild hypodensity white matter left posterior frontal lobe consi stent with old lacunar infarct. IMPRESSION: Old infarcts. Mild cerebral atrophy. Colloid cyst. No change compared to old exam.
[2022-06-10 17:54] LABS: Alcohol 408 mg/dL
[2022-06-10] MEDS ORDERED: NALOXONE 0.4 MG/ML 1 ML VIAL IV PRN (18:06)
[2022-06-10] MEDS ORDERED: LORazepam 2 MG/ML INJ IV PRN ×3 (18:09)
[2022-06-10] MEDS ORDERED: PANTOPRAZOLE 40 MG/10 ML VIAL IV SCH ×2 (18:15→22:45)
--- NOTE | 2022-06-10 18:31 | XR ---
EXAMINATION TYPE: XR chest 1V portable DATE OF EXAM: 06/10/2022 COMPARISON: 05/26/2022 HISTORY: Altered mental status TECHNIQUE: Single view FINDINGS: There is no heart failure nor confluent pneumonic infiltrate. Costophrenic angles are clear . IMPRESSION: No active cardiopulmonary disease. No change.
[2022-06-10] MEDS ORDERED: SODIUM CHLORIDE 0.9% 1,000 ML with MVI, ADULT NO.4 WITH VIT K 10 ML, THIAMINE 100 MG, F... IV ONE ×4 (18:45)
[2022-06-10] MEDS: SYMBICORT 160-4.5 MCG INHALER INHALATION SCH (19:35)
--- NOTE | 2022-06-10 22:57 | P.HPIM ---
History of Present Illness H&P Date: 06/10/22 The patient is a 62-year-old female with a PMH of CVA with residual right-sided weakness, carotid stenosis status post left carotid stenting, EtOH abuse, seizure disorder, coronary artery disease status post IA, and alcoholic cirrhosis who presents to the emergency room with complaints of shortness of breath and intermittent weakness. The patient reports that she believes she had another stroke. The patient is a relatively poor historian and states that although she has chronic lower back pain with bilateral lower extremity weakness, that her weakness intermittently gets worse. She also reports shortness of breath since the morning without chest discomfort, which she reports is also chronic. The patient denies regular alcohol use but states that she had 3 shots of whiskey and a glass of alcohol today, in an attempt to alleviate her lower back pain, which she reports is chronic and unchanged. She reports that her main concern is another stroke, in light of her persistent lower extremity weakness. She reports being unable to ambulate as a result. Of note, the patient was admitted to the hospital with similar complaints on 05/26, at which time the patient's symptoms resolved spontaneously, was cleared by neurology, and a subsequent leak discharge. The patient has been admitted multiple times for concerns of stroke with alcohol intoxication and complaints of shortness of breath. Laboratory evaluation in the emergency room revealed a serum alcohol level of 408, alkaline phosphatase 166, AST 51, ALT 58. Chest x- ray was unremarkable with EKG showing sinus rhythm at 90 bpm with T-wave inversion in leads V3 through V6 as well as flattening in lead 3. CT brain revealed old infarcts. Review of systems: Pertinent positives and negatives as discussed in HPI, a complete review of systems was performed and all other systems are negative. Physical examination: General: non toxic, no distress, appears at stated age, obese Derm: no unusual rashes/lesions, warm Head: atraumatic, normocephalic, symmetric Eyes: EOMI, no lid lag, anicteric sclera, pupils equal round reactive to light ENT: Nose and ears atraumatic Neck: No cervical lymphadenopathy, trachea midline, supple Mouth: no lip lesion, mucus membranes moist Cardiovascular: S1S2 reg, no murmur, positive dorsalis pedis pulse bilateral, no edema Lungs: CTA bilateral, no rhonchi, no rales, no accessory muscle use Abdominal: soft, nontender to palpation, no guarding Ext: muscle strength 3 out of 5 in bilateral lower extremities with strength 5 out of 5 of bilateral upper extremities, no gross muscle atrophy, no contractures, Neuro: CN II-XI grossly intact, no gross focal neuro deficits Psych: Alert, oriented, appropriate affect Assessment/plan Alcohol intoxication -Advised on the importance of cessation -The patient states that she is not a daily drinker and does not wish to seek any help at this time -WA protocol -Thiamine, multivitamin -IV fluids -Monitor electrolytes -Fall precautions Persistent lower extremity weakness -PT consult -Fall precautions -Neurochecks for now Chronic conditions: CAD, hypertension, seizure disorder -Continue with home meds DVT prophylaxis -Heparin subcu The patient is admitted with an anticipated less than 2 midnight stay for evaluation of EtOH intoxication. CODE STATUS: Full Code Discussed with: Patient Anticipated discharge date: in am Anticipated discharge place: Home Past Medical History Past Medical History: Asthma, Coronary Artery Disease (CAD), COPD, CVA/TIA, Hypertension, Liver Disease, Myocardial Infarction (IA), Seizure Disorder, Vascular Disorder Additional Past Medical History / Comment(s): Pt recently admitted to [facility] on 04/16/21 acute exacerbation COPD/tracheobronchitis. 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 Last Myocardial Infarction Date:: aug 2018 History of Any Multi-Drug Resistant Organisms: None Reported Past Surgical History: Cholecystectomy, Heart Catheterization, Orthopedic Surgery Additional Past Surgical History / Comment(s): L caratid stent, bilateral knee surgeries for tendon repair, bartholian cyst removed bilateral wrists Past Anesthesia/Blood Transfusion Reactions: Motion Sickness Additional Past Anesthesia/Blood Transfusion Reaction / Comment(s): Pt has received blood without reaction. Past Psychological History: Anxiety, Depression Additional Psychological History / Comment(s): Pt states lately her stress/anxiety has been increased. She uses a walker to ambulate. She has a nebulizer. Sheis receiving home care thru [facility]. She no longer drives, her sarah takes her to app. Pt manages her own meds. She states meals are an issue d/t difficulty standing/using a walker. She states is about a month she will be moving into [facility] assistive living. Smoking Status: Current every day smoker, Light tobacco smoker Past Alcohol Use History: Occasional Additional Past Alcohol Use History / Comment(s): Pt started smoking as a teen and has cut down to a few "hits" off a cigarette a day. Pt states she is cutting down on drinking and only drinks on holidays. Past Drug Use History: Marijuana Additional Drug Use History / Comment(s): Pt has medical marijuana but does not use it. - Past Family History Mother Family Medical History: Cancer, Congestive Heart Failure (CHF), Coronary Artery Disease (CAD), Hyperlipidemia Additional Family Medical History / Comment(s): Mother at age 85 from lung cancer. Father Family Medical History: Cancer, COPD Additional Family Medical History / Comment(s): Father at age 63 from lung cancer. Brother(s) Additional Family Medical History / Comment(s): Patient has a total of 7 siblings. 5 are alive without any major medical problems she is aware of. 2 siblings have one from alcohol abuse and 1. Coronary artery disease. Daughter(s) Additional Family Medical History / Comment(s): Patient has one daughter with no major medical problems. Medications and Allergies Home Medications Medication Instructions Recorded Confirmed Type Aspirin EC [Ecotrin Low Dose] 81 mg PO DAILY 02/11/19 06/10/22 History Atorvastatin [Lipitor] 80 mg PO HS 30 Days #30 tab 04/22/21 06/10/22 Rx Isosorbide Mononitrate ER [Imdur] 30 mg PO DAILY 30 Days #30 04/22/21 06/10/22 Rx tab.er.24h Metoprolol Succinate (ER) [Toprol 50 mg PO DAILY 06/13/21 06/10/22 History XL] Pantoprazole [Protonix] 40 mg PO DAILY 06/13/21 06/10/22 History Fluticasone Nasal [place] [Flonase 1 spr EA NOSTRIL DAILY 02/14/22 06/10/22 History Nasal [place]] Magnesium Oxide 400 mg PO DAILY 02/14/22 06/10/22 History Brimonidine Tartrate [Alphagan P 1 drop BOTH EYES BID 03/15/22 06/10/22 History 0.2% Ophth Soln] Budesonide/Formoterol Fumarate 2 puff INHALATION RT-BID 03/15/22 06/10/22 History [Symbicort 160-4.5 Mcg Inhaler] Ipratropium-Albuterol Nebulize 3 ml INHALATION RT-QID PRN 03/15/22 06/10/22 History [Duoneb 0.5 mg-3 mg/3 ml Soln] Clopidogrel [Plavix] 75 mg PO DAILY 30 Days #30 tab 05/18/22 06/10/22 Rx Thiamine [Vitamin B-1] 100 mg PO BID-W/MEALS tab 05/27/22 06/10/22 Rx Multivitamins, Thera [Multivitamin 1 tab PO DAILY 06/10/22 06/10/22 History (formulary)] Allergies Allergy/AdvReac Type Severity Reaction Status Date / Time Influenza Virus Vaccines AdvReac Nausea & Verified 06/10/22 18:07 Vomiting morphine AdvReac Nausea & Verified 06/10/22 18:07 Vomiting Physical Exam Vitals: Vital Signs Temp Pulse Resp BP Pulse Ox 06/10/22 18:58 94 16 98/84 98 06/10/22 17:59 100 16 92/49 100 06/10/22 16:55 98.3 F 90 18 107/82 97 Intake and Output 06/10/22 06/10/22 06/10/22 06:59 14:59 22:59 Other: Weight 74.843 kg Results CBC & Chem 7: 06/10/22 17:19 06/10/22 17:19 Labs: Abnormal Lab Results - Last 24 Hours (Table) 06/10/22 06/10/22 06/10/22 Range/Units 17:19 17:19 17:19 Hct 47.7 H (34.0-46.0) % RDW 15.8 H (11.5-15.5) % Creatinine 0.49 L (0.52-1.04) mg/dL Glucose 125 H (74-99) mg/dL GGT (12-43) U/L AST 51 H (14-36) U/L ALT 58 H (4-34) U/L Alkaline Phosphatase 166 H (38-126) U/L Ammonia 42 H (<30) umol/L Serum Alcohol 408 H* mg/dL 06/10/22 Range/Units 17:19 Hct (34.0-46.0) % RDW (11.5-15.5) % Creatinine (0.52-1.04) mg/dL Glucose (74-99) mg/dL GGT 653 H (12-43) U/L AST (14-36) U/L ALT (4-34) U/L Alkaline Phosphatase (38-126) U/L Ammonia (<30) umol/L Serum Alcohol mg/dL
[2022-06-10] MEDS: HEPARIN SODIUM,PORCINE/PF 5,000 UNIT/0.5 ML SYRINGE SQ SCH (23:01)
[2022-06-10] MEDS: BRIMONIDINE TARTRATE 0.2% DROPS 5 ML BTL BOTH EYES SCH (23:01)
[2022-06-10] MEDS: ONDANSETRON 4 MG/2 ML VIAL IVP PRN (23:01)
[2022-06-10] MEDS: ATORVASTATIN 80 MG TAB PO SCH (23:01)
[2022-06-10] MEDS ORDERED: MORPHINE SULFATE 2 MG/ML SYRINGE IVP PRN (23:23)
[2022-06-11] MEDS: IPRATROPIUM-ALBUTEROL 3 ML NEB INHALATION PRN ×4 (00:13→23:56)
[2022-06-11 06:14] LABS: Appearance,Urine Clear (Clear); Bilirubin,Urine Negative (Negative); Blood,Urine Negative (Negative); Color,Urine Light Yellow; Glucose,Urine (UA) Negative (Negative); Ketones,Urine Negative (Negative); Leukocyte Esterase,Urine Negative (Negative); Nitrite,Urine Negative (Negative); PH, Urine 5.5 (5.0-8.0); Protein,Urine Negative (Negative); Specific Gravity,Urine 1.013 (1.001-1.035); Urobilinogen,Urine <2.0 mg/dL (<2.0)
[2022-06-11] MEDS: SYMBICORT 160-4.5 MCG INHALER INHALATION SCH ×2 (08:12→20:48)
[2022-06-11] MEDS: FLUTICASONE 50MCG/SPRAY NASAL 16GM EA NOSTRIL SCH (09:00)
[2022-06-11] MEDS: THIAMINE 100 MG TAB PO SCH ×2 (09:26→17:58)
[2022-06-11] MEDS: PANTOPRAZOLE 40 MG TABLET PO SCH (09:26)
[2022-06-11] MEDS: CLOPIDOGREL 75 MG TAB PO SCH (09:26)
[2022-06-11] MEDS: METOPROLOL SUCCINATE (ER) 50 MG TAB.ER.24H PO SCH (09:26)
[2022-06-11] MEDS: ISOSORBIDE MONONITRATE ER 30 MG TAB.ER.24H PO SCH (09:26)
[2022-06-11] MEDS: ONDANSETRON 4 MG/2 ML VIAL IVP PRN ×2 (09:26→16:31)
[2022-06-11] MEDS: MAGNESIUM OXIDE 400 MG TAB PO SCH (09:26)
[2022-06-11] MEDS: MULTIVITAMINS, THERA 1 EACH TAB PO SCH (09:26)
[2022-06-11] MEDS: ASPIRIN 81 MG PO SCH (09:26)
[2022-06-11] MEDS: FOLIC ACID 1 MG TAB PO SCH (09:26)
[2022-06-11] MEDS: HEPARIN SODIUM,PORCINE/PF 5,000 UNIT/0.5 ML SYRINGE SQ SCH ×2 (09:26→17:23)
[2022-06-11] MEDS: BRIMONIDINE TARTRATE 0.2% DROPS 5 ML BTL BOTH EYES SCH ×2 (09:27→20:41)
[2022-06-11] MEDS: PROCHLORPERAZINE INJ 10 MG/2 ML VIAL IVP PRN ×2 (12:54→17:53)
--- NOTE | 2022-06-11 14:36 | P.PN ---
Subjective Progress Note Date: 06/11/22 Patient still complaining of weakness in her legs. Has not been ambulating. She was counseled extensively on cessation of alcohol today. Her CT of the head was negative for hemorrhage. 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 Pending PT consultation. Gen: awake, alert HEENT: normocephalic, atraumatic, good hearing acuity, moist mucous membranes Resp: good air exchange, breathing comfortably with no accessory muscle use CVS: good distal perfusion x 4, GI: soft, NTTP, ND : no SPT, no CVAT, carranza catheter not present MSK: no pitting edema, no clubbing Neuro: Bilateral lower extremity weakness Psych: cooperative, euthymic mood Assessment/plan: Alcohol intoxication -Advised on the importance of cessation -The patient states that she is not a daily drinker and does not wish to seek any help at this time -The patient will consider seeking help after revisiting this conversation regarding alcohol cessation this morning. Social work to provide resources. -CIWA protocol -Thiamine, multivitamin -IV fluids -Monitor electrolytes -Fall precautions Persistent lower extremity weakness -PT consult -Fall precautions -Neurochecks for now Chronic conditions: CAD, hypertension, seizure disorder -Continue with home meds DVT prophylaxis -Heparin subcu The patient is admitted with an anticipated less than 2 midnight stay for evaluation of EtOH intoxication. CODE STATUS: Full Code Discussed with: Patient Anticipated discharge date: in am Anticipated discharge place: Home Objective - Vital Signs Vital signs: Vital Signs Temp 97.6 F 06/11/22 14:27 Pulse 94 06/11/22 14:27 Resp 18 06/11/22 14:27 BP 124/78 06/11/22 14:27 Pulse Ox 95 06/11/22 14:27 FiO2 Intake & Output 06/10/22 06/11/22 06/11/22 18:59 06:59 18:59 Intake Total 500 Balance 500 Weight 74.843 kg 74.843 kg Intake: Oral 500 Other: Voiding Method Toilet Toilet Diaper Diaper # Voids 1 - Labs CBC & Chem 7: 06/10/22 17:19 06/10/22 17:19 Labs: Abnormal Lab Results - Last 24 Hours (Table) 06/10/22 06/10/22 06/10/22 Range/Units 17:19 17:19 17:19 Hct 47.7 H (34.0-46.0) % RDW 15.8 H (11.5-15.5) % Creatinine 0.49 L (0.52-1.04) mg/dL Glucose 125 H (74-99) mg/dL GGT (12-43) U/L AST 51 H (14-36) U/L ALT 58 H (4-34) U/L Alkaline Phosphatase 166 H (38-126) U/L Ammonia 42 H (<30) umol/L Serum Alcohol 408 H* mg/dL 06/10/22 Range/Units 17:19 Hct (34.0-46.0) % RDW (11.5-15.5) % Creatinine (0.52-1.04) mg/dL Glucose (74-99) mg/dL GGT 653 H (12-43) U/L AST (14-36) U/L ALT (4-34) U/L Alkaline Phosphatase (38-126) U/L Ammonia (<30) umol/L Serum Alcohol mg/dL
[2022-06-11] MEDS: ACETAMINOPHEN TAB 325 MG TAB PO PRN (17:50)
[2022-06-11 18:38] LABS: Urine Alcohol Positive (Negative); Urine Barbiturate Negative (Negative); Urine Cocaine Negative (Negative); Urine Methadone Negative (Negative); Urine Opiates Negative (Negative); Urine Phencyclidine Negative (Negative)
[2022-06-11] MEDS: ATORVASTATIN 80 MG TAB PO SCH (20:41)
[2022-06-12] MEDS: HEPARIN SODIUM,PORCINE/PF 5,000 UNIT/0.5 ML SYRINGE SQ SCH ×4 (00:12→23:15)
[2022-06-12 04:23] LABS: INR 1.2 (<1.2); Partial Thromboplastin Time 36.6 sec (22.0-30.0); Prothrombin Time 12.3 sec (9.0-12.0)
[2022-06-12] MEDS: ONDANSETRON 4 MG/2 ML VIAL IVP PRN (04:55)
[2022-06-12] MEDS: SYMBICORT 160-4.5 MCG INHALER INHALATION SCH ×2 (07:26→19:08)
[2022-06-12] MEDS: FLUTICASONE 50MCG/SPRAY NASAL 16GM EA NOSTRIL SCH (08:27)
[2022-06-12] MEDS: MAGNESIUM OXIDE 400 MG TAB PO SCH (08:32)
[2022-06-12] MEDS: FOLIC ACID 1 MG TAB PO SCH (08:32)
[2022-06-12] MEDS: METOPROLOL SUCCINATE (ER) 50 MG TAB.ER.24H PO SCH (08:32)
[2022-06-12] MEDS: ISOSORBIDE MONONITRATE ER 30 MG TAB.ER.24H PO SCH (08:32)
[2022-06-12] MEDS: THIAMINE 100 MG TAB PO SCH ×2 (08:32→16:46)
[2022-06-12] MEDS: CLOPIDOGREL 75 MG TAB PO SCH (08:32)
[2022-06-12] MEDS: MULTIVITAMINS, THERA 1 EACH TAB PO SCH (08:32)
[2022-06-12] MEDS: ASPIRIN 81 MG PO SCH (08:32)
[2022-06-12] MEDS: PANTOPRAZOLE 40 MG TABLET PO SCH (08:32)
[2022-06-12] MEDS: BRIMONIDINE TARTRATE 0.2% DROPS 5 ML BTL BOTH EYES SCH ×2 (08:33→19:50)
[2022-06-12 09:43] LABS: African American GFR (CKD) 108.4 (60.0-200.0); Albumin/Globulin Ratio 1.74 (1.60-3.17); Anion Gap 13.8 mmol/L (10.00-18.00); BUN/Creat Ratio 9.43 Ratio (12.00-20.00); Bilirubin, Conjugated 0.3 mg/dL (0.20-0.40); Bilirubin,Unconjugated 0.6 mg/dL (0.20-1.00); Blood Urea Nitrogen 6.6 mg/dL (9.0-27.0); Calcium 8.5 mg/dL (8.7-10.3); Carbon Dioxide 23.2 mmol/L (20.0-27.5); Globulin 2.3 g/dL (1.6-3.3); Magnesium 1.7 mg/dL (1.5-2.4); Non-African American GFR(CKD) 93.5 (60.0-200.0); Potassium 3.4 mmol/L (3.5-5.5); Total Bilirubin 0.9 mg/dL (0.30-1.20); Total Protein 6.3 g/dL (6.2-8.2)
[2022-06-12 11:00] LABS: Basophils # (A) 0.08 X 10*3/uL (0.00-0.10); Basophils % (A) 1.2 %; Eosinophils # (A) 0.07 X 10*3/uL (0.04-0.35); HCT 39.9 % (37.2-46.3); HGB 12.9 g/dL (12.0-15.0); Immature Grans, Automated 0.1 %; Lymphocytes # (A) 1.81 X 10*3/uL (0.90-5.00); Lymphocytes % (A) 26.2 %; MCH 29.5 pg (27.0-32.0); MCHC 32.3 g/dL (32.0-37.0); MCV 91.1 fL (80.0-97.0); Mean Platelet Volume 10.8 fL (9.5-12.2); Monocytes # (A) 0.64 X 10*3/uL (0.20-1.00); Monocytes % (A) 9.3 %; NRBC Per 100 WBC 0 /100 WBCS (0.0-0.0); Neutrophils # (A) 4.29 X 10*3/uL (1.80-7.70); Neutrophils % (A) 62.2 %; Platelet Count 110 X 10*3/uL (140-440); RBC 4.38 X 10*6/uL (4.10-5.20)
[2022-06-12] MEDS ORDERED: POTASSIUM CHLORIDE ER 20 MEQ TAB.ER PO STA (11:59)
[2022-06-12] MEDS: LACTATED RINGERS 1,000 ML IV SCH (17:38)
--- NOTE | 2022-06-12 18:48 | P.PN ---
Subjective Progress Note Date: 06/12/22 (delayed charting seen at 0845) Patient is a 62-year-old female with a history of CVA with residual right-sided weakness, carotid throat stenosis status post left radical stenting, alcohol a buse, seizure disorder, coronary artery disease, alcoholic cirrhosis who presented to the emergency department with shortness of breath and weakness. She was ultimately found to have alcohol intoxication along with lower extremity weakness and was admitted for further monitoring. She initially was held in place and rehab for alcohol abuse. Patient seen and examined at bedside. She reports she has been having persistent diarrhea for the last 1 day. She reports that she has not ate anything in the last 3 days. She deneis any over abdominal pain but does complain of some cramping. General: non toxic, no distress, appears at stated age Derm: warm, dry Head: atraumatic, normocephalic, symmetric Eyes: EOMI, no lid lag, anicteric sclera Mouth: no lip lesion, mucus membranes moist Cardiovascular: S1S2 reg, no murmur, positive posterior tibial pulse bilateral, Lungs: DEcrease bs bilateral, no rhonchi, no rales , no accessory muscle use Abdominal: soft, +tender to palpation RLQ and LLQ, no guarding, no appreciable organomegaly Ext: no gross muscle atrophy, no edema, no contractures Neuro: CN II-XI grossly intact, no focal neuro deficits Psych: Alert, oriented, appropriate affect Assessment/plan: Persistent diarrhea -Stat labs checked and reviewed with potassium 3.4 consistent with diarrheal state, lipase negative -Per nursing unsure if patient has been tolerating diet -We will check a KUB to assess for possible ileus versus obstruction -Check C. diff -If improvement anticipate home in a.m. ETOH intoxication - with impending withdrawal - CIWA - Thiamaine supplement Transaminitis, worsening - anticipate related to ETOH ansumption - repeat in AM - Maddreys 6.2 Thrombocytopenia - worsening - repeat in AM Persistent leak -Has received he was minimal assistance to supervision Chronic conditions: Coronary artery disease Hypertension Seizure disorder COPD without exacerbation Patient transitioned to inpatient status. D/W EM who will take patient over in AM. Objective - Vital Signs Vital signs: Vital Signs Temp 98.4 F 06/12/22 14:59 Pulse 91 06/12/22 14:59 Resp 18 06/12/22 14:59 BP 112/79 06/12/22 14:59 Pulse Ox 96 06/12/22 14:59 FiO2 Intake & Output 06/11/22 06/12/22 06/12/22 18:59 06:59 18:59 Other: Voiding Method Toilet Bedpan Diaper Diaper # Voids 1 2 1 # Bowel Movements 1 1 - Labs CBC & Chem 7: 06/12/22 03:56 06/12/22 03:56 Labs: Abnormal Lab Results - Last 24 Hours (Table) 06/12/22 06/12/22 06/12/22 Range/Units 03:56 03:56 03:56 RDW 15.0 H (11.5-14.5) % Plt Count 110 L (140-440) X 10*3/uL PT 12.3 H (9.0-12.0) sec INR 1.2 H (<1.2) APTT 36.6 H (22.0-30.0) sec Potassium 3.4 L (3.5-5.5) mmol/L BUN 6.6 L (9.0-27.0) mg/dL BUN/Creatinine Ratio 9.43 L (12.00-20.00) Ratio Glucose 112 H (70-110) mg/dL Calcium 8.5 L (8.7-10.3) mg/dL AST 135 H (13-35) U/L ALT 138 H (8-44) U/L Alkaline Phosphatase 203 H (41-126) U/L
--- NOTE | 2022-06-12 18:58 | XR ---
EXAMINATION TYPE: XR abdomen 2V DATE OF EXAM: 06/12/2022 COMPARISON: 02/11/2019 HISTORY: Diarrhea TECHNIQUE: 3 views supine and upright FINDINGS: No evidence of intestinal obstruction or pneumoperitoneum. Fecal pattern is normal. No evid ence of a mass. There are no pathologic calcifications over the kidneys. There are clips from cholecy stectomy. Lung bases are clear. IMPRESSION: Nonacute abdomen. No adverse change.
[2022-06-12] MEDS: IPRATROPIUM-ALBUTEROL 3 ML NEB INHALATION PRN (19:08)
[2022-06-12] MEDS: ATORVASTATIN 80 MG TAB PO SCH (19:49)
[2022-06-12] MEDS: ACETAMINOPHEN TAB 325 MG TAB PO PRN (19:49)
[2022-06-13] MEDS: ONDANSETRON 4 MG/2 ML VIAL IVP PRN (00:31)
[2022-06-13 03:44] VITALS: RESP 18
[2022-06-13] MEDS: LACTATED RINGERS 1,000 ML IV SCH (05:25)
[2022-06-13] MEDS: IPRATROPIUM-ALBUTEROL 3 ML NEB INHALATION PRN (08:15)
[2022-06-13] MEDS: SYMBICORT 160-4.5 MCG INHALER INHALATION SCH (08:16)
[2022-06-13] MEDS: ASPIRIN 81 MG PO SCH (08:41)
[2022-06-13] MEDS: THIAMINE 100 MG TAB PO SCH (08:41)
[2022-06-13] MEDS: MULTIVITAMINS, THERA 1 EACH TAB PO SCH (08:41)
[2022-06-13] MEDS: CLOPIDOGREL 75 MG TAB PO SCH (08:41)
[2022-06-13] MEDS: ISOSORBIDE MONONITRATE ER 30 MG TAB.ER.24H PO SCH (08:41)
[2022-06-13] MEDS: FOLIC ACID 1 MG TAB PO SCH (08:42)
[2022-06-13] MEDS: BRIMONIDINE TARTRATE 0.2% DROPS 5 ML BTL BOTH EYES SCH (08:42)
[2022-06-13] MEDS: MAGNESIUM OXIDE 400 MG TAB PO SCH (08:42)
[2022-06-13] MEDS: PANTOPRAZOLE 40 MG TABLET PO SCH (08:42)
[2022-06-13] MEDS: FLUTICASONE 50MCG/SPRAY NASAL 16GM EA NOSTRIL SCH (08:42)
[2022-06-13] MEDS: HEPARIN SODIUM,PORCINE/PF 5,000 UNIT/0.5 ML SYRINGE SQ SCH (08:42)
[2022-06-13] MEDS: METOPROLOL SUCCINATE (ER) 50 MG TAB.ER.24H PO SCH (08:42)
[2022-06-13 09:05] VITALS: BP 138/86; PULSE 82; TEMP 98.2
[2022-06-13 09:12] LABS: Albumin 3.5 g/dL (3.8-4.9); Albumin/Globulin Ratio 1.67 (1.60-3.17); Anion Gap 10.3 mmol/L (10.00-18.00); BUN/Creat Ratio 6.33 Ratio (12.00-20.00); Blood Urea Nitrogen 3.8 mg/dL (9.0-27.0); Calcium 8.4 mg/dL (8.7-10.3); Carbon Dioxide 25.7 mmol/L (20.0-27.5); Globulin 2.1 g/dL (1.6-3.3); Non-African American GFR(CKD) 98.4 (60.0-200.0); Potassium 3.6 mmol/L (3.5-5.5); Total Bilirubin 0.3 mg/dL (0.30-1.20); Total Protein 5.6 g/dL (6.2-8.2)
[2022-06-13] MEDS ORDERED: POTASSIUM CHLORIDE ER 20 MEQ TAB.ER PO STA (12:17)
--- NOTE | 2022-06-14 02:21 | P.DS ---
Providers Date of admission: 06/12/22 13:39 Expected date of discharge: 06/13/22 Attending physician: Mark Cardoza Primary care physician: Miya Johnson Hospital Course: Final diagnosis Persistent diarrhea ETOH intoxication with acute withdrawal Transaminitis Thrombocytopenia Coronary artery disease Hypertension Seizure disorder COPD without exacerbation Full code Discharge disposition Patient is being discharged in a stable condition with guarded prognosis to home . Patient will follow-up with Dr. Johnson in the outpatient setting upon discharge. Patient is to continue to avoid alcohol use. Total time taken is greater than 35 minutes. Hospital course This is a 62-year-old female who was recently admitted with ETOH intoxication and was being closely monitored. Patient also developed some diarrhea which has improved. Patient has had multiple readmission for etoh abuse and continues to be high risk for readmissions. Patient continues to drink and use tobacco. Currently no reports of chest pain, shortness of breath, or palpitations. Patient is afebrile. No reports of nausea or vomiting and patient is tolerating diet. Patient will be discharged home today. Physical exam: Gen: This is a 62 year old who is awake, alert, and oriented x3. HEENT: Head is atraumatic, normocephalic. Pupils equal, round. Sclerae is anicteric. NECK: Supple. No JVD. No lymphadenopathy. No thyromegaly. LUNGS: Clear to auscultation. No wheezes or rhonchi. No intercostal retractions. HEART: Regular rate and rhythm. No murmur. ABDOMEN: Soft. Bowel sounds are present. No masses. No tenderness. EXTREMITIES: No pedal edema. No calf tenderness. NEUROLOGICAL: Patient is awake, alert and oriented x3. Cranial nerves 2 through 12 are grossly intact. Please refer to medication reconciliation sheet for a list of medications. The impression and plan of care has been dictated by Tonya Adan, Nurse Practitioner as directed. Dr. Jackelin MD I have performed a history and examination and MDM of this patient, discussed the same with the dictator, and agree with the dictator's assessment and plan as written ,documented as a scribe. Based on total visit time, I have performed more than 50% of the visit. Patient Condition at Discharge: Fair Plan - Discharge Summary Discharge Rx Participant: No New Discharge Prescriptions: New Folic Acid 1 mg PO DAILY #30 tab Acetaminophen Tab [Tylenol] 650 mg PO Q6HR PRN tab PRN Reason: Mild Pain Or Fever > 100.5 Ondansetron Odt [Zofran Odt] 4 mg PO Q8HR PRN #20 tab PRN Reason: Nausea Continue Aspirin EC [Ecotrin Low Dose] 81 mg PO DAILY Atorvastatin [Lipitor] 80 mg PO HS 30 Days #30 tab Pantoprazole [Protonix] 40 mg PO DAILY Budesonide/Formoterol Fumarate [Symbicort 160-4.5 Mcg Inhaler] 2 puff INHALATION RT-BID Thiamine [Vitamin B-1] 100 mg PO BID-W/MEALS tab Multivitamins, Thera [Multivitamin (formulary)] 1 tab PO DAILY Isosorbide Mononitrate ER [Imdur] 30 mg PO DAILY 30 Days #30 tab.er.24h Metoprolol Succinate (ER) [Toprol XL] 50 mg PO DAILY Fluticasone Nasal [place] [Flonase Nasal [place]] 1 spr EA NOSTRIL DAILY Magnesium Oxide 400 mg PO DAILY Brimonidine Tartrate [Alphagan P 0.2% Ophth Soln] 1 drop BOTH EYES BID Ipratropium-Albuterol Nebulize [Duoneb 0.5 mg-3 mg/3 ml Soln] 3 ml INHALATION RT-QID PRN PRN Reason: Shortness Of Breath Clopidogrel [Plavix] 75 mg PO DAILY 30 Days #30 tab Discharge Medication List Aspirin EC [Ecotrin Low Dose] 81 mg PO DAILY 02/11/19 [History] Atorvastatin [Lipitor] 80 mg PO HS 30 Days #30 tab 04/22/21 [Rx] Isosorbide Mononitrate ER [Imdur] 30 mg PO DAILY 30 Days #30 tab.er.24h 04/22/21 [Rx] Metoprolol Succinate (ER) [Toprol XL] 50 mg PO DAILY 06/13/21 [History] Pantoprazole [Protonix] 40 mg PO DAILY 06/13/21 [History] Fluticasone Nasal [place] [Flonase Nasal [place]] 1 spr EA NOSTRIL DAILY 02/14/22 [History] Magnesium Oxide 400 mg PO DAILY 02/14/22 [History] Brimonidine Tartrate [Alphagan P 0.2% Ophth Soln] 1 drop BOTH EYES BID 03/15/22 [History] Budesonide/Formoterol Fumarate [Symbicort 160-4.5 Mcg Inhaler] 2 puff INHALATION RT-BID 03/15/22 [History] Ipratropium-Albuterol Nebulize [Duoneb 0.5 mg-3 mg/3 ml Soln] 3 ml INHALATION RT-QID PRN 03/15/22 [History] Clopidogrel [Plavix] 75 mg PO DAILY 30 Days #30 tab 05/18/22 [Rx] Thiamine [Vitamin B-1] 100 mg PO BID-W/MEALS tab 05/27/22 [Rx] Multivitamins, Thera [Multivitamin (formulary)] 1 tab PO DAILY 06/10/22 [History] Acetaminophen Tab [Tylenol] 650 mg PO Q6HR PRN tab 06/13/22 [Rx] Folic Acid 1 mg PO DAILY #30 tab 06/13/22 [Rx] Ondansetron Odt [Zofran Odt] 4 mg PO Q8HR PRN #20 tab 06/13/22 [Rx] Follow up Appointment(s)/Referral(s): Miya Johnson MD [Primary Care Provider] - [address],[place] [NON-STAFF] - As Needed (Contact for possible ramp build program. ) Activity/Diet/Wound Care/Special Instructions: Activity Limited until follow-up Follow-up with primary care provider on discharge Follow-up with neurologist outpatient Continue heart healthy diet Avoid tobacco and alcohol use Discharge/Stand Alone Forms: AA Meetings [place], Outpatient Counseling, Inp Substance Abuse Facilities, Personal Staffing Program Manager Discharge Disposition: HOME SELF-CARE
== END 2022-06-13 14:17 | disposition home or self-care (01) | DRG 897 ==
LOC: EC 16:49 → 6NMEDSUR 19:37 → OBSVTOIN 06-12 13:39
PROVIDERS: ADMIT Hospitalist; ATTEND Hospitalist
PROC: HZ2ZZZZ Detoxification Services for Substance Abuse Treatment (ICD-10-PCS; principal; 2022-06-12)
DX: F10.129 Alcohol abuse with intoxication, unspecified (principal); I69.351 Hemiplegia and hemiparesis following cerebral infarction affecting right dominant side; K58.0 Irritable bowel syndrome with diarrhea; Y90.8 Blood alcohol level of 240 mg/100 ml or more; K70.30 Alcoholic cirrhosis of liver without ascites; J44.9 Chronic obstructive pulmonary disease, unspecified; I25.2 Old myocardial infarction; I25.10 Atherosclerotic heart disease of native coronary artery without angina pectoris; I10 Essential (primary) hypertension; G89.29 Other chronic pain; D64.9 Anemia, unspecified; R29.6 Repeated falls; G40.909 Epilepsy, unspecified, not intractable, without status epilepticus; F41.9 Anxiety disorder, unspecified; F32.A Depression, unspecified; F17.210 Nicotine dependence, cigarettes, uncomplicated; D69.6 Thrombocytopenia, unspecified; Z63.4 Disappearance and death of family member; Z79.02 Long term (current) use of antithrombotics/antiplatelets; Z79.51 Long term (current) use of inhaled steroids; Z79.82 Long term (current) use of aspirin; Z79.899 Other long term (current) drug therapy; Z80.1 Family history of malignant neoplasm of trachea, bronchus and lung; Z82.49 Family history of ischemic heart disease and other diseases of the circulatory system; Z82.5 Family history of asthma and other chronic lower respiratory diseases; Z88.5 Allergy status to narcotic agent; Z88.7 Allergy status to serum and vaccine; Z71.41 Alcohol abuse counseling and surveillance of alcoholic; Z90.49 Acquired absence of other specified parts of digestive tract
CPT/HCPCS: 36415; 70450; 71045; 74019; 80053; 80076; 80306; 80320; 81003; 82140; 82977; 83690; 83735; 83880; 84100; 84443; 84484; 85025; 85610; 85730; 93005; 94640; 94760; 96374; 96375; 99285

== ENCOUNTER 2022-07-17 18:04 | Emergency (ER) | payer OTHER ==
[2022-07-17 19:45] VITALS: BP 144/89; PULSE 102; RESP 20; TEMP 97.7
[2022-07-17] MEDS ORDERED: KETOROLAC 15 MG/ML 1 ML VIAL IM STA (21:24)
--- NOTE | 2022-07-17 22:38 | XR ---
EXAMINATION TYPE: XR lumbar spine 2 or 3V DATE OF EXAM: 07/17/2022 COMPARISON: 12/24/2020 HISTORY: Pain TECHNIQUE: 3 views FINDINGS: Vertebral abnormal alignment. There is 20% anterior wedging of the L4 vertebra without much change. There is spurring anteriorly at L4 and L5. There is vacuum disc at L4-5. No acute fracture s een. Posterior elements are intact. Abdominal aorta is atheromatous. Sacroiliac joints are intact. IMPRESSION: Old L4 mild compression fracture. No acute fracture seen. Mild spondylotic changes.
--- NOTE | 2022-07-17 22:50 | ED ---
Back Pain [facility] - General Chief Complaint: Back Pain/Injury Stated Complaint: Back pain Time Seen by Provider: 07/17/22 21:00 Source: patient Limitations: no limitations - History of Present Illness Initial Comments: This 62-year-old female presents with a complaint of low back pain. She states that it is fairly severe in nature. It is worse with certain movements. She states that she has chronic low back pain. She is unsure if she fell. She does have a significant history of alcohol abuse and states that she may not have remembered if she fell. She denies any paresthesias. There is no bowel or bladder abnormalities. She has not tried anything for her pain as of yet. There are no other complaints or modifying factors. No fevers or chills. - Related Data Home Medications Medication Instructions Recorded Confirmed Aspirin EC [Ecotrin Low Dose] 81 mg PO DAILY 02/11/19 07/04/22 Metoprolol Succinate (ER) [Toprol 50 mg PO DAILY 06/13/21 07/04/22 XL] Pantoprazole [Protonix] 40 mg PO DAILY 06/13/21 07/04/22 Fluticasone Nasal [place] [Flonase 1 spr EA NOSTRIL DAILY 02/14/22 07/04/22 Nasal [place]] Magnesium Oxide 400 mg PO DAILY 02/14/22 07/04/22 Brimonidine Tartrate [Alphagan P 1 drop BOTH EYES BID 03/15/22 07/04/22 0.2% Ophth Soln] Budesonide/Formoterol Fumarate 1 puff INHALATION RT-BID 03/15/22 07/04/22 [Symbicort 160-4.5 Mcg Inhaler] Ipratropium-Albuterol Nebulize 3 ml INHALATION RT-QID PRN 03/15/22 07/04/22 [Duoneb 0.5 mg-3 mg/3 ml Soln] Multivitamins, Thera [Multivitamin 1 tab PO DAILY 06/10/22 07/04/22 (formulary)] HYDROcodone/APAP 7.5-325MG [[place] 1 tab PO Q6HR PRN 07/03/22 07/04/22 7.5-325] Ketorolac [Toradol] 10 mg PO Q6HR PRN 07/03/22 07/04/22 Simvastatin [Zocor] 40 mg PO HS 07/03/22 07/04/22 Vitamin B Complex 1 each PO DAILY 07/03/22 07/04/22 chlordiazePOXIDE HCl 25 mg PO DIRECTED PRN 07/03/22 07/04/22 [Chlordiazepoxide HCl] Previous Rx's Medication Instructions Recorded Isosorbide Mononitrate ER [Imdur] 30 mg PO DAILY 30 Days #30 04/22/21 tab.er.24h Clopidogrel [Plavix] 75 mg PO DAILY 30 Days #30 tab 05/18/22 Folic Acid 1 mg PO DAILY #30 tab 06/13/22 Ondansetron Odt [Zofran Odt] 4 mg PO Q8HR PRN #20 tab 06/13/22 Cyclobenzaprine [Flexeril] 10 mg PO TID PRN #20 tab 07/17/22 Ibuprofen [Motrin] 800 mg PO Q8H PRN #20 tab 07/17/22 Allergies Allergy/AdvReac Type Severity Reaction Status Date / Time Influenza Virus Vaccines AdvReac Nausea & Verified 07/17/22 19:45 Vomiting morphine AdvReac Nausea & Verified 07/17/22 19:45 Vomiting Review of Systems ROS Statement: Those systems with pertinent positive or pertinent negative responses have been documented in the HPI. ROS Other: All systems not noted in ROS Statement are negative. Past Medical History Past Medical History: Asthma, Coronary Artery Disease (CAD), COPD, CVA/TIA, Eye Disorder, Hypertension, Liver Disease, Myocardial Infarction ([place]), Seizure Disorder, Vascular Disorder Additional Past Medical History / Comment(s): Pt recently admitted to [facility] for diarrhea, ETOH abuse. 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 soon Last Myocardial Infarction Date:: aug 2018 History of Any Multi-Drug Resistant Organisms: None Reported Past Surgical History: Cholecystectomy, Heart Catheterization, Orthopedic Surgery Additional Past Surgical History / Comment(s): L caratid stent, bilateral knee surgeries for tendon repair, bartholian cyst removed bilateral wrists Past Anesthesia/Blood Transfusion Reactions: Motion Sickness Additional Past Anesthesia/Blood Transfusion Reaction / Comment(s): Pt has received blood without reaction. Past Psychological History: Anxiety, Depression Smoking Status: Current every day smoker Past Alcohol Use History: Daily, Heavy Past Drug Use History: Marijuana - Past Family History Mother Family Medical History: Cancer, Congestive Heart Failure (CHF), Coronary Artery Disease (CAD), Hyperlipidemia Additional Family Medical History / Comment(s): Mother at age 85 from lung cancer. Father Family Medical History: Cancer, COPD Additional Family Medical History / Comment(s): Father at age 63 from lung cancer. Brother(s) Additional Family Medical History / Comment(s): Patient has a total of 7 siblings. 5 are alive without any major medical problems she is aware of. 2 siblings have one from alcohol abuse and 1. Coronary artery disease. Daughter(s) Additional Family Medical History / Comment(s): Patient has one daughter with no major medical problems. General Exam - General Exam Comments Initial Comments: GENERAL: The patient is well nourished and well hydrated. VITAL SIGNS: Heart rate, blood pressure, respiratory rate reviewed as recorded in nurse's notes. EYES: Pupils are round and reactive. Extraocular movements are intact. No conjunctival / lid redness or swelling. ENT: No external evidence of injury, swelling, or ecchymosis. Airway is patent. Throat is clear. NECK: Nontender. No swelling or evidence of injury. No subcutaneous emphysema. Trachea is midline. No thyroid mass. HEART: Regular rate and rhythm. Good peripheral pulses. LUNGS/CHEST: Breath sounds clear and equal bilaterally. No rales, rhonchi, or wheezes. No ecchymosis, subcutaneous emphysema, or tenderness. ABDOMEN: Abdomen soft without tenderness. No palpable masses or organomegaly. No peritoneal signs. No abdominal wall swelling or ecchymosis. EXTREMITIES: No extremity tenderness. Normal muscle tone and function. Mild tenderness noted to the paralumbar musculature. NEUROLOGIC: Sensation is grossly intact. Cranial nerve exam reveals face is symmetrical, tongue is midline, speech is clear. SKIN: No abrasions or ecchymosis is noted. No induration or masses noted. PSYCHIATRIC: Alert and oriented. Appropriate behavior and judgment. Limitations: no limitations Course Vital Signs 07/17/22 19:42 Temperature 97.7 F Pulse Rate 102 H Respiratory 20 Rate Blood Pressure 144/89 O2 Sat by Pulse 96 Oximetry Medical Decision Making - Medical Decision Making The patient was seen and examined. An x-ray was taken of the low lumbar spine and this does show a L4 compression fracture which is apparently old. Patient does relate that she's had 2 compression fractures in her lumbar spine previously. It is felt as though she stable for discharge. Old records are reviewed and appears as though she was just hospitalized this past week for significant alcohol intoxication and withdrawals. She states that she only had one shot of alcohol today. She will be prescribed some Motrin and Flexeril. Return parameters are discussed. Close follow-up recommended. Disposition Clinical Impression: Acute low back pain, Chronic back pain, History of compression fracture of spine, Alcohol abuse Disposition: HOME SELF-CARE Condition: Good Instructions (If sedation given, give patient instructions): Acute Low Back Pain (ED), Chronic Back Pain (DC) Prescriptions: Cyclobenzaprine [Flexeril] 10 mg PO TID PRN #20 tab PRN Reason: Pain Ibuprofen [Motrin] 800 mg PO Q8H PRN #20 tab PRN Reason: Pain Is patient prescribed a controlled substance at d/c from ED?: No Referrals: Miya Johnson MD [Primary Care Provider] - 1-2 days Time of Disposition: 22:49
== END 2022-07-17 23:16 | disposition home or self-care (01) ==
LOC: EC 18:04
DX: M48.56XA Collapsed vertebra, not elsewhere classified, lumbar region, initial encounter for fracture (principal); F10.10 Alcohol abuse, uncomplicated; F17.200 Nicotine dependence, unspecified, uncomplicated; J44.9 Chronic obstructive pulmonary disease, unspecified; I10 Essential (primary) hypertension; I25.2 Old myocardial infarction; Z86.73 Personal history of transient ischemic attack (TIA), and cerebral infarction without residual deficits; I25.10 Atherosclerotic heart disease of native coronary artery without angina pectoris; Z88.7 Allergy status to serum and vaccine; Z88.5 Allergy status to narcotic agent; Z79.899 Other long term (current) drug therapy; Z79.51 Long term (current) use of inhaled steroids; Z79.82 Long term (current) use of aspirin
CPT/HCPCS: 72100; 99283; 96372; J1885

== ENCOUNTER 2022-08-06 19:54 | Observation (INO) | payer OTHER ==
[2022-08-06] MEDS ORDERED: ASPIRIN 81 MG PO STA (20:08)
--- NOTE | 2022-08-06 20:12 | ED ---
General Adult HPI - General Stated complaint: Chest Pain Time Seen by Provider: 08/06/22 19:57 Source: EMS Mode of arrival: EMS Limitations: no limitations - History of Present Illness Initial comments: Dictation was produced using [employer] dictation software. please excuse any grammatical, word or spelling errors. Chief Complaint: 62-year-old male presents with chest pain today History of Present Illness: 62-year-old female she presents to emergency departm ent for chest pain. She states it's like a dull chest ache to the anterior chest. Patient states her last for several minutes. Patient reports associated nausea. No vomiting or shortness of breath. No associated diaphoresis. Pain is nonradiating to the extremities. Patient states she has a history of cardiac history. She denies any pain at the bedside. The ROS documented in this emergency department record has been reviewed and confirmed by me. Those systems with pertinent positive or negative responses have been documented in the HPI. All other systems are other negative and/or noncontributory. PHYSICAL EXAM: General Impression: Alert and oriented x3, not in acute distress HEENT: Normocephalic atraumatic, extra-ocular movements intact, pupils equal and reactive to light bilaterally, mucous membranes moist. Cardiovascular: Heart regular rate and rhythm Chest: Able to complete full sentences, no retractions, no tachypnea Abdomen: abdomen soft, non-tender, non-distended, no organomegaly Musculoskeletal: Pulses present and equal in all extremities, no peripheral edema Motor: no focal deficits noted Neurological: CN II-XII grossly intact, no focal motor or sensory deficits noted Skin: Intact with no visualized rashes Psych: Normal affect and mood ED course: 62-year-old female presents to the emergency room for 8 chest with typical features. She does have cardiac risk factors. She had a cardiac catheterization performed in 2019 showing coronary artery disease. Upon arrival are within acceptable limits. Patient denies any chest pain symptoms at this time. She believes she may have had a heart attack earlier. Chest x-ray unremarkable. CBC unremarkable. Metabolic panel shows mild acidosis. Patient. Patient drinking alcohol today. This likely reflects some alcoholic ketoacidosis. Patient reevaluated at bedside at 12:10 AM found to be stable medical condition. She is not complaining of any chest pain. She states that she has no symptoms of chest pain, chest pressure or shortness of breath. EKG interpretation: Ventricular rate 92, sinus rhythm,. Interval 147, care is 85, QTC 410. No MI prolongation, no QTC prolongation, no ST or T-wave changes noted. EKG compared to 06/10/2022 showing no changes. Overall, this EKG is unremarkable - Related Data Home Medications Medication Instructions Recorded Confirmed Aspirin EC [Ecotrin Low Dose] 81 mg PO DAILY 02/11/19 08/06/22 Metoprolol Succinate (ER) [Toprol 50 mg PO DAILY 06/13/21 08/06/22 XL] Pantoprazole [Protonix] 40 mg PO DAILY 06/13/21 08/06/22 Fluticasone Nasal [place] [Flonase 1 spr EA NOSTRIL DAILY 02/14/22 08/06/22 Nasal [place]] Magnesium Oxide 400 mg PO DAILY 02/14/22 08/06/22 Ipratropium-Albuterol Nebulize 3 ml INHALATION RT-QID PRN 03/15/22 08/06/22 [Duoneb 0.5 mg-3 mg/3 ml Soln] Multivitamins, Thera [Multivitamin 1 tab PO DAILY 06/10/22 08/06/22 (formulary)] Simvastatin [Zocor] 40 mg PO HS 07/03/22 08/06/22 Vitamin B Complex 1 cap PO DAILY 07/03/22 08/06/22 Ticagrelor [Brilinta] 90 mg PO BID 08/06/22 08/06/22 Previous Rx's Medication Instructions Recorded Isosorbide Mononitrate ER [Imdur] 30 mg PO DAILY 30 Days #30 04/22/21 tab.er.24h Folic Acid 1 mg PO DAILY #30 tab 06/13/22 Ondansetron Odt [Zofran Odt] 4 mg PO Q8HR PRN #20 tab 06/13/22 Cyclobenzaprine [Flexeril] 10 mg PO TID PRN #20 tab 07/17/22 Ibuprofen [Motrin] 800 mg PO Q8H PRN #20 tab 07/17/22 Allergies Allergy/AdvReac Type Severity Reaction Status Date / Time Influenza Virus Vaccines AdvReac Nausea & Verified 07/17/22 19:45 Vomiting morphine AdvReac Nausea & Verified 07/17/22 19:45 Vomiting Review of Systems ROS Statement: Those systems with pertinent positive or pertinent negative responses have been documented in the HPI. ROS Other: All systems not noted in ROS Statement are negative. Past Medical History Past Medical History: Asthma, Coronary Artery Disease (CAD), COPD, CVA/TIA, Eye Disorder, Hypertension, Liver Disease, Myocardial Infarction ([place]), Seizure Disorder, Vascular Disorder Additional Past Medical History / Comment(s): Pt recently admitted to [facility] for diarrhea, ETOH abuse. 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 soon Last Myocardial Infarction Date:: aug 2018 History of Any Multi-Drug Resistant Organisms: None Reported Past Surgical History: Cholecystectomy, Heart Catheterization, Orthopedic Surgery Additional Past Surgical History / Comment(s): L caratid stent, bilateral knee surgeries for tendon repair, bartholian cyst removed bilateral wrists Past Anesthesia/Blood Transfusion Reactions: Motion Sickness Additional Past Anesthesia/Blood Transfusion Reaction / Comment(s): Pt has received blood without reaction. Past Psychological History: Anxiety, Depression Smoking Status: Current every day smoker Past Alcohol Use History: Daily, Heavy Past Drug Use History: Marijuana - Past Family History Mother Family Medical History: Cancer, Congestive Heart Failure (CHF), Coronary Artery Disease (CAD), Hyperlipidemia Additional Family Medical History / Comment(s): Mother at age 85 from lung cancer. Father Family Medical History: Cancer, COPD Additional Family Medical History / Comment(s): Father at age 63 from lung cancer. Brother(s) Additional Family Medical History / Comment(s): Patient has a total of 7 sibl ings. 5 are alive without any major medical problems she is aware of. 2 siblings have one from alcohol abuse and 1. Coronary artery disease. Daughter(s) Additional Family Medical History / Comment(s): Patient has one daughter with no major medical problems. General Exam Limitations: no limitations Course Vital Signs 08/06/22 08/06/22 19:55 20:09 Temperature 98.3 F Pulse Rate 96 96 Respiratory 20 18 Rate Blood Pressure 124/92 96/74 O2 Sat by Pulse 96 94 L Oximetry Medical Decision Making - Lab Data Result diagrams: 08/06/22 22:31 08/06/22 22:31 Lab Results 08/06/22 08/06/22 Range/Units 22:31 22:31 WBC 9.0 (3.8-10.6) k/uL RBC 5.39 (3.80-5.40) m/uL Hgb 16.2 H (11.4-16.0) gm/dL Hct 50.1 H (34.0-46.0) % MCV 92.8 (80.0-100.0) fL MCH 30.1 (25.0-35.0) pg MCHC 32.4 (31.0-37.0) g/dL RDW 15.0 (11.5-15.5) % Plt Count 196 (150-450) k/uL MPV 8.1 Neutrophils % 38 % Lymphocytes % 50 % Monocytes % 4 % Eosinophils % 2 % Basophils % 3 % Neutrophils # 3.5 (1.3-7.7) k/uL Lymphocytes # 4.5 (1.0-4.8) k/uL Monocytes # 0.4 (0-1.0) k/uL Eosinophils # 0.2 (0-0.7) k/uL Basophils # 0.2 (0-0.2) k/uL Sodium 135 L (137-145) mmol/L Potassium 5.4 H (3.5-5.1) mmol/L Chloride 99 (98-107) mmol/L Carbon Dioxide 14 L (22-30) mmol/L Anion Gap 22 mmol/L BUN 13 (7-17) mg/dL Creatinine 0.60 (0.52-1.04) mg/dL Est GFR (CKD-EPI)AfAm >90 (>60 ml/min/1.73 sqM) Est GFR (CKD-EPI)NonAf >90 (>60 ml/min/1.73 sqM) Glucose 81 (74-99) mg/dL Calcium 8.9 (8.4-10.2) mg/dL Disposition Clinical Impression: Chest pain Disposition: [facility] Condition: Fair Decision Time: 00:10
--- NOTE | 2022-08-06 20:32 | XR ---
EXAMINATION TYPE: XR chest 2V DATE OF EXAM: 08/06/2022 COMPARISON: NONE HISTORY: Chest pain TECHNIQUE: 2 view FINDINGS: Heart and mediastinum are normal. Lungs are clear. Diaphragm is normal. Bony thorax is inta ct. IMPRESSION: Normal chest.
[2022-08-06 23:12] LABS: African American GFR (CKD) >90 (>60 ml/min/1.73 sqM); Anion Gap 22 mmol/L; Blood Urea Nitrogen 13 mg/dL (7-17); Calcium 8.9 mg/dL (8.4-10.2); Carbon Dioxide 14 mmol/L (22-30); Chloride 99 mmol/L (98-107); Glucose 81 mg/dL (74-99); Non-African American GFR(CKD) >90 (>60 ml/min/1.73 sqM); Sodium 135 mmol/L (137-145)
[2022-08-06] MEDS ORDERED: NITROGLYCERIN SL TABS 0.4 MG TAB SUBLINGUAL PRN (23:13)
[2022-08-06 23:20] LABS: Potassium 5.4 mmol/L (3.5-5.1)
[2022-08-06 23:31] LABS: Basophils # (A) 0.2 k/uL (0-0.2); Basophils % (A) 3 %; Eosinophils # (A) 0.2 k/uL (0-0.7); Eosinophils % (A) 2 %; HCT 50.1 % (34.0-46.0); HGB 16.2 gm/dL (11.4-16.0); Lymphocytes # (A) 4.5 k/uL (1.0-4.8); Lymphocytes % (A) 50 %; MCH 30.1 pg (25.0-35.0); MCHC 32.4 g/dL (31.0-37.0); MCV 92.8 fL (80.0-100.0); Mean Platelet Volume 8.1; Monocytes # (A) 0.4 k/uL (0-1.0); Monocytes % (A) 4 %; Neutrophils # (A) 3.5 k/uL (1.3-7.7); Neutrophils % (A) 38 %; Platelet Count 196 k/uL (150-450); RBC 5.39 m/uL (3.80-5.40)
[2022-08-07 00:17] LABS: Prothrombin Time 10.7 sec (9.0-12.0)
[2022-08-07] MEDS: ONDANSETRON 4 MG/2 ML VIAL IVP PRN ×2 (08:24→15:29)
[2022-08-07] MEDS: ASPIRIN 81 MG PO SCH (08:43)
[2022-08-07] MEDS: METOPROLOL SUCCINATE (ER) 50 MG TAB.ER.24H PO SCH (08:43)
[2022-08-07] MEDS: ISOSORBIDE MONONITRATE ER 60 MG TAB.ER.24H PO SCH (08:43)
[2022-08-07] MEDS: TICAGRELOR 90 MG TAB PO SCH ×2 (08:43→21:03)
[2022-08-07 08:58] LABS: Chol/HDL Ratio 3.59 Ratio; LDL Cholesterol,Calculated 99.1 mg/dL (0.0-131.0)
[2022-08-07] MEDS ORDERED: ASPIRIN 325 MG TAB PO SCH (09:00)
[2022-08-07] MEDS ORDERED: ISOSORBIDE MONONITRATE ER 30 MG TAB.ER.24H PO SCH (09:00)
--- NOTE | 2022-08-07 09:28 | P.CRDCN ---
History of Present Illness History of present illness: HISTORY OF PRESENT ILLNESS: This is a 62-year-old female with a past medical history significant for coronary artery disease with chronic total occlusion of the RCA, hypertension, hyperlipidemia, CVA, and alcohol abuse. Patient follows in the office with Dr. Howard. We have been asked to see the patient in consultation for chest pain. Patient examined at the bedside. Patient presented to the hospital for chief complaint of chest pain. She states the pain was in the middle of her chest. She denied any radiation of the pain. This morning she denies any chest pain or pressure. She reports significant nausea this morning. The patient was found to be acutely intoxicated on admission with a serum alcohol of 313. * EKG reveals sinus mechanism with diffuse T-wave inversions, similar to previous EKG. Evidence of LVH. * Chest xray negative for acute process * Laboratory data: WBC 9.0. Hemoglobin 16.2. Platelet count 196. Sodium 135. Potassium 5.4. BUN 13. Creatinine 0.60. Troponin negative 3. * Current home cardiac medications include Brilinta 90 mg twice a day, aspirin 81 mg daily, Imdur 30 mg daily, metoprolol succinate 50 mg daily, simvastatin 40 mg at night * Most recent echocardiogram obtained in May 2022 revealed ejection fraction 50% with mild mitral regurgitation * Cardiac catheterization history: September 2019 revealing chronic total occlusion of the right coronary artery with extensive collaterals from the left. * Patient underwent JOSE in June 2022 with no evidence of intracardiac thrombus, no evidence of shunting across interatrial septum, [id number] mitral regurgitation REVIEW OF SYSTEMS: At the time of my exam: CONSTITUTIONAL: Denies fever or chills. HEENT: Denies blurred vision, vision changes, or eye pain. Denies hemoptysis CARDIOVASCULAR: Denies chest pain. Denies orthopnea. Denies PND. Denies palpitations RESPIRATORY: Denies shortness of breath. GASTROINTESTINAL: Denies abdominal pain. Denies nausea or vomiting. HEMATOLOGIC: Denies bleeding disorders. GENITOURINARY: Denies any blood in urine. SKIN: Denies pruitis. Denies rash. PHYSICAL EXAM: VITAL SIGNS: Reviewed. GENERAL: Well-developed in no acute distress. HEENT: Head is normocephalic. Pupils are equal, round. Sclerae anicteric. Mucous membranes of the mouth are moist. Neck supple. No JVD or thyromegaly LUNGS: Respirations even and unlabored. Lungs essentially clear to auscultation bilaterally. HEART: Regular rate and rhythm. S1 and S2 heard. ABDOMEN: Soft. Nondistended. Nontender. EXTREMITIES: Normal range of motion. No clubbing or cyanosis. Peripheral pulses intact. No lower extremity edema NEUROLOGIC: Awake and alert. Oriented x 3. ASSESSMENT: Chest pain, troponins negative 3 Acute alcohol intoxication Coronary artery disease with chronic total occlusion of RCA Hypertension Hyperlipidemia CVA History of alcohol abuse PLAN: An acute coronary event has been ruled out No need to repeat echo Resume home cardiac medications Increase Imdur to 60mg daily Recommend abstinence from alcohol Further recommendations pending patient course Nurse practitioner note has been reviewed by physician. Signing provider agrees with the documented findings, assessment, and plan of care. Past Medical History Past Medical History: Asthma, Coronary Artery Disease (CAD), COPD, CVA/TIA, Eye Disorder, Hypertension, Liver Disease, Myocardial Infarction ([place]), Seizure Disor joaquín, Vascular Disorder Additional Past Medical History / Comment(s): Pt recently admitted to [facility] for diarrhea, ETOH abuse. 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 soon Last Myocardial Infarction Date:: aug 2018 History of Any Multi-Drug Resistant Organisms: None Reported Past Surgical History: Cholecystectomy, Heart Catheterization, Orthopedic Surgery Additional Past Surgical History / Comment(s): L caratid stent, bilateral knee surgeries for tendon repair, bartholian cyst removed bilateral wrists Past Anesthesia/Blood Transfusion Reactions: Motion Sickness Additional Past Anesthesia/Blood Transfusion Reaction / Comment(s): Pt has received blood without reaction. Past Psychological History: Anxiety, Depression Additional Psychological History / Comment(s): Pt states lately her stress/anxiety has been increased. She uses a walker to ambulate. She has a nebulizer. She no longer drives, Pt manages her own meds. She states meals are an issue d/t difficulty standing/using a walker. Smoking Status: Current every day smoker Past Alcohol Use History: Daily, Heavy Additional Past Alcohol Use History / Comment(s): Pt started smoking as a teen and has cut down to 3-10 cigarettes/day. Pt states she is cutting down on drinking Past Drug Use History: Marijuana Additional Drug Use History / Comment(s): Pt has medical marijuana - Past Family History Mother Family Medical History: Cancer, Congestive Heart Failure (CHF), Coronary Artery Disease (CAD), Hyperlipidemia Additional Family Medical History / Comment(s): Mother at age 85 from lung cancer. Father Family Medical History: Cancer, COPD Additional Family Medical History / Comment(s): Father at age 63 from lung cancer. Brother(s) Additional Family Medical History / Comment(s): Patient has a total of 7 siblings. 5 are alive without any major medical problems she is aware of. 2 siblings have one from alcohol abuse and 1. Coronary artery disease. Daughter(s) Additional Family Medical History / Comment(s): Patient has one daughter with no major medical problems. Medications and Allergies Home Medications Medication Instructions Recorded Confirmed Type Aspirin EC [Ecotrin Low Dose] 81 mg PO DAILY 02/11/19 08/06/22 History Isosorbide Mononitrate ER [Imdur] 30 mg PO DAILY 30 Days #30 04/22/21 08/06/22 Rx tab.er.24h Metoprolol Succinate (ER) [Toprol 50 mg PO DAILY 06/13/21 08/06/22 History XL] Pantoprazole [Protonix] 40 mg PO DAILY 06/13/21 08/06/22 History Fluticasone Nasal [place] [Flonase 1 spr EA NOSTRIL DAILY 02/14/22 08/06/22 History Nasal [place]] Magnesium Oxide 400 mg PO DAILY 02/14/22 08/06/22 History Ipratropium-Albuterol Nebulize 3 ml INHALATION RT-QID PRN 03/15/22 08/06/22 History [Duoneb 0.5 mg-3 mg/3 ml Soln] Multivitamins, Thera [Multivitamin 1 tab PO DAILY 06/10/22 08/06/22 History (formulary)] Folic Acid 1 mg PO DAILY #30 tab 06/13/22 08/06/22 Rx Ondansetron Odt [Zofran Odt] 4 mg PO Q8HR PRN #20 tab 06/13/22 08/06/22 Rx Simvastatin [Zocor] 40 mg PO HS 07/03/22 08/06/22 History Vitamin B Complex 1 cap PO DAILY 07/03/22 08/06/22 History Cyclobenzaprine [Flexeril] 10 mg PO TID PRN #20 tab 07/17/22 08/06/22 Rx Ibuprofen [Motrin] 800 mg PO Q8H PRN #20 tab 07/17/22 08/06/22 Rx Ticagrelor [Brilinta] 90 mg PO BID 08/06/22 08/06/22 History Allergies Allergy/AdvReac Type Severity Reaction Status Date / Time Influenza Virus Vaccines AdvReac Nausea & Verified 07/17/22 19:45 Vomiting morphine AdvReac Nausea & Verified 07/17/22 19:45 Vomiting Physical Exam Vitals: Vital Signs Temp Pulse Pulse Resp BP BP Pulse Ox 08/07/22 07:00 97.9 F 101 H 18 113/79 95 08/07/22 02:25 98.0 F 91 20 119/81 96 08/07/22 01:47 96 18 94 L 08/07/22 01:00 96 16 92 L 08/06/22 23:00 96 20 114/88 94 L 08/06/22 20:09 96 18 96/74 94 L 08/06/22 19:55 98.3 F 96 20 124/92 96 Intake and Output 08/06/22 08/07/22 08/07/22 22:59 06:59 14:59 Other: # Voids 3 Weight 74.843 kg 74.843 kg Results 08/06/22 22:31 08/06/22 22:31 Cardiac Enzymes 08/06/22 08/07/22 08/07/22 Range/Units 23:55 03:51 06:10 Troponin I 0.031 0.028 0.022 (0.000-0.034) ng/mL Coagulation 08/06/22 Range/Units 22:31 PT 10.7 (9.0-12.0) sec APTT 26.0 (22.0-30.0) sec Lipids 08/07/22 Range/Units 03:51 Triglycerides 370.00 H (0.00-149.00) mg/dL Cholesterol 240.00 H (0.00-200.00) mg/dL HDL Cholesterol 66.90 H (40.00-60.00) mg/dL Cholesterol/HDL Ratio 3.59 Ratio CBC 08/06/22 Range/Units 22:31 WBC 9.0 (3.8-10.6) k/uL RBC 5.39 (3.80-5.40) m/uL Hgb 16.2 H (11.4-16.0) gm/dL Hct 50.1 H (34.0-46.0) % Plt Count 196 (150-450) k/uL Comprehensive Metabolic Panel 08/06/22 Range/Units 22:31 Sodium 135 L (137-145) mmol/L Potassium 5.4 H (3.5-5.1) mmol/L Chloride 99 (98-107) mmol/L Carbon Dioxide 14 L (22-30) mmol/L BUN 13 (7-17) mg/dL Creatinine 0.60 (0.52-1.04) mg/dL Glucose 81 (74-99) mg/dL Calcium 8.9 (8.4-10.2) mg/dL Current Medications Generic Name Dose Route Start Last Admin Trade Name Freq PRN Reason Stop Dose Admin Aspirin 81 mg 08/07/22 09:00 08/07/22 08:43 Aspirin 81 Mg PO Not Given DAILY [facility] Atorvastatin Calcium 20 mg 08/07/22 21:00 Atorvastatin 20 Mg Tab PO HS [facility] Isosorbide Mononitrate 60 mg 08/07/22 09:00 08/07/22 08:43 Isosorbide Mononitrate Er 60 Mg Tab.Er.24h PO 60 mg DAILY [facility] Administration Metoprolol Succinate 50 mg 08/07/22 09:00 08/07/22 08:43 Metoprolol Succinate (Er) 50 Mg Tab.Er.24h PO 50 mg DAILY [facility] Administration Nitroglycerin 0.4 mg 08/06/22 23:13 Nitroglycerin Sl Tabs 0.4 Mg Tab SUBLINGUAL Q5M PRN Chest Pain Ondansetron HCl 4 mg 08/07/22 08:08 08/07/22 08:24 Ondansetron 4 Mg/2 Ml Vial IVP 4 mg Q6HR PRN Administration Nausea And Vomiting Ticagrelor 90 mg 08/07/22 09:00 08/07/22 08:43 Ticagrelor 90 Mg Tab PO 90 mg BID MAGY Administration Intake and Output 08/06/22 08/07/22 08/07/22 22:59 06:59 14:59 Other: # Voids 3 Weight 74.843 kg 74.843 kg 08/06/22 22:31 08/06/22 22:31
[2022-08-07] MEDS ORDERED: HYDROmorphone 0.5 MG/0.5 ML SYRINGE IVP STA (12:44)
[2022-08-07] MEDS ORDERED: FAMOTIDINE 20 MG/2 ML VIAL IV SCH (12:45)
[2022-08-07] MEDS ORDERED: traMADol 50 MG TAB PO PRN (12:45)
[2022-08-07] MEDS: HEPARIN SODIUM,PORCINE/PF 5,000 UNIT/0.5 ML SYRINGE SQ SCH ×2 (15:57→23:39)
[2022-08-07] MEDS ORDERED: IPRATROPIUM-ALBUTEROL 3 ML NEB INHALATION PRN (17:55)
[2022-08-07] MEDS ORDERED: ATORVASTATIN 20 MG TAB PO SCH (21:00)
[2022-08-07] MEDS: FAMOTIDINE 20 MG TAB PO SCH (21:04)
--- NOTE | 2022-08-07 22:05 | P.HPIM ---
History of Present Illness H&P Date: 08/07/22 Chief Complaint: Chest pain Patient is a 62-year-old female with a known history of coronary disease status post cardiac catheterization, left carotid stent placement, history of CVA/TIA in 2019 with right-sided weakness/speech issues, hypertension, history PR, seizure disorder and alcohol abuse been drinking, frequent falls, chronic back pain and L1-L4 vertebral fractures from falls and currently everyday smoker, daily alcohol use and anxiety/depression presents to ER with complaints of chest discomfort. Patient has been having dull aching retrosternal chest pain and epigastric discomfort. Associate with nausea. No episodes of vomiting. Denies any hematemesis or melena. No radiation of the pain. Patient has been afebrile. Patient does have chronic cough. No increased sputum production. Chest x-ray showed no acute cardiopulmonary process EKG showed sinus rhythm with diffuse T wave inversions no change from prior. Laboratory data showed WBC 9.0 hemoglobin 16.2 and platelets of 196, sodium 134 potassium 5.4 chloride 199 bicarb is 14 BUN 13 and creatinine 0.6 and troponin x3 negative Triglycerides 370 total cholesterol 240 and LDL 99.1 and serum alcohol abuse 313 Review of Systems Constitutional: Patient denies any fever or chills . no Generalized weakness. Abdomen: Patient does complain of nausea. No vomiting. No diarrhea. Epigastric discomfort. Cardiovascular: Patient complains of chest discomfort, no shortness of breath. No leg swelling. No palpitations. Respiratory: patient denied any increased cough or production. No shortness of breath Neurologic: Patient denied any numbness or tingling headache. Musculoskeletal: Patient denies any complaints of joint swelling or deformity. Skin: Negative Psychiatric: Negative Endocrine: No heat or cold intolerance. No recent weight gain. Genitourinary: No dysuria or hematuria. All other 14 point ROS negative except the above Past Medical History Past Medical History: Asthma, Coronary Artery Disease (CAD), COPD, CVA/TIA, Eye Disorder, Hypertension, Liver Disease, Myocardial Infarction ([place]), Seizure Disorder, Vascular Disorder Additional Past Medical History / Comment(s): Pt recently admitted to [facility] for diarrhea, ETOH abuse. 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 soon Last Myocardial Infarction Date:: aug 2018 History of Any Multi-Drug Resistant Organisms: None Reported Past Surgical History: Cholecystectomy, Heart Catheterization, Orthopedic Surgery Additional Past Surgical History / Comment(s): L caratid stent, bilateral knee surgeries for tendon repair, bartholian cyst removed bilateral wrists Past Anesthesia/Blood Transfusion Reactions: Motion Sickness Additional Past Anesthesia/Blood Transfusion Reaction / Comment(s): Pt has received blood without reaction. Past Psychological History: Anxiety, Depression Additional Psychological History / Comment(s): Pt states lately her stress/anxiety has been increased. She uses a walker to ambulate. She has a nebulizer. She no longer drives, Pt manages her own meds. She states meals are an issue d/t difficulty standing/using a walker. Smoking Status: Current every day smoker Past Alcohol Use History: Daily, Heavy Additional Past Alcohol Use History / Comment(s): Pt started smoking as a teen and has cut down to 3-10 cigarettes/day. Pt states she is cutting down on drinking Past Drug Use History: Marijuana Additional Drug Use History / Comment(s): Pt has medical marijuana - Past Family History Mother Family Medical History: Cancer, Congestive Heart Failure (CHF), Coronary Artery Disease (CAD), Hyperlipidemia Additional Family Medical History / Comment(s): Mother at age 85 from lung cancer. Father Family Medical History: Cancer, COPD Additional Family Medical History / Comment(s): Father at age 63 from lung cancer. Brother(s) Additional Family Medical History / Comment(s): Patient has a total of 7 s iblings. 5 are alive without any major medical problems she is aware of. 2 siblings have one from alcohol abuse and 1. Coronary artery disease. Daughter(s) Additional Family Medical History / Comment(s): Patient has one daughter with no major medical problems. Medications and Allergies Home Medications Medication Instructions Recorded Confirmed Type Aspirin EC [Ecotrin Low Dose] 81 mg PO DAILY 02/11/19 08/06/22 History Isosorbide Mononitrate ER [Imdur] 30 mg PO DAILY 30 Days #30 04/22/21 08/06/22 Rx tab.er.24h Metoprolol Succinate (ER) [Toprol 50 mg PO DAILY 06/13/21 08/06/22 History XL] Pantoprazole [Protonix] 40 mg PO DAILY 06/13/21 08/06/22 History Fluticasone Nasal [place] [Flonase 1 spr EA NOSTRIL DAILY 02/14/22 08/06/22 History Nasal [place]] Magnesium Oxide 400 mg PO DAILY 02/14/22 08/06/22 History Ipratropium-Albuterol Nebulize 3 ml INHALATION RT-QID PRN 03/15/22 08/06/22 History [Duoneb 0.5 mg-3 mg/3 ml Soln] Multivitamins, Thera [Multivitamin 1 tab PO DAILY 06/10/22 08/06/22 History (formulary)] Folic Acid 1 mg PO DAILY #30 tab 06/13/22 08/06/22 Rx Ondansetron Odt [Zofran Odt] 4 mg PO Q8HR PRN #20 tab 06/13/22 08/06/22 Rx Simvastatin [Zocor] 40 mg PO HS 07/03/22 08/06/22 History Vitamin B Complex 1 cap PO DAILY 07/03/22 08/06/22 History Cyclobenzaprine [Flexeril] 10 mg PO TID PRN #20 tab 07/17/22 08/06/22 Rx Ibuprofen [Motrin] 800 mg PO Q8H PRN #20 tab 07/17/22 08/06/22 Rx Ticagrelor [Brilinta] 90 mg PO BID 08/06/22 08/06/22 History Allergies Allergy/AdvReac Type Severity Reaction Status Date / Time Influenza Virus Vaccines AdvReac Nausea & Verified 07/17/22 19:45 Vomiting morphine AdvReac Nausea & Verified 07/17/22 19:45 Vomiting Physical Exam Vitals: Vital Signs Temp Pulse Pulse Resp BP BP Pulse Ox 08/07/22 07:00 97.9 F 101 H 18 113/79 95 08/07/22 02:25 98.0 F 91 20 119/81 96 08/07/22 01:47 96 18 94 L 08/07/22 01:00 96 16 92 L 08/06/22 23:00 96 20 114/88 94 L 08/06/22 20:09 96 18 96/74 94 L 08/06/22 19:55 98.3 F 96 20 124/92 96 Intake and Output 08/06/22 08/07/22 08/07/22 22:59 06:59 14:59 Other: # Voids 3 Weight 74.843 kg 74.843 kg PHYSICAL EXAMINATION: Patient is lying in the bed comfortably, no acute distress, awake alert and oriented.. HEENT: Normocephalic. Neck is supple. Pupils reactive. Nostrils clear. Oral cavity is moist. Neck reveals no JVD, carotid bruits, or thyromegaly. CHEST EXAMINATION: Trachea is central. Symmetrical expansion. Lung galvan clear to auscultation and percussion. Bibasilar diminished sounds. CARDIAC: Normal S1, S2 with no gallops. No murmurs ABDOMEN: Soft. Bowel sounds present. Nontender. No organomegaly. No abdominal bruits. Extremities: reveal no edema. No clubbing or cyanosis Neurologically awake, alert, oriented x3 with well-coordinated movements. No focal deficits noted Skin: No rash or skin lesions. Psychiatric: Coperative. Nonsuicidal, anxious Musculoskeletal: No joint swelling or deformity. Normal range of motion. Results CBC & Chem 7: 08/06/22 22:31 08/06/22 22:31 Labs: Abnormal Lab Results - Last 24 Hours (Table) 08/06/22 08/06/22 08/06/22 Range/Units 22:31 22:31 23:55 Hgb 16.2 H (11.4-16.0) gm/dL Hct 50.1 H (34.0-46.0) % Sodium 135 L (137-145) mmol/L Potassium 5.4 H (3.5-5.1) mmol/L Carbon Dioxide 14 L (22-30) mmol/L Triglycerides (0.00-149.00) mg/dL Cholesterol (0.00-200.00) mg/dL VLDL Cholesterol, Calc (5.00-40.00) mg/dL HDL Cholesterol (40.00-60.00) mg/dL Serum Alcohol 313 H* mg/dL 08/07/22 Range/Units 03:51 Hgb (11.4-16.0) gm/dL Hct (34.0-46.0) % Sodium (137-145) mmol/L Potassium (3.5-5.1) mmol/L Carbon Dioxide (22-30) mmol/L Triglycerides 370.00 H (0.00-149.00) mg/dL Cholesterol 240.00 H (0.00-200.00) mg/dL VLDL Cholesterol, Calc 74.00 H (5.00-40.00) mg/dL HDL Cholesterol 66.90 H (40.00-60.00) mg/dL Serum Alcohol mg/dL Thrombosis Risk Factor Assmnt - DVT/VTE Prophylaxis DVT/VTE Prophylaxis: Pharmacologic Prophylaxis ordered - Choose All That Apply Any of the Below Risk Factors Present?: Yes Each Factor Represents 1 point: Abnormal pulmonary function (COPD), Obesity (BMI >25) Other Risk Factors: Yes Each Risk Factor Represents 2 Points: Age 61-74 years Other congenital or acquired thrombophilia - If yes, enter type in comment: No Thrombosis Risk Factor Assessment Total Risk Factor Score: 4 Thrombosis Risk Factor Assessment Level: Moderate Risk Assessment and Plan Assessment: Acute alcohol intoxication Chest discomfort/epigastric pain. Rule out ACS. Possible alcoholic gastritis Anion gap metabolic acidosis secondary to alcohol intoxication History of coronary disease status postcardiac cath showing total occlusion of RCA. No prior PCI Mild to moderate MR History of CVA with right-sided weakness and speech issues. History of carotid artery stent placement Chronic low back pain and degenerative disc disease History of alcohol liver cirrhosis and ascites with paracentesis Hypertension Hyperlipidemia Hypertriglyceridemia Ongoing Nicotinex Alcohol abuse DVT prophylaxis with heparin subcu Plan: Patient will be continued on telemetry monitoring. Serial EKG and troponin x3 negative. Continue with aspirin statins and metoprolol and Imdur dose was increased by cardiology. Continue with Brilinta. Patient will be started on Zofran as needed for nausea and vomiting and Pepcid IV 20 mg twice daily and gentle IV hydration. Follow-up CBC and CMP tomorrow. Cardiology is on board. Encourage oral intake. Cardiac diet. Time with Patient: Greater than 30
[2022-08-07] MEDS ORDERED: SODIUM CHLORIDE 0.9% 1,000 ML IV SCH (22:15)
[2022-08-08 09:31] LABS: Basophils % (A) 1.5 %; Eosinophils # (A) 0.09 X 10*3/uL (0.04-0.35); Eosinophils % (A) 1.4 %; HCT 39.7 % (37.2-46.3); HGB 13.4 g/dL (12.0-15.0); Immature Grans, Automated 0.5 %; Lymphocytes % (A) 18.4 %; MCH 30.7 pg (27.0-32.0); MCHC 33.8 g/dL (32.0-37.0); MCV 91.1 fL (80.0-97.0); Mean Platelet Volume 10.3 fL (9.5-12.2); Monocytes # (A) 0.78 X 10*3/uL (0.20-1.00); Monocytes % (A) 11.9 %; NRBC Per 100 WBC 0 /100 WBCS (0.0-0.0); Neutrophils # (A) 4.33 X 10*3/uL (1.80-7.70); Neutrophils % (A) 66.3 %; Platelet Count 129 X 10*3/uL (140-440); RBC 4.36 X 10*6/uL (4.10-5.20); RDW 14.7 % (11.5-14.5); WBC 6.53 X 10*3/uL (4.50-10.00)
[2022-08-08 09:59] LABS: African American GFR (CKD) 108.4 (60.0-200.0); Albumin 4.3 g/dL (3.8-4.9); Albumin/Globulin Ratio 1.79 (1.60-3.17); Anion Gap 15.4 mmol/L (10.00-18.00); Blood Urea Nitrogen 7.7 mg/dL (9.0-27.0); Calcium 9.1 mg/dL (8.7-10.3); Carbon Dioxide 24.6 mmol/L (20.0-27.5); Globulin 2.4 g/dL (1.6-3.3); Non-African American GFR(CKD) 93.5 (60.0-200.0); Potassium 3.3 mmol/L (3.5-5.5); Total Bilirubin 0.6 mg/dL (0.30-1.20); Total Protein 6.7 g/dL (6.2-8.2)
--- NOTE | 2022-08-08 10:27 | P.PN ---
Subjective Progress Note Date: 08/08/22 HISTORY OF PRESENT ILLNESS: This is a 62-year-old female with a past medical history significant for coronary artery disease with chronic total occlusion of the RCA, hypertension, hyperlipidemia, CVA, and alcohol abuse. Patient follows in the office with Dr. Howard. We have been asked to see the patient in consultation for chest pain. Patient examined at the bedside. Patient presented to the hospital for chief complaint of chest pain. She states the pain was in the middle of her chest. She denied any radiation of the pain. This morning she denies any chest pain or pressure. She reports significant nausea this morning. The patient was found to be acutely intoxicated on admission with a serum alcohol of 313. * EKG reveals sinus mechanism with diffuse T-wave inversions, similar to previous EKG. Evidence of LVH. * Chest xray negative for acute process * Laboratory data: WBC 9.0. Hemoglobin 16.2. Platelet count 196. Sodium 135. Potassium 5.4. BUN 13. Creatinine 0.60. Troponin negative 3. * Current home cardiac medications include Brilinta 90 mg twice a day, aspirin 81 mg daily, Imdur 30 mg daily, metoprolol succinate 50 mg daily, simvastatin 40 mg at night * Most recent echocardiogram obtained in May 2022 revealed ejection fraction 50% with mild mitral regurgitation * Cardiac catheterization history: September 2019 revealing chronic total occlusion of the right coronary artery with extensive collaterals from the left. * Patient underwent JOSE in June 2022 with no evidence of intracardiac thrombus, no evidence of shunting across interatrial septum, [id number] mitral regurgitation 08/08/2022 Patient examined this morning the bedside. Patient denies chest pain or pressure. She denies shortness of breath. Patient's vital signs are stable. PHYSICAL EXAM: VITAL SIGNS: Reviewed. GENERAL: Well-developed in no acute distress. HEENT: Head is normocephalic. Pupils are equal, round. Sclerae anicteric. Mucous membranes of the mouth are moist. Neck supple. No JVD or thyromegaly LUNGS: Respirations even and unlabored. Lungs essentially clear to auscultation bilaterally. HEART: Regular rate and rhythm. S1 and S2 heard. ABDOMEN: Soft. Nondistended. Nontender. EXTREMITIES: Normal range of motion. No clubbing or cyanosis. Peripheral pulses intact. No lower extremity edema NEUROLOGIC: Awake and alert. Oriented x 3. ASSESSMENT: Chest pain, troponins negative 3 Acute alcohol intoxication Coronary artery disease with chronic total occlusion of RCA Hypertension Hyperlipidemia CVA History of alcohol abuse PLAN: Continue current cardiac medications Patient is currently stable for discharge home today from a cardiac standpoint We will sign off. Please reconsult if needed. Nurse practitioner note has been reviewed by physician. Signing provider agrees with the documented findings, assessment, and plan of care. Objective - Vital Signs Vital signs: Vital Signs Temp 98.7 F 08/08/22 07:00 Pulse 79 08/08/22 07:00 Resp 17 08/08/22 07:00 BP 142/86 08/08/22 07:00 Pulse Ox 97 08/08/22 07:00 FiO2 Intake & Output 08/07/22 08/08/22 08/08/22 18:59 06:59 18:59 Intake Total 1000 Balance 1000 Intake: Oral 1000 Other: Voiding Method Toilet # Voids 2 - Labs CBC & Chem 7: 08/08/22 05:20 08/08/22 05:20 Labs: Abnormal Lab Results - Last 24 Hours (Table) 08/08/22 08/08/22 Range/Units 05:20 05:20 RDW 14.7 H (11.5-14.5) % Plt Count 129 L (140-440) X 10*3/uL Potassium 3.3 L (3.5-5.5) mmol/L BUN 7.7 L (9.0-27.0) mg/dL BUN/Creatinine Ratio 11.00 L (12.00-20.00) Ratio Glucose 132 H (70-110) mg/dL Alkaline Phosphatase 133 H (41-126) U/L
[2022-08-08] MEDS: ISOSORBIDE MONONITRATE ER 60 MG TAB.ER.24H PO SCH (11:03)
[2022-08-08] MEDS: ASPIRIN 81 MG PO SCH (11:03)
[2022-08-08] MEDS: FAMOTIDINE 20 MG TAB PO SCH (11:04)
[2022-08-08] MEDS: METOPROLOL SUCCINATE (ER) 50 MG TAB.ER.24H PO SCH (11:04)
[2022-08-08] MEDS: TICAGRELOR 90 MG TAB PO SCH (11:05)
[2022-08-08] MEDS: HEPARIN SODIUM,PORCINE/PF 5,000 UNIT/0.5 ML SYRINGE SQ SCH (11:06)
[2022-08-08 11:57] VITALS: RESP 18
[2022-08-08 15:23] VITALS: BP 116/78; PULSE 83; TEMP 98.2
== END 2022-08-08 16:36 | disposition home or self-care (01) ==
LOC: EC 19:54 → 6NMEDSUR 23:13
PROVIDERS: ADMIT Hospitalist; ATTEND Hospitalist
DX: R07.89 Other chest pain (principal); F10.120 Alcohol abuse with intoxication, uncomplicated; I25.10 Atherosclerotic heart disease of native coronary artery without angina pectoris; E87.2 Acidosis; J44.9 Chronic obstructive pulmonary disease, unspecified; I10 Essential (primary) hypertension; I25.2 Old myocardial infarction; G40.909 Epilepsy, unspecified, not intractable, without status epilepticus; I69.351 Hemiplegia and hemiparesis following cerebral infarction affecting right dominant side; I69.328 Other speech and language deficits following cerebral infarction; D64.9 Anemia, unspecified; K58.9 Irritable bowel syndrome, unspecified; F41.9 Anxiety disorder, unspecified; F32.A Depression, unspecified; F17.210 Nicotine dependence, cigarettes, uncomplicated; E78.5 Hyperlipidemia, unspecified; I25.82 Chronic total occlusion of coronary artery; G89.29 Other chronic pain; R29.6 Repeated falls; K70.31 Alcoholic cirrhosis of liver with ascites; E78.1 Pure hyperglyceridemia; Z95.5 Presence of coronary angioplasty implant and graft; Z90.49 Acquired absence of other specified parts of digestive tract; Z79.02 Long term (current) use of antithrombotics/antiplatelets; Z82.49 Family history of ischemic heart disease and other diseases of the circulatory system; Z80.1 Family history of malignant neoplasm of trachea, bronchus and lung; Z82.5 Family history of asthma and other chronic lower respiratory diseases; Z79.82 Long term (current) use of aspirin; Z79.899 Other long term (current) drug therapy; Z81.1 Family history of alcohol abuse and dependence; Z83.438 Family history of other disorder of lipoprotein metabolism and other lipidemia; Y90.8 Blood alcohol level of 240 mg/100 ml or more
CPT/HCPCS: 96376; 96372 ×2; 96374; 96375; 99285; 36415; 94640; 93005; 80061; 80053; 80048; 84484 ×2; 85025 ×2; 85610; 85730; 71046; G0378 ×3; G0480; J2405; J1170; J1644 ×2; 80320

== ENCOUNTER 2022-10-15 15:18 | Emergency (ER) | payer OTHER ==
[2022-10-15] MEDS ORDERED: SODIUM CHLORIDE 0.9% 1,000 ML IV STA (16:17)
--- NOTE | 2022-10-15 16:37 | XR ---
EXAMINATION TYPE: XR chest 2V DATE OF EXAM: 10/15/2022 COMPARISON: 08/06/2022 HISTORY: Short of breath TECHNIQUE: 2 views FINDINGS: Heart is normal. Lungs are clear. Diaphragm is normal. Bony thorax is intact. IMPRESSION: No active cardiopulmonary disease. Normal heart. No change.
[2022-10-15 17:40] LABS: Basophils # (A) 0.1 k/uL (0-0.2); Basophils % (A) 2 %; Eosinophils # (A) 0.1 k/uL (0-0.7); Eosinophils % (A) 1 %; HCT 37.8 % (34.0-46.0); Lymphocytes # (A) 2.1 k/uL (1.0-4.8); Lymphocytes % (A) 30 %; MCH 31.7 pg (25.0-35.0); MCHC 34.4 g/dL (31.0-37.0); MCV 92.2 fL (80.0-100.0); Mean Platelet Volume 7.8; Monocytes # (A) 0.4 k/uL (0-1.0); Monocytes % (A) 5 %; Neutrophils # (A) 4.1 k/uL (1.3-7.7); Neutrophils % (A) 58 %; Platelet Count 237 k/uL (150-450); RDW 14.9 % (11.5-15.5); WBC 7.1 k/uL (3.8-10.6)
[2022-10-15 17:52] LABS: Partial Thromboplastin Time 24.9 sec (22.0-30.0); Prothrombin Time 10.7 sec (9.0-12.0)
[2022-10-15 18:19] LABS: ALT 36 U/L (4-34); AST 52 U/L (14-36); African American GFR (CKD) >90 (>60 ml/min/1.73 sqM); Albumin 4.3 g/dL (3.5-5.0); Alkaline Phosphatase 135 U/L (38-126); Anion Gap 10 mmol/L; Blood Urea Nitrogen 12 mg/dL (7-17); Calcium 8.6 mg/dL (8.4-10.2); Carbon Dioxide 25 mmol/L (22-30); Chloride 106 mmol/L (98-107); Glucose 125 mg/dL (74-99); Non-African American GFR(CKD) >90 (>60 ml/min/1.73 sqM); Sodium 141 mmol/L (137-145); Total Bilirubin 0.4 mg/dL (0.2-1.3); Total Protein 7.2 g/dL (6.3-8.2)
[2022-10-15 18:23] LABS: Potassium 4.2 mmol/L (3.5-5.1)
[2022-10-15 18:33] VITALS: BP 161/90; PULSE 103; RESP 17
--- NOTE | 2022-10-15 18:38 | ED ---
Anxiety HPI - General Chief Complaint: Anxiety Stated Complaint: Anxiety Time Seen by Provider: 10/15/22 15:35 Source: patient, EMS Mode of arrival: EMS - History of Present Illness Initial Comments: Patient is a 62-year-old female who presents to the emergency department with a chief complaint anxiety. Patient is very nervous that something is wrong with her heart because she feels "that she had heart attacks the past 2 nights while she was sleeping." During the first night patient states she woke up out of sleep due to a sharp pain as if "someone was squeezing her heart." There was no radiation. The episode resolved on its own in about 3 minutes. It was not associated with other symptoms. No lightheadedness, dizziness, palpitations, nausea, vomiting. Patient had a similar episode last night however she had not fallen asleep yet. Patient states the episode was much less severe and lasted 1 minute. Patient has not had any symptoms since. She denies chest pain currently. Patient does have history significant for CAD s/p cardiac cath revealing chronic occlusion of the RCA with extensive collaterals from the left (2018), hypertension, hyperlipidemia, CVA, alcohol use disorder. Patient had JOSE in June 2022 which showed no evidence of intracardiac thrombus, no evidence of shunting across intra-atrial septum, mild to moderate mitral regurgitation. Pat ient was evaluated for chest pain by cardiology this past July. Documentation was reviewed. At this time acute coronary event was ruled out. She was cleared by cardiology and discharged. MD Complaint: anxiety - Related Data Home Medications: Home Medications Medication Instructions Recorded Confirmed Aspirin EC [Ecotrin Low Dose] 81 mg PO DAILY 02/11/19 08/06/22 Metoprolol Succinate (ER) [Toprol 50 mg PO DAILY 06/13/21 08/06/22 XL] Pantoprazole [Protonix] 40 mg PO DAILY 06/13/21 08/06/22 Fluticasone Nasal [place] [Flonase 1 spr EA NOSTRIL DAILY 02/14/22 08/06/22 Nasal [place]] Magnesium Oxide 400 mg PO DAILY 02/14/22 08/06/22 Ipratropium-Albuterol Nebulize 3 ml INHALATION RT-QID PRN 03/15/22 08/06/22 [Duoneb 0.5 mg-3 mg/3 ml Soln] Multivitamins, Thera [Multivitamin 1 tab PO DAILY 06/10/22 08/06/22 (formulary)] Simvastatin [Zocor] 40 mg PO HS 07/03/22 08/06/22 Vitamin B Complex 1 cap PO DAILY 07/03/22 08/06/22 Ticagrelor [Brilinta] 90 mg PO BID 08/06/22 08/06/22 Previous Rx's Medication Instructions Recorded Folic Acid 1 mg PO DAILY #30 tab 06/13/22 Ondansetron Odt [Zofran ODT] 4 mg PO Q8HR PRN #20 tab 06/13/22 Cyclobenzaprine [Flexeril] 10 mg PO TID PRN #20 tab 07/17/22 Isosorbide Mononitrate ER [Imdur] 60 mg PO DAILY #30 tab 08/08/22 Nitroglycerin Sl Tabs [Nitrostat] 0.4 mg SUBLINGUAL Q5M PRN #30 tab 08/08/22 Allergies/Adverse Reactions: Allergies Allergy/AdvReac Type Severity Reaction Status Date / Time Influenza Virus Vaccines AdvReac Nausea & Verified 10/15/22 15:25 Vomiting morphine AdvReac Nausea & Verified 10/15/22 15:25 Vomiting Review of Systems ROS Statement: Those systems with pertinent positive or pertinent negative responses have been documented in the HPI. ROS Other: All systems not noted in ROS Statement are negative. Past Medical History Past Medical History: Asthma, Coronary Artery Disease (CAD), COPD, CVA/TIA, Eye Disorder, Hypertension, Liver Disease, Myocardial Infarction (TN), Seizure Disorder, Vascular Disorder Additional Past Medical History / Comment(s): Pt recently admitted to [facility] for diarrhea, ETOH abuse. 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 soon Last Myocardial Infarction Date:: aug 2018 History of Any Multi-Drug Resistant Organisms: None Reported Past Surgical History: Cholecystectomy, Heart Catheterization, Orthopedic Surgery Additional Past Surgical History / Comment(s): L caratid stent, bilateral knee surgeries for tendon repair, bartholian cyst removed bilateral wrists Past Anesthesia/Blood Transfusion Reactions: Motion Sickness Additional Past Anesthesia/Blood Transfusion Reaction / Comment(s): Pt has received blood without reaction. Past Psychological History: Anxiety, Depression Smoking Status: Current every day smoker Past Alcohol Use History: Daily, Heavy Past Drug Use History: Marijuana - Past Family History Mother Family Medical History: Cancer, Congestive Heart Failure (CHF), Coronary Artery Disease (CAD), Hyperlipidemia Additional Family Medical History / Comment(s): Mother at age 85 from lung cancer. Father Family Medical History: Cancer, COPD Additional Family Medical History / Comment(s): Father at age 63 from lung cancer. Brother(s) Additional Family Medical History / Comment(s): Patient has a total of 7 siblings. 5 are alive without any major medical problems she is aware of. 2 siblings have one from alcohol abuse and 1. Coronary artery disease. Daughter(s) Additional Family Medical History / Comment(s): Patient has one daughter with no major medical problems. General Exam Limitations: no limitations General appearance: alert, in no apparent distress Head exam: Present: atraumatic, normocephalic, normal inspection Neck exam: Present: normal inspection Respiratory exam: Present: normal lung sounds bilaterally. Absent: respiratory distress, wheezes, rales, rhonchi, stridor Cardiovascular Exam: Present: regular rate, normal rhythm, normal heart sounds. Absent: systolic murmur, diastolic murmur, rubs, gallop, clicks GI/Abdominal exam: Present: soft, normal bowel sounds. Absent: distended, tenderness, guarding, rebound, rigid Neurological exam: Present: alert, oriented X3, CN II-XII intact Psychiatric exam: Present: normal affect, normal mood Skin exam: Present: warm, dry, intact, normal color. Absent: rash Course Vital Signs 10/15/22 10/15/22 10/15/22 15:19 16:45 18:32 Temperature 98.2 F Pulse Rate 98 105 H 103 H Respiratory 18 18 17 Rate Blood Pressure 132/86 176/89 161/90 O2 Sat by Pulse 95 99 100 Oximetry 10/15/22 19:07 Temperature 98.0 F Pulse Rate Respiratory Rate Blood Pressure O2 Sat by Pulse Oximetry Medical Decision Making - Medical Decision Making This is a 62-year-old patient presenting for evaluation of chest pain episodes. Patient well-appearing and in no apparent distress. No chest pain currently. EKG obtained and interpreted by me shows nonspecific T-wave and ST abnormality, no change from previous. Troponin is within normal limits. Other laboratory studies are relatively unremarkable. Chest x-ray obtained interpreted by me which is negative for acute cardiopulmonary process. Results discussed with patient. Patient has not been evaluated by cardiology in 3 months and does have cardiac history. I recommended observation for 20th troponin and cardiology evaluation however patient declined. Patient asymptomatic, looks well, is reasonable for her to manage this outpatient with return parameters. Patient will follow up with cardiology. Dr. Grimes is my attending. - Lab Data Result diagrams: 10/15/22 17:30 10/15/22 17:30 Lab Results 10/15/22 10/15/22 10/15/22 Range/Units 17:30 17:30 17:30 WBC 7.1 (3.8-10.6) k/uL RBC 4.10 (3.80-5.40) m/uL Hgb 13.0 (11.4-16.0) gm/dL Hct 37.8 (34.0-46.0) % MCV 92.2 (80.0-100.0) fL MCH 31.7 (25.0-35.0) pg MCHC 34.4 (31.0-37.0) g/dL RDW 14.9 (11.5-15.5) % Plt Count 237 (150-450) k/uL MPV 7.8 Neutrophils % 58 % Lymphocytes % 30 % Monocytes % 5 % Eosinophils % 1 % Basophils % 2 % Neutrophils # 4.1 (1.3-7.7) k/uL Lymphocytes # 2.1 (1.0-4.8) k/uL Monocytes # 0.4 (0-1.0) k/uL Eosinophils # 0.1 (0-0.7) k/uL Basophils # 0.1 (0-0.2) k/uL PT 10.7 (9.0-12.0) sec INR 1.0 (<1.2) APTT 24.9 (22.0-30.0) sec Sodium 141 (137-145) mmol/L Potassium 4.2 (3.5-5.1) mmol/L Chloride 106 (98-107) mmol/L Carbon Dioxide 25 (22-30) mmol/L Anion Gap 10 mmol/L BUN 12 (7-17) mg/dL Creatinine 0.65 (0.52-1.04) mg/dL Est GFR (CKD-EPI)AfAm >90 (>60 ml/min/1.73 sqM) Est GFR (CKD-EPI)NonAf >90 (>60 ml/min/1.73 sqM) Glucose 125 H (74-99) mg/dL Calcium 8.6 (8.4-10.2) mg/dL Magnesium 2.0 (1.6-2.3) mg/dL Total Bilirubin 0.4 (0.2-1.3) mg/dL AST 52 H (14-36) U/L ALT 36 H (4-34) U/L Alkaline Phosphatase 135 H (38-126) U/L Troponin I (0.000-0.034) ng/mL Total Protein 7.2 (6.3-8.2) g/dL Albumin 4.3 (3.5-5.0) g/dL Coronavirus (PCR) (Not Detectd) Influenza Type A RNA (Not Detectd) Influenza Type B (PCR) (Not Detectd) 10/15/22 10/15/22 10/15/22 Range/Units 17:30 17:30 17:30 WBC (3.8-10.6) k/uL RBC (3.80-5.40) m/uL Hgb (11.4-16.0) gm/dL Hct (34.0-46.0) % MCV (80.0-100.0) fL MCH (25.0-35.0) pg MCHC (31.0-37.0) g/dL RDW (11.5-15.5) % Plt Count (150-450) k/uL MPV Neutrophils % % Lymphocytes % % Monocytes % % Eosinophils % % Basophils % % Neutrophils # (1.3-7.7) k/uL Lymphocytes # (1.0-4.8) k/uL Monocytes # (0-1.0) k/uL Eosinophils # (0-0.7) k/uL Basophils # (0-0.2) k/uL PT (9.0-12.0) sec INR (<1.2) APTT (22.0-30.0) sec Sodium (137-145) mmol/L Potassium (3.5-5.1) mmol/L Chloride (98-107) mmol/L Carbon Dioxide (22-30) mmol/L Anion Gap mmol/L BUN (7-17) mg/dL Creatinine (0.52-1.04) mg/dL Est GFR (CKD-EPI)AfAm (>60 ml/min/1.73 sqM) Est GFR (CKD-EPI)NonAf (>60 ml/min/1.73 sqM) Glucose (74-99) mg/dL Calcium (8.4-10.2) mg/dL Magnesium (1.6-2.3) mg/dL Total Bilirubin (0.2-1.3) mg/dL AST (14-36) U/L ALT (4-34) U/L Alkaline Phosphatase (38-126) U/L Troponin I 0.013 (0.000-0.034) ng/mL Total Protein (6.3-8.2) g/dL Albumin (3.5-5.0) g/dL Coronavirus (PCR) Not Detected (Not Detectd) Influenza Type A RNA Not Detected (Not Detectd) Influenza Type B (PCR) Not Detected (Not Detectd) - EKG Data EKG Comments: EKG taken at 17:55, interpreted by me. Sinus rhythm, nonspecific ST and T wave abnormality, no change from previous Ventricular rate 92 OH interval 124 QRS duration 90 QTc 406 Disposition Clinical Impression: Acute anxiety, History of [place] (myocardial infarction), Chest pain, Rhinorrhea Disposition: HOME SELF-CARE Condition: Good Instructions (If sedation given, give patient instructions): Chest Pain (ED) Additional Instructions: Please follow up with main [facility] in 1-2 days. Return to the emergency department experience new, concerning, or worsening symptoms. Is patient prescribed a controlled substance at d/c from ED?: No Referrals: Miya Johnson MD [Primary Care Provider] - 1-2 days Time of Disposition: 18:38
[2022-10-15 19:13] VITALS: TEMP 98
== END 2022-10-15 19:10 | disposition home or self-care (01) ==
LOC: EC 15:18
DX: F41.9 Anxiety disorder, unspecified (principal); I25.2 Old myocardial infarction; R07.9 Chest pain, unspecified; J34.89 Other specified disorders of nose and nasal sinuses; J44.9 Chronic obstructive pulmonary disease, unspecified; I25.10 Atherosclerotic heart disease of native coronary artery without angina pectoris; Z86.73 Personal history of transient ischemic attack (TIA), and cerebral infarction without residual deficits; I10 Essential (primary) hypertension; G40.909 Epilepsy, unspecified, not intractable, without status epilepticus; F32.A Depression, unspecified; F17.200 Nicotine dependence, unspecified, uncomplicated; F12.90 Cannabis use, unspecified, uncomplicated; Z88.7 Allergy status to serum and vaccine; Z88.6 Allergy status to analgesic agent; Z79.82 Long term (current) use of aspirin; Z79.899 Other long term (current) drug therapy
CPT/HCPCS: 36415; 71046; 80053; 83735; 84484; 85025; 85610; 85730; 87502; 87635; 93005; 96360; 99284

== ENCOUNTER 2022-11-10 15:51 | Inpatient (IN) | payer OTHER ==
[2022-11-10 16:05] VITALS: TEMP 98.4
[2022-11-10 16:27] LABS: Glucose,Whole Blood 102 mg/dL (70-110)
--- NOTE | 2022-11-10 17:17 | ED ---
General Adult HPI - General Chief complaint: Neuro Symptoms/Deficit Stated complaint: rt arm pain Time Seen by Provider: 11/10/22 16:28 Source: patient, RN notes reviewed, old records reviewed Mode of arrival: EMS Limitations: no limitations - History of Present Illness Initial comments: Patient is a 62-year-old female with past medical history remarkable for multiple TIAs, hypertension, alcohol use, COPD, hypertension, seizure disorder who presents emergency Department complaining of stroke like symptoms since Sunday. Has noticed right upper extremity weakness as well as stating that she is having a hard time to come to get her words since Sunday. States it comes and goes but has been was a persistent. States she does have a history of TIAs and strokes with no residual deficits. Sensory further evaluation of this time. Does endorse a very mild cough. Denies any chest pain, abdominal pain, nausea, vomiting. States she recently had diarrhea but none at this time. Denies any sick contacts, fevers. No other acute complaints at this time. Last known well was multiple days ago. Is on Brillinta. No other known blood thinners. Denies any recent falls or trauma. Presents for further evaluation of this time. - Related Data Home Medications Medication Instructions Recorded Confirmed Aspirin EC [Ecotrin Low Dose] 81 mg PO DAILY 02/11/19 11/10/22 Metoprolol Succinate (ER) [Toprol 50 mg PO DAILY 06/13/21 11/10/22 XL] Pantoprazole [Protonix] 40 mg PO DAILY 06/13/21 11/10/22 Fluticasone Nasal [place] [Flonase 1 spr EA NOSTRIL DAILY 02/14/22 11/10/22 Nasal [place]] Magnesium Oxide 400 mg PO DAILY 02/14/22 11/10/22 Ipratropium-Albuterol Nebulize 3 ml INHALATION RT-QID PRN 03/15/22 11/10/22 [Duoneb 0.5 mg-3 mg/3 ml Soln] Simvastatin [Zocor] 40 mg PO HS 07/03/22 11/10/22 Vitamin B Complex 1 cap PO DAILY 07/03/22 11/10/22 Brimonidine Tartrate [Alphagan P 1 drop BOTH EYES BID 11/10/22 11/10/22 0.2% Ophth Soln] Budesonide-Formot 160-4.5 Mcg 2 puff INHALATION RT-BID 11/10/22 11/10/22 [Symbicort 160-4.5 Mcg Inhaler] HYDROcodone/APAP 7.5-325MG [Colt 1 tab PO Q6H PRN 11/10/22 11/10/22 7.5-325] Isosorbide Mononitrate ER [Imdur] 30 mg PO DAILY 11/10/22 11/10/22 Ketorolac [Toradol] 10 mg PO Q8H PRN 11/10/22 11/10/22 chlordiazePOXIDE HCl [Librium] 25 mg PO TID PRN 11/10/22 11/10/22 Previous Rx's Medication Instructions Recorded Folic Acid 1 mg PO DAILY #30 tab 06/13/22 Ondansetron Odt [Zofran ODT] 4 mg PO Q8HR PRN #20 tab 06/13/22 Cyclobenzaprine [Flexeril] 10 mg PO TID PRN #20 tab 07/17/22 Nitroglycerin Sl Tabs [Nitrostat] 0.4 mg SUBLINGUAL Q5M PRN #30 tab 08/08/22 Allergies Allergy/AdvReac Type Severity Reaction Status Date / Time latex Allergy Rash/Hives Verified 11/10/22 18:00 Influenza Virus Vaccines AdvReac Nausea & Verified 11/10/22 18:00 Vomiting morphine AdvReac Nausea & Verified 11/10/22 18:00 Vomiting Review of Systems ROS Statement: Those systems with pertinent positive or pertinent negative responses have been documented in the HPI. Review of Systems: CONST: Denies fever EYES: Denies blurry vision ENT: Denies nasal congestion C/V: Denies Chest pain RESP: Denies shortness of breath GI: Denies abdominal pain : Denies dysuria SKIN: Denies rash. MSK: Denies joint pain. NEURO: Endorses right upper extremity weakness. ROS Other: All systems not noted in ROS Statement are negative. Past Medical History Past Medical History: Asthma, Coronary Artery Disease (CAD), COPD, CVA/TIA, Eye Disorder, Hypertension, Liver Disease, Myocardial Infarction (DC), Seizure Disorder, Vascular Disorder Additional Past Medical History / Comment(s): Pt recently admitted to [facility] for diarrhea, ETOH abuse. 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 soon Last Myocardial Infarction Date:: aug 2018 History of Any Multi-Drug Resistant Organisms: None Reported Past Surgical History: Cholecystectomy, Heart Catheterization, Orthopedic Surgery Additional Past Surgical History / Comment(s): L caratid stent, bilateral knee surgeries for tendon repair, bartholian cyst removed bilateral wrists Past Anesthesia/Blood Transfusion Reactions: Motion Sickness Additional Past Anesthesia/Blood Transfusion Reaction / Comment(s): Pt has received blood without reaction. Past Psychological History: Anxiety, Depression Smoking Status: Current every day smoker Past Alcohol Use History: Daily, Heavy Past Drug Use History: Marijuana - Past Family History Mother Family Medical History: Cancer, Congestive Heart Failure (CHF), Coronary Artery Disease (CAD), Hyperlipidemia Additional Family Medical History / Comment(s): Mother at age 85 from lung cancer. Father Family Medical History: Cancer, COPD Additional Family Medical History / Comment(s): Father at age 63 from lung cancer. Brother(s) Additional Family Medical History / Comment(s): Patient has a total of 7 siblings. 5 are alive without any major medical problems she is aware of. 2 siblings have one from alcohol abuse and 1. Coronary artery disease. Daughter(s) Additional Family Medical History / Comment(s): Patient has one daughter with no major medical problems. General Exam - General Exam Comments Initial Comments: General: Appears in no acute distress. HEAD: Normal with no signs of head trauma. EYES: PERRLA, EOMI, conjunctiva normal, no discharge. Pupils are 2 mm and equal bilaterally. ENT: Hearing grossly intact, normal oropharynx. RESPIRATORY: Clear breath sounds bilaterally. No wheezes, rales, or rhonchi. C/V: Regular rate and rhythm. S1 and S2 auscultated, no edema, peripheral pulses 2+ and intact throughout ABD: Abd is soft, nontender, nondistended EXT: Normal range of motion, no obvious deformity SKIN: No rashes or lesions observed on exposed skin. NEURO: Alert and oriented x 4. Cranial nerves II-XII intact. GCS of 15. NIH is 3, with right upper extremity drift that hits bad as well as right lower extremity drift. 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 She also easily redirects her arm when I hold it over her head. It does not strike her in the face. Does not strike on the body. Limitations: no limitations Course Vital Signs 11/10/22 11/10/22 11/10/22 16:00 17:32 19:06 Temperature 98.4 F Pulse Rate 80 85 104 H Respiratory 16 16 18 Rate Blood Pressure 126/84 120/89 124/99 O2 Sat by Pulse 97 96 99 Oximetry Medical Decision Making - Medical Decision Making Was pt. sent in by a medical professional or institution? @ -No Did you speak to anyone other than the patient for history? @ -No Did you review nursing and triage notes? @ -Yes. Agree. Were old charts reviewed? @ -Yes.. Old EKGs, prior admissions Differential Diagnosis? @ -CVA, psychiatric, dehydration, infection, TIA, I sided paresthesias. This list is not all encompassing. EKG interpreted by me (3pts min.)? @ -Yes. See note. X-rays interpreted by me (1pt min.)? @ -Yes. Chest x-ray shows no acute cardio pulmonary process. CT interpreted by me (1pt min.)? @ -Yes. CT brain and CTA head and neck reveal no obvious evidence of stroke, hemorrhage, significant stenosis. U/S interpreted by me (1pt. min.)? @ -none What testing was considered but not performed? (CT, X-rays, U/S, labs)? Why? @None What meds were considered but not given? Why? @ -None Did you discuss the management of the patient with other professionals? @ -No Did you reconcile home meds? @ -Yes Was smoking cessation discussed for >3mins.? @ -none Was critical care preformed (if so, how long)? @ -none Were there social determinants of health that impacted care today? How? (Homelessness, low income, unemployed, alcoholism, drug addiction, transportation, low edu. Level, literacy, decrease access to med. care, prison, rehab)? @ -None Was there de-escalation of care discussed even if they declined? (Discuss DNR or withdrawal of care, Hospice)? @ -No What co-morbidities impacted this encounter? (DM, HTN, Smoking, COPD, CAD, Cancer, CVA, Hep., AIDS, mental health diagnosis, sleep apnea, morbid obesity)? @ -Prior TIAs, strokes. Was patient admitted / discharged? @ -Based on the patient's presentation and physical exam, I'm concerned for possible strokelike symptoms and the patient. Her symptoms do seem to be somewhat extinguishable when you distract her, but she states she does have a history of TIAs. Is not moving her right upper extremity at all. Last known well was multiple days ago, on Sunday11/07/22 is currently 11/10/2022. NIH is 7 for right-sided weakness. Seems to be somewhat extinguishable and distractable. However due to her symptoms, I cannot rule out acute stroke at this time. As it is been multiple days since onset, she is not a code stroke. She is not a TPA candidate as risks far outweigh the benefits. We will obtain stroke workup. Vital signs within acceptable limits. She was in agreement this plan. Patient does ambulate to the bathroom and back, but when you go to evaluate her has her symptoms. I do believe there may be a strong somatic symptom component to her current complaints. EKG showed possible acute T wave inversions in the lateral precordial leads laboratory studies were remarkable for an undetectable troponin. Slight elevated alk phos, AST, ALT. Remainder the labs are unremarkable. Chest x-ray as interpreted by myself reveals no acute cardio pulmonary process. Brain CT is interpreted by myself reveals no acute intracranial process, hemorrhage, midline shift. 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 CT angiogram is interpreted by myself reveals no acute occlusion or blockage that is high grade. On reevaluation, patient still complaining of right arm weakness. Is moving her hand more at this time. I did discuss with her admission for further evaluation. I am not convinced she is having a stroke at this time, as symptoms due appear to be extinguishable with distraction as well as somewhat voluntary but we will admit for neurology evaluation with her history. She was in agreement with this plan. I spoke with the admitting team, Dr. gonzalez who accepted the patient. Patient was admitted in stable condition. Neurology was consulted, and I did update the neurologist Dr. Murray who agreed to evaluate the patient. Undiagnosed new problem with uncertain prognosis? @ -Yes. Right upper extremity weakness Drug Therapy requiring intensive monitoring for toxicity (Heparin, Nitro, Insulin, Cardizem)? @ -none Were any procedures done? @ -none Diagnosis/symptom? @ -Right upper extremity weakness, TIA versus CVA versus psychiatric Acute, or Chronic, or Acute on Chronic? @ -Acute Uncomplicated (without systemic symptoms) or Complicated (systemic symptoms)? @ -Uncomplicated Side effects of treatment? @ -none Exacerbation, Progression, or Severe Exacerbation] @ -no Poses a threat to life or bodily function? @ -no - Lab Data Result diagrams: 11/10/22 16:46 11/10/22 16:46 Lab Results 11/10/22 11/10/22 11/10/22 Range/Units 16:23 16:46 16:46 WBC 7.3 (3.8-10.6) k/uL RBC 4.75 (3.80-5.40) m/uL Hgb 14.2 (11.4-16.0) gm/dL Hct 41.9 (34.0-46.0) % MCV 88.3 (80.0-100.0) fL MCH 29.9 (25.0-35.0) pg MCHC 33.9 (31.0-37.0) g/dL RDW 14.4 (11.5-15.5) % Plt Count 268 (150-450) k/uL MPV 8.1 Neutrophils % (Manual) 49 % Lymphocytes % (Manual) 41 % Monocytes % (Manual) 6 % Eosinophils % (Manual) 3 % Basophils % (Manual) 1 % Neutrophils # (Manual) 3.58 (1.3-7.7) k/uL Lymphocytes # (Manual) 2.99 (1.0-4.8) k/uL Monocytes # (Manual) 0.44 (0-1.0) k/uL Eosinophils # (Manual) 0.22 (0-0.7) k/uL Basophils # (Manual) 0.07 (0-0.2) k/uL Nucleated RBCs 0 (0-0) /100 WBC Manual Slide Review Performed RBC Morphology Normal PT 10.8 (9.0-12.0) sec INR 1.0 (<1.2) APTT 25.4 (22.0-30.0) sec Sodium (137-145) mmol/L Potassium (3.5-5.1) mmol/L Chloride (98-107) mmol/L Carbon Dioxide (22-30) mmol/L Anion Gap mmol/L BUN (7-17) mg/dL Creatinine (0.52-1.04) mg/dL Est GFR (CKD-EPI)AfAm (>60 ml/min/1.73 sqM) Est GFR (CKD-EPI)NonAf (>60 ml/min/1.73 sqM) Glucose (74-99) mg/dL POC Glucose (mg/dL) 102 (70-110) mg/dL POC Glu Clinical Rehabilitation Specialist ID Lawrence Khan Calcium (8.4-10.2) mg/dL Total Bilirubin (0.2-1.3) mg/dL AST (14-36) U/L ALT (4-34) U/L Alkaline Phosphatase (38-126) U/L Troponin I (0.000-0.034) ng/mL Total Protein (6.3-8.2) g/dL Albumin (3.5-5.0) g/dL 11/10/22 11/10/22 Range/Units 16:46 16:46 WBC (3.8-10.6) k/uL RBC (3.80-5.40) m/uL Hgb (11.4-16.0) gm/dL Hct (34.0-46.0) % MCV (80.0-100.0) fL MCH (25.0-35.0) pg MCHC (31.0-37.0) g/dL RDW (11.5-15.5) % Plt Count (150-450) k/uL MPV Neutrophils % (Manual) % Lymphocytes % (Manual) % Monocytes % (Manual) % Eosinophils % (Manual) % Basophils % (Manual) % Neutrophils # (Manual) (1.3-7.7) k/uL Lymphocytes # (Manual) (1.0-4.8) k/uL Monocytes # (Manual) (0-1.0) k/uL Eosinophils # (Manual) (0-0.7) k/uL Basophils # (Manual) (0-0.2) k/uL Nucleated RBCs (0-0) /100 WBC Manual Slide Review RBC Morphology PT (9.0-12.0) sec INR (<1.2) APTT (22.0-30.0) sec Sodium 142 (137-145) mmol/L Potassium 4.2 (3.5-5.1) mmol/L Chloride 104 (98-107) mmol/L Carbon Dioxide 24 (22-30) mmol/L Anion Gap 14 mmol/L BUN 14 (7-17) mg/dL Creatinine 0.66 (0.52-1.04) mg/dL Est GFR (CKD-EPI)AfAm >90 (>60 ml/min/1.73 sqM) Est GFR (CKD-EPI)NonAf >90 (>60 ml/min/1.73 sqM) Glucose 103 H (74-99) mg/dL POC Glucose (mg/dL) (70-110) mg/dL POC Glu Clinical Rehabilitation Specialist ID Calcium 9.3 (8.4-10.2) mg/dL Total Bilirubin 0.2 (0.2-1.3) mg/dL AST 53 H (14-36) U/L ALT 42 H (4-34) U/L Alkaline Phosphatase 140 H (38-126) U/L Troponin I <0.012 (0.000-0.034) ng/mL Total Protein 7.6 (6.3-8.2) g/dL Albumin 4.5 (3.5-5.0) g/dL - EKG Data -: EKG Interpreted by Me EKG Comments: 12-lead Electrocardiogram Interpretation Note EKG was reviewed and interpreted by myself. 12-lead ECG performed at 1740 is interpreted by me as revealing normal sinus rhythm at a rate of 85 beats per minute. [place] is normal. LA interval is 147 ms, QRS duration is 96 ms, QTc is 422 ms.. There are acute T-wave inversions seen in the lateral precordial leads V4 through V6. Somewhat in V3 as well. Also T-wave inversion in lead II. No reciprocal changes.. R wave progression across the precordium was satisfactory. By my interpretation, this EKG is concerning for possible ischemia. Changes do appear acute, and are not seen on prior EKGs from July 2022.. Disposition Clinical Impression: Neurological deficit present, Right arm weakness Disposition: Left Against Medical Advice Condition: Stable Time of Disposition: 18:45
--- NOTE | 2022-11-10 17:32 | XR ---
EXAMINATION TYPE: XR chest 2V DATE OF EXAM: 11/10/2022 5:04 PM COMPARISON: Chest radiographs from 10/15/2022 TECHNIQUE: XR chest 2V Frontal and lateral views of the chest. CLINICAL INDICATION:Female, 62 years old with history of altered mental status; FINDINGS: Lungs/Pleura: There is no evidence of pleural effusion, focal consolidation, or pneumothorax. Pulmonary vascularity: Unremarkable. Heart/mediastinum: Cardiomediastinal silhouette is unremarkable. Musculoskeletal: No acute osseous pathology. IMPRESSION: No acute cardiopulmonary disease/process.
[2022-11-10 17:33] LABS: ALT 42 U/L (4-34); AST 53 U/L (14-36); African American GFR (CKD) >90 (>60 ml/min/1.73 sqM); Albumin 4.5 g/dL (3.5-5.0); Alkaline Phosphatase 140 U/L (38-126); Anion Gap 14 mmol/L; Blood Urea Nitrogen 14 mg/dL (7-17); Calcium 9.3 mg/dL (8.4-10.2); Carbon Dioxide 24 mmol/L (22-30); Chloride 104 mmol/L (98-107); Glucose 103 mg/dL (74-99); Non-African American GFR(CKD) >90 (>60 ml/min/1.73 sqM); Potassium 4.2 mmol/L (3.5-5.1); Sodium 142 mmol/L (137-145); Total Bilirubin 0.2 mg/dL (0.2-1.3); Total Protein 7.6 g/dL (6.3-8.2)
--- NOTE | 2022-11-10 17:44 | CT ---
EXAMINATION TYPE: CT brain wo con for TPA CT DLP: 1113.2 mGycm, Automated exposure control for dose reduction was used. DATE OF EXAM: 11/10/2022 5:18 PM 06/10/2022 CLINICAL INDICATION:Female, 62 years old with history of Neuro deficit, acute, stroke suspe cted, weakness, dizziness, hx of cva TECHNIQUE: Brain: Axial CT images of the brain were obtained with coronal and sagittal reformats created and rev iewed. Contrast used: None. Oral contrast used: None. FINDINGS: Brain: Extra-axial spaces: No abnormal extra-axial fluid collections. Ventricular system: Near the foramen of Yu is a 13 mm colloid cysts. Cerebral parenchyma: Encephalomalacia of the left parietal region from remote injury. No injury to th e left frontal lobe also present. No acute intraparenchymal hemorrhage or mass effect. The diamond-whit e junction is well differentiated. Cerebellum: There is some beam hardening artifact extending through the posterior cranial fossa with pseudo high density on the left aspect on series 201 image 19. Mass effect: No evidence of midline shift. Intracranial vasculature: Atherosclerotic calcifications of the intracranial vessels. Soft tissues: Normal. Calvarium/osseous structures: No depressed skull fracture. Paranasal sinuses and mastoid air cells: Mild scattered paranasal sinus disease. Visualized orbits: Orbital contents are intact. IMPRESSION: 1. No acute intracranial process. No intracranial hemorrhage. 2. Similar 13 mm colloid cyst. 3. Similar left parietal and left frontal encephalomalacia from remote injury.
[2022-11-10 17:46] LABS: Partial Thromboplastin Time 25.4 sec (22.0-30.0); Prothrombin Time 10.8 sec (9.0-12.0)
[2022-11-10 18:08] LABS: HCT 41.9 % (34.0-46.0); HGB 14.2 gm/dL (11.4-16.0); MCH 29.9 pg (25.0-35.0); MCHC 33.9 g/dL (31.0-37.0); MCV 88.3 fL (80.0-100.0); Mean Platelet Volume 8.1; Platelet Count 268 k/uL (150-450); RBC 4.75 m/uL (3.80-5.40); RDW 14.4 % (11.5-15.5); WBC 7.3 k/uL (3.8-10.6)
--- NOTE | 2022-11-10 18:09 | CT ---
EXAMINATION TYPE: CT angio head neck CT DLP: 505.7 mGycm, Automated exposure control for dose reduction was used. DATE OF EXAM: 11/10/2022 5:34 PM COMPARISON: . CLINICAL INDICATION:Female, 62 years old with history of Neuro deficit, acute, stroke suspected; PHH, weakness, dizziness, hx of cva TECHNIQUE: Axially acquired helical CT angiogram of the head and neck was obtained with contrast. Axi al images are supplemented with 3D reconstructions which [facility] NASCET criteria used. Contrast used:65cc mL of Isovue 370 with IV Contrast, Oral contrast used: None. FINDINGS: CTA HEAD: Redemonstration of colloid cyst measuring up to 12 mm in the caudocranial dimension. No evidence of acute intracranial hemorrhage, mass effect, or midline shift. The ventricles, sulci, a nd cisterns are unremarkable. The visualized portions of the internal carotid arteries, middle cerebral arteries, anterior cerebral arteries, and posterior cerebral arteries are patent. Atherosclerosis of the intracranial internal c arotid arteries. origin of the right posterior cerebral artery. The basilar and vertebral arteries are patent. Intracranial vertebral artery calcified plaque noted b ilaterally. CTA NECK: Right Carotid System: The common carotid artery and external carotid artery are patent. The carotid bifurcation demonstrate s calcified plaque with 50% stenosis at the carotid bifurcation. Calcified plaque in the proximal int ernal carotid artery with at least 50% % stenosis. The remaining portions of the internal carotid art erinn demonstrate normal size without significant narrowing. Left Carotid System: The common carotid artery and external carotid artery are patent. The carotid bifurcation demonstrate s carotid endarterectomy changes. Bifurcation appears intact.. The remaining portions of the internal carotid artery demonstrate normal size without significant narrowing. Vertebral arteries are patent without evidence hemodynamically significant stenosis. There is a four-vessel aortic arch. The origins of the great vessels are patent. No evidence of hemod ynamically significant stenosis. IMPRESSION: 1. No evidence of dissection of the cervical internal carotid arteries or vertebral arteries. 2. No evidence of intracranial high-grade stenosis or intracranial aneurysm. 3. Left carotid endarterectomy changes which is patent. 4. Right carotid bifurcation and proximal internal carotid artery atherosclerosis with at least 50% s tenosis.
[2022-11-10] MEDS ORDERED: ASPIRIN 325 MG TAB PO STA (18:46)
[2022-11-10] MEDS ORDERED: IPRATROPIUM-ALBUTEROL 3 ML NEB INHALATION PRN (19:04)
[2022-11-10] MEDS ORDERED: CYCLOBENZAPRINE 10 MG TAB PO PRN (19:04)
[2022-11-10] MEDS ORDERED: HYDROcodone/APAP 7.5-325MG 1 EACH TAB PO PRN (19:04)
[2022-11-10] MEDS ORDERED: ONDANSETRON ODT 4 MG TAB PO PRN (19:04)
[2022-11-10] MEDS ORDERED: chlordiazePOXIDE 25 MG CAP PO PRN (19:04)
[2022-11-10 19:10] VITALS: BP 124/99; PULSE 104; RESP 18
[2022-11-10 19:57] LABS: Basophils # (M) 0.07 k/uL (0-0.2); Eosinophils # (M) 0.22 k/uL (0-0.7); Lymphocytes # (M) 2.99 k/uL (1.0-4.8); Monocytes # (M) 0.44 k/uL (0-1.0); Neutrophils # (M) 3.58 k/uL (1.3-7.7); Neutrophils % (M) 49 %; Nucleated Red Blood Cells 0 /100 WBC (0-0); Total Cells Counted 100
[2022-11-10 19:58] LABS: RBC Morphology Normal
[2022-11-10] MEDS ORDERED: SYMBICORT 160-4.5 MCG INHALER INHALATION SCH (20:00)
[2022-11-10] MEDS ORDERED: ATORVASTATIN 20 MG TAB PO SCH (21:00)
[2022-11-10] MEDS ORDERED: BRIMONIDINE TARTRATE 0.2% DROPS 5 ML BTL BOTH EYES SCH (21:00)
[2022-11-11] MEDS ORDERED: PANTOPRAZOLE 40 MG TABLET PO SCH (07:30)
[2022-11-11] MEDS ORDERED: MAGNESIUM OXIDE 400 MG TAB PO SCH (09:00)
[2022-11-11] MEDS ORDERED: METOPROLOL SUCCINATE (ER) 50 MG TAB.ER.24H PO SCH (09:00)
[2022-11-11] MEDS ORDERED: NON FORMULARY DRUG (Vitamin B Complex [Vitamin B Complex] 1 EACH Capsule) PO SCH (09:00)
[2022-11-11] MEDS ORDERED: ASPIRIN 81 MG PO SCH (09:00)
[2022-11-11] MEDS ORDERED: FLUTICASONE 50MCG/SPRAY NASAL 16GM EA NOSTRIL SCH (09:00)
[2022-11-11] MEDS ORDERED: ISOSORBIDE MONONITRATE ER 30 MG TAB.ER.24H PO SCH (09:00)
== END 2022-11-10 20:07 | disposition left against medical advice (07) | DRG 558 ==
LOC: EC 15:51 → 4SSUR 19:04
PROVIDERS: ADMIT Internal Medicine; ATTEND Internal Medicine
DX: M62.521 Muscle wasting and atrophy, not elsewhere classified, right upper arm (principal); I69.351 Hemiplegia and hemiparesis following cerebral infarction affecting right dominant side; K70.30 Alcoholic cirrhosis of liver without ascites; G93.89 Other specified disorders of brain; G93.0 Cerebral cysts; E86.0 Dehydration; G40.909 Epilepsy, unspecified, not intractable, without status epilepticus; J44.9 Chronic obstructive pulmonary disease, unspecified; I10 Essential (primary) hypertension; F32.A Depression, unspecified; F41.9 Anxiety disorder, unspecified; F10.10 Alcohol abuse, uncomplicated; K29.70 Gastritis, unspecified, without bleeding; R13.10 Dysphagia, unspecified; I25.10 Atherosclerotic heart disease of native coronary artery without angina pectoris; G89.29 Other chronic pain; M54.9 Dorsalgia, unspecified; I25.2 Old myocardial infarction; K58.9 Irritable bowel syndrome, unspecified; K76.9 Liver disease, unspecified; M51.36 Other intervertebral disc degeneration, lumbar region; F17.200 Nicotine dependence, unspecified, uncomplicated; H26.9 Unspecified cataract; Z71.6 Tobacco abuse counseling; Z79.82 Long term (current) use of aspirin; Z79.51 Long term (current) use of inhaled steroids; Z79.899 Other long term (current) drug therapy; Z91.81 History of falling; Z87.81 Personal history of (healed) traumatic fracture; Z88.5 Allergy status to narcotic agent; Z88.7 Allergy status to serum and vaccine; Z91.040 Latex allergy status
CPT/HCPCS: 36415; 70450; 70496; 70498; 71046; 80053; 84484; 85025; 85610; 85730; 93005; 99285

== ENCOUNTER 2023-01-14 04:45 | Observation (INO) | payer OTHER ==
--- NOTE | 2023-01-14 05:06 | ED ---
SOB HPI - General Chief Complaint: Shortness of Breath Stated Complaint: MARY ALICE Time Seen by Provider: 01/14/23 04:53 Source: patient, EMS Mode of arrival: EMS Limitations: no limitations - History of Present Illness Initial Comments: This patient is a 62-year-old woman with history of COPD who presents with complaint that her breathing is worse than usual. Patient reports that there is no power at her home. She states that therefore the temperature is lower than usual and in addition to that she is not able to use her nebulizer so she is having worsening of her respiratory symptoms. She has not noted fever or chills. No chest pain. No productive cough. No change in legs or any swelling. MD Complaint: shortness of breath -: days(s) Severity scale (1-10): 0 Improves With: nothing Worsens With: exertion Known History Of: COPD Treatments Prior to Arrival: none - Related Data Home Medications Medication Instructions Recorded Confirmed Aspirin EC [Ecotrin Low Dose] 81 mg PO DAILY 02/11/19 01/14/23 Metoprolol Succinate (ER) [Toprol 50 mg PO DAILY 06/13/21 01/14/23 XL] Pantoprazole [Protonix] 40 mg PO DAILY 06/13/21 01/14/23 Fluticasone Nasal Mcloud [Flonase 1 spr EA NOSTRIL DAILY 02/14/22 01/14/23 Nasal Mcloud] Magnesium Oxide 400 mg PO DAILY 02/14/22 01/14/23 Simvastatin [Zocor] 40 mg PO HS 07/03/22 01/14/23 Vitamin B Complex 1 cap PO DAILY 07/03/22 01/14/23 Brimonidine Tartrate [Alphagan P 1 drop BOTH EYES BID 11/10/22 01/14/23 0.2% Ophth Soln] Budesonide-Formot 160-4.5 Mcg 2 puff INHALATION RT-BID 11/10/22 01/14/23 [Symbicort 160-4.5 Mcg Inhaler] HYDROcodone/APAP 7.5-325MG [Brundidge 1 tab PO Q6H PRN 11/10/22 01/14/23 7.5-325] Isosorbide Mononitrate ER [Imdur] 30 mg PO DAILY 11/10/22 01/14/23 Ketorolac [Toradol] 10 mg PO Q8H PRN 11/10/22 01/14/23 chlordiazePOXIDE HCl [Librium] 25 mg PO TID PRN 11/10/22 01/14/23 Ticagrelor [Brilinta] 90 mg PO BID 01/14/23 01/14/23 Previous Rx's Medication Instructions Recorded Folic Acid 1 mg PO DAILY #30 tab 06/13/22 Ondansetron Odt [Zofran ODT] 4 mg PO Q8HR PRN #20 tab 06/13/22 Cyclobenzaprine [Flexeril] 10 mg PO TID PRN #20 tab 07/17/22 Nitroglycerin Sl Tabs [Nitrostat] 0.4 mg SUBLINGUAL Q5M PRN #30 tab 08/08/22 Allergies Allergy/AdvReac Type Severity Reaction Status Date / Time latex Allergy Rash/Hives Verified 01/14/23 11:52 Influenza Virus Vaccines AdvReac Nausea & Verified 01/14/23 11:52 Vomiting morphine AdvReac Nausea & Verified 01/14/23 11:52 Vomiting Review of Systems ROS Statement: Those systems with pertinent positive or pertinent negative responses have been documented in the HPI. ROS Other: All systems not noted in ROS Statement are negative. Constitutional: Denies: fever, chills, weakness Respiratory: Reports: dyspnea, wheezes. Denies: hemoptysis Cardiovascular: Denies: chest pain, palpitations, orthopnea, edema, syncope Gastrointestinal: Denies: abdominal pain, vomiting, diarrhea Genitourinary: Denies: dysuria, hematuria Musculoskeletal: Denies: back pain Skin: Denies: rash Neurological: Denies: headache, weakness, numbness Past Medical History Past Medical History: Asthma, Coronary Artery Disease (CAD), COPD, CVA/TIA, Eye Disorder, Hypertension, Liver Disease, Myocardial Infarction (PA), Seizure Disorder, Vascular Disorder Additional Past Medical History / Comment(s): Pt recently admitted to [facility] for diarrhea, ETOH abuse. 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 soon Last Myocardial Infarction Date:: aug 2018 History of Any Multi-Drug Resistant Organisms: None Reported Past Surgical History: Cholecystectomy, Heart Catheterization, Orthopedic Surgery Additional Past Surgical History / Comment(s): L caratid stent, bilateral knee surgeries for tendon repair, bartholian cyst removed bilateral wrists Past Anesthesia/Blood Transfusion Reactions: Motion Sickness Additional Past Anesthesia/Blood Transfusion Reaction / Comment(s): Pt has received blood without reaction. Past Psychological History: Anxiety, Depression Smoking Status: Current every day smoker Past Alcohol Use History: Daily, Heavy Past Drug Use History: Marijuana - Past Family History Mother Family Medical History: Cancer, Congestive Heart Failure (CHF), Coronary Artery Disease (CAD), Hyperlipidemia Additional Family Medical History / Comment(s): Mother at age 85 from lung cancer. Father Family Medical History: Cancer, COPD Additional Family Medical History / Comment(s): Father at age 63 from lung cancer. Brother(s) Additional Family Medical History / Comment(s): Patient has a total of 7 siblings. 5 are alive without any major medical problems she is aware of. 2 siblings have one from alcohol abuse and 1. Coronary artery disease. Daughter(s) Additional Family Medical History / Comment(s): Patient has one daughter with no major medical problems. General Exam Limitations: no limitations General appearance: alert, appears intoxicated Head exam: Present: atraumatic, normocephalic Eye exam: Present: normal appearance. Absent: scleral icterus, conjunctival injection ENT exam: Present: mucous membranes dry Neck exam: Present: normal inspection, full ROM Respiratory exam: Present: wheezes. Absent: respiratory distress, rales, rhonchi, stridor, chest wall tenderness, accessory muscle use Cardiovascular Exam: Present: regular rate, normal rhythm, normal heart sounds. Absent: systolic murmur, diastolic murmur, rubs, gallop GI/Abdominal exam: Present: soft. Absent: distended, tenderness, guarding, rebound, rigid, mass Extremities exam: Present: normal inspection, normal capillary refill. Absent: pedal edema, calf tenderness Back exam: Present: normal inspection Neurological exam: Present: alert Skin exam: Present: warm, dry, intact, normal color. Absent: rash Course Vital Signs 01/14/23 01/14/23 01/14/23 04:50 06:26 09:19 Temperature 97.7 F Pulse Rate 93 95 105 H Respiratory 18 20 18 Rate Blood Pressure 131/77 137/86 113/68 O2 Sat by Pulse 95 93 L 97 Oximetry Medical Decision Making - Medical Decision Making This patient is 62-year-old woman here with complaint of worsening of her usual shortness of breath. She clinically is consistent with COPD exacerbation. Patient also intoxicated. She did go for chest x-ray which I interpreted as not showing infiltrate, pneumothorax, or congestive heart failure. The patient will be admitted to have further treatment for COPD exacerbation. Was pt. sent in by a medical professional or institution (, PA, DRUM PLATER, urgent care, hospital, or prison...) When possible be specific @ -[No] Did you speak to anyone other than the patient for history (EMS, parent, family, police, friend...)? What history was obtained from this source @ -[No] Did you review nursing and triage notes (agree or disagree)? Why? @ -[I reviewed and agree with nursing and triage notes] Were old charts reviewed (outside hosp., previous admission, EMS record, old EKG, old radiological studies, urgent care reports/EKG's, prison records)? Report findings @ -[No old charts were reviewed] Differential Diagnosis (chest pain, altered mental status, abdominal pain women, abdominal pain men, vaginal bleeding, weakness, fever, dyspnea, syncope, headache, dizziness, GI bleed, back pain, seizure, CVA, palpatations, mental health, musculoskeletal)? @ -[Differential Dyspnea: Coronary syndrome, arrhythmia, tamponade, asthma, COPD, pulmonary embolism, pneumonia, pneumothorax, pulmonary effusion, anaphylaxis, diabetic ketoacidosis, flailed chest, pulmonary contusion, diaphragmatic rupture, anemia, neuromuscular, this is not meant to be an all-inclusive list. EKG interpreted by me (3pts min.). @ -[As above] X-rays interpreted by me (1pt min.). @ -[As above CT interpreted by me (1pt min.). @ -[None done] U/S interpreted by me (1pt. min.). @ -[None done] What testing was considered but not performed or refused? (CT, X-rays, U/S, labs)? Why? @ -[None] What meds were considered but not given or refused? Why? @ -[None] Did you discuss the management of the patient with other professionals (professionals i.e. , PA, DRUM PLATER, lab, RT, psych nurse, psychosocial rehabilitation counselor, rail car painter/sandblaster, teacher, chief innovation officer, showcase maker)? Give summary @ -[Admitting physician Was smoking cessation discussed for >3mins.? @ -[No] Was critical care preformed (if so, how long)? @ -[No] Were there social determinants of health that impacted care today? How? (Lela elessness, low income, unemployed, alcoholism, drug addiction, transportation, low edu. Level, literacy, decrease access to med. care, half-way, rehab)? @ -[No] Was there de-escalation of care discussed even if they declined (Discuss DNR or withdrawal of care, Hospice)? DNR status @ -[No] What co-morbidities impacted this encounter? (DM, HTN, Smoking, COPD, CAD, Cancer, CVA, ARF, Chemo, Hep., AIDS, mental health diagnosis, sleep apnea, morbid obesity)? @ -[None] Was patient admitted / discharged? Hospital course, mention meds given and route, prescriptions, significant lab abnormalities, going to OR and other pertinent info. @ -[Patient admitted Undiagnosed new problem with uncertain prognosis? @ -[No] Drug Therapy requiring intensive monitoring for toxicity (Heparin, Nitro, Insulin, Cardizem)? @ -[No] Were any procedures done? @ -[No] Diagnosis/symptom? @ -[1. Acute exacerbation of COPD 2. Acute alcohol intoxication Acute, or Chronic, or Acute on Chronic? @ -[Acute on chronic Uncomplicated (without systemic symptoms) or Complicated (systemic symptoms)? @ -[Uncomplicated Side effects of treatment? @ -[No] Exacerbation, Progression, or Severe Exacerbation? @ -[No] Poses a threat to life or bodily function? How? (Chest pain, USA, PA, pneumonia, PE, COPD, DKA, ARF, appy, cholecystitis, CVA, Diverticulitis, Homicidal, Suicidal, threat to staff... and all critical care pts) @ -[No] - Lab Data Result diagrams: 01/15/23 03:20 01/15/23 03:20 Lab Results 01/14/23 01/14/23 01/14/23 Range/Units 05:05 05:05 05:05 WBC 10.4 (3.8-10.6) k/uL RBC 4.50 (3.80-5.40) m/uL Hgb 13.8 (11.4-16.0) gm/dL Hct 42.7 (34.0-46.0) % MCV 95.0 (80.0-100.0) fL MCH 30.8 (25.0-35.0) pg MCHC 32.4 (31.0-37.0) g/dL RDW 18.8 H (11.5-15.5) % Plt Count 255 (150-450) k/uL MPV 7.9 Neutrophils % 55 % Lymphocytes % 34 % Monocytes % 4 % Eosinophils % 2 % Basophils % 2 % Neutrophils # 5.7 (1.3-7.7) k/uL Lymphocytes # 3.5 (1.0-4.8) k/uL Monocytes # 0.4 (0-1.0) k/uL Eosinophils # 0.2 (0-0.7) k/uL Basophils # 0.3 H (0-0.2) k/uL Anisocytosis Slight Macrocytosis Slight PT (9.0-12.0) sec INR (<1.2) APTT (22.0-30.0) sec D-Dimer (<0.60) mg/L FEU Sodium 143 (137-145) mmol/L Potassium 4.2 (3.5-5.1) mmol/L Chloride 106 (98-107) mmol/L Carbon Dioxide 24 (22-30) mmol/L Anion Gap 13 mmol/L BUN 12 (7-17) mg/dL Creatinine 0.51 L (0.52-1.04) mg/dL Est GFR (CKD-EPI)AfAm >90 (>60 ml/min/1.73 sqM) Est GFR (CKD-EPI)NonAf >90 (>60 ml/min/1.73 sqM) Glucose 147 H (74-99) mg/dL Lactic Ac Sepsis Rflx Plasma Lactic Acid Camron (0.7-2.0) mmol/L Calcium 8.7 (8.4-10.2) mg/dL Magnesium 2.0 (1.6-2.3) mg/dL Total Bilirubin 0.4 (0.2-1.3) mg/dL AST 41 H (14-36) U/L ALT 33 (4-34) U/L Alkaline Phosphatase 92 (38-126) U/L Troponin I 0.023 (0.000-0.034) ng/mL NT-Pro-B Natriuret Pep pg/mL Total Protein 7.0 (6.3-8.2) g/dL Albumin 4.2 (3.5-5.0) g/dL Serum Alcohol 339 H* mg/dL Coronavirus (PCR) (Not Detectd) 01/14/23 01/14/23 01/14/23 Range/Units 05:05 05:33 05:33 WBC (3.8-10.6) k/uL RBC (3.80-5.40) m/uL Hgb (11.4-16.0) gm/dL Hct (34.0-46.0) % MCV (80.0-100.0) fL MCH (25.0-35.0) pg MCHC (31.0-37.0) g/dL RDW (11.5-15.5) % Plt Count (150-450) k/uL MPV Neutrophils % % Lymphocytes % % Monocytes % % Eosinophils % % Basophils % % Neutrophils # (1.3-7.7) k/uL Lymphocytes # (1.0-4.8) k/uL Monocytes # (0-1.0) k/uL Eosinophils # (0-0.7) k/uL Basophils # (0-0.2) k/uL Anisocytosis Macrocytosis PT 10.0 (9.0-12.0) sec INR 0.9 (<1.2) APTT 23.0 (22.0-30.0) sec D-Dimer 0.39 (<0.60) mg/L FEU Sodium (137-145) mmol/L Potassium (3.5-5.1) mmol/L Chloride (98-107) mmol/L Carbon Dioxide (22-30) mmol/L Anion Gap mmol/L BUN (7-17) mg/dL Creatinine (0.52-1.04) mg/dL Est GFR (CKD-EPI)AfAm (>60 ml/min/1.73 sqM) Est GFR (CKD-EPI)NonAf (>60 ml/min/1.73 sqM) Glucose (74-99) mg/dL Lactic Ac Sepsis Rflx Plasma Lactic Acid Camron 2.5 H* (0.7-2.0) mmol/L Calcium (8.4-10.2) mg/dL Magnesium (1.6-2.3) mg/dL Total Bilirubin (0.2-1.3) mg/dL AST (14-36) U/L ALT (4-34) U/L Alkaline Phosphatase (38-126) U/L Troponin I (0.000-0.034) ng/mL NT-Pro-B Natriuret Pep 254 pg/mL Total Protein (6.3-8.2) g/dL Albumin (3.5-5.0) g/dL Serum Alcohol mg/dL Coronavirus (PCR) (Not Detectd) 01/14/23 01/14/23 Range/Units 05:33 06:26 WBC (3.8-10.6) k/uL RBC (3.80-5.40) m/uL Hgb (11.4-16.0) gm/dL Hct (34.0-46.0) % MCV (80.0-100.0) fL MCH (25.0-35.0) pg MCHC (31.0-37.0) g/dL RDW (11.5-15.5) % Plt Count (150-450) k/uL MPV Neutrophils % % Lymphocytes % % Monocytes % % Eosinophils % % Basophils % % Neutrophils # (1.3-7.7) k/uL Lymphocytes # (1.0-4.8) k/uL Monocytes # (0-1.0) k/uL Eosinophils # (0-0.7) k/uL Basophils # (0-0.2) k/uL Anisocytosis Macrocytosis PT (9.0-12.0) sec INR (<1.2) APTT (22.0-30.0) sec D-Dimer (<0.60) mg/L FEU Sodium (137-145) mmol/L Potassium (3.5-5.1) mmol/L Chloride (98-107) mmol/L Carbon Dioxide (22-30) mmol/L Anion Gap mmol/L BUN (7-17) mg/dL Creatinine (0.52-1.04) mg/dL Est GFR (CKD-EPI)AfAm (>60 ml/min/1.73 sqM) Est GFR (CKD-EPI)NonAf (>60 ml/min/1.73 sqM) Glucose (74-99) mg/dL Lactic Ac Sepsis Rflx Y Plasma Lactic Acid Camron (0.7-2.0) mmol/L Calcium (8.4-10.2) mg/dL Magnesium (1.6-2.3) mg/dL Total Bilirubin (0.2-1.3) mg/dL AST (14-36) U/L ALT (4-34) U/L Alkaline Phosphatase (38-126) U/L Troponin I (0.000-0.034) ng/mL NT-Pro-B Natriuret Pep pg/mL Total Protein (6.3-8.2) g/dL Albumin (3.5-5.0) g/dL Serum Alcohol mg/dL Coronavirus (PCR) Not Detected (Not Detectd) - EKG Data -: EKG Interpreted by Me EKG shows normal: sinus rhythm, axis (Normal), intervals (Normal), ST-T waves (Normal) Rate: normal (94 bpm) Interpretation: LVH Disposition Clinical Impression: COPD (chronic obstructive pulmonary disease), Acute alcohol intoxication Disposition: ADMITTED IP TO THIS HOSP Condition: Fair Is patient prescribed a controlled substance at d/c from ED?: No
--- NOTE | 2023-01-14 05:24 | XR ---
EXAMINATION TYPE: XR chest 2V DATE OF EXAM: 01/14/2023 COMPARISON: 11/10/2022 HISTORY: Short of breath TECHNIQUE: 2 view FINDINGS: Heart is borderline enlarged. No heart failure seen. No pleural fluid. There are chest lead s. IMPRESSION: Borderline cardiomegaly. No acute lung disease. No change.
[2023-01-14 05:30] LABS: Anisocytosis Slight; Basophils # (A) 0.3 k/uL (0-0.2); Basophils % (A) 2 %; Eosinophils # (A) 0.2 k/uL (0-0.7); Eosinophils % (A) 2 %; HCT 42.7 % (34.0-46.0); HGB 13.8 gm/dL (11.4-16.0); Lymphocytes # (A) 3.5 k/uL (1.0-4.8); Lymphocytes % (A) 34 %; MCH 30.8 pg (25.0-35.0); MCHC 32.4 g/dL (31.0-37.0); Macrocytosis Slight; Mean Platelet Volume 7.9; Monocytes # (A) 0.4 k/uL (0-1.0); Monocytes % (A) 4 %; Neutrophils # (A) 5.7 k/uL (1.3-7.7); Neutrophils % (A) 55 %; Platelet Count 255 k/uL (150-450); RDW 18.8 % (11.5-15.5); WBC 10.4 k/uL (3.8-10.6)
[2023-01-14 05:36] LABS: ALT 33 U/L (4-34); AST 41 U/L (14-36); African American GFR (CKD) >90 (>60 ml/min/1.73 sqM); Albumin 4.2 g/dL (3.5-5.0); Alkaline Phosphatase 92 U/L (38-126); Anion Gap 13 mmol/L; Blood Urea Nitrogen 12 mg/dL (7-17); Calcium 8.7 mg/dL (8.4-10.2); Carbon Dioxide 24 mmol/L (22-30); Chloride 106 mmol/L (98-107); Glucose 147 mg/dL (74-99); Non-African American GFR(CKD) >90 (>60 ml/min/1.73 sqM); Potassium 4.2 mmol/L (3.5-5.1); Sodium 143 mmol/L (137-145); Total Bilirubin 0.4 mg/dL (0.2-1.3)
[2023-01-14 06:05] LABS: Alcohol 339 mg/dL
[2023-01-14 06:07] LABS: INR 0.9 (<1.2)
[2023-01-14] MEDS ORDERED: ACETAMINOPHEN TAB 325 MG TAB PO PRN (07:07)
[2023-01-14] MEDS ORDERED: NALOXONE 0.4 MG/ML 1 ML VIAL IVP PRN (07:07)
[2023-01-14] MEDS ORDERED: LORazepam 2 MG/ML INJ IV PRN ×3 (07:09)
[2023-01-14] MEDS ORDERED: chlordiazePOXIDE 25 MG CAP PO PRN (07:09)
[2023-01-14] MEDS ORDERED: SYMBICORT 80-4.5 MCG INHALER INHALATION SCH (08:00)
[2023-01-14] MEDS: ALBUTEROL HFA INHALER INHALATION SCH ×4 (08:35→20:06)
[2023-01-14] MEDS: predniSONE 20 MG TAB PO SCH (10:18)
[2023-01-14] MEDS: TIOTROPIUM 2.5 MCG INHALER INHALATION SCH (11:18)
[2023-01-14] MEDS: METOPROLOL SUCCINATE (ER) 50 MG TAB.ER.24H PO SCH (14:04)
[2023-01-14] MEDS: PANTOPRAZOLE 40 MG TABLET PO SCH (14:04)
[2023-01-14] MEDS: MAGNESIUM OXIDE 400 MG TAB PO SCH (14:04)
[2023-01-14] MEDS: SODIUM CHLORIDE 0.9% 1,000 ML IV SCH ×2 (14:05→21:52)
[2023-01-14] MEDS: FOLIC ACID 1 MG TAB PO SCH (14:07)
[2023-01-14] MEDS: HYDROcodone/APAP 7.5-325MG 1 EACH TAB PO PRN ×2 (14:26→21:52)
--- NOTE | 2023-01-14 16:55 | P.HPIM ---
History of Present Illness H&P Date: 01/14/23 Chief Complaint: Shortness of breath 62-year-old woman with history of COPD who presents with complaint that her breathing is worse than usual. Patient reports that there is no power at her home. She states that therefore the temperature is lower than usual and in addition to that she is not able to use her nebulizer so she is having worsening of her respiratory symptoms. She has not noted fever or chills. No chest pain. No productive cough. No change in legs or any swelling. Blood work completed in ED to be revisited 0.4, hemoglobin 13.8 and platelet count of 255, sodium 143, potassium 4.2, BUN/creatinine of 12/0.5 and blood glucose of 147 chest x-ray which I interpreted as not showing infiltrate, pneumothorax, or congestive heart failure. The patient will be admitted to have further treatment for COPD exacerbation. Review of Systems REVIEW OF SYSTEMS: CONSTITUTIONAL: No fever, no malaise, no fatigue. HEENT: No recent visual problems or hearing problems. Denied any sore throat. CARDIOVASCULAR: No chest pain, orthopnea, PND, no palpitations, no syncope. PULMONARY: No shortness of breath, no cough, no hemoptysis. GASTROINTESTINAL: No diarrhea, no nausea, no vomiting, no abdominal pain. NEUROLOGICAL: No headaches, no weakness, no numbness. HEMATOLOGICAL: Denies any bleeding or petechiae. GENITOURINARY: Denies any burning micturition, frequency, or urgency. MUSCULOSKELETAL/RHEUMATOLOGICAL: Denies any joint pain, swelling, or any muscle pain. ENDOCRINE: Denies any polyuria or polydipsia. The rest of the 14-point review of systems is negative. Past Medical History Past Medical History: Asthma, Coronary Artery Disease (CAD), COPD, CVA/TIA, Eye Disorder, Hypertension, Liver Disease, Myocardial Infarction ([place]), Seizure Disorder, Vascular Disorder Additional Past Medical History / Comment(s): Pt recently admitted to [facility] for diarrhea, ETOH abuse. 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 Last seizure last week. Last Myocardial Infarction Date:: aug 2018 History of Any Multi-Drug Resistant Organisms: None Reported Past Surgical History: Cholecystectomy, Heart Catheterization, Orthopedic Surgery Additional Past Surgical History / Comment(s): L caratid stent, bilateral knee surgeries for tendon repair, bartholian cyst removed bilateral wrists, cataracts surgery Past Anesthesia/Blood Transfusion Reactions: Motion Sickness Additional Past Anesthesia/Blood Transfusion Reaction / Comment(s): Pt has received blood without reaction. Past Psychological History: Anxiety, Depression Additional Psychological History / Comment(s): Pt states lately her stress/anxiety has been increased. She uses a walker to ambulate. She has a nebulizer. She no longer drives, Pt manages her own meds. She states meals are an issue d/t difficulty standing/using a walker. Smoking Status: Current every day smoker Past Alcohol Use History: Daily, Heavy Additional Past Alcohol Use History / Comment(s): Pt started smoking as a teen and has cut down to 1 pack / day. Pt. states she has been drinking more to stay warm because she lost power. Drinks ~8 shots / day. Past Drug Use History: Marijuana Additional Drug Use History / Comment(s): Pt has medical marijuana, reports she has not used it in a while. - Past Family History Mother Family Medical History: Cancer, Congestive Heart Failure (CHF), Coronary Artery Disease (CAD), Hyperlipidemia Additional Family Medical History / Comment(s): Mother at age 85 from lung cancer. Father Family Medical History: Cancer, COPD Additional Family Medical History / Comment(s): Father at age 63 from lung cancer. Brother(s) Additional Family Medical History / Comment(s): Patient has a total of 7 siblings. 5 are alive without any major medical problems she is aware of. 2 siblings have one from alcohol abuse and 1. Coronary artery disease. Daughter(s) Additional Family Medical History / Comment(s): Patient has one daughter with no major medical problems. Medications and Allergies Home Medications Medication Instructions Recorded Confirmed Type Aspirin EC [Ecotrin Low Dose] 81 mg PO DAILY 02/11/19 01/14/23 History Metoprolol Succinate (ER) [Toprol 50 mg PO DAILY 06/13/21 01/14/23 History XL] Pantoprazole [Protonix] 40 mg PO DAILY 06/13/21 01/14/23 History Fluticasone Nasal [place] [Flonase 1 spr EA NOSTRIL DAILY 02/14/22 01/14/23 History Nasal [place]] Magnesium Oxide 400 mg PO DAILY 02/14/22 01/14/23 History Folic Acid 1 mg PO DAILY #30 tab 06/13/22 01/14/23 Rx Ondansetron Odt [Zofran ODT] 4 mg PO Q8HR PRN #20 tab 06/13/22 01/14/23 Rx Simvastatin [Zocor] 40 mg PO HS 07/03/22 01/14/23 History Vitamin B Complex 1 cap PO DAILY 07/03/22 01/14/23 History Cyclobenzaprine [Flexeril] 10 mg PO TID PRN #20 tab 07/17/22 01/14/23 Rx Nitroglycerin Sl Tabs [Nitrostat] 0.4 mg SUBLINGUAL Q5M PRN #30 tab 08/08/22 01/14/23 Rx Brimonidine Tartrate [Alphagan P 1 drop BOTH EYES BID 11/10/22 01/14/23 History 0.2% Ophth Soln] Budesonide-Formot 160-4.5 Mcg 2 puff INHALATION RT-BID 11/10/22 01/14/23 History [Symbicort 160-4.5 Mcg Inhaler] HYDROcodone/APAP 7.5-325MG [[place] 1 tab PO Q6H PRN 11/10/22 01/14/23 History 7.5-325] Isosorbide Mononitrate ER [Imdur] 30 mg PO DAILY 11/10/22 01/14/23 History Ketorolac [Toradol] 10 mg PO Q8H PRN 11/10/22 01/14/23 History chlordiazePOXIDE HCl [Librium] 25 mg PO TID PRN 11/10/22 01/14/23 History Ticagrelor [Brilinta] 90 mg PO BID 01/14/23 01/14/23 History Allergies Allergy/AdvReac Type Severity Reaction Status Date / Time latex Allergy Rash/Hives Verified 01/14/23 11:52 Influenza Virus Vaccines AdvReac Nausea & Verified 01/14/23 11:52 Vomiting morphine AdvReac Nausea & Verified 01/14/23 11:52 Vomiting Physical Exam Vitals: Vital Signs Temp Pulse Resp BP Pulse Ox 01/14/23 09:19 105 H 18 113/68 97 01/14/23 06:26 95 20 137/86 93 L 01/14/23 04:50 97.7 F 93 18 131/77 95 Intake and Output 01/13/23 01/14/23 01/14/23 22:59 06:59 14:59 Other: Weight 77.111 kg 77.111 kg - Constitutional General appearance: Present: average body habitus, cooperative, no acute distress - EENT Eyes: Present: anicteric sclerae, EOMI, PERRLA, normal appearance ENT: Present: hearing grossly normal, normal oropharynx Ears: bilateral: normal - Neck Neck: Present: normal ROM. Absent: lymphadenopathy, rigidity, thyromegaly Carotids: negative: bruit present Thyroid: bilateral: normal size, negative: enlarged, nodule - Respiratory Respiratory: bilateral: CTA, negative: rales, rhonchi, wheezing - Cardiovascular Rhythm: regular Heart sounds: normal: S1, S2 Abnormal Heart Sounds: Absent: systolic murmur, diastolic murmur - Gastrointestinal General gastrointestinal: Present: normal bowel sounds, soft. Absent: dis tended, organomegaly, tenderness - Genitourinary Genitourinary Comment(s): deferred - Integumentary Integumentary: Present: normal turgor. Absent: jaundiced, rash, ulcer - Neurologic Neurologic: Present: CNII-XII intact. Absent: focal deficits - Musculoskeletal Musculoskeletal: Present: gait normal, strength equal bilaterally - Psychiatric Psychiatric: Present: A&O x's 3, appropriate affect, intact judgment & insight Results CBC & Chem 7: 01/14/23 05:05 01/14/23 05:05 Labs: Abnormal Lab Results - Last 24 Hours (Table) 01/14/23 01/14/23 01/14/23 Range/Units 05:05 05:05 05:33 RDW 18.8 H (11.5-15.5) % Basophils # 0.3 H (0-0.2) k/uL Creatinine 0.51 L (0.52-1.04) mg/dL Glucose 147 H (74-99) mg/dL Plasma Lactic Acid Camron 2.5 H* (0.7-2.0) mmol/L AST 41 H (14-36) U/L Serum Alcohol 339 H* mg/dL Thrombosis Risk Factor Assmnt - Choose All That Apply Each Factor Represents 1 point: Abnormal pulmonary function (COPD), Obesity (BMI >25) Each Risk Factor Represents 2 Points: Age 61-74 years Thrombosis Risk Factor Assessment Total Risk Factor Score: 4 Thrombosis Risk Factor Assessment Level: Moderate Risk Assessment and Plan Assessment: 1. Hypoxia/acute exacerbation COPD - Patient has been placed on prednisone 40 mg daily; continue with bronchodilator nebulizer treatments; we will initiate therapy in form of Symbicort twice a day - We will empirically place patient on IV antibiotics 2. Alcohol intoxication with impending withdrawal - Blood alcohol evaluated at 339 - Patient is in place on IV fluids and follow half-normal saline at rate of 13 5 mL an hour; counseling done for stopping substance abuse - Continue vitamin therapy with B12 and folic acid 3. Lactic acidosis; likely related to EtOH intoxication; continue with IV fluid hydration and monitor lactic acid levels 4. Hypertension; metoprolol 50 mg daily; Imdur 30 mg daily 5. Seizure disorder, likely related to alcohol abuse and withdrawal; patient not on an the epileptic therapy 6. EtOH induced liver cirrhosis; we will monitor liver enzymes and order hepatic ultrasound 7. Hyperlipidemia; Lipitor 40 mg by mouth daily at bedtime 8. Coronary artery disease with stent placement; patient remains on aspirin and Brilinta DVT prophylaxis; SCDs CODE STATUS; full code
[2023-01-14] MEDS: SYMBICORT 160-4.5 MCG INHALER INHALATION SCH (20:06)
[2023-01-14] MEDS: BRIMONIDINE TARTRATE 0.2% DROPS 5 ML BTL BOTH EYES SCH (20:41)
[2023-01-14] MEDS: TICAGRELOR 90 MG TAB PO SCH (20:41)
[2023-01-14] MEDS ORDERED: ATORVASTATIN 20 MG TAB PO SCH (21:00)
[2023-01-15] MEDS: HYDROcodone/APAP 7.5-325MG 1 EACH TAB PO PRN ×2 (05:05→10:08)
[2023-01-15] MEDS: SODIUM CHLORIDE 0.9% 1,000 ML IV SCH ×2 (05:38→12:26)
[2023-01-15] MEDS: PANTOPRAZOLE 40 MG TABLET PO SCH (06:46)
[2023-01-15] MEDS: predniSONE 20 MG TAB PO SCH (07:55)
[2023-01-15] MEDS: FOLIC ACID 1 MG TAB PO SCH (07:56)
[2023-01-15] MEDS: TICAGRELOR 90 MG TAB PO SCH (07:56)
[2023-01-15] MEDS: METOPROLOL SUCCINATE (ER) 50 MG TAB.ER.24H PO SCH (07:56)
[2023-01-15] MEDS: BRIMONIDINE TARTRATE 0.2% DROPS 5 ML BTL BOTH EYES SCH (07:56)
[2023-01-15] MEDS: MAGNESIUM OXIDE 400 MG TAB PO SCH (07:56)
[2023-01-15] MEDS: ALBUTEROL HFA INHALER INHALATION SCH ×3 (08:54→16:03)
[2023-01-15] MEDS: SYMBICORT 160-4.5 MCG INHALER INHALATION SCH (08:55)
[2023-01-15] MEDS: TIOTROPIUM 2.5 MCG INHALER INHALATION SCH (08:55)
[2023-01-15] MEDS ORDERED: FOLIC ACID-VIT B COMPLEX-VIT C 1 CAP PO SCH (09:00)
[2023-01-15] MEDS ORDERED: ASPIRIN 81 MG PO SCH (09:00)
[2023-01-15] MEDS ORDERED: FLUTICASONE 50MCG/SPRAY NASAL 16GM EA NOSTRIL SCH (09:00)
[2023-01-15] MEDS ORDERED: ISOSORBIDE MONONITRATE ER 30 MG TAB.ER.24H PO SCH (09:00)
[2023-01-15] MEDS ORDERED: THIAMINE 100 MG TAB PO SCH (09:00)
[2023-01-15 09:06] LABS: Basophils % (A) 1.2 %; Eosinophils # (A) 0.03 X 10*3/uL (0.04-0.35); Eosinophils % (A) 0.3 %; HGB 11.2 g/dL (12.0-15.0); Immature Grans, Automated 0.3 %; Lymphocytes # (A) 1.42 X 10*3/uL (0.90-5.00); Lymphocytes % (A) 16.5 %; MCH 30.2 pg (27.0-32.0); MCHC 31.1 g/dL (32.0-37.0); Mean Platelet Volume 11.3 fL (9.5-12.2); Monocytes # (A) 0.73 X 10*3/uL (0.20-1.00); Monocytes % (A) 8.5 %; NRBC Per 100 WBC 0 /100 WBCS (0.0-0.0); Neutrophils # (A) 6.31 X 10*3/uL (1.80-7.70); Neutrophils % (A) 73.2 %; Platelet Count 159 X 10*3/uL (140-440); RBC 3.71 X 10*6/uL (4.10-5.20); RDW 19.9 % (11.5-14.5); WBC 8.62 X 10*3/uL (4.50-10.00)
[2023-01-15 09:16] LABS: Anion Gap 8.9 mmol/L (10.00-18.00); Blood Urea Nitrogen 9.6 mg/dL (9.0-27.0); Calcium 8.1 mg/dL (8.7-10.3); Carbon Dioxide 25.1 mmol/L (20.0-27.5); Magnesium 1.9 mg/dL (1.5-2.4); Non-African American GFR(CKD) 98.4 (60.0-200.0); Potassium 3.5 mmol/L (3.5-5.5)
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
--- NOTE | 2023-01-15 14:28 | CA ---
Transthoracic Echo Report Name: Anna Marie Valladares Age: 62 Gender: F : 1960 Exam Date: 01/15/2023 13:32 Exam Location: [facility] Ht (in): Wt (lb): Ordering Physician: Gladis Vieyra Attending/Referring Phys: [id number], Chachoy Hand Welt Butter Poppy Valenzuela RDCS Procedure CPT: Indications: LVF Cardiac Hx: Technical Quality: Fair Contrast 1: Total Dose (mL): Contrast 2: Total Dose (mL): MEASUREMENTS (Male / Female) Normal Values 2D ECHO LV Diastolic Diameter PLAX 5.0 cm 4.2 - 5.9 / 3.9 - 5.3 cm LV Systolic Diameter PLAX 3.5 cm IVS Diastolic Thickness 1.2 cm 0.6 - 1.0 / 0.6 - 0.9 cm LVPW Diastolic Thickness 1.1 cm 0.6 - 1.0 / 0.6 - 0.9 cm LV Relative Wall Thickness 0.5 RV Internal Dim ED PLAX 2.3 cm LA Systolic Diameter LX 3.4 cm 3.0 - 4.0 / 2.7 - 3.8 cm LV Diastolic Volume MOD BP 84.6 cm??? 67 - 155 / 56 - 104 cm??? LV Systolic Volume MOD BP 41.1 cm??? 22 - 58 / 19 - 49 cm??? LV Ejection Fraction MOD BP 51.4 % >= 55 % LV Diastolic Volume MOD 4C 80.3 cm??? LV Systolic Volume MOD 4C 37.0 cm??? LV Ejection Fraction MOD 4C 53.9 % LV Diastolic Length 4C 6.8 cm LV Systolic Length 4C 5.9 cm LV Diastolic Volume MOD 2C 81.5 cm??? LV Systolic Volume MOD 2C 43.5 cm??? LV Ejection Fraction MOD 2C 46.6 % LV Diastolic Length 2C 6.1 cm LV Systolic Length 2C 5.4 cm LA Volume 54.3 cm??? 18 - 58 / 22 - 52 cm??? M-MODE Aortic Root Diameter MM 2.6 cm MV E Point Septal Separation 1.2 cm AV Cusp Separation MM 1.8 cm DOPPLER AV Peak Velocity 180.8 cm/s AV Peak Gradient 13.1 mmHg MV Area PHT 4.2 cm??? Mitral E Point Velocity 96.0 cm/s Mitral A Point Velocity 91.7 cm/s Mitral E to A Ratio 1.0 MV Deceleration Time 180.1 ms MV E' Velocity 5.3 cm/s Mitral E to MV E' Ratio 18.3 FINDINGS Left Ventricle Left ventricular ejection fraction is estimated at 55-60 %. Left ventricular cavity size normal. Mildly increased septal wall thickness. Mildly increased posterior wall thickness. No obvious regional wall motion abnormalities. Right Ventricle Normal right ventricular size and function. No TR jet Right Atrium Normal right atrial size. Left Atrium Mildly increased left atrial volume. Mitral Valve Mitral valve thickened. Mild mitral regurgitation. Mitral annular calcification. Aortic Valve Trileaflet aortic valve. No aortic valve stenosis or regurgitation. Tricuspid Valve Structurally normal tricuspid valve. No tricuspid regurgitation. Pulmonic Valve Structurally normal pulmonic valve. Trace to mild pulmonic regurgitation. Pericardium Small pericardial effusion without tamponade. Aorta Normal size aortic root and proximal ascending aorta. CONCLUSIONS Normal left ventricular ejection fraction 55-60% Mild increased left ventricular wall thickness Mild mitral regurgitation Mild mitral anular calcification Small pericardial effusion without tamponade Previewed by: Dr. Aren Alexander DO (Electronically Signed) Final Date: 15 January 2023 14:27
--- NOTE | 2023-01-15 15:32 | US ---
EXAMINATION TYPE: US venous doppler duplex UE LT DATE OF EXAM: 01/15/2023 COMPARISON: NONE CLINICAL HISTORY: Left arm pain. SIDE PERFORMED: Left. TECHNIQUE: Grayscale, color Doppler, spectral Doppler imaging performed of the deep veins of the uppe r extremity. Left Arm: There is normal flow, compressibility and vascular waveforms throughout the left upper extr emity with no evidence of deep venous thrombosis. IMPRESSION: Is no evidence of deep venous thrombosis.
[2023-01-15 16:16] VITALS: BP 137/87; PULSE 85; RESP 17; TEMP 97.6
--- NOTE | 2023-01-16 00:29 | P.DS ---
Providers Date of admission: 01/14/23 07:07 Attending physician: Sammy Amador MD Consults: 01/14/23 21:55 Consult Physician Routine Consulting Provider: Jitendra Rodrigues Consult Reason/Comments: depression , alcohol abuse Do you want consulting provider notified?: Yes, Notify in am 01/15/23 09:29 Consult Physician Routine Consulting Provider: [facility] Consult Reason/Comments: history of stent, leftr arm pain Do you want consulting provider notified?: Yes Primary care physician: [facility] Course: Please note patient was not discharged but left AMA Diagnoses 1. Hypoxia/acute exacerbation COPD - Patient has been placed on prednisone 40 mg daily; continue with bronchodilator nebulizer treatments; we will initiate therapy in form of Symbicort twice a day - We will empirically place patient on IV antibiotics 2. Alcohol intoxication with impending withdrawal - Blood alcohol evaluated at 339 - Patient is in place on IV fluids and follow half-normal saline at rate of 13 5 mL an hour; counseling done for stopping substance abuse - Continue vitamin therapy with B12 and folic acid 3. Lactic acidosis; likely related to EtOH intoxication; continue with IV fluid hydration and monitor lactic acid levels 4. Hypertension; metoprolol 50 mg daily; Imdur 30 mg daily 5. Seizure disorder, likely related to alcohol abuse and withdrawal; patient not on an the epileptic therapy 6. EtOH induced liver cirrhosis; we will monitor liver enzymes and order hepatic ultrasound 7. Hyperlipidemia; Lipitor 40 mg by mouth daily at bedtime 8. Coronary artery disease with stent placement; patient remains on aspirin and Brilinta 9. Left arm pain 1 month, cardiac causes were ruled out Hospital course: 62-year-old woman with history of COPD who presents with complaint that her breathing is worse than usual. Patient reports that there is no power at her home. She states that therefore the temperature is lower than usual and in addition to that she is not able to use her nebulizer so she is having worsening of her respiratory symptoms. She has not noted fever or chills. No chest pain. No productive cough. No change in legs or any swelling. Blood work completed in ED to be revisited 0.4, hemoglobin 13.8 and platelet count of 255, sodium 143, potassium 4.2, BUN/creatinine of 12/0.5 and blood glucose of 147 chest x-ray which I interpreted as not showing infiltrate, pneumothorax, or congestive heart failure. The patient will be admitted to have further treatment for COPD exacerbation. 01/16/2023 I saw the patient today at bedside for source time, she was fully awake and oriented, she has insight into her illness and mentation at baseline. Originally presents with dyspnea and alcohol abuse per documentation, and she was treated with prednisone and CIWA protocol however patient states that she drinks once or twice a week and not every day and currently she is not in withdrawal symptoms. However she is complaining of from left arm pain 1 month, she has history of coronary artery disease and because of this cardiology and psychiatry team evaluated the patient and recommended conservative management, ultrasound of the left arm was negative for the venous thrombosis, Patient however decided to leave AMA. Patient has capacity to make medical decision. Risks and benefits are explained for her in details GENERAL: The patient is alert and oriented x3, not in any acute distress. Well developed, well nourished. HEENT: Pupils are round and equally reacting to light. EOMI. No scleral icterus. No conjunctival pallor. Normocephalic, atraumatic. No pharyngeal erythema. No thyromegaly. CARDIOVASCULAR: S1 and S2 present. No murmurs, rubs, or gallops. PULMONARY: Chest is clear to auscultation, no wheezing or crackles. ABDOMEN: Soft, nontender, nondistended, normoactive bowel sounds. No palpable organomegaly. MUSCULOSKELETAL: No joint swelling or deformity. EXTREMITIES: No cyanosis, clubbing, or pedal edema. NEUROLOGICAL: Gross neurological examination did not reveal any focal deficits. SKIN: No rashes. no petechiae. Patient Condition at Discharge: Fair Plan - Discharge Summary Discharge Rx Participant: No New Discharge Prescriptions: No Action RX: Aspirin EC [Ecotrin Low Dose] 81 mg PO DAILY RX: Pantoprazole [Protonix] 40 mg PO DAILY RX: Folic Acid 1 mg PO DAILY #30 tab RX: Vitamin B Complex 1 cap PO DAILY RX: Nitroglycerin Sl Tabs [Nitrostat] 0.4 mg SUBLINGUAL Q5M PRN #30 tab PRN Reason: Chest Pain Brimonidine Tartrate [Alphagan P 0.2% Ophth Soln] 1 drop BOTH EYES BID Budesonide-Formot 160-4.5 Mcg [Symbicort 160-4.5 Mcg Inhaler] 2 puff INHALATION RT-BID Ticagrelor [Brilinta] 90 mg PO BID RX: Metoprolol Succinate (ER) [Toprol XL] 50 mg PO DAILY RX: Fluticasone Nasal [place] [Flonase Nasal [place]] 1 spr EA NOSTRIL DAILY RX: Magnesium Oxide 400 mg PO DAILY RX: Ondansetron Odt [Zofran ODT] 4 mg PO Q8HR PRN #20 tab PRN Reason: Nausea RX: Simvastatin [Zocor] 40 mg PO HS RX: Cyclobenzaprine [Flexeril] 10 mg PO TID PRN #20 tab PRN Reason: Pain Isosorbide Mononitrate ER [Imdur] 30 mg PO DAILY chlordiazePOXIDE HCl [Librium] 25 mg PO TID PRN PRN Reason: anxiety/alcohol withdrawal HYDROcodone/APAP 7.5-325MG [[place] 7.5-325] 1 tab PO Q6H PRN PRN Reason: Pain Ketorolac [Toradol] 10 mg PO Q8H PRN PRN Reason: Pain Discharge Medication List RX: Aspirin EC [Ecotrin Low Dose] 81 mg PO DAILY 02/11/19 [History] RX: Metoprolol Succinate (ER) [Toprol XL] 50 mg PO DAILY 06/13/21 [History] RX: Pantoprazole [Protonix] 40 mg PO DAILY 06/13/21 [History] RX: Fluticasone Nasal [place] [Flonase Nasal [place]] 1 spr EA NOSTRIL DAILY 02/14/22 [History] RX: Magnesium Oxide 400 mg PO DAILY 02/14/22 [History] RX: Folic Acid 1 mg PO DAILY #30 tab 06/13/22 [Rx] RX: Ondansetron Odt [Zofran ODT] 4 mg PO Q8HR PRN #20 tab 06/13/22 [Rx] RX: Simvastatin [Zocor] 40 mg PO HS 07/03/22 [History] RX: Vitamin B Complex 1 cap PO DAILY 07/03/22 [History] RX: Cyclobenzaprine [Flexeril] 10 mg PO TID PRN #20 tab 07/17/22 [Rx] RX: Nitroglycerin Sl Tabs [Nitrostat] 0.4 mg SUBLINGUAL Q5M PRN #30 tab 08/08/22 [Rx] Brimonidine Tartrate [Alphagan P 0.2% Ophth Soln] 1 drop BOTH EYES BID 11/10/22 [History] Budesonide-Formot 160-4.5 Mcg [Symbicort 160-4.5 Mcg Inhaler] 2 puff INHALATION RT-BID 11/10/22 [History] HYDROcodone/APAP 7.5-325MG [[place] 7.5-325] 1 tab PO Q6H PRN 11/10/22 [History] Isosorbide Mononitrate ER [Imdur] 30 mg PO DAILY 11/10/22 [History] Ketorolac [Toradol] 10 mg PO Q8H PRN 11/10/22 [History] chlordiazePOXIDE HCl [Librium] 25 mg PO TID PRN 11/10/22 [History] Ticagrelor [Brilinta] 90 mg PO BID 01/14/23 [History] Follow up Appointment(s)/Referral(s): Miya Johnson MD [Primary Care Provider] - 1-2 days Discharge Disposition: Left Against Medical Advice
== END 2023-01-15 17:47 | disposition left against medical advice (07) ==
LOC: EC 04:45 → INTOOBSV 07:07 → 4SSUR 07:07 → UNDODISIN 01-15 17:47
PROVIDERS: ADMIT Internal Medicine; ATTEND Internal Medicine
DX: J44.1 Chronic obstructive pulmonary disease with (acute) exacerbation (principal); F10.120 Alcohol abuse with intoxication, uncomplicated; F41.9 Anxiety disorder, unspecified; F32.A Depression, unspecified; I25.10 Atherosclerotic heart disease of native coronary artery without angina pectoris; I25.82 Chronic total occlusion of coronary artery; I25.2 Old myocardial infarction; G40.909 Epilepsy, unspecified, not intractable, without status epilepticus; I69.351 Hemiplegia and hemiparesis following cerebral infarction affecting right dominant side; D64.9 Anemia, unspecified; K58.9 Irritable bowel syndrome, unspecified; H26.9 Unspecified cataract; F17.200 Nicotine dependence, unspecified, uncomplicated; R13.10 Dysphagia, unspecified; I11.9 Hypertensive heart disease without heart failure; M51.36 Other intervertebral disc degeneration, lumbar region; K70.30 Alcoholic cirrhosis of liver without ascites; I31.39 Other pericardial effusion (noninflammatory); E78.5 Hyperlipidemia, unspecified; I34.0 Nonrheumatic mitral (valve) insufficiency; I37.1 Nonrheumatic pulmonary valve insufficiency; M79.602 Pain in left arm; E87.20 Acidosis, unspecified; Z79.82 Long term (current) use of aspirin; Z79.899 Other long term (current) drug therapy; Z91.040 Latex allergy status; Z88.5 Allergy status to narcotic agent; Z88.7 Allergy status to serum and vaccine; Z90.49 Acquired absence of other specified parts of digestive tract; Z82.49 Family history of ischemic heart disease and other diseases of the circulatory system; Z80.1 Family history of malignant neoplasm of trachea, bronchus and lung; Z82.5 Family history of asthma and other chronic lower respiratory diseases; Z81.1 Family history of alcohol abuse and dependence; Z20.822 Contact with and (suspected) exposure to COVID-19; Z95.5 Presence of coronary angioplasty implant and graft; Z53.29 Procedure and treatment not carried out because of patient's decision for other reasons; Y90.8 Blood alcohol level of 240 mg/100 ml or more
CPT/HCPCS: 96361; 96374; 99285; 36415; 94640 ×4; 94760; 93005; 93306; 97162; 97166; 85379; 83880; 80053; 80048; 83605 ×2; 83735 ×2; 84484; 85025 ×2; 85610; 85730; 84145; 87635; 71046; 93971; G0378 ×2; G0480; J2060; J7512 ×2; 80320

== ENCOUNTER 2023-01-20 12:14 | Inpatient (IN) | payer OTHER ==
--- NOTE | 2023-01-20 12:36 | ED ---
Psych HPI - General Chief Complaint: Psychiatric Symptoms Stated Complaint: mental health Time Seen by Provider: 01/20/23 12:14 Source: patient, EMS, RN notes reviewed, old records reviewed Mode of arrival: EMS - History of Present Illness Initial Comments: 62-year-old female history chronic back pain from a fall over 6 years ago who is here today by EMS with complaints of feeling suicidal and depressed and she also admits to drinking alcohol this morning. She can't take it anymore because of the pain she has considered suicide though she does not seem to have a plan at this time. Denies any headache blurry vision loss of function to her upper or lower extremities. She was recently admitted to this facility for COPD exacerbation and alcohol intoxication .No other current complaints or modifying factors MD Complaint: suicidal ideation, feels depressed, other - Related Data Home Medications Medication Instructions Recorded Confirmed Aspirin EC [Ecotrin Low Dose] 81 mg PO DAILY 02/11/19 01/14/23 Metoprolol Succinate (ER) [Toprol 50 mg PO DAILY 06/13/21 01/14/23 XL] Pantoprazole [Protonix] 40 mg PO DAILY 06/13/21 01/14/23 Fluticasone Nasal [place] [Flonase 1 spr EA NOSTRIL DAILY 02/14/22 01/14/23 Nasal [place]] Magnesium Oxide 400 mg PO DAILY 02/14/22 01/14/23 Simvastatin [Zocor] 40 mg PO HS 07/03/22 01/14/23 Vitamin B Complex 1 cap PO DAILY 07/03/22 01/14/23 Brimonidine Tartrate [Alphagan P 1 drop BOTH EYES BID 11/10/22 01/14/23 0.2% Ophth Soln] Budesonide-Formot 160-4.5 Mcg 2 puff INHALATION RT-BID 11/10/22 01/14/23 [Symbicort 160-4.5 Mcg Inhaler] HYDROcodone/APAP 7.5-325MG [[place] 1 tab PO Q6H PRN 11/10/22 01/14/23 7.5-325] Isosorbide Mononitrate ER [Imdur] 30 mg PO DAILY 11/10/22 01/14/23 Ketorolac [Toradol] 10 mg PO Q8H PRN 11/10/22 01/14/23 chlordiazePOXIDE HCl [Librium] 25 mg PO TID PRN 11/10/22 01/14/23 Ticagrelor [Brilinta] 90 mg PO BID 01/14/23 01/14/23 Previous Rx's Medication Instructions Recorded Folic Acid 1 mg PO DAILY #30 tab 06/13/22 Ondansetron Odt [Zofran ODT] 4 mg PO Q8HR PRN #20 tab 06/13/22 Cyclobenzaprine [Flexeril] 10 mg PO TID PRN #20 tab 07/17/22 Nitroglycerin Sl Tabs [Nitrostat] 0.4 mg SUBLINGUAL Q5M PRN #30 tab 08/08/22 Allergies Allergy/AdvReac Type Severity Reaction Status Date / Time latex Allergy Rash/Hives Verified 01/20/23 12:28 tomato Allergy Diarrhea Verified 01/20/23 12:28 Influenza Virus Vaccines AdvReac Nausea & Verified 01/20/23 12:28 Vomiting morphine AdvReac Nausea & Verified 01/20/23 12:28 Vomiting Review of Systems ROS Statement: Those systems with pertinent positive or pertinent negative responses have been documented in the HPI. ROS Other: All systems not noted in ROS Statement are negative. Past Medical History Past Medical History: Asthma, Coronary Artery Disease (CAD), COPD, CVA/TIA, Eye Disorder, Hypertension, Liver Disease, Myocardial Infarction (AR), Seizure Disorder, Vascular Disorder Additional Past Medical History / Comment(s): Pt recently admitted to [facility] for diarrhea, ETOH abuse. 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 soon Last Myocardial Infarction Date:: aug 2018 History of Any Multi-Drug Resistant Organisms: None Reported Past Surgical History: Cholecystectomy, Heart Catheterization, Orthopedic Surgery Additional Past Surgical History / Comment(s): L caratid stent, bilateral knee surgeries for tendon repair, bartholian cyst removed bilateral wrists Past Anesthesia/Blood Transfusion Reactions: Motion Sickness Additional Past Anesthesia/Blood Transfusion Reaction / Comment(s): Pt has received blood without reaction. Past Psychological History: Anxiety, Depression Smoking Status: Current every day smoker Past Alcohol Use History: Daily, Heavy Past Drug Use History: Marijuana - Past Family History Mother Family Medical History: Cancer, Congestive Heart Failure (CHF), Coronary Artery Disease (CAD), Hyperlipidemia Additional Family Medical History / Comment(s): Mother at age 85 from lung cancer. Father Family Medical History: Cancer, COPD Additional Family Medical History / Comment(s): Father at age 63 from lung cancer. Brother(s) Additional Family Medical History / Comment(s): Patient has a total of 7 siblings. 5 are alive without any major medical problems she is aware of. 2 siblings have one from alcohol abuse and 1. Coronary artery disease. Daughter(s) Additional Family Medical History / Comment(s): Patient has one daughter with no major medical problems. General Exam - General Exam Comments Initial Comments: This is a well-developed well-nourished awake alert oriented 4 female with a smell of alcohol conjoiners on her breath Limitations: no limitations General appearance: alert, appears intoxicated, anxious Head exam: Present: atraumatic, normocephalic, normal inspection Eye exam: Present: normal appearance, PERRL, EOMI. Absent: scleral icterus, conjunctival injection, periorbital swelling ENT exam: Present: mucous membranes dry Neck exam: Present: normal inspection. Absent: tenderness, meningismus, lymphadenopathy Respiratory exam: Present: normal lung sounds bilaterally. Absent: respiratory distress, wheezes, rales, rhonchi, stridor Cardiovascular Exam: Present: normal rhythm, tachycardia, normal heart sounds. Absent: systolic murmur, diastolic murmur, rubs, gallop, clicks GI/Abdominal exam: Present: soft, normal bowel sounds. Absent: distended, tenderness, guarding, rebound, rigid Extremities exam: Present: full ROM, normal capillary refill, other (Multiple bruises from previous IV starts in attempts). Absent: tenderness, pedal edema, joint swelling, calf tenderness Back exam: Present: normal inspection Neurological exam: Present: alert, oriented X3, CN II-XII intact Psychiatric exam: Present: depressed, anxious, manic, suicidal ideation Skin exam: Present: warm, dry, intact, other (As above). Absent: rash Course Vital Signs 01/20/23 12:16 Temperature 97.9 F Pulse Rate 103 H Respiratory 22 Rate Blood Pressure 115/82 O2 Sat by Pulse 98 Oximetry Medical Decision Making - Medical Decision Making I did discuss findings with patient patient does demonstrate evidence of alcohol intoxication with a level of 285 also depressed and suicidal. She does have chronic back pain. Case is to be discussed with Dr. Amador. Was pt. sent in by a medical professional or institution (YESSY Lloyd, SET ILLUSTRATOR, urgent care, hospital, or shelter...) When possible be specific @ -No Did you speak to anyone other than the patient for history (EMS, parent, family, police, friend...)? What history was obtained from this source @ -EMS Did you review nursing and triage notes (agree or disagree)? Why? @ -I reviewed and agree with nursing and triage notes Were old charts reviewed (outside hosp., previous admission, EMS record, old EKG , old radiological studies, urgent care reports/EKG's, shelter records)? Report findings @ - old charts were reviewed Differential Diagnosis (chest pain, altered mental status, abdominal pain women, abdominal pain men, vaginal bleeding, weakness, fever, dyspnea, syncope, headache, dizziness, GI bleed, back pain, seizure, CVA, palpatations, mental health, musculoskeletal)? @ -not applicable EKG interpreted by me (3pts min.). @ -Not done X-rays interpreted by me (1pt min.). @ -None done CT interpreted by me (1pt min.). @ -None done U/S interpreted by me (1pt. min.). @ -None done What testing was considered but not performed or refused? (CT, X-rays, U/S, labs)? Why? @ -None What meds were considered but not given or refused? Why? @ -None Did you discuss the management of the patient with other professionals (professionals i.e. YESSY Lloyd, SET ILLUSTRATOR, lab, RT, psych nurse, high school social science teacher, electrician aircraft, teacher, commanding officer homicide squad, casework specialist)? Give summary @ -Dr. amador Was smoking cessation discussed for >3mins.? @ -No Was critical care preformed (if so, how long)? @ -No Were there social determinants of health that impacted care today? How? (Homelessness, low income, unemployed, alcoholism, drug addiction, transportation, low edu. Level, literacy, decrease access to med. care, snf, rehab)? @ -Alcoholism Was there de-escalation of care discussed even if they declined (Discuss DNR or withdrawal of care, Hospice)? DNR status @ -No What co-morbidities impacted this encounter? (DM, HTN, Smoking, COPD, CAD, Cancer, CVA, ARF, Chemo, Hep., AIDS, mental health diagnosis, sleep apnea, morbid obesity)? @ -COPD, CHF, alcoholism, chronic back pain Was patient admitted / discharged? Hospital course, mention meds given and route, prescriptions, significant lab abnormalities, going to OR and other pertinent info. @ -hospital course : The patient was admitted for inpatient evaluation and treatment of alcohol intoxication and depression with suicidal ideation and chronic back pain. Undiagnosed new problem with uncertain prognosis? @ -No Drug Therapy requiring intensive monitoring for toxicity (Heparin, Nitro, Insulin, Cardizem)? @ -No Were any procedures done? @ -No Diagnosis/symptom? @ -Alcohol intoxication, depression, suicidal ideation, chronic back pain Acute, or Chronic, or Acute on Chronic? @ -Acute on chronic Uncomplicated (without systemic symptoms) or Complicated (systemic symptoms)? @ -default Side effects of treatment? @ -No Exacerbation, Progression, or Severe Exacerbation? @ -No Poses a threat to life or bodily function? How? (Chest pain, USA, AR, pneumonia, PE, COPD, DKA, ARF, appy, cholecystitis, CVA, Diverticulitis, Homicidal, Suicidal, threat to staff... and all critical care pts) @ -No - Lab Data Result diagrams: 01/20/23 12:33 01/20/23 12:33 Lab Results 01/20/23 01/20/23 01/20/23 Range/Units 12:33 12:33 12:33 WBC 13.9 H (3.8-10.6) k/uL RBC 4.23 (3.80-5.40) m/uL Hgb 13.0 (11.4-16.0) gm/dL Hct 40.0 (34.0-46.0) % MCV 94.6 (80.0-100.0) fL MCH 30.6 (25.0-35.0) pg MCHC 32.4 (31.0-37.0) g/dL RDW 18.3 H (11.5-15.5) % Plt Count 239 (150-450) k/uL MPV 7.8 Neutrophils % 69 % Lymphocytes % 20 % Monocytes % 5 % Eosinophils % 1 % Basophils % 1 % Neutrophils # 9.5 H (1.3-7.7) k/uL Lymphocytes # 2.8 (1.0-4.8) k/uL Monocytes # 0.7 (0-1.0) k/uL Eosinophils # 0.1 (0-0.7) k/uL Basophils # 0.2 (0-0.2) k/uL Anisocytosis Slight Sodium 138 (137-145) mmol/L Potassium 5.0 (3.5-5.1) mmol/L Chloride 102 (98-107) mmol/L Carbon Dioxide 25 (22-30) mmol/L Anion Gap 11 mmol/L BUN 10 (7-17) mg/dL Creatinine 0.55 (0.52-1.04) mg/dL Est GFR (CKD-EPI)AfAm >90 (>60 ml/min/1.73 sqM) Est GFR (CKD-EPI)NonAf >90 (>60 ml/min/1.73 sqM) Glucose 118 H (74-99) mg/dL Plasma Lactic Acid Camron 3.4 H* (0.7-2.0) mmol/L Calcium 7.8 L (8.4-10.2) mg/dL Total Bilirubin 0.5 (0.2-1.3) mg/dL AST 63 H (14-36) U/L ALT 46 H (4-34) U/L Alkaline Phosphatase 107 (38-126) U/L Ammonia <9 (<30) umol/L Creatine Kinase 66 (30-135) U/L Total Protein 6.4 (6.3-8.2) g/dL Albumin 3.7 (3.5-5.0) g/dL Lipase 48 (23-300) U/L Salicylates <1.0 mg/dL Acetaminophen <10.0 ug/mL Serum Alcohol 285 H* mg/dL Disposition Clinical Impression: Depression, Suicidal ideation, Alcohol intoxication, Chronic back pain Disposition: ADMITTED IP TO THIS [facility] Condition: Fair Referrals: Miya Johnson MD [Primary Care Provider] - 1-2 days Decision Date: 01/20/23 Decision Time: 14:25
[2023-01-20 13:23] LABS: Anisocytosis Slight; Basophils # (A) 0.2 k/uL (0-0.2); Basophils % (A) 1 %; Eosinophils # (A) 0.1 k/uL (0-0.7); Eosinophils % (A) 1 %; Lymphocytes # (A) 2.8 k/uL (1.0-4.8); Lymphocytes % (A) 20 %; MCH 30.6 pg (25.0-35.0); MCHC 32.4 g/dL (31.0-37.0); MCV 94.6 fL (80.0-100.0); Mean Platelet Volume 7.8; Monocytes # (A) 0.7 k/uL (0-1.0); Monocytes % (A) 5 %; Neutrophils # (A) 9.5 k/uL (1.3-7.7); Neutrophils % (A) 69 %; Platelet Count 239 k/uL (150-450); RBC 4.23 m/uL (3.80-5.40); RDW 18.3 % (11.5-15.5); WBC 13.9 k/uL (3.8-10.6)
[2023-01-20 13:34] LABS: Lactic Acid, Venous 3.4 mmol/L (0.7-2.0)
[2023-01-20 13:36] LABS: ALT 46 U/L (4-34); Acetaminophen <10.0 ug/mL; African American GFR (CKD) >90 (>60 ml/min/1.73 sqM); Albumin 3.7 g/dL (3.5-5.0); Anion Gap 11 mmol/L; Blood Urea Nitrogen 10 mg/dL (7-17); Calcium 7.8 mg/dL (8.4-10.2); Carbon Dioxide 25 mmol/L (22-30); Chloride 102 mmol/L (98-107); Creatine Kinase 66 U/L (30-135); Glucose 118 mg/dL (74-99); Lipase 48 U/L (23-300); Non-African American GFR(CKD) >90 (>60 ml/min/1.73 sqM); Salicylate <1.0 mg/dL; Sodium 138 mmol/L (137-145); Total Bilirubin 0.5 mg/dL (0.2-1.3); Total Protein 6.4 g/dL (6.3-8.2)
[2023-01-20] MEDS ORDERED: SODIUM CHLORIDE 0.9% 1,000 ML IV STA (13:36)
[2023-01-20] MEDS ORDERED: LORazepam 2 MG/ML INJ IV STA (13:37)
[2023-01-20 13:38] LABS: Alcohol 285 mg/dL
[2023-01-20 13:39] LABS: AST 63 U/L (14-36); Alkaline Phosphatase 107 U/L (38-126)
[2023-01-20] MEDS ORDERED: NALOXONE 0.4 MG/ML 1 ML VIAL IV PRN (14:28)
[2023-01-20] MEDS ORDERED: NON FORMULARY DRUG (Ketorolac 10 MG Tab) PO PRN (14:32)
[2023-01-20] MEDS ORDERED: NITROGLYCERIN SL TABS 0.4 MG TAB SUBLINGUAL PRN (14:32)
[2023-01-20] MEDS ORDERED: ONDANSETRON ODT 4 MG TAB PO PRN (14:32)
[2023-01-20] MEDS ORDERED: chlordiazePOXIDE 25 MG CAP PO PRN (14:32)
[2023-01-20 15:17] LABS: Amphetamine Screen,Urine Not Detected (NotDetected); Benzodiazepines Screen,Urine Detected (NotDetected); Cocaine Screen,Urine Not Detected (NotDetected); Opiate Screen,Urine Not Detected (NotDetected); Phencyclidine Screen,Urine Not Detected (NotDetected); Urn Cannabinoid Scrn Not Detected (NotDetected)
[2023-01-20 15:18] LABS: Barbiturate Screen,Urine Not Detected (NotDetected); Methadone Screen, Urine Not Detected (NotDetected); Oxycodone Screen, Urine Not Detected (NotDetected); Tricyclic Antidepressant,Urine Not Detected (NotDetected)
--- NOTE | 2023-01-20 15:28 | XR ---
Lumbar spine HISTORY: Chronic back pain. COMPARISON: CT lumbar spine dated 12/26/2022 and lumbar spine radiograph dated 07/17/2022. TECHNIQUE: 5 views lumbar spine were obtained. FINDINGS: There are mild chronic compression fractures of L4 and L1. There is mild degenerative disc disease throughout the lumbar region from L1 to L5 with mild disc spa ce narrowing and spondylosis. The L5-S1 disc spaces is well-maintained in height. There is no spondylolysis. There is diffuse calcification of the abdominal aorta without evidence of aneurysm. The sacrum and SI joints are intact. IMPRESSION: 1. Chronic mild compression fractures L1 and L4. 2. Mild degenerative disc disease from L1 through L5 3. No acute changes compared to previous.
[2023-01-20] MEDS: SODIUM CHLORIDE 0.9% 1,000 ML IV SCH (15:34)
[2023-01-20] MEDS ORDERED: ALBUTEROL NEBULIZED 2.5 MG/3 ML INHALATION PRN (16:42)
[2023-01-20] MEDS ORDERED: LORazepam 0.5 MG TAB PO PRN (16:52)
[2023-01-20] MEDS ORDERED: LORazepam 1 MG TAB PO PRN ×4 (16:52)
--- NOTE | 2023-01-20 16:52 | P.HPIM ---
History of Present Illness This is a pleasant 62 years old female with multiple medical problems including Asthma, Coronary Artery Disease , COPD, CVA/TIA, , Hypertension, Liver Disease, Seizure Disorder, ETOH abuse. 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 s/p Cholecystectomy, Anxiety, Depression, Current every day smoker Patient says that she came to the hospital because suicidal thoughts. She knows she is in regular in hospital, she notices the year to be 2021 and it is December, she could not tell the name of the president because it is the first time came across her mind that she needs to give up and common suicide, but then she decided to come to emergency room right than committing suicide. She said that she has no history of depression and she does not take medication and she does not follow with psychiatrist. She smokes about 1 pack per day and she was counseled to quit and she agrees to the nicotine patch. She drinks whiskey, she stated that she drinks most of the time every day and she confirms that she was drinking the whole last 7 days. Today she states she took 4 shots of whiskey however she may be drinking more than that but she could not elaborate. And she has medical marijuana but she doesn't like it. She stated that she decided to commit suicide because she could not tolerate her low back pain which he has for 6 years Also patient noticed that her right leg has been weak but she says that is been going on for about 6 years Vitals are stable, patient is mildly tachycardic and tachypneic Labs showing mild leukocytosis of 13.9 BMP is unremarkable. Lactic acid elevated at 3.4. Liver enzymes mildly elevated. Lipase normal. Urine drug screen is positive for benzodiazepines. Serum alcohol is elevated to 85. Lumbar x-ray showing chronic mild compression fractures L1 and L4, mild degenerative disc disease from L1 through L5 and no acute changes compared to previous In the emergency room she was started on normal saline at 134 short time. Also she was resumed her home medication of [place] 7.5 mg. She denies any GI or urinary issue, no abdominal pain vomiting or diarrhea, no urgency or dysuria. She denies headache or dizziness although she feels sleepy and tired from drinking alcohol. She denies new weakness or numbness Review of Systems Review of systems CONSTITUTIONAL: No fever, no malaise, no fatigue. HEENT: No recent visual problems or hearing problems. Denied any sore throat. CARDIOVASCULAR: No orthopnea, PND, no palpitations, no syncope. PULMONARY: No chest pain, no cough, no hemoptysis. GASTROINTESTINAL: No diarrhea, no nausea, no vomiting, no abdominal pain. Normoactive bowel sounds. NEUROLOGICAL: No headaches, no new weakness, no numbness. HEMATOLOGICAL: Denies any bleeding or petechiae. GENITOURINARY: Denies any burning micturition, frequency, or urgency. MUSCULOSKELETAL/RHEUMATOLOGICAL: Denies any joint pain, swelling, or any muscle pain. ENDOCRINE: Denies any polyuria or polydipsia. Past Medical History Past Medical History: Asthma, Coronary Artery Disease (CAD), COPD, CVA/TIA, Eye Disorder, Hypertension, Liver Disease, Myocardial Infarction ([place]), Seizure Disorder, Vascular Disorder Additional Past Medical History / Comment(s): Pt recently admitted to [facility] for diarrhea, ETOH abuse. 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 soon Last Myocardial Infarction Date:: aug 2018 History of Any Multi-Drug Resistant Organisms: None Reported Past Surgical History: Cholecystectomy, Heart Catheterization, Orthopedic Surgery Additional Past Surgical History / Comment(s): L caratid stent, bilateral knee surgeries for tendon repair, bartholian cyst removed bilateral wrists Past Anesthesia/Blood Transfusion Reactions: Motion Sickness Additional Past Anesthesia/Blood Transfusion Reaction / Comment(s): Pt has received blood without reaction. Past Psychological History: Anxiety, Depression Smoking Status: Current every day smoker Past Alcohol Use History: Daily, Heavy Past Drug Use History: Marijuana - Past Family History Mother Family Medical History: Cancer, Congestive Heart Failure (CHF), Coronary Artery Disease (CAD), Hyperlipidemia Additional Family Medical History / Comment(s): Mother at age 85 from lung cancer. Father Family Medical History: Cancer, COPD Additional Family Medical History / Comment(s): Father at age 63 from lung cancer. Brother(s) Additional Family Medical History / Comment(s): Patient has a total of 7 siblings. 5 are alive without any major medical problems she is aware of. 2 siblings have one from alcohol abuse and 1. Coronary artery disease. Daughter(s) Additional Family Medical History / Comment(s): Patient has one daughter with no major medical problems. Medications and Allergies Home Medications Medication Instructions Recorded Confirmed Type Aspirin EC [Ecotrin Low Dose] 81 mg PO DAILY 02/11/19 01/20/23 History Metoprolol Succinate (ER) [Toprol 50 mg PO DAILY 06/13/21 01/20/23 History XL] Pantoprazole [Protonix] 40 mg PO DAILY 06/13/21 01/20/23 History Fluticasone Nasal [place] [Flonase 1 spr EA NOSTRIL DAILY 02/14/22 01/20/23 History Nasal [place]] Magnesium Oxide 400 mg PO DAILY 02/14/22 01/20/23 History Folic Acid 1 mg PO DAILY #30 tab 06/13/22 01/20/23 Rx Ondansetron Odt [Zofran ODT] 4 mg PO Q8HR PRN #20 tab 06/13/22 01/20/23 Rx Simvastatin [Zocor] 40 mg PO HS 07/03/22 01/20/23 History Vitamin B Complex 1 cap PO DAILY 07/03/22 01/20/23 History Cyclobenzaprine [Flexeril] 10 mg PO TID PRN #20 tab 07/17/22 01/20/23 Rx Nitroglycerin Sl Tabs [Nitrostat] 0.4 mg SUBLINGUAL Q5M PRN #30 tab 08/08/22 01/20/23 Rx Brimonidine Tartrate [[place]ph[place] P 1 drop BOTH EYES BID 11/10/22 01/20/23 History 0.2% Ophth Soln] Budesonide-Formot 160-4.5 Mcg 2 puff INHALATION RT-BID 11/10/22 01/20/23 History [Symbicort 160-4.5 Mcg Inhaler] HYDROcodone/APAP 7.5-325MG [[place] 1 tab PO Q6H PRN 12/30/22 03/11/23 History 7.5-325] Isosorbide Mononitrate ER [Imdur] 30 mg PO DAILY 11/10/22 01/20/23 History Ketorolac [Toradol] 10 mg PO Q8H PRN 11/10/22 01/20/23 History chlordiazePOXIDE HCl [Librium] 25 mg PO TID PRN 11/10/22 01/20/23 History Ticagrelor [Brilinta] 90 mg PO BID 01/14/23 01/20/23 History Allergies Allergy/AdvReac Type Severity Reaction Status Date / Time latex Allergy Rash/Hives Verified 01/20/23 12:28 tomato Allergy Diarrhea Verified 01/20/23 12:28 Influenza Virus Vaccines AdvReac Nausea & Verified 01/20/23 12:28 Vomiting morphine AdvReac Nausea & Verified 01/20/23 12:28 Vomiting Physical Exam Vitals: Vital Signs Temp Pulse Resp BP Pulse Ox 01/20/23 12:16 97.9 F 103 H 22 115/82 98 Intake and Output 01/20/23 01/20/23 01/20/23 06:59 14:59 22:59 Other: Weight 81.647 kg -GENERAL: The patient is alert and oriented x1-2 partially, not in any acute distress. Well developed, well nourished. HEENT: Pupils are round and equally reacting to light. EOMI. No scleral icterus. No conjunctival pallor. Normocephalic, atraumatic. No pharyngeal erythema. No thyromegaly. CARDIOVASCULAR: S1 and S2 present. No murmurs, rubs, or gallops. PULMONARY: Chest is clear to auscultation, no wheezing or crackles. -ABDOMEN: Soft, nontender, distended, normoactive bowel sounds. No palpable org anomegaly. MUSCULOSKELETAL: No joint swelling or deformity. EXTREMITIES: No cyanosis, clubbing, or pedal edema. NEUROLOGICAL: Cranial nerves are grossly intact, motor: Right leg is weak/5 while rest of extremities is 5/5. Sensation intact. SKIN: No rashes. no petechiae. Results CBC & Chem 7: 01/20/23 12:33 01/20/23 12:33 Labs: Abnormal Lab Results - Last 24 Hours (Table) 01/20/23 01/20/23 01/20/23 Range/Units 12:33 12:33 12:33 WBC 13.9 H (3.8-10.6) k/uL RDW 18.3 H (11.5-15.5) % Neutrophils # 9.5 H (1.3-7.7) k/uL Glucose 118 H (74-99) mg/dL Plasma Lactic Acid [place] (0.7-2.0) mmol/L Calcium 7.8 L (8.4-10.2) mg/dL AST 63 H (14-36) U/L ALT 46 H (4-34) U/L U Benzodiazepines Scrn Detected H (NotDetected) Serum Alcohol 285 H* mg/dL 01/20/23 Range/Units 12:33 WBC (3.8-10.6) k/uL RDW (11.5-15.5) % Neutrophils # (1.3-7.7) k/uL Glucose (74-99) mg/dL Plasma Lactic Acid [place] 3.4 H* (0.7-2.0) mmol/L Calcium (8.4-10.2) mg/dL AST (14-36) U/L ALT (4-34) U/L U Benzodiazepines Scrn (NotDetected) Serum Alcohol mg/dL Assessment and Plan Assessment: Depression and suicidal ideation Alcohol abuse at-risk of alcohol withdrawal Acute on chronic low back pain, with lumbar x-ray showing chronic fracture of L1 and L4 with no acute changes Mild transaminitis with AST more than ALT metabolic/toxic encephalopathy History of stroke with right hemiparesis, chronic (patient states is been for 6 years) COPD with mild acute exacerbation History of coronary artery disease Hypertension History of seizure History of alcoholic liver cirrhosis and ascites status post paracentesis History of falls Irritable bowel syndrome Chronic back pain Degenerative disc disease History of vertebral fractures from falls Plan: Continuous sitter at bedside Suicidal precautions Patient cannot leave AMA total evaluated by psychiatrist, if she tries to leave him and she needs to be petitioned Continue with CIWA protocol Continue with thiamine Her mentation abnormality most likely secondary to alcohol effect, which is mild but if no improvement or worsens then we'll consider further workup Check chest x-ray Continue with inhaled steroids Labs and medication were reviewed.. Continue same treatment. Continue with symptomatic treatment. Resume home medication. Monitor labs and vitals. DVT and GI prophylaxis. Further recommendations as per clinical course of the patient DVT prophylaxis: Subcutaneous heparin GI Prophylaxis: Pepcid PT/OT: Pending Prognosis is guarded
--- NOTE | 2023-01-20 16:52 | XR ---
EXAMINATION TYPE: XR chest 2V DATE OF EXAM: 01/20/2023 COMPARISON: 01/14/2023 HISTORY: Shortness of breath TECHNIQUE: Frontal and lateral views of the chest are obtained. FINDINGS: There is no focal air space opacity, pleural effusion, or pneumothorax seen. The cardiac silhouette size is within normal limits. The osseous structures are intact. IMPRESSION: No acute cardiopulmonary process.
[2023-01-20] MEDS: NICOTINE 21MG/24HR PATCH TRANSDERM SCH (17:41)
[2023-01-20] MEDS: HYDROcodone/APAP 7.5-325MG 1 EACH TAB PO PRN (18:07)
[2023-01-20] MEDS: SYMBICORT 160-4.5 MCG INHALER INHALATION SCH (20:07)
[2023-01-20] MEDS: BRIMONIDINE TARTRATE 0.2% DROPS 5 ML BTL BOTH EYES SCH (21:07)
[2023-01-20] MEDS: TICAGRELOR 90 MG TAB PO SCH (21:07)
[2023-01-20] MEDS: ATORVASTATIN 20 MG TAB PO SCH (21:08)
[2023-01-20] MEDS: CYCLOBENZAPRINE 10 MG TAB PO PRN (21:15)
[2023-01-20] MEDS: ALBUTEROL HFA INHALER INHALATION PRN (22:20)
[2023-01-21] MEDS: SODIUM CHLORIDE 0.9% 1,000 ML IV SCH ×4 (01:00→19:38)
[2023-01-21] MEDS: HYDROcodone/APAP 7.5-325MG 1 EACH TAB PO PRN ×3 (01:10→15:09)
[2023-01-21] MEDS: ALBUTEROL HFA INHALER INHALATION PRN ×2 (07:44→19:37)
[2023-01-21] MEDS: SYMBICORT 160-4.5 MCG INHALER INHALATION SCH ×2 (07:44→19:37)
[2023-01-21 08:56] LABS: Basophils # (A) 0.09 X 10*3/uL (0.00-0.10); Basophils % (A) 1.2 %; Eosinophils # (A) 0.08 X 10*3/uL (0.04-0.35); HCT 33.7 % (37.2-46.3); HGB 10.8 g/dL (12.0-15.0); Immature Grans, Automated 0.3 %; Lymphocytes # (A) 2.09 X 10*3/uL (0.90-5.00); MCH 30.3 pg (27.0-32.0); MCV 94.7 fL (80.0-97.0); Mean Platelet Volume 10.9 fL (9.5-12.2); Monocytes % (A) 6.5 %; NRBC Per 100 WBC 0 /100 WBCS (0.0-0.0); Neutrophils # (A) 4.96 X 10*3/uL (1.80-7.70); Platelet Count 141 X 10*3/uL (140-440); RBC 3.56 X 10*6/uL (4.10-5.20); RDW 18.9 % (11.5-14.5); WBC 7.74 X 10*3/uL (4.50-10.00)
[2023-01-21 09:08] LABS: African American GFR (CKD) 115.7 (60.0-200.0); Anion Gap 10.9 mmol/L (10.00-18.00); BUN/Creat Ratio 13.85 Ratio (12.00-20.00); Carbon Dioxide 24.5 mmol/L (20.0-27.5); Magnesium 1.5 mg/dL (1.5-2.4); Non-African American GFR(CKD) 99.8 (60.0-200.0); Potassium 3.9 mmol/L (3.5-5.5)
[2023-01-21] MEDS: METOPROLOL SUCCINATE (ER) 50 MG TAB.ER.24H PO SCH (10:06)
[2023-01-21] MEDS: ISOSORBIDE MONONITRATE ER 30 MG TAB.ER.24H PO SCH (10:06)
[2023-01-21] MEDS: BRIMONIDINE TARTRATE 0.2% DROPS 5 ML BTL BOTH EYES SCH ×2 (10:06→20:38)
[2023-01-21] MEDS: MAGNESIUM OXIDE 400 MG TAB PO SCH (10:06)
[2023-01-21] MEDS: NICOTINE 21MG/24HR PATCH TRANSDERM SCH (10:06)
[2023-01-21] MEDS: PANTOPRAZOLE 40 MG TABLET PO SCH (10:06)
[2023-01-21] MEDS: TICAGRELOR 90 MG TAB PO SCH ×2 (10:07→20:38)
[2023-01-21] MEDS: ASPIRIN 81 MG PO SCH (10:07)
[2023-01-21] MEDS: FOLIC ACID 1 MG TAB PO SCH ×2 (10:07→10:23)
[2023-01-21] MEDS: NON FORMULARY DRUG (Vitamin B Complex [Vitamin B Complex] 1 EACH Capsule) PO SCH (10:08)
[2023-01-21] MEDS: FLUTICASONE 50MCG/SPRAY NASAL 16GM EA NOSTRIL SCH (10:08)
[2023-01-21] MEDS: THIAMINE 100 MG/ML 2 ML VIAL IVP SCH (10:23)
--- NOTE | 2023-01-21 12:02 | P.CNOR ---
History of Present Illness - [facility] Consult date: 01/21/23 Requesting physician: Ankur Jasmine Consult reason: other (Chronic back pain) History of present illness: Patient is a 62-year-old female who presents to the emergency department at [facility] yesterday with chief complaint of depression. Orthopedics has been consulted for back pain. Patient was seen at bedside this morning. Patient says she has had ongoing low back pain over the past 6 years. Patient says she did have a fall several years ago and has had low back pain since then. Patient also says she did have a stroke a couple years ago which has left her right upper extremity weak. Patient says she has not had any falls recently. Patient says normally she does ambulate with a walker. Patient says she has been following with with a neurologist over the past couple years due to balance issues and repeated falls. Patient says she has tried physical therapy before on her back with minimal relief. Patient says she has seen a chiropractor in the past due to her back pain. Patient says she has never had any injections in the back or previous spine surgery. Patient says she has never used a brace for her back. Patient says her back pain is pretty constant nature. Patient says she does get some radiation of pain down both legs. Patient denies any saddle anesthesia. Patient denies loss of bowel/bladder control. Patient also mentions she does have some left shoulder pain which has been ongoing for the past month. Patient says she just woke up one morning and the shoulder pain began. Patient says she describes it as burning in nature and says mostly is localized to the shoulder blade but sometimes does move up into the neck and down to her elbow. Patient says she has tried [id number] pain medication at home with minimal relief for both the back and shoulder issues. Patient denies chest pain, fever, shortness of breath, nausea, vomiting, change in vision, loss of bowel/bladder control Past Medical History Past Medical History: Asthma, Coronary Artery Disease (CAD), COPD, CVA/TIA, Eye Disorder, Hypertension, Liver Disease, Myocardial Infarction ([place]), Seizure Disorder, Vascular Disorder Additional Past Medical History / Comment(s): Pt recently admitted to [facility] for diarrhea, ETOH abuse. 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 soon Last Myocardial Infarction Date:: aug 2018 History of Any Multi-Drug Resistant Organisms: None Reported Past Surgical History: Cholecystectomy, Heart Catheterization, Orthopedic Surgery Additional Past Surgical History / Comment(s): L caratid stent, bilateral knee surgeries for tendon repair, bartholian cyst removed bilateral wrists, cataracts Past Anesthesia/Blood Transfusion Reactions: Motion Sickness Additional Past Anesthesia/Blood Transfusion Reaction / Comm: Pt has received blood without reaction. Past Psychological History: Anxiety, Depression Additional Psychological History / Comment(s): Pt states lately her stress/anxiety has been increased. She uses a walker to ambulate. She has a nebulizer. She no longer drives, Pt manages her own meds. She states meals are an issue d/t difficulty standing/using a walker. Smoking Status: Current every day smoker Past Alcohol Use History: Daily, Heavy Additional Past Alcohol Use History / Comment(s): Pt started smoking as a teen and has cut down to 1 pack / day. Pt. states she has been drinking more to stay warm because she lost power. Drinks ~8 shots / day. Past Drug Use History: Marijuana Additional Drug Use History / Comment(s): Pt has medical marijuana, reports she has not used it in a while. - Past Family History Mother Family Medical History: Cancer, Congestive Heart Failure (CHF), Coronary Artery Disease (CAD), Hyperlipidemia Additional Family Medical History / Comment(s): Mother at age 85 from lung cancer. Father Family Medical History: Cancer, COPD Additional Family Medical History / Comment(s): Father at age 63 from lung cancer. Brother(s) Additional Family Medical History / Comment(s): Patient has a total of 7 siblings. 5 are alive without any major medical problems she is aware of. 2 siblings have one from alcohol abuse and 1. Coronary artery disease. Daughter(s) Additional Family Medical History / Comment(s): Patient has one daughter with no major medical problems. Medications and Allergies Home Medications Medication Instructions Recorded Confirmed Type Aspirin EC [Ecotrin Low Dose] 81 mg PO DAILY 02/11/19 01/20/23 History Metoprolol Succinate (ER) [Toprol 50 mg PO DAILY 06/13/21 01/20/23 History XL] Pantoprazole [Protonix] 40 mg PO DAILY 06/13/21 01/20/23 History Fluticasone Nasal [place] [Flonase 1 spr EA NOSTRIL DAILY 02/14/22 01/20/23 History Nasal [place]] Magnesium Oxide 400 mg PO DAILY 02/14/22 01/20/23 History Folic Acid 1 mg PO DAILY #30 tab 06/13/22 01/20/23 Rx Ondansetron Odt [Zofran ODT] 4 mg PO Q8HR PRN #20 tab 06/13/22 01/20/23 Rx Simvastatin [Zocor] 40 mg PO HS 07/03/22 01/20/23 History Vitamin B Complex 1 cap PO DAILY 07/03/22 01/20/23 History Cyclobenzaprine [Flexeril] 10 mg PO TID PRN #20 tab 07/17/22 01/20/23 Rx Nitroglycerin Sl Tabs [Nitrostat] 0.4 mg SUBLINGUAL Q5M PRN #30 tab 08/08/22 01/20/23 Rx Brimonidine Tartrate [Alphagan P 1 drop BOTH EYES BID 11/10/22 01/20/23 History 0.2% Ophth Soln] Budesonide-Formot 160-4.5 Mcg 2 puff INHALATION RT-BID 11/10/22 01/20/23 History [Symbicort 160-4.5 Mcg Inhaler] HYDROcodone/APAP 7.5-325MG [[place] 1 tab PO Q6H PRN 11/10/22 01/20/23 History 7.5-325] Isosorbide Mononitrate ER [Imdur] 30 mg PO DAILY 11/10/22 01/20/23 History Ketorolac [Toradol] 10 mg PO Q8H PRN 11/10/22 01/20/23 History chlordiazePOXIDE HCl [Librium] 25 mg PO TID PRN 11/10/22 01/20/23 History Ticagrelor [Brilinta] 90 mg PO BID 01/14/23 01/20/23 History Allergies Allergy/AdvReac Type Severity Reaction Status Date / Time latex Allergy Rash/Hives Verified 01/20/23 12:28 tomato Allergy Diarrhea Verified 01/20/23 12:28 Influenza Virus Vaccines AdvReac Nausea & Verified 01/20/23 12:28 Vomiting morphine AdvReac Nausea & Verified 01/20/23 12:28 Vomiting Physical Examination Negative for any open fractures consciousness and ecchymosis/erythema/ulcers. Sensation is equal, symmetric bilaterally intact throughout the lower extremities. There is some diminished sensation throughout the right upper extremity due to previous stroke. There is moderate tenderness to palpation over lumbar spine at midline and in the bilateral SI joints. There is also a fair amount of tenderness to palpation over the left shoulder blade and in the posterior cervical spine region. Nontender to palpation throughout rest of exam. Patient does have full range of motion bilateral lower extremities on exam. Patient has full range of motion in left upper extremity exam. There is some limited range of motion in the right upper extremity and shoulder for elevation due to previous stroke. 4+/5 in all major motor groups and bilateral lower extremities. 4+/5 in and all major motor groups in bilateral upper extremities. Casing In Line Setter strength 5/5. Neurovascular status is intact bilaterally. Radial pulse intact, 2+ bilaterally. Cap refill under 3 seconds in digits upper extremities. Results - Labs Labs: Abnormal Lab Results - Last 24 Hours (Table) 01/20/23 01/20/23 01/20/23 Range/Units 12:33 12:33 12:33 WBC 13.9 H (3.8-10.6) k/uL RBC (4.10-5.20) X 10*6/uL Hgb (12.0-15.0) g/dL Hct (37.2-46.3) % RDW 18.3 H (11.5-15.5) % Neutrophils # 9.5 H (1.3-7.7) k/uL Sodium (135-145) mmol/L BUN (9.0-27.0) mg/dL Glucose 118 H (74-99) mg/dL Plasma Lactic Acid [place] (0.7-2.0) mmol/L Calcium 7.8 L (8.4-10.2) mg/dL AST 63 H (14-36) U/L ALT 46 H (4-34) U/L U Benzodiazepines Scrn Detected H (NotDetected) Serum Alcohol 285 H* mg/dL 01/20/23 01/20/23 01/21/23 Range/Units 12:33 15:56 06:10 WBC (3.8-10.6) k/uL RBC 3.56 L (4.10-5.20) X 10*6/uL Hgb 10.8 L (12.0-15.0) g/dL Hct 33.7 L (37.2-46.3) % RDW 18.9 H (11.5-15.5) % Neutrophils # (1.3-7.7) k/uL Sodium (135-145) mmol/L BUN (9.0-27.0) mg/dL Glucose (74-99) mg/dL Plasma Lactic Acid [place]ron 3.4 H* 3.8 H* (0.7-2.0) mmol/L Calcium (8.4-10.2) mg/dL AST (14-36) U/L ALT (4-34) U/L U Benzodiazepines Scrn (NotDetected) Serum Alcohol mg/dL 01/21/23 Range/Units 06:10 WBC (3.8-10.6) k/uL RBC (4.10-5.20) X 10*6/uL Hgb (12.0-15.0) g/dL Hct (37.2-46.3) % RDW (11.5-15.5) % Neutrophils # (1.3-7.7) k/uL Sodium 134 L (135-145) mmol/L BUN 8.0 L (9.0-27.0) mg/dL Glucose (74-99) mg/dL Plasma Lactic Acid Camron (0.7-2.0) mmol/L Calcium 8.0 L (8.4-10.2) mg/dL AST (14-36) U/L ALT (4-34) U/L U Benzodiazepines Scrn (NotDetected) Serum Alcohol mg/dL H & H 01/20/23 01/21/23 Range/Units 12:33 06:10 Hgb 13.0 10.8 L (11.4-16.0) gm/dL Hct 40.0 33.7 L (34.0-46.0) % Result Diagrams: 01/21/23 06:10 01/21/23 06:10 - Diagnostic results Lumbar AP/lateral x-ray: report reviewed, image reviewed (x-rays of the lumbar spine have been reviewed. There are vertebral compression fractures at L1 and L4 which appeared to be chronic in nature. There is also evident degenerative disc disease throughout the lumbar spine.) Assessment and Plan Assessment: 1. Low back pain; left shoulder/ left sided neck pain 2. Multiple medical comorbidities Plan: 1. Low back pain; left shoulder/ left sided neck pain - x-rays of the lumbar spine have been reviewed. There are vertebral compression fractures at L1 and L4 which appeared to be chronic in nature. There is also evident degenerative disc disease throughout the lumbar spine. At this time we are not recommending any emergent/urgent orthopedic surgical intervention. Patient may benefit from use of LSO brace. Pain medication as needed. We recommend conservative measures at this time. Patient may follow-up in the outpatient setting with Dr. Villa in for further evaluation. We will continue to be available to see patient as needed. 2. Appreciate medical management 3. Pain management - [place]; Flexeril 4. GI prophylaxis - Mag-Ox; Protonix 5. DVT prophylaxis - aspirin 6. PT/OT - weightbearing as tolerated with walker and assistance 7. Appreciate consult Time with Patient: Less than 30
--- NOTE | 2023-01-21 12:35 | P.PN ---
Subjective This is a pleasant 62 years old female with multiple medical problems including Asthma, Coronary Artery Disease , COPD, CVA/TIA, , Hypertension, Liver Disease, Seizure Disorder, ETOH abuse. 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 s/p Cholecystectomy, Anxiety, Depression, Current every day smoker Patient says that she came to the hospital because suicidal thoughts. She knows she is in regular in hospital, she notices the year to be 2021 and it is December, she could not tell the name of the president because it is the first time came across her mind that she needs to give up and common suicide, but then she decided to come to emergency room right than committing suicide. She said that she has no history of depression and she does not take medication and she does not follow with psychiatrist. She smokes about 1 pack per day and she was counseled to quit and she agrees to the nicotine patch. She drinks whiskey, she stated that she drinks most of the time every day and she confirms that she was drinking the whole last 7 days. Today she states she took 4 shots of whiskey however she may be drinking more than that but she could not elaborate. And she has medical marijuana but she doesn't like it. She stated that she decided to commit suicide because she could not tolerate her low back pain which he has for 6 years Also patient noticed that her right leg has been weak but she says that is been going on for about 6 years Vitals are stable, patient is mildly tachycardic and tachypneic Labs showing mild leukocytosis of 13.9 BMP is unremarkable. Lactic acid elevated at 3.4. Liver enzymes mildly elevated. Lipase normal. Urine drug screen is positive for benzodiazepines. Serum alcohol is elevated to 85. Lumbar x-ray showing chronic mild compression fractures L1 and L4, mild degenerative disc disease from L1 through L5 and no acute changes compared to previous In the emergency room she was started on normal saline at 134 short time. Also she was resumed her home medication of [place] 7.5 mg. She denies any GI or urinary issue, no abdominal pain vomiting or diarrhea, no urgency or dysuria. She denies headache or dizziness although she feels sleepy and tired from drinking alcohol. She denies new weakness or numbness 01/21/2023 Patient complains of minimal back pain today with bed rest however she still complaining from left and left neck pain. And on for about one month. Orthopedic team evaluated the patient and the recommended LSO brace, consult case worker place regarding this. Patient awake alert, no significant alcohol withdrawal symptoms. His CIWA score this morning is 0-2. Patient States That She Came to the Hospital Because of suicidal thought, she looks less depressed today, sitter at bed site and psychiatrist has been consulted Objective - Vital Signs Vital signs: Vital Signs Temp 98.6 F 01/21/23 12:06 Pulse 73 01/21/23 12:06 Resp 16 01/21/23 12:06 BP 113/80 01/21/23 12:06 Pulse Ox 95 01/21/23 12:06 FiO2 Intake & Output 01/20/23 01/21/23 01/21/23 17:59 06:59 18:59 Intake Total Balance Weight Intake: Intake, IV Titration Amount Sodium Chloride 0.9% 1, 000 ml @ 130 mls/hr IV . Q7H42M [facility] Rx#:[id number] Oral Other: Voiding Method Toilet # Voids # Bowel Movements - Exam -GENERAL: The patient is alert and oriented x1-2 partially, not in any acute distress. Well developed, well nourished. HEENT: Pupils are round and equally reacting to light. EOMI. No scleral icterus. No conjunctival pallor. Normocephalic, atraumatic. No pharyngeal erythema. No thyromegaly. CARDIOVASCULAR: S1 and S2 present. No murmurs, rubs, or gallops. PULMONARY: Chest is clear to auscultation, no wheezing or crackles. ABDOMEN: Soft, nontender, nondistended, normoactive bowel sounds. No palpable organomegaly. MUSCULOSKELETAL: No joint swelling or deformity. EXTREMITIES: No cyanosis, clubbing, or pedal edema. NEUROLOGICAL: Cranial nerves are grossly intact, motor: Right leg is weak/5 while rest of extremities is 5/5. Sensation intact. SKIN: No rashes. no petechiae. - Labs CBC & Chem 7: 01/21/23 06:10 01/21/23 06:10 Labs: Abnormal Lab Results - Last 24 Hours (Table) 01/20/23 01/20/23 01/20/23 Range/Units 12:33 12:33 12:33 WBC 13.9 H (3.8-10.6) k/uL RBC (4.10-5.20) X 10*6/uL Hgb (12.0-15.0) g/dL Hct (37.2-46.3) % RDW 18.3 H (11.5-15.5) % Neutrophils # 9.5 H (1.3-7.7) k/uL Sodium (135-145) mmol/L BUN (9.0-27.0) mg/dL Glucose 118 H (74-99) mg/dL Plasma Lactic Acid Camron (0.7-2.0) mmol/L Calcium 7.8 L (8.4-10.2) mg/dL AST 63 H (14-36) U/L ALT 46 H (4-34) U/L U Benzodiazepines Scrn Detected H (NotDetected) Serum Alcohol 285 H* mg/dL 01/20/23 01/20/23 01/21/23 Range/Units 12:33 15:56 06:10 WBC (3.8-10.6) k/uL RBC 3.56 L (4.10-5.20) X 10*6/uL Hgb 10.8 L (12.0-15.0) g/dL Hct 33.7 L (37.2-46.3) % RDW 18.9 H (11.5-15.5) % Neutrophils # (1.3-7.7) k/uL Sodium (135-145) mmol/L BUN (9.0-27.0) mg/dL Glucose (74-99) mg/dL Plasma Lactic Acid Camron 3.4 H* 3.8 H* (0.7-2.0) mmol/L Calcium (8.4-10.2) mg/dL AST (14-36) U/L ALT (4-34) U/L U Benzodiazepines Scrn (NotDetected) Serum Alcohol mg/dL 01/21/23 Range/Units 06:10 WBC (3.8-10.6) k/uL RBC (4.10-5.20) X 10*6/uL Hgb (12.0-15.0) g/dL Hct (37.2-46.3) % RDW (11.5-15.5) % Neutrophils # (1.3-7.7) k/uL Sodium 134 L (135-145) mmol/L BUN 8.0 L (9.0-27.0) mg/dL Glucose (74-99) mg/dL Plasma Lactic Acid [place]ron (0.7-2.0) mmol/L Calcium 8.0 L (8.4-10.2) mg/dL AST (14-36) U/L ALT (4-34) U/L U Benzodiazepines Scrn (NotDetected) Serum Alcohol mg/dL Assessment and Plan Assessment: Depression and suicidal ideation Alcohol abuse at-risk of alcohol withdrawal Acute on chronic low back pain, with lumbar x-ray showing chronic fracture of L1 and L4 with no acute changes Mild transaminitis with AST more than ALT metabolic/toxic encephalopathy History of stroke with right hemiparesis, chronic (patient states is been for 6 years) COPD with mild acute exacerbation History of coronary artery disease Hypertension History of seizure History of alcoholic liver cirrhosis and ascites status post paracentesis History of falls Irritable bowel syndrome Chronic back pain Degenerative disc disease History of vertebral fractures from falls Plan: Continuous sitter at bedside Suicidal precautions Patient cannot leave AMA total evaluated by psychiatrist, if she tries to leave him and she needs to be petitioned Continue with CIWA protocol Continue with thiamine Her mentation abnormality most likely secondary to alcohol effect, which is mild but if no improvement or worsens then we'll consider further workup Continue with inhaled steroids Labs and medication were reviewed.. Continue same treatment. Continue with symptomatic treatment. Resume home medication. Monitor labs and vitals. DVT and GI prophylaxis. Further recommendations as per clinical course of the patient DVT prophylaxis: Subcutaneous heparin GI Prophylaxis: Pepcid PT/OT: Pending Prognosis is guarded
[2023-01-21] MEDS: CYCLOBENZAPRINE 10 MG TAB PO PRN ×2 (13:27→19:38)
[2023-01-21] MEDS: ATORVASTATIN 20 MG TAB PO SCH (20:38)
[2023-01-22] MEDS: HYDROcodone/APAP 7.5-325MG 1 EACH TAB PO PRN ×2 (00:33→08:40)
[2023-01-22] MEDS: CYCLOBENZAPRINE 10 MG TAB PO PRN (05:37)
[2023-01-22] MEDS: FOLIC ACID 1 MG TAB PO SCH (08:40)
[2023-01-22] MEDS: TICAGRELOR 90 MG TAB PO SCH (08:40)
[2023-01-22] MEDS: PANTOPRAZOLE 40 MG TABLET PO SCH (08:40)
[2023-01-22] MEDS: MAGNESIUM OXIDE 400 MG TAB PO SCH (08:40)
[2023-01-22] MEDS: METOPROLOL SUCCINATE (ER) 50 MG TAB.ER.24H PO SCH (08:41)
[2023-01-22] MEDS: ISOSORBIDE MONONITRATE ER 30 MG TAB.ER.24H PO SCH (08:41)
[2023-01-22] MEDS: ASPIRIN 81 MG PO SCH (08:41)
[2023-01-22] MEDS: THIAMINE 100 MG/ML 2 ML VIAL IVP SCH (08:41)
[2023-01-22] MEDS: NICOTINE 21MG/24HR PATCH TRANSDERM SCH (08:42)
[2023-01-22] MEDS: FLUTICASONE 50MCG/SPRAY NASAL 16GM EA NOSTRIL SCH (08:43)
[2023-01-22] MEDS: SODIUM CHLORIDE 0.9% 1,000 ML IV SCH (08:45)
[2023-01-22] MEDS: NON FORMULARY DRUG (Vitamin B Complex [Vitamin B Complex] 1 EACH Capsule) PO SCH (08:52)
[2023-01-22] MEDS: SYMBICORT 160-4.5 MCG INHALER INHALATION SCH (08:56)
[2023-01-22] MEDS ORDERED: Magnesium Replacement Protocol 1 EACH MISC MISCELLANE PRN (09:50)
[2023-01-22] MEDS: BRIMONIDINE TARTRATE 0.2% DROPS 5 ML BTL BOTH EYES SCH (11:25)
[2023-01-22] MEDS: MAGNESIUM SULFATE-D5W PMX 1 GM in DEXTROSE/WATER 1 100ML.BAG IVPB SCH ×2 (11:25→12:47)
[2023-01-22] MEDS ORDERED: hydrALAZINE HCL 20 MG/ML 1 ML VIAL IVP STA (11:40)
[2023-01-22 12:47] VITALS: BP 139/77; PULSE 73; RESP 18; TEMP 97.9
--- NOTE | 2023-01-22 14:58 | P.PN ---
Subjective Progress Note Date: 01/22/23 Principal diagnosis: Low back pain; left shoulder/ left sided neck pain Patient was seen at bedside this afternoon lying in semirecumbent position. Patient says her low back pain has been getting better since she came to the hospital. Patient says she feels the pain on the left side of her neck and left shoulder seems to be getting worse. Patient says she is able to raise her arm above her head. But she says she is getting pain from the left side of her neck into her shoulder blade on the left as well as down the arm to her elbow. Patient denies any other changes. Patient denies saddle anesthesia. Patient denies chest pain, fever, shortness breath, nausea, vomiting, change in vision, loss of bowel/bladder control. Objective - Vital Signs Vital signs: Vital Signs Temp 97.9 F 01/22/23 12:45 Pulse 73 01/22/23 12:45 Resp 18 01/22/23 12:45 BP 139/77 01/22/23 12:45 Pulse Ox 95 01/22/23 12:45 FiO2 Intake & Output 01/21/23 01/22/23 01/22/23 18:59 06:59 18:59 Intake Total 900 500 118 Balance 900 500 118 Intake: Intake, IV Titration 900 Amount Sodium Chloride 0.9% 1, 900 000 ml @ 75 mls/hr IV . [id number] COUNT INCLUDES THE [facility] Rx#:[id number] Oral 500 118 Other: Voiding Method Toilet Toilet # Voids 3 - Exam Negative for any open fractures, ecchymosis/erythema/ulcers. Sensation is equal, symmetric bilaterally intact throughout the lower extremities. There is some diminished sensation throughout the right upper extremity due to previous stroke. There is moderate tenderness to palpation over lumbar spine at midline and in the bilateral SI joints. There is also a fair amount of tenderness to palpation over the left shoulder blade and in the posterior cervical spine regio n. Nontender to palpation throughout rest of exam. Patient does have full range of motion bilateral lower extremities on exam. Patient has full range of motion in left upper extremity exam. There is some limited range of motion in the right upper extremity and shoulder for elevation due to previous stroke. 4+/5 in all major motor groups and bilateral lower extremities. 4+/5 in and all major motor groups in bilateral upper extremities. Rivet Sticker strength 5/5. Neurovascular status is intact bilaterally. Radial pulse intact, 2+ bilaterally. Cap refill under 3 seconds in digits upper extremities. - Labs CBC & Chem 7: 01/21/23 06:10 01/21/23 06:10 Assessment and Plan Assessment: 1. Low back pain; left shoulder/ left sided neck pain 2. Multiple medical comorbidities Plan: 1. Low back pain; left shoulder/ left sided neck pain - x-rays of the lumbar spine have been reviewed. There are vertebral compression fractures at L1 and L4 which appeared to be chronic in nature. There is also evident degenerative disc disease throughout the lumbar spine. At this time we are not recommending any emergent/urgent orthopedic surgical intervention. Patient may benefit from use of LSO brace. LSO brace ordered Pain medication as needed. We recommend conservative measures at this time. Patient may follow-up in the outpatient setting with Dr. Villa in for further evaluation. Patient is stable from an orthopedic standpoint for discharge home. At this time orthopedics is s igning off. Please do not hesitate to contact us for any further questions. 2. Appreciate medical management 3. Pain management - [place]; Flexeril 4. GI prophylaxis - Mag-Ox; Protonix 5. DVT prophylaxis - aspirin 6. PT/OT - weightbearing as tolerated with walker and assistance 7. Appreciate consult Time with Patient: Less than 30
--- NOTE | 2023-01-22 17:38 | P.CN ---
Psychiatric Consult - . Consult date: 01/21/23 Consult:: IDENTIFYING DATA: This patient is a 62 year old female who lives alone REASON FOR REFERRAL: Psychiatry was consulted for depression/suicidal ideation HISTORY OF PRESENT ILLNESS: The patient presented to the hospital "with complaints of feeling suicidal and depressed and she also admits to drinking alcohol this morning. She can't take it anymore because of the pain she has considered suicide though she does not seem to have a plan at this time. Denies any headache blurry vision loss of function to her upper or lower extremities. She was recently admitted to this facility for COPD exacerbation and alcohol i ntoxication .No other current complaints or modifying factors." On my assessment, patient was found resting in bed, eating a bag of potato chips and watching TV, with sitter at bedside. She appears calm and relaxed in bed. She admits to mild depression, but denies any suicidal ideation intent or plan. She denies problems with sleep, anhedonia, energy, concentration, appetite. She denies auditory or visual hallucinations. She says she may have made a suicidal statement yesterday but because she was in a lot of pain. He had been drinking alcohol in her blood alcohol level on arrival to the ER was 285. He appears to minimize her alcohol use. She says she drinks for pain relief. She reports drinking 1-2 shots of whiskey per day. She denies any history of alcohol withdrawal. She denies current alcohol withdrawal symptoms. Denies any current drug use, but has a history of cannabis use per chart. She declines referral to substance abuse treatment. Declines referral to residential substance abuse programs. She declines medications to treat depression. PAST PSYCHIATRIC HISTORY: Patient has a a history of alcohol abuse. Patient denies being on any psychiatric medications. Patient denies any previous psychiatric hospitalizations. Patient denies any psychiatric outpatient follow- up. Patient denies any history of suicide attempts in the past. PAST MEDICAL HISTORY: Past Medical History: Asthma, Coronary Artery Disease (CAD), COPD, CVA/TIA, Eye Disorder, Hypertension, Liver Disease, Myocardial Infarction (MA), Seizure Disorder, Vascular Disorder Additional Past Medical History / Comment(s): Pt recently admitted to [facility] for diarrhea, ETOH abuse. 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 soon Last Myocardial Infarction Date:: aug 2018 History of Any Multi-Drug Resistant Organisms: None Reported Past Surgical History: Cholecystectomy, Heart Catheterization, Orthopedic Surgery Additional Past Surgical History / Comment(s): L caratid stent, bilateral knee surgeries for tendon repair, bartholian cyst removed bilateral wrists Past Anesthesia/Blood Transfusion Reactions: Motion Sickness Additional Past Anesthesia/Blood Transfusion Reaction / Comment(s): Pt has received blood without reaction. Past Psychological History: Anxiety, Depression Smoking Status: Current every day smoker Past Alcohol Use History: Daily, Heavy Past Drug Use History: Marijuana ALLERGIES: as per EMR. CHEMICAL DEPENDENCY HISTORY: as per HPI. FAMILY PSYCHIATRIC/SUBSTANCE USE HISTORY: Reports she has an older sister with paranoid schizophrenia. SOCIAL HISTORY: , has a 26-year-old daughter. Reports she lives alone in a modular home. She reports limited family support. MENTAL STATUS EXAM: General Appearance: Patient appears to be stated age, obese, resting in bed watching TV, fair hygiene and grooming wearing hospital gown with fair eye contact. Behavior: Patient is calmly lying in bed without any agitated behavior. Speech: Patient's speech is fluent and non-pressured. Mood/Affect: Patient reports their mood is "it's ok", affect is congruent Suicidality/Homicidality: Patient denies having any suicidal or homicidal ideation intent or plan. Perceptions: Patient denies any visual hallucinations and denies any auditory hallucinations. Though content/process: There is no evidence of any delusional thought content and thought process is linear and goal-directed. Memory and concentration: AOX3, grossly intact for the purposes of this session. Judgment and insight: Fair, poor in regards to alcohol use IMPRESSIONS: Unspecified depressive disorder Rule out substance-induced depressive disorder Alcohol use disorder, severe PLAN: -At this time patient DOES NOT meet criteria for inpatient psychiatric admission. -Would recommend the following medication changes/additions: Patient declines any medications at this time. -CIWA protocol with PRN Ativan for alcohol withdrawal. Continue to monitor vital signs. -Can discontinue 1:1 sitter at this time as patient is not currently an imminent threat to themselves -layout worker to provide patient with outpatient mental health/psychiatry resources for appropriate follow up upon discharge -Academic Physician spoke with patient about substance abuse and the harmful effects on medical and mental health, patient verbally understood and agreed. -layout worker to provide patient substance use treatment resources including AA/NA meetings in the community. -Communicated plan to patient's nurse -Psychiatry will sign off at this time -Please contact with any questions. 01/21/23 12:13 01/21/23 14:47 01/22/23 17:25
--- NOTE | 2023-01-26 06:37 | P.DS ---
Providers Date of admission: 01/20/23 14:28 Expected date of discharge: 01/22/23 Attending physician: Sammy Amador MD Consults: 01/20/23 14:28 Consult Physician Routine Consulting Provider: Camden Villa Consult Reason/Comments: Chronic back pain Do you want consulting provider notified?: Yes Consult Physician Routine Consulting Provider: Kenroy Banuelos Consult Reason/Comments: Depression, suicidal ideation Do you want consulting provider notified?: Already Contacted Primary care physician: Miya Johnson Hospital Course: Final diagnosis Depression and suicidal ideation Alcohol abuse at-risk of alcohol withdrawal Acute on chronic low back pain, with lumbar x-ray showing chronic fracture of L1 and L4 with no acute changes Mild transaminitis with AST more than ALT metabolic/toxic encephalopathy History of stroke with right hemiparesis, chronic (patient states is been for 6 years) COPD with mild acute exacerbation History of coronary artery disease Hypertension History of seizure History of alcoholic liver cirrhosis and ascites status post paracentesis History of falls Irritable bowel syndrome Chronic back pain Degenerative disc disease History of vertebral fractures from falls Discharge disposition Patient is being discharged in a stable condition with guarded prognosis to home . Patient will follow-up with Dr. Sherman Cardoza in the outpatient setting upon discharge. Patient is to follow-up with orthopedics outpatient as scheduled. Total time taken is greater than 35 minutes. Hospital course This is a 62-year-old female who was recently admitted with alcohol intoxication with suicidal ideation and being closely monitored. Patient was continued on CIWA protocol and also reporting back pain and weakness. Patient was evaluated by orthopedics a clinic conservative management and possible LSO brace which is being ordered by case management. Patient has been cleared by orthopedics for close outpatient follow-up. Patient was also evaluated by psychiatry and cleared recommending outpatient follow-up with [facility] and primary care provider. Strongly encouraged avoiding alcohol use. Currently no reports of chest pain, shortness of breath, or palpitations. Patient is afebrile. No reports of nausea or vomiting and patient is tolerating diet. Patient will be discharged home today. Guarded prognosis as patient is high risk for readmissions and has had multiple hospitalizations for alcohol intoxication and noncompliance Physical exam: Gen: This is a 62-year-old female who is awake, alert and oriented 3, well- developed, well-nourished, obese HEENT: Head is atraumatic, normocephalic. Pupils equal, round. Sclerae is anicteric. NECK: Supple. No JVD. No lymphadenopathy. No thyromegaly. LUNGS: Clear to auscultation. No wheezes or rhonchi. No intercostal retractions. HEART: Regular rate and rhythm. No murmur. ABDOMEN: Soft. Bowel sounds are present. No masses. No tenderness. EXTREMITIES: No pedal edema. No calf tenderness. NEUROLOGICAL: Patient is awake, alert and oriented x3. Cranial nerves 2 through 12 are grossly intact. Please refer to medication reconciliation sheet for a list of medications. The impression and plan of care has been dictated by Tonya Adan, Nurse Practitioner as directed. MD Chanelle I have performed a history and examination and MDM of this patient, discussed the same with the dictator, and agree with the dictator's assessment and plan as written ,documented as a scribe. Based on total visit time, I have performed more than 50% of the visit. Patient Condition at Discharge: Fair Plan - Discharge Summary Discharge Rx Participant: No New Discharge Prescriptions: New Thiamine [Vitamin B-1] 100 mg PO DAILY #30 tablet Nicotine 21Mg/24Hr Patch [Habitrol] 1 patch TRANSDERM DAILY patch Albuterol Inhaler [Ventolin Hfa Inhaler] 2 puff INHALATION RT-QID PRN 30 Days #1 each PRN Reason: Shortness Of Breath Or Wheezing Continue Aspirin EC [Ecotrin Low Dose] 81 mg PO DAILY Pantoprazole [Protonix] 40 mg PO DAILY Folic Acid 1 mg PO DAILY #30 tab Vitamin B Complex 1 cap PO DAILY Nitroglycerin Sl Tabs [Nitrostat] 0.4 mg SUBLINGUAL Q5M PRN #30 tab PRN Reason: Chest Pain Brimonidine Tartrate [Alphagan P 0.2% Ophth Soln] 1 drop BOTH EYES BID Budesonide-Formot 160-4.5 Mcg [Symbicort 160-4.5 Mcg Inhaler] 2 puff INHALATION RT-BID Ticagrelor [Brilinta] 90 mg PO BID Metoprolol Succinate (ER) [Toprol XL] 50 mg PO DAILY Fluticasone Nasal [place] [Flonase Nasal [place]] 1 spr EA NOSTRIL DAILY Magnesium Oxide 400 mg PO DAILY Ondansetron Odt [Zofran ODT] 4 mg PO Q8HR PRN #20 tab PRN Reason: Nausea Simvastatin [Zocor] 40 mg PO HS Cyclobenzaprine [Flexeril] 10 mg PO TID PRN #20 tab PRN Reason: Pain Isosorbide Mononitrate ER [Imdur] 30 mg PO DAILY HYDROcodone/APAP 7.5-325MG [[place] 7.5-325] 1 tab PO Q6H PRN PRN Reason: Pain Ketorolac [Toradol] 10 mg PO Q8H PRN PRN Reason: Pain Discontinued chlordiazePOXIDE HCl [Librium] 25 mg PO TID PRN PRN Reason: anxiety/alcohol withdrawal No Action chlordiazePOXIDE HCl [Librium] See Taper PO DIRECTED PRN PRN Reason: anxiety/alcohol withdrawal Discharge Medication List Aspirin EC [Ecotrin Low Dose] 81 mg PO DAILY 02/11/19 [History] Metoprolol Succinate (ER) [Toprol XL] 50 mg PO DAILY 06/13/21 [History] Pantoprazole [Protonix] 40 mg PO DAILY 06/13/21 [History] Fluticasone Nasal [place] [Flonase Nasal [place]] 1 spr EA NOSTRIL DAILY 02/14/22 [History] Magnesium Oxide 400 mg PO DAILY 02/14/22 [History] Folic Acid 1 mg PO DAILY #30 tab 06/13/22 [Rx] Ondansetron Odt [Zofran ODT] 4 mg PO Q8HR PRN #20 tab 06/13/22 [Rx] Simvastatin [Zocor] 40 mg PO HS 07/03/22 [History] Vitamin B Complex 1 cap PO DAILY 07/03/22 [History] Cyclobenzaprine [Flexeril] 10 mg PO TID PRN #20 tab 07/17/22 [Rx] Nitroglycerin Sl Tabs [Nitrostat] 0.4 mg SUBLINGUAL Q5M PRN #30 tab 08/08/22 [Rx] Brimonidine Tartrate [Alphagan P 0.2% Ophth Soln] 1 drop BOTH EYES BID 11/10/22 [History] Budesonide-Formot 160-4.5 Mcg [Symbicort 160-4.5 Mcg Inhaler] 2 puff INHALATION RT-BID 11/10/22 [History] HYDROcodone/APAP 7.5-325MG [[place] 7.5-325] 1 tab PO Q6H PRN 11/10/22 [History] Isosorbide Mononitrate ER [Imdur] 30 mg PO DAILY 11/10/22 [History] Ketorolac [Toradol] 10 mg PO Q8H PRN 11/10/22 [History] Ticagrelor [Brilinta] 90 mg PO BID 01/14/23 [History] Albuterol Inhaler [Ventolin Hfa Inhaler] 2 puff INHALATION RT-QID PRN 30 Days #1 each 01/22/23 [Rx] Nicotine 21Mg/24Hr Patch [Habitrol] 1 patch TRANSDERM DAILY patch 01/22/23 [Rx] Thiamine [Vitamin B-1] 100 mg PO DAILY #30 tablet 01/22/23 [Rx] chlordiazePOXIDE HCl [Librium] See Taper PO DIRECTED PRN 01/23/23 [History] Follow up Appointment(s)/Referral(s): Miya Johnson MD [Primary Care Provider] - 1-2 days (Please call and make follow up appointment .) Camden Villa DO [Doctor of Osteopathic Medicine] - 02/01/23 10:20 am Ambulatory/Diagnostic Orders: Magnesium [LAB.AMB] Time Frame: 3 Days, Location: None Selected Patient Instructions/Handouts: Chlordiazepoxide (By mouth), Albuterol (By breathing), Thiamine (By mouth), Depression (DC), Alcohol Intoxication (DC), Abuse of Alcohol (DC) Activity/Diet/Wound Care/Special Instructions: *OK to DC* Activity Limited until follow-up Follow-up with primary care provider on discharge Continue Librium taper and avoid all alcohol intake while taking Recommend alcohol rehab and/or AA meetings Continue taking medications as prescribed Recommend follow-up with orthopedics outpatient and may obtain LSO brace outpatient Avoid tobacco use and exposure Discharge/Stand Alone Forms: AA Meetings [place] Discharge Disposition: HOME SELF-CARE
== END 2023-01-22 17:31 | disposition home or self-care (01) | DRG 347 ==
LOC: EC 12:14 → 5NMEDONC 14:28
PROVIDERS: ADMIT Internal Medicine; ATTEND Internal Medicine
DX: M51.36 Other intervertebral disc degeneration, lumbar region (principal); G92.8 Other toxic encephalopathy; R45.851 Suicidal ideations; J44.1 Chronic obstructive pulmonary disease with (acute) exacerbation; I69.351 Hemiplegia and hemiparesis following cerebral infarction affecting right dominant side; I11.0 Hypertensive heart disease with heart failure; I50.9 Heart failure, unspecified; S32.019S Unspecified fracture of first lumbar vertebra, sequela; D64.9 Anemia, unspecified; E66.9 Obesity, unspecified; K70.30 Alcoholic cirrhosis of liver without ascites; F10.229 Alcohol dependence with intoxication, unspecified; S32.049S Unspecified fracture of fourth lumbar vertebra, sequela; M25.512 Pain in left shoulder; M54.2 Cervicalgia; R29.6 Repeated falls; Y90.8 Blood alcohol level of 240 mg/100 ml or more; I69.328 Other speech and language deficits following cerebral infarction; F32.A Depression, unspecified; H26.9 Unspecified cataract; G89.29 Other chronic pain; F41.9 Anxiety disorder, unspecified; K58.9 Irritable bowel syndrome, unspecified; K29.70 Gastritis, unspecified, without bleeding; I25.10 Atherosclerotic heart disease of native coronary artery without angina pectoris; I25.2 Old myocardial infarction; R13.10 Dysphagia, unspecified; F17.210 Nicotine dependence, cigarettes, uncomplicated; Z71.6 Tobacco abuse counseling; Z68.39 Body mass index [BMI] 39.0-39.9, adult; Z79.02 Long term (current) use of antithrombotics/antiplatelets; Z79.82 Long term (current) use of aspirin; Z79.51 Long term (current) use of inhaled steroids; Z79.899 Other long term (current) drug therapy; Z91.81 History of falling; Z95.820 Peripheral vascular angioplasty status with implants and grafts; Z71.41 Alcohol abuse counseling and surveillance of alcoholic; W19.XXXS Unspecified fall, sequela; Z91.040 Latex allergy status; Z88.5 Allergy status to narcotic agent; Z88.7 Allergy status to serum and vaccine; Z91.018 Allergy to other foods
CPT/HCPCS: 36415; 71046; 72110; 80048; 80053; 80143; 80179; 80306; 80320; 82075; 82140; 82550; 83605; 83690; 83735; 85025; 94640; 96361; 96374; 99285

== ENCOUNTER 2023-01-23 13:22 | Emergency (ER) | payer OTHER ==
--- NOTE | 2023-01-23 14:25 | ED ---
Psych HPI - General Source: patient, RN notes reviewed Mode of arrival: wheelchair Limitations: no limitations <Alexsander Currie - Last Filed: 01/23/23 14:22> <Santana Grimes - Last Filed: 01/24/23 01:29> <Lesia Salas - Last Filed: 01/28/23 15:05> - General Chief Complaint: Psychiatric Symptoms Stated Complaint: SOB/AMS Time Seen by Provider: 01/23/23 14:22 - History of Present Illness Initial Comments: 62-year-old female presents emergency department for evaluation of depression suicidal ideation, shoulder pain, alcohol intoxication. Patient was just discharged states she drank a few shots of whiskey this morning she complained of ongoing left shoulder pain. She states she is short of breath today coughing and feels ill. (Alexsander Currie) 62-year-old female presents the emergency department petitioned by police. She reportedly called her brother intoxicated and told him that she was going to kill herself. She reports that she has pain in her left shoulder which has been ongoing since 1984 and it was so severe this morning that she just wanted to . Police did petition the patient. Patient was just hospitalized and discharged yesterday. Reports that she went home and medially started drinking. Patient does admit that she made these comments. She denies any attempt. No other alleviating, Perceptin or modifying factors (Lesia Salas) - Related Data Home Medications Medication Instructions Recorded Confirmed Aspirin EC [Ecotrin Low Dose] 81 mg PO DAILY 02/11/19 01/23/23 Metoprolol Succinate (ER) [Toprol 50 mg PO DAILY 06/13/21 01/23/23 XL] Pantoprazole [Protonix] 40 mg PO DAILY 06/13/21 01/23/23 Fluticasone Nasal [place] [Flonase 1 spr EA NOSTRIL DAILY 02/14/22 01/23/23 Nasal [place]] Magnesium Oxide 400 mg PO DAILY 02/14/22 01/23/23 Simvastatin [Zocor] 40 mg PO HS 07/03/22 01/23/23 Vitamin B Complex 1 cap PO DAILY 07/03/22 01/23/23 Brimonidine Tartrate [Alphagan P 1 drop BOTH EYES BID 11/10/22 01/23/23 0.2% Ophth Soln] Budesonide-Formot 160-4.5 Mcg 2 puff INHALATION RT-BID 11/10/22 01/23/23 [Symbicort 160-4.5 Mcg Inhaler] HYDROcodone/APAP 7.5-325MG [[place] 1 tab PO Q6H PRN 11/10/22 01/23/23 7.5-325] Isosorbide Mononitrate ER [Imdur] 30 mg PO DAILY 11/10/22 01/23/23 Ketorolac [Toradol] 10 mg PO Q8H PRN 11/10/22 01/23/23 Ticagrelor [Brilinta] 90 mg PO BID 01/14/23 01/23/23 chlordiazePOXIDE HCl [Librium] See Taper PO DIRECTED PRN 01/23/23 01/23/23 Previous Rx's Medication Instructions Recorded Folic Acid 1 mg PO DAILY #30 tab 06/13/22 Ondansetron Odt [Zofran ODT] 4 mg PO Q8HR PRN #20 tab 06/13/22 Cyclobenzaprine [Flexeril] 10 mg PO TID PRN #20 tab 07/17/22 Nitroglycerin Sl Tabs [Nitrostat] 0.4 mg SUBLINGUAL Q5M PRN #30 tab 08/08/22 Albuterol Inhaler [Ventolin Hfa 2 puff INHALATION RT-QID PRN 30 01/22/23 Inhaler] Days #1 each Nicotine 21Mg/24Hr Patch [Habitrol] 1 patch TRANSDERM DAILY patch 01/22/23 Thiamine [Vitamin B-1] 100 mg PO DAILY #30 tablet 01/22/23 Allergies Allergy/AdvReac Type Severity Reaction Status Date / Time latex Allergy Rash/Hives Verified 01/28/23 04:24 tomato Allergy Diarrhea Verified 01/28/23 04:24 Influenza Virus Vaccines AdvReac Nausea & Verified 01/28/23 04:24 Vomiting morphine AdvReac Nausea & Verified 01/28/23 04:24 Vomiting Review of Systems ROS Other: All systems not noted in ROS Statement are negative. <Alexsander Currie - Last Filed: 01/23/23 14:22> ROS Other: All systems not noted in ROS Statement are negative. <Santana Grimes - Last Filed: 01/24/23 01:29> ROS Other: All systems not noted in ROS Statement are negative. <Lesia Salas - Last Filed: 01/28/23 15:05> ROS Statement: Those systems with pertinent positive or pertinent negative responses have been documented in the HPI. Past Medical History Past Medical History: Asthma, Coronary Artery Disease (CAD), COPD, CVA/TIA, Eye Disorder, Hypertension, Liver Disease, Myocardial Infarction (MD), Seizure Disorder, Vascular Disorder Additional Past Medical History / Comment(s): Pt recently admitted to [facility] for diarrhea, ETOH abuse. 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 soon Last Myocardial Infarction Date:: aug 2018 History of Any Multi-Drug Resistant Organisms: None Reported Past Surgical History: Cholecystectomy, Heart Catheterization, Orthopedic Surgery Additional Past Surgical History / Comment(s): L caratid stent, bilateral knee surgeries for tendon repair, bartholian cyst removed bilateral wrists, cataracts Past Anesthesia/Blood Transfusion Reactions: Motion Sickness Additional Past Anesthesia/Blood Transfusion Reaction / Comment(s): Pt has received blood without reaction. Past Psychological History: Anxiety, Depression Smoking Status: Current every day smoker Past Alcohol Use History: Abuse, Daily, Heavy Past Drug Use History: Marijuana - Past Family History Mother Family Medical History: Cancer, Congestive Heart Failure (CHF), Coronary Artery Disease (CAD), Hyperlipidemia Additional Family Medical History / Comment(s): Mother at age 85 from lung cancer. Father Family Medical History: Cancer, COPD Additional Family Medical History / Comment(s): Father at age 63 from lung cancer. Brother(s) Additional Family Medical History / Comment(s): Patient has a total of 7 siblings. 5 are alive without any major medical problems she is aware of. 2 siblings have one from alcohol abuse and 1. Coronary artery disease. Daughter(s) Additional Family Medical History / Comment(s): Patient has one daughter with no major medical problems. <Alexsander Currie - Last Filed: 01/23/23 14:22> General Exam Limitations: no limitations <Alexsander Currie - Last Filed: 01/23/23 14:22> General appearance: alert, in no apparent distress Head exam: Present: atraumatic, normocephalic, normal inspection Eye exam: Present: normal appearance, PERRL, EOMI. Absent: scleral icterus, conjunctival injection, periorbital swelling ENT exam: Present: normal exam, mucous membranes moist Neck exam: Present: normal inspection. Absent: tenderness, meningismus, lymphadenopathy Respiratory exam: Present: normal lung sounds bilaterally. Absent: respiratory distress, wheezes, rales, rhonchi, stridor Cardiovascular Exam: Present: regular rate, normal rhythm, normal heart sounds. Absent: systolic murmur, diastolic murmur, rubs, gallop, clicks GI/Abdominal exam: Present: soft, normal bowel sounds. Absent: distended, tenderness, guarding, rebound, rigid Extremities exam: Present: normal inspection, full ROM, normal capillary refill. Absent: tenderness, pedal edema, joint swelling, calf tenderness Back exam: Present: normal inspection Neurological exam: Present: alert, oriented X3, CN II-XII intact Psychiatric exam: Present: normal affect, normal mood Skin exam: Present: warm, dry, intact, normal color. Absent: rash <Lesia Salas - Last Filed: 01/28/23 15:05> - General Exam Comments Initial Comments: Visual Physical Exam Vital signs reviewed General: Well-appearing, nontoxic, no acute distress. Head: Normocephalic, atraumatic Eyes: PERRLA, EOMI ENT: Airway patent Chest: Nonlabored breathing Skin: No visual rash, normal skin tone Neuro: Alert and oriented 3 Musculoskeletal: No gross abnormalities (Alexsander Currie) Course Vital Signs 01/23/23 01/23/23 01/23/23 13:24 14:51 16:30 Temperature 97.7 F Pulse Rate 94 87 Respiratory 18 18 Rate Blood Pressure 87/66 114/80 110/64 O2 Sat by Pulse 98 94 L Oximetry 01/23/23 01/24/23 18:10 01:56 Temperature 98.2 F Pulse Rate 95 86 Respiratory 17 18 Rate Blood Pressure 149/91 137/86 O2 Sat by Pulse 96 99 Oximetry Medical Decision Making - Lab Data Result diagrams: 01/23/23 16:27 01/23/23 16:27 <Santana Grimes - Last Filed: 01/24/23 01:29> - Lab Data Result diagrams: 01/23/23 16:27 01/23/23 16:27 <Lesia Salas Sharlene - Last Filed: 01/28/23 15:05> - Medical Decision Making The patient was signed out to me pending EPS evaluation. EPS to evaluate the patient and stated that she was stable for discharge. The patient had a safety plan obtained and between EPS and the patient did agree to this safety plan. The patient remained stable and was discharged home in stable condition. (Santana Grimes) Was pt. sent in by a medical professional or institution (, [facility], [employer], urgent care, hospital, or senior living...) When possible be specific @ -Police Did you speak to anyone other than the patient for history (EMS, parent, family, police, friend...)? What history was obtained from this source @ -brother Did you review nursing and triage notes (agree or disagree)? Why? @ -I reviewed and agree with nursing and triage notes Were old charts reviewed (outside hosp., previous admission, EMS record, old EKG, old radiological studies, urgent care reports/EKG's, senior living records)? Report findings @ - old charts were reviewed - patient has been seen several times for same complaint Differential Diagnosis (chest pain, altered mental status, abdominal pain women, abdominal pain men, vaginal bleeding, weakness, fever, dyspnea, syncope, headache, dizziness, GI bleed, back pain, seizure, CVA, palpatations, mental health, musculoskeletal)? @ -depression, suicidal, anxiety, alcohol abuse EKG interpreted by me (3pts min.). @ -As above X-rays interpreted by me (1pt min.). @ -yes CT interpreted by me (1pt min.). @ -None done U/S interpreted by me (1pt. min.). @ -None done What testing was considered but not performed or refused? (CT, X-rays, U/S, labs)? Why? @ -None What meds were considered but not given or refused? Why? @ -None Did you discuss the management of the patient with other professionals (pr ofessionals i.e. , PA, [employer], lab, RT, psych nurse, social work manager, pharmacy resident, teacher, chief creative officer, briefcase sewer)? Give summary @ -EPS nurse Was smoking cessation discussed for >3mins.? @ -No Was critical care preformed (if so, how long)? @ -No Were there social determinants of health that impacted care today? How? (Homelessness, low income, unemployed, alcoholism, drug addiction, tr ansportation, low edu. Level, literacy, decrease access to med. care, shelter, rehab)? @ -Alcoholism Was there de-escalation of care discussed even if they declined (Discuss DNR or withdrawal of care, Hospice)? DNR status @ -No What co-morbidities impacted this encounter? (DM, HTN, Smoking, COPD, CAD, Cancer, CVA, ARF, Chemo, Hep., AIDS, mental health diagnosis, sleep apnea, morbid obesity)? @ -alcohol abuse Was patient admitted / discharged? Hospital course, mention meds given and ro [place], prescriptions, significant lab abnormalities, going to OR and other pertinent info. @ -Upon arrival patient was placed into [facility]. Thorough history and physical exam is performed. Patient adamantly wants to go home. She is petitioned. She is medically stable and pending eps evaluation Undiagnosed new problem with uncertain prognosis? @ -No Drug Therapy requiring intensive monitoring for toxicity (Heparin, Nitro, Insulin, Cardizem)? @ -No Were any procedures done? @ -No Diagnosis/symptom? @ -chronic shoulder pain, alcohol abuse, depression Acute, or Chronic, or Acute on Chronic? @ -chronic Uncomplicated (without systemic symptoms) or Complicated (systemic symptoms)? @ -complicated Side effects of treatment? @ -No Exacerbation, Progression, or Severe Exacerbation? @ -No Poses a threat to life or bodily function? How? (Chest pain, USA, MD, pneumonia, PE, COPD, DKA, ARF, appy, cholecystitis, CVA, Diverticulitis, Homicidal, Suicidal, threat to staff... and all critical care pts) @ -yes (Lesia Salas) - Lab Data Lab Results 01/23/23 01/23/23 01/23/23 Range/Units 16:27 16:27 16:27 WBC 6.2 (3.8-10.6) k/uL RBC 3.71 L (3.80-5.40) m/uL Hgb 11.2 L (11.4-16.0) gm/dL Hct 34.3 (34.0-46.0) % MCV 92.3 (80.0-100.0) fL MCH 30.3 (25.0-35.0) pg MCHC 32.8 (31.0-37.0) g/dL RDW 17.8 H (11.5-15.5) % Plt Count 182 (150-450) k/uL MPV 8.0 Neutrophils % 57 % Lymphocytes % 33 % Monocytes % 3 % Eosinophils % 2 % Basophils % 2 % Neutrophils # 3.5 (1.3-7.7) k/uL Lymphocytes # 2.0 (1.0-4.8) k/uL Monocytes # 0.2 (0-1.0) k/uL Eosinophils # 0.1 (0-0.7) k/uL Basophils # 0.1 (0-0.2) k/uL Anisocytosis Slight PT 10.0 (9.0-12.0) sec INR 0.9 (<1.2) APTT 25.3 (22.0-30.0) sec Sodium 138 (137-145) mmol/L Potassium 3.8 (3.5-5.1) mmol/L Chloride 101 (98-107) mmol/L Carbon Dioxide 26 (22-30) mmol/L Anion Gap 11 mmol/L BUN 7 (7-17) mg/dL Creatinine 0.57 (0.52-1.04) mg/dL Est GFR (CKD-EPI)AfAm >90 (>60 ml/min/1.73 sqM) Est GFR (CKD-EPI)NonAf >90 (>60 ml/min/1.73 sqM) Glucose 109 H (74-99) mg/dL Lactic Ac Sepsis Rflx Plasma Lactic Acid Camron (0.7-2.0) mmol/L Calcium 8.1 L (8.4-10.2) mg/dL Magnesium 1.8 (1.6-2.3) mg/dL Total Bilirubin 0.2 (0.2-1.3) mg/dL AST 36 (14-36) U/L ALT 31 (4-34) U/L Alkaline Phosphatase 160 H (38-126) U/L Troponin I (0.000-0.034) ng/mL NT-Pro-B Natriuret Pep pg/mL Total Protein 6.3 (6.3-8.2) g/dL Albumin 3.8 (3.5-5.0) g/dL Urine Opiates Screen (NotDetected) Ur Oxycodone Screen (NotDetected) Urine Methadone Screen (NotDetected) Ur Propoxyphene Screen (NotDetected) Ur Barbiturates Screen (NotDetected) U Tricyclic Antidepress (NotDetected) Ur Phencyclidine Scrn (NotDetected) Ur Amphetamines Screen (NotDetected) U Methamphetamines Scrn (NotDetected) U Benzodiazepines Scrn (NotDetected) Urine Cocaine Screen (NotDetected) U Marijuana (THC) Screen (NotDetected) 01/23/23 01/23/23 01/23/23 Range/Units 16:27 16:27 16:27 WBC (3.8-10.6) k/uL RBC (3.80-5.40) m/uL Hgb (11.4-16.0) gm/dL Hct (34.0-46.0) % MCV (80.0-100.0) fL MCH (25.0-35.0) pg MCHC (31.0-37.0) g/dL RDW (11.5-15.5) % Plt Count (150-450) k/uL MPV Neutrophils % % Lymphocytes % % Monocytes % % Eosinophils % % Basophils % % Neutrophils # (1.3-7.7) k/uL Lymphocytes # (1.0-4.8) k/uL Monocytes # (0-1.0) k/uL Eosinophils # (0-0.7) k/uL Basophils # (0-0.2) k/uL Anisocytosis PT (9.0-12.0) sec INR (<1.2) APTT (22.0-30.0) sec Sodium (137-145) mmol/L Potassium (3.5-5.1) mmol/L Chloride (98-107) mmol/L Carbon Dioxide (22-30) mmol/L Anion Gap mmol/L BUN (7-17) mg/dL Creatinine (0.52-1.04) mg/dL Est GFR (CKD-EPI)AfAm (>60 ml/min/1.73 sqM) Est GFR (CKD-EPI)NonAf (>60 ml/min/1.73 sqM) Glucose (74-99) mg/dL Lactic Ac Sepsis Rflx Plasma Lactic Acid Acmron 3.4 H* (0.7-2.0) mmol/L Calcium (8.4-10.2) mg/dL Magnesium (1.6-2.3) mg/dL Total Bilirubin (0.2-1.3) mg/dL AST (14-36) U/L ALT (4-34) U/L Alkaline Phosphatase (38-126) U/L Troponin I 0.016 (0.000-0.034) ng/mL NT-Pro-B Natriuret Pep 468 pg/mL Total Protein (6.3-8.2) g/dL Albumin (3.5-5.0) g/dL Urine Opiates Screen (NotDetected) Ur Oxycodone Screen (NotDetected) Urine Methadone Screen (NotDetected) Ur Propoxyphene Screen (NotDetected) Ur Barbiturates Screen (NotDetected) U Tricyclic Antidepress (NotDetected) Ur Phencyclidine Scrn (NotDetected) Ur Amphetamines Screen (NotDetected) U Methamphetamines Scrn (NotDetected) U Benzodiazepines Scrn (NotDetected) Urine Cocaine Screen (NotDetected) U Marijuana (THC) Screen (NotDetected) 01/23/23 01/23/23 01/23/23 Range/Units 16:59 17:10 20:10 WBC (3.8-10.6) k/uL RBC (3.80-5.40) m/uL Hgb (11.4-16.0) gm/dL Hct (34.0-46.0) % MCV (80.0-100.0) fL MCH (25.0-35.0) pg MCHC (31.0-37.0) g/dL RDW (11.5-15.5) % Plt Count (150-450) k/uL MPV Neutrophils % % Lymphocytes % % Monocytes % % Eosinophils % % Basophils % % Neutrophils # (1.3-7.7) k/uL Lymphocytes # (1.0-4.8) k/uL Monocytes # (0-1.0) k/uL Eosinophils # (0-0.7) k/uL Basophils # (0-0.2) k/uL Anisocytosis PT (9.0-12.0) sec INR (<1.2) APTT (22.0-30.0) sec Sodium (137-145) mmol/L Potassium (3.5-5.1) mmol/L Chloride (98-107) mmol/L Carbon Dioxide (22-30) mmol/L Anion Gap mmol/L BUN (7-17) mg/dL Creatinine (0.52-1.04) mg/dL Est GFR (CKD-EPI)AfAm (>60 ml/min/1.73 sqM) Est GFR (CKD-EPI)NonAf (>60 ml/min/1.73 sqM) Glucose (74-99) mg/dL Lactic Ac Sepsis Rflx Y Plasma Lactic Acid [place] 2.4 H* (0.7-2.0) mmol/L Calcium (8.4-10.2) mg/dL Magnesium (1.6-2.3) mg/dL Total Bilirubin (0.2-1.3) mg/dL AST (14-36) U/L ALT (4-34) U/L Alkaline Phosphatase (38-126) U/L Troponin I (0.000-0.034) ng/mL NT-Pro-B Natriuret Pep pg/mL Total Protein (6.3-8.2) g/dL Albumin (3.5-5.0) g/dL Urine Opiates Screen Detected H (NotDetected) Ur Oxycodone Screen Not Detected (NotDetected) Urine Methadone Screen Not Detected (NotDetected) Ur Propoxyphene Screen Not Detected (NotDetected) Ur Barbiturates Screen Not Detected (NotDetected) U Tricyclic Antidepress Not Detected (NotDetected) Ur Phencyclidine Scrn Not Detected (NotDetected) Ur Amphetamines Screen Not Detected (NotDetected) U Methamphetamines Scrn Not Detected (NotDetected) U Benzodiazepines Scrn Detected H (NotDetected) Urine Cocaine Screen Not Detected (NotDetected) U Marijuana (THC) Screen Not Detected (NotDetected) 01/23/23 Range/Units 20:45 WBC (3.8-10.6) k/uL RBC (3.80-5.40) m/uL Hgb (11.4-16.0) gm/dL Hct (34.0-46.0) % MCV (80.0-100.0) fL MCH (25.0-35.0) pg MCHC (31.0-37.0) g/dL RDW (11.5-15.5) % Plt Count (150-450) k/uL MPV Neutrophils % % Lymphocytes % % Monocytes % % Eosinophils % % Basophils % % Neutrophils # (1.3-7.7) k/uL Lymphocytes # (1.0-4.8) k/uL Monocytes # (0-1.0) k/uL Eosinophils # (0-0.7) k/uL Basophils # (0-0.2) k/uL Anisocytosis PT (9.0-12.0) sec INR (<1.2) APTT (22.0-30.0) sec Sodium (137-145) mmol/L Potassium (3.5-5.1) mmol/L Chloride (98-107) mmol/L Carbon Dioxide (22-30) mmol/L Anion Gap mmol/L BUN (7-17) mg/dL Creatinine (0.52-1.04) mg/dL Est GFR (CKD-EPI)AfAm (>60 ml/min/1.73 sqM) Est GFR (CKD-EPI)NonAf (>60 ml/min/1.73 sqM) Glucose (74-99) mg/dL Lactic Ac Sepsis Rflx Y Plasma Lactic Acid [place] (0.7-2.0) mmol/L Calcium (8.4-10.2) mg/dL Magnesium (1.6-2.3) mg/dL Total Bilirubin (0.2-1.3) mg/dL AST (14-36) U/L ALT (4-34) U/L Alkaline Phosphatase (38-126) U/L Troponin I (0.000-0.034) ng/mL NT-Pro-B Natriuret Pep pg/mL Total Protein (6.3-8.2) g/dL Albumin (3.5-5.0) g/dL Urine Opiates Screen (NotDetected) Ur Oxycodone Screen (NotDetected) Urine Methadone Screen (NotDetected) Ur Propoxyphene Screen (NotDetected) Ur Barbiturates Screen (NotDetected) U Tricyclic Antidepress (NotDetected) Ur Phencyclidine Scrn (NotDetected) Ur Amphetamines Screen (NotDetected) U Methamphetamines Scrn (NotDetected) U Benzodiazepines Scrn (NotDetected) Urine Cocaine Screen (NotDetected) U Marijuana (THC) Screen (NotDetected) - EKG Data EKG Comments: EKG demonstrates sinus rhythm with a rate of 86. LA interval 142. Distress 91. QTC of 406. No acute ST segment elevations. ST depression 1, aVL and V4 through V6. EKG morphology similar in appearance to last EKG (Lesia Salas) Disposition <Alexsander Currie - Last Filed: 01/23/23 14:22> Is patient prescribed a controlled substance at d/c from ED?: No Time of Disposition: 01:00 <Santana Grimes - Last Filed: 01/24/23 01:29> Is patient prescribed a controlled substance at d/c from ED?: No Time of Disposition: 17:08 <Lesia Salas - Last Filed: 01/28/23 15:05> Clinical Impression: Alcohol intoxication, Depression, Suicidal ideation Disposition: HOME SELF-CARE Condition: Stable Instructions (If sedation given, give patient instructions): Alcohol Intoxication (DC), Help Prevent Suicide (ED) Referrals: Miya Johnson MD [Primary Care Provider] - 1-2 days
--- NOTE | 2023-01-23 14:51 | XR ---
EXAMINATION TYPE: XR chest 2V DATE OF EXAM: 01/23/2023 COMPARISON: NONE TECHNIQUE: PA and lateral views submitted. HISTORY: Shortness of breath FINDINGS: The lungs are clear and there is no pneumothorax, pleural effusion, or focal pneumonia. Heart size normal and no overt failure. Osseous structures demonstrate hypertrophic and degenerative changes of the spine. AC joint arthropathy. Atherosclerotic change aorta. Biapical pleural thickening. IMPRESSION: 1. No acute process.
[2023-01-23 16:48] LABS: INR 0.9 (<1.2); Partial Thromboplastin Time 25.3 sec (22.0-30.0)
[2023-01-23 16:52] LABS: Anisocytosis Slight; Basophils # (A) 0.1 k/uL (0-0.2); Basophils % (A) 2 %; Eosinophils # (A) 0.1 k/uL (0-0.7); Eosinophils % (A) 2 %; HCT 34.3 % (34.0-46.0); HGB 11.2 gm/dL (11.4-16.0); Lymphocytes % (A) 33 %; MCH 30.3 pg (25.0-35.0); MCHC 32.8 g/dL (31.0-37.0); MCV 92.3 fL (80.0-100.0); Monocytes # (A) 0.2 k/uL (0-1.0); Monocytes % (A) 3 %; Neutrophils # (A) 3.5 k/uL (1.3-7.7); Neutrophils % (A) 57 %; Platelet Count 182 k/uL (150-450); RBC 3.71 m/uL (3.80-5.40); RDW 17.8 % (11.5-15.5); WBC 6.2 k/uL (3.8-10.6)
[2023-01-23 16:56] LABS: ALT 31 U/L (4-34); AST 36 U/L (14-36); African American GFR (CKD) >90 (>60 ml/min/1.73 sqM); Albumin 3.8 g/dL (3.5-5.0); Alkaline Phosphatase 160 U/L (38-126); Anion Gap 11 mmol/L; Blood Urea Nitrogen 7 mg/dL (7-17); Calcium 8.1 mg/dL (8.4-10.2); Carbon Dioxide 26 mmol/L (22-30); Chloride 101 mmol/L (98-107); Glucose 109 mg/dL (74-99); Magnesium 1.8 mg/dL (1.6-2.3); Non-African American GFR(CKD) >90 (>60 ml/min/1.73 sqM); Potassium 3.8 mmol/L (3.5-5.1); Sodium 138 mmol/L (137-145); Total Bilirubin 0.2 mg/dL (0.2-1.3); Total Protein 6.3 g/dL (6.3-8.2)
[2023-01-23] MEDS ORDERED: methylPREDNISolone SOD SUCCI 125 MG/2 ML VIAL IV STA (17:13)
[2023-01-23 17:32] LABS: Amphetamine Screen,Urine Not Detected (NotDetected); Barbiturate Screen,Urine Not Detected (NotDetected); Benzodiazepines Screen,Urine Detected (NotDetected); Cocaine Screen,Urine Not Detected (NotDetected); Methadone Screen, Urine Not Detected (NotDetected); Opiate Screen,Urine Detected (NotDetected); Oxycodone Screen, Urine Not Detected (NotDetected); Phencyclidine Screen,Urine Not Detected (NotDetected); Tricyclic Antidepressant,Urine Not Detected (NotDetected); Urn Cannabinoid Scrn Not Detected (NotDetected)
[2023-01-23 18:12] VITALS: TEMP 98.2
[2023-01-23] MEDS ORDERED: SODIUM CHLORIDE 0.9% 1,000 ML IV ONE (19:16)
[2023-01-23] MEDS ORDERED: ONDANSETRON 4 MG/2 ML VIAL IVP STA (22:18)
[2023-01-24 01:57] VITALS: BP 137/86; PULSE 86; RESP 18
== END 2023-01-24 01:55 | disposition home or self-care (01) ==
LOC: EC 13:22
DX: R45.851 Suicidal ideations (principal); F10.129 Alcohol abuse with intoxication, unspecified; F32.A Depression, unspecified; J44.9 Chronic obstructive pulmonary disease, unspecified; I10 Essential (primary) hypertension; I25.2 Old myocardial infarction; Z86.73 Personal history of transient ischemic attack (TIA), and cerebral infarction without residual deficits; I25.10 Atherosclerotic heart disease of native coronary artery without angina pectoris; F41.9 Anxiety disorder, unspecified; F17.200 Nicotine dependence, unspecified, uncomplicated; F12.90 Cannabis use, unspecified, uncomplicated; Z88.7 Allergy status to serum and vaccine; Z91.018 Allergy to other foods; Z88.5 Allergy status to narcotic agent; Z91.040 Latex allergy status; Z79.51 Long term (current) use of inhaled steroids; Z79.82 Long term (current) use of aspirin; Z79.899 Other long term (current) drug therapy
CPT/HCPCS: 82075; 36415; 93005; 83880; 80053; 83605; 83735; 84484; 85025; 85610; 85730; 80306; 71046; 99285; 96374; 96375; 96361; J2930; J2405

== ENCOUNTER 2023-01-28 04:21 | Emergency (ER) | payer OTHER ==
[2023-01-28 04:29] VITALS: RESP 16; TEMP 98.1
--- NOTE | 2023-01-28 05:01 | ED ---
General Adult HPI - General Chief complaint: Extremity Problem,Nontraumatic Stated complaint: Left Shoulder Pain Time Seen by Provider: 01/28/23 04:30 Source: patient Mode of arrival: EMS Limitations: no limitations - History of Present Illness Initial comments: Dictation was produced using [employer] dictation software. please excuse any grammatical, word or spelling errors. Chief Complaint: 62-year-old male presents emergency department for left shoulder pain History of Present Illness: Patient is 62-year-old male presents with acute on chronic left shoulder pain. 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 She states that she's been dealing with shoulder issues. Patient denies any trauma to the shoulder. She says she slept on it wrong. Denies any numbness or paresthesias to the left upper extremity. The ROS documented in this emergency department record has been reviewed and confirmed by me. Those systems with pertinent positive or negative responses have been documented in the HPI. All other systems are other negative and/or noncontributory. PHYSICAL EXAM: General Impression: Alert and oriented x3, not in acute distress HEENT: Normocephalic atraumatic, extra-ocular movements intact, pupils equal and reactive to light bilaterally, mucous membranes moist. Cardiovascular: Heart regular rate and rhythm Chest: Able to complete full sentences, no retractions, no tachypnea Musculoskeletal: Pulses present and equal in all extremities, no peripheral edema Motor: no focal deficits noted Neurological: CN II-XII grossly intact, no focal motor or sensory deficits noted Skin: Intact with no visualized rashes Left upper extremity: Passive range of motion intact. Movement however is antalgic. ED course: 62-year-old female presents emergency department for acute on chronic left shoulder pain. Vital signs upon arrival are within acceptable limits. Nursing notes and chart review was performed Was pt. sent in by a medical professional or institution (, PA, [employer], urgent care, hospital, or [facility]...) When possible be specific @ -No Did you speak to anyone other than the patient for history (EMS, parent, family, police, friend...)? What history was obtained from this source @ -No Did you review nursing and triage notes (agree or disagree)? Why? @ -I reviewed and agree with nursing and triage notes Were old charts reviewed (outside hosp., previous admission, EMS record, old EKG, old radiological studies, urgent care reports/EKG's, [facility] records)? Report findings @ -No old charts were reviewed Differential Diagnosis (chest pain, altered mental status, abdominal pain women, abdominal pain men, vaginal bleeding, musculoskeletal, weakness, fever, dyspnea, syncope, headache, dizziness, GI bleed, back pain, seizure, CVA, palpatations, mental health)? @ -Shoulder dislocation, shoulder sprain, clavicular fracture, frozen shoulder EKG interpreted by me (3pts min.). @ -None done X-rays interpreted by me (1pt min.). @ -Left shoulder x-ray shows no acute processes. He does appear to be chronic acromioclavicular joint widening CT interpreted by me (1pt min.). @ -None done U/S interpreted by me (1pt. min.). @ -None done What testing was considered but not performed or refused? (CT, X-rays, U/S, labs)? Why? @ -None What meds were considered but not given or refused? Why? @ -None Did you discuss the management of the patient with other professionals (professionals i.e. , PA, [employer], lab, RT, psych nurse, outreach and education social worker, identification printing machine setter, teacher, booking officer, foster care case manager)? Give summary @ -No Was smoking cessation discussed for >3mins.? @ -No Was critical care preformed (if so, how long)? @ -No Were there social determinants of health that impacted care today? How? (Homelessness, low income, unemployed, alcoholism, drug addiction, transportation, low edu. Level, literacy, decrease access to med. care, senior care, rehab)? @ -No Was there de-escalation of care discussed even if they declined (Discuss DNR or withdrawal of care, Hospice)? DNR status @ -No What co-morbidities impacted this encounter? (DM, HTN, Smoking, COPD, CAD, Cancer, CVA, ARF, Chemo, Hep., AIDS, mental health diagnosis, sleep apnea, morbid obesity)? @ -None Was patient admitted / discharged? Hospital course, mention meds given and route, prescriptions, significant lab abnormalities, going to OR and other pertinent info. @ -62-year-old female presents with acute on chronic shoulder pain. X-ray is unremarkable. Patient discharged. Undiagnosed new problem with uncertain prognosis? @ -No Drug Therapy requiring intensive monitoring for toxicity (Heparin, Nitro, Insulin, Cardizem)? @ -No Were any procedures done? @ -No Diagnosis/symptom? Acute, or Chronic, or Acute on Chronic? Uncomplicated (without systemic symptoms) or Complicated (systemic symptoms)? @ -Acute on chronic shoulder pain Side effects of treatment? @ -No Exacerbation, Progression, or Severe Exacerbation? @ -No Poses a threat to life or bodily function? How? (Chest pain, [place], [place], pneumonia, PE, COPD, DKA, ARF, appy, cholecystitis, CVA, Diverticulitis, Homicidal, Suicidal, threat to staff... and all critical care pts) @ -No - Related Data Home Medications Medication Instructions Recorded Confirmed Aspirin EC [Ecotrin Low Dose] 81 mg PO DAILY 02/11/19 01/23/23 Metoprolol Succinate (ER) [Toprol 50 mg PO DAILY 06/13/21 01/23/23 XL] Pantoprazole [Protonix] 40 mg PO DAILY 06/13/21 01/23/23 Fluticasone Nasal [place] [Flonase 1 spr EA NOSTRIL DAILY 02/14/22 01/23/23 Nasal [place]] Magnesium Oxide 400 mg PO DAILY 02/14/22 01/23/23 Simvastatin [Zocor] 40 mg PO HS 07/03/22 01/23/23 Vitamin B Complex 1 cap PO DAILY 07/03/22 01/23/23 Brimonidine Tartrate [Alphagan P 1 drop BOTH EYES BID 11/10/22 01/23/23 0.2% Ophth Soln] Budesonide-Formot 160-4.5 Mcg 2 puff INHALATION RT-BID 11/10/22 01/23/23 [Symbicort 160-4.5 Mcg Inhaler] HYDROcodone/APAP 7.5-325MG [[place] 1 tab PO Q6H PRN 11/10/22 01/23/23 7.5-325] Isosorbide Mononitrate ER [Imdur] 30 mg PO DAILY 11/10/22 01/23/23 Ketorolac [Toradol] 10 mg PO Q8H PRN 11/10/22 01/23/23 Ticagrelor [Brilinta] 90 mg PO BID 01/14/23 01/23/23 chlordiazePOXIDE HCl [Librium] See Taper PO DIRECTED PRN 01/23/23 01/23/23 Previous Rx's Medication Instructions Recorded Folic Acid 1 mg PO DAILY #30 tab 06/13/22 Ondansetron Odt [Zofran ODT] 4 mg PO Q8HR PRN #20 tab 06/13/22 Cyclobenzaprine [Flexeril] 10 mg PO TID PRN #20 tab 07/17/22 Nitroglycerin Sl Tabs [Nitrostat] 0.4 mg SUBLINGUAL Q5M PRN #30 tab 08/08/22 Albuterol Inhaler [Ventolin Hfa 2 puff INHALATION RT-QID PRN 30 01/22/23 Inhaler] Days #1 each Nicotine 21Mg/24Hr Patch [Habitrol] 1 patch TRANSDERM DAILY patch 01/22/23 Thiamine [Vitamin B-1] 100 mg PO DAILY #30 tablet 01/22/23 Allergies Allergy/AdvReac Type Severity Reaction Status Date / Time latex Allergy Rash/Hives Verified 01/28/23 04:24 tomato Allergy Diarrhea Verified 01/28/23 04:24 Influenza Virus Vaccines AdvReac Nausea & Verified 01/28/23 04:24 Vomiting morphine AdvReac Nausea & Verified 01/28/23 04:24 Vomiting Review of Systems ROS Statement: Those systems with pertinent positive or pertinent negative responses have been documented in the HPI. ROS Other: All systems not noted in ROS Statement are negative. Past Medical History Past Medical History: Asthma, Coronary Artery Disease (CAD), COPD, CVA/TIA, Eye Disorder, Hypertension, Liver Disease, Myocardial Infarction (VA), Seizure Disorder, Vascular Disorder Additional Past Medical History / Comment(s): Pt recently admitted to [facility] for diarrhea, ETOH abuse. 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 soon Last Myocardial Infarction Date:: aug 2018 History of Any Multi-Drug Resistant Organisms: None Reported Past Surgical History: Cholecystectomy, Heart Catheterization, Orthopedic Surgery Additional Past Surgical History / Comment(s): L caratid stent, bilateral knee surgeries for tendon repair, bartholian cyst removed bilateral wrists, cataracts Past Anesthesia/Blood Transfusion Reactions: Motion Sickness Additional Past Anesthesia/Blood Transfusion Reaction / Comment(s): Pt has received blood without reaction. Past Psychological History: Anxiety, Depression Smoking Status: Current every day smoker Past Alcohol Use History: Abuse, Daily, Heavy Past Drug Use History: Marijuana - Past Family History Mother Family Medical History: Cancer, Congestive Heart Failure (CHF), Coronary Artery Disease (CAD), Hyperlipidemia Additional Family Medical History / Comment(s): Mother at age 85 from lung cancer. Father Family Medical History: Cancer, COPD Additional Family Medical History / Comment(s): Father at age 63 from lung cancer. Brother(s) Additional Family Medical History / Comment(s): Patient has a total of 7 siblings. 5 are alive without any major medical problems she is aware of. 2 siblings have one from alcohol abuse and 1. Coronary artery disease. Daughter(s) Additional Family Medical History / Comment(s): Patient has one daughter with no major medical problems. General Exam Limitations: no limitations Course Vital Signs 01/28/23 04:25 Temperature 98.1 F Pulse Rate 87 Respiratory 16 Rate Blood Pressure 92/67 O2 Sat by Pulse 97 Oximetry Disposition Clinical Impression: Shoulder pain Disposition: HOME SELF-CARE Condition: Good Instructions (If sedation given, give patient instructions): Shoulder Pain (ED) Is patient prescribed a controlled substance at d/c from ED?: No Referrals: Miya Johnson MD [Primary Care Provider] - 1-2 days Time of Disposition: 05:43
--- NOTE | 2023-01-28 05:31 | XR ---
EXAMINATION TYPE: XR shoulder complete LT DATE OF EXAM: 01/28/2023 COMPARISON: NONE HISTORY: Shoulder pain TECHNIQUE: 3 views FINDINGS: The glenohumeral joint is intact. I see no fracture nor dislocation. There is slight wideni ng of the AC joint space. No pathologic calcification. IMPRESSION: No fracture. There is slight widening of the AC joint space also present on old chest x-r ay of 01/23/2023 and probably related to old injury. No fracture.
[2023-01-28] MEDS ORDERED: HYDROcodone/APAP 5-325MG 1 EACH TAB PO STA (05:43)
[2023-01-28 06:19] VITALS: BP 105/68; PULSE 82
== END 2023-01-28 05:55 | disposition home or self-care (01) ==
LOC: EC 04:21
DX: M25.512 Pain in left shoulder (principal); J44.9 Chronic obstructive pulmonary disease, unspecified; I25.10 Atherosclerotic heart disease of native coronary artery without angina pectoris; I10 Essential (primary) hypertension; I25.2 Old myocardial infarction; F41.9 Anxiety disorder, unspecified; F32.A Depression, unspecified; F17.200 Nicotine dependence, unspecified, uncomplicated; F12.90 Cannabis use, unspecified, uncomplicated; Z91.040 Latex allergy status; Z91.018 Allergy to other foods; Z88.7 Allergy status to serum and vaccine; Z88.5 Allergy status to narcotic agent; Z79.82 Long term (current) use of aspirin; Z79.899 Other long term (current) drug therapy; Z86.73 Personal history of transient ischemic attack (TIA), and cerebral infarction without residual deficits; Z79.51 Long term (current) use of inhaled steroids
CPT/HCPCS: 99284

== ENCOUNTER 2023-02-06 08:04 | Inpatient (IN) | payer OTHER ==
[2023-02-06] MEDS ORDERED: ASPIRIN 81 MG PO STA (08:46)
--- NOTE | 2023-02-06 08:50 | ED ---
General Adult HPI - General Chief complaint: Chest Pain Stated complaint: LEFT ARM PAIN Time Seen by Provider: 02/06/23 08:07 Source: patient, EMS Mode of arrival: EMS Limitations: no limitations - History of Present Illness Initial comments: Dictation was produced using [employer] dictation software. please excuse any grammatical, word or spelling errors. Chief Complaint: 62-year-old male presents emergency with chest pain History of Present Illness: 7-9-amlc-old female she has past medical history of chronic left shoulder pain. States that her shoulders been acting up however sinus associated with chest tightness. She states that the tightness is located to the left anterior chest. States that it is associated with left upper extremity symptoms. States that her symptoms count of remind her of heart attack she expressing the past. Patient's history coronary artery disease. Denies any fevers. No associated nausea or diaphoresis. The ROS documented in this emergency department record has been reviewed and confirmed by me. Those systems with pertinent positive or negative responses have been documented in the HPI. All other systems are other negative and/or noncontributory. PHYSICAL EXAM: General Impression: Alert and oriented x3, not in acute distress HEENT: Normocephalic atraumatic, extra-ocular movements intact, pupils equal and reactive to light bilaterally, mucous membranes moist. Cardiovascular: Heart regular rate and rhythm Chest: Able to complete full sentences, no retractions, no tachypnea Abdomen: abdomen soft, non-tender, non-distended, no organomegaly Musculoskeletal: Pulses present and equal in all extremities, no peripheral edema Motor: no focal deficits noted Neurological: CN II-XII grossly intact, no focal motor or sensory deficits noted Skin: Intact with no visualized rashes Psych: Normal affect and mood ED course: 62-year-old female presents emergency department for atypical chest with typical features. She has multiple high-risk features. Vital signs upon arrival are within acceptable limits. EKG does not show signs of infarction or ischemia. Nursing notes and chart review was performed EKG interpreted by me: Ventricular rate 90, sinus rhythm,. Interval 152, QRS 90, QTC 429. No [place] prolongation, no QTC prolongation, no ST or T-wave changes noted. EKG compared to 01/24/2023 showing no changes. Overall, this EKG is unremarkable Was pt. sent in by a medical professional or institution (Dr., PA, WELL REACTIVATOR OPERATOR, urgent care, hospital, or senior living...) When possible be specific @ -No Did you speak to anyone other than the patient for history (EMS, parent, family, police, friend...)? What history was obtained from this source @ -No Did you review nursing and triage notes (agree or disagree)? Why? @ -I reviewed and agree with nursing and triage notes Were old charts reviewed (outside hosp., previous admission, EMS record, old EKG, old radiological studies, urgent care reports/EKG's, senior living records)? Report findings @ -Prior cardiology consultation notes reviewed Differential Diagnosis (chest pain, altered mental status, abdominal pain women, abdominal pain men, vaginal bleeding, musculoskeletal, weakness, fever, dyspnea, syncope, headache, dizziness, GI bleed, back pain, seizure, CVA, palpatations, mental health)? @ -Differential Chest Pain: Stable Angina, Unstable Angina, STEMI, NSTEMI Aortic Dissection, Pneumothorax, Musculoskeletal, Esophageal Spasm GERD, Cholecystitis, Pancreatitis, Zoster, this is not meant to be an all-inclusive list. EKG interpreted by me (3pts min.). @ -See above X-rays interpreted by me (1pt min.). @ -Nonacute CT interpreted by me (1pt min.). @ -None done U/S interpreted by me (1pt. min.). @ -None done What testing was considered but not performed or refused? (CT, X-rays, U/S, labs)? Why? @ -None What meds were considered but not given or refused? Why? @ -None Did you discuss the management of the patient with other professionals (luz calix i.eYESSY Mandel Dr[address] WELL REACTIVATOR OPERATOR, lab, RT, psych nurse, foster care social worker, radio rigger, teacher, hospital chief executive officer, community case manager)? Give summary @ -Case discussed with [facility] hospitalist group for admission Was smoking cessation discussed for >3mins.? @ -No Was critical care preformed (if so, how long)? @ -No Were there social determinants of health that impacted care today? How? (Homelessness, low income, unemployed, alcoholism, drug addiction, transportation, low edu. Level, literacy, decrease access to med. care, custodial, rehab)? @ -History of alcoholism Was there de-escalation of care discussed even if they declined (Discuss DNR or withdrawal of care, Hospice)? DNR status @ -No What co-morbidities impacted this encounter? (DM, HTN, Smoking, COPD, CAD, Cancer, CVA, ARF, Chemo, Hep., AIDS, mental health diagnosis, sleep apnea, morbid obesity)? @ -History of chronic left shoulder pain Was patient admitted / discharged? Hospital course, mention meds given and route, prescriptions, significant lab abnormalities, going to OR and other pertinent info. @ -62-year-old female presents emergency department with atypical chest pain with typical features. EKG was nonischemic. Patient has troponin of 0.027. Stress to be slightly higher than her baseline. She does have risk factors for coronary artery disease. Reevaluated bedside 10:22 AM. It's hard to the friend she ate if this is secondary to her chronic left shoulder pain. Given patient's clinical features she'll be admitted observation for cardiac monitoring, serial troponins and cardiology consultation. Undiagnosed new problem with uncertain prognosis? @ -No Drug Therapy requiring intensive monitoring for toxicity (Heparin, Nitro, Insulin, Cardizem)? @ -No Were any procedures done? @ -No Diagnosis/symptom? Acute, or Chronic, or Acute on Chronic? Uncomplicated (without systemic symptoms) or Complicated (systemic symptoms)? @ -1. Acute uncomplicated atypical chest pain typical features Side effects of treatment? @ -No Exacerbation, Progression, or Severe Exacerbation? @ -No Poses a threat to life or bodily function? How? (Chest pain, [place], [place], pneumonia, PE, COPD, DKA, ARF, appy, cholecystitis, CVA, Diverticulitis, Homicidal, Suic idal, threat to staff... and all critical care pts) @ -Yes - Related Data Home Medications Medication Instructions Recorded Confirmed Aspirin EC [Ecotrin Low Dose] 81 mg PO DAILY 02/11/19 02/06/23 Metoprolol Succinate (ER) [Toprol 50 mg PO DAILY 06/13/21 02/06/23 XL] Pantoprazole [Protonix] 40 mg PO DAILY 06/13/21 02/06/23 Fluticasone Nasal [place] [Flonase 1 spr EA NOSTRIL DAILY 02/14/22 02/06/23 Nasal [place]] Magnesium Oxide 400 mg PO DAILY 02/14/22 02/06/23 Simvastatin [Zocor] 40 mg PO HS 07/03/22 02/06/23 Vitamin B Complex 1 cap PO DAILY 07/03/22 02/06/23 Brimonidine Tartrate [Alphagan P 1 drop BOTH EYES BID 11/10/22 02/06/23 0.2% Ophth Soln] Budesonide-Formot 160-4.5 Mcg 2 puff INHALATION RT-BID 11/10/22 02/06/23 [Symbicort 160-4.5 Mcg Inhaler] HYDROcodone/APAP 7.5-325MG [[place] 1 tab PO Q6H PRN 11/10/22 02/06/23 7.5-325] Isosorbide Mononitrate ER [Imdur] 30 mg PO DAILY 11/10/22 02/06/23 Ketorolac [Toradol] 10 mg PO Q8H PRN 11/10/22 02/06/23 Ticagrelor [Brilinta] 90 mg PO BID 01/14/23 02/06/23 Nitroglycerin Sl Tabs [Nitrostat] 0.4 mg SL Q5M PRN 02/06/23 02/06/23 Previous Rx's Medication Instructions Recorded Folic Acid 1 mg PO DAILY #30 tab 06/13/22 Ondansetron Odt [Zofran ODT] 4 mg PO Q8HR PRN #20 tab 06/13/22 Cyclobenzaprine [Flexeril] 10 mg PO TID PRN #20 tab 07/17/22 Albuterol Inhaler [Ventolin Hfa 2 puff INHALATION RT-QID PRN 30 01/22/23 Inhaler] Days #1 each Thiamine [Vitamin B-1] 100 mg PO DAILY #30 tablet 01/22/23 Allergies Allergy/AdvReac Type Severity Reaction Status Date / Time latex Allergy Rash/Hives Verified 02/06/23 09:26 tomato Allergy Diarrhea Verified 02/06/23 09:26 Influenza Virus Vaccines AdvReac Nausea & Verified 02/06/23 09:26 Vomiting morphine AdvReac Nausea & Verified 02/06/23 09:26 Vomiting Review of Systems ROS Statement: Those systems with pertinent positive or pertinent negative responses have been documented in the HPI. ROS Other: All systems not noted in ROS Statement are negative. Past Medical History Past Medical History: Asthma, Coronary Artery Disease (CAD), COPD, CVA/TIA, Eye Disorder, Hypertension, Liver Disease, Myocardial Infarction ([place]), Seizure Disorder, Vascular Disorder Additional Past Medical History / Comment(s): Pt recently admitted to [facility] for diarrhea, ETOH abuse. 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 soon Last Myocardial Infarction Date:: aug 2018 History of Any Multi-Drug Resistant Organisms: None Reported Past Surgical History: Cholecystectomy, Heart Catheterization, Orthopedic Surgery Additional Past Surgical History / Comment(s): L caratid stent, bilateral knee surgeries for tendon repair, bartholian cyst removed bilateral wrists, cataracts Past Anesthesia/Blood Transfusion Reactions: Motion Sickness Additional Past Anesthesia/Blood Transfusion Reaction / Comment(s): Pt has recei monster blood without reaction. Past Psychological History: Anxiety, Depression Smoking Status: Current every day smoker Past Alcohol Use History: Abuse, Daily, Heavy Past Drug Use History: Marijuana - Past Family History Mother Family Medical History: Cancer, Congestive Heart Failure (CHF), Coronary Artery Disease (CAD), Hyperlipidemia Additional Family Medical History / Comment(s): Mother at age 85 from lung cancer. Father Family Medical History: Cancer, COPD Additional Family Medical History / Comment(s): Father at age 63 from lung cancer. Brother(s) Additional Family Medical History / Comment(s): Patient has a total of 7 siblings. 5 are alive without any major medical problems she is aware of. 2 siblings have one from alcohol abuse and 1. Coronary artery disease. Daughter(s) Additional Family Medical History / Comment(s): Patient has one daughter with no major medical problems. General Exam Limitations: no limitations Course Vital Signs 02/06/23 02/06/23 02/06/23 08:06 09:00 09:47 Temperature 97.6 F Pulse Rate 95 96 Pulse Rate [ 91 Left Supine Pulse Oximetery ] Respiratory 18 Rate Blood Pressure 140/121 137/115 O2 Sat by Pulse 98 97 Oximetry 02/06/23 10:07 Temperature Pulse Rate 93 Pulse Rate [ Left Supine Pulse Oximetery ] Respiratory Rate Blood Pressure 136/108 O2 Sat by Pulse 97 Oximetry Medical Decision Making - Lab Data Result diagrams: 02/06/23 08:57 02/06/23 08:57 Lab Results 02/06/23 02/06/23 02/06/23 Range/Units 08:57 08:57 08:57 WBC 7.4 (3.8-10.6) k/uL RBC 3.90 (3.80-5.40) m/uL Hgb 12.6 (11.4-16.0) gm/dL Hct 36.1 (34.0-46.0) % MCV 92.8 (80.0-100.0) fL MCH 32.2 (25.0-35.0) pg MCHC 34.7 (31.0-37.0) g/dL RDW 18.1 H (11.5-15.5) % Plt Count 100 L (150-450) k/uL MPV 8.8 Neutrophils % 66 % Lymphocytes % 23 % Monocytes % 5 % Eosinophils % 2 % Basophils % 1 % Neutrophils # 4.9 (1.3-7.7) k/uL Lymphocytes # 1.7 (1.0-4.8) k/uL Monocytes # 0.4 (0-1.0) k/uL Eosinophils # 0.1 (0-0.7) k/uL Basophils # 0.1 (0-0.2) k/uL Anisocytosis Slight PT 10.1 (9.0-12.0) sec INR 0.9 (<1.2) APTT 23.7 (22.0-30.0) sec Sodium 131 L (137-145) mmol/L Potassium 3.7 (3.5-5.1) mmol/L Chloride 95 L (98-107) mmol/L Carbon Dioxide 30 (22-30) mmol/L Anion Gap 6 mmol/L BUN 7 (7-17) mg/dL Creatinine 0.45 L (0.52-1.04) mg/dL Est GFR (CKD-EPI)AfAm >90 (>60 ml/min/1.73 sqM) Est GFR (CKD-EPI)NonAf >90 (>60 ml/min/1.73 sqM) Glucose 113 H (74-99) mg/dL Calcium 9.1 (8.4-10.2) mg/dL Magnesium 2.0 (1.6-2.3) mg/dL Total Bilirubin 0.5 (0.2-1.3) mg/dL AST 54 H (14-36) U/L ALT 52 H (4-34) U/L Alkaline Phosphatase 98 (38-126) U/L Troponin I (0.000-0.034) ng/mL Total Protein 6.4 (6.3-8.2) g/dL Albumin 3.8 (3.5-5.0) g/dL 02/06/23 Range/Units 08:57 WBC (3.8-10.6) k/uL RBC (3.80-5.40) m/uL Hgb (11.4-16.0) gm/dL Hct (34.0-46.0) % MCV (80.0-100.0) fL MCH (25.0-35.0) pg MCHC (31.0-37.0) g/dL RDW (11.5-15.5) % Plt Count (150-450) k/uL MPV Neutrophils % % Lymphocytes % % Monocytes % % Eosinophils % % Basophils % % Neutrophils # (1.3-7.7) k/uL Lymphocytes # (1.0-4.8) k/uL Monocytes # (0-1.0) k/uL Eosinophils # (0-0.7) k/uL Basophils # (0-0.2) k/uL Anisocytosis PT (9.0-12.0) sec INR (<1.2) APTT (22.0-30.0) sec Sodium (137-145) mmol/L Potassium (3.5-5.1) mmol/L Chloride (98-107) mmol/L Carbon Dioxide (22-30) mmol/L Anion Gap mmol/L BUN (7-17) mg/dL Creatinine (0.52-1.04) mg/dL Est GFR (CKD-EPI)AfAm (>60 ml/min/1.73 sqM) Est GFR (CKD-EPI)NonAf (>60 ml/min/1.73 sqM) Glucose (74-99) mg/dL Calcium (8.4-10.2) mg/dL Magnesium (1.6-2.3) mg/dL Total Bilirubin (0.2-1.3) mg/dL AST (14-36) U/L ALT (4-34) U/L Alkaline Phosphatase (38-126) U/L Troponin I 0.027 (0.000-0.034) ng/mL Total Protein (6.3-8.2) g/dL Albumin (3.5-5.0) g/dL Disposition Clinical Impression: Chest pain Disposition: ADMITTED IP TO THIS [facility] Condition: Fair Referrals: Miya Johnson MD [Primary Care Provider] - 1-2 days Decision Time: 10:00
--- NOTE | 2023-02-06 09:35 | XR ---
EXAMINATION TYPE: XR chest 2V DATE OF EXAM: 02/06/2023 COMPARISON: 01/23/2023 HISTORY: Shortness of breath TECHNIQUE: Frontal and lateral views of the chest are obtained. FINDINGS: Scattered senescent parenchymal changes noted. Hyperinflation compatible with COPD. No evidence for infiltrate. No evidence for atelectasis. Heart size is stable. Mediastinal structures are stable and grossly unremarkable. No evidence for hilar prominence. Degenerative changes dorsal spine. IMPRESSION: 1. No evidence for acute pulmonary disease.
[2023-02-06 09:37] LABS: Anisocytosis Slight; Basophils # (A) 0.1 k/uL (0-0.2); Basophils % (A) 1 %; Eosinophils # (A) 0.1 k/uL (0-0.7); Eosinophils % (A) 2 %; HCT 36.1 % (34.0-46.0); HGB 12.6 gm/dL (11.4-16.0); Lymphocytes # (A) 1.7 k/uL (1.0-4.8); Lymphocytes % (A) 23 %; MCH 32.2 pg (25.0-35.0); MCHC 34.7 g/dL (31.0-37.0); MCV 92.8 fL (80.0-100.0); Mean Platelet Volume 8.8; Monocytes # (A) 0.4 k/uL (0-1.0); Monocytes % (A) 5 %; Neutrophils # (A) 4.9 k/uL (1.3-7.7); Neutrophils % (A) 66 %; Platelet Count 100 k/uL (150-450); RDW 18.1 % (11.5-15.5); WBC 7.4 k/uL (3.8-10.6)
[2023-02-06 09:39] LABS: INR 0.9 (<1.2); Partial Thromboplastin Time 23.7 sec (22.0-30.0); Prothrombin Time 10.1 sec (9.0-12.0)
[2023-02-06 09:44] LABS: ALT 52 U/L (4-34); African American GFR (CKD) >90 (>60 ml/min/1.73 sqM); Albumin 3.8 g/dL (3.5-5.0); Anion Gap 6 mmol/L; Blood Urea Nitrogen 7 mg/dL (7-17); Calcium 9.1 mg/dL (8.4-10.2); Carbon Dioxide 30 mmol/L (22-30); Chloride 95 mmol/L (98-107); Glucose 113 mg/dL (74-99); Non-African American GFR(CKD) >90 (>60 ml/min/1.73 sqM); Sodium 131 mmol/L (137-145); Total Bilirubin 0.5 mg/dL (0.2-1.3); Total Protein 6.4 g/dL (6.3-8.2)
[2023-02-06 09:57] LABS: AST 54 U/L (14-36); Alkaline Phosphatase 98 U/L (38-126); Potassium 3.7 mmol/L (3.5-5.1)
[2023-02-06] MEDS ORDERED: NITROGLYCERIN SL TABS 0.4 MG TAB SUBLINGUAL PRN ×2 (10:19→11:25)
[2023-02-06] MEDS ORDERED: ALBUTEROL HFA INHALER INHALATION PRN (11:25)
[2023-02-06] MEDS ORDERED: ONDANSETRON ODT 4 MG TAB PO PRN (11:25)
[2023-02-06] MEDS: SODIUM CHLORIDE 0.9% 1,000 ML IV SCH ×2 (11:33→20:47)
--- NOTE | 2023-02-06 11:37 | P.HPIM ---
History of Present Illness 62-year-old female with a known history of coronary artery disease and chronic total occlusion of RCA, had a recent stress test a few months ago which did not show any significant abnormality and was admitted with chest pain earlier this month was a valid by cardiology at that time echocardiogram was done and was subsequently cleared for discharge came in with the complaints of left shoulder pain, neck pain pressure-like chest pain. Patient has some numbness in the left arm as well. Patient denied any diaphoresis shortness of breath associated with that patient continues to drink alcohol but not on regular basis she is trying to quit alcohol. Patient had a follow-up with orthopedic surgery as an outpatient for left shoulder pain. Patient to her pain medications. Patient chest pain is reproducible EKG showed some diffuse ST depression from V3 to V6 slightly more pronounced than last time REVIEW OF SYSTEMS: CONSTITUTIONAL: No fever, no malaise, no fatigue. HEENT: No recent visual problems or hearing problems. Denied any sore throat. CARDIOVASCULAR: No orthopnea, PND, no palpitations, no syncope. PULMONARY: No shortness of breath, no cough, no hemoptysis. GASTROINTESTINAL: No diarrhea, no nausea, no vomiting, no abdominal pain. NEUROLOGICAL: No headaches, no weakness, no numbness. HEMATOLOGICAL: Denies any bleeding or petechiae. GENITOURINARY: Denies any burning micturition, frequency, or urgency. MUSCULOSKELETAL/RHEUMATOLOGICAL: Denies any joint pain, swelling, or any muscle pain. ENDOCRINE: Denies any polyuria or polydipsia. The rest of the 14-point review of systems is negative. PHYSICAL EXAMINATION: GENERAL: The patient is alert and oriented x3, not in any acute distress. Well d eveloped, well nourished. HEENT: Pupils are round and equally reacting to light. EOMI. No scleral icterus. No conjunctival pallor. Normocephalic, atraumatic. No pharyngeal erythema. No thyromegaly. CARDIOVASCULAR: S1 and S2 present. No murmurs, rubs, or gallops. Reproducible chest pain PULMONARY: Chest is clear to auscultation, no wheezing or crackles. ABDOMEN: Soft, nontender, nondistended, normoactive bowel sounds. No palpable organomegaly. MUSCULOSKELETAL: No joint swelling or deformity. EXTREMITIES: No cyanosis, clubbing, or pedal edema. NEUROLOGICAL: Gross neurological examination did not reveal any focal deficits. SKIN: No rashes. Assessment and plan -Chest pain: Patient has reproducible chest pain mostly musculoskeletal in nature we'll repeat set of troponin cardiology was consulted from ER if the patient is cleared by cardiology patient will be discharged today patient was worked up for coronary disease in the recent hospitalization had a stress test a few months ago which was negative patient has a chronic total occlusion of the right coronary artery which is being managed medically. -Hypervolemic hyponatremia, hyponatremia is basically secondary to her alcoholism counseling was provided, patient was started on IV fluids Mild alcoholic hepatitis -Left shoulder pain tingling and numbness in the left arm is secondary to her rotator cuff issues for which patient has an outpatient follow-up with orthopedic surgery -COPD without any acute exception a 10-hypertension next Procedure disorder -Peripheral vascular disease -depression If cleared by cardiology patient will be discharged today Past Medical History Past Medical History: Asthma, Coronary Artery Disease (CAD), COPD, CVA/TIA, Eye Disorder, Hypertension, Liver Disease, Myocardial Infarction ([place]), Seizure Disorder, Vascular Disorder Additional Past Medical History / Comment(s): Pt recently admitted to [facility] for diarrhea, ETOH abuse. 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 soon Last Myocardial Infarction Date:: aug 2018 History of Any Multi-Drug Resistant Organisms: None Reported Past Surgical History: Cholecystectomy, Heart Catheterization, Orthopedic Surgery Additional Past Surgical History / Comment(s): L caratid stent, bilateral knee surgeries for tendon repair, bartholian cyst removed bilateral wrists, cataracts Past Anesthesia/Blood Transfusion Reactions: Motion Sickness Additional Past Anesthesia/Blood Transfusion Reaction / Comment(s): Pt has received blood without reaction. Past Psychological History: Anxiety, Depression Smoking Status: Current every day smoker Past Alcohol Use History: Abuse, Daily, Heavy Past Drug Use History: Marijuana - Past Family History Mother Family Medical History: Cancer, Congestive Heart Failure (CHF), Coronary Artery Disease (CAD), Hyperlipidemia Additional Family Medical History / Comment(s): Mother at age 85 from lung cancer. Father Family Medical History: Cancer, COPD Additional Family Medical History / Comment(s): Father at age 63 from lung cancer. Brother(s) Additional Family Medical History / Comment(s): Patient has a total of 7 siblings. 5 are alive without any major medical problems she is aware of. 2 siblings have one from alcohol abuse and 1. Coronary artery disease. Daughter(s) Additional Family Medical History / Comment(s): Patient has one daughter with no major medical problems. Medications and Allergies Home Medications Medication Instructions Recorded Confirmed Type Aspirin EC [Ecotrin Low Dose] 81 mg PO DAILY 02/11/19 02/06/23 History Metoprolol Succinate (ER) [Toprol 50 mg PO DAILY 06/13/21 02/06/23 History XL] Pantoprazole [Protonix] 40 mg PO DAILY 06/13/21 02/06/23 History Fluticasone Nasal [place] [Flonase 1 spr EA NOSTRIL DAILY 02/14/22 02/06/23 History Nasal [place]] Magnesium Oxide 400 mg PO DAILY 02/14/22 02/06/23 History Folic Acid 1 mg PO DAILY #30 tab 06/13/22 02/06/23 Rx Ondansetron Odt [Zofran ODT] 4 mg PO Q8HR PRN #20 tab 06/13/22 02/06/23 Rx Simvastatin [Zocor] 40 mg PO HS 07/03/22 02/06/23 History Vitamin B Complex 1 cap PO DAILY 07/03/22 02/06/23 History Cyclobenzaprine [Flexeril] 10 mg PO TID PRN #20 tab 07/17/22 02/06/23 Rx Brimonidine Tartrate [[place]ph[place] P 1 drop BOTH EYES BID 11/10/22 02/06/23 History 0.2% Ophth Soln] Budesonide-Formot 160-4.5 Mcg 2 puff INHALATION RT-BID 11/10/22 02/06/23 History [Symbicort 160-4.5 Mcg Inhaler] HYDROcodone/APAP 7.5-325MG [[place] 1 tab PO Q6H PRN 11/10/22 02/06/23 History 7.5-325] Isosorbide Mononitrate ER [Imdur] 30 mg PO DAILY 11/10/22 02/06/23 History Ketorolac [Toradol] 10 mg PO Q8H PRN 11/10/22 02/06/23 History Ticagrelor [Brilinta] 90 mg PO BID 01/14/23 02/06/23 History Albuterol Inhaler [Ventolin Hfa 2 puff INHALATION RT-QID PRN 30 01/22/23 02/06/23 Rx Inhaler] Days #1 each Thiamine [Vitamin B-1] 100 mg PO DAILY #30 tablet 01/22/23 02/06/23 Rx Nitroglycerin Sl Tabs [Nitrostat] 0.4 mg SL Q5M PRN 02/06/23 02/06/23 History Allergies Allergy/AdvReac Type Severity Reaction Status Date / Time latex Allergy Rash/Hives Verified 02/06/23 09:26 tomato Allergy Diarrhea Verified 02/06/23 09:26 Influenza Virus Vaccines AdvReac Nausea & Verified 02/06/23 09:26 Vomiting morphine AdvReac Nausea & Verified 02/06/23 09:26 Vomiting Physical Exam Vitals: Vital Signs Temp Pulse Pulse Resp BP Pulse Ox 02/06/23 11:20 97 173/99 96 02/06/23 10:07 93 136/108 97 02/06/23 09:47 91 02/06/23 09:00 96 137/115 97 02/06/23 08:06 97.6 F 95 18 140/121 98 Intake and Output 02/05/23 02/06/23 02/06/23 22:59 06:59 14:59 Other: Weight 77.111 kg Results CBC & Chem 7: 02/06/23 08:57 02/06/23 08:57 Labs: Abnormal Lab Results - Last 24 Hours (Table) 02/06/23 02/06/23 Range/Units 08:57 08:57 RDW 18.1 H (11.5-15.5) % Plt Count 100 L (150-450) k/uL Sodium 131 L (137-145) mmol/L Chloride 95 L (98-107) mmol/L Creatinine 0.45 L (0.52-1.04) mg/dL Glucose 113 H (74-99) mg/dL AST 54 H (14-36) U/L ALT 52 H (4-34) U/L
[2023-02-06] MEDS: METOPROLOL SUCCINATE (ER) 50 MG TAB.ER.24H PO SCH (11:38)
[2023-02-06] MEDS: HYDROcodone/APAP 7.5-325MG 1 EACH TAB PO PRN ×2 (13:23→18:45)
[2023-02-06] MEDS: NICOTINE 14MG/24HR PATCH TRANSDERM SCH (18:40)
[2023-02-06] MEDS: SYMBICORT 160-4.5 MCG INHALER INHALATION SCH (20:04)
[2023-02-06] MEDS: ATORVASTATIN 20 MG TAB PO SCH (20:45)
[2023-02-06] MEDS: CYCLOBENZAPRINE 10 MG TAB PO PRN (20:45)
[2023-02-06] MEDS: TICAGRELOR 90 MG TAB PO SCH (20:46)
[2023-02-06] MEDS: BRIMONIDINE TARTRATE 0.2% DROPS 5 ML BTL BOTH EYES SCH (20:46)
[2023-02-07] MEDS: HYDROcodone/APAP 7.5-325MG 1 EACH TAB PO PRN ×3 (01:14→22:00)
[2023-02-07] MEDS: CYCLOBENZAPRINE 10 MG TAB PO PRN ×3 (05:00→20:18)
[2023-02-07] MEDS: PANTOPRAZOLE 40 MG TABLET PO SCH (05:00)
[2023-02-07] MEDS: SODIUM CHLORIDE 0.9% 1,000 ML IV SCH ×3 (05:54→20:19)
[2023-02-07] MEDS: SYMBICORT 160-4.5 MCG INHALER INHALATION SCH ×2 (08:00→20:35)
[2023-02-07] MEDS ORDERED: CAFFEINE CITRATE 60 MG/3 ML VIAL IV PRN (08:06)
[2023-02-07] MEDS ORDERED: REGADENOSON 0.4 MG/5 ML SYRINGE IV PRN (08:06)
[2023-02-07] MEDS ORDERED: AMINOPHYLLINE 500 MG/20 ML VIAL IV PRN (08:06)
[2023-02-07] MEDS ORDERED: NON FORMULARY DRUG (Vitamin B Complex [Vitamin B Complex] 1 EACH Capsule) PO SCH (09:00)
[2023-02-07] MEDS ORDERED: ASPIRIN 325 MG TAB PO SCH (09:00)
[2023-02-07] MEDS: FLUTICASONE 50MCG/SPRAY NASAL 16GM EA NOSTRIL SCH (09:02)
[2023-02-07] MEDS: NICOTINE 14MG/24HR PATCH TRANSDERM SCH (09:02)
[2023-02-07] MEDS: BRIMONIDINE TARTRATE 0.2% DROPS 5 ML BTL BOTH EYES SCH ×2 (09:03→20:19)
[2023-02-07] MEDS: FOLIC ACID 1 MG TAB PO SCH (09:03)
[2023-02-07] MEDS: TICAGRELOR 90 MG TAB PO SCH ×2 (09:03→20:18)
[2023-02-07] MEDS: THIAMINE 100 MG TAB PO SCH (09:03)
[2023-02-07] MEDS: MAGNESIUM OXIDE 400 MG TAB PO SCH (09:03)
[2023-02-07] MEDS: ASPIRIN 81 MG PO SCH (09:03)
[2023-02-07 09:09] LABS: Chol/HDL Ratio 2.79 Ratio; LDL Cholesterol,Calculated 87.6 mg/dL (0.0-131.0)
[2023-02-07] MEDS: ISOSORBIDE MONONITRATE ER 30 MG TAB.ER.24H PO SCH (09:14)
[2023-02-07] MEDS: METOPROLOL SUCCINATE (ER) 50 MG TAB.ER.24H PO SCH (09:14)
--- NOTE | 2023-02-07 09:17 | P.CRDCN ---
History of Present Illness Consult date: 02/06/23 History of present illness: HISTORY OF PRESENT ILLNESS: This is a 62-year-old female with a past medical history significant for coronary artery disease with chronic total occlusion of the RCA, hypertension, hyperlipidemia, COPD, CVA, left carotid stent, tobacco use and dependence and alcohol abuse. Patient follows in the office with Dr. Howard. We have been asked to see the patient in consultation for chest pain. Patient states she has been h aving left shoulder pain for about a month. She is unsure of the etiology of the shoulder pain. She states that she began having chest pain yesterday in the middle of her chest that felt like a squeezing sensation and then she reports her left arm went numb. The time of examination, the patient denies any chest pain or pressure. She continues to report left shoulder discomfort. Vital signs are stable. * EKG reveals sinus mechanism with nonspecific ST-T wave changes. No acute changes from previous EKG. * Chest xray negative for acute pulmonary process * Laboratory data: WBC 7.4. Hemoglobin 12.6. Platelet count 100. Sodium 131. Potassium 3.7. BUN 7. Creatinine 0.45. AST 54. ALT 52. * Current home cardiac medications include aspirin 81 mg daily, simvastatin 40 mg at night, metoprolol succinate 50 mg daily, Imdur 30 mg daily, and Brilinta 90mg BID * Echocardiogram obtained in May 2022 revealed ejection fraction 50% with mild mitral regurgitation * Repeat echocardiogram performed in January 2023 revealed ejection fraction 55- 60% with mild mitral regurgitation and small pericardial effusion * Cardiac catheterization history: September 2019 revealing chronic total occlusion of the right coronary artery with extensive collaterals from the left. * Patient underwent JOSE in June 2022 with no evidence of intracardiac thrombus, no evidence of shunting across interatrial septum, [id number] mitral regurgitation REVIEW OF SYSTEMS: At the time of my exam: CONSTITUTIONAL: Denies fever or chills. HEENT: Denies blurred vision, vision changes, or eye pain. Denies hemoptysis CARDIOVASCULAR: Denies chest pain. Denies orthopnea. Denies PND. Denies pal pitations RESPIRATORY: Denies shortness of breath. GASTROINTESTINAL: Denies abdominal pain. Denies nausea or vomiting. HEMATOLOGIC: Denies bleeding disorders. GENITOURINARY: Denies any blood in urine. SKIN: Denies pruitis. Denies rash. PHYSICAL EXAM: VITAL SIGNS: Reviewed. GENERAL: Well-developed in no acute distress. HEENT: Head is normocephalic. Pupils are equal, round. Sclerae anicteric. Mucous membranes of the mouth are moist. Neck supple. No JVD or thyromegaly LUNGS: Respirations even and unlabored. Lungs essentially clear to auscultation bilaterally. HEART: Regular rate and rhythm. S1 and S2 heard. ABDOMEN: Soft. Nondistended. Nontender. EXTREMITIES: Normal range of motion. No clubbing or cyanosis. Peripheral pulses intact. No lower extremity edema NEUROLOGIC: Awake and alert. Oriented x 3. ASSESSMENT: Chest pain, troponins negative x 3 Acute on chronic left shoulder pain with chest discomfort Coronary artery disease with known chronic total occlusion of RCA History of left carotid stent Hypertension Hyperlipidemia CVA COPD Chronic left shoulder pain History of alcohol abuse Nicotine dependence PLAN: An acute coronary and has been ruled out No need to repeat echocardiogram as this was performed earlier this month Resume home cardiac medications Patient to undergo Lexiscan stress test today Further recommendations pending patient's course Nurse practitioner note has been reviewed by physician. Signing provider agrees with the documented findings, assessment, and plan of care. Past Medical History Past Medical History: Asthma, Coronary Artery Disease (CAD), COPD, CVA/TIA, Eye Disorder, Hypertension, Liver Disease, Myocardial Infarction ([place]), Seizure Disorder, Vascular Disorder Additional Past Medical History / Comment(s): Pt recently admitted to [facility] for diarrhea, ETOH abuse. 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 soon Last Myocardial Infarction Date:: aug 2018 History of Any Multi-Drug Resistant Organisms: None Reported Past Surgical History: Cholecystectomy, Heart Catheterization, Orthopedic Surger y Additional Past Surgical History / Comment(s): L caratid stent, bilateral knee surgeries for tendon repair, bartholian cyst removed bilateral wrists, cataracts Past Anesthesia/Blood Transfusion Reactions: Motion Sickness Additional Past Anesthesia/Blood Transfusion Reaction / Comment(s): Pt has received blood without reaction. Past Psychological History: Anxiety, Depression Smoking Status: Current every day smoker Past Alcohol Use History: Abuse, Daily, Heavy Past Drug Use History: Marijuana - Past Family History Mother Family Medical History: Cancer, Congestive Heart Failure (CHF), Coronary Artery Disease (CAD), Hyperlipidemia Additional Family Medical History / Comment(s): Mother at age 85 from lung cancer. Father Family Medical History: Cancer, COPD Additional Family Medical History / Comment(s): Father at age 63 from lung cancer. Brother(s) Additional Family Medical History / Comment(s): Patient has a total of 7 siblings. 5 are alive without any major medical problems she is aware of. 2 siblings have one from alcohol abuse and 1. Coronary artery disease. Daughter(s) Additional Family Medical History / Comment(s): Patient has one daughter with no major medical problems. Medications and Allergies Home Medications Medication Instructions Recorded Confirmed Type Aspirin EC [Ecotrin Low Dose] 81 mg PO DAILY 02/11/19 02/06/23 History Metoprolol Succinate (ER) [Toprol 50 mg PO DAILY 06/13/21 02/06/23 History XL] Pantoprazole [Protonix] 40 mg PO DAILY 06/13/21 02/06/23 History Fluticasone Nasal [place] [Flonase 1 spr EA NOSTRIL DAILY 02/14/22 02/06/23 History Nasal [place]] Magnesium Oxide 400 mg PO DAILY 02/14/22 02/06/23 History Folic Acid 1 mg PO DAILY #30 tab 06/13/22 02/06/23 Rx Ondansetron Odt [Zofran ODT] 4 mg PO Q8HR PRN #20 tab 06/13/22 02/06/23 Rx Simvastatin [Zocor] 40 mg PO HS 07/03/22 02/06/23 History Vitamin B Complex 1 cap PO DAILY 07/03/22 02/06/23 History Cyclobenzaprine [Flexeril] 10 mg PO TID PRN #20 tab 07/17/22 02/06/23 Rx Brimonidine Tartrate [Alphagan P 1 drop BOTH EYES BID 11/10/22 02/06/23 History 0.2% Ophth Soln] Budesonide-Formot 160-4.5 Mcg 2 puff INHALATION RT-BID 11/10/22 02/06/23 History [Symbicort 160-4.5 Mcg Inhaler] Isosorbide Mononitrate ER [Imdur] 30 mg PO DAILY 11/10/22 02/06/23 History Ketorolac [Toradol] 10 mg PO Q8H PRN 11/10/22 02/06/23 History Ticagrelor [Brilinta] 90 mg PO BID 01/14/23 02/06/23 History Albuterol Inhaler [Ventolin Hfa 2 puff INHALATION RT-QID PRN 30 01/22/23 02/06/23 Rx Inhaler] Days #1 each Thiamine [Vitamin B-1] 100 mg PO DAILY #30 tablet 01/22/23 02/06/23 Rx Nitroglycerin Sl Tabs [Nitrostat] 0.4 mg SL Q5M PRN 02/06/23 02/06/23 History Allergies Allergy/AdvReac Type Severity Reaction Status Date / Time latex Allergy Rash/Hives Verified 02/06/23 09:26 tomato Allergy Diarrhea Verified 02/06/23 09:26 Influenza Virus Vaccines AdvReac Nausea & Verified 02/06/23 09:26 Vomiting morphine AdvReac Nausea & Verified 02/06/23 09:26 Vomiting Physical Exam Vitals: Vital Signs Temp Pulse Pulse Resp BP Pulse Ox 02/06/23 10:07 93 136/108 97 02/06/23 09:47 91 02/06/23 09:00 96 137/115 97 02/06/23 08:06 97.6 F 95 18 140/121 98 Intake and Output 02/05/23 02/06/23 02/06/23 22:59 06:59 14:59 Other: Weight 77.111 kg Results 02/06/23 08:57 02/06/23 08:57 Cardiac Enzymes 02/06/23 02/06/23 Range/Units 08:57 08:57 AST 54 H (14-36) U/L Troponin I 0.027 (0.000-0.034) ng/mL Coagulation 02/06/23 Range/Units 08:57 PT 10.1 (9.0-12.0) sec APTT 23.7 (22.0-30.0) sec CBC 02/06/23 Range/Units 08:57 WBC 7.4 (3.8-10.6) k/uL RBC 3.90 (3.80-5.40) m/uL Hgb 12.6 (11.4-16.0) gm/dL Hct 36.1 (34.0-46.0) % Plt Count 100 L (150-450) k/uL Comprehensive Metabolic Panel 02/06/23 Range/Units 08:57 Sodium 131 L (137-145) mmol/L Potassium 3.7 (3.5-5.1) mmol/L Chloride 95 L (98-107) mmol/L Carbon Dioxide 30 (22-30) mmol/L BUN 7 (7-17) mg/dL Creatinine 0.45 L (0.52-1.04) mg/dL Glucose 113 H (74-99) mg/dL Calcium 9.1 (8.4-10.2) mg/dL AST 54 H (14-36) U/L ALT 52 H (4-34) U/L Alkaline Phosphatase 98 (38-126) U/L Total Protein 6.4 (6.3-8.2) g/dL Albumin 3.8 (3.5-5.0) g/dL Current Medications Generic Name Dose Route Start Last Admin Trade Name Freq PRN Reason Stop Dose Admin Aspirin 325 mg 02/07/23 09:00 Aspirin 325 Mg Tab PO DAILY MAGY Nitroglycerin 0.4 mg 02/06/23 10:19 Nitroglycerin Sl Tabs 0.4 Mg Tab SUBLINGUAL Q5M PRN Chest Pain Intake and Output 02/05/23 02/06/23 02/06/23 22:59 06:59 14:59 Other: Weight 77.111 kg Patient Weight 02/07/23 06:59 Weight 77.111 kg 02/06/23 08:57 02/06/23 08:57
--- NOTE | 2023-02-07 11:27 | CA ---
Lexiscan Nuclear Stress Test Report Name: Anna Marie Valladares Exam Date: 02/07/2023 09:55 Exam Location: [place] Stress Ht (in): 62 Wt (lb): 170 BSA: 1.78 Ordering Phys: Nicole Velasquez Referring Phys: [email or web address],, Technologist: Davide Dixon Age: 62 Gender: F : 1960 Procedure CPT: Indications: Reflex order-Stress test ICD-10 Codes: Patient History: CHEST PAIN, ANGINA, NUMBNESS IN FACE/NECK, HTN, PRIOR CVA, ELEVATED CHOLESTEROL LEVELS, CURRENT SMOKER 0.5 PPD X 40 + YEARS, PRIOR GA, PRIOR CARDIAC CATH WITH STENT, COPD Medications: Meds past 24 hrs: Pretest Chest Pain: STRESS TEST Lexiscan Protocol Exercise Duration (min:sec): 01:[address] Depressions (mm): Angina Score: Kenyon Score: Resting HR (bpm): Peak HR (bpm): 102 Resting BP (mmHg): 123 / 87 Peak BP (mmHg): 154 / 112 MPHR: 159 Target HR: 135 % MPHR: 64 METS: 1.0 Total Dose: Peak Dose: Atropine: Double Product: 68995 BP Response: Stress Termination: Completion of Infusion Stress Symptoms: CHEST TIGHTNESS,ARM TINGLING Stress Summary: ECG ANALYSIS Resting ECG: Stress ECG: CONCLUSIONS At baseline EKG showed normal sinus rhythm, normal axis, minimal 0.[address] depressions in the inferior leads. Patient recieved IV infusion of Lexiscan 0.4mg and at peak infusion EKG showed no significant change from baseline. Conclusions: 1. Nonspecific EKG portion given baseline EKG abnormalities 2. Nuclear imaging to be reported separately. Dr. Aren Alexander DO (Electronically Signed) Final Date: 07 February 2023 11:27
--- NOTE | 2023-02-07 11:35 | NM ---
"EXAMINATION TYPE: NM stress lexiscan cardiolite DATE OF EXAM: 02/07/2023 COMPARISON: 05/21/2020 HISTORY: Chest pain TECHNIQUE: After the intravenous administration of 10.4 mCi Tc 99m Sestamibi - Cardiolite resting SP ECT images acquired 45 minutes post injection. At peak stress 25.8 mCi Tc 99m Sestamibi - Stress images obtained 30 minutes post injection The patient was stressed with 0.4mg Lexiscan. FINDINGS: No fixed defects are evident On stress images there is diminished radiotracer accumulation along the mid to distal anterior latera l wall. Resting images of more normal radiotracer distribution to this region. Polar maps match the S PECT imaging. Ejection fraction at 37% is low. Dyskinesia of the anterior wall is evident. Lateral wall may has kate e mild dyskinesia as well. Dyskinesia of the apex is noted. IMPRESSION: 1. Stress-induced ischemic change anterior lateral wall from the midportion to the cardiac apex. Billie elate for stress-induced ischemic change. This is an interval change from 2019. A [place] level critical message alert has been initiated for Jaden Benítez MD via the [facility] | Critical Results System on 02/07/2023 11:32 AM. This message alert has been sent to Jaden darling MD via the preferences provided by the clinician for the receipt of Radiology Critical Finding s. Message ID [id number]."
[2023-02-07] MEDS ORDERED: NITROGLYCERIN SL TABS 0.4 MG TAB SUBLINGUAL PRN (13:52)
[2023-02-07] MEDS ORDERED: ALPRAZolam 0.5 MG TAB PO PRN (13:52)
[2023-02-07] MEDS ORDERED: ALPRAZolam 0.25 MG TAB PO PRN (13:52)
[2023-02-07] MEDS: ATORVASTATIN 20 MG TAB PO SCH (20:18)
[2023-02-08] MEDS: CYCLOBENZAPRINE 10 MG TAB PO PRN (04:12)
[2023-02-08] MEDS: HYDROcodone/APAP 7.5-325MG 1 EACH TAB PO PRN ×2 (04:13→09:49)
[2023-02-08] MEDS: SODIUM CHLORIDE 0.9% 1,000 ML in EMPTY BAG 1 BAG IV SCH ×2 (04:20→09:42)
[2023-02-08] MEDS ORDERED: ASPIRIN 325 MG TAB PO ONE (05:00)
[2023-02-08] MEDS ORDERED: ATORVASTATIN 80 MG TAB PO ONE (05:00)
[2023-02-08] MEDS: ISOSORBIDE MONONITRATE ER 30 MG TAB.ER.24H PO SCH (05:24)
[2023-02-08] MEDS: PANTOPRAZOLE 40 MG TABLET PO SCH (05:24)
[2023-02-08] MEDS: METOPROLOL SUCCINATE (ER) 50 MG TAB.ER.24H PO SCH (05:24)
--- NOTE | 2023-02-08 06:14 | P.PN ---
Subjective Progress Note Date: 02/07/23 62-year-old female with a known history of coronary artery disease and chronic total occlusion of RCA, had a recent stress test a few months ago which did not show any significant abnormality and was admitted with chest pain earlier this month was a valid by cardiology at that time echocardiogram was done and was subsequently cleared for discharge came in with the complaints of left shoulder pain, neck pain pressure-like chest pain. Patient has some numbness in the left arm as well. Patient denied any diaphoresis shortness of breath associated with that patient continues to drink alcohol but not on regular basis she is trying to quit alcohol. Patient had a follow-up with orthopedic surgery as an outpatient for left shoulder pain. Patient to her pain medications. Patient chest pain is reproducible EKG showed some diffuse ST depression from V3 to V6 slightly more pronounced than last time 02/07/2023 Patient is seen and evaluated and follow-up this morning scheduled to undergo stress testing with cardiology following. Patient continues to report some dull chest pain and shoulder pain and currently nothing by mouth for the procedure. Will follow-up on report. Patient is currently afebrile with no reports of shortness of breath. Review of systems: Constitutional: No reports of fatigue, fever, or chills Cardiovascular: reports of chest pain, no palpitations Respiratory: No reports of shortness of breath or cough GI: No reports of nausea, vomiting, or diarrhea : No reports of dysuria or retention Neurovascular: No reports of weakness or numbness All medications have been reviewed PHYSICAL EXAMINATION: GENERAL: The patient is alert and oriented x3, not in any acute distress. Well developed, well nourished. HEENT: Pupils are round and equally reacting to light. EOMI. No scleral icterus. No conjunctival pallor. Normocephalic, atraumatic. No pharyngeal erythema. No thyromegaly. CARDIOVASCULAR: S1 and S2 present. No murmurs, rubs, or gallops. Reproducible chest pain PULMONARY: Chest is clear to auscultation, no wheezing or crackles. ABDOMEN: Soft, nontender, nondistended, normoactive bowel sounds. No palpable organomegaly. MUSCULOSKELETAL: No joint swelling or deformity. EXTREMITIES: No cyanosis, clubbing, or pedal edema. NEUROLOGICAL: Gross neurological examination did not reveal any focal deficits. SKIN: No rashes. Assessment: -Chest pain: Patient has reproducible chest pain possibly musculoskeletal in nature -Hypervolemic hyponatremia, hyponatremia is basically secondary to her alcoholism counseling was provided, patient was started on IV fluids -Mild alcoholic hepatitis -Left shoulder pain tingling and numbness in the left arm is secondary to her rotator cuff issues for which patient has an outpatient follow-up with orthopedic surgery -COPD without any acute exacerbation -Hypertension history next -History of seizure disorder -Peripheral vascular disease -depression Plan: Recommend to continue with telemetry monitoring and current medications. Patient was scheduled to undergo stress test today and there were concerns of an area of reducible ischemia in the anterior lateral wall with cardiology planning on cardiac catheterization possibly in the a.m. Okay to resume diet today with nothing by mouth at midnight and will await cardiac catheterization report. Encouraged increased activity as tolerated Will await Report and discuss further with cardiology with possible discharge in 24-48 hours. The impression and plan of care has been dictated by Tonya Adan, Nurse Practitioner as directed. Dr. Jackelin MD I have performed a history and examination and MDM of this patient, discussed the same with the dictator, and agree with the dictator's assessment and plan as written ,documented as a scribe. Based on total visit time, I have performed more than 50% of the visit. Objective - Vital Signs Vital signs: Vital Signs Temp 97.9 F 02/07/23 07:10 Pulse 81 02/07/23 08:50 Resp 18 02/07/23 07:10 BP 155/98 02/07/23 07:10 Pulse Ox 95 02/07/23 08:01 FiO2 Intake & Output 02/06/23 02/07/23 02/07/23 18:59 06:59 18:59 Intake Total 236 Balance 236 Weight 77.111 kg Intake: Oral 236 Other: Voiding Method Toilet Toilet # Voids 3 - Labs CBC & Chem 7: 02/06/23 08:57 02/06/23 08:57 Labs: Abnormal Lab Results - Last 24 Hours (Table) 02/06/23 02/07/23 Range/Units 08:57 06:14 Sodium 131 L (137-145) mmol/L Chloride 95 L (98-107) mmol/L Creatinine 0.45 L (0.52-1.04) mg/dL Glucose 113 H (74-99) mg/dL AST 54 H (14-36) U/L ALT 52 H (4-34) U/L HDL Cholesterol 63.80 H (40.00-60.00) mg/dL
[2023-02-08] MEDS ORDERED: HEPARIN SODIUM,PORCINE 10,000 UNIT in SODIUM CHLORIDE 0.9% 1,000 ML IRRIGATION PRN (07:00)
[2023-02-08] MEDS ORDERED: HEPARIN SODIUM,PORCINE 2,500 UNIT in SODIUM CHLORIDE 0.9% 250 ML IRRIGATION PRN (07:00)
[2023-02-08] MEDS ORDERED: fentaNYL (PF) 50 MCG/ML 2 ML AMP IV ONE (07:36)
[2023-02-08] MEDS ORDERED: MIDAZOLAM 2 MG/2 ML VIAL IV ONE (07:36)
[2023-02-08] MEDS ORDERED: LIDOCAINE 1% INJ 10MG/ML (5 ML VIAL-PF) SQ ONE (07:39)
[2023-02-08] MEDS ORDERED: IV FLUID CONTINUATION 200 ML IV ONE (07:40)
[2023-02-08] MEDS ORDERED: NITROGLYCERIN OINT 1 INCH/GM PACKET TOPICAL ONE (07:40)
[2023-02-08] MEDS: SYMBICORT 160-4.5 MCG INHALER INHALATION SCH (07:48)
[2023-02-08] MEDS ORDERED: LIDOCAINE 1% INJ 10MG/ML (20 ML MDV) SQ ONE ×2 (07:49→07:55)
[2023-02-08] MEDS ORDERED: IOPAMIDOL-370 125ML BTL INJ ONE (08:11)
[2023-02-08] MEDS ORDERED: hydrALAZINE HCL 20 MG/ML 1 ML VIAL IV ONE (08:19)
[2023-02-08] MEDS ORDERED: RX INFO: IV CONTRAST WAS GIVEN 1 EACH MISC MISCELLANE PRN (09:28)
[2023-02-08] MEDS ORDERED: SODIUM CHLORIDE 0.9% 1,000 ML IV SCH (09:30)
[2023-02-08] MEDS: ASPIRIN 81 MG PO SCH (09:37)
[2023-02-08] MEDS: NICOTINE 14MG/24HR PATCH TRANSDERM SCH (09:41)
[2023-02-08] MEDS: THIAMINE 100 MG TAB PO SCH (09:42)
[2023-02-08] MEDS: FOLIC ACID 1 MG TAB PO SCH (09:42)
[2023-02-08] MEDS: FLUTICASONE 50MCG/SPRAY NASAL 16GM EA NOSTRIL SCH (09:42)
[2023-02-08] MEDS: BRIMONIDINE TARTRATE 0.2% DROPS 5 ML BTL BOTH EYES SCH (09:42)
[2023-02-08] MEDS: MAGNESIUM OXIDE 400 MG TAB PO SCH ×2 (09:42→09:44)
[2023-02-08 10:23] LABS: African American GFR (CKD) >90 (>60 ml/min/1.73 sqM); Anion Gap 9 mmol/L; Blood Urea Nitrogen 7 mg/dL (7-17); Calcium 8.2 mg/dL (8.4-10.2); Carbon Dioxide 23 mmol/L (22-30); Chloride 107 mmol/L (98-107); Glucose 93 mg/dL (74-99); Non-African American GFR(CKD) >90 (>60 ml/min/1.73 sqM); Potassium 3.8 mmol/L (3.5-5.1); Sodium 139 mmol/L (137-145)
[2023-02-08] MEDS: TICAGRELOR 90 MG TAB PO SCH (10:54)
[2023-02-08 11:23] VITALS: RESP 18; TEMP 97.9
[2023-02-08 15:12] VITALS: BP 107/75; PULSE 89
--- NOTE | 2023-02-08 17:24 | CC ---
CARDIAC CATHETERIZATION REPORT INDICATION: Chest pain with abnormal stress test. PROCEDURE NOTE: After obtaining informed consent, left heart catheterization and coronary angiogram were performed via the left femoral artery using standard [place] catheters. The patient tolerated the procedure well without any obvious immediate complications. Total sedation time was 37 minutes. I initially attempted vascular access via the right radial artery. It was unsuccessful. Subsequently, I tried access via the right femoral artery, where I was unsuccessful and ended up completing the cardiac catheterization from the left femoral artery. Manual hemostasis was done at the end of the procedure. FINDINGS: 1. HEMODYNAMICS: Left ventricular end-diastolic pressure is 26 mmHg. There is no significant gradient across the aortic valve. 2. LEFT VENTRICULOGRAM: Left ventriculogram is not performed. 3. ANGIOGRAPHIC DATA: a.Left main coronary artery: Left main coronary artery is a short vessel and is free of stenosis. Divides into left anterior descending coronary artery and circumflex coronary artery. Circumflex coronary artery and its branches are free of significant stenosis. LAD shows mild nonobstructive disease. b.Right coronary artery is totally occluded proximally with extensive collaterals from the left to the distal right. CONCLUSION: 1. Chronic total occlusion of the right coronary artery. 2. No significant obstructive CAD involving LAD which is where the stress test was abnormal. PLAN: I reviewed angiographic data with the patient and advised her on continued medical therapy at this time. MMODL / IJN: [id number] /
--- NOTE | 2023-02-11 12:28 | P.DS ---
Providers Date of admission: 02/06/23 10:20 Expected date of discharge: 03/11/23 Attending physician: Jaden Benítez Consults: 02/06/23 10:19 Consult Physician Urgent Consulting Provider: Farhan Rico Consult Reason/Comments: chest pain Do you want consulting provider notified?: Yes Primary care physician: Miya Johnson Hospital Course: Final diagnosis -Chest pain: Patient has reproducible chest pain possibly musculoskeletal in nature, ruled out ACS -Hypervolemic hyponatremia, hyponatremia is basically secondary to her alcoholism -Mild alcoholic hepatitis -Left shoulder pain tingling and numbness in the left arm is secondary to her rotator cuff issues for which patient has an outpatient follow-up with orthopedic surgery -COPD without any acute exacerbation -Hypertension history -History of seizure disorder -Peripheral vascular disease -depression Discharge disposition Patient is being discharged in a stable condition with guarded prognosis to home . Patient will follow-up with Dr. Sherman Cardoza in the outpatient setting upon discharge. Patient is to continue with hemodialysis as scheduled. Total time taken is greater than 35 minutes. Hospital course This is a 62-year-old female who was recently admitted with chest pain being closely monitored. Patient was evaluated by cardiology underwent stress test which showed some areas of possible reducible ischemia and cardiology recommending cardiac catheterization is agreeable. Cardiac cath done today which was negative and has been cleared by consultations. Please refer to cardiology notes for further HPI. Patient to follow-up with orthopedics as she has not previously on previous admission and was having continued upper back and neck pain. Patient to make follow-up appointment due to her transportation issues using insurance for transportation to appointments. Currently no reports of chest pain, shortness of breath, or palpitations. Patient is afebrile. No reports of nausea or vomiting and patient is tolerating diet. Patient will be discharged home today. Guarded prognosis as patient is high risk for readmissions due to noncompliance. Physical exam: Gen: This is a 62-year-old female who is awake, alert and oriented 3, well- developed, elderly-appearing, obese HEENT: Head is atraumatic, normocephalic. Pupils equal, round. Sclerae is anicteric. NECK: Supple. No JVD. No lymphadenopathy. No thyromegaly. LUNGS: Clear to auscultation. No wheezes or rhonchi. No intercostal retractions. HEART: Regular rate and rhythm. No murmur. ABDOMEN: Soft. Bowel sounds are present. No masses. No tenderness. EXTREMITIES: No pedal edema. No calf tenderness. NEUROLOGICAL: Patient is awake, alert and oriented x3. Cranial nerves 2 through 12 are grossly intact. Please refer to medication reconciliation sheet for a list of medications. The impression and plan of care has been dictated by Tonya Adan, Nurse Practitioner as directed. MD Chanelle I have performed a history and examination and MDM of this patient, discussed the same with the dictator, and agree with the dictator's assessment and plan as written ,documented as a scribe. Based on total visit time, I have performed more than 50% of the visit. Patient Condition at Discharge: Fair Plan - Discharge Summary Discharge Rx Participant: No New Discharge Prescriptions: New Nicotine 14Mg/24Hr Patch [Habitrol] 1 patch TRANSDERM DAILY patch Continue Aspirin EC [Ecotrin Low Dose] 81 mg PO DAILY Pantoprazole [Protonix] 40 mg PO DAILY Folic Acid 1 mg PO DAILY #30 tab Vitamin B Complex 1 cap PO DAILY Brimonidine Tartrate [Alphagan P 0.2% Ophth Soln] 1 drop BOTH EYES BID Budesonide-Formot 160-4.5 Mcg [Symbicort 160-4.5 Mcg Inhaler] 2 puff INHALATION RT-BID Ticagrelor [Brilinta] 90 mg PO BID Thiamine [Vitamin B-1] 100 mg PO DAILY #30 tablet Metoprolol Succinate (ER) [Toprol XL] 50 mg PO DAILY Fluticasone Nasal [place] [Flonase Nasal [place]] 1 spr EA NOSTRIL DAILY Magnesium Oxide 400 mg PO DAILY Ondansetron Odt [Zofran ODT] 4 mg PO Q8HR PRN #20 tab PRN Reason: Nausea Simvastatin [Zocor] 40 mg PO HS Cyclobenzaprine [Flexeril] 10 mg PO TID PRN #20 tab PRN Reason: Pain Isosorbide Mononitrate ER [Imdur] 30 mg PO DAILY Ketorolac [Toradol] 10 mg PO Q8H PRN PRN Reason: Pain Albuterol Inhaler [Ventolin Hfa Inhaler] 2 puff INHALATION RT-QID PRN 30 Days #1 each PRN Reason: Shortness Of Breath Or Wheezing Nitroglycerin Sl Tabs [Nitrostat] 0.4 mg SL Q5M PRN PRN Reason: Chest Pain Discontinued HYDROcodone/APAP 7.5-325MG [[place] 7.5-325] 1 tab PO Q6H PRN PRN Reason: Pain Discharge Medication List Aspirin EC [Ecotrin Low Dose] 81 mg PO DAILY 02/11/19 [History] Metoprolol Succinate (ER) [Toprol XL] 50 mg PO DAILY 06/13/21 [History] Pantoprazole [Protonix] 40 mg PO DAILY 06/13/21 [History] Fluticasone Nasal [place] [Flonase Nasal [place]] 1 spr EA NOSTRIL DAILY 02/14/22 [History] Magnesium Oxide 400 mg PO DAILY 02/14/22 [History] Folic Acid 1 mg PO DAILY #30 tab 06/13/22 [Rx] Ondansetron Odt [Zofran ODT] 4 mg PO Q8HR PRN #20 tab 06/13/22 [Rx] Simvastatin [Zocor] 40 mg PO HS 07/03/22 [History] Vitamin B Complex 1 cap PO DAILY 07/03/22 [History] Cyclobenzaprine [Flexeril] 10 mg PO TID PRN #20 tab 07/17/22 [Rx] Brimonidine Tartrate [Alphagan P 0.2% [facility] Soln] 1 drop BOTH EYES BID 11/10/22 [History] Budesonide-Formot 160-4.5 Mcg [Symbicort 160-4.5 Mcg Inhaler] 2 puff INHALATION RT-BID 11/10/22 [History] Isosorbide Mononitrate ER [Imdur] 30 mg PO DAILY 11/10/22 [History] Ketorolac [Toradol] 10 mg PO Q8H PRN 11/10/22 [History] Ticagrelor [Brilinta] 90 mg PO BID 01/14/23 [History] Albuterol Inhaler [Ventolin Hfa Inhaler] 2 puff INHALATION RT-QID PRN 30 Days #1 each 01/22/23 [Rx] Thiamine [Vitamin B-1] 100 mg PO DAILY #30 tablet 01/22/23 [Rx] Nitroglycerin Sl Tabs [Nitrostat] 0.4 mg SL Q5M PRN 02/06/23 [History] Nicotine 14Mg/24Hr Patch [Habitrol] 1 patch TRANSDERM DAILY patch 02/08/23 [Rx] Follow up Appointment(s)/Referral(s): Miya Johnson MD [Primary Care Provider] - 3 Days Camden Villa DO [Doctor of Osteopathic Medicine] - 1 Week (Keep your scheduled appointment) Unruly Howard MD [STAFF PHYSICIAN] - 02/15/23 2:15 pm Patient Instructions/Handouts: *Surgery [facility] - After Heart Catheterization - Cow Tender Instructions, Chest Pain (DC), After Radial Heart Catheterization (GEN) Activity/Diet/Wound Care/Special Instructions: Activity Limited until follow-up Follow-up with primary care provider on discharge Continue taking medications as prescribed Avoid tobacco and alcohol use Follow-up with cardiology in 1-2 weeks Follow-up with orthopedics as discussed in the outpatient setting Discharge Disposition: HOME SELF-CARE
== END 2023-02-08 16:45 | disposition home or self-care (01) | DRG 192 ==
LOC: EC 08:04 → 6NMEDSUR 10:20 → OBSVTOIN 10:20 → 6NMEDSUR 16:02
PROVIDERS: ADMIT Internal Medicine; ATTEND Internal Medicine
PROC: B2111ZZ Fluoroscopy of Multiple Coronary Arteries using Low Osmolar Contrast (ICD-10-PCS; 2023-02-08)
PROC: 4A023N7 Measurement of Cardiac Sampling and Pressure, Left Heart, Percutaneous Approach (ICD-10-PCS; principal; 2023-02-08 07:30)
DX: R07.89 Other chest pain (principal); K70.30 Alcoholic cirrhosis of liver without ascites; K70.10 Alcoholic hepatitis without ascites; E11.51 Type 2 diabetes mellitus with diabetic peripheral angiopathy without gangrene; E87.1 Hypo-osmolality and hyponatremia; I34.0 Nonrheumatic mitral (valve) insufficiency; I31.39 Other pericardial effusion (noninflammatory); F17.210 Nicotine dependence, cigarettes, uncomplicated; I10 Essential (primary) hypertension; I69.351 Hemiplegia and hemiparesis following cerebral infarction affecting right dominant side; F32.A Depression, unspecified; E78.5 Hyperlipidemia, unspecified; I25.10 Atherosclerotic heart disease of native coronary artery without angina pectoris; M25.512 Pain in left shoulder; G89.29 Other chronic pain; J44.9 Chronic obstructive pulmonary disease, unspecified; E87.70 Fluid overload, unspecified; D64.9 Anemia, unspecified; R29.6 Repeated falls; Z71.41 Alcohol abuse counseling and surveillance of alcoholic; F41.9 Anxiety disorder, unspecified; G40.909 Epilepsy, unspecified, not intractable, without status epilepticus; I25.2 Old myocardial infarction; Z79.02 Long term (current) use of antithrombotics/antiplatelets; Z79.51 Long term (current) use of inhaled steroids; Z79.82 Long term (current) use of aspirin; Z79.899 Other long term (current) drug therapy; Z88.5 Allergy status to narcotic agent; Z88.7 Allergy status to serum and vaccine; Z88.8 Allergy status to other drugs, medicaments and biological substances; Z91.018 Allergy to other foods; Z91.040 Latex allergy status; Z91.81 History of falling; Z98.42 Cataract extraction status, left eye; Z98.41 Cataract extraction status, right eye
CPT/HCPCS: 36415; 71046; 78452; 80048; 80053; 80061; 83735; 84484; 85025; 85610; 85730; 93005; 93017; 93458; 94640; 94760; 96360; 96361; 99285

== ENCOUNTER 2023-02-17 23:53 | Emergency (ER) | payer OTHER ==
[2023-02-18 00:02] VITALS: PULSE 96; RESP 18; TEMP 97.9
[2023-02-18] MEDS ORDERED: LIDOCAINE 5% PATCH TOPICAL STA (00:03)
--- NOTE | 2023-02-18 00:16 | ED ---
General Adult HPI - General Chief complaint: Neck Pain/Injury Stated complaint: ETOH,Back Pain Time Seen by Provider: 02/17/23 23:57 Source: patient, EMS Mode of arrival: EMS Limitations: no limitations - History of Present Illness Initial comments: Dictation was produced using Picket dictation software. please excuse any grammatical, word or spelling errors. Chief Complaint: 63-year-old female well-known to emergency department presents to emergency department for acute chronic neck pain History of Present Illness: This 63-year-old female shows multiple comorbidities. Patient has a history of chronic neck pain. Patient states that her neck pain has been feeling worse. States that it's in her lower neck. States radiates to her neck, posterior head and mid thoracic back. Patient states that it feels like her usual neck pain. She presented to outside hospital 2 days ago for neck pain. She was discharged given referral to specialist in [place]. Patient states she is unable to see the specialist that more due to transportation issues. Denies any numbness and paresthesias to the arms or legs. The ROS documented in this emergency department record has been reviewed and confirmed by me. Those systems with pertinent positive or negative responses have been documented in the HPI. All other systems are other negative and/or noncontributory. PHYSICAL EXAM: General Impression: Alert and oriented x3, acute distress secondary to pain HEENT: Normocephalic atraumatic, extra-ocular movements intact, pupils equal and reactive to light bilaterally, mucous membranes moist, palpatory tenderness to the left trapezius at the level of the T1 Cardiovascular: Heart regular rate and rhythm Chest: Able to complete full sentences, no retractions, no tachypnea Abdomen: abdomen soft, non-tender, non-distended, no organomegaly Musculoskeletal: Pulses present and equal in all extremities, no peripheral edema Motor: no focal deficits noted Neurological: CN II-XII grossly intact, no focal motor or sensory deficits noted, negative limits, negative Brudzinski's, negative Kernig's Skin: Intact with no visualized rashes Psych: Normal affect and mood ED course: 63-year-old female well-known to the emergency department presents to the ER for acute chronic pain. Vital signs upon arrival are within acceptable limits. Nursing notes and chart review was performed I requested documentation from [facility] from patient's visit 3 days ago. Documentation shows that patient had blood work and imaging studies. She had a computed tomography scan suggested that correlates this was slightly large. On direct by a neurosurgical consult. Labs were also reviewed. Patient had alcohol level that was significantly elevated. She presented to [facility] for chief complaint of left shoulder pain. - Related Data Home Medications Medication Instructions Recorded Confirmed Aspirin EC [Ecotrin Low Dose] 81 mg PO DAILY 02/11/19 02/06/23 Metoprolol Succinate (ER) [Toprol 50 mg PO DAILY 06/13/21 02/06/23 XL] Pantoprazole [Protonix] 40 mg PO DAILY 06/13/21 02/06/23 Fluticasone Nasal [place] [Flonase 1 spr EA NOSTRIL DAILY 02/14/22 02/06/23 Nasal [place]] Magnesium Oxide 400 mg PO DAILY 02/14/22 02/06/23 Simvastatin [Zocor] 40 mg PO HS 07/03/22 02/06/23 Vitamin B Complex 1 cap PO DAILY 07/03/22 02/06/23 Brimonidine Tartrate [Alphagan P 1 drop BOTH EYES BID 11/10/22 02/06/23 0.2% Ophth Soln] Budesonide-Formot 160-4.5 Mcg 2 puff INHALATION RT-BID 11/10/22 02/06/23 [Symbicort 160-4.5 Mcg Inhaler] Isosorbide Mononitrate ER [Imdur] 30 mg PO DAILY 11/10/22 02/06/23 Ketorolac [Toradol] 10 mg PO Q8H PRN 11/10/22 02/06/23 Ticagrelor [Brilinta] 90 mg PO BID 01/14/23 02/06/23 Nitroglycerin Sl Tabs [Nitrostat] 0.4 mg SL Q5M PRN 02/06/23 02/06/23 Previous Rx's Medication Instructions Recorded Folic Acid 1 mg PO DAILY #30 tab 06/13/22 Ondansetron Odt [Zofran ODT] 4 mg PO Q8HR PRN #20 tab 06/13/22 Cyclobenzaprine [Flexeril] 10 mg PO TID PRN #20 tab 07/17/22 Albuterol Inhaler [Ventolin Hfa 2 puff INHALATION RT-QID PRN 30 01/22/23 Inhaler] Days #1 each Thiamine [Vitamin B-1] 100 mg PO DAILY #30 tablet 01/22/23 Nicotine 14Mg/24Hr Patch [Habitrol] 1 patch TRANSDERM DAILY patch 02/08/23 Allergies Allergy/AdvReac Type Severity Reaction Status Date / Time latex Allergy Rash/Hives Verified 02/17/23 23:58 tomato Allergy Diarrhea Verified 02/17/23 23:58 Influenza Virus Vaccines AdvReac Nausea & Verified 02/17/23 23:58 Vomiting morphine AdvReac Nausea & Verified 02/17/23 23:58 Vomiting Review of Systems ROS Statement: Those systems with pertinent positive or pertinent negative responses have been documented in the HPI. ROS Other: All systems not noted in ROS Statement are negative. Past Medical History Past Medical History: Asthma, Coronary Artery Disease (CAD), COPD, CVA/TIA, Eye Disorder, Hypertension, Liver Disease, Myocardial Infarction ([place]), Seizure Disorder, Vascular Disorder Additional Past Medical History / Comment(s): Pt recently admitted to [facility] for diarrhea, ETOH abuse. 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 soon Last Myocardial Infarction Date:: aug 2018 History of Any Multi-Drug Resistant Organisms: None Reported Past Surgical History: Cholecystectomy, Heart Catheterization, Orthopedic Surgery Additional Past Surgical History / Comment(s): L caratid stent, bilateral knee surgeries for tendon repair, bartholian cyst removed bilateral wrists, cataracts Past Anesthesia/Blood Transfusion Reactions: Motion Sickness Additional Past Anesthesia/Blood Transfusion Reaction / Comment(s): Pt has received blood without reaction. Past Psychological History: Anxiety, Depression Smoking Status: Current every day smoker Past Alcohol Use History: Abuse, Daily, Heavy Past Drug Use History: Marijuana - Past Family History Mother Family Medical History: Cancer, Congestive Heart Failure (CHF), Coronary Artery Disease (CAD), Hyperlipidemia Additional Family Medical History / Comment(s): Mother at age 85 from lung cancer. Father Family Medical History: Cancer, COPD Additional Family Medical History / Comment(s): Father at age 63 from lung cancer. Brother(s) Additional Family Medical History / Comment(s): Patient has a total of 7 siblings. 5 are alive without any major medical problems she is aware of. 2 siblings have one from alcohol abuse and 1. Coronary artery disease. Daughter(s) Additional Family Medical History / Comment(s): Patient has one daughter with no major medical problems. General Exam Limitations: no limitations Course Vital Signs 02/18/23 02/18/23 02/18/23 00:00 00:16 01:39 Temperature 97.9 F Pulse Rate 96 96 96 Respiratory 18 18 18 Rate Blood Pressure 138/101 134/93 110/79 O2 Sat by Pulse 100 96 92 L Oximetry Medical Decision Making - Medical Decision Making Was pt. sent in by a medical professional or institution (, PA, ROD STRAIGHTENER, urgent care, hospital, or fdc...) When possible be specific @ -No Did you speak to anyone other than the patient for history (EMS, parent, family, police, friend...)? What history was obtained from this source @ -No Did you review nursing and triage notes (agree or disagree)? Why? @ -I reviewed and agree with nursing and triage notes Were old charts reviewed (outside hosp., previous admission, EMS record, old EKG, old radiological studies, urgent care reports/EKG's, fdc records)? Report findings @ --Prior imaging and hospital visits reviewed Differential Diagnosis (chest pain, altered mental status, abdominal pain women, abdominal pain men, vaginal bleeding, musculoskeletal, weakness, fever, dyspnea, syncope, headache, dizziness, GI bleed, back pain, seizure, CVA, palpatations, mental health)? @ -Differential Musculoskeletal: Muscular strain, contusion, ligament sprain, fracture, arthritis, septic arthritis, bursitis, cellulitis, muscle spasm, nerve compression, DVT, arterial occlusion, herpes zoster, electrolyte abnormality, tumor.... This is not meant to be in all inclusive list EKG interpreted by me (3pts min.). @ -None done X-rays interpreted by me (1pt min.). @ -None done CT interpreted by me (1pt min.). @ -None done U/S interpreted by me (1pt. min.). @ -None done What testing was considered but not performed or refused? (CT, X-rays, U/S, labs)? Why? @ -None What meds were considered but not given or refused? Why? @ -None Did you discuss the management of the patient with other professionals (professionals i.e. , PA, ROD STRAIGHTENER, lab, RT, psych nurse, director social service, taxicab starter, teacher, detention officer, rehabilitation case coordinator)? Give summary @ -No Was smoking cessation discussed for >3mins.? @ -No Was critical care preformed (if so, how long)? @ -No Were there social determinants of health that impacted care today? How? (Homelessness, low income, unemployed, alcoholism, drug addiction, t ransportation, low edu. Level, literacy, decrease access to med. care, longterm, rehab)? @ -No Was there de-escalation of care discussed even if they declined (Discuss DNR or withdrawal of care, Hospice)? DNR status @ -No What co-morbidities impacted this encounter? (DM, HTN, Smoking, COPD, CAD, Cancer, CVA, ARF, Chemo, Hep., AIDS, mental health diagnosis, sleep apnea, morbid obesity)? @ -None Was patient admitted / discharged? Hospital course, mention meds given and route, prescriptions, significant lab abnormalities, going to OR and other pertinent info. @ -53-year-old female well-known to the emergency department presents the ER for acute on chronic neck pain. Documentation from [facility] was reviewed. Patient given analgesics. Observe the emergency department for 2 hours. Reevaluated at bedside at around 1:15 AM found with stable medical condition. Patient discharged told to follow-up with her primary care doctor. She is told to ask her primary care doctor for a pain specialist referral. Undiagnosed new problem with uncertain prognosis? @ -No Drug Therapy requiring intensive monitoring for toxicity (Heparin, Nitro, Insulin, Cardizem)? @ -No Were any procedures done? @ -No Diagnosis/symptom? Acute, or Chronic, or Acute on Chronic? Uncomplicated (without systemic symptoms) or Complicated (systemic symptoms)? @ -1. Acute on chronic neck pain Side effects of treatment? @ -No Exacerbation, Progression, or Severe Exacerbation? @ -No Poses a threat to life or bodily function? How? (Chest pain, [place], [place], pneumonia, PE, COPD, DKA, ARF, appy, cholecystitis, CVA, Diverticulitis, Homicidal, S uicidal, threat to staff... and all critical care pts) @ -No Disposition Clinical Impression: Neck pain Disposition: HOME SELF-CARE Condition: Good Instructions (If sedation given, give patient instructions): Chronic Neck Pain (DC) Is patient prescribed a controlled substance at d/c from ED?: No Referrals: Miya Johnson MD [Primary Care Provider] - 1-2 days Time of Disposition: 01:50
[2023-02-18] MEDS ORDERED: HYDROmorphone 0.5 MG/0.5 ML SYRINGE IM STA (00:48)
[2023-02-18 01:41] VITALS: BP 110/79
== END 2023-02-18 02:26 | disposition home or self-care (01) ==
LOC: EC 23:53
DX: M54.2 Cervicalgia (principal); J44.9 Chronic obstructive pulmonary disease, unspecified; I25.10 Atherosclerotic heart disease of native coronary artery without angina pectoris; I10 Essential (primary) hypertension; I25.2 Old myocardial infarction; Z86.73 Personal history of transient ischemic attack (TIA), and cerebral infarction without residual deficits; F41.9 Anxiety disorder, unspecified; F32.A Depression, unspecified; F17.200 Nicotine dependence, unspecified, uncomplicated; F12.90 Cannabis use, unspecified, uncomplicated; Z88.7 Allergy status to serum and vaccine; Z88.5 Allergy status to narcotic agent; Z91.040 Latex allergy status; Z91.018 Allergy to other foods; Z79.82 Long term (current) use of aspirin; Z79.51 Long term (current) use of inhaled steroids; Z79.899 Other long term (current) drug therapy
CPT/HCPCS: 99284; 96372; J1170

== ENCOUNTER 2023-05-16 21:08 | Observation (INO) | payer OTHER ==
[2023-05-16 22:16] LABS: Anisocytosis Slight; Basophils # (A) 0.1 k/uL (0-0.2); Basophils % (A) 1 %; Eosinophils # (A) 0.1 k/uL (0-0.7); Eosinophils % (A) 1 %; HCT 42.4 % (34.0-46.0); HGB 13.7 gm/dL (11.4-16.0); Lymphocytes # (A) 3.5 k/uL (1.0-4.8); Lymphocytes % (A) 25 %; MCHC 32.2 g/dL (31.0-37.0); MCV 90.1 fL (80.0-100.0); Mean Platelet Volume 7.8; Monocytes # (A) 0.5 k/uL (0-1.0); Monocytes % (A) 3 %; Neutrophils # (A) 9.5 k/uL (1.3-7.7); Neutrophils % (A) 67 %; Platelet Count 331 k/uL (150-450); RDW 18.6 % (11.5-15.5); WBC 14.2 k/uL (3.8-10.6)
[2023-05-16 22:28] LABS: Partial Thromboplastin Time 23.9 sec (22.0-30.0); Prothrombin Time 10.7 sec (9.0-12.0)
[2023-05-16 22:30] LABS: ALT 40 U/L (4-34); African American GFR (CKD) >90 (>60 ml/min/1.73 sqM); Anion Gap 15 mmol/L; Blood Urea Nitrogen 10 mg/dL (7-17); Calcium 8.1 mg/dL (8.4-10.2); Carbon Dioxide 18 mmol/L (22-30); Chloride 107 mmol/L (98-107); Creatine Kinase 760 U/L (30-135); Glucose 114 mg/dL (74-99); Non-African American GFR(CKD) >90 (>60 ml/min/1.73 sqM); Sodium 140 mmol/L (137-145); Total Bilirubin 0.4 mg/dL (0.2-1.3); Total Protein 6.8 g/dL (6.3-8.2)
[2023-05-16 22:47] LABS: AST 81 U/L (14-36); Alcohol 383 mg/dL; Alkaline Phosphatase 127 U/L (38-126); Potassium 3.7 mmol/L (3.5-5.1)
--- NOTE | 2023-05-16 22:51 | CT ---
EXAM: CT Head Without Intravenous Contrast CLINICAL HISTORY: ITS.REASON CT Reason: Neuro deficit, acute, stroke suspected TECHNIQUE: Axial computed tomography images of the head/brain without intravenous contrast. CTDI is 49.1 mGy and DLP is 1138 mGy-cm. This CT exam was performed using one or more of the following dose reduction techniques: automated exposure control, adjustment of the mA and/or kV according to patient size, and/or use of iterative reconstruction technique. COMPARISON: 11/10/2022 FINDINGS: Artifacts: Motion artifact. Brain: Small areas of encephalomalacia in the left frontal parietal lobe. Mild chronic low-attenuation periventricular white matter. No hemorrhage. Ventricles: Unchanged colloid cyst in the foramen of Yu measuring up to 1.2 cm. Bones/joints: Unremarkable. No acute fracture. Soft tissues: Unremarkable. Sinuses: Small mucous retention cyst in the left maxillary sinus. Mild mucosal thickening left ethmoid air cells. Mastoid air cells: Unremarkable as visualized. No mastoid effusion. IMPRESSION: 1. No acute intracranial pathology. 2. Unchanged colloid cyst in the foramen of Yu measuring up to 1.2 cm.
--- NOTE | 2023-05-16 23:18 | XR ---
EXAM: XR Chest, 1 View CLINICAL HISTORY: ITS.REASON XR Reason: altered mental status TECHNIQUE: Frontal view of the chest. COMPARISON: 02/06/2023 FINDINGS: Lungs: No consolidation. Pleural space: No acute findings. No pneumothorax. Heart: No cardiomegaly. Bones/joints: No acute osseous abnormality. IMPRESSION: No acute cardiopulmonary abnormality.
[2023-05-17] MEDS ORDERED: ACETAMINOPHEN TAB 325 MG TAB PO PRN (00:51)
[2023-05-17] MEDS ORDERED: NALOXONE 0.4 MG/ML 1 ML VIAL IV PRN (00:51)
--- NOTE | 2023-05-17 00:51 | ED ---
General Adult HPI - General Chief complaint: Neuro Symptoms/Deficit Stated complaint: Stroke Symptoms Time Seen by Provider: 05/16/23 21:16 Source: patient, EMS Mode of arrival: EMS Limitations: no limitations - History of Present Illness Initial comments: This patient is a 63-year-old woman who presents with complaint that she does not feel well. She states she also feels like her right side is weak. She had right-sided weakness with previous stroke and thinks that this is a little bit similar. Patient also having generalized fatigue stating she couldn't get up and walk. The patient notes that symptoms have been going on approximately 18 hours. She had noted them when she was trying to get up at 4 the morning. She states that she then had to lie back down and she tried resting until she was better but the symptoms continued. Onset/Timin -: hour(s) Location: right, upper extremity Radiation: non-radiation Consistency: constant Improves with: none Worsens with: none Associated Symptoms: denies other symptoms - Related Data Home Medications Medication Instructions Recorded Confirmed Aspirin EC [Ecotrin Low Dose] 81 mg PO DAILY 02/11/19 02/06/23 Metoprolol Succinate (ER) [Toprol 50 mg PO DAILY 06/13/21 02/06/23 XL] Pantoprazole [Protonix] 40 mg PO DAILY 06/13/21 02/06/23 Fluticasone Nasal [place] [Flonase 1 spr EA NOSTRIL DAILY 02/14/22 02/06/23 Nasal [place]] Magnesium Oxide 400 mg PO DAILY 02/14/22 02/06/23 Simvastatin [Zocor] 40 mg PO HS 07/03/22 02/06/23 Vitamin B Complex 1 cap PO DAILY 07/03/22 02/06/23 Brimonidine Tartrate [Alphagan P 1 drop BOTH EYES BID 11/10/22 02/06/23 0.2% Ophth Soln] Budesonide-Formot 160-4.5 Mcg 2 puff INHALATION RT-BID 11/10/22 02/06/23 [Symbicort 160-4.5 Mcg Inhaler] Isosorbide Mononitrate ER [Imdur] 30 mg PO DAILY 11/10/22 02/06/23 Ketorolac [Toradol] 10 mg PO Q8H PRN 11/10/22 02/06/23 Ticagrelor [Brilinta] 90 mg PO BID 01/14/23 02/06/23 Nitroglycerin Sl Tabs [Nitrostat] 0.4 mg SL Q5M PRN 02/06/23 02/06/23 Previous Rx's Medication Instructions Recorded Folic Acid 1 mg PO DAILY #30 tab 06/13/22 Ondansetron Odt [Zofran ODT] 4 mg PO Q8HR PRN #20 tab 06/13/22 Cyclobenzaprine [Flexeril] 10 mg PO TID PRN #20 tab 07/17/22 Albuterol Inhaler [Ventolin Hfa 2 puff INHALATION RT-QID PRN 30 01/22/23 Inhaler] Days #1 each Thiamine [Vitamin B-1] 100 mg PO DAILY #30 tablet 01/22/23 Nicotine 14Mg/24Hr Patch [Habitrol] 1 patch TRANSDERM DAILY patch 02/08/23 Allergies Allergy/AdvReac Type Severity Reaction Status Date / Time latex Allergy Rash/Hives Verified 05/16/23 21:14 tomato Allergy Diarrhea Verified 05/16/23 21:14 Influenza Virus Vaccines AdvReac Nausea & Verified 05/16/23 21:14 Vomiting morphine AdvReac Nausea & Verified 05/16/23 21:14 Vomiting Review of Systems ROS Statement: Those systems with pertinent positive or pertinent negative responses have been documented in the HPI. ROS Other: All systems not noted in ROS Statement are negative. Constitutional: Reports: weakness. Denies: fever, chills Eyes: Denies: vision change Respiratory: Denies: cough, dyspnea Cardiovascular: Denies: chest pain, palpitations, edema Gastrointestinal: Denies: abdominal pain, vomiting, diarrhea Genitourinary: Denies: dysuria, hematuria Musculoskeletal: Denies: back pain Skin: Denies: rash Neurological: Reports: weakness, numbness. Denies: headache, confusion Past Medical History Past Medical History: Asthma, Coronary Artery Disease (CAD), COPD, CVA/TIA, Eye Disorder, Hypertension, Liver Disease, Myocardial Infarction (ID), Seizure Disorder, Vascular Disorder Additional Past Medical History / Comment(s): Pt recently admitted to [facility] for diarrhea, ETOH abuse. 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 soon Last Myocardial Infarction Date:: aug 2018 History of Any Multi-Drug Resistant Organisms: None Reported Past Surgical History: Cholecystectomy, Heart Catheterization, Orthopedic Surgery Additional Past Surgical History / Comment(s): L caratid stent, bilateral knee surgeries for tendon repair, bartholian cyst removed bilateral wrists, cataracts Past Anesthesia/Blood Transfusion Reactions: Motion Sickness Additional Past Anesthesia/Blood Transfusion Reaction / Comment(s): Pt has received blood without reaction. Past Psychological History: Anxiety, Depression Smoking Status: Current every day smoker Past Alcohol Use History: Abuse, Daily, Heavy Past Drug Use History: Marijuana - Past Family History Mother Family Medical History: Cancer, Congestive Heart Failure (CHF), Coronary Artery Disease (CAD), Hyperlipidemia Additional Family Medical History / Comment(s): Mother at age 85 from lung cancer. Father Family Medical History: Cancer, COPD Additional Family Medical History / Comment(s): Father at age 63 from lung cancer. Brother(s) Additional Family Medical History / Comment(s): Patient has a total of 7 siblings. 5 are alive without any major medical problems she is aware of. 2 si blings have one from alcohol abuse and 1. Coronary artery disease. Daughter(s) Additional Family Medical History / Comment(s): Patient has one daughter with no major medical problems. General Exam Limitations: no limitations General appearance: alert, in no apparent distress, appears intoxicated Head exam: Present: atraumatic, normocephalic Eye exam: Present: normal appearance. Absent: scleral icterus, conjunctival injection ENT exam: Present: mucous membranes dry Neck exam: Present: normal inspection, full ROM Respiratory exam: Present: normal lung sounds bilaterally. Absent: respiratory distress, wheezes, rales, rhonchi, stridor Cardiovascular Exam: Present: regular rate, normal rhythm, normal heart sounds. Absent: systolic murmur, diastolic murmur, rubs, gallop GI/Abdominal exam: Present: soft. Absent: distended, tenderness, guarding, rebound, rigid, mass Extremities exam: Present: normal inspection, normal capillary refill. Absent: pedal edema, calf tenderness Back exam: Present: normal inspection. Absent: CVA tenderness (R), CVA tenderness (L) Neurological exam: Present: alert, oriented X3, CN II-XII intact, other (Patient does have some dysarthria and mild ataxia.) Skin exam: Present: warm, dry, intact, normal color. Absent: rash Course Vital Signs 05/16/23 05/16/23 05/16/23 21:09 22:15 23:01 Temperature 98.4 F 98.1 F Pulse Rate 100 95 100 Respiratory 19 20 18 Rate Blood Pressure 124/83 112/85 112/82 O2 Sat by Pulse 95 97 95 Oximetry 05/17/23 03:44 Temperature Pulse Rate 102 H Respiratory 18 Rate Blood Pressure 120/59 O2 Sat by Pulse 96 Oximetry EKG Findings - EKG Results: EKG: interpreted by LISET, sinus rhythm (Rate 100 bpm) - Blocks, [place], Hypertrophy, ST Abn: Chamber hypertrophy or enlargement: left ventricular hypertrophy or enlargement (LVE) Medical Decision Making - Lab Data Result diagrams: 05/16/23 21:34 05/16/23 21:34 Lab Results 05/16/23 05/16/23 05/16/23 Range/Units 21:34 21:34 21:34 WBC 14.2 H (3.8-10.6) k/uL RBC 4.70 (3.80-5.40) m/uL Hgb 13.7 (11.4-16.0) gm/dL Hct 42.4 (34.0-46.0) % MCV 90.1 (80.0-100.0) fL MCH 29.0 (25.0-35.0) pg MCHC 32.2 (31.0-37.0) g/dL RDW 18.6 H (11.5-15.5) % Plt Count 331 (150-450) k/uL MPV 7.8 Neutrophils % 67 % Lymphocytes % 25 % Monocytes % 3 % Eosinophils % 1 % Basophils % 1 % Neutrophils # 9.5 H (1.3-7.7) k/uL Lymphocytes # 3.5 (1.0-4.8) k/uL Monocytes # 0.5 (0-1.0) k/uL Eosinophils # 0.1 (0-0.7) k/uL Basophils # 0.1 (0-0.2) k/uL Anisocytosis Slight PT 10.7 (9.0-12.0) sec INR 1.0 (<1.2) APTT 23.9 (22.0-30.0) sec Sodium 140 (137-145) mmol/L Potassium 3.7 (3.5-5.1) mmol/L Chloride 107 (98-107) mmol/L Carbon Dioxide 18 L (22-30) mmol/L Anion Gap 15 mmol/L BUN 10 (7-17) mg/dL Creatinine 0.50 L (0.52-1.04) mg/dL Est GFR (CKD-EPI)AfAm >90 (>60 ml/min/1.73 sqM) Est GFR (CKD-EPI)NonAf >90 (>60 ml/min/1.73 sqM) Glucose 114 H (74-99) mg/dL Calcium 8.1 L (8.4-10.2) mg/dL Total Bilirubin 0.4 (0.2-1.3) mg/dL AST 81 H (14-36) U/L ALT 40 H (4-34) U/L Alkaline Phosphatase 127 H (38-126) U/L Creatine Kinase 760 H (30-135) U/L Troponin I (0.000-0.034) ng/mL Total Protein 6.8 (6.3-8.2) g/dL Albumin 4.0 (3.5-5.0) g/dL Serum Alcohol 383 H* mg/dL 05/16/23 Range/Units 21:34 WBC (3.8-10.6) k/uL RBC (3.80-5.40) m/uL Hgb (11.4-16.0) gm/dL Hct (34.0-46.0) % MCV (80.0-100.0) fL MCH (25.0-35.0) pg MCHC (31.0-37.0) g/dL RDW (11.5-15.5) % Plt Count (150-450) k/uL MPV Neutrophils % % Lymphocytes % % Monocytes % % Eosinophils % % Basophils % % Neutrophils # (1.3-7.7) k/uL Lymphocytes # (1.0-4.8) k/uL Monocytes # (0-1.0) k/uL Eosinophils # (0-0.7) k/uL Basophils # (0-0.2) k/uL Anisocytosis PT (9.0-12.0) sec INR (<1.2) APTT (22.0-30.0) sec Sodium (137-145) mmol/L Potassium (3.5-5.1) mmol/L Chloride (98-107) mmol/L Carbon Dioxide (22-30) mmol/L Anion Gap mmol/L BUN (7-17) mg/dL Creatinine (0.52-1.04) mg/dL Est GFR (CKD-EPI)AfAm (>60 ml/min/1.73 sqM) Est GFR (CKD-EPI)NonAf (>60 ml/min/1.73 sqM) Glucose (74-99) mg/dL Calcium (8.4-10.2) mg/dL Total Bilirubin (0.2-1.3) mg/dL AST (14-36) U/L ALT (4-34) U/L Alkaline Phosphatase (38-126) U/L Creatine Kinase (30-135) U/L Troponin I 0.018 (0.000-0.034) ng/mL Total Protein (6.3-8.2) g/dL Albumin (3.5-5.0) g/dL Serum Alcohol mg/dL Disposition Clinical Impression: Alcohol intoxication, Right arm weakness, Altered mental status Disposition: ADMITTED IP TO THIS [facility] Condition: Fair
[2023-05-17] MEDS ORDERED: LORazepam 2 MG/ML INJ IV PRN ×2 (00:55)
[2023-05-17] MEDS: SODIUM CHLORIDE 0.9% 1,000 ML IV SCH ×2 (01:30→14:59)
[2023-05-17] MEDS ORDERED: MAG HYDROX/AL HYDROX/SIMETH 30 ML CUP PO PRN (06:00)
[2023-05-17] MEDS ORDERED: SYMBICORT 160-4.5 MCG INHALER INHALATION SCH (08:00)
[2023-05-17] MEDS: ONDANSETRON 4 MG/2 ML VIAL IVP PRN (08:33)
[2023-05-17] MEDS ORDERED: PANTOPRAZOLE 40 MG TABLET PO SCH (09:00)
[2023-05-17] MEDS ORDERED: BRIMONIDINE TARTRATE 0.2% DROPS 5 ML BTL BOTH EYES SCH (09:00)
[2023-05-17] MEDS ORDERED: CYCLOBENZAPRINE 10 MG TAB PO PRN (09:00)
[2023-05-17] MEDS ORDERED: FOLIC ACID 1 MG TAB PO SCH (09:00)
[2023-05-17] MEDS: ALBUTEROL NEBULIZED 2.5 MG/3 ML INHALATION PRN ×2 (09:04→13:24)
[2023-05-17] MEDS ORDERED: NITROGLYCERIN SL TABS 0.4 MG TAB SUBLINGUAL PRN (09:42)
[2023-05-17] MEDS: NICOTINE 14MG/24HR PATCH TRANSDERM SCH (10:02)
[2023-05-17] MEDS: FLUTICASONE 50MCG/SPRAY NASAL 16GM EA NOSTRIL SCH (10:02)
[2023-05-17] MEDS: TICAGRELOR 90 MG TAB PO SCH ×2 (10:03→20:57)
[2023-05-17] MEDS: ASPIRIN 81 MG PO SCH (10:03)
[2023-05-17] MEDS ORDERED: KETOROLAC 15 MG/ML 1 ML VIAL IVP STA (10:03)
[2023-05-17] MEDS: METOPROLOL SUCCINATE (ER) 50 MG TAB.ER.24H PO SCH (10:03)
[2023-05-17] MEDS: FOLIC ACID-VIT B COMPLEX-VIT C 1 CAP PO SCH (10:03)
[2023-05-17] MEDS: FAMOTIDINE 20 MG TAB PO SCH ×2 (10:03→20:57)
[2023-05-17] MEDS: ISOSORBIDE MONONITRATE ER 30 MG TAB.ER.24H PO SCH (10:03)
[2023-05-17] MEDS ORDERED: LORazepam 0.5 MG TAB PO ONE (10:30)
[2023-05-17] MEDS: LORazepam 2 MG/ML INJ IV PRN ×2 (13:07→17:29)
[2023-05-17] MEDS: KETOROLAC 15 MG/ML 1 ML VIAL IVP PRN (17:28)
[2023-05-17] MEDS: ATORVASTATIN 20 MG TAB PO SCH (20:56)
[2023-05-18] MEDS: SODIUM CHLORIDE 0.9% 1,000 ML IV SCH ×3 (00:29→23:29)
[2023-05-18] MEDS: KETOROLAC 15 MG/ML 1 ML VIAL IVP PRN ×3 (00:53→16:08)
[2023-05-18] MEDS ORDERED: THIAMINE 100 MG TAB PO SCH (09:00)
[2023-05-18] MEDS: ALBUTEROL NEBULIZED 2.5 MG/3 ML INHALATION PRN ×2 (09:06→21:31)
[2023-05-18] MEDS: FAMOTIDINE 20 MG TAB PO SCH ×2 (09:40→19:50)
[2023-05-18] MEDS: NICOTINE 14MG/24HR PATCH TRANSDERM SCH (09:40)
[2023-05-18] MEDS: ASPIRIN 81 MG PO SCH (09:40)
[2023-05-18] MEDS: metroNIDAZOLE 500 MG TAB PO SCH ×3 (09:40→21:45)
[2023-05-18] MEDS: TICAGRELOR 90 MG TAB PO SCH ×2 (09:41→19:51)
[2023-05-18] MEDS: FOLIC ACID-VIT B COMPLEX-VIT C 1 CAP PO SCH (09:41)
[2023-05-18] MEDS: ONDANSETRON 4 MG/2 ML VIAL IVP PRN (09:41)
[2023-05-18] MEDS: FLUTICASONE 50MCG/SPRAY NASAL 16GM EA NOSTRIL SCH (09:41)
[2023-05-18] MEDS: METOPROLOL SUCCINATE (ER) 50 MG TAB.ER.24H PO SCH (09:42)
[2023-05-18] MEDS: ISOSORBIDE MONONITRATE ER 30 MG TAB.ER.24H PO SCH (09:42)
[2023-05-18] MEDS: CHERRY FLAVOR 60 ML BOTTLE PO SCH ×3 (15:59→21:45)
[2023-05-18] MEDS: VANCOMYCIN ORAL SOLUTION 250 MG/5 ML BOTTLE PO SCH ×3 (15:59→21:46)
[2023-05-18] MEDS: ATORVASTATIN 20 MG TAB PO SCH (19:51)
[2023-05-18] MEDS: BENZOCAINE/MENTHOL LOZENG 1 EACH LOZENGE MUCOUS MEM PRN (22:32)
[2023-05-19] MEDS: BENZOCAINE/MENTHOL LOZENG 1 EACH LOZENGE MUCOUS MEM PRN (01:54)
[2023-05-19] MEDS: TICAGRELOR 90 MG TAB PO SCH ×2 (08:55→20:38)
[2023-05-19] MEDS: FOLIC ACID-VIT B COMPLEX-VIT C 1 CAP PO SCH (08:55)
[2023-05-19] MEDS: metroNIDAZOLE 500 MG TAB PO SCH ×3 (08:55→20:37)
[2023-05-19] MEDS: ASPIRIN 81 MG PO SCH (08:56)
[2023-05-19] MEDS: VANCOMYCIN ORAL SOLUTION 250 MG/5 ML BOTTLE PO SCH ×4 (08:56→20:38)
[2023-05-19] MEDS: NICOTINE 14MG/24HR PATCH TRANSDERM SCH (08:56)
[2023-05-19] MEDS: METOPROLOL SUCCINATE (ER) 50 MG TAB.ER.24H PO SCH (08:56)
[2023-05-19] MEDS: ISOSORBIDE MONONITRATE ER 30 MG TAB.ER.24H PO SCH (08:56)
[2023-05-19] MEDS: FAMOTIDINE 20 MG TAB PO SCH ×2 (08:56→20:38)
[2023-05-19] MEDS: CHERRY FLAVOR 60 ML BOTTLE PO SCH ×4 (08:56→20:38)
[2023-05-19] MEDS: FLUTICASONE 50MCG/SPRAY NASAL 16GM EA NOSTRIL SCH (10:58)
--- NOTE | 2023-05-19 11:02 | P.HPIM ---
History of Present Illness H&P Date: 05/17/23 Chief Complaint: Right-sided weakness 63-year-old woman, history of hypertension, hyperlipidemia, asthma/COPD, CAD, seizure disorder, who presents with complaint that she does not feel well. She states she also feels like her right side is weak. She had right-sided weakness with previous stroke and thinks that this is a little bit similar. Patient also having generalized fatigue stating she couldn't get up and walk. The patient notes that symptoms have been going on approximately 18 hours. She had noted them when she was trying to get up at 4 the morning. She states that she then had to lie back down and she tried resting until she was better but the symptoms continued. Blood work completed in ED reveals a WBC of 14.2, hemoglobin of 13.7, platelet count of 331, sodium of 140, potassium 3.7, BUN/creatinine of 10/0.5, blood glucose of 114, AST elevated at 81, ALT of 40, CK of 760, serum alcohol level of 383 Review of Systems Constitutional: Reports: weakness. Denies: fever, chills Eyes: Denies: vision change Respiratory: Denies: cough, dyspnea Cardiovascular: Denies: chest pain, palpitations, edema Gastrointestinal: Denies: abdominal pain, vomiting, diarrhea Genitourinary: Denies: dysuria, hematuria Musculoskeletal: Denies: back pain Skin: Denies: rash Neurological: Reports: weakness, numbness. Denies: headache, confusion Past Medical History Past Medical History: Asthma, Coronary Artery Disease (CAD), COPD, CVA/TIA, Eye Disorder, Hypertension, Liver Disease, Myocardial Infarction (DC), Seizure Disorder, Vascular Disorder Additional Past Medical History / Comment(s): Pt recently admitted to [facility] for diarrhea, ETOH abuse. 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 soon Last Myocardial Infarction Date:: aug 2018 History of Any Multi-Drug Resistant Organisms: None Reported Past Surgical History: Cholecystectomy, Heart Catheterization, Orthopedic Surgery Additional Past Surgical History / Comment(s): L caratid stent, bilateral knee surgeries for tendon repair, bartholian cyst removed bilateral wrists, cataracts Past Anesthesia/Blood Transfusion Reactions: Motion Sickness Additional Past Anesthesia/Blood Transfusion Reaction / Comment(s): Pt has received blood without reaction. Past Psychological History: Anxiety, Depression Smoking Status: Current every day smoker Past Alcohol Use History: Abuse, Daily, Heavy Past Drug Use History: Marijuana - Past Family History Mother Family Medical History: Cancer, Congestive Heart Failure (CHF), Coronary Artery Disease (CAD), Hyperlipidemia Additional Family Medical History / Comment(s): Mother at age 85 from lung cancer. Father Family Medical History: Cancer, COPD Additional Family Medical History / Comment(s): Father at age 63 from lung cancer. Brother(s) Additional Family Medical History / Comment(s): Patient has a total of 7 siblings. 5 are alive without any major medical problems she is aware of. 2 siblings have one from alcohol abuse and 1. Coronary artery disease. Daughter(s) Additional Family Medical History / Comment(s): Patient has one daughter with no major medical problems. Medications and Allergies Home Medications Medication Instructions Recorded Confirmed Type Aspirin EC [Ecotrin Low Dose] 81 mg PO DAILY 02/11/19 05/17/23 History Metoprolol Succinate (ER) [Toprol 50 mg PO DAILY 06/13/21 05/17/23 History XL] Fluticasone Nasal [place] [Flonase 1 spr EA NOSTRIL DAILY 02/14/22 05/17/23 History Nasal [place]] Ondansetron Odt [Zofran ODT] 4 mg PO Q8HR PRN #20 tab 06/13/22 05/17/23 Rx Simvastatin [Zocor] 40 mg PO HS 07/03/22 05/17/23 History Isosorbide Mononitrate ER [Imdur] 30 mg PO DAILY 11/10/22 05/17/23 History Ticagrelor [Brilinta] 90 mg PO BID 01/14/23 05/17/23 History Albuterol Inhaler [Ventolin Hfa 2 puff INHALATION RT-QID PRN 30 01/22/23 05/17/23 Rx Inhaler] Days #1 each Nitroglycerin Sl Tabs [Nitrostat] 0.4 mg SL Q5M PRN 02/06/23 05/17/23 History Albuterol Nebulized [Ventolin 2.5 mg INHALATION RT-QID PRN 05/17/23 05/17/23 History Nebulized] Ergocalciferol (Vitamin D2) 1,250 mcg PO Q7D 05/17/23 05/17/23 History [Drisdol (50,000 Iu)] Allergies Allergy/AdvReac Type Severity Reaction Status Date / Time latex Allergy Rash/Hives Verified 05/17/23 06:49 tomato Allergy Diarrhea Verified 05/17/23 06:49 Influenza Virus Vaccines AdvReac Nausea & Verified 05/17/23 06:49 Vomiting morphine AdvReac Nausea & Verified 05/17/23 06:49 Vomiting Physical Exam Vitals: Vital Signs Temp Pulse Pulse Resp BP BP Pulse Ox 05/17/23 13:37 94 05/17/23 13:24 94 05/17/23 11:51 97.9 F 98 16 154/106 95 05/17/23 09:16 98 05/17/23 09:06 98 05/17/23 07:55 98.1 F 103 H 16 145/100 95 05/17/23 06:38 98 16 171/98 94 L 05/17/23 03:44 102 H 18 120/59 96 05/17/23 01:30 99 14 161/96 95 05/16/23 23:01 98.1 F 100 18 112/82 95 05/16/23 22:15 95 20 112/85 97 05/16/23 21:09 98.4 F 100 19 124/83 95 Intake and Output 05/16/23 05/17/23 05/17/23 22:59 06:59 14:59 Other: Voiding Method Bedpan Weight 78.471 kg General appearance: alert, in no apparent distress, appears intoxicated Head exam: Present: atraumatic, normocephalic Eye exam: Present: normal appearance. Absent: scleral icterus, conjunctival injection ENT exam: Present: mucous membranes dry Neck exam: Present: normal inspection, full ROM Respiratory exam: Present: normal lung sounds bilaterally. Absent: respiratory distress, wheezes, rales, rhonchi, stridor Cardiovascular Exam: Present: regular rate, normal rhythm, normal heart sounds. Absent: systolic murmur, diastolic murmur, rubs, gallop GI/Abdominal exam: Present: soft. Absent: distended, tenderness, guarding, rebound, rigid, mass Extremities exam: Present: normal inspection, normal capillary refill. Absent: pedal edema, calf tenderness Back exam: Present: normal inspection. Absent: CVA tenderness (R), CVA tenderness (L) Neurological exam: Present: alert, oriented X3, CN II-XII intact, other (Patient does have some dysarthria and mild ataxia.) Skin exam: Present: warm, dry, intact, normal color. Absent: rash Results CBC & Chem 7: 05/16/23 21:34 05/16/23 21:34 Labs: Abnormal Lab Results - Last 24 Hours (Table) 05/16/23 05/16/23 Range/Units 21:34 21:34 WBC 14.2 H (3.8-10.6) k/uL RDW 18.6 H (11.5-15.5) % Neutrophils # 9.5 H (1.3-7.7) k/uL Carbon Dioxide 18 L (22-30) mmol/L Creatinine 0.50 L (0.52-1.04) mg/dL Glucose 114 H (74-99) mg/dL Calcium 8.1 L (8.4-10.2) mg/dL AST 81 H (14-36) U/L ALT 40 H (4-34) U/L Alkaline Phosphatase 127 H (38-126) U/L Creatine Kinase 760 H (30-135) U/L Serum Alcohol 383 H* mg/dL Assessment and Plan Assessment: 1. Alcohol intoxication - Patient has been placed on IV fluids; thiamine and folic acid - [facility] protocol with Ativan - Counseling done on need for abstinence from alcohol 2. Altered mental status likely related to alcohol intoxication; workup completed in ED including CT of the head is unremarkable 3. Leukocytosis; patient complains of watery diarrhea; we will send stool sample for C. diff; start treatment once results are available 4. Transaminitis; related to alcohol abuse and statin therapy; we will monitor liver enzymes 5. Hypertension; Toprol-XL 50 mg daily; Imdur 30 mg daily 6. Hyperlipidemia; Zocor 40 mg daily at bedtime 7. COPD/asthma; not in exacerbation; continue home inhalers therapy with Ventolin and Symbicort 8. Coronary artery disease; patient remains on aspirin, statins, metoprolol, Imdur and Brilinta DVT prophylaxis; SCDs CODE STATUS; full code
--- NOTE | 2023-05-19 11:04 | P.PN ---
Subjective Progress Note Date: 05/18/23 Principal diagnosis: Alcohol intoxication C. diff colitis 63-year-old woman, history of hypertension, hyperlipidemia, asthma/COPD, CAD, seizure disorder, who presents with complaint that she does not feel well. She states she also feels like her right side is weak. She had right-sided weakness with previous stroke and thinks that this is a little bit similar. Patient also having generalized fatigue stating she couldn't get up and walk. The patient notes that symptoms have been going on approximately 18 hours. She had noted them when she was trying to get up at 4 the morning. She states that she then had to lie back down and she tried resting until she was better but the symptoms continued. Blood work completed in ED reveals a WBC of 14.2, hemoglobin of 13.7, platelet count of 331, sodium of 140, potassium 3.7, BUN/creatinine of 10/0.5, blood glucose of 114, AST elevated at 81, ALT of 40, CK of 760, serum alcohol level of 383 --- Stool is positive for C. diff toxin; patient continues to have several episodes of watery diarrhea; has been placed on Flagyl 500 mg every 8 hours; we will add vancomycin 125 mg every 8 Objective - Vital Signs Vital signs: Vital Signs Temp 98.1 F 05/18/23 07:00 Pulse 88 05/18/23 09:17 Resp 16 05/18/23 07:00 BP 131/86 05/18/23 07:00 Pulse Ox 98 05/18/23 09:10 FiO2 Intake & Output 05/17/23 05/18/23 05/18/23 18:59 06:59 18:59 Weight 78.471 kg Other: Voiding Method Bedpan Bedpan External Catheter # Voids 2 1 1 # Bowel Movements 2 2 2 - Exam PHYSICAL EXAMINATION: GENERAL: The patient is alert and oriented x3, not in any acute distress. Well developed, well nourished. HEENT: Pupils are round and equally reacting to light. EOMI. No scleral icterus. No conjunctival pallor. Normocephalic, atraumatic. No pharyngeal erythema. No thyromegaly. CARDIOVASCULAR: S1 and S2 present. No murmurs, rubs, or gallops. PULMONARY: Chest is clear to auscultation, no wheezing or crackles. ABDOMEN: Soft, nontender, nondistended, normoactive bowel sounds. No palpable organomegaly. MUSCULOSKELETAL: No joint swelling or deformity. EXTREMITIES: No cyanosis, clubbing, or pedal edema. NEUROLOGICAL: Gross neurological examination did not reveal any focal deficits. SKIN: No rashes. - Labs CBC & Chem 7: 05/16/23 21:34 05/16/23 21:34 Labs: Abnormal Lab Results - Last 24 Hours (Table) 05/17/23 Range/Units 16:02 C. difficile (EIA) Intrp Positive A (Negative) Assessment and Plan Assessment: 1. Alcohol intoxication - Patient has been placed on IV fluids; thiamine and folic acid - [facility] protocol with Ativan - Counseling done on need for abstinence from alcohol 2. Altered mental status likely related to alcohol intoxication; workup completed in ED including CT of the head is unremarkable 3. Leukocytosis; patient complains of watery diarrhea; we will send stool sample for C. diff; start treatment once results are available 4. Transaminitis; related to alcohol abuse and statin therapy; we will monitor liver enzymes 5. Hypertension; Toprol-XL 50 mg daily; Imdur 30 mg daily 6. Hyperlipidemia; Zocor 40 mg daily at bedtime 7. COPD/asthma; not in exacerbation; continue home inhalers therapy with Ventolin and Symbicort 8. Coronary artery disease; patient remains on aspirin, statins, metoprolol, Imdur and Brilinta DVT prophylaxis; SCDs CODE STATUS; full code
[2023-05-19 11:38] LABS: African American GFR (CKD) >90 (>60 ml/min/1.73 sqM); Anion Gap 4 mmol/L; Blood Urea Nitrogen 4 mg/dL (7-17); Calcium 8.6 mg/dL (8.4-10.2); Carbon Dioxide 28 mmol/L (22-30); Chloride 107 mmol/L (98-107); Glucose 105 mg/dL (74-99); Non-African American GFR(CKD) >90 (>60 ml/min/1.73 sqM); Potassium 3.7 mmol/L (3.5-5.1); Sodium 139 mmol/L (137-145)
[2023-05-19 11:46] LABS: Anisocytosis Slight; Basophils % (A) 0 %; Eosinophils # (A) 0.2 k/uL (0-0.7); Eosinophils % (A) 3 %; HCT 38.1 % (34.0-46.0); HGB 12.1 gm/dL (11.4-16.0); Hypochromasia Slight; Lymphocytes # (A) 1.1 k/uL (1.0-4.8); Lymphocytes % (A) 15 %; MCH 29.1 pg (25.0-35.0); MCHC 31.8 g/dL (31.0-37.0); MCV 91.3 fL (80.0-100.0); Mean Platelet Volume 8.5; Monocytes # (A) 0.3 k/uL (0-1.0); Monocytes % (A) 3 %; Neutrophils # (A) 5.4 k/uL (1.3-7.7); Neutrophils % (A) 75 %; RBC 4.18 m/uL (3.80-5.40); RDW 17.7 % (11.5-15.5); WBC 7.2 k/uL (3.8-10.6)
[2023-05-19 12:27] LABS: Platelet Count 128 k/uL (150-450)
[2023-05-19] MEDS: ALBUTEROL NEBULIZED 2.5 MG/3 ML INHALATION PRN (16:06)
[2023-05-19] MEDS: SODIUM CHLORIDE 0.9% 1,000 ML IV SCH (20:36)
[2023-05-19] MEDS: ATORVASTATIN 20 MG TAB PO SCH (20:38)
[2023-05-19] MEDS: KETOROLAC 15 MG/ML 1 ML VIAL IVP PRN (22:47)
[2023-05-20] MEDS: BENZOCAINE/MENTHOL LOZENG 1 EACH LOZENGE MUCOUS MEM PRN (04:35)
[2023-05-20 07:02] VITALS: BP 185/95; PULSE 95; RESP 16; TEMP 97.7
--- NOTE | 2023-05-20 07:21 | P.PN ---
Subjective Progress Note Date: 05/19/23 Principal diagnosis: Alcohol intoxication C. diff colitis 63-year-old woman, history of hypertension, hyperlipidemia, asthma/COPD, CAD, seizure disorder, who presents with complaint that she does not feel well. She states she also feels like her right side is weak. She had right-sided weakness with previous stroke and thinks that this is a little bit similar. Patient also having generalized fatigue stating she couldn't get up and walk. The patient notes that symptoms have been going on approximately 18 hours. She had noted them when she was trying to get up at 4 the morning. She states that she then had to lie back down and she tried resting until she was better but the symptoms continued. Blood work completed in ED reveals a WBC of 14.2, hemoglobin of 13.7, platelet count of 331, sodium of 140, potassium 3.7, BUN/creatinine of 10/0.5, blood glucose of 114, AST elevated at 81, ALT of 40, CK of 760, serum alcohol level of 383 --- Stool is positive for C. diff toxin; patient continues to have several episodes of watery diarrhea; has been placed on Flagyl 500 mg every 8 hours; we will add vancomycin 125 mg every 8 05/19/2023 Patient is seen and evaluated sitting up in bedside chair; continues to report excessive diarrhea; no further nausea Vital signs are reviewed and remained stable -- Patient is currently on Flagyl 500 mg every 8 hours and vancomycin 125 mg every 8 hours; we will plan to discontinue Flagyl and possible discharge on oral vancomycin to complete a 14 day of treatment --- Patient continues to be able to tolerate her diet Discharge in next 24 hours if remains stable Objective - Vital Signs Vital signs: Vital Signs Temp 98.0 F 05/19/23 07:00 Pulse 84 05/19/23 07:00 Resp 16 05/19/23 07:00 BP 159/75 05/19/23 07:00 Pulse Ox 96 05/19/23 07:00 FiO2 Intake & Output 05/18/23 05/19/23 05/19/23 18:59 06:59 18:59 Intake Total 118 Balance 118 Intake: Oral 118 Other: Voiding Method External Catheter External Catheter # Voids 0 1 # Bowel Movements 2 0 - Exam PHYSICAL EXAMINATION: GENERAL: The patient is alert and oriented x3, not in any acute distress. Well developed, well nourished. HEENT: Pupils are round and equally reacting to light. EOMI. No scleral icterus. No conjunctival pallor. Normocephalic, atraumatic. No pharyngeal erythema. No thyromegaly. CARDIOVASCULAR: S1 and S2 present. No murmurs, rubs, or gallops. PULMONARY: Chest is clear to auscultation, no wheezing or crackles. ABDOMEN: Soft, nontender, nondistended, normoactive bowel sounds. No palpable organomegaly. MUSCULOSKELETAL: No joint swelling or deformity. EXTREMITIES: No cyanosis, clubbing, or pedal edema. NEUROLOGICAL: Gross neurological examination did not reveal any focal deficits. SKIN: No rashes. - Labs CBC & Chem 7: 05/19/23 11:06 05/19/23 11:06 Assessment and Plan Assessment: 1. Alcohol intoxication - Patient has been placed on IV fluids; thiamine and folic acid - [facility] protocol with Ativan - Counseling done on need for abstinence from alcohol 2. Altered mental status likely related to alcohol intoxication; workup completed in ED including CT of the head is unremarkable 3. Leukocytosis; patient complains of watery diarrhea; we will send stool sample for C. diff; start treatment once results are available 4. Transaminitis; related to alcohol abuse and statin therapy; we will monitor liver enzymes 5. Hypertension; Toprol-XL 50 mg daily; Imdur 30 mg daily 6. Hyperlipidemia; Zocor 40 mg daily at bedtime 7. COPD/asthma; not in exacerbation; continue home inhalers therapy with Ventolin and Symbicort 8. Coronary artery disease; patient remains on aspirin, statins, metoprolol, Imdur and Brilinta DVT prophylaxis; SCDs CODE STATUS; full code
[2023-05-20] MEDS: ASPIRIN 81 MG PO SCH (08:22)
[2023-05-20] MEDS: ISOSORBIDE MONONITRATE ER 30 MG TAB.ER.24H PO SCH (08:22)
[2023-05-20] MEDS: METOPROLOL SUCCINATE (ER) 50 MG TAB.ER.24H PO SCH (08:22)
[2023-05-20] MEDS: TICAGRELOR 90 MG TAB PO SCH (08:23)
[2023-05-20] MEDS: FAMOTIDINE 20 MG TAB PO SCH (08:23)
[2023-05-20] MEDS: FLUTICASONE 50MCG/SPRAY NASAL 16GM EA NOSTRIL SCH (08:23)
[2023-05-20] MEDS: CHERRY FLAVOR 60 ML BOTTLE PO SCH (08:23)
[2023-05-20] MEDS: FOLIC ACID-VIT B COMPLEX-VIT C 1 CAP PO SCH (08:23)
[2023-05-20] MEDS: VANCOMYCIN ORAL SOLUTION 250 MG/5 ML BOTTLE PO SCH (08:23)
[2023-05-20] MEDS: SODIUM CHLORIDE 0.9% 1,000 ML IV SCH (08:26)
[2023-05-20] MEDS: NICOTINE 14MG/24HR PATCH TRANSDERM SCH (08:26)
[2023-05-20 13:52] LABS: BUN/Creat Ratio 10.33 Ratio (12.00-20.00); Blood Urea Nitrogen 6.2 mg/dL (9.0-27.0); Calcium 8.7 mg/dL (8.7-10.3); Carbon Dioxide 22.2 mmol/L (21.6-31.8); Chloride 101 mmol/L (96-109); Glucose 109 mg/dL (70-110); Potassium 4.3 mmol/L (3.5-5.5); Sodium 138 mmol/L (135-145)
[2023-05-21] MEDS ORDERED: ERGOCALCIFEROL 1,250 MCG (50,000 IU) CAPSULE PO SCH (09:00)
== END 2023-05-20 09:10 | disposition home or self-care (01) ==
LOC: EC 21:08 → 6NMEDSUR 05-17 00:51
PROVIDERS: ADMIT Hospitalist; ATTEND Hospitalist
DX: F10.120 Alcohol abuse with intoxication, uncomplicated (principal); A04.72 Enterocolitis due to Clostridium difficile, not specified as recurrent; R41.82 Altered mental status, unspecified; G93.89 Other specified disorders of brain; J34.1 Cyst and mucocele of nose and nasal sinus; I69.351 Hemiplegia and hemiparesis following cerebral infarction affecting right dominant side; I10 Essential (primary) hypertension; I25.10 Atherosclerotic heart disease of native coronary artery without angina pectoris; J44.9 Chronic obstructive pulmonary disease, unspecified; I25.2 Old myocardial infarction; G40.909 Epilepsy, unspecified, not intractable, without status epilepticus; D64.9 Anemia, unspecified; K58.9 Irritable bowel syndrome, unspecified; E78.5 Hyperlipidemia, unspecified; F41.9 Anxiety disorder, unspecified; F32.A Depression, unspecified; F17.200 Nicotine dependence, unspecified, uncomplicated; Z79.82 Long term (current) use of aspirin; Z79.899 Other long term (current) drug therapy; Z79.51 Long term (current) use of inhaled steroids; Z79.02 Long term (current) use of antithrombotics/antiplatelets; Z91.040 Latex allergy status; Z88.7 Allergy status to serum and vaccine; Z88.6 Allergy status to analgesic agent; Z98.42 Cataract extraction status, left eye; Z98.41 Cataract extraction status, right eye; Z90.49 Acquired absence of other specified parts of digestive tract; Z82.49 Family history of ischemic heart disease and other diseases of the circulatory system; Z80.1 Family history of malignant neoplasm of trachea, bronchus and lung; Z82.5 Family history of asthma and other chronic lower respiratory diseases; Z63.4 Disappearance and death of family member; Z81.1 Family history of alcohol abuse and dependence; Y90.8 Blood alcohol level of 240 mg/100 ml or more
CPT/HCPCS: 96376 ×3; 96361 ×3; 96374; 96375; 99285; 36415; 94640 ×5; 94760; 93005; 80053; 80048 ×2; 82550; 84484 ×2; 85025 ×2; 85610; 85730; 87324; 71045; 70450; G0378 ×4; G0480; S4990 ×3; J2060; J2405 ×2; J1885 ×3; 80320

== ENCOUNTER 2023-05-23 13:51 | Observation (INO) | payer OTHER ==
[2023-05-23] MEDS ORDERED: SODIUM CHLORIDE 0.9% 1,000 ML IV ONE (14:52)
--- NOTE | 2023-05-23 14:56 | ED ---
Alcohol HPI - General Chief Complaint: Alcohol Stated Complaint: ETOH Time Seen by Provider: 05/23/23 13:56 Source: patient, EMS, RN notes reviewed Mode of arrival: EMS Limitations: altered mental status - History of Present Illness Initial Comments: This a 63-year-old female presents emergency department via EMS chief complaint alcohol intoxication. Patient was complaining of back pain EMS ride funded to be severely intoxicated patient no focal complaints otherwise. Denies any head injury. Patient has known alcoholic she states that her neighbor visor alcohol for. Patient was recently admitted and was being treated for C. diff. Patient denies reported fever. - Related Data Home Medications Medication Instructions Recorded Confirmed Aspirin EC [Ecotrin Low Dose] 81 mg PO DAILY 02/11/19 05/17/23 Metoprolol Succinate (ER) [Toprol 50 mg PO DAILY 06/13/21 05/17/23 XL] Fluticasone Nasal [place] [Flonase 1 spr EA NOSTRIL DAILY 02/14/22 05/17/23 Nasal [place]] Simvastatin [Zocor] 40 mg PO HS 07/03/22 05/17/23 Isosorbide Mononitrate ER [Imdur] 30 mg PO DAILY 11/10/22 05/17/23 Ticagrelor [Brilinta] 90 mg PO BID 01/14/23 05/17/23 Nitroglycerin Sl Tabs [Nitrostat] 0.4 mg SL Q5M PRN 02/06/23 05/17/23 Albuterol Nebulized [Ventolin 2.5 mg INHALATION RT-QID PRN 05/17/23 05/17/23 Nebulized] Ergocalciferol (Vitamin D2) 1,250 mcg PO Q7D 05/17/23 05/17/23 [Drisdol (50,000 Iu)] Previous Rx's Medication Instructions Recorded Ondansetron Odt [Zofran ODT] 4 mg PO Q8HR PRN #20 tab 06/13/22 Albuterol Inhaler [Ventolin Hfa 2 puff INHALATION RT-QID PRN 30 01/22/23 Inhaler] Days #1 each Folic Acid-Vit B Complex-Vit C 1 each PO DAILY cap 05/20/23 [Nephrocaps] Thiamine [Vitamin B-1] 100 mg PO DAILY 30 Days #30 tablet 05/20/23 Vancomycin 125 mg PO QID 10 Days #40 capsule 05/20/23 Vancomycin Oral Solution 125 mg PO QID 10 Days #200 ml 05/20/23 Allergies Allergy/AdvReac Type Severity Reaction Status Date / Time latex Allergy Rash/Hives Verified 05/17/23 06:49 tomato Allergy Diarrhea Verified 05/17/23 06:49 Influenza Virus Vaccines AdvReac Nausea & Verified 05/17/23 06:49 Vomiting morphine AdvReac Nausea & Verified 05/17/23 06:49 Vomiting Review of Systems ROS Statement: Those systems with pertinent positive or pertinent negative responses have been documented in the HPI. ROS Other: All systems not noted in ROS Statement are negative. Past Medical History Past Medical History: Asthma, Coronary Artery Disease (CAD), COPD, CVA/TIA, Eye Disorder, Hypertension, Liver Disease, Myocardial Infarction ([place]), Seizure Disorder, Vascular Disorder Additional Past Medical History / Comment(s): Pt recently admitted to [facility] [place] for diarrhea, ETOH abuse. 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 soon Last Myocardial Infarction Date:: aug 2018 History of Any Multi-Drug Resistant Organisms: None Reported Past Surgical History: Cholecystectomy, Heart Catheterization, Orthopedic Surgery Additional Past Surgical History / Comment(s): L caratid stent, bilateral knee surgeries for tendon repair, bartholian cyst removed bilateral wrists, cataracts Past Anesthesia/Blood Transfusion Reactions: Motion Sickness Additional Past Anesthesia/Blood Transfusion Reaction / Comment(s): Pt has rec eived blood without reaction. Past Psychological History: Anxiety, Depression Smoking Status: Current every day smoker Past Alcohol Use History: Abuse, Daily, Heavy Past Drug Use History: Marijuana - Past Family History Mother Family Medical History: Cancer, Congestive Heart Failure (CHF), Coronary Artery Disease (CAD), Hyperlipidemia Additional Family Medical History / Comment(s): Mother at age 85 from lung cancer. Father Family Medical History: Cancer, COPD Additional Family Medical History / Comment(s): Father at age 63 from lung cancer. Brother(s) Additional Family Medical History / Comment(s): Patient has a total of 7 siblings. 5 are alive without any major medical problems she is aware of. 2 siblings have one from alcohol abuse and 1. Coronary artery disease. Daughter(s) Additional Family Medical History / Comment(s): Patient has one daughter with no major medical problems. General Exam Limitations: altered mental status General appearance: alert, in no apparent distress, appears intoxicated Head exam: Present: atraumatic, normocephalic, normal inspection Eye exam: Present: normal appearance, PERRL, EOMI. Absent: scleral icterus, conjunctival injection, periorbital swelling Neck exam: Present: normal inspection. Absent: tenderness, meningismus, lymphadenopathy Respiratory exam: Present: normal lung sounds bilaterally. Absent: respiratory distress, wheezes, rales, rhonchi, stridor Cardiovascular Exam: Present: regular rate, normal rhythm, normal heart sounds. Absent: systolic murmur, diastolic murmur, rubs, gallop, clicks GI/Abdominal exam: Present: soft, normal bowel sounds. Absent: distended, tenderness, guarding, rebound, rigid Neurological exam: Present: alert Course Vital Signs 05/23/23 14:17 Temperature 98.4 F Pulse Rate 86 Respiratory 18 Rate Blood Pressure 119/88 O2 Sat by Pulse 95 Oximetry Medical Decision Making - Medical Decision Making Was pt. sent in by a medical professional or institution (YESSY Lloyd, ROCK DRILL OPERATOR, urgent care, hospital, or long term...) When possible be specific @ -No Did you speak to anyone other than the patient for history (EMS, parent, family, police, friend...)? What history was obtained from this source @ -No Did you review nursing and triage notes (agree or disagree)? Why? @ -I reviewed and agree with nursing and triage notes Were old charts reviewed (outside hosp., previous admission, EMS record, old EKG, old radiological studies, urgent care reports/EKG's, long term records)? Report findings @ -Reviewed recent laboratory studies, admission Differential Diagnosis (chest pain, altered mental status, abdominal pain women, abdominal pain men, vaginal bleeding, weakness, fever, dyspnea, syncope, headache, dizziness, GI bleed, back pain, seizure, CVA, palpatations, mental he alth, musculoskeletal)? @ -Alcohol abuse, alcohol intoxication EKG interpreted by me (3pts min.). @ -None X-rays interpreted by me (1pt min.). @ -None done CT interpreted by me (1pt min.). @ -None done U/S interpreted by me (1pt. min.). @ -None done What testing was considered but not performed or refused? (CT, X-rays, U/S, labs)? Why? @ -None What meds were considered but not given or refused? Why? @ -None Did you discuss the management of the patient with other professionals (professionals i.e. , PA, ROCK DRILL OPERATOR, lab, RT, psych nurse, manager social work, meeting coordinator, teacher, fire management officer, case fitter)? Give summary @ -Dr. Cardoza for admission secondary to severe alcohol intoxication Was smoking cessation discussed for >3mins.? @ -No Was critical care preformed (if so, how long)? @ -No Were there social determinants of health that impacted care today? How? (Homelessness, low income, unemployed, alcoholism, drug addiction, transportation, low edu. Level, literacy, decrease access to med. care, usp, rehab)? @ -No Was there de-escalation of care discussed even if they declined (Discuss DNR or withdrawal of care, Hospice)? DNR status @ -No What co-morbidities impacted this encounter? (DM, HTN, Smoking, COPD, CAD, Cancer, CVA, ARF, Chemo, Hep., AIDS, mental health diagnosis, sleep apnea, morbid obesity)? @ -Alcohol abuse Was patient admitted / discharged? Hospital course, mention meds given and rou te, prescriptions, significant lab abnormalities, going to OR and other pertinent info. @ -Admitted patient has alcohol 404. Patient is no one to pick her up, She is severely intoxicated patient will be admitted and will continue oral antibiotics for C. diff Undiagnosed new problem with uncertain prognosis? @ -No Drug Therapy requiring intensive monitoring for toxicity (Heparin, Nitro, Insulin, Cardizem)? @ -No Were any procedures done? @ -No Diagnosis/symptom? @ -Alcohol intoxication Acute, or Chronic, or Acute on Chronic? @ -Acute Uncomplicated (without systemic symptoms) or Complicated (systemic symptoms)? @ -Complicated Side effects of treatment? @ -No Exacerbation, Progression, or Severe Exacerbation? @ -No Poses a threat to life or bodily function? How? (Chest pain, [place], [place], pneumonia, PE, COPD, DKA, ARF, appy, cholecystitis, CVA, Diverticulitis, Homicidal, Suicidal, threat to staff... and all critical care pts) @ -No - Lab Data Result diagrams: 05/23/23 15:01 05/23/23 15:01 Lab Results 05/23/23 05/23/23 Range/Units 15:01 15:01 WBC 7.2 (3.8-10.6) k/uL RBC 4.29 (3.80-5.40) m/uL Hgb 12.4 (11.4-16.0) gm/dL Hct 38.9 (34.0-46.0) % MCV 90.5 (80.0-100.0) fL MCH 28.9 (25.0-35.0) pg MCHC 31.9 (31.0-37.0) g/dL RDW 18.4 H (11.5-15.5) % Plt Count 153 (150-450) k/uL MPV 7.8 Neutrophils % 57 % Lymphocytes % 35 % Monocytes % 3 % Eosinophils % 2 % Basophils % 1 % Neutrophils # 4.1 (1.3-7.7) k/uL Lymphocytes # 2.5 (1.0-4.8) k/uL Monocytes # 0.2 (0-1.0) k/uL Eosinophils # 0.2 (0-0.7) k/uL Basophils # 0.1 (0-0.2) k/uL Anisocytosis Slight Sodium 141 (137-145) mmol/L Potassium 3.5 (3.5-5.1) mmol/L Chloride 105 (98-107) mmol/L Carbon Dioxide 23 (22-30) mmol/L Anion Gap 13 mmol/L BUN 6 L (7-17) mg/dL Creatinine 0.50 L (0.52-1.04) mg/dL Est GFR (CKD-EPI)AfAm >90 (>60 ml/min/1.73 sqM) Est GFR (CKD-EPI)NonAf >90 (>60 ml/min/1.73 sqM) Glucose 87 (74-99) mg/dL Calcium 8.3 L (8.4-10.2) mg/dL Magnesium 1.9 (1.6-2.3) mg/dL Total Bilirubin 0.3 (0.2-1.3) mg/dL AST 102 H (14-36) U/L ALT 61 H (4-34) U/L Alkaline Phosphatase 152 H (38-126) U/L Total Protein 6.6 (6.3-8.2) g/dL Albumin 4.0 (3.5-5.0) g/dL Serum Alcohol 404 H* mg/dL Disposition Clinical Impression: Alcoholic hepatitis, Alcohol intoxication, C. difficile diarrhea Disposition: ADMITTED IP TO THIS HOSP Condition: Fair Referrals: Miya Johnson MD [Primary Care Provider] - 1-2 days Forms: Outpatient Counseling, Inp Substance Abuse Facilities, Personal [facility] Time of Disposition: 15:58
[2023-05-23 15:19] LABS: Anisocytosis Slight; Basophils # (A) 0.1 k/uL (0-0.2); Basophils % (A) 1 %; Eosinophils # (A) 0.2 k/uL (0-0.7); Eosinophils % (A) 2 %; HCT 38.9 % (34.0-46.0); HGB 12.4 gm/dL (11.4-16.0); Lymphocytes # (A) 2.5 k/uL (1.0-4.8); Lymphocytes % (A) 35 %; MCH 28.9 pg (25.0-35.0); MCHC 31.9 g/dL (31.0-37.0); MCV 90.5 fL (80.0-100.0); Mean Platelet Volume 7.8; Monocytes # (A) 0.2 k/uL (0-1.0); Monocytes % (A) 3 %; Neutrophils # (A) 4.1 k/uL (1.3-7.7); Neutrophils % (A) 57 %; Platelet Count 153 k/uL (150-450); RBC 4.29 m/uL (3.80-5.40); RDW 18.4 % (11.5-15.5); WBC 7.2 k/uL (3.8-10.6)
[2023-05-23 15:33] LABS: ALT 61 U/L (4-34); AST 102 U/L (14-36); African American GFR (CKD) >90 (>60 ml/min/1.73 sqM); Alkaline Phosphatase 152 U/L (38-126); Anion Gap 13 mmol/L; Blood Urea Nitrogen 6 mg/dL (7-17); Calcium 8.3 mg/dL (8.4-10.2); Carbon Dioxide 23 mmol/L (22-30); Chloride 105 mmol/L (98-107); Glucose 87 mg/dL (74-99); Magnesium 1.9 mg/dL (1.6-2.3); Non-African American GFR(CKD) >90 (>60 ml/min/1.73 sqM); Potassium 3.5 mmol/L (3.5-5.1); Sodium 141 mmol/L (137-145); Total Bilirubin 0.3 mg/dL (0.2-1.3); Total Protein 6.6 g/dL (6.3-8.2)
[2023-05-23 15:52] LABS: Alcohol 404 mg/dL
[2023-05-23] MEDS ORDERED: NALOXONE 0.4 MG/ML 1 ML VIAL IV PRN (15:59)
[2023-05-23] MEDS ORDERED: ONDANSETRON 4 MG/2 ML VIAL IVP PRN (15:59)
[2023-05-23] MEDS ORDERED: LORazepam 1 MG TAB PO PRN ×3 (16:00)
[2023-05-23] MEDS: VANCOMYCIN 125 MG CAPSULE PO SCH ×2 (17:55→21:38)
[2023-05-23] MEDS: LORazepam 0.5 MG TAB PO PRN (17:55)
[2023-05-23] MEDS: SODIUM CHLORIDE 0.9% 1,000 ML IV SCH (17:58)
[2023-05-23] MEDS ORDERED: ALBUTEROL HFA INHALER INHALATION PRN (19:45)
[2023-05-23] MEDS ORDERED: ARTIFICIAL TEARS-HYPROMELLOSE DROPS 15 ML BTL BOTH EYES PRN (19:47)
[2023-05-23] MEDS ORDERED: CALCIUM CARBONATE 500 MG CHEWABLE PO PRN (20:04)
[2023-05-23] MEDS ORDERED: ERGOCALCIFEROL 1,250 MCG (50,000 IU) CAPSULE PO SCH (20:30)
[2023-05-23] MEDS: FLUTICASONE 50MCG/SPRAY NASAL 16GM EA NOSTRIL SCH (20:58)
[2023-05-23] MEDS: ATORVASTATIN 20 MG TAB PO SCH (20:59)
[2023-05-23] MEDS: TICAGRELOR 90 MG TAB PO SCH (20:59)
[2023-05-23] MEDS: NICOTINE 21MG/24HR PATCH TRANSDERM SCH (20:59)
[2023-05-23] MEDS: BRIMONIDINE TARTRATE 0.2% DROPS 5 ML BTL BOTH EYES SCH ×2 (20:59→22:24)
[2023-05-23] MEDS: HYDROcodone/APAP 5-325MG 1 EACH TAB PO PRN (21:38)
[2023-05-23] MEDS: ALBUTEROL NEBULIZED 2.5 MG/3 ML INHALATION PRN (23:52)
[2023-05-24] MEDS: LORazepam 0.5 MG TAB PO PRN ×2 (01:09→11:30)
[2023-05-24] MEDS: HYDROcodone/APAP 5-325MG 1 EACH TAB PO PRN ×2 (04:02→20:30)
[2023-05-24] MEDS: SODIUM CHLORIDE 0.9% 1,000 ML IV SCH ×2 (05:18→17:22)
[2023-05-24] MEDS: ALBUTEROL NEBULIZED 2.5 MG/3 ML INHALATION PRN ×2 (09:26→21:27)
[2023-05-24] MEDS: TICAGRELOR 90 MG TAB PO SCH ×2 (09:45→20:30)
[2023-05-24] MEDS: ASPIRIN 81 MG PO SCH (09:45)
[2023-05-24] MEDS: THIAMINE 100 MG TAB PO SCH ×2 (09:45→09:47)
[2023-05-24] MEDS: METOPROLOL SUCCINATE (ER) 50 MG TAB.ER.24H PO SCH (09:46)
[2023-05-24] MEDS: VANCOMYCIN 125 MG CAPSULE PO SCH ×4 (09:46→20:29)
[2023-05-24] MEDS: FLUTICASONE 50MCG/SPRAY NASAL 16GM EA NOSTRIL SCH (09:46)
[2023-05-24] MEDS: NICOTINE 21MG/24HR PATCH TRANSDERM SCH (09:46)
[2023-05-24] MEDS: FOLIC ACID-VIT B COMPLEX-VIT C 1 CAP PO SCH (09:46)
[2023-05-24] MEDS: ISOSORBIDE MONONITRATE ER 30 MG TAB.ER.24H PO SCH (09:46)
[2023-05-24] MEDS: BRIMONIDINE TARTRATE 0.2% DROPS 5 ML BTL BOTH EYES SCH ×2 (09:47→16:28)
[2023-05-24] MEDS ORDERED: Potassium Replacement Protocol 1 EACH MISC MISCELLANE PRN (10:30)
[2023-05-24] MEDS ORDERED: Magnesium Replacement Protocol 1 EACH MISC MISCELLANE PRN (10:30)
--- NOTE | 2023-05-24 11:06 | HP ---
HISTORY AND PHYSICAL CHIEF COMPLAINT: Alcohol intoxication. HISTORY OF PRESENT ILLNESS: This is a 63-year-old woman with a past medical history of multiple medical problems, was recently admitted with alcohol intoxication and C. difficile colitis. The patient went home. The patient apparently continues to drink. The patient complains of weakness and tiredness. The patient came to [facility] and admitted for further evaluation. There is no history of any fever, rigors, or chills at this time. PAST MEDICAL HISTORY: History of C. difficile colitis, history of alcohol, COPD, multiple medical issues. Rest of the history and rest of the chart is also reviewed. HOME MEDICATIONS: Reviewed include p.o. vancomycin. The rest of the dose and medications reviewed. ALLERGIES: Latex. Rest of the allergies noted. FAMILY HISTORY: History of CHF, CAD. SOCIAL HISTORY: Smoking, alcohol. REVIEW OF SYSTEMS: A 14-point review is negative except as mentioned earlier. PHYSICAL EXAMINATION: VITAL SIGNS: Pulse is 111, blood pressure 167/97, respirations 18. HEENT: Conjunctivae normal. NECK: No JVD. CARDIOVASCULAR: S1, S2. RESPIRATIONS: Clear to auscultation. ABDOMEN: Soft, obese, nontender. No mass. LEGS: No edema. NERVOUS SYSTEM: Diffusely weak. SKIN: No ulcer, rash, bleeding. JOINTS: No active deforming arthropathy. LABORATORY DATA: Reviewed. ASSESSMENT: 1. Acute alcohol intoxication. 2. History of recent Clostridium difficile colitis. 3. Generalized weakness and tiredness. 4. Dehydration. 5. Asthma. 6. Coronary artery disease. 7. Chronic obstructive pulmonary disease. 8. Hypertension. 9. Chronic liver disease. 10.Seizure disorder. 11.Multiple complex medical issues. RECOMMENDATIONS: Recommend to continue current medications, continue symptomatic treatment. Otherwise, at this time, continue with vancomycin, IV fluids. Repeat labs. Acute evaluation. CIWA protocol. Prognosis guarded. Further recommendations to follow. MMODL / IJN: [id number] /
--- NOTE | 2023-05-24 13:28 | P.CRDCN ---
History of Present Illness Consult date: 05/24/23 Consult reason: chest pain History of present illness: HISTORY OF PRESENT ILLNESS: This is a 63-year-old female with a past medical history significant for coronary artery disease with chronic total occlusion of the RCA, hypertension, hyperlipidemia, COPD, CVA, left carotid stent, tobacco use and dependence and alcohol abuse. Patient follows in the office with Dr. Howard. We have been asked to see the patient in consultation for chest pain. Patient states she was recently hospitalized with C. diff colitis and states she had difficulty getting her prescription filled at her pharmacy and ended up coming back in the hospital for ongoing diarrhea. Note that ER documentation is a patient presented due to alcohol intoxication. Patient denies having any chest pain. EKG reveals sinus tachycardia at 101 bpm CBC is unremarkable. Electrolytes are normal. Creatinine 0.5. Troponin negative 2. His serum alcohol level 404, AST 102, ALT 61, alkaline phosphatase 152. Current home cardiac medications include aspirin 81 mg daily, Imdur 30 mg daily, metoprolol succinate 50 mg daily, Nitrostat as needed, Brilinta 90 mg twice daily. Echocardiogram performed in January 2023 revealed ejection fraction 55-60% with mild mitral regurgitation and small pericardial effusion Cardiac catheterization 01/2023 revealed chronic total occlusion of the right coronary artery. No significant obstructive CAD involving the LAD where stress test was abnormal. Lexiscan stress test 01/2023 revealed stress-induced ischemic change injury lateral wall from the midportion to the cardiac apex. Patient underwent JOSE in June 2022 with no evidence of intracardiac thrombus, no evidence of shunting across interatrial septum, [id number] mitral regurgitation REVIEW OF SYSTEMS: At the time of my exam: CONSTITUTIONAL: Denies fever or chills. HEENT: Denies blurred vision, vision changes, or eye pain. Denies hemoptysis CARDIOVASCULAR: Denies chest pain. Denies orthopnea. Denies PND. Denies palpitations RESPIRATORY: Denies shortness of breath. GASTROINTESTINAL: Denies abdominal pain. Denies nausea or vomiting. Reports diarrhea HEMATOLOGIC: Denies bleeding disorders. GENITOURINARY: Denies any blood in urine. SKIN: Denies pruitis. Denies rash. PHYSICAL EXAM: VITAL SIGNS: Reviewed. GENERAL: Well-developed in no acute distress. HEENT: Head is normocephalic. Pupils are equal, round. Sclerae anicteric. Mucous membranes of the mouth are moist. Neck supple. No JVD or thyromegaly LUNGS: Respirations even and unlabored. Lungs essentially clear to auscultation bilaterally. HEART: Regular rate and rhythm. S1 and S2 heard. ABDOMEN: Soft. Nondistended. Nontender. EXTREMITIES: Normal range of motion. No clubbing or cyanosis. Peripheral pulses intact. No lower extremity edema NEUROLOGIC: Awake and alert. Oriented x 3. ASSESSMENT: Chest pain, acute coronary syndrome ruled out C. difficile colitis Acute alcohol intoxication Coronary artery disease with known chronic total occlusion of RCA History of left carotid stent Hypertension Hyperlipidemia CVA COPD Chronic left shoulder pain Alcohol abuse Nicotine dependence PLAN: An acute coronary and has been ruled out No need to repeat echocardiogram Resume home cardiac medications Patient is cleared from cardiology for discharge home. Nurse practitioner note has been reviewed by physician. Signing provider agrees with the documented findings, assessment, and plan of care. Past Medical History Past Medical History: Asthma, Coronary Artery Disease (CAD), COPD, CVA/TIA, Eye Disorder, Hypertension, Liver Disease, Myocardial Infarction ([place]), Seizure Disorder, Vascular Disorder Additional Past Medical History / Comment(s): Pt recently admitted to [facility] for diarrhea, ETOH abuse. 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 soon Last Myocardial Infarction Date:: aug 2018 History of Any Multi-Drug Resistant Organisms: None Reported Past Surgical History: Cholecystectomy, Heart Catheterization, Orthopedic Surgery Additional Past Surgical History / Comment(s): L caratid stent, bilateral knee surgeries for tendon repair, bartholian cyst removed bilateral wrists, cataracts Past Anesthesia/Blood Transfusion Reactions: Motion Sickness Additional Past Anesthesia/Blood Transfusion Reaction / Comment(s): Pt has received blood without reaction. Past Psychological History: Anxiety, Depression Additional Psychological History / Comment(s): Pt states lately her stress/anxiety has been increased. She uses a walker to ambulate. She has a nebulizer. She no longer drives, Pt manages her own meds. She states meals are an issue d/t difficulty standing/using a walker. Smoking Status: Current every day smoker Past Alcohol Use History: Abuse, Daily, Heavy Additional Past Alcohol Use History / Comment(s): Pt started smoking as a teen and has cut down to 1 pack / day. Pt. states she has been drinking more to stay warm because she lost power. Drinks ~8 shots / day. Past Drug Use History: Marijuana Additional Drug Use History / Comment(s): Pt has medical marijuana, reports she has not used it in a while. - Past Family History Mother Family Medical History: Cancer, Congestive Heart Failure (CHF), Coronary Artery Disease (CAD), Hyperlipidemia Additional Family Medical History / Comment(s): Mother at age 85 from lung cancer. Father Family Medical History: Cancer, COPD Additional Family Medical History / Comment(s): Father at age 63 from lung cancer. Brother(s) Additional Family Medical History / Comment(s): Patient has a total of 7 siblings. 5 are alive without any major medical problems she is aware of. 2 siblings have one from alcohol abuse and 1. Coronary artery disease. Daughter(s) Additional Family Medical History / Comment(s): Patient has one daughter with no major medical problems. Medications and Allergies Home Medications Medication Instructions Recorded Confirmed Type Aspirin EC [Ecotrin Low Dose] 81 mg PO DAILY 02/11/19 05/23/23 History Metoprolol Succinate (ER) [Toprol 50 mg PO DAILY 06/13/21 05/23/23 History XL] Fluticasone Nasal [place] [Flonase 1 spr EA NOSTRIL DAILY 02/14/22 05/23/23 History Nasal [place]] Ondansetron Odt [Zofran ODT] 4 mg PO Q8HR PRN #20 tab 06/13/22 05/23/23 Rx Simvastatin [Zocor] 40 mg PO HS 07/03/22 05/23/23 History Isosorbide Mononitrate ER [Imdur] 30 mg PO DAILY 11/10/22 05/23/23 History Ticagrelor [Brilinta] 90 mg PO BID 01/14/23 05/23/23 History Albuterol Inhaler [Ventolin Hfa 2 puff INHALATION RT-QID PRN 30 01/22/23 05/23/23 Rx Inhaler] Days #1 each Nitroglycerin Sl Tabs [Nitrostat] 0.4 mg SL Q5M PRN 02/06/23 05/23/23 History Albuterol Nebulized [Ventolin 2.5 mg INHALATION RT-QID PRN 05/17/23 05/23/23 History Nebulized] Ergocalciferol (Vitamin D2) 1,250 mcg PO Q7D 05/17/23 05/23/23 History [Drisdol (50,000 Iu)] Thiamine [Vitamin B-1] 100 mg PO DAILY 30 Days #30 tablet 05/20/23 05/23/23 Rx Vancomycin 125 mg PO QID 10 Days #40 capsule 05/20/23 05/23/23 Rx Folic Acid-Vit B Complex-Vit C 1 cap PO DAILY 05/23/23 05/23/23 History [Nephrocaps] Allergies Allergy/AdvReac Type Severity Reaction Status Date / Time latex Allergy Rash/Hives Verified 05/23/23 16:53 tomato Allergy Diarrhea Verified 05/23/23 16:53 Influenza Virus Vaccines AdvReac Nausea & Verified 05/23/23 16:53 Vomiting morphine AdvReac Nausea & Verified 05/23/23 16:53 Vomiting Physical Exam Vitals: Vital Signs Temp Pulse Pulse Resp BP BP BP 05/24/23 03:23 97.8 F 101 H 18 167/97 05/24/23 00:27 98.4 F 101 H 14 134/85 05/24/23 00:00 100 05/23/23 23:52 100 05/23/23 23:22 100 155/92 05/23/23 20:00 98.2 F 97 16 123/84 05/23/23 14:17 98.4 F 86 18 119/88 Pulse Ox 05/24/23 03:23 97 05/24/23 00:27 94 L 05/24/23 00:00 05/23/23 23:52 05/23/23 23:22 93 L 05/23/23 20:00 96 05/23/23 14:17 95 Intake and Output 05/23/23 05/24/23 05/24/23 22:59 06:59 14:59 Other: # Voids 3 2 Weight 77.111 kg Results 05/23/23 15:01 05/23/23 15:01 Cardiac Enzymes 07/12/23 07/13/23 Range/Units 15:01 04:59 AST 102 H (14-36) U/L Troponin I 0.032 (0.000-0.034) ng/mL CBC 05/23/23 Range/Units 15:01 WBC 7.2 (3.8-10.6) k/uL RBC 4.29 (3.80-5.40) m/uL Hgb 12.4 (11.4-16.0) gm/dL Hct 38.9 (34.0-46.0) % Plt Count 153 (150-450) k/uL Comprehensive Metabolic Panel 05/23/23 Range/Units 15:01 Sodium 141 (137-145) mmol/L Potassium 3.5 (3.5-5.1) mmol/L Chloride 105 (98-107) mmol/L Carbon Dioxide 23 (22-30) mmol/L BUN 6 L (7-17) mg/dL Creatinine 0.50 L (0.52-1.04) mg/dL Glucose 87 (74-99) mg/dL Calcium 8.3 L (8.4-10.2) mg/dL AST 102 H (14-36) U/L ALT 61 H (4-34) U/L Alkaline Phosphatase 152 H (38-126) U/L Total Protein 6.6 (6.3-8.2) g/dL Albumin 4.0 (3.5-5.0) g/dL Current Medications Generic Name Dose Route Start Last Admin Trade Name Freq PRN Reason Stop Dose Admin Hydrocodone Bitart/Acetaminophen 1 each 05/23/23 21:08 05/24/23 04:02 Hydrocodone/Apap 5-325mg 1 Each Tab PO 1 each Q6HR PRN Administration Pain Albuterol Sulfate 2.5 mg 05/23/23 19:45 05/23/23 23:52 Albuterol Nebulized 2.5 Mg/3 Ml INHALATION 2.5 mg RT-QID PRN Administration Shortness Of Breath Artificial Tears 2 drops 05/23/23 19:47 Artificial Tears-Hypromellose Drops 15 Ml Btl BOTH EYES QID PRN Dry Eye(s) Aspirin 81 mg 05/24/23 09:00 Aspirin 81 Mg PO DAILY MAGY Atorvastatin Calcium 20 mg 05/23/23 21:00 05/23/23 20:59 Atorvastatin 20 Mg Tab PO 20 mg HS MAGY Administration Brimonidine Tartrate 1 drops 05/23/23 20:00 05/23/23 22:24 Brimonidine Tartrate 0.2% Drops 5 Ml Btl BOTH EYES Not Given Q8HR MAGY Calcium Carbonate/Glycine 1,000 mg 05/23/23 20:04 05/23/23 20:59 Calcium Carbonate 500 Mg Chewable PO 1,000 mg TID PRN Administration Heartburn Ergocalciferol 1,250 mcg 05/23/23 20:30 05/23/23 21:38 Ergocalciferol 1,250 Mcg (50,000 Iu) Capsule PO 1,250 mcg Q7D MAGY Administration Fluticasone Propionate 1 spray 05/23/23 19:45 05/23/23 20:58 Fluticasone 50mcg/[place] Nasal 16gm EA NOSTRIL 1 spray DAILY MAGY Administration Sodium Chloride 1,000 mls @ 75 mls/hr 05/23/23 16:00 05/24/23 05:18 Saline 0.9% IV Not Given .[id number] MAGY Isosorbide Mononitrate 30 mg 05/24/23 09:00 Isosorbide Mononitrate Er 30 Mg Tab.Er.24h PO DAILY MAGY Lorazepam 0.5 mg 05/23/23 16:00 05/24/23 01:09 Lorazepam 0.5 Mg Tab PO 0.5 mg Q4HR PRN Administration [place] 4 To 5 Lorazepam 1 mg 05/23/23 16:00 Lorazepam 1 Mg Tab PO Q4HR PRN [place] 6 To 7 Lorazepam 2 mg 05/23/23 16:00 Lorazepam 1 Mg Tab PO Q2HR PRN [place] 10 or greater Lorazepam 2 mg 05/23/23 16:00 Lorazepam 1 Mg Tab PO Q3HR PRN [place] 8 To 9 Metoprolol Succinate 50 mg 05/24/23 09:00 Metoprolol Succinate (Er) 50 Mg Tab.Er.24h PO DAILY [facility] Multivit/Ca Carb/B Cmplx/FA/Prenat 1 each 05/24/23 09:00 Folic Acid-Vit B Complex-Vit C 1 Cap PO DAILY MAGY Naloxone HCl 0.2 mg 05/23/23 15:59 Naloxone 0.4 Mg/Ml 1 Ml Vial IV Q2M PRN Opioid Reversal Nicotine 1 patch 05/23/23 20:00 05/23/23 20:59 Nicotine 21mg/24hr Patch TRANSDERM 1 patch DAILY MAGY Administration Ondansetron HCl 4 mg 05/23/23 15:59 05/23/23 22:53 Ondansetron 4 Mg/2 Ml Vial IVP 4 mg Q8HR PRN Administration Nausea And Vomiting Thiamine HCl 100 mg 05/24/23 09:00 Thiamine 100 Mg Tab PO DAILY MAGY Thiamine HCl 100 mg 05/24/23 09:00 Thiamine 100 Mg Tab PO DAILY MAGY Ticagrelor 90 mg 05/23/23 21:00 05/23/23 20:59 Ticagrelor 90 Mg Tab PO 90 mg BID MAGY Administration Vancomycin HCl 125 mg 05/23/23 18:00 05/23/23 21:38 Vancomycin 125 Mg Capsule PO 05/29/23 23:00 125 mg QID MAGY Administration Protocol Intake and Output 05/23/23 05/24/23 05/24/23 22:59 06:59 14:59 Other: # Voids 3 2 Weight 77.111 kg 05/23/23 15:01 05/23/23 15:01
[2023-05-24] MEDS: ATORVASTATIN 20 MG TAB PO SCH (20:29)
--- NOTE | 2023-05-24 22:53 | P.CONS ---
History of Present Illness - Reason for Consult Consult date: 05/24/23 C. diff, continue diarrhea Requesting physician: Tonya Adan - Chief Complaint Worsening diarrhea x 2 days - History of Present Illness Patient is a 63-year-old female was recently admitted at [facility] and treated for diverticulitis after finishing treatment patient subsequently went up and diarrhea and was diagnosed with C. difficile colitis, for which the patient was admitted at [facility] from 05/17/2023 till 05/20/2023 patient was given oral vancomycin and did have improvement patient mention however on discharge she was not able to get her oral vancomycin as it was ordered as liquid and not as capsule, after patient did get her medication she started taking it however coming back to the hospital concerning for signi ficant diarrhea with many loose stool no blood or mucus in the stool did have some crampy abdominal pain, denies high-grade fever or chills patient on presentation to the hospital was afebrile and no fever has been recorded subsequently patient did have a normal white count kidney function was normal no signs of mild elevated did have elevated serum alcohol level patient was started on oral vancomycin infectious was consulted for further management of antibiotic therapy Review of Systems Positive point and negatives has been mentioned in the HPI, complete review of systems was performed and all other systems are negative Past Medical History Past Medical History: Asthma, Coronary Artery Disease (CAD), COPD, CVA/TIA, Eye Disorder, Hypertension, Liver Disease, Myocardial Infarction ([place]), Seizure Disorder, Vascular Disorder Additional Past Medical History / Comment(s): Pt recently admitted to [facility] for diarrhea, ETOH abuse. 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 soon Last Myocardial Infarction Date:: aug 2018 History of Any Multi-Drug Resistant Organisms: None Reported Past Surgical History: Cholecystectomy, Heart Catheterization, Orthopedic Surgery Additional Past Surgical History / Comment(s): L caratid stent, bilateral knee surgeries for tendon repair, bartholian cyst removed bilateral wrists, cataracts Past Anesthesia/Blood Transfusion Reactions: Motion Sickness Additional Past Anesthesia/Blood Transfusion Reaction / Comm: Pt has received blood without reaction. Past Psychological History: Anxiety, Depression Additional Psychological History / Comment(s): Pt states lately her stress/anxiety has been increased. She uses a walker to ambulate. She has a nebulizer. She no longer drives, Pt manages her own meds. She states meals are an issue d/t difficulty standing/using a walker. Smoking Status: Current every day smoker Past Alcohol Use History: Abuse, Daily, Heavy Additional Past Alcohol Use History / Comment(s): Pt started smoking as a teen and has cut down to 1 pack / day. Pt. states she has been drinking more to stay warm because she lost power. Drinks ~8 shots / day. Past Drug Use History: Marijuana Additional Drug Use History / Comment(s): Pt has medical marijuana, reports she has not used it in a while. - Past Family History Mother Family Medical History: Cancer, Congestive Heart Failure (CHF), Coronary Artery Disease (CAD), Hyperlipidemia Additional Family Medical History / Comment(s): Mother at age 85 from lung cancer. Father Family Medical History: Cancer, COPD Additional Family Medical History / Comment(s): Father at age 63 from lung cancer. Brother(s) Additional Family Medical History / Comment(s): Patient has a total of 7 sibl ings. 5 are alive without any major medical problems she is aware of. 2 siblings have one from alcohol abuse and 1. Coronary artery disease. Daughter(s) Additional Family Medical History / Comment(s): Patient has one daughter with no major medical problems. Medications and Allergies Home Medications Medication Instructions Recorded Confirmed Type Aspirin EC [Ecotrin Low Dose] 81 mg PO DAILY 02/11/19 05/23/23 History Metoprolol Succinate (ER) [Toprol 50 mg PO DAILY 06/13/21 05/23/23 History XL] Fluticasone Nasal [place] [Flonase 1 spr EA NOSTRIL DAILY 02/14/22 05/23/23 History Nasal [place]] Ondansetron Odt [Zofran ODT] 4 mg PO Q8HR PRN #20 tab 06/13/22 05/23/23 Rx Simvastatin [Zocor] 40 mg PO HS 07/03/22 05/23/23 History Isosorbide Mononitrate ER [Imdur] 30 mg PO DAILY 11/10/22 05/23/23 History Ticagrelor [Brilinta] 90 mg PO BID 01/14/23 05/23/23 History Albuterol Inhaler [Ventolin Hfa 2 puff INHALATION RT-QID PRN 30 01/22/23 05/23/23 Rx Inhaler] Days #1 each Nitroglycerin Sl Tabs [Nitrostat] 0.4 mg SL Q5M PRN 02/06/23 05/23/23 History Albuterol Nebulized [Ventolin 2.5 mg INHALATION RT-QID PRN 05/17/23 05/23/23 History Nebulized] Ergocalciferol (Vitamin D2) 1,250 mcg PO Q7D 05/17/23 05/23/23 History [Drisdol (50,000 Iu)] Thiamine [Vitamin B-1] 100 mg PO DAILY 30 Days #30 tablet 05/20/23 05/23/23 Rx Folic Acid-Vit B Complex-Vit C 1 cap PO DAILY 05/23/23 05/23/23 History [Nephrocaps] Nicotine 21Mg/24Hr Patch [Habitrol] 1 patch TRANSDERM DAILY patch 05/25/23 Rx Vancomycin 250 mg PO Q6H 30 Days #80 cap 05/25/23 Rx Allergies Allergy/AdvReac Type Severity Reaction Status Date / Time latex Allergy Rash/Hives Verified 05/23/23 16:53 tomato Allergy Diarrhea Verified 05/23/23 16:53 Influenza Virus Vaccines AdvReac Nausea & Verified 05/23/23 16:53 Vomiting morphine AdvReac Nausea & Verified 05/23/23 16:53 Vomiting Physical Exam Vitals: Vital Signs Temp Pulse Pulse Resp BP BP BP 05/24/23 10:00 147/88 05/24/23 09:38 102 H 05/24/23 09:28 96 05/24/23 07:00 98.1 F 111 H 16 05/24/23 03:23 97.8 F 101 H 18 167/97 05/24/23 00:27 98.4 F 101 H 14 134/85 05/24/23 00:00 100 05/23/23 23:52 100 05/23/23 23:22 100 155/92 05/23/23 20:00 98.2 F 97 16 123/84 05/23/23 14:17 98.4 F 86 18 119/88 Pulse Ox 05/24/23 10:00 05/24/23 09:38 05/24/23 09:28 05/24/23 07:00 96 05/24/23 03:23 97 05/24/23 00:27 94 L 05/24/23 00:00 05/23/23 23:52 05/23/23 23:22 93 L 05/23/23 20:00 96 05/23/23 14:17 95 Intake and Output 05/23/23 05/24/23 05/24/23 22:59 06:59 14:59 Other: # Voids 3 2 Weight 77.111 kg GENERAL DESCRIPTION: Middle-aged female lying in bed, no distress. No tachypnea or accessory muscle of respiration use. HEENT: Shows Pallor , no scleral icterus. Oral mucous membrane is dry. No pharyngeal erythema or thrush NECK: Trachea central, no thyromegaly. LUNGS: Unlabored breathing. Clear to auscultation anteriorly. No wheeze or c rackle. HEART: S1, S2, regular rate and rhythm. No loud murmur ABDOMEN: Soft, mild tenderness EXTREMITIES: No edema of feet. SKIN: No rash, no masses palpable. NEUROLOGICAL: The patient is awake, alert, oriented x3, mood and affect normal. Results CBC & Chem 7: 05/25/23 06:18 05/25/23 06:18 Labs: Abnormal Lab Results - Last 24 Hours (Table) 05/23/23 05/23/23 Range/Units 15:01 15:01 RDW 18.4 H (11.5-15.5) % BUN 6 L (7-17) mg/dL Creatinine 0.50 L (0.52-1.04) mg/dL Calcium 8.3 L (8.4-10.2) mg/dL AST 102 H (14-36) U/L ALT 61 H (4-34) U/L Alkaline Phosphatase 152 H (38-126) U/L Serum Alcohol 404 H* mg/dL Assessment and Plan (1) C. difficile colitis Status: Acute Code(s): A04.72 - ENTEROCOLITIS D/T CLOSTRIDIUM DIFFICILE, NOT SPCF RECUR SNOMED Code(s): 179199342 Plan: 1patient with recent antibiotic exposure for diverticulitis now present to hospital with diarrhea secondary to C. difficile colitis apparently did have some interruption of her treatment more likely responsible for recurrence of her diarrhea rather than failure of treatment at the patient report no bowel movement of the patient was started on oral vancomycin 2-patient to continue with oral vancomycin 250 p.o. every 6 hours to finish a 10-day course of therapy 3-patient had encouraged increase her probiotic and yogurt intake We will follow on clinical condition and cultures to further adjust medication if needed Thank you for this consultation we will follow the patient along with you Time with Patient: Greater than 30
[2023-05-25] MEDS: BRIMONIDINE TARTRATE 0.2% DROPS 5 ML BTL BOTH EYES SCH ×2 (00:18→10:52)
[2023-05-25 07:11] VITALS: BP 123/85; RESP 16; TEMP 98.1
[2023-05-25] MEDS: SODIUM CHLORIDE 0.9% 1,000 ML IV SCH (07:30)
[2023-05-25] MEDS: ALBUTEROL NEBULIZED 2.5 MG/3 ML INHALATION PRN (09:33)
[2023-05-25 09:48] VITALS: PULSE 94
--- NOTE | 2023-05-25 10:19 | P.PN ---
Subjective Progress Note Date: 05/25/23 HISTORY OF PRESENT ILLNESS: This is a 63-year-old female with a past medical history significant for co ronary artery disease with chronic total occlusion of the RCA, hypertension, hyperlipidemia, COPD, CVA, left carotid stent, tobacco use and dependence and alcohol abuse. Patient follows in the office with Dr. Howard. We have been asked to see the patient in consultation for chest pain. Patient states she was recently hospitalized with C. diff colitis and states she had difficulty getting her prescription filled at her pharmacy and ended up coming back in the hospital for ongoing diarrhea. Note that ER documentation is a patient presented due to alcohol intoxication. Patient denies having any chest pain. EKG reveals sinus tachycardia at 101 bpm CBC is unremarkable. Electrolytes are normal. Creatinine 0.5. Troponin negative 2. His serum alcohol level 404, AST 102, ALT 61, alkaline phosphatase 152. Current home cardiac medications include aspirin 81 mg daily, Imdur 30 mg daily, metoprolol succinate 50 mg daily, Nitrostat as needed, Brilinta 90 mg twice daily. Echocardiogram performed in January 2023 revealed ejection fraction 55-60% with mild mitral regurgitation and small pericardial effusion Cardiac catheterization 01/2023 revealed chronic total occlusion of the right coronary artery. No significant obstructive CAD involving the LAD where stress test was abnormal. Lexiscan stress test 01/2023 revealed stress-induced ischemic change injury lateral wall from the midportion to the cardiac apex. Patient underwent JOSE in June 2022 with no evidence of intracardiac thrombus, no evidence of shunting across interatrial septum, [id number] mitral regurgitation 05/25 patient is seen today in follow-up. She states she is feeling a lot better today. No chest pain, shortness of breath, lightheadedness or dizziness.Blood pressure 123/85, heart rate in the 90s. PHYSICAL EXAM: VITAL SIGNS: Reviewed. GENERAL: Well-developed in no acute distress. HEENT: Head is normocephalic. Pupils are equal, round. Sclerae anicteric. Mucous membranes of the mouth are moist. Neck supple. No JVD or thyromegaly LUNGS: Respirations even and unlabored. Lungs essentially clear to auscultation bilaterally. HEART: Regular rate and rhythm. S1 and S2 heard. ABDOMEN: Soft. Nondistended. Nontender. EXTREMITIES: Normal range of motion. No clubbing or cyanosis. Peripheral pulses intact. No lower extremity edema NEUROLOGIC: Awake and alert. Oriented x 3. ASSESSMENT: Chest pain, acute coronary syndrome ruled out C. difficile colitis Acute alcohol intoxication Coronary artery disease with known chronic total occlusion of RCA History of left carotid stent Hypertension Hyperlipidemia CVA COPD Chronic left shoulder pain Alcohol abuse Nicotine dependence PLAN: An acute coronary and has been ruled out No need to repeat echocardiogram Patient is cleared from cardiology for discharge home. Nurse practitioner note has been reviewed by physician. Signing provider agrees with the documented findings, assessment, and plan of care. Objective - Vital Signs Vital signs: Vital Signs Temp 98.1 F 05/25/23 07:10 Pulse 93 05/25/23 07:10 Resp 16 05/25/23 07:10 BP 123/85 05/25/23 07:10 Pulse Ox 95 05/25/23 07:10 FiO2 Intake & Output 05/24/23 05/25/23 05/25/23 18:59 06:59 18:59 Other: Voiding Method Toilet # Voids 1 1 - Labs CBC & Chem 7: 05/23/23 15:01 05/23/23 15:01
[2023-05-25] MEDS: METOPROLOL SUCCINATE (ER) 50 MG TAB.ER.24H PO SCH (10:46)
[2023-05-25] MEDS: NICOTINE 21MG/24HR PATCH TRANSDERM SCH (10:46)
[2023-05-25] MEDS: ASPIRIN 81 MG PO SCH (10:47)
[2023-05-25] MEDS: ISOSORBIDE MONONITRATE ER 30 MG TAB.ER.24H PO SCH (10:47)
[2023-05-25] MEDS: THIAMINE 100 MG TAB PO SCH ×2 (10:47→10:53)
[2023-05-25] MEDS: VANCOMYCIN 125 MG CAPSULE PO SCH (10:47)
[2023-05-25] MEDS: FOLIC ACID-VIT B COMPLEX-VIT C 1 CAP PO SCH (10:47)
[2023-05-25] MEDS: TICAGRELOR 90 MG TAB PO SCH (10:51)
[2023-05-25] MEDS: FLUTICASONE 50MCG/SPRAY NASAL 16GM EA NOSTRIL SCH (10:52)
[2023-05-25 11:05] LABS: Basophils # (A) 0.06 X 10*3/uL (0.00-0.10); Basophils % (A) 1.3 %; Eosinophils # (A) 0.08 X 10*3/uL (0.04-0.35); Eosinophils % (A) 1.7 %; HCT 38.9 % (37.2-46.3); HGB 12.9 d/dL (12.0-15.0); Lymphocytes # (A) 1.19 X 10*3/uL (0.90-5.00); Lymphocytes % (A) 24.8 %; MCH 29.4 pg (27.0-32.0); MCHC 33.2 d/dL (32.0-37.0); MCV 88.6 FL (80.0-97.0); Mean Platelet Volume 10.9 FL (9.5-12.2); Monocytes # (A) 0.52 X 10*3/uL (0.20-1.00); Monocytes % (A) 10.8 %; NRBC Per 100 WBC 0 X 10*3/uL (0.00-0.01); Neutrophils # (A) 2.94 X 10*3/uL (1.80-7.70); Neutrophils % (A) 61.2 %; Platelet Count 102 X 10*3/uL (140-440); RBC 4.39 X 10*6/uL (4.10-5.20); RDW 18.8 % (11.5-14.5)
[2023-05-25 11:30] LABS: Magnesium 1.7 mg/dL (1.5-2.4)
[2023-05-25 11:42] LABS: ALT 45 U/L (8-44); AST 45 U/L (13-35); Albumin 4.3 d/dL (3.8-4.9); Albumin/Globulin Ratio 1.79 Ratio (1.60-3.17); Alkaline Phosphatase 134 U/L (41-126); Blood Urea Nitrogen 4.2 mg/dL (9.0-27.0); Calcium 9.3 mg/dL (8.7-10.3); Carbon Dioxide 26.4 mmol/L (21.6-31.8); Chloride 94 mmol/L (96-109); Globulin 2.4 d/dL (1.6-3.3); Glucose 118 mg/dL (70-110); Potassium 2.9 mmol/L (3.5-5.5); Sodium 139 mmol/L (135-145); Total Bilirubin 0.7 mg/dL (0.3-1.2); Total Protein 6.7 d/dL (6.2-8.2)
[2023-05-25] MEDS ORDERED: POTASSIUM CHLORIDE ER 20 MEQ TAB.ER PO SCH ×2 (12:00→13:00)
--- NOTE | 2023-05-25 14:48 | P.PN ---
Subjective Progress Note Date: 05/25/23 Principal diagnosis: C. diff colitis Patient is a 63-year-old female was recently admitted at [facility] and treated for diverticulitis after finishing treatment patient subsequently went up and diarrhea and was diagnosed with C. difficile colitis, for which the patient was admitted at [facility] from 05/17/2023 till 05/20/2023 or and was treated for C. diff colitis did have interruption of treatment and subsequently presented back to the hospital with worsening diarrhea. On today's evaluation that is 05/25/2023, the patient denies having any fever or any chills patient is breathing comfortably patient denies having any nausea no vomiting no abdominal pain and diarrhea has decreased in frequency did have decreased in frequency and 1 loose stool today Objective - Vital Signs Vital signs: Vital Signs Temp 98.1 F 05/25/23 07:10 Pulse 94 05/25/23 09:47 Resp 16 05/25/23 07:10 BP 123/85 05/25/23 07:10 Pulse Ox 95 05/25/23 07:10 FiO2 Intake & Output 05/24/23 05/25/23 05/25/23 18:59 06:59 18:59 Intake Total 236 Balance 236 Intake: Oral 236 Other: Voiding Method Toilet # Voids 1 1 - Exam GENERAL DESCRIPTION: Middle-aged female up in the room in no distress RESPIRATORY SYSTEM: Unlabored breathing , decreased breath sounds at bases HEART: S1 S2 regular rate and rhythm , ABDOMEN: Soft , no tenderness EXTREMITIES: No edema feet - Labs CBC & Chem 7: 05/25/23 06:18 05/25/23 06:18 Labs: Abnormal Lab Results - Last 24 Hours (Table) 05/25/23 Range/Units 06:18 RDW 18.8 H (11.5-14.5) % Plt Count 102 L (140-440) X 10*3/uL Assessment and Plan (1) C. difficile diarrhea Current Visit: Yes Status: Acute Code(s): A04.72 - ENTEROCOLITIS D/T CLOSTRIDIUM DIFFICILE, NOT SPCF RECUR SNOMED Code(s): 4700016465621 Plan: 1patient with recent antibiotic exposure for diverticulitis now present to hospital with diarrhea secondary to C. difficile colitis apparently did have some interruption of her treatment more likely responsible for recurrence of her diarrhea rather than failure of treatment at the patient report no bowel movement of the patient was started on oral vancomycin 2-patient seemed to have some clinical improvement and plan is to continue with oral vancomycin 250 p.o. every 6 hours to finish a 10-day course of therapy 3-patient had encouraged increase her probiotic and yogurt intake, to decrease recurrence of C. diff colitis Time with Patient: Less than 30
--- NOTE | 2023-05-26 10:53 | P.DS ---
Providers Date of admission: 05/23/23 16:03 Expected date of discharge: 05/25/23 Attending physician: Mark Cardoza Consults: 05/24/23 03:27 Consult Physician Routine Consulting Provider: Parish Kay Consult Reason/Comments: chest pain Do you want consulting provider notified?: Yes, Notify in am 05/24/23 10:39 Consult Physician Urgent Consulting Provider: Teo Morrissey Consult Reason/Comments: c diff, continued diarrhea Do you want consulting provider notified?: Yes [facility] Course: Final diagnosis Acute alcohol intoxication History of recent Clostridium difficile colitis Generalized weakness and fatigue Hypokalemia Dehydration Asthma, not an exacerbation Coronary artery disease history Acute episode of chest pain, ruled out ACS chronic obstructive pulmonary disease, not in exacerbation Hypertension Chronic liver disease Seizure disorder Continued ongoing nicotine abuse Obesity with a BMI of 31.1 Noncompliance with medications and follow-up Discharge disposition Patient is being discharged in a stable condition with guarded prognosis to home. Patient will follow-up with Dr. Sherman Cardoza in the outpatient setting upon discharge. Patient is to continue with oral Vanco 250 mg 4 times daily for the next 10 days as scheduled. Total time taken is greater than 35 minutes. Hospital course This is a 63-year-old female who was recently admitted with severe alcohol intoxication with continued weakness and possible dehydration secondary to C. diff colitis. Patient was recently hospitalized and discharged found to have C. diff positive continued on Vanco. Unsure if patient filled the prescription and is noncompliant. Patient reports she felt worse with continued diarrhea with extreme weakness and came back to the ER. Patient was intoxicated with a blood alcohol level over 300. Patient was continued on CIWA protocol and also had a brief episode of chest pain was evaluated by cardiology, ruled out ACS. Patient found to have hypokalemia and was given replacement and refusing to wait for repeat blood draw. Prescription provided for repeat labs and instructed patient to follow-up with primary care provider. Patient is extremely noncompliant with overall care, complains of medications, or complaints of follow-up. Patient has had very frequent hospital readmissions due to EtOH and continues to refuse to quit. Patient reports she has gone to alcohol rehab before and doesn't work. Patient has high risk for readmission. Patient will be discharged today. Please refer to other consultation notes for further HPI. Currently no reports of chest pain, shortness of breath, or palpitations. Patient is afebrile. No reports of nausea or vomiting and patient is tolerating diet. Patient will be d ischarged home today. Extremely guarded prognosis and high risk for readmission as mentioned above. Physical exam: Gen: This is a 63-year-old female is awake, alert and oriented 3, well-developed, well-nourished, obese HEENT: Head is atraumatic, normocephalic. Pupils equal, round. Sclerae is anicteric. NECK: Supple. No JVD. No lymphadenopathy. No thyromegaly. LUNGS: Diminished breath sounds bilaterally with scattered rhonchi. No intercostal retractions. HEART: Regular rate and rhythm. No murmur. ABDOMEN: Soft. Obese. Bowel sounds are present. No masses. No tenderness. EXTREMITIES: No pedal edema. No calf tenderness. NEUROLOGICAL: Patient is awake, alert and oriented x3. Cranial nerves 2 through 12 are grossly intact. Please refer to medication reconciliation sheet for a list of medications. The impression and plan of care has been dictated by Tonya Adan, Nurse Practitioner as directed. Dr. Sony MD I have performed a history and examination and MDM of this patient, discussed the same with the dictator, and agree with the dictator's assessment and plan as written ,documented as a scribe. Based on total visit time, I have performed more than 50% of the visit. Patient Condition at Discharge: Fair Plan - Discharge Summary New Discharge Prescriptions: New Nicotine 21Mg/24Hr Patch [Habitrol] 1 patch TRANSDERM DAILY patch Vancomycin 250 mg PO Q6H 30 Days #80 cap Continue Aspirin EC [Ecotrin Low Dose] 81 mg PO DAILY Ticagrelor [Brilinta] 90 mg PO BID Folic Acid-Vit B Complex-Vit C [Nephrocaps] 1 cap PO DAILY Metoprolol Succinate (ER) [Toprol XL] 50 mg PO DAILY Fluticasone Nasal [place] [Flonase Nasal [place]] 1 spr EA NOSTRIL DAILY Ondansetron Odt [Zofran ODT] 4 mg PO Q8HR PRN #20 tab PRN Reason: Nausea Simvastatin [Zocor] 40 mg PO HS Isosorbide Mononitrate ER [Imdur] 30 mg PO DAILY Albuterol Inhaler [Ventolin Hfa Inhaler] 2 puff INHALATION RT-QID PRN 30 Days #1 each PRN Reason: Shortness Of Breath Or Wheezing Nitroglycerin Sl Tabs [Nitrostat] 0.4 mg SL Q5M PRN PRN Reason: Chest Pain Ergocalciferol (Vitamin D2) [Drisdol (50,000 Iu)] 1,250 mcg PO Q7D Albuterol Nebulized [Ventolin Nebulized] 2.5 mg INHALATION RT-QID PRN PRN Reason: Shortness Of Breath Thiamine [Vitamin B-1] 100 mg PO DAILY 30 Days #30 tablet Discontinued Vancomycin 125 mg PO QID 10 Days #40 capsule Discharge Medication List Aspirin EC [Ecotrin Low Dose] 81 mg PO DAILY 02/11/19 [History] Metoprolol Succinate (ER) [Toprol XL] 50 mg PO DAILY 06/13/21 [History] Fluticasone Nasal [place] [Flonase Nasal [place]] 1 spr EA NOSTRIL DAILY 02/14/22 [History] Ondansetron Odt [Zofran ODT] 4 mg PO Q8HR PRN #20 tab 06/13/22 [Rx] Simvastatin [Zocor] 40 mg PO HS 07/03/22 [History] Isosorbide Mononitrate ER [Imdur] 30 mg PO DAILY 11/10/22 [History] Ticagrelor [Brilinta] 90 mg PO BID 01/14/23 [History] Albuterol Inhaler [Ventolin Hfa Inhaler] 2 puff INHALATION RT-QID PRN 30 Days #1 each 01/22/23 [Rx] Nitroglycerin Sl Tabs [Nitrostat] 0.4 mg SL Q5M PRN 02/06/23 [History] Albuterol Nebulized [Ventolin Nebulized] 2.5 mg INHALATION RT-QID PRN 05/17/23 [History] Ergocalciferol (Vitamin D2) [Drisdol (50,000 Iu)] 1,250 mcg PO Q7D 05/17/23 [History] Thiamine [Vitamin B-1] 100 mg PO DAILY 30 Days #30 tablet 05/20/23 [Rx] Folic Acid-Vit B Complex-Vit C [Nephrocaps] 1 cap PO DAILY 05/23/23 [History] Nicotine 21Mg/24Hr Patch [Habitrol] 1 patch TRANSDERM DAILY patch 05/25/23 [Rx] Vancomycin 250 mg PO Q6H 30 Days #80 cap 05/25/23 [Rx] Follow up Appointment(s)/Referral(s): Miya Johnson MD [Primary Care Provider] - 1-2 days Unruly Howard MD [STAFF PHYSICIAN] - 06/15/23 3:15 pm Patient Instructions/Handouts: C. Diff (Clostridioides Difficile) Infection (DC) Activity/Diet/Wound Care/Special Instructions: Activity Limited until follow-up Follow-up with primary care provider and discharge Continue taking medications as prescribed and finish all antibiotic AVOID ALL ALCOHOL INTAKE AND EXPOSURE Discharge/Stand Alone Forms: Outpatient Counseling, Inp Substance Abuse Facilities, Personal Technology Auditor Discharge Disposition: HOME SELF-CARE
== END 2023-05-25 14:55 | disposition home or self-care (01) ==
LOC: EC 13:51 → 6NMEDSUR 16:02 → OBSVTOIN 16:03 → INTOOBSV 16:03 → 6NMEDSUR 17:14 → UNDODISIN 05-25 14:55
PROVIDERS: ADMIT Hospitalist; ATTEND Hospitalist
DX: F10.220 Alcohol dependence with intoxication, uncomplicated (principal); K70.10 Alcoholic hepatitis without ascites; R07.89 Other chest pain; E87.6 Hypokalemia; A04.72 Enterocolitis due to Clostridium difficile, not specified as recurrent; E86.0 Dehydration; J44.9 Chronic obstructive pulmonary disease, unspecified; I25.10 Atherosclerotic heart disease of native coronary artery without angina pectoris; I10 Essential (primary) hypertension; I25.2 Old myocardial infarction; G40.909 Epilepsy, unspecified, not intractable, without status epilepticus; I69.351 Hemiplegia and hemiparesis following cerebral infarction affecting right dominant side; I69.328 Other speech and language deficits following cerebral infarction; F17.200 Nicotine dependence, unspecified, uncomplicated; D64.9 Anemia, unspecified; H26.9 Unspecified cataract; M54.9 Dorsalgia, unspecified; G89.29 Other chronic pain; F41.9 Anxiety disorder, unspecified; F12.90 Cannabis use, unspecified, uncomplicated; F32.A Depression, unspecified; I25.82 Chronic total occlusion of coronary artery; R00.0 Tachycardia, unspecified; E78.5 Hyperlipidemia, unspecified; M51.36 Other intervertebral disc degeneration, lumbar region; Z79.82 Long term (current) use of aspirin; Z79.899 Other long term (current) drug therapy; Z91.040 Latex allergy status; Z88.7 Allergy status to serum and vaccine; Z90.49 Acquired absence of other specified parts of digestive tract; Z63.4 Disappearance and death of family member; Z80.1 Family history of malignant neoplasm of trachea, bronchus and lung; Z82.49 Family history of ischemic heart disease and other diseases of the circulatory system; Z82.5 Family history of asthma and other chronic lower respiratory diseases; Z91.148 Patient's other noncompliance with medication regimen for other reason; Y90.8 Blood alcohol level of 240 mg/100 ml or more
CPT/HCPCS: 96374; 82075; 99285; 36415; 94640 ×4; 80053 ×2; 83735 ×2; 84484; 85025 ×2; G0378 ×3; G0480; S4990 ×3; J2405; 80320

== ENCOUNTER 2023-06-19 00:23 | Emergency (ER) | payer OTHER ==
[2023-06-19 00:29] VITALS: TEMP 98
[2023-06-19 00:53] LABS: Anisocytosis Slight; Basophils # (A) 0.1 k/uL (0-0.2); Basophils % (A) 2 %; Eosinophils # (A) 0.2 k/uL (0-0.7); Eosinophils % (A) 3 %; HCT 38.2 % (34.0-46.0); HGB 12.8 gm/dL (11.4-16.0); Lymphocytes # (A) 2.2 k/uL (1.0-4.8); Lymphocytes % (A) 36 %; MCHC 33.5 g/dL (31.0-37.0); MCV 89.4 fL (80.0-100.0); Mean Platelet Volume 7.6; Monocytes # (A) 0.3 k/uL (0-1.0); Monocytes % (A) 4 %; Neutrophils # (A) 3.2 k/uL (1.3-7.7); Neutrophils % (A) 53 %; Platelet Count 166 k/uL (150-450); RBC 4.27 m/uL (3.80-5.40); RDW 17.3 % (11.5-15.5); WBC 6.1 k/uL (3.8-10.6)
[2023-06-19] MEDS ORDERED: KETOROLAC 15 MG/ML 1 ML VIAL IVP STA ×2 (01:02→04:18)
[2023-06-19 01:03] LABS: INR 1.1 (<1.2); Partial Thromboplastin Time 25.9 sec (22.0-30.0); Prothrombin Time 11.2 sec (9.0-12.0)
[2023-06-19] MEDS ORDERED: ONDANSETRON 4 MG/2 ML VIAL IVP STA (01:03)
[2023-06-19] MEDS ORDERED: SODIUM CHLORIDE 0.9% 1,000 ML IV STA (01:03)
[2023-06-19] MEDS ORDERED: LIDOCAINE 5% PATCH TOPICAL ONE (01:03)
--- NOTE | 2023-06-19 01:19 | ED ---
Chest Pain HPI - General Chief Complaint: Chest Pain Stated Complaint: Chest Pain, Back Pain Time Seen by Provider: 06/19/23 00:26 Source: patient, EMS, RN notes reviewed Mode of arrival: EMS Limitations: no limitations - History of Present Illness Initial Comments: This is a 63-year-old female who presents to the emergency department for initial concerns related to chest pain. However, patient states that when she arrived her chest pain had resolved. Also states that this is intermittent and fairly chronic issue for her. She then goes on to report pain in the right hip. States that this has also been a long-standing issue for her. She was supposed to see orthopedics 6 days ago, but states that she had to cancel her appointment because she could not see them in her current condition. She is not entirely clear on what she means by this, but states that it is related to her pain and multiple health issues. She is taking ibuprofen for management of her pain, but states that it is not effective. Additionally, states that she's had nausea and a reduced appetite over the last 3 days, which she attributes to her pain. States that she tends to drink alcohol for further management of her pain. Reports having 1 shot of vodka earlier today. MD Complaint: chest pain - Related Data Home Medications Medication Instructions Recorded Confirmed Aspirin EC [Ecotrin Low Dose] 81 mg PO DAILY 02/11/19 05/23/23 Metoprolol Succinate (ER) [Toprol 50 mg PO DAILY 06/13/21 05/23/23 XL] Fluticasone Nasal [place] [Flonase 1 spr EA NOSTRIL DAILY 02/14/22 05/23/23 Nasal [place]] Simvastatin [Zocor] 40 mg PO HS 07/03/22 05/23/23 Isosorbide Mononitrate ER [Imdur] 30 mg PO DAILY 11/10/22 05/23/23 Ticagrelor [Brilinta] 90 mg PO BID 01/14/23 05/23/23 Nitroglycerin Sl Tabs [Nitrostat] 0.4 mg SL Q5M PRN 02/06/23 05/23/23 Albuterol Nebulized [Ventolin 2.5 mg INHALATION RT-QID PRN 05/17/23 05/23/23 Nebulized] Ergocalciferol (Vitamin D2) 1,250 mcg PO Q7D 05/17/23 05/23/23 [Drisdol (50,000 Iu)] Folic Acid-Vit B Complex-Vit C 1 cap PO DAILY 05/23/23 05/23/23 [Nephrocaps] Previous Rx's Medication Instructions Recorded Ondansetron Odt [Zofran ODT] 4 mg PO Q8HR PRN #20 tab 06/13/22 Albuterol Inhaler [Ventolin Hfa 2 puff INHALATION RT-QID PRN 30 01/22/23 Inhaler] Days #1 each Thiamine [Vitamin B-1] 100 mg PO DAILY 30 Days #30 tablet 05/20/23 Nicotine 21Mg/24Hr Patch [Habitrol] 1 patch TRANSDERM DAILY patch 05/25/23 Vancomycin 250 mg PO Q6H 30 Days #80 cap 05/25/23 Ketorolac [Toradol] 10 mg PO Q6HR PRN #15 tab 06/19/23 Lidocaine 5% Patch [Lidoderm 5% 1 patch TOPICAL DAILY PRN #30 patch 06/19/23 Patch] Ondansetron Odt [Zofran Odt] 4 mg PO Q8HR PRN #15 tab 06/19/23 Allergies Allergy/AdvReac Type Severity Reaction Status Date / Time latex Allergy Rash/Hives Verified 05/23/23 16:53 tomato Allergy Diarrhea Verified 05/23/23 16:53 Influenza Virus Vaccines AdvReac Nausea & Verified 05/23/23 16:53 Vomiting morphine AdvReac Nausea & Verified 05/23/23 16:53 Vomiting Review of Systems ROS Statement: Those systems with pertinent positive or pertinent negative responses have been documented in the HPI. ROS Other: All systems not noted in ROS Statement are negative. Past Medical History Past Medical History: Asthma, Coronary Artery Disease (CAD), COPD, CVA/TIA, Eye Disorder, Hypertension, Liver Disease, Myocardial Infarction ([place]), Seizure Disorder, Vascular Disorder Additional Past Medical History / Comment(s): Pt recently admitted to [facility] for diarrhea, ETOH abuse. 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 soon Last Myocardial Infarction Date:: aug 2018 History of Any Multi-Drug Resistant Organisms: None Reported Past Surgical History: Cholecystectomy, Heart Catheterization, Orthopedic Surgery Additional Past Surgical History / Comment(s): L caratid stent, bilateral knee surgeries for tendon repair, bartholian cyst removed bilateral wrists, cataracts Past Anesthesia/Blood Transfusion Reactions: Motion Sickness Additional Past Anesthesia/Blood Transfusion Reaction / Comment(s): Pt has received blood without reaction. Past Psychological History: Anxiety, Depression Smoking Status: Current every day smoker Past Alcohol Use History: Abuse, Daily, Heavy Past Drug Use History: Marijuana - Past Family History Mother Family Medical History: Cancer, Congestive Heart Failure (CHF), Coronary Artery Disease (CAD), Hyperlipidemia Additional Family Medical History / Comment(s): Mother at age 85 from lung cancer. Father Family Medical History: Cancer, COPD Additional Family Medical History / Comment(s): Father at age 63 from lung cancer. Brother(s) Additional Family Medical History / Comment(s): Patient has a total of 7 siblings. 5 are alive without any major medical problems she is aware of. 2 siblings have one from alcohol abuse and 1. Coronary artery disease. Daughter(s) Additional Family Medical History / Comment(s): Patient has one daughter with no major medical problems. General Exam Limitations: no limitations General appearance: alert, in no apparent distress Head exam: Present: atraumatic, normocephalic, normal inspection Respiratory exam: Present: normal lung sounds bilaterally. Absent: respiratory distress, wheezes, rales, rhonchi, stridor Cardiovascular Exam: Present: regular rate, normal rhythm, normal heart sounds. Absent: systolic murmur, diastolic murmur, rubs, gallop, clicks Neurological exam: Present: alert, oriented X3, CN II-XII intact Psychiatric exam: Present: normal affect, normal mood Skin exam: Present: warm, dry, intact, normal color. Absent: rash Course Vital Signs 06/19/23 06/19/23 06/19/23 00:25 01:35 03:08 Temperature 98.0 F Pulse Rate 90 100 Respiratory 17 18 17 Rate Blood Pressure 134/99 127/98 150/117 O2 Sat by Pulse 97 Oximetry 06/19/23 06:00 Temperature Pulse Rate 97 Respiratory 17 Rate Blood Pressure 140/101 O2 Sat by Pulse 96 Oximetry Chest Pain MDM - MDM This is a 63-year-old female who presents to the emergency department for chest pain and right hip pain. Was pt. sent in by a medical professional or institution? @ -No Did you speak to anyone other than the patient for history? @ -No Did you review nursing and triage notes? @ -Yes, and I agree, it is accurate with regards to the patient's symptoms. Were old charts reviewed? @ -Yes, cardiology consult from 05/24/23, where ACS was ruled out and the patient was cleared from a cardiology perspective. Differential Diagnosis? @ -Differential Chest Pain: Stable Angina, Unstable Angina, STEMI, NSTEMI Aortic Dissection, Pneumothorax, Musculoskeletal, Esophageal Spasm GERD, Cholecystitis, Pancreatitis, Zoster, this is not meant to be an all-inclusive list. EKG interpreted by me (3pts min.)? @ -EKG interpreted by me demonstrating the following: Sinus rhythm. Ventricular rate 90 beats per minute, NH interval 149 ms, QRS duration 94 ms, QTC 433 ms. X-rays interpreted by me (1pt min.)? @ -Chest x-ray obtained, my interpretation identifies no localized consolidations or infiltrates. X-ray of the right hip obtained as well. My int erpretation identifies no acute fractures. CT interpreted by me (1pt min.)? @ -Not obtained U/S interpreted by me (1pt. min.)? @ -Not obtained What testing was considered but not performed? (CT, X-rays, U/S, labs)? Why? @ -None What meds were considered but not given? Why? @ -None Did you discuss the management of the patient with other professionals? @ -No Did you reconcile home meds? @ -No Was smoking cessation discussed for >3mins.? @ -I discussed smoking cessation for greater than 3 minutes. The risk of smoking were discussed with the patient including but not limited to risks of cancer, stroke, coronary artery disease and COPD. Also discussed with patient were multiple methods of quitting smoking. Lastly we discussed the financial cost of smoking. Was critical care preformed (if so, how long)? @ -No Were there social determinants of health that impacted care today? How? (Homelessness, low income, unemployed, alcoholism, drug addiction, transportation, low edu. Level, literacy, decrease access to med. care, correction, rehab)? @ -No Was there de-escalation of care discussed even if they declined? (Discuss DNR or withdrawal of care, Hospice)? @ -No What co-morbidities impacted this encounter? (DM, HTN, Smoking, COPD, CAD, Cancer, CVA, Hep., AIDS, mental health diagnosis, sleep apnea, morbid obesity)? @ -Asthma, COPD, HTN, CAD, vascular disorder Was patient admitted / discharged? @ -Lab work obtained revealing an alcohol level of 340, which is not uncommon for the patient with her history of chronic alcohol abuse. Lab work was otherwise nonactionable. Elevated liver enzymes consistent with known history of liver disease and prior values. Chest x-ray and x-ray of the right hip obtained revealing no acute process. She was given IV fluids, Zofran, Toradol, and a lidocaine patch was applied to the right hip. She did feel some improvement in pain following these medications. Initial troponin was negative. In the emergency department she was complaining of intermittent chest pain. Each episode did not last longer than a couple of minutes. This is a very long- standing and intermittent problem for the patient. She was admitted for chest pain and alcohol intoxication less than 1 month ago, and was cleared from a cardiac perspective. We obtained 2 troponins, both of which were negative. Patient discharged home in a taxi. Clinically, she did not appear intoxicated. Prescriptions for Toradol, Zofran, and lidocaine patches provided with dosing instructions reviewed. Patient is instructed to take the Toradol with Tylenol if needed and avoid any other [id number] anti-inflammatories such as ibuprofen with the Toradol. Patient was advised that she'll need to follow up with her orthopedic provider regarding the right hip pain. She will also follow up with her pin drafting machine tender regarding the chest pain. Undiagnosed new problem with uncertain prognosis? @ -None Drug Therapy requiring intensive monitoring for toxicity (Heparin, Nitro, Insulin, Cardizem)? @ -None Were any procedures done? @ -None Diagnosis/symptom? @ -Alcohol intoxication Acute, or Chronic, or Acute on Chronic? @ -Acute Uncomplicated (without systemic symptoms) or Complicated (systemic symptoms)? @ -Uncomplicated Side effects of treatment? @ -None Exacerbation, Progression, or Severe Exacerbation] @ -Not applicable Poses a threat to life or bodily function? @ -Not at this time. Diagnosis/symptom? @ -Alcoholism, chest pain, right hip pain Acute, or Chronic, or Acute on Chronic? @ -Chronic Uncomplicated (without systemic symptoms) or Complicated (systemic symptoms)? @ -Uncomplicated Side effects of treatment? @ -None Exacerbation, Progression, or Severe Exacerbation] @ -Exacerbation Poses a threat to life or bodily function? @ -If she does continue to drink in excess, this does pose a threat to her life. Return precautions reviewed in depth, the patient is instructed to return to the emergency department with any new, worsening, or concerning symptoms. Patient verbalized understanding. This case was discussed in detail with the attending ED physician, Dr. Cottrell. Presentation, findings, and treatment plan discussed in detail as well. Disposition Clinical Impression: Chest pain, Alcohol intoxication, Right hip pain, Nicotine dependence Disposition: HOME SELF-CARE Instructions (If sedation given, give patient instructions): Chest Pain (ED), Alcohol Intoxication (ED), Abuse of Alcohol (ED), Hip Pain (ED) Additional Instructions: Return to the emergency department with any new, worsening, or concerning symptoms. Take the Toradol with Tylenol as needed for pain relief. If you choose to take the Toradol, do not take it with any other anti-inflammatories such as ibuprofen, take one or the other. You can apply the lidocaine patch to the right hip or other painful area daily as needed. This can be left on for up to 12 hours at a time. You can take the Zofran up to every 8 hours as needed for nausea and vomiting. Make sure you follow up with your orthopedic provider regarding the right hip pain. Follow-up with your pin drafting machine tender regarding the chest pain. Also try to reduce or excess alcohol consumption, as this increases your risk for other health problems. Follow-up with your primary care provider in 1-2 days. Prescriptions: Lidocaine 5% Patch [Lidoderm 5% Patch] 1 patch TOPICAL DAILY PRN #30 patch PRN Reason: Pain Ketorolac [Toradol] 10 mg PO Q6HR PRN #15 tab PRN Reason: Pain Ondansetron Odt [Zofran Odt] 4 mg PO Q8HR PRN #15 tab PRN Reason: Nausea And Vomiting Is patient prescribed a controlled substance at d/c from ED?: No Referrals: Miya Johnson MD [Primary Care Provider] - 1-2 days
[2023-06-19 01:29] LABS: ALT 58 U/L (4-34); AST 103 U/L (14-36); African American GFR (CKD) >90 (>60 ml/min/1.73 sqM); Albumin 3.8 g/dL (3.5-5.0); Alkaline Phosphatase 148 U/L (38-126); Anion Gap 13 mmol/L; Blood Urea Nitrogen 3 mg/dL (7-17); Carbon Dioxide 20 mmol/L (22-30); Chloride 100 mmol/L (98-107); Glucose 104 mg/dL (74-99); Magnesium 1.8 mg/dL (1.6-2.3); Non-African American GFR(CKD) >90 (>60 ml/min/1.73 sqM); Potassium 3.6 mmol/L (3.5-5.1); Sodium 133 mmol/L (137-145); Total Bilirubin 0.4 mg/dL (0.2-1.3); Total Protein 6.7 g/dL (6.3-8.2)
[2023-06-19 01:58] LABS: Appearance,Urine Clear (Clear); Bilirubin,Urine Negative (Negative); Blood,Urine Trace (Negative); Color,Urine Colorless; Glucose,Urine (UA) Negative (Negative); Ketones,Urine Negative (Negative); Leukocyte Esterase,Urine Negative (Negative); Nitrite,Urine Negative (Negative); PH, Urine 5.5 (5.0-8.0); Protein,Urine Negative (Negative); Specific Gravity,Urine 1.002 (1.001-1.035); Squamous Epithelial Cell,Urine <1 /hpf (0-4); Urobilinogen,Urine <2.0 mg/dL (<2.0); WBC,Urine <1 /hpf (0-5)
[2023-06-19 01:59] LABS: Alcohol 340 mg/dL
--- NOTE | 2023-06-19 02:16 | XR ---
EXAM: XR Chest, 2 Views CLINICAL HISTORY: ITS.REASON XR Reason: Chest Pain TECHNIQUE: Frontal and lateral views of the chest. COMPARISON: No relevant prior studies available. FINDINGS: Lungs: Unremarkable. No consolidation. Pleural space: Unremarkable. No pneumothorax. Heart: Unremarkable. No cardiomegaly. Mediastinum: Unremarkable. Bones/joints: Unremarkable. Vasculature: Calcified aorta. IMPRESSION: No acute findings in the chest.
--- NOTE | 2023-06-19 02:25 | XR ---
EXAM: XR Right Hip With Pelvis When Performed, 1 View CLINICAL HISTORY: ITS.REASON XR Reason: pain TECHNIQUE: Frontal view of the right hip with pelvis when performed. COMPARISON: No relevant prior studies available. FINDINGS: Bones/joints: Unremarkable. No acute fracture. No dislocation. Soft tissues: Unremarkable. IMPRESSION: Normal right hip x-ray.
[2023-06-19 03:09] VITALS: RESP 17
[2023-06-19 06:02] VITALS: BP 140/101; PULSE 97
== END 2023-06-19 06:15 | disposition home or self-care (01) ==
LOC: EC 00:23
DX: M25.551 Pain in right hip (principal); R07.9 Chest pain, unspecified; F10.129 Alcohol abuse with intoxication, unspecified; F17.200 Nicotine dependence, unspecified, uncomplicated; I10 Essential (primary) hypertension; I25.10 Atherosclerotic heart disease of native coronary artery without angina pectoris; I25.2 Old myocardial infarction; J44.9 Chronic obstructive pulmonary disease, unspecified; F41.9 Anxiety disorder, unspecified; F32.A Depression, unspecified; F12.90 Cannabis use, unspecified, uncomplicated; Z79.82 Long term (current) use of aspirin; Z79.899 Other long term (current) drug therapy; Z88.5 Allergy status to narcotic agent; Z88.7 Allergy status to serum and vaccine; Z91.040 Latex allergy status; Z91.018 Allergy to other foods; Y90.8 Blood alcohol level of 240 mg/100 ml or more
CPT/HCPCS: 36415; 93005; 80053; 83735; 84484; 85025; 85610; 85730; 81001; 80320; 73502; 71046; 99285; 96374; 96375; 96376; 96361; J2405; J1885

== ENCOUNTER 2023-06-30 01:01 | Emergency (ER) | payer OTHER ==
--- NOTE | 2023-06-30 02:58 | XR ---
EXAMINATION TYPE: XR Hip Bilateral and AP pelvis DATE OF EXAM: 06/30/2023 2:50 AM INDICATION: Patient age:Female; 63 years old; Reason for study: Fall, pain; PHH. COMPARISON: Right hip radiograph 06/19/2023, CT pelvis 12/26/2022 TECHNIQUE: Both hips were examined in the frontal and lateral projections and a AP pelvis. FINDINGS: No evidence of any acute osseous pathology, joint dislocation, or soft tissue swelling. Pel cynthia phleboliths. IMPRESSION: No acute osseous pathology.
--- NOTE | 2023-06-30 03:25 | CT ---
EXAMINATION TYPE: CT thor lumbar spine wo con CT DLP: 1534.2 mGycm, Automated exposure control for dose reduction was used. DATE OF EXAM: 06/30/2023 2:46 AM COMPARISON: CT lumbar spine 12/26/2022. CLINICAL INDICATION:Female, 63 years old with history of Fall, pain; [facility], TECHNIQUE: Axial images of the thoracolumbar spine were obtained without contrast. Coronal and sagitt al reformats were performed. FINDINGS: No acute fracture. Stable anterior wedge compression deformities of the L1 and L4 vertebral bodies. Approximately 10% height loss of the L1 vertebral body without retropulsion. Approximately 3 0% height loss of the L4 vertebral body without retropulsion. Multilevel degenerative disc disease pr imarily in the lumbar spine disc space narrowing, endplate sclerosis, and anterior osteophytosis. Low er lumbar spine facet arthropathy. Broad-based disc bulge at L2-L3 and L3-L4 with mild effacement of the anterior thecal sac. Broad-based disc bulge with bilateral facet arthropathy contribute to modera te central canal stenosis at L4-L5 broad-based disc bulge with mild effacement of the anterior thecal sac at L5-S1. Facet arthropathy at L4-L5 and L5-S1. Moderate neural foraminal stenosis bilaterally a t L3-L4 and L4-L5. Degenerative changes of the bilateral SI joints. Atherosclerotic calcification of the aorta and its branches. Moderate coronary artery calcifications. Left extrarenal pelvis. Distal colonic diverticulosis without evidence for acute diverticulitis. Tung trilobular emphysematous changes. IMPRESSION: 1. No acute fracture. 2. Redemonstration of anterior wedge compression deformities of the L1 and L4 vertebral bodies. 3. Multilevel degenerative disc disease and facet arthropathy most pronounced in the lumbar spine at L3-S1.
[2023-06-30 05:07] VITALS: BP 134/68; PULSE 84; RESP 16
--- NOTE | 2023-06-30 05:29 | ED ---
General Adult HPI - General Chief complaint: Back Pain/Injury Stated complaint: Back pain Time Seen by Provider: 06/30/23 01:02 Source: patient, EMS Mode of arrival: EMS Limitations: no limitations - History of Present Illness Initial comments: This is a 63-year-old female who presented to the emergency department via EMS for back pain and hip pain. When I evaluated the patient, the patient stated "I had a stroke and I don't know things and I forget things." The patient was a poor story and cannot provide a history as to what caused her pain. The patient stated that she has fallen could not tell me when. The patient stated that she has pain in her lower back as well as left hip but continued to point to her right hip. The patient has been seen in the emergency department here multiple times for EtOH intoxication and she did state that she had a few "shots of alcohol for pain." The patient was resting in bed without any acute distress and it was reported that the EMS crew was called 3 different times and was refused each time by the patient but then ultimately she accepted come to the emergency department on her fourth call. - Related Data Home Medications Medication Instructions Recorded Confirmed Aspirin EC [Ecotrin Low Dose] 81 mg PO DAILY 02/11/19 05/23/23 Metoprolol Succinate (ER) [Toprol 50 mg PO DAILY 06/13/21 05/23/23 XL] Fluticasone Nasal [place] [Flonase 1 spr EA NOSTRIL DAILY 02/14/22 05/23/23 Nasal [place]] Simvastatin [Zocor] 40 mg PO HS 07/03/22 05/23/23 Isosorbide Mononitrate ER [Imdur] 30 mg PO DAILY 11/10/22 05/23/23 Ticagrelor [Brilinta] 90 mg PO BID 01/14/23 05/23/23 Nitroglycerin Sl Tabs [Nitrostat] 0.4 mg SL Q5M PRN 02/06/23 05/23/23 Albuterol Nebulized [Ventolin 2.5 mg INHALATION RT-QID PRN 05/17/23 05/23/23 Nebulized] Ergocalciferol (Vitamin D2) 1,250 mcg PO Q7D 05/17/23 05/23/23 [Drisdol (50,000 Iu)] Folic Acid-Vit B Complex-Vit C 1 cap PO DAILY 05/23/23 05/23/23 [Nephrocaps] Previous Rx's Medication Instructions Recorded Ondansetron Odt [Zofran ODT] 4 mg PO Q8HR PRN #20 tab 06/13/22 Albuterol Inhaler [Ventolin Hfa 2 puff INHALATION RT-QID PRN 30 01/22/23 Inhaler] Days #1 each Thiamine [Vitamin B-1] 100 mg PO DAILY 30 Days #30 tablet 05/20/23 Nicotine 21Mg/24Hr Patch [Habitrol] 1 patch TRANSDERM DAILY patch 05/25/23 Vancomycin 250 mg PO Q6H 30 Days #80 cap 05/25/23 Ketorolac [Toradol] 10 mg PO Q6HR PRN #15 tab 06/19/23 Lidocaine 5% Patch [Lidoderm 5% 1 patch TOPICAL DAILY PRN #30 patch 06/19/23 Patch] Ondansetron Odt [Zofran Odt] 4 mg PO Q8HR PRN #15 tab 06/19/23 Allergies Allergy/AdvReac Type Severity Reaction Status Date / Time latex Allergy Rash/Hives Verified 05/23/23 16:53 tomato Allergy Diarrhea Verified 05/23/23 16:53 Influenza Virus Vaccines AdvReac Nausea & Verified 05/23/23 16:53 Vomiting morphine AdvReac Nausea & Verified 05/23/23 16:53 Vomiting Review of Systems ROS Statement: Those systems with pertinent positive or pertinent negative responses have been documented in the HPI. ROS Other: All systems not noted in ROS Statement are negative. Past Medical History Past Medical History: Asthma, Coronary Artery Disease (CAD), COPD, CVA/TIA, Eye Disorder, Hypertension, Liver Disease, Myocardial Infarction ([place]), Seizure Disorder, Vascular Disorder Additional Past Medical History / Comment(s): Pt recently admitted to [facility] for diarrhea, ETOH abuse. 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 soon Last Myocardial Infarction Date:: aug 2018 History of Any Multi-Drug Resistant Organisms: None Reported Past Surgical History: Cholecystectomy, Heart Catheterization, Orthopedic Surgery Additional Past Surgical History / Comment(s): L caratid stent, bilateral knee surgeries for tendon repair, bartholian cyst removed bilateral wrists, cataracts Past Anesthesia/Blood Transfusion Reactions: Motion Sickness Additional Past Anesthesia/Blood Transfusion Reaction / Comment(s): Pt has received blood without reaction. Past Psychological History: Anxiety, Depression Smoking Status: Current every day smoker Past Alcohol Use History: Abuse, Daily, Heavy Past Drug Use History: Marijuana - Past Family History Mother Family Medical History: Cancer, Congestive Heart Failure (CHF), Coronary Artery Disease (CAD), Hyperlipidemia Additional Family Medical History / Comment(s): Mother at age 85 from lung cancer. Father Family Medical History: Cancer, COPD Additional Family Medical History / Comment(s): Father at age 63 from lung cancer. Brother(s) Additional Family Medical History / Comment(s): Patient has a total of 7 siblings. 5 are alive without any major medical problems she is aware of. 2 siblings have one from alcohol abuse and 1. Coronary artery disease. Daughter(s) Additional Family Medical History / Comment(s): Patient has one daughter with no major medical problems. General Exam Limitations: no limitations General appearance: alert, in no apparent distress, obese Head exam: Present: atraumatic, normocephalic, normal inspection Eye exam: Present: normal appearance, PERRL Pupils: Present: normal accommodation ENT exam: Present: normal exam, normal oropharynx, mucous membranes moist Neck exam: Present: normal inspection, full ROM Respiratory exam: Present: normal lung sounds bilaterally Cardiovascular Exam: Present: regular rate, normal rhythm, normal heart sounds GI/Abdominal exam: Present: soft, normal bowel sounds Extremities exam: Present: normal inspection, full ROM Back exam: Present: normal inspection, full ROM, tenderness (Mild TTP over the midline lumbar spine) Neurological exam: Present: alert, oriented X3 (Poor historian), CN II-XII intact Psychiatric exam: Present: normal affect, normal mood Skin exam: Present: warm, dry Course Vital Signs 06/30/23 06/30/23 01:02 05:00 Temperature 98.0 F Pulse Rate 94 84 Respiratory 18 16 Rate Blood Pressure 137/90 134/68 O2 Sat by Pulse 99 99 Oximetry Medical Decision Making - Medical Decision Making Was pt. sent in by a medical professional or institution (YESSY Lloyd, HAND MARKER, urgent care, hospital, or shelter...) When possible be specific @ -No Did you speak to anyone other than the patient for history (EMS, parent, family, police, friend...)? What history was obtained from this source @ -No Did you review nursing and triage notes (agree or disagree)? Why? @ -I reviewed and agree with nursing and triage notes Were old charts reviewed (outside hosp., previous admission, EMS record, old EKG, old radiological studies, urgent care reports/EKG's, shelter records)? Report findings @ -No old charts were reviewed Differential Diagnosis (chest pain, altered mental status, abdominal pain women, abdominal pain men, vaginal bleeding, weakness, fever, dyspnea, syncope, headache, dizziness, GI bleed, back pain, seizure, CVA, palpatations, mental health)? @ -Spinal fracture, contusion, hip contusion EKG interpreted by me (3pts min.). @ -None X-rays interpreted by me (1pt min.). @ -X-ray of the bilateral hips and pelvis were obtained and were interpreted by myself showing no acute process. CT interpreted by me (1pt min.). @ -CT of the thoracic and lumbar spine without contrast was obtained and was interpreted by myself showing no acute fracture. There is redemonstration of an anterior wedge compression deformity of L1 and L4 [id number] bodies. There was multilevel [place] of this disease and facet arthropathy most pronounced the lumbar spine at L3 through S1. U/S interpreted by me (1pt. min.). @ -None done What testing was considered but not performed or refused? (CT, X-rays, U/S, labs)? Why? @ -None What meds were considered but not given or refused? Why? @ -None Did you discuss the management of the patient with other professionals (professionals i.e. YESSY Lloyd, HAND MARKER, lab, RT, psych nurse, social media intern, chip loft worker, teacher, intelligence officer, case packer and sealer)? Give summary @ -No Was smoking cessation discussed for >3mins.? @ -No Was critical care preformed (if so, how long)? @ -No Were there social determinants of health that impacted care today? How? (Homelessness, low income, unemployed, alcoholism, drug addiction, transportation, low edu. Level, literacy, decrease access to med. care, senior care, rehab)? @ -Chronic alcoholism Was there de-escalation of care discussed even if they declined (Discuss DNR or withdrawal of care, Hospice)? DNR status @ -No What co-morbidities impacted this encounter? (DM, HTN, Smoking, COPD, CAD, Cancer, CVA, ARF, Chemo, Hep., AIDS, mental health diagnosis, sleep apnea, morbid obesity)? @ -Multiple comorbidities including depression, anxiety, congestive heart failu re, COPD Was patient admitted / discharged? Hospital course, mention meds given and route, prescriptions, significant lab abnormalities, going to OR and other pertinent info. @ -The patient was seen and evaluated emergency department. Physical exam, the patient was resting in bed. The patient was an overall poor historian and cannot provide details as to what caused her pain. Vital signs were stable. Imaging was also obtained and did not show any acute processes. The patient continued to remain stable in bed and was told of the results. The patient was stable for discharge home and told to follow-up with her primary care physician. The patient was agreeable to this and all her questions were answered. The patient was discharged home in stable condition. Undiagnosed new problem with uncertain prognosis? @ -No Drug Therapy requiring intensive monitoring for toxicity (Heparin, Nitro, Insu cale, Cardizem)? @ -No Were any procedures done? @ -No Diagnosis/symptom? @ -Fall, chronic back pain Acute, or Chronic, or Acute on Chronic? @ -Acute on chronic Uncomplicated (without systemic symptoms) or Complicated (systemic symptoms)? @ -Uncomplicated Side effects of treatment? @ -No Exacerbation, Progression, or Severe Exacerbation? @ -No Poses a threat to life or bodily function? How? (Chest pain, [place], [place], pneumonia, PE, COPD, DKA, ARF, appy, cholecystitis, CVA, Diverticulitis, Homicidal, Suicidal, threat to staff... and all critical care pts) @ -No Disposition Clinical Impression: Back pain, Compression fracture, Chronic pain Disposition: HOME SELF-CARE Condition: Stable Instructions (If sedation given, give patient instructions): Chronic Back Pain (DC), Fall Prevention for Older Adults (ED) Is patient prescribed a controlled substance at d/c from ED?: No Referrals: Miya Johnson MD [Primary Care Provider] - 1-2 days Time of Disposition: 04:30
[2023-06-30 05:37] VITALS: TEMP 97.9
== END 2023-06-30 05:37 | disposition home or self-care (01) ==
LOC: EC 01:01
DX: S22.000A Wedge compression fracture of unspecified thoracic vertebra, initial encounter for closed fracture (principal); G89.29 Other chronic pain; M54.50 Low back pain, unspecified; I11.0 Hypertensive heart disease with heart failure; I50.9 Heart failure, unspecified; I25.10 Atherosclerotic heart disease of native coronary artery without angina pectoris; I25.2 Old myocardial infarction; J44.9 Chronic obstructive pulmonary disease, unspecified; Z86.73 Personal history of transient ischemic attack (TIA), and cerebral infarction without residual deficits; F41.9 Anxiety disorder, unspecified; F32.A Depression, unspecified; F17.200 Nicotine dependence, unspecified, uncomplicated; F12.90 Cannabis use, unspecified, uncomplicated; Z88.7 Allergy status to serum and vaccine; Z91.040 Latex allergy status; Z91.018 Allergy to other foods; Z88.5 Allergy status to narcotic agent; Z79.82 Long term (current) use of aspirin; Z79.51 Long term (current) use of inhaled steroids; Z79.899 Other long term (current) drug therapy; X58.XXXA Exposure to other specified factors, initial encounter
CPT/HCPCS: 72128; 72131; 73521; 99284

== ENCOUNTER 2023-06-30 08:43 | Emergency (ER) | payer OTHER ==
[2023-06-30] MEDS ORDERED: LIDOCAINE 5% PATCH TOPICAL ONE (09:15)
[2023-06-30] MEDS ORDERED: KETOROLAC 15 MG/ML 1 ML VIAL IM STA ×2 (09:16→11:48)
--- NOTE | 2023-06-30 09:45 | ED ---
Back Pain HPI - General Chief Complaint: Back Pain/Injury Stated Complaint: Back Pain Time Seen by Provider: 06/30/23 08:46 Source: patient, RN notes reviewed Mode of arrival: EMS Limitations: no limitations - History of Present Illness Initial Comments: This is a 63-year-old female who presents to the emergency department for back pain. Patient was discharged from this facility approximately 3.5 hours ago for the same complaint. She had a workup done revealing chronic changes without any acute process and she was discharged home in stable condition. Patient returns, because she states that she continues to have severe pain. Patient is well- known to this emergency department for chronic pain and alcohol use. She does report taking 2 shots of vodka for her pain after she got home, which is typical for her. Denies any loss of bowel/bladder control or saddle anesthesia. Denies any fevers, chills, sore throat, cough, dyspnea, chest pain, palpitations, abdominal pain, nausea, vomiting, diarrhea, or headaches. MD Complaint: back pain - Related Data Home Medications Medication Instructions Recorded Confirmed Aspirin EC [Ecotrin Low Dose] 81 mg PO DAILY 02/11/19 05/23/23 Metoprolol Succinate (ER) [Toprol 50 mg PO DAILY 06/13/21 05/23/23 XL] Fluticasone Nasal [place] [Flonase 1 spr EA NOSTRIL DAILY 02/14/22 05/23/23 Nasal [place]] Simvastatin [Zocor] 40 mg PO HS 07/03/22 05/23/23 Isosorbide Mononitrate ER [Imdur] 30 mg PO DAILY 11/10/22 05/23/23 Ticagrelor [Brilinta] 90 mg PO BID 01/14/23 05/23/23 Nitroglycerin Sl Tabs [Nitrostat] 0.4 mg SL Q5M PRN 02/06/23 05/23/23 Albuterol Nebulized [Ventolin 2.5 mg INHALATION RT-QID PRN 05/17/23 05/23/23 Nebulized] Ergocalciferol (Vitamin D2) 1,250 mcg PO Q7D 05/17/23 05/23/23 [Drisdol (50,000 Iu)] Folic Acid-Vit B Complex-Vit C 1 cap PO DAILY 05/23/23 05/23/23 [Nephrocaps] Previous Rx's Medication Instructions Recorded Ondansetron Odt [Zofran ODT] 4 mg PO Q8HR PRN #20 tab 06/13/22 Albuterol Inhaler [Ventolin Hfa 2 puff INHALATION RT-QID PRN 30 01/22/23 Inhaler] Days #1 each Thiamine [Vitamin B-1] 100 mg PO DAILY 30 Days #30 tablet 05/20/23 Nicotine 21Mg/24Hr Patch [Habitrol] 1 patch TRANSDERM DAILY patch 05/25/23 Vancomycin 250 mg PO Q6H 30 Days #80 cap 05/25/23 Ketorolac [Toradol] 10 mg PO Q6HR PRN #15 tab 06/19/23 Lidocaine 5% Patch [Lidoderm 5% 1 patch TOPICAL DAILY PRN #30 patch 06/19/23 Patch] Ondansetron Odt [Zofran Odt] 4 mg PO Q8HR PRN #15 tab 06/19/23 Allergies Allergy/AdvReac Type Severity Reaction Status Date / Time [place] And Derivatives Allergy Rash/Hives Verified 06/30/23 08:57 [[place]] latex Allergy Rash/Hives Verified 05/23/23 16:53 tomato Allergy Diarrhea Verified 05/23/23 16:53 Influenza Virus Vaccines AdvReac Nausea & Verified 05/23/23 16:53 Vomiting morphine AdvReac Nausea & Verified 05/23/23 16:53 Vomiting Review of Systems ROS Statement: Those systems with pertinent positive or pertinent negative responses have been documented in the HPI. ROS Other: All systems not noted in ROS Statement are negative. Past Medical History Past Medical History: Asthma, Coronary Artery Disease (CAD), COPD, CVA/TIA, Eye Disorder, Hypertension, Liver Disease, Myocardial Infarction ([place]), Seizure Disorder, Vascular Disorder Additional Past Medical History / Comment(s): Pt recently admitted to [facility] for diarrhea, ETOH abuse. 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 soon Last Myocardial Infarction Date:: aug 2018 History of Any Multi-Drug Resistant Organisms: None Reported Past Surgical History: Cholecystectomy, Heart Catheterization, Orthopedic Surgery Additional Past Surgical History / Comment(s): L caratid stent, bilateral knee surgeries for tendon repair, bartholian cyst removed bilateral wrists, cataracts Past Anesthesia/Blood Transfusion Reactions: Motion Sickness Additional Past Anesthesia/Blood Transfusion Reaction / Comment(s): Pt has received blood without reaction. Past Psychological History: Anxiety, Depression Smoking Status: Current every day smoker Past Alcohol Use History: Abuse, Daily, Heavy Past Drug Use History: Marijuana - Past Family History Mother Family Medical History: Cancer, Congestive Heart Failure (CHF), Coronary Artery Disease (CAD), Hyperlipidemia Additional Family Medical History / Comment(s): Mother at age 85 from lung cancer. Father Family Medical History: Cancer, COPD Additional Family Medical History / Comment(s): Father at age 63 from lung cancer. Brother(s) Additional Family Medical History / Comment(s): Patient has a total of 7 siblings. 5 are alive without any major medical problems she is aware of. 2 siblings have one from alcohol abuse and 1. Coronary artery disease. Daughter(s) Additional Family Medical History / Comment(s): Patient has one daughter with no major medical problems. General Exam Limitations: no limitations General appearance: alert, in no apparent distress Head exam: Present: atraumatic, normocephalic, normal inspection Respiratory exam: Present: normal lung sounds bilaterally. Absent: respiratory distress, wheezes, rales, rhonchi, stridor Cardiovascular Exam: Present: regular rate, normal rhythm, normal heart sounds. Absent: systolic murmur, diastolic murmur, rubs, gallop, clicks Neurological exam: Present: alert, oriented X3, CN II-XII intact Psychiatric exam: Present: normal affect, normal mood Skin exam: Present: warm, dry, intact, normal color. Absent: rash Course Vital Signs 06/30/23 06/30/23 06/30/23 08:51 09:14 10:00 Temperature 98.5 F Pulse Rate 96 65 90 Respiratory 16 20 20 Rate Blood Pressure 142/107 148/95 114/76 O2 Sat by Pulse 96 98 98 Oximetry 06/30/23 06/30/23 11:00 11:47 Temperature 97.5 F L Pulse Rate 96 98 Respiratory 16 20 Rate Blood Pressure 97/74 106/84 O2 Sat by Pulse 98 100 Oximetry Medical Decision Making - Medical Decision Making This is a 63-year-old female who presents to the emergency department for back p ain. Was pt. sent in by a medical professional or institution? @ -No Did you speak to anyone other than the patient for history? @ -No Did you review nursing and triage notes? @ -Yes, and I agree, it is accurate with regards to the patient's symptoms. Were old charts reviewed? @ -CT scan of the lumbar spine obtained earlier this morning revealing no acute changes and old compression fractures and degenerative changes. Differential Diagnosis? @ -Differential Back Pain: Strain, zoster, cauda equina syndrome, epidural abscess, vertebral osteomyelitis, discitis, fracture, subluxation, disc herniation, DJD, spinal stenosis, dissection, AAA, pancreatitis, peptic ulcer disease, pyelonephritis, kidney stone, this is not meant to be an all-inclusive list. EKG interpreted by me (3pts min.)? @ -Not obtained X-rays interpreted by me (1pt min.)? @ -Not obtained CT interpreted by me (1pt min.)? @ -Not obtained U/S interpreted by me (1pt. min.)? @ -Not obtained What testing was considered but not performed? (CT, X-rays, U/S, labs)? Why? @ -None What meds were considered but not given? Why? @ -None Did you discuss the management of the patient with other professionals? @ -No Did you reconcile home meds? @ -No Was smoking cessation discussed for >3mins.? @ -I discussed smoking cessation for greater than 3 minutes. The risk of smoking were discussed with the patient including but not limited to risks of cancer, stroke, coronary artery disease and COPD. Also discussed with patient were multiple methods of quitting smoking. Lastly we discussed the financial cost of smoking. Was critical care preformed (if so, how long)? @ -No Were there social determinants of health that impacted care today? How? (Homelessness, low income, unemployed, alcoholism, drug addiction, transportation, low edu. Level, literacy, decrease access to med. care, halfway, rehab)? @ -No Was there de-escalation of care discussed even if they declined? (Discuss DNR or withdrawal of care, Hospice)? @ -No What co-morbidities impacted this encounter? (DM, HTN, Smoking, COPD, CAD, Cancer, CVA, Hep., AIDS, mental health diagnosis, sleep apnea, morbid obesity)? @ -Alcohol abuse Was patient admitted / discharged? @ -Discharged. Upon review of the computed tomography scan of the lumbar spine that the patient had early this morning, it revealed multiple degenerative changes and old compression fractures, without any new injuries. Patient was being very rude to nursing staff and EMS, and was advised that that is not acceptable. Her pain was controlled with a lidocaine patch and Toradol, and she was found to be sleeping comfortably in the examination room afterwards. She was clinically sober, in that she was walking without difficulty and she was not slurring her speech. She was given a second dose of Toradol prior to discharge, and was discharged home in a taxi in stable condition. Undiagnosed new problem with uncertain prognosis? @ -None Drug Therapy requiring intensive monitoring for toxicity (Heparin, Nitro, Insulin, Cardizem)? @ -None Were any procedures done? @ -None Diagnosis/symptom? @ -Back pain, alcohol abuse Acute, or Chronic, or Acute on Chronic? @ -Chronic Uncomplicated (without systemic symptoms) or Complicated (systemic symptoms)? @ -Uncomplicated Side effects of treatment? @ -None Exacerbation, Progression, or Severe Exacerbation] @ -Exacerbation Poses a threat to life or bodily function? @ -No Return precautions reviewed in depth, the patient is instructed to return to the emergency department with any new, worsening, or concerning symptoms. Patient verbalized understanding. This case was discussed in detail with the attending ED physician, Dr. Olivera. Presentation, findings, and treatment plan discussed in detail as well. Disposition Clinical Impression: Mechanical back pain, Alcohol abuse, Nicotine dependence Disposition: HOME SELF-CARE Instructions (If sedation given, give patient instructions): Chronic Back Pain (DC) Additional Instructions: Return to the emergency department with any new, worsening, or concerning symptoms. Follow up with your primary care provider in 1-2 days. Is patient prescribed a controlled substance at d/c from ED?: No Referrals: Miya Johnson MD [Primary Care Provider] - 1-2 days
[2023-06-30 11:49] VITALS: BP 106/84; PULSE 98; RESP 20; TEMP 97.5
== END 2023-06-30 12:19 | disposition home or self-care (01) ==
LOC: EC 08:43
DX: M54.9 Dorsalgia, unspecified (principal); F10.10 Alcohol abuse, uncomplicated; F17.200 Nicotine dependence, unspecified, uncomplicated; J44.9 Chronic obstructive pulmonary disease, unspecified; I10 Essential (primary) hypertension; I25.2 Old myocardial infarction; F12.90 Cannabis use, unspecified, uncomplicated; Z86.59 Personal history of other mental and behavioral disorders; Z79.51 Long term (current) use of inhaled steroids; Z79.82 Long term (current) use of aspirin; Z79.899 Other long term (current) drug therapy; Z88.5 Allergy status to narcotic agent; Z88.7 Allergy status to serum and vaccine; Z91.040 Latex allergy status; Z91.018 Allergy to other foods
CPT/HCPCS: 99284; 96372; J1885

== ENCOUNTER 2023-07-13 18:06 | Emergency (ER) | payer OTHER ==
[2023-07-13] MEDS ORDERED: KETOROLAC 15 MG/ML 1 ML VIAL IM STA (18:17)
[2023-07-13] MEDS ORDERED: LIDOCAINE 5% PATCH TOPICAL SCH (18:30)
--- NOTE | 2023-07-13 18:39 | ED ---
General Adult HPI - General Chief complaint: Back Pain/Injury Stated complaint: Back Pain Time Seen by Provider: 07/13/23 18:11 Source: patient, RN notes reviewed Mode of arrival: EMS Limitations: no limitations - History of Present Illness Initial comments: 63-year-old female with a past medical history significant for COPD, CVA, hypertension, liver disease presents to the emergency department via EMS with a chief complaint of low back pain. Patient reports worsening low back pain for the last 3 days. She denies any injury or trauma. She was recently seen here on 06/30/2023 for the same to which she had extensive imaging which was essentially negative for any acute pathology. She has been taking ibuprofen at home with mild symptomatic relief. She denies any red flag symptoms including fever, chills, saddle paresthesia, loss of bowel or bladder function. She reports that she is able to ambulate. She reports that she has attempted to see a house painting instructor however she is unable to get to that appointment secondary to pain. She describes the pain as chronic in nature. - Related Data Home Medications Medication Instructions Recorded Confirmed Aspirin EC [Ecotrin Low Dose] 81 mg PO DAILY 02/11/19 05/23/23 Metoprolol Succinate (ER) [Toprol 50 mg PO DAILY 06/13/21 05/23/23 XL] Fluticasone Nasal [place] [Flonase 1 spr EA NOSTRIL DAILY 02/14/22 05/23/23 Nasal [place]] Simvastatin [Zocor] 40 mg PO HS 07/03/22 05/23/23 Isosorbide Mononitrate ER [Imdur] 30 mg PO DAILY 11/10/22 05/23/23 Ticagrelor [Brilinta] 90 mg PO BID 01/14/23 05/23/23 Nitroglycerin Sl Tabs [Nitrostat] 0.4 mg SL Q5M PRN 02/06/23 05/23/23 Albuterol Nebulized [Ventolin 2.5 mg INHALATION RT-QID PRN 05/17/23 05/23/23 Nebulized] Ergocalciferol (Vitamin D2) 1,250 mcg PO Q7D 05/17/23 05/23/23 [Drisdol (50,000 Iu)] Folic Acid-Vit B Complex-Vit C 1 cap PO DAILY 05/23/23 05/23/23 [Nephrocaps] Previous Rx's Medication Instructions Recorded Ondansetron Odt [Zofran ODT] 4 mg PO Q8HR PRN #20 tab 06/13/22 Albuterol Inhaler [Ventolin Hfa 2 puff INHALATION RT-QID PRN 30 01/22/23 Inhaler] Days #1 each Thiamine [Vitamin B-1] 100 mg PO DAILY 30 Days #30 tablet 05/20/23 Nicotine 21Mg/24Hr Patch [Habitrol] 1 patch TRANSDERM DAILY patch 05/25/23 Vancomycin 250 mg PO Q6H 30 Days #80 cap 05/25/23 Ketorolac [Toradol] 10 mg PO Q6HR PRN #15 tab 06/19/23 Lidocaine 5% Patch [Lidoderm 5% 1 patch TOPICAL DAILY PRN #30 patch 06/19/23 Patch] Ondansetron Odt [Zofran Odt] 4 mg PO Q8HR PRN #15 tab 06/19/23 Ibuprofen [Motrin] 800 mg PO Q6HR #30 tab 07/13/23 Allergies Allergy/AdvReac Type Severity Reaction Status Date / Time [place] And Derivatives Allergy Rash/Hives Verified 07/13/23 18:15 [[place]] latex Allergy Rash/Hives Verified 07/13/23 18:15 tomato Allergy Diarrhea Verified 07/13/23 18:15 Influenza Virus Vaccines AdvReac Nausea & Verified 07/13/23 18:15 Vomiting morphine AdvReac Nausea & Verified 07/13/23 18:15 Vomiting Review of Systems ROS Statement: Those systems with pertinent positive or pertinent negative responses have been documented in the HPI. ROS Other: All systems not noted in ROS Statement are negative. Past Medical History Past Medical History: Asthma, Coronary Artery Disease (CAD), COPD, CVA/TIA, Eye Disorder, Hypertension, Liver Disease, Myocardial Infarction (CA), Seizure Disorder, Vascular Disorder Additional Past Medical History / Comment(s): Pt recently admitted to [facility] for diarrhea, ETOH abuse. 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 soon Last Myocardial Infarction Date:: aug 2018 History of Any Multi-Drug Resistant Organisms: None Reported Past Surgical History: Cholecystectomy, Heart Catheterization, Orthopedic Surgery Additional Past Surgical History / Comment(s): L caratid stent, bilateral knee surgeries for tendon repair, bartholian cyst removed bilateral wrists, cataracts Past Anesthesia/Blood Transfusion Reactions: Motion Sickness Additional Past Anesthesia/Blood Transfusion Reaction / Comment(s): Pt has received blood without reaction. Past Psychological History: Anxiety, Depression Smoking Status: Current every day smoker Past Alcohol Use History: Abuse, Daily, Heavy Past Drug Use History: Marijuana - Past Family History Mother Family Medical History: Cancer, Congestive Heart Failure (CHF), Coronary Artery Disease (CAD), Hyperlipidemia Additional Family Medical History / Comment(s): Mother at age 85 from lung cancer. Father Family Medical History: Cancer, COPD Additional Family Medical History / Comment(s): Father at age 63 from lung cancer. Brother(s) Additional Family Medical History / Comment(s): Patient has a total of 7 siblings. 5 are alive without any major medical problems she is aware of. 2 siblings have one from alcohol abuse and 1. Coronary artery disease. Daughter(s) Additional Family Medical History / Comment(s): Patient has one daughter with no major medical problems. General Exam - General Exam Comments Initial Comments: General: Alert, in no acute distress Head: atraumatic normocephalic. Eyes PERRL, EOMI intact, mucous membranes moist Respiratory: Lungs clear to auscultation bilaterally Cardiovascular: Heart rate regular rate and rhythm Abdominal: Soft without guarding or rebound Extremities: Normal inspection with full range of motion and normal capillary refill, patient able to move all extremities freely when distracted Neuroogic: alert and oriented 3, CN II-XII intact, able to ambulate with steady gait Skin: warm dry and intact with normal color Limitations: no limitations Course Vital Signs 07/13/23 07/13/23 07/13/23 18:13 19:58 20:18 Temperature 98 F 97.7 F Pulse Rate 92 100 Respiratory 16 18 Rate Blood Pressure 118/97 136/97 O2 Sat by Pulse 98 98 Oximetry - Reevaluation(s) Reevaluation #1: 07/13/23 20:05 Should reevaluated and updated on x-ray results. Patient offered additional pain medication to which she refused. Patient "please do not give me anything stronger I need to go home." Patient agreeable with the plan for discharge home at this time. Medical Decision Making - Medical Decision Making Was pt. sent in by a medical professional or institution (, PA, TRUCK MANAGER, urgent care, hospital, or [facility]...) When possible be specific @ -[No] Did you speak to anyone other than the patient for history (EMS, parent, family, police, friend...)? What history was obtained from this source @ -[No] Did you review nursing and triage notes (agree or disagree)? Why? @ -[I reviewed and agree with nursing and triage notes] Were old charts reviewed (outside hosp., previous admission, EMS record, old EKG, old radiological studies, urgent care reports/EKG's, [facility] records)? Report findings @ -CT results reviewed from 06/30/2023 which was negative. Differential Diagnosis (chest pain, altered mental status, abdominal pain women, abdominal pain men, vaginal bleeding, weakness, fever, dyspnea, syncope, headache, dizziness, GI bleed, back pain, seizure, CVA, palpatations, mental health, musculoskeletal)? @ -[not applicable] EKG interpreted by me (3pts min.). @ -[As above] X-rays interpreted by me (1pt min.). @ -Lumbar and hip x-rays are negative for any evidence of acute fracture or dislocation. They are unchanged from x-ray results from February 2023. CT interpreted by me (1pt min.). @ -[None done] U/S interpreted by me (1pt. min.). @ -[None done] What testing was considered but not performed or refused? (CT, X-rays, U/S, labs)? Why? @ -[None] What meds were considered but not given or refused? Why? @ -[None] Did you discuss the management of the patient with other professionals (lulu locke i.e. , YESSY, TRUCK MANAGER, lab, RT, psych nurse, social work associate, clinical medical transcriptionist, teacher, annual giving officer, human services case manager)? Give summary @ -[No] Was smoking cessation discussed for >3mins.? @ -[No] Was critical care preformed (if so, how long)? @ -[No] Were there social determinants of health that impacted care today? How? (Homelessness, low income, unemployed, alcoholism, drug addiction, transportation, low edu. Level, literacy, decrease access to med. care, detention, rehab)? @ -[No] Was there de-escalation of care discussed even if they declined (Discuss DNR or withdrawal of care, Hospice)? DNR status @ -[No] What co-morbidities impacted this encounter? (DM, HTN, Smoking, COPD, CAD, Cancer, CVA, ARF, Chemo, Hep., AIDS, mental health diagnosis, sleep apnea, morbid obesity)? @ -Morbid obesity Was patient admitted / discharged? Hospital course, mention meds given and route, prescriptions, significant lab abnormalities, going to OR and other pertinent info. @ -Chart. This is a pleasant 63-year-old female who presents to the emergency department with acute on chronic back pain. Patient had a thorough history and physical exam performed while in the ED. Physical exam is essentially unremarkable. Heart rate regular rate and rhythm, lungs clear to auscultation bilaterally, abdomen soft nontender. There are no focal neuro deficits noted upon exam. Patient is able to move all extremities freely and ambulate with a steady gait. Patient had x-rays which were negative. Patient was offered Toradol however she refused at the time of evaluation. She had a Lidoderm patch applied with mild symptomatic relief. Patient discharged in stable condition with return precautions discussed at length. Case discussed with GORGE Mathew who agrees with plan of care Undiagnosed new problem with uncertain prognosis? @ -[No] Drug Therapy requiring intensive monitoring for toxicity (Heparin, Nitro, Insulin, Cardizem)? @ -[No] Were any procedures done? @ -[No] Diagnosis/symptom? @ -Chronic Back Pain Acute, or Chronic, or Acute on Chronic? @ -Acute Uncomplicated (without systemic symptoms) or Complicated (systemic symptoms)? @ -Uncomplicated Side effects of treatment? @ -[No] Exacerbation, Progression, or Severe Exacerbation? @ -[No] Poses a threat to life or bodily function? How? (Chest pain, [place], CA, pneumonia, PE, COPD, DKA, ARF, appy, cholecystitis, CVA, Diverticulitis, Homicidal, Suicidal, threat to staff... and all critical care pts) @ -Low likelihood Disposition Clinical Impression: Chronic pain, Mechanical back pain, Back pain Disposition: HOME SELF-CARE Condition: Stable Instructions (If sedation given, give patient instructions): Acute Low Back P ain (ED) Additional Instructions: These take Tylenol or Motrin for pain as needed Please monitor symptoms closely Please return to the nearest emergency department if symptoms worsen or persist Prescriptions: Ibuprofen [Motrin] 800 mg PO Q6HR #30 tab Is patient prescribed a controlled substance at d/c from ED?: No Referrals: Miya Johnson MD [Primary Care Provider] - 1-2 days Time of Disposition: 20:06
--- NOTE | 2023-07-13 19:00 | XR ---
EXAMINATION TYPE: XR Hip Bilateral Complete DATE OF EXAM: 07/13/2023 6:36 PM INDICATION: Patient age:Female; 63 years old; Reason for study: low back pain; COMPARISON: None. TECHNIQUE: The bilateral hips were examined in the frontal and lateral projections and a AP pelvis. FINDINGS: No evidence for acute process, joint dislocation or significant soft tissue swelling. Osteo phyte formation of the superior acetabulum of the hip. IMPRESSION: 1. No evidence for acute process. 2. Mild bilateral hip osteoarthrosis.
--- NOTE | 2023-07-13 19:03 | XR ---
EXAMINATION TYPE: XR lumbar spine 2 or 3V DATE OF EXAM: 07/13/2023 6:36 PM INDICATION: Patient age:Female; 63 years old; Reason for study: low back pain; COMPARISON: 01/20/2023. TECHNIQUE: Frontal, lateral and coned in L5-S1 lateral views of the spine. FINDINGS: No evidence of any acute osseous pathology. There is wedging of the L1 and L3-4 vertebral b deonte similar to prior. There is normal alignment of the lumbar vertebral bodies. Mild scattered disc s pace narrowing. Multilevel marginal osteophyte formation throughout the visualized spine. There is fa cet joint arthropathy throughout the spine. Scattered at least mild neural foraminal stenosis. Athero sclerosis of the arterial vasculature. Right upper quadrant cholecystectomy clips. IMPRESSION: 1. Similar wedging of the anterior aspect of the L1 and L4 vertebral bodies compared to 01/20/2023. 2. Moderate multilevel degeneration changes of the spine. 3. Severe atherosclerosis.
[2023-07-13 19:59] VITALS: BP 136/97; PULSE 100; RESP 18
[2023-07-13] MEDS ORDERED: IBUPROFEN 800 MG TAB PO STA (20:07)
[2023-07-13 20:20] VITALS: TEMP 97.7
== END 2023-07-13 20:23 | disposition home or self-care (01) ==
LOC: EC 18:06
DX: M51.36 Other intervertebral disc degeneration, lumbar region (principal); M16.0 Bilateral primary osteoarthritis of hip; I25.10 Atherosclerotic heart disease of native coronary artery without angina pectoris; J44.9 Chronic obstructive pulmonary disease, unspecified; I10 Essential (primary) hypertension; I25.2 Old myocardial infarction; F17.200 Nicotine dependence, unspecified, uncomplicated; F12.90 Cannabis use, unspecified, uncomplicated; Z86.59 Personal history of other mental and behavioral disorders; Z79.82 Long term (current) use of aspirin; Z79.51 Long term (current) use of inhaled steroids; Z79.899 Other long term (current) drug therapy; Z91.018 Allergy to other foods; Z88.7 Allergy status to serum and vaccine; Z88.5 Allergy status to narcotic agent; Z91.040 Latex allergy status
CPT/HCPCS: 72100; 73521; 99284

== ENCOUNTER 2023-07-29 12:22 | Observation (INO) | payer OTHER ==
[2023-07-29] MEDS ORDERED: HYDROcodone/APAP 5-325MG 1 EACH TAB PO STA (13:15)
--- NOTE | 2023-07-29 13:17 | ED ---
Chest Pain HPI - General Chief Complaint: Chest Pain Stated Complaint: pain/SOB Time Seen by Provider: 07/29/23 12:49 Source: patient, EMS Mode of arrival: EMS Limitations: physical limitation - History of Present Illness Initial Comments: This patient is a 63-year-old woman who presents to have evaluation mainly of generalized weakness. She also is having cough and chest/back pain. She states that she has long-standing issues of aches and pains, and that she doesn't really have anything to take at home. Patient has developed a cough last night. She has not noted any associated fever. No dyspnea. Cough is nonproductive. MD Complaint: other Onset/Timin -: days(s) Onset: during rest Pain Location: left chest, right chest Pain Radiation: back Severity: moderate Quality: aching Consistency: constant Improves With: nothing Worsens With: other (Coughing) Other Symptoms: cough Treatments Prior to Arrival: none - Related Data Home Medications Medication Instructions Recorded Confirmed Aspirin EC [Ecotrin Low Dose] 81 mg PO DAILY 02/11/19 07/29/23 Metoprolol Succinate (ER) [Toprol 50 mg PO DAILY 06/13/21 07/29/23 XL] Fluticasone Nasal [place] [Flonase 1 spr EA NOSTRIL DAILY PRN 02/14/22 07/29/23 Nasal [place]] Simvastatin [Zocor] 40 mg PO HS 07/03/22 07/29/23 Isosorbide Mononitrate ER [Imdur] 30 mg PO DAILY 11/10/22 07/29/23 Ticagrelor [Brilinta] 90 mg PO BID 01/14/23 07/29/23 Nitroglycerin Sl Tabs [Nitrostat] 0.4 mg SL Q5M PRN 02/06/23 07/29/23 Albuterol Nebulized [Ventolin 2.5 mg INHALATION RT-QID PRN 05/17/23 07/29/23 Nebulized] Ergocalciferol (Vitamin D2) 1,250 mcg PO Q7D 05/17/23 07/29/23 [Drisdol (50,000 Iu)] Folic Acid-Vit B Complex-Vit C 1 cap PO DAILY 05/23/23 07/29/23 [Nephrocaps] Budesonide/Formoterol Fumarate 2 puff INHALATION RT-BID 07/29/23 07/29/23 [Symbicort 160-4.5 Mcg Inhaler] Ibuprofen [Motrin] 800 mg PO Q6H PRN 07/29/23 07/29/23 Nicotine 21Mg/24Hr Patch [Habitrol] 1 patch TRANSDERM DAILY PRN 07/29/23 07/29/23 Previous Rx's Medication Instructions Recorded Albuterol Inhaler [Ventolin Hfa 2 puff INHALATION RT-QID PRN 30 01/22/23 Inhaler] Days #1 each Thiamine [Vitamin B-1] 100 mg PO DAILY 30 Days #30 tablet 05/20/23 Ketorolac [Toradol] 10 mg PO Q6HR PRN #15 tab 06/19/23 Lidocaine 5% Patch [Lidoderm 5% 1 patch TOPICAL DAILY PRN #30 patch 06/19/23 Patch] Ondansetron Odt [Zofran ODT] 4 mg PO Q8HR PRN #15 tab 06/19/23 chlordiazePOXIDE HCl [Librium] 25 mg PO TID #6 cap 07/31/23 Allergies Allergy/AdvReac Type Severity Reaction Status Date / Time [place] And Derivatives Allergy Rash/Hives Verified 07/29/23 17:33 [[place]] latex Allergy Rash/Hives Verified 07/29/23 17:33 tomato Allergy Diarrhea Verified 07/29/23 17:33 Influenza Virus Vaccines AdvReac Nausea & Verified 07/29/23 17:33 Vomiting morphine AdvReac Nausea & Verified 07/29/23 17:33 Vomiting Review of Systems ROS Statement: Those systems with pertinent positive or pertinent negative responses have been documented in the HPI. ROS Other: All systems not noted in ROS Statement are negative. Constitutional: Reports: weakness. Denies: fever, chills Eyes: Denies: vision change Respiratory: Reports: cough. Denies: dyspnea, wheezes, hemoptysis Cardiovascular: Reports: chest pain Gastrointestinal: Denies: abdominal pain, vomiting, diarrhea Genitourinary: Denies: dysuria, hematuria Musculoskeletal: Reports: back pain, arthralgia Skin: Denies: rash Neurological: Denies: headache, weakness, numbness EKG Findings - EKG Results: EKG: interpreted by ERMD, sinus rhythm (Rate 89 bpm), normal axis, normal QRS - Blocks, [place], Hypertrophy, ST Abn: Repolarization changes or abnormalities: nonspecific abnormality, ST segment, and/or T wave, Q-T interval prolongation Past Medical History Past Medical History: Asthma, Coronary Artery Disease (CAD), COPD, CVA/TIA, Eye Disorder, Hypertension, Liver Disease, Myocardial Infarction ([place]), Seizure Disorder, Vascular Disorder Additional Past Medical History / Comment(s): Pt recently admitted to [facility] for diarrhea, ETOH abuse. 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 soon Last Myocardial Infarction Date:: aug 2018 History of Any Multi-Drug Resistant Organisms: None Reported Past Surgical History: Cholecystectomy, Heart Catheterization, Orthopedic Surgery Additional Past Surgical History / Comment(s): L caratid stent, bilateral knee surgeries for tendon repair, bartholian cyst removed bilateral wrists, cataracts Past Anesthesia/Blood Transfusion Reactions: Motion Sickness Additional Past Anesthesia/Blood Transfusion Reaction / Comment(s): Pt has received blood without reaction. Past Psychological History: Anxiety, Depression Smoking Status: Current every day smoker Past Alcohol Use History: Abuse, Daily, Heavy Past Drug Use History: Marijuana - Past Family History Mother Family Medical History: Cancer, Congestive Heart Failure (CHF), Coronary Artery Disease (CAD), Hyperlipidemia Additional Family Medical History / Comment(s): Mother at age 85 from lung cancer. Father Family Medical History: Cancer, COPD Additional Family Medical History / Comment(s): Father at age 63 from lung cancer. Brother(s) Additional Family Medical History / Comment(s): Patient has a total of 7 siblings. 5 are alive without any major medical problems she is aware of. 2 s iblings have one from alcohol abuse and 1. Coronary artery disease. Daughter(s) Additional Family Medical History / Comment(s): Patient has one daughter with no major medical problems. General Exam Limitations: physical limitation General appearance: alert, in no apparent distress, appears intoxicated Head exam: Present: atraumatic, normocephalic Eye exam: Present: normal appearance. Absent: scleral icterus, conjunctival injection ENT exam: Present: mucous membranes dry Neck exam: Present: normal inspection Respiratory exam: Present: normal lung sounds bilaterally. Absent: respiratory distress, wheezes, rales, rhonchi, stridor Cardiovascular Exam: Present: regular rate, normal rhythm, normal heart sounds. Absent: systolic murmur, diastolic murmur, rubs, gallop GI/Abdominal exam: Present: soft. Absent: distended, tenderness, guarding, rebound, rigid, mass Extremities exam: Present: normal inspection, normal capillary refill. Absent: pedal edema, calf tenderness Back exam: Present: normal inspection. Absent: CVA tenderness (R), CVA tenderness (L) Neurological exam: Present: alert Skin exam: Present: warm, dry, intact, normal color. Absent: rash Course Vital Signs 07/29/23 07/29/23 07/29/23 12:39 16:16 16:20 Temperature 98.7 F Pulse Rate 93 97 103 H Respiratory 20 20 18 Rate Blood Pressure 137/90 154/98 O2 Sat by Pulse 96 98 Oximetry 07/29/23 07/29/23 07/29/23 16:29 18:16 19:54 Temperature 98.8 F Pulse Rate 103 H 104 H 102 H Respiratory 18 20 Rate Blood Pressure 152/92 O2 Sat by Pulse 95 Oximetry 07/29/23 07/29/23 07/29/23 20:08 21:26 23:53 Temperature Pulse Rate 111 H 122 H 106 H Respiratory 18 Rate Blood Pressure 129/96 125/92 O2 Sat by Pulse Oximetry 07/30/23 01:00 Temperature Pulse Rate 108 H Respiratory Rate Blood Pressure 146/86 O2 Sat by Pulse Oximetry Chest Pain [facility] The patient had chest x-ray which I interpreted as being negative for acute infiltrate, nose are failure, pneumothorax. Was pt. sent in by a medical professional or institution (, PA, MEDICAL INSURANCE COLLECTOR, urgent care, hospital, or care home...) When possible be specific @ -[No] Did you speak to anyone other than the patient for history (EMS, parent, family, police, friend...)? What history was obtained from this source @ -[No] Did you review nursing and triage notes (agree or disagree)? Why? @ -[I reviewed and agree with nursing and triage notes] Were old charts reviewed (outside hosp., previous admission, EMS record, old EKG, old radiological studies, urgent care reports/EKG's, care home records)? Report findings @ -[old charts were reviewed] Differential Diagnosis (chest pain, altered mental status, abdominal pain women, abdominal pain men, vaginal bleeding, weakness, fever, dyspnea, syncope, headache, dizziness, GI bleed, back pain, seizure, CVA, palpatations, mental health, musculoskeletal)? @ -[Differential Musculoskeletal Muscular strain, contusion, ligament sprain, fracture, arthritis, septic arthritis, bursitis, cellulitis, muscle spasm, nerve compression, DVT, arterial occlusion, herpes zoster, electrolyte abnormality, tumor.... This is not meant to be in all inclusive list EKG interpreted by me (3pts min.). @ -[As above] X-rays interpreted by me (1pt min.). @ -[I interpreted as above CT interpreted by me (1pt min.). @ -[None done] U/S interpreted by me (1pt. min.). @ -[None done] What testing was considered but not performed or refused? (CT, X-rays, U/S, labs)? Why? @ -[None] What meds were considered but not given or refused? Why? @ -[None] Did you discuss the management of the patient with other professionals (professionals i.e. , PA, MEDICAL INSURANCE COLLECTOR, lab, RT, psych nurse, secondary social studies teacher, cryptographic center specialist, teacher, certified juvenile probation officer, nurse case management)? Give summary @ -[Case discussed with admitting physician Was smoking cessation discussed for >3mins.? @ -[No] Was critical care preformed (if so, how long)? @ -[No] Were there social determinants of health that impacted care today? How? (Homelessness, low income, unemployed, alcoholism, drug addiction, transportation, low edu. Level, literacy, decrease access to med. care, care home, rehab)? @ -[Suspected alcohol dependence Was there de-escalation of care discussed even if they declined (Discuss DNR or withdrawal of care, Hospice)? DNR status @ -[No] What co-morbidities impacted this encounter? (DM, HTN, Smoking, COPD, CAD, Cancer, CVA, ARF, Chemo, Hep., AIDS, mental health diagnosis, sleep apnea, morbid obesity)? @ -[None] Was patient admitted / discharged? Hospital course, mention meds given and route, prescriptions, significant lab abnormalities, going to OR and other pertinent info. @ -[This patient is 63-year-old woman who is here with complaint of exacerbation of chronic aches and pains. The patient is found to have significant alcohol intoxication. Given the alcohol level, patient is admitted to treat impending delirium tremens. Undiagnosed new problem with uncertain prognosis? @ -[No] Drug Therapy requiring intensive monitoring for toxicity (Heparin, Nitro, Insulin, Cardizem)? @ -[No] Were any procedures done? @ -[No] Diagnosis/symptom? @ -[Acute alcohol intoxication, suspect dependence Impending alcohol withdrawal Exacerbation of chronic back pain Acute, or Chronic, or Acute on Chronic? @ -[Acute Uncomplicated (without systemic symptoms) or Complicated (systemic symptoms)? @ -[Uncomplicated Side effects of treatment? @ -[No] Exacerbation, Progression, or Severe Exacerbation? @ -[No] Poses a threat to life or bodily function? How? (Chest pain, [place], [place], pneumonia, PE, COPD, DKA, ARF, appy, cholecystitis, CVA, Diverticulitis, Homicidal, Suicidal, threat to staff... and all critical care pts) @ -[Untreated alcohol withdrawal may progress to life-threatening delirium tremens Disposition Clinical Impression: Alcohol intoxication, COPD (chronic obstructive pulmonary disease), Chronic back pain Disposition: ADMITTED IP TO THIS HOSP Condition: Fair Is patient prescribed a controlled substance at d/c from ED?: No
[2023-07-29 13:51] LABS: Anisocytosis Slight; Basophils # (A) 0.1 k/uL (0-0.2); Basophils % (A) 1 %; Eosinophils # (A) 0.1 k/uL (0-0.7); Eosinophils % (A) 1 %; HCT 38.5 % (34.0-46.0); HGB 12.8 gm/dL (11.4-16.0); Lymphocytes # (A) 1.3 k/uL (1.0-4.8); Lymphocytes % (A) 20 %; MCH 30.4 pg (25.0-35.0); MCHC 33.2 g/dL (31.0-37.0); MCV 91.5 fL (80.0-100.0); Mean Platelet Volume 7.6; Monocytes # (A) 0.3 k/uL (0-1.0); Monocytes % (A) 4 %; Neutrophils # (A) 4.5 k/uL (1.3-7.7); Neutrophils % (A) 71 %; Platelet Count 161 k/uL (150-450); RBC 4.21 m/uL (3.80-5.40); WBC 6.3 k/uL (3.8-10.6)
--- NOTE | 2023-07-29 14:00 | XR ---
EXAMINATION TYPE: XR chest 2V DATE OF EXAM: 07/29/2023 COMPARISON: 8823 TECHNIQUE: PA and lateral views submitted. HISTORY: Chest pain FINDINGS: The lungs are clear and there is no pneumothorax, pleural effusion, or focal pneumonia. Heart size normal and no overt failure. Osseous structures stable. Atherosclerotic change aorta. IMPRESSION: 1. No acute process.
[2023-07-29 14:04] LABS: NT-Pro-B-Type Natriuretic Pept 202 pg/mL
[2023-07-29 14:10] LABS: ALT 51 U/L (4-34); AST 98 U/L (14-36); African American GFR (CKD) >90 (>60 ml/min/1.73 sqM); Albumin 4.2 g/dL (3.5-5.0); Alkaline Phosphatase 169 U/L (38-126); Anion Gap 17 mmol/L; Blood Urea Nitrogen 5 mg/dL (7-17); Calcium 8.7 mg/dL (8.4-10.2); Carbon Dioxide 19 mmol/L (22-30); Chloride 103 mmol/L (98-107); Glucose 83 mg/dL (74-99); Magnesium 1.7 mg/dL (1.6-2.3); Non-African American GFR(CKD) >90 (>60 ml/min/1.73 sqM); Potassium 3.9 mmol/L (3.5-5.1); Sodium 139 mmol/L (137-145); Total Bilirubin 0.8 mg/dL (0.2-1.3); Total Protein 7.5 g/dL (6.3-8.2)
[2023-07-29 14:17] LABS: Alcohol 329 mg/dL
[2023-07-29 14:31] LABS: Partial Thromboplastin Time 25.1 sec (22.0-30.0); Prothrombin Time 10.2 sec (9.0-12.0)
[2023-07-29] MEDS ORDERED: SODIUM CHLORIDE 0.9% 1,000 ML IV STA (15:43)
[2023-07-29] MEDS: THIAMINE 100 MG TAB PO SCH (16:11)
[2023-07-29] MEDS ORDERED: NALOXONE 0.4 MG/ML 1 ML VIAL IV PRN (16:17)
[2023-07-29] MEDS ORDERED: LORazepam 2 MG/ML INJ IV PRN ×2 (16:19)
[2023-07-29] MEDS ORDERED: THIAMINE 100 MG/ML 2 ML VIAL IM STA (16:19)
[2023-07-29] MEDS ORDERED: chlordiazePOXIDE 25 MG CAP PO PRN (16:19)
[2023-07-29] MEDS: ALBUTEROL NEBULIZED 2.5 MG/3 ML INHALATION PRN ×2 (16:20→19:54)
[2023-07-29] MEDS ORDERED: SODIUM CHLORIDE 0.9% 1,000 ML IV SCH (16:30)
[2023-07-29] MEDS: FAMOTIDINE 20 MG TAB PO SCH (20:26)
[2023-07-29] MEDS: LORazepam 2 MG/ML INJ IV PRN ×2 (20:37→23:03)
[2023-07-29] MEDS: HYDROcodone/APAP 5-325MG 1 EACH TAB PO PRN (21:29)
[2023-07-29] MEDS ORDERED: ONDANSETRON 4 MG/2 ML VIAL IVP STA (23:05)
[2023-07-29] MEDS: BENZOCAINE/MENTHOL LOZENG 1 EACH LOZENGE MUCOUS MEM PRN (23:33)
--- NOTE | 2023-07-30 01:27 | P.HPIM ---
History of Present Illness H&P Date: 07/29/23 Chief Complaint: Generalized weakness Patient is a 63-year-old female with a known history of coronary artery disease status post cardiac catheterization in January 2023, COPD, history of diverticulitis and recent admission with C. difficile colitis in May 2023, COPD, hypertension, alcohol abuse and history of CVA with right-sided weakness/speech issues and chronic back pain and currently everyday smoker and heavy alcohol abuse presents to ER with complaints of generalized weakness. Patient is also complaining of cough since last night which is mainly dry without any sputum production. Patient has been afebrile. Denies any chest pain. No abdominal pain or diarrhea. Patient was intoxicated with alcohol level 329 on admission. WBC 6.3 hemoglobin 12.8 and platelets 161 RDW 18.0 Sodium 139 potassium 3.9 chloride 103 bicarb is 19 BUN 5 and creatinine 0.63 AST 58 ALT 51 alk phos 169 and troponin 0.013 proBNP 202 Review of Systems Constitutional: Patient denies any fever or chills . Complaints of generalized weakness. Abdomen: Patient denied any nausea or vomiting or abd. pain Cardiovascular: Patient denies any chest pain or short of breath no palpitations. Respiratory: patient complains of cough. no sputum production. No shortness of breath Neurologic: Patient denied any numbness or tingling headache. Musculoskeletal: Patient denies any complaints of joint swelling or deformity. Skin: Negative Psychiatric: Negative Endocrine: No heat or cold intolerance. No recent weight gain. Genitourinary: No dysuria or hematuria. All other 14 point ROS negative except the above Past Medical History Past Medical History: Asthma, Coronary Artery Disease (CAD), COPD, CVA/TIA, Eye Disorder, Hypertension, Liver Disease, Myocardial Infarction ([place]), Seizure Disorder, Vascular Disorder Additional Past Medical History / Comment(s): Pt recently admitted to [facility] for diarrhea, ETOH abuse. 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 soon Last Myocardial Infarction Date:: aug 2018 History of Any Multi-Drug Resistant Organisms: None Reported Past Surgical History: Cholecystectomy, Heart Catheterization, Orthopedic Surgery Additional Past Surgical History / Comment(s): L caratid stent, bilateral knee surgeries for tendon repair, bartholian cyst removed bilateral wrists, cataracts Past Anesthesia/Blood Transfusion Reactions: Motion Sickness Additional Past Anesthesia/Blood Transfusion Reaction / Comment(s): Pt has received blood without reaction. Past Psychological History: Anxiety, Depression Smoking Status: Current every day smoker Past Alcohol Use History: Abuse, Daily, Heavy Past Drug Use History: Marijuana - Past Family History Mother Family Medical History: Cancer, Congestive Heart Failure (CHF), Coronary Artery Disease (CAD), Hyperlipidemia Additional Family Medical History / Comment(s): Mother at age 85 from lung cancer. Father Family Medical History: Cancer, COPD Additional Family Medical History / Comment(s): Father at age 63 from lung cancer. Brother(s) Additional Family Medical History / Comment(s): Patient has a total of 7 siblings. 5 are alive without any major medical problems she is aware of. 2 si blings have one from alcohol abuse and 1. Coronary artery disease. Daughter(s) Additional Family Medical History / Comment(s): Patient has one daughter with no major medical problems. Medications and Allergies Home Medications Medication Instructions Recorded Confirmed Type Aspirin EC [Ecotrin Low Dose] 81 mg PO DAILY 02/11/19 07/29/23 History Metoprolol Succinate (ER) [Toprol 50 mg PO DAILY 06/13/21 07/29/23 History XL] Fluticasone Nasal [place] [Flonase 1 spr EA NOSTRIL DAILY PRN 02/14/22 07/29/23 History Nasal [place]] Simvastatin [Zocor] 40 mg PO HS 07/03/22 07/29/23 History Isosorbide Mononitrate ER [Imdur] 30 mg PO DAILY 11/10/22 07/29/23 History Ticagrelor [Brilinta] 90 mg PO BID 01/14/23 07/29/23 History Albuterol Inhaler [Ventolin Hfa 2 puff INHALATION RT-QID PRN 01/22/23 07/29/23 Rx Inhaler] Days #1 each Nitroglycerin Sl Tabs [Nitrostat] 0.4 mg SL Q5M PRN 02/06/23 07/29/23 History Albuterol Nebulized [Ventolin 2.5 mg INHALATION RT-QID PRN 05/17/23 07/29/23 [place] Nebulized] Ergocalciferol (Vitamin D2) 1,250 mcg PO Q7D 05/17/23 07/29/23 History [Drisdol (50,000 Iu)] Thiamine [Vitamin B-1] 100 mg PO DAILY 30 Days #30 tablet 05/20/23 07/29/23 Rx Folic Acid-Vit B Complex-Vit C 1 cap PO DAILY 05/23/23 07/29/23 History [Nephrocaps] Ketorolac [Toradol] 10 mg PO Q6HR PRN #15 tab 06/19/23 07/29/23 Rx Lidocaine 5% Patch [Lidoderm 5% 1 patch TOPICAL DAILY PRN #30 patch 06/19/23 07/29/23 Rx Patch] Ondansetron Odt [Zofran Odt] 4 mg PO Q8HR PRN #15 tab 06/19/23 07/29/23 Rx Budesonide/Formoterol Fumarate 2 puff INHALATION RT-BID 07/29/23 07/29/23 History [Symbicort 160-4.5 Mcg Inhaler] Ibuprofen [Motrin] 800 mg PO Q6H PRN 07/29/23 07/29/23 History Nicotine 21Mg/24Hr Patch [Habitrol] 1 patch TRANSDERM DAILY PRN 07/29/23 07/29/23 History Vancomycin HCl [Vancocin HCl] 250 mg PO Q6H 07/29/23 07/29/23 History Allergies Allergy/AdvReac Type Severity Reaction Status Date / Time [place] And Derivatives Allergy Rash/Hives Verified 07/29/23 17:33 [[place]] latex Allergy Rash/Hives Verified 07/29/23 17:33 tomato Allergy Diarrhea Verified 07/29/23 17:33 Influenza Virus Vaccines AdvReac Nausea & Verified 07/29/23 17:33 Vomiting morphine AdvReac Nausea & Verified 07/29/23 17:33 Vomiting Physical Exam Vitals: Vital Signs Temp Pulse Resp BP Pulse Ox 07/29/23 20:08 111 H 07/29/23 19:54 102 H 07/29/23 18:16 98.8 F 104 H 20 152/92 95 07/29/23 16:29 103 H 18 07/29/23 16:20 103 H 18 07/29/23 16:16 97 20 154/98 98 07/29/23 12:39 98.7 F 93 20 137/90 96 Intake and Output 07/29/23 07/29/23 07/29/23 06:59 14:59 22:59 Other: Weight 72.575 kg PHYSICAL EXAMINATION: Patient is lying in the bed comfortably, no acute distress, awake alert and oriented but confused.. HEENT: Normocephalic. Neck is supple. Pupils reactive. Nostrils clear. Oral cavity is moist. Neck reveals no JVD, carotid bruits, or thyromegaly. CHEST EXAMINATION: Trachea is central. Symmetrical expansion. Lung galvan clear to auscultation and percussion. Prolonged expiration. No wheezing or rhonchi. CARDIAC: Normal S1, S2 with no gallops. No murmurs ABDOMEN: Soft. Bowel sounds present. Nontender. No organomegaly. No abdominal bruits. Extremities: reveal no edema. No clubbing or cyanosis Neurologically awake, alert, oriented x2-3 patient does have mild residual right-sided weakness. Skin: No rash or skin lesions. Psychiatric: Coperative. Nonsuicidal, Musculoskeletal: No joint swelling or deformity. Normal range of motion. Results CBC & Chem 7: 07/29/23 13:24 07/29/23 13:24 Labs: Abnormal Lab Results - Last 24 Hours (Table) 07/29/23 07/29/23 Range/Units 13:24 13:24 RDW 18.0 H (11.5-15.5) % Carbon Dioxide 19 L (22-30) mmol/L BUN 5 L (7-17) mg/dL AST 98 H (14-36) U/L ALT 51 H (4-34) U/L Alkaline Phosphatase 169 H (38-126) U/L Serum Alcohol 329 H* mg/dL Thrombosis Risk Factor Assmnt - DVT/VTE Prophylaxis DVT/VTE Prophylaxis: Pharmacologic Prophylaxis ordered Assessment and Plan Assessment: Acute alcohol intoxication Generalized weakness Hypomagnesemia COPD not in exacerbation Cough possible acute bronchitis History of CVA with right-sided weakness/speech issues History of [place] status postcardiac catheterization Seizure disorder Chronic back pain Anxiety/depression Currently everyday smoker Heavy alcohol abuse Marijuana use DVT prophylaxis with heparin subcu Plan: Patient will be continued on gentle IV hydration and continued telemetry monitoring. Continue with DuoNebs and Symbicort and symptomatic management for cough. Monitor for alcohol withdrawal symptoms. Continue with home medications and follow-up closely. GI prophylaxis with Pepcid 20 twice daily. Patient was also started on Librium for withdrawal symptoms. Time with Patient: Greater than 30
[2023-07-30] MEDS: TICAGRELOR 90 MG TAB PO SCH ×3 (01:29→19:47)
[2023-07-30] MEDS: LORazepam 1 MG TAB PO PRN (01:29)
[2023-07-30] MEDS: MAGNESIUM SULFATE-D5W PMX 1 GM in DEXTROSE/WATER 1 100ML.BAG IVPB SCH ×2 (02:02→03:30)
[2023-07-30] MEDS: HYDROcodone/APAP 5-325MG 1 EACH TAB PO PRN ×3 (02:08→23:20)
[2023-07-30] MEDS: NICOTINE 21MG/24HR PATCH TRANSDERM SCH ×2 (03:30→08:30)
[2023-07-30] MEDS: ALBUTEROL NEBULIZED 2.5 MG/3 ML INHALATION PRN ×3 (04:08→21:26)
[2023-07-30] MEDS: SYMBICORT 160-4.5 MCG INHALER INHALATION SCH ×2 (07:39→21:26)
[2023-07-30] MEDS: THIAMINE 100 MG TAB PO SCH (08:25)
[2023-07-30] MEDS: ISOSORBIDE MONONITRATE ER 30 MG TAB.ER.24H PO SCH (08:25)
[2023-07-30] MEDS: ASPIRIN 81 MG PO SCH (08:25)
[2023-07-30] MEDS: METOPROLOL SUCCINATE (ER) 50 MG TAB.ER.24H PO SCH (08:26)
[2023-07-30] MEDS: FAMOTIDINE 20 MG TAB PO SCH ×2 (08:26→19:47)
[2023-07-30] MEDS: HEPARIN SODIUM,PORCINE 5,000 UNIT/ML 1 ML VIAL SQ SCH ×3 (08:26→23:20)
[2023-07-30] MEDS ORDERED: THIAMINE 100 MG TAB PO SCH (09:00)
[2023-07-30] MEDS ORDERED: FLUTICASONE 50MCG/SPRAY NASAL 16GM EA NOSTRIL PRN (09:00)
[2023-07-30 09:29] LABS: Anisocytosis Slight; Basophils % (A) 1 %; Eosinophils # (A) 0.1 k/uL (0-0.7); Eosinophils % (A) 1 %; HCT 35.2 % (34.0-46.0); HGB 11.1 gm/dL (11.4-16.0); Hypochromasia Slight; Lymphocytes # (A) 0.8 k/uL (1.0-4.8); Lymphocytes % (A) 17 %; MCH 29.8 pg (25.0-35.0); MCHC 31.5 g/dL (31.0-37.0); MCV 94.6 fL (80.0-100.0); Mean Platelet Volume 7.7; Monocytes # (A) 0.3 k/uL (0-1.0); Monocytes % (A) 5 %; Neutrophils # (A) 3.6 k/uL (1.3-7.7); Neutrophils % (A) 75 %; Platelet Count 106 k/uL (150-450); RBC 3.72 m/uL (3.80-5.40); RDW 17.6 % (11.5-15.5); WBC 4.8 k/uL (3.8-10.6)
[2023-07-30 09:43] LABS: ALT 45 U/L (4-34); AST 83 U/L (14-36); African American GFR (CKD) >90 (>60 ml/min/1.73 sqM); Albumin 3.8 g/dL (3.5-5.0); Albumin/Globulin Ratio 1.4; Alkaline Phosphatase 156 U/L (38-126); Anion Gap 9 mmol/L; Blood Urea Nitrogen 9 mg/dL (7-17); Carbon Dioxide 24 mmol/L (22-30); Chloride 97 mmol/L (98-107); Globulin 2.7 g/dL; Glucose 112 mg/dL (74-99); Non-African American GFR(CKD) >90 (>60 ml/min/1.73 sqM); Potassium 3.9 mmol/L (3.5-5.1); Sodium 130 mmol/L (137-145); Total Bilirubin 1.2 mg/dL (0.2-1.3); Total Protein 6.5 g/dL (6.3-8.2)
[2023-07-30] MEDS: chlordiazePOXIDE 25 MG CAP PO SCH ×3 (14:10→19:47)
[2023-07-30] MEDS ORDERED: POTASSIUM CHLORIDE ER 20 MEQ TAB.ER PO STA (15:33)
[2023-07-30] MEDS ORDERED: ONDANSETRON 4 MG/2 ML VIAL IVP STA (17:06)
[2023-07-30] MEDS ORDERED: ATORVASTATIN 20 MG TAB PO SCH (21:00)
--- NOTE | 2023-07-30 23:28 | PN ---
PROGRESS NOTE DATE OF SERVICE: 07/30/2023 SUBJECTIVE: This 63-year-old woman was admitted with alcohol intoxication and withdrawal, has tremors. The patient is also complaining of right shoulder pain also. No chest pain, no palpitation. OBJECTIVE: VITAL SIGNS: Pulse is 103, blood pressure 141/86, respirations 18. CHEST: Clear to auscultation. CARDIOVASCULAR: S1, S2. ABDOMEN: Soft. EXTREMITIES: Left shoulder movements slightly painful. LABORATORY DATA: Reviewed. ASSESSMENT: 1. Acute alcohol intoxication. 2. Early delirium tremens. 3. Left shoulder pain. 4. Chronic obstructive pulmonary disease. 5. Multiple complex medical issues. RECOMMENDATIONS: Recommended to continue current management, continue symptomatic treatment, otherwise recommended to repeat labs and I would recommend x-ray of the shoulders. Guarded prognosis. Further recommendations to follow. MMODL / IJN: [id number] /
[2023-07-31] MEDS ORDERED: CALCIUM CARBONATE 500 MG CHEWABLE PO PRN (00:11)
[2023-07-31] MEDS: LORazepam 1 MG TAB PO PRN (00:23)
[2023-07-31] MEDS: SYMBICORT 160-4.5 MCG INHALER INHALATION SCH (07:26)
--- NOTE | 2023-07-31 08:59 | XR ---
EXAMINATION TYPE: XR shoulder limited LT DATE OF EXAM: 07/31/2023 COMPARISON: 01/28/2023 HISTORY: Pain TECHNIQUE: Shoulder examined in 2 projections. FINDINGS: The humeral head articulates with the glenoid. The acromio-clavicular junction is widened at 1.0 cm. There is slight depressed acromion in relation to the distal clavicle. Findings however appear stable over the interval. Chronic separation may be p resent. No acute fractures or dislocations are evident. A follow up study can be performed 7-10 days from acute trauma for continued pain. MRI can be perfor med if soft tissue evaluation would be of benefit. IMPRESSION: 1. No acute osseous shoulder abnormality. 2. Chronic or old acromioclavicular joint separation.
[2023-07-31] MEDS: NICOTINE 21MG/24HR PATCH TRANSDERM SCH (09:03)
[2023-07-31] MEDS: chlordiazePOXIDE 25 MG CAP PO SCH (09:03)
[2023-07-31] MEDS: ASPIRIN 81 MG PO SCH (09:03)
[2023-07-31] MEDS: TICAGRELOR 90 MG TAB PO SCH (09:04)
[2023-07-31] MEDS: THIAMINE 100 MG TAB PO SCH (09:04)
[2023-07-31] MEDS: HEPARIN SODIUM,PORCINE 5,000 UNIT/ML 1 ML VIAL SQ SCH (09:04)
[2023-07-31] MEDS: ISOSORBIDE MONONITRATE ER 30 MG TAB.ER.24H PO SCH (09:04)
[2023-07-31] MEDS: METOPROLOL SUCCINATE (ER) 50 MG TAB.ER.24H PO SCH (09:04)
[2023-07-31] MEDS: FAMOTIDINE 20 MG TAB PO SCH (09:04)
[2023-07-31] MEDS: HYDROcodone/APAP 5-325MG 1 EACH TAB PO PRN (09:09)
[2023-07-31] MEDS: BENZOCAINE/MENTHOL LOZENG 1 EACH LOZENGE MUCOUS MEM PRN (09:10)
[2023-07-31 09:18] VITALS: BP 123/81; PULSE 80; RESP 18; TEMP 98.9
[2023-07-31 10:04] LABS: Anisocytosis Slight; Basophils % (A) 0 %; Eosinophils # (A) 0.1 k/uL (0-0.7); Eosinophils % (A) 2 %; HGB 11.3 gm/dL (11.4-16.0); Hypochromasia Slight; Lymphocytes # (A) 0.6 k/uL (1.0-4.8); Lymphocytes % (A) 9 %; MCH 30.3 pg (25.0-35.0); MCHC 32.2 g/dL (31.0-37.0); Mean Platelet Volume 10.2; Monocytes # (A) 0.2 k/uL (0-1.0); Monocytes % (A) 3 %; Neutrophils # (A) 5.4 k/uL (1.3-7.7); Neutrophils % (A) 85 %; RBC 3.72 m/uL (3.80-5.40); RDW 17.5 % (11.5-15.5); WBC 6.4 k/uL (3.8-10.6)
[2023-07-31 10:07] LABS: ALT 36 U/L (4-34); AST 76 U/L (14-36); African American GFR (CKD) >90 (>60 ml/min/1.73 sqM); Albumin 3.9 g/dL (3.5-5.0); Alkaline Phosphatase 145 U/L (38-126); Anion Gap 7 mmol/L; Blood Urea Nitrogen 3 mg/dL (7-17); Calcium 9.5 mg/dL (8.4-10.2); Carbon Dioxide 26 mmol/L (22-30); Chloride 102 mmol/L (98-107); Glucose 120 mg/dL (74-99); Non-African American GFR(CKD) >90 (>60 ml/min/1.73 sqM); Potassium 3.5 mmol/L (3.5-5.1); Sodium 135 mmol/L (137-145); Total Bilirubin 0.9 mg/dL (0.2-1.3); Total Protein 6.6 g/dL (6.3-8.2)
[2023-07-31 11:00] LABS: Platelet Count 84 k/uL (150-450)
--- NOTE | 2023-08-01 15:20 | P.DS ---
Providers Date of admission: 07/30/23 13:31 Expected date of discharge: 07/31/23 Attending physician: Hellen Jackson Primary care physician: Miya Johnson [place] Hospital Course: Final diagnosis Acute alcohol intoxication with early delirium tremens History of coronary artery disease History of CVA/TIA Hypertension History of seizure disordera History of anxiety/depression Continued ongoing nicotine Left shoulder pain, negative for fracture Chronic obstructive pulmonary disease , not an exacerbation GI prophylaxis DVT plexus Full code Discharge disposition Patient is being discharged in a stable condition with guarded prognosis to home. Patient will follow-up with Dr. Sherman Cardoza in the outpatient setting upon discharge. Patient is to continue with Librium taper on discharge. Total time taken is greater than 35 minutes. Hospital course This is a 63-year-old female who was recently admitted with acute alcohol intoxication and withdrawal with concerns for tremens. Patient maintained on CIWA protocol and also reporting some left shoulder pain. Obtained a shoulder x-ray which was negative for fracture and patient has been instructed again to follow-up with orthopedics outpatient as she has failed to do so since previous admissions. Patient reports to feeling better not requiring IV Ativan and will go home on a Librium taper. Currently no reports of chest pain, shortness of breath, or palpitations. Patient is afebrile. No reports of nausea or vomiting and patient is tolerating diet. Patient will be discharged home today.guarded prognosis and high risk for readmissions as patient continues to drink alcohol and is noncompliant with medications and follow-up. Physical exam: Gen: This is a 63-year-old female who is awake, alert and oriented 3, well- developed, well-nourished, elderly-appearing HEENT: Head is atraumatic, normocephalic. Pupils equal, round. Sclerae is anicteric. NECK: Supple. No JVD. No lymphadenopathy. No thyromegaly. LUNGS: Clear to auscultation. No wheezes or rhonchi. No intercostal retractions. HEART: Regular rate and rhythm. No murmur. ABDOMEN: Soft. obese. Bowel sounds are present. No masses. No tenderness. EXTREMITIES: No pedal edema. No calf tenderness. NEUROLOGICAL: Patient is awake, alert and oriented x3. Cranial nerves 2 through 12 are grossly intact. Please refer to medication reconciliation sheet for a list of medications. The impression and plan of care has been dictated by Tonya Adan, Nurse Practitioner as directed. Dr. Sony MD I have performed a history and examination and MDM of this patient, discussed the same with the dictator, and agree with the dictator's assessment and plan as written ,documented as a scribe. Based on total visit time, I have performed more than 50% of the visit. Patient Condition at Discharge: Fair Plan - Discharge Summary Discharge Rx Participant: No New Discharge Prescriptions: New chlordiazePOXIDE HCl [Librium] 25 mg PO TID #6 cap Continue Aspirin EC [Ecotrin Low Dose] 81 mg PO DAILY Ticagrelor [Brilinta] 90 mg PO BID Folic Acid-Vit B Complex-Vit C [Nephrocaps] 1 cap PO DAILY Lidocaine 5% Patch [Lidoderm 5% Patch] 1 patch TOPICAL DAILY PRN #30 patch PRN Reason: Pain Budesonide/Formoterol Fumarate [Symbicort 160-4.5 Mcg Inhaler] 2 puff INHALATION RT-BID Ibuprofen [Motrin] 800 mg PO Q6H PRN PRN Reason: Pain Metoprolol Succinate (ER) [Toprol XL] 50 mg PO DAILY Fluticasone Nasal [place] [Flonase Nasal [place]] 1 spr EA NOSTRIL DAILY PRN PRN Reason: Allergy Symptoms Simvastatin [Zocor] 40 mg PO HS Isosorbide Mononitrate ER [Imdur] 30 mg PO DAILY Albuterol Inhaler [Ventolin Hfa Inhaler] 2 puff INHALATION RT-QID PRN 30 Days #1 each PRN Reason: Shortness Of Breath Or Wheezing Nitroglycerin Sl Tabs [Nitrostat] 0.4 mg SL Q5M PRN PRN Reason: Chest Pain Ergocalciferol (Vitamin D2) [Drisdol (50,000 Iu)] 1,250 mcg PO Q7D Albuterol Nebulized [Ventolin Nebulized] 2.5 mg INHALATION RT-QID PRN PRN Reason: Shortness Of Breath Thiamine [Vitamin B-1] 100 mg PO DAILY 30 Days #30 tablet Ketorolac [Toradol] 10 mg PO Q6HR PRN #15 tab PRN Reason: Pain Ondansetron Odt [Zofran ODT] 4 mg PO Q8HR PRN #15 tab PRN Reason: Nausea And Vomiting Nicotine 21Mg/24Hr Patch [Habitrol] 1 patch TRANSDERM DAILY PRN PRN Reason: Nicotine Cravings Discontinued Vancomycin HCl [Vancocin HCl] 250 mg PO Q6H Discharge Medication List Aspirin EC [Ecotrin Low Dose] 81 mg PO DAILY 02/11/19 [History] Metoprolol Succinate (ER) [Toprol XL] 50 mg PO DAILY 06/13/21 [History] Fluticasone Nasal [place] [Flonase Nasal [place]] 1 spr EA NOSTRIL DAILY PRN 02/14/22 [History] Simvastatin [Zocor] 40 mg PO HS 07/03/22 [History] Isosorbide Mononitrate ER [Imdur] 30 mg PO DAILY 11/10/22 [History] Ticagrelor [Brilinta] 90 mg PO BID 01/14/23 [History] Albuterol Inhaler [Ventolin Hfa Inhaler] 2 puff INHALATION RT-QID PRN 30 Days #1 each 01/22/23 [Rx] Nitroglycerin Sl Tabs [Nitrostat] 0.4 mg SL Q5M PRN 02/06/23 [History] Albuterol Nebulized [Ventolin Nebulized] 2.5 mg INHALATION RT-QID PRN 05/17/23 [History] Ergocalciferol (Vitamin D2) [Drisdol (50,000 Iu)] 1,250 mcg PO Q7D 05/17/23 [History] Thiamine [Vitamin B-1] 100 mg PO DAILY 30 Days #30 tablet 05/20/23 [Rx] Folic Acid-Vit B Complex-Vit C [Nephrocaps] 1 cap PO DAILY 05/23/23 [History] Ketorolac [Toradol] 10 mg PO Q6HR PRN #15 tab 06/19/23 [Rx] Lidocaine 5% Patch [Lidoderm 5% Patch] 1 patch TOPICAL DAILY PRN #30 patch 06/19/23 [Rx] Ondansetron Odt [Zofran ODT] 4 mg PO Q8HR PRN #15 tab 06/19/23 [Rx] Budesonide/Formoterol Fumarate [Symbicort 160-4.5 Mcg Inhaler] 2 puff INHALATION RT-BID 07/29/23 [History] Ibuprofen [Motrin] 800 mg PO Q6H PRN 07/29/23 [History] Nicotine 21Mg/24Hr Patch [Habitrol] 1 patch TRANSDERM DAILY PRN 07/29/23 [History] chlordiazePOXIDE HCl [Librium] 25 mg PO TID #6 cap 07/31/23 [Rx] Follow up Appointment(s)/Referral(s): Miya Johnson MD [Primary Care Provider] - 08/08/23 2:30 pm [facility] Visiting Nurse, [NON-STAFF] - Patient Instructions/Handouts: Cirrhosis (DC), Alcohol Withdrawal (DC) Discharge/Stand Alone Forms: AA Meetings [facility], Who Do I Call?, Community Resources, Outpatient Counseling, In Substance Abuse Facilities, Personal Tassel Snipper Discharge Disposition: HOME SELF-CARE
== END 2023-07-31 14:20 | disposition home or self-care (01) ==
LOC: EC 12:22 → 6NMEDSUR 16:17 → 3SCARD 07-30 01:21 → INTOOBSV 07-30 13:31 → OBSVTOIN 07-30 13:31 → UNDODISIN 07-31 14:20
PROVIDERS: ADMIT Internal Medicine; ATTEND Internal Medicine
DX: F10.121 Alcohol abuse with intoxication delirium (principal); I69.351 Hemiplegia and hemiparesis following cerebral infarction affecting right dominant side; Y90.8 Blood alcohol level of 240 mg/100 ml or more; M25.512 Pain in left shoulder; J44.9 Chronic obstructive pulmonary disease, unspecified; G89.29 Other chronic pain; M54.9 Dorsalgia, unspecified; E83.42 Hypomagnesemia; I25.10 Atherosclerotic heart disease of native coronary artery without angina pectoris; I10 Essential (primary) hypertension; F41.9 Anxiety disorder, unspecified; F32.A Depression, unspecified; R53.1 Weakness; G40.909 Epilepsy, unspecified, not intractable, without status epilepticus; I25.2 Old myocardial infarction; F12.90 Cannabis use, unspecified, uncomplicated; F17.200 Nicotine dependence, unspecified, uncomplicated; E66.9 Obesity, unspecified; Z68.29 Body mass index [BMI] 29.0-29.9, adult; Z79.82 Long term (current) use of aspirin; Z79.899 Other long term (current) drug therapy; Z79.51 Long term (current) use of inhaled steroids; Z88.5 Allergy status to narcotic agent; Z91.040 Latex allergy status
CPT/HCPCS: 96376 ×2; 96361 ×3; 96365; 96366; 96372 ×2; 96375; 99285; 36415; 94640 ×4; 93005; 97162; 97166; 83880; 80053 ×3; 83735 ×2; 84484; 85025 ×3; 85610; 85730; 87636; 73020; 71046; G0378 ×3; G0480; S4990 ×2; J2060; J1644 ×2; J2405 ×2; J3475; 80320; 96374

== ENCOUNTER 2023-08-01 21:10 | Emergency (ER) | payer OTHER ==
[2023-08-01 21:23] VITALS: BP 108/79; PULSE 98; RESP 18; TEMP 97.9
[2023-08-01] MEDS ORDERED: ONDANSETRON 4 MG/2 ML VIAL IVP STA (21:43)
[2023-08-01] MEDS ORDERED: diphenhydrAMINE 50 MG/ML 1 ML VIAL IVP STA (21:43)
[2023-08-01] MEDS ORDERED: KETOROLAC 15 MG/ML 1 ML VIAL IVP STA (21:43)
--- NOTE | 2023-08-02 00:11 | ED ---
Recheck HPI - General Chief Complaint: Recheck/Abnormal Lab/Rx Stated Complaint: headache Time Seen by Provider: 08/01/23 21:35 Source: patient Mode of arrival: EMS Limitations: no limitations - History of Present Illness Initial Comments: 63-year-old female presenting with chief complaint of headache. Patient was just discharged yesterday after being admitted for alcohol intoxication. 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 No fall or injury. No neck stiffness, fever, chills, nausea, vomi ting, vision or hearing changes, numbness, tingling, weakness. Patient does state that she has been drinking today. - Related Data Home Medications Medication Instructions Recorded Confirmed Aspirin EC [Ecotrin Low Dose] 81 mg PO DAILY 02/11/19 07/29/23 Metoprolol Succinate (ER) [Toprol 50 mg PO DAILY 06/13/21 07/29/23 XL] Fluticasone Nasal [place] [Flonase 1 spr EA NOSTRIL DAILY PRN 02/14/22 07/29/23 Nasal [place]] Simvastatin [Zocor] 40 mg PO HS 07/03/22 07/29/23 Isosorbide Mononitrate ER [Imdur] 30 mg PO DAILY 11/10/22 07/29/23 Ticagrelor [Brilinta] 90 mg PO BID 01/14/23 07/29/23 Nitroglycerin Sl Tabs [Nitrostat] 0.4 mg SL Q5M PRN 02/06/23 07/29/23 Albuterol Nebulized [Ventolin 2.5 mg INHALATION RT-QID PRN 05/17/23 07/29/23 Nebulized] Ergocalciferol (Vitamin D2) 1,250 mcg PO Q7D 05/17/23 07/29/23 [Drisdol (50,000 Iu)] Folic Acid-Vit B Complex-Vit C 1 cap PO DAILY 05/23/23 07/29/23 [Nephrocaps] Budesonide/Formoterol Fumarate 2 puff INHALATION RT-BID 07/29/23 07/29/23 [Symbicort 160-4.5 Mcg Inhaler] Ibuprofen [Motrin] 800 mg PO Q6H PRN 07/29/23 07/29/23 Nicotine 21Mg/24Hr Patch [Habitrol] 1 patch TRANSDERM DAILY PRN 07/29/23 07/29/23 Previous Rx's Medication Instructions Recorded Albuterol Inhaler [Ventolin Hfa 2 puff INHALATION RT-QID PRN 30 01/22/23 Inhaler] Days #1 each Thiamine [Vitamin B-1] 100 mg PO DAILY 30 Days #30 tablet 05/20/23 Ketorolac [Toradol] 10 mg PO Q6HR PRN #15 tab 06/19/23 Lidocaine 5% Patch [Lidoderm 5% 1 patch TOPICAL DAILY PRN #30 patch 06/19/23 Patch] Ondansetron Odt [Zofran ODT] 4 mg PO Q8HR PRN #15 tab 06/19/23 chlordiazePOXIDE HCl [Librium] 25 mg PO TID #6 cap 07/31/23 Allergies Allergy/AdvReac Type Severity Reaction Status Date / Time [place] And Derivatives Allergy Rash/Hives Verified 07/29/23 17:33 [[place]] latex Allergy Rash/Hives Verified 07/29/23 17:33 tomato Allergy Diarrhea Verified 07/29/23 17:33 Influenza Virus Vaccines AdvReac Nausea & Verified 07/29/23 17:33 Vomiting morphine AdvReac Nausea & Verified 07/29/23 17:33 Vomiting Review of Systems ROS Statement: Those systems with pertinent positive or pertinent negative responses have been documented in the HPI. ROS Other: All systems not noted in ROS Statement are negative. Past Medical History Past Medical History: Asthma, Coronary Artery Disease (CAD), COPD, CVA/TIA, Eye Disorder, Hypertension, Liver Disease, Myocardial Infarction ([place]), Seizure Disorder, Vascular Disorder Additional Past Medical History / Comment(s): Pt recently admitted to [facility] for diarrhea, ETOH abuse. 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 soon Last Myocardial Infarction Date:: aug 2018 History of Any Multi-Drug Resistant Organisms: None Reported Past Surgical History: Cholecystectomy, Heart Catheterization, Orthopedic Surgery Additional Past Surgical History / Comment(s): L caratid stent, bilateral knee surgeries for tendon repair, bartholian cyst removed bilateral wrists, cataracts Past Anesthesia/Blood Transfusion Reactions: Motion Sickness Additional Past Anesthesia/Blood Transfusion Reaction / Comment(s): Pt has received blood without reaction. Past Psychological History: Anxiety, Depression Smoking Status: Current every day smoker Past Alcohol Use History: Abuse, Daily, Heavy Past Drug Use History: Marijuana - Past Family History Mother Family Medical History: Cancer, Congestive Heart Failure (CHF), Coronary Artery Disease (CAD), Hyperlipidemia Additional Family Medical History / Comment(s): Mother at age 85 from lung cancer. Father Family Medical History: Cancer, COPD Additional Family Medical History / Comment(s): Father at age 63 from lung cancer. Brother(s) Additional Family Medical History / Comment(s): Patient has a total of 7 siblings. 5 are alive without any major medical problems she is aware of. 2 siblings have one from alcohol abuse and 1. Coronary artery disease. Daughter(s) Additional Family Medical History / Comment(s): Patient has one daughter with no major medical problems. General Exam Limitations: no limitations General appearance: alert, in no apparent distress Head exam: Present: atraumatic, normocephalic, normal inspection Eye exam: Present: normal appearance, PERRL, EOMI. Absent: scleral icterus, conjunctival injection, periorbital swelling Neck exam: Present: normal inspection, full ROM Respiratory exam: Present: normal lung sounds bilaterally. Absent: respiratory distress, wheezes, rales, rhonchi, stridor Cardiovascular Exam: Present: regular rate, normal rhythm, normal heart sounds. Absent: systolic murmur, diastolic murmur, rubs, gallop, clicks Neurological exam: Present: alert, oriented X3 Expanded Eye Response: (4) open spontaneously Motor Response: (6) obeys commands Verbal Response: (5) oriented [place] Total: 15 Psychiatric exam: Present: normal affect, normal mood Skin exam: Present: warm, dry, intact, normal color. Absent: rash Course Vital Signs 08/01/23 21:17 Temperature 97.9 F Pulse Rate 98 Respiratory 18 Rate Blood Pressure 108/79 O2 Sat by Pulse 95 Oximetry Medical Decision Making - Medical Decision Making Was pt. sent in by a medical professional or institution (, PA, [employer], urgent care, hospital, or usp...) When possible be specific @ -No Did you speak to anyone other than the patient for history (EMS, parent, family, police, friend...)? What history was obtained from this source @ -No Did you review nursing and triage notes (agree or disagree)? Why? @ -I reviewed and agree with nursing and triage notes Were old charts reviewed (outside hosp., previous admission, EMS record, old EKG, old radiological studies, urgent care reports/EKG's, usp records)? Report findings @ -No old charts were reviewed Differential Diagnosis (chest pain, altered mental status, abdominal pain women, abdominal pain men, vaginal bleeding, weakness, fever, dyspnea, syncope, headache, dizziness, GI bleed, back pain, seizure, CVA, palpatations, mental health, musculoskeletal)? @ -MDM Differential Headache: Migraine, tension, cluster, carbon monoxide, central venous thrombosis, pension karma temporal arteritis, acute closure glaucoma, intercranial hemorrhage, mastoiditis, sinusitis, head injury this is not meant to be an all-inclusive list. EKG interpreted by me (3pts min.). @ -As above X-rays interpreted by me (1pt min.). @ -None done CT interpreted by me (1pt min.). @ -None done U/S interpreted by me (1pt. min.). @ -None done What testing was considered but not performed or refused? (CT, X-rays, U/S, labs)? Why? @ -None What meds were considered but not given or refused? Why? @ -None Did you discuss the management of the patient with other professionals (professionals i.e. , PA, [employer], lab, RT, psych nurse, social media sr strategy manager, ore storage drier, teacher, division officer weapons department, test case developer)? Give summary @ -No Was smoking cessation discussed for >3mins.? @ -No Was critical care preformed (if so, how long)? @ -No Were there social determinants of health that impacted care today? How? (Homelessness, low income, unemployed, alcoholism, drug addiction, transportation, low edu. Level, literacy, decrease access to med. care, fdc, rehab)? @ -No Was there de-escalation of care discussed even if they declined (Discuss DNR or withdrawal of care, Hospice)? DNR status @ -No What co-morbidities impacted this encounter? (DM, HTN, Smoking, COPD, CAD, Cancer, CVA, ARF, Chemo, Hep., AIDS, mental health diagnosis, sleep apnea, morbid obesity)? @ -None Was patient admitted / discharged? Hospital course, mention meds given and route, prescriptions, significant lab abnormalities, going to OR and other pertinent info. @ -Is a 63-year-old female presenting with chief complaint of headache. Patient claims that this is due to a cyst on her brain. However the patient has been drinking today. She was just discharged yesterday after being admitted for alcohol intoxication. She had a recent CT which showed no changes to this cyst. She is given a migraine cocktail. Breath alcohol was 0.112, patient is observed for one hour. She is clinically sober and would like to be discharged home. Follow-up with PCP. Report back to ER with any new or worsening symptoms. Discussed return parameters and answered all questions. Patient conveyed verbal understanding and agreed to the plan. I discussed this case in detail with my attending Dr. Robison Undiagnosed new problem with uncertain prognosis? @ -No Drug Therapy requiring intensive monitoring for toxicity (Heparin, Nitro, Insulin, Cardizem)? @ -No Were any procedures done? @ -No Diagnosis/symptom? @ -Headache Acute, or Chronic, or Acute on Chronic? @ -Acute Uncomplicated (without systemic symptoms) or Complicated (systemic symptoms)? @ -uncomplicated Side effects of treatment? @ -No Exacerbation, Progression, or Severe Exacerbation? @ -No Poses a threat to life or bodily function? How? (Chest pain, [place], [place], pneumonia, PE, COPD, DKA, ARF, appy, cholecystitis, CVA, Diverticulitis, Homicidal, Suicidal, threat to staff... and all critical care pts) @ -No Disposition Clinical Impression: Headache, Alcohol intoxication Disposition: HOME SELF-CARE Condition: Fair Instructions (If sedation given, give patient instructions): Acute Headache (ED) Additional Instructions: Follow-up with PCP. Report back to ER with any new or worsening symptoms. Is patient prescribed a controlled substance at d/c from ED?: No Referrals: Miya Johnson MD [Primary Care Provider] - 1-2 days
== END 2023-08-02 01:22 | disposition home or self-care (01) ==
LOC: EC 21:10
DX: F10.129 Alcohol abuse with intoxication, unspecified (principal); R51.9 Headache, unspecified; I10 Essential (primary) hypertension; I25.10 Atherosclerotic heart disease of native coronary artery without angina pectoris; I25.2 Old myocardial infarction; J44.9 Chronic obstructive pulmonary disease, unspecified; F17.200 Nicotine dependence, unspecified, uncomplicated; F12.90 Cannabis use, unspecified, uncomplicated; Z79.82 Long term (current) use of aspirin; Z79.51 Long term (current) use of inhaled steroids; Z79.02 Long term (current) use of antithrombotics/antiplatelets; Z79.899 Other long term (current) drug therapy; Z88.5 Allergy status to narcotic agent; Z88.7 Allergy status to serum and vaccine; Z91.040 Latex allergy status; Z91.018 Allergy to other foods; Z91.09 Other allergy status, other than to drugs and biological substances; Z90.49 Acquired absence of other specified parts of digestive tract; Z86.73 Personal history of transient ischemic attack (TIA), and cerebral infarction without residual deficits
CPT/HCPCS: 82075; 99284; 96374; 96375 ×2; J1200; J2405; J1885

== ENCOUNTER 2023-08-27 17:17 | Emergency (ER) | payer OTHER ==
[2023-08-27] MEDS ORDERED: HYDROmorphone 0.5 MG/0.5 ML SYRINGE IVP STA (17:36)
[2023-08-27] MEDS ORDERED: KETOROLAC 15 MG/ML 1 ML VIAL IVP STA (17:37)
[2023-08-27] MEDS ORDERED: SODIUM CHLORIDE 0.9% 1,000 ML IV STA (17:37)
[2023-08-27 17:44] VITALS: RESP 18
--- NOTE | 2023-08-27 18:08 | ED ---
Fall HPI - General Chief Complaint: Fall Stated Complaint: ETOH, Fall Time Seen by Provider: 08/27/23 17:36 Source: patient, RN notes reviewed, old records reviewed Mode of arrival: ambulatory Limitations: no limitations - History of Present Illness Initial Comments: This is a 63-year-old female to the emergency department for evaluation of fall. Patient pending recurrent chronic complaint for this patient. Patient does admit alcohol intoxication today complaining of back pain with history of chronic back pain. MD Complaint: fall -: hour(s) Fall From: standing When Fall Occurred: 1 hour [employer] Fall Witnessed: yes, by family Place Fall Occurred: home Loss of Consciousness: none Prolonged Down Time?: no Symptoms Prior to Fall: none Location: back, pelvis Severity: moderate Severity scale (1-10): 3 Quality: sharp Context: tripped/slipped Associated Symptoms: denies - Related Data Home Medications Medication Instructions Recorded Confirmed Aspirin EC [Ecotrin Low Dose] 81 mg PO DAILY 02/11/19 08/27/23 Metoprolol Succinate (ER) [Toprol 50 mg PO DAILY 06/13/21 08/27/23 XL] Fluticasone Nasal [place] [Flonase 1 spr EA NOSTRIL DAILY PRN 02/14/22 08/27/23 Nasal [place]] Simvastatin [Zocor] 40 mg PO HS 07/03/22 08/27/23 Isosorbide Mononitrate ER [Imdur] 30 mg PO DAILY 11/10/22 08/27/23 Ticagrelor [Brilinta] 90 mg PO BID 01/14/23 08/27/23 Nitroglycerin Sl Tabs [Nitrostat] 0.4 mg SL Q5M PRN 02/06/23 08/27/23 Albuterol Nebulized [Ventolin 2.5 mg INHALATION RT-QID PRN 05/17/23 08/27/23 Nebulized] Folic Acid-Vit B Complex-Vit C 1 cap PO DAILY 05/23/23 08/27/23 [Nephrocaps] Budesonide/Formoterol Fumarate 2 puff INHALATION RT-BID 07/29/23 08/27/23 [Symbicort 160-4.5 Mcg Inhaler] carvediloL [Coreg] 6.25 mg PO DIRECTED 08/27/23 08/27/23 Previous Rx's Medication Instructions Recorded Albuterol Inhaler [Ventolin Hfa 2 puff INHALATION RT-QID PRN 30 01/22/23 Inhaler] Days #1 each Ondansetron Odt [Zofran ODT] 4 mg PO Q8HR PRN #15 tab 06/19/23 Allergies Allergy/AdvReac Type Severity Reaction Status Date / Time Boyce And Derivatives Allergy Rash/Hives Verified 08/27/23 17:54 [Boyce] latex Allergy Rash/Hives Verified 08/27/23 17:54 tomato Allergy Diarrhea Verified 08/27/23 17:54 Influenza Virus Vaccines AdvReac Nausea & Verified 08/27/23 17:54 Vomiting morphine AdvReac Nausea & Verified 08/27/23 17:54 Vomiting Review of Systems ROS Statement: Those systems with pertinent positive or pertinent negative responses have been documented in the HPI. ROS Other: All systems not noted in ROS Statement are negative. Past Medical History Past Medical History: Asthma, Coronary Artery Disease (CAD), COPD, CVA/TIA, Eye Disorder, Hypertension, Liver Disease, Myocardial Infarction (ND), Seizure Disorder, Vascular Disorder Additional Past Medical History / Comment(s): Pt recently admitted to [facility] for diarrhea, ETOH abuse. 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 soon Last Myocardial Infarction Date:: aug 2018 History of Any Multi-Drug Resistant Organisms: None Reported Past Surgical History: Cholecystectomy, Heart Catheterization, Orthopedic Surgery Additional Past Surgical History / Comment(s): L caratid stent, bilateral knee surgeries for tendon repair, bartholian cyst removed bilateral wrists, cataracts Past Anesthesia/Blood Transfusion Reactions: Motion Sickness Additional Past Anesthesia/Blood Transfusion Reaction / Comment(s): Pt has received blood without reaction. Past Psychological History: Anxiety, Depression Smoking Status: Current every day smoker Past Alcohol Use History: Abuse, Daily, Heavy Past Drug Use History: Marijuana - Past Family History Mother Family Medical History: Cancer, Congestive Heart Failure (CHF), Coronary Artery Disease (CAD), Hyperlipidemia Additional Family Medical History / Comment(s): Mother at age 85 from lung cancer. Father Family Medical History: Cancer, COPD Additional Family Medical History / Comment(s): Father at age 63 from lung cancer. Brother(s) Additional Family Medical History / Comment(s): Patient has a total of 7 siblings. 5 are alive without any major medical problems she is aware of. 2 siblings have one from alcohol abuse and 1. Coronary artery disease. Daughter(s) Additional Family Medical History / Comment(s): Patient has one daughter with no major medical problems. General Exam Limitations: no limitations General appearance: alert, in no apparent distress Head exam: Present: atraumatic, normocephalic, normal inspection Eye exam: Present: normal appearance, PERRL, EOMI. Absent: scleral icterus, conjunctival injection, periorbital swelling ENT exam: Present: normal exam, mucous membranes moist Neck exam: Present: normal inspection. Absent: tenderness, meningismus, lymphadenopathy Respiratory exam: Present: normal lung sounds bilaterally. Absent: respiratory distress, wheezes, rales, rhonchi, stridor Cardiovascular Exam: Present: regular rate, normal rhythm, normal heart sounds. Absent: systolic murmur, diastolic murmur, rubs, gallop, clicks GI/Abdominal exam: Present: soft, normal bowel sounds. Absent: distended, tenderness, guarding, rebound, rigid Extremities exam: Present: normal inspection, full ROM, normal capillary refill. Absent: tenderness, pedal edema, joint swelling, calf tenderness Back exam: Present: normal inspection Neurological exam: Present: alert, oriented X3, CN II-XII intact Psychiatric exam: Present: normal affect, normal mood Skin exam: Present: warm, dry, intact, normal color. Absent: rash Course Vital Signs 08/27/23 08/27/23 17:31 21:06 Temperature 97.6 F 97.7 F Pulse Rate 99 98 Respiratory 18 18 Rate Blood Pressure 115/71 95/62 O2 Sat by Pulse 96 96 Oximetry - Reevaluation(s) Reevaluation #1: 08/27/23 19:55 Medical record is reviewed Reevaluation #2: 08/27/23 19:55 Patient spends most of the time throughout ER stay sleeping Reevaluation #3: 08/27/23 19:56 Patient informed results and questions answered Reevaluation #4: 08/27/23 19:42 Was pt. sent in by a medical professional or institution ([facility]ESS[facility] Lloyd, [employer], urgent care, hospital, or custodial...) When possible be specific @ -no Did you speak to anyone other than the patient for history (EMS, parent, family, police, friend...)? What history was obtained from this source @ -no Did you review nursing and triage notes (agree or disagree)? Why? @ -agree Are old charts reviewed (outside hosp., previous admission, EMS record, old EKG, old radiological studies, urgent care reports/EKG's, custodial records)? Report findings @ -yes Differential Diagnosis (chest pain, altered mental status, abdominal pain women, abdominal pain men, vaginal bleeding, weakness, fever, dyspnea, syncope, headache, dizziness, GI bleed, back pain, seizure, CVA, palpatations, mental health, musculoskeletal)? @ -prior EKG interpreted by me (3pts min.). @ -no X-rays interpreted by me (1pt min.). @ -yes CT interpreted by me (1pt min.). @ -no U/S interpreted by me (1pt. min.). @ -no What testing was considered but not performed or refused? (CT, X-rays, U/S, labs)? Why? @ -none What meds were considered but not given or refused? Why? @ -none Did you discuss the management of the patient with other professionals (professionals i.e. [facility]ESS[facility] Lloyd, [employer], lab, RT, psych nurse, psychiatric social worker, bank vault custodian, teacher, commercial escrow officer, case management assistant)? Give summary @ -no Was smoking cessation discussed for >3mins.? @ -no Was critical care preformed (if so, how long)? @ -no Were there social determinants of health that impacted care today? How? (Homelessness, low income, unemployed, alcoholism, drug addiction, transportation, low edu. Level, literacy, decrease access to med. care, intermediate, rehab)? @ -none Was there de-escalation of care discussed even if they declined (Discuss DNR or withdrawal of care, Hospice)? DNR status @ -no What co-morbidities impacted this encounter? (DM, HTN, Smoking, COPD, CAD, Cancer, CVA, ARF, Chemo, Hep., AIDS, mental health diagnosis, sleep apnea, morbid obesity)? @ -none Was patient admitted / discharged? Hospital course, mention meds given and route, prescriptions, significant lab abnormalities, going to OR and other pertinent info. @ - 63 female to the emergency department for fall fall from standing. Patient has back pain with history of chronic back pain. No changes on x-ray patient can be discharged home Discharge Undiagnosed new problem with uncertain prognosis? @ -no Drug Therapy requiring intensive monitoring for toxicity (Heparin, Nitro, Insulin, Cardizem)? @ -no Were any procedures done? @ -no Diagnosis/symptom? @ -Fall, chronic back pain Acute, or Chronic, or Acute on Chronic? @ -Acute Uncomplicated (without systemic symptoms) or Complicated (systemic symptoms)? @ -Complicated Side effects of treatment? @ -no Exacerbation, Progression, or Severe Exacerbation? @ -exacerbation Poses a threat to life or bodily function? How? (Chest pain, [place], ND, pneumonia, PE, COPD, DKA, ARF, appy, cholecystitis, CVA, Diverticulitis, Homicidal, Suicidal, threat to staff... and all critical care pts) @ -no Medical Decision Making - Medical Decision Making 63 female to the emergency department for fall fall from standing. Patient has back pain with history of chronic back pain. No changes on x-ray patient can be discharged home - Radiology Data Radiology results: report reviewed (Chest and pelvis x-ray negative for traumatic injury), image reviewed Disposition Clinical Impression: Alcohol intoxication, Anxiety, Fall Disposition: HOME SELF-CARE Condition: Good Instructions (If sedation given, give patient instructions): Fall Prevention for Older Adults (ED) Is patient prescribed a controlled substance at d/c from ED?: No Referrals: Miya Johnson MD [Primary Care Provider] - 1-2 days Time of Disposition: 19:45
--- NOTE | 2023-08-27 18:27 | XR ---
EXAMINATION TYPE: XR pelvis AP view DATE OF EXAM: 08/27/2023 6:00 PM CLINICAL INDICATION:Female, 63 years old with history of fall; [facility] COMPARISON: 08/19/2023 TECHNIQUE: The pelvis was examined in a single projection. FINDINGS: There is no evidence of fracture or dislocation. There is no soft tissue abnormality. No a bnormal calcifications are present. The spine appears intact. IMPRESSION: No acute osseous pathology.
--- NOTE | 2023-08-27 18:28 | XR ---
EXAMINATION TYPE: XR chest 1V DATE OF EXAM: 08/27/2023 6:00 PM CLINICAL INDICATION:Female, 63 years old with history of fall; [facility] COMPARISON: Chest radiographs from 08/19/2023. TECHNIQUE: XR chest 1V Frontal view of the chest. FINDINGS: Lungs/Pleura: There is no evidence of pleural effusion, focal consolidation, or pneumothorax. Pulmonary vascularity: Unremarkable. Heart/mediastinum: Cardiomediastinal silhouette is unremarkable. Musculoskeletal: No acute osseous pathology. IMPRESSION: No acute cardiopulmonary disease/process.
[2023-08-27 21:09] VITALS: BP 95/62; PULSE 98; TEMP 97.7
== END 2023-08-27 21:37 | disposition home or self-care (01) ==
LOC: EC 17:17
DX: G89.29 Other chronic pain (principal); M54.9 Dorsalgia, unspecified; F10.129 Alcohol abuse with intoxication, unspecified; F41.9 Anxiety disorder, unspecified; I10 Essential (primary) hypertension; I25.10 Atherosclerotic heart disease of native coronary artery without angina pectoris; I25.2 Old myocardial infarction; J44.9 Chronic obstructive pulmonary disease, unspecified; F17.200 Nicotine dependence, unspecified, uncomplicated; F12.90 Cannabis use, unspecified, uncomplicated; Z79.82 Long term (current) use of aspirin; Z79.51 Long term (current) use of inhaled steroids; Z79.02 Long term (current) use of antithrombotics/antiplatelets; Z79.899 Other long term (current) drug therapy; Z88.5 Allergy status to narcotic agent; Z88.7 Allergy status to serum and vaccine; Z91.040 Latex allergy status; Z91.018 Allergy to other foods; Z86.73 Personal history of transient ischemic attack (TIA), and cerebral infarction without residual deficits; Z90.49 Acquired absence of other specified parts of digestive tract; W01.0XXA Fall on same level from slipping, tripping and stumbling without subsequent striking against object, initial encounter; Y92.009 Unspecified place in unspecified non-institutional (private) residence as the place of occurrence of the external cause
CPT/HCPCS: 71045; 72170; 99285

== ENCOUNTER 2023-11-17 15:58 | Observation (INO) | payer OTHER ==
[2023-11-17] MEDS ORDERED: SODIUM CHLORIDE 0.9% 1,000 ML IV ONE (16:49)
--- NOTE | 2023-11-17 17:06 | ED ---
Altered Mental Status HPI - General Chief Complaint: Altered Mental Status Stated Complaint: ETOH Time Seen by Provider: 11/17/23 16:00 Source: patient, EMS, RN notes reviewed Mode of arrival: EMS Limitations: no limitations - History of Present Illness Initial Comments: 63-year-old female history of alcohol abuse and intoxication also history of COPD CVA seizures hypertension and coronary artery disease was brought in by EMS after being found minimally responsive on the floor at home. Initially the only way they can identify the patient was by a pill bottle. Patient states she had fallen she complains some neck pain no loss of function to her upper or lower extremity she has chronic back pain per history. Is a poor historian no other current complaints. Patient is suspected be intoxicated per paramedics. MD Complaint: altered mental status - Related Data Home Medications Medication Instructions Recorded Confirmed Aspirin EC [Ecotrin Low Dose] 81 mg PO DAILY 02/11/19 08/27/23 Metoprolol Succinate (ER) [Toprol 50 mg PO DAILY 06/13/21 08/27/23 XL] Fluticasone Nasal [place] [Flonase 1 spr EA NOSTRIL DAILY PRN 02/14/22 08/27/23 Nasal [place]] Simvastatin [Zocor] 40 mg PO HS 07/03/22 08/27/23 Isosorbide Mononitrate ER [Imdur] 30 mg PO DAILY 11/10/22 08/27/23 Ticagrelor [Brilinta] 90 mg PO BID 01/14/23 08/27/23 Nitroglycerin Sl Tabs [Nitrostat] 0.4 mg SL Q5M PRN 02/06/23 08/27/23 Albuterol Nebulized [Ventolin 2.5 mg INHALATION RT-QID PRN 05/17/23 08/27/23 Nebulized] Folic Acid-Vit B Complex-Vit C 1 cap PO DAILY 05/23/23 08/27/23 [Nephrocaps] Budesonide/Formoterol Fumarate 2 puff INHALATION RT-BID 07/29/23 08/27/23 [Symbicort 160-4.5 Mcg Inhaler] carvediloL [Coreg] 6.25 mg PO DIRECTED 08/27/23 08/27/23 Previous Rx's Medication Instructions Recorded Albuterol Inhaler [Ventolin Hfa 2 puff INHALATION RT-QID PRN 30 01/22/23 Inhaler] Days #1 each Ondansetron Odt [Zofran ODT] 4 mg PO Q8HR PRN #15 tab 06/19/23 Allergies Allergy/AdvReac Type Severity Reaction Status Date / Time [place] And Derivatives Allergy Rash/Hives Verified 08/27/23 17:54 [[place]] latex Allergy Rash/Hives Verified 08/27/23 17:54 tomato Allergy Diarrhea Verified 08/27/23 17:54 Influenza Virus Vaccines AdvReac Nausea & Verified 08/27/23 17:54 Vomiting morphine AdvReac Nausea & Verified 08/27/23 17:54 Vomiting Review of Systems ROS Statement: Those systems with pertinent positive or pertinent negative responses have been documented in the HPI. ROS Other: All systems not noted in ROS Statement are negative. Limitations: ROS unobtainable due to patients medical condition Past Medical History Past Medical History: Asthma, Coronary Artery Disease (CAD), COPD, CVA/TIA, Eye Disorder, Hypertension, Liver Disease, Myocardial Infarction ([place]), Seizure Disorder, Vascular Disorder Additional Past Medical History / Comment(s): Pt recently admitted to [facility] for diarrhea, ETOH abuse. 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 soon Last Myocardial Infarction Date:: aug 2018 History of Any Multi-Drug Resistant Organisms: None Reported Past Surgical History: Cholecystectomy, Heart Catheterization, Orthopedic Surgery Additional Past Surgical History / Comment(s): L caratid stent, bilateral knee surgeries for tendon repair, bartholian cyst removed bilateral wrists, cataracts Past Anesthesia/Blood Transfusion Reactions: Motion Sickness Additional Past Anesthesia/Blood Transfusion Reaction / Comment(s): Pt has received blood without reaction. Past Psychological History: Anxiety, Depression Smoking Status: Current every day smoker Past Alcohol Use History: Abuse, Daily, Heavy Past Drug Use History: Marijuana - Past Family History Mother Family Medical History: Cancer, Congestive Heart Failure (CHF), Coronary Artery Disease (CAD), Hyperlipidemia Additional Family Medical History / Comment(s): Mother at age 85 from lung cancer. Father Family Medical History: Cancer, COPD Additional Family Medical History / Comment(s): Father at age 63 from lung cancer. Brother(s) Additional Family Medical History / Comment(s): Patient has a total of 7 siblings. 5 are alive without any major medical problems she is aware of. 2 siblings have one from alcohol abuse and 1. Coronary artery disease. Daughter(s) Additional Family Medical History / Comment(s): Patient has one daughter with no major medical problems. General Exam - General Exam Comments Initial Comments: A well-developed well-nourished awake lethargic female with the smell of alcohol conjoiners on her breath and she does have a cervical collar was placed by paramedics. Limitations: no limitations General appearance: alert, lethargic Head exam: Present: atraumatic, normocephalic, normal inspection Eye exam: Present: normal appearance, PERRL, EOMI. Absent: scleral icterus, conjunctival injection, periorbital swelling ENT exam: Present: mucous membranes dry Neck exam: Present: normal inspection, tenderness (Paraspinous muscle tenderness no midline tenderness collar is in place) Respiratory exam: Present: normal lung sounds bilaterally. Absent: respiratory distress, wheezes, rales, rhonchi, stridor Cardiovascular Exam: Present: regular rate, normal rhythm, normal heart sounds. Absent: systolic murmur, diastolic murmur, rubs, gallop, clicks GI/Abdominal exam: Present: soft, normal bowel sounds. Absent: distended, tenderness, guarding, rebound, rigid Extremities exam: Present: normal inspection, full ROM, normal capillary refill. Absent: tenderness, pedal edema, joint swelling, calf tenderness Back exam: Present: normal inspection Neurological exam: Present: alert, altered, CN II-XII intact. Absent: motor sensory deficit Psychiatric exam: Present: normal affect, normal mood Skin exam: Present: warm, dry, intact, normal color. Absent: rash Course Vital Signs 11/17/23 11/17/23 11/17/23 16:09 18:00 20:00 Temperature 97.8 F Pulse Rate 90 101 H 104 H Respiratory 18 19 16 Rate Blood Pressure 119/83 119/83 119/86 O2 Sat by Pulse 99 97 95 Oximetry Medical Decision Making - Medical Decision Making Reassessment of the patient she is resting comfortably ever for a work reveals patient is highly intoxicated with a alcohol level of 415 mg/dL. Patient will be admitted to this facility and did discuss the case with Dr. Barry. Was pt. sent in by a medical professional or institution (YESSY Lloyd, MARKETING RECRUITER, urgent care, hospital, or [place] health [place] facility...) When possible be specific @ -No Did you speak to anyone other than the patient for history (EMS, parent, family, police, friend...)? What history was obtained from this source @ -MS personnel upon arrival Did you review nursing and triage notes (agree or disagree)? Why? @ -I reviewed and agree with nursing and triage notes Were old charts reviewed (outside hosp., previous admission, EMS record, old EKG, old radiological studies, urgent care reports/EKG's, [place] health [facility] facility records)? Report findings @ -No pedal old charts were reviewed] Differential Diagnosis (chest pain, altered mental status, abdominal pain women, abdominal pain men, vaginal bleeding, weakness, fever, dyspnea, syncope, headache, dizziness, GI bleed, back pain, seizure, CVA, palpatations, mental health, musculoskeletal)? @ -Or mental status, alcohol intoxication EKG interpreted by me (3pts min.). @ -As above ED interpreted by me sinus rhythm of 89 DC interval 147 QRS duration 93 QT/QTC 376/[address] configuration X-rays interpreted by me (1pt min.). @ -Chest x-ray and pelvis x-ray interpreted by me no acute processes seen evidence of COPD CT interpreted by me (1pt min.). @ -CT brain and C-spine no evidence of acute trauma/acute processes. U/S interpreted by me (1pt. min.). @ -None done What testing was considered but not performed or refused? (CT, X-rays, U/S, labs)? Why? @ -None What meds were considered but not given or refused? Why? @ -None Did you discuss the management of the patient with other professionals ( professionals i.e. YESSY Lloyd, MARKETING RECRUITER, lab, RT, psych nurse, social and political studies professor, attending pathologist, teacher, crime prevention police officer, employment evaluator/case manager)? Give summary @ -At her, who is agreed to accept the patient in to her service Was smoking cessation discussed for >3mins.? @ -No Was critical care preformed (if so, how long)? @ -No Were there social determinants of health that impacted care today? How? (Homelessness, low income, unemployed, alcoholism, drug addiction, transportation, low edu. Level, literacy, decrease access to med. care, nursing home, rehab)? @ -Alcoholism Was there de-escalation of care discussed even if they declined (Discuss DNR or withdrawal of care, Hospice)? DNR status @ -No What co-morbidities impacted this encounter? (DM, HTN, Smoking, COPD, CAD, Cancer, CVA, ARF, Chemo, Hep., AIDS, mental health diagnosis, sleep apnea, morbid obesity)? @ -COPD, history of CAD, hypertension, alcoholism Was patient admitted / discharged? Hospital course, mention meds given and route, prescriptions, significant lab abnormalities, going to OR and other pertinent info. @ -hospital course he was admitted for inpatient evaluation and treatment Undiagnosed new problem with uncertain prognosis? @ -No Drug Therapy requiring intensive monitoring for toxicity (Heparin, Nitro, Insulin, Cardizem)? @ -No Were any procedures done? @ -No Diagnosis/symptom? @ -Acute alcohol intoxication, altered mental status Acute, or Chronic, or Acute on Chronic? @ -Acute on chronic Uncomplicated (without systemic symptoms) or Complicated (systemic symptoms)? @ -Complicated Side effects of treatment? @ -No Exacerbation, Progression, or Severe Exacerbation? @ Exacerbation] Poses a threat to life or bodily function? How? (Chest pain, [place], [place], pneumonia, PE, COPD, DKA, ARF, appy, cholecystitis, CVA, Diverticulitis, Homicidal, Suicidal, threat to staff... and all critical care pts) @ -Yes alcohol intoxication - Lab Data Result diagrams: 11/17/23 18:00 11/17/23 18:00 Lab Results 11/17/23 11/17/23 11/17/23 Range/Units 18:00 18:00 18:00 WBC 11.8 H (3.8-10.6) k/uL RBC 5.25 (3.80-5.40) m/uL Hgb 15.3 (11.4-16.0) gm/dL Hct 46.5 H (34.0-46.0) % MCV 88.7 (80.0-100.0) fL MCH 29.1 (25.0-35.0) pg MCHC 32.8 (31.0-37.0) g/dL RDW 18.1 H (11.5-15.5) % Plt Count 247 (150-450) k/uL MPV 8.2 Neutrophils % 58 % Lymphocytes % 34 % Monocytes % 3 % Eosinophils % 1 % Basophils % 2 % Neutrophils # 6.9 (1.3-7.7) k/uL Lymphocytes # 4.0 (1.0-4.8) k/uL Monocytes # 0.3 (0-1.0) k/uL Eosinophils # 0.2 (0-0.7) k/uL Basophils # 0.2 (0-0.2) k/uL Anisocytosis Slight PT 10.6 (10.0-12.5) sec INR 1.0 (<1.2) APTT 24.7 (22.0-30.0) sec Sodium (137-145) mmol/L Potassium (3.5-5.1) mmol/L Chloride (98-107) mmol/L Carbon Dioxide (22-30) mmol/L Anion Gap mmol/L BUN (7-17) mg/dL Creatinine (0.52-1.04) mg/dL Est GFR (CKD-EPI)AfAm (>60 ml/min/1.73 sqM) Est GFR (CKD-EPI)NonAf (>60 ml/min/1.73 sqM) Glucose (74-99) mg/dL POC Glucose (mg/dL) (70-110) mg/dL POC Glu Dispatcher Clerk ID Calcium (8.4-10.2) mg/dL Total Bilirubin (0.2-1.3) mg/dL AST (14-36) U/L ALT (4-34) U/L Alkaline Phosphatase (38-126) U/L Ammonia (<30) umol/L Troponin I (0.000-0.034) ng/mL Total Protein (6.3-8.2) g/dL Albumin (3.5-5.0) g/dL Urine Color Urine Appearance (Clear) Urine pH (5.0-8.0) Ur Specific [place] (1.001-1.035) Urine Protein (Negative) Urine Glucose (UA) (Negative) Urine Ketones (Negative) Urine Blood (Negative) Urine Nitrite (Negative) Urine Bilirubin (Negative) Urine Urobilinogen (<2.0) mg/dL Ur Leukocyte Esterase (Negative) Urine Opiates Screen Not Detected (NotDetected) Ur Oxycodone Screen Not Detected (NotDetected) Urine Methadone Screen Not Detected (NotDetected) Ur Barbiturates Screen Not Detected (NotDetected) U Tricyclic Antidepress Not Detected (NotDetected) Ur Phencyclidine Scrn Not Detected (NotDetected) Ur Amphetamines Screen Not Detected (NotDetected) U Methamphetamines Scrn Not Detected (NotDetected) U Benzodiazepines Scrn Not Detected (NotDetected) Urine Cocaine Screen Not Detected (NotDetected) U Marijuana (THC) Screen Not Detected (NotDetected) Serum Alcohol mg/dL 11/17/23 11/17/23 11/17/23 Range/Units 18:00 18:00 18:00 WBC (3.8-10.6) k/uL RBC (3.80-5.40) m/uL Hgb (11.4-16.0) gm/dL Hct (34.0-46.0) % MCV (80.0-100.0) fL MCH (25.0-35.0) pg MCHC (31.0-37.0) g/dL RDW (11.5-15.5) % Plt Count (150-450) k/uL MPV Neutrophils % % Lymphocytes % % Monocytes % % Eosinophils % % Basophils % % Neutrophils # (1.3-7.7) k/uL Lymphocytes # (1.0-4.8) k/uL Monocytes # (0-1.0) k/uL Eosinophils # (0-0.7) k/uL Basophils # (0-0.2) k/uL Anisocytosis PT (10.0-12.5) sec INR (<1.2) APTT (22.0-30.0) sec Sodium 144 (137-145) mmol/L Potassium 4.4 (3.5-5.1) mmol/L Chloride 105 (98-107) mmol/L Carbon Dioxide 21 L (22-30) mmol/L Anion Gap 18 mmol/L BUN 12 (7-17) mg/dL Creatinine 0.59 (0.52-1.04) mg/dL Est GFR (CKD-EPI)AfAm >90 (>60 ml/min/1.73 sqM) Est GFR (CKD-EPI)NonAf >90 (>60 ml/min/1.73 sqM) Glucose 92 (74-99) mg/dL POC Glucose (mg/dL) (70-110) mg/dL POC Glu Dispatcher Clerk ID Calcium 9.2 (8.4-10.2) mg/dL Total Bilirubin 0.3 (0.2-1.3) mg/dL AST 36 (14-36) U/L ALT 25 (4-34) U/L Alkaline Phosphatase 106 (38-126) U/L Ammonia (<30) umol/L Troponin I 0.020 (0.000-0.034) ng/mL Total Protein 7.0 (6.3-8.2) g/dL Albumin 4.2 (3.5-5.0) g/dL Urine Color Colorless Urine Appearance Clear (Clear) Urine pH 5.0 (5.0-8.0) Ur Specific [place] 1.007 (1.001-1.035) Urine Protein Negative (Negative) Urine Glucose (UA) Negative (Negative) Urine Ketones Negative (Negative) Urine Blood Negative (Negative) Urine Nitrite Negative (Negative) Urine Bilirubin Negative (Negative) Urine Urobilinogen <2.0 (<2.0) mg/dL Ur Leukocyte Esterase Negative (Negative) Urine Opiates Screen (NotDetected) Ur Oxycodone Screen (NotDetected) Urine Methadone Screen (NotDetected) Ur Barbiturates Screen (NotDetected) U Tricyclic Antidepress (NotDetected) Ur Phencyclidine Scrn (NotDetected) Ur Amphetamines Screen (NotDetected) U Methamphetamines Scrn (NotDetected) U Benzodiazepines Scrn (NotDetected) Urine Cocaine Screen (NotDetected) U Marijuana (THC) Screen (NotDetected) Serum Alcohol 415 H* mg/dL 11/17/23 11/17/23 Range/Units 18:00 18:15 WBC (3.8-10.6) k/uL RBC (3.80-5.40) m/uL Hgb (11.4-16.0) gm/dL Hct (34.0-46.0) % MCV (80.0-100.0) fL MCH (25.0-35.0) pg MCHC (31.0-37.0) g/dL RDW (11.5-15.5) % Plt Count (150-450) k/uL MPV Neutrophils % % Lymphocytes % % Monocytes % % Eosinophils % % Basophils % % Neutrophils # (1.3-7.7) k/uL Lymphocytes # (1.0-4.8) k/uL Monocytes # (0-1.0) k/uL Eosinophils # (0-0.7) k/uL Basophils # (0-0.2) k/uL Anisocytosis PT (10.0-12.5) sec INR (<1.2) APTT (22.0-30.0) sec Sodium (137-145) mmol/L Potassium (3.5-5.1) mmol/L Chloride (98-107) mmol/L Carbon Dioxide (22-30) mmol/L Anion Gap mmol/L BUN (7-17) mg/dL Creatinine (0.52-1.04) mg/dL Est GFR (CKD-EPI)AfAm (>60 ml/min/1.73 sqM) Est GFR (CKD-EPI)NonAf (>60 ml/min/1.73 sqM) Glucose (74-99) mg/dL POC Glucose (mg/dL) 96 (70-110) mg/dL POC Glu Dispatcher Clerk ID Nithin House Calcium (8.4-10.2) mg/dL Total Bilirubin (0.2-1.3) mg/dL AST (14-36) U/L ALT (4-34) U/L Alkaline Phosphatase (38-126) U/L Ammonia <9 (<30) umol/L Troponin I (0.000-0.034) ng/mL Total Protein (6.3-8.2) g/dL Albumin (3.5-5.0) g/dL Urine Color Urine Appearance (Clear) Urine pH (5.0-8.0) Ur Specific [place] (1.001-1.035) Urine Protein (Negative) Urine Glucose (UA) (Negative) Urine Ketones (Negative) Urine Blood (Negative) Urine Nitrite (Negative) Urine Bilirubin (Negative) Urine Urobilinogen (<2.0) mg/dL Ur Leukocyte Esterase (Negative) Urine Opiates Screen (NotDetected) Ur Oxycodone Screen (NotDetected) Urine Methadone Screen (NotDetected) Ur Barbiturates Screen (NotDetected) U Tricyclic Antidepress (NotDetected) Ur Phencyclidine Scrn (NotDetected) Ur Amphetamines Screen (NotDetected) U Methamphetamines Scrn (NotDetected) U Benzodiazepines Scrn (NotDetected) Urine Cocaine Screen (NotDetected) U Marijuana (THC) Screen (NotDetected) Serum Alcohol mg/dL Disposition Clinical Impression: Acute alcohol intoxication, Mental status alteration Disposition: ADMITTED IP TO THIS [facility] Condition: Fair Referrals: Miya Johnson MD [Primary Care Provider] - 1-2 days Decision Date: 11/17/23 Decision Time: 20:37
[2023-11-17 18:16] LABS: Glucose,Whole Blood 96 mg/dL (70-110)
--- NOTE | 2023-11-17 18:24 | CT ---
EXAMINATION TYPE: CT brain cspine wo con DATE OF EXAM: 11/17/2023 COMPARISON: Brain 05/16/2023 HISTORY: 63-year-old female confusion, AMS, Fall CT DLP: 1402.8 mGycm Automated exposure control for dose reduction was used. Technique: Examination of the head was done in axial plane without intravenous contrast. Coronal and sagittal reconstructions performed. CT of the cervical spine was obtained in axial plane without intravenous injection of contrast mater ial. Coronal and sagittal reformatted images were obtained from the axial views for evaluation of f ractures, spinal alignment and canal. FINDINGS: Head: There is no evidence of acute intracranial hemorrhage, acute ischemic changes, mass effect, or extra -axial fluid collection. Redemonstrated 1.2 cm hyperdense round lesion at the foramen of Yu most compatible with a colloid cyst. Redemonstrate encephalomalacia posterior left frontal lobe extending to the parietal lobe. Atheroscle rotic calcifications carotid siphons. There is no effacement of cerebral sulci or basal subarachnoid cisterns. There is no hydrocephalus. There is no midline shift. [place]-white matter distinction is preserved. Moderate mucosal thickening ethmoid air cells. Rightward nasal septal deviation. Mastoid air cells we ll pneumatized. Orbits and globes are intact. Cervical spine: No precervical junction of the body, predental space widening, or prevertebral soft tissue swelling. Alignment is maintained. No acute fracture of the cervical spine. Scattered mild degenerative changes especially mid and lower cervical spine. Changes result in moderate right neuroforaminal stenosis at C5-C6. No significant spinal canal stenosis appreciated by CT. Prominent atherosclerotic calcifications of the carotid bifurcations. Sagittal and coronal reformatted images confirm above findings. COMBINED IMPRESSION: 1. Unchanged 1.2 cm colloid cyst at the foramen of [place]. Recommend neurosurgery referral for discuss ion of future surveillance/management. Notify the patient that it can be a potential cause of positio nal headaches and life-threatening hydrocephalus. 2. Old left frontoparietal infarct and encephalomalacia. 3. No acute fracture or malalignment of the cervical spine. Mild spondylotic change.
[2023-11-17 18:27] LABS: Anisocytosis Slight; Basophils # (A) 0.2 k/uL (0-0.2); Basophils % (A) 2 %; Eosinophils # (A) 0.2 k/uL (0-0.7); Eosinophils % (A) 1 %; HCT 46.5 % (34.0-46.0); HGB 15.3 gm/dL (11.4-16.0); Lymphocytes % (A) 34 %; MCH 29.1 pg (25.0-35.0); MCHC 32.8 g/dL (31.0-37.0); MCV 88.7 fL (80.0-100.0); Mean Platelet Volume 8.2; Monocytes # (A) 0.3 k/uL (0-1.0); Monocytes % (A) 3 %; Neutrophils # (A) 6.9 k/uL (1.3-7.7); Neutrophils % (A) 58 %; Platelet Count 247 k/uL (150-450); RBC 5.25 m/uL (3.80-5.40); RDW 18.1 % (11.5-15.5); WBC 11.8 k/uL (3.8-10.6)
[2023-11-17 18:37] LABS: Partial Thromboplastin Time 24.7 sec (22.0-30.0); Prothrombin Time 10.6 sec (10.0-12.5)
[2023-11-17 18:40] LABS: ALT 25 U/L (4-34); AST 36 U/L (14-36); African American GFR (CKD) >90 (>60 ml/min/1.73 sqM); Albumin 4.2 g/dL (3.5-5.0); Alkaline Phosphatase 106 U/L (38-126); Anion Gap 18 mmol/L; Blood Urea Nitrogen 12 mg/dL (7-17); Calcium 9.2 mg/dL (8.4-10.2); Carbon Dioxide 21 mmol/L (22-30); Chloride 105 mmol/L (98-107); Glucose 92 mg/dL (74-99); Non-African American GFR(CKD) >90 (>60 ml/min/1.73 sqM); Potassium 4.4 mmol/L (3.5-5.1); Sodium 144 mmol/L (137-145); Total Bilirubin 0.3 mg/dL (0.2-1.3)
[2023-11-17 19:01] LABS: Alcohol 415 mg/dL
[2023-11-17 19:06] LABS: Appearance,Urine Clear (Clear); Bilirubin,Urine Negative (Negative); Blood,Urine Negative (Negative); Color,Urine Colorless; Glucose,Urine (UA) Negative (Negative); Ketones,Urine Negative (Negative); Leukocyte Esterase,Urine Negative (Negative); Nitrite,Urine Negative (Negative); Protein,Urine Negative (Negative); Specific Gravity,Urine 1.007 (1.001-1.035); Urobilinogen,Urine <2.0 mg/dL (<2.0)
[2023-11-17 19:17] LABS: Amphetamine Screen,Urine Not Detected (NotDetected); Barbiturate Screen,Urine Not Detected (NotDetected); Benzodiazepines Screen,Urine Not Detected (NotDetected); Cocaine Screen,Urine Not Detected (NotDetected); Methadone Screen, Urine Not Detected (NotDetected); Opiate Screen,Urine Not Detected (NotDetected); Oxycodone Screen, Urine Not Detected (NotDetected); Phencyclidine Screen,Urine Not Detected (NotDetected); Tricyclic Antidepressant,Urine Not Detected (NotDetected); Urn Cannabinoid Scrn Not Detected (NotDetected)
--- NOTE | 2023-11-17 19:22 | XR ---
EXAMINATION TYPE: XR chest 1V portable DATE OF EXAM: 11/17/2023 Comparison: 08/27/2023 Clinical History: 63-year-old female confusion, altered mental status, pain after fall Findings: Heart borderline enlarged. Aorta and pulmonary vasculature within normal limits. No consolidation or pleural effusion. Impression: Borderline heart size. No acute process seen.
--- NOTE | 2023-11-17 19:25 | XR ---
EXAMINATION TYPE: XR pelvis AP view DATE OF EXAM: 11/17/2023 Comparison: 08/27/2023 Clinical History: 63-year-old female pain after fall, trauma, confusion, altered mental status Findings: Mild degenerative changes side joints. Vascular calcifications in the pelvis. Hip joint space is main tained on both sides. No acute fracture, subluxation, dislocation is seen. Impression: No acute osseous abnormality seen.
[2023-11-17] MEDS ORDERED: NALOXONE 0.4 MG/ML 1 ML VIAL IV PRN (20:38)
[2023-11-17] MEDS ORDERED: THIAMINE 100 MG/ML 2 ML VIAL IM STA (20:39)
[2023-11-18] MEDS ORDERED: KETOROLAC 15 MG/ML 1 ML VIAL IVP STA (00:01)
[2023-11-18] MEDS: SODIUM CHLORIDE 0.9% 1,000 ML IV SCH ×4 (00:04→21:22)
[2023-11-18] MEDS: LORazepam 1 MG TAB PO PRN ×2 (00:21→13:58)
[2023-11-18] MEDS ORDERED: NITROGLYCERIN SL TABS 0.4 MG TAB SUBLINGUAL PRN (01:42)
--- NOTE | 2023-11-18 01:45 | P.HPIM ---
History of Present Illness H&P Date: 11/17/23 Chief Complaint: Altered mental status 63-year-old female history of alcohol abuse and intoxication also history of COPD CVA seizures hypertension and coronary artery disease was brought in by EMS after being found minimally responsive on the floor at home. Initially the only way they could identify the patient was by a pill bottle. Patient states she had fallen she complains some neck pain no loss of function to her upper or lower extremity she has chronic back pain per history. Is a poor historian no other current complaints. Patient is suspected to be intoxicated per paramedics. EKG--sinus rhythm of 89 RI interval 147 QRS duration 93 QT/QTC 376/[address] configuration Chest x-ray and pelvis x-ray interpreted by me no acute processes seen evidence of COPD CT brain and C-spine no evidence of acute trauma/acute processes. Blood work reveals to be was 11.8, hemoglobin 15.3 and platelet count of 247, sodium 144, potassium 4.4, BUN 12, creatinine 0.59, troponin 0.020, serum alcohol level of 450 Review of Systems REVIEW OF SYSTEMS: CONSTITUTIONAL: No fever, no malaise, no fatigue. HEENT: No recent visual problems or hearing problems. Denied any sore throat. CARDIOVASCULAR: No chest pain, orthopnea, PND, no palpitations, no syncope. PULMONARY: No shortness of breath, no cough, no hemoptysis. GASTROINTESTINAL: No diarrhea, no nausea, no vomiting, no abdominal pain. NEUROLOGICAL: No headaches, no weakness, no numbness. HEMATOLOGICAL: Denies any bleeding or petechiae. GENITOURINARY: Denies any burning micturition, frequency, or urgency. MUSCULOSKELETAL/RHEUMATOLOGICAL: Denies any joint pain, swelling, or any muscle pain. ENDOCRINE: Denies any polyuria or polydipsia. The rest of the 14-point review of systems is negative. Past Medical History Past Medical History: Asthma, Coronary Artery Disease (CAD), COPD, CVA/TIA, Eye Disorder, Hypertension, Liver Disease, Myocardial Infarction ([place]), Seizure Disorder, Vascular Disorder Additional Past Medical History / Comment(s): Pt recently admitted to [facility] for diarrhea, ETOH abuse. 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 soon Last Myocardial Infarction Date:: aug 2018 History of Any Multi-Drug Resistant Organisms: None Reported Past Surgical History: Cholecystectomy, Heart Catheterization, Orthopedic Surgery Additional Past Surgical History / Comment(s): L caratid stent, bilateral knee surgeries for tendon repair, bartholian cyst removed bilateral wrists, cataracts Past Anesthesia/Blood Transfusion Reactions: Motion Sickness Additional Past Anesthesia/Blood Transfusion Reaction / Comment(s): Pt has received blood without reaction. Past Psychological History: Anxiety, Depression Smoking Status: Current every day smoker Past Alcohol Use History: Abuse, Daily, Heavy Past Drug Use History: Marijuana - Past Family History Mother Family Medical History: Cancer, Congestive Heart Failure (CHF), Coronary Artery Disease (CAD), Hyperlipidemia Additional Family Medical History / Comment(s): Mother at age 85 from lung cancer. Father Family Medical History: Cancer, COPD Additional Family Medical History / Comment(s): Father at age 63 from lung cancer. Brother(s) Additional Family Medical History / Comment(s): Patient has a total of 7 siblings. 5 are alive without any major medical problems she is aware of. 2 siblings have one from alcohol abuse and 1. Coronary artery disease. Daughter(s) Additional Family Medical History / Comment(s): Patient has one daughter with no major medical problems. Medications and Allergies Home Medications Medication Instructions Recorded Confirmed Type Aspirin EC [Ecotrin Low Dose] 81 mg PO HS 02/11/19 11/17/23 History Metoprolol Succinate (ER) [Toprol 50 mg PO HS 06/13/21 11/17/23 History XL] Fluticasone Nasal [place] [Flonase 1 spr EA NOSTRIL DAILY PRN 02/14/22 11/17/23 History Nasal [place]] Simvastatin [Zocor] 40 mg PO HS 07/03/22 11/17/23 History Isosorbide Mononitrate ER [Imdur] 30 mg PO HS 11/10/22 11/17/23 History Ticagrelor [Brilinta] 90 mg PO HS 01/14/23 11/17/23 History Albuterol Inhaler [Ventolin Hfa 2 puff INHALATION RT-QID PRN 30 01/22/23 11/17/23 Rx Inhaler] Days #1 each Nitroglycerin Sl Tabs [Nitrostat] 0.4 mg SL Q5M PRN 02/06/23 11/17/23 History Albuterol Nebulized [Ventolin 2.5 mg INHALATION RT-QID PRN 05/17/23 11/17/23 His tory Nebulized] Folic Acid-Vit B Complex-Vit C 1 cap PO HS 05/23/23 11/17/23 History [Nephrocaps] Ondansetron Odt [Zofran ODT] 4 mg PO Q8HR PRN #15 tab 06/19/23 11/17/23 Rx Budesonide/Formoterol Fumarate 2 puff INHALATION RT-BID 07/29/23 11/17/23 History [Symbicort 160-4.5 Mcg Inhaler] Allergies Allergy/AdvReac Type Severity Reaction Status Date / Time [place] And Derivatives Allergy Rash/Hives Verified 08/27/23 17:54 [[place]] latex Allergy Rash/Hives Verified 08/27/23 17:54 tomato Allergy Diarrhea Verified 08/27/23 17:54 Influenza Virus Vaccines AdvReac Nausea & Verified 08/27/23 17:54 Vomiting morphine AdvReac Nausea & Verified 08/27/23 17:54 Vomiting Physical Exam Vitals: Vital Signs Temp Pulse Resp BP Pulse Ox 11/17/23 22:14 103 H 18 124/87 96 11/17/23 20:00 104 H 16 119/86 95 11/17/23 18:00 101 H 19 119/83 97 11/17/23 16:09 97.8 F 90 18 119/83 99 Intake and Output 11/17/23 11/17/23 11/18/23 14:59 22:59 06:59 Other: Weight 200 kg General appearance: alert, lethargic Head exam: Present: atraumatic, normocephalic, normal inspection Eye exam: Present: normal appearance, PERRL, EOMI. Absent: scleral icterus, conjunctival injection, periorbital swelling ENT exam: Present: mucous membranes dry Neck exam: Present: normal inspection, tenderness (Paraspinous muscle tenderness no midline tenderness collar is in place) Respiratory exam: Present: normal lung sounds bilaterally. Absent: respiratory distress, wheezes, rales, rhonchi, stridor Cardiovascular Exam: Present: regular rate, normal rhythm, normal heart sounds. Absent: systolic murmur, diastolic murmur, rubs, gallop, clicks GI/Abdominal exam: Present: soft, normal bowel sounds. Absent: distended, tenderness, guarding, rebound, rigid Extremities exam: Present: normal inspection, full ROM, normal capillary refill. Absent: tenderness, pedal edema, joint swelling, calf tenderness Back exam: Present: normal inspection Neurological exam: Present: alert, altered, CN II-XII intact. Absent: motor sensory deficit Psychiatric exam: Present: normal affect, normal mood Skin exam: Present: warm, dry, intact, normal color. Absent: rash Results CBC & Chem 7: 11/17/23 18:00 11/17/23 18:00 Labs: Abnormal Lab Results - Last 24 Hours (Table) 11/17/23 11/17/23 Range/Units 18:00 18:00 WBC 11.8 H (3.8-10.6) k/uL Hct 46.5 H (34.0-46.0) % RDW 18.1 H (11.5-15.5) % Carbon Dioxide 21 L (22-30) mmol/L Serum Alcohol 415 H* mg/dL Assessment and Plan Assessment: 1. Altered mental status; related to alcohol intoxication 2. Acute alcohol intoxication/pending withdrawal - Patient has been placed on IV fluids in form of normal saline at a rate of 1 30 mL an hour; thiamine and folic acid supplement -- [facility] protocol 3. Leukocytosis; likely, monitor CBC 4. Hypertension; metoprolol 50 g daily at bedtime 5. Hyperlipidemia Zocor 40 mg daily; 6. COPD/asthma; not in exacerbation; continue with home inhaler therapy with Symbicort and albuterol inhaler 7. Seizure disorder 8. Coronary artery diseaseWith stenting ; patient remains on aspirin, Brilinta, statins, beta blockers 9. TIA/CVA; with right-sided weakness/speech deficit
[2023-11-18] MEDS ORDERED: chlordiazePOXIDE 25 MG CAP PO PRN (01:49)
[2023-11-18] MEDS ORDERED: LORazepam 2 MG/ML INJ IV PRN ×3 (01:49)
[2023-11-18] MEDS: ALBUTEROL NEBULIZED 2.5 MG/3 ML INHALATION PRN (04:13)
[2023-11-18 04:38] LABS: Alcohol 121 mg/dL
[2023-11-18] MEDS ORDERED: hydrALAZINE HCL 20 MG/ML 1 ML VIAL IVP PRN (06:08)
[2023-11-18] MEDS ORDERED: CYCLOBENZAPRINE 10 MG TAB PO PRN (06:08)
[2023-11-18] MEDS ORDERED: METOPROLOL SUCCINATE (ER) 50 MG TAB.ER.24H PO STA (06:10)
[2023-11-18] MEDS: ONDANSETRON 4 MG/2 ML VIAL IVP PRN (06:23)
--- NOTE | 2023-11-18 06:58 | P.PN ---
Subjective Progress Note Date: 11/18/23 63-year-old female history of alcohol abuse and intoxication also history of COPD CVA seizures hypertension and coronary artery disease was brought in by EMS after being found minimally responsive on the floor at home. Initially the only way they could identify the patient was by a pill bottle. Patient states she had fallen she complains some neck pain no loss of function to her upper or lower extremity she has chronic back pain per history. Is a poor historian no other current complaints. Patient is suspected to be intoxicated per paramedics. EKG--sinus rhythm of 89 [place] interval 147 QRS duration 93 QT/QTC 376/[address] configuration Chest x-ray and pelvis x-ray interpreted by me no acute processes seen evidence of COPD CT brain and C-spine no evidence of acute trauma/acute processes. Blood work reveals to be was 11.8, hemoglobin 15.3 and platelet count of 247, sodium 144, potassium 4.4, BUN 12, creatinine 0.59, troponin 0.020, serum alcohol level of 450 Objective - Vital Signs Vital signs: Vital Signs Temp 97.8 F 11/17/23 16:09 Pulse 110 H 11/18/23 02:11 Resp 18 11/18/23 02:11 BP 140/99 11/18/23 02:11 Pulse Ox 95 11/18/23 02:11 FiO2 Intake & Output 11/17/23 11/17/23 11/18/23 06:59 18:59 06:59 Weight 200 kg - Exam Head exam: Present: atraumatic, normocephalic, normal inspection Eye exam: Present: normal appearance, PERRL, EOMI. Absent: scleral icterus, conjunctival injection, periorbital swelling ENT exam: Present: mucous membranes dry Neck exam: Present: normal inspection, tenderness (Paraspinous muscle tenderness no midline tenderness collar is in place) Respiratory exam: Present: normal lung sounds bilaterally. Absent: respiratory distress, wheezes, rales, rhonchi, stridor Cardiovascular Exam: Present: regular rate, normal rhythm, normal heart sounds. Absent: systolic murmur, diastolic murmur, rubs, gallop, clicks GI/Abdominal exam: Present: soft, normal bowel sounds. Absent: distended, tenderness, guarding, rebound, rigid Extremities exam: Present: normal inspection, full ROM, normal capillary refill. Absent: tenderness, pedal edema, joint swelling, calf tenderness Back exam: Present: normal inspection Neurological exam: Present: alert, altered, CN II-XII intact. Absent: motor sensory deficit Psychiatric exam: Present: normal affect, normal mood Skin exam: Present: warm, dry, intact, normal color. Absent: rash - Labs CBC & Chem 7: 11/17/23 18:00 11/17/23 18:00 Labs: Abnormal Lab Results - Last 24 Hours (Table) 11/17/23 11/17/23 Range/Units 18:00 18:00 WBC 11.8 H (3.8-10.6) k/uL Hct 46.5 H (34.0-46.0) % RDW 18.1 H (11.5-15.5) % Carbon Dioxide 21 L (22-30) mmol/L Serum Alcohol 415 H* mg/dL Assessment and Plan Assessment: 1. Altered mental status; related to alcohol intoxication 2. Acute alcohol intoxication/pending withdrawal - Patient has been placed on IV fluids in form of normal saline at a rate of 1 30 mL an hour; thiamine and folic acid supplement -- [facility] protocol 3. Leukocytosis; likely, monitor CBC 4. Hypertension; metoprolol 50 g daily at bedtime 5. Hyperlipidemia Zocor 40 mg daily; 6. COPD/asthma; not in exacerbation; continue with home inhaler therapy with Symbicort and albuterol inhaler 7. Seizure disorder 8. Coronary artery diseaseWith stenting ; patient remains on aspirin, Brilinta, statins, beta blockers 9. TIA/CVA; with right-sided weakness/speech deficit
[2023-11-18] MEDS ORDERED: SODIUM CHLORIDE 0.9% 500 ML 500 ML IV ONE (07:50)
[2023-11-18] MEDS: THIAMINE 100 MG TAB PO SCH (08:04)
[2023-11-18] MEDS: SYMBICORT 160-4.5 MCG INHALER INHALATION SCH ×2 (08:20→19:33)
[2023-11-18] MEDS ORDERED: FLUTICASONE 50MCG/SPRAY NASAL 16GM EA NOSTRIL PRN (09:00)
[2023-11-18 10:04] LABS: Basophils # (A) 0.21 X 10*3/uL (0.00-0.10); Basophils % (A) 1.7 %; Eosinophils # (A) 0.16 X 10*3/uL (0.04-0.35); Eosinophils % (A) 1.3 %; HCT 39.9 % (37.2-46.3); HGB 12.8 g/dL (12.0-15.0); Lymphocytes # (A) 3.53 X 10*3/uL (0.90-5.00); Lymphocytes % (A) 28.8 %; MCHC 32.1 g/dL (32.0-37.0); MCV 87.3 FL (80.0-97.0); Mean Platelet Volume 10.6 FL (9.5-12.2); Monocytes # (A) 0.56 X 10*3/uL (0.20-1.00); Monocytes % (A) 4.6 %; NRBC Per 100 WBC 0 X 10*3/uL (0.00-0.01); Neutrophils # (A) 7.76 X 10*3/uL (1.80-7.70); Neutrophils % (A) 63.2 %; Platelet Count 235 X 10*3/uL (140-440); RBC 4.57 X 10*6/uL (4.10-5.20); RDW 19.2 % (11.5-14.5); WBC 12.27 X 10*3/uL (4.50-10.00)
[2023-11-18 11:54] LABS: ALT 24 U/L (4-34); AST 32 U/L (14-36); African American GFR (CKD) >90 (>60 ml/min/1.73 sqM); Anion Gap 14 mmol/L; Blood Urea Nitrogen 14 mg/dL (7-17); Calcium 8.8 mg/dL (8.4-10.2); Carbon Dioxide 22 mmol/L (22-30); Chloride 105 mmol/L (98-107); Glucose 118 mg/dL (74-99); Magnesium 1.8 mg/dL (1.6-2.3); Non-African American GFR(CKD) >90 (>60 ml/min/1.73 sqM); Phosphorus 3.9 mg/dL (2.5-4.5); Sodium 141 mmol/L (137-145)
[2023-11-18] MEDS ORDERED: ACETAMINOPHEN TAB 325 MG TAB PO PRN (15:07)
[2023-11-18] MEDS ORDERED: HYDROcodone/APAP 5-325MG 1 EACH TAB PO PRN (15:07)
[2023-11-18] MEDS ORDERED: ASPIRIN 81 MG PO SCH (21:00)
[2023-11-18] MEDS ORDERED: METOPROLOL SUCCINATE (ER) 50 MG TAB.ER.24H PO SCH (21:00)
[2023-11-18] MEDS ORDERED: ATORVASTATIN 20 MG TAB PO SCH (21:00)
[2023-11-18] MEDS ORDERED: ISOSORBIDE MONONITRATE ER 30 MG TAB.ER.24H PO SCH (21:00)
[2023-11-18] MEDS ORDERED: FOLIC ACID-VIT B COMPLEX-VIT C 1 CAP PO SCH (21:00)
[2023-11-18] MEDS ORDERED: TICAGRELOR 90 MG TAB PO SCH (21:00)
[2023-11-19] MEDS ORDERED: guaiFENesin SYRUP 100MG/5ML 200 MG/10 ML CUP PO PRN (02:37)
[2023-11-19] MEDS: SODIUM CHLORIDE 0.9% 1,000 ML IV SCH ×2 (06:45→13:14)
[2023-11-19] MEDS: THIAMINE 100 MG TAB PO SCH (08:04)
[2023-11-19] MEDS: ONDANSETRON 4 MG/2 ML VIAL IVP PRN (08:04)
[2023-11-19] MEDS: SYMBICORT 160-4.5 MCG INHALER INHALATION SCH (08:20)
[2023-11-19] MEDS: ALBUTEROL NEBULIZED 2.5 MG/3 ML INHALATION PRN (08:20)
[2023-11-19 08:43] VITALS: BP 141/95; PULSE 80; RESP 18; TEMP 98
[2023-11-19 08:50] LABS: African American GFR (CKD) >90 (>60 ml/min/1.73 sqM); Anion Gap 8 mmol/L; Blood Urea Nitrogen 11 mg/dL (7-17); Calcium 8.5 mg/dL (8.4-10.2); Carbon Dioxide 24 mmol/L (22-30); Chloride 105 mmol/L (98-107); Glucose 134 mg/dL (74-99); Non-African American GFR(CKD) >90 (>60 ml/min/1.73 sqM); Sodium 137 mmol/L (137-145)
[2023-11-19 09:07] LABS: Potassium 3.8 mmol/L (3.5-5.1)
[2023-11-19 09:30] LABS: Anisocytosis Slight; Basophils # (A) 0.1 k/uL (0-0.2); Basophils % (A) 1 %; Eosinophils # (A) 0.2 k/uL (0-0.7); Eosinophils % (A) 2 %; HCT 38.6 % (34.0-46.0); HGB 12.9 gm/dL (11.4-16.0); Lymphocytes # (A) 1.2 k/uL (1.0-4.8); Lymphocytes % (A) 17 %; MCH 30.2 pg (25.0-35.0); MCHC 33.3 g/dL (31.0-37.0); MCV 90.7 fL (80.0-100.0); Mean Platelet Volume 8.1; Monocytes # (A) 0.3 k/uL (0-1.0); Monocytes % (A) 4 %; Neutrophils # (A) 5.1 k/uL (1.3-7.7); Neutrophils % (A) 74 %; Platelet Count 133 k/uL (150-450); RBC 4.26 m/uL (3.80-5.40); RDW 17.8 % (11.5-15.5); WBC 6.9 k/uL (3.8-10.6)
--- NOTE | 2023-11-19 22:56 | DS ---
DISCHARGE SUMMARY FINAL DIAGNOSES: 1. Change in mental status, alcohol intoxication. 2. Acute delirium tremens. 3. Leukocytosis. 4. Hypertension. 5. Hyperlipidemia. 6. Multiple medical issues. DISCHARGE DISPOSITION: The patient will be discharged in stable condition and guarded prognosis. HISTORY OF PRESENT ILLNESS: This is a 63-year-old woman, who was admitted with alcohol intoxication as well as delirium tremens, treated with [facility] protocol. The patient improved significantly, so the patient will be discharged in stable condition and guarded prognosis. PHYSICAL EXAMINATION: VITAL SIGNS: Stable. CARDIOVASCULAR: S1, S2. ABDOMEN: Soft. Minimal tremors present. I recommended the patient to attend AA. Follow with primary physician closely and alcohol rehab. Add multivitamin, thiamine, and use Librium p.r.n. The patient does have already a stock. MMODL / IJN: [id number] /
== END 2023-11-19 14:16 | disposition home or self-care (01) ==
LOC: EC 15:58 → 4SSUR 20:40 → 1SOBS 11-18 15:06 → OBSVTOIN 11-19 07:42 → INTOOBSV 11-19 07:42 → UNDODISIN 11-19 14:16
PROVIDERS: ADMIT Internal Medicine; ATTEND Internal Medicine
DX: F10.231 Alcohol dependence with withdrawal delirium (principal); I69.351 Hemiplegia and hemiparesis following cerebral infarction affecting right dominant side; D72.829 Elevated white blood cell count, unspecified; I10 Essential (primary) hypertension; E78.5 Hyperlipidemia, unspecified; J44.9 Chronic obstructive pulmonary disease, unspecified; I25.10 Atherosclerotic heart disease of native coronary artery without angina pectoris; F41.9 Anxiety disorder, unspecified; F32.A Depression, unspecified; G40.909 Epilepsy, unspecified, not intractable, without status epilepticus; I25.2 Old myocardial infarction; F17.200 Nicotine dependence, unspecified, uncomplicated; Y90.8 Blood alcohol level of 240 mg/100 ml or more; Z95.5 Presence of coronary angioplasty implant and graft; Z79.82 Long term (current) use of aspirin; Z79.899 Other long term (current) drug therapy; Z79.51 Long term (current) use of inhaled steroids; Z79.02 Long term (current) use of antithrombotics/antiplatelets; Z88.5 Allergy status to narcotic agent; Z91.040 Latex allergy status
CPT/HCPCS: 96361 ×4; 96376; 96374; 96375; 99285; 36415; 94640 ×4; 94760; 93005 ×2; 80053; 80048 ×2; 82140; 83735; 84100; 84450; 84460; 84484; 85025 ×3; 85610; 85730; 81003; 80306; 72170; 71045; 72125; 70450; G0378 ×4; G0480 ×2; J2060; J0360; J2405 ×2; J1885; 80320

== ENCOUNTER 2023-12-03 10:36 | Emergency (ER) | payer OTHER ==
--- NOTE | 2023-12-03 11:11 | ED ---
General Adult HPI - General Chief complaint: Anxiety Stated complaint: Anxiety,ETOH Time Seen by Provider: 12/03/23 10:50 Source: patient, RN notes reviewed, old records reviewed Mode of arrival: EMS - History of Present Illness Initial comments: This is a 63-year-old female who presents emergency department stating that she's had a lot of anxiety she thinks whenever neighbors has been trying to kill her for a while. Patient states she just needs something for anxiety and she'll feel a lot better. Patient states that she did have some chest tightness but she states that goes along with her anxiety and is no longer there. Patient denies any difficulty breathing. Patient denies any headache patient denies numbness weakness. Patient has abdominal pain patient denies nausea vomiting diarrhea. Patient denies any recent fever chills or cough. - Related Data Home Medications Medication Instructions Recorded Confirmed Aspirin EC [Ecotrin Low Dose] 81 mg PO HS 02/11/19 11/17/23 Metoprolol Succinate (ER) [Toprol 50 mg PO HS 06/13/21 11/17/23 XL] Fluticasone Nasal [place] [Flonase 1 spr EA NOSTRIL DAILY PRN 02/14/22 11/17/23 Nasal [place]] Simvastatin [Zocor] 40 mg PO HS 07/03/22 11/17/23 Isosorbide Mononitrate ER [Imdur] 30 mg PO HS 11/10/22 11/17/23 Ticagrelor [Brilinta] 90 mg PO HS 01/14/23 11/17/23 Nitroglycerin Sl Tabs [Nitrostat] 0.4 mg SL Q5M PRN 02/06/23 11/17/23 Albuterol Nebulized [Ventolin 2.5 mg INHALATION RT-QID PRN 05/17/23 11/17/23 Nebulized] Folic Acid-Vit B Complex-Vit C 1 cap PO HS 05/23/23 11/17/23 [Nephrocaps] Budesonide/Formoterol Fumarate 2 puff INHALATION RT-BID 07/29/23 11/17/23 [Symbicort 160-4.5 Mcg Inhaler] Previous Rx's Medication Instructions Recorded Albuterol Inhaler [Ventolin Hfa 2 puff INHALATION RT-QID PRN 30 01/22/23 Inhaler] Days #1 each Ondansetron Odt [Zofran ODT] 4 mg PO Q8HR PRN #15 tab 06/19/23 Acetaminophen Tab [Tylenol] 650 mg PO Q6HR PRN tab 11/19/23 Multivitamins, Thera [Multivitamin] 1 tab PO DAILY #30 tablet 11/19/23 Thiamine [Vitamin B-1] 100 mg PO DAILY #30 tablet 11/19/23 Allergies Allergy/AdvReac Type Severity Reaction Status Date / Time [place] And Derivatives Allergy Rash/Hives Verified 12/03/23 11:22 [[place]] latex Allergy Rash/Hives Verified 12/03/23 11:22 tomato Allergy Diarrhea Verified 12/03/23 11:22 Influenza Virus Vaccines AdvReac Nausea & Verified 12/03/23 11:22 Vomiting morphine AdvReac Nausea & Verified 12/03/23 11:22 Vomiting Review of Systems ROS Statement: Those systems with pertinent positive or pertinent negative responses have been documented in the HPI. ROS Other: All systems not noted in ROS Statement are negative. Past Medical History Past Medical History: Asthma, Coronary Artery Disease (CAD), COPD, CVA/TIA, Eye Disorder, Hypertension, Liver Disease, Myocardial Infarction ([place]), Seizure Disorder, Vascular Disorder Additional Past Medical History / Comment(s): Pt recently admitted to [facility] for diarrhea, ETOH abuse. 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 soon Last Myocardial Infarction Date:: aug 2018 History of Any Multi-Drug Resistant Organisms: None Reported Past Surgical History: Cholecystectomy, Heart Catheterization, Orthopedic Surgery Additional Past Surgical History / Comment(s): L caratid stent, bilateral knee surgeries for tendon repair, bartholian cyst removed bilateral wrists, cataracts Past Anesthesia/Blood Transfusion Reactions: Motion Sickness Additional Past Anesthesia/Blood Transfusion Reaction / Comment(s): Pt has received blood without reaction. Past Psychological History: Anxiety, Depression Smoking Status: Current every day smoker Past Alcohol Use History: Abuse, Daily, Heavy Past Drug Use History: Marijuana - Past Family History Mother Family Medical History: Cancer, Congestive Heart Failure (CHF), Coronary Artery Disease (CAD), Hyperlipidemia Additional Family Medical History / Comment(s): Mother at age 85 from lung cancer. Father Family Medical History: Cancer, COPD Additional Family Medical History / Comment(s): Father at age 63 from lung cancer. Brother(s) Additional Family Medical History / Comment(s): Patient has a total of 7 siblings. 5 are alive without any major medical problems she is aware of. 2 siblings have one from alcohol abuse and 1. Coronary artery disease. Daughter(s) Additional Family Medical History / Comment(s): Patient has one daughter with no major medical problems. General Exam - General Exam Comments Initial Comments: GENERAL: Patient is well-developed and well-nourished. Patient is nontoxic and well- hydrated and is in mild distress. ENT: Neck is soft and supple. No significant lymphadenopathy is noted. Oropharynx is clear. Moist mucous membranes. Neck has full range of motion without eliciting any pain. EYES: The sclera were anicteric and conjunctiva were pink and moist. Extraocular movements were intact and pupils were equal round and reactive to light. Eyelids were unremarkable. PULMONARY: Unlabored respirations. Good breath sounds bilaterally. No audible rales rhonchi or wheezing was noted. CARDIOVASCULAR: There is a regular rate and rhythm without any murmurs gallops or rubs. ABDOMEN: Soft and nontender with normal bowel sounds. SKIN: Skin is clear with no lesions or rashes and otherwise unremarkable. NEUROLOGIC: Patient is alert and oriented x3. Cranial nerves II through XII are grossly intact. Motor and sensory are also intact. Normal speech, volume and content. Symmetrical smile. MUSCULOSKELETAL: Normal extremities with adequate strength and full range of motion. LYMPHATICS: No significant lymphadenopathy is noted PSYCHIATRIC: Normal psychiatric evaluation. Course Vital Signs 12/03/23 10:38 Temperature 97.8 F Pulse Rate 92 Respiratory 20 Rate Blood Pressure 143/93 O2 Sat by Pulse 99 Oximetry Medical Decision Making - Medical Decision Making EKG is interpreted by myself. EKG shows sinus rhythm at 90 bpm OH interval is on a 48 QRS is 94 QT interval 358 QTC is 45. Patient's EKG shows no ST segment elevation or depression. Was pt. sent in by a medical professional or institution (, PA, MANAGER TR[employer] MARKET[employer], urgent care, hospital, or longterm...) When possible be specific @ -No Did you speak to anyone other than the patient for history (EMS, parent, family, police, friend...)? What history was obtained from this source @ -No Did you review nursing and triage notes (agree or disagree)? Why? @ -I reviewed and agree with nursing and triage notes Were old charts reviewed (outside hosp., previous admission, EMS record, old EKG, old radiological studies, urgent care reports/EKG's, longterm records)? Report findings @ -No old charts were reviewed Differential Diagnosis (chest pain, altered mental status, abdominal pain women, abdominal pain men, vaginal bleeding, weakness, fever, dyspnea, syncope, headache, dizziness, GI bleed, back pain, seizure, CVA, palpatations, mental health, musculoskeletal)? @ -Differential Mental Health Depression, anxiety, bipolar, psychosis, schizophrenia, borderline personality, situational depression, adjustment disorder, behavioral disorder, brain tumor, malingering, substance abuse, encephalopathy, medication reaction, dementia, hypothyroidism, degenerative neurologic disorder, lupus.... This is not meant to be all-inclusive list EKG interpreted by me (3pts min.). @ -As above X-rays interpreted by me (1pt min.). @ -None done CT interpreted by me (1pt min.). @ -None done U/S interpreted by me (1pt. min.). @ -None done What testing was considered but not performed or refused? (CT, X-rays, U/S, labs)? Why? @ -None What meds were considered but not given or refused? Why? @ -None Did you discuss the management of the patient with other professionals (professionals i.e. , PA, MANA[employer], lab, RT, psych nurse, director social welfare, vice president of finance, teacher, planned giving officer, case management coordinator)? Give summary @ -No Was smoking cessation discussed for >3mins.? @ -No Was critical care preformed (if so, how long)? @ -No Were there social determinants of health that impacted care today? How? (Homelessness, low income, unemployed, alcoholism, drug addiction, trans portation, low edu. Level, literacy, decrease access to med. care, fci, rehab)? @ -No Was there de-escalation of care discussed even if they declined (Discuss DNR or withdrawal of care, Hospice)? DNR status @ -No What co-morbidities impacted this encounter? (DM, HTN, Smoking, COPD, CAD, Cancer, CVA, ARF, Chemo, Hep., AIDS, mental health diagnosis, sleep apnea, morbid obesity)? @ -None Was patient admitted / discharged? Hospital course, mention meds given and route, prescriptions, significant lab abnormalities, going to OR and other pertinent info. @ -Patient received some Ativan while in the emergency department she was feeling considerably better and she wanted to be discharged home. Prior to discharge did ask for something for her back pain which is chronic and she received Toradol and was feeling better. Undiagnosed new problem with uncertain prognosis? @ -No Drug Therapy requiring intensive monitoring for toxicity (Heparin, Nitro, Insulin, Cardizem)? @ -No Were any procedures done? @ -No Diagnosis/symptom? @ -Anxiety Acute, or Chronic, or Acute on Chronic? @ -Acute Uncomplicated (without systemic symptoms) or Complicated (systemic symptoms)? @ -Uncomplicated Side effects of treatment? @ -No Exacerbation, Progression, or Severe Exacerbation? @ -No Poses a threat to life or bodily function? How? (Chest pain, [place], [place], pneumonia, PE, COPD, DKA, ARF, appy, cholecystitis, CVA, Diverticulitis, Homicidal, Suicidal, threat to staff... and all critical care pts) @ -No - Lab Data Result diagrams: 12/03/23 12:00 12/03/23 12:00 Lab Results 12/03/23 12/03/23 12/03/23 Range/Units 12:00 12:00 12:00 WBC 10.3 (3.8-10.6) k/uL RBC 4.67 (3.80-5.40) m/uL Hgb 14.0 (11.4-16.0) gm/dL Hct 41.1 (34.0-46.0) % MCV 87.9 (80.0-100.0) fL MCH 29.9 (25.0-35.0) pg MCHC 34.0 (31.0-37.0) g/dL RDW 18.4 H (11.5-15.5) % Plt Count 224 (150-450) k/uL MPV 7.2 Neutrophils % 61 % Lymphocytes % 31 % Monocytes % 4 % Eosinophils % 1 % Basophils % 1 % Neutrophils # 6.3 (1.3-7.7) k/uL Lymphocytes # 3.2 (1.0-4.8) k/uL Monocytes # 0.4 (0-1.0) k/uL Eosinophils # 0.1 (0-0.7) k/uL Basophils # 0.1 (0-0.2) k/uL Anisocytosis Slight Sodium 143 (137-145) mmol/L Potassium 3.4 L (3.5-5.1) mmol/L Chloride 105 (98-107) mmol/L Carbon Dioxide 25 (22-30) mmol/L Anion Gap 13 mmol/L BUN 7 (7-17) mg/dL Creatinine 0.51 L (0.52-1.04) mg/dL Est GFR (CKD-EPI)AfAm >90 (>60 ml/min/1.73 sqM) Est GFR (CKD-EPI)NonAf >90 (>60 ml/min/1.73 sqM) Glucose 83 (74-99) mg/dL Calcium 8.7 (8.4-10.2) mg/dL Magnesium 1.9 (1.6-2.3) mg/dL Total Bilirubin 0.4 (0.2-1.3) mg/dL AST 45 H (14-36) U/L ALT 30 (4-34) U/L Alkaline Phosphatase 147 H (38-126) U/L Troponin I 0.018 (0.000-0.034) ng/mL Total Protein 6.9 (6.3-8.2) g/dL Albumin 4.1 (3.5-5.0) g/dL Disposition Clinical Impression: Acute anxiety, Chronic back pain Disposition: HOME SELF-CARE Instructions (If sedation given, give patient instructions): Generalized Anxiety Disorder (ED) Is patient prescribed a controlled substance at d/c from ED?: No Referrals: Miya Johnson MD [Primary Care Provider] - 1-2 days Time of Disposition: 13:49
[2023-12-03] MEDS ORDERED: LORazepam 1 MG TAB PO STA (11:23)
[2023-12-03 12:40] LABS: Anisocytosis Slight; Basophils # (A) 0.1 k/uL (0-0.2); Basophils % (A) 1 %; Eosinophils # (A) 0.1 k/uL (0-0.7); Eosinophils % (A) 1 %; HCT 41.1 % (34.0-46.0); Lymphocytes # (A) 3.2 k/uL (1.0-4.8); Lymphocytes % (A) 31 %; MCH 29.9 pg (25.0-35.0); MCV 87.9 fL (80.0-100.0); Mean Platelet Volume 7.2; Monocytes # (A) 0.4 k/uL (0-1.0); Monocytes % (A) 4 %; Neutrophils # (A) 6.3 k/uL (1.3-7.7); Neutrophils % (A) 61 %; Platelet Count 224 k/uL (150-450); RBC 4.67 m/uL (3.80-5.40); RDW 18.4 % (11.5-15.5); WBC 10.3 k/uL (3.8-10.6)
[2023-12-03 13:00] LABS: ALT 30 U/L (4-34); AST 45 U/L (14-36); African American GFR (CKD) >90 (>60 ml/min/1.73 sqM); Albumin 4.1 g/dL (3.5-5.0); Alkaline Phosphatase 147 U/L (38-126); Anion Gap 13 mmol/L; Blood Urea Nitrogen 7 mg/dL (7-17); Calcium 8.7 mg/dL (8.4-10.2); Carbon Dioxide 25 mmol/L (22-30); Chloride 105 mmol/L (98-107); Glucose 83 mg/dL (74-99); Magnesium 1.9 mg/dL (1.6-2.3); Non-African American GFR(CKD) >90 (>60 ml/min/1.73 sqM); Potassium 3.4 mmol/L (3.5-5.1); Sodium 143 mmol/L (137-145); Total Bilirubin 0.4 mg/dL (0.2-1.3); Total Protein 6.9 g/dL (6.3-8.2)
[2023-12-03] MEDS ORDERED: KETOROLAC 15 MG/ML 1 ML VIAL IVP STA (13:36)
[2023-12-03 14:18] VITALS: BP 136/93; PULSE 89; RESP 18; TEMP 97.1
== END 2023-12-03 14:20 | disposition home or self-care (01) ==
LOC: EC 10:36
DX: F41.9 Anxiety disorder, unspecified (principal); G89.29 Other chronic pain; M54.9 Dorsalgia, unspecified; I10 Essential (primary) hypertension; I25.10 Atherosclerotic heart disease of native coronary artery without angina pectoris; I25.2 Old myocardial infarction; J44.89 Other specified chronic obstructive pulmonary disease; F17.200 Nicotine dependence, unspecified, uncomplicated; Z79.51 Long term (current) use of inhaled steroids; Z79.82 Long term (current) use of aspirin; Z79.899 Other long term (current) drug therapy; Z88.5 Allergy status to narcotic agent; Z91.018 Allergy to other foods; Z91.040 Latex allergy status; Z88.7 Allergy status to serum and vaccine; Z86.73 Personal history of transient ischemic attack (TIA), and cerebral infarction without residual deficits
CPT/HCPCS: 36415; 80053; 83735; 84484; 85025; 93005; 99284

== ENCOUNTER 2023-12-04 19:59 | Observation (INO) | payer OTHER ==
[2023-12-04] MEDS ORDERED: LORazepam 1 MG TAB PO STA (20:32)
[2023-12-04] MEDS ORDERED: SODIUM CHLORIDE 0.9% 1,000 ML IV STA (20:32)
[2023-12-04 20:49] LABS: Anisocytosis Slight; Basophils # (A) 0.1 k/uL (0-0.2); Basophils % (A) 2 %; Eosinophils # (A) 0.1 k/uL (0-0.7); Eosinophils % (A) 1 %; HCT 39.3 % (34.0-46.0); HGB 13.1 gm/dL (11.4-16.0); Lymphocytes # (A) 2.2 k/uL (1.0-4.8); Lymphocytes % (A) 37 %; MCH 29.1 pg (25.0-35.0); MCHC 33.3 g/dL (31.0-37.0); MCV 87.4 fL (80.0-100.0); Mean Platelet Volume 7.5; Monocytes # (A) 0.4 k/uL (0-1.0); Monocytes % (A) 6 %; Neutrophils # (A) 3.1 k/uL (1.3-7.7); Neutrophils % (A) 52 %; Platelet Count 186 k/uL (150-450); RDW 18.2 % (11.5-15.5)
[2023-12-04 21:02] LABS: Prothrombin Time 11.3 sec (10.0-12.5)
[2023-12-04 21:04] LABS: ALT 29 U/L (4-34); AST 50 U/L (14-36); African American GFR (CKD) >90 (>60 ml/min/1.73 sqM); Alkaline Phosphatase 133 U/L (38-126); Anion Gap 14 mmol/L; Blood Urea Nitrogen 6 mg/dL (7-17); Calcium 8.6 mg/dL (8.4-10.2); Carbon Dioxide 22 mmol/L (22-30); Chloride 100 mmol/L (98-107); Glucose 131 mg/dL (74-99); Magnesium 1.8 mg/dL (1.6-2.3); Non-African American GFR(CKD) >90 (>60 ml/min/1.73 sqM); Potassium 3.3 mmol/L (3.5-5.1); Sodium 136 mmol/L (137-145); Total Bilirubin 0.6 mg/dL (0.2-1.3); Total Protein 6.7 g/dL (6.3-8.2)
[2023-12-04 21:12] LABS: NT-Pro-B-Type Natriuretic Pept 106 pg/mL; Partial Thromboplastin Time 20.2 sec (22.0-30.0)
--- NOTE | 2023-12-04 21:15 | XR ---
EXAMINATION TYPE: XR chest 2V DATE OF EXAM: 12/04/2023 9:00 PM CLINICAL INDICATION:Female, 63 years old with history of difficulty breathing; COMPARISON: Chest radiographs from 11/17/2023 TECHNIQUE: XR chest 2V Frontal and lateral views of the chest. FINDINGS: Lungs/Pleura: There is no evidence of pleural effusion, focal consolidation, or pneumothorax. Pulmonary vascularity: Unremarkable. Heart/mediastinum: Cardiomediastinal silhouette is unremarkable. Musculoskeletal: No acute osseous pathology. IMPRESSION: No acute cardiopulmonary disease/process.
[2023-12-04] MEDS ORDERED: ASPIRIN 81 MG PO STA (23:18)
[2023-12-04] MEDS ORDERED: POTASSIUM CHLORIDE ER 20 MEQ TAB.ER PO STA (23:20)
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
[2023-12-04 23:44] LABS: Appearance,Urine Clear (Clear); Bilirubin,Urine Negative (Negative); Blood,Urine Negative (Negative); Color,Urine Colorless; Glucose,Urine (UA) Negative (Negative); Ketones,Urine Negative (Negative); Leukocyte Esterase,Urine Negative (Negative); Nitrite,Urine Negative (Negative); Protein,Urine Negative (Negative); Urobilinogen,Urine <2.0 mg/dL (<2.0)
[2023-12-04] MEDS ORDERED: METOPROLOL SUCCINATE (ER) 50 MG TAB.ER.24H PO SCH (23:45)
[2023-12-04] MEDS ORDERED: ISOSORBIDE MONONITRATE ER 30 MG TAB.ER.24H PO SCH (23:45)
[2023-12-04] MEDS ORDERED: AMOXIC-POT CLAV 875-125MG 1 EACH TAB PO SCH (23:45)
--- NOTE | 2023-12-04 23:45 | CT ---
EXAM: CT Angiography Chest With Intravenous Contrast CLINICAL HISTORY: ITS.REASON CT Reason: eval for PE TECHNIQUE: Axial computed tomographic angiography images of the chest with intravenous contrast. CTDI is 17.2 mGy and DLP is 433.7 mGy-cm. This CT exam was performed using one or more of the following dose reduction techniques: automated exposure control, adjustment of the mA and/or kV according to patient size, and/or use of iterative reconstruction technique. MIP reconstructed images were created and reviewed. COMPARISON: 05/20/2020 FINDINGS: Pulmonary arteries: Unremarkable. No CT evidence of pulmonary embolism. Aorta: No acute findings. No thoracic aortic aneurysm. Lungs: Unremarkable. No mass. No consolidation. Pleural space: Unremarkable. No significant effusion. No pneumothorax. Heart: Unremarkable. No cardiomegaly. No significant pericardial effusion. No evidence of RV dysfunction. Bones/joints: Mild L1 compression fracture which is favored to be chronic. No dislocation. Soft tissues: Unremarkable. Lymph nodes: Unremarkable. No enlarged lymph nodes. Liver: Nodular liver. Question cirrhosis. 0.7 cm low density in the periphery of the right lobe the liver most consistent with a simple cyst. IMPRESSION: 1. No CT evidence of pulmonary embolism. 2. Nodular liver. Question cirrhosis.
[2023-12-04] MEDS ORDERED: NALOXONE 0.4 MG/ML 1 ML VIAL IV PRN (23:55)
[2023-12-04] MEDS ORDERED: FLUTICASONE 50MCG/SPRAY NASAL 16GM EA NOSTRIL PRN (23:56)
[2023-12-04] MEDS ORDERED: ALBUTEROL HFA INHALER INHALATION PRN (23:56)
[2023-12-05] MEDS: THIAMINE 100 MG TAB PO SCH ×2 (00:43→22:10)
[2023-12-05] MEDS: TICAGRELOR 90 MG TAB PO SCH ×2 (00:43→22:09)
[2023-12-05] MEDS: ATORVASTATIN 20 MG TAB PO SCH ×2 (00:44→22:09)
[2023-12-05] MEDS: MULTIVITAMINS, THERA 1 EACH TAB PO SCH ×2 (00:58→22:08)
[2023-12-05] MEDS: ONDANSETRON ODT 4 MG TAB PO PRN ×2 (02:58→11:17)
[2023-12-05 03:50] LABS: African American GFR (CKD) >90 (>60 ml/min/1.73 sqM); Anion Gap 7 mmol/L; Blood Urea Nitrogen 5 mg/dL (7-17); Calcium 7.9 mg/dL (8.4-10.2); Carbon Dioxide 27 mmol/L (22-30); Chloride 106 mmol/L (98-107); Glucose 109 mg/dL (74-99); Non-African American GFR(CKD) >90 (>60 ml/min/1.73 sqM); Potassium 2.9 mmol/L (3.5-5.1); Sodium 140 mmol/L (137-145)
[2023-12-05 03:57] LABS: Anisocytosis Slight; Basophils # (A) 0.1 k/uL (0-0.2); Basophils % (A) 3 %; Eosinophils # (A) 0.1 k/uL (0-0.7); Eosinophils % (A) 2 %; HCT 35.3 % (34.0-46.0); HGB 11.9 gm/dL (11.4-16.0); Lymphocytes # (A) 1.8 k/uL (1.0-4.8); Lymphocytes % (A) 40 %; MCH 29.4 pg (25.0-35.0); MCHC 33.6 g/dL (31.0-37.0); MCV 87.5 fL (80.0-100.0); Mean Platelet Volume 7.6; Monocytes # (A) 0.2 k/uL (0-1.0); Monocytes % (A) 5 %; Neutrophils # (A) 2.2 k/uL (1.3-7.7); Neutrophils % (A) 48 %; Platelet Count 138 k/uL (150-450); RBC 4.04 m/uL (3.80-5.40); RDW 18.3 % (11.5-15.5); WBC 4.5 k/uL (3.8-10.6)
[2023-12-05] MEDS ORDERED: LORazepam 2 MG/ML INJ IV PRN ×3 (05:17)
[2023-12-05] MEDS ORDERED: THIAMINE 100 MG/ML 2 ML VIAL IM STA (05:17)
[2023-12-05] MEDS ORDERED: Potassium Replacement Protocol 1 EACH MISC MISCELLANE PRN (05:37)
[2023-12-05] MEDS: POTASSIUM CHLORIDE 10 MEQ in WATER FOR INJECTION 1 100ML.BAG IVPB SCH ×6 (05:49→14:20)
[2023-12-05] MEDS: SYMBICORT 160-4.5 MCG INHALER INHALATION SCH ×2 (08:05→20:41)
[2023-12-05] MEDS: ALBUTEROL NEBULIZED 2.5 MG/3 ML INHALATION PRN ×3 (08:05→20:41)
[2023-12-05] MEDS: PANTOPRAZOLE 40 MG TABLET PO SCH (08:18)
[2023-12-05] MEDS ORDERED: METOPROLOL SUCCINATE (ER) 50 MG TAB.ER.24H PO STA (11:41)
--- NOTE | 2023-12-05 11:46 | P.CRDCN ---
History of Present Illness Consult date: 12/05/23 Consult reason: chest pain (History of ASCAD) History of present illness: History of present illness: This is a 63-year-old female with past medical history of coronary artery disease with chronic total occlusion of the right coronary artery, mild to moderate mitral regurgitation, history of recurrent CVAs status post left carotid stenting, tobacco use, hypertension, hyperlipidemia, alcohol abuse, cirrhosis of the liver. We have been asked to evaluate the patient for acute chest pain with history of ASCAD. Patient initially presented to the hospital on 12/03 due to increased anxiety thinking that her neighbor was trying to kill her. She again returned on 12/04 complaining of chest pain and shortness of breath. She states the chest pain shortness of breath been going on for 2 days like somebody is sitting on her chest. She states that occurs when her heart rate goes up and it radiates to her left shoulder left side of her neck and left shoulder blade. She also complains of a mucousy cough. No shortness of breath at this time and no chest pain at this time. Patient has not had any recent stress testing. EKG sinus rhythm with ST changes in the inferior lateral leads possibly secondary to LVH. EKG compared to old with same findings Chest x-ray: No acute process. CTA of the chest negative for pulmonary embolism. Nodular liver with possible cirrhosis. WBC 5.4, hemoglobin 11.9, platelet count 138. Sodium 140, potassium 2.9 and in process of being replaced. BUN 5 creatinine 0.49. Troponins negative x 3. proBNP 106. Urinalysis negative. Serum alcohol 197. Home cardiac medications: Aspirin 81 mg daily, Imdur 30 mg at bedtime, Toprol-XL 50 mg at bedtime, Nitrostat as needed, simvastatin 40 mg at bedtime, Brilinta 90 mg at bedtime. Cardiac catheterization performed 02/06/[address] Veena Howard revealed chronic tota l occlusion of the right coronary artery. No significant obstructive coronary artery disease involving the LAD which is where the stress test was abnormal. Echocardiogram performed 01/15/2023 revealed normal left ventricular ejection fraction 55 to 60%, mild increased left ventricular wall thickness. Mild mitral regurgitation, mild mitral annular calcification. Small pericardial effusion without tamponade. Review Of Systems: At the time of my evaluation: Constitutional: No fever, no chills. No weakness, fatigue or lethargy. EENT: No headache. No dizziness. Lungs: No shortness of breath, cough, no sputum production. No wheezing. Cardiovascular: No chest pain, no lower extremity edema. No palpitations. No paroxysmal nocturnal dyspnea. No orthopnea. No lightheadedness or dizziness. No syncopal episodes. Abdominal: No abdominal pain. No nausea, vomiting. No diarrhea. No consti pation. No bloody or tarry stools. Genitourinary: No dysuria.. No urinary retention. Musculoskeletal: No myalgias. No muscle weakness, no frequent falls. No back pain. No neck pain. Integumentary: No wounds. No rash. No unusual bruising. Neurologic: No aphasia. No facial droop. No change in mentation. No head injury. No headache. Physical examination: Gen: This is a 63-year-old female appears to be in no acute distress VS: reviewed HEENT: Head is atraumatic, normocephalic. Pupils equal, round. Sclerae is anicteric. NECK: Supple. No JVD. . LUNGS: Clear to auscultation. No wheezes or rhonchi. No intercostal retractions. HEART: Regular rate and rhythm. No murmur. ABDOMEN: Soft No tenderness. EXTREMITIES: No pedal edema. No calf tenderness. NEUROLOGICAL: Patient is awake, alert and oriented x3. Assessment: Atypical chest pain, acute coronary syndrome ruled out Possible unstable angina in a patient with known history of coronary artery disease Alcohol intoxication Hypokalemia Mild to moderate mitral regurgitation History of CVAs History of carotid stenosis status post left carotid stenting Hypertension Hyperlipidemia Tobacco use and dependence Plan: Resume patient's home cardiac medications Increase Imdur to 60 mg daily Increase metoprolol to succinate to 100 mg at bedtime, 50 mg to be given now Obtain magnesium level Monitor potassium level and replace accordingly Plan for medical management of chest pain and once otherwise stable from alcohol intoxication, patient will be scheduled for stress testing Obtain 2-D echocardiogram and Doppler study to assess cardiac structure and function Further recommendations to follow based upon clinical course Thank you kindly for this consultation. Nurse practitioner note has been reviewed, I agree with documented findings and plan of care. Patient was seen and examined. Past Medical History Past Medical History: Asthma, Coronary Artery Disease (CAD), COPD, CVA/TIA, Eye Disorder, Hypertension, Liver Disease, Myocardial Infarction (MS), Seizure Disorder, Vascular Disorder Additional Past Medical History / Comment(s): Pt recently admitted to [facility] for diarrhea, ETOH abuse. 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 soon Last Myocardial Infarction Date:: aug 2018 History of Any Multi-Drug Resistant Organisms: None Reported Past Surgical History: Cholecystectomy, Heart Catheterization, Orthopedic Surgery Additional Past Surgical History / Comment(s): L caratid stent, bilateral knee surgeries for tendon repair, bartholian cyst removed bilateral wrists, cataracts Past Anesthesia/Blood Transfusion Reactions: Motion Sickness Additional Past Anesthesia/Blood Transfusion Reaction / Comment(s): Pt has received blood without reaction. Past Psychological History: Anxiety, Depression Smoking Status: Current every day smoker Past Alcohol Use History: Abuse, Daily, Heavy - Past Family History Mother Family Medical History: Cancer, Congestive Heart Failure (CHF), Coronary Artery Disease (CAD), Hyperlipidemia Additional Family Medical History / Comment(s): Mother at age 85 from lung cancer. Father Family Medical History: Cancer, COPD Additional Family Medical History / Comment(s): Father at age 63 from lung cancer. Brother(s) Additional Family Medical History / Comment(s): Patient has a total of 7 siblings. 5 are alive without any major medical problems she is aware of. 2 siblings have one from alcohol abuse and 1. Coronary artery disease. Daughter(s) Additional Family Medical History / Comment(s): Patient has one daughter with no major medical problems. Medications and Allergies Home Medications Medication Instructions Recorded Confirmed Type Aspirin EC [Ecotrin Low Dose] 81 mg PO HS 02/11/19 12/04/23 History Metoprolol Succinate (ER) [Toprol 50 mg PO HS 06/13/21 12/04/23 History XL] Fluticasone Nasal [place] [Flonase 1 spr EA NOSTRIL DAILY PRN 02/14/22 12/04/23 History Nasal [place]] Simvastatin [Zocor] 40 mg PO HS 07/03/22 12/04/23 History Isosorbide Mononitrate ER [Imdur] 30 mg PO HS 11/10/22 12/04/23 History Ticagrelor [Brilinta] 90 mg PO HS 01/14/23 12/04/23 History Albuterol Inhaler [Ventolin Hfa 2 puff INHALATION RT-QID PRN 30 01/22/23 12/04/23 Rx Inhaler] Days #1 each Nitroglycerin Sl Tabs [Nitrostat] 0.4 mg SL Q5M PRN 02/06/23 12/04/23 History Albuterol Nebulized [Ventolin 2.5 mg INHALATION RT-QID PRN 05/17/23 12/04/23 History Nebulized] Folic Acid-Vit B Complex-Vit C 1 cap PO HS 05/23/23 12/04/23 History [Nephrocaps] Ondansetron Odt [Zofran ODT] 4 mg PO Q8HR PRN #15 tab 06/19/23 12/04/23 Rx Budesonide/Formoterol Fumarate 2 puff INHALATION RT-BID 07/29/23 12/04/23 History [Symbicort 160-4.5 Mcg Inhaler] Amoxic-Pot Clav 875-125Mg 1 tab PO BID 12/04/23 12/04/23 History [Augmentin 875-125] Ibuprofen [Motrin Ib] 400 - 600 mg PO Q6H PRN 12/04/23 12/04/23 History Multivitamin [Multivitamins Adult 2 tab PO HS 12/04/23 12/04/23 History Gummies] Thiamine [Vitamin B-1] 100 mg PO 12/04/23 12/04/23 History Allergies Allergy/AdvReac Type Severity Reaction Status Date / Time [place]way And Derivatives Allergy Rash/Hives Verified 12/04/23 20:57 [Northway] latex Allergy Rash/Hives Verified 12/04/23 20:57 tomato Allergy Diarrhea Verified 12/04/23 20:57 Influenza Virus Vaccines AdvReac Nausea & Verified 12/04/23 20:57 Vomiting morphine AdvReac Nausea & Verified 12/04/23 20:57 Vomiting Physical Exam Vitals: Vital Signs Temp Pulse Resp BP Pulse Ox 12/05/23 06:00 83 20 143/83 95 12/05/23 04:00 88 18 103/77 94 L 12/05/23 02:00 85 20 116/82 95 12/05/23 00:04 90 18 111/80 97 12/04/23 20:11 98.0 F 80 18 102/79 99 Intake and Output 12/04/23 12/05/23 12/05/23 22:59 06:59 14:59 Other: Weight 75.75 kg Results 12/05/23 03:22 12/05/23 03:22 Cardiac Enzymes 12/04/23 12/04/23 12/05/23 Range/Units 20:40 20:40 00:21 AST 50 H (14-36) U/L Troponin I 0.023 0.028 (0.000-0.034) ng/mL 12/05/23 Range/Units 03:22 AST (14-36) U/L Troponin I 0.031 (0.000-0.034) ng/mL Coagulation 12/04/23 Range/Units 20:40 PT 11.3 (10.0-12.5) sec APTT 20.2 L (22.0-30.0) sec CBC 12/04/23 12/05/23 Range/Units 20:40 03:22 WBC 6.0 4.5 (3.8-10.6) k/uL RBC 4.50 4.04 (3.80-5.40) m/uL Hgb 13.1 11.9 (11.4-16.0) gm/dL Hct 39.3 35.3 (34.0-46.0) % Plt Count 186 138 L (150-450) k/uL Comprehensive Metabolic Panel 12/04/23 12/05/23 Range/Units 20:40 03:22 Sodium 136 L 140 (137-145) mmol/L Potassium 3.3 L 2.9 L (3.5-5.1) mmol/L Chloride 100 106 (98-107) mmol/L Carbon Dioxide 22 27 (22-30) mmol/L BUN 6 L 5 L (7-17) mg/dL Creatinine 0.47 L 0.49 L (0.52-1.04) mg/dL Glucose 131 H 109 H (74-99) mg/dL Calcium 8.6 7.9 L (8.4-10.2) mg/dL AST 50 H (14-36) U/L ALT 29 (4-34) U/L Alkaline Phosphatase 133 H (38-126) U/L Total Protein 6.7 (6.3-8.2) g/dL Albumin 4.0 (3.5-5.0) g/dL Current Medications Generic Name Dose Route Start Last Admin Trade Name Freq PRN Reason Stop Dose Admin Albuterol Sulfate 2.5 mg 12/04/23 23:56 Albuterol Nebulized 2.5 Mg/3 Ml INHALATION RT-QID PRN Shortness Of Breath Aspirin 81 mg 12/05/23 21:00 Aspirin 81 Mg PO HS MAGY Atorvastatin Calcium 20 mg 12/04/23 23:45 12/05/23 00:44 Atorvastatin 20 Mg Tab PO 20 mg HS MAGY Administration Budesonide/Formoterol Fumarate 2 puff 12/05/23 08:00 Symbicort 160-4.5 Mcg Inhaler INHALATION RT-BID MAGY Fluticasone Propionate 1 spray 12/04/23 23:56 Fluticasone 50mcg/[place] Nasal 16gm EA NOSTRIL DAILY PRN Allergy Symptoms Potassium Chloride 10 meq/ IV 100 mls @ 100 mls/hr 12/05/23 06:00 12/05/23 07:10 Solution IVPB 12/05/23 11:59 100 mls/hr Q1HR MAGY Administration Protocol Isosorbide Mononitrate 30 mg 12/04/23 23:45 12/05/23 00:42 Isosorbide Mononitrate Er 30 Mg Tab.Er.24h PO 30 mg HS MAGY Administration Lorazepam 1 mg 12/05/23 05:17 Lorazepam 2 Mg/Ml Inj IV Q1HR PRN CIWA 10 to 15 Lorazepam 1 mg 12/05/23 05:17 12/05/23 05:25 Lorazepam 2 Mg/Ml Inj IV 1 mg Q2HR PRN Administration CIWA 8 or 9 Lorazepam 2 mg 12/05/23 05:17 Lorazepam 2 Mg/Ml Inj IV 12/07/23 05:17 Q10M PRN CIWA 16 or higher Metoprolol Succinate 50 mg 12/04/23 23:45 12/05/23 00:43 Metoprolol Succinate (Er) 50 Mg Tab.Er.24h PO 50 mg HS MAGY Administration Miscellaneous Information 1 each 12/05/23 05:37 Potassium Replacement Protocol 1 Each Misc MISCELLANE DAILY PRN Per Protocol Protocol Multivit/Ca Carb/B Cmplx/FA/Prenat 1 each 12/05/23 21:00 Folic Acid-Vit B Complex-Vit C 1 Cap PO HS [facility] Multivitamins 1 each 12/04/23 23:45 12/05/23 00:58 Multivitamins, Thera 1 Each Tab PO 1 each HS MAGY Administration Naloxone HCl 0.2 mg 12/04/23 23:55 Naloxone 0.4 Mg/Ml 1 Ml Vial IV Q2M PRN Opioid Reversal Ondansetron HCl 4 mg 12/04/23 23:56 12/05/23 02:58 Ondansetron Odt 4 Mg Tab PO 4 mg Q8HR PRN Administration Nausea And Vomiting Thiamine HCl 100 mg 12/04/23 23:45 12/05/23 00:43 Thiamine 100 Mg Tab PO 100 mg HS MAGY Administration Thiamine HCl 100 mg 12/06/23 09:00 Thiamine 100 Mg Tab PO DAILY MAGY Ticagrelor 90 mg 12/04/23 23:45 12/05/23 00:43 Ticagrelor 90 Mg Tab PO 90 mg HS MAGY Administration Intake and Output 12/04/23 12/05/23 12/05/23 22:59 06:59 14:59 Other: Weight 75.75 kg 12/05/23 03:22 12/05/23 03:22
--- NOTE | 2023-12-05 12:57 | CA ---
Transthoracic Echo Report Name: Anna Marie Valladares Age: 63 Gender: F : 1960 Exam Date: 12/05/2023 10:17 Exam Location: [facility] Ht (in): 62 Wt (lb): 167 Ordering Physician: Gladis Vieyra Attending/Referring Phys: [id number], [employer] [facility] Director Arianna Adamson RDCS Procedure CPT: Indications: LVF Cardiac Hx: Technical Quality: Fair Contrast 1: Total Dose (mL): Contrast 2: Total Dose (mL): MEASUREMENTS (Male / Female) Normal Values 2D ECHO LV Diastolic Diameter PLAX 4.1 cm 4.2 - 5.9 / 3.9 - 5.3 cm LV Systolic Diameter PLAX 2.9 cm IVS Diastolic Thickness 1.6 cm 0.6 - 1.0 / 0.6 - 0.9 cm LVPW Diastolic Thickness 1.4 cm 0.6 - 1.0 / 0.6 - 0.9 cm LV Relative Wall Thickness 0.7 RV Internal Dim ED PLAX 3.0 cm LA Volume 71.3 cm??? 18 - 58 / 22 - 52 cm??? LA Volume Index 38.6 cm???/m??? 16 - 28 cm???/m??? M-MODE Aortic Root Diameter MM 2.7 cm LA Systolic Diameter MM 4.6 cm LA Ao Ratio MM 1.7 DOPPLER AV Peak Velocity 189.8 cm/s AV Peak Gradient 14.4 mmHg AV Mean Velocity 131.5 cm/s AV Mean Gradient 7.7 mmHg AV Velocity Time Integral 35.5 cm LVOT Peak Velocity 92.1 cm/s LVOT Peak Gradient 3.4 mmHg LVOT Velocity Time Integral 18.9 cm MV Area PHT 5.5 cm??? Mitral E Point Velocity 74.8 cm/s Mitral A Point Velocity 118.4 cm/s Mitral E to A Ratio 0.6 MV Deceleration Time 138.7 ms MV E' Velocity 6.6 cm/s Mitral E to MV E' Ratio 11.3 TR Peak Velocity 164.7 cm/s TR Peak Gradient 10.8 mmHg Right Ventricular Systolic Press 15.4 mmHg FINDINGS Left Ventricle Moderately increased left ventricular wall thickness. Left ventricular cavity size normal. Low normal left ventricular systolic function with no obvious regional wall motion abnormalities. Left ventricular ejection fraction is estimated at 50 %. Right Ventricle Normal right ventricular size and function. Right ventricular systolic pressure within normal limits. Right Atrium Normal right atrial size. Left Atrium Moderately increased left atrial volume. Mildly increased left atrial area. Mitral Valve Structurally normal mitral valve. Mild mitral annular calcification. Mild mitral regurgitation. Aortic Valve No aortic valve stenosis or regurgitation. Tricuspid Valve Structurally normal tricuspid valve. Mild tricuspid regurgitation. Pulmonic Valve Structurally normal pulmonic valve. Pericardium Prominent pericardial effusion. Prominent epicardial fat. Aorta Normal size aortic root and proximal ascending aorta. CONCLUSIONS Low-normal LV systolic function. The EF is a 50% Mitral annular calcification Prominent pericardial fat Previewed by: Dr. Parish Kay MD (Electronically Signed) Final Date: 05 December 2023 12:56
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
[2023-12-05] MEDS ORDERED: cloNIDine HCL 0.1 MG TAB PO STA (18:44)
[2023-12-05] MEDS: METOPROLOL SUCCINATE (ER) 100 MG TAB.ER.24H PO SCH (22:08)
[2023-12-05] MEDS: ISOSORBIDE MONONITRATE ER 60 MG TAB.ER.24H PO SCH (22:09)
[2023-12-05] MEDS: ASPIRIN 81 MG PO SCH (22:10)
[2023-12-05] MEDS: FOLIC ACID-VIT B COMPLEX-VIT C 1 CAP PO SCH (22:10)
[2023-12-06] MEDS: PANTOPRAZOLE 40 MG TABLET PO SCH (06:12)
[2023-12-06] MEDS: THIAMINE 100 MG TAB PO SCH (08:08)
[2023-12-06 08:52] LABS: BUN/Creat Ratio <7.00 Ratio (12.00-20.00); Blood Urea Nitrogen <3.5 mg/dL (9.0-27.0); Calcium 8.3 mg/dL (8.7-10.3); Carbon Dioxide 25.4 mmol/L (21.6-31.8); Chloride 102 mmol/L (96-109); Glucose 117 mg/dL (70-110); Potassium 2.9 mmol/L (3.5-5.5); Sodium 140 mmol/L (135-145)
[2023-12-06] MEDS: ALBUTEROL NEBULIZED 2.5 MG/3 ML INHALATION PRN ×2 (09:35→12:32)
[2023-12-06] MEDS: SYMBICORT 160-4.5 MCG INHALER INHALATION SCH ×2 (09:35→16:10)
[2023-12-06] MEDS ORDERED: Potassium Replacement Protocol 1 EACH MISC MISCELLANE PRN (11:12)
[2023-12-06] MEDS: POTASSIUM CHLORIDE ER 20 MEQ TAB.ER PO SCH ×3 (12:23→14:58)
[2023-12-06] MEDS: NICOTINE 21MG/24HR PATCH TRANSDERM SCH (12:23)
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
[2023-12-06] MEDS: ASPIRIN 81 MG PO SCH (21:04)
[2023-12-06] MEDS: MULTIVITAMINS, THERA 1 EACH TAB PO SCH (21:04)
[2023-12-06] MEDS: ATORVASTATIN 20 MG TAB PO SCH (21:04)
[2023-12-06] MEDS: ISOSORBIDE MONONITRATE ER 60 MG TAB.ER.24H PO SCH (21:04)
[2023-12-06] MEDS: FOLIC ACID-VIT B COMPLEX-VIT C 1 CAP PO SCH (21:04)
[2023-12-06] MEDS: TICAGRELOR 90 MG TAB PO SCH (21:04)
[2023-12-06] MEDS: METOPROLOL SUCCINATE (ER) 100 MG TAB.ER.24H PO SCH (21:44)
[2023-12-07 01:40] VITALS: TEMP 97.9
[2023-12-07] MEDS: PANTOPRAZOLE 40 MG TABLET PO SCH (05:44)
[2023-12-07 08:40] VITALS: BP 134/82; PULSE 65; RESP 17
[2023-12-07] MEDS: SYMBICORT 160-4.5 MCG INHALER INHALATION SCH (09:19)
[2023-12-07] MEDS: THIAMINE 100 MG TAB PO SCH (09:41)
[2023-12-07] MEDS: NICOTINE 21MG/24HR PATCH TRANSDERM SCH (09:41)
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
[2023-12-07 11:33] LABS: ALT 16 U/L (8-44); AST 31 U/L (13-35); Albumin 3.7 g/dL (3.8-4.9); Albumin/Globulin Ratio 1.76 Ratio (1.60-3.17); Alkaline Phosphatase 105 U/L (41-126); Blood Urea Nitrogen 4.8 mg/dL (9.0-27.0); Calcium 9.2 mg/dL (8.7-10.3); Carbon Dioxide 23.2 mmol/L (21.6-31.8); Chloride 108 mmol/L (96-109); Globulin 2.1 g/dL (1.6-3.3); Glucose 112 mg/dL (70-110); Potassium 3.6 mmol/L (3.5-5.5); Sodium 143 mmol/L (135-145); Total Bilirubin 0.5 mg/dL (0.3-1.2); Total Protein 5.8 g/dL (6.2-8.2)
[2023-12-07 11:35] LABS: Basophils # (A) 0.09 X 10*3/uL (0.00-0.10); Eosinophils # (A) 0.13 X 10*3/uL (0.04-0.35); Eosinophils % (A) 2.9 %; HCT 32.3 % (37.2-46.3); HGB 10.6 g/dL (12.0-15.0); Immature Platelet Fraction 7.1 % (1.1-6.1); Lymphocytes % (A) 28.6 %; MCHC 32.8 g/dL (32.0-37.0); MCV 88.3 FL (80.0-97.0); Monocytes # (A) 0.24 X 10*3/uL (0.20-1.00); Monocytes % (A) 5.3 %; NRBC Per 100 WBC 0 X 10*3/uL (0.00-0.01); Neutrophils # (A) 2.78 X 10*3/uL (1.80-7.70); Platelet Count 73 X 10*3/uL (140-440); RBC 3.66 X 10*6/uL (4.10-5.20); RDW 18.5 % (11.5-14.5); WBC 4.55 X 10*3/uL (4.50-10.00)
[2023-12-07 11:36] LABS: Magnesium 1.5 mg/dL (1.6-2.3); Potassium 3.8 mmol/L (3.5-5.1)
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
[2023-12-07] MEDS: MAGNESIUM SULFATE-D5W PMX 1 GM in DEXTROSE/WATER 1 100ML.BAG IVPB SCH ×2 (12:13→14:11)
== END 2023-12-07 15:19 | disposition home or self-care (01) ==
LOC: EC 19:59 → 6NMEDSUR 23:56
PROVIDERS: ADMIT Hospitalist; ATTEND Hospitalist
DX: R07.89 Other chest pain (principal); F06.4 Anxiety disorder due to known physiological condition; F10.129 Alcohol abuse with intoxication, unspecified; Y90.6 Blood alcohol level of 120-199 mg/100 ml; I10 Essential (primary) hypertension; J44.9 Chronic obstructive pulmonary disease, unspecified; I69.351 Hemiplegia and hemiparesis following cerebral infarction affecting right dominant side; I25.10 Atherosclerotic heart disease of native coronary artery without angina pectoris; E87.6 Hypokalemia; I25.2 Old myocardial infarction; G40.909 Epilepsy, unspecified, not intractable, without status epilepticus; R19.7 Diarrhea, unspecified; F17.210 Nicotine dependence, cigarettes, uncomplicated; G89.29 Other chronic pain; E78.5 Hyperlipidemia, unspecified; I34.0 Nonrheumatic mitral (valve) insufficiency; I65.29 Occlusion and stenosis of unspecified carotid artery; I47.20 Ventricular tachycardia, unspecified; F32.A Depression, unspecified; Z79.51 Long term (current) use of inhaled steroids; Z79.02 Long term (current) use of antithrombotics/antiplatelets; Z79.82 Long term (current) use of aspirin; Z79.899 Other long term (current) drug therapy; Z88.5 Allergy status to narcotic agent; Z88.7 Allergy status to serum and vaccine; Z91.02 Food additives allergy status; Z91.040 Latex allergy status; Z82.49 Family history of ischemic heart disease and other diseases of the circulatory system; Z80.1 Family history of malignant neoplasm of trachea, bronchus and lung; Z82.5 Family history of asthma and other chronic lower respiratory diseases; Z81.1 Family history of alcohol abuse and dependence
CPT/HCPCS: 96376; 96361; 96365; 96366; 96375; 99285; 36415; 94640 ×5; 93005; 93306; 85379; 83880; 80053 ×2; 80048 ×2; 83735 ×3; 84132 ×2; 84484 ×2; 85025 ×3; 85610; 85730; 81003; 71046; 71275; G0378 ×3; G0480; S4990; J2060; J3475; J3480; Q9967; 80320

== ENCOUNTER 2023-12-18 22:34 | Inpatient (IN) | payer OTHER ==
--- NOTE | 2023-12-18 23:51 | XR ---
EXAM: XR Chest, 2 Views CLINICAL HISTORY: ITS.REASON XR Reason: Chest Pain TECHNIQUE: Frontal and lateral views of the chest. COMPARISON: No relevant prior studies available. FINDINGS: Lungs: Unremarkable. No consolidation. Pleural space: Unremarkable. No pneumothorax. Heart: Unremarkable. No cardiomegaly. Mediastinum: Unremarkable. Normal mediastinal contour. Bones/joints: Unremarkable. No acute fracture. IMPRESSION: No consolidation.
[2023-12-18 23:58] LABS: Anisocytosis Slight; Basophils # (A) 0.1 k/uL (0-0.2); Basophils % (A) 2 %; Eosinophils # (A) 0.1 k/uL (0-0.7); Eosinophils % (A) 1 %; HCT 42.5 % (34.0-46.0); HGB 14.1 gm/dL (11.4-16.0); Lymphocytes % (A) 39 %; MCHC 33.2 g/dL (31.0-37.0); MCV 90.3 fL (80.0-100.0); Monocytes # (A) 0.4 k/uL (0-1.0); Monocytes % (A) 7 %; Neutrophils # (A) 2.4 k/uL (1.3-7.7); Neutrophils % (A) 47 %; Platelet Count 147 k/uL (150-450); RBC 4.71 m/uL (3.80-5.40); RDW 18.3 % (11.5-15.5)
[2023-12-19 00:18] LABS: ALT 32 U/L (4-34); African American GFR (CKD) >90 (>60 ml/min/1.73 sqM); Albumin 4.3 g/dL (3.5-5.0); Anion Gap 13 mmol/L; Blood Urea Nitrogen 11 mg/dL (7-17); Calcium 8.5 mg/dL (8.4-10.2); Carbon Dioxide 24 mmol/L (22-30); Chloride 106 mmol/L (98-107); Glucose 123 mg/dL (74-99); Lipase 70 U/L (23-300); Non-African American GFR(CKD) >90 (>60 ml/min/1.73 sqM); Sodium 143 mmol/L (137-145); Total Bilirubin 0.5 mg/dL (0.2-1.3); Total Protein 7.4 g/dL (6.3-8.2)
[2023-12-19 00:27] LABS: AST 53 U/L (14-36); Alkaline Phosphatase 120 U/L (38-126); Potassium 3.7 mmol/L (3.5-5.1)
[2023-12-19 00:30] LABS: Alcohol 376 mg/dL
[2023-12-19 00:49] LABS: INR 1.1 (<1.2); Prothrombin Time 11.5 sec (10.0-12.5)
--- NOTE | 2023-12-19 01:25 | ED ---
Chest Pain HPI - General Chief Complaint: Chest Pain Stated Complaint: chest pain Time Seen by Provider: 12/18/23 22:40 Source: patient, EMS Mode of arrival: EMS Limitations: no limitations - History of Present Illness Initial Comments: 63-year-old female with past medical history of alcohol abuse, NC who presents emergency department reporting chest pain. States that the pain started this evening and is constant. Rates it as an 8 out of 10. States that it feels like a pressure sensation and makes it hard to breathe. Patient was here for same complaint. She does admit to drinking several shots before coming to the emergency department. - Related Data Home Medications Medication Instructions Recorded Confirmed Aspirin EC [Ecotrin Low Dose] 81 mg PO HS 02/11/19 12/19/23 Fluticasone Nasal [place] [Flonase 1 spr EA NOSTRIL DAILY PRN 02/14/22 12/19/23 Nasal [place]] Simvastatin [Zocor] 40 mg PO HS 07/03/22 12/19/23 Ticagrelor [Brilinta] 90 mg PO HS 01/14/23 12/19/23 Nitroglycerin Sl Tabs [Nitrostat] 0.4 mg SL Q5M PRN 02/06/23 12/19/23 Albuterol Nebulized [Ventolin 2.5 mg INHALATION RT-QID PRN 05/17/23 12/19/23 Nebulized] Folic Acid-Vit B Complex-Vit C 1 cap PO HS 05/23/23 12/19/23 [Nephrocaps] Budesonide/Formoterol Fumarate 2 puff INHALATION RT-BID 07/29/23 12/19/23 [Symbicort 160-4.5 Mcg Inhaler] Ibuprofen [Motrin Ib] 400 - 600 mg PO Q6H PRN 12/04/23 12/19/23 Multivitamin [Multivitamins Adult 2 tab PO HS 12/04/23 12/19/23 Gummies] Thiamine [Vitamin B-1] 100 mg PO HS 12/04/23 12/19/23 Previous Rx's Medication Instructions Recorded Albuterol Inhaler [Ventolin Hfa 2 puff INHALATION RT-QID PRN 30 01/22/23 Inhaler] Days #1 each Ondansetron Odt [Zofran ODT] 4 mg PO Q8HR PRN #15 tab 06/19/23 Isosorbide Mononitrate ER [Imdur] 60 mg PO HS 30 Days #30 tab 12/07/23 Metoprolol Succinate (ER) [Toprol 100 mg PO HS 30 Days #30 tab 12/07/23 XL] Pantoprazole [Protonix] 40 mg PO AC-BRKFST #30 tab 12/20/23 chlordiazePOXIDE HCl [Librium] 25 mg PO TID 3 Days #6 capsule 12/20/23 Allergies Allergy/AdvReac Type Severity Reaction Status Date / Time [place] And Derivatives Allergy Rash/Hives Verified 12/19/23 08:59 [[place]] latex Allergy Rash/Hives Verified 12/19/23 08:59 tomato Allergy Diarrhea Verified 12/19/23 08:59 Influenza Virus Vaccines AdvReac Nausea & Verified 12/19/23 08:59 Vomiting morphine AdvReac Nausea & Verified 12/19/23 08:59 Vomiting Review of Systems ROS Statement: Those systems with pertinent positive or pertinent negative responses have been documented in the HPI. ROS Other: All systems not noted in ROS Statement are negative. Past Medical History Past Medical History: Asthma, Coronary Artery Disease (CAD), COPD, CVA/TIA, Eye Disorder, Hypertension, Liver Disease, Myocardial Infarction (NC), Seizure Disorder, Vascular Disorder Additional Past Medical History / Comment(s): Pt recently admitted to [facility] for diarrhea, ETOH abuse. 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 soon Last Myocardial Infarction Date:: aug 2018 History of Any Multi-Drug Resistant Organisms: None Reported Past Surgical History: Cholecystectomy, Heart Catheterization, Orthopedic Surgery Additional Past Surgical History / Comment(s): L caratid stent, bilateral knee surgeries for tendon repair, bartholian cyst removed bilateral wrists, cataracts Past Anesthesia/Blood Transfusion Reactions: Motion Sickness Additional Past Anesthesia/Blood Transfusion Reaction / Comment(s): Pt has received blood without reaction. Past Psychological History: Anxiety, Depression Smoking Status: Current every day smoker Past Alcohol Use History: Abuse, Daily, Heavy Past Drug Use History: Marijuana - Past Family History Mother Family Medical History: Cancer, Congestive Heart Failure (CHF), Coronary Artery Disease (CAD), Hyperlipidemia Additional Family Medical History / Comment(s): Mother at age 85 from lung cancer. Father Family Medical History: Cancer, COPD Additional Family Medical History / Comment(s): Father at age 63 from lung cancer. Brother(s) Additional Family Medical History / Comment(s): Patient has a total of 7 siblings. 5 are alive without any major medical problems she is aware of. 2 siblings have one from alcohol abuse and 1. Coronary artery disease. Daughter(s) Additional Family Medical History / Comment(s): Patient has one daughter with no major medical problems. General Exam Limitations: no limitations General appearance: alert, appears intoxicated Head exam: Present: atraumatic, normocephalic, normal inspection Eye exam: Present: normal appearance, PERRL, EOMI. Absent: scleral icterus, conjunctival injection, periorbital swelling ENT exam: Present: normal exam, mucous membranes moist Neck exam: Present: normal inspection. Absent: tenderness, meningismus, lymphadenopathy Respiratory exam: Present: normal lung sounds bilaterally. Absent: respiratory distress, wheezes, rales, rhonchi, stridor Cardiovascular Exam: Present: regular rate, normal rhythm, normal heart sounds. Absent: systolic murmur, diastolic murmur, rubs, gallop, clicks GI/Abdominal exam: Present: soft, normal bowel sounds. Absent: distended, tenderness, guarding, rebound, rigid Extremities exam: Present: normal inspection, full ROM, normal capillary refill. Absent: tenderness, pedal edema, joint swelling, calf tenderness Back exam: Present: normal inspection Neurological exam: Present: alert, oriented X3, CN II-XII intact Psychiatric exam: Present: normal affect, normal mood Skin exam: Present: warm, dry, intact, normal color. Absent: rash Course Vital Signs 12/18/23 12/18/23 12/19/23 22:37 23:43 00:43 Temperature 97.9 F Pulse Rate 97 102 H 104 H Pulse Rate [ Left Supine Pulse Oximetery ] Respiratory 20 18 18 Rate Blood Pressure 134/93 117/94 113/83 Blood Pressure [Left Arm] O2 Sat by Pulse 94 L 95 94 L Oximetry 02/06/0412/19/23 12/19/23 01:43 02:00 03:00 Temperature Pulse Rate 104 H 104 H 98 Pulse Rate [ Left Supine Pulse Oximetery ] Respiratory 18 18 18 Rate Blood Pressure 108/76 111/90 111/92 Blood Pressure [Left Arm] O2 Sat by Pulse 94 L 95 94 L Oximetry 12/19/23 12/19/23 12/19/23 04:39 06:08 08:18 Temperature Pulse Rate 111 H 103 H 98 Pulse Rate [ Left Supine Pulse Oximetery ] Respiratory 18 18 22 Rate Blood Pressure 95/58 131/101 148/104 Blood Pressure [Left Arm] O2 Sat by Pulse 98 98 95 Oximetry 12/19/23 12/19/23 12/19/23 09:51 11:00 13:51 Temperature Pulse Rate 90 96 98 Pulse Rate [ Left Supine Pulse Oximetery ] Respiratory 20 20 20 Rate Blood Pressure 123/90 142/91 164/116 Blood Pressure [Left Arm] O2 Sat by Pulse 95 95 94 L Oximetry 12/19/23 15:00 Temperature 98 F Pulse Rate Pulse Rate [ 96 Left Supine Pulse Oximetery ] Respiratory 18 Rate Blood Pressure Blood Pressure 176/109 [Left Arm] O2 Sat by Pulse 95 Oximetry Chest Pain MDM - MDM Was pt. sent in by a medical professional or institution (, PA, [employer] J[employer]STER, urgent care, hospital, or jail...) When possible be specific @ -No Did you speak to anyone other than the patient for history (EMS, parent, family, police, friend...)? What history was obtained from this source @ -No Did you review nursing and triage notes (agree or disagree)? Why? @ -I reviewed and agree with nursing and triage notes Were old charts reviewed (outside hosp., previous admission, EMS record, old EKG, old radiological studies, urgent care reports/EKG's, jail records)? Report findings @ -I reviewed patient's discharge summary as patient was just discharged for this same complaint Differential Diagnosis (chest pain, altered mental status, abdominal pain women, abdominal pain men, vaginal bleeding, weakness, fever, dyspnea, syncope, headache, dizziness, GI bleed, back pain, seizure, CVA, palpatations, mental health, musculoskeletal)? @ -Differential Chest Pain: Stable Angina, Unstable Angina, STEMI, NSTEMI Aortic Dissection, Pneumothorax, Musculoskeletal, Esophageal Spasm GERD, Cholecystitis, Pancreatitis, Zoster, this is not meant to be an all-inclusive list. EKG interpreted by me (3pts min.). @ -Yes and demonstrates sinus rhythm with a rate of 89. IL interval 142. QRS 99. QTc of 403. ST depression 3 through V6 X-rays interpreted by me (1pt min.). @ -Yes and demonstrates no acute process CT interpreted by me (1pt min.). @ -None done U/S interpreted by me (1pt. min.). @ -None done What testing was considered but not performed or refused? (CT, X-rays, U/S, labs)? Why? @ -None What meds were considered but not given or refused? Why? @ -None Did you discuss the management of the patient with other professionals (professionals i.e. , PA, [employer] J[employer], lab, RT, psych nurse, social psychologist, intellectual property lawyer, teacher, hospital admissions officer, manager case management)? Give summary @ -Spoke with Tonya from [facility] for admission Was smoking cessation discussed for >3mins.? @ -No Was critical care preformed (if so, how long)? @ -No Were there social determinants of health that impacted care today? How? (Homelessness, low income, unemployed, alcoholism, drug addiction, transportation, low edu. Level, literacy, decrease access to med. care, group home, rehab)? @ -Chronic EtOH abuse Was there de-escalation of care discussed even if they declined (Discuss DNR or withdrawal of care, Hospice)? DNR status @ -No What co-morbidities impacted this encounter? (DM, HTN, Smoking, COPD, CAD, Cancer, CVA, ARF, Chemo, Hep., AIDS, mental health diagnosis, sleep apnea, morbid obesity)? @ -EtOH abuse Was patient admitted / discharged? Hospital course, mention meds given and route, prescriptions, significant lab abnormalities, going to OR and other pertinent info. @ -Upon arrival patient was placed into room 7. Thorough history and physical exam was performed. Twelve-lead EKG is obtained. Laboratory studies are conducted. Patient is intoxicated. She has no ride home. She is complaining of chest pain. Recommended admission for cardiac rule out and sobriety. Spoke with Tonya from [facility] who agreed to admit the patient Undiagnosed new problem with uncertain prognosis? @ -No Drug Therapy requiring intensive monitoring for toxicity (Heparin, Nitro, Insulin, Cardizem)? @ -No Were any procedures done? @ -No Diagnosis/symptom? @ -Acute chest pain, acute alcohol intoxication Acute, or Chronic, or Acute on Chronic? @ -Acute Uncomplicated (without systemic symptoms) or Complicated (systemic symptoms)? @ -Complicated Side effects of treatment? @ -No Exacerbation, Progression, or Severe Exacerbation? @ -No Poses a threat to life or bodily function? How? (Chest pain, [place], [place], pneumonia, PE, COPD, DKA, ARF, appy, cholecystitis, CVA, Diverticulitis, Homicidal, Suicidal, threat to staff... and all critical care pts) @ -No Disposition Clinical Impression: Chest pain, Alcohol intoxication Disposition: ADMITTED IP TO THIS HOSP Condition: Fair Is patient prescribed a controlled substance at d/c from ED?: No Time of Disposition: 01:40 Decision to Admit Reason: Admit from EC Decision Date: 12/19/23 Decision Time: 01:40
[2023-12-19] MEDS ORDERED: ACETAMINOPHEN TAB 325 MG TAB PO PRN (01:43)
[2023-12-19] MEDS ORDERED: NALOXONE 0.4 MG/ML 1 ML VIAL IV PRN (01:43)
[2023-12-19] MEDS ORDERED: LORazepam 2 MG/ML INJ IV PRN ×2 (01:44)
[2023-12-19] MEDS: ASPIRIN 81 MG PO STA (01:57)
[2023-12-19] MEDS: SODIUM CHLORIDE 0.9% 1,000 ML IV SCH (02:18)
[2023-12-19] MEDS: THIAMINE 100 MG/ML 2 ML VIAL IM STA (02:20)
[2023-12-19] MEDS: NITROGLYCERIN OINT 1 INCH/GM PACKET TOPICAL STA (02:20)
[2023-12-19] MEDS: IBUPROFEN 600 MG TAB PO STA (02:41)
[2023-12-19] MEDS: LORazepam 2 MG/ML INJ IV PRN (04:43)
[2023-12-19] MEDS: cloNIDine HCL 0.1 MG TAB PO STA (08:36)
[2023-12-19] MEDS ORDERED: ALBUTEROL HFA INHALER INHALATION PRN (13:26)
[2023-12-19] MEDS ORDERED: FLUTICASONE 50MCG/SPRAY NASAL 16GM EA NOSTRIL PRN (13:26)
[2023-12-19] MEDS: ONDANSETRON ODT 4 MG TAB PO PRN (13:53)
[2023-12-19] MEDS: cloNIDine HCL 0.1 MG TAB PO PRN (13:53)
[2023-12-19] MEDS ORDERED: ONDANSETRON 4 MG/2 ML VIAL IVP PRN (15:01)
[2023-12-19] MEDS: SYMBICORT 160-4.5 MCG INHALER INHALATION SCH (19:46)
[2023-12-19] MEDS: FOLIC ACID-VIT B COMPLEX-VIT C 1 CAP PO SCH (21:13)
[2023-12-19] MEDS: ATORVASTATIN 20 MG TAB PO SCH (21:13)
[2023-12-19] MEDS: ISOSORBIDE MONONITRATE ER 60 MG TAB.ER.24H PO SCH (21:13)
[2023-12-19] MEDS: ASPIRIN 81 MG PO SCH (21:13)
[2023-12-19] MEDS: TICAGRELOR 90 MG TAB PO SCH (21:14)
[2023-12-19] MEDS: METOPROLOL SUCCINATE (ER) 100 MG TAB.ER.24H PO SCH (21:14)
[2023-12-19] MEDS: MULTIVITAMINS, THERA 1 EACH TAB PO SCH (21:14)
--- NOTE | 2023-12-20 00:27 | HP ---
HISTORY AND PHYSICAL CHIEF COMPLAINT: Chest pain. HISTORY OF PRESENT ILLNESS: This 63-year-old woman with a past medical history of multiple medical conditions, asthma, COPD, history of liver disease, history of myocardial infarction, history of seizure disorder, anxiety, and depression, was complaining of chest pain as well as some shortness of breath. The patient came to [facility] and admitted for further evaluation and treatment. Pain was felt in the anterior part. It was 8/10 and the evaluation showed the troponins up to 0.222 and alcohol level was found to be 370. The patient was admitted for further evaluation and treatment. Cardiology consultation underway. There is no history of any fever, rigors, or chills. Currently, the patient is rather sedated, but able to be aroused and give a sketchy history. PAST MEDICAL HISTORY: Reviewed and include asthma, COPD, CVA, TIA, and EtOH. Rest of the history and rest of the chart are also reviewed. HOME MEDICATIONS: Reviewed and include Brilinta, dose and rest of medications reviewed. ALLERGIES: Latex. Rest of allergies noted. FAMILY HISTORY: History of CHF and CAD. Rest of the history noted. SOCIAL HISTORY: Alcohol abuse, heavy; THC. REVIEW OF SYSTEMS: A 14-point review is negative except as mentioned earlier. PHYSICAL EXAMINATION: VITAL SIGNS: Pulse is 98, blood pressure 148/104, respiration 20. HEENT: Conjunctivae normal. NECK: No JVD. CARDIOVASCULAR: S1, S2. RESPIRATIONS: Breath sounds diminished at the bases. Scattered rhonchi. ABDOMEN: Soft, obese. LEGS: No edema. NERVOUS SYSTEM: Nonfocal. SKIN: No ulcer, rash, bleeding. JOINTS: No active deforming arthropathy. LABORATORY DATA: Reviewed. ASSESSMENT: 1. Chest pain, possible unstable angina. 2. Acute alcohol intoxication. 3. History of asthma and chronic obstructive pulmonary disease. 4. History of coronary artery disease and myocardial infarction. 5. History of seizure disorder. 6. Hypertension. 7. History of chronic liver disease. 8. History of cerebrovascular accident. 9. Anxiety and depression. 10.Multiple complex medical issues. RECOMMENDATIONS: This 63-year-old woman presented with multiple complex medical issues. At this time, I recommend to continue the current management and symptomatic treatment. Cardiology consultation, rule out myocardial infarction. Otherwise, I would recommend resume the home medications. Monitor closely. CIWA protocol. Guarded prognosis because of multiple complex medical issues. Further recommendations to follow. See orders for details. Home medications will be resumed. I would recommend inpatient hospitalization with more than 2 nights because of the multiple complex medical issues listed above and the patient is rather drowsy and sedated and with extremely high alcohol level. MMKEREN / IJN: [id number] /
[2023-12-20] MEDS: PANTOPRAZOLE 40 MG TABLET PO SCH (06:30)
[2023-12-20 08:21] VITALS: BP 138/82; RESP 16; TEMP 98
--- NOTE | 2023-12-20 09:35 | P.CRDCN ---
History of Present Illness Consult date: 12/20/23 Consult reason: chest pain History of present illness: History of present illness: This is a 63-year-old female patient of Dr. Veena Howard with past medical history of coronary artery disease with chronic total occlusion of the right coronary artery, mild to moderate mitral regurgitation, history of recurrent CVAs status post left carotid stenting, tobacco use, hypertension, hyperlipidemia, alcohol abuse, cirrhosis of the liver. We have been asked to evaluate the patient for chest pain. Patient states that she developed chest pain that was brought on by anxiety. She states that her neighbor was going to kill her and this was the cause of her anxiety. She also had increased pain with deep breathing. She denies having shortness of breath and no wheezing. She denies having any dizziness no palpitation, no syncopal episodes. She states she has been nauseated without vomiting. No blood in her stool or urine. Patient presented to the emergency center with alcohol intoxication. She continues to smoke. EKG sinus rhythm Chest x-ray: No acute process. WBC 5, hemoglobin 14, platelet count 147. INR 1.1. Electrolytes are normal. Creatinine 0.5. Blood sugar 123. Troponins negative x 3. AST 53 otherwise liver function test are normal. Magnesium 2. Serum alcohol level 376. Home cardiac medications: Aspirin 81 mg daily, Imdur 60 mg at bedtime, Toprol-XL 100 mg at bedtime, Nitrostat as needed, simvastatin 40 mg at bedtime, Brilinta 90 mg at bedtime. Cardiac catheterization performed 02/06/[address] Veena Howard revealed chronic total occlusion of the right coronary artery. No significant obstructive coronary artery disease involving the LAD which is where the stress test was abnormal. Echocardiogram performed 12/05/2023 revealed EF 50% mitral annular calcification. Prominent pericardial fat. Review Of Systems: At the time of my evaluation: Constitutional: No fever, no chills. No weakness, fatigue or lethargy. EENT: No headache. No dizziness. Lungs: No shortness of breath, cough, no sputum production. No wheezing. Cardiovascular: No chest pain, no lower extremity edema. No palpitations. No paroxysmal nocturnal dyspnea. No orthopnea. No lightheadedness or dizziness. No syncopal episodes. Abdominal: No abdominal pain. No nausea, vomiting. No diarrhea. No constipation. No bloody or tarry stools. Genitourinary: No dysuria.. No urinary retention. Musculoskeletal: No myalgias. No muscle weakness, no frequent falls. No back pain. No neck pain. Integumentary: No wounds. No rash. No unusual bruising. Neurologic: No aphasia. No facial droop. No change in mentation. No head injury. No headache. Physical examination: Gen: This is a 63-year-old female appears to be in no acute distress VS: reviewed HEENT: Head is atraumatic, normocephalic. Pupils equal, round. Sclerae is anicteric. NECK: Supple. No JVD. . LUNGS: Clear to auscultation. No wheezes or rhonchi. No intercostal retractio ns. HEART: Regular rate and rhythm. Systolic murmur. ABDOMEN: Soft No tenderness. EXTREMITIES: No pedal edema. No calf tenderness. NEUROLOGICAL: Patient is awake, alert and oriented x3. Assessment: Atypical chest pain, acute coronary syndrome ruled out, noncardiac chest pain Alcohol intoxication History of coronary artery disease with known chronic total occlusion of the right coronary artery history of CVA History of carotid stenosis status post left carotid stenting Hypertension Hyperlipidemia Tobacco use and dependence Plan: Resume patient's home cardiac medications No need to repeat echocardiogram No further cardiac workup. Patient may follow-up with Dr. Veena Howard in the office in 1 to 2 weeks. Thank you kindly for this consultation. Nurse practitioner note has been reviewed, I agree with documented findings and plan of care. Patient was seen and examined. Past Medical History Past Medical History: Asthma, Coronary Artery Disease (CAD), COPD, CVA/TIA, Eye Disorder, Hypertension, Liver Disease, Myocardial Infarction ([place]), Seizure Di sorder, Vascular Disorder Additional Past Medical History / Comment(s): Pt recently admitted to [facility] for diarrhea, ETOH abuse. 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 soon Last Myocardial Infarction Date:: aug 2018 History of Any Multi-Drug Resistant Organisms: None Reported Past Surgical History: Cholecystectomy, Heart Catheterization, Orthopedic Surgery Additional Past Surgical History / Comment(s): L caratid stent, bilateral knee surgeries for tendon repair, bartholian cyst removed bilateral wrists, cataracts Past Anesthesia/Blood Transfusion Reactions: Motion Sickness Additional Past Anesthesia/Blood Transfusion Reaction / Comment(s): Pt has received blood without reaction. Past Psychological History: Anxiety, Depression Additional Psychological History / Comment(s): Pt states lately her stress/anxiety has been increased. She uses a walker to ambulate. She has a nebulizer. She no longer drives, Pt manages her own meds. She states meals are an issue d/t difficulty standing/using a walker. Smoking Status: Current every day smoker Past Alcohol Use History: Abuse, Daily, Heavy Additional Past Alcohol Use History / Comment(s): Pt started smoking as a teen and has cut down to 1 pack / day. Pt. states she has been drinking more to stay warm because she lost power. Drinks ~8 shots / day. Past Drug Use History: Marijuana Additional Drug Use History / Comment(s): Pt has medical marijuana, reports she has not used it in a while. - Past Family History Mother Family Medical History: Cancer, Congestive Heart Failure (CHF), Coronary Artery Disease (CAD), Hyperlipidemia Additional Family Medical History / Comment(s): Mother at age 85 from lung cancer. Father Family Medical History: Cancer, COPD Additional Family Medical History / Comment(s): Father at age 63 from lung cancer. Brother(s) Additional Family Medical History / Comment(s): Patient has a total of 7 siblings. 5 are alive without any major medical problems she is aware of. 2 siblings have one from alcohol abuse and 1. Coronary artery disease. Daughter(s) Additional Family Medical History / Comment(s): Patient has one daughter with no major medical problems. Medications and Allergies Home Medications Medication Instructions Recorded Confirmed Type Aspirin EC [Ecotrin Low Dose] 81 mg PO HS 02/11/19 12/19/23 History Fluticasone Nasal [place] [Flonase 1 spr EA NOSTRIL DAILY PRN 02/14/22 12/19/23 History Nasal [place]] Simvastatin [Zocor] 40 mg PO HS 07/03/22 12/19/23 History Ticagrelor [Brilinta] 90 mg PO HS 01/14/23 12/19/23 History Albuterol Inhaler [Ventolin Hfa 2 puff INHALATION RT-QID PRN 30 01/22/23 12/19/23 Rx Inhaler] Days #1 each Nitroglycerin Sl Tabs [Nitrostat] 0.4 mg SL Q5M PRN 02/06/23 12/19/23 History Albuterol Nebulized [Ventolin 2.5 mg INHALATION RT-QID PRN 05/17/23 12/19/23 History Nebulized] Folic Acid-Vit B Complex-Vit C 1 cap PO HS 05/23/23 12/19/23 History [Nephrocaps] Ondansetron Odt [Zofran ODT] 4 mg PO Q8HR PRN #15 tab 06/19/23 12/19/23 Rx Budesonide/Formoterol Fumarate 2 puff INHALATION RT-BID 07/29/23 12/19/23 History [Symbicort 160-4.5 Mcg Inhaler] Ibuprofen [Motrin Ib] 400 - 600 mg PO Q6H PRN 12/04/23 12/19/23 History Multivitamin [Multivitamins Adult 2 tab PO HS 12/04/23 12/19/23 History Gummies] Thiamine [Vitamin B-1] 100 mg PO HS 12/04/23 12/19/23 History Isosorbide Mononitrate ER [Imdur] 60 mg PO HS 30 Days #30 tab 12/07/23 12/19/23 Rx Metoprolol Succinate (ER) [Toprol 100 mg PO HS 30 Days #30 tab 12/07/23 12/19/23 Rx XL] Allergies Allergy/AdvReac Type Severity Reaction Status Date / Time [place] And Derivatives Allergy Rash/Hives Verified 12/19/23 08:59 [[place]] latex Allergy Rash/Hives Verified 12/19/23 08:59 tomato Allergy Diarrhea Verified 12/19/23 08:59 Influenza Virus Vaccines AdvReac Nausea & Verified 12/19/23 08:59 Vomiting morphine AdvReac Nausea & Verified 12/19/23 08:59 Vomiting Physical Exam Vitals: Vital Signs Temp Pulse Pulse Pulse Resp BP BP 12/20/23 01:44 97.7 F 73 17 12/19/23 21:13 97 20 12/19/23 18:38 98.2 F 97 20 12/19/23 15:00 98 F 96 18 176/109 12/19/23 13:51 98 20 164/116 12/19/23 11:00 96 20 142/91 12/19/23 09:51 90 20 123/90 12/19/23 08:18 98 22 148/104 BP Pulse Ox 12/20/23 01:44 104/73 96 12/19/23 21:13 12/19/23 18:38 132/91 96 12/19/23 15:00 95 12/19/23 13:51 94 L 12/19/23 11:00 95 12/19/23 09:51 95 12/19/23 08:18 95 Intake and Output 12/19/23 12/20/23 12/20/23 22:59 06:59 14:59 Output Total 900 Balance -900 Output: Urine 900 Other: Voiding Method Bedpan Diaper # Voids 400 # Bowel Movements 4 Weight 72.575 kg Results 12/18/23 23:26 12/18/23 23:26 Cardiac Enzymes 12/19/23 Range/Units 08:19 Troponin I 0.022 (0.000-0.034) ng/mL Current Medications Generic Name Dose Route Start Last Admin Trade Name Freq PRN Reason Stop Dose Admin Acetaminophen 650 mg 12/19/23 01:43 Acetaminophen Tab 325 Mg Tab PO Q6HR PRN Mild Pain or Fever > 100.5 Albuterol Sulfate 2.5 mg 12/19/23 13:26 Albuterol Nebulized 2.5 Mg/3 Ml INHALATION RT-QID PRN Shortness Of Breath Aspirin 81 mg 12/19/23 21:00 12/19/23 21:13 Aspirin 81 Mg PO 81 mg HS MAGY Administration Atorvastatin Calcium 20 mg 12/19/23 21:00 12/19/23 21:13 Atorvastatin 20 Mg Tab PO 20 mg HS MAGY Administration Budesonide/Formoterol Fumarate 2 puff 12/19/23 20:00 12/19/23 19:46 Symbicort 160-4.5 Mcg Inhaler INHALATION 2 puff RT-BID MAGY Administration Clonidine 0.1 mg 12/19/23 13:27 12/19/23 17:49 Clonidine Hcl 0.1 Mg Tab PO 0.1 mg Q4HR PRN Administration Hypertension Fluticasone Propionate 1 spray 12/19/23 13:26 Fluticasone 50mcg/[place] Nasal 16gm EA NOSTRIL DAILY PRN Allergy Symptoms Sodium Chloride 1,000 mls @ 75 mls/hr 12/19/23 01:45 12/20/23 06:30 Saline 0.9% IV 75 mls/hr .[id number] MAGY Administration Isosorbide Mononitrate 60 mg 12/19/23 21:00 12/19/23 21:13 Isosorbide Mononitrate Er 60 Mg Tab.Er.24h PO 60 mg HS MAGY Administration Lorazepam 1 mg 12/19/23 01:44 Lorazepam 2 Mg/Ml Inj IV Q1HR PRN CIWA 10 to 15 Lorazepam 1 mg 12/19/23 01:44 12/19/23 11:05 Lorazepam 2 Mg/Ml Inj IV 1 mg Q2HR PRN Administration CIWA 8 or 9 Lorazepam 2 mg 12/19/23 01:44 Lorazepam 2 Mg/Ml Inj IV 12/21/23 01:44 Q10M PRN CIWA 16 or higher Metoprolol Succinate 100 mg 12/19/23 21:00 12/19/23 21:14 Metoprolol Succinate (Er) 100 Mg Tab.Er.24h PO 100 mg HS MAGY Administration Multivit/Ca Carb/B Cmplx/FA/Prenat 1 each 12/19/23 21:00 12/19/23 21:13 Folic Acid-Vit B Complex-Vit C 1 Cap PO 1 each HS MAGY Administration Multivitamins 1 each 12/19/23 21:00 12/19/23 21:14 Multivitamins, Thera 1 Each Tab PO 1 each HS MAGY Administration Naloxone HCl 0.2 mg 12/19/23 01:43 Naloxone 0.4 Mg/Ml 1 Ml Vial IV Q2M PRN Opioid Reversal Ondansetron HCl 4 mg 12/19/23 13:26 12/19/23 13:53 Ondansetron Odt 4 Mg Tab PO 4 mg Q8HR PRN Administration Nausea And Vomiting Ondansetron HCl 4 mg 12/19/23 15:01 Ondansetron 4 Mg/2 Ml Vial IVP Q6HR PRN Nausea And Vomiting Pantoprazole Sodium 40 mg 12/20/23 07:30 12/20/23 06:30 Pantoprazole 40 Mg Tablet PO 40 mg AC-BRKFST MAGY Administration Thiamine HCl 100 mg 12/20/23 09:00 Thiamine 100 Mg Tab PO DAILY MAGY Ticagrelor 90 mg 12/19/23 21:00 12/19/23 21:14 Ticagrelor 90 Mg Tab PO 90 mg HS MAGY Administration Intake and Output 12/19/23 12/20/23 12/20/23 22:59 06:59 14:59 Output Total 900 Balance -900 Output: Urine 900 Other: Voiding Method Bedpan Diaper # Voids 400 # Bowel Movements 4 Weight 72.575 kg 12/18/23 23:26 12/18/23 23:26
[2023-12-20] MEDS: THIAMINE 100 MG TAB PO SCH (09:51)
[2023-12-20 11:46] LABS: Basophils # (A) 0.07 X 10*3/uL (0.00-0.10); Basophils % (A) 1.8 %; Eosinophils # (A) 0.15 X 10*3/uL (0.04-0.35); Eosinophils % (A) 3.9 %; HCT 33.4 % (37.2-46.3); HGB 11.1 g/dL (12.0-15.0); Lymphocytes # (A) 1.02 X 10*3/uL (0.90-5.00); Lymphocytes % (A) 26.4 %; MCH 29.7 pg (27.0-32.0); MCHC 33.2 g/dL (32.0-37.0); MCV 89.3 FL (80.0-97.0); Mean Platelet Volume 9.9 FL (9.5-12.2); Monocytes # (A) 0.33 X 10*3/uL (0.20-1.00); Monocytes % (A) 8.5 %; NRBC Per 100 WBC 0 X 10*3/uL (0.00-0.01); Neutrophils # (A) 2.28 X 10*3/uL (1.80-7.70); Neutrophils % (A) 59.1 %; Platelet Count 83 X 10*3/uL (140-440); RBC 3.74 X 10*6/uL (4.10-5.20); RDW 18.2 % (11.5-14.5); WBC 3.86 X 10*3/uL (4.50-10.00)
[2023-12-20] MEDS: ALBUTEROL NEBULIZED 2.5 MG/3 ML INHALATION PRN (11:56)
[2023-12-20 12:03] LABS: ALT 25 U/L (8-44); AST 40 U/L (13-35); Albumin 3.5 g/dL (3.8-4.9); Albumin/Globulin Ratio 1.75 Ratio (1.60-3.17); Alkaline Phosphatase 117 U/L (41-126); BUN/Creat Ratio 10.17 Ratio (12.00-20.00); Blood Urea Nitrogen 6.1 mg/dL (9.0-27.0); Calcium 8.4 mg/dL (8.7-10.3); Carbon Dioxide 25.8 mmol/L (21.6-31.8); Chloride 101 mmol/L (96-109); Glucose 107 mg/dL (70-110); Potassium 2.9 mmol/L (3.5-5.5); Sodium 136 mmol/L (135-145); Total Protein 5.5 g/dL (6.2-8.2)
[2023-12-20 12:32] VITALS: PULSE 67
--- NOTE | 2023-12-21 08:46 | P.DS ---
Providers Date of admission: 12/19/23 13:25 Expected date of discharge: 12/20/23 Attending physician: Mark Cardoza Consults: 12/19/23 13:27 Consult Physician Routine Consulting Provider: Parish Kay Consult Reason/Comments: chest pain Do you want consulting provider notified?: Yes Primary care physician: Kiley Gill, [facility] Hospital Course: Final diagnosis Chest pain, likely unstable angina Acute alcohol intoxication History of asthma and chronic obstructive pulmonary disease, not in exacerbation History of coronary artery disease and myocardial infarction History of seizure disorder Hypertension History of chronic liver disease History of CVA Continued ongoing nicotine dependence Anxiety/depression THC use GI prophylaxis DVT prophylaxis Full code Discharge disposition Patient is being discharged in a stable condition with guarded prognosis to home. Patient will follow-up with Dr. Sherman Cardoza in the outpatient setting upon discharge. Patient is to continue with Librium taper and medications as mentioned below. Patient to follow-up with cardiology outpatient as scheduled. Total time taken is greater than 35 minutes. Hospital course This is a 63-year-old female who was recently admitted with chest pain and alcohol intoxication. Patient was placed on CIWA protocol not requiring much Ativan and was also evaluated by cardiology recommending outpatient follow-up and medication compliance along with complete alcohol abstinence. Patient will be given a Librium taper on discharge and instructed to follow-up with primary care provider on discharge. Multiple discussions have been had with the patient regarding complete alcohol cessation although patient continues to be noncompliant and continues to drink. AA and/or inpatient alcohol rehab has been recommended. Patient is refusing at this time. Patient reports she does not drink every day. Currently no reports of chest pain, shortness of breath, or palpitations. Patient is afebrile. No reports of nausea or vomiting and patient is tolerating diet. Patient will be discharged home today. Guarded prognosis and high risk for readmissions given patient's significant comorbidities and continued noncompliance with medication and follow-up and continued alcohol use. Physical exam: Gen: This is a 63-year-old female who is awake, alert and oriented x 3, well- developed, well-nourished, elderly appearing HEENT: Head is atraumatic, normocephalic. Pupils equal, round. Sclerae is anicteric. NECK: Supple. No JVD. No lymphadenopathy. No thyromegaly. LUNGS: Diminished breath sounds bilaterally with some scattered rhonchi. No intercostal retractions. HEART: S1, S2 are muffled ABDOMEN: Soft. Obese bowel sounds are present. No masses. No tenderness. EXTREMITIES: No pedal edema. No calf tenderness. NEUROLOGICAL: Patient is awake, alert and oriented x3. Cranial nerves 2 through 12 are grossly intact. Please refer to medication reconciliation sheet for a list of medications. The impression and plan of care has been dictated by Tonya Adan, Nurse Practitioner as directed. Dr. Sony MD I have performed a history and examination and MDM of this patient, discussed the same with the dictator, and agree with the dictator's assessment and plan as written ,documented as a scribe. Based on total visit time, I have performed more than 50% of the visit. Patient Condition at Discharge: Fair Plan - Discharge Summary Discharge Rx Participant: No New Discharge Prescriptions: New chlordiazePOXIDE HCl [Librium] 25 mg PO TID 3 Days #6 capsule Pantoprazole [Protonix] 40 mg PO AC-BRKFST #30 tab Continue Aspirin EC [Ecotrin Low Dose] 81 mg PO HS Ticagrelor [Brilinta] 90 mg PO HS Folic Acid-Vit B Complex-Vit C [Nephrocaps] 1 cap PO HS Budesonide/Formoterol Fumarate [Symbicort 160-4.5 Mcg Inhaler] 2 puff INHALATION RT-BID Ibuprofen [Motrin Ib] 400 - 600 mg PO Q6H PRN PRN Reason: Fever And/ Or Pain Multivitamin [Multivitamins Adult Gummies] 2 tab PO HS Metoprolol Succinate (ER) [Toprol XL] 100 mg PO HS 30 Days #30 tab Fluticasone Nasal [place] [Flonase Nasal [place]] 1 spr EA NOSTRIL DAILY PRN PRN Reason: Allergy Symptoms Simvastatin [Zocor] 40 mg PO HS Albuterol Inhaler [Ventolin Hfa Inhaler] 2 puff INHALATION RT-QID PRN 30 Days #1 each PRN Reason: Shortness Of Breath Or Wheezing Nitroglycerin Sl Tabs [Nitrostat] 0.4 mg SL Q5M PRN PRN Reason: Chest Pain Albuterol Nebulized [Ventolin Nebulized] 2.5 mg INHALATION RT-QID PRN PRN Reason: Shortness Of Breath Ondansetron Odt [Zofran ODT] 4 mg PO Q8HR PRN #15 tab PRN Reason: Nausea And Vomiting Thiamine [Vitamin B-1] 100 mg PO HS Isosorbide Mononitrate ER [Imdur] 60 mg PO HS 30 Days #30 tab Discharge Medication List Aspirin EC [Ecotrin Low Dose] 81 mg PO HS 02/11/19 [History] Fluticasone Nasal [place] [Flonase Nasal [place]] 1 spr EA NOSTRIL DAILY PRN 02/14/22 [History] Simvastatin [Zocor] 40 mg PO HS 07/03/22 [History] Ticagrelor [Brilinta] 90 mg PO HS 01/14/23 [History] Albuterol Inhaler [Ventolin Hfa Inhaler] 2 puff INHALATION RT-QID PRN 30 Days #1 each 01/22/23 [Rx] Nitroglycerin Sl Tabs [Nitrostat] 0.4 mg SL Q5M PRN 02/06/23 [History] Albuterol Nebulized [Ventolin Nebulized] 2.5 mg INHALATION RT-QID PRN 05/17/23 [History] Folic Acid-Vit B Complex-Vit C [Nephrocaps] 1 cap PO HS 05/23/23 [History] Ondansetron Odt [Zofran ODT] 4 mg PO Q8HR PRN #15 tab 06/19/23 [Rx] Budesonide/Formoterol Fumarate [Symbicort 160-4.5 Mcg Inhaler] 2 puff INHALATION RT-BID 07/29/23 [History] Ibuprofen [Motrin Ib] 400 - 600 mg PO Q6H PRN 12/04/23 [History] Multivitamin [Multivitamins Adult Gummies] 2 tab PO HS 12/04/23 [History] Thiamine [Vitamin B-1] 100 mg PO HS 12/04/23 [History] Isosorbide Mononitrate ER [Imdur] 60 mg PO HS 30 Days #30 tab 12/07/23 [Rx] Metoprolol Succinate (ER) [Toprol XL] 100 mg PO HS 30 Days #30 tab 12/07/23 [Rx] Pantoprazole [Protonix] 40 mg PO AC-BRKFST #30 tab 12/20/23 [Rx] chlordiazePOXIDE HCl [Librium] 25 mg PO TID 3 Days #6 capsule 12/20/23 [Rx] Follow up Appointment(s)/Referral(s): Miya Johnson MD [STAFF PHYSICIAN] - 1 Week (please call to make the appointment ) Unruly Howard MD [STAFF PHYSICIAN] - 1 Week (please call today to make the appointment!! pt request to make own appointment ) Patient Instructions/Handouts: Chest Pain (GEN), Alcohol Intoxication (GEN), Abuse of Alcohol (DC), At-Risk Alcohol Use (GEN) Activity/Diet/Wound Care/Special Instructions: Activity limited until follow-up Follow-up with primary care provider on discharge Follow-up with cardiology in the outpatient setting Continue with Librium taper and avoid all alcohol Discharge Disposition: HOME SELF-CARE
== END 2023-12-20 12:56 | disposition home or self-care (01) | DRG 198 ==
LOC: EC 22:34 → 6NMEDSUR 12-19 01:43 → OBSVTOIN 12-19 13:25 → 6NMEDSUR 12-19 15:59 → UNDODISIN 12-20 12:56
PROVIDERS: ADMIT Hospitalist; ATTEND Hospitalist
PROC: HZ2ZZZZ Detoxification Services for Substance Abuse Treatment (ICD-10-PCS; principal; 2023-12-19)
DX: R07.89 Other chest pain (principal); E78.5 Hyperlipidemia, unspecified; Z86.79 Personal history of other diseases of the circulatory system; J44.9 Chronic obstructive pulmonary disease, unspecified; I25.10 Atherosclerotic heart disease of native coronary artery without angina pectoris; F17.210 Nicotine dependence, cigarettes, uncomplicated; F32.A Depression, unspecified; Y90.8 Blood alcohol level of 240 mg/100 ml or more; I69.351 Hemiplegia and hemiparesis following cerebral infarction affecting right dominant side; I69.328 Other speech and language deficits following cerebral infarction; D64.9 Anemia, unspecified; F10.229 Alcohol dependence with intoxication, unspecified; K29.70 Gastritis, unspecified, without bleeding; K58.9 Irritable bowel syndrome, unspecified; F41.9 Anxiety disorder, unspecified; G40.909 Epilepsy, unspecified, not intractable, without status epilepticus; Z88.7 Allergy status to serum and vaccine; Z91.040 Latex allergy status; I25.2 Old myocardial infarction; K70.30 Alcoholic cirrhosis of liver without ascites; Z79.02 Long term (current) use of antithrombotics/antiplatelets; Z79.51 Long term (current) use of inhaled steroids; Z79.899 Other long term (current) drug therapy; Z91.148 Patient's other noncompliance with medication regimen for other reason; Z82.49 Family history of ischemic heart disease and other diseases of the circulatory system; Z91.199 Patient's noncompliance with other medical treatment and regimen due to unspecified reason; Z95.5 Presence of coronary angioplasty implant and graft; I10 Essential (primary) hypertension
CPT/HCPCS: 36415; 71046; 80053; 80320; 83690; 83735; 84484; 85025; 85610; 85730; 93005; 94640; 96361; 96372; 96374; 96376; 99285

== ENCOUNTER 2024-01-01 15:53 | Emergency (ER) | payer OTHER ==
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
[2024-01-01 16:16] VITALS: RESP 18
[2024-01-01 18:08] VITALS: BP 148/89; PULSE 90
== END 2024-01-01 17:47 | disposition home or self-care (01) ==
LOC: EC 15:53
DX: F10.129 Alcohol abuse with intoxication, unspecified (principal); F41.9 Anxiety disorder, unspecified; I10 Essential (primary) hypertension; I25.10 Atherosclerotic heart disease of native coronary artery without angina pectoris; J44.89 Other specified chronic obstructive pulmonary disease; I25.2 Old myocardial infarction; F17.200 Nicotine dependence, unspecified, uncomplicated; F12.90 Cannabis use, unspecified, uncomplicated; Z86.59 Personal history of other mental and behavioral disorders; Z79.899 Other long term (current) drug therapy; Z79.82 Long term (current) use of aspirin; Z88.5 Allergy status to narcotic agent; Z91.040 Latex allergy status; Z88.7 Allergy status to serum and vaccine; Z88.8 Allergy status to other drugs, medicaments and biological substances
CPT/HCPCS: 99283

== ENCOUNTER 2024-01-02 14:52 | Observation (INO) | payer OTHER ==
[2024-01-02 16:51] LABS: Anisocytosis Slight; Basophils # (A) 0.2 k/uL (0-0.2); Basophils % (A) 2 %; Eosinophils # (A) 0.1 k/uL (0-0.7); Eosinophils % (A) 1 %; HCT 44.9 % (34.0-46.0); HGB 14.6 gm/dL (11.4-16.0); Lymphocytes # (A) 2.4 k/uL (1.0-4.8); Lymphocytes % (A) 26 %; MCH 30.3 pg (25.0-35.0); MCHC 32.4 g/dL (31.0-37.0); MCV 93.6 fL (80.0-100.0); Mean Platelet Volume 7.6; Monocytes # (A) 0.5 k/uL (0-1.0); Monocytes % (A) 5 %; Neutrophils # (A) 5.7 k/uL (1.3-7.7); Neutrophils % (A) 63 %; Platelet Count 241 k/uL (150-450); RDW 18.2 % (11.5-15.5)
[2024-01-02 17:06] LABS: ALT 32 U/L (4-34); African American GFR (CKD) >90 (>60 ml/min/1.73 sqM); Albumin 4.3 g/dL (3.5-5.0); Anion Gap 15 mmol/L; Blood Urea Nitrogen 14 mg/dL (7-17); Calcium 8.9 mg/dL (8.4-10.2); Carbon Dioxide 21 mmol/L (22-30); Chloride 106 mmol/L (98-107); Glucose 136 mg/dL (74-99); Lipase 53 U/L (23-300); Non-African American GFR(CKD) >90 (>60 ml/min/1.73 sqM); Sodium 142 mmol/L (137-145); Total Bilirubin 0.5 mg/dL (0.2-1.3)
[2024-01-02 17:08] LABS: AST 49 U/L (14-36); Alkaline Phosphatase 107 U/L (38-126); Potassium 4.6 mmol/L (3.5-5.1)
[2024-01-02] MEDS: diphenhydrAMINE 50 MG/ML 1 ML VIAL IVP STA (17:25)
[2024-01-02] MEDS: METOCLOPRAMIDE 5 MG/ML 2 ML VIAL IVP STA (17:26)
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
[2024-01-02] MEDS: SODIUM CHLORIDE 0.9% 1,000 ML IV STA (17:33)
[2024-01-02] MEDS: ONDANSETRON 4 MG/2 ML VIAL IVP STA (17:56)
[2024-01-02] MEDS: SODIUM CHLORIDE 0.9% 1,000 ML IV ONE (17:58)
--- NOTE | 2024-01-02 20:29 | CT ---
EXAMINATION TYPE: CT abdomen pelvis w con CT DLP: 977.6 mGycm, Automated exposure control for dose reduction was used. DATE OF EXAM: 01/02/2024 8:08 PM COMPARISON: CT abdomen pelvis most recent from 06/30/2023, 12/26/2022. CLINICAL INDICATION:Female, 63 years old with history of abdominal pain; diverticulitis TECHNIQUE: Axial CT abdomen pelvis w con;Sagittal and coronal reformats were created on a separate w orkstation. Contrast used:100ml mL of Isovue 300 with IV Contrast, (none if empty) Oral contrast used: without Oral Contrast (none if empty) FINDINGS: LOWER CHEST: Unremarkable ABDOMEN LIVER: Scattered probable simple appearing cyst. Nodular contour to the liver. Right lobe hypertrophy . GALLBLADDER AND BILE DUCTS: Unremarkable. PANCREAS: Unremarkable. SPLEEN: Unremarkable. ADRENAL GLANDS: Unremarkable. KIDNEYS AND URETERS: No evidence of hydronephrosis or renal calculus. The ureters are unremarkable. PELVIS BLADDER: Unremarkable REPRODUCTIVE: Unremarkable. ABDOMEN & PELVIS STOMACH AND BOWEL: Circumferential wall thickening of the descending colon and sigmoid colon evans me asuring up to 12 mm. The colon is nondistended in these regions. Multiple colonic diverticula present . There is facet joint changes around the colon. No evidence of bowel obstruction. The appendix is no rmal. PERITONEUM/RETROPERITONEUM: No evidence of pneumoperitoneum or free fluid. VASCULATURE: Severe atherosclerotic calcifications are present throughout the abdominal aorta and its branches. No evidence of aortic aneurysm. MUSCULOSKELETAL: No acute osseous abnormalities, stable deformities of the L4 and L1 vertebral body s uperior endplates. LYMPH NODES: No gross evidence for lymphadenopathy. SOFT TISSUE/ABDOMINAL WALL: Unremarkable IMPRESSION: 1. Colitis involving the descending and sigmoid colon. Multiple diverticula are present within this region. No organizing fluid collections. 2. Nodular contour to liver correlate for cirrhosis.
[2024-01-02] MEDS ORDERED: NALOXONE 0.4 MG/ML 1 ML VIAL IV PRN (21:14)
[2024-01-02] MEDS ORDERED: LORazepam 2 MG/ML INJ IV PRN (21:21)
[2024-01-02] MEDS: cefTRIAXone IN SWFI 1,000 MG/10 ML SYRINGE IVP STA (23:05)
[2024-01-02] MEDS: metroNIDAZOLE-NS PMX 500 MG in SALINE 1 100ML.BAG IVPB STA (23:06)
[2024-01-02] MEDS: SODIUM CHLORIDE 0.9% 1,000 ML IV SCH (23:14)
[2024-01-02] MEDS: THIAMINE 100 MG/ML 2 ML VIAL IM STA (23:18)
[2024-01-03] MEDS: TICAGRELOR 90 MG TAB PO SCH (00:50)
[2024-01-03] MEDS: MULTIVITAMINS, THERA 1 EACH TAB PO SCH (00:50)
[2024-01-03] MEDS: METOPROLOL SUCCINATE (ER) 100 MG TAB.ER.24H PO SCH (00:50)
[2024-01-03] MEDS: ASPIRIN 81 MG PO SCH (00:50)
[2024-01-03] MEDS: ATORVASTATIN 20 MG TAB PO SCH (00:50)
[2024-01-03] MEDS: ISOSORBIDE MONONITRATE ER 60 MG TAB.ER.24H PO SCH (00:50)
[2024-01-03] MEDS: PANTOPRAZOLE 40 MG TABLET PO SCH (00:50)
[2024-01-03] MEDS: LORazepam 2 MG/ML INJ IV PRN ×2 (00:51→08:33)
[2024-01-03] MEDS: ONDANSETRON 4 MG/2 ML VIAL IVP PRN (02:15)
[2024-01-03] MEDS: ALBUTEROL NEBULIZED 2.5 MG/3 ML INHALATION PRN (05:06)
[2024-01-03 05:44] LABS: Anisocytosis Slight; Basophils # (A) 0.1 k/uL (0-0.2); Basophils % (A) 1 %; Eosinophils % (A) 0 %; HCT 34.7 % (34.0-46.0); Lymphocytes # (A) 1.5 k/uL (1.0-4.8); Lymphocytes % (A) 14 %; MCH 30.6 pg (25.0-35.0); MCHC 33.1 g/dL (31.0-37.0); MCV 92.4 fL (80.0-100.0); Mean Platelet Volume 8.2; Monocytes # (A) 0.7 k/uL (0-1.0); Monocytes % (A) 7 %; Neutrophils # (A) 8.3 k/uL (1.3-7.7); Neutrophils % (A) 76 %; Platelet Count 132 k/uL (150-450); RBC 3.76 m/uL (3.80-5.40); RDW 18.3 % (11.5-15.5); WBC 10.9 k/uL (3.8-10.6)
[2024-01-03 05:46] LABS: HGB 11.5 gm/dL (11.4-16.0)
[2024-01-03 05:52] LABS: African American GFR (CKD) >90 (>60 ml/min/1.73 sqM); Anion Gap 5 mmol/L; Blood Urea Nitrogen 11 mg/dL (7-17); Calcium 8.1 mg/dL (8.4-10.2); Carbon Dioxide 27 mmol/L (22-30); Chloride 108 mmol/L (98-107); Glucose 103 mg/dL (74-99); Non-African American GFR(CKD) >90 (>60 ml/min/1.73 sqM); Potassium 3.4 mmol/L (3.5-5.1); Sodium 140 mmol/L (137-145)
[2024-01-03] MEDS: SYMBICORT 160-4.5 MCG INHALER INHALATION SCH (08:15)
[2024-01-03] MEDS: THIAMINE 100 MG TAB PO SCH (08:33)
[2024-01-03] MEDS: POTASSIUM CHLORIDE ER 20 MEQ TAB.ER PO STA (12:03)
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
[2024-01-03] MEDS: metroNIDAZOLE-NS PMX 500 MG in SALINE 1 100ML.BAG IVPB SCH (14:06)
[2024-01-03] MEDS: ZINC OXIDE PASTE (Z-GUARD) 1 APPLIC TOPICAL PRN (17:31)
[2024-01-04 08:49] LABS: Anisocytosis Slight; HCT 32.6 % (34.0-46.0); HGB 10.8 gm/dL (11.4-16.0); MCH 31.1 pg (25.0-35.0); Mean Platelet Volume 8.4; Platelet Count 101 k/uL (150-450); RBC 3.47 m/uL (3.80-5.40); RDW 17.5 % (11.5-15.5); WBC 5.8 k/uL (3.8-10.6)
[2024-01-04 08:54] LABS: African American GFR (CKD) >90 (>60 ml/min/1.73 sqM); Anion Gap 8 mmol/L; Blood Urea Nitrogen 3 mg/dL (7-17); Calcium 8.6 mg/dL (8.4-10.2); Carbon Dioxide 23 mmol/L (22-30); Chloride 109 mmol/L (98-107); Glucose 93 mg/dL (74-99); Magnesium 1.6 mg/dL (1.6-2.3); Non-African American GFR(CKD) >90 (>60 ml/min/1.73 sqM); Potassium 3.4 mmol/L (3.5-5.1); Sodium 140 mmol/L (137-145)
[2024-01-04] MEDS: ENOXAPARIN 40 MG/0.4 ML SYRINGE SQ SCH (09:22)
[2024-01-04] MEDS: POTASSIUM CHLORIDE ER 10 MEQ TAB.ER.PRT PO SCH (10:20)
[2024-01-04 16:13] VITALS: BP 144/89; PULSE 80; RESP 18; TEMP 98.3
--- NOTE | 2024-01-05 21:45 | P.DS ---
Providers Date of admission: 01/03/24 13:28 Attending physician: Mark Cardoza Primary care physician: Miya Johnson Hospital Course: Final Diagnosis -Acute diverticulitis continue with IV antibiotics monitor clinically IV fluids were discontinued because of hyperchloremic metabolic acidosis. -Severe sepsis with lactic acidosis secondary to above -Alcohol abuse -Alcoholic withdrawal patient will be monitored for this and patient is on Ativan CIWA protocol -Continue nicotine use: Counseling was provided -COPD without any acute exacerbation -Hypertension -Coronary disease -History of seizure disorder -Peripheral artery disease -Depression Discharge Disposition Patient is stable for discharge home. She is tolerating diet and states that her abdominal pain has significantly improved. electrolytes have normalized her white blood cell count has normalized to 5.8. Renal function remains normal and lactic acid has normalized. patient to discharge on 7 additional days of antibiotic therapy with oral Ceftin and oral Flagyl. Recommending to follow-up with her PCP Dr. Do Cardoza in 1 to 2 days she states that she follows up with Dr. Lynch for the diverticulitis and has an appointment scheduled in the next week and will keep this appointment. Hospital Course 63-year-old female came in severe sharp bilateral lower quadrant abdominal pain found to have diverticulitis of the sigmoid and the descending colon. Patient does have leukocytosis, patient was having nausea vomiting. Does not have any fever. Patient is receivingIV fluids send patient had elevated lactic acid of 6.1 which has come down. Patient does have alcohol abuse history and willing to quit alcohol. Was admitted to the hospital under medicine for the diverticulitis and monitoring for alcohol withdrawal her alcohol level on admission was 167. Patient was also started on IV antibiotics with IV ceftriaxone and IV flagyl. She was monitored overnight. her WBC has normalized, lactic acid has normalized. No nausea or vomiting and the diarrhea has also improved. Was checked for C.Dif which comes back as negative. She is tolerating diet and requesting to go home. Has a follow up with her known surgeon Dr. Lynch in the next week. Lungs are clear, S1 S2 auscultated, abdomen is soft and nontender. No evidence of acute alcohol withdrawal. She will be discharged home with the above mentioned recommendations. Please see medication reconciliation for a list of current medications. Thank you for allowing us to participate in the care of this patient. The impression and plan of care has been dictated by Karina Medina, Nurse Practitioner as directed. Dr. Jackelin MD I have performed a history and physical examination and medical decision making of this patient, discussed the same with the dictator, and agree with the dictators assessment and plan as written, documented as a scribe. Based on total visit time, I have performed more than 50% of this visit. Patient Condition at Discharge: Stable Plan - Discharge Summary Discharge Rx Participant: Yes New Discharge Prescriptions: New cefUROXime axetiL [Ceftin] 500 mg PO BID 7 Days #14 tab metroNIDAZOLE [Flagyl] 500 mg PO TID 7 Days #21 tab Thiamine [Vitamin B-1] 100 mg PO DAILY #30 tablet Continue Aspirin EC [Ecotrin Low Dose] 81 mg PO HS Ticagrelor [Brilinta] 90 mg PO HS Budesonide/Formoterol Fumarate [Symbicort 160-4.5 Mcg Inhaler] 2 puff INHALATION RT-BID Multivitamin [Multivitamins Adult Gummies] 2 tab PO HS Metoprolol Succinate (ER) [Toprol XL] 100 mg PO HS 30 Days #30 tab Simvastatin [Zocor] 40 mg PO HS Albuterol Nebulized [Ventolin Nebulized] 2.5 mg INHALATION RT-QID PRN PRN Reason: Shortness Of Breath Isosorbide Mononitrate ER [Imdur] 60 mg PO HS 30 Days #30 tab Pantoprazole [Protonix] 40 mg PO HS Discharge Medication List Aspirin EC [Ecotrin Low Dose] 81 mg PO HS 02/11/19 [History] Simvastatin [Zocor] 40 mg PO HS 07/03/22 [History] Ticagrelor [Brilinta] 90 mg PO HS 01/14/23 [History] Albuterol Nebulized [Ventolin Nebulized] 2.5 mg INHALATION RT-QID PRN 05/17/23 [History] Budesonide/Formoterol Fumarate [Symbicort 160-4.5 Mcg Inhaler] 2 puff INHALATION RT-BID 07/29/23 [History] Multivitamin [Multivitamins Adult Gummies] 2 tab PO HS 12/04/23 [History] Isosorbide Mononitrate ER [Imdur] 60 mg PO HS 30 Days #30 tab 12/07/23 [Rx] Metoprolol Succinate (ER) [Toprol XL] 100 mg PO HS 30 Days #30 tab 12/07/23 [Rx] Pantoprazole [Protonix] 40 mg PO HS 01/02/24 [History] Thiamine [Vitamin B-1] 100 mg PO DAILY #30 tablet 01/04/24 [Rx] cefUROXime axetiL [Ceftin] 500 mg PO BID 7 Days #14 tab 01/04/24 [Rx] metroNIDAZOLE [Flagyl] 500 mg PO TID 7 Days #21 tab 01/04/24 [Rx] Follow up Appointment(s)/Referral(s): Amie Lynch DO [REFERRING] - 1 Week (Patient will make her own appointment.) Miya Johnson MD [Primary Care Provider] - 1-2 days (Patient will make her own appointment.) Ambulatory/Diagnostic Orders: Basic Metabolic Panel [LAB.AMB] Time Frame: 3 Days, Location: None Selected Complete Blood Count w/diff [LAB.AMB] Location: None Selected Patient Instructions/Handouts: Cefuroxime (By mouth), Metronidazole (By mouth), Thiamine (By mouth), Diverticulitis (DC), Diverticulitis Diet (DC) Discharge/Stand Alone Forms: AA Meetings [place], Who Do I Call?, Community Resources, Outpatient Counseling, Inp Substance Abuse Facilities, Personal Stabilizer Operator Discharge Disposition: HOME WITH HOME HEALTH SERVICES
== END 2024-01-04 17:18 | disposition home health service (06) ==
LOC: EC 14:52 → UNDOADMOB 21:14 → 3SCARD 21:14 → UNDOADMOB 21:19 → 3SCARD 21:19 → OBSVTOIN 01-03 13:28 → INTOOBSV 01-03 13:28 → 3SCARD 01-04 03:51 → 5NMEDONC 01-04 03:51 → UNDODISIN 01-04 17:18
PROVIDERS: ADMIT Hospitalist; ATTEND Hospitalist
PROC: HZ2ZZZZ Detoxification Services for Substance Abuse Treatment (ICD-10-PCS; principal; 2024-01-03)
DX: A41.9 Sepsis, unspecified organism (principal); R65.20 Severe sepsis without septic shock; K57.32 Diverticulitis of large intestine without perforation or abscess without bleeding; F10.229 Alcohol dependence with intoxication, unspecified; F10.239 Alcohol dependence with withdrawal, unspecified; E87.8 Other disorders of electrolyte and fluid balance, not elsewhere classified; I25.10 Atherosclerotic heart disease of native coronary artery without angina pectoris; I10 Essential (primary) hypertension; Y90.6 Blood alcohol level of 120-199 mg/100 ml; I73.9 Peripheral vascular disease, unspecified; G40.909 Epilepsy, unspecified, not intractable, without status epilepticus; F32.A Depression, unspecified; F41.9 Anxiety disorder, unspecified; F17.210 Nicotine dependence, cigarettes, uncomplicated; Z79.82 Long term (current) use of aspirin; Z79.51 Long term (current) use of inhaled steroids; Z79.02 Long term (current) use of antithrombotics/antiplatelets; Z79.899 Other long term (current) drug therapy; Z91.040 Latex allergy status; Z88.5 Allergy status to narcotic agent; Z88.7 Allergy status to serum and vaccine; Z91.018 Allergy to other foods; Z60.8 Other problems related to social environment; Z91.410 Personal history of adult physical and sexual abuse; Z71.6 Tobacco abuse counseling
CPT/HCPCS: 96376 ×3; 96366 ×2; 96372 ×2; 96367; 96361 ×2; 96365; 96375 ×2; 99285; 36415; 94640 ×4; 80053; 80048 ×2; 83605 ×2; 83690; 83735; 85025 ×2; 85027; 87040 ×2; 87324; 74177; G0378 ×4; G0480; J2060; J1200; J2765; J3411; J2405 ×2; J0696 ×3; J1650; Q9967; J1836 ×3; 80320

== ENCOUNTER 2024-01-06 03:14 | Observation (INO) | payer OTHER ==
--- NOTE | 2024-01-06 03:44 | ED ---
General Adult HPI - General Chief complaint: Nausea/Vomiting/Diarrhea Stated complaint: Weakness Time Seen by Provider: 01/06/24 03:16 Source: patient, EMS, RN notes reviewed, old records reviewed Mode of arrival: EMS Limitations: no limitations - History of Present Illness Initial comments: 63-year-old female presenting for evaluation of cough, dyspnea, distention and vomiting. Patient was admitted to this hospital 2 days prior with diagnosis of colitis. She was started on antibiotics. She has been attempting to take her oral antibiotics at home with associated nausea and vomiting. She does report abdominal distention, no significant abdominal pain. Patient found to be febrile upon arrival. - Related Data Home Medications Medication Instructions Recorded Confirmed Aspirin EC [Ecotrin Low Dose] 81 mg PO HS 02/11/19 01/02/24 Simvastatin [Zocor] 40 mg PO HS 07/03/22 01/02/24 Ticagrelor [Brilinta] 90 mg PO HS 01/14/23 01/02/24 Albuterol Nebulized [Ventolin 2.5 mg INHALATION RT-QID PRN 05/17/23 01/02/24 Nebulized] Budesonide/Formoterol Fumarate 2 puff INHALATION RT-BID 07/29/23 01/02/24 [Symbicort 160-4.5 Mcg Inhaler] Multivitamin [Multivitamins Adult 2 tab PO HS 12/04/23 01/02/24 Gummies] Pantoprazole [Protonix] 40 mg PO HS 01/02/24 01/02/24 Previous Rx's Medication Instructions Recorded Isosorbide Mononitrate ER [Imdur] 60 mg PO HS 30 Days #30 tab 12/07/23 Metoprolol Succinate (ER) [Toprol 100 mg PO HS 30 Days #30 tab 12/07/23 XL] Thiamine [Vitamin B-1] 100 mg PO DAILY #30 tablet 01/04/24 cefUROXime axetiL [Ceftin] 500 mg PO BID 7 Days #14 tab 01/04/24 metroNIDAZOLE [Flagyl] 500 mg PO TID 7 Days #21 tab 01/04/24 Allergies Allergy/AdvReac Type Severity Reaction Status Date / Time [place] And Derivatives Allergy Rash/Hives Verified 12/19/23 08:59 [[place]] latex Allergy Rash/Hives Verified 12/19/23 08:59 tomato Allergy Diarrhea Verified 12/19/23 08:59 Influenza Virus Vaccines AdvReac Nausea & Verified 12/19/23 08:59 Vomiting morphine AdvReac Nausea & Verified 12/19/23 08:59 Vomiting Review of Systems ROS Statement: Those systems with pertinent positive or pertinent negative responses have been documented in the HPI. ROS Other: All systems not noted in ROS Statement are negative. Past Medical History Past Medical History: Asthma, Coronary Artery Disease (CAD), COPD, CVA/TIA, Eye Disorder, Hypertension, Liver Disease, Myocardial Infarction ([place]), Seizure Disorder, Vascular Disorder Additional Past Medical History / Comment(s): Pt recently admitted to [facility] for diarrhea, ETOH abuse. 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 soon Last Myocardial Infarction Date:: aug 2018 History of Any Multi-Drug Resistant Organisms: None Reported Past Surgical History: Cholecystectomy, Heart Catheterization, Orthopedic Surgery Additional Past Surgical History / Comment(s): L caratid stent, bilateral knee s urgeries for tendon repair, bartholian cyst removed bilateral wrists, cataracts Past Anesthesia/Blood Transfusion Reactions: Motion Sickness Additional Past Anesthesia/Blood Transfusion Reaction / Comment(s): Pt has received blood without reaction. Past Psychological History: Anxiety, Depression Smoking Status: Current every day smoker Past Alcohol Use History: Abuse, Daily, Heavy Past Drug Use History: Marijuana - Past Family History Mother Family Medical History: Cancer, Congestive Heart Failure (CHF), Coronary Artery Disease (CAD), Hyperlipidemia Additional Family Medical History / Comment(s): Mother at age 85 from lung cancer. Father Family Medical History: Cancer, COPD Additional Family Medical History / Comment(s): Father at age 63 from lung cancer. Brother(s) Additional Family Medical History / Comment(s): Patient has a total of 7 siblings. 5 are alive without any major medical problems she is aware of. 2 siblings have one from alcohol abuse and 1. Coronary artery disease. Daughter(s) Additional Family Medical History / Comment(s): Patient has one daughter with no major medical problems. General Exam Limitations: no limitations General appearance: alert, in no apparent distress Head exam: Present: atraumatic, normocephalic ENT exam: Present: mucous membranes dry Neck exam: Present: normal inspection. Absent: tenderness, meningismus Respiratory exam: Present: respiratory distress, wheezes, decreased breath sounds Cardiovascular Exam: Present: normal rhythm, tachycardia GI/Abdominal exam: Present: soft, distended. Absent: tenderness, guarding, rebound Extremities exam: Present: normal inspection, normal capillary refill Neurological exam: Present: alert, oriented X3, CN II-XII intact. Absent: motor sensory deficit Psychiatric exam: Present: normal affect, normal mood Skin exam: Present: warm, dry, intact. Absent: cyanosis, diaphoretic Course Vital Signs 01/06/24 03:16 Temperature 101.9 F H Pulse Rate 121 H Respiratory 18 Rate Blood Pressure 141/92 O2 Sat by Pulse 94 L Oximetry Medical Decision Making - Medical Decision Making Was pt. sent in by a medical professional or institution (, PA, TRAY PACKER, urgent care, hospital, or intermediate...) When possible be specific @ -No Did you speak to anyone other than the patient for history (EMS, parent, family, police, friend...)? What history was obtained from this source @ -No Did you review nursing and triage notes (agree or disagree)? Why? @ -I reviewed and agree with nursing and triage notes Were old charts reviewed (outside hosp., previous admission, EMS record, old EKG, old radiological studies, urgent care reports/EKG's, intermediate records)? Report findings @ -No old charts were reviewed Differential Diagnosis (chest pain, altered mental status, abdominal pain women, abdominal pain men, vaginal bleeding, weakness, fever, dyspnea, syncope, headache, dizziness, GI bleed, back pain, seizure, CVA, palpatations, mental health, musculoskeletal)? @ -Influenza, coronavirus, pneumonia EKG interpreted by me (3pts min.). @ -As above X-rays interpreted by me (1pt min.). @Chest x-ray negative for acute cardiopulmonary findings. CT interpreted by me (1pt min.). @ -None done U/S interpreted by me (1pt. min.). @ -None done What testing was considered but not performed or refused? (CT, X-rays, U/S, labs)? Why? @ -None What meds were considered but not given or refused? Why? @ -None Did you discuss the management of the patient with other professionals (professionals i.e. , PA, TRAY PACKER, lab, RT, psych nurse, social media specialist, waist presser, teacher, aboriginal home school liaison officer, social work case manager)? Give summary @ -EMH Was smoking cessation discussed for >3mins.? @ -No Was critical care preformed (if so, how long)? @ -No Were there social determinants of health that impacted care today? How? (Homelessness, low income, unemployed, alcoholism, drug addiction, transportation, low edu. Level, literacy, decrease access to med. care, senior care, rehab)? @ -No Was there de-escalation of care discussed even if they declined (Discuss DNR or withdrawal of care, Hospice)? DNR status @ -No What co-morbidities impacted this encounter? (DM, HTN, Smoking, COPD, CAD, Cancer, CVA, ARF, Chemo, Hep., AIDS, mental health diagnosis, sleep apnea, morbid obesity)? @ -COPD. Was patient admitted / discharged? Hospital course, mention meds given and route, prescriptions, significant lab abnormalities, going to OR and other pertinent info. @ -[63-year-old female with cough, dyspnea, vomiting and fever. Patient test positive for influenza in the emergency department. She has a normal CBC with exception of thrombocytopenia. Her sodium is 128 this is treated with normal saline. Patient does have bronchospastic cough and wheezing. She requires supplemental oxygen. She will be admitted for COPD exacerbation secondary to influenza. Undiagnosed new problem with uncertain prognosis? @ -No Drug Therapy requiring intensive monitoring for toxicity (Heparin, Nitro, Insulin, Cardizem)? @ -No Were any procedures done? @ -No Diagnosis/symptom? @ -[COPD exacerbation, influenza A Acute, or Chronic, or Acute on Chronic? @ -acute Uncomplicated (without systemic symptoms) or Complicated (systemic symptoms)? @ -Default Side effects of treatment? @ -No Exacerbation, Progression, or Severe Exacerbation? @ -No Poses a threat to life or bodily function? How? (Chest pain, [place], [place], pneumonia, PE, COPD, DKA, ARF, appy, cholecystitis, CVA, Diverticulitis, Homicidal, Suicidal, threat to staff... and all critical care pts) @ yes, resp failure. - Lab Data Result diagrams: 01/06/24 04:35 01/06/24 03:57 Lab Results 01/06/24 01/06/24 01/06/24 Range/Units 03:55 03:57 04:35 WBC 5.6 (3.8-10.6) k/uL RBC 3.81 (3.80-5.40) m/uL Hgb 11.6 (11.4-16.0) gm/dL Hct 34.1 (34.0-46.0) % MCV 89.5 (80.0-100.0) fL MCH 30.4 (25.0-35.0) pg MCHC 34.0 (31.0-37.0) g/dL RDW 17.8 H (11.5-15.5) % Plt Count 76 L (150-450) k/uL MPV 9.6 Neutrophils % 81 % Lymphocytes % 6 % Monocytes % 8 % Eosinophils % 0 % Basophils % 1 % Neutrophils # 4.6 (1.3-7.7) k/uL Lymphocytes # 0.3 L (1.0-4.8) k/uL Monocytes # 0.5 (0-1.0) k/uL Eosinophils # 0.0 (0-0.7) k/uL Basophils # 0.1 (0-0.2) k/uL Anisocytosis Slight Sodium 128 L (137-145) mmol/L Potassium 3.1 L (3.5-5.1) mmol/L Chloride 92 L (98-107) mmol/L Carbon Dioxide 27 (22-30) mmol/L Anion Gap 9 mmol/L BUN 3 L (7-17) mg/dL Creatinine 0.52 (0.52-1.04) mg/dL Est GFR (CKD-EPI)AfAm >90 (>60 ml/min/1.73 sqM) Est GFR (CKD-EPI)NonAf >90 (>60 ml/min/1.73 sqM) Glucose 114 H (74-99) mg/dL Calcium 8.7 (8.4-10.2) mg/dL Total Bilirubin 0.5 (0.2-1.3) mg/dL AST 85 H (14-36) U/L ALT 38 H (4-34) U/L Alkaline Phosphatase 106 (38-126) U/L Total Protein 6.5 (6.3-8.2) g/dL Albumin 4.0 (3.5-5.0) g/dL Serum Alcohol <10 mg/dL Influenza Type A (PCR) Detected A (Not Detectd) Influenza Type B (PCR) Not Detected (Not Detectd) RSV (PCR) Not Detected (Not Detectd) SARS-CoV-2 (PCR) Not Detected (Not Detectd) Disposition Clinical Impression: COPD exacerbation, Influenza A Disposition: ADMITTED IP TO THIS HOSP Condition: Stable Is patient prescribed a controlled substance at d/c from ED?: No Referrals: Miya Johnson MD [Primary Care Provider] - 1-2 days Time of Disposition: 05:04
[2024-01-06 04:13] LABS: ALT 38 U/L (4-34); AST 85 U/L (14-36); African American GFR (CKD) >90 (>60 ml/min/1.73 sqM); Alcohol <10 mg/dL; Alkaline Phosphatase 106 U/L (38-126); Anion Gap 9 mmol/L; Blood Urea Nitrogen 3 mg/dL (7-17); Calcium 8.7 mg/dL (8.4-10.2); Carbon Dioxide 27 mmol/L (22-30); Chloride 92 mmol/L (98-107); Glucose 114 mg/dL (74-99); Non-African American GFR(CKD) >90 (>60 ml/min/1.73 sqM); Potassium 3.1 mmol/L (3.5-5.1); Sodium 128 mmol/L (137-145); Total Bilirubin 0.5 mg/dL (0.2-1.3); Total Protein 6.5 g/dL (6.3-8.2)
--- NOTE | 2024-01-06 04:24 | XR ---
EXAMINATION TYPE: XR chest 1V portable DATE OF EXAM: 01/06/2024 COMPARISON: Chest x-ray December 18, 2023 HISTORY: Fever/cough. Weakness. TECHNIQUE: Single frontal view of the chest is obtained. FINDINGS: Exam slightly suboptimal as entire right lateral lung base is not included. There is no fo edyta air space opacity, pleural effusion, or pneumothorax seen. The cardiac silhouette size remains w ithin normal limits. The osseous structures are intact. IMPRESSION: No acute pulmonary process.
[2024-01-06] MEDS: SODIUM CHLORIDE 0.9% 1,000 ML IV ONE (04:31)
[2024-01-06] MEDS: ACETAMINOPHEN IV (For NPO) 1,000 MG in EMPTY BAG 1 BAG IVPB STA (04:31)
[2024-01-06] MEDS: ONDANSETRON 4 MG/2 ML VIAL IVP STA (04:32)
[2024-01-06 04:40] LABS: Anisocytosis Slight; Basophils # (A) 0.1 k/uL (0-0.2); Basophils % (A) 1 %; Eosinophils % (A) 0 %; HCT 34.1 % (34.0-46.0); HGB 11.6 gm/dL (11.4-16.0); Lymphocytes # (A) 0.3 k/uL (1.0-4.8); Lymphocytes % (A) 6 %; MCH 30.4 pg (25.0-35.0); MCV 89.5 fL (80.0-100.0); Mean Platelet Volume 9.6; Monocytes # (A) 0.5 k/uL (0-1.0); Monocytes % (A) 8 %; Neutrophils # (A) 4.6 k/uL (1.3-7.7); Neutrophils % (A) 81 %; RBC 3.81 m/uL (3.80-5.40); RDW 17.8 % (11.5-15.5); WBC 5.6 k/uL (3.8-10.6)
[2024-01-06] MEDS: OSELTAMIVIR 75 MG CAP PO STA (04:43)
[2024-01-06 04:58] LABS: Platelet Count 76 k/uL (150-450)
[2024-01-06] MEDS ORDERED: NALOXONE 0.4 MG/ML 1 ML VIAL IVP PRN (04:59)
[2024-01-06] MEDS: methylPREDNISolone SOD SUCCI 125 MG/2 ML VIAL IV STA (05:17)
[2024-01-06] MEDS: SODIUM CHLORIDE 0.9% 1,000 ML IV SCH (05:22)
[2024-01-06] MEDS: IPRATROPIUM-ALBUTEROL 3 ML NEB INHALATION SCH (09:15)
[2024-01-06] MEDS ORDERED: DEXTROSE 50% SYRINGE 50 ML IVP PRN ×2 (09:16)
[2024-01-06 09:30] LABS: Appearance,Urine Clear (Clear); Bilirubin,Urine Negative (Negative); Blood,Urine Negative (Negative); Color,Urine Colorless; Glucose,Urine (UA) Negative (Negative); Ketones,Urine Negative (Negative); Leukocyte Esterase,Urine Negative (Negative); Nitrite,Urine Negative (Negative); Protein,Urine Negative (Negative); Specific Gravity,Urine 1.005 (1.001-1.035); Urobilinogen,Urine <2.0 mg/dL (<2.0)
[2024-01-06] MEDS: ONDANSETRON 4 MG/2 ML VIAL IVP PRN (10:20)
[2024-01-06] MEDS: FAMOTIDINE 20 MG/2 ML VIAL IV SCH (11:03)
[2024-01-06] MEDS: metroNIDAZOLE-NS PMX 500 MG in SALINE 1 100ML.BAG IVPB SCH (11:03)
[2024-01-06] MEDS: TICAGRELOR 90 MG TAB PO SCH (11:10)
[2024-01-06] MEDS: POTASSIUM CHLORIDE ER 20 MEQ TAB.ER PO STA ×3 (11:40→13:12)
[2024-01-06] MEDS: SYMBICORT 160-4.5 MCG INHALER INHALATION SCH (11:43)
[2024-01-06] MEDS ORDERED: methylPREDNISolone SOD SUCCI 125 MG/2 ML VIAL IV SCH (12:00)
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
[2024-01-06 12:59] LABS: Glucose,Whole Blood 186 mg/dL (70-110)
[2024-01-06] MEDS: INSULIN ASPART (NovoLOG) 100 UNIT/ML VIAL SQ SCH (13:11)
[2024-01-06] MEDS: SODIUM CHLORIDE 0.9% 1,000 ML with POTASSIUM CHLORIDE 10 MEQ IV SCH (13:30)
[2024-01-06] MEDS: ACETAMINOPHEN TAB 325 MG TAB PO PRN (14:17)
[2024-01-06] MEDS: guaiFENesin SYRUP 100MG/5ML 200 MG/10 ML CUP PO PRN (15:34)
[2024-01-06 20:19] LABS: Glucose,Whole Blood 155 mg/dL (70-110)
[2024-01-06] MEDS: ASPIRIN 81 MG PO SCH (20:46)
[2024-01-06] MEDS: HEPARIN SODIUM,PORCINE 5,000 UNIT/ML 1 ML VIAL SQ SCH (20:46)
[2024-01-06] MEDS: OSELTAMIVIR 75 MG CAP PO SCH (20:46)
[2024-01-06] MEDS: ATORVASTATIN 20 MG TAB PO SCH (20:46)
[2024-01-06] MEDS: BENZOCAINE/MENTHOL LOZENG 1 EACH LOZENGE MUCOUS MEM PRN (23:00)
[2024-01-07] MEDS: IPRATROPIUM-ALBUTEROL 3 ML NEB INHALATION PRN (05:16)
[2024-01-07 06:06] LABS: Glucose,Whole Blood 116 mg/dL (70-110)
[2024-01-07 07:52] VITALS: RESP 17
[2024-01-07] MEDS: THIAMINE 100 MG TAB PO SCH (09:13)
[2024-01-07 11:19] LABS: ALT 41 U/L (8-44); AST 60 U/L (13-35); Albumin 3.8 g/dL (3.8-4.9); Albumin/Globulin Ratio 1.65 Ratio (1.60-3.17); Alkaline Phosphatase 100 U/L (41-126); BUN/Creat Ratio 13.67 Ratio (12.00-20.00); Blood Urea Nitrogen 8.2 mg/dL (9.0-27.0); Calcium 8.8 mg/dL (8.7-10.3); Carbon Dioxide 24.7 mmol/L (21.6-31.8); Chloride 103 mmol/L (96-109); Globulin 2.3 g/dL (1.6-3.3); Glucose 106 mg/dL (70-110); Potassium 3.6 mmol/L (3.5-5.5); Sodium 140 mmol/L (135-145); Total Bilirubin <0.2 mg/dL (0.3-1.2); Total Protein 6.1 g/dL (6.2-8.2)
[2024-01-07 11:56] LABS: Glucose,Whole Blood 125 mg/dL (70-110)
[2024-01-07 14:40] VITALS: BP 116/84; TEMP 97.5
[2024-01-07 15:42] VITALS: PULSE 88
[2024-01-07] MEDS: KETOROLAC 15 MG/ML 1 ML VIAL IVP STA (16:00)
[2024-01-07 16:55] LABS: Glucose,Whole Blood 113 mg/dL (70-110)
--- NOTE | 2024-01-08 14:02 | P.DS ---
Providers Date of admission: 01/06/24 05:00 Expected date of discharge: 01/07/24 Attending physician: Hellen Jackson Primary care physician: Miya Johnson [place] [facility] Course: Final diagnosis -Acute influenza A infection -Acute COPD exacerbation secondary to above. -Recent admission for diverticulitis , unable to tolerate the oral antibiotics sent outpatient and has been resumed on IV ceftriazone and IV metronidazole while inpatient. Continue previous antibiotics on discharge -Chronic alcoholism -Continue nicotine use: Counseling was provided -Hypertension -History of seizure disorder -Coronary artery disease with chronic occlusion of the RCA. -Peripheral artery disease -Depression -History of stroke -History of carotid artery disease with prior intervention patient is on aspirin and brilinta. GI prophlaxis DVT prophylaxis Discharge disposition Patient is being discharged in a stable condition with guarded prognosis to home. Patient will follow-up with Dr. Sherman Cardoza. in the outpatient setting upon discharge. Patient is to continue with Tamiflu on as needed supportive care with outpatient follow-up with cardiology as scheduled. Total time taken is greater than 35 minutes. Hospital course This is a 63-year-old female who was recently admitted with increasing shortness of breath with acute COPD exacerbation also found to be acute influenza A positive. Patient was recently hospitalized with acute diverticulitis maintained on IV antibiotics. Patient transition to oral antibiotics on discharge although patient reports was unable to tolerate oral intake and continued to have nausea and vomiting. Patient was resumed on IV antibiotics and will continue oral antibiotics on discharge. Patient started on inhalers and breathing treatments along with Tamiflu and will discharge today with this. Patient instructed to follow-up with primary care provider on discharge. Encouraged complete alcohol cessation as patient is high risk for readmissions for her continued noncompliance and alcohol abuse. Patient will be discharged home today. Currently no reports of chest pain, shortness of breath, or palpitations. Patient is afebrile. No reports of nausea or vomiting and patient is tolerating diet. Patient will be discharged home today. High risk for readmissions as patient has had multiple hospitalizations and admissions for continued noncompliance and alcohol abuse Physical exam: Gen: This is a 63-year-old female who is awake, alert and oriented x 3, well- developed, well-nourished, elderly appearing HEENT: Head is atraumatic, normocephalic. Pupils equal, round. Sclerae is anicteric. NECK: Supple. No JVD. No lymphadenopathy. No thyromegaly. LUNGS: Diminished breath sounds bilaterally otherwise clear to auscultation. Faint expiratory wheezes with coarse rhonchi noted. No intercostal retractions. HEART: Regular rate and rhythm. No murmur. ABDOMEN: Soft. Obese. Bowel sounds are present. No masses. No tenderness. EXTREMITIES: No pedal edema. No calf tenderness. NEUROLOGICAL: Patient is awake, alert and oriented x3. Cranial nerves 2 through 12 are grossly intact. Please refer to medication reconciliation sheet for a list of medications. The impression and plan of care has been dictated by Tonya Adan, Nurse Practitioner as directed. Dr. Jackelin MD I have performed a history and examination and MDM of this patient, discussed the same with the dictator, and agree with the dictator's assessment and plan as written ,documented as a scribe. Based on total visit time, I have performed more than 50% of the visit. Patient Condition at Discharge: Stable Plan - Discharge Summary New Discharge Prescriptions: New Benzocaine/Menthol Lozeng [Cepacol lozenge] 1 each MUCOUS MEM Q4HR PRN #0 lozenge PRN Reason: Cough Ipratropium-Albuterol Nebulize [Duoneb 0.5 mg-3 mg/3 ml Soln] 3 ml INHALATION RT-QID #100 each Ipratropium-Albuterol Nebulize [Duoneb 0.5 mg-3 mg/3 ml Soln] 3 ml INHALATION RT-Q2H PRN each PRN Reason: Shortness Of Breath Or Wheezing Famotidine [Pepcid] 20 mg PO BID #60 tablet guaiFENesin SYRUP 100MG/5ML [Robitussin] 200 mg PO TID PRN #120 ml PRN Reason: Cough Ipratropium-Albuterol Nebulize [Duoneb 0.5 mg-3 mg/3 ml Soln] 3 ml INHALATION QID #90 each Oseltamivir [Tamiflu] 75 mg PO Q12HR 3 Days #6 cap Benzonatate [Tessalon Perle] 200 mg PO TID PRN #10 cap PRN Reason: Cough Ketorolac [Toradol] 10 mg PO Q6HR PRN #10 tab PRN Reason: Pain Ondansetron Odt [Zofran Odt] 4 mg PO Q8HR PRN #20 tab PRN Reason: Nausea Continue Aspirin EC [Ecotrin Low Dose] 81 mg PO HS Ticagrelor [Brilinta] 90 mg PO HS Budesonide/Formoterol Fumarate [Symbicort 160-4.5 Mcg Inhaler] 2 puff INHALA TION RT-BID Multivitamin [Multivitamins Adult Gummies] 2 tab PO HS Metoprolol Succinate (ER) [Toprol XL] 100 mg PO HS 30 Days #30 tab Simvastatin [Zocor] 40 mg PO HS Albuterol Nebulized [Ventolin Nebulized] 2.5 mg INHALATION RT-QID PRN PRN Reason: Shortness Of Breath Isosorbide Mononitrate ER [Imdur] 60 mg PO HS 30 Days #30 tab Pantoprazole [Protonix] 40 mg PO HS cefUROXime axetiL [Ceftin] 500 mg PO BID 7 Days #14 tab metroNIDAZOLE [Flagyl] 500 mg PO TID 7 Days #21 tab Thiamine [Vitamin B-1] 100 mg PO DAILY #30 tablet Discharge Medication List Aspirin EC [Ecotrin Low Dose] 81 mg PO HS 02/11/19 [History] Simvastatin [Zocor] 40 mg PO HS 07/03/22 [History] Ticagrelor [Brilinta] 90 mg PO HS 01/14/23 [History] Albuterol Nebulized [Ventolin Nebulized] 2.5 mg INHALATION RT-QID PRN 05/17/23 [History] Budesonide/Formoterol Fumarate [Symbicort 160-4.5 Mcg Inhaler] 2 puff INHALATION RT-BID 07/29/23 [History] Multivitamin [Multivitamins Adult Gummies] 2 tab PO HS 12/04/23 [History] Isosorbide Mononitrate ER [Imdur] 60 mg PO HS 30 Days #30 tab 12/07/23 [Rx] Metoprolol Succinate (ER) [Toprol XL] 100 mg PO HS 30 Days #30 tab 12/07/23 [Rx] Pantoprazole [Protonix] 40 mg PO HS 01/02/24 [History] Thiamine [Vitamin B-1] 100 mg PO DAILY #30 tablet 01/04/24 [Rx] cefUROXime axetiL [Ceftin] 500 mg PO BID 7 Days #14 tab 01/04/24 [Rx] metroNIDAZOLE [Flagyl] 500 mg PO TID 7 Days #21 tab 01/04/24 [Rx] Benzocaine/Menthol Lozeng [Cepacol lozenge] 1 each MUCOUS MEM Q4HR PRN #0 lozenge 01/07/24 [Rx] Benzonatate [Tessalon Perle] 200 mg PO TID PRN #10 cap 01/07/24 [Rx] Famotidine [Pepcid] 20 mg PO BID #60 tablet 01/07/24 [Rx] Ipratropium-Albuterol Nebulize [Duoneb 0.5 mg-3 mg/3 ml Soln] 3 ml INHALATION QID #90 each 01/07/24 [Rx] Ipratropium-Albuterol Nebulize [Duoneb 0.5 mg-3 mg/3 ml Soln] 3 ml INHALATION RT-Q2H PRN each 01/07/24 [Rx] Ipratropium-Albuterol Nebulize [Duoneb 0.5 mg-3 mg/3 ml Soln] 3 ml INHALATION RT-QID #100 each 01/07/24 [Rx] Ketorolac [Toradol] 10 mg PO Q6HR PRN #10 tab 01/07/24 [Rx] Ondansetron Odt [Zofran Odt] 4 mg PO Q8HR PRN #20 tab 01/07/24 [Rx] Oseltamivir [Tamiflu] 75 mg PO Q12HR 3 Days #6 cap 01/07/24 [Rx] guaiFENesin SYRUP 100MG/5ML [Robitussin] 200 mg PO TID PRN #120 ml 01/07/24 [Rx] Follow up Appointment(s)/Referral(s): Miya Johnson MD [Primary Care Provider] - 1-2 days Patient Instructions/Handouts: Influenza (DC), COPD (Chronic Obstructive Pulmonary Disease) (IP) Activity/Diet/Wound Care/Special Instructions: Activity limited until follow-up Follow-up with primary care provider on discharge Continue Tamiflu for 3 more days to complete the course Continue with oral antibiotics Continue with nausea medication as needed Continue low fiber/heart healthy diet until abdominal pain is improved Discharge Disposition: HOME SELF-CARE
== END 2024-01-07 19:00 | disposition home or self-care (01) ==
LOC: EC 03:14 → 6NMEDSUR 05:00
PROVIDERS: ADMIT Internal Medicine; ATTEND Internal Medicine
DX: J10.1 Influenza due to other identified influenza virus with other respiratory manifestations (principal); J44.1 Chronic obstructive pulmonary disease with (acute) exacerbation; I25.10 Atherosclerotic heart disease of native coronary artery without angina pectoris; F10.20 Alcohol dependence, uncomplicated; I10 Essential (primary) hypertension; K70.30 Alcoholic cirrhosis of liver without ascites; G40.909 Epilepsy, unspecified, not intractable, without status epilepticus; I73.9 Peripheral vascular disease, unspecified; F17.210 Nicotine dependence, cigarettes, uncomplicated; K52.9 Noninfective gastroenteritis and colitis, unspecified; I25.2 Old myocardial infarction; F41.9 Anxiety disorder, unspecified; I69.351 Hemiplegia and hemiparesis following cerebral infarction affecting right dominant side; K57.32 Diverticulitis of large intestine without perforation or abscess without bleeding; F32.A Depression, unspecified; Z11.52 Encounter for screening for COVID-19; Z79.82 Long term (current) use of aspirin; Z91.199 Patient's noncompliance with other medical treatment and regimen due to unspecified reason; Z82.49 Family history of ischemic heart disease and other diseases of the circulatory system; Z79.51 Long term (current) use of inhaled steroids
CPT/HCPCS: 96376 ×2; 96361 ×2; 96365; 96366; 96372 ×2; 96375; 99285; 36415; 94640 ×4; 94760; 97162; 97166; 80053 ×2; 83735; 85025; 81003; 83036; 84145; 87636; 71045; G0378 ×2; G0480; J1644 ×2; J2930; J2405; J3480 ×2; J0696 ×2; J3490 ×2; J0131; J1885; J1836 ×2; 80320

== ENCOUNTER 2024-01-14 23:57 | Inpatient (IN) | payer OTHER ==
--- NOTE | 2024-01-15 00:12 | ED ---
SOB HPI - General Chief Complaint: Shortness of Breath Stated Complaint: SOB Time Seen by Provider: 01/15/24 00:02 Source: patient, EMS Mode of arrival: EMS Limitations: no limitations - History of Present Illness Initial Comments: 63-year-old female present with chief complaint of shortness of breath. Patient states that her neighbor came over to her house and she believes infected her with influenza. She has been coughing. She states that she was drinking whiskey this evening to help her breathing and cough. She does not remember how much she drank. She does have history of alcohol abuse. Cannot tell me how much she normally drinks in a day. She admits to nausea vomiting and diarrhea. Denies chest pain. Does not wear home oxygen - Related Data Home Medications Medication Instructions Recorded Confirmed Aspirin EC [Ecotrin Low Dose] 81 mg PO HS 02/11/19 01/15/24 Simvastatin [Zocor] 40 mg PO HS 07/03/22 01/15/24 Ticagrelor [Brilinta] 90 mg PO HS 01/14/23 01/15/24 Albuterol Nebulized [Ventolin 2.5 mg INHALATION RT-QID PRN 05/17/23 01/15/24 Nebulized] Budesonide/Formoterol Fumarate 2 puff INHALATION RT-BID 07/29/23 01/15/24 [Symbicort 160-4.5 Mcg Inhaler] Multivitamin [Multivitamins Adult 2 tab PO HS 12/04/23 01/15/24 Gummies] Pantoprazole [Protonix] 40 mg PO HS 01/02/24 01/15/24 Benzocaine/Menthol Lozeng [Cepacol 1 lozenge MUCOUS MEM Q4HR PRN 01/15/24 01/15/24 lozenge] Ibuprofen [Motrin Ib] 400 mg PO Q8H PRN 01/15/24 01/15/24 Ibuprofen [Motrin Ib] 600 mg PO BID 01/15/24 01/15/24 Previous Rx's Medication Instructions Recorded Isosorbide Mononitrate ER [Imdur] 60 mg PO HS 30 Days #30 tab 12/07/23 Metoprolol Succinate (ER) [Toprol 100 mg PO HS 30 Days #30 tab 12/07/23 XL] Thiamine [Vitamin B-1] 100 mg PO DAILY #30 tablet 01/04/24 Benzonatate [Tessalon Perle] 200 mg PO TID PRN #10 cap 01/07/24 Famotidine [Pepcid] 20 mg PO BID #60 tablet 01/07/24 Ipratropium-Albuterol Nebulize 3 ml INHALATION RT-Q2H PRN each 01/07/24 [Duoneb 0.5 mg-3 mg/3 ml Soln] Ipratropium-Albuterol Nebulize 3 ml INHALATION RT-QID #100 each 01/07/24 [Duoneb 0.5 mg-3 mg/3 ml Soln] Ondansetron Odt [Zofran Odt] 4 mg PO Q8HR PRN #20 tab 01/07/24 guaiFENesin SYRUP 100MG/5ML 200 mg PO TID PRN #120 ml 01/07/24 [Robitussin] Allergies Allergy/AdvReac Type Severity Reaction Status Date / Time [place] [employer]atives Allergy Rash/Hives Verified 01/15/24 07:55 [[place]] latex Allergy Rash/Hives Verified 01/15/24 07:55 Influenza Virus Vaccines AdvReac Nausea & Verified 01/15/24 07:55 Vomiting morphine AdvReac Nausea & Verified 01/15/24 07:55 Vomiting tomato AdvReac Diarrhea Verified 01/15/24 07:55 Review of Systems ROS Statement: Those systems with pertinent positive or pertinent negative responses have been documented in the HPI. ROS Other: All systems not noted in ROS Statement are negative. Past Medical History Past Medical History: Asthma, Coronary Artery Disease (CAD), COPD, CVA/TIA, Eye Disorder, Hypertension, Liver Disease, Myocardial Infarction (NE), Seizure Disorder, Vascular Disorder Additional Past Medical History / Comment(s): Pt recently admitted to [facility] for diarrhea, ETOH abuse. 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 soon Last Myocardial Infarction Date:: aug 2018 History of Any Multi-Drug Resistant Organisms: None Reported Past Surgical History: Cholecystectomy, Heart Catheterization, Orthopedic Surgery Additional Past Surgical History / Comment(s): L caratid stent, bilateral knee surgeries for tendon repair, bartholian cyst removed bilateral wrists, cataracts Past Anesthesia/Blood Transfusion Reactions: Motion Sickness Additional Past Anesthesia/Blood Transfusion Reaction / Comment(s): Pt has received blood without reaction. Past Psychological History: Anxiety, Depression Smoking Status: Current every day smoker Past Alcohol Use History: Abuse, Daily, Heavy Past Drug Use History: Marijuana - Past Family History Mother Family Medical History: Cancer, Congestive Heart Failure (CHF), Coronary Artery Disease (CAD), Hyperlipidemia Additional Family Medical History / Comment(s): Mother at age 85 from lung cancer. Father Family Medical History: Cancer, COPD Additional Family Medical History / Comment(s): Father at age 63 from lung cancer. Brother(s) Additional Family Medical History / Comment(s): Patient has a total of 7 siblings. 5 are alive without any major medical problems she is aware of. 2 siblings have one from alcohol abuse and 1. Coronary artery disease. Daughter(s) Additional Family Medical History / Comment(s): Patient has one daughter with no major medical problems. General Exam Limitations: no limitations General appearance: alert, appears intoxicated Head exam: Present: atraumatic, normocephalic Eye exam: Present: normal appearance Neck exam: Present: normal inspection Respiratory exam: Present: wheezes. Absent: respiratory distress, rales, rhonchi, stridor Cardiovascular Exam: Present: regular rate, normal rhythm, normal heart sounds. Absent: systolic murmur, diastolic murmur, rubs, gallop, clicks Neurological exam: Present: alert, oriented X3 Psychiatric exam: Present: normal affect, normal mood Skin exam: Present: warm, dry Course Vital Signs 01/15/24 01/15/24 01/15/24 00:02 01:08 01:13 Temperature 98.0 F Pulse Rate 89 79 84 Respiratory 18 Rate Blood Pressure 138/100 O2 Sat by Pulse 94 L Oximetry 01/15/24 01/15/24 01/15/24 01:51 03:00 03:28 Temperature Pulse Rate 76 85 89 Respiratory 18 16 Rate Blood Pressure 148/78 142/84 O2 Sat by Pulse 94 L 95 Oximetry 01/15/24 01/15/24 01/15/24 03:34 03:45 05:16 Temperature Pulse Rate 92 89 Respiratory 18 Rate Blood Pressure O2 Sat by Pulse 94 L 94 L Oximetry 01/15/24 01/15/24 01/15/24 06:13 08:19 08:55 Temperature Pulse Rate 95 89 Respiratory 22 16 Rate Blood Pressure 124/86 190/113 O2 Sat by Pulse 94 L Oximetry 01/15/24 01/15/24 01/15/24 09:03 10:56 12:12 Temperature Pulse Rate 64 80 80 Respiratory 16 18 16 Rate Blood Pressure 161/97 O2 Sat by Pulse 94 L Oximetry 01/15/24 01/15/24 01/15/24 12:23 15:25 15:53 Temperature 98.3 F Pulse Rate 84 82 Respiratory 16 18 Rate Blood Pressure 182/104 188/93 O2 Sat by Pulse 94 L Oximetry Medical Decision Making - Medical Decision Making Was pt. sent in by a medical professional or institution (, PA, SHRUB PLANTER, urgent care, hospital, or long term...) When possible be specific @ -No Did you speak to anyone other than the patient for history (EMS, parent, family, police, friend...)? What history was obtained from this source @ -No Did you review nursing and triage notes (agree or disagree)? Why? @ -I reviewed and agree with nursing and triage notes Were old charts reviewed (outside hosp., previous admission, EMS record, old EKG, old radiological studies, urgent care reports/EKG's, long term records)? Report findings @ -No old charts were reviewed Differential Diagnosis (chest pain, altered mental status, abdominal pain women, abdominal pain men, vaginal bleeding, weakness, fever, dyspnea, syncope, headache, dizziness, GI bleed, back pain, seizure, CVA, palpatations, mental health, musculoskeletal)? @ -MDM Differential Dyspnea: Coronary syndrome, arrhythmia, tamponade, asthma, COPD, pulmonary embolism, pneumonia, pneumothorax, pulmonary effusion, anaphylaxis, diabetic ketoacidosis, flailed chest, pulmonary contusion, diaphragmatic rupture, anemia, neuromuscular this is not meant to be an all-inclusive list. EKG interpreted by me (3pts min.). @ -EKG shows sinus rhythm ventricular rate 79. TX interval 142. QRS 93. QT 400. QTc 435. X-rays interpreted by me (1pt min.). @ -Negative chest x-ray CT interpreted by me (1pt min.). @ -None done U/S interpreted by me (1pt. min.). @ -None done What testing was considered but not performed or refused? (CT, X-rays, U/S, labs)? Why? @ -None What meds were considered but not given or refused? Why? @ -None Did you discuss the management of the patient with other professionals (professionals i.e. , PA, SHRUB PLANTER, lab, RT, psych nurse, social service liaison, family lawyer, teacher, veterinary medical officer, family service caseworker)? Give summary @ -My attending spoke with the [facility] provider on-call who accepted admission Was smoking cessation discussed for >3mins.? @ -No Was critical care preformed (if so, how long)? @ -No Were there social determinants of health that impacted care today? How? (Homelessness, low income, unemployed, alcoholism, drug addiction, transportation, low edu. Level, literacy, decrease access to med. care, assisted, rehab)? @ -Alcoholism Was there de-escalation of care discussed even if they declined (Discuss DNR or withdrawal of care, Hospice)? DNR status @ -No What co-morbidities impacted this encounter? (DM, HTN, Smoking, COPD, CAD, Cancer, CVA, ARF, Chemo, Hep., AIDS, mental health diagnosis, sleep apnea, morbid obesity)? @ -COPD, smoking Was patient admitted / discharged? Hospital course, mention meds given and route, prescriptions, significant lab abnormalities, going to OR and other pertinent info. @ -63-year-old female presenting with chief complaint of shortness of breath. She is brought in via EMS. States that she was drinking whiskey at home to help with her shortness of breath but this did not help. She is a daily drinker cannot tell me how much she normally drinks in a day. Patient is initially hypoxic on room air and started on 2 L of oxygen via nasal cannula. Solu-Medrol 125 mg and 2 DuoNeb treatments are administered. Lab work shows no leukocytosis or anemia. Troponin is 0.015. She is negative for influenza AMB, RSV, and COVID. Chest x-ray shows no acute process. On reexamination the patient remains hypoxic on room air with her O2 dipping to 88%. She will be a dmitted for COPD exacerbation. Patient is agreeable with this plan. I discussed this case with my attending Dr. Novak Undiagnosed new problem with uncertain prognosis? @ -No Drug Therapy requiring intensive monitoring for toxicity (Heparin, Nitro, Insulin, Cardizem)? @ -No Were any procedures done? @ -No Diagnosis/symptom? @ -COPD exacerbation Acute, or Chronic, or Acute on Chronic? @ -Acute Uncomplicated (without systemic symptoms) or Complicated (systemic symptoms)? @ -Located Side effects of treatment? @ -No Exacerbation, Progression, or Severe Exacerbation? @ -Exacerbation Poses a threat to life or bodily function? How? (Chest pain, [place], NE, pneumonia, PE, COPD, DKA, ARF, appy, cholecystitis, CVA, Diverticulitis, Homicidal, Suicidal, threat to staff... and all critical care pts) @ -Yes - Lab Data Result diagrams: 01/15/24 01:38 01/15/24 01:38 Lab Results 01/15/24 01/15/24 01/15/24 Range/Units 00:41 01:38 01:38 WBC 5.8 (3.8-10.6) k/uL RBC 4.33 (3.80-5.40) m/uL Hgb 13.8 (11.4-16.0) gm/dL Hct 40.5 (34.0-46.0) % MCV 93.5 (80.0-100.0) fL MCH 31.8 (25.0-35.0) pg MCHC 33.9 (31.0-37.0) g/dL RDW 18.2 H (11.5-15.5) % Plt Count 225 D (150-450) k/uL MPV 8.3 Neutrophils % 37 % Lymphocytes % 49 % Monocytes % 9 % Eosinophils % 1 % Basophils % 1 % Neutrophils # 2.1 (1.3-7.7) k/uL Lymphocytes # 2.9 (1.0-4.8) k/uL Monocytes # 0.5 (0-1.0) k/uL Eosinophils # 0.1 (0-0.7) k/uL Basophils # 0.1 (0-0.2) k/uL Anisocytosis Slight PT 10.6 (10.0-12.5) sec INR 1.0 (<1.2) APTT 22.6 (22.0-30.0) sec Sodium (137-145) mmol/L Potassium (3.5-5.1) mmol/L Chloride (98-107) mmol/L Carbon Dioxide (22-30) mmol/L Anion Gap mmol/L BUN (7-17) mg/dL Creatinine (0.52-1.04) mg/dL Est GFR (CKD-EPI)AfAm (>60 ml/min/1.73 sqM) Est GFR (CKD-EPI)NonAf (>60 ml/min/1.73 sqM) Glucose (74-99) mg/dL Lactic Ac Sepsis Rflx Plasma Lactic Acid Camron (0.7-2.0) mmol/L Calcium (8.4-10.2) mg/dL Total Bilirubin (0.2-1.3) mg/dL AST (14-36) U/L ALT (4-34) U/L Alkaline Phosphatase (38-126) U/L Troponin I (0.000-0.034) ng/mL Total Protein (6.3-8.2) g/dL Albumin (3.5-5.0) g/dL Influenza Type A (PCR) Not Detected (Not Detectd) Influenza Type B (PCR) Not Detected (Not Detectd) RSV (PCR) Not Detected (Not Detectd) SARS-CoV-2 (PCR) Not Detected (Not Detectd) 01/15/24 01/15/24 01/15/24 Range/Units 01:38 01:38 01:38 WBC (3.8-10.6) k/uL RBC (3.80-5.40) m/uL Hgb (11.4-16.0) gm/dL Hct (34.0-46.0) % MCV (80.0-100.0) fL MCH (25.0-35.0) pg MCHC (31.0-37.0) g/dL RDW (11.5-15.5) % Plt Count (150-450) k/uL MPV Neutrophils % % Lymphocytes % % Monocytes % % Eosinophils % % Basophils % % Neutrophils # (1.3-7.7) k/uL Lymphocytes # (1.0-4.8) k/uL Monocytes # (0-1.0) k/uL Eosinophils # (0-0.7) k/uL Basophils # (0-0.2) k/uL Anisocytosis PT (10.0-12.5) sec INR (<1.2) APTT (22.0-30.0) sec Sodium 134 L (137-145) mmol/L Potassium 3.9 (3.5-5.1) mmol/L Chloride 98 (98-107) mmol/L Carbon Dioxide 27 (22-30) mmol/L Anion Gap 9 mmol/L BUN 4 L (7-17) mg/dL Creatinine 0.58 (0.52-1.04) mg/dL Est GFR (CKD-EPI)AfAm >90 (>60 ml/min/1.73 sqM) Est GFR (CKD-EPI)NonAf >90 (>60 ml/min/1.73 sqM) Glucose 102 H (74-99) mg/dL Lactic Ac Sepsis Rflx Plasma Lactic Acid Camron 3.4 H* (0.7-2.0) mmol/L Calcium 9.0 (8.4-10.2) mg/dL Total Bilirubin 0.5 (0.2-1.3) mg/dL AST 81 H (14-36) U/L ALT 56 H (4-34) U/L Alkaline Phosphatase 122 (38-126) U/L Troponin I 0.015 (0.000-0.034) ng/mL Total Protein 6.7 (6.3-8.2) g/dL Albumin 4.2 (3.5-5.0) g/dL Influenza Type A (PCR) (Not Detectd) Influenza Type B (PCR) (Not Detectd) RSV (PCR) (Not Detectd) SARS-CoV-2 (PCR) (Not Detectd) 01/15/24 Range/Units 03:15 WBC (3.8-10.6) k/uL RBC (3.80-5.40) m/uL Hgb (11.4-16.0) gm/dL Hct (34.0-46.0) % MCV (80.0-100.0) fL MCH (25.0-35.0) pg MCHC (31.0-37.0) g/dL RDW (11.5-15.5) % Plt Count (150-450) k/uL MPV Neutrophils % % Lymphocytes % % Monocytes % % Eosinophils % % Basophils % % Neutrophils # (1.3-7.7) k/uL Lymphocytes # (1.0-4.8) k/uL Monocytes # (0-1.0) k/uL Eosinophils # (0-0.7) k/uL Basophils # (0-0.2) k/uL Anisocytosis PT (10.0-12.5) sec INR (<1.2) APTT (22.0-30.0) sec Sodium (137-145) mmol/L Potassium (3.5-5.1) mmol/L Chloride (98-107) mmol/L Carbon Dioxide (22-30) mmol/L Anion Gap mmol/L BUN (7-17) mg/dL Creatinine (0.52-1.04) mg/dL Est GFR (CKD-EPI)AfAm (>60 ml/min/1.73 sqM) Est GFR (CKD-EPI)NonAf (>60 ml/min/1.73 sqM) Glucose (74-99) mg/dL Lactic Ac Sepsis Rflx Y Plasma Lactic Acid [place]ron (0.7-2.0) mmol/L Calcium (8.4-10.2) mg/dL Total Bilirubin (0.2-1.3) mg/dL AST (14-36) U/L ALT (4-34) U/L Alkaline Phosphatase (38-126) U/L Troponin I (0.000-0.034) ng/mL Total Protein (6.3-8.2) g/dL Albumin (3.5-5.0) g/dL Influenza Type A (PCR) (Not Detectd) Influenza Type B (PCR) (Not Detectd) RSV (PCR) (Not Detectd) SARS-CoV-2 (PCR) (Not Detectd) Disposition Clinical Impression: COPD exacerbation Disposition: ADMITTED IP TO THIS HOSP Condition: Fair Time of Disposition: 03:50
--- NOTE | 2024-01-15 00:44 | XR ---
EXAM: XR Chest, 2 Views CLINICAL HISTORY: difficulty breathing TECHNIQUE: Frontal and lateral views of the chest. COMPARISON: December 18, 2023 FINDINGS: Lungs: Unremarkable. No infiltration, atelectasis or mass density. Pleural space: Unremarkable. No pneumothorax. No pleural fluid. Heart: Unremarkable. No cardiomegaly. Mediastinum: Unremarkable. Normal mediastinal contour. Bones/joints: Unremarkable. No acute abnormalities. IMPRESSION: Negative chest x-rays.
[2024-01-15] MEDS: IPRATROPIUM-ALBUTEROL 3 ML NEB INHALATION STA ×2 (01:08→03:27)
[2024-01-15] MEDS: methylPREDNISolone SOD SUCCI 125 MG/2 ML VIAL IV STA (01:43)
[2024-01-15 02:07] LABS: Partial Thromboplastin Time 22.6 sec (22.0-30.0); Prothrombin Time 10.6 sec (10.0-12.5)
[2024-01-15 02:08] LABS: ALT 56 U/L (4-34); AST 81 U/L (14-36); African American GFR (CKD) >90 (>60 ml/min/1.73 sqM); Albumin 4.2 g/dL (3.5-5.0); Alkaline Phosphatase 122 U/L (38-126); Anion Gap 9 mmol/L; Blood Urea Nitrogen 4 mg/dL (7-17); Carbon Dioxide 27 mmol/L (22-30); Chloride 98 mmol/L (98-107); Glucose 102 mg/dL (74-99); Non-African American GFR(CKD) >90 (>60 ml/min/1.73 sqM); Potassium 3.9 mmol/L (3.5-5.1); Sodium 134 mmol/L (137-145); Total Bilirubin 0.5 mg/dL (0.2-1.3); Total Protein 6.7 g/dL (6.3-8.2)
[2024-01-15 03:03] LABS: Anisocytosis Slight; Basophils # (A) 0.1 k/uL (0-0.2); Basophils % (A) 1 %; Eosinophils # (A) 0.1 k/uL (0-0.7); Eosinophils % (A) 1 %; HCT 40.5 % (34.0-46.0); HGB 13.8 gm/dL (11.4-16.0); Lymphocytes # (A) 2.9 k/uL (1.0-4.8); Lymphocytes % (A) 49 %; MCH 31.8 pg (25.0-35.0); MCHC 33.9 g/dL (31.0-37.0); MCV 93.5 fL (80.0-100.0); Mean Platelet Volume 8.3; Monocytes # (A) 0.5 k/uL (0-1.0); Monocytes % (A) 9 %; Neutrophils # (A) 2.1 k/uL (1.3-7.7); Neutrophils % (A) 37 %; RBC 4.33 m/uL (3.80-5.40); RDW 18.2 % (11.5-15.5); WBC 5.8 k/uL (3.8-10.6)
[2024-01-15 03:21] LABS: Platelet Count 225 k/uL (150-450)
[2024-01-15] MEDS ORDERED: NALOXONE 0.4 MG/ML 1 ML VIAL IVP PRN (03:48)
[2024-01-15] MEDS ORDERED: IPRATROPIUM-ALBUTEROL 3 ML NEB INHALATION PRN ×2 (03:48→09:11)
[2024-01-15] MEDS ORDERED: LORazepam 2 MG/ML INJ IV PRN ×2 (03:51)
[2024-01-15] MEDS: SODIUM CHLORIDE 0.9% 1,000 ML IV SCH (04:13)
[2024-01-15] MEDS: ONDANSETRON 4 MG/2 ML VIAL IVP STA (04:32)
[2024-01-15] MEDS: THIAMINE 100 MG/ML 2 ML VIAL IM STA (04:36)
[2024-01-15] MEDS: IPRATROPIUM-ALBUTEROL 3 ML NEB INHALATION SCH (08:55)
[2024-01-15] MEDS ORDERED: guaiFENesin SYRUP 100MG/5ML 200 MG/10 ML CUP PO PRN (09:11)
[2024-01-15] MEDS ORDERED: ONDANSETRON ODT 4 MG TAB PO PRN (09:11)
[2024-01-15] MEDS ORDERED: BENZONATATE 100 MG CAP PO PRN (09:11)
[2024-01-15] MEDS: LORazepam 2 MG/ML INJ IV PRN (09:54)
[2024-01-15] MEDS: IBUPROFEN 400 MG TAB PO PRN (09:57)
[2024-01-15] MEDS: ISOSORBIDE MONONITRATE ER 60 MG TAB.ER.24H PO SCH (09:57)
[2024-01-15] MEDS: METOPROLOL SUCCINATE (ER) 100 MG TAB.ER.24H PO SCH (09:57)
[2024-01-15] MEDS: TICAGRELOR 90 MG TAB PO SCH (09:58)
[2024-01-15] MEDS: FAMOTIDINE 20 MG TAB PO SCH (09:58)
[2024-01-15] MEDS ORDERED: IPRATROPIUM-ALBUTEROL 3 ML NEB INHALATION SCH (12:00)
[2024-01-15] MEDS ORDERED: HYDROmorphone 0.5 MG/0.5 ML SYRINGE IVP PRN (13:27)
[2024-01-15] MEDS ORDERED: IOPAMIDOL CONTRAST (ORAL USE) VIAL PO PRN (13:28)
[2024-01-15] MEDS: PANTOPRAZOLE 40 MG/10 ML VIAL IVP SCH (14:06)
[2024-01-15] MEDS: methylPREDNISolone SOD SUCCI 125 MG/2 ML VIAL IV SCH (14:12)
[2024-01-15] MEDS: NICOTINE 14MG/24HR PATCH TRANSDERM SCH (14:13)
--- NOTE | 2024-01-15 15:55 | CT ---
EXAMINATION: CT ABDOMEN AND PELVIS WITHOUT IV CONTRAST DATE OF EXAMINATION: 01/15/2024. COMPARISON: 01/02/2024.. INDICATION: Abdominal pain. PROCEDURE: Axial CT of the abdomen and pelvis was performed with sagittal and coronal reformatted i mages without contrast enhancement. The exam is limited because some types of pathology may not be ad equately demonstrated due to lack of contrast enhancement. CT dose lowering techniques were used, to include: automated exposure control, adjustment for patient size, and/or use of iterative reconstruct ion. FINDINGS: LOWER CHEST : The visualized lung bases are clear. There are no pleural or pericardial effusions. ABDOMEN: Liver and Biliary system: There is a diffuse nodular contour to liver which is compatible with cirrh osis. The noncontrast appearance of the liver otherwise shows no mass.. Adrenal glands: Normal. Kidneys and ureters: There are no renal stones or hydronephrosis. No ureteral stones are present.. Spleen: Normal. Pancreas: Normal. Gallbladder: Surgically absent. Lymph nodes, Peritoneum and mesentery: There is no mesenteric or retroperitoneal lymphadenopathy. Gastrointestinal tract: There are no dilated loops of bowel or free intraperitoneal air. . There is some mild residual thickening of the sigmoid colonic wall along its proximal aspect without surround ing inflammation as this likely relates to a resolving colitis. There are scattered colonic diverticu li also seen within the sigmoid region. The appendix is normal. Aorta/IVC: There is significant vascular calcification within the abdominal aorta without evidence of aneurysmal dilation. IVC normal. Abdominal wall: Normal. PELVIS: Fluid: There is no free fluid in the pelvis. Lymph Nodes: There is no pelvic or inguinal lymphadenopathy.. Urinary bladder: Normal. BONES: There are no osseous destructive lesions.. ADDITIONAL SIGNIFICANT FINDINGS: None. IMPRESSION: 1. Improvement of a sigmoid colitis when compared to the previous examination. 2. No bowel obstruction or appendicitis.
[2024-01-15] MEDS: PIPERACILLIN-TAZOBACTAM 3.375 GM in SODIUM CHLORIDE 0.9% 100 ML IVPB SCH (16:18)
--- NOTE | 2024-01-15 17:33 | P.CNPUL ---
History of Present Illness Consult date: 01/15/24 Requesting physician: Mark Cardoza Reason for consult: COPD Chief complaint: Shortness of breath History of present illness: This is a 63-year-old female, frequently in the hospital either admitted or in the ER, patient was last discharged out of the hospital on 01/07/2024, and she was also discharged out of the hospital on 01/04/2024 patient was also discharged on 12/20/2023 patient was also discharged on 12/07/2023, obviously the patient gets admitted quite frequently and gets discharged quite frequently and this time she came in with mostly symptoms of shortness of breath for the last few days on her last admission patient was diagnosed with acute influenza A infection COPD, diverticulitis, patient has chronic alcoholism, hypertension, seizure disorder, coronary artery disease and occlusion of RCA, patient is also known to have history of depression, at any rate this time the patient came in with multiple vague symptoms including not feeling well, shortness of breath, minimal cough, no wheezing, no fever, no chills, no hemoptysis. Patient also has some vague abdominal pains. Chest x-ray was normal, CBC was normal, basic metabolic profile was normal, screening for influenza A influenza B and RSV as well as SARS were all negative. Nonetheless the patient was admitted and this consult was initiated physical examination the patient sounded quite clear, hardly any wheezing noted on physical examination Review of Systems REVIEW OF SYSTEMS: CONSTITUTIONAL: Generalized weakness and fatigue EYES: Negative. ENT: Negative. CARDIAC: Negative. PULMONARY: Shortness of breath, occasional cough and wheezing GI: Vague abdominal pain and discomfort GENITOURINARY: Negative. MUSCULOSKELETAL: Negative. SKIN: Negative. NEUROPSYCH: Negative. ENDOCRINE: Negative. HEMATOLOGIC: Negative. 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 cataract surgery 2022 Past Anesthesia/Blood Transfusion Reactions: Motion Sickness Additional Past Anesthesia/Blood Transfusion Reaction / Comment(s): Pt has received blood without reaction. Past Psychological History: Anxiety, Depression Additional Psychological History / Comment(s): She uses a walker to ambulate. She has a nebulizer. She no longer drives, Pt. manages her own meds. Smoking Status: Current every day smoker Past Alcohol Use History: Abuse, Daily, Heavy Additional Past Alcohol Use History / Comment(s): Pt started smoking as a teen and has cut down to 1/2 pack per day. Drinks a few alcoholic drinks daily. Past Drug Use History: Marijuana Additional Drug Use History / Comment(s): Pt has medical marijuana, reports she has not used it in a while. (Doesn't like the way it makes her feel) - Past Family History Mother Family Medical History: Cancer, Congestive Heart Failure (CHF), Coronary Artery Disease (CAD), Hyperlipidemia Additional Family Medical History / Comment(s): Mother at age 85 from lung cancer. Father Family Medical History: Cancer, COPD Additional Family Medical History / Comment(s): Father at age 63 from lung cancer. Brother(s) Additional Family Medical History / Comment(s): Patient has a total of 7 siblings. 5 are alive without any major medical problems she is aware of. 2 siblings have one from alcohol abuse and 1. Coronary artery disease. Daughter(s) Family Medical History: No Reported History Additional Family Medical History / Comment(s): Patient has one daughter with no major medical problems. Medications and Allergies Home Medications Medication Instructions Recorded Confirmed Type Aspirin EC [Ecotrin Low Dose] 81 mg PO HS 02/11/19 01/15/24 History Simvastatin [Zocor] 40 mg PO HS 07/03/22 01/15/24 History Ticagrelor [Brilinta] 90 mg PO HS 01/14/23 01/15/24 History Albuterol Nebulized [Ventolin 2.5 mg INHALATION RT-QID PRN 05/17/23 01/15/24 History Nebulized] Budesonide/Formoterol Fumarate 2 puff INHALATION RT-BID 07/29/23 01/15/24 History [Symbicort 160-4.5 Mcg Inhaler] Multivitamin [Multivitamins Adult 2 tab PO HS 12/04/23 01/15/24 History Gummies] Isosorbide Mononitrate ER [Imdur] 60 mg PO HS 30 Days #30 tab 12/07/23 01/15/24 Rx Metoprolol Succinate (ER) [Toprol 100 mg PO HS 30 Days #30 tab 12/07/23 01/15/24 Rx XL] Pantoprazole [Protonix] 40 mg PO HS 01/02/24 01/15/24 History Thiamine [Vitamin B-1] 100 mg PO DAILY #30 tablet 01/04/24 01/15/24 Rx Benzonatate [Tessalon Perle] 200 mg PO TID PRN #10 cap 01/07/24 01/15/24 Rx Famotidine [Pepcid] 20 mg PO BID #60 tablet 01/07/24 01/15/24 Rx Ipratropium-Albuterol Nebulize 3 ml INHALATION RT-Q2H PRN each 01/07/24 Rx [Duoneb 0.5 mg-3 mg/3 ml Soln] Ipratropium-Albuterol Nebulize 3 ml INHALATION RT-QID #100 each 01/07/24 01/15/24 Rx [Duoneb 0.5 mg-3 mg/3 ml Soln] Ondansetron Odt [Zofran Odt] 4 mg PO Q8HR PRN #20 tab 01/07/24 01/15/24 Rx guaiFENesin SYRUP 100MG/5ML 200 mg PO TID PRN #120 ml 01/07/24 01/15/24 Rx [Robitussin] Benzocaine/Menthol Lozeng [Cepacol 1 lozenge MUCOUS MEM Q4HR PRN 01/15/24 01/15/24 History lozenge] Ibuprofen [Motrin Ib] 400 mg PO Q8H PRN 01/15/24 01/15/24 History Ibuprofen [Motrin Ib] 600 mg PO BID 01/15/24 01/15/24 History Allergies Allergy/AdvReac Type Severity Reaction Status Date / Time [place] And Derivatives Allergy Rash/Hives Verified 01/15/24 07:55 [[place]ac] latex Allergy Rash/Hives Verified 01/15/24 07:55 Influenza Virus Vaccines AdvReac Nausea & Verified 01/15/24 07:55 Vomiting morphine AdvReac Nausea & Verified 01/15/24 07:55 Vomiting tomato AdvReac Diarrhea Verified 01/15/24 07:55 Physical Exam Vitals: Vital Signs Temp Pulse Resp BP Pulse Ox 01/15/24 15:53 188/93 01/15/24 15:25 98.3 F 82 18 182/104 94 L 01/15/24 12:23 84 16 01/15/24 12:12 80 16 01/15/24 10:56 80 18 161/97 94 L 01/15/24 09:03 64 16 01/15/24 08:55 89 16 94 L 01/15/24 08:19 95 22 190/113 01/15/24 06:13 124/86 01/15/24 05:16 89 18 94 L 01/15/24 03:45 94 L 01/15/24 03:34 92 01/15/24 03:28 89 01/15/24 03:00 85 16 142/84 95 01/15/24 01:51 76 18 148/78 94 L 01/15/24 01:13 84 01/15/24 01:08 79 01/15/24 00:02 98.0 F 89 18 138/100 94 L Intake and Output 01/15/24 01/15/24 01/15/24 06:59 14:59 22:59 Other: Weight 72.575 kg 72.575 kg General: The patient is awake and alert, in no distress, and does not appear acutely ill. On 4 L nasal cannula Skin: Skin is warm and dry and no rashes or lesions are noted. Eye: Pupils are equal, round and reactive to light, extra-ocular movements are intact; there is normal conjunctiva bilaterally. Ears, nose, mouth and throat: There are moist mucous membranes and no oral lesions. Neck: The neck is supple, there is no tenderness or JVD. Cardiovascular: There is a regular rate and rhythm. No murmur, rub or gallop is appreciated. Respiratory: Clear throughout no crackles rhonchi or wheezes Gastrointestinal: Soft, non-distended, non-tender abdomen without masses or organomegaly noted. There is no rebound or guarding present. Bowel sounds are unremarkable. Back: There is no tenderness to palpation in the midline. There is no obvious deformity. Musculoskeletal: Normal ROM, no tenderness, There is no pedal edema. There is no calf tenderness or swelling. No cords were appreciated. Neurological: CN II-XII intact, Cranial nerves III through XII are intact. There are no obvious motor or sensory deficits. Coordination appears grossly intact. Speech is normal. Psychiatric: Cooperative, appropriate mood & affect, normal judgment. Results - Laboratory Findings CBC and BMP: 01/15/24 01:38 01/15/24 01:38 PT/INR, D-dimer PT 10.6 sec (10.0-12.5) 01/15/24 01:38 INR 1.0 (<1.2) 01/15/24 01:38 Abnormal lab findings: Abnormal Labs 01/15/24 01/15/24 01/15/24 01:38 01:38 01:38 RDW 18.2 H Sodium 134 L BUN 4 L Glucose 102 H Plasma Lactic Acid Camron 3.4 H* AST 81 H ALT 56 H 01/15/24 01/15/24 05:37 08:39 RDW Sodium BUN Glucose Plasma Lactic Acid Camron 3.3 H* 3.1 H* AST ALT - Diagnostic Findings Chest x-ray: image reviewed (Chest x-ray is normal) Additional studies: CT of the abdomen pelvis is basically unremarkable Assessment and Plan Assessment: Impression: Acute exacerbation of COPD Recent influenza infection but negative screening on this admission History of diverticulitis Chronic alcoholism Benign essential hypertension Coronary arteriosclerosis and previous stent of RCA History of seizure disorder Peripheral vessel occlusive disease Recommendation: Discussed and reviewed with the patient her workup so far Continue present treatment plan Resume home meds including bronchodilators [place] protocol Consider discharge planning in the next 24 hours Discontinue Solu-Medrol Doubt even need for antibiotics, patient had diverticulitis that has been mati hafsa already. Clinically doubt active diverticulitis Time with Patient: Greater than 30
[2024-01-15] MEDS: SYMBICORT 160-4.5 MCG INHALER INHALATION SCH (19:28)
--- NOTE | 2024-01-15 20:43 | HP ---
HISTORY AND PHYSICAL CHIEF COMPLAINTS: Shortness of breath and abdominal pain. HISTORY OF PRESENT ILLNESS: This is a 63-year-old woman with a past medical history of multiple medical problems, admitted with COPD, flu A, and diverticulitis recently. The patient apparently left the hospital earlier and currently the patient is still complaining of almost similar symptoms. The patient smoked 8 days ago according to her. There is no history of any fever, rigors, or chills at this time. The abdominal pain is diffuse. Abdomen is mildly distended. As mentioned earlier, descending colon diverticulitis was seen in the recent CAT scan. The chest x-ray was negative. The patient is also complaining of right leg numbness. PAST MEDICAL HISTORY: Reviewed include COPD, asthma, CAD, recent medical issues as listed above. Rest of the history and rest of the chart is noted. HOME MEDICATIONS: Reviewed include guaifenesin. Rest of the medications noted. ALLERGIES: Latex. Rest of the allergies noted. FAMILY HISTORY: History of CHF, CAD. SOCIAL HISTORY: Alcohol abuse and smoking. REVIEW OF SYSTEMS: Fourteen-point review is negative except as mentioned earlier. PHYSICAL EXAMINATION: VITAL SIGNS: Pulse 80, blood pressure 161/97, respirations 18. HEENT: Conjunctivae normal. NECK: No JVD. CARDIOVASCULAR: S1, S2. No murmurs. RESPIRATIONS: Breath sounds diminished at the bases. A few scattered rhonchi and crackles. ABDOMEN: Soft, mild diffuse discomfort. No guarding. No mass palpable. LEGS: No edema. NERVOUS SYSTEM: Nonfocal. SKIN: No ulcer, rash, bleeding. JOINTS: No active deforming arthropathy. LABORATORY DATA: Lactic acid is 3.1 and 3.3. The rest of the labs are noted. ASSESSMENT: 1. Chronic obstructive pulmonary disease acute exacerbation with acute tracheobronchitis. 2. History of recent flu. 3. Possible descending colon diverticulitis. 4. History of asthma. 5. Hypertension. 6. History of liver disease. 7. ETOH. 8. History of nicotine dependence. 9. History of seizure disorder. 10.Multiple complex medical issues. RECOMMENDATIONS AND DISCUSSION: This is a 63-year-old woman presented with multiple complex medical issues, we will monitor the patient closely. Recommend intensive bronchodilators, steroids. Pulmonary consultation. I would also recommend surgical evaluation for diverticulitis. Empiric antibiotics will be initiated. EtOH cessation advice was given. Otherwise, Algorithm Developer to follow. [place] protocol. Continue the home medications once they are confirmed and symptomatic treatment for the pain. Overall prognosis extremely guarded because of multiple complex medical issues as mentioned earlier, and further recommendations to follow. I would also recommend Infectious Disease evaluation. KALPANA / SHANNON: [phone] /
[2024-01-15] MEDS: ATORVASTATIN 20 MG TAB PO SCH (20:49)
[2024-01-15] MEDS: MULTIVITAMINS, THERA 1 EACH TAB PO SCH (20:49)
[2024-01-15] MEDS: ASPIRIN 81 MG PO SCH (20:50)
[2024-01-15] MEDS: HEPARIN SODIUM,PORCINE 5,000 UNIT/ML 1 ML VIAL SQ SCH (20:51)
[2024-01-15] MEDS ORDERED: PANTOPRAZOLE 40 MG TABLET PO SCH (21:00)
[2024-01-15] MEDS: BENZOCAINE/MENTHOL LOZENG 1 EACH LOZENGE MUCOUS MEM PRN (21:48)
--- NOTE | 2024-01-16 08:27 | P.CONS ---
History of Present Illness - Reason for Consult Consult date: 01/15/24 - History of Present Illness Patient is a 63-year-old female with a past medical history significant for COPD CVA TIA hypertension [place] seizure disorder apparently the patient was recently admitted at this facility from 01/06/2024 till 01/07/2024 and the patient has been treated for influenza a and subsequently discharged prior to that she was admitted to the hospital with abdominal pain diarrhea and the patient did have CT abdominal pelvis with evidence of colitis involving the descending and sigmoid colon multiple diverticula are present within this region that CT was completed on 01/02/2023 patient apparently was discharged home on antibiotics which are not documented in the discharge summary however the p atient mention she was not able to take her antibiotics patient now presenting to the ER complaining of increasing shortness of breath and not feeling well patient has been complaining of cough which is mild in intensity not bring up any sputum patient denies having any chest pain has been complaining of nausea also complaining of abdominal pain which is mild to moderate intensity without radiation and did not have any diarrhea or constipation patient was evaluated on presentation to the hospital patient was afebrile patient was not tachycardic or hypotensive she was hypoxic currently on 4 L nasal cannula oxygen did have elevated lactic acid white count is 5.8 creatinine 0.58 liver enzymes mildly elevated influenza RSV COVID testing negative patient did have a chest x-ray negative chest x-ray as reported by the radiologist patient did have a CT abdominal pelvis improvement of the segmental colitis compared to previous exams and no obstruction no appendicitis patient was started on Zosyn infectious disease was consulted for further management of antibiotic therapy Past Medical History Past Medical History: Asthma, Coronary Artery Disease (CAD), COPD, CVA/TIA, Eye Disorder, Hypertension, Liver Disease, Myocardial Infarction ([place]), Seizure Diso rder, Vascular Disorder Additional Past Medical History / Comment(s): Pt recently admitted to [facility] for diarrhea, ETOH abuse. 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 soon Last Myocardial Infarction Date:: aug 2018 History of Any Multi-Drug Resistant Organisms: None Reported Past Surgical History: Cholecystectomy, Heart Catheterization, Orthopedic Surgery Additional Past Surgical History / Comment(s): L caratid stent, bilateral knee surgeries for tendon repair, bartholian cyst removed bilateral wrists, cataracts Past Anesthesia/Blood Transfusion Reactions: Motion Sickness Additional Past Anesthesia/Blood Transfusion Reaction / Comm: Pt has received blood without reaction. Past Psychological History: Anxiety, Depression Smoking Status: Current every day smoker Past Alcohol Use History: Abuse, Daily, Heavy Past Drug Use History: Marijuana - Past Family History Mother Family Medical History: Cancer, Congestive Heart Failure (CHF), Coronary Artery Disease (CAD), Hyperlipidemia Additional Family Medical History / Comment(s): Mother at age 85 from lung cancer. Father Family Medical History: Cancer, COPD Additional Family Medical History / Comment(s): Father at age 63 from lung cancer. Brother(s) Additional Family Medical History / Comment(s): Patient has a total of 7 siblings. 5 are alive without any major medical problems she is aware of. 2 siblings have one from alcohol abuse and 1. Coronary artery disease. Daughter(s) Additional Family Medical History / Comment(s): Patient has one daughter with no major medical problems. Medications and Allergies Home Medications Medication Instructions Recorded Confirmed Type Aspirin EC [Ecotrin Low Dose] 81 mg PO HS 02/11/19 01/15/24 History Simvastatin [Zocor] 40 mg PO HS 07/03/22 01/15/24 History Ticagrelor [Brilinta] 90 mg PO HS 01/14/23 01/15/24 History Albuterol Nebulized [Ventolin 2.5 mg INHALATION RT-QID PRN 05/17/23 01/15/24 History Nebulized] Budesonide/Formoterol Fumarate 2 puff INHALATION RT-BID 07/29/23 01/15/24 History [Symbicort 160-4.5 Mcg Inhaler] Multivitamin [Multivitamins Adult 2 tab PO HS 12/04/23 01/15/24 History Gummies] Isosorbide Mononitrate ER [Imdur] 60 mg PO HS 30 Days #30 tab 12/07/23 01/15/24 Rx Metoprolol Succinate (ER) [Toprol 100 mg PO HS 30 Days #30 tab 12/07/23 01/15/24 Rx XL] Pantoprazole [Protonix] 40 mg PO HS 01/02/24 01/15/24 History Thiamine [Vitamin B-1] 100 mg PO DAILY #30 tablet 01/04/24 01/15/24 Rx Benzonatate [Tessalon Perle] 200 mg PO TID PRN #10 cap 01/07/24 01/15/24 Rx Famotidine [Pepcid] 20 mg PO BID #60 tablet 01/07/24 01/15/24 Rx Ipratropium-Albuterol Nebulize 3 ml INHALATION RT-Q2H PRN each 01/07/24 01/15/24 Rx [Duoneb 0.5 mg-3 mg/3 ml Soln] Ipratropium-Albuterol Nebulize 3 ml INHALATION RT-QID #100 each 01/07/24 01/15/24 Rx [Duoneb 0.5 mg-3 mg/3 ml Soln] Ondansetron Odt [Zofran Odt] 4 mg PO Q8HR PRN #20 tab 01/07/24 01/15/24 Rx guaiFENesin SYRUP 100MG/5ML 200 mg PO TID PRN #120 ml 01/07/24 01/15/24 Rx [Robitussin] Benzocaine/Menthol Lozeng [Cepacol 1 lozenge MUCOUS MEM Q4HR PRN 01/15/24 01/15/24 History lozenge] Ibuprofen [Motrin Ib] 400 mg PO Q8H PRN 01/15/24 01/15/24 History Ibuprofen [Motrin Ib] 600 mg PO BID 01/15/24 01/15/24 History Allergies Allergy/AdvReac Type Severity Reaction Status Date / Time [place] And Derivatives Allergy Rash/Hives Verified 01/15/24 07:55 [[place]] latex Allergy Rash/Hives Verified 01/15/24 07:55 Influenza Virus Vaccines AdvReac Nausea & Verified 01/15/24 07:55 Vomiting morphine AdvReac Nausea & Verified 01/15/24 07:55 Vomiting tomato AdvReac Diarrhea Verified 01/15/24 07:55 Physical Exam Vitals: Vital Signs Temp Pulse Resp BP Pulse Ox 01/15/24 12:23 84 16 01/15/24 12:12 80 16 01/15/24 10:56 80 18 161/97 94 L 01/15/24 09:03 64 16 01/15/24 08:55 89 16 94 L 01/15/24 08:19 95 22 190/113 01/15/24 06:13 124/86 01/15/24 05:16 89 18 94 L 01/15/24 03:45 94 L 01/15/24 03:34 92 01/15/24 03:28 89 01/15/24 03:00 85 16 142/84 95 01/15/24 01:51 76 18 148/78 94 L 01/15/24 01:13 84 01/15/24 01:08 79 01/15/24 00:02 98.0 F 89 18 138/100 94 L Intake and Output 01/15/24 01/15/24 01/15/24 06:59 14:59 22:59 Other: Weight 72.575 kg Results CBC & Chem 7: 01/17/24 06:16 01/17/24 06:16 Labs: Abnormal Lab Results - Last 24 Hours (Table) 01/15/24 01/15/24 01/15/24 Range/Units 01:38 01:38 01:38 RDW 18.2 H (11.5-15.5) % Sodium 134 L (137-145) mmol/L BUN 4 L (7-17) mg/dL Glucose 102 H (74-99) mg/dL Plasma Lactic Acid Camron 3.4 H* (0.7-2.0) mmol/L AST 81 H (14-36) U/L ALT 56 H (4-34) U/L 01/15/24 01/15/24 Range/Units 05:37 08:39 RDW (11.5-15.5) % Sodium (137-145) mmol/L BUN (7-17) mg/dL Glucose (74-99) mg/dL Plasma Lactic Acid Camron 3.3 H* 3.1 H* (0.7-2.0) mmol/L AST (14-36) U/L ALT (4-34) U/L Assessment and Plan Plan: 1patient with a recent admission to the hospital with abdominal pain and diarrhea stool for C. difficile was negative patient did have CT abdominal pelvis with evidence of colitis possible diverticulitis and apparently patient was discharged on oral antibiotic however the patient mention was not able to complete it because of nausea and vomiting now presented to hospital predominantly with respiratory symptoms was complaining of abdominal pain and some tenderness concerning for colitis with the repeat CT mentions some improvement 2-patient to continue with Zosyn 3.375 g every 8 hours while inpatient We will follow on clinical condition and cultures to further adjust medication if needed Thank you for this consultation we will follow the patient along with you Dictation was produced using [employer] dictation software. please excuse any grammatical, word or spelling errors. Time with Patient: Greater than 30
[2024-01-16] MEDS: THIAMINE 100 MG TAB PO SCH (08:28)
[2024-01-16 08:36] LABS: Basophils # (A) 0.01 X 10*3/uL (0.00-0.10); Basophils % (A) 0.2 %; Eosinophils # (A) 0 X 10*3/uL (0.04-0.35); Eosinophils % (A) 0 %; HCT 37.1 % (37.2-46.3); HGB 12.3 g/dL (12.0-15.0); Lymphocytes # (A) 0.24 X 10*3/uL (0.90-5.00); Lymphocytes % (A) 4.3 %; MCH 30.3 pg (27.0-32.0); MCHC 33.2 g/dL (32.0-37.0); MCV 91.4 FL (80.0-97.0); Mean Platelet Volume 9.7 FL (9.5-12.2); Monocytes # (A) 0.47 X 10*3/uL (0.20-1.00); Monocytes % (A) 8.4 %; NRBC Per 100 WBC 0 X 10*3/uL (0.00-0.01); Neutrophils # (A) 4.84 X 10*3/uL (1.80-7.70); Neutrophils % (A) 86.6 %; Platelet Count 170 X 10*3/uL (140-440); RBC 4.06 X 10*6/uL (4.10-5.20); WBC 5.59 X 10*3/uL (4.50-10.00)
[2024-01-16] MEDS: cloNIDine HCL 0.1 MG TAB PO SCH (08:38)
[2024-01-16 09:05] LABS: ALT 43 U/L (8-44); AST 47 U/L (13-35); Albumin/Globulin Ratio 1.67 Ratio (1.60-3.17); Alkaline Phosphatase 105 U/L (41-126); BUN/Creat Ratio 7.12 Ratio (12.00-20.00); Blood Urea Nitrogen 5.7 mg/dL (9.0-27.0); Calcium 8.7 mg/dL (8.7-10.3); Carbon Dioxide 21.8 mmol/L (21.6-31.8); Chloride 98 mmol/L (96-109); Globulin 2.4 g/dL (1.6-3.3); Glucose 158 mg/dL (70-110); Potassium 4.1 mmol/L (3.5-5.5); Sodium 138 mmol/L (135-145); Total Bilirubin 0.6 mg/dL (0.3-1.2); Total Protein 6.4 g/dL (6.2-8.2)
--- NOTE | 2024-01-16 12:29 | PN ---
PROGRESS NOTE DATE OF SERVICE: 01/16/2024 SUBJECTIVE: This is a 63-year-old woman who was admitted with COPD acute exacerbation, also had recent flu. The patient also had descending colon diverticulitis which is persistent in the CAT scan. The patient is on antibiotics. The patient has significant EtOH also. Multiple consultants are following the patient closely. PAST MEDICAL HISTORY: Reviewed. REVIEW OF SYSTEMS: A 14-point review is negative except as mentioned earlier. PHYSICAL EXAMINATION: VITAL SIGNS: Pulse is 80, blood pressure 192/98, respirations 20. HEENT: Conjunctivae normal. NECK: No jugular venous distention. CARDIOVASCULAR: S1, S2. RESPIRATIONS: Diminished in the bases, few scattered rhonchi and crackles. ABDOMEN: Soft. NERVOUS SYSTEM: Nonfocal. LABORATORY DATA: BUN is 5.7, creatinine is 0.8, other labs are noted. Lactic acid improved. ASSESSMENT: 1. Chronic obstructive pulmonary disease acute exacerbation and acute tracheobronchitis. 2. Descending colon diverticulitis with elevated lactic acid. 3. History of recent flu. 4. History of asthma. 5. Hypertension. 6. History of liver disease. 7. History of EtOH and withdrawal syndrome. 8. History of seizure disorder. 9. Multiple complex medical issues. RECOMMENDATIONS AND DISCUSSION: I recommended to continue current management. Continue symptomatic treatment, continue the bronchodilators. Continue the empiric antibiotics. Repeat labs. I would also closely follow with surgery and pulmonary, DT precautions. Overall prognosis is guarded because of multiple complex medical issues as listed above. Discussed with the patient, see orders for further information. MMODL / IJN: [id number] /
--- NOTE | 2024-01-16 13:33 | P.PN ---
Subjective Progress Note Date: 01/16/24 This is a 63-year-old female, frequently in the hospital either admitted or in the ER, patient was last discharged out of the hospital on 01/07/2024, and she was also discharged out of the hospital on 01/04/2024 patient was also discharged on 12/20/2023 patient was also discharged on 12/07/2023, obviously the patient gets admitted quite frequently and gets discharged quite frequently and this time she came in with mostly symptoms of shortness of breath for the last few days on her last admission patient was diagnosed with acute influenza A infection COPD, diverticulitis, patient has chronic alcoholism, hypertension, seizure disorder, coronary artery disease and occlusion of RCA, patient is also known to have history of depression, at any rate this time the patient came in with multiple vague symptoms including not feeling well, shortness of breath, minimal cough, no wheezing, no fever, no chills, no hemoptysis. Patient also has some vague abdominal pains. Chest x-ray was normal, CBC was normal, basic metabolic profile was normal, screening for influenza A influenza B and RSV as well as SARS were all negative. Nonetheless the patient was admitted and this consult was initiated physical examination the patient sounded quite clear, hardly any wheezing noted on physical examination The patient is seen today January 16, 2024 in follow-up on the regular medical floor. She is currently sitting up in bed. Awake and alert in no acute distress. She is maintaining O2 saturations in the 90s on 4 L/min per nasal cannula. She denies any worsening shortness of breath, cough or congestion. White count 5.5. Hemoglobin 12.3. Platelets 170. Sodium 138. Potassium 4.1. Bicarb 22. BUN 6. Creatinine 0.8. Glucose 158. She remains on the CIWA protocol. Continued on bronchodilators. Empiric antibiotics in the form of Zosyn. NicoDerm patch in place. Heparin for DVT prophylaxis. Objective - Vital Signs Vital signs: Vital Signs Temp 98 F 01/16/24 12:09 Pulse 81 01/16/24 12:09 Resp 16 01/16/24 12:09 BP 120/79 01/16/24 12:09 Pulse Ox 93 L 01/16/24 12:09 FiO2 Intake & Output 03/05/24 03/06/24 03/06/24 18:59 06:59 18:59 Intake Total 250 Balance 250 Weight 72.575 kg Intake: Intake, IV Titration 250 Amount Piperacillin-Tazobactam 3 100 .375 gm In Sodium Chloride 0.9% 100 ml @ 25 mls/hr IVPB Q8HR [facility] Rx# :[id number] Sodium Chloride 0.9% 1, 150 000 ml @ 75 mls/hr IV . [id number] Rx#:[id number] Other: Voiding Method Bedpan Bedpan Toilet # Voids 1 5 # Bowel Movements 1 1 - Exam GENERAL EXAM: Alert, 63-year-old female, on 4 L nasal cannula, comfortable in no apparent distress. HEAD: Normocephalic. EYES: Normal reaction of pupils, equal size. NOSE: Clear with pink turbinates. THROAT: No erythema or exudates. NECK: No masses, no JVD. CHEST: No chest wall deformity. LUNGS: Equal air entry with no crackles, wheeze, rhonchi or dullness. CVS: S1 and S2 normal with no audible murmur, regular rhythm. ABDOMEN: No hepatosplenomegaly, normal bowel sounds, no guarding or rigidity. SPINE: No scoliosis or deformity SKIN: No rashes CENTRAL NERVOUS SYSTEM: No focal deficits, tone is normal in all 4 extremities. EXTREMITIES: There is no peripheral edema. No clubbing, no cyanosis. Peripheral pulses are intact. - Labs CBC & Chem 7: 01/16/24 06:10 01/16/24 06:10 Labs: Abnormal Lab Results - Last 24 Hours (Table) 01/16/24 01/16/24 Range/Units 06:10 06:10 RBC 4.06 L (4.10-5.20) X 10*6/uL Hct 37.1 L (37.2-46.3) % RDW 18.0 H (11.5-14.5) % Lymphocytes # 0.24 L (0.90-5.00) X 10*3/uL Eosinophils # 0 L (0.04-0.35) X 10*3/uL Anion Gap 18.20 H (4.00-12.00) mmol/L BUN 5.7 L (9.0-27.0) mg/dL BUN/Creatinine Ratio 7.12 L (12.00-20.00) Ratio Glucose 158 H (70-110) mg/dL AST 47 H (13-35) U/L Assessment and Plan Assessment: Acute exacerbation of COPD Acute on chronic hypoxemic respiratory failure secondary to above Chronic and ongoing tobacco dependence Recent influenza infection but negative screening on this admission History of diverticulitis Chronic alcoholism Benign essential hypertension Coronary arteriosclerosis and previous stent of RCA History of seizure disorder Peripheral vessel occlusive disease Plan: The patient was seen and evaluated Medications and labs reviewed Cleared for discharge from the pulmonary standpoint Educated regarding the importance of medical compliance Educated regarding the importance of complete smoking cessation Educated regarding the importance of alcohol cessation I have personally seen and examined the patient, performed the documentation and the assessment and plan as written. Number of minutes spent on the visit: 10.
--- NOTE | 2024-01-16 14:16 | P.GSCN ---
History of Present Illness Consult date: 01/16/24 History of present illness: CHIEF COMPLAINT: Shortness of breath HISTORY OF PRESENT ILLNESS: This is a 63-year-old female who presented with shortness of breath. She is currently treated for COPD exacerbation. She had recent antibiotic treatment for diverticulitis. Patient reports that she is feeling better since the antibiotics. She denies any abdominal pain. She reports having bowel movements. Last EGD and colonoscopy was about 8 years ago. She does report having diverticulosis on the colonoscopy. She usually follows with Dr. Lynch. Patient also has a history of alcoholic liver cirrhosis. Patient reports having normal bowel movements. Denies any blood in her stools. Surgical service consulted for diverticulitis. PAST MEDICAL HISTORY: Asthma, Coronary Artery Disease (CAD), COPD, CVA/TIA, Eye Disorder, Hypertension, Liver Disease, Myocardial Infarction (LA), Seizure Disorder, Vascular Disorder,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/speech issues, ETOH abuse/withdrawals/seizures/alcoholic cirrhosis/ascities with paracentesis, balance problems, FALLS, anemia, gastritis, IBS, chronic back pain, DDD, L1/L4 vertebral fractures from falls, bilateral leg and R arm nerve damage, pt had L carotid stenting, dysphagia PAST SURGICAL HISTORY: Cholecystectomy, Heart Catheterization, Orthopedic Surgery MEDICATIONS: See below ALLERGIES: See below SOCIAL HISTORY: No illicit drug use. REVIEW OF SYSTEMS: CONSTITUTIONAL: Denies fever or chills. HEENT: Denies blurred vision, vision changes, or eye pain. Denies hemoptysis CARDIOVASCULAR: Denies chest pain or pressure. RESPIRATORY: No shortness of breath. GASTROINTESTINAL: See HPI for pertinent findings HEMATOLOGIC: Denies bleeding disorders. GENITOURINARY: Denies any blood in urine or increased urinary frequency. SKIN: Denies pruitis. Denies rash. PHYSICAL EXAM: VITAL SIGNS: Reviewed GENERAL: Well-developed in no acute distress. HEENT: No sclera icterus. Extraocular movements grossly intact. Moist buccal mucosa. Head is atraumatic, normocephalic. No nasal drainage. ABDOMEN: Soft. Nondistended. Nontender NEUROLOGIC: Alert and oriented. Cranial nerves II through XII grossly intact. LABORATORY DATA: WBC 5.59 Hgb 12.3 platelets 170 Sodium 138 potassium 4.4 creatinine 0.8 Lactic acid 3.4 down to 1.7 IMAGING: CT scan abdomen pelvis reports improvement of sigmoid colitis when compared to previous exam. No bowel obstruction or appendicitis. ASSESSMENT: 1. Improved diverticulitis. Patient has no abdominal pain. PLAN: -No surgical intervention planned -Recommend colonoscopy. Patient would like to proceed with colonoscopy outpatient with Dr. Lynch, who has done her previous scopes. -Continue heart healthy diet Physician [employer] note has been reviewed by physician. Signing provider agrees with the documented findings, assessment, and plan of care. Past Medical History Past Medical History: Asthma, Coronary Artery Disease (CAD), COPD, CVA/TIA, Eye Disorder, Hypertension, Liver Disease, Myocardial Infarction (LA), Seizure Disorder, Vascular Disorder Additional Past Medical History / Comment(s): Pt recently admitted to [facility] for diarrhea, ETOH abuse. 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 soon Last Myocardial Infarction Date:: aug 2018 History of Any Multi-Drug Resistant Organisms: None Reported Past Surgical History: Cholecystectomy, Heart Catheterization, Orthopedic Surgery Additional Past Surgical History / Comment(s): L caratid stent, bilateral knee surgeries for tendon repair, bartholian cyst removed bilateral wrists, cataracts Past Anesthesia/Blood Transfusion Reactions: Motion Sickness Additional Past Anesthesia/Blood Transfusion Reaction / Comm: Pt has received blood without reaction. Past Psychological History: Anxiety, Depression Smoking Status: Current every day smoker Past Alcohol Use History: Abuse, Daily, Heavy Past Drug Use History: Marijuana - Past Family History Mother Family Medical History: Cancer, Congestive Heart Failure (CHF), Coronary Artery Disease (CAD), Hyperlipidemia Additional Family Medical History / Comment(s): Mother at age 85 from lung cancer. Father Family Medical History: Cancer, COPD Additional Family Medical History / Comment(s): Father at age 63 from lung cancer. Brother(s) Additional Family Medical History / Comment(s): Patient has a total of 7 siblings. 5 are alive without any major medical problems she is aware of. 2 siblings have one from alcohol abuse and 1. Coronary artery disease. Daughter(s) Family Medical History: No Reported History Additional Family Medical History / Comment(s): Patient has one daughter with no major medical problems. Medications and Allergies Home Medications Medication Instructions Recorded Confirmed Type Aspirin EC [Ecotrin Low Dose] 81 mg PO HS 02/11/19 01/15/24 History Simvastatin [Zocor] 40 mg PO HS 07/03/22 01/15/24 History Ticagrelor [Brilinta] 90 mg PO HS 01/14/23 01/15/24 History Albuterol Nebulized [Ventolin 2.5 mg INHALATION RT-QID PRN 05/17/23 01/15/24 History Nebulized] Budesonide/Formoterol Fumarate 2 puff INHALATION RT-BID 07/29/23 01/15/24 History [Symbicort 160-4.5 Mcg Inhaler] Multivitamin [Multivitamins Adult 2 tab PO HS 12/04/23 01/15/24 History Gummies] Isosorbide Mononitrate ER [Imdur] 60 mg PO HS 30 Days #30 tab 12/07/23 01/15/24 Rx Metoprolol Succinate (ER) [Toprol 100 mg PO HS 30 Days #30 tab 12/07/23 01/15/24 Rx XL] Pantoprazole [Protonix] 40 mg PO HS 01/02/24 01/15/24 History Thiamine [Vitamin B-1] 100 mg PO DAILY #30 tablet 01/04/24 01/15/24 Rx Benzonatate [Tessalon Perle] 200 mg PO TID PRN #10 cap 01/07/24 01/15/24 Rx Famotidine [Pepcid] 20 mg PO BID #60 tablet 01/07/24 01/15/24 Rx Ipratropium-Albuterol Nebulize 3 ml INHALATION RT-Q2H PRN each 01/07/24 01/15/24 Rx [Duoneb 0.5 mg-3 mg/3 ml Soln] Ipratropium-Albuterol Nebulize 3 ml INHALATION RT-QID #100 each 01/07/24 01/15/24 Rx [Duoneb 0.5 mg-3 mg/3 ml Soln] Ondansetron Odt [Zofran Odt] 4 mg PO Q8HR PRN #20 tab 01/07/24 01/15/24 Rx guaiFENesin SYRUP 100MG/5ML 200 mg PO TID PRN #120 ml 01/07/24 01/15/24 Rx [Robitussin] Benzocaine/Menthol Lozeng [Cepacol 1 lozenge MUCOUS MEM Q4HR PRN 01/15/24 01/15/24 History lozenge] Ibuprofen [Motrin Ib] 400 mg PO Q8H PRN 01/15/24 01/15/24 History Ibuprofen [Motrin Ib] 600 mg PO BID 01/15/24 01/15/24 History Allergies Allergy/AdvReac Type Severity Reaction Status Date / Time Old [place] And Derivatives Allergy Rash/Hives Verified 01/15/24 07:55 [Old [place]] latex Allergy Rash/Hives Verified 01/15/24 07:55 Influenza Virus Vaccines AdvReac Nausea & Verified 01/15/24 07:55 Vomiting morphine AdvReac Nausea & Verified 01/15/24 07:55 Vomiting tomato AdvReac Diarrhea Verified 01/15/24 07:55 Surgical - Exam Vital Signs Temp Pulse Resp BP Pulse Ox 98.0 F 89 18 138/100 94 L 01/15/24 00:02 01/15/24 00:02 01/15/24 00:02 01/15/24 00:02 01/15/24 00:02 Results - Labs 01/16/24 06:10 01/16/24 06:10 Abnormal Lab Results - Last 24 Hours (Table) 01/16/24 01/16/24 Range/Units 06:10 06:10 RBC 4.06 L (4.10-5.20) X 10*6/uL Hct 37.1 L (37.2-46.3) % RDW 18.0 H (11.5-14.5) % Lymphocytes # 0.24 L (0.90-5.00) X 10*3/uL Eosinophils # 0 L (0.04-0.35) X 10*3/uL Anion Gap 18.20 H (4.00-12.00) mmol/L BUN 5.7 L (9.0-27.0) mg/dL BUN/Creatinine Ratio 7.12 L (12.00-20.00) Ratio Glucose 158 H (70-110) mg/dL AST 47 H (13-35) U/L Diabetes panel 01/16/24 Range/Units 06:10 Sodium 138 (135-145) mmol/L Potassium 4.1 (3.5-5.5) mmol/L Chloride 98 (96-109) mmol/L Carbon Dioxide 21.8 (21.6-31.8) mmol/L BUN 5.7 L (9.0-27.0) mg/dL Creatinine 0.8 (0.6-1.5) mg/dL Glucose 158 H (70-110) mg/dL Calcium 8.7 (8.7-10.3) mg/dL AST 47 H (13-35) U/L ALT 43 (8-44) U/L Alkaline Phosphatase 105 (41-126) U/L Total Protein 6.4 (6.2-8.2) g/dL Albumin 4.0 (3.8-4.9) g/dL Calcium panel 01/16/24 Range/Units 06:10 Calcium 8.7 (8.7-10.3) mg/dL Albumin 4.0 (3.8-4.9) g/dL Pituitary panel 01/16/24 Range/Units 06:10 Sodium 138 (135-145) mmol/L Potassium 4.1 (3.5-5.5) mmol/L Chloride 98 (96-109) mmol/L Carbon Dioxide 21.8 (21.6-31.8) mmol/L BUN 5.7 L (9.0-27.0) mg/dL Creatinine 0.8 (0.6-1.5) mg/dL Glucose 158 H (70-110) mg/dL Calcium 8.7 (8.7-10.3) mg/dL Adrenal panel 01/16/24 Range/Units 06:10 Sodium 138 (135-145) mmol/L Potassium 4.1 (3.5-5.5) mmol/L Chloride 98 (96-109) mmol/L Carbon Dioxide 21.8 (21.6-31.8) mmol/L BUN 5.7 L (9.0-27.0) mg/dL Creatinine 0.8 (0.6-1.5) mg/dL Glucose 158 H (70-110) mg/dL Calcium 8.7 (8.7-10.3) mg/dL Total Bilirubin 0.6 (0.3-1.2) mg/dL AST 47 H (13-35) U/L ALT 43 (8-44) U/L Alkaline Phosphatase 105 (41-126) U/L Total Protein 6.4 (6.2-8.2) g/dL Albumin 4.0 (3.8-4.9) g/dL
[2024-01-17 11:16] LABS: BUN/Creat Ratio 7.71 Ratio (12.00-20.00); Blood Urea Nitrogen 5.4 mg/dL (9.0-27.0); Calcium 8.1 mg/dL (8.7-10.3); Carbon Dioxide 26.8 mmol/L (21.6-31.8); Chloride 101 mmol/L (96-109); Glucose 124 mg/dL (70-110); Potassium 2.9 mmol/L (3.5-5.5); Sodium 140 mmol/L (135-145)
[2024-01-17 11:39] LABS: Basophils # (A) 0.01 X 10*3/uL (0.00-0.10); Basophils % (A) 0.2 %; Eosinophils # (A) 0.01 X 10*3/uL (0.04-0.35); Eosinophils % (A) 0.2 %; HCT 33.1 % (37.2-46.3); HGB 10.8 g/dL (12.0-15.0); Lymphocytes # (A) 0.93 X 10*3/uL (0.90-5.00); Lymphocytes % (A) 22.2 %; MCH 30.3 pg (27.0-32.0); MCHC 32.6 g/dL (32.0-37.0); MCV 92.7 FL (80.0-97.0); Monocytes # (A) 0.25 X 10*3/uL (0.20-1.00); NRBC Per 100 WBC 0 X 10*3/uL (0.00-0.01); Neutrophils # (A) 2.96 X 10*3/uL (1.80-7.70); Neutrophils % (A) 70.7 %; Platelet Count 108 X 10*3/uL (140-440); RBC 3.57 X 10*6/uL (4.10-5.20); RBC Morphology Normal (Normal); RDW 18.2 % (11.5-14.5); WBC 4.19 X 10*3/uL (4.50-10.00)
[2024-01-17] MEDS: POTASSIUM CHLORIDE ER 20 MEQ TAB.ER PO SCH (12:28)
--- NOTE | 2024-01-17 13:17 | P.PN ---
Subjective Progress Note Date: 01/17/24 This is a 63-year-old female, frequently in the hospital either admitted or in the ER, patient was last discharged out of the hospital on 01/07/2024, and she was also discharged out of the hospital on 01/04/2024 patient was also discharged on 12/20/2023 patient was also discharged on 12/07/2023, obviously the patient gets admitted quite frequently and gets discharged quite frequently and this time she came in with mostly symptoms of shortness of breath for the last few days on her last admission patient was diagnosed with acute influenza A infection COPD, diverticulitis, patient has chronic alcoholism, hypertension, seizure disorder, coronary artery disease and occlusion of RCA, patient is also known to have history of depression, at any rate this time the patient came in with multiple vague symptoms including not feeling well, shortness of breath, minimal cough, no wheezing, no fever, no chills, no hemoptysis. Patient also has some vague abdominal pains. Chest x-ray was normal, CBC was normal, basic metabolic profile was normal, screening for influenza A influenza B and RSV as well as SARS were all negative. Nonetheless the patient was admitted and this consult was initiated physical examination the patient sounded quite clear, hardly any wheezing noted on physical examination The patient is seen today January 16, 2024 in follow-up on the regular medical floor. She is currently sitting up in bed. Awake and alert in no acute distress. She is maintaining O2 saturations in the 90s on 4 L/min per nasal cannula. She denies any worsening shortness of breath, cough or congestion. White count 5.5. Hemoglobin 12.3. Platelets 170. Sodium 138. Potassium 4.1. Bicarb 22. BUN 6. Creatinine 0.8. Glucose 158. She remains on the CIWA protocol. Continued on bronchodilators. Empiric antibiotics in the form of Zosyn. NicoDerm patch in place. Heparin for DVT prophylaxis. The patient is seen today January 17, 2024 in follow-up on the regular medical floor. She is sitting up in bed having breakfast. Denies any worsening shortness of breath, cough or congestion. She is maintaining good O2 saturations in the mid 90s on room air. She is afebrile. Hemodynamically stable. Denies any abdominal discomfort. White count 4.1. Hemoglobin 10.8. Platelets 108. Sodium 140. Potassium 2.9. Bicarb 27. BUN 5. Creatinine 0.7. Glucose 124. She is continued on Zosyn. Remains on bronchodilators. NicoDerm patch in place. Heparin for DVT prophylaxis. Objective - Vital Signs Vital signs: Vital Signs Temp 98.3 F 01/17/24 12:52 Pulse 68 01/17/24 12:52 Resp 24 01/17/24 12:52 BP 147/85 01/17/24 12:52 Pulse Ox 95 01/17/24 12:52 FiO2 Intake & Output 01/16/24 01/17/24 01/17/24 18:59 06:59 18:59 Intake Total 500 Balance 500 Intake: Intake, IV Titration 500 Amount Piperacillin-Tazobactam 3 200 .375 gm In Sodium Chloride 0.9% 100 ml @ 25 mls/hr IVPB Q8HR [facility] Rx# :[id number] Sodium Chloride 0.9% 1, 300 000 ml @ 75 mls/hr IV . [id number] [facility] Rx#:[id number] Other: Voiding Method Toilet Toilet Toilet # Voids 3 - Exam GENERAL EXAM: Alert, 63-year-old female, on room air, sitting up eating breakfast, comfortable in no apparent distress. HEAD: Normocephalic. EYES: Normal reaction of pupils, equal size. NOSE: Clear with pink turbinates. THROAT: No erythema or exudates. NECK: No masses, no JVD. CHEST: No chest wall deformity. LUNGS: Equal air entry with no crackles, wheeze, rhonchi or dullness. CVS: S1 and S2 normal with no audible murmur, regular rhythm. ABDOMEN: No hepatosplenomegaly, normal bowel sounds, no guarding or rigidity. SPINE: No scoliosis or deformity SKIN: No rashes CENTRAL NERVOUS SYSTEM: No focal deficits, tone is normal in all 4 extremities. EXTREMITIES: There is no peripheral edema. No clubbing, no cyanosis. Per ipheral pulses are intact. - Labs CBC & Chem 7: 01/17/24 06:16 01/17/24 06:16 Labs: Abnormal Lab Results - Last 24 Hours (Table) 01/17/24 01/17/24 Range/Units 06:16 06:16 WBC 4.19 L (4.50-10.00) X 10*3/uL RBC 3.57 L (4.10-5.20) X 10*6/uL Hgb 10.8 L (12.0-15.0) g/dL Hct 33.1 L (37.2-46.3) % RDW 18.2 H (11.5-14.5) % Plt Count 108 L (140-440) X 10*3/uL Eosinophils # 0.01 L (0.04-0.35) X 10*3/uL Potassium 2.9 L (3.5-5.5) mmol/L Anion Gap 12.20 H (4.00-12.00) mmol/L BUN 5.4 L (9.0-27.0) mg/dL BUN/Creatinine Ratio 7.71 L (12.00-20.00) Ratio Glucose 124 H (70-110) mg/dL Calcium 8.1 L (8.7-10.3) mg/dL Assessment and Plan Assessment: Acute exacerbation of COPD Acute on chronic hypoxemic respiratory failure secondary to above Chronic and ongoing tobacco dependence Recent influenza infection but negative screening on this admission History of diverticulitis Chronic alcoholism Benign essential hypertension Coronary arteriosclerosis and previous stent of RCA History of seizure disorder Peripheral vessel occlusive disease Plan: The patient was seen and evaluated Medications and labs reviewed Remains on Zosyn per ID service Currently stable and on room air Continue bronchodilators Heparin for DVT prophylaxis Again educated regarding smoking cessation NicoDerm patch in place This patient was seen independently by the pulmonary nurse practitioner addressing pulmonary issues I have personally seen and examined the patient, performed the documentation and the assessment and plan as written. Number of minutes spent on the visit: 24.
--- NOTE | 2024-01-17 13:25 | P.PN ---
Subjective Progress Note Date: 01/17/24 CHIEF COMPLAINT: Shortness of breath HISTORY OF PRESENT ILLNESS: Surgical service following in regards to diverticulitis. Patient denies any abdominal pain. She is tolerating diet. She reports regular bowel movement. Denies any nausea or vomiting. Afebrile. WBC 4.19 hemoglobin 10.8 potassium 2.9 and being replaced PHYSICAL EXAM: VITAL SIGNS: Reviewed. GENERAL: Well-developed in no acute distress. ABDOMEN: Soft. Nondistended. Nontender. NEUROLOGIC: Alert and oriented. Cranial nerves II through XII grossly intact. ASSESSMENT: 1. Improved diverticulitis. Patient has no abdominal pain. PLAN: -No surgical intervention planned -Recommend colonoscopy. Patient would like to proceed with colonoscopy outpatient with Dr. Lynch, who has done her previous scopes. -Continue heart healthy diet -Antibiotics per ID service -Patient can be discharged from surgical standpoint when medically cleared Physician Columnist/Commentator note has been reviewed by physician. Signing provider agrees with the documented findings, assessment, and plan of care. Objective - Vital Signs Vital signs: Vital Signs Temp 98.3 F 01/17/24 12:52 Pulse 68 01/17/24 12:52 Resp 24 01/17/24 12:52 BP 147/85 01/17/24 12:52 Pulse Ox 95 01/17/24 12:52 FiO2 Intake & Output 01/16/24 01/17/24 01/17/24 18:59 06:59 18:59 Intake Total 500 Balance 500 Intake: Intake, IV Titration 500 Amount Piperacillin-Tazobactam 3 200 .375 gm In Sodium Chloride 0.9% 100 ml @ 25 mls/hr IVPB Q8HR [facility] Rx# :[id number] Sodium Chloride 0.9% 1, 300 000 ml @ 75 mls/hr IV . [id number] [facility] Rx#:[id number] Other: Voiding Method Toilet Toilet Toilet # Voids 3 - Labs CBC & Chem 7: 01/17/24 06:16 01/17/24 06:16 Labs: Abnormal Lab Results - Last 24 Hours (Table) 01/17/24 01/17/24 Range/Units 06:16 06:16 WBC 4.19 L (4.50-10.00) X 10*3/uL RBC 3.57 L (4.10-5.20) X 10*6/uL Hgb 10.8 L (12.0-15.0) g/dL Hct 33.1 L (37.2-46.3) % RDW 18.2 H (11.5-14.5) % Plt Count 108 L (140-440) X 10*3/uL Eosinophils # 0.01 L (0.04-0.35) X 10*3/uL Potassium 2.9 L (3.5-5.5) mmol/L Anion Gap 12.20 H (4.00-12.00) mmol/L BUN 5.4 L (9.0-27.0) mg/dL BUN/Creatinine Ratio 7.71 L (12.00-20.00) Ratio Glucose 124 H (70-110) mg/dL Calcium 8.1 L (8.7-10.3) mg/dL
[2024-01-17 13:26] VITALS: BP 147/85; PULSE 68; RESP 24; TEMP 98.3
--- NOTE | 2024-01-17 15:39 | P.PN ---
Subjective Progress Note Date: 01/16/24 Principal diagnosis: Reason for follow-up is colitis Patient is a 63-year-old female with a past medical history significant for COPD CVA TIA hypertension [place] seizure disorder recently admitted to hospital diagnosed with influenza and also have a CT abdominal pelvis with evidence of colitis presented back to hospital worsening shortness of breath. Patient also have CT abdominal pelvis mention improving colitis but not complete evaluation. On today's evaluation that is 01/16/2024,the patient remains to be afebrile, patient is on 4 L nasal cannula supplemental oxygen however mention breathing comfortably today no chest pain or worsening cough.Patient denies having any nausea or vomiting, abdominal pain has decreased intensity and no diarrhea Patient did have a white count of 5.59, creatinine 0.8 Objective - Vital Signs Vital signs: Vital Signs Temp 98 F 01/16/24 12:09 Pulse 81 01/16/24 12:09 Resp 16 01/16/24 12:09 BP 120/79 01/16/24 12:09 Pulse Ox 93 L 01/16/24 12:09 FiO2 Intake & Output 01/15/24 01/16/24 01/16/24 18:59 06:59 18:59 Intake Total 250 Balance 250 Weight 72.575 kg Intake: Intake, IV Titration 250 Amount Piperacillin-Tazobactam 3 100 .375 gm In Sodium Chloride 0.9% 100 ml @ 25 mls/hr IVPB Q8HR [facility] Rx# :[id number] Sodium Chloride 0.9% 1, 150 000 ml @ 75 mls/hr IV . [id number] [facility] Rx#:[id number] Other: Voiding Method Bedpan Bedpan Toilet # Voids 1 5 # Bowel Movements 1 1 - Exam GENERAL DESCRIPTION: Middle-age female lying in bed in no distress RESPIRATORY SYSTEM: Unlabored breathing , decreased breath sounds at bases HEART: S1 S2 regular rate and rhythm , ABDOMEN: Soft , no tenderness EXTREMITIES: No edema feet - Labs CBC & Chem 7: 01/17/24 06:16 01/17/24 06:16 Labs: Abnormal Lab Results - Last 24 Hours (Table) 01/16/24 01/16/24 Range/Units 06:10 06:10 RBC 4.06 L (4.10-5.20) X 10*6/uL Hct 37.1 L (37.2-46.3) % RDW 18.0 H (11.5-14.5) % Lymphocytes # 0.24 L (0.90-5.00) X 10*3/uL Eosinophils # 0 L (0.04-0.35) X 10*3/uL Anion Gap 18.20 H (4.00-12.00) mmol/L BUN 5.7 L (9.0-27.0) mg/dL BUN/Creatinine Ratio 7.12 L (12.00-20.00) Ratio Glucose 158 H (70-110) mg/dL AST 47 H (13-35) U/L Assessment and Plan (1) Colitis Current Visit: Yes Status: Acute Code(s): K52.9 - NONINFECTIVE GASTROENTERITIS AND COLITIS, UNSPECIFIED SNOMED Code(s): 02270847 Plan: 1patient with a recent admission to the hospital with abdominal pain and diarrhea stool for C. difficile was negative patient did have CT abdominal pelvis with evidence of colitis possible diverticulitis and apparently patient was discharged on oral antibiotic however the patient mention was not able to complete it because of nausea and vomiting now presented to hospital predominantly with respiratory symptoms was complaining of abdominal pain and some tenderness concerning for colitis with the repeat CT mentions some improvement, patient also mention clinical improvement and will continue the patient on Zosyn while inpatient Dictation was produced using [employer] dictation software. please excuse any grammatical, word or spelling errors. Time with Patient: Less than 30
--- NOTE | 2024-01-17 15:40 | P.PN ---
Subjective Progress Note Date: 01/17/24 Principal diagnosis: Reason for follow-up is colitis Patient is a 63-year-old female with a past medical history significant for COPD CVA TIA hypertension [place] seizure disorder recently admitted to hospital diagnosed with influenza and also have a CT abdominal pelvis with evidence of colitis presented back to hospital worsening shortness of breath. Patient also have CT abdominal pelvis mention improving colitis but not complete evaluation. On today's evaluation that is 01/17/2024, the patient continues to be afebrile, the patient is on room air and breathing comfortably, the Pt denies having any chest pain or cough, the patient denies having any abdominal pain no vomiting or any diarrhea has been reported by the nursing staff. Patient white count is 4.19, creatinine 0.7 Objective - Vital Signs Vital signs: Vital Signs Temp 98.3 F 01/17/24 12:52 Pulse 68 01/17/24 12:52 Resp 24 01/17/24 12:52 BP 147/85 01/17/24 12:52 Pulse Ox 95 01/17/24 12:52 FiO2 Intake & Output 01/16/24 01/17/24 01/17/24 18:59 06:59 18:59 Intake Total 500 Balance 500 Intake: Intake, IV Titration 500 Amount Piperacillin-Tazobactam 3 200 .375 gm In Sodium Chloride 0.9% 100 ml @ 25 mls/hr IVPB Q8HR [facility] Rx# :[id number] Sodium Chloride 0.9% 1, 300 000 ml @ 75 mls/hr IV . [id number] [facility] Rx#:[id number] Other: Voiding Method Toilet Toilet Toilet # Voids 3 - Exam GENERAL DESCRIPTION: Middle-age female lying in bed in no distress RESPIRATORY SYSTEM: Unlabored breathing , decreased breath sounds at bases HEART: S1 S2 regular rate and rhythm , ABDOMEN: Soft , no tenderness EXTREMITIES: No edema feet - Labs CBC & Chem 7: 01/17/24 06:16 01/17/24 06:16 Labs: Abnormal Lab Results - Last 24 Hours (Table) 01/17/24 01/17/24 Range/Units 06:16 06:16 WBC 4.19 L (4.50-10.00) X 10*3/uL RBC 3.57 L (4.10-5.20) X 10*6/uL Hgb 10.8 L (12.0-15.0) g/dL Hct 33.1 L (37.2-46.3) % RDW 18.2 H (11.5-14.5) % Plt Count 108 L (140-440) X 10*3/uL Eosinophils # 0.01 L (0.04-0.35) X 10*3/uL Potassium 2.9 L (3.5-5.5) mmol/L Anion Gap 12.20 H (4.00-12.00) mmol/L BUN 5.4 L (9.0-27.0) mg/dL BUN/Creatinine Ratio 7.71 L (12.00-20.00) Ratio Glucose 124 H (70-110) mg/dL Calcium 8.1 L (8.7-10.3) mg/dL Assessment and Plan (1) Colitis Current Visit: Yes Status: Acute Code(s): K52.9 - NONINFECTIVE GASTROEN TERITIS AND COLITIS, UNSPECIFIED SNOMED Code(s): 97675365 Plan: 1patient with a recent admission to the hospital with abdominal pain and diar eben stool for C. difficile was negative patient did have CT abdominal pelvis with evidence of colitis possible diverticulitis and apparently patient was discharged on oral antibiotic however the patient mention was not able to complete it because of nausea and vomiting now presented to hospital pre dominantly with respiratory symptoms was complaining of abdominal pain and some tenderness concerning for colitis with the repeat CT mentions some improvement, patient also mention clinical improvement and will continue the patient on Zosyn while inpatient However the patient will be able to finish therapy with oral Augmentin Dictation was produced using [employer] software. please excuse any grammatical, word or spelling errors.
--- NOTE | 2024-01-21 07:07 | P.DS ---
Providers Date of admission: 01/16/24 11:03 Expected date of discharge: 01/17/24 Attending physician: Mark Cardoza Consults: 01/15/24 13:26 Consult Physician Routine Consulting Provider: Conner Ballesteros Consult Reason/Comments: diverticulitis Do you want consulting provider notified?: Yes 01/15/24 13:27 Consult Physician Routine Consulting Provider: Beatrice Martin Consult Reason/Comments: copd Do you want consulting provider notified?: Yes 01/15/24 13:32 Consult Physician Routine Consulting Provider: Teo Morrissey Consult Reason/Comments: diverticulitis Do you want consulting provider notified?: Yes Primary care physician: Miya Johnson Hospital Course: Final diagnosis COPD, acute exacerbation and acute tracheobronchitis Descending colon diverticulitis with elevated lactic acid, improving from previous admissions History of recent influenza A infection History of asthma Hypertension History of liver disease History of EtOH and withdrawal syndrome, not currently withdrawing History of seizure disorder History of continued ongoing nicotine dependence Noncompliance with medications and follow-up GI prophylaxis DVT prophylaxis Full code Discharge disposition Patient is being discharged in a stable condition with guarded prognosis to home. Patient will follow-up with Dr. Sherman Cardoza in the outpatient setting upon discharge. Patient is to continue with prednisone taper and medications as prescribed and close outpatient follow-up with pulmonary as scheduled. Total time taken is greater than 35 minutes. Hospital course This is a 63-year-old female who was recently admitted with increasing shortness of breath with COPD exacerbation along with cough being closely monitored. Pulmonary following maintained on steroids along with breathing treatments showing some improvements. Patient also recently hospitalized with diverticulitis and repeat CT abdomen was done showing improving descending colon diverticulitis. Patient was evaluated by surgery with no plans of intervention at this time recommended continuing with current medication management. Patient was continued on CIWA protocol although not requiring Ativan and does not appear to be actively withdrawing. Patient has been cleared by consultations and extremely anxious to go home. Encouraged complete tobacco and alcohol cessation. Please refer to other consultation notes for further HPI. Currently no reports of chest pain, shortness of breath, or palpitations. Patient is afebrile. No reports of nausea or vomiting and patient is tolerating diet. Patient will be discharged home. High risk for readmissions given patient's continued noncompliance, continued alcohol use and significant comorbidities. Physical exam: Gen: This is a 63-year-old female who is awake, alert and oriented x 3, well- developed, well-nourished, elderly appearing HEENT: Head is atraumatic, normocephalic. Pupils equal, round. Sclerae is anicteric. NECK: Supple. No JVD. No lymphadenopathy. No thyromegaly. LUNGS: Diminished breath sounds bilaterally with some scattered rhonchi. No intercostal retractions. HEART: Regular rate and rhythm. No murmur. ABDOMEN: Soft. Obese. Bowel sounds are present. No masses. No tenderness. EXTREMITIES: No pedal edema. No calf tenderness. NEUROLOGICAL: Patient is awake, alert and oriented x3. Cranial nerves 2 through 12 are grossly intact. Diffusely weak Please refer to medication reconciliation sheet for a list of medications. The impression and plan of care has been dictated by Tonya Adan, Nurse Practitioner as directed. Dr. Jackelin MD I have performed a history and examination and MDM of this patient, discussed the same with the dictator, and agree with the dictator's assessment and plan as written ,documented as a scribe. Based on total visit time, I have performed more than 50% of the visit. Patient Condition at Discharge: Fair Plan - Discharge Summary Discharge Rx Participant: Yes New Discharge Prescriptions: New Ticagrelor [Brilinta] 90 mg PO BID #60 tab Amoxic-Pot Clav 875-125Mg [Augmentin 875-125] 1 tab PO Q12HR 7 Days #14 tab Nicotine 14Mg/24Hr Patch [Habitrol] 1 patch TRANSDERM DAILY patch Continue Aspirin EC [Ecotrin Low Dose] 81 mg PO HS Budesonide/Formoterol Fumarate [Symbicort 160-4.5 Mcg Inhaler] 2 puff INHALATION RT-BID Multivitamin [Multivitamins Adult Gummies] 2 tab PO HS Metoprolol Succinate (ER) [Toprol XL] 100 mg PO HS 30 Days #30 tab Ipratropium-Albuterol Nebulize [Duoneb 0.5 mg-3 mg/3 ml Soln] 3 ml INHALATION RT-QID #100 each Ipratropium-Albuterol Nebulize [Duoneb 0.5 mg-3 mg/3 ml Soln] 3 ml INHALATION RT-Q2H PRN each PRN Reason: Shortness Of Breath Or Wheezing Famotidine [Pepcid] 20 mg PO BID #60 tablet guaiFENesin SYRUP 100MG/5ML [Robitussin] 200 mg PO TID PRN #120 ml PRN Reason: Cough Ibuprofen [Motrin Ib] 400 mg PO Q8H PRN PRN Reason: Pain Ibuprofen [Motrin Ib] 600 mg PO BID Simvastatin [Zocor] 40 mg PO HS Albuterol Nebulized [Ventolin Nebulized] 2.5 mg INHALATION RT-QID PRN PRN Reason: Shortness Of Breath Isosorbide Mononitrate ER [Imdur] 60 mg PO HS 30 Days #30 tab Pantoprazole [Protonix] 40 mg PO HS Thiamine [Vitamin B-1] 100 mg PO DAILY #30 tablet Benzonatate [Tessalon Perle] 200 mg PO TID PRN #10 cap PRN Reason: Cough Ondansetron Odt [Zofran ODT] 4 mg PO Q8HR PRN #20 tab PRN Reason: Nausea Benzocaine/Menthol Lozeng [Cepacol lozenge] 1 lozenge MUCOUS MEM Q4HR PRN PRN Reason: Cough Discontinued Ticagrelor [Brilinta] 90 mg PO HS Discharge Medication List Aspirin EC [Ecotrin Low Dose] 81 mg PO HS 02/11/19 [History] Simvastatin [Zocor] 40 mg PO HS 07/03/22 [History] Albuterol Nebulized [Ventolin Nebulized] 2.5 mg INHALATION RT-QID PRN 05/17/23 [History] Budesonide/Formoterol Fumarate [Symbicort 160-4.5 Mcg Inhaler] 2 puff INHALATION RT-BID 07/29/23 [History] Multivitamin [Multivitamins Adult Gummies] 2 tab PO HS 12/04/23 [History] Isosorbide Mononitrate ER [Imdur] 60 mg PO HS 30 Days #30 tab 12/07/23 [Rx] Metoprolol Succinate (ER) [Toprol XL] 100 mg PO HS 30 Days #30 tab 12/07/23 [Rx] Pantoprazole [Protonix] 40 mg PO HS 01/02/24 [History] Thiamine [Vitamin B-1] 100 mg PO DAILY #30 tablet 01/04/24 [Rx] Benzonatate [Tessalon Perle] 200 mg PO TID PRN #10 cap 01/07/24 [Rx] Famotidine [Pepcid] 20 mg PO BID #60 tablet 01/07/24 [Rx] Ipratropium-Albuterol Nebulize [Duoneb 0.5 mg-3 mg/3 ml Soln] 3 ml INHALATION RT-Q2H PRN each 01/07/24 [Rx] Ipratropium-Albuterol Nebulize [Duoneb 0.5 mg-3 mg/3 ml Soln] 3 ml INHALATION RT-QID #100 each 01/07/24 [Rx] Ondansetron Odt [Zofran ODT] 4 mg PO Q8HR PRN #20 tab 01/07/24 [Rx] guaiFENesin SYRUP 100MG/5ML [Robitussin] 200 mg PO TID PRN #120 ml 01/07/24 [Rx] Benzocaine/Menthol Lozeng [Cepacol lozenge] 1 lozenge MUCOUS MEM Q4HR PRN 01/15/24 [History] Ibuprofen [Motrin Ib] 400 mg PO Q8H PRN 01/15/24 [History] Ibuprofen [Motrin Ib] 600 mg PO BID 01/15/24 [History] Amoxic-Pot Clav 875-125Mg [Augmentin 875-125] 1 tab PO Q12HR 7 Days #14 tab 01/17/24 [Rx] Nicotine 14Mg/24Hr Patch [Habitrol] 1 patch TRANSDERM DAILY patch 01/17/24 [Rx] Ticagrelor [Brilinta] 90 mg PO BID #60 tab 01/17/24 [Rx] Follow up Appointment(s)/Referral(s): Beatrice Martin MD [STAFF PHYSICIAN] - 01/29/24 1:45 pm Miya Johnson MD [Primary Care Provider] - 03/03/24 1:30 pm (with beth card np. office will call you to set up earlier appointment date.) Patient Instructions/Handouts: Hypokalemia (DC), COPD (Chronic Obstructive Pulmonary Disease) (DC), Colitis (ED) Activity/Diet/Wound Care/Special Instructions: Activity limited until follow-up Follow-up with primary care provider on discharge Follow-up with pulmonary outpatient Continue taking medications as prescribed Continue current diet Continue antibiotics until finished Avoid all alcohol intake Continue to attempt to quit using tobacco Discharge/Stand Alone Forms: AA Meetings [address] - [facility], AA Meetings [facility], [facility] Resources, Outpatient Counseling, In Substance Abuse Facilities Discharge Disposition: HOME SELF-CARE
== END 2024-01-17 17:35 | disposition home or self-care (01) | DRG 140 ==
LOC: EC 23:57 → 1SOBS 01-15 04:03 → 6NMEDSUR 01-15 04:22 → 5NMEDONC 01-15 14:05 → OBSVTOIN 01-16 11:03
PROVIDERS: ADMIT Hospitalist; ATTEND Hospitalist
DX: J44.1 Chronic obstructive pulmonary disease with (acute) exacerbation (principal); J96.21 Acute and chronic respiratory failure with hypoxia; I69.351 Hemiplegia and hemiparesis following cerebral infarction affecting right dominant side; F10.129 Alcohol abuse with intoxication, unspecified; G40.909 Epilepsy, unspecified, not intractable, without status epilepticus; I10 Essential (primary) hypertension; F10.10 Alcohol abuse, uncomplicated; F17.210 Nicotine dependence, cigarettes, uncomplicated; K52.9 Noninfective gastroenteritis and colitis, unspecified; K57.32 Diverticulitis of large intestine without perforation or abscess without bleeding; J20.9 Acute bronchitis, unspecified; I25.10 Atherosclerotic heart disease of native coronary artery without angina pectoris; J44.89 Other specified chronic obstructive pulmonary disease; Z95.828 Presence of other vascular implants and grafts; I69.328 Other speech and language deficits following cerebral infarction; I25.2 Old myocardial infarction; Z81.1 Family history of alcohol abuse and dependence; Z79.51 Long term (current) use of inhaled steroids; Z79.82 Long term (current) use of aspirin; Z79.02 Long term (current) use of antithrombotics/antiplatelets; Z79.1 Long term (current) use of non-steroidal anti-inflammatories (NSAID); Z91.81 History of falling; Z87.19 Personal history of other diseases of the digestive system; Z79.899 Other long term (current) drug therapy; Z91.040 Latex allergy status; Z88.7 Allergy status to serum and vaccine; Z88.5 Allergy status to narcotic agent; Z91.018 Allergy to other foods
CPT/HCPCS: 36415; 71046; 74176; 80048; 80053; 83605; 84484; 85025; 85610; 85730; 87636; 93005; 94640; 96372; 96374; 96375; 96376; 99285

== ENCOUNTER 2024-01-31 01:24 | Emergency (ER) | payer OTHER ==
[2024-01-31 01:54] VITALS: RESP 18; TEMP 97.5
--- NOTE | 2024-01-31 02:26 | ED ---
Alcohol HPI - General Chief Complaint: Alcohol Stated Complaint: ETOH Time Seen by Provider: 01/31/24 01:27 Source: EMS Mode of arrival: EMS - History of Present Illness Initial Comments: 63-year-old female with a history of severe alcohol use disorder with multiple hospitalizations due to alcohol intoxication is brought to the ER today by ambulance. Patient admits she has been drinking alcohol throughout the day she had 2 falls from walking with her walker landing onto her buttocks and she complains of pain in her low back. No other complaints. Patient also notes some pain in her knees from crawling to her bed. - Related Data Home Medications Medication Instructions Recorded Confirmed Aspirin EC [Ecotrin Low Dose] 81 mg PO HS 02/11/19 01/15/24 Simvastatin [Zocor] 40 mg PO HS 07/03/22 01/15/24 Albuterol Nebulized [Ventolin 2.5 mg INHALATION RT-QID PRN 05/17/23 01/15/24 Nebulized] Budesonide/Formoterol Fumarate 2 puff INHALATION RT-BID 07/29/23 01/15/24 [Symbicort 160-4.5 Mcg Inhaler] Multivitamin [Multivitamins Adult 2 tab PO HS 12/04/23 01/15/24 Gummies] Pantoprazole [Protonix] 40 mg PO HS 01/02/24 01/15/24 Benzocaine/Menthol Lozeng [Cepacol 1 lozenge MUCOUS MEM Q4HR PRN 01/15/24 01/15/24 lozenge] Ibuprofen [Motrin Ib] 400 mg PO Q8H PRN 01/15/24 01/15/24 Ibuprofen [Motrin Ib] 600 mg PO BID 01/15/24 01/15/24 Previous Rx's Medication Instructions Recorded Isosorbide Mononitrate ER [Imdur] 60 mg PO HS 30 Days #30 tab 12/07/23 Metoprolol Succinate (ER) [Toprol 100 mg PO HS 30 Days #30 tab 12/07/23 XL] Thiamine [Vitamin B-1] 100 mg PO DAILY #30 tablet 01/04/24 Benzonatate [Tessalon Perle] 200 mg PO TID PRN #10 cap 01/07/24 Famotidine [Pepcid] 20 mg PO BID #60 tablet 01/07/24 Ipratropium-Albuterol Nebulize 3 ml INHALATION RT-Q2H PRN each 01/07/24 [Duoneb 0.5 mg-3 mg/3 ml Soln] Ipratropium-Albuterol Nebulize 3 ml INHALATION RT-QID #100 each 01/07/24 [Duoneb 0.5 mg-3 mg/3 ml Soln] Ondansetron Odt [Zofran ODT] 4 mg PO Q8HR PRN #20 tab 01/07/24 guaiFENesin SYRUP 100MG/5ML 200 mg PO TID PRN #120 ml 01/07/24 [Robitussin] Amoxic-Pot Clav 875-125Mg 1 tab PO Q12HR 7 Days #14 tab 01/17/24 [Augmentin 875-125] Nicotine 14Mg/24Hr Patch [Habitrol] 1 patch TRANSDERM DAILY patch 01/17/24 Ticagrelor [Brilinta] 90 mg PO BID #60 tab 01/17/24 Allergies Allergy/AdvReac Type Severity Reaction Status Date / Time [place] And Derivatives Allergy Rash/Hives Verified 01/15/24 07:55 [[place]] latex Allergy Rash/Hives Verified 01/15/24 07:55 Influenza Virus Vaccines AdvReac Nausea & Verified 01/15/24 07:55 Vomiting morphine AdvReac Nausea & Verified 01/15/24 07:55 Vomiting tomato AdvReac Diarrhea Verified 01/15/24 07:55 Review of Systems ROS Statement: Those systems with pertinent positive or pertinent negative responses have been documented in the HPI. ROS Other: All systems not noted in ROS Statement are negative. Past Medical History Past Medical History: Asthma, Coronary Artery Disease (CAD), COPD, CVA/TIA, Eye Disorder, Hypertension, Liver Disease, Myocardial Infarction ([place]), Seizure Disorder, Vascular Disorder Additional Past Medical History / Comment(s): Pt recently admitted to [facility] for diarrhea, ETOH abuse. 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 soon Last Myocardial Infarction Date:: aug 2018 History of Any Multi-Drug Resistant Organisms: None Reported Past Surgical History: Cholecystectomy, Heart Catheterization, Orthopedic Surgery Additional Past Surgical History / Comment(s): L caratid stent, bilateral knee surgeries for tendon repair, bartholian cyst removed bilateral wrists, cataracts Past Anesthesia/Blood Transfusion Reactions: Motion Sickness Additional Past Anesthesia/Blood Transfusion Reaction / Comment(s): Pt has received blood without reaction. Past Psychological History: Anxiety, Depression Smoking Status: Current every day smoker Past Alcohol Use History: Abuse, Daily, Heavy Past Drug Use History: Marijuana - Past Family History Mother Family Medical History: Cancer, Congestive Heart Failure (CHF), Coronary Artery Disease (CAD), Hyperlipidemia Additional Family Medical History / Comment(s): Mother at age 85 from lung cancer. Father Family Medical History: Cancer, COPD Additional Family Medical History / Comment(s): Father at age 63 from lung cancer. Brother(s) Additional Family Medical History / Comment(s): Patient has a total of 7 siblings. 5 are alive without any major medical problems she is aware of. 2 siblings have one from alcohol abuse and 1. Coronary artery disease. Daughter(s) Family Medical History: No Reported History Additional Family Medical History / Comment(s): Patient has one daughter with no major medical problems. General Exam - General Exam Comments Initial Comments: Physical Exam GENERAL: Chronically ill-appearing, appears older than stated age Strong odor of alcohol HENT: Normocephalic, Atraumatic EYES: PERRL, EOMI PULMONARY: Unlabored respirations. No audible rales rhonchi or wheezing was noted. CARDIOVASCULAR: There is a regular rate and rhythm without any murmurs gallops or rubs. ABDOMEN: Soft and nontender with normal bowel sounds. SKIN: Pale : Deferred NEUROLOGIC: Patient is alert and oriented x3. Moving all extremities spontaneously Slurred speech MUSCULOSKELETAL: Normal extremities with adequate strength and full range of motion. Patient on right knee PSYCHIATRIC: Normal psychiatric evaluation. Course Vital Signs 01/31/24 01/31/24 01:28 05:37 Temperature 97.5 F L Pulse Rate 87 72 Respiratory 18 18 Rate Blood Pressure 104/69 93/59 O2 Sat by Pulse 98 95 Oximetry Medical Decision Making - Medical Decision Making Was pt. sent in by a medical professional or institution (, PA, SMALL ENGINE MECHANIC, urgent care, hospital, or retirement...) When possible be specific @ -No Did you speak to anyone other than the patient for history (EMS, parent, family, police, friend...)? What history was obtained from this source @ -EMS Did you review nursing and triage notes (agree or disagree)? Why? @ -I reviewed and agree with nursing and triage notes Were old charts reviewed (outside hosp., previous admission, EMS record, old EKG, old radiological studies, urgent care reports/EKG's, retirement records)? Report findings @ -Previous ER visits and admissions were reviewed Differential Diagnosis (chest pain, altered mental status, abdominal pain women, abdominal pain men, vaginal bleeding, weakness, fever, dyspnea, syncope, headache, dizziness, GI bleed, back pain, seizure, CVA, palpatations, mental health)? @ -Differential Back Pain: Strain, zoster, cauda equina syndrome, epidural abscess, vertebral osteomyelitis, discitis, fracture, subluxation, disc herniation, DJD, spinal stenosis, dissection, AAA, pancreatitis, peptic ulcer disease, pyelonephritis, kidney stone, this is not meant to be an all-inclusive list. EKG interpreted by me (3pts min.). @ -As above X-rays interpreted by me (1pt min.). @ -No obvious fractures no compression CT interpreted by me (1pt min.). @ -None done U/S interpreted by me (1pt. min.). @ -None done What testing was considered but not performed or refused? (CT, X-rays, U/S, labs)? Why? @ -None What meds were considered but not given or refused? Why? @ -None Did you discuss the management of the patient with other professionals (professionals i.e. , PA, SMALL ENGINE MECHANIC, lab, RT, psych nurse, social worker health services, echo technician, teacher, forest officer, hospice case manager)? Give summary @ -No Was smoking cessation discussed for >3mins.? @ -No Was critical care preformed (if so, how long)? @ -No Were there social determinants of health that impacted care today? How? (Homelessness, low income, unemployed, alcoholism, drug addiction, transportation, low edu. Level, literacy, decrease access to med. care, [facility], rehab)? @ -No Was there de-escalation of care discussed even if they declined (Discuss DNR or withdrawal of care, Hospice)? DNR status @ -No What co-morbidities impacted this encounter? (DM, HTN, Smoking, COPD, CAD, Cancer, CVA, ARF, Chemo, Hep., AIDS, mental health diagnosis, sleep apnea, morbid obesity)? @ -None Was patient admitted / discharged? Hospital course, mention meds given and route, prescriptions, significant lab abnormalities, going to OR and other pertinent info. @ -Discharge Patient was seen and evaluated, history is obtained from patient, patient is intoxicated but complains only of low back pain. Imaging revealed no obvious injuries. Patient's breath alcohol was 222, her speech is clear and she is appropriate. patient clear for discharge home when she has a ride. Patient's repeat breath alcohol was in the 170s, she continued to relax for approximately 45 minutes but then became anxious to leave. Patient was ambulating in circles around the emergency department with her walker. She was speaking clearly at her baseline mental status here for discharge home stating that she cannot sleep when she is at the hospital and she just wants to go home and sleep. At this time patient is clinically sober and capable of making reasonable decisions states she can pay for a cab ride home. Because patient came by EMS and her nightgown she was given socks and pants and was able to ambulate from room 14 to the emergency room exit and call for. Undiagnosed new problem with uncertain prognosis? @ -No Drug Therapy requiring intensive monitoring for toxicity (Heparin, Nitro, Insulin, Cardizem)? @ -No Were any procedures done? @ -No Diagnosis/symptom? @ -Low back pain Acute, or Chronic, or Acute on Chronic? @ -Acute Uncomplicated (without systemic symptoms) or Complicated (systemic symptoms)? @ -Uncomplicated Side effects of treatment? @ -No Exacerbation, Progression, or Severe Exacerbation? @ -No Poses a threat to life or bodily function? How? (Chest pain, [place], [place], pneumonia, PE, COPD, DKA, ARF, appy, cholecystitis, CVA, Diverticulitis, Homicidal, Suicidal, threat to staff... and all critical care pts) @ -No Disposition Clinical Impression: Low back pain, Alcohol intoxication Disposition: HOME SELF-CARE Condition: Stable Instructions (If sedation given, give patient instructions): Alcohol Intoxication (ED) Is patient prescribed a controlled substance at d/c from ED?: No Referrals: Miya Johnson MD [Primary Care Provider] - 1-2 days
--- NOTE | 2024-01-31 03:38 | XR ---
EXAM: XR Lumbosacral Spine, 2 or 3 Views CLINICAL HISTORY: ITS.REASON XR Reason: low back pain TECHNIQUE: Frontal and lateral views of the lumbar spine and sacrum. COMPARISON: 12/26/2022 FINDINGS: Vertebrae: Chronic anterior wedging of L1 and L4.. Normal sagittal alignment. Minimal levoscoliosis. Disc spaces: No significant narrowing. Soft tissues: Unremarkable. IMPRESSION: No acute findings.
[2024-01-31] MEDS: IBUPROFEN 600 MG TAB PO STA (05:15)
[2024-01-31 05:39] VITALS: BP 93/59; PULSE 72
== END 2024-01-31 05:40 | disposition home or self-care (01) ==
LOC: EC 01:24
DX: M54.50 Low back pain, unspecified (principal); F10.129 Alcohol abuse with intoxication, unspecified; F17.200 Nicotine dependence, unspecified, uncomplicated; F12.90 Cannabis use, unspecified, uncomplicated; Z91.018 Allergy to other foods; Z91.040 Latex allergy status; Z88.5 Allergy status to narcotic agent; Z88.7 Allergy status to serum and vaccine
CPT/HCPCS: 72100; 99285

== ENCOUNTER 2024-02-02 10:54 | Observation (INO) | payer OTHER ==
--- NOTE | 2024-02-02 12:52 | ED ---
Back Pain HPI - General Chief Complaint: Back Pain/Injury Stated Complaint: BACK PAIN Time Seen by Provider: 02/02/24 11:42 Source: patient, RN notes reviewed Mode of arrival: EMS Limitations: no limitations - History of Present Illness Initial Comments: This is a 63-year-old female who presents to the emergency department for a fall. States that she consumed alcohol last night, but is not sure how much, and ended up falling. She landed on her back and currently has lower back pain. Unsure if she hit her head or had any loss of consciousness. Not taking any blood thinners. States that she is starting to become nauseous. She has a seizure disorder, but is unsure if this is related to alcohol withdrawals. MD Complaint: back pain, back injury, fall - Related Data Home Medications Medication Instructions Recorded Confirmed Aspirin EC [Ecotrin Low Dose] 81 mg PO HS 02/11/19 01/15/24 Simvastatin [Zocor] 40 mg PO HS 07/03/22 01/15/24 Albuterol Nebulized [Ventolin 2.5 mg INHALATION RT-QID PRN 05/17/23 01/15/24 Nebulized] Budesonide/Formoterol Fumarate 2 puff INHALATION RT-BID 07/29/23 01/15/24 [Symbicort 160-4.5 Mcg Inhaler] Multivitamin [Multivitamins Adult 2 tab PO HS 12/04/23 01/15/24 Gummies] Pantoprazole [Protonix] 40 mg PO HS 01/02/24 01/15/24 Benzocaine/Menthol Lozeng [Cepacol 1 lozenge MUCOUS MEM Q4HR PRN 01/15/24 01/15/24 lozenge] Ibuprofen [Motrin Ib] 400 mg PO Q8H PRN 01/15/24 01/15/24 Ibuprofen [Motrin Ib] 600 mg PO BID 01/15/24 01/15/24 Previous Rx's Medication Instructions Recorded Isosorbide Mononitrate ER [Imdur] 60 mg PO HS 30 Days #30 tab 12/07/23 Metoprolol Succinate (ER) [Toprol 100 mg PO HS 30 Days #30 tab 12/07/23 XL] Thiamine [Vitamin B-1] 100 mg PO DAILY #30 tablet 01/04/24 Benzonatate [Tessalon Perle] 200 mg PO TID PRN #10 cap 01/07/24 Famotidine [Pepcid] 20 mg PO BID #60 tablet 01/07/24 Ipratropium-Albuterol Nebulize 3 ml INHALATION RT-Q2H PRN each 01/07/24 [Duoneb 0.5 mg-3 mg/3 ml Soln] Ipratropium-Albuterol Nebulize 3 ml INHALATION RT-QID #100 each 01/07/24 [Duoneb 0.5 mg-3 mg/3 ml Soln] Ondansetron Odt [Zofran ODT] 4 mg PO Q8HR PRN #20 tab 01/07/24 guaiFENesin SYRUP 100MG/5ML 200 mg PO TID PRN #120 ml 01/07/24 [Robitussin] Amoxic-Pot Clav 875-125Mg 1 tab PO Q12HR 7 Days #14 tab 01/17/24 [Augmentin 875-125] Nicotine 14Mg/24Hr Patch [Habitrol] 1 patch TRANSDERM DAILY patch 01/17/24 Ticagrelor [Brilinta] 90 mg PO BID #60 tab 01/17/24 Allergies Allergy/AdvReac Type Severity Reaction Status Date / Time [place] And Derivatives Allergy Rash/Hives Verified 02/02/24 11:35 [[place]] latex Allergy Rash/Hives Verified 02/02/24 11:35 Influenza Virus Vaccines AdvReac Nausea & Verified 02/02/24 11:35 Vomiting morphine AdvReac Nausea & Verified 02/02/24 11:35 Vomiting tomato AdvReac Diarrhea Verified 02/02/24 11:35 Review of Systems ROS Statement: Those systems with pertinent positive or pertinent negative responses have been documented in the HPI. ROS Other: All systems not noted in ROS Statement are negative. Past Medical History Past Medical History: Asthma, Coronary Artery Disease (CAD), COPD, CVA/TIA, Eye Disorder, Hypertension, Liver Disease, Myocardial Infarction ([place]), Seizure Disorder, Vascular Disorder Additional Past Medical History / Comment(s): Pt recently admitted to [facility] for diarrhea, ETOH abuse. 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 soon Last Myocardial Infarction Date:: aug 2018 History of Any Multi-Drug Resistant Organisms: None Reported Past Surgical History: Cholecystectomy, Heart Catheterization, Orthopedic Surgery Additional Past Surgical History / Comment(s): L caratid stent, bilateral knee surgeries for tendon repair, bartholian cyst removed bilateral wrists, cataracts Past Anesthesia/Blood Transfusion Reactions: Motion Sickness Additional Past Anesthesia/Blood Transfusion Reaction / Comment(s): Pt has received blood without reaction. Past Psychological History: Anxiety, Depression Smoking Status: Current every day smoker Past Alcohol Use History: Abuse, Daily, Heavy Past Drug Use History: Marijuana - Past Family History Mother Family Medical History: Cancer, Congestive Heart Failure (CHF), Coronary Artery Disease (CAD), Hyperlipidemia Additional Family Medical History / Comment(s): Mother at age 85 from lung cancer. Father Family Medical History: Cancer, COPD Additional Family Medical History / Comment(s): Father at age 63 from lung cancer. Brother(s) Additional Family Medical History / Comment(s): Patient has a total of 7 sibl ings. 5 are alive without any major medical problems she is aware of. 2 siblings have one from alcohol abuse and 1. Coronary artery disease. Daughter(s) Family Medical History: No Reported History Additional Family Medical History / Comment(s): Patient has one daughter with no major medical problems. General Exam Limitations: no limitations General appearance: alert, appears intoxicated, anxious Head exam: Present: atraumatic, normocephalic, normal inspection Eye exam: Present: normal appearance, PERRL, EOMI. Absent: scleral icterus, conjunctival injection, periorbital swelling Respiratory exam: Present: normal lung sounds bilaterally. Absent: respiratory distress, wheezes, rales, rhonchi, stridor Cardiovascular Exam: Present: regular rate, normal rhythm, normal heart sounds. Absent: systolic murmur, diastolic murmur, rubs, gallop, clicks Back exam: Present: tenderness (Lower lumbar spine) Neurological exam: Present: alert, oriented X3, CN II-XII intact Psychiatric exam: Present: normal affect, normal mood Skin exam: Present: warm, dry, intact, normal color. Absent: rash Course Vital Signs 02/02/24 02/02/24 11:26 16:00 Temperature 97.6 F Pulse Rate 93 103 H Respiratory 20 18 Rate Blood Pressure 112/72 132/91 O2 Sat by Pulse 97 93 L Oximetry Medical Decision Making - Medical Decision Making This is a 63 year old female who presents to the emergency department for lower back pain after a fall. Was pt. sent in by a medical professional or institution? @ -No Did you speak to anyone other than the patient for history? @ -No Did you review nursing and triage notes? @ -Yes, and I agree, it is accurate with regards to the patient's symptoms. Were old charts reviewed? @ -No Differential Diagnosis? @ -Differential Back Pain: Strain, zoster, cauda equina syndrome, epidural abscess, vertebral osteomyelitis, discitis, fracture, subluxation, disc herniation, DJD, spinal stenosis, dissection, AAA, pancreatitis, peptic ulcer disease, pyelonephritis, kidney stone, this is not meant to be an all-inclusive list. EKG interpreted by me (3pts min.)? @ -EKG interpreted by me demonstrating the following: Sinus tachycardia. Ventricular rate 101 bpm, AL interval 152 ms, QRS duration 89 ms, QTc 447 ms. X-rays interpreted by me (1pt min.)? @ -X-ray of the lumbar spine obtained. My interpretation identifies degenerative changes without any acute process. CT interpreted by me (1pt min.)? @ -Computed tomography scan of the brain and c-spine obtained. My interpretation identifies no evidence of an acute intracranial hemorrhage, skull fracture, or cervical spine fracture. U/S interpreted by me (1pt. min.)? @ -Not obtained What testing was considered but not performed? (CT, X-rays, U/S, labs)? Why? @ -None What meds were considered but not given? Why? @ -None Did you discuss the management of the patient with other professionals? @ -Yes, Dr. Barron, who accepts the patient for admission. Did you reconcile home meds? @ -No Was smoking cessation discussed for >3mins.? @ -I discussed smoking cessation for greater than 3 minutes. The risk of smoking were discussed with the patient including but not limited to risks of cancer, stroke, coronary artery disease and COPD. Also discussed with patient were multiple methods of quitting smoking. Lastly we discussed the financial cost of smoking. Was critical care preformed (if so, how long)? @ -No Were there social determinants of health that impacted care today? How? (Homelessness, low income, unemployed, alcoholism, drug addiction, transportation, low edu. Level, literacy, decrease access to med. care, nursing home, rehab)? @ -Alcoholism, contributing to her fall, which led to her visit today. Was there de-escalation of care discussed even if they declined? (Discuss DNR or withdrawal of care, Hospice)? @ -No What co-morbidities impacted this encounter? (DM, HTN, Smoking, COPD, CAD, Cancer, CVA, Hep., AIDS, mental health diagnosis, sleep apnea, morbid obesity)? @ -Alcoholism, smoking, CAD, HTN, seizure disorder Was patient admitted / discharged? @ -Admitted. CT scan of the brain and C-spine obtained revealing no acute process. X-ray of the lumbar spine obtained revealing stable chronic mild superior endplate compression fractures of L1 and L4. No acute process was identified. Lab work demonstrates an alcohol level of 362 and lactic acid of 3.2. Elevated liver enzymes likely secondary to alcoholism. Patient did start to complain of chest pain in the emergency department, and an EKG was obtained demonstrating diffuse nonspecific ST changes, which are similar when compared with prior EKGs. Troponin ordered with results pending at the time of admission along with serial troponins due to hx of CAD. Patient admitted to medicine for alcohol intoxication and lactic acidosis. She was started on maintenance fluids and the CIWA protocol was initiated as well. Undiagnosed new problem with uncertain prognosis? @ -None Drug Therapy requiring intensive monitoring for toxicity (Heparin, Nitro, Insulin, Cardizem)? @ -None Were any procedures done? @ -None Diagnosis/symptom? @ -Alcohol intoxication, lactic acidosis, fall Acute, or Chronic, or Acute on Chronic? @ -Acute Uncomplicated (without systemic symptoms) or Complicated (systemic symptoms)? @ -Complicated Side effects of treatment? @ -None Exacerbation, Progression, or Severe Exacerbation] @ -Not applicable Poses a threat to life or bodily function? @ -Yes This case was discussed in detail with the attending ED physician, Dr. Robison. Presentation, findings, and treatment plan discussed in detail as well. - Lab Data Result diagrams: 02/02/24 12:10 02/02/24 12:10 Lab Results 03/02/02/24 02/02/24 Range/Units 12:10 12:10 12:10 WBC 4.3 (3.8-10.6) k/uL RBC 4.18 (3.80-5.40) m/uL Hgb 13.5 (11.4-16.0) gm/dL Hct 39.4 (34.0-46.0) % MCV 94.3 (80.0-100.0) fL MCH 32.2 (25.0-35.0) pg MCHC 34.2 (31.0-37.0) g/dL RDW 17.4 H (11.5-15.5) % Plt Count 121 L (150-450) k/uL MPV 9.3 Neutrophils % 31 % Lymphocytes % 54 % Monocytes % 7 % Eosinophils % 1 % Basophils % 3 % Neutrophils # 1.3 (1.3-7.7) k/uL Lymphocytes # 2.3 (1.0-4.8) k/uL Monocytes # 0.3 (0-1.0) k/uL Eosinophils # 0.1 (0-0.7) k/uL Basophils # 0.1 (0-0.2) k/uL Manual Slide Review Performed Anisocytosis Slight Sodium 142 (137-145) mmol/L Potassium 3.7 (3.5-5.1) mmol/L Chloride 105 (98-107) mmol/L Carbon Dioxide 19 L (22-30) mmol/L Anion Gap 18 mmol/L BUN 7 (7-17) mg/dL Creatinine 0.57 (0.52-1.04) mg/dL Est GFR (CKD-EPI)AfAm >90 (>60 ml/min/1.73 sqM) Est GFR (CKD-EPI)NonAf >90 (>60 ml/min/1.73 sqM) Glucose 74 (74-99) mg/dL Lactic Ac Sepsis Rflx Plasma Lactic Acid [place] 3.2 H* (0.7-2.0) mmol/L Calcium 8.3 L (8.4-10.2) mg/dL Total Bilirubin 0.6 (0.2-1.3) mg/dL AST 166 H (14-36) U/L ALT 96 H (4-34) U/L Alkaline Phosphatase 219 H (38-126) U/L Troponin I (0.000-0.034) ng/mL Total Protein 7.2 (6.3-8.2) g/dL Albumin 4.4 (3.5-5.0) g/dL Serum Alcohol 362 H* mg/dL 02/02/24 02/02/24 02/02/24 Range/Units 13:24 16:52 17:10 WBC (3.8-10.6) k/uL RBC (3.80-5.40) m/uL Hgb (11.4-16.0) gm/dL Hct (34.0-46.0) % MCV (80.0-100.0) fL MCH (25.0-35.0) pg MCHC (31.0-37.0) g/dL RDW (11.5-15.5) % Plt Count (150-450) k/uL MPV Neutrophils % % Lymphocytes % % Monocytes % % Eosinophils % % Basophils % % Neutrophils # (1.3-7.7) k/uL Lymphocytes # (1.0-4.8) k/uL Monocytes # (0-1.0) k/uL Eosinophils # (0-0.7) k/uL Basophils # (0-0.2) k/uL Manual Slide Review Anisocytosis Sodium (137-145) mmol/L Potassium (3.5-5.1) mmol/L Chloride (98-107) mmol/L Carbon Dioxide (22-30) mmol/L Anion Gap mmol/L BUN (7-17) mg/dL Creatinine (0.52-1.04) mg/dL Est GFR (CKD-EPI)AfAm (>60 ml/min/1.73 sqM) Est GFR (CKD-EPI)NonAf (>60 ml/min/1.73 sqM) Glucose (74-99) mg/dL Lactic Ac Sepsis Rflx Y Plasma Lactic Acid [place] 3.0 H* (0.7-2.0) mmol/L Calcium (8.4-10.2) mg/dL Total Bilirubin (0.2-1.3) mg/dL AST (14-36) U/L ALT (4-34) U/L Alkaline Phosphatase (38-126) U/L Troponin I 0.021 (0.000-0.034) ng/mL Total Protein (6.3-8.2) g/dL Albumin (3.5-5.0) g/dL Serum Alcohol mg/dL - Radiology Data Radiology results: report reviewed, image reviewed Disposition Clinical Impression: Alcohol intoxication, Lactic acidosis, Nicotine dependence Disposition: ADMITTED IP TO THIS [facility] Time of Disposition: 16:17
[2024-02-02 13:03] LABS: Anisocytosis Slight; Basophils # (A) 0.1 k/uL (0-0.2); Basophils % (A) 3 %; Eosinophils # (A) 0.1 k/uL (0-0.7); Eosinophils % (A) 1 %; HCT 39.4 % (34.0-46.0); HGB 13.5 gm/dL (11.4-16.0); Lymphocytes # (A) 2.3 k/uL (1.0-4.8); Lymphocytes % (A) 54 %; MCH 32.2 pg (25.0-35.0); MCHC 34.2 g/dL (31.0-37.0); MCV 94.3 fL (80.0-100.0); Mean Platelet Volume 9.3; Monocytes # (A) 0.3 k/uL (0-1.0); Monocytes % (A) 7 %; Neutrophils # (A) 1.3 k/uL (1.3-7.7); Neutrophils % (A) 31 %; Platelet Count 121 k/uL (150-450); RBC 4.18 m/uL (3.80-5.40); RDW 17.4 % (11.5-15.5); WBC 4.3 k/uL (3.8-10.6)
[2024-02-02 13:05] LABS: ALT 96 U/L (4-34); AST 166 U/L (14-36); African American GFR (CKD) >90 (>60 ml/min/1.73 sqM); Albumin 4.4 g/dL (3.5-5.0); Alkaline Phosphatase 219 U/L (38-126); Anion Gap 18 mmol/L; Blood Urea Nitrogen 7 mg/dL (7-17); Calcium 8.3 mg/dL (8.4-10.2); Carbon Dioxide 19 mmol/L (22-30); Chloride 105 mmol/L (98-107); Glucose 74 mg/dL (74-99); Non-African American GFR(CKD) >90 (>60 ml/min/1.73 sqM); Potassium 3.7 mmol/L (3.5-5.1); Sodium 142 mmol/L (137-145); Total Bilirubin 0.6 mg/dL (0.2-1.3); Total Protein 7.2 g/dL (6.3-8.2)
--- NOTE | 2024-02-02 13:14 | CT ---
EXAMINATION TYPE: CT brain roni wo con DATE OF EXAM: 02/02/2024 COMPARISON: 11/17/2023 HISTORY: Trauma Automated exposure control for dose reduction was used. TECHNIQUE: CT scan of the head and cervical spine are performed without contrast. Findings: Head CT: There is a stable 12 mm colloid cyst in the foramen of Yu. Ventricles, basal cisterns and sulci over convexities are mildly prominent consistent mild atrophy. T here is no mass, mass effect or shift of midline structures. There is remote infarct in the left parietal lobe. There is no acute intra or extra-axial hemorrhage. Posterior fossa including the brainstem, fourth ventricle and cerebellar pontine angles are grossly n ormal. The intraorbital contents appear normal and symmetric. Visualized paranasal sinuses are well aerated. CT cervical spine: Craniovertebral junction relationships and prevertebral soft tissues are normal. The cervical vertebral segments are normal in height and alignment and there is no fracture subluxati on. There is mild disc space narrowing indicating mild degenerative disease at C4-5 and C5-6 levels. The bony cervical canal is widely patent and there is no bony encroachment of the neural foramina. The paraspinal soft tissues unremarkable. IMPRESSION: 1. Head CT: No acute bleed or mass effect. Stable colloid cyst as described above. 2. CT cervical spine: No acute trauma. Mild degenerative disc disease.
[2024-02-02 13:24] LABS: Alcohol 362 mg/dL
[2024-02-02] MEDS: KETOROLAC 15 MG/ML 1 ML VIAL IVP STA ×2 (13:37→14:34)
[2024-02-02] MEDS: LIDOCAINE 4% PATCH TOPICAL ONE (13:37)
[2024-02-02] MEDS: SODIUM CHLORIDE 0.9% 1,000 ML IV STA (13:37)
[2024-02-02] MEDS: ONDANSETRON 4 MG/2 ML VIAL IVP STA (13:37)
--- NOTE | 2024-02-02 13:37 | XR ---
Lumbar spine HISTORY: Back pain COMPARISON: 08/19/2023 and 01/31/2024. TECHNIQUE: 3 views lumbar spine were obtained. FINDINGS: There are mild stable chronic superior endplate compression fractures of L1 and L4. The lumbar vertebral segments are normal in alignment. There is mild degenerative disc disease at the L2-3, L3-4 and L4-5 levels where there is mild disc sp laura narrowing and spondylosis. There is sclerosis of the facet joints at the L5-S1 level. The sacrum and SI joints are normal. IMPRESSION: 1. Stable chronic mild superior endplate compression fractures of L1 and L4. 2. Mild degenerative disease. 3. No acute changes.
[2024-02-02] MEDS: METOCLOPRAMIDE 5 MG/ML 2 ML VIAL IVP STA (14:34)
[2024-02-02] MEDS: ACETAMINOPHEN TAB 500 MG TAB PO STA (14:35)
[2024-02-02] MEDS ORDERED: ACETAMINOPHEN TAB 325 MG TAB PO PRN (16:21)
[2024-02-02] MEDS ORDERED: NALOXONE 0.4 MG/ML 1 ML VIAL IV PRN (16:21)
[2024-02-02] MEDS ORDERED: ONDANSETRON 4 MG/2 ML VIAL IVP PRN (16:21)
[2024-02-02] MEDS ORDERED: LORazepam 2 MG/ML INJ IV PRN ×2 (16:22)
[2024-02-02] MEDS ORDERED: LORazepam 1 MG TAB PO PRN (16:22)
[2024-02-02] MEDS: THIAMINE 100 MG/ML 2 ML VIAL IM STA (16:42)
[2024-02-02] MEDS: SODIUM CHLORIDE 0.9% 1,000 ML IV SCH (16:42)
[2024-02-02] MEDS: LORazepam 2 MG/ML INJ IV PRN (18:01)
[2024-02-02] MEDS: SODIUM CHLORIDE 0.9% 1,000 ML IV ONE (18:14)
[2024-02-02] MEDS ORDERED: BENZONATATE 100 MG CAP PO PRN (21:07)
[2024-02-02] MEDS: ASPIRIN 81 MG PO STA (21:23)
[2024-02-02] MEDS: METOPROLOL SUCCINATE (ER) 100 MG TAB.ER.24H PO SCH (21:54)
[2024-02-03] MEDS: LORazepam 2 MG/ML INJ IV PRN (01:43)
[2024-02-03] MEDS: KETOROLAC 15 MG/ML 1 ML VIAL IVP PRN (01:48)
[2024-02-03 04:45] LABS: Amorphous Sediment,Urine Rare /hpf; Appearance,Urine Clear (Clear); Bacteria,Urine Moderate /hpf; Bilirubin,Urine Negative (Negative); Blood,Urine Moderate (Negative); Color,Urine Colorless; Glucose,Urine (UA) Negative (Negative); Ketones,Urine 1+ (Negative); Leukocyte Esterase,Urine Negative (Negative); Mucus,Urine Rare /hpf; Nitrite,Urine Negative (Negative); PH, Urine 6.5 (5.0-8.0); Protein,Urine Negative (Negative); RBC,Urine 1 /hpf (0-5); Specific Gravity,Urine 1.007 (1.001-1.035); Squamous Epithelial Cell,Urine 2 /hpf (0-4); Urobilinogen,Urine <2.0 mg/dL (<2.0); WBC,Urine 2 /hpf (0-5)
[2024-02-03 04:54] LABS: Amphetamine Screen,Urine Not Detected (NotDetected); Barbiturate Screen,Urine Not Detected (NotDetected); Benzodiazepines Screen,Urine Not Detected (NotDetected); Cocaine Screen,Urine Not Detected (NotDetected); Methadone Screen, Urine Not Detected (NotDetected); Opiate Screen,Urine Not Detected (NotDetected); Oxycodone Screen, Urine Not Detected (NotDetected); Phencyclidine Screen,Urine Not Detected (NotDetected); Tricyclic Antidepressant,Urine Not Detected (NotDetected); Urn Cannabinoid Scrn Not Detected (NotDetected)
[2024-02-03] MEDS: ALBUTEROL NEBULIZED 2.5 MG/3 ML INHALATION PRN (05:03)
[2024-02-03] MEDS: SYMBICORT 160-4.5 MCG INHALER INHALATION SCH (08:27)
[2024-02-03] MEDS: PANTOPRAZOLE 40 MG/10 ML VIAL IV SCH (08:59)
[2024-02-03] MEDS: THIAMINE 100 MG TAB PO SCH (08:59)
[2024-02-03] MEDS: TICAGRELOR 90 MG TAB PO SCH (09:00)
[2024-02-03 09:31] VITALS: TEMP 98
[2024-02-03] MEDS: BRIMONIDINE TARTRATE 0.2% DROPS 5 ML BTL BOTH EYES SCH (09:49)
--- NOTE | 2024-02-03 13:34 | P.HPIM ---
History of Present Illness H&P Date: 02/03/24 History of present illness; patient is a 63-year-old lady with past medical history significant for hyperlipidemia, who presented to the ER after a fall patient stated that she has been drinking last night and does not know how much she drank but ended up falling. Patient denies any complaint of loss of consciousness. Patient admits to hurting her back on falling. Does not remember hitting her head. There was no complaint of chest pain or shortness of breath. There was no complaint of orthopnea or PND. Denies any fever or chills. Because of fall, patient came to the ER.Initial lab work done in the ER showed WBC 4.3, hemoglobin 13.5, platelet count 121, sodium 122, potassium 3.7, BUN 7, creatinine 0.57, lactate 3.2, calcium 8.3 Serum alcohol level 362, lactate 3.2 EKG done in the ER showed heart rate of 101, no ST segment elevation or depression seen, no T-wave inversions seen. Lumbar spine x-ray done showed stable chronic mild Endplate compression fracture of L1 and L4 CT head done showed no acute intracranial process CT cervical spine done showed no acute trauma or fractures. Patient admitted to internal medicine service REVIEW OF SYSTEMS: CONSTITUTIONAL: No fever, no malaise, no fatigue. HEENT: No recent visual problems or hearing problems. Denied any sore throat. CARDIOVASCULAR: No chest pain, orthopnea, PND, no palpitations, no syncope. PULMONARY: No shortness of breath, no cough, no hemoptysis. GASTROINTESTINAL: No diarrhea, no nausea, no vomiting, no abdominal pain. NEUROLOGICAL: No headaches, no weakness, no numbness. HEMATOLOGICAL: Denies any bleeding or petechiae. GENITOURINARY: Denies any burning micturition, frequency, or urgency. MUSCULOSKELETAL/RHEUMATOLOGICAL: Complaining of back pain ENDOCRINE: Denies any polyuria or polydipsia. The rest of the 14-point review of systems is negative. PHYSICAL EXAMINATION: GENERAL: The patient is alert and oriented x3, not in any acute distress. Well developed, well nourished. HEENT: Pupils are round and equally reacting to light. EOMI. No scleral icterus. No conjunctival pallor. Normocephalic, atraumatic. No pharyngeal erythema. No thyromegaly. CARDIOVASCULAR: S1 and S2 present. No murmurs, rubs, or gallops. PULMONARY: Coarse breath sound bilaterally, expiratory wheeze audible ABDOMEN: Soft, nontender, nondistended, normoactive bowel sounds. No palpable organomegaly. MUSCULOSKELETAL: No joint swelling or deformity. EXTREMITIES: No cyanosis, clubbing, or pedal edema. NEUROLOGICAL: Gross neurological examination did not reveal any focal deficits. SKIN: No rashes. Assessment and plan Fall Alcohol intoxication Elevated troponin Impending alcohol detox Lactic acidosis Alcoholic hepatitis Chronic compression fractures of L1 and L4 COPD Benign essential hypertension Coronary arteriosclerosis and previous stent of RCA History of seizure disorder Peripheral vessel occlusive disease Monitor vital signs Monitor CBC Monitor CMP Continue telemetry monitoring Continue IV fluids Continue CIWA protocol Continue high-dose thiamine and folic acid Ordered 2D echo Trend troponins Consider cardiology Resume home meds Labs and medication were reviewed.. Continue same treatment. Continue with symptomatic treatment. Resume home medication. Monitor labs and vitals. DVT and GI prophylaxis. Further recommendations as per clinical course of the patient Dictation was produced using [employer] dictation software. please excuse any grammatical, word or spelling errors. Past Medical History Past Medical History: Asthma, Coronary Artery Disease (CAD), COPD, CVA/TIA, Eye Disorder, Hypertension, Liver Disease, Myocardial Infarction ([place]), Seizure Disorder, Vascular Disorder Additional Past Medical History / Comment(s): Pt recently admitted to [facility] for diarrhea, ETOH abuse. 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 soon Last Myocardial Infarction Date:: aug 2018 History of Any Multi-Drug Resistant Organisms: None Reported Past Surgical History: Cholecystectomy, Heart Catheterization, Orthopedic Surgery Additional Past Surgical History / Comment(s): L caratid stent, bilateral knee surgeries for tendon repair, bartholian cyst removed bilateral wrists, cataracts Past Anesthesia/Blood Transfusion Reactions: Motion Sickness Additional Past Anesthesia/Blood Transfusion Reaction / Comment(s): Pt has received blood without reaction. Past Psychological History: Anxiety, Depression Smoking Status: Current every day smoker Past Alcohol Use History: Abuse, Daily, Heavy Past Drug Use History: Marijuana - Past Family History Mother Family Medical History: Cancer, Congestive Heart Failure (CHF), Coronary Artery Disease (CAD), Hyperlipidemia Additional Family Medical History / Comment(s): Mother at age 85 from lung cancer. Father Family Medical History: Cancer, COPD Additional Family Medical History / Comment(s): Father at age 63 from lung cancer. Brother(s) Additional Family Medical History / Comment(s): Patient has a total of 7 siblings. 5 are alive without any major medical problems she is aware of. 2 siblings have one from alcohol abuse and 1. Coronary artery disease. Daughter(s) Family Medical History: No Reported History Additional Family Medical History / Comment(s): Patient has one daughter with no major medical problems. Medications and Allergies Home Medications Medication Instructions Recorded Confirmed Type Aspirin EC [Ecotrin Low Dose] 81 mg PO HS 02/11/19 02/02/24 History Simvastatin [Zocor] 40 mg PO HS 07/03/22 02/02/24 History Albuterol Nebulized [Ventolin 2.5 mg INHALATION RT-QID PRN 05/17/23 02/02/24 History Nebulized] Budesonide/Formoterol Fumarate 2 puff INHALATION RT-BID 07/29/23 02/02/24 History [Symbicort 160-4.5 Mcg Inhaler] Multivitamin [Multivitamins Adult 2 tab PO HS 12/04/23 02/02/24 History Gummies] Isosorbide Mononitrate ER [Imdur] 60 mg PO HS 30 Days #30 tab 12/07/23 02/02/24 Rx Metoprolol Succinate (ER) [Toprol 100 mg PO HS 30 Days #30 tab 12/07/23 02/02/24 Rx XL] Pantoprazole [Protonix] 40 mg PO HS 01/02/24 02/02/24 History Thiamine [Vitamin B-1] 100 mg PO DAILY #30 tablet 01/04/24 02/02/24 Rx Benzonatate [Tessalon Perle] 200 mg PO TID PRN #10 cap 01/07/24 02/02/24 Rx Famotidine [Pepcid] 20 mg PO BID #60 tablet 01/07/24 02/02/24 Rx Ipratropium-Albuterol Nebulize 3 ml INHALATION RT-Q2H PRN each 01/07/24 02/02/24 Rx [Duoneb 0.5 mg-3 mg/3 ml Soln] Ipratropium-Albuterol Nebulize 3 ml INHALATION RT-QID #100 each 01/07/24 02/02/24 Rx [Duoneb 0.5 mg-3 mg/3 ml Soln] Ondansetron Odt [Zofran ODT] 4 mg PO Q8HR PRN #20 tab 01/07/24 02/02/24 Rx guaiFENesin SYRUP 100MG/5ML 200 mg PO TID PRN #120 ml 01/07/24 02/02/24 Rx [Robitussin] Benzocaine/Menthol Lozeng [Cepacol 1 lozenge MUCOUS MEM Q4HR PRN 01/15/24 02/02/24 History lozenge] Ibuprofen [Motrin Ib] 400 mg PO Q8H PRN 01/15/24 02/02/24 History Ibuprofen [Motrin Ib] 600 mg PO BID 01/15/24 02/02/24 History Nicotine 14Mg/24Hr Patch [Habitrol] 1 patch TRANSDERM DAILY patch 01/17/24 02/02/24 Rx Ticagrelor [Brilinta] 90 mg PO BID #60 tab 01/17/24 02/02/24 Rx Brimonidine Tartrate [Alphagan P 1 drop BOTH EYES BID 02/02/24 02/02/24 History 0.2% Ophth Soln] Fluticasone Nasal [place] [Flonase 2 spray EA NOSTRIL BID 02/02/24 02/02/24 History Nasal [place]] Allergies Allergy/AdvReac Type Severity Reaction Status Date / Time Pratt And Derivatives Allergy Rash/Hives Verified 02/02/24 19:53 [Pratt] latex Allergy Rash/Hives Verified 02/02/24 19:53 Influenza Virus Vaccines AdvReac Nausea & Verified 02/02/24 19:53 Vomiting morphine AdvReac Nausea & Verified 02/02/24 19:53 Vomiting tomato AdvReac Diarrhea Verified 02/02/24 19:53 Physical Exam Vitals: Vital Signs Temp Pulse Pulse Resp BP BP Pulse Ox 02/03/24 08:53 98.0 F 84 16 119/87 95 02/03/24 08:41 86 16 131/90 98 02/03/24 08:14 68 16 130/90 98 02/03/24 07:23 89 16 163/100 96 02/03/24 05:10 90 02/03/24 05:05 91 20 156/105 96 02/03/24 05:04 85 02/03/24 03:30 92 20 156/105 92 L 02/03/24 01:00 91 18 97 02/02/24 21:28 117 H 16 171/99 98 02/02/24 18:00 98 02/02/24 16:00 103 H 18 132/91 93 L 02/02/24 11:26 97.6 F 93 20 112/72 97 Results CBC & Chem 7: 02/02/24 12:10 02/02/24 12:10 Labs: Abnormal Lab Results - Last 24 Hours (Table) 02/02/24 02/02/24 02/02/24 Range/Units 12:10 12:10 12:10 RDW 17.4 H (11.5-15.5) % Plt Count 121 L (150-450) k/uL Carbon Dioxide 19 L (22-30) mmol/L Plasma Lactic Acid Camron 3.2 H* (0.7-2.0) mmol/L Calcium 8.3 L (8.4-10.2) mg/dL AST 166 H (14-36) U/L ALT 96 H (4-34) U/L Alkaline Phosphatase 219 H (38-126) U/L Troponin I (0.000-0.034) ng/mL Urine Ketones (Negative) Urine Blood (Negative) Amorphous Sediment (None) /hpf Urine Bacteria (None) /hpf Urine Mucus (None) /hpf Serum Alcohol 362 H* mg/dL 02/02/24 02/02/24 02/03/24 Range/Units 17:10 20:18 04:00 RDW (11.5-15.5) % Plt Count (150-450) k/uL Carbon Dioxide (22-30) mmol/L Plasma Lactic Acid Camron 3.0 H* 2.7 H* (0.7-2.0) mmol/L Calcium (8.4-10.2) mg/dL AST (14-36) U/L ALT (4-34) U/L Alkaline Phosphatase (38-126) U/L Troponin I (0.000-0.034) ng/mL Urine Ketones 1+ H (Negative) Urine Blood Moderate H (Negative) Amorphous Sediment Rare H (None) /hpf Urine Bacteria Moderate H (None) /hpf Urine Mucus Rare H (None) /hpf Serum Alcohol mg/dL 02/03/24 Range/Units 05:00 RDW (11.5-15.5) % Plt Count (150-450) k/uL Carbon Dioxide (22-30) mmol/L Plasma Lactic Acid Camron (0.7-2.0) mmol/L Calcium (8.4-10.2) mg/dL AST (14-36) U/L ALT (4-34) U/L Alkaline Phosphatase (38-126) U/L Troponin I 0.035 H* (0.000-0.034) ng/mL Urine Ketones (Negative) Urine Blood (Negative) Amorphous Sediment (None) /hpf Urine Bacteria (None) /hpf Urine Mucus (None) /hpf Serum Alcohol mg/dL
[2024-02-03] MEDS: guaiFENesin SYRUP 100MG/5ML 200 MG/10 ML CUP PO PRN (17:13)
[2024-02-03] MEDS ORDERED: METOPROLOL SUCCINATE (ER) 100 MG TAB.ER.24H PO SCH (21:00)
[2024-02-03] MEDS ORDERED: PANTOPRAZOLE 40 MG TABLET PO SCH (21:00)
[2024-02-03] MEDS: IBUPROFEN 400 MG TAB PO PRN (21:28)
[2024-02-03] MEDS: ASPIRIN 81 MG PO SCH (21:28)
[2024-02-03] MEDS: ATORVASTATIN 20 MG TAB PO SCH (21:28)
[2024-02-03] MEDS: FLUTICASONE 50MCG/SPRAY NASAL 16GM EA NOSTRIL SCH (21:28)
[2024-02-03] MEDS: NICOTINE 21MG/24HR PATCH TRANSDERM SCH (21:29)
[2024-02-04 08:27] VITALS: RESP 16
[2024-02-04 12:11] VITALS: BP 137/86; PULSE 86
--- NOTE | 2024-02-04 12:11 | CA ---
Transthoracic Echo Report Name: Anna Marie Valladares Age: 63 Gender: F : 1960 Exam Date: 02/04/2024 09:00 Exam Location: [place] [facility] Ht (in): 62 Wt (lb): 135 Ordering Physician: Travis Barron MD Attending/Referring Phys: F[employer] Chris Mitchell RDCS Procedure CPT: Indications: elevated troponin Cardiac Hx: Technical Quality: Contrast 1: Definity Total Dose (mL): 2 Contrast 2: Total Dose (mL): MEASUREMENTS (Male / Female) Normal Values 2D ECHO LV Diastolic Diameter PLAX 4.7 cm 4.2 - 5.9 / 3.9 - 5.3 cm LV Systolic Diameter PLAX 3.1 cm IVS Diastolic Thickness 1.0 cm 0.6 - 1.0 / 0.6 - 0.9 cm LVPW Diastolic Thickness 1.2 cm 0.6 - 1.0 / 0.6 - 0.9 cm LV Relative Wall Thickness 0.5 FINDINGS Left Ventricle Left ventricular ejection fraction is estimated at 55-60 %. Right Ventricle Right Atrium Left Atrium Mitral Valve Aortic Valve Tricuspid Valve Pulmonic Valve Pericardium Aorta CONCLUSIONS Limited study, previous echo recored on 12/05/2023. Normal left ventricular size and systolic function Previewed by: Dr. Maura Rosales MD (Electronically Signed) Final Date: 04 February 2024 12:10
--- NOTE | 2024-02-04 12:39 | P.DS ---
Providers Date of admission: 02/02/24 17:21 Expected date of discharge: 02/04/24 Attending physician: Travis Barron MD Consults: 02/03/24 08:48 Consult Physician Routine Consulting Provider: Unruly Howard Consult Reason/Comments: elevated troponin Do you want consulting provider notified?: Yes Primary care physician: [facility] Course: Discharge diagnoses; Fall Alcohol intoxication Elevated troponin Impending alcohol detox Lactic acidosis Alcoholic hepatitis Chronic compression fractures of L1 and L4 COPD Benign essential hypertension Coronary arteriosclerosis and previous stent of RCA History of seizure disorder Peripheral vessel occlusive disease Hospital course; patient is a 63-year-old lady with past medical history significant for hyperlipidemia, who presented to the ER after a fall patient stated that she has been drinking last night and does not know how much she drank but ended up falling. Patient denies any complaint of loss of consciousness. Patient admits to hurting her back on falling. Does not remember hitting her head. There was no complaint of chest pain or shortness of breath. There was no complaint of orthopnea or PND. Denies any fever or chills. Because of fall, patient came to the ER.Initial lab work done in the ER showed WBC 4.3, hemoglobin 13.5, platelet count 121, sodium 122, potassium 3.7, BUN 7, creatinine 0.57, lactate 3.2, calcium 8.3 Serum alcohol level 362, lactate 3.2 EKG done in the ER showed heart rate of 101, no ST segment elevation or depression seen, no T-wave inversions seen. Lumbar spine x-ray done showed stable chronic mild Endplate compression fracture of L1 and L4 CT head done showed no acute intracranial process CT cervical spine done showed no acute trauma or fractures. Patient admitted to internal medicine service 02/03. Patient seen and examined. CIWA scores have been low, last one was 1. 2D echo done showed normal LV function. Cardiology cleared the patient for discharge PHYSICAL EXAMINATION: GENERAL: The patient is alert and oriented x3, not in any acute distress. Well developed, well nourished. HEENT: Pupils are round and equally reacting to light. EOMI. No scleral icterus. No conjunctival pallor. Normocephalic, atraumatic. No pharyngeal erythema. No thyromegaly. CARDIOVASCULAR: S1 and S2 present. No murmurs, rubs, or gallops. PULMONARY: Chest is clear to auscultation, no wheezing or crackles. ABDOMEN: Soft, nontender, nondistended, normoactive bowel sounds. No palpable organomegaly. MUSCULOSKELETAL: No joint swelling or deformity. EXTREMITIES: No cyanosis, clubbing, or pedal edema. NEUROLOGICAL: Gross neurological examination did not reveal any focal deficits. SKIN: No rashes. Dictation was produced using [employer] dictation software. please excuse any grammatical, word or spelling errors. Patient Condition at Discharge: Good Plan - Discharge Summary Discharge Rx Participant: No New Discharge Prescriptions: Continue Aspirin EC [Ecotrin Low Dose] 81 mg PO HS Budesonide/Formoterol Fumarate [Symbicort 160-4.5 Mcg Inhaler] 2 puff INHALATION RT-BID Multivitamin [Multivitamins Adult Gummies] 2 tab PO HS Metoprolol Succinate (ER) [Toprol XL] 100 mg PO HS 30 Days #30 tab Ipratropium-Albuterol Nebulize [Duoneb 0.5 mg-3 mg/3 ml Soln] 3 ml INHALATION RT-QID #100 each Ipratropium-Albuterol Nebulize [Duoneb 0.5 mg-3 mg/3 ml Soln] 3 ml INHALATION RT-Q2H PRN each PRN Reason: Shortness Of Breath Or Wheezing Famotidine [Pepcid] 20 mg PO BID #60 tablet guaiFENesin SYRUP 100MG/5ML [Robitussin] 200 mg PO TID PRN #120 ml PRN Reason: Cough Ibuprofen [Motrin Ib] 400 mg PO Q8H PRN PRN Reason: Pain Ibuprofen [Motrin Ib] 600 mg PO BID Ticagrelor [Brilinta] 90 mg PO BID #60 tab Simvastatin [Zocor] 40 mg PO HS Albuterol Nebulized [Ventolin Nebulized] 2.5 mg INHALATION RT-QID PRN PRN Reason: Shortness Of Breath Isosorbide Mononitrate ER [Imdur] 60 mg PO HS 30 Days #30 tab Pantoprazole [Protonix] 40 mg PO HS Thiamine [Vitamin B-1] 100 mg PO DAILY #30 tablet Benzonatate [Tessalon Perle] 200 mg PO TID PRN #10 cap PRN Reason: Cough Ondansetron Odt [Zofran ODT] 4 mg PO Q8HR PRN #20 tab PRN Reason: Nausea Benzocaine/Menthol Lozeng [Cepacol lozenge] 1 lozenge MUCOUS MEM Q4HR PRN PRN Reason: Cough Nicotine 14Mg/24Hr Patch [Habitrol] 1 patch TRANSDERM DAILY patch Brimonidine Tartrate [Alphagan P 0.2% Ophth Soln] 1 drop BOTH EYES BID Fluticasone Nasal [place] [Flonase Nasal [place]] 2 spray EA NOSTRIL BID Discharge Medication List Aspirin EC [Ecotrin Low Dose] 81 mg PO HS 02/11/19 [History] Simvastatin [Zocor] 40 mg PO HS 07/03/22 [History] Albuterol Nebulized [Ventolin Nebulized] 2.5 mg INHALATION RT-QID PRN 05/17/23 [History] Budesonide/Formoterol Fumarate [Symbicort 160-4.5 Mcg Inhaler] 2 puff INHALATION RT-BID 07/29/23 [History] Multivitamin [Multivitamins Adult Gummies] 2 tab PO HS 12/04/23 [History] Isosorbide Mononitrate ER [Imdur] 60 mg PO HS 30 Days #30 tab 12/07/23 [Rx] Metoprolol Succinate (ER) [Toprol XL] 100 mg PO HS 30 Days #30 tab 12/07/23 [Rx] Pantoprazole [Protonix] 40 mg PO HS 01/02/24 [History] Thiamine [Vitamin B-1] 100 mg PO DAILY #30 tablet 01/04/24 [Rx] Benzonatate [Tessalon Perle] 200 mg PO TID PRN #10 cap 01/07/24 [Rx] Famotidine [Pepcid] 20 mg PO BID #60 tablet 01/07/24 [Rx] Ipratropium-Albuterol Nebulize [Duoneb 0.5 mg-3 mg/3 ml Soln] 3 ml INHALATION RT-Q2H PRN each 01/07/24 [Rx] Ipratropium-Albuterol Nebulize [Duoneb 0.5 mg-3 mg/3 ml Soln] 3 ml INHALATION RT-QID #100 each 01/07/24 [Rx] Ondansetron Odt [Zofran ODT] 4 mg PO Q8HR PRN #20 tab 01/07/24 [Rx] guaiFENesin SYRUP 100MG/5ML [Robitussin] 200 mg PO TID PRN #120 ml 01/07/24 [Rx] Benzocaine/Menthol Lozeng [Cepacol lozenge] 1 lozenge MUCOUS MEM Q4HR PRN 01/15/24 [History] Ibuprofen [Motrin Ib] 400 mg PO Q8H PRN 01/15/24 [History] Ibuprofen [Motrin Ib] 600 mg PO BID 01/15/24 [History] Nicotine 14Mg/24Hr Patch [Habitrol] 1 patch TRANSDERM DAILY patch 01/17/24 [Rx] Ticagrelor [Brilinta] 90 mg PO BID #60 tab 01/17/24 [Rx] Brimonidine Tartrate [Alphagan P 0.2% Ophth Soln] 1 drop BOTH EYES BID 02/02/24 [History] Fluticasone Nasal [place] [Flonase Nasal [place]] 2 spray EA NOSTRIL BID 02/02/24 [History] Follow up Appointment(s)/Referral(s): Miya Johnson MD [Primary Care Provider] - 02/13/24 2:30 pm (Sunday with [employer]) Unruly Howard MD [STAFF PHYSICIAN] - 02/11/24 2:45 pm (Sunday) Discharge Disposition: HOME SELF-CARE
== END 2024-02-04 15:25 | disposition home or self-care (01) ==
LOC: EC 10:54 → 4SSUR 17:21 → INTOOBSV 17:21 → 4SSUR 19:56 → 3SCARD 21:49 → UNDODISIN 02-04 15:25
PROVIDERS: ADMIT Internal Medicine; ATTEND Internal Medicine
PROC: HZ2ZZZZ Detoxification Services for Substance Abuse Treatment (ICD-10-PCS; principal; 2024-02-02)
DX: F10.229 Alcohol dependence with intoxication, unspecified (principal); E87.20 Acidosis, unspecified; K70.10 Alcoholic hepatitis without ascites; R79.89 Other specified abnormal findings of blood chemistry; I25.10 Atherosclerotic heart disease of native coronary artery without angina pectoris; J44.9 Chronic obstructive pulmonary disease, unspecified; Y90.8 Blood alcohol level of 240 mg/100 ml or more; I10 Essential (primary) hypertension; E78.5 Hyperlipidemia, unspecified; G40.909 Epilepsy, unspecified, not intractable, without status epilepticus; M48.56XA Collapsed vertebra, not elsewhere classified, lumbar region, initial encounter for fracture; W19.XXXA Unspecified fall, initial encounter; F17.200 Nicotine dependence, unspecified, uncomplicated; Z79.02 Long term (current) use of antithrombotics/antiplatelets; Z79.51 Long term (current) use of inhaled steroids; Z79.82 Long term (current) use of aspirin; Z79.899 Other long term (current) drug therapy; Z91.040 Latex allergy status; Z88.7 Allergy status to serum and vaccine; Z91.018 Allergy to other foods; Z88.5 Allergy status to narcotic agent; Z95.5 Presence of coronary angioplasty implant and graft
CPT/HCPCS: 96376 ×3; 96375 ×2; 96361; 96372; 96374; 99285; 36415; 99406; 94640 ×3; 93005; 80053; 83605 ×2; 84484 ×2; 85025; 81001; 80306; 72100; 72125; 70450; G0378 ×4; C8924; G0480; S4990 ×2; J2060 ×2; J2765; J3411; J2405; Q9957; J1885 ×2; C9113 ×2; 80320; 93308

== ENCOUNTER 2024-02-13 07:23 | Observation (INO) | payer OTHER ==
--- NOTE | 2024-02-13 07:50 | ED ---
General Adult HPI - General Chief complaint: Abdominal Pain Stated complaint: NVD Time Seen by Provider: 02/13/24 07:28 Source: patient, EMS, RN notes reviewed Mode of arrival: EMS Limitations: no limitations - History of Present Illness Initial comments: Patient is a 63-year-old female presenting to the emergency department with nausea vomiting and diarrhea. Patient states onset of symptoms was 3 days ago. Patient states she was in the hospital prior to that for the same symptoms however states that symptoms just started 3 days ago. Patient was question regarding this and unable to provide an answer. Patient has been having both vomiting and diarrhea. Patient does have abdominal discomfort. Patient has history of similar symptoms previously associated with "diverticulosis ". Patient denies fevers. Patient has been weak recently and EMS states that patient has not gotten out of bed in 3 days. Patient was found covered and urine and stool. - Related Data Home Medications Medication Instructions Recorded Confirmed Aspirin EC [Ecotrin Low Dose] 81 mg PO HS 02/11/19 02/13/24 Simvastatin [Zocor] 40 mg PO HS 07/03/22 02/13/24 Albuterol Nebulized [Ventolin 2.5 mg INHALATION RT-QID PRN 05/17/23 02/13/24 Nebulized] Budesonide/Formoterol Fumarate 2 puff INHALATION RT-BID 07/29/23 02/13/24 [Symbicort 160-4.5 Mcg Inhaler] Multivitamin [Multivitamins Adult 2 tab PO HS 12/04/23 02/13/24 Gummies] Pantoprazole [Protonix] 40 mg PO HS 01/02/24 02/13/24 Benzocaine/Menthol Lozeng [Cepacol 1 lozenge MUCOUS MEM Q4HR PRN 01/15/24 02/13/24 lozenge] Ibuprofen [Motrin Ib] 400 mg PO Q8H PRN 01/15/24 02/13/24 Ibuprofen [Motrin Ib] 600 mg PO BID 01/15/24 02/13/24 Brimonidine Tartrate [Alphagan P 1 drop BOTH EYES BID 02/02/24 02/13/24 0.2% Ophth Soln] Fluticasone Nasal [place] [Flonase 2 spray EA NOSTRIL BID 02/02/24 02/13/24 Nasal [place]] Previous Rx's Medication Instructions Recorded Isosorbide Mononitrate ER [Imdur] 60 mg PO HS 30 Days #30 tab 12/07/23 Metoprolol Succinate (ER) [Toprol 100 mg PO HS 30 Days #30 tab 12/07/23 XL] Thiamine [Vitamin B-1] 100 mg PO DAILY #30 tablet 01/04/24 Benzonatate [Tessalon Perle] 200 mg PO TID PRN #10 cap 01/07/24 Famotidine [Pepcid] 20 mg PO BID #60 tablet 01/07/24 Ipratropium-Albuterol Nebulize 3 ml INHALATION RT-Q2H PRN each 01/07/24 [Duoneb 0.5 mg-3 mg/3 ml Soln] Ipratropium-Albuterol Nebulize 3 ml INHALATION RT-QID #100 each 01/07/24 [Duoneb 0.5 mg-3 mg/3 ml Soln] Ondansetron Odt [Zofran ODT] 4 mg PO Q8HR PRN #20 tab 01/07/24 guaiFENesin SYRUP 100MG/5ML 200 mg PO TID PRN #120 ml 01/07/24 [Robitussin] Nicotine 14Mg/24Hr Patch [Habitrol] 1 patch TRANSDERM DAILY patch 01/17/24 Ticagrelor [Brilinta] 90 mg PO BID #60 tab 01/17/24 Allergies Allergy/AdvReac Type Severity Reaction Status Date / Time [place] And Derivatives Allergy Rash/Hives Verified 02/13/24 09:31 [[place]] latex Allergy Rash/Hives Verified 02/13/24 09:31 Influenza Virus Vaccines AdvReac Nausea & Verified 02/13/24 09:31 Vomiting morphine AdvReac Nausea & Verified 02/13/24 09:31 Vomiting tomato AdvReac Diarrhea Verified 02/13/24 09:31 Review of Systems ROS Statement: Those systems with pertinent positive or pertinent negative responses have been documented in the HPI. ROS Other: All systems not noted in ROS Statement are negative. Constitutional: Denies: fever Eyes: Denies: eye pain ENT: Denies: ear pain Respiratory: Denies: cough Cardiovascular: Denies: chest pain Endocrine: Denies: fatigue Gastrointestinal: Reports: as per HPI, abdominal pain, nausea, vomiting Genitourinary: Denies: dysuria Musculoskeletal: Denies: back pain Neurological: Reports: weakness Past Medical History Past Medical History: Asthma, Coronary Artery Disease (CAD), COPD, CVA/TIA, Eye Disorder, Hypertension, Liver Disease, Myocardial Infarction (VA), Seizure Disor joaquín, Vascular Disorder Additional Past Medical History / Comment(s): Pt recently admitted to [facility] for diarrhea, ETOH abuse. 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 soon Last Myocardial Infarction Date:: aug 2018 History of Any Multi-Drug Resistant Organisms: None Reported Past Surgical History: Cholecystectomy, Heart Catheterization, Orthopedic Surgery Additional Past Surgical History / Comment(s): L caratid stent, bilateral knee surgeries for tendon repair, bartholian cyst removed bilateral wrists, cataracts Past Anesthesia/Blood Transfusion Reactions: Motion Sickness Additional Past Anesthesia/Blood Transfusion Reaction / Comment(s): Pt has received blood without reaction. Past Psychological History: Anxiety, Depression Smoking Status: Current every day smoker Past Alcohol Use History: Abuse, Daily, Heavy Past Drug Use History: Marijuana - Past Family History Mother Family Medical History: Cancer, Congestive Heart Failure (CHF), Coronary Artery Disease (CAD), Hyperlipidemia Additional Family Medical History / Comment(s): Mother at age 85 from lung cancer. Father Family Medical History: Cancer, COPD Additional Family Medical History / Comment(s): Father at age 63 from lung cancer. Brother(s) Additional Family Medical History / Comment(s): Patient has a total of 7 siblings. 5 are alive without any major medical problems she is aware of. 2 siblings have one from alcohol abuse and 1. Coronary artery disease. Daughter(s) Family Medical History: No Reported History Additional Family Medical History / Comment(s): Patient has one daughter with no major medical problems. General Exam Limitations: no limitations General appearance: alert, in no apparent distress Head exam: Present: atraumatic, normocephalic Eye exam: Present: normal appearance, PERRL, EOMI ENT exam: Present: mucous membranes dry Neck exam: Present: normal inspection. Absent: tenderness, meningismus Respiratory exam: Present: normal lung sounds bilaterally Cardiovascular Exam: Present: tachycardia GI/Abdominal exam: Present: soft, tenderness (Mild to moderate diffuse tenderness), normal bowel sounds. Absent: distended Extremities exam: Present: normal inspection Neurological exam: Present: alert. Absent: motor sensory deficit Psychiatric exam: Present: normal affect, normal mood Skin exam: Present: normal color Course Vital Signs 02/13/24 02/13/24 02/13/24 07:28 08:28 09:52 Temperature 98 F Pulse Rate 114 H 104 H 96 Respiratory 20 22 18 Rate Blood Pressure 144/56 106/80 119/85 O2 Sat by Pulse 96 95 99 Oximetry EKG Findings - EKG Results: EKG: interpreted by ERMD (High QRS complexes. Inferior and lateral ST depression.), sinus rhythm, normal axis EKG shows: tachycardia Medical Decision Making - Medical Decision Making Was pt. sent in by a medical professional or institution (, PA, [employer] SAL[employer]ERSON [employer], urgent care, hospital, or retirement...) When possible be specific @ -No Did you speak to anyone other than the patient for history (EMS, parent, family, police, friend...)? What history was obtained from this source @ -EMS helps provide history including patient lying in bed for several days Did you review nursing and triage notes (agree or disagree)? Why? @ -I reviewed and agree with nursing and triage notes Were old charts reviewed (outside hosp., previous admission, EMS record, old EKG, old radiological studies, urgent care reports/EKG's, retirement records)? Report findings @ -No old charts were reviewed Differential Diagnosis (chest pain, altered mental status, abdominal pain women, abdominal pain men, vaginal bleeding, weakness, fever, dyspnea, syncope, headache, dizziness, GI bleed, back pain, seizure, CVA, palpatations, mental health, musculoskeletal)? @ -Differential Weakness: Hypoglycemia, shock, sepsis, hyponatremia, anemia, infection, VA, ETOH, adverse medicine reaction, overdose, stroke, this is not meant to be an all-inclusive list. EKG interpreted by me (3pts min.). @ -As above X-rays interpreted by me (1pt min.). @ -Chest and abdominal x-rays do not reveal acute abnormality CT interpreted by me (1pt min.). @ -CT scan abdomen pelvis shows mild nonspecific thickening descending colon U/S interpreted by me (1pt. min.). @ -None done What testing was considered but not performed or refused? (CT, X-rays, U/S, labs)? Why? @ -None What meds were considered but not given or refused? Why? @ -None Did you discuss the management of the patient with other professionals (professionals i.e. Dr., PA, [employer] SAL[employer]ERSON [employer], lab, RT, psych nurse, social welfare research worker, exhaust equipment operator, teacher, chief credit officer, manager of case)? Give summary @ -Case was discussed with Dr. Benítez who will admit covering Dr. Natarajan Was smoking cessation discussed for >3mins.? @ -No Was critical care preformed (if so, how long)? @ -No Were there social determinants of health that impacted care today? How? (Ho melessness, low income, unemployed, alcoholism, drug addiction, transportation, low edu. Level, literacy, decrease access to med. care, long-term, rehab)? @ -No Was there de-escalation of care discussed even if they declined (Discuss DNR or withdrawal of care, Hospice)? DNR status @ -No What co-morbidities impacted this encounter? (DM, HTN, Smoking, COPD, CAD, Cancer, CVA, ARF, Chemo, Hep., AIDS, mental health diagnosis, sleep apnea, morbid obesity)? @ -None Was patient admitted / discharged? Hospital course, mention meds given and route, prescriptions, significant lab abnormalities, going to OR and other pertinent info. @ -Patient reevaluated. Patient is updated on results and plan. Patient will be admitted with fluids and electrolyte replacement. Admission orders written. Patient will likely need placement for Undiagnosed new problem with uncertain prognosis? @ -No Drug Therapy requiring intensive monitoring for toxicity (Heparin, Nitro, Insulin, Cardizem)? @ -No Were any procedures done? @ -No Diagnosis/symptom? @ -Vomiting, diarrhea, weakness Acute, or Chronic, or Acute on Chronic? @ -Acute, acute, acute Uncomplicated (without systemic symptoms) or Complicated (systemic symptoms)? @ -Complicated with hypokalemia Side effects of treatment? @ -No Exacerbation, Progression, or Severe Exacerbation? @ -No Poses a threat to life or bodily function? How? (Chest pain, [place], VA, pneumonia, PE, COPD, DKA, ARF, appy, cholecystitis, CVA, Diverticulitis, Homicidal, Suicidal, threat to staff... and all critical care pts) @ -No - Lab Data Result diagrams: 02/13/24 08:09 02/13/24 08:09 Lab Results 02/13/24 02/13/24 02/13/24 Range/Units 08:09 08:09 08:09 WBC 7.9 (3.8-10.6) k/uL RBC 4.37 (3.80-5.40) m/uL Hgb 13.8 (11.4-16.0) gm/dL Hct 41.3 (34.0-46.0) % MCV 94.4 (80.0-100.0) fL MCH 31.5 (25.0-35.0) pg MCHC 33.4 (31.0-37.0) g/dL RDW 16.7 H (11.5-15.5) % Plt Count 50 L D (150-450) k/uL MPV 9.2 Neutrophils % 86 % Lymphocytes % 8 % Monocytes % 5 % Eosinophils % 0 % Basophils % 0 % Neutrophils # 6.8 (1.3-7.7) k/uL Lymphocytes # 0.6 L (1.0-4.8) k/uL Monocytes # 0.4 (0-1.0) k/uL Eosinophils # 0.0 (0-0.7) k/uL Basophils # 0.0 (0-0.2) k/uL Manual Slide Review Performed Anisocytosis Slight PT 11.4 (10.0-12.5) sec INR 1.1 (<1.2) APTT 24.7 (22.0-30.0) sec Sodium 133 L (137-145) mmol/L Potassium 2.7 L* (3.5-5.1) mmol/L Chloride 93 L (98-107) mmol/L Carbon Dioxide 24 (22-30) mmol/L Anion Gap 16 mmol/L BUN 10 (7-17) mg/dL Creatinine 0.57 (0.52-1.04) mg/dL Est GFR (CKD-EPI)AfAm >90 (>60 ml/min/1.73 sqM) Est GFR (CKD-EPI)NonAf >90 (>60 ml/min/1.73 sqM) Glucose 135 H (74-99) mg/dL Plasma Lactic Acid [place] (0.7-2.0) mmol/L Calcium 8.6 (8.4-10.2) mg/dL Magnesium 1.5 L (1.6-2.3) mg/dL Total Bilirubin 2.0 H (0.2-1.3) mg/dL AST 82 H (14-36) U/L ALT 44 H (4-34) U/L Alkaline Phosphatase 177 H (38-126) U/L Creatine Kinase 83 (30-135) U/L Troponin I (0.000-0.034) ng/mL Total Protein 7.2 (6.3-8.2) g/dL Albumin 4.4 (3.5-5.0) g/dL Amylase 75 (30-110) U/L Lipase 402 H (23-300) U/L Serum Alcohol <10 mg/dL Influenza Type A (PCR) (Not Detectd) Influenza Type B (PCR) (Not Detectd) RSV (PCR) (Not Detectd) SARS-CoV-2 (PCR) (Not Detectd) 02/13/24 02/13/24 02/13/24 Range/Units 08:09 08:09 08:09 WBC (3.8-10.6) k/uL RBC (3.80-5.40) m/uL Hgb (11.4-16.0) gm/dL Hct (34.0-46.0) % MCV (80.0-100.0) fL MCH (25.0-35.0) pg MCHC (31.0-37.0) g/dL RDW (11.5-15.5) % Plt Count (150-450) k/uL MPV Neutrophils % % Lymphocytes % % Monocytes % % Eosinophils % % Basophils % % Neutrophils # (1.3-7.7) k/uL Lymphocytes # (1.0-4.8) k/uL Monocytes # (0-1.0) k/uL Eosinophils # (0-0.7) k/uL Basophils # (0-0.2) k/uL Manual Slide Review Anisocytosis PT (10.0-12.5) sec INR (<1.2) APTT (22.0-30.0) sec Sodium (137-145) mmol/L Potassium (3.5-5.1) mmol/L Chloride (98-107) mmol/L Carbon Dioxide (22-30) mmol/L Anion Gap mmol/L BUN (7-17) mg/dL Creatinine (0.52-1.04) mg/dL Est GFR (CKD-EPI)AfAm (>60 ml/min/1.73 sqM) Est GFR (CKD-EPI)NonAf (>60 ml/min/1.73 sqM) Glucose (74-99) mg/dL Plasma Lactic Acid [place] 2.0 (0.7-2.0) mmol/L Calcium (8.4-10.2) mg/dL Magnesium (1.6-2.3) mg/dL Total Bilirubin (0.2-1.3) mg/dL AST (14-36) U/L ALT (4-34) U/L Alkaline Phosphatase (38-126) U/L Creatine Kinase (30-135) U/L Troponin I 0.026 (0.000-0.034) ng/mL Total Protein (6.3-8.2) g/dL Albumin (3.5-5.0) g/dL Amylase (30-110) U/L Lipase (23-300) U/L Serum Alcohol mg/dL Influenza Type A (PCR) Not Detected (Not Detectd) Influenza Type B (PCR) Not Detected (Not Detectd) RSV (PCR) Not Detected (Not Detectd) SARS-CoV-2 (PCR) Not Detected (Not Detectd) Disposition Clinical Impression: Vomiting Disposition: ADMITTED IP TO THIS HOSP Is patient prescribed a controlled substance at d/c from ED?: No Referrals: Miya Johnson MD [Primary Care Provider] - 1-2 days Time of Disposition: 10:50
[2024-02-13] MEDS: ONDANSETRON 4 MG/2 ML VIAL IVP STA (08:18)
[2024-02-13] MEDS: SODIUM CHLORIDE 0.9% 1,000 ML IV STA (08:18)
[2024-02-13] MEDS: DICYCLOMINE 10 MG/ML 2 ML AMP IM STA (08:20)
[2024-02-13 08:43] LABS: INR 1.1 (<1.2); Prothrombin Time 11.4 sec (10.0-12.5)
[2024-02-13 08:44] LABS: Partial Thromboplastin Time 24.7 sec (22.0-30.0)
[2024-02-13 08:45] LABS: Anisocytosis Slight; Basophils % (A) 0 %; Eosinophils % (A) 0 %; HCT 41.3 % (34.0-46.0); HGB 13.8 gm/dL (11.4-16.0); Lymphocytes # (A) 0.6 k/uL (1.0-4.8); Lymphocytes % (A) 8 %; MCH 31.5 pg (25.0-35.0); MCHC 33.4 g/dL (31.0-37.0); MCV 94.4 fL (80.0-100.0); Mean Platelet Volume 9.2; Monocytes # (A) 0.4 k/uL (0-1.0); Monocytes % (A) 5 %; Neutrophils # (A) 6.8 k/uL (1.3-7.7); Neutrophils % (A) 86 %; RBC 4.37 m/uL (3.80-5.40); RDW 16.7 % (11.5-15.5); WBC 7.9 k/uL (3.8-10.6)
[2024-02-13 09:11] LABS: ALT 44 U/L (4-34); AST 82 U/L (14-36); African American GFR (CKD) >90 (>60 ml/min/1.73 sqM); Albumin 4.4 g/dL (3.5-5.0); Alcohol <10 mg/dL; Alkaline Phosphatase 177 U/L (38-126); Amylase 75 U/L (30-110); Anion Gap 16 mmol/L; Blood Urea Nitrogen 10 mg/dL (7-17); Calcium 8.6 mg/dL (8.4-10.2); Carbon Dioxide 24 mmol/L (22-30); Chloride 93 mmol/L (98-107); Creatine Kinase 83 U/L (30-135); Glucose 135 mg/dL (74-99); Lipase 402 U/L (23-300); Magnesium 1.5 mg/dL (1.6-2.3); Non-African American GFR(CKD) >90 (>60 ml/min/1.73 sqM); Sodium 133 mmol/L (137-145); Total Protein 7.2 g/dL (6.3-8.2)
--- NOTE | 2024-02-13 09:21 | XR ---
EXAMINATION TYPE: XR chest 1V portable DATE OF EXAM: 02/13/2024 COMPARISON: 01/15/2024 INDICATION: Abdominal pain TECHNIQUE: Single frontal view of the chest is obtained. FINDINGS: The heart size is normal. The pulmonary vasculature is normal. The lungs are clear. IMPRESSION: 1. No acute pulmonary process.
[2024-02-13 09:22] LABS: Potassium 2.7 mmol/L (3.5-5.1)
--- NOTE | 2024-02-13 09:25 | XR ---
EXAMINATION TYPE: XR KUB DATE OF EXAM: 02/13/2024 COMPARISON: 02/11/2019 HISTORY: Abdomen pain TECHNIQUE: The abdomen FINDINGS: Nonspecific bowel gas is present. Small bowel loops and colonic bowel gas are present. No s uspicious mass effect evident. Psoas margins are normal. Osseous structures as visualized are intact. Indications. Organomegaly is n ormal. IMPRESSION: 1. Nonspecific bowel gas pattern.
[2024-02-13 10:00] LABS: Platelet Count 50 k/uL (150-450)
[2024-02-13] MEDS: POTASSIUM CHLORIDE 20 MEQ in WATER FOR INJECTION 1 100ML.BAG IVPB STA (10:01)
--- NOTE | 2024-02-13 10:11 | CT ---
EXAMINATION TYPE: CT abdomen pelvis w con DATE OF EXAM: 02/13/2024 COMPARISON: 01/15/2024 HISTORY: N/V/D, H/O DIVERTICULOSIS CT DLP: 889.9 mGycm CONTRAST: CT scan of the abdomen and pelvis is performed without Oral Contrast and with IV Contrast, patient in jected with 100 mL of Isovue 300. FINDINGS: LUNG BASES-: No visible nodule. No infiltrate. LIVER/GB: The gallbladder is surgically absent. There is hepatomegaly with underlying hepatic steat osis moderate in degree. No space occupying hepatic lesion. Biliary tree is of normal caliber. PANCREAS: No inflammation. No distinct mass. SPLEEN: No splenic enlargement. No lesion seen. ADRENALS: No nodule. No thickening. KIDNEYS/BLADDER: No hydronephrosis. No nephrolithiasis. No distinct renal mass. Urinary bladder g rossly unremarkable. BOWEL: Normal appendix. There is wall thickening involving the descending colon which could be relate d to spasm. Underlying nonspecific colitis is difficult to exclude. Sigmoid diverticulosis without di verticulitis. GENITAL ORGANS: No gross abnormality. LYMPH NODES: No greater than 1cm abdominal or pelvic lymph nodes are appreciated. AORTA: No significant abnormality. OSSEOUS STRUCTURES: No significant abnormality is seen. OTHER: No significant additional abnormality is seen. IMPRESSION: 1. There is wall thickening involving the descending colon which could be related to spasm. Underlyin g nonspecific colitis is difficult to exclude. Sigmoid diverticulosis without diverticulitis. 2. Hepatomegaly with underlying hepatic steatosis.
[2024-02-13 10:53] LABS: Appearance,Urine Cloudy (Clear); Bacteria,Urine Rare /hpf; Bilirubin,Urine Negative (Negative); Blood,Urine Small (Negative); Color,Urine Yellow; Glucose,Urine (UA) Negative (Negative); Ketones,Urine 3+ (Negative); Leukocyte Esterase,Urine Trace (Negative); Nitrite,Urine Negative (Negative); Protein,Urine 1+ (Negative); RBC,Urine 6 /hpf (0-5); Specific Gravity,Urine 1.036 (1.001-1.035); Squamous Epithelial Cell,Urine 3 /hpf (0-4); WBC,Urine 2 /hpf (0-5)
[2024-02-13] MEDS ORDERED: NALOXONE 0.4 MG/ML 1 ML VIAL IV PRN (10:53)
[2024-02-13] MEDS ORDERED: LOPERAMIDE 2 MG CAP PO PRN (10:53)
[2024-02-13] MEDS ORDERED: ONDANSETRON 4 MG/2 ML VIAL IVP PRN (10:53)
[2024-02-13] MEDS: SODIUM CHLORIDE 0.9% 1,000 ML IV SCH (11:13)
[2024-02-13] MEDS ORDERED: IBUPROFEN 200 MG TAB PO PRN (11:45)
[2024-02-13] MEDS ORDERED: BENZONATATE 100 MG CAP PO PRN (11:45)
--- NOTE | 2024-02-13 11:51 | P.HPIM ---
History of Present Illness Patient is a pleasant 63-year-old female came in with complaints of nausea vomiting diarrhea has been going on for 3 days along with bodyaches patient was recently diagnosed with influenza and influenza here is negative patient is foun d to be dehydrated with low sodium of 133 and potassium of 2.7 from diarrhea although creatinine is within normal limits magnesium was low as well. Patient has mildly elevated liver enzymes. Troponins are negative patient lipase mild minimally elevated to 402. Patient denies any fever or chills. Patient was having crampy diffuse abdominal pain which improved at this time patient did not have any diarrhea today. Patient denies any recent antibiotic use. Patient does have baseline tremor which is worse for last couple days since the diarrhea. Patient does have history of alcohol use and has thrombocytopenia secondary to that. Patient has significant generalized weakness REVIEW OF SYSTEMS: CONSTITUTIONAL: No fever, no malaise, no fatigue. HEENT: No recent visual problems or hearing problems. Denied any sore throat. CARDIOVASCULAR: No chest pain, orthopnea, PND, no palpitations, no syncope. PULMONARY: No shortness of breath, no cough, no hemoptysis. GASTROINTESTINAL as mentioned in HPI NEUROLOGICAL: No headaches, no weakness, no numbness. HEMATOLOGICAL: Denies any bleeding or petechiae. GENITOURINARY: Denies any burning micturition, frequency, or urgency. MUSCULOSKELETAL/RHEUMATOLOGICAL: Denies any joint pain, swelling, or any muscle pain. ENDOCRINE: Denies any polyuria or polydipsia. The rest of the 14-point review of systems is negative. PHYSICAL EXAMINATION: GENERAL: The patient is alert and oriented x3, not in any acute distress. Well developed, well nourished. HEENT: Pupils are round and equally reacting to light. EOMI. No scleral icterus. No conjunctival pallor. Normocephalic, atraumatic. No pharyngeal erythema. No thyromegaly. CARDIOVASCULAR: S1 and S2 present. No murmurs, rubs, or gallops. PULMONARY: Chest is clear to auscultation, no wheezing or crackles. ABDOMEN: Soft, nontender, nondistended, normoactive bowel sounds. No palpable o rganomegaly. MUSCULOSKELETAL: No joint swelling or deformity. EXTREMITIES: No cyanosis, clubbing, or pedal edema. NEUROLOGICAL: Gross neurological examination did not reveal any focal deficits. SKIN: No rashes. Assessment and plan -Viral gastroenteritis supportive care with IV fluids and potassium replacement -Hyponatremia secondary to diarrhea hypokalemia secondary to diarrhea and hypomagnesemia secondary to diarrhea again. -Asymptomatic bacteriuria will not require any antibiotics patient does not have any UTI symptoms -Coronary artery disease -COPD without any acute exacerbation -Hypertension -Coronary artery disease with cardiac catheterization in the past patient also has left carotid stent -Peripheral artery disease -Seizure disorder: Presently not on any medications for this -History of alcohol abuse stopped drinking alcohol -Thrombocytopenia secondary to alcohol abuse in the past Generalized weakness may be secondary to diarrhea physical therapy occupational therapy evaluation Nicotine use: Counseling was provided DVT prophylaxis: SCDs and early ambulation patient is thrombocytopenic which is a contraindication for subcutaneous heparin as her platelet count is around 50,000 Past Medical History Past Medical History: Asthma, Coronary Artery Disease (CAD), COPD, CVA/TIA, Eye Disorder, Hypertension, Liver Disease, Myocardial Infarction (MT), Seizure Disorder, Vascular Disorder Additional Past Medical History / Comment(s): Pt recently admitted to [facility] for diarrhea, ETOH abuse. 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 soon Last Myocardial Infarction Date:: aug 2018 History of Any Multi-Drug Resistant Organisms: None Reported Past Surgical History: Cholecystectomy, Heart Catheterization, Orthopedic Surgery Additional Past Surgical History / Comment(s): L caratid stent, bilateral knee surgeries for tendon repair, bartholian cyst removed bilateral wrists, cataracts Past Anesthesia/Blood Transfusion Reactions: Motion Sickness Additional Past Anesthesia/Blood Transfusion Reaction / Comment(s): Pt has received blood without reaction. Past Psychological History: Anxiety, Depression Smoking Status: Current every day smoker Past Alcohol Use History: Abuse, Daily, Heavy Past Drug Use History: Marijuana - Past Family History Mother Family Medical History: Cancer, Congestive Heart Failure (CHF), Coronary Artery Disease (CAD), Hyperlipidemia Additional Family Medical History / Comment(s): Mother at age 85 from lung cancer. Father Family Medical History: Cancer, COPD Additional Family Medical History / Comment(s): Father at age 63 from lung cancer. Brother(s) Additional Family Medical History / Comment(s): Patient has a total of 7 siblin gs. 5 are alive without any major medical problems she is aware of. 2 siblings have one from alcohol abuse and 1. Coronary artery disease. Daughter(s) Family Medical History: No Reported History Additional Family Medical History / Comment(s): Patient has one daughter with no major medical problems. Medications and Allergies Home Medications Medication Instructions Recorded Confirmed Type Aspirin EC [Ecotrin Low Dose] 81 mg PO HS 02/11/19 02/13/24 History Simvastatin [Zocor] 40 mg PO HS 07/03/22 02/13/24 History Albuterol Nebulized [Ventolin 2.5 mg INHALATION RT-QID PRN 05/17/23 02/13/24 History Nebulized] Budesonide/Formoterol Fumarate 2 puff INHALATION RT-BID 07/29/23 02/13/24 History [Symbicort 160-4.5 Mcg Inhaler] Multivitamin [Multivitamins Adult 2 tab PO HS 12/04/23 02/13/24 History Gummies] Isosorbide Mononitrate ER [Imdur] 60 mg PO HS 30 Days #30 tab 12/07/23 02/13/24 Rx Metoprolol Succinate (ER) [Toprol 100 mg PO HS 30 Days #30 tab 12/07/23 02/13/24 Rx XL] Pantoprazole [Protonix] 40 mg PO HS 01/02/24 02/13/24 History Thiamine [Vitamin B-1] 100 mg PO DAILY #30 tablet 01/04/24 02/13/24 Rx Benzonatate [Tessalon Perle] 200 mg PO TID PRN #10 cap 01/07/24 02/13/24 Rx Famotidine [Pepcid] 20 mg PO BID #60 tablet 01/07/24 02/13/24 Rx Ipratropium-Albuterol Nebulize 3 ml INHALATION RT-Q2H PRN each 01/07/24 02/13/24 Rx [Duoneb 0.5 mg-3 mg/3 ml Soln] Ipratropium-Albuterol Nebulize 3 ml INHALATION RT-QID #100 each 01/07/24 02/13/24 Rx [Duoneb 0.5 mg-3 mg/3 ml Soln] Ondansetron Odt [Zofran ODT] 4 mg PO Q8HR PRN #20 tab 01/07/24 02/13/24 Rx guaiFENesin SYRUP 100MG/5ML 200 mg PO TID PRN #120 ml 01/07/24 02/13/24 Rx [Robitussin] Benzocaine/Menthol Lozeng [Cepacol 1 lozenge MUCOUS MEM Q4HR PRN 01/15/24 02/13/24 History lozenge] Ibuprofen [Motrin Ib] 400 mg PO Q8H PRN 01/15/24 02/13/24 History Ibuprofen [Motrin Ib] 600 mg PO BID 01/15/24 02/13/24 History Nicotine 14Mg/24Hr Patch [Habitrol] 1 patch TRANSDERM DAILY patch 01/17/24 02/13/24 Rx Ticagrelor [Brilinta] 90 mg PO BID #60 tab 01/17/24 02/13/24 Rx Brimonidine Tartrate [Alphagan P 1 drop BOTH EYES BID 02/02/24 02/13/24 History 0.2% Ophth Soln] Fluticasone Nasal Gallant [Flonase 2 spray EA NOSTRIL BID 02/02/24 02/13/24 History Nasal Gallant] Allergies Allergy/AdvReac Type Severity Reaction Status Date / Time Kulm And Derivatives Allergy Rash/Hives Verified 02/13/24 09:31 [Kulm] latex Allergy Rash/Hives Verified 02/13/24 09:31 Influenza Virus Vaccines AdvReac Nausea & Verified 02/13/24 09:31 Vomiting morphine AdvReac Nausea & Verified 02/13/24 09:31 Vomiting tomato AdvReac Diarrhea Verified 02/13/24 09:31 Physical Exam Vitals: Vital Signs Temp Pulse Resp BP Pulse Ox 02/13/24 11:14 91 20 109/68 97 02/13/24 09:52 96 18 119/85 99 02/13/24 08:28 104 H 22 106/80 95 02/13/24 07:28 98 F 114 H 20 144/56 96 Intake and Output 02/12/24 02/13/24 02/13/24 22:59 06:59 14:59 Other: Weight 76.204 kg Results CBC & Chem 7: 02/13/24 08:09 02/13/24 08:09 Labs: Abnormal Lab Results - Last 24 Hours (Table) 02/13/24 02/13/24 02/13/24 Range/Units 08:09 08:09 08:09 RDW 16.7 H (11.5-15.5) % Plt Count 50 L D (150-450) k/uL Lymphocytes # 0.6 L (1.0-4.8) k/uL Sodium 133 L (137-145) mmol/L Potassium 2.7 L* (3.5-5.1) mmol/L Chloride 93 L (98-107) mmol/L Glucose 135 H (74-99) mg/dL Magnesium 1.5 L (1.6-2.3) mg/dL Total Bilirubin 2.0 H (0.2-1.3) mg/dL AST 82 H (14-36) U/L ALT 44 H (4-34) U/L Alkaline Phosphatase 177 H (38-126) U/L Lipase 402 H (23-300) U/L Urine Appearance Cloudy H (Clear) Ur Specific Worden 1.036 H (1.001-1.035) Urine Protein 1+ H (Negative) Urine Ketones 3+ H (Negative) Urine Blood Small H (Negative) Ur Leukocyte Esterase Trace H (Negative) Urine RBC 6 H (0-5) /hpf Urine Bacteria Rare H (None) /hpf
[2024-02-13] MEDS: MAGNESIUM SULFATE-D5W PMX 1 GM in DEXTROSE/WATER 1 100ML.BAG IVPB SCH (12:25)
[2024-02-13] MEDS: POTASSIUM CHLORIDE ER 20 MEQ TAB.ER PO STA (12:27)
[2024-02-13] MEDS: 0.9% NACL WITH KCL 20 MEQ/L 1,000 ML IV SCH (13:29)
[2024-02-13] MEDS: IPRATROPIUM-ALBUTEROL 3 ML NEB INHALATION PRN (15:00)
[2024-02-13] MEDS: NICOTINE 21MG/24HR PATCH TRANSDERM SCH (16:02)
[2024-02-13] MEDS: ACETAMINOPHEN TAB 325 MG TAB PO PRN (16:02)
[2024-02-13] MEDS: SYMBICORT 160-4.5 MCG INHALER INHALATION SCH (19:41)
[2024-02-13] MEDS: TICAGRELOR 90 MG TAB PO SCH (20:53)
[2024-02-13] MEDS: METOPROLOL SUCCINATE (ER) 100 MG TAB.ER.24H PO SCH (20:53)
[2024-02-13] MEDS: ISOSORBIDE MONONITRATE ER 60 MG TAB.ER.24H PO SCH (20:53)
[2024-02-13] MEDS: BRIMONIDINE TARTRATE 0.2% DROPS 5 ML BTL BOTH EYES SCH (20:53)
[2024-02-13] MEDS: ASPIRIN 81 MG PO SCH (20:53)
[2024-02-13] MEDS: FLUTICASONE 50MCG/SPRAY NASAL 16GM EA NOSTRIL SCH (20:53)
[2024-02-13] MEDS: ATORVASTATIN 20 MG TAB PO SCH (20:53)
[2024-02-13] MEDS: FAMOTIDINE 20 MG TAB PO SCH (20:53)
[2024-02-13] MEDS: LORazepam 0.5 MG TAB PO SCH (22:45)
[2024-02-13] MEDS: BENZOCAINE/MENTHOL LOZENG 1 EACH LOZENGE MUCOUS MEM PRN (22:45)
[2024-02-14 03:11] VITALS: RESP 16
[2024-02-14 09:25] LABS: ALT 33 U/L (8-44); AST 64 U/L (13-35); Albumin 3.5 g/dL (3.8-4.9); Albumin/Globulin Ratio 1.84 Ratio (1.60-3.17); Alkaline Phosphatase 126 U/L (41-126); Calcium 7.8 mg/dL (8.7-10.3); Carbon Dioxide 24.3 mmol/L (21.6-31.8); Chloride 106 mmol/L (96-109); Globulin 1.9 g/dL (1.6-3.3); Glucose 103 mg/dL (70-110); Magnesium 2.3 mg/dL (1.5-2.4); Sodium 140 mmol/L (135-145); Total Bilirubin 0.9 mg/dL (0.3-1.2); Total Protein 5.4 g/dL (6.2-8.2)
[2024-02-14] MEDS ORDERED: Potassium Replacement Protocol 1 EACH MISC MISCELLANE PRN (09:48)
[2024-02-14] MEDS: PANTOPRAZOLE 40 MG/10 ML VIAL IV SCH (10:03)
[2024-02-14 10:04] LABS: Basophils # (A) 0.04 X 10*3/uL (0.00-0.10); Basophils % (A) 1.1 %; Eosinophils # (A) 0.08 X 10*3/uL (0.04-0.35); Eosinophils % (A) 2.2 %; HCT 30.2 % (37.2-46.3); HGB 9.7 g/dL (12.0-15.0); Immature Platelet Fraction 12.2 % (1.1-6.1); Lymphocytes # (A) 0.94 X 10*3/uL (0.90-5.00); MCH 31.1 pg (27.0-32.0); MCHC 32.1 g/dL (32.0-37.0); MCV 96.8 FL (80.0-97.0); Mean Platelet Volume 12.8 FL (9.5-12.2); Monocytes # (A) 0.19 X 10*3/uL (0.20-1.00); Monocytes % (A) 5.2 %; NRBC Per 100 WBC 0 X 10*3/uL (0.00-0.01); Neutrophils # (A) 2.36 X 10*3/uL (1.80-7.70); Neutrophils % (A) 65.2 %; Platelet Count 28 X 10*3/uL (140-440); RBC 3.12 X 10*6/uL (4.10-5.20); RDW 16.9 % (11.5-14.5); WBC 3.62 X 10*3/uL (4.50-10.00)
[2024-02-14] MEDS: POTASSIUM CHLORIDE ER 20 MEQ TAB.ER PO SCH (10:24)
[2024-02-14] MEDS: ARTIFICIAL TEARS-HYPROMELLOSE DROPS 15 ML BTL BOTH EYES PRN (12:59)
--- NOTE | 2024-02-14 13:56 | XR ---
EXAMINATION TYPE: XR foot limited RT DATE OF EXAM: 02/14/2024 CLINICAL HISTORY: pain TECHNIQUE: Frontal, lateral images of the right foot are obtained. COMPARISON: None. FINDINGS: Virtually nondisplaced oblique fracture distal shaft extending into the neck of the fifth m etatarsal. The joint spaces appear within normal limits. The overlying soft tissue appears unremark able. IMPRESSION: Fracture as above.
[2024-02-14 15:02] VITALS: BP 119/82; PULSE 84; TEMP 98.7
== END 2024-02-14 17:07 | disposition home or self-care (01) ==
LOC: EC 07:23 → 6NMEDSUR 10:53
PROVIDERS: ADMIT Internal Medicine; ATTEND Internal Medicine
DX: A08.4 Viral intestinal infection, unspecified (principal); E87.1 Hypo-osmolality and hyponatremia; E87.6 Hypokalemia; E83.42 Hypomagnesemia; R53.1 Weakness; R82.71 Bacteriuria; D69.59 Other secondary thrombocytopenia; G40.909 Epilepsy, unspecified, not intractable, without status epilepticus; I25.10 Atherosclerotic heart disease of native coronary artery without angina pectoris; J44.9 Chronic obstructive pulmonary disease, unspecified; I10 Essential (primary) hypertension; F32.A Depression, unspecified; F41.9 Anxiety disorder, unspecified; I73.9 Peripheral vascular disease, unspecified; I25.2 Old myocardial infarction; I69.351 Hemiplegia and hemiparesis following cerebral infarction affecting right dominant side; F10.21 Alcohol dependence, in remission; F17.200 Nicotine dependence, unspecified, uncomplicated; Z79.82 Long term (current) use of aspirin; Z79.899 Other long term (current) drug therapy; Z79.51 Long term (current) use of inhaled steroids; Z88.5 Allergy status to narcotic agent; Z91.040 Latex allergy status; Z11.52 Encounter for screening for COVID-19
CPT/HCPCS: 96375 ×2; 96361; 96365; 96366; 96367; 96372; 99285; 36415; 94640 ×4; 93005; 97162; 80053 ×2; 82150; 82550; 83605; 83690; 83735 ×2; 84484; 85025 ×2; 85610; 85730; 81001; 87636; 73620; 71045; 74018; 74177; G0378 ×2; G0480; S4990 ×2; J0500; J3480; J2405; J3475; C9113; Q9967; 80320

== ENCOUNTER 2024-02-19 18:31 | Observation (INO) | payer OTHER ==
[2024-02-19] MEDS: SODIUM CHLORIDE 0.9% 500 ML 500 ML IV STA (18:40)
--- NOTE | 2024-02-19 18:44 | ED ---
Weakness HPI - General Chief complaint: Weakness Stated complaint: Hypotension Time Seen by Provider: 02/19/24 18:41 Source: patient Mode of arrival: EMS Limitations: altered mental status - History of Present Illness Initial comments: This is a 64-year-old female to ER for evaluation of nausea vomiting weakness dehydration she believes her sodium is low potassium is low magnesium is low aspirin is a history of similar symptoms in the past. Patient does have history of daily alcohol drinking. Patient states she has not been eating or drinking well not taking care of herself. She did have a syncopal versus a near syncopal event prior to arrival MD Complaint: generalized weakness, lack of energy, difficulty walking -: days(s) Location: generalized Severity: severe Severity scale (1-10): 9 Quality: aching Consistency: constant Improves with: none Context: recent illness, history of similar Associated Symptoms: denies other symptoms - Related Data Home Medications Medication Instructions Recorded Confirmed Aspirin EC [Ecotrin Low Dose] 81 mg PO HS 02/11/19 02/26/24 Simvastatin [Zocor] 40 mg PO HS 07/03/22 02/26/24 Albuterol Nebulized [Ventolin 2.5 mg INHALATION RT-QID PRN 05/17/23 02/26/24 Nebulized] Budesonide/Formoterol Fumarate 2 puff INHALATION RT-HS 07/29/23 02/26/24 [Symbicort 160-4.5 Mcg Inhaler] Multivitamin [Multivitamins Adult 2 tab PO HS 12/04/23 02/26/24 Gummies] Pantoprazole [Protonix] 40 mg PO HS 01/02/24 02/26/24 Ibuprofen [Motrin Ib] 400 mg PO Q8H PRN 01/15/24 02/26/24 Ibuprofen [Motrin Ib] 600 mg PO 01/15/24 02/26/24 Brimonidine Tartrate [Alphagan P 1 drop BOTH EYES 02/02/24 02/26/24 0.2% Ophth Soln] Fluticasone Nasal [place] [Flonase 2 spray EA NOSTRIL HS 02/02/24 02/26/24 Nasal [place]] Famotidine [Pepcid] 20 mg PO HS 02/19/24 02/26/24 Nicotine 14Mg/24Hr Patch [Habitrol] 1 patch TRANSDERM HS 02/19/24 02/26/24 Thiamine [Vitamin B-1] 100 mg PO HS 02/19/24 02/26/24 Ticagrelor [Brilinta] 90 mg PO HS 02/26/24 02/26/24 Previous Rx's Medication Instructions Recorded Isosorbide Mononitrate ER [Imdur] 60 mg PO HS 30 Days #30 tab 12/07/23 Metoprolol Succinate (ER) [Toprol 100 mg PO HS 30 Days #30 tab 12/07/23 XL] Ipratropium-Albuterol Nebulize 3 ml INHALATION RT-Q2H PRN each 01/07/24 [Duoneb 0.5 mg-3 mg/3 ml Soln] Ipratropium-Albuterol Nebulize 3 ml INHALATION RT-QID #100 each 01/07/24 [Duoneb 0.5 mg-3 mg/3 ml Soln] Ondansetron Odt [Zofran ODT] 4 mg PO Q8HR PRN #20 tab 01/07/24 Artificial Tears-Hypromellose 1 drops BOTH EYES TID PRN #5 ml 02/14/24 [Artificial Tear Drops] Allergies Allergy/AdvReac Type Severity Reaction Status Date / Time [place] And Derivatives Allergy Rash/Hives Verified 02/26/24 14:22 [[place]] latex Allergy Rash/Hives Verified 02/26/24 14:22 Influenza Virus Vaccines AdvReac Nausea & Verified 02/26/24 14:22 Vomiting morphine AdvReac Nausea & Verified 02/26/24 14:22 Vomiting tomato AdvReac Diarrhea Verified 02/26/24 14:22 Review of Systems ROS Statement: Those systems with pertinent positive or pertinent negative responses have been documented in the HPI. ROS Other: All systems not noted in ROS Statement are negative. Past Medical History Past Medical History: Asthma, Coronary Artery Disease (CAD), COPD, CVA/TIA, Eye Disorder, Hypertension, Liver Disease, Myocardial Infarction (NE), Seizure Disorder, Vascular Disorder Additional Past Medical History / Comment(s): Pt recently admitted to [facility] for diarrhea, ETOH abuse. 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 soon Last Myocardial Infarction Date:: aug 2018 History of Any Multi-Drug Resistant Organisms: None Reported Past Surgical History: Cholecystectomy, Heart Catheterization, Orthopedic Surgery Additional Past Surgical History / Comment(s): L caratid stent, bilateral knee surgeries for tendon repair, bartholian cyst removed bilateral wrists, cataracts Past Anesthesia/Blood Transfusion Reactions: Motion Sickness Additional Past Anesthesia/Blood Transfusion Reaction / Comment(s): Pt has received blood without reaction. Past Psychological History: Anxiety, Depression Smoking Status: Current every day smoker Past Alcohol Use History: Abuse, Daily, Heavy Past Drug Use History: Marijuana - Past Family History Mother Family Medical History: Cancer, Congestive Heart Failure (CHF), Coronary Artery Disease (CAD), Hyperlipidemia Additional Family Medical History / Comment(s): Mother at age 85 from lung cancer. Father Family Medical History: Cancer, COPD Additional Family Medical History / Comment(s): Father at age 63 from lung cancer. Brother(s) Additional Family Medical History / Comment(s): Patient has a total of 7 siblings. 5 are alive without any major medical problems she is aware of. 2 siblings have one from alcohol abuse and 1. Coronary artery disease. Daughter(s) Family Medical History: No Reported History Additional Family Medical History / Comment(s): Patient has one daughter with no major medical problems. General Exam Limitations: altered mental status General appearance: alert, in no apparent distress Head exam: Present: atraumatic, normocephalic, normal inspection Eye exam: Present: normal appearance, PERRL, EOMI. Absent: scleral icterus, conjunctival injection, periorbital swelling ENT exam: Present: normal exam, mucous membranes moist Neck exam: Present: normal inspection. Absent: tenderness, meningismus, lympha denopathy Respiratory exam: Present: normal lung sounds bilaterally. Absent: respiratory distress, wheezes, rales, rhonchi, stridor Cardiovascular Exam: Present: regular rate, normal rhythm, normal heart sounds. Absent: systolic murmur, diastolic murmur, rubs, gallop, clicks GI/Abdominal exam: Present: soft, normal bowel sounds. Absent: distended, tenderness, guarding, rebound, rigid Extremities exam: Present: normal inspection, full ROM, normal capillary refill. Absent: tenderness, pedal edema, joint swelling, calf tenderness Back exam: Present: normal inspection Neurological exam: Present: alert, oriented X3, CN II-XII intact Psychiatric exam: Present: normal affect, normal mood Skin exam: Present: warm, dry, intact, normal color. Absent: rash Course Vital Signs 02/19/24 02/19/24 02/19/24 18:33 18:56 19:15 Temperature 97.8 F Pulse Rate 97 93 96 Respiratory 18 18 16 Rate Blood Pressure 73/41 93/55 101/78 O2 Sat by Pulse 95 97 99 Oximetry 02/19/24 02/19/24 02/19/24 20:00 21:00 22:00 Temperature Pulse Rate 98 97 98 Respiratory 18 18 15 Rate Blood Pressure 93/75 95/49 106/75 O2 Sat by Pulse 96 96 94 L Oximetry 02/19/24 02/20/24 23:00 00:15 Temperature Pulse Rate 98 106 H Respiratory 18 16 Rate Blood Pressure 105/83 130/85 O2 Sat by Pulse 95 98 Oximetry - Reevaluation(s) Reevaluation #1: 02/19/24 22:47 Medical records reviewed Reevaluation #2: 02/19/24 22:47 Patient is feeling better blood pressure is improving Reevaluation #3: 02/19/24 22:47 Patient informed of results questions answered Reevaluation #4: Was pt. sent in by a medical professional or institution (, PA, SPLITTER OPERATOR, urgent care, hospital, or [place] [facility] care facility...) When possible be specific @ -no Did you speak to anyone other than the patient for history (EMS, parent, family, police, friend...)? What history was obtained from this source @ -no Did you review nursing and triage notes (agree or disagree)? Why? @ -agree Are old charts reviewed (outside hosp., previous admission, EMS record, old EKG, old radiological studies, urgent care reports/EKG's, [place] health care facility records)? Report findings @ -yes Differential Diagnosis (chest pain, altered mental status, abdominal pain women, abdominal pain men, vaginal bleeding, weakness, fever, dyspnea, syncope, hea dache, dizziness, GI bleed, back pain, seizure, CVA, palpatations, mental health, musculoskeletal)? @ -prior EKG interpreted by me (3pts min.). @ -yes X-rays interpreted by me (1pt min.). @ -Yes negative for acute disease CT interpreted by me (1pt min.). @ -no U/S interpreted by me (1pt. min.). @ -no What testing was considered but not performed or refused? (CT, X-rays, U/S, labs)? Why? @ -none What meds were considered but not given or refused? Why? @ -none Did you discuss the management of the patient with other professionals (professionals i.e. , PA, SPLITTER OPERATOR, lab, RT, psych nurse, social media intern, receptionist/telephone operator, teacher, field artillery officer, top case assembler)? Give summary @ -no Was smoking cessation discussed for >3mins.? @ -no Was critical care preformed (if so, how long)? @ -no Were there social determinants of health that impacted care today? How? (Homelessness, low income, unemployed, alcoholism, drug addiction, transportation, low edu. Level, literacy, decrease access to med. care, nursing home, rehab)? @ -none Was there de-escalation of care discussed even if they declined (Discuss DNR or withdrawal of care, Hospice)? DNR status @ -no What co-morbidities impacted this encounter? (DM, HTN, Smoking, COPD, CAD, Cancer, CVA, ARF, Chemo, Hep., AIDS, mental health diagnosis, sleep apnea, mo rbid obesity)? @ -none Was patient admitted / discharged? Hospital course, mention meds given and r oute, prescriptions, significant lab abnormalities, going to OR and other pertinent info. @ - 64 female to ER with persistent weakness severe dehydration and low blood pressure. Patient be admitted for continued supportive care monitoring for alcohol withdrawal and dehydration Admitted Undiagnosed new problem with uncertain prognosis? @ -no Drug Therapy requiring intensive monitoring for toxicity (Heparin, Nitro, Insulin, Cardizem)? @ -no Were any procedures done? @ -no Diagnosis/symptom? @ -Alcohol withdrawal Acute, or Chronic, or Acute on Chronic? @ -Acute Uncomplicated (without systemic symptoms) or Complicated (systemic symptoms)? @ -Complicated Side effects of treatment? @ -no Exacerbation, Progression, or Severe Exacerbation? @ -exacerbation Poses a threat to life or bodily function? How? (Chest pain, [place], NE, pneumonia, PE, COPD, DKA, ARF, appy, cholecystitis, CVA, Diverticulitis, Homicidal, Suicidal, threat to staff... and all critical care pts) @ -yes with extremes of age Reevaluation #5: Differential Weakness: Hypoglycemia, shock, sepsis, hyponatremia, anemia, infection, NE, ETOH, adverse medicine reaction, overdose, stroke, this is not meant to be an all-inclusive list. Differential Syncope: Valvular disease, hypertrophic cardiomyopathy, pulmonary embolism, tamponade, tachycardia, bradycardia, NE, hypovolemia, hemorrhage, dissection, anemia, intracranial hemorrhage, seizure, hypoglycemia, carbon monoxide poisoning, this is not meant to be an all-inclusive list. - Consultations Consultation #1: Spoke with [facility] who agrees to admit this patient EKG Findings - EKG Comments: EKG Findings:: EKG is sinus 92 TN 137 QRS 94 QTc 448 - EKG Results: EKG: interpreted by [facility] Medical Decision Making - Medical Decision Making 64 female to ER with persistent weakness severe dehydration and low blood pressure. Patient be admitted for continued supportive care monitoring for alcohol withdrawal and dehydration - Lab Data Result diagrams: 02/21/24 06:38 02/21/24 06:38 Lab Results 02/19/24 02/19/24 02/19/24 Range/Units 18:54 18:54 18:54 WBC 3.9 (3.8-10.6) k/uL RBC 4.26 (3.80-5.40) m/uL Hgb 13.4 (11.4-16.0) gm/dL Hct 41.5 (34.0-46.0) % MCV 97.4 (80.0-100.0) fL MCH 31.5 (25.0-35.0) pg MCHC 32.3 (31.0-37.0) g/dL RDW 17.7 H (11.5-15.5) % Plt Count 116 L D (150-450) k/uL MPV 9.1 Immature Gran % (Auto) % Absolute Nucleated RBC % Neutrophils % % Neutrophils % (Manual) 61 % Band Neuts % (Manual) 1 % Lymphocytes % % Lymphocytes % (Manual) 26 % Monocytes % % Monocytes % (Manual) 11 % Eosinophils % % Eosinophils % (Manual) 2 % Basophils % % Myelocytes % 1 % Immature Gran # (0.00-0.04) X 10*3/uL Neutrophils # (1.80-7.70) X 10*3/uL Neutrophils # (Manual) 2.40 (1.3-7.7) k/uL Lymphocytes # (0.90-5.00) X 10*3/uL Lymphocytes # (Manual) 1.01 (1.0-4.8) k/uL Monocytes # (0.20-1.00) X 10*3/uL Monocytes # (Manual) 0.43 (0-1.0) k/uL Eosinophils # (0.04-0.35) X 10*3/uL Eosinophils # (Manual) 0.08 (0-0.7) k/uL Basophils # (0.00-0.10) X 10*3/uL Myelocytes # (Manual) 0.04 H (0) k/uL Nucleated RBCs 0 (0-0) /100 WBC NRBC/100 WBC Diff (0.00-0.01) X 10*3/uL Manual Slide Review Performed Hypochromasia Anisocytosis Slight Anisocytosis (manual) Present Macrocytosis Slight PT 10.4 (10.0-12.5) sec INR 0.9 (<1.2) APTT 25.2 (22.0-30.0) sec Sodium 134 L (137-145) mmol/L Potassium 3.5 (3.5-5.1) mmol/L Chloride 98 (98-107) mmol/L Carbon Dioxide 21 L (22-30) mmol/L Anion Gap 15 mmol/L BUN 9 (7-17) mg/dL Creatinine 0.58 (0.52-1.04) mg/dL Est GFR (CKD-EPI) (>=60) Est GFR (CKD-EPI)AfAm >90 (>60 ml/min/1.73 sqM) Est GFR (CKD-EPI)NonAf >90 (>60 ml/min/1.73 sqM) BUN/Creatinine Ratio (12.00-20.00) Ratio Glucose 117 H (74-99) mg/dL Calcium 8.3 L (8.4-10.2) mg/dL Phosphorus 4.3 (2.5-4.5) mg/dL Magnesium 1.5 L (1.6-2.3) mg/dL Total Bilirubin 0.5 (0.2-1.3) mg/dL AST 160 H (14-36) U/L ALT 110 H (4-34) U/L Alkaline Phosphatase 134 H (38-126) U/L Troponin I (0.000-0.034) ng/mL NT-Pro-B Natriuret Pep 396 pg/mL Total Protein 6.0 L (6.3-8.2) g/dL Albumin 3.5 (3.5-5.0) g/dL Globulin (1.6-3.3) g/dL Albumin/Globulin Ratio (1.60-3.17) Ratio Lipase (23-300) U/L 02/19/24 02/20/24 02/20/24 Range/Units 18:54 07:07 07:07 WBC 2.3 L (3.8-10.6) k/uL RBC 3.49 L (3.80-5.40) m/uL Hgb 11.4 (11.4-16.0) gm/dL Hct 35.1 (34.0-46.0) % MCV 100.4 H (80.0-100.0) fL MCH 32.6 (25.0-35.0) pg MCHC 32.5 (31.0-37.0) g/dL RDW 17.6 H (11.5-15.5) % Plt Count 78 L (150-450) k/uL MPV 9.0 Immature Gran % (Auto) % Absolute Nucleated RBC % Neutrophils % % Neutrophils % (Manual) 47 % Band Neuts % (Manual) 1 % Lymphocytes % % Lymphocytes % (Manual) 39 % Monocytes % % Monocytes % (Manual) 11 % Eosinophils % % Eosinophils % (Manual) 2 % Basophils % % Myelocytes % % Immature Gran # (0.00-0.04) X 10*3/uL Neutrophils # (1.80-7.70) X 10*3/uL Neutrophils # (Manual) 1.10 L (1.3-7.7) k/uL Lymphocytes # (0.90-5.00) X 10*3/uL Lymphocytes # (Manual) 0.90 L (1.0-4.8) k/uL Monocytes # (0.20-1.00) X 10*3/uL Monocytes # (Manual) 0.25 (0-1.0) k/uL Eosinophils # (0.04-0.35) X 10*3/uL Eosinophils # (Manual) 0.05 (0-0.7) k/uL Basophils # (0.00-0.10) X 10*3/uL Myelocytes # (Manual) (0) k/uL Nucleated RBCs 0 (0-0) /100 WBC NRBC/100 WBC Diff (0.00-0.01) X 10*3/uL Manual Slide Review Performed Hypochromasia Slight Anisocytosis Slight Anisocytosis (manual) Macrocytosis Slight PT (10.0-12.5) sec INR (<1.2) APTT (22.0-30.0) sec Sodium 135 L (137-145) mmol/L Potassium 2.9 L (3.5-5.1) mmol/L Chloride 106 (98-107) mmol/L Carbon Dioxide 20 L (22-30) mmol/L Anion Gap 9 mmol/L BUN 7 (7-17) mg/dL Creatinine 0.47 L (0.52-1.04) mg/dL Est GFR (CKD-EPI) (>=60) Est GFR (CKD-EPI)AfAm >90 (>60 ml/min/1.73 sqM) Est GFR (CKD-EPI)NonAf >90 (>60 ml/min/1.73 sqM) BUN/Creatinine Ratio (12.00-20.00) Ratio Glucose 89 (74-99) mg/dL Calcium 7.0 L (8.4-10.2) mg/dL Phosphorus 3.2 (2.5-4.5) mg/dL Magnesium 1.4 L (1.6-2.3) mg/dL Total Bilirubin 0.3 (0.2-1.3) mg/dL AST 123 H (14-36) U/L ALT 95 H (4-34) U/L Alkaline Phosphatase 143 H (38-126) U/L Troponin I <0.012 (0.000-0.034) ng/mL NT-Pro-B Natriuret Pep pg/mL Total Protein 5.3 L (6.3-8.2) g/dL Albumin 2.8 L (3.5-5.0) g/dL Globulin (1.6-3.3) g/dL Albumin/Globulin Ratio (1.60-3.17) Ratio Lipase 45 (23-300) U/L 02/21/24 02/21/24 Range/Units 06:38 06:38 WBC 3.27 L (3.8-10.6) k/uL RBC 3.07 L (3.80-5.40) m/uL Hgb 9.6 L (11.4-16.0) gm/dL Hct 30.9 L (34.0-46.0) % MCV 100.7 H (80.0-100.0) fL MCH 31.3 (25.0-35.0) pg MCHC 31.1 L (31.0-37.0) g/dL RDW 18.1 H (11.5-15.5) % Plt Count 86 L (150-450) k/uL MPV 11.3 Immature Gran % (Auto) 0.30 % Absolute Nucleated RBC 0 % Neutrophils % 49.9 % Neutrophils % (Manual) % Band Neuts % (Manual) % Lymphocytes % 26.3 % Lymphocytes % (Manual) % Monocytes % 20.8 % Monocytes % (Manual) % Eosinophils % 1.5 % Eosinophils % (Manual) % Basophils % 1.2 % Myelocytes % % Immature Gran # 0.01 (0.00-0.04) X 10*3/uL Neutrophils # 1.63 L (1.80-7.70) X 10*3/uL Neutrophils # (Manual) (1.3-7.7) k/uL Lymphocytes # 0.86 L (0.90-5.00) X 10*3/uL Lymphocytes # (Manual) (1.0-4.8) k/uL Monocytes # 0.68 (0.20-1.00) X 10*3/uL Monocytes # (Manual) (0-1.0) k/uL Eosinophils # 0.05 (0.04-0.35) X 10*3/uL Eosinophils # (Manual) (0-0.7) k/uL Basophils # 0.04 (0.00-0.10) X 10*3/uL Myelocytes # (Manual) (0) k/uL Nucleated RBCs (0-0) /100 WBC NRBC/100 WBC Diff 0 (0.00-0.01) X 10*3/uL Manual Slide Review Hypochromasia Anisocytosis Anisocytosis (manual) Macrocytosis PT (10.0-12.5) sec INR (<1.2) APTT (22.0-30.0) sec Sodium 137 (137-145) mmol/L Potassium 4.9 (3.5-5.1) mmol/L Chloride 106 (98-107) mmol/L Carbon Dioxide 19.8 L (22-30) mmol/L Anion Gap 11.20 mmol/L BUN 6.3 L (7-17) mg/dL Creatinine 0.5 L (0.52-1.04) mg/dL Est GFR (CKD-EPI) 105 (>=60) Est GFR (CKD-EPI)AfAm (>60 ml/min/1.73 sqM) Est GFR (CKD-EPI)NonAf (>60 ml/min/1.73 sqM) BUN/Creatinine Ratio 12.60 (12.00-20.00) Ratio Glucose 95 (74-99) mg/dL Calcium 7.4 L (8.4-10.2) mg/dL Phosphorus (2.5-4.5) mg/dL Magnesium 1.8 (1.6-2.3) mg/dL Total Bilirubin <0.2 L (0.2-1.3) mg/dL AST 52 H (14-36) U/L ALT 61 H (4-34) U/L Alkaline Phosphatase 125 (38-126) U/L Troponin I (0.000-0.034) ng/mL NT-Pro-B Natriuret Pep pg/mL Total Protein 4.7 L (6.3-8.2) g/dL Albumin 3.0 L (3.5-5.0) g/dL Globulin 1.7 (1.6-3.3) g/dL Albumin/Globulin Ratio 1.76 (1.60-3.17) Ratio Lipase (23-300) U/L - EKG Data -: EKG Interpreted by Me - Radiology Data Radiology results: report reviewed (Chest x-ray is negative for acute disease), image reviewed Disposition Clinical Impression: Alcohol intoxication, Vomiting, Intractable nausea and vomiting, Altered mental status, Dehydration, Weakness Disposition: ADMITTED IP TO THIS [facility] Condition: Fair Is patient prescribed a controlled substance at d/c from ED?: No Time of Disposition: 22:50
[2024-02-19] MEDS: SODIUM CHLORIDE 0.9% 1,000 ML IV STA (19:04)
[2024-02-19 19:15] LABS: INR 0.9 (<1.2); Partial Thromboplastin Time 25.2 sec (22.0-30.0); Prothrombin Time 10.4 sec (10.0-12.5)
[2024-02-19 19:29] LABS: ALT 110 U/L (4-34); African American GFR (CKD) >90 (>60 ml/min/1.73 sqM); Albumin 3.5 g/dL (3.5-5.0); Anion Gap 15 mmol/L; Blood Urea Nitrogen 9 mg/dL (7-17); Calcium 8.3 mg/dL (8.4-10.2); Carbon Dioxide 21 mmol/L (22-30); Chloride 98 mmol/L (98-107); Glucose 117 mg/dL (74-99); Non-African American GFR(CKD) >90 (>60 ml/min/1.73 sqM); Sodium 134 mmol/L (137-145); Total Bilirubin 0.5 mg/dL (0.2-1.3)
[2024-02-19 19:38] LABS: AST 160 U/L (14-36); Alkaline Phosphatase 134 U/L (38-126); NT-Pro-B-Type Natriuretic Pept 396 pg/mL; Potassium 3.5 mmol/L (3.5-5.1)
[2024-02-19 19:39] LABS: Magnesium 1.5 mg/dL (1.6-2.3); Phosphorus 4.3 mg/dL (2.5-4.5)
[2024-02-19 19:43] LABS: Anisocytosis Slight; HCT 41.5 % (34.0-46.0); HGB 13.4 gm/dL (11.4-16.0); MCH 31.5 pg (25.0-35.0); MCHC 32.3 g/dL (31.0-37.0); MCV 97.4 fL (80.0-100.0); Macrocytosis Slight; Mean Platelet Volume 9.1; RBC 4.26 m/uL (3.80-5.40); RDW 17.7 % (11.5-15.5); WBC 3.9 k/uL (3.8-10.6)
[2024-02-19 19:49] LABS: Platelet Count 116 k/uL (150-450)
[2024-02-19 20:21] LABS: Band Neutrophils % 1 %; Nucleated Red Blood Cells 0 /100 WBC (0-0)
[2024-02-19 20:25] LABS: Anisocytosis (M) Present; Eosinophils # (M) 0.08 k/uL (0-0.7); Lymphocytes # (M) 1.01 k/uL (1.0-4.8); Monocytes # (M) 0.43 k/uL (0-1.0); Myelocytes # (M) 0.04 k/uL (0); Myelocytes % 1 %; Neutrophils % (M) 61 %; Total Cells Counted 200
[2024-02-19] MEDS ORDERED: LORazepam 2 MG/ML INJ IV PRN ×3 (22:44)
[2024-02-19] MEDS ORDERED: LORazepam 1 MG TAB PO PRN ×3 (22:44)
[2024-02-19] MEDS ORDERED: NALOXONE 0.4 MG/ML 1 ML VIAL IV PRN (22:44)
--- NOTE | 2024-02-19 23:26 | XR ---
EXAM: XR chest 1V portable CLINICAL INDICATION:Female, 64 years old with history of weak; [facility] COMPARISON: 02/13/2024 TECHNIQUE: Chest single view. FINDINGS: Lines/tubes/devices: EKG leads overlie the chest. No indwelling lines are seen. Cardiomediastinum: Cardiac silhouette appears upper normal in size. Unremarkable mediastinal silhouette. Atherosclerotic calcifications of the aorta. Vasculature: No increased pulmonary vasculature. Lungs/pleura: No consolidation, sizeable effusion, or visible pneumothorax. Mildly prominent interstitial lung yury ings, may represent chronic changes, with edema or pneumonitis possible in the proper setting. Small lung nodules cannot be excluded. Bones/soft tissues: Bony thorax appears grossly intact as seen. Mild degenerative changes. Regional soft tissues appear u nremarkable. IMPRESSION: Mildly prominent interstitial lung markings, may represent chronic changes, with edema or pneumonitis possible in the proper setting.
[2024-02-20] MEDS: SODIUM CHLORIDE 0.9% 1,000 ML IV SCH (00:20)
[2024-02-20] MEDS: THIAMINE 100 MG/ML 2 ML VIAL IM STA (01:02)
[2024-02-20] MEDS: LORazepam 0.5 MG TAB PO PRN (02:40)
[2024-02-20 07:58] LABS: ALT 95 U/L (4-34); AST 123 U/L (14-36); African American GFR (CKD) >90 (>60 ml/min/1.73 sqM); Albumin 2.8 g/dL (3.5-5.0); Alkaline Phosphatase 143 U/L (38-126); Anion Gap 9 mmol/L; Blood Urea Nitrogen 7 mg/dL (7-17); Carbon Dioxide 20 mmol/L (22-30); Chloride 106 mmol/L (98-107); Glucose 89 mg/dL (74-99); Lipase 45 U/L (23-300); Magnesium 1.4 mg/dL (1.6-2.3); Non-African American GFR(CKD) >90 (>60 ml/min/1.73 sqM); Phosphorus 3.2 mg/dL (2.5-4.5); Potassium 2.9 mmol/L (3.5-5.1); Sodium 135 mmol/L (137-145); Total Bilirubin 0.3 mg/dL (0.2-1.3); Total Protein 5.3 g/dL (6.3-8.2)
[2024-02-20 08:09] LABS: Anisocytosis Slight; HCT 35.1 % (34.0-46.0); HGB 11.4 gm/dL (11.4-16.0); Hypochromasia Slight; MCH 32.6 pg (25.0-35.0); MCHC 32.5 g/dL (31.0-37.0); MCV 100.4 fL (80.0-100.0); Macrocytosis Slight; RBC 3.49 m/uL (3.80-5.40); RDW 17.6 % (11.5-15.5); WBC 2.3 k/uL (3.8-10.6)
[2024-02-20] MEDS ORDERED: Magnesium Replacement Protocol 1 EACH MISC MISCELLANE PRN (09:01)
[2024-02-20] MEDS ORDERED: Potassium Replacement Protocol 1 EACH MISC MISCELLANE PRN (09:01)
[2024-02-20] MEDS ORDERED: guaiFENesin SYRUP 100MG/5ML 200 MG/10 ML CUP PO PRN (09:02)
[2024-02-20] MEDS ORDERED: BENZONATATE 100 MG CAP PO PRN (09:02)
[2024-02-20] MEDS ORDERED: ALBUTEROL NEBULIZED 2.5 MG/3 ML INHALATION PRN (09:02)
[2024-02-20] MEDS ORDERED: ARTIFICIAL TEARS-HYPROMELLOSE DROPS 15 ML BTL BOTH EYES PRN (09:02)
[2024-02-20] MEDS ORDERED: IPRATROPIUM-ALBUTEROL 3 ML NEB INHALATION PRN (09:02)
[2024-02-20] MEDS ORDERED: ONDANSETRON ODT 4 MG TAB PO PRN (09:02)
[2024-02-20] MEDS: ONDANSETRON 4 MG/2 ML VIAL IVP PRN (09:11)
[2024-02-20] MEDS: PANTOPRAZOLE 40 MG/10 ML VIAL IV SCH (09:11)
[2024-02-20] MEDS: THIAMINE 100 MG TAB PO SCH ×2 (09:12→20:56)
[2024-02-20 09:22] LABS: Band Neutrophils % 1 %; Eosinophils # (M) 0.05 k/uL (0-0.7); Monocytes # (M) 0.25 k/uL (0-1.0); Neutrophils % (M) 47 %; Nucleated Red Blood Cells 0 /100 WBC (0-0); Total Cells Counted 100
[2024-02-20 09:25] LABS: Platelet Count 78 k/uL (150-450)
[2024-02-20] MEDS: MAGNESIUM SULFATE-D5W PMX 1 GM in DEXTROSE/WATER 1 100ML.BAG IVPB SCH (09:55)
[2024-02-20] MEDS: IBUPROFEN 400 MG TAB PO PRN (10:01)
[2024-02-20] MEDS: TICAGRELOR 90 MG TAB PO SCH (11:14)
[2024-02-20] MEDS: POTASSIUM CHLORIDE ER 20 MEQ TAB.ER PO SCH ×2 (11:14→20:56)
[2024-02-20] MEDS: NICOTINE 14MG/24HR PATCH TRANSDERM SCH (11:15)
[2024-02-20] MEDS: IPRATROPIUM-ALBUTEROL 3 ML NEB INHALATION SCH (11:46)
[2024-02-20 16:41] VITALS: RESP 16
[2024-02-20] MEDS: SIMETHICONE 80 MG CHEWABLE PO PRN (17:49)
[2024-02-20] MEDS: SYMBICORT 160-4.5 MCG INHALER INHALATION SCH (19:45)
[2024-02-20] MEDS: FAMOTIDINE 20 MG TAB PO SCH (20:54)
[2024-02-20] MEDS: ASPIRIN 81 MG PO SCH (20:54)
[2024-02-20] MEDS: ATORVASTATIN 20 MG TAB PO SCH (20:54)
[2024-02-20] MEDS: ISOSORBIDE MONONITRATE ER 60 MG TAB.ER.24H PO SCH (20:55)
[2024-02-20] MEDS: MULTIVITAMINS, THERA 1 EACH TAB PO SCH (20:55)
[2024-02-20] MEDS: FLUTICASONE 50MCG/SPRAY NASAL 16GM EA NOSTRIL SCH (20:55)
[2024-02-20] MEDS: BRIMONIDINE TARTRATE 0.2% DROPS 5 ML BTL BOTH EYES SCH (20:56)
[2024-02-20] MEDS: IBUPROFEN 600 MG TAB PO SCH (20:56)
[2024-02-20] MEDS: METOPROLOL SUCCINATE (ER) 100 MG TAB.ER.24H PO SCH (20:58)
[2024-02-20] MEDS ORDERED: PANTOPRAZOLE 40 MG TABLET PO SCH (21:00)
[2024-02-20] MEDS ORDERED: NICOTINE 14MG/24HR PATCH TRANSDERM SCH (21:00)
--- NOTE | 2024-02-21 00:22 | P.HPIM ---
History of Present Illness H&P Date: 02/20/24 Chief Complaint: Nausea and vomiting and generalized weakness Patient is a 64-year-old female with a past medical history of coronary artery disease no PCI, COPD, history of CVA/TIA, alcoholic liver disease, history of alcohol withdrawal send seizures, history of left carotid stent placement, anxiety/depression and heavy alcohol abuse on daily basis and also history of marijuana use presents to ER with complaints of not feeling well. Patient states that she is feeling weak and loopy and felt like she was having stool. Otherwise denies any focal weakness. She was also complaining of nausea and vomiting and generalized weakness and dehydration when she came to ER. She does drink on daily basis. She has been not feeling well for the past 2 days. She has not been eating well. Patient states her she did have a near syncopal episode prior to coming to ER. Denied any loss of consciousness. Chest x-ray showed mild prominent interstitial markings may represent chronic changes, with edema or pneumonitis possible in the proper setting. EKG showed sinus rhythm and possible left atrial enlargement. Laboratory data showed WBC 2.3 hemoglobin 11.4 and platelets 78 MCV 90.4 Sodium 135 potassium 2.9 chloride 106 bicarb is 20 BUN 7 creatinine 0.47 and blood sugar 89 calcium 7.0 magnesium 1.4 AST 123 ALT 95 and alk phos 143 and albumin 2.8 and lipase level is 45 Review of Systems Complete review of systems could not be obtained from the patient except as per HPI ROS unobtainable: due to mental status Past Medical History Past Medical History: Asthma, Coronary Artery Disease (CAD), COPD, CVA/TIA, Eye Disorder, Hypertension, Liver Disease, Myocardial Infarction (MO), Seizure Disorder, Vascular Disorder Additional Past Medical History / Comment(s): Pt recently admitted to [facility] for diarrhea, ETOH abuse. 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 soon Last Myocardial Infarction Date:: aug 2018 History of Any Multi-Drug Resistant Organisms: None Reported Past Surgical History: Cholecystectomy, Heart Catheterization, Orthopedic Surgery Additional Past Surgical History / Comment(s): L caratid stent, bilateral knee surgeries for tendon repair, bartholian cyst removed bilateral wrists, cataracts Past Anesthesia/Blood Transfusion Reactions: Motion Sickness Additional Past Anesthesia/Blood Transfusion Reaction / Comment(s): Pt has received blood without reaction. Past Psychological History: Anxiety, Depression Additional Psychological History / Comment(s): She uses a walker to ambulate. She has a nebulizer. She no longer drives, Pt. manages her own meds. Smoking Status: Current every day smoker Past Alcohol Use History: Abuse, Daily, Heavy Additional Past Alcohol Use History / Comment(s): Pt started smoking as a teen and has cut down to 1/2 pack per day. Drinks a few alcoholic drinks daily. Past Drug Use History: Marijuana Additional Drug Use History / Comment(s): Pt has medical marijuana, reports she has not used it in a while. (Doesn't like the way it makes her feel) - Past Family History Mother Family Medical History: Cancer, Congestive Heart Failure (CHF), Coronary Artery Disease (CAD), Hyperlipidemia Additional Family Medical History / Comment(s): Mother at age 85 from lung cancer. Father Family Medical History: Cancer, COPD Additional Family Medical History / Comment(s): Father at age 63 from lung cancer. Brother(s) Additional Family Medical History / Comment(s): Patient has a total of 7 sibling s. 5 are alive without any major medical problems she is aware of. 2 siblings have one from alcohol abuse and 1. Coronary artery disease. Daughter(s) Family Medical History: No Reported History Additional Family Medical History / Comment(s): Patient has one daughter with no major medical problems. Medications and Allergies Home Medications Medication Instructions Recorded Confirmed Type Aspirin EC [Ecotrin Low Dose] 81 mg PO HS 02/11/19 02/19/24 History Simvastatin [Zocor] 40 mg PO HS 07/03/22 02/19/24 History Albuterol Nebulized [Ventolin 2.5 mg INHALATION RT-QID PRN 05/17/23 02/19/24 History Nebulized] Budesonide/Formoterol Fumarate 2 puff INHALATION RT-HS 07/29/23 02/19/24 History [Symbicort 160-4.5 Mcg Inhaler] Multivitamin [Multivitamins Adult 2 tab PO HS 12/04/23 02/19/24 History Gummies] Isosorbide Mononitrate ER [Imdur] 60 mg PO HS 30 Days #30 tab 12/07/23 02/19/24 Rx Metoprolol Succinate (ER) [Toprol 100 mg PO HS 30 Days #30 tab 12/07/23 02/19/24 Rx XL] Pantoprazole [Protonix] 40 mg PO HS 01/02/24 02/19/24 History Benzonatate [Tessalon Perle] 200 mg PO TID PRN #10 cap 01/07/24 02/19/24 Rx Ipratropium-Albuterol Nebulize 3 ml INHALATION RT-Q2H PRN each 01/07/24 02/19/24 Rx [Duoneb 0.5 mg-3 mg/3 ml Soln] Ipratropium-Albuterol Nebulize 3 ml INHALATION RT-QID #100 each 01/07/24 02/19/24 Rx [Duoneb 0.5 mg-3 mg/3 ml Soln] Ondansetron Odt [Zofran ODT] 4 mg PO Q8HR PRN #20 tab 01/07/24 02/19/24 Rx guaiFENesin SYRUP 100MG/5ML 200 mg PO TID PRN #120 ml 01/07/24 02/19/24 Rx [Robitussin] Benzocaine/Menthol Lozeng [Cepacol 1 lozenge MUCOUS MEM Q4HR PRN 01/15/24 02/19/24 History lozenge] Ibuprofen [Motrin Ib] 400 mg PO Q8H PRN 01/15/24 02/19/24 History Ibuprofen [Motrin Ib] 600 mg PO HS 01/15/24 02/19/24 History Brimonidine Tartrate [Alphagan P 1 drop BOTH EYES HS 02/02/24 02/19/24 History 0.2% Ophth Soln] Fluticasone Nasal [place] [Flonase 2 spray EA NOSTRIL HS 02/02/24 02/19/24 History Nasal [place]] Artificial Tears-Hypromellose 1 drops BOTH EYES TID PRN #5 ml 02/14/24 02/19/24 Rx [Artificial Tear Drops] Famotidine [Pepcid] 20 mg PO HS 02/19/24 02/19/24 History Nicotine 14Mg/24Hr Patch [Habitrol] 1 patch TRANSDERM HS 02/19/24 02/19/24 History Potassium Chloride ER [K-Dur 20] 20 meq PO HS 02/19/24 02/19/24 History Thiamine [Vitamin B-1] 100 mg PO HS 02/19/24 02/19/24 History Ticagrelor [Brilinta] 90 mg PO BID tab 02/21/24 Rx Allergies Allergy/AdvReac Type Severity Reaction Status Date / Time Oceana And Derivatives Allergy Rash/Hives Verified 02/19/24 20:50 [Oceana] latex Allergy Rash/Hives Verified 02/19/24 20:50 Influenza Virus Vaccines AdvReac Nausea & Verified 02/19/24 20:50 Vomiting morphine AdvReac Nausea & Verified 02/19/24 20:50 Vomiting tomato AdvReac Diarrhea Verified 02/19/24 20:50 Physical Exam Vitals: Vital Signs Temp Pulse Pulse Resp BP BP BP 02/20/24 07:00 97.8 F 105 H 18 171/124 02/20/24 00:41 97.9 F 95 18 159/93 02/20/24 00:15 106 H 16 130/85 02/19/24 23:00 98 18 105/83 02/19/24 22:00 98 15 106/75 02/19/24 21:00 97 18 95/49 02/19/24 20:00 98 18 93/75 02/19/24 19:15 96 16 101/78 02/19/24 18:56 93 18 93/55 02/19/24 18:33 97.8 F 97 18 73/41 Pulse Ox 02/20/24 07:00 95 02/20/24 00:41 98 02/20/24 00:15 98 02/19/24 23:00 95 02/19/24 22:00 94 L 02/19/24 21:00 96 02/19/24 20:00 96 02/19/24 19:15 99 02/19/24 18:56 97 02/19/24 18:33 95 Intake and Output 02/19/24 02/20/24 02/20/24 22:59 06:59 14:59 Output Total 700 Balance -700 Output: Urine 700 Other: Voiding Method External Catheter External Catheter Weight 72.575 kg 72.575 kg PHYSICAL EXAMINATION: Patient is lying in the bed, no acute distress, awake alert but confused and lethargic and drowsy.. HEENT: Normocephalic. Neck is supple. Pupils reactive. Nostrils clear. Oral cavity is moist. Neck reveals no JVD, carotid bruits, or thyromegaly. CHEST EXAMINATION: Trachea is central. Symmetrical expansion. Bibasilar diminished sounds otherwise lung galvan clear to auscultation and percussion. CARDIAC: Normal S1, S2 with no gallops. No murmurs ABDOMEN: Soft. Bowel sounds normal. No organomegaly. No abdominal bruits. Extremities: reveal no edema. No clubbing or cyanosis Neurologically awake, alert, oriented x 2-3 able to move all extremities.. No gross focal neurological deficits noted Skin: No rash or skin lesions. Psychiatric: Coperative. Denies any suicidal ideation. Musculoskeletal: No joint swelling or deformity. Normal range of motion. Results CBC & Chem 7: 02/21/24 06:38 02/21/24 06:38 Labs: Abnormal Lab Results - Last 24 Hours (Table) 02/19/24 02/19/24 02/20/24 Range/Units 18:54 18:54 07:07 WBC 2.3 L (3.8-10.6) k/uL RBC 3.49 L (3.80-5.40) m/uL MCV 100.4 H (80.0-100.0) fL RDW 17.7 H 17.6 H (11.5-15.5) % Plt Count 116 L D 78 L (150-450) k/uL Neutrophils # (Manual) 1.10 L (1.3-7.7) k/uL Lymphocytes # (Manual) 0.90 L (1.0-4.8) k/uL Myelocytes # (Manual) 0.04 H (0) k/uL Sodium 134 L (137-145) mmol/L Potassium (3.5-5.1) mmol/L Carbon Dioxide 21 L (22-30) mmol/L Creatinine (0.52-1.04) mg/dL Glucose 117 H (74-99) mg/dL Calcium 8.3 L (8.4-10.2) mg/dL Magnesium 1.5 L (1.6-2.3) mg/dL AST 160 H (14-36) U/L ALT 110 H (4-34) U/L Alkaline Phosphatase 134 H (38-126) U/L Total Protein 6.0 L (6.3-8.2) g/dL Albumin (3.5-5.0) g/dL 02/20/24 Range/Units 07:07 WBC (3.8-10.6) k/uL RBC (3.80-5.40) m/uL MCV (80.0-100.0) fL RDW (11.5-15.5) % Plt Count (150-450) k/uL Neutrophils # (Manual) (1.3-7.7) k/uL Lymphocytes # (Manual) (1.0-4.8) k/uL Myelocytes # (Manual) (0) k/uL Sodium 135 L (137-145) mmol/L Potassium 2.9 L (3.5-5.1) mmol/L Carbon Dioxide 20 L (22-30) mmol/L Creatinine 0.47 L (0.52-1.04) mg/dL Glucose (74-99) mg/dL Calcium 7.0 L (8.4-10.2) mg/dL Magnesium 1.4 L (1.6-2.3) mg/dL AST 123 H (14-36) U/L ALT 95 H (4-34) U/L Alkaline Phosphatase 143 H (38-126) U/L Total Protein 5.3 L (6.3-8.2) g/dL Albumin 2.8 L (3.5-5.0) g/dL Thrombosis Risk Factor Assmnt - DVT/VTE Prophylaxis DVT/VTE Prophylaxis: Pharmacologic Prophylaxis ordered Assessment and Plan Assessment: Acute alcohol withdrawal symptoms and possible DTs Nausea vomiting and generalized weakness Severe hypokalemia and hypomagnesemia Hypovolemic hyponatremia Macrocytic anemia due to alcohol abuse Elevated liver enzymes possible alcoholic hepatitis COPD not in exacerbation History of CVA/TIA Hypertension Alcohol liver cirrhosis Chronic back pain and degenerative disc disease Prior history of left carotid stent placement Anxiety/depression Everyday smoker currently Alcohol use disorder GI and DVT prophylax with PPI and heparin subcu Plan: Patient will be continued on IV hydration with normal saline. Replace potassium magnesium and will follow-up repeat labs. Symptomatic management for nausea and vomiting. Encourage oral intake. Pelvic alcohol withdrawal protocol and monitor closely. Current with home medications. GI and DVT prophylaxis. Encourage oral intake. PT OT will be consulted. Continue to follow closely. Smoking cessation and alcohol abstinence has been counseled extensively. Time with Patient: Greater than 30
[2024-02-21] MEDS: BENZOCAINE/MENTHOL LOZENG 1 EACH LOZENGE MUCOUS MEM PRN (01:28)
[2024-02-21] MEDS: MELATONIN 5 MG TABLET PO SCH (01:29)
[2024-02-21 11:26] LABS: Basophils # (A) 0.04 X 10*3/uL (0.00-0.10); Basophils % (A) 1.2 %; Eosinophils # (A) 0.05 X 10*3/uL (0.04-0.35); Eosinophils % (A) 1.5 %; HCT 30.9 % (37.2-46.3); HGB 9.6 g/dL (12.0-15.0); Lymphocytes # (A) 0.86 X 10*3/uL (0.90-5.00); Lymphocytes % (A) 26.3 %; MCH 31.3 pg (27.0-32.0); MCHC 31.1 g/dL (32.0-37.0); MCV 100.7 FL (80.0-97.0); Mean Platelet Volume 11.3 FL (9.5-12.2); Monocytes # (A) 0.68 X 10*3/uL (0.20-1.00); Monocytes % (A) 20.8 %; NRBC Per 100 WBC 0 X 10*3/uL (0.00-0.01); Neutrophils # (A) 1.63 X 10*3/uL (1.80-7.70); Neutrophils % (A) 49.9 %; Platelet Count 86 X 10*3/uL (140-440); RBC 3.07 X 10*6/uL (4.10-5.20); RDW 18.1 % (11.5-14.5); WBC 3.27 X 10*3/uL (4.50-10.00)
[2024-02-21 12:00] LABS: ALT 61 U/L (8-44); AST 52 U/L (13-35); Albumin/Globulin Ratio 1.76 Ratio (1.60-3.17); Alkaline Phosphatase 125 U/L (41-126); Blood Urea Nitrogen 6.3 mg/dL (9.0-27.0); Calcium 7.4 mg/dL (8.7-10.3); Carbon Dioxide 19.8 mmol/L (21.6-31.8); Chloride 106 mmol/L (96-109); Globulin 1.7 g/dL (1.6-3.3); Glucose 95 mg/dL (70-110); Magnesium 1.8 mg/dL (1.5-2.4); Potassium 4.9 mmol/L (3.5-5.5); Sodium 137 mmol/L (135-145); Total Bilirubin <0.2 mg/dL (0.3-1.2); Total Protein 4.7 g/dL (6.2-8.2)
[2024-02-21 14:21] VITALS: BP 182/90; PULSE 75; TEMP 98.5
[2024-02-21] MEDS ORDERED: MELATONIN 5 MG TABLET PO SCH (21:00)
--- NOTE | 2024-02-25 15:48 | P.DS ---
Providers Date of admission: 02/21/24 08:03 Expected date of discharge: 02/21/24 Attending physician: Mark Cardoza Primary care physician: Miya Johnson [facility] Course: Final diagnosis Acute alcohol withdrawal symptoms and acute early DTs Nausea vomiting and generalized weakness secondary to above Severe hypokalemia and hypomagnesemia secondary to alcohol intoxication Hypovolemic hyponatremia Macrocytic anemia due to alcohol abuse Elevated liver enzymes possible alcoholic hepatitis COPD not in exacerbation History of CVA/TIA Hypertension Alcohol liver cirrhosis Chronic back pain and degenerative disc disease Prior history of left carotid stent placement Anxiety/depression Everyday smoker currently Alcohol use disorder GI and DVT prophylax Discharge disposition Patient is being discharged in a stable condition with guarded prognosis to home with home care. Patient will follow-up with Dr. Sherman Cardoza in the outpatient setting upon discharge. Patient is to continue with current medications and outpatient follow-up with cardiology as scheduled. Total time taken is greater than 35 minutes. Hospital course This is a 64-year-old female who was recently admitted with acute alcohol withdrawal and early delirium tremens being closely monitored. Patient maintained on CIWA protocol and with significant electrolyte abnormalities being replaced. Patient reports to feeling improved and would like to go home. Repeat labs reviewed. Magnesium and potassium within normal limits and patient is reporting feeling improved and demanding to go home. Currently no reports of chest pain, shortness of breath, or palpitations. Patient is afebrile. No reports of nausea or vomiting and patient is tolerating diet. Patient will be discharged home today. Guarded prognosis and high risk for readmissions given patient's continued noncompliance and continued alcohol abuse. Patient has had multiple ER visits and hospitalizations secondary to this. Physical exam: Gen: This is a 64-year-old female who is awake, alert and oriented x 3, well- developed, well-nourished, elderly appearing HEENT: Head is atraumatic, normocephalic. Pupils equal, round. Sclerae is anicteric. NECK: Supple. No JVD. No lymphadenopathy. No thyromegaly. LUNGS: Diminished breath sounds bilaterally with some coarse rhonchi. No intercostal retractions. HEART: Regular rate and rhythm. No murmur. ABDOMEN: Soft. Obese. Bowel sounds are present. No masses. No tenderness. EXTREMITIES: No pedal edema. No calf tenderness. NEUROLOGICAL: Patient is awake, alert and oriented x3. Cranial nerves 2 through 12 are grossly intact. Please refer to medication reconciliation sheet for a list of medications. The impression and plan of care has been dictated by Tonya Adan, Nurse Practitioner as directed. Dr. Manuel MD I have performed a history and examination and MDM of this patient, discussed the same with the dictator, and agree with the dictator's assessment and plan as written ,documented as a scribe. Based on total visit time, I have performed more than 50% of the visit. Patient Condition at Discharge: Fair Plan - Discharge Summary New Discharge Prescriptions: New Ticagrelor [Brilinta] 90 mg PO BID tab Continue Aspirin EC [Ecotrin Low Dose] 81 mg PO HS Budesonide/Formoterol Fumarate [Symbicort 160-4.5 Mcg Inhaler] 2 puff INHALATION RT-HS Multivitamin [Multivitamins Adult Gummies] 2 tab PO HS Metoprolol Succinate (ER) [Toprol XL] 100 mg PO HS 30 Days #30 tab Ipratropium-Albuterol Nebulize [Duoneb 0.5 mg-3 mg/3 ml Soln] 3 ml INHALATION RT-QID #100 each Ipratropium-Albuterol Nebulize [Duoneb 0.5 mg-3 mg/3 ml Soln] 3 ml INHALATION RT-Q2H PRN each PRN Reason: Shortness Of Breath Or Wheezing guaiFENesin SYRUP 100MG/5ML [Robitussin] 200 mg PO TID PRN #120 ml PRN Reason: Cough Ibuprofen [Motrin Ib] 400 mg PO Q8H PRN PRN Reason: Pain Ibuprofen [Motrin Ib] 600 mg PO HS Artificial Tears-Hypromellose [Artificial Tear Drops] 1 drops BOTH EYES TID PRN #5 ml PRN Reason: Dry Eye(S) Famotidine [Pepcid] 20 mg PO HS Thiamine [Vitamin B-1] 100 mg PO HS Simvastatin [Zocor] 40 mg PO HS Albuterol Nebulized [Ventolin Nebulized] 2.5 mg INHALATION RT-QID PRN PRN Reason: Shortness Of Breath Isosorbide Mononitrate ER [Imdur] 60 mg PO HS 30 Days #30 tab Pantoprazole [Protonix] 40 mg PO HS Benzonatate [Tessalon Perle] 200 mg PO TID PRN #10 cap PRN Reason: Cough Ondansetron Odt [Zofran ODT] 4 mg PO Q8HR PRN #20 tab PRN Reason: Nausea Benzocaine/Menthol Lozeng [Cepacol lozenge] 1 lozenge MUCOUS MEM Q4HR PRN PRN Reason: Cough Brimonidine Tartrate [Alphagan P 0.2% Ophth Soln] 1 drop BOTH EYES HS Fluticasone Nasal [place] [Flonase Nasal [place]] 2 spray EA NOSTRIL HS Nicotine 14Mg/24Hr Patch [Habitrol] 1 patch TRANSDERM HS Potassium Chloride ER [K-Dur 20] 20 meq PO HS Discontinued Ticagrelor [Brilinta] 90 mg PO HS Discharge Medication List Aspirin EC [Ecotrin Low Dose] 81 mg PO HS 02/11/19 [History] Simvastatin [Zocor] 40 mg PO HS 07/03/22 [History] Albuterol Nebulized [Ventolin Nebulized] 2.5 mg INHALATION RT-QID PRN 05/17/23 [History] Budesonide/Formoterol Fumarate [Symbicort 160-4.5 Mcg Inhaler] 2 puff INHALATION RT-HS 07/29/23 [History] Multivitamin [Multivitamins Adult Gummies] 2 tab PO HS 12/04/23 [History] Isosorbide Mononitrate ER [Imdur] 60 mg PO HS 30 Days #30 tab 12/07/23 [Rx] Metoprolol Succinate (ER) [Toprol XL] 100 mg PO HS 30 Days #30 tab 12/07/23 [Rx] Pantoprazole [Protonix] 40 mg PO HS 01/02/24 [History] Benzonatate [Tessalon Perle] 200 mg PO TID PRN #10 cap 01/07/24 [Rx] Ipratropium-Albuterol Nebulize [Duoneb 0.5 mg-3 mg/3 ml Soln] 3 ml INHALATION RT-Q2H PRN each 01/07/24 [Rx] Ipratropium-Albuterol Nebulize [Duoneb 0.5 mg-3 mg/3 ml Soln] 3 ml INHALATION RT-QID #100 each 01/07/24 [Rx] Ondansetron Odt [Zofran ODT] 4 mg PO Q8HR PRN #20 tab 01/07/24 [Rx] guaiFENesin SYRUP 100MG/5ML [Robitussin] 200 mg PO TID PRN #120 ml 01/07/24 [Rx] Benzocaine/Menthol Lozeng [Cepacol lozenge] 1 lozenge MUCOUS MEM Q4HR PRN 01/15/24 [History] Ibuprofen [Motrin Ib] 400 mg PO Q8H PRN 01/15/24 [History] Ibuprofen [Motrin Ib] 600 mg PO HS 01/15/24 [History] Brimonidine Tartrate [Alphagan P 0.2% Ophth Soln] 1 drop BOTH EYES HS 02/02/24 [ History] Fluticasone Nasal [place] [Flonase Nasal [place]] 2 spray EA NOSTRIL HS 02/02/24 [History] Artificial Tears-Hypromellose [Artificial Tear Drops] 1 drops BOTH EYES TID PRN #5 ml 02/14/24 [Rx] Famotidine [Pepcid] 20 mg PO HS 02/19/24 [History] Nicotine 14Mg/24Hr Patch [Habitrol] 1 patch TRANSDERM HS 02/19/24 [History] Potassium Chloride ER [K-Dur 20] 20 meq PO HS 02/19/24 [History] Thiamine [Vitamin B-1] 100 mg PO HS 02/19/24 [History] Ticagrelor [Brilinta] 90 mg PO BID tab 02/21/24 [Rx] Follow up Appointment(s)/Referral(s): Miya Johnson MD [Primary Care Provider] - 1-2 days [facility] Vis[facility] Nurse, [NON-STAFF] - 1 Week Activity/Diet/Wound Care/Special Instructions: Activity limited until follow-up Follow-up with primary care provider Continue taking medications as prescribed Avoid alcohol intake Continue with potassium supplementation Discharge Disposition: HOME WITH HOME HEALTH SERVICES
== END 2024-02-21 11:03 | disposition home or self-care (01) ==
LOC: EC 18:31 → 6NMEDSUR 22:44 → INTOOBSV 02-21 08:03 → OBSVTOIN 02-21 08:03 → UNDODISIN 02-21 17:55
PROVIDERS: ADMIT Hospitalist; ATTEND Hospitalist
DX: F10.231 Alcohol dependence with withdrawal delirium (principal); F10.221 Alcohol dependence with intoxication delirium; E86.0 Dehydration; E87.6 Hypokalemia; E87.1 Hypo-osmolality and hyponatremia; E83.42 Hypomagnesemia; D53.9 Nutritional anemia, unspecified; K70.30 Alcoholic cirrhosis of liver without ascites; G89.29 Other chronic pain; M54.9 Dorsalgia, unspecified; R74.8 Abnormal levels of other serum enzymes; I25.10 Atherosclerotic heart disease of native coronary artery without angina pectoris; J44.9 Chronic obstructive pulmonary disease, unspecified; I10 Essential (primary) hypertension; I25.2 Old myocardial infarction; I69.351 Hemiplegia and hemiparesis following cerebral infarction affecting right dominant side; F41.9 Anxiety disorder, unspecified; F32.A Depression, unspecified; F17.200 Nicotine dependence, unspecified, uncomplicated; Z79.51 Long term (current) use of inhaled steroids; Z79.82 Long term (current) use of aspirin; Z79.899 Other long term (current) drug therapy; Z88.5 Allergy status to narcotic agent; Z91.040 Latex allergy status
CPT/HCPCS: 36415; 71045; 80053; 83690; 83735; 83880; 84100; 84484; 85025; 85610; 85730; 93005; 94640; 96361; 96365; 96366; 96375; 96376; 99285

== ENCOUNTER 2024-02-26 10:37 | Observation (INO) | payer OTHER ==
--- NOTE | 2024-02-26 10:45 | ED ---
Chest Pain HPI - General Source: patient, EMS, RN notes reviewed, old records reviewed Mode of arrival: EMS Limitations: no limitations <Alexsander Currie - Last Filed: 02/26/24 10:43> - General Source: patient, RN notes reviewed Mode of arrival: EMS <Peyton English - Last Filed: 02/26/24 14:19> - General Chief Complaint: Chest Pain Stated Complaint: ETOH Time Seen by Provider: 02/26/24 10:37 - History of Present Illness Initial Comments: quick [id number] female presents emergency department via EMS chief complaint of chest discomfort. She has been having intermittent symptoms for a while she states has been a recurrent issue. She does admit to alcohol use which is chronic and states she has been admitted for alcohol in the past. She complains of diffuse abdominal pain, foot pain along with multiple other compla ints. (Alexsander Currie) Patient is a 64-year-old female with history of CAD, hyperlipidemia, CVA, COPD, and alcohol use disorder presenting with chest pain since this morning. Describes a midsternal, intermittent pain. Denies known alleviating or exacerbating factors. States she is on a blood thinner and aspirin that she takes daily. States she has had this pain in the past. Admits to 2 shots of whiskey this morning. (Peyton English) - Related Data Home Medications Medication Instructions Recorded Confirmed Aspirin EC [Ecotrin Low Dose] 81 mg PO HS 02/11/19 02/19/24 Simvastatin [Zocor] 40 mg PO HS 07/03/22 02/19/24 Albuterol Nebulized [Ventolin 2.5 mg INHALATION RT-QID PRN 05/17/23 02/19/24 Nebulized] Budesonide/Formoterol Fumarate 2 puff INHALATION RT-HS 07/29/23 02/19/24 [Symbicort 160-4.5 Mcg Inhaler] Multivitamin [Multivitamins Adult 2 tab PO HS 12/04/23 02/19/24 Gummies] Pantoprazole [Protonix] 40 mg PO HS 01/02/24 02/19/24 Benzocaine/Menthol Lozeng [Cepacol 1 lozenge MUCOUS MEM Q4HR PRN 01/15/24 02/19/24 lozenge] Ibuprofen [Motrin Ib] 400 mg PO Q8H PRN 01/15/24 02/19/24 Ibuprofen [Motrin Ib] 600 mg PO HS 01/15/24 02/19/24 Brimonidine Tartrate [Alphagan P 1 drop BOTH EYES HS 02/02/24 02/19/24 0.2% Ophth Soln] Fluticasone Nasal [place] [Flonase 2 spray EA NOSTRIL HS 02/02/24 02/19/24 Nasal [place]] Famotidine [Pepcid] 20 mg PO HS 02/19/24 02/19/24 Nicotine 14Mg/24Hr Patch [Habitrol] 1 patch TRANSDERM HS 02/19/24 02/19/24 Potassium Chloride ER [K-Dur 20] 20 meq PO HS 02/19/24 02/19/24 Thiamine [Vitamin B-1] 100 mg PO HS 02/19/24 02/19/24 Previous Rx's Medication Instructions Recorded Isosorbide Mononitrate ER [Imdur] 60 mg PO HS 30 Days #30 tab 12/07/23 Metoprolol Succinate (ER) [Toprol 100 mg PO HS 30 Days #30 tab 12/07/23 XL] Benzonatate [Tessalon Perle] 200 mg PO TID PRN #10 cap 01/07/24 Ipratropium-Albuterol Nebulize 3 ml INHALATION RT-Q2H PRN each 01/07/24 [Duoneb 0.5 mg-3 mg/3 ml Soln] Ipratropium-Albuterol Nebulize 3 ml INHALATION RT-QID #100 each 01/07/24 [Duoneb 0.5 mg-3 mg/3 ml Soln] Ondansetron Odt [Zofran ODT] 4 mg PO Q8HR PRN #20 tab 01/07/24 guaiFENesin SYRUP 100MG/5ML 200 mg PO TID PRN #120 ml 01/07/24 [Robitussin] Artificial Tears-Hypromellose 1 drops BOTH EYES TID PRN #5 ml 02/14/24 [Artificial Tear Drops] Ticagrelor [Brilinta] 90 mg PO BID tab 02/21/24 Allergies Allergy/AdvReac Type Severity Reaction Status Date / Time Quanah And Derivatives Allergy Rash/Hives Verified 02/26/24 10:41 [Quanah] latex Allergy Rash/Hives Verified 02/26/24 10:41 Influenza Virus Vaccines AdvReac Nausea & Verified 02/26/24 10:41 Vomiting morphine AdvReac Nausea & Verified 02/26/24 10:41 Vomiting tomato AdvReac Diarrhea Verified 02/26/24 10:41 Review of Systems ROS Other: All systems not noted in ROS Statement are negative. <Alexsander Currie - Last Filed: 02/26/24 10:43> ROS Other: All systems not noted in ROS Statement are negative. <EnglishPeyton - Last Filed: 02/26/24 14:19> ROS Statement: Those systems with pertinent positive or pertinent negative responses have been documented in the HPI. EKG Findings - EKG Comments: EKG Findings:: Normal sinus rhythm with no acute ST changes. Vent rate 80 bpm, AK interval 132, QRS duration 91, QT/QTc 384/419 <AmadorPeyton - Last Filed: 02/26/24 14:19> Past Medical History Past Medical History: Asthma, Coronary Artery Disease (CAD), COPD, CVA/TIA, Eye Disorder, Hypertension, Liver Disease, Myocardial Infarction ([place]), Seizure Disorder, Vascular Disorder Additional Past Medical History / Comment(s): Pt recently admitted to [facility] for diarrhea, ETOH abuse. 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 soon Last Myocardial Infarction Date:: aug 2018 History of Any Multi-Drug Resistant Organisms: None Reported Past Surgical History: Cholecystectomy, Heart Catheterization, Orthopedic Surgery Additional Past Surgical History / Comment(s): L caratid stent, bilateral knee surgeries for tendon repair, bartholian cyst removed bilateral wrists, cataracts Past Anesthesia/Blood Transfusion Reactions: Motion Sickness Additional Past Anesthesia/Blood Transfusion Reaction / Comment(s): Pt has received blood without reaction. Past Psychological History: Anxiety, Depression Smoking Status: Current every day smoker Past Alcohol Use History: Abuse, Daily, Heavy Past Drug Use History: Marijuana - Past Family History Mother Family Medical History: Cancer, Congestive Heart Failure (CHF), Coronary Artery Disease (CAD), Hyperlipidemia Additional Family Medical History / Comment(s): Mother at age 85 from lung cancer. Father Family Medical History: Cancer, COPD Additional Family Medical History / Comment(s): Father at age 63 from lung cancer. Brother(s) Additional Family Medical History / Comment(s): Patient has a total of 7 siblings. 5 are alive without any major medical problems she is aware of. 2 siblings have one from alcohol abuse and 1. Coronary artery disease. Daughter(s) Family Medical History: No Reported History Additional Family Medical History / Comment(s): Patient has one daughter with no major medical problems. <Alexsander Currie - Last Filed: 02/26/24 10:43> General Exam Limitations: no limitations <Alexsander Currie - Last Filed: 02/26/24 10:43> Limitations: no limitations General appearance: alert, in no apparent distress Head exam: Present: atraumatic, normocephalic, normal inspection Eye exam: Present: normal appearance, PERRL, EOMI. Absent: scleral icterus, conjunctival injection, periorbital swelling ENT exam: Present: normal exam, mucous membranes moist Neck exam: Present: normal inspection. Absent: tenderness, meningismus, lymphadenopathy Respiratory exam: Present: normal lung sounds bilaterally. Absent: respiratory distress, wheezes, rales, rhonchi, stridor GI/Abdominal exam: Present: soft, normal bowel sounds. Absent: distended, tenderness, guarding, rebound, rigid Neurological exam: Present: alert, oriented X3, CN II-XII intact Psychiatric exam: Present: normal affect, normal mood Skin exam: Present: warm, dry, intact, normal color. Absent: rash <Peyton English - Last Filed: 02/26/24 14:19> - General Exam Comments Initial Comments: Visual Physical Exam Vital signs reviewed General: Well-appearing, nontoxic, no acute distress. Head: Normocephalic, atraumatic Eyes: PERRLA, EOMI ENT: Airway patent Chest: Nonlabored breathing Skin: No visual rash, normal skin tone Neuro: Alert and oriented 3 Musculoskeletal: No gross abnormalities (Alexsander Currie) Course Vital Signs 02/26/24 10:39 Temperature 97.6 F Pulse Rate 59 L Respiratory 20 Rate Blood Pressure 126/85 O2 Sat by Pulse 96 Oximetry Chest Pain MDM <Alexsander Currie - Last Filed: 02/26/24 10:43> <Peyton English - Last Filed: 02/26/24 14:19> - MDM I completed the quick note portion of this chart signed Alexsander Currie PA-C (Alexsander Currie) Was pt. sent in by a medical professional or institution (, PA, SUBSTATION INSPECTOR, urgent care, hospital, or fpc...) When possible be specific @ -No Did you speak to anyone other than the patient for history (EMS, parent, family, police, friend...)? What history was obtained from this source @ -No Did you review nursing and triage notes (agree or disagree)? Why? @ -I reviewed and agree with nursing and triage notes Were old charts reviewed (outside hosp., previous admission, EMS record, old EKG, old radiological studies, urgent care reports/EKG's, fpc records)? Report findings @ -No old charts were reviewed Differential Diagnosis (chest pain, altered mental status, abdominal pain women, abdominal pain men, vaginal bleeding, weakness, fever, dyspnea, syncope, headache, dizziness, GI bleed, back pain, seizure, CVA, palpatations, mental health, musculoskeletal)? @ -Differential Chest Pain: Stable Angina, Unstable Angina, STEMI, NSTEMI Aortic Dissection, Pneumothorax, Musculoskeletal, Esophageal Spasm GERD, Cholecystitis, Pancreatitis, Zoster, this is not meant to be an all-inclusive list. Alcohol intoxication EKG interpreted by me (3pts min.). @ -Normal sinus rhythm with no acute ST changes X-rays interpreted by me (1pt min.). @ -Chest x-ray revealed no acute process CT interpreted by me (1pt min.). @ -None done U/S interpreted by me (1pt. min.). @ -None done What testing was considered but not performed or refused? (CT, X-rays, U/S, labs)? Why? @ -None What meds were considered but not given or refused? Why? @ -None Did you discuss the management of the patient with other professionals (professionals i.e. , PA, SUBSTATION INSPECTOR, lab, RT, psych nurse, family welfare social work professor, oil producer, teacher, promotion officer, correctional counselor/case manager)? Give summary @ -No Was smoking cessation discussed for >3mins.? @ -No Was critical care preformed (if so, how long)? @ -No Were there social determinants of health that impacted care today? How? (Homelessness, low income, unemployed, alcoholism, drug addiction, transportation, low edu. Level, literacy, decrease access to med. care, [place] [facility], rehab)? @ -no Was there de-escalation of care discussed even if they declined (Discuss DNR or withdrawal of care, Hospice)? DNR status @ -No What co-morbidities impacted this encounter? (DM, HTN, Smoking, COPD, CAD, Cancer, CVA, ARF, Chemo, Hep., AIDS, mental health diagnosis, sleep apnea, morbid obesity)? @ -None Was patient admitted / discharged? Hospital course, mention meds given and route, prescriptions, significant lab abnormalities, going to OR and other pertinent info. @ -Patient was admitted. Patient was seen and evaluated for chest pain. Upon examination, patient appeared to be intoxicated. Vitals are stable and physical examination is unremarkable. Serum alcohol is 352. Full cardiac workup with EKG, chest x-ray and basic labs are all unremarkable. [facility] with [facility] hospitalist group and Dr. Salas. Undiagnosed new problem with uncertain prognosis? @ -No Drug Therapy requiring intensive monitoring for toxicity (Heparin, Nitro, Insulin, Cardizem)? @ -No Were any procedures done? @ -No Diagnosis/symptom? @ -Acute alcohol intoxication Acute, or Chronic, or Acute on Chronic? @ -Acute Uncomplicated (without systemic symptoms) or Complicated (systemic symptoms)? @ -Uncomplicated Side effects of treatment? @ -No Exacerbation, Progression, or Severe Exacerbation? @ -No Poses a threat to life or bodily function? How? (Chest pain, [place], [place], pneumonia, PE, COPD, DKA, ARF, appy, cholecystitis, CVA, Diverticulitis, Homicidal, Suicidal, threat to staff... and all critical care pts) @ -Yes, acute alcohol intoxication (Peyton English) Disposition <Alexsander Currie - Last Filed: 02/26/24 10:43> Time of Disposition: 14:10 <Peyton English - Last Filed: 02/26/24 14:19> Clinical Impression: Acute alcohol intoxication Disposition: ADMITTED IP TO THIS HOSP Condition: Stable Referrals: Miya Johnson MD [Primary Care Provider] - 1-2 days
[2024-02-26 11:32] LABS: ALT 78 U/L (4-34); AST 128 U/L (14-36); African American GFR (CKD) >90 (>60 ml/min/1.73 sqM); Albumin 3.7 g/dL (3.5-5.0); Alkaline Phosphatase 220 U/L (38-126); Anion Gap 15 mmol/L; Blood Urea Nitrogen 7 mg/dL (7-17); Calcium 8.4 mg/dL (8.4-10.2); Carbon Dioxide 23 mmol/L (22-30); Chloride 106 mmol/L (98-107); Glucose 115 mg/dL (74-99); Lipase 86 U/L (23-300); Magnesium 1.8 mg/dL (1.6-2.3); Non-African American GFR(CKD) >90 (>60 ml/min/1.73 sqM); Potassium 3.5 mmol/L (3.5-5.1); Sodium 144 mmol/L (137-145); Total Bilirubin 0.4 mg/dL (0.2-1.3); Total Protein 6.5 g/dL (6.3-8.2)
[2024-02-26 11:34] LABS: Partial Thromboplastin Time 24.6 sec (22.0-30.0); Prothrombin Time 11.1 sec (10.0-12.5)
[2024-02-26 11:58] LABS: Alcohol 352 mg/dL
[2024-02-26 12:16] LABS: Anisocytosis Slight; Basophils # (A) 0.1 k/uL (0-0.2); Basophils % (A) 3 %; Eosinophils # (A) 0.1 k/uL (0-0.7); Eosinophils % (A) 2 %; HCT 42.4 % (34.0-46.0); HGB 13.5 gm/dL (11.4-16.0); Lymphocytes # (A) 2.3 k/uL (1.0-4.8); Lymphocytes % (A) 45 %; MCH 30.9 pg (25.0-35.0); MCHC 31.8 g/dL (31.0-37.0); Macrocytosis Slight; Mean Platelet Volume 7.9; Monocytes # (A) 0.2 k/uL (0-1.0); Monocytes % (A) 4 %; Neutrophils # (A) 2.2 k/uL (1.3-7.7); Neutrophils % (A) 43 %; RBC 4.37 m/uL (3.80-5.40); RDW 17.3 % (11.5-15.5); WBC 5.1 k/uL (3.8-10.6)
[2024-02-26 12:17] LABS: Platelet Count 265 k/uL (150-450)
--- NOTE | 2024-02-26 12:47 | XR ---
EXAMINATION TYPE: XR chest 2V DATE OF EXAM: 02/26/2024 COMPARISON: 02/19/2024 HISTORY: 64-year-old female with chest pain TECHNIQUE: PA and lateral views FINDINGS: The cardiomediastinal silhouette, aorta, and pulmonary vasculature are within normal limits. Mild hyp erinflation. No consolidation or pleural effusion. IMPRESSION: Mild hyperinflation may relate to a depth of inspiration or underlying COPD. Clinically correlate. No acute process seen.
[2024-02-26] MEDS ORDERED: NALOXONE 0.4 MG/ML 1 ML VIAL IV PRN (14:11)
[2024-02-26] MEDS ORDERED: LORazepam 2 MG/ML INJ IV PRN ×2 (14:16)
[2024-02-26] MEDS: LORazepam 0.5 MG TAB PO PRN (15:05)
[2024-02-26] MEDS ORDERED: ARTIFICIAL TEARS-HYPROMELLOSE DROPS 15 ML BTL BOTH EYES PRN (15:52)
[2024-02-26] MEDS ORDERED: IPRATROPIUM-ALBUTEROL 3 ML NEB INHALATION PRN (15:52)
[2024-02-26] MEDS: ALBUTEROL NEBULIZED 2.5 MG/3 ML INHALATION PRN (16:05)
[2024-02-26] MEDS: IPRATROPIUM-ALBUTEROL 3 ML NEB INHALATION SCH (16:10)
[2024-02-26] MEDS: PANTOPRAZOLE 40 MG/10 ML VIAL IVP SCH (16:20)
[2024-02-26] MEDS: LORazepam 2 MG/ML INJ IV PRN (18:02)
[2024-02-26] MEDS: SYMBICORT 160-4.5 MCG INHALER INHALATION SCH (19:57)
[2024-02-26] MEDS: NICOTINE 14MG/24HR PATCH TRANSDERM SCH (20:34)
[2024-02-26] MEDS: ATORVASTATIN 20 MG TAB PO SCH (20:35)
[2024-02-26] MEDS: FAMOTIDINE 20 MG TAB PO SCH (20:35)
[2024-02-26] MEDS: METOPROLOL SUCCINATE (ER) 100 MG TAB.ER.24H PO SCH (20:35)
[2024-02-26] MEDS: TICAGRELOR 90 MG TAB PO SCH (20:35)
[2024-02-26] MEDS: MULTIVITAMINS, THERA 1 EACH TAB PO SCH (20:35)
[2024-02-26] MEDS: ASPIRIN 81 MG PO SCH (20:35)
[2024-02-26] MEDS: ISOSORBIDE MONONITRATE ER 60 MG TAB.ER.24H PO SCH (20:35)
[2024-02-26] MEDS: BRIMONIDINE TARTRATE 0.2% DROPS 5 ML BTL BOTH EYES SCH (20:45)
[2024-02-26] MEDS: FLUTICASONE 50MCG/SPRAY NASAL 16GM EA NOSTRIL SCH (20:45)
[2024-02-26] MEDS: LORazepam 1 MG TAB PO PRN (23:06)
[2024-02-26] MEDS: ONDANSETRON 4 MG/2 ML VIAL IVP PRN (23:42)
--- NOTE | 2024-02-27 01:24 | HP ---
HISTORY AND PHYSICAL CHIEF COMPLAINT: Alcohol intoxication as well as chest and abdominal pain. HISTORY OF PRESENT ILLNESS: This is a 64-year-old with a past medical history of multiple medical problems including CAD, CVA, COPD, was admitted with significant alcohol intoxication, alcohol was 350. The patient is also currently complaining of upper abdominal lower chest pain also. There is no history of any fever, rigors, or chills at this time. Troponin 0.[address] diffuse [address]-T changes. PAST MEDICAL HISTORY: Reviewed include CAD, COPD, myocardial infarction, EtOH, rest of the history and rest of the chart is also reviewed. HOME MEDICATIONS: Reviewed include aspirin, doses and rest of medications noted. ALLERGIES: Reviewed include latex. FAMILY HISTORY: History of CHF, CAD. SOCIAL HISTORY: History of alcohol, smoking. REVIEW OF SYSTEMS: A 14-point review is negative except as mentioned earlier. PHYSICAL EXAMINATION: VITAL SIGNS: Pulse 90, blood pressure 179/112, respirations 18. HEENT: Conjunctivae normal. NECK: No jugular venous distention. CARDIOVASCULAR: S1, S2. RESPIRATIONS: Diminished at the bases. ABDOMEN: Soft, obese, minimal diffuse tenderness in the epigastrium. LEGS: No edema. NERVOUS SYSTEM: No focal deficits. SKIN: No ulcer, rash, bleeding. JOINTS: No active deforming arthropathy. LABORATORY DATA: Reviewed. ASSESSMENT: 1. Acute alcohol intoxication. 2. Upper abdomen and chest pain, rule out coronary artery disease. 3. Possible acute gastritis. 4. History of CAD. 5. Chronic obstructive pulmonary disease. 6. Hypertension. 7. History of liver disease. 8. Myocardial infarction. 9. Seizures. 10.Multiple complex medical issues. RECOMMENDATIONS AND DISCUSSION: This 64-year-old woman presented with multiple complex medical issues, we will monitor the patient closely. I would recommend CIWA protocol, alcohol withdrawal measures, DT precautions, and Cardiology consultation, rule out myocardial infarction, symptomatic treatment with Protonix. Prognosis guarded because of multiple complex medical issues. Further recommendations to follow. Repeat labs will be ordered. aquaculture worker to follow up with alcohol cessation, rehab post discharge. MMODL / JEREMYN: [id number] /
[2024-02-27] MEDS ORDERED: DOBUTamine DRIP for NUC MED 500 MG in DEXTROSE/WATER 1 250ML.BAG IV PRN (08:08)
[2024-02-27 09:31] LABS: Anisocytosis Slight; Basophils % (A) 1 %; Eosinophils % (A) 1 %; HCT 33.9 % (34.0-46.0); Lymphocytes # (A) 0.8 k/uL (1.0-4.8); Lymphocytes % (A) 20 %; MCH 31.4 pg (25.0-35.0); MCHC 32.4 g/dL (31.0-37.0); Macrocytosis Slight; Mean Platelet Volume 8.3; Monocytes # (A) 0.3 k/uL (0-1.0); Monocytes % (A) 7 %; Neutrophils # (A) 2.8 k/uL (1.3-7.7); Neutrophils % (A) 70 %; RDW 17.1 % (11.5-15.5)
[2024-02-27 09:33] LABS: ALT 51 U/L (4-34); AST 93 U/L (14-36); African American GFR (CKD) >90 (>60 ml/min/1.73 sqM); Albumin 3.1 g/dL (3.5-5.0); Albumin/Globulin Ratio 1.3; Alkaline Phosphatase 186 U/L (38-126); Anion Gap 8 mmol/L; Blood Urea Nitrogen 11 mg/dL (7-17); Calcium 8.1 mg/dL (8.4-10.2); Carbon Dioxide 27 mmol/L (22-30); Chloride 99 mmol/L (98-107); Globulin 2.4 g/dL; Glucose 91 mg/dL (74-99); Non-African American GFR(CKD) >90 (>60 ml/min/1.73 sqM); Potassium 3.4 mmol/L (3.5-5.1); Sodium 134 mmol/L (137-145); Total Bilirubin 1.2 mg/dL (0.2-1.3); Total Protein 5.5 g/dL (6.3-8.2)
[2024-02-27 09:35] LABS: Platelet Count 121 k/uL (150-450)
--- NOTE | 2024-02-27 10:06 | P.CRDCN ---
History of Present Illness Consult date: 02/27/24 Reason for Consult (text): history of CAD History of present illness: This is a 64-year-old female patient of Dr. Veena Howard with past medical history of coronary artery disease with chronic total occlusion of the right coronary artery, mild to moderate mitral regurgitation, history of recurrent CVAs status post left carotid stenting, tobacco use, hypertension, hyperlipidemia, alcohol abuse, cirrhosis of the liver. We have been asked to evaluate the patient for history of CAD. Patient states that she developed chest pain and thought that she was having a heart attack. She then developed abdominal pain and upset stomach thought she had a food virus. She had some nausea and vomiting but none since she arrived here. She also states that she has had similar symptoms since she was a child. Patient presented to the emergency center with alcohol intoxication and has been started on the CIWA protocol. She continues to smoke. EKG sinus rhythm with T wave changes Chest x-ray: Hyperinflation. No acute process. Hemoglobin 11. Sodium 134, potassium 3.4, creatinine 0.62. Elevated liver function test with AST 93, ALT 51, alkaline phosphatase 186. Troponin negative x 3. Serum alcohol 352. Home cardiac medications: Aspirin 81 mg daily, Imdur 60 mg at bedtime, Toprol-XL 100 mg at bedtime, Nitrostat as needed, simvastatin 40 mg at bedtime, Brilinta 90 mg at bedtime. Cardiac catheterization performed 02/06/[address] Veena Howard revealed chronic total occlusion of the right coronary artery. No significant obstructive coronary artery disease involving the LAD which is where the stress test was abnormal. Echocardiogram performed 02/03/2024 revealed normal left ventricular size and systolic function. Review Of Systems: At the time of my evaluation: Constitutional: No fever, no chills. No weakness, fatigue or lethargy. EENT: No headache. No dizziness. Lungs: No shortness of breath, cough, no sputum production. No wheezing. Cardiovascular: No chest pain, no lower extremity edema. No palpitations. No paroxysmal nocturnal dyspnea. No orthopnea. No lightheadedness or dizziness. No syncopal episodes. Abdominal: No abdominal pain. No nausea, vomiting. No diarrhea. No constipation. No bloody or tarry stools. Genitourinary: No dysuria.. No urinary retention. Musculoskeletal: No myalgias. No muscle weakness, no frequent falls. No back pain. No neck pain. Integumentary: No wounds. No rash. No unusual bruising. Neurologic: No aphasia. No facial droop. No change in mentation. No head injury. No headache. Physical examination: Gen: This is a 64-year-old female appears to be in no acute distress VS: reviewed HEENT: Head is atraumatic, normocephalic. Pupils equal, round. Sclerae is anicteric. NECK: Supple. No JVD. . LUNGS: Clear to auscultation. No wheezes or rhonchi. No intercostal retractions. HEART: Regular rate and rhythm. Systolic murmur. ABDOMEN: Soft No tenderness. EXTREMITIES: No pedal edema. No calf tenderness. NEUROLOGICAL: Patient is awake, alert and oriented x3. Assessment: Atypical chest pain, acute coronary syndrome ruled out Alcohol intoxication History of coronary artery disease with known chronic total occlusion of the right coronary artery history of CVA History of carotid stenosis status post left carotid stenting Hypertension Hyperlipidemia Tobacco use and dependence Plan: Resume patient's home cardiac medications Obtain 2D echocardiogram Obtain dobutamine stress echo If dobutamine stress echo is unremarkable, patient is cleared for discharge home and may follow up with Dr. Veena Howard in the office in 1 to 2 weeks. Thank you kindly for this consultation. Nurse practitioner note has been reviewed, I agree with documented findings and plan of care. Patient was seen and examined. Past Medical History Past Medical History: Asthma, Coronary Artery Disease (CAD), COPD, CVA/TIA, Eye Disorder, Hypertension, Liver Disease, Myocardial Infarction (LA), Seizure Disorder, Vascular Disorder Additional Past Medical History / Comment(s): Pt recently admitted to [facility] for diarrhea, ETOH abuse. 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 soon Last Myocardial Infarction Date:: aug 2018 History of Any Multi-Drug Resistant Organisms: None Reported Past Surgical History: Cholecystectomy, Heart Catheterization, Orthopedic Surgery Additional Past Surgical History / Comment(s): L caratid stent, bilateral knee surgeries for tendon repair, bartholian cyst removed bilateral wrists, cataracts Past Anesthesia/Blood Transfusion Reactions: Motion Sickness Additional Past Anesthesia/Blood Transfusion Reaction / Comment(s): Pt has received blood without reaction. Past Psychological History: Anxiety, Depression Smoking Status: Current every day smoker Past Alcohol Use History: Abuse, Daily, Heavy Past Drug Use History: Marijuana - Past Family History Mother Family Medical History: Cancer, Congestive Heart Failure (CHF), Coronary Artery Disease (CAD), Hyperlipidemia Additional Family Medical History / Comment(s): Mother at age 85 from lung cancer. Father Family Medical History: Cancer, COPD Additional Family Medical History / Comment(s): Father at age 63 from lung cancer. Brother(s) Additional Family Medical History / Comment(s): Patient has a total of 7 s iblings. 5 are alive without any major medical problems she is aware of. 2 siblings have one from alcohol abuse and 1. Coronary artery disease. Daughter(s) Family Medical History: No Reported History Additional Family Medical History / Comment(s): Patient has one daughter with no major medical problems. Medications and Allergies Home Medications Medication Instructions Recorded Confirmed Type Aspirin EC [Ecotrin Low Dose] 81 mg PO HS 02/11/19 02/26/24 History Simvastatin [Zocor] 40 mg PO HS 07/03/22 02/26/24 History Albuterol Nebulized [Ventolin 2.5 mg INHALATION RT-QID PRN 05/17/23 02/26/24 History Nebulized] Budesonide/Formoterol Fumarate 2 puff INHALATION RT-HS 07/29/23 02/26/24 History [Symbicort 160-4.5 Mcg Inhaler] Multivitamin [Multivitamins Adult 2 tab PO HS 12/04/23 02/26/24 History Gummies] Isosorbide Mononitrate ER [Imdur] 60 mg PO HS 30 Days #30 tab 12/07/23 02/26/24 Rx Metoprolol Succinate (ER) [Toprol 100 mg PO HS 30 Days #30 tab 12/07/23 02/26/24 Rx XL] Pantoprazole [Protonix] 40 mg PO HS 01/02/24 02/26/24 History Ipratropium-Albuterol Nebulize 3 ml INHALATION RT-Q2H PRN each 01/07/24 02/26/24 Rx [Duoneb 0.5 mg-3 mg/3 ml Soln] Ipratropium-Albuterol Nebulize 3 ml INHALATION RT-QID #100 each 01/07/24 02/26/24 Rx [Duoneb 0.5 mg-3 mg/3 ml Soln] Ondansetron Odt [Zofran ODT] 4 mg PO Q8HR PRN #20 tab 01/07/24 02/26/24 Rx Ibuprofen [Motrin Ib] 400 mg PO Q8H PRN 01/15/24 02/26/24 History Ibuprofen [Motrin Ib] 600 mg PO HS 01/15/24 02/26/24 History Brimonidine Tartrate [Alphagan P 1 drop BOTH EYES HS 02/02/24 02/26/24 History 0.2% Ophth Soln] Fluticasone Nasal Butler [Flonase 2 spray EA NOSTRIL HS 02/02/24 02/26/24 History Nasal Butler] Artificial Tears-Hypromellose 1 drops BOTH EYES TID PRN #5 ml 02/14/24 02/26/24 Rx [Artificial Tear Drops] Famotidine [Pepcid] 20 mg PO HS 02/19/24 02/26/24 History Nicotine 14Mg/24Hr Patch [Habitrol] 1 patch TRANSDERM HS 02/19/24 02/26/24 History Thiamine [Vitamin B-1] 100 mg PO HS 02/19/24 02/26/24 History Ticagrelor [Brilinta] 90 mg PO HS 02/26/24 02/26/24 History Allergies Allergy/AdvReac Type Severity Reaction Status Date / Time Tyrrell And Derivatives Allergy Rash/Hives Verified 02/26/24 14:22 [Tyrrell] latex Allergy Rash/Hives Verified 02/26/24 14:22 Influenza Virus Vaccines AdvReac Nausea & Verified 02/26/24 14:22 Vomiting morphine AdvReac Nausea & Verified 02/26/24 14:22 Vomiting tomato AdvReac Diarrhea Verified 02/26/24 14:22 Physical Exam Vitals: Vital Signs Temp Pulse Resp BP Pulse Ox 02/27/24 07:43 98.2 F 69 18 143/81 96 02/27/24 05:31 77 18 135/80 98 02/27/24 04:40 63 02/27/24 04:30 63 02/27/24 04:17 98.2 F 74 20 108/61 98 02/27/24 03:32 98.0 F 72 20 90/61 94 L 02/26/24 22:58 98.4 F 99 18 101/67 94 L 02/26/24 20:12 100 02/26/24 19:58 106 H 02/26/24 18:04 113 H 18 144/90 96 02/26/24 16:14 80 18 02/26/24 16:08 80 18 02/26/24 14:53 90 18 179/112 97 02/26/24 10:39 97.6 F 59 L 20 126/85 96 Results 02/27/24 08:10 02/27/24 08:10 Cardiac Enzymes 02/26/24 02/26/24 02/26/24 Range/Units 11:03 11:03 15:39 AST 128 H (14-36) U/L Troponin I 0.015 0.013 (0.000-0.034) ng/mL 02/26/24 Range/Units 18:29 AST (14-36) U/L Troponin I <0.012 (0.000-0.034) ng/mL Coagulation 02/26/24 Range/Units 11:03 PT 11.1 (10.0-12.5) sec APTT 24.6 (22.0-30.0) sec CBC 02/26/24 Range/Units 11:03 WBC 5.1 (3.8-10.6) k/uL RBC 4.37 (3.80-5.40) m/uL Hgb 13.5 (11.4-16.0) gm/dL Hct 42.4 (34.0-46.0) % Plt Count 265 D (150-450) k/uL Comprehensive Metabolic Panel 02/26/24 Range/Units 11:03 Sodium 144 (137-145) mmol/L Potassium 3.5 (3.5-5.1) mmol/L Chloride 106 (98-107) mmol/L Carbon Dioxide 23 (22-30) mmol/L BUN 7 (7-17) mg/dL Creatinine 0.61 (0.52-1.04) mg/dL Glucose 115 H (74-99) mg/dL Calcium 8.4 (8.4-10.2) mg/dL AST 128 H (14-36) U/L ALT 78 H (4-34) U/L Alkaline Phosphatase 220 H (38-126) U/L Total Protein 6.5 (6.3-8.2) g/dL Albumin 3.7 (3.5-5.0) g/dL Current Medications Generic Name Dose Route Start Last Admin Trade Name Freq PRN Reason Stop Dose Admin Albuterol Sulfate 2.5 mg 02/26/24 15:52 02/27/24 04:28 Albuterol Nebulized 2.5 Mg/3 Ml INHALATION 2.5 mg RT-QID PRN Administration Shortness Of Breath Albuterol/Ipratropium 3 ml 02/26/24 16:00 02/26/24 19:57 Ipratropium-Albuterol 3 Ml Neb INHALATION 3 ml RT-QID MAGY Administration Albuterol/Ipratropium 3 ml 02/26/24 15:52 Ipratropium-Albuterol 3 Ml Neb INHALATION RT-Q2H PRN Shortness Of Breath Or Wheezing Artificial Tears 1 drops 02/26/24 15:52 Artificial Tears-Hypromellose Drops 15 Ml Btl BOTH EYES TID PRN Dry Eye(s) Aspirin 81 mg 02/26/24 21:00 02/26/24 20:35 Aspirin 81 Mg PO 81 mg HS MAGY Administration Atorvastatin Calcium 20 mg 02/26/24 21:00 02/26/24 20:35 Atorvastatin 20 Mg Tab PO 20 mg HS MAGY Administration Brimonidine Tartrate 1 drops 02/26/24 21:00 02/26/24 20:45 Brimonidine Tartrate 0.2% Drops 5 Ml Btl BOTH EYES 1 drops HS MAGY Administration Budesonide/Formoterol Fumarate 2 puff 02/26/24 20:00 02/26/24 19:57 Symbicort 160-4.5 Mcg Inhaler INHALATION 2 puff RT-HS MAGY Administration Famotidine 20 mg 02/26/24 21:00 02/26/24 20:35 Famotidine 20 Mg Tab PO 20 mg HS MAGY Administration Fluticasone Propionate 2 spray 02/26/24 21:00 02/26/24 20:45 Fluticasone 50mcg/Butler Nasal 16gm EA NOSTRIL 2 spray HS MAGY Administration Isosorbide Mononitrate 60 mg 02/26/24 21:00 02/26/24 20:35 Isosorbide Mononitrate Er 60 Mg Tab.Er.24h PO 60 mg HS MAGY Administration Lorazepam 0.5 mg 02/26/24 14:16 02/26/24 15:05 Lorazepam 0.5 Mg Tab PO 0.5 mg Q4HR PRN Administration Ciwa 4 To 5 Lorazepam 1 mg 02/26/24 14:16 02/26/24 23:06 Lorazepam 1 Mg Tab PO 1 mg Q4HR PRN Administration Ciwa 6 To 7 Lorazepam 2 mg 02/26/24 14:16 Lorazepam 2 Mg/Ml Inj IV 02/28/24 14:17 Q10M PRN CIWA 16 or higher Lorazepam 1 mg 02/26/24 14:16 02/26/24 20:34 Lorazepam 2 Mg/Ml Inj IV 1 mg Q2HR PRN Administration CIWA 8 or 9 Lorazepam 1 mg 02/26/24 14:16 Lorazepam 2 Mg/Ml Inj IV Q1HR PRN CIWA 10 to 15 Metoprolol Succinate 100 mg 02/26/24 21:00 02/26/24 20:35 Metoprolol Succinate (Er) 100 Mg Tab.Er.24h PO 100 mg HS MAGY Administration Multivitamins 1 each 02/26/24 21:00 02/26/24 20:35 Multivitamins, Thera 1 Each Tab PO 1 each HS MAGY Administration Naloxone HCl 0.2 mg 02/26/24 14:11 Naloxone 0.4 Mg/Ml 1 Ml Vial IV Q2M PRN Opioid Reversal Nicotine 1 patch 02/26/24 21:00 02/26/24 20:34 Nicotine 14mg/24hr Patch TRANSDERM 1 patch HS MAGY Administration Ondansetron HCl 4 mg 02/26/24 14:11 02/26/24 23:42 Ondansetron 4 Mg/2 Ml Vial IVP 4 mg Q8HR PRN Administration Nausea And Vomiting Pantoprazole Sodium 40 mg 02/26/24 15:53 02/26/24 20:35 Pantoprazole 40 Mg/10 Ml Vial IVP Not Given BID MAGY Thiamine HCl 100 mg 02/27/24 09:00 Thiamine 100 Mg Tab PO DAILY MAGY Ticagrelor 90 mg 02/26/24 21:00 02/26/24 20:35 Ticagrelor 90 Mg Tab PO 90 mg HS MAGY Administration 02/26/24 11:03 02/26/24 11:03
[2024-02-27] MEDS: THIAMINE 100 MG TAB PO SCH (10:34)
[2024-02-27] MEDS ORDERED: DOBUTamine DRIP for NUC MED 500 MG/250 ML BAG IV ONE (11:06)
--- NOTE | 2024-02-27 11:49 | CA ---
Dobutamine Stress Echocardiogram Report Anna Marie Valladares Age: 64 Gender: F : 1960 Exam Date: 02/27/2024 10:59 Exam Location: [place] [facility] Ordering Physician: Gladis Vieyra Referring Physician: Jarrell [employer] Representative: KENDAL, Technologist: Ht (in): Wt (lb): Procedure CPT: Indication: Chest Pain ICD-9 Codes: Rhythm: Patient History: Chest pain, Shortness of breath and palpitations. History of MO and CVA. Cardiac Medications: Medications in past 24 hours: Contrast: Total Dose (mL): Stress Results Protocol: Dobutamine Peak Dose (???g/kg/min): 30 Duration (min:sec): Atropine:(mg) N/A Target HR: 133 Double Product: Resting HR: 76 Resting BP: 155 / 86 Peak HR: 142 Peak BP: 143 / 76 Max Predicted HR: 157 90 % Max Predicted HR Stress Summary: BP Response: Reason for Termination: Exceeded target heart rate (85% max predicted) Cardiac Symptoms: No symptoms ECG Analysis Resting EKG: Normal sinus rhythm normal axis normal intervals Stress EKG: Patient was given intravenous dobutamine as per protocol achieving 85% of predicted maximum heart rate without chest pain at peak dobutamine infusion there was [address] segment depression noted in inferolateral leads Arrhythmia: Echo Analysis Base Echo Analysis: Normal left ventricular size and systolic function mild hypokinesis involving the basal inferior wall Low Echo Anaylsis: Normal response Peak Echo Analysis: Normal hyperdynamic response of all segments of myocardium except the basal inferior wall which remains unchanged Recovery Echo: Normal MEASUREMENTS (Male/Female) Normal Values CONCLUSIONS Normal stress test by EKG criteria No evidence of dobutamine-induced wall motion abnormality Dr. Unruly Howard MD (Electronically Signed) Final Date: 27 February 2024 11:48
[2024-02-27] MEDS ORDERED: Magnesium Replacement Protocol 1 EACH MISC MISCELLANE PRN (13:55)
[2024-02-27] MEDS ORDERED: Potassium Replacement Protocol 1 EACH MISC MISCELLANE PRN (13:55)
--- NOTE | 2024-02-27 14:42 | PN ---
PROGRESS NOTE DATE OF SERVICE: 02/27/2024 SUBJECTIVE: This 64-year-old woman was admitted with acute alcohol intoxication, is also complaining of abdominal pain. Cardiology performed a dobutamine stress which was normal. No chest pain, no palpitation. OBJECTIVE: VITAL SIGNS: Pulse is 90, blood pressure 120/83, respirations 16. CHEST: Clear to auscultation. CARDIOVASCULAR: S1, S2. ABDOMEN: Soft. NERVOUS SYSTEM: Diffuse tremors present. LABORATORY DATA: Noted. ASSESSMENT: 1. Acute alcohol intoxication. 2. Upper abdominal and chest pain with negative dobutamine stress echo. 3. Possible acute gastritis. 4. History of CAD. 5. COPD. 6. Multiple medical issues. RECOMMENDATIONS: Recommended to continue current management, continue symptomatic treatment. Continue the CIWA protocol and Librium. Repeat labs in the morning. Supplement potassium. Guarded prognosis. Multiple complex medical issues. Further recommendations to follow. See orders details. MMODL / IJN: [id number] /
[2024-02-27] MEDS: chlordiazePOXIDE 25 MG CAP PO SCH (14:58)
[2024-02-27] MEDS: POTASSIUM CHLORIDE ER 20 MEQ TAB.ER PO SCH (14:58)
--- NOTE | 2024-02-27 17:54 | CA ---
Transthoracic Echo Report Name: Anna Marie Valladares Age: 64 Gender: F : 1960 Exam Date: 02/27/2024 11:23 Exam Location: [facility] Ht (in): 62 Wt (lb): 169 Ordering Physician: Gladis Vieyra Attending/Referring Phys: [id number], Jarrell Foiling Machine Adjuster Arianna Adamson RDCS Procedure CPT: Indications: LVF Cardiac Hx: Technical Quality: Fair Contrast 1: Total Dose (mL): Contrast 2: Total Dose (mL): MEASUREMENTS (Male / Female) Normal Values 2D ECHO LV Diastolic Diameter PLAX 4.3 cm 4.2 - 5.9 / 3.9 - 5.3 cm LV Systolic Diameter PLAX 3.0 cm IVS Diastolic Thickness 1.5 cm 0.6 - 1.0 / 0.6 - 0.9 cm LVPW Diastolic Thickness 1.4 cm 0.6 - 1.0 / 0.6 - 0.9 cm LV Relative Wall Thickness 0.7 RV Internal Dim ED PLAX 3.8 cm LA Volume 33.0 cm??? 18 - 58 / 22 - 52 cm??? LA Volume Index 17.7 cm???/m??? 16 - 28 cm???/m??? M-MODE Aortic Root Diameter MM 2.9 cm LA Systolic Diameter MM 3.8 cm LA Ao Ratio MM 1.3 DOPPLER AV Peak Velocity 172.9 cm/s AV Peak Gradient 12.0 mmHg AV Mean Velocity 111.4 cm/s AV Mean Gradient 5.9 mmHg AV Velocity Time Integral 26.3 cm LVOT Peak Velocity 130.4 cm/s LVOT Peak Gradient 6.8 mmHg LVOT Velocity Time Integral 23.5 cm MV Area PHT 3.9 cm??? Mitral E Point Velocity 62.3 cm/s Mitral A Point Velocity 96.7 cm/s Mitral E to A Ratio 0.6 MV Deceleration Time 195.5 ms MV E' Velocity 4.4 cm/s Mitral E to MV E' Ratio 14.3 TR Peak Velocity 216.4 cm/s TR Peak Gradient 18.7 mmHg Right Ventricular Systolic Press 22.3 mmHg FINDINGS Left Ventricle Moderately increased left ventricular wall thickness. Left ventricular cavity size normal. Normal left ventricular systolic function with no obvious regional wall motion abnormalities. Left ventricular ejection fraction is estimated at 55-60 %. Grade 1 diastolic dysfunction. Right Ventricle Mild right ventricular dilatation. Right ventricular systolic pressure within normal limits. Right Atrium Normal right atrial size. Left Atrium Normal left atrial size. Mitral Valve Structurally normal mitral valve. Mild mitral annular calcification. Mild mitral regurgitation. Aortic Valve Trileaflet aortic valve. No aortic valve stenosis or regurgitation. Tricuspid Valve Structurally normal tricuspid valve. Trace to mild tricuspid regurgitation. Pulmonic Valve Structurally normal pulmonic valve. Pericardium No pericardial effusion. Aorta Normal size aortic root and proximal ascending aorta. CONCLUSIONS Normal LV function Mild mitral regurg Previewed by: Dr. Unruly Howard MD (Electronically Signed) Final Date: 27 February 2024 17:53
[2024-02-27] MEDS: IBUPROFEN 400 MG TAB PO PRN (23:48)
[2024-02-28 06:31] LABS: Anisocytosis Slight; Basophils % (A) 2 %; Eosinophils % (A) 2 %; HCT 33.5 % (34.0-46.0); HGB 10.4 gm/dL (11.4-16.0); Hypochromasia Moderate; Lymphocytes # (A) 0.6 k/uL (1.0-4.8); Lymphocytes % (A) 28 %; MCH 31.4 pg (25.0-35.0); MCHC 31.1 g/dL (31.0-37.0); MCV 100.9 fL (80.0-100.0); Macrocytosis Slight; Mean Platelet Volume 7.8; Monocytes # (A) 0.2 k/uL (0-1.0); Monocytes % (A) 6 %; Neutrophils # (A) 1.4 k/uL (1.3-7.7); Neutrophils % (A) 60 %; RBC 3.32 m/uL (3.80-5.40); RDW 16.6 % (11.5-15.5); WBC 2.3 k/uL (3.8-10.6)
[2024-02-28 07:29] LABS: Platelet Count 91 k/uL (150-450)
[2024-02-28] MEDS: SYMBICORT 160-4.5 MCG INHALER INHALATION SCH (08:45)
[2024-02-28 09:06] LABS: Blood Urea Nitrogen 5.1 mg/dL (9.0-27.0); Carbon Dioxide 26.8 mmol/L (21.6-31.8); Chloride 101 mmol/L (96-109); Glucose 95 mg/dL (70-110); Magnesium 1.7 mg/dL (1.5-2.4); Potassium 3.5 mmol/L (3.5-5.5); Sodium 138 mmol/L (135-145)
[2024-02-28 09:07] LABS: ALT 49 U/L (8-44); AST 69 U/L (13-35); Albumin 3.3 g/dL (3.8-4.9); Albumin/Globulin Ratio 1.65 Ratio (1.60-3.17); Alkaline Phosphatase 181 U/L (41-126); Calcium 8.4 mg/dL (8.7-10.3); Total Bilirubin 0.6 mg/dL (0.3-1.2); Total Protein 5.3 g/dL (6.2-8.2)
--- NOTE | 2024-02-28 10:36 | P.PN ---
Subjective Progress Note Date: 02/28/24 Reason for Consult (text): history of CAD History of present illness: This is a 64-year-old female patient of Dr. Veena Howard with past medical history of coronary artery disease with chronic total occlusion of the right coronary artery, mild to moderate mitral regurgitation, history of recurrent CVAs status post left carotid stenting, tobacco use, hypertension, hyperlipidemia, alcohol abuse, cirrhosis of the liver. We have been asked to evaluate the patient for history of CAD. Patient states that she developed chest pain and thought that she was having a heart attack. She then developed abdominal pain and upset stomach thought she had a food virus. She had some nausea and vomiting but none since she arrived here. She also states that she has had similar symptoms since she was a child. Patient presented to the emergency center with alcohol intoxication and has been started on the CIWA protocol. She continues to smoke. EKG sinus rhythm with T wave changes Chest x-ray: Hyperinflation. No acute process. Hemoglobin 11. Sodium 134, potassium 3.4, creatinine 0.62. Elevated liver function test with AST 93, ALT 51, alkaline phosphatase 186. Troponin negative x 3. Serum alcohol 352. Home cardiac medications: Aspirin 81 mg daily, Imdur 60 mg at bedtime, Toprol-XL 100 mg at bedtime, Nitrostat as needed, simvastatin 40 mg at bedtime, Brilinta 90 mg at bedtime. Cardiac catheterization performed 02/06/[address] Veena Howard revealed chronic total occlusion of the right coronary artery. No significant obstructive coronary artery disease involving the LAD which is where the stress test was abnormal. Echocardiogram performed 02/03/2024 revealed normal left ventricular size and systolic function. 02/27 Yesterday, patient underwent dobutamine stress echocardiogram which was normal. Echocardiogram reveals EF of 55 to 60%. Mild mitral regurgitation. Blood pressure 132/88, heart rate 86, pulse ox 97% on room air. Patient denies having any chest pain at this time. Physical examination: Gen: This is a 64-year-old female appears to be in no acute distress VS: reviewed HEENT: Head is atraumatic, normocephalic. Pupils equal, round. Sclerae is anicteric. NECK: Supple. No JVD. . LUNGS: Clear to auscultation. No wheezes or rhonchi. No intercostal retractions. HEART: Regular rate and rhythm. Systolic murmur. ABDOMEN: Soft No tenderness. EXTREMITIES: No pedal edema. No calf tenderness. NEUROLOGICAL: Patient is awake, alert and oriented x3. Assessment: Atypical chest pain, acute coronary syndrome ruled out Alcohol intoxication History of coronary artery disease with known chronic total occlusion of the right coronary artery history of CVA History of carotid stenosis status post left carotid stenting Hypertension Hyperlipidemia Tobacco use and dependence Plan: Continue patient's home cardiac medications Patient is cleared for discharge home and may follow up with Dr. Veena Howard in the office in 1 to 2 weeks. Nurse practitioner note has been reviewed, I agree with documented findings and plan of care. Patient was seen and examined. Objective - Vital Signs Vital signs: Vital Signs Temp 97.9 F 02/28/24 03:32 Pulse 71 02/28/24 03:32 Resp 16 02/28/24 03:32 BP 102/64 02/28/24 03:32 Pulse Ox 96 02/28/24 03:32 FiO2 Intake & Output 02/27/24 02/28/24 02/28/24 18:59 06:59 18:59 Intake Total 118 Balance 118 Weight 76.657 kg Intake: Oral 118 Other: Voiding Method Toilet # Voids 2 1 - Labs CBC & Chem 7: 02/28/24 05:51 02/28/24 05:51 Labs: Abnormal Lab Results - Last 24 Hours (Table) 02/27/24 02/27/24 02/28/24 Range/Units 08:10 08:10 05:51 WBC 2.3 L (3.8-10.6) k/uL RBC 3.50 L 3.32 L (3.80-5.40) m/uL Hgb 11.0 L 10.4 L (11.4-16.0) gm/dL Hct 33.9 L 33.5 L (34.0-46.0) % MCV 100.9 H (80.0-100.0) fL RDW 17.1 H 16.6 H (11.5-15.5) % Plt Count 121 L D 91 L (150-450) k/uL Lymphocytes # 0.8 L 0.6 L (1.0-4.8) k/uL Sodium 134 L (137-145) mmol/L Potassium 3.4 L (3.5-5.1) mmol/L Calcium 8.1 L (8.4-10.2) mg/dL AST 93 H (14-36) U/L ALT 51 H (4-34) U/L Alkaline Phosphatase 186 H (38-126) U/L Total Protein 5.5 L (6.3-8.2) g/dL Albumin 3.1 L (3.5-5.0) g/dL
[2024-02-28 14:25] VITALS: BP 136/90; PULSE 82; RESP 18; TEMP 98.3
--- NOTE | 2024-03-06 06:34 | P.DS ---
Providers Date of admission: 02/27/24 13:55 Expected date of discharge: 02/28/24 Attending physician: Travis Barron MD Consults: 02/26/24 15:52 Consult Physician Routine Consulting Provider: Parish Kay Consult Reason/Comments: h/o cad Do you want consulting provider notified?: Yes Primary care physician: [facility] Course: Final diagnosis Acute alcohol intoxication Upper abdominal and chest pain with negative stress test echo likely acute gastritis History of coronary artery disease COPD history, not in exacerbation Continued ongoing alcohol abuse Continued ongoing nicotine abuse Obesity with a BMI of 30.9 GI prophylaxis DVT prophylaxis Full code Discharge disposition Patient is being discharged in a stable condition with guarded prognosis to home. Patient will follow-up with Dr. Sherman Cardoza in the outpatient setting upon discharge. Patient is to continue with current medications as prescribed and outpatient follow-up with cardiology as scheduled. Total time taken is greater than 35 minutes. Hospital course This is a 64-year-old female who was recently admitted with chest pain and acute alcohol intoxication being closely monitored. Patient placed on CIWA protocol and electrolytes were replaced per protocol with improvement in potassium and magnesium. Patient evaluated by cardiology recommending outpatient follow-up and continuing with medication compliance. Patient reports to feeling improved and adamant about going home. Currently no reports of chest pain, shortness of breath, or palpitations. Patient is afebrile. No reports of nausea or vomiting and patient is tolerating diet. Patient will be discharged home today. Guarded prognosis and high risk for readmissions given patient's noncompliance Physical exam: Gen: This is a 64-year-old female who is awake, alert and oriented x 3, well- developed, well-nourished, obese, elderly appearing HEENT: Head is atraumatic, normocephalic. Pupils equal, round. Sclerae is anict canelo. NECK: Supple. No JVD. No lymphadenopathy. No thyromegaly. LUNGS: Diminished breath sounds bilaterally with some coarse scattered rhonchi. No intercostal retractions. HEART: Regular rate and rhythm. No murmur. ABDOMEN: Soft. Obese. Bowel sounds are present. No masses. No tenderness. EXTREMITIES: No pedal edema. No calf tenderness. NEUROLOGICAL: Patient is awake, alert and oriented x3. Cranial nerves 2 through 12 are grossly intact. Please refer to medication reconciliation sheet for a list of medications. The impression and plan of care has been dictated by Tonya Adan, Nurse Practitioner as directed. Dr. Sony MD I have performed a history and examination and MDM of this patient, discussed the same with the dictator, and agree with the dictator's assessment and plan as written ,documented as a scribe. Based on total visit time, I have performed more than 50% of the visit. Patient Condition at Discharge: Stable Plan - Discharge Summary New Discharge Prescriptions: Continue Aspirin EC [Ecotrin Low Dose] 81 mg PO HS Budesonide/Formoterol Fumarate [Symbicort 160-4.5 Mcg Inhaler] 2 puff INHALATION RT-HS Multivitamin [Multivitamins Adult Gummies] 2 tab PO HS Metoprolol Succinate (ER) [Toprol XL] 100 mg PO HS 30 Days #30 tab Ipratropium-Albuterol Nebulize [Duoneb 0.5 mg-3 mg/3 ml Soln] 3 ml INHALATION RT-QID #100 each Ipratropium-Albuterol Nebulize [Duoneb 0.5 mg-3 mg/3 ml Soln] 3 ml INHALATION RT-Q2H PRN each PRN Reason: Shortness Of Breath Or Wheezing Ibuprofen [Motrin Ib] 400 mg PO Q8H PRN PRN Reason: Pain Ibuprofen [Motrin Ib] 600 mg PO HS Artificial Tears-Hypromellose [Artificial Tear Drops] 1 drops BOTH EYES TID PRN #5 ml PRN Reason: Dry Eye(S) Famotidine [Pepcid] 20 mg PO HS Thiamine [Vitamin B-1] 100 mg PO HS Simvastatin [Zocor] 40 mg PO HS Albuterol Nebulized [Ventolin Nebulized] 2.5 mg INHALATION RT-QID PRN PRN Reason: Shortness Of Breath Isosorbide Mononitrate ER [Imdur] 60 mg PO HS 30 Days #30 tab Pantoprazole [Protonix] 40 mg PO HS Ondansetron Odt [Zofran ODT] 4 mg PO Q8HR PRN #20 tab PRN Reason: Nausea Brimonidine Tartrate [Alphagan P 0.2% Ophth Soln] 1 drop BOTH EYES HS Fluticasone Nasal [place] [Flonase Nasal [place]] 2 spray EA NOSTRIL HS Nicotine 14Mg/24Hr Patch [Habitrol] 1 patch TRANSDERM HS Ticagrelor [Brilinta] 90 mg PO HS No Action chlordiazePOXIDE HCl [Librium] See Taper PO DIRECTED Discharge Medication List Aspirin EC [Ecotrin Low Dose] 81 mg PO HS 02/11/19 [History] Simvastatin [Zocor] 40 mg PO HS 07/03/22 [History] Albuterol Nebulized [Ventolin Nebulized] 2.5 mg INHALATION RT-QID PRN 05/17/23 [History] Budesonide/Formoterol Fumarate [Symbicort 160-4.5 Mcg Inhaler] 2 puff INHALATION RT-HS 07/29/23 [History] Multivitamin [Multivitamins Adult Gummies] 2 tab PO HS 12/04/23 [History] Isosorbide Mononitrate ER [Imdur] 60 mg PO HS 30 Days #30 tab 12/07/23 [Rx] Metoprolol Succinate (ER) [Toprol XL] 100 mg PO HS 30 Days #30 tab 12/07/23 [Rx] Pantoprazole [Protonix] 40 mg PO HS 01/02/24 [History] Ipratropium-Albuterol Nebulize [Duoneb 0.5 mg-3 mg/3 ml Soln] 3 ml INHALATION RT-Q2H PRN each 01/07/24 [Rx] Ipratropium-Albuterol Nebulize [Duoneb 0.5 mg-3 mg/3 ml Soln] 3 ml INHALATION RT-QID #100 each 01/07/24 [Rx] Ondansetron Odt [Zofran ODT] 4 mg PO Q8HR PRN #20 tab 01/07/24 [Rx] Ibuprofen [Motrin Ib] 400 mg PO Q8H PRN 01/15/24 [History] Ibuprofen [Motrin Ib] 600 mg PO HS 01/15/24 [History] Brimonidine Tartrate [Alphagan P 0.2% Ophth Soln] 1 drop BOTH EYES HS 02/02/24 [History] Fluticasone Nasal [place] [Flonase Nasal [place]] 2 spray EA NOSTRIL HS 02/02/24 [History] Artificial Tears-Hypromellose [Artificial Tear Drops] 1 drops BOTH EYES TID PRN #5 ml 02/14/24 [Rx] Famotidine [Pepcid] 20 mg PO HS 02/19/24 [History] Nicotine 14Mg/24Hr Patch [Habitrol] 1 patch TRANSDERM HS 02/19/24 [History] Thiamine [Vitamin B-1] 100 mg PO HS 02/19/24 [History] Ticagrelor [Brilinta] 90 mg PO HS 02/26/24 [History] chlordiazePOXIDE HCl [Librium] See Taper PO DIRECTED 02/29/24 [History] Follow up Appointment(s)/Referral(s): Aren Alexander DO [STAFF PHYSICIAN] - 1 Week Miya Johnson MD [Primary Care Provider] - 1-2 days Patient Instructions/Handouts: Chest Pain (DC), Alcohol Intoxication (DC), Abuse of Alcohol (ED) Activity/Diet/Wound Care/Special Instructions: Activity limited until follow-up Follow-up with primary care provider on discharge Follow-up with cardiology outpatient Continue taking medications as prescribed Continue Librium taper and do not drink any alcohol while taking this medication Avoid alcohol use and exposure Discharge/Stand Alone Forms: AA Meetings [facility], Outpatient Counseling, Inp Substance Abuse Facilities Discharge Disposition: HOME SELF-CARE
== END 2024-02-28 14:37 | disposition home or self-care (01) ==
LOC: EC 10:37 → 6NMEDSUR 14:34 → INTOOBSV 02-27 13:55 → OBSVTOIN 02-27 13:55 → UNDODISIN 02-28 14:37
PROVIDERS: ADMIT Internal Medicine; ATTEND Internal Medicine
DX: F10.129 Alcohol abuse with intoxication, unspecified (principal); R07.89 Other chest pain; R10.10 Upper abdominal pain, unspecified; I25.10 Atherosclerotic heart disease of native coronary artery without angina pectoris; J44.9 Chronic obstructive pulmonary disease, unspecified; E78.5 Hyperlipidemia, unspecified; I25.2 Old myocardial infarction; I25.82 Chronic total occlusion of coronary artery; I10 Essential (primary) hypertension; I34.0 Nonrheumatic mitral (valve) insufficiency; G40.909 Epilepsy, unspecified, not intractable, without status epilepticus; K74.60 Unspecified cirrhosis of liver; Z91.199 Patient's noncompliance with other medical treatment and regimen due to unspecified reason; F17.200 Nicotine dependence, unspecified, uncomplicated; Y90.8 Blood alcohol level of 240 mg/100 ml or more; E66.9 Obesity, unspecified; Z68.30 Body mass index [BMI] 30.0-30.9, adult; Z79.82 Long term (current) use of aspirin; Z79.51 Long term (current) use of inhaled steroids; Z79.02 Long term (current) use of antithrombotics/antiplatelets; Z79.1 Long term (current) use of non-steroidal anti-inflammatories (NSAID); Z91.040 Latex allergy status; Z88.5 Allergy status to narcotic agent; Z88.7 Allergy status to serum and vaccine; Z91.018 Allergy to other foods; Z95.828 Presence of other vascular implants and grafts; Z86.73 Personal history of transient ischemic attack (TIA), and cerebral infarction without residual deficits
CPT/HCPCS: 96376 ×3; 96374; 96375; 99285; 36415; 94640 ×6; 94760; 93005; 93306; 93351; 80053 ×3; 83690; 83735 ×2; 84484; 85025 ×3; 85610; 85730; 71046; G0378 ×3; G0480; S4990 ×2; J2060; J1250; J2405; C9113 ×2; 80320

== ENCOUNTER 2024-02-29 09:39 | Emergency (ER) | payer OTHER ==
[2024-02-29 09:59] VITALS: TEMP 97.6
--- NOTE | 2024-02-29 10:42 | ED ---
General Adult HPI - General Chief complaint: Chest Pain Stated complaint: Chest pain Time Seen by Provider: 02/29/24 09:40 Source: patient, EMS, RN notes reviewed, old records reviewed Mode of arrival: EMS Limitations: no limitations - History of Present Illness Initial comments: 64-year-old female presenting with alcohol intoxication and left upper chest pain. Patient was recently admitted to the hospital. She states she was discharged and does admit to going home and drinking vodka. She is presenting today with left upper chest pain. No associated vomiting or diaphoresis. No radiation. Abdominal pain. No fever. She does report productive cough. - Related Data Home Medications Medication Instructions Recorded Confirmed Aspirin EC [Ecotrin Low Dose] 81 mg PO HS 02/11/19 02/29/24 Simvastatin [Zocor] 40 mg PO HS 07/03/22 02/29/24 Albuterol Nebulized [Ventolin 2.5 mg INHALATION RT-QID PRN 05/17/23 02/29/24 Nebulized] Budesonide/Formoterol Fumarate 2 puff INHALATION RT-HS 07/29/23 02/29/24 [Symbicort 160-4.5 Mcg Inhaler] Multivitamin [Multivitamins Adult 2 tab PO HS 12/04/23 02/29/24 Gummies] Pantoprazole [Protonix] 40 mg PO HS 01/02/24 02/29/24 Ibuprofen [Motrin Ib] 400 mg PO Q8H PRN 01/15/24 02/29/24 Ibuprofen [Motrin Ib] 600 mg PO HS 01/15/24 02/29/24 Brimonidine Tartrate [Alphagan P 1 drop BOTH EYES HS 02/02/24 02/29/24 0.2% Ophth Soln] Fluticasone Nasal [place] [Flonase 2 spray EA NOSTRIL HS 02/02/24 02/29/24 Nasal [place]] Famotidine [Pepcid] 20 mg PO HS 02/19/24 02/29/24 Nicotine 14Mg/24Hr Patch [Habitrol] 1 patch TRANSDERM HS 02/19/24 02/29/24 Thiamine [Vitamin B-1] 100 mg PO HS 02/19/24 02/29/24 Ticagrelor [Brilinta] 90 mg PO HS 02/26/24 02/29/24 chlordiazePOXIDE HCl [Librium] See Taper PO DIRECTED 02/29/24 02/29/24 Previous Rx's Medication Instructions Recorded Isosorbide Mononitrate ER [Imdur] 60 mg PO HS 30 Days #30 tab 12/07/23 Metoprolol Succinate (ER) [Toprol 100 mg PO HS 30 Days #30 tab 12/07/23 XL] Ipratropium-Albuterol Nebulize 3 ml INHALATION RT-Q2H PRN each 01/07/24 [Duoneb 0.5 mg-3 mg/3 ml Soln] Ipratropium-Albuterol Nebulize 3 ml INHALATION RT-QID #100 each 01/07/24 [Duoneb 0.5 mg-3 mg/3 ml Soln] Ondansetron Odt [Zofran ODT] 4 mg PO Q8HR PRN #20 tab 01/07/24 Artificial Tears-Hypromellose 1 drops BOTH EYES TID PRN #5 ml 02/14/24 [Artificial Tear Drops] Allergies Allergy/AdvReac Type Severity Reaction Status Date / Time [place] And Derivatives Allergy Rash/Hives Verified 02/29/24 11:37 [[place]] latex Allergy Rash/Hives Verified 02/29/24 11:37 Influenza Virus Vaccines AdvReac Nausea & Verified 02/29/24 11:37 Vomiting morphine AdvReac Nausea & Verified 02/29/24 11:37 Vomiting tomato AdvReac Diarrhea Verified 02/29/24 11:37 Review of Systems ROS Statement: Those systems with pertinent positive or pertinent negative responses have been documented in the HPI. ROS Other: All systems not noted in ROS Statement are negative. Past Medical History Past Medical History: Asthma, Coronary Artery Disease (CAD), COPD, CVA/TIA, Eye Disorder, Hypertension, Liver Disease, Myocardial Infarction (DE), Seizure Disorder, Vascular Disorder Additional Past Medical History / Comment(s): Pt recently admitted to [facility] for diarrhea, ETOH abuse. 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 soon Last Myocardial Infarction Date:: aug 2018 History of Any Multi-Drug Resistant Organisms: None Reported Past Surgical History: Cholecystectomy, Heart Catheterization, Orthopedic Janna hilaria Additional Past Surgical History / Comment(s): L caratid stent, bilateral knee surgeries for tendon repair, bartholian cyst removed bilateral wrists, cataracts Past Anesthesia/Blood Transfusion Reactions: Motion Sickness Additional Past Anesthesia/Blood Transfusion Reaction / Comment(s): Pt has received blood without reaction. Past Psychological History: Anxiety, Depression Smoking Status: Current every day smoker Past Alcohol Use History: Abuse, Daily, Heavy Past Drug Use History: Marijuana - Past Family History Mother Family Medical History: Cancer, Congestive Heart Failure (CHF), Coronary Artery Disease (CAD), Hyperlipidemia Additional Family Medical History / Comment(s): Mother at age 85 from lung cancer. Father Family Medical History: Cancer, COPD Additional Family Medical History / Comment(s): Father at age 63 from lung cancer. Brother(s) Additional Family Medical History / Comment(s): Patient has a total of 7 siblings. 5 are alive without any major medical problems she is aware of. 2 siblings have one from alcohol abuse and 1. Coronary artery disease. Daughter(s) Family Medical History: No Reported History Additional Family Medical History / Comment(s): Patient has one daughter with no major medical problems. General Exam Limitations: no limitations General appearance: alert, in no apparent distress, appears intoxicated Head exam: Present: atraumatic, normocephalic Eye exam: Present: normal appearance, PERRL ENT exam: Present: normal exam Neck exam: Present: normal inspection. Absent: tenderness, meningismus Respiratory exam: Present: normal lung sounds bilaterally. Absent: respiratory distress, wheezes Cardiovascular Exam: Present: regular rate, normal rhythm GI/Abdominal exam: Present: soft. Absent: distended, tenderness, guarding Extremities exam: Present: normal inspection, normal capillary refill. Absent: pedal edema, calf tenderness Neurological exam: Present: alert, oriented X3, CN II-XII intact. Absent: motor sensory deficit Skin exam: Present: warm, dry, intact Course Vital Signs 02/29/24 02/29/24 09:40 12:07 Temperature 97.6 F Pulse Rate 76 76 Respiratory 20 18 Rate Blood Pressure 117/88 135/90 O2 Sat by Pulse 98 98 Oximetry Medical Decision Making - Medical Decision Making Was pt. sent in by a medical professional or institution (YESSY Lloyd, [employer], urgent care, hospital, or fci...) When possible be specific @ -No Did you speak to anyone other than the patient for history (EMS, parent, family, police, friend...)? What history was obtained from this source @ -No Did you review nursing and triage notes (agree or disagree)? Why? @ -I reviewed and agree with nursing and triage notes Were old charts reviewed (outside hosp., previous admission, EMS record, old EKG, old radiological studies, urgent care reports/EKG's, fci records)? Report findings @ -No old charts were reviewed Differential Chest Pain: Stable Angina, Unstable Angina, STEMI, NSTEMI Aortic Dissection, Pneumothorax, Musculoskeletal, Esophageal Spasm GERD, Cholecystitis, Pancreatitis, Zoster, this is not meant to be an all-inclusive list. EKG interpreted by me (3pts min.). @Sinus rhythm rate of 76, [place] interval 154, QRS duration 94, QTc [address] segment elevation, T wave inversion and subtle ST segment depression in the precordial leads. X-rays interpreted by me (1pt min.). @ -Chest x-ray negative for acute cardiopulmonary findings. CT interpreted by me (1pt min.). @ -None done U/S interpreted by me (1pt. min.). @ -None done What testing was considered but not performed or refused? (CT, X-rays, U/S, labs)? Why? @ -None What meds were considered but not given or refused? Why? @ -None Did you discuss the management of the patient with other professionals (professionals i.e. YESSY Lloyd, [employer], lab, RT, psych nurse, social service director, blue line trimmer, teacher, training and development officer, case consultant)? Give summary @ -No Was smoking cessation discussed for >3mins.? @ -No Was critical care preformed (if so, how long)? @ -No Were there social determinants of health that impacted care today? How? (Homelessness, low income, unemployed, alcoholism, drug addiction, transportation, low edu. Level, literacy, decrease access to med. care, fdc, rehab)? @ -No Was there de-escalation of care discussed even if they declined (Discuss DNR or withdrawal of care, Hospice)? DNR status @ -No What co-morbidities impacted this encounter? (DM, HTN, Smoking, COPD, CAD, Cancer, CVA, ARF, Chemo, Hep., AIDS, mental health diagnosis, sleep apnea, morbid obesity)? @Alcohol abuse Was patient admitted / discharged? Hospital course, mention meds given and route, prescriptions, significant lab abnormalities, going to OR and other pertinent info. @ -64-year-old female presenting with alcohol intoxication, left upper chest pain which has been intermittent. No associated vomiting or diaphoresis. No radiating symptoms. EKG is sinus rhythm without ST segment changes. Chest x- ray is clear. She has normal CBC, normal CMP, elevated alcohol at 270. Patient observed in the emergency department with stable vitals. No further chest pain. Patient eager for discharge. Undiagnosed new problem with uncertain prognosis? @ -No Drug Therapy requiring intensive monitoring for toxicity (Heparin, Nitro, Insuli n, Cardizem)? @ -No Were any procedures done? @ -No Diagnosis/symptom? @ -[Alcohol intoxication, atypical chest pain Acute, or Chronic, or Acute on Chronic? @Acute on chronic Uncomplicated (without systemic symptoms) or Complicated (systemic symptoms)? @ -Default Side effects of treatment? @ -No Exacerbation, Progression, or Severe Exacerbation? @ -No Poses a threat to life or bodily function? How? (Chest pain, USA, DE, pneumonia, PE, COPD, DKA, ARF, appy, cholecystitis, CVA, Diverticulitis, Homicidal, Suicidal, threat to staff... and all critical care pts) @ -Low risk at this time - Lab Data Result diagrams: 02/29/24 10:44 02/29/24 10:44 Lab Results 02/29/24 02/29/24 02/29/24 Range/Units 10:44 10:44 10:44 WBC 4.0 (3.8-10.6) k/uL RBC 3.76 L (3.80-5.40) m/uL Hgb 11.9 (11.4-16.0) gm/dL Hct 36.8 (34.0-46.0) % MCV 97.9 (80.0-100.0) fL MCH 31.6 (25.0-35.0) pg MCHC 32.3 (31.0-37.0) g/dL RDW 16.7 H (11.5-15.5) % Plt Count 99 L (150-450) k/uL MPV 8.7 Neutrophils % 50 % Lymphocytes % 32 % Monocytes % 7 % Eosinophils % 4 % Basophils % 2 % Neutrophils # 2.0 (1.3-7.7) k/uL Lymphocytes # 1.3 (1.0-4.8) k/uL Monocytes # 0.3 (0-1.0) k/uL Eosinophils # 0.2 (0-0.7) k/uL Basophils # 0.1 (0-0.2) k/uL Anisocytosis Slight Macrocytosis Slight PT 11.0 (10.0-12.5) sec INR 1.0 (<1.2) APTT 26.2 (22.0-30.0) sec Sodium 144 (137-145) mmol/L Potassium 3.5 (3.5-5.1) mmol/L Chloride 111 H (98-107) mmol/L Carbon Dioxide 19 L (22-30) mmol/L Anion Gap 14 mmol/L BUN <2 L (7-17) mg/dL Creatinine 0.45 L (0.52-1.04) mg/dL Est GFR (CKD-EPI)AfAm >90 (>60 ml/min/1.73 sqM) Est GFR (CKD-EPI)NonAf >90 (>60 ml/min/1.73 sqM) Glucose 99 (74-99) mg/dL Calcium 8.5 (8.4-10.2) mg/dL Magnesium 1.7 (1.6-2.3) mg/dL Total Bilirubin 0.3 (0.2-1.3) mg/dL AST 93 H (14-36) U/L ALT 60 H (4-34) U/L Alkaline Phosphatase 189 H (38-126) U/L Troponin I (0.000-0.034) ng/mL Total Protein 5.9 L (6.3-8.2) g/dL Albumin 3.3 L (3.5-5.0) g/dL Lipase 117 (23-300) U/L Serum Alcohol 271 H* mg/dL 02/29/24 Range/Units 10:44 WBC (3.8-10.6) k/uL RBC (3.80-5.40) m/uL Hgb (11.4-16.0) gm/dL Hct (34.0-46.0) % MCV (80.0-100.0) fL MCH (25.0-35.0) pg MCHC (31.0-37.0) g/dL RDW (11.5-15.5) % Plt Count (150-450) k/uL MPV Neutrophils % % Lymphocytes % % Monocytes % % Eosinophils % % Basophils % % Neutrophils # (1.3-7.7) k/uL Lymphocytes # (1.0-4.8) k/uL Monocytes # (0-1.0) k/uL Eosinophils # (0-0.7) k/uL Basophils # (0-0.2) k/uL Anisocytosis Macrocytosis PT (10.0-12.5) sec INR (<1.2) APTT (22.0-30.0) sec Sodium (137-145) mmol/L Potassium (3.5-5.1) mmol/L Chloride (98-107) mmol/L Carbon Dioxide (22-30) mmol/L Anion Gap mmol/L BUN (7-17) mg/dL Creatinine (0.52-1.04) mg/dL Est GFR (CKD-EPI)AfAm (>60 ml/min/1.73 sqM) Est GFR (CKD-EPI)NonAf (>60 ml/min/1.73 sqM) Glucose (74-99) mg/dL Calcium (8.4-10.2) mg/dL Magnesium (1.6-2.3) mg/dL Total Bilirubin (0.2-1.3) mg/dL AST (14-36) U/L ALT (4-34) U/L Alkaline Phosphatase (38-126) U/L Troponin I <0.012 (0.000-0.034) ng/mL Total Protein (6.3-8.2) g/dL Albumin (3.5-5.0) g/dL Lipase (23-300) U/L Serum Alcohol mg/dL Disposition Clinical Impression: Alcohol abuse, Atypical chest pain Disposition: HOME SELF-CARE Condition: Fair Instructions (If sedation given, give patient instructions): Chest Pain (ED), Alcohol Intoxication (DC) Is patient prescribed a controlled substance at d/c from ED?: No Referrals: Miya Johnson MD [Primary Care Provider] - 1-2 days Time of Disposition: 13:19
--- NOTE | 2024-02-29 11:16 | XR ---
EXAMINATION TYPE: XR chest 2V DATE OF EXAM: 02/29/2024 COMPARISON: 02/26/2024 INDICATION: Chest pain TECHNIQUE: Frontal and lateral views of the chest are obtained. FINDINGS: The heart size is normal. The pulmonary vasculature is normal. The lungs are clear. IMPRESSION: 1. No acute pulmonary process.
[2024-02-29 11:31] LABS: ALT 60 U/L (4-34); AST 93 U/L (14-36); African American GFR (CKD) >90 (>60 ml/min/1.73 sqM); Albumin 3.3 g/dL (3.5-5.0); Alkaline Phosphatase 189 U/L (38-126); Anion Gap 14 mmol/L; Blood Urea Nitrogen <2 mg/dL (7-17); Calcium 8.5 mg/dL (8.4-10.2); Carbon Dioxide 19 mmol/L (22-30); Chloride 111 mmol/L (98-107); Glucose 99 mg/dL (74-99); Lipase 117 U/L (23-300); Magnesium 1.7 mg/dL (1.6-2.3); Non-African American GFR(CKD) >90 (>60 ml/min/1.73 sqM); Potassium 3.5 mmol/L (3.5-5.1); Sodium 144 mmol/L (137-145); Total Bilirubin 0.3 mg/dL (0.2-1.3); Total Protein 5.9 g/dL (6.3-8.2)
[2024-02-29 11:37] LABS: Anisocytosis Slight; Basophils # (A) 0.1 k/uL (0-0.2); Basophils % (A) 2 %; Eosinophils # (A) 0.2 k/uL (0-0.7); Eosinophils % (A) 4 %; HCT 36.8 % (34.0-46.0); HGB 11.9 gm/dL (11.4-16.0); Lymphocytes # (A) 1.3 k/uL (1.0-4.8); Lymphocytes % (A) 32 %; MCH 31.6 pg (25.0-35.0); MCHC 32.3 g/dL (31.0-37.0); MCV 97.9 fL (80.0-100.0); Macrocytosis Slight; Mean Platelet Volume 8.7; Monocytes # (A) 0.3 k/uL (0-1.0); Monocytes % (A) 7 %; Neutrophils % (A) 50 %; RBC 3.76 m/uL (3.80-5.40); RDW 16.7 % (11.5-15.5)
[2024-02-29 11:47] LABS: Platelet Count 99 k/uL (150-450)
[2024-02-29 11:50] LABS: Alcohol 271 mg/dL
[2024-02-29 11:57] LABS: Partial Thromboplastin Time 26.2 sec (22.0-30.0)
[2024-02-29 12:55] VITALS: RESP 18
[2024-02-29 14:20] VITALS: BP 161/96; PULSE 86
== END 2024-02-29 13:48 | disposition home or self-care (01) ==
LOC: EC 09:39
DX: R07.89 Other chest pain (principal); F10.129 Alcohol abuse with intoxication, unspecified; F17.200 Nicotine dependence, unspecified, uncomplicated; F12.90 Cannabis use, unspecified, uncomplicated; Y90.8 Blood alcohol level of 240 mg/100 ml or more; Z88.5 Allergy status to narcotic agent; Z91.018 Allergy to other foods; Z88.8 Allergy status to other drugs, medicaments and biological substances; Z88.7 Allergy status to serum and vaccine
CPT/HCPCS: 36415; 93005; 80053; 83690; 83735; 84484; 85025; 85610; 85730; 71046; 99285; G0480; 80320

== ENCOUNTER 2024-03-02 20:48 | Observation (INO) | payer OTHER ==
[2024-03-02] MEDS ORDERED: HYDROmorphone 1 MG/ML 1 ML SYRINGE IVP STA (21:40)
[2024-03-02] MEDS ORDERED: ONDANSETRON 4 MG/2 ML VIAL IVP STA (21:40)
[2024-03-02] MEDS ORDERED: MORPHINE SULFATE 4 MG/ML SYRINGE IVP STA (21:40)
--- NOTE | 2024-03-02 21:53 | ED ---
Chest Pain HPI - General Chief Complaint: Chest Pain Stated Complaint: Foot pain Time Seen by Provider: 03/02/24 21:08 Source: patient, EMS Mode of arrival: EMS Limitations: no limitations - History of Present Illness Initial Comments: 64-year-old female presenting to the ED primarily with complaints of foot pain. Patient currently intoxicated history is limited secondary to this. Reportedly, EMS was called due to right foot pain. She reports known fracture of right fifth toe. Reportedly had additional injury to her right foot where she dropped her walker on that causing increased pain which is what initially caused EMS to be called. Upon arrival to scene, patient reported chest pains on the left side of her chest. She was given 324 of chewable aspirin. At this time, patient reports she is primarily here because of this right foot pain however also notes that chest pain is coming back. Of note, patient seen at this facility 2 days ago due to complaints of chest pain. Labs at this time showed a undetectable troponin. EKG showed a normal sinus rhythm patient was discharged home. - Related Data Home Medications Medication Instructions Recorded Confirmed Aspirin EC [Ecotrin Low Dose] 81 mg PO HS 02/11/19 02/29/24 Simvastatin [Zocor] 40 mg PO HS 07/03/22 02/29/24 Albuterol Nebulized [Ventolin 2.5 mg INHALATION RT-QID PRN 05/17/23 02/29/24 Nebulized] Budesonide/Formoterol Fumarate 2 puff INHALATION RT-HS 07/29/23 02/29/24 [Symbicort 160-4.5 Mcg Inhaler] Multivitamin [Multivitamins Adult 2 tab PO HS 12/04/23 02/29/24 Gummies] Pantoprazole [Protonix] 40 mg PO HS 01/02/24 02/29/24 Ibuprofen [Motrin Ib] 400 mg PO Q8H PRN 01/15/24 02/29/24 Ibuprofen [Motrin Ib] 600 mg PO HS 01/15/24 02/29/24 Brimonidine Tartrate [Alphagan P 1 drop BOTH EYES HS 02/02/24 02/29/24 0.2% Ophth Soln] Fluticasone Nasal [place] [Flonase 2 spray EA NOSTRIL HS 02/02/24 02/29/24 Nasal [place]] Famotidine [Pepcid] 20 mg PO HS 02/19/24 02/29/24 Nicotine 14Mg/24Hr Patch [Habitrol] 1 patch TRANSDERM HS 02/19/24 02/29/24 Thiamine [Vitamin B-1] 100 mg PO HS 02/19/24 02/29/24 Ticagrelor [Brilinta] 90 mg PO HS 02/26/24 02/29/24 chlordiazePOXIDE HCl [Librium] See Taper PO DIRECTED 02/29/24 02/29/24 Previous Rx's Medication Instructions Recorded Isosorbide Mononitrate ER [Imdur] 60 mg PO HS 30 Days #30 tab 12/07/23 Metoprolol Succinate (ER) [Toprol 100 mg PO HS 30 Days #30 tab 12/07/23 XL] Ipratropium-Albuterol Nebulize 3 ml INHALATION RT-Q2H PRN each 01/07/24 [Duoneb 0.5 mg-3 mg/3 ml Soln] Ipratropium-Albuterol Nebulize 3 ml INHALATION RT-QID #100 each 01/07/24 [Duoneb 0.5 mg-3 mg/3 ml Soln] Ondansetron Odt [Zofran ODT] 4 mg PO Q8HR PRN #20 tab 01/07/24 Artificial Tears-Hypromellose 1 drops BOTH EYES TID PRN #5 ml 02/14/24 [Artificial Tear Drops] Allergies Allergy/AdvReac Type Severity Reaction Status Date / Time [place] And Derivatives Allergy Rash/Hives Verified 03/02/24 21:13 [[place]] latex Allergy Rash/Hives Verified 03/02/24 21:13 Influenza Virus Vaccines AdvReac Nausea & Verified 03/02/24 21:13 Vomiting morphine AdvReac Nausea & Verified 03/02/24 21:13 Vomiting tomato AdvReac Diarrhea Verified 03/02/24 21:13 Review of Systems ROS Statement: Those systems with pertinent positive or pertinent negative responses have been documented in the HPI. ROS Other: All systems not noted in ROS Statement are negative. Past Medical History Past Medical History: Asthma, Coronary Artery Disease (CAD), COPD, CVA/TIA, Eye Disorder, Hypertension, Liver Disease, Myocardial Infarction (DC), Seizure Disorder, Vascular Disorder Additional Past Medical History / Comment(s): Pt recently admitted to [facility] for diarrhea, ETOH abuse. 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 soon Last Myocardial Infarction Date:: aug 2018 History of Any Multi-Drug Resistant Organisms: None Reported Past Surgical History: Cholecystectomy, Heart Catheterization, Orthopedic Surgery Additional Past Surgical History / Comment(s): L caratid stent, bilateral knee surgeries for tendon repair, bartholian cyst removed bilateral wrists, cataracts Past Anesthesia/Blood Transfusion Reactions: Motion Sickness Additional Past Anesthesia/Blood Transfusion Reaction / Comment(s): Pt has received blood without reaction. Past Psychological History: Anxiety, Depression Smoking Status: Current every day smoker Past Alcohol Use History: Abuse, Daily, Heavy Past Drug Use History: Marijuana - Past Family History Mother Family Medical History: Cancer, Congestive Heart Failure (CHF), Coronary Artery Disease (CAD), Hyperlipidemia Additional Family Medical History / Comment(s): Mother at age 85 from lung cancer. Father Family Medical History: Cancer, COPD Additional Family Medical History / Comment(s): Father at age 63 from lung cancer. Brother(s) Additional Family Medical History / Comment(s): Patient has a total of 7 siblings. 5 are alive without any major medical problems she is aware of. 2 siblings have one from alcohol abuse and 1. Coronary artery disease. Daughter(s) Family Medical History: No Reported History Additional Family Medical History / Comment(s): Patient has one daughter with no major medical problems. General Exam Limitations: no limitations Course Vital Signs 03/02/24 03/02/24 03/02/24 21:07 22:00 22:30 Temperature 97.7 F Pulse Rate 100 95 96 Respiratory 18 18 16 Rate Blood Pressure 77/59 118/82 120/77 O2 Sat by Pulse 93 L 94 L 95 Oximetry 03/02/24 23:00 Temperature Pulse Rate 107 H Respiratory 18 Rate Blood Pressure 98/84 O2 Sat by Pulse 95 Oximetry Chest Pain MDM - MDM Was pt. sent in by a medical professional or institution (, PA, DEPUTY PROBATION OFFICER, urgent care, hospital, or jail...) When possible be specific @ -No Did you speak to anyone other than the patient for history (EMS, parent, family, police, friend...)? What history was obtained from this source @ -No Did you review nursing and triage notes (agree or disagree)? Why? @ -I reviewed and agree with nursing and triage notes Were old charts reviewed (outside hosp., previous admission, EMS record, old EKG, old radiological studies, urgent care reports/EKG's, jail records)? Report findings @ -No old charts were reviewed Differential Diagnosis (chest pain, altered mental status, abdominal pain women, abdominal pain men, vaginal bleeding, weakness, fever, dyspnea, syncope, headache, dizziness, GI bleed, back pain, seizure, CVA, palpatations, mental health, musculoskeletal)? @ -Differential Chest Pain: Stable Angina, Unstable Angina, STEMI, NSTEMI Aortic Dissection, Pneumothorax, Musculoskeletal, Esophageal Spasm GERD, Cholecystitis, Pancreatitis, Zoster, this is not meant to be an all-inclusive list. Differential Musculoskeletal Muscular strain, contusion, ligament sprain, fracture, arthritis, septic arthritis, bursitis, cellulitis, muscle spasm, nerve compression, DVT, arterial occlusion, herpes zoster, electrolyte abnormality, tumor.... This is not meant to be in all inclusive list EKG interpreted by me (3pts min.). @ -EKG interpreted me showing a sinus rhythm nonspecific findings which does look largely similar to prior and a rate of 93 bpm. SD 146, QRS 94, QT/QTc 374/45. X-rays interpreted by me (1pt min.). @ -X-ray of the chest interpreted me which revealed no evidence of acute finding. X-ray of the right foot interpreted me which does show right fifth metatarsal fracture which patient knows about. CT interpreted by me (1pt min.). @ -None done U/S interpreted by me (1pt. min.). @ -None done What testing was considered but not performed or refused? (CT, X-rays, U/S, labs)? Why? @ -None What meds were considered but not given or refused? Why? @ -None Did you discuss the management of the patient with other professionals (professionals i.e. , PA, DEPUTY PROBATION OFFICER, lab, RT, psych nurse, medical social consultant, linux solaris administrator, teacher, ecological technical officer, case assembler)? Give summary @ -Case discussed with Damaris, who accepts admission under [facility] Was smoking cessation discussed for >3mins.? @ -No Was critical care preformed (if so, how long)? @ -No Were there social determinants of health that impacted care today? How? (Homelessness, low income, unemployed, alcoholism, drug addiction, transportation, low edu. Level, literacy, decrease access to med. care, correction, rehab)? @ -No Was there de-escalation of care discussed even if they declined (Discuss DNR or withdrawal of care, Hospice)? DNR status @ -No What co-morbidities impacted this encounter? (DM, HTN, Smoking, COPD, CAD, Cancer, CVA, ARF, Chemo, Hep., AIDS, mental health diagnosis, sleep apnea, morbid obesity)? @ -None Was patient admitted / discharged? Hospital course, mention meds given and route, prescriptions, significant lab abnormalities, going to OR and other pertinent info. @ -Admission 64-year-old female presenting initially with complaints of right foot pain due to known right fifth metatarsal fracture however hurting it more after reportedly dropped walker on it. Upon EMS arrival did also note some chest pains. Laboratory studies reviewed. Labs including CBC and troponin unremarkable. Chemistry panel is significant for hypomagnesemia and hypokalemia which were repleted. Elevation of LFTs consistent with alcohol use as well. Chest x-ray revealed no evidence of acute finding. X-ray of the right foot did demonstrate this right fifth metatarsal fracture. Labs also significant for elevated alcohol at 327. Patient will be admitted secondary to alcohol intoxication with consults to cardiology and orthopedics. Undiagnosed new problem with uncertain prognosis? @ -No Drug Therapy requiring intensive monitoring for toxicity (Heparin, Nitro, Insulin, Cardizem)? @ -No Were any procedures done? @ -No Diagnosis/symptom? @ -Alcohol intoxication, chest pain, known right fifth metatarsal fracture. Acute, or Chronic, or Acute on Chronic? @ -Acute Uncomplicated (without systemic symptoms) or Complicated (systemic symptoms)? @ -Uncomplicated Side effects of treatment? @ -No Exacerbation, Progression, or Severe Exacerbation? @ -No Poses a threat to life or bodily function? How? (Chest pain, [place], [place], pneumonia, PE, COPD, DKA, ARF, appy, cholecystitis, CVA, Diverticulitis, Homicidal, Suicidal, threat to staff... and all critical care pts) @ -Unlikely Disposition Clinical Impression: Chest pain, Fracture of metatarsal of right foot, closed Disposition: ADMITTED IP TO THIS HOSP Referrals: Miya Johnson MD [Primary Care Provider] - 1-2 days Time of Disposition: 00:58
[2024-03-02 22:32] LABS: Anisocytosis Slight; Basophils # (A) 0.1 k/uL (0-0.2); Basophils % (A) 2 %; Eosinophils # (A) 0.1 k/uL (0-0.7); Eosinophils % (A) 3 %; HCT 34.6 % (34.0-46.0); HGB 11.3 gm/dL (11.4-16.0); Lymphocytes # (A) 1.8 k/uL (1.0-4.8); Lymphocytes % (A) 34 %; MCH 31.3 pg (25.0-35.0); MCHC 32.6 g/dL (31.0-37.0); MCV 96.2 fL (80.0-100.0); Macrocytosis Slight; Monocytes # (A) 0.2 k/uL (0-1.0); Monocytes % (A) 3 %; Neutrophils # (A) 2.9 k/uL (1.3-7.7); Neutrophils % (A) 56 %; RDW 17.1 % (11.5-15.5); WBC 5.3 k/uL (3.8-10.6)
[2024-03-02 22:33] LABS: Platelet Count 71 k/uL (150-450)
[2024-03-02 22:46] LABS: ALT 71 U/L (4-34); AST 123 U/L (14-36); African American GFR (CKD) >90 (>60 ml/min/1.73 sqM); Albumin 3.2 g/dL (3.5-5.0); Alkaline Phosphatase 183 U/L (38-126); Anion Gap 15 mmol/L; Blood Urea Nitrogen 18 mg/dL (7-17); Calcium 7.7 mg/dL (8.4-10.2); Carbon Dioxide 16 mmol/L (22-30); Chloride 113 mmol/L (98-107); Glucose 94 mg/dL (74-99); Magnesium 1.4 mg/dL (1.6-2.3); Non-African American GFR(CKD) 79 (>60 ml/min/1.73 sqM); Potassium 3.4 mmol/L (3.5-5.1); Sodium 144 mmol/L (137-145); Total Bilirubin 0.3 mg/dL (0.2-1.3); Total Protein 5.8 g/dL (6.3-8.2)
[2024-03-02] MEDS: KETOROLAC 15 MG/ML 1 ML VIAL IVP STA (22:46)
--- NOTE | 2024-03-02 22:47 | XR ---
EXAM: XR Chest, 2 Views CLINICAL HISTORY: ITS.REASON XR Reason: Chest Pain TECHNIQUE: Frontal and lateral views of the chest. COMPARISON: No relevant prior studies available. FINDINGS: Lungs: Unremarkable. No consolidation. Pleural space: Unremarkable. No pneumothorax. Heart: Unremarkable. No cardiomegaly. Mediastinum: Unremarkable. Normal mediastinal contour. Bones/joints: Unremarkable. No acute fracture. Vasculature: Calcified aorta. IMPRESSION: No acute findings in the chest.
--- NOTE | 2024-03-02 22:53 | XR ---
EXAM: XR Right Foot Complete, 3 or More Views CLINICAL HISTORY: ITS.REASON XR Reason: hx broken toe. New trauma TECHNIQUE: Frontal, lateral and oblique views of the right foot. COMPARISON: No relevant prior studies available. FINDINGS: Bones/joints: Nondisplaced fracture of the fifth metatarsal diaphysis. No dislocation. Soft tissues: Unremarkable. No radiopaque foreign body. IMPRESSION: Nondisplaced fracture of the fifth metatarsal diaphysis.
[2024-03-02 23:04] LABS: Alcohol 327 mg/dL
[2024-03-02 23:38] LABS: INR 0.9 (<1.2); Partial Thromboplastin Time 24.6 sec (22.0-30.0); Prothrombin Time 10.3 sec (10.0-12.5)
[2024-03-03] MEDS: MAGNESIUM SULFATE-D5W PMX 1 GM in DEXTROSE/WATER 1 100ML.BAG IVPB ONE (00:26)
[2024-03-03] MEDS ORDERED: NALOXONE 0.4 MG/ML 1 ML VIAL IV PRN (00:59)
[2024-03-03] MEDS ORDERED: ACETAMINOPHEN TAB 325 MG TAB PO PRN (00:59)
--- NOTE | 2024-03-03 01:14 | XR ---
EXAM: XR Pelvis, 1 or 2 Views CLINICAL HISTORY: ITS.REASON XR Reason: PAIN TECHNIQUE: Frontal view of the pelvis. COMPARISON: No relevant prior studies available. FINDINGS: Bones/joints: Osseous demineralization. No acute fracture. No dislocation. Soft tissues: Unremarkable. IMPRESSION: No fracture.
[2024-03-03] MEDS: POTASSIUM CHLORIDE 20 MEQ in WATER FOR INJECTION 1 100ML.BAG IVPB STA (01:27)
[2024-03-03] MEDS: SODIUM CHLORIDE 0.9% 1,000 ML IV SCH (01:29)
[2024-03-03] MEDS: THIAMINE 100 MG/ML 2 ML VIAL IM STA (01:29)
--- NOTE | 2024-03-03 01:36 | XR ---
EXAM: XR Lumbosacral Spine, 2 or 3 Views CLINICAL HISTORY: ITS.REASON XR Reason: back pain TECHNIQUE: Frontal and lateral views of the lumbar spine and sacrum. COMPARISON: No relevant prior studies available. FINDINGS: Vertebrae: Multilevel lumbar spondylosis. Straightening of the lumbar lordosis. Chronic compression deformities of L4 and L1. No spondylolisthesis. Sacrum/coccyx: Unremarkable as visualized. No acute fracture. Disc spaces: No acute findings. No significant narrowing. Soft tissues: Unremarkable. IMPRESSION: 1. Straightening of the lumbar lordosis. 2. Chronic compression deformities of L4 and L1.
[2024-03-03] MEDS: MELATONIN 5 MG TABLET PO STA (01:56)
[2024-03-03] MEDS: ALPRAZolam 0.5 MG TAB PO STA (04:58)
[2024-03-03 07:18] LABS: Appearance,Urine Clear (Clear); Bilirubin,Urine Negative (Negative); Blood,Urine Negative (Negative); Color,Urine Colorless; Glucose,Urine (UA) Negative (Negative); Ketones,Urine Negative (Negative); Leukocyte Esterase,Urine Negative (Negative); Nitrite,Urine Negative (Negative); PH, Urine 5.5 (5.0-8.0); Protein,Urine Negative (Negative); Specific Gravity,Urine 1.014 (1.001-1.035); Urobilinogen,Urine <2.0 mg/dL (<2.0)
[2024-03-03] MEDS: ONDANSETRON 4 MG/2 ML VIAL IVP PRN (08:11)
[2024-03-03] MEDS: LORazepam 2 MG/ML INJ IV PRN ×2 (08:11→17:15)
[2024-03-03] MEDS: ISOSORBIDE MONONITRATE ER 60 MG TAB.ER.24H PO SCH (10:20)
[2024-03-03] MEDS: TICAGRELOR 90 MG TAB PO SCH (10:20)
[2024-03-03] MEDS: METOPROLOL SUCCINATE (ER) 100 MG TAB.ER.24H PO SCH (10:20)
--- NOTE | 2024-03-03 10:40 | P.CRDCN ---
History of Present Illness History of present illness: HISTORY OF PRESENT ILLNESS: This is a 64-year-old female with a past medical history significant for coronary artery disease with chronic total occlusion of the RCA, mild to moderate mitral regurgitation, recurrent CVAs, carotid stenosis with left carotid stenting, hypertension, hyperlipidemia, liver cirrhosis, alcohol abuse, and nicotine dependence. Patient follows in the office with Dr. Howard. We have been asked to see the patient in consultation for chest pain. Patient examined a t the bedside in the emergency room. Patient initially presented to the hospital due to right foot pain. Apparently the patient dropped her walker on her foot. When EMS arrived the patient did report having an episode of chest pain. The patient was hospitalized last week for chest pain and underwent an echocardiogram and dobutamine stress test which was negative for ischemia. The patient was found to be acutely intoxicated upon arrival with an alcohol level of 327. The patient currently denies any chest pain or pressure. She denies any shortness of breath. Blood pressure is elevated at the time of examination. However the patient was hypotensive upon arrival with a blood pressure in the 70s. DIAGNOSTICS: - EKG reveals sinus mechanism with nonspecific ST-T wave changes, similar to previous EKG - Chest xray negative for acute findings - Laboratory data: WBC 5.3. Hemoglobin 11.3. Platelet count 71. Sodium 144. Potassium 3.4. BUN 18. Creatinine 0.80. Troponin negative x 3. AST 123. ALT 71. - Current home cardiac medications include Brilinta 90 mg at night, simvastatin 40 mg at night, metoprolol succinate 100 mg at night, Imdur 60 mg at night, aspirin 81 mg at night. - Most recent echocardiogram obtained in February 2024 revealing ejection fraction 55 to 60% with mild mitral regurgitation - Patient underwent dobutamine stress test on February 27, 2024 which was negative for ischemia - Cardiac catheterization history: January 2023 revealing chronic total occlusion of the RCA. No significant obstructive coronary disease involving the LAD. REVIEW OF SYSTEMS: At the time of my exam: CONSTITUTIONAL: Denies fever or chills. HEENT: Denies blurred vision, vision changes, or eye pain. Denies hemoptysis CARDIOVASCULAR: Denies chest pain. Denies orthopnea. Denies PND. Denies palpitations RESPIRATORY: Denies shortness of breath. GASTROINTESTINAL: Denies abdominal pain. Denies nausea or vomiting. HEMATOLOGIC: Denies bleeding disorders. GENITOURINARY: Denies any blood in urine. SKIN: Denies pruitis. Denies rash. PHYSICAL EXAM: VITAL SIGNS: Reviewed. GENERAL: Well-developed in no acute distress. HEENT: Head is normocephalic. Pupils are equal, round. Sclerae anicteric. Mucous membranes of the mouth are moist. Neck supple. No JVD or thyromegaly LUNGS: Respirations even and unlabored. Lungs essentially clear to auscultation bilaterally. HEART: Regular rate and rhythm. S1 and S2 heard. ABDOMEN: Soft. Nondistended. Nontender. EXTREMITIES: Normal range of motion. No clubbing or cyanosis. Peripheral pulses intact. No lower extremity edema NEUROLOGIC: Lethargic ASSESSMENT: Right fifth metatarsal fracture Chest pain, troponin negative x 3 Acute alcohol intoxication Coronary artery disease with chronic total occlusion of the RCA Mild to moderate mitral regurgitation History of recurrent CVAs Carotid stenosis with previous left carotid stenting Hypertension Hyperlipidemia Liver cirrhosis History of alcohol abuse Nicotine dependence PLAN: An acute coronary event has been ruled out No need to repeat echocardiogram as this was performed earlier this month Patient had negative dobutamine stress test on 02/27/2024 Resume home cardiac medications No further inpatient recommendations from a cardiac standpoint We will sign off. Please reconsult if needed. Nurse practitioner note has been reviewed by physician. Signing provider agrees with the documented findings, assessment, and plan of care documented by LOCAL DELIVERY DRIVER as a scribe. Past Medical History Past Medical History: Asthma, Coronary Artery Disease (CAD), COPD, CVA/TIA, Eye Disorder, Hypertension, Liver Disease, Myocardial Infarction ([place]), Seizure Disorder, Vascular Disorder Additional Past Medical History / Comment(s): Pt recently admitted to [facility] for diarrhea, ETOH abuse. 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 soon Last Myocardial Infarction Date:: aug 2018 History of Any Multi-Drug Resistant Organisms: None Reported Past Surgical History: Cholecystectomy, Heart Catheterization, Orthopedic Surgery Additional Past Surgical History / Comment(s): L caratid stent, bilateral knee surgeries for tendon repair, bartholian cyst removed bilateral wrists, cataracts Past Anesthesia/Blood Transfusion Reactions: Motion Sickness Additional Past Anesthesia/Blood Transfusion Reaction / Comment(s): Pt has received blood without reaction. Past Psychological History: Anxiety, Depression Additional Psychological History / Comment(s): She uses a walker to ambulate. She has a nebulizer. She no longer drives, Pt. manages her own meds. Smoking Status: Current every day smoker Past Alcohol Use History: Abuse, Daily, Heavy Additional Past Alcohol Use History / Comment(s): Pt started smoking as a teen and has cut down to 1/2 pack per day. Drinks a few alcoholic drinks daily. Past Drug Use History: Marijuana Additional Drug Use History / Comment(s): Pt has medical marijuana, reports she has not used it in a while. (Doesn't like the way it makes her feel) - Past Family History Mother Family Medical History: Cancer, Congestive Heart Failure (CHF), Coronary Artery Disease (CAD), Hyperlipidemia Additional Family Medical History / Comment(s): Mother at age 85 from lung cancer. Father Family Medical History: Cancer, COPD Additional Family Medical History / Comment(s): Father at age 63 from lung cancer. Brother(s) Additional Family Medical History / Comment(s): Patient has a total of 7 siblings. 5 are alive without any major medical problems she is aware of. 2 siblings have one from alcohol abuse and 1. Coronary artery disease. Daughter(s) Family Medical History: No Reported History Additional Family Medical History / Comment(s): Patient has one daughter with no major medical problems. Medications and Allergies Home Medications Medication Instructions Recorded Confirmed Type Aspirin EC [Ecotrin Low Dose] 81 mg PO HS 02/11/19 03/03/24 History Simvastatin [Zocor] 40 mg PO HS 07/03/22 03/03/24 History Albuterol Nebulized [Ventolin 2.5 mg INHALATION RT-QID PRN 05/17/23 03/03/24 His tory Nebulized] Budesonide/Formoterol Fumarate 2 puff INHALATION RT-HS 07/29/23 03/03/24 History [Symbicort 160-4.5 Mcg Inhaler] Multivitamin [Multivitamins Adult 2 tab PO HS 12/04/23 03/03/24 History Gummies] Isosorbide Mononitrate ER [Imdur] 60 mg PO HS 30 Days #30 tab 12/07/23 03/03/24 Rx Metoprolol Succinate (ER) [Toprol 100 mg PO HS 30 Days #30 tab 12/07/23 03/03/24 Rx XL] Pantoprazole [Protonix] 40 mg PO HS 01/02/24 03/03/24 History Ipratropium-Albuterol Nebulize 3 ml INHALATION RT-Q2H PRN each 01/07/24 03/03/24 Rx [Duoneb 0.5 mg-3 mg/3 ml Soln] Ipratropium-Albuterol Nebulize 3 ml INHALATION RT-QID #100 each 01/07/24 03/03/24 Rx [Duoneb 0.5 mg-3 mg/3 ml Soln] Ondansetron Odt [Zofran ODT] 4 mg PO Q8HR PRN #20 tab 01/07/24 03/03/24 Rx Ibuprofen [Motrin Ib] 400 mg PO Q8H PRN 01/15/24 03/03/24 History Ibuprofen [Motrin Ib] 600 mg PO HS 01/15/24 03/03/24 History Brimonidine Tartrate [Alphagan P 1 drop BOTH EYES HS 02/02/24 03/03/24 History 0.2% Ophth Soln] Fluticasone Nasal [place] [Flonase 2 spray EA NOSTRIL HS 02/02/24 03/03/24 History Nasal [place]] Artificial Tears-Hypromellose 1 drops BOTH EYES TID PRN #5 ml 02/14/24 03/03/24 Rx [Artificial Tear Drops] Famotidine [Pepcid] 20 mg PO HS 02/19/24 03/03/24 History Nicotine 14Mg/24Hr Patch [Habitrol] 1 patch TRANSDERM HS 02/19/24 03/03/24 History Thiamine [Vitamin B-1] 100 mg PO HS 02/19/24 03/03/24 History Ticagrelor [Brilinta] 90 mg PO HS 02/26/24 03/03/24 History chlordiazePOXIDE HCl [Librium] See Taper PO DIRECTED 02/29/24 03/03/24 History Allergies Allergy/AdvReac Type Severity Reaction Status Date / Time [place] And Derivatives Allergy Rash/Hives Verified 03/03/24 08:19 [Trigg] latex Allergy Rash/Hives Verified 03/03/24 08:19 Influenza Virus Vaccines AdvReac Nausea & Verified 03/03/24 08:19 Vomiting morphine AdvReac Nausea & Verified 03/03/24 08:19 Vomiting tomato AdvReac Diarrhea Verified 03/03/24 08:19 Physical Exam Vitals: Vital Signs Temp Pulse Pulse Resp BP BP Pulse Ox 03/03/24 08:17 97.6 F 96 15 190/106 92 L 03/03/24 07:40 16 195/107 03/03/24 07:16 98 18 162/120 94 L 03/03/24 06:19 104 H 18 159/105 92 L 03/03/24 04:58 103 H 18 146/97 98 03/03/24 02:39 93 18 157/92 98 03/02/24 23:00 107 H 18 98/84 95 03/02/24 22:30 96 16 120/77 95 03/02/24 22:00 95 18 118/82 94 L 03/02/24 21:07 97.7 F 100 18 77/59 93 L Intake and Output 03/02/24 03/03/24 03/03/24 22:59 06:59 14:59 Output Total 500 Balance -500 Output: Urine/Stool Mix 500 Other: Weight 76.657 kg 76.657 kg Results 03/02/24 21:51 03/02/24 21:51 Cardiac Enzymes 03/02/24 03/02/24 03/03/24 Range/Units 21:51 21:51 03:36 AST 123 H (14-36) U/L Troponin I <0.012 0.016 (0.000-0.034) ng/mL 03/03/24 Range/Units 06:14 AST (14-36) U/L Troponin I 0.023 (0.000-0.034) ng/mL Coagulation 03/02/24 Range/Units 22:53 PT 10.3 (10.0-12.5) sec APTT 24.6 (22.0-30.0) sec CBC 03/02/24 Range/Units 21:51 WBC 5.3 (3.8-10.6) k/uL RBC 3.60 L (3.80-5.40) m/uL Hgb 11.3 L (11.4-16.0) gm/dL Hct 34.6 (34.0-46.0) % Plt Count 71 L (150-450) k/uL Comprehensive Metabolic Panel 03/02/24 Range/Units 21:51 Sodium 144 (137-145) mmol/L Potassium 3.4 L (3.5-5.1) mmol/L Chloride 113 H (98-107) mmol/L Carbon Dioxide 16 L (22-30) mmol/L BUN 18 H (7-17) mg/dL Creatinine 0.80 (0.52-1.04) mg/dL Glucose 94 (74-99) mg/dL Calcium 7.7 L (8.4-10.2) mg/dL AST 123 H (14-36) U/L ALT 71 H (4-34) U/L Alkaline Phosphatase 183 H (38-126) U/L Total Protein 5.8 L (6.3-8.2) g/dL Albumin 3.2 L (3.5-5.0) g/dL Current Medications Generic Name Dose Route Start Last Admin Trade Name Freq PRN Reason Stop Dose Admin Acetaminophen 650 mg 03/03/24 00:59 Acetaminophen Tab 325 Mg Tab PO Q6HR PRN Mild Pain or Fever > 100.5 Aspirin 81 mg 03/03/24 21:00 Aspirin 81 Mg PO HS MAGY Atorvastatin Calcium 20 mg 03/03/24 21:00 Atorvastatin 20 Mg Tab PO HS MAGY Sodium Chloride 1,000 mls @ 50 mls/hr 03/03/24 01:00 03/03/24 01:29 Saline 0.9% IV 50 mls/hr .Q20H MAGY Administration Isosorbide Mononitrate 60 mg 03/03/24 21:00 03/03/24 10:20 Isosorbide Mononitrate Er 60 Mg Tab.Er.24h PO 60 mg HS MAGY Administration Ketorolac Tromethamine 15 mg 03/03/24 00:59 Ketorolac 15 Mg/Ml 1 Ml Vial IVP 03/06/24 01:00 Q6HR PRN Moderate Pain (Scale 4 to 6) Lorazepam 1 mg 03/03/24 00:58 Lorazepam 2 Mg/Ml Inj IV Q1HR PRN CIWA 10 to 15 Lorazepam 1 mg 03/03/24 00:58 Lorazepam 2 Mg/Ml Inj IV Q2HR PRN CIWA 8 or 9 Lorazepam 2 mg 03/03/24 00:58 03/03/24 08:11 Lorazepam 2 Mg/Ml Inj IV 03/05/24 00:58 2 mg Q10M PRN Administration CIWA 16 or higher Metoprolol Succinate 100 mg 03/03/24 21:00 03/03/24 10:20 Metoprolol Succinate (Er) 100 Mg Tab.Er.24h PO 100 mg HS MAGY Administration Naloxone HCl 0.2 mg 03/03/24 00:59 Naloxone 0.4 Mg/Ml 1 Ml Vial IV Q2M PRN Opioid Reversal Ondansetron HCl 4 mg 03/03/24 00:59 03/03/24 08:11 Ondansetron 4 Mg/2 Ml Vial IVP 4 mg Q8HR PRN Administration Nausea And Vomiting Thiamine HCl 100 mg 03/04/24 09:00 Thiamine 100 Mg Tab PO DAILY MAGY Ticagrelor 90 mg 03/03/24 21:00 03/03/24 10:20 Ticagrelor 90 Mg Tab PO 90 mg HS MAGY Administration Intake and Output 03/02/24 03/03/24 03/03/24 22:59 06:59 14:59 Output Total 500 Balance -500 Output: Urine/Stool Mix 500 Other: Weight 76.657 kg 76.657 kg Patient Weight 03/04/24 06:59 Weight 76.657 kg 03/02/24 21:51 03/02/24 21:51
[2024-03-03] MEDS ORDERED: IPRATROPIUM-ALBUTEROL 3 ML NEB INHALATION PRN (12:52)
[2024-03-03] MEDS ORDERED: ALBUTEROL NEBULIZED 2.5 MG/3 ML INHALATION PRN (12:52)
--- NOTE | 2024-03-03 13:09 | P.HPIM ---
History of Present Illness Patient is a 64-year-old female came in with complaints of right foot pain patient pulido had a fracture. Right fifth toe and patient keeps falling and her pain is increased in the right foot patient has a stabilizing wrap around the foot when I evaluate the patient. Orthopedic surgery was consulted. X-ray here showed nondisplaced fracture of the fifth metatarsal diaphysis. Patient has history of alcohol abuse does have thrombocytopenia from alcohol abuse. Patient states she has not been drinking much although her alcohol level was very high at 356 on admission. Patient appears to have had a fall after she got drunk. Patient states she only smokes 10 cigarettes/day is complaining of severe pain in the right foot. Patient was eval by cardiology for chest pain although she denies any such chest pain to me at this time patient was eval by cardiology no further intervention is being planned. Patient has a recent stress test in February 2024. Patient history of coronary disease with stents in the past. REVIEW OF SYSTEMS: CONSTITUTIONAL: No fever, no malaise, no fatigue. HEENT: No recent visual problems or hearing problems. Denied any sore throat. CARDIOVASCULAR: No chest pain, orthopnea, PND, no palpitations, no syncope. PULMONARY: No shortness of breath, no cough, no hemoptysis. GASTROINTESTINAL: No diarrhea, no nausea, no vomiting, no abdominal pain. NEUROLOGICAL: No headaches, no weakness, no numbness. HEMATOLOGICAL: Denies any bleeding or petechiae. GENITOURINARY: Denies any burning micturition, frequency, or urgency. MUSCULOSKELETAL/RHEUMATOLOGICAL as mentioned in HPI ENDOCRINE: Denies any polyuria or polydipsia. The rest of the 14-point review of systems is negative. PHYSICAL EXAMINATION: GENERAL: The patient is alert and oriented x3, not in any acute distress. Well developed, well nourished. HEENT: Pupils are round and equally reacting to light. EOMI. No scleral icterus. No conjunctival pallor. Normocephalic, atraumatic. No pharyngeal erythema. No thyromegaly. CARDIOVASCULAR: S1 and S2 present. No murmurs, rubs, or gallops. PULMONARY: Chest is clear to auscultation, no wheezing or crackles. ABDOMEN: Soft, nontender, nondistended, normoactive bowel sounds. No palpable or ganomegaly. MUSCULOSKELETAL: As mentioned in HPI EXTREMITIES: No cyanosis, clubbing, or pedal edema. NEUROLOGICAL: Gross neurological examination did not reveal any focal deficits. SKIN: No rashes. Assessment and plan -Right foot pain secondary to first metatarsal fracture orthopedic surgery will evaluate the patient. Patient will be continued on Protonix and Toradol for pain -Alcohol abuse, concern of alcohol withdrawal patient will be started on Librium Ativan as needed for alcohol withdrawals patient is willing to quit social sciences chair will be consulted. -Coronary disease evaluate etiology patient has a recent stress test no further intervention is planned at this time. Hypertension -Hyperlipidemia -Thrombocytopenia secondary to liver disease -Cirrhosis of the liver -Nicotine dependence Hypochloremia and hyponatremia secondary to IV fluids which is IV normal saline which will be discontinued -Hypomagnesemia and hypokalemia: Will be replaced secondary to alcoholism and normal saline DVT prophylaxis: Lovenox -GI prophylaxis Protonix Past Medical History Past Medical History: Asthma, Coronary Artery Disease (CAD), COPD, CVA/TIA, Eye Disorder, Hypertension, Liver Disease, Myocardial Infarction ([place]), Seizure Disorder, Vascular Disorder Additional Past Medical History / Comment(s): Pt recently admitted to [facility] for diarrhea, ETOH abuse. 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 soon Last Myocardial Infarction Date:: aug 2018 History of Any Multi-Drug Resistant Organisms: None Reported Past Surgical History: Cholecystectomy, Heart Catheterization, Orthopedic Surgery Additional Past Surgical History / Comment(s): L caratid stent, bilateral knee surgeries for tendon repair, bartholian cyst removed bilateral wrists, cataracts Past Anesthesia/Blood Transfusion Reactions: Motion Sickness Additional Past Anesthesia/Blood Transfusion Reaction / Comment(s): Pt has received blood without reaction. Past Psychological History: Anxiety, Depression Additional Psychological History / Comment(s): She uses a walker to ambulate. She has a nebulizer. She no longer drives, Pt. manages her own meds. Smoking Status: Current every day smoker Past Alcohol Use History: Abuse, Daily, Heavy Additional Past Alcohol Use History / Comment(s): Pt started smoking as a teen and has cut down to 1/2 pack per day. Drinks a few alcoholic drinks daily. Past Drug Use History: Marijuana Additional Drug Use History / Comment(s): Pt has medical marijuana, reports she has not used it in a while. (Doesn't like the way it makes her feel) - Past Family History Mother Family Medical History: Cancer, Congestive Heart Failure (CHF), Coronary Artery Disease (CAD), Hyperlipidemia Additional Family Medical History / Comment(s): Mother at age 85 from lung cancer. Father Family Medical History: Cancer, COPD Additional Family Medical History / Comment(s): Father at age 63 from lung cancer. Brother(s) Additional Family Medical History / Comment(s): Patient has a total of 7 siblings. 5 are alive without any major medical problems she is aware of. 2 siblings have one from alcohol abuse and 1. Coronary artery disease. Daughter(s) Family Medical History: No Reported History Additional Family Medical History / Comment(s): Patient has one daughter with no major medical problems. Medications and Allergies Home Medications Medication Instructions Recorded Confirmed Type Aspirin EC [Ecotrin Low Dose] 81 mg PO HS 02/11/19 03/03/24 History Simvastatin [Zocor] 40 mg PO HS 07/03/22 03/03/24 History Albuterol Nebulized [Ventolin 2.5 mg INHALATION RT-QID PRN 05/17/23 03/03/24 History Nebulized] Budesonide/Formoterol Fumarate 2 puff INHALATION RT-HS 07/29/23 03/03/24 History [Symbicort 160-4.5 Mcg Inhaler] Multivitamin [Multivitamins Adult 2 tab PO HS 12/04/23 03/03/24 History Gummies] Isosorbide Mononitrate ER [Imdur] 60 mg PO HS 30 Days #30 tab 12/07/23 03/03/24 Rx Metoprolol Succinate (ER) [Toprol 100 mg PO HS 30 Days #30 tab 12/07/23 03/03/24 Rx XL] Pantoprazole [Protonix] 40 mg PO HS 01/02/24 03/03/24 History Ipratropium-Albuterol Nebulize 3 ml INHALATION RT-Q2H PRN each 01/07/24 03/03/24 Rx [Duoneb 0.5 mg-3 mg/3 ml Soln] Ipratropium-Albuterol Nebulize 3 ml INHALATION RT-QID #100 each 01/07/24 03/03/24 Rx [Duoneb 0.5 mg-3 mg/3 ml Soln] Ondansetron Odt [Zofran ODT] 4 mg PO Q8HR PRN #20 tab 01/07/24 03/03/24 Rx Ibuprofen [Motrin Ib] 400 mg PO Q8H PRN 01/15/24 03/03/24 History Ibuprofen [Motrin Ib] 600 mg PO HS 01/15/24 03/03/24 History Brimonidine Tartrate [Alphagan P 1 drop BOTH EYES HS 02/02/24 03/03/24 History 0.2% Ophth Soln] Fluticasone Nasal [place] [Flonase 2 spray EA NOSTRIL HS 02/02/24 03/03/24 History Nasal [place]] Artificial Tears-Hypromellose 1 drops BOTH EYES TID PRN #5 ml 02/14/24 03/03/24 Rx [Artificial Tear Drops] Famotidine [Pepcid] 20 mg PO HS 02/19/24 03/03/24 History Nicotine 14Mg/24Hr Patch [Habitrol] 1 patch TRANSDERM HS 02/19/24 03/03/24 History Thiamine [Vitamin B-1] 100 mg PO HS 02/19/24 03/03/24 History Ticagrelor [Brilinta] 90 mg PO HS 02/26/24 03/03/24 History chlordiazePOXIDE HCl [Librium] See Taper PO DIRECTED 02/29/24 03/03/24 History Allergies Allergy/AdvReac Type Severity Reaction Status Date / Time [place] And Derivatives Allergy Rash/Hives Verified 03/03/24 08:19 [[place]] latex Allergy Rash/Hives Verified 03/03/24 08:19 Influenza Virus Vaccines AdvReac Nausea & Verified 03/03/24 08:19 Vomiting morphine AdvReac Nausea & Verified 03/03/24 08:19 Vomiting tomato AdvReac Diarrhea Verified 03/03/24 08:19 Physical Exam Vitals: Vital Signs Temp Pulse Pulse Resp BP BP Pulse Ox 03/03/24 08:17 97.6 F 96 15 190/106 92 L 04/22/24 07:40 16 195/107 03/03/24 07:16 98 18 162/120 94 L 03/03/24 06:19 104 H 18 159/105 92 L 03/03/24 04:58 103 H 18 146/97 98 03/03/24 02:39 93 18 157/92 98 03/02/24 23:00 107 H 18 98/84 95 03/02/24 22:30 96 16 120/77 95 03/02/24 22:00 95 18 118/82 94 L 03/02/24 21:07 97.7 F 100 18 77/59 93 L Intake and Output 03/02/24 03/03/24 03/03/24 22:59 06:59 14:59 Output Total 500 Balance -500 Output: Urine/Stool Mix 500 Other: Weight 76.657 kg 76.657 kg Results CBC & Chem 7: 03/02/24 21:51 03/02/24 21:51 Labs: Abnormal Lab Results - Last 24 Hours (Table) 03/02/24 03/02/24 Range/Units 21:51 21:51 RBC 3.60 L (3.80-5.40) m/uL Hgb 11.3 L (11.4-16.0) gm/dL RDW 17.1 H (11.5-15.5) % Plt Count 71 L (150-450) k/uL Potassium 3.4 L (3.5-5.1) mmol/L Chloride 113 H (98-107) mmol/L Carbon Dioxide 16 L (22-30) mmol/L BUN 18 H (7-17) mg/dL Calcium 7.7 L (8.4-10.2) mg/dL Magnesium 1.4 L (1.6-2.3) mg/dL AST 123 H (14-36) U/L ALT 71 H (4-34) U/L Alkaline Phosphatase 183 H (38-126) U/L Total Protein 5.8 L (6.3-8.2) g/dL Albumin 3.2 L (3.5-5.0) g/dL Serum Alcohol 327 H* mg/dL
[2024-03-03] MEDS: POTASSIUM CHLORIDE ER 20 MEQ TAB.ER PO STA (13:29)
[2024-03-03] MEDS: PANTOPRAZOLE 40 MG TABLET PO SCH (13:29)
[2024-03-03] MEDS: MAGNESIUM SULFATE-D5W PMX 1 GM in DEXTROSE/WATER 1 100ML.BAG IVPB SCH (13:29)
[2024-03-03] MEDS: KETOROLAC 15 MG/ML 1 ML VIAL IVP PRN (13:36)
--- NOTE | 2024-03-03 14:59 | P.CNOR ---
History of Present Illness - [facility] Consult date: 03/03/24 Consult reason: fracture (Right foot fracture) History of present illness: The patient is a 64-year-old female who presented to the emergency department with chest pain.she was also complaining of right foot pain. Upon x-ray in the emergency department a fifth metatarsal fracture was found. The patient states t hat she dropped her 4 wheeled walker on her right foot a couple days ago. She did not seek treatment for her right foot at that time. The foot is still painful and swollen. Orthopedics was consulted for further evaluation. Review of Systems ROS unobtainable: due to mental status (She states she is "drugged up" and unable to obtain much history at this time.) Past Medical History Past Medical History: Asthma, Coronary Artery Disease (CAD), COPD, CVA/TIA, Eye Disorder, Hypertension, Liver Disease, Myocardial Infarction (MD), Seizure Disorder, Vascular Disorder Additional Past Medical History / Comment(s): Pt recently admitted to [facility] for diarrhea, ETOH abuse. 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 soon Last Myocardial Infarction Date:: aug 2018 History of Any Multi-Drug Resistant Organisms: None Reported Past Surgical History: Cholecystectomy, Heart Catheterization, Orthopedic Surgery Additional Past Surgical History / Comment(s): L caratid stent, bilateral knee s urgeries for tendon repair, bartholian cyst removed bilateral wrists, cataracts Past Anesthesia/Blood Transfusion Reactions: Motion Sickness Additional Past Anesthesia/Blood Transfusion Reaction / Comm: Pt has received blood without reaction. Past Psychological History: Anxiety, Depression Additional Psychological History / Comment(s): She uses a walker to ambulate. She has a nebulizer. She no longer drives, Pt. manages her own meds. Smoking Status: Current every day smoker Past Alcohol Use History: Abuse, Daily, Heavy Additional Past Alcohol Use History / Comment(s): Pt started smoking as a teen and has cut down to 1/2 pack per day. Drinks a few alcoholic drinks daily. Past Drug Use History: Marijuana Additional Drug Use History / Comment(s): Pt has medical marijuana, reports she has not used it in a while. (Doesn't like the way it makes her feel) - Past Family History Mother Family Medical History: Cancer, Congestive Heart Failure (CHF), Coronary Artery Disease (CAD), Hyperlipidemia Additional Family Medical History / Comment(s): Mother at age 85 from lung cancer. Father Family Medical History: Cancer, COPD Additional Family Medical History / Comment(s): Father at age 63 from lung cancer. Brother(s) Additional Family Medical History / Comment(s): Patient has a total of 7 si blings. 5 are alive without any major medical problems she is aware of. 2 siblings have one from alcohol abuse and 1. Coronary artery disease. Daughter(s) Family Medical History: No Reported History Additional Family Medical History / Comment(s): Patient has one daughter with no major medical problems. Medications and Allergies Home Medications Medication Instructions Recorded Confirmed Type Aspirin EC [Ecotrin Low Dose] 81 mg PO HS 02/11/19 03/03/24 History Simvastatin [Zocor] 40 mg PO HS 07/03/22 03/03/24 History Albuterol Nebulized [Ventolin 2.5 mg INHALATION RT-QID PRN 05/17/23 03/03/24 History Nebulized] Budesonide/Formoterol Fumarate 2 puff INHALATION RT-HS 07/29/23 03/03/24 History [Symbicort 160-4.5 Mcg Inhaler] Multivitamin [Multivitamins Adult 2 tab PO HS 12/04/23 03/03/24 History Gummies] Isosorbide Mononitrate ER [Imdur] 60 mg PO HS 30 Days #30 tab 12/07/23 03/03/24 Rx Metoprolol Succinate (ER) [Toprol 100 mg PO HS 30 Days #30 tab 12/07/23 03/03/24 Rx XL] Pantoprazole [Protonix] 40 mg PO HS 01/02/24 03/03/24 History Ipratropium-Albuterol Nebulize 3 ml INHALATION RT-Q2H PRN each 01/07/24 03/03/24 Rx [Duoneb 0.5 mg-3 mg/3 ml Soln] Ipratropium-Albuterol Nebulize 3 ml INHALATION RT-QID #100 each 01/07/24 03/03/24 Rx [Duoneb 0.5 mg-3 mg/3 ml Soln] Ondansetron Odt [Zofran ODT] 4 mg PO Q8HR PRN #20 tab 01/07/24 03/03/24 Rx Ibuprofen [Motrin Ib] 400 mg PO Q8H PRN 01/15/24 03/03/24 History Ibuprofen [Motrin Ib] 600 mg PO HS 01/15/24 03/03/24 History Brimonidine Tartrate [Alphagan P 1 drop BOTH EYES HS 02/02/24 03/03/24 History 0.2% Ophth Soln] Fluticasone Nasal [place] [Flonase 2 spray EA NOSTRIL HS 02/02/24 03/03/24 History Nasal [place]] Artificial Tears-Hypromellose 1 drops BOTH EYES TID PRN #5 ml 02/14/24 03/03/24 Rx [Artificial Tear Drops] Famotidine [Pepcid] 20 mg PO HS 02/19/24 03/03/24 History Nicotine 14Mg/24Hr Patch [Habitrol] 1 patch TRANSDERM HS 02/19/24 03/03/24 History Thiamine [Vitamin B-1] 100 mg PO HS 02/19/24 03/03/24 History Ticagrelor [Brilinta] 90 mg PO HS 02/26/24 03/03/24 History chlordiazePOXIDE HCl [Librium] See Taper PO DIRECTED 02/29/24 03/03/24 History Allergies Allergy/AdvReac Type Severity Reaction Status Date / Time [place] And Derivatives Allergy Rash/Hives Verified 03/03/24 08:19 [[place]] latex Allergy Rash/Hives Verified 03/03/24 08:19 Influenza Virus Vaccines AdvReac Nausea & Verified 03/03/24 08:19 Vomiting morphine AdvReac Nausea & Verified 03/03/24 08:19 Vomiting tomato AdvReac Diarrhea Verified 03/03/24 08:19 Physical Examination The patient is a 64-year-old female in no acute distress. She is alert and oriented 2 but falls asleep easily. Exam of the right foot reveals diffuse swelling to the dorsal aspect of the foot. There is point tenderness to the fifth metatarsal shaft. No other pain throughout the foot or ankle. She is able to wiggle her toes slightly. Neurological and circulatory status is intact. Results X-ray of the right foot dated 03/02/2024 reveals a nondisplaced fifth metatarsal fracture. Fracture alignment satisfactory. - Labs Labs: Abnormal Lab Results - Last 24 Hours (Table) 03/02/24 03/02/24 Range/Units 21:51 21:51 RBC 3.60 L (3.80-5.40) m/uL Hgb 11.3 L (11.4-16.0) gm/dL RDW 17.1 H (11.5-15.5) % Plt Count 71 L (150-450) k/uL Potassium 3.4 L (3.5-5.1) mmol/L Chloride 113 H (98-107) mmol/L Carbon Dioxide 16 L (22-30) mmol/L BUN 18 H (7-17) mg/dL Calcium 7.7 L (8.4-10.2) mg/dL Magnesium 1.4 L (1.6-2.3) mg/dL AST 123 H (14-36) U/L ALT 71 H (4-34) U/L Alkaline Phosphatase 183 H (38-126) U/L Total Protein 5.8 L (6.3-8.2) g/dL Albumin 3.2 L (3.5-5.0) g/dL Serum Alcohol 327 H* mg/dL H & H 03/02/24 Range/Units 21:51 Hgb 11.3 L (11.4-16.0) gm/dL Hct 34.6 (34.0-46.0) % Coagulation 03/02/24 Range/Units 22:53 INR 0.9 (<1.2) Result Diagrams: 03/02/24 21:51 03/02/24 21:51 Assessment and Plan (1) Right foot pain Current Visit: Yes Status: Acute Code(s): M79.671 - PAIN IN RIGHT FOOT SNOMED Code(s): 79950768 (2) Fracture of metatarsal of right foot, closed Current Visit: Yes Status: Acute Code(s): S92.301A - FRACTURE OF UNSP METATARSAL BONE(S), RIGHT FOOT, INIT SNOMED Code(s): 92566387057598478 Plan: The clinical and x-ray findings were discussed with the patient. Case was discussed with Dr. Pool. it was discussed with the patient that she will need a boot for her right foot but she states she has one at home. She states that she is unstable in the boot and is a fall hazard. I offered a postop shoe instead with protective weightbearing to the right foot. The patient would like to think about it and discuss that later after she is not on as much pain medication. I will order the postop shoe today. PT and OT can work with her as well. We will check on the patient tomorrow to discuss further treatment options.
[2024-03-03] MEDS: NICOTINE 14MG/24HR PATCH TRANSDERM SCH (15:21)
[2024-03-03] MEDS: IPRATROPIUM-ALBUTEROL 3 ML NEB INHALATION SCH (15:36)
[2024-03-03] MEDS: SYMBICORT 160-4.5 MCG INHALER INHALATION SCH (19:57)
[2024-03-03] MEDS: ASPIRIN 81 MG PO SCH (21:46)
[2024-03-03] MEDS: MULTIVITAMINS, THERA 1 EACH TAB PO SCH (21:47)
[2024-03-03] MEDS: FAMOTIDINE 20 MG TAB PO SCH (21:47)
[2024-03-03] MEDS: ATORVASTATIN 20 MG TAB PO SCH (21:47)
[2024-03-03] MEDS: ARTIFICIAL TEARS-HYPROMELLOSE DROPS 15 ML BTL BOTH EYES PRN (22:03)
[2024-03-03] MEDS: BRIMONIDINE TARTRATE 0.2% DROPS 5 ML BTL BOTH EYES SCH (22:50)
[2024-03-04 06:00] VITALS: TEMP 97.6
[2024-03-04] MEDS: LORazepam 2 MG/ML INJ IV PRN (08:56)
[2024-03-04] MEDS: THIAMINE 100 MG TAB PO SCH (08:57)
[2024-03-04] MEDS: ENOXAPARIN 40 MG/0.4 ML SYRINGE SQ SCH (08:57)
--- NOTE | 2024-03-04 13:01 | P.DS ---
Providers Date of admission: 03/03/24 02:42 Attending physician: Mark Cardoza Consults: 03/03/24 00:59 Consult Physician Urgent Consulting Provider: Zeinab Pool Consult Reason/Comments: R 5th metatarsal fx Do you want consulting provider notified?: Yes Primary care physician: [facility] Hospital Course: 64-year-old female patient admitted for fracture of the right fifth metatarsal nondisplaced fracture. Orthopedic surgery evaluate the patient and the recommended postsurgical boot although patient is declining to wear the boot and patient wanted to be discharged. Patient does not want a wait for physical therapy evaluation extensive counseling was provided by orthopedic surgery. Patient does drink alcohol on daily basis extensive counseling was provided social work was consulted. Patient states she will quit alcohol patient continues to smoke. Patient will is intoxicated when she came in patient is not having any withdrawal symptoms at this time. PHYSICAL EXAMINATION: GENERAL: The patient is alert and oriented x3, not in any acute distress. Well developed, well nourished. HEENT: Pupils are round and equally reacting to light. EOMI. No scleral icterus. No conjunctival pallor. Normocephalic, atraumatic. No pharyngeal erythema. No thyromegaly. CARDIOVASCULAR: S1 and S2 present. No murmurs, rubs, or gallops. PULMONARY: Chest is clear to auscultation, no wheezing or crackles. ABDOMEN: Soft, nontender, nondistended, normoactive bowel sounds. No palpable organomegaly. MUSCULOSKELETAL: Right foot is wrapped EXTREMITIES: No cyanosis, clubbing, or pedal edema. NEUROLOGICAL: Gross neurological examination did not reveal any focal deficits. SKIN: No rashes. Assessment and plan -Right foot pain secondary to first metatarsal fracture -Alcohol abuse, no withdrawals at this time -Coronary disease Hypertension -Hyperlipidemia -Thrombocytopenia secondary to liver disease -Cirrhosis of the liver -Nicotine dependence Hypochloremia and hyponatremia secondary to IV fluids which were discontinued -Hypomagnesemia and hypokalemia: replaced and secondary to alcoholism and normal saline Plan - Discharge Summary Discharge Rx Participant: Yes New Discharge Prescriptions: Continue Aspirin EC [Ecotrin Low Dose] 81 mg PO HS Budesonide/Formoterol Fumarate [Symbicort 160-4.5 Mcg Inhaler] 2 puff INHALATION RT-HS Multivitamin [Multivitamins Adult Gummies] 2 tab PO HS Metoprolol Succinate (ER) [Toprol XL] 100 mg PO HS 30 Days #30 tab Ipratropium-Albuterol Nebulize [Duoneb 0.5 mg-3 mg/3 ml Soln] 3 ml INHALATION RT-QID #100 each Ipratropium-Albuterol Nebulize [Duoneb 0.5 mg-3 mg/3 ml Soln] 3 ml INHALATION RT-Q2H PRN each PRN Reason: Shortness Of Breath Or Wheezing Ibuprofen [Motrin Ib] 400 mg PO Q8H PRN PRN Reason: Pain Ibuprofen [Motrin Ib] 600 mg PO HS Artificial Tears-Hypromellose [Artificial Tear Drops] 1 drops BOTH EYES TID PRN #5 ml PRN Reason: Dry Eye(S) Famotidine [Pepcid] 20 mg PO HS Thiamine [Vitamin B-1] 100 mg PO HS Simvastatin [Zocor] 40 mg PO HS Albuterol Nebulized [Ventolin Nebulized] 2.5 mg INHALATION RT-QID PRN PRN Reason: Shortness Of Breath Isosorbide Mononitrate ER [Imdur] 60 mg PO HS 30 Days #30 tab Pantoprazole [Protonix] 40 mg PO HS Ondansetron Odt [Zofran ODT] 4 mg PO Q8HR PRN #20 tab PRN Reason: Nausea Brimonidine Tartrate [Alphagan P 0.2% Ophth Soln] 1 drop BOTH EYES HS Fluticasone Nasal [place] [Flonase Nasal [place]] 2 spray EA NOSTRIL HS Nicotine 14Mg/24Hr Patch [Habitrol] 1 patch TRANSDERM HS Ticagrelor [Brilinta] 90 mg PO HS chlordiazePOXIDE HCl [Librium] See Taper PO DIRECTED Discharge Medication List Aspirin EC [Ecotrin Low Dose] 81 mg PO HS 02/11/19 [History] Simvastatin [Zocor] 40 mg PO HS 07/03/22 [History] Albuterol Nebulized [Ventolin Nebulized] 2.5 mg INHALATION RT-QID PRN 05/17/23 [History] Budesonide/Formoterol Fumarate [Symbicort 160-4.5 Mcg Inhaler] 2 puff INHALATION RT-HS 07/29/23 [History] Multivitamin [Multivitamins Adult Gummies] 2 tab PO HS 12/04/23 [History] Isosorbide Mononitrate ER [Imdur] 60 mg PO HS 30 Days #30 tab 12/07/23 [Rx] Metoprolol Succinate (ER) [Toprol XL] 100 mg PO HS 30 Days #30 tab 12/07/23 [Rx] Pantoprazole [Protonix] 40 mg PO HS 01/02/24 [History] Ipratropium-Albuterol Nebulize [Duoneb 0.5 mg-3 mg/3 ml Soln] 3 ml INHALATION RT-Q2H PRN each 01/07/24 [Rx] Ipratropium-Albuterol Nebulize [Duoneb 0.5 mg-3 mg/3 ml Soln] 3 ml INHALATION RT-QID #100 each 01/07/24 [Rx] Ondansetron Odt [Zofran ODT] 4 mg PO Q8HR PRN #20 tab 01/07/24 [Rx] Ibuprofen [Motrin Ib] 400 mg PO Q8H PRN 01/15/24 [History] Ibuprofen [Motrin Ib] 600 mg PO HS 01/15/24 [History] Brimonidine Tartrate [Alphagan P 0.2% Ophth Soln] 1 drop BOTH EYES HS 02/02/24 [History] Fluticasone Nasal [place] [Flonase Nasal [place]] 2 spray EA NOSTRIL HS 02/02/24 [History] Artificial Tears-Hypromellose [Artificial Tear Drops] 1 drops BOTH EYES TID PRN #5 ml 02/14/24 [Rx] Famotidine [Pepcid] 20 mg PO HS 02/19/24 [History] Nicotine 14Mg/24Hr Patch [Habitrol] 1 patch TRANSDERM HS 02/19/24 [History] Thiamine [Vitamin B-1] 100 mg PO HS 02/19/24 [History] Ticagrelor [Brilinta] 90 mg PO HS 02/26/24 [History] chlordiazePOXIDE HCl [Librium] See Taper PO DIRECTED 02/29/24 [History] Follow up Appointment(s)/Referral(s): Zeinab Pool DO [Doctor of Osteopathic Medicine] - 2 Weeks Miya Johnson MD [Primary Care Provider] - 3 Days Activity/Diet/Wound Care/Special Instructions: Post op shoe or boot with partial weightbearing on the right foot is recommended. Ice and elevate right foot. Follow up with Dr. Pool ([facility]) in 2 weeks. Discharge Disposition: HOME SELF-CARE
[2024-03-04 13:29] VITALS: BP 125/74; PULSE 80; RESP 16
== END 2024-03-04 14:00 | disposition home or self-care (01) ==
LOC: EC 20:48 → 6NMEDSUR 03-03 02:42
PROVIDERS: ADMIT Hospitalist; ATTEND Hospitalist
DX: S92.354A Nondisplaced fracture of fifth metatarsal bone, right foot, initial encounter for closed fracture (principal); W20.8XXA Other cause of strike by thrown, projected or falling object, initial encounter; R07.9 Chest pain, unspecified; I25.10 Atherosclerotic heart disease of native coronary artery without angina pectoris; I25.82 Chronic total occlusion of coronary artery; F10.229 Alcohol dependence with intoxication, unspecified; K70.30 Alcoholic cirrhosis of liver without ascites; D69.59 Other secondary thrombocytopenia; E87.1 Hypo-osmolality and hyponatremia; E87.6 Hypokalemia; E83.42 Hypomagnesemia; J44.9 Chronic obstructive pulmonary disease, unspecified; I10 Essential (primary) hypertension; F32.A Depression, unspecified; F41.9 Anxiety disorder, unspecified; E78.5 Hyperlipidemia, unspecified; I34.0 Nonrheumatic mitral (valve) insufficiency; I65.29 Occlusion and stenosis of unspecified carotid artery; F17.210 Nicotine dependence, cigarettes, uncomplicated; I25.2 Old myocardial infarction; I69.351 Hemiplegia and hemiparesis following cerebral infarction affecting right dominant side; Y90.8 Blood alcohol level of 240 mg/100 ml or more; Z95.5 Presence of coronary angioplasty implant and graft; Z79.51 Long term (current) use of inhaled steroids; Z79.82 Long term (current) use of aspirin; Z79.899 Other long term (current) drug therapy; Z88.5 Allergy status to narcotic agent; Z91.040 Latex allergy status
CPT/HCPCS: 96376 ×2; 96365; 96366; 96367; 96372 ×2; 96375 ×2; 99285; 36415; 94640 ×2; 93005; 80053; 83735; 84484 ×2; 85025; 85610; 85730; 81003; 72100; 73502; 73630; 71046; G0378 ×2; G0480; S4990 ×2; J2060 ×2; J3411; J3480; J2405; J1650; J3475; J1885 ×3; 80320

== ENCOUNTER 2024-03-06 00:33 | Emergency (ER) | payer OTHER ==
[2024-03-06 01:48] LABS: Anisocytosis Slight; Basophils # (A) 0.1 k/uL (0-0.2); Basophils % (A) 2 %; Eosinophils # (A) 0.1 k/uL (0-0.7); Eosinophils % (A) 3 %; HCT 38.3 % (34.0-46.0); HGB 12.3 gm/dL (11.4-16.0); Lymphocytes # (A) 1.6 k/uL (1.0-4.8); Lymphocytes % (A) 38 %; MCHC 32.1 g/dL (31.0-37.0); MCV 99.7 fL (80.0-100.0); Macrocytosis Slight; Mean Platelet Volume 9.1; Monocytes # (A) 0.1 k/uL (0-1.0); Monocytes % (A) 4 %; Neutrophils % (A) 49 %; RBC 3.84 m/uL (3.80-5.40); RDW 17.1 % (11.5-15.5); WBC 4.1 k/uL (3.8-10.6)
[2024-03-06 01:51] LABS: Platelet Count 60 k/uL (150-450)
[2024-03-06 01:57] LABS: INR 0.9 (<1.2); Partial Thromboplastin Time 24.3 sec (22.0-30.0)
[2024-03-06 02:00] LABS: ALT 97 U/L (4-34); AST 181 U/L (14-36); African American GFR (CKD) >90 (>60 ml/min/1.73 sqM); Albumin 3.6 g/dL (3.5-5.0); Alkaline Phosphatase 224 U/L (38-126); Anion Gap 8 mmol/L; Blood Urea Nitrogen 9 mg/dL (7-17); Calcium 8.2 mg/dL (8.4-10.2); Carbon Dioxide 25 mmol/L (22-30); Chloride 108 mmol/L (98-107); Glucose 88 mg/dL (74-99); Magnesium 1.6 mg/dL (1.6-2.3); Non-African American GFR(CKD) >90 (>60 ml/min/1.73 sqM); Potassium 3.9 mmol/L (3.5-5.1); Sodium 141 mmol/L (137-145); Total Bilirubin 0.4 mg/dL (0.2-1.3); Total Protein 6.3 g/dL (6.3-8.2)
--- NOTE | 2024-03-06 02:12 | ED ---
Chest Pain HPI - General Chief Complaint: Chest Pain Stated Complaint: chest pain ETOH Time Seen by Provider: 03/06/24 01:07 Source: patient Mode of arrival: EMS Limitations: altered mental status, physical limitation - History of Present Illness Initial Comments: This patient is a 64-year-old woman with history of chronic drinking, who presents to evaluation of mainly left foot pain after she struck this on her walker. The injury occurred this evening. She states there is pain when she attempts to put weight on her foot. She did not note an obvious deformity. There is no weakness or numbness of the toes. Patient also having some substernal burning chest pain that she has had intermittently for quite some time. She is not having associated dyspnea, diaphoresis, vomiting. She has had some intermittent nausea but thought this was related to the drinking. MD Complaint: chest pain -: hour(s) Onset: during rest Pain Location: substernal Pain Radiation: none Quality: other (Burning) Consistency: intermittent Improves With: nothing Worsens With: nothing Anginal Symptoms: nausea Treatments Prior to Arrival: none - Related Data Home Medications Medication Instructions Recorded Confirmed Aspirin EC [Ecotrin Low Dose] 81 mg PO HS 02/11/19 03/15/24 Simvastatin [Zocor] 40 mg PO HS 07/03/22 03/15/24 Albuterol Nebulized [Ventolin 2.5 mg INHALATION RT-QID PRN 05/17/23 03/15/24 Nebulized] Budesonide/Formoterol Fumarate 2 puff INHALATION RT-HS 07/29/23 03/15/24 [Symbicort 160-4.5 Mcg Inhaler] Multivitamin [Multivitamins Adult 2 tab PO HS 12/04/23 03/15/24 Gummies] Pantoprazole [Protonix] 40 mg PO HS 01/02/24 03/15/24 Ibuprofen [Motrin Ib] 400 mg PO Q8H PRN 01/15/24 03/15/24 Ibuprofen [Motrin Ib] 600 mg PO HS 01/15/24 03/15/24 Brimonidine Tartrate [Alphagan P 1 drop BOTH EYES HS 02/02/24 03/15/24 0.2% Ophth Soln] Fluticasone Nasal [place] [Flonase 2 spray EA NOSTRIL HS 02/02/24 03/15/24 Nasal [place]] Famotidine [Pepcid] 20 mg PO HS 02/19/24 03/15/24 Nicotine 14Mg/24Hr Patch [Habitrol] 1 patch TRANSDERM HS 02/19/24 03/15/24 Thiamine [Vitamin B-1] 100 mg PO HS 02/19/24 03/15/24 Ticagrelor [Brilinta] 90 mg PO HS 02/26/24 03/15/24 Artificial Tears-Hypromellose 1 drop BOTH EYES TID PRN 03/10/24 03/15/24 [Artificial Tear Drops] Magnesium Oxide [Mag-Ox] 400 mg PO HS 03/15/24 03/15/24 Potassium Chloride ER [K-Dur 20] 20 meq PO HS 03/15/24 03/15/24 Previous Rx's Medication Instructions Recorded Isosorbide Mononitrate ER [Imdur] 60 mg PO HS 30 Days #30 tab 12/07/23 Metoprolol Succinate (ER) [Toprol 100 mg PO HS 30 Days #30 tab 12/07/23 XL] Ipratropium-Albuterol Nebulize 3 ml INHALATION RT-Q2H PRN each 01/07/24 [Duoneb 0.5 mg-3 mg/3 ml Soln] Ipratropium-Albuterol Nebulize 3 ml INHALATION RT-QID #100 each 01/07/24 [Duoneb 0.5 mg-3 mg/3 ml Soln] Ondansetron Odt [Zofran ODT] 4 mg PO Q8HR PRN #20 tab 01/07/24 Allergies Allergy/AdvReac Type Severity Reaction Status Date / Time [place] And Derivatives Allergy Rash/Hives Verified 03/15/24 09:36 [[place]] latex Allergy Rash/Hives Verified 03/15/24 09:36 Influenza Virus Vaccines AdvReac Nausea & Verified 03/15/24 09:36 Vomiting morphine AdvReac Nausea & Verified 03/15/24 09:36 Vomiting tomato AdvReac Diarrhea Verified 03/15/24 09:36 Review of Systems ROS Statement: Those systems with pertinent positive or pertinent negative responses have been documented in the HPI. ROS Other: All systems not noted in ROS Statement are negative. Constitutional: Denies: fever, chills Respiratory: Denies: cough, dyspnea Cardiovascular: Reports: chest pain. Denies: palpitations, orthopnea, edema, syncope Gastrointestinal: Reports: nausea. Denies: abdominal pain, vomiting, diarrhea, hematemesis, melena, hematochezia Genitourinary: Denies: dysuria, hematuria Musculoskeletal: Reports: as per HPI, arthralgia. Denies: back pain Skin: Denies: rash, lesions Neurological: Denies: headache, weakness, numbness EKG Findings - EKG Results: EKG: interpreted by ERMD, sinus rhythm (Rate 82 bpm), normal axis, normal QRS - Blocks, [place], Hypertrophy, ST Abn: Chamber hypertrophy or enlargement: only voltage criteria for left ventricular hypertrophy Repolarization changes or abnormalities: ST or T wave suggestive of ischemia Past Medical History Past Medical History: Asthma, Coronary Artery Disease (CAD), COPD, CVA/TIA, Eye Disorder, Hypertension, Liver Disease, Myocardial Infarction ([place]), Seizure Disorder, Vascular Disorder Additional Past Medical History / Comment(s): Pt recently admitted to [facility] for diarrhea, ETOH abuse. 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 soon Last Myocardial Infarction Date:: aug 2018 History of Any Multi-Drug Resistant Organisms: None Reported Past Surgical History: Cholecystectomy, Heart Catheterization, Orthopedic Surgery Additional Past Surgical History / Comment(s): L caratid stent, bilateral knee surgeries for tendon repair, bartholian cyst removed bilateral wrists, cataracts Past Anesthesia/Blood Transfusion Reactions: Motion Sickness Additional Past Anesthesia/Blood Transfusion Reaction / Comment(s): Pt has received blood without reaction. Past Psychological History: Anxiety, Depression Smoking Status: Current every day smoker Past Alcohol Use History: Abuse, Daily, Heavy Past Drug Use History: Marijuana - Past Family History Mother Family Medical History: Cancer, Congestive Heart Failure (CHF), Coronary Artery Disease (CAD), Hyperlipidemia Additional Family Medical History / Comment(s): Mother at age 85 from lung cancer. Father Family Medical History: Cancer, COPD Additional Family Medical History / Comment(s): Father at age 63 from lung cancer. Brother(s) Additional Family Medical History / Comment(s): Patient has a total of 7 siblings. 5 are alive without any major medical problems she is aware of. 2 siblings have one from alcohol abuse and 1. Coronary artery disease. Daughter(s) Family Medical History: No Reported History Additional Family Medical History / Comment(s): Patient has one daughter with no major medical problems. General Exam Limitations: altered mental status, physical limitation General appearance: alert, in no apparent distress Head exam: Present: atraumatic, normocephalic Eye exam: Present: normal appearance. Absent: scleral icterus, conjunctival injection Neck exam: Present: normal inspection Respiratory exam: Present: normal lung sounds bilaterally. Absent: respiratory distress, wheezes, rales, rhonchi, stridor, chest wall tenderness, accessory muscle use Cardiovascular Exam: Present: regular rate, normal rhythm, normal heart sounds. Absent: systolic murmur, diastolic murmur, rubs, gallop GI/Abdominal exam: Present: soft. Absent: distended, tenderness, guarding, rebound, rigid, mass Extremities exam: Present: normal inspection, full ROM, tenderness, normal capillary refill. Absent: pedal edema, calf tenderness Back exam: Present: normal inspection. Absent: CVA tenderness (R), CVA tenderness (L) Neurological exam: Present: alert. Absent: motor sensory deficit Skin exam: Present: warm, dry, intact, normal color. Absent: rash Course Vital Signs 03/06/24 03/06/24 03/06/24 00:44 02:00 03:00 Temperature 97.9 F Pulse Rate 88 78 76 Respiratory 18 16 14 Rate Blood Pressure 74/47 110/72 94/66 O2 Sat by Pulse 100 93 L 93 L Oximetry 03/06/24 03/06/24 03/06/24 04:00 05:00 06:00 Temperature Pulse Rate 80 75 92 Respiratory 16 16 16 Rate Blood Pressure 97/63 97/63 121/81 O2 Sat by Pulse 92 L Oximetry 03/06/24 07:04 Temperature 98.0 F Pulse Rate 95 Respiratory 18 Rate Blood Pressure 121/81 O2 Sat by Pulse 93 L Oximetry Chest Pain MDM - MDM The patient had chest x-ray that I interpreted as negative for acute infiltrate, pneumothorax, congestive heart failure The patient had left foot x-ray that I interpreted as negative for acute bony injury. Was pt. sent in by a medical professional or institution (, PA, MATERIAL HANDLER, urgent care, hospital, or custodial...) When possible be specific @ -[No] Did you speak to anyone other than the patient for history (EMS, parent, family, police, friend...)? What history was obtained from this source @ -[No] Did you review nursing and triage notes (agree or disagree)? Why? @ -[I reviewed and agree with nursing and triage notes] Were old charts reviewed (outside hosp., previous admission, EMS record, old EKG, old radiological studies, urgent care reports/EKG's, custodial records)? Report findings @ -[No old charts were reviewed] Differential Diagnosis (chest pain, altered mental status, abdominal pain women, abdominal pain men, vaginal bleeding, weakness, fever, dyspnea, syncope, headache, dizziness, GI bleed, back pain, seizure, CVA, palpatations, mental health, musculoskeletal)? @ -[Differential Chest Pain: Stable Angina, Unstable Angina, STEMI, NSTEMI Aortic Dissection, Pneumothorax, Musculoskeletal, Esophageal Spasm GERD, Cholecystitis, Pancreatitis, Zoster, this is not meant to be an all-inclusive list. Differential Musculoskeletal Muscular strain, contusion, ligament sprain, fracture, arthritis, septic arthritis, bursitis, cellulitis, muscle spasm, nerve compression, DVT, arterial occlusion, herpes zoster, electrolyte abnormality, tumor.... This is not meant to be in all inclusive list EKG interpreted by me (3pts min.). @ -[I interpreted as above] X-rays interpreted by me (1pt min.). @ -[I interpreted as above CT interpreted by me (1pt min.). @ -[None done] U/S interpreted by me (1pt. min.). @ -[None done] What testing was considered but not performed or refused? (CT, X-rays, U/S, labs)? Why? @ -[None] What meds were considered but not given or refused? Why? @ -[None] Did you discuss the management of the patient with other professionals (professionals i.e. , PA, MATERIAL HANDLER, lab, RT, psych nurse, social security assessor, lawyer real estate, teacher, forest fire management officer, director of casework department)? Give summary @ -[No] Was smoking cessation discussed for >3mins.? @ -[No] Was critical care preformed (if so, how long)? @ -[No] Were there social determinants of health that impacted care today? How? (Homelessness, low income, unemployed, alcoholism, drug addiction, transportation, low edu. Level, literacy, decrease access to med. care, correction, rehab)? @ -[No] Was there de-escalation of care discussed even if they declined (Discuss DNR or withdrawal of care, Hospice)? DNR status @ -[No] What co-morbidities impacted this encounter? (DM, HTN, Smoking, COPD, CAD, Cancer, CVA, ARF, Chemo, Hep., AIDS, mental health diagnosis, sleep apnea, morbid obesity)? @ -[None] Was patient admitted / discharged? Hospital course, mention meds given and route, prescriptions, significant lab abnormalities, going to OR and other pertinent info. @ -[hospital course] Undiagnosed new problem with uncertain prognosis? @ -[No] Drug Therapy requiring intensive monitoring for toxicity (Heparin, Nitro, Insulin, Cardizem)? @ -[No] Were any procedures done? @ -[No] Diagnosis/symptom? @ -[Acute foot contusion Acute chest pain Acute, or Chronic, or Acute on Chronic? @ -[Acute Uncomplicated (without systemic symptoms) or Complicated (systemic symptoms)? @ -[Uncomplicated Side effects of treatment? @ -[No] Exacerbation, Progression, or Severe Exacerbation? @ -[No] Poses a threat to life or bodily function? How? (Chest pain, [place], [place], pneumonia, PE, COPD, DKA, ARF, appy, cholecystitis, CVA, Diverticulitis, Homicidal, Suicidal, threat to staff... and all critical care pts) @ -[No] Disposition Clinical Impression: Chest pain, Acute alcohol intoxication Disposition: HOME SELF-CARE Condition: Fair Instructions (If sedation given, give patient instructions): Chest Pain (ED), Alcohol Intoxication (DC) Is patient prescribed a controlled substance at d/c from ED?: No Referrals: Miya Johnson MD [Primary Care Provider] - 1-2 days
--- NOTE | 2024-03-06 04:25 | XR ---
EXAM: XR Chest, 2 Views CLINICAL HISTORY: Chest Pain TECHNIQUE: Frontal and lateral views of the chest. COMPARISON: 08/27/2023. FINDINGS: Lungs: No consolidation. No atelectasis. Pulmonary vessels top normal caliber.. Pleural space: No pleural effusion. No pneumothorax. Heart: Mild cardiomegaly. Mediastinum: Unremarkable. Normal mediastinal contour. Bones/joints: Unremarkable. No acute fracture. IMPRESSION: Cardiomegaly. Pulmonary vessels top normal in caliber.
--- NOTE | 2024-03-06 04:26 | XR ---
EXAM: XR Left Foot Complete, 3 or More Views CLINICAL HISTORY: Foot injury TECHNIQUE: Frontal, lateral and oblique views of the left foot. COMPARISON: No relevant prior studies available. FINDINGS: Bones/joints: Unremarkable. No acute fracture. No dislocation. Soft tissues: Unremarkable. No radiopaque foreign body. IMPRESSION: No acute post-traumatic abnormality.
[2024-03-06 07:08] VITALS: BP 121/81; PULSE 95; RESP 18; TEMP 98
== END 2024-03-06 07:42 | disposition home or self-care (01) ==
LOC: EC 00:33
DX: S90.32XA Contusion of left foot, initial encounter (principal); R07.2 Precordial pain; F10.129 Alcohol abuse with intoxication, unspecified; F17.200 Nicotine dependence, unspecified, uncomplicated; F12.90 Cannabis use, unspecified, uncomplicated; Z91.018 Allergy to other foods; Z88.5 Allergy status to narcotic agent; Z88.7 Allergy status to serum and vaccine; Z91.040 Latex allergy status; Z88.8 Allergy status to other drugs, medicaments and biological substances; Y90.8 Blood alcohol level of 240 mg/100 ml or more; W22.8XXA Striking against or struck by other objects, initial encounter
CPT/HCPCS: 99285; 36415; 93005; 80053; 83735; 84484; 85025; 85610; 85730; 73630; 71046; G0480; 80320

== ENCOUNTER 2024-03-08 15:23 | Emergency (ER) | payer OTHER ==
[2024-03-08 16:58] LABS: ALT 96 U/L (4-34); AST 174 U/L (14-36); African American GFR (CKD) >90 (>60 ml/min/1.73 sqM); Albumin 4.1 g/dL (3.5-5.0); Alkaline Phosphatase 224 U/L (38-126); Anion Gap 12 mmol/L; Blood Urea Nitrogen 5 mg/dL (7-17); Calcium 7.9 mg/dL (8.4-10.2); Carbon Dioxide 23 mmol/L (22-30); Chloride 105 mmol/L (98-107); Glucose 97 mg/dL (74-99); Non-African American GFR(CKD) >90 (>60 ml/min/1.73 sqM); Sodium 140 mmol/L (137-145); Total Bilirubin 1.4 mg/dL (0.2-1.3)
[2024-03-08 17:07] LABS: Alcohol 372 mg/dL
[2024-03-08 17:08] LABS: Potassium 5.6 mmol/L (3.5-5.1)
[2024-03-08 17:21] LABS: Anisocytosis Slight; HCT 35.3 % (34.0-46.0); HGB 11.9 gm/dL (11.4-16.0); MCH 32.3 pg (25.0-35.0); MCHC 33.7 g/dL (31.0-37.0); MCV 96.1 fL (80.0-100.0); Macrocytosis Slight; Mean Platelet Volume 8.4; RBC 3.68 m/uL (3.80-5.40); RDW 17.4 % (11.5-15.5); WBC 5.7 k/uL (3.8-10.6)
[2024-03-08 17:32] LABS: Platelet Count 84 k/uL (150-450)
[2024-03-08 18:29] LABS: Eosinophils # (M) 0.17 k/uL (0-0.7); Lymphocytes # (M) 1.77 k/uL (1.0-4.8); Neutrophils # (M) 2.57 k/uL (1.3-7.7); Neutrophils % (M) 45 %; Nucleated Red Blood Cells 0 /100 WBC (0-0); Total Cells Counted 100
--- NOTE | 2024-03-08 18:29 | ED ---
Chest Pain HPI - General Chief Complaint: Chest Pain Stated Complaint: ETOH/Chest Pain Time Seen by Provider: 03/08/24 15:30 Source: patient, EMS Mode of arrival: EMS - History of Present Illness Initial Comments: 64-year-old female who presents emergency department for alcohol intoxication. Patient has been seen multiple times for the same complaint. She told EMS that she was having chest pain and difficulty breathing however upon arrival to our hospital the patient states that she has been drinking. Patient admits to anxiety. She will have chest pain frequently. She has been hospitalized several times for evaluation of this chest pain. Patient does not have a guardian. She states that she wants to quit drinking however does not take initiative. HPI is limited because the patient's current intoxicated state - Related Data Home Medications Medication Instructions Recorded Confirmed Aspirin EC [Ecotrin Low Dose] 81 mg PO HS 02/11/19 03/15/24 Simvastatin [Zocor] 40 mg PO HS 07/03/22 03/15/24 Albuterol Nebulized [Ventolin 2.5 mg INHALATION RT-QID PRN 05/17/23 03/15/24 Nebulized] Budesonide/Formoterol Fumarate 2 puff INHALATION RT-HS 07/29/23 03/15/24 [Symbicort 160-4.5 Mcg Inhaler] Multivitamin [Multivitamins Adult 2 tab PO HS 12/04/23 03/15/24 Gummies] Pantoprazole [Protonix] 40 mg PO HS 01/02/24 03/15/24 Ibuprofen [Motrin Ib] 400 mg PO Q8H PRN 01/15/24 03/15/24 Ibuprofen [Motrin Ib] 600 mg PO HS 01/15/24 03/15/24 Brimonidine Tartrate [Alphagan P 1 drop BOTH EYES HS 02/02/24 03/15/24 0.2% Ophth Soln] Fluticasone Nasal [place] [Flonase 2 spray EA NOSTRIL HS 02/02/24 03/15/24 Nasal [place]] Famotidine [Pepcid] 20 mg PO HS 02/19/24 03/15/24 Nicotine 14Mg/24Hr Patch [Habitrol] 1 patch TRANSDERM HS 02/19/24 03/15/24 Thiamine [Vitamin B-1] 100 mg PO HS 02/19/24 03/15/24 Ticagrelor [Brilinta] 90 mg PO HS 02/26/24 03/15/24 Artificial Tears-Hypromellose 1 drop BOTH EYES TID PRN 03/10/24 03/15/24 [Artificial Tear Drops] Magnesium Oxide [Mag-Ox] 400 mg PO HS 03/15/24 03/15/24 Potassium Chloride ER [K-Dur 20] 20 meq PO HS 03/15/24 03/15/24 Previous Rx's Medication Instructions Recorded Isosorbide Mononitrate ER [Imdur] 60 mg PO HS 30 Days #30 tab 12/07/23 Metoprolol Succinate (ER) [Toprol 100 mg PO HS 30 Days #30 tab 12/07/23 XL] Ipratropium-Albuterol Nebulize 3 ml INHALATION RT-Q2H PRN each 01/07/24 [Duoneb 0.5 mg-3 mg/3 ml Soln] Ipratropium-Albuterol Nebulize 3 ml INHALATION RT-QID #100 each 01/07/24 [Duoneb 0.5 mg-3 mg/3 ml Soln] Ondansetron Odt [Zofran ODT] 4 mg PO Q8HR PRN #20 tab 01/07/24 Allergies Allergy/AdvReac Type Severity Reaction Status Date / Time Bureau And Derivatives Allergy Rash/Hives Verified 03/15/24 09:36 [Bureau] latex Allergy Rash/Hives Verified 03/15/24 09:36 Influenza Virus Vaccines AdvReac Nausea & Verified 03/15/24 09:36 Vomiting morphine AdvReac Nausea & Verified 03/15/24 09:36 Vomiting tomato AdvReac Diarrhea Verified 03/15/24 09:36 Review of Systems ROS Statement: Those systems with pertinent positive or pertinent negative responses have been documented in the HPI. ROS Other: All systems not noted in ROS Statement are negative. Past Medical History Past Medical History: Asthma, Coronary Artery Disease (CAD), COPD, CVA/TIA, Eye Disorder, Hypertension, Liver Disease, Myocardial Infarction ([place]), Seizure Disorder, Vascular Disorder Additional Past Medical History / Comment(s): Pt recently admitted to [facility] for diarrhea, ETOH abuse. 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 soon Last Myocardial Infarction Date:: aug 2018 History of Any Multi-Drug Resistant Organisms: None Reported Past Surgical History: Cholecystectomy, Heart Catheterization, Orthopedic Surgery Additional Past Surgical History / Comment(s): L caratid stent, bilateral knee surgeries for tendon repair, bartholian cyst removed bilateral wrists, cataracts Past Anesthesia/Blood Transfusion Reactions: Motion Sickness Additional Past Anesthesia/Blood Transfusion Reaction / Comment(s): Pt has received blood without reaction. Past Psychological History: Anxiety, Depression Smoking Status: Current every day smoker Past Alcohol Use History: Abuse, Daily, Heavy Past Drug Use History: Marijuana - Past Family History Mother Family Medical History: Cancer, Congestive Heart Failure (CHF), Coronary Artery Disease (CAD), Hyperlipidemia Additional Family Medical History / Comment(s): Mother at age 85 from lung cancer. Father Family Medical History: Cancer, COPD Additional Family Medical History / Comment(s): Father at age 63 from lung cancer. Brother(s) Additional Family Medical History / Comment(s): Patient has a total of 7 siblings. 5 are alive without any major medical problems she is aware of. 2 siblings have one from alcohol abuse and 1. Coronary artery disease. Daughter(s) Family Medical History: No Reported History Additional Family Medical History / Comment(s): Patient has one daughter with no major medical problems. General Exam General appearance: alert, in no apparent distress, appears intoxicated Head exam: Present: atraumatic, normocephalic, normal inspection Eye exam: Present: normal appearance, PERRL, EOMI. Absent: scleral icterus, conjunctival injection, periorbital swelling ENT exam: Present: normal exam, mucous membranes moist Neck exam: Present: normal inspection. Absent: tenderness, meningismus, lymphadenopathy Respiratory exam: Present: normal lung sounds bilaterally. Absent: respiratory distress, wheezes, rales, rhonchi, stridor Cardiovascular Exam: Present: regular rate, normal rhythm, normal heart sounds. Absent: systolic murmur, diastolic murmur, rubs, gallop, clicks GI/Abdominal exam: Present: soft, normal bowel sounds. Absent: distended, tenderness, guarding, rebound, rigid Extremities exam: Present: normal inspection, full ROM, normal capillary refill. Absent: tenderness, pedal edema, joint swelling, calf tenderness Back exam: Present: normal inspection Neurological exam: Present: alert, oriented X3, CN II-XII intact Psychiatric exam: Present: normal affect, normal mood Skin exam: Present: warm, dry, intact, normal color. Absent: rash Course Vital Signs 03/08/24 03/08/24 03/08/24 15:25 15:45 16:25 Temperature 97.8 F 97.6 F Pulse Rate 87 88 Pulse Rate [ 89 Extra Gang Supervisor ] Respiratory 20 18 Rate Blood Pressure 109/78 127/74 O2 Sat by Pulse 97 99 Oximetry 03/08/24 03/08/24 03/08/24 17:05 18:19 19:27 Temperature 98.0 F Pulse Rate 92 92 97 Pulse Rate [ Extra Gang Supervisor ] Respiratory 20 17 19 Rate Blood Pressure 137/71 107/64 93/75 O2 Sat by Pulse 95 98 98 Oximetry Chest Pain MDM - MDM Was pt. sent in by a medical professional or institution (Dr. PA, ENTRY LEVEL MECHANICAL ENGINEER, urgent care, hospital, or intermediate...) When possible be specific @ -No Did you speak to anyone other than the patient for history (EMS, parent, family, police, friend...)? What history was obtained from this source @ -Spoke with EMS for history Did you review nursing and triage notes (agree or disagree)? Why? @ -I reviewed and agree with nursing and triage notes Were old charts reviewed (outside hosp., previous admission, EMS record, old EKG, old radiological studies, urgent care reports/EKG's, intermediate records)? Report findings @ -I reviewed patient's recent ED visit summary Differential Diagnosis (chest pain, altered mental status, abdominal pain women, abdominal pain men, vaginal bleeding, weakness, fever, dyspnea, syncope, headache, dizziness, GI bleed, back pain, seizure, CVA, palpatations, mental health, musculoskeletal)? @ -Differential Mental Health Depression, anxiety, bipolar, psychosis, schizophrenia, borderline personality, situational depression, adjustment disorder, behavioral disorder, brain tumor, malingering, substance abuse, encephalopathy, medication reaction, dementia, hypothyroidism, degenerative neurologic disorder, lupus.... This is not meant to be all-inclusive list EKG interpreted by me (3pts min.). @ -Yes and demonstrates sinus rhythm with a rate of 86. FL interval 148. QRS 98. QTc of 417. ST depression V3 through V6 X-rays interpreted by me (1pt min.). @ -None done CT interpreted by me (1pt min.). @ -None done U/S interpreted by me (1pt. min.). @ -None done What testing was considered but not performed or refused? (CT, X-rays, U/S, labs)? Why? @ -None What meds were considered but not given or refused? Why? @ -None Did you discuss the management of the patient with other professionals (professionals i.e. , PA, ENTRY LEVEL MECHANICAL ENGINEER, lab, RT, psych nurse, social organization professor, coremaker apprentice, teacher, sports development officer, cyanide case hardener)? Give summary @ -Spoke with [facility] for admission Was smoking cessation discussed for >3mins.? @ -No Was critical care preformed (if so, how long)? @ -No Were there social determinants of health that impacted care today? How? (Homelessness, low income, unemployed, alcoholism, drug addiction, transportation, low edu. Level, literacy, decrease access to med. care, fpc, rehab)? @ -No Was there de-escalation of care discussed even if they declined (Discuss DNR or withdrawal of care, Hospice)? DNR status @ -No What co-morbidities impacted this encounter? (DM, HTN, Smoking, COPD, CAD, Cancer, CVA, ARF, Chemo, Hep., AIDS, mental health diagnosis, sleep apnea, morbid obesity)? @ -Alcoholism Was patient admitted / discharged? Hospital course, mention meds given and route, prescriptions, significant lab abnormalities, going to OR and other [facility] info. @ -Upon arrival patient was seen and evaluated in room 14. Thorough history and physical exam was performed. Patient presents once again for alcohol intoxication. She is here several times per week for the same complaint. She has no new complaints. Patient is intoxicated. She is watched for several hours. Patient does become clinically sober. Patient is sent home with a safe ride. We highly recommended that the patient's stop drinking. Patient has several resources for this. Instructed to return for any new or worsening symptoms. Patient discharged in stable condition Undiagnosed new problem with uncertain prognosis? @ -No Drug Therapy requiring intensive monitoring for toxicity (Heparin, Nitro, Insulin, Cardizem)? @ -No Were any procedures done? @ -No Diagnosis/symptom? @ -Acute alcohol intoxication Acute, or Chronic, or Acute on Chronic? @ -Acute Uncomplicated (without systemic symptoms) or Complicated (systemic symptoms)? @ -Complicated Side effects of treatment? @ -No Exacerbation, Progression, or Severe Exacerbation? @ -No Poses a threat to life or bodily function? How? (Chest pain, [place], [place], pneumonia, PE, COPD, DKA, ARF, appy, cholecystitis, CVA, Diverticulitis, Homicidal, Suicidal, threat to staff... and all critical care pts) @ -No Disposition Clinical Impression: Alcohol intoxication, Alcohol abuse Disposition: HOME SELF-CARE Condition: Stable Instructions (If sedation given, give patient instructions): Alcohol Int oxication (ED) Additional Instructions: Follow-up with your primary care doctor and return for any new or worsening symptoms Is patient prescribed a controlled substance at d/c from ED?: No Referrals: Miya Johnson MD [Primary Care Provider] - 1-2 days Time of Disposition: 19:04
[2024-03-08 18:52] VITALS: TEMP 98
[2024-03-08 19:30] VITALS: BP 93/75; PULSE 97; RESP 19
== END 2024-03-08 19:27 | disposition home or self-care (01) ==
LOC: EC 15:23
DX: F10.129 Alcohol abuse with intoxication, unspecified (principal); F17.200 Nicotine dependence, unspecified, uncomplicated; Z88.5 Allergy status to narcotic agent; Z88.7 Allergy status to serum and vaccine; Z91.040 Latex allergy status; Z91.09 Other allergy status, other than to drugs and biological substances; Z91.018 Allergy to other foods; Z86.73 Personal history of transient ischemic attack (TIA), and cerebral infarction without residual deficits; Y90.8 Blood alcohol level of 240 mg/100 ml or more
CPT/HCPCS: 36415; 93005; 80053; 84484; 85025; 99285; G0480; 80320

== ENCOUNTER 2024-03-09 02:01 | Emergency (ER) | payer OTHER ==
[2024-03-09 02:44] VITALS: TEMP 97.9
--- NOTE | 2024-03-09 04:56 | XR ---
EXAM: XR Right Knee, 3 Views CLINICAL HISTORY: ITS.REASON XR Reason: fall injury TECHNIQUE: Three views of the right knee. COMPARISON: No relevant prior studies available. FINDINGS: Bones/joints: No acute fracture. No dislocation. Prior postop change. Soft tissues: Unremarkable. IMPRESSION: No acute osseous abnormalities.
--- NOTE | 2024-03-09 05:05 | CT ---
EXAM: CT Lumbar Spine Without Intravenous Contrast CLINICAL HISTORY: ITS.REASON CT Reason: fall injury TECHNIQUE: Axial computed tomography images of the lumbar spine without intravenous contrast. CTDI is 29.6 mGy and DLP is 987.9 mGy-cm. This CT exam was performed using one or more of the following dose reduction techniques: automated exposure control, adjustment of the mA and/or kV according to patient size, and/or use of iterative reconstruction technique. COMPARISON: 01/02/2024 FINDINGS: Vertebrae: Chronic mild superior plate wedging of L1 and L4. No retropulsion. No acute fracture. No subluxation. Discs/spinal canal/neural foramina: Moderate L3-4 and mild L4-5 spinal canal stenosis from degenerative changes. Soft tissues: Unremarkable. IMPRESSION: No acute fracture.
--- NOTE | 2024-03-09 05:17 | ED ---
Fall HPI - General Chief Complaint: Fall Stated Complaint: ETOH Time Seen by Provider: 03/09/24 02:24 Source: EMS Mode of arrival: EMS - History of Present Illness Initial Comments: This patient is a 64-year-old woman who presents to have evaluation for back and knee pain. The patient states this was a result of ground-level fall. The patient does have history of frequent falls and is a nearly daily drinker. The patient denies head or neck injury. No loss consciousness. No change in bladder or bowel function. No weakness or numbness distal to injury MD Complaint: fall -: hour(s) Fall From: standing When Fall Occurred: other Fall Witnessed: no Place Fall Occurred: home Loss of Consciousness: none Prolonged Down Time?: no Symptoms Prior to Fall: none Location: back Severity: moderate Quality: aching Context: alcohol use, history of frequent falls - Related Data Home Medications Medication Instructions Recorded Confirmed Aspirin EC [Ecotrin Low Dose] 81 mg PO HS 02/11/19 03/15/24 Simvastatin [Zocor] 40 mg PO HS 07/03/22 03/15/24 Albuterol Nebulized [Ventolin 2.5 mg INHALATION RT-QID PRN 05/17/23 03/15/24 Nebulized] Budesonide/Formoterol Fumarate 2 puff INHALATION RT-HS 07/29/23 03/15/24 [Symbicort 160-4.5 Mcg Inhaler] Multivitamin [Multivitamins Adult 2 tab PO HS 12/04/23 03/15/24 Gummies] Pantoprazole [Protonix] 40 mg PO HS 01/02/24 03/15/24 Ibuprofen [Motrin Ib] 400 mg PO Q8H PRN 01/15/24 03/15/24 Ibuprofen [Motrin Ib] 600 mg PO HS 01/15/24 03/15/24 Brimonidine Tartrate [Alphagan P 1 drop BOTH EYES HS 02/02/24 03/15/24 0.2% Ophth Soln] Fluticasone Nasal [place] [Flonase 2 spray EA NOSTRIL HS 02/02/24 03/15/24 Nasal [place]] Famotidine [Pepcid] 20 mg PO HS 02/19/24 03/15/24 Nicotine 14Mg/24Hr Patch [Habitrol] 1 patch TRANSDERM HS 02/19/24 03/15/24 Thiamine [Vitamin B-1] 100 mg PO HS 02/19/24 03/15/24 Ticagrelor [Brilinta] 90 mg PO HS 02/26/24 03/15/24 Artificial Tears-Hypromellose 1 drop BOTH EYES TID PRN 03/10/24 03/15/24 [Artificial Tear Drops] Magnesium Oxide [Mag-Ox] 400 mg PO HS 03/15/24 03/15/24 Potassium Chloride ER [K-Dur 20] 20 meq PO HS 03/15/24 03/15/24 Previous Rx's Medication Instructions Recorded Isosorbide Mononitrate ER [Imdur] 60 mg PO HS 30 Days #30 tab 12/07/23 Metoprolol Succinate (ER) [Toprol 100 mg PO HS 30 Days #30 tab 12/07/23 XL] Ipratropium-Albuterol Nebulize 3 ml INHALATION RT-Q2H PRN each 01/07/24 [Duoneb 0.5 mg-3 mg/3 ml Soln] Ipratropium-Albuterol Nebulize 3 ml INHALATION RT-QID #100 each 01/07/24 [Duoneb 0.5 mg-3 mg/3 ml Soln] Ondansetron Odt [Zofran ODT] 4 mg PO Q8HR PRN #20 tab 01/07/24 Allergies Allergy/AdvReac Type Severity Reaction Status Date / Time [place] And Derivatives Allergy Rash/Hives Verified 03/15/24 09:36 [[place]] latex Allergy Rash/Hives Verified 03/15/24 09:36 Influenza Virus Vaccines AdvReac Nausea & Verified 03/15/24 09:36 Vomiting morphine AdvReac Nausea & Verified 03/15/24 09:36 Vomiting tomato AdvReac Diarrhea Verified 03/15/24 09:36 Review of Systems ROS Statement: Those systems with pertinent positive or pertinent negative responses have been documented in the HPI. ROS Other: All systems not noted in ROS Statement are negative. Constitutional: Denies: fever Eyes: Denies: vision change Respiratory: Denies: cough, dyspnea Cardiovascular: Denies: chest pain, syncope Gastrointestinal: Denies: abdominal pain, vomiting Genitourinary: Denies: dysuria, hematuria Musculoskeletal: Reports: as per HPI, back pain, arthralgia Skin: Denies: rash Neurological: Denies: headache, weakness, numbness Past Medical History Past Medical History: Asthma, Coronary Artery Disease (CAD), COPD, CVA/TIA, Eye Disorder, Hypertension, Liver Disease, Myocardial Infarction ([place]), Seizure Disorder, Vascular Disorder Additional Past Medical History / Comment(s): Pt recently admitted to [facility] for diarrhea, ETOH abuse. 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 soon Last Myocardial Infarction Date:: aug 2018 History of Any Multi-Drug Resistant Organisms: None Reported Past Surgical History: Cholecystectomy, Heart Catheterization, Orthopedic Surgery Additional Past Surgical History / Comment(s): L caratid stent, bilateral knee surgeries for tendon repair, bartholian cyst removed bilateral wrists, cataracts Past Anesthesia/Blood Transfusion Reactions: Motion Sickness Additional Past Anesthesia/Blood Transfusion Reaction / Comment(s): Pt has received blood without reaction. Past Psychological History: Anxiety, Depression Smoking Status: Current every day smoker Past Alcohol Use History: Abuse, Daily, Heavy Past Drug Use History: Marijuana - Past Family History Mother Family Medical History: Cancer, Congestive Heart Failure (CHF), Coronary Artery Disease (CAD), Hyperlipidemia Additional Family Medical History / Comment(s): Mother at age 85 from lung cancer. Father Family Medical History: Cancer, COPD Additional Family Medical History / Comment(s): Father at age 63 from lung cancer. Brother(s) Additional Family Medical History / Comment(s): Patient has a total of 7 siblings. 5 are alive without any major medical problems she is aware of. 2 siblings have one from alcohol abuse and 1. Coronary artery disease. Daughter(s) Family Medical History: No Reported History Additional Family Medical History / Comment(s): Patient has one daughter with no major medical problems. General Exam Limitations: no limitations General appearance: alert, in no apparent distress, appears intoxicated Head exam: Present: atraumatic, normocephalic Eye exam: Present: normal appearance. Absent: scleral icterus, conjunctival injection Neck exam: Present: normal inspection, full ROM. Absent: tenderness Respiratory exam: Present: normal lung sounds bilaterally. Absent: respiratory distress, wheezes, rales, rhonchi, stridor, chest wall tenderness, accessory muscle use Cardiovascular Exam: Present: regular rate, normal rhythm, normal heart sounds. Absent: systolic murmur, diastolic murmur, rubs, gallop GI/Abdominal exam: Present: soft. Absent: distended, tenderness, guarding, rebound, rigid, mass Extremities exam: Present: normal inspection, tenderness (There is moderate tenderness to anterior aspect of knee. There is contusion. No obvious deformity.), normal capillary refill. Absent: pedal edema, calf tenderness Back exam: Present: normal inspection, tenderness, vertebral tenderness (Tenderness to lumbar's spine. No obvious deformity.). Absent: CVA tenderness (R), CVA tenderness (L) Neurological exam: Present: alert, reflexes normal. Absent: motor sensory deficit Skin exam: Present: warm, dry, intact, normal color. Absent: rash Course Vital Signs 03/09/24 03/09/24 02:24 05:54 Temperature 97.9 F Pulse Rate 88 96 Respiratory 18 20 Rate Blood Pressure 101/73 96/54 O2 Sat by Pulse 96 99 Oximetry Medical Decision Making - Medical Decision Making The patient had lumbar spine CT scan which I interpreted as negative for acute fracture or subluxation. The patient had x-ray of the knee which I interpreted as negative for acute bony injury. Was pt. sent in by a medical professional or institution (, PA, VOICE NETWORK ENGINEER, urgent care, hospital, or skilled nursing...) When possible be specific @ -[No] Did you speak to anyone other than the patient for history (EMS, parent, family, police, friend...)? What history was obtained from this source @ -[No] Did you review nursing and triage notes (agree or disagree)? Why? @ -[I reviewed and agree with nursing and triage notes] Were old charts reviewed (outside hosp., previous admission, EMS record, old EKG, old radiological studies, urgent care reports/EKG's, skilled nursing records)? Report findings @ -[No old charts were reviewed] Differential Diagnosis (chest pain, altered mental status, abdominal pain women, abdominal pain men, vaginal bleeding, weakness, fever, dyspnea, syncope, headache, dizziness, GI bleed, back pain, seizure, CVA, palpatations, mental health, musculoskeletal)? @ -Differential Musculoskeletal Muscular strain, contusion, ligament sprain, fracture, arthritis, septic arthritis, bursitis, cellulitis, muscle spasm, nerve compression, DVT, arterial occlusion, herpes zoster, electrolyte abnormality, tumor.... This is not meant to be in all inclusive list EKG interpreted by me (3pts min.). @ -[As above] X-rays interpreted by me (1pt min.). @ -I interpreted as above CT interpreted by me (1pt min.). @ -[I interpreted as above U/S interpreted by me (1pt. min.). @ -[None done] What testing was considered but not performed or refused? (CT, X-rays, U/S, labs)? Why? @ -[None] What meds were considered but not given or refused? Why? @ -[None] Did you discuss the management of the patient with other professionals (professionals i.e. , PA, VOICE NETWORK ENGINEER, lab, RT, psych nurse, director of social services, latcher, teacher, science and operations officer, case management coordinator)? Give summary @ -[No] Was smoking cessation discussed for >3mins.? @ -[No] Was critical care preformed (if so, how long)? @ -[No] Were there social determinants of health that impacted care today? How? (Homelessness, low income, unemployed, alcoholism, drug addiction, transportation, low edu. Level, literacy, decrease access to med. care, [place] [facility], rehab)? @ -[No] Was there de-escalation of care discussed even if they declined (Discuss DNR or withdrawal of care, Hospice)? DNR status @ -[No] What co-morbidities impacted this encounter? (DM, HTN, Smoking, COPD, CAD, Cancer, CVA, ARF, Chemo, Hep., AIDS, mental health diagnosis, sleep apnea, morbid obesity)? @ -[Alcohol abuse Was patient admitted / discharged? Hospital course, mention meds given and route, prescriptions, significant lab abnormalities, going to OR and other pertinent info. @ -[Patient is a 64-year-old woman who arrives to have evaluation after ground- level fall. On exam she did have significant tenderness in the lumbar spine area and the knee. She did have studies which did not show apparent new bony injury. Discussed appropriate further care and follow-up as well as return parameters. Undiagnosed new problem with uncertain prognosis? @ -[No] Drug Therapy requiring intensive monitoring for toxicity (Heparin, Nitro, Insulin, Cardizem)? @ -[No] Were any procedures done? @ -[No] Diagnosis/symptom? @ -[Acute alcohol intoxication Acute fall Lumbar spine strain Knee contusion Acute, or Chronic, or Acute on Chronic? @ -[Acute Uncomplicated (without systemic symptoms) or Complicated (systemic symptoms)? @ -[Uncomplicated Side effects of treatment? @ -[No] Exacerbation, Progression, or Severe Exacerbation? @ -[No] Poses a threat to life or bodily function? How? (Chest pain, [place], [place], pneumonia, PE, COPD, DKA, ARF, appy, cholecystitis, CVA, Diverticulitis, Homicidal, Suicidal, threat to staff... and all critical care pts) @ -[No] Disposition Clinical Impression: Fall, Alcohol intoxication Disposition: HOME SELF-CARE Condition: Good Instructions (If sedation given, give patient instructions): Fall Prevention for Older Adults (ED), Alcohol Intoxication (DC), Fall Prevention (ED) Is patient prescribed a controlled substance at d/c from ED?: No Referrals: Miya Johnson MD [Primary Care Provider] - 1-2 days
[2024-03-09 06:21] VITALS: BP 96/54; PULSE 96; RESP 20
== END 2024-03-09 05:58 | disposition home or self-care (01) ==
LOC: EC 02:01
DX: M25.561 Pain in right knee (principal); F10.129 Alcohol abuse with intoxication, unspecified; F17.200 Nicotine dependence, unspecified, uncomplicated; F12.90 Cannabis use, unspecified, uncomplicated; Z91.040 Latex allergy status; Z88.7 Allergy status to serum and vaccine; Z88.8 Allergy status to other drugs, medicaments and biological substances; Z88.5 Allergy status to narcotic agent; Z91.018 Allergy to other foods; W18.30XA Fall on same level, unspecified, initial encounter
CPT/HCPCS: 72131; 99285

== ENCOUNTER 2024-03-10 01:59 | Observation (INO) | payer OTHER ==
--- NOTE | 2024-03-10 04:03 | ED ---
Fall HPI - General Chief Complaint: Fall Stated Complaint: Fall Time Seen by Provider: 03/10/24 02:01 Source: EMS Mode of arrival: EMS - History of Present Illness Initial Comments: 64-year-old female well-known to the emergency department who presents today for her third fall within the past 24 hours. Patient is an alcoholic. States that she had a fall in her kitchen. Unsure if she hit her head. Is complaining of low back pain. This is the patient's 10th visit to the emergency department this month. Patient is on Brilinta. HPI is limited because of the patient's intoxication - Related Data Home Medications Medication Instructions Recorded Confirmed Aspirin EC [Ecotrin Low Dose] 81 mg PO HS 02/11/19 03/08/24 Simvastatin [Zocor] 40 mg PO HS 07/03/22 03/08/24 Albuterol Nebulized [Ventolin 2.5 mg INHALATION RT-QID PRN 05/17/23 03/08/24 Nebulized] Budesonide/Formoterol Fumarate 2 puff INHALATION RT-HS 07/29/23 03/08/24 [Symbicort 160-4.5 Mcg Inhaler] Multivitamin [Multivitamins Adult 2 tab PO HS 12/04/23 03/08/24 Gummies] Pantoprazole [Protonix] 40 mg PO HS 01/02/24 03/08/24 Ibuprofen [Motrin Ib] 400 mg PO Q8H PRN 01/15/24 03/08/24 Ibuprofen [Motrin Ib] 600 mg PO HS 01/15/24 03/08/24 Brimonidine Tartrate [Alphagan P 1 drop BOTH EYES HS 02/02/24 03/08/24 0.2% Ophth Soln] Fluticasone Nasal [place] [Flonase 2 spray EA NOSTRIL HS 02/02/24 03/08/24 Nasal [place]] Famotidine [Pepcid] 20 mg PO HS 02/19/24 03/08/24 Nicotine 14Mg/24Hr Patch [Habitrol] 1 patch TRANSDERM HS 02/19/24 03/08/24 Thiamine [Vitamin B-1] 100 mg PO HS 02/19/24 03/08/24 Ticagrelor [Brilinta] 90 mg PO HS 02/26/24 03/08/24 Previous Rx's Medication Instructions Recorded Isosorbide Mononitrate ER [Imdur] 60 mg PO HS 30 Days #30 tab 12/07/23 Metoprolol Succinate (ER) [Toprol 100 mg PO HS 30 Days #30 tab 12/07/23 XL] Ipratropium-Albuterol Nebulize 3 ml INHALATION RT-Q2H PRN each 01/07/24 [Duoneb 0.5 mg-3 mg/3 ml Soln] Ipratropium-Albuterol Nebulize 3 ml INHALATION RT-QID #100 each 01/07/24 [Duoneb 0.5 mg-3 mg/3 ml Soln] Ondansetron Odt [Zofran ODT] 4 mg PO Q8HR PRN #20 tab 01/07/24 Artificial Tears-Hypromellose 1 drops BOTH EYES TID PRN #5 ml 02/14/24 [Artificial Tear Drops] Allergies Allergy/AdvReac Type Severity Reaction Status Date / Time [place] And Derivatives Allergy Rash/Hives Verified 03/08/24 16:50 [[place]] latex Allergy Rash/Hives Verified 03/08/24 16:50 Influenza Virus Vaccines AdvReac Nausea & Verified 03/08/24 16:50 Vomiting morphine AdvReac Nausea & Verified 03/08/24 16:50 Vomiting tomato AdvReac Diarrhea Verified 03/08/24 16:50 Review of Systems ROS Statement: Those systems with pertinent positive or pertinent negative responses have been documented in the HPI. ROS Other: All systems not noted in ROS Statement are negative. Past Medical History Past Medical History: Asthma, Coronary Artery Disease (CAD), COPD, CVA/TIA, Eye Disorder, Hypertension, Liver Disease, Myocardial Infarction ([place]), Seizure Disorder, Vascular Disorder Additional Past Medical History / Comment(s): Pt recently admitted to [facility] for diarrhea, ETOH abuse. 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 soon Last Myocardial Infarction Date:: aug 2018 History of Any Multi-Drug Resistant Organisms: None Reported Past Surgical History: Cholecystectomy, Heart Catheterization, Orthopedic Surgery Additional Past Surgical History / Comment(s): L caratid stent, bilateral knee surgeries for tendon repair, bartholian cyst removed bilateral wrists, cataracts Past Anesthesia/Blood Transfusion Reactions: Motion Sickness Additional Past Anesthesia/Blood Transfusion Reaction / Comment(s): Pt has received blood without reaction. Past Psychological History: Anxiety, Depression Smoking Status: Current every day smoker Past Alcohol Use History: Abuse, Daily, Heavy Past Drug Use History: Marijuana - Past Family History Mother Family Medical History: Cancer, Congestive Heart Failure (CHF), Coronary Artery Disease (CAD), Hyperlipidemia Additional Family Medical History / Comment(s): Mother at age 85 from lung cancer. Father Family Medical History: Cancer, COPD Additional Family Medical History / Comment(s): Father at age 63 from lung cancer. Brother(s) Additional Family Medical History / Comment(s): Patient has a total of 7 siblings. 5 are alive without any major medical problems she is aware of. 2 siblings have one from alcohol abuse and 1. Coronary artery disease. Daughter(s) Family Medical History: No Reported History Additional Family Medical History / Comment(s): Patient has one daughter with no major medical problems. Course Vital Signs 03/10/24 03/10/24 02:09 05:38 Temperature 97.7 F Pulse Rate 94 98 Respiratory 18 18 Rate Blood Pressure 149/91 99/69 O2 Sat by Pulse 97 96 Oximetry Medical Decision Making - Lab Data Result diagrams: 03/10/24 04:49 03/10/24 04:49 Lab Results 03/10/24 03/10/24 Range/Units 04:49 04:49 WBC 4.9 (3.8-10.6) k/uL RBC 3.81 (3.80-5.40) m/uL Hgb 12.0 (11.4-16.0) gm/dL Hct 36.4 (34.0-46.0) % MCV 95.4 (80.0-100.0) fL MCH 31.4 (25.0-35.0) pg MCHC 32.9 (31.0-37.0) g/dL RDW 17.6 H (11.5-15.5) % Plt Count 61 L (150-450) k/uL MPV 9.1 Neutrophils % 69 % Lymphocytes % 24 % Monocytes % 3 % Eosinophils % 1 % Basophils % 1 % Neutrophils # 3.4 (1.3-7.7) k/uL Lymphocytes # 1.2 (1.0-4.8) k/uL Monocytes # 0.2 (0-1.0) k/uL Eosinophils # 0.1 (0-0.7) k/uL Basophils # 0.1 (0-0.2) k/uL Anisocytosis Slight Macrocytosis Slight Sodium 140 (137-145) mmol/L Potassium 3.1 L (3.5-5.1) mmol/L Chloride 106 (98-107) mmol/L Carbon Dioxide 23 (22-30) mmol/L Anion Gap 11 mmol/L BUN 5 L (7-17) mg/dL Creatinine 0.48 L (0.52-1.04) mg/dL Est GFR (CKD-EPI)AfAm >90 (>60 ml/min/1.73 sqM) Est GFR (CKD-EPI)NonAf >90 (>60 ml/min/1.73 sqM) Glucose 97 (74-99) mg/dL Calcium 8.0 L (8.4-10.2) mg/dL Total Bilirubin 0.6 (0.2-1.3) mg/dL AST 92 H (14-36) U/L ALT 68 H (4-34) U/L Alkaline Phosphatase 234 H (38-126) U/L Total Protein 6.4 (6.3-8.2) g/dL Albumin 3.8 (3.5-5.0) g/dL Serum Alcohol 282 H* mg/dL Disposition Clinical Impression: Fall, Alcohol abuse, Alcohol intoxication, Hypokalemia Disposition: ADMITTED IP TO THIS HOSP Condition: Stable Is patient prescribed a controlled substance at d/c from ED?: No Referrals: Miya Johnson MD [Primary Care Provider] - 1-2 days Time of Disposition: 06:08 Decision to Admit Reason: Admit from EC Decision Date: 03/10/24 Decision Time: 06:08
[2024-03-10 04:56] LABS: Anisocytosis Slight; Basophils # (A) 0.1 k/uL (0-0.2); Basophils % (A) 1 %; Eosinophils # (A) 0.1 k/uL (0-0.7); Eosinophils % (A) 1 %; HCT 36.4 % (34.0-46.0); Lymphocytes # (A) 1.2 k/uL (1.0-4.8); Lymphocytes % (A) 24 %; MCH 31.4 pg (25.0-35.0); MCHC 32.9 g/dL (31.0-37.0); MCV 95.4 fL (80.0-100.0); Macrocytosis Slight; Mean Platelet Volume 9.1; Monocytes # (A) 0.2 k/uL (0-1.0); Monocytes % (A) 3 %; Neutrophils # (A) 3.4 k/uL (1.3-7.7); Neutrophils % (A) 69 %; RBC 3.81 m/uL (3.80-5.40); RDW 17.6 % (11.5-15.5); WBC 4.9 k/uL (3.8-10.6)
[2024-03-10 05:01] LABS: Platelet Count 61 k/uL (150-450)
[2024-03-10 05:18] LABS: Potassium 3.1 mmol/L (3.5-5.1)
[2024-03-10 05:19] LABS: ALT 68 U/L (4-34); AST 92 U/L (14-36); African American GFR (CKD) >90 (>60 ml/min/1.73 sqM); Albumin 3.8 g/dL (3.5-5.0); Alkaline Phosphatase 234 U/L (38-126); Anion Gap 11 mmol/L; Blood Urea Nitrogen 5 mg/dL (7-17); Carbon Dioxide 23 mmol/L (22-30); Chloride 106 mmol/L (98-107); Glucose 97 mg/dL (74-99); Non-African American GFR(CKD) >90 (>60 ml/min/1.73 sqM); Sodium 140 mmol/L (137-145); Total Bilirubin 0.6 mg/dL (0.2-1.3); Total Protein 6.4 g/dL (6.3-8.2)
--- NOTE | 2024-03-10 05:40 | XR ---
EXAM: XR Chest, 2 Views CLINICAL HISTORY: Fall, pain TECHNIQUE: Frontal and lateral views of the chest. COMPARISON: No relevant prior studies available. FINDINGS: Lungs: No consolidation. No atelectasis. No CHF. Pleural space: No pleural effusion. No pneumothorax. Heart: Mild cardiomegaly. Mediastinum: Unremarkable. Normal mediastinal contour. Bones/joints: Unremarkable. No acute fracture. IMPRESSION: Mild cardiomegaly. No acute post-traumatic abnormality.
--- NOTE | 2024-03-10 05:42 | XR ---
EXAM: XR Pelvis, 1 or 2 Views CLINICAL HISTORY: Fall, pain TECHNIQUE: Frontal view of the pelvis. COMPARISON: No relevant prior studies available. FINDINGS: Bones/joints: No acute fracture. No dislocation. Soft tissues: Atherosclerotic vascular calcifications. IMPRESSION: No acute post-traumatic abnormality.
--- NOTE | 2024-03-10 05:45 | XR ---
EXAM: XR Lumbosacral Spine, 3 Views CLINICAL HISTORY: Fall, pain TECHNIQUE: Frontal and lateral views of the lumbar spine and sacrum. COMPARISON: CT lumbar spine 03/09/2024. FINDINGS: Unchanged chronic appearing anterior superior compression fractures of L1 and L4 with anterior osteophytes. Maintenance of height of the remainder vertebral keenan. No subluxation. Bones are osteopenic. Degenerative changes greatest involving facet joints of the lower lumbar spine. Vascular calcifications. Right upper quadrant cholecystectomy clips. IMPRESSION: No acute post-traumatic abnormality.
--- NOTE | 2024-03-10 05:46 | XR ---
EXAM: XR Thoracic Spine, 2 Views CLINICAL HISTORY: Fall, pain TECHNIQUE: Frontal and lateral views of the thoracic spine. COMPARISON: CT chest 05/20/2020. FINDINGS: Vertebrae: No acute fracture. Maintenance of height of the vertebral bodies. Normal alignment. Disc spaces: No acute abnormality. No significant narrowing. Soft tissues: Unremarkable. IMPRESSION: No acute post-traumatic abnormality.
[2024-03-10 05:53] LABS: Alcohol 282 mg/dL
[2024-03-10] MEDS ORDERED: NALOXONE 0.4 MG/ML 1 ML VIAL IV PRN (06:08)
[2024-03-10] MEDS: POTASSIUM CHLORIDE ER 20 MEQ TAB.ER PO STA ×2 (06:23→18:06)
--- NOTE | 2024-03-10 06:41 | CT ---
EXAM: CT Head Without Intravenous Contrast CLINICAL HISTORY: ITS.REASON CT Reason: fall, head injury TECHNIQUE: Axial computed tomography images of the head/brain without intravenous contrast. CTDI is 45.2 mGy and DLP is 1004 mGy-cm. This CT exam was performed using one or more of the following dose reduction techniques: automated exposure control, adjustment of the mA and/or kV according to patient size, and/or use of iterative reconstruction technique. COMPARISON: Comparison made to prior head CT from November 17, 2023. 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 Remote ischemic injuries of the left frontal and parietal lobes with encephalomalacia and gliosis. No hemorrhage. No significant white matter disease. No edema. There is a small pineal cyst measuring 5.7 x 4.3 mm with minimal mass-effect on the adjacent tectal plate. Ventricles: Moderate ventriculomegaly. Bones/joints: Unremarkable. No acute fracture. Soft tissues: Unremarkable. Sinuses: Unremarkable as visualized. No acute sinusitis. Mastoid air cells: Unremarkable as visualized. No mastoid effusion. IMPRESSION: No evidence of acute intracranial pathology. 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 Recommend neurosurgical consult. EXAM: CT Cervical Spine Without Intravenous Contrast CLINICAL HISTORY: ITS.REASON CT Reason: fall, head injury TECHNIQUE: Axial computed tomography images of the cervical spine without intravenous contrast. CTDI is 11.4 mGy and DLP is 317.5 mGy-cm. This CT exam was performed using one or more of the following dose reduction techniques: automated exposure control, adjustment of the mA and/or kV according to patient size, and/or use of iterative reconstruction technique. COMPARISON: Comparison made to prior CT scan of the cervical spine from November 17, 2023. FINDINGS: Vertebrae: Unremarkable. No acute fracture. Discs/spinal canal/neural foramina: No acute findings. No spinal canal stenosis. Soft tissues: There is a metallic stent in the left common carotid and ICA. IMPRESSION: No evidence of acute cervical spine pathology.
[2024-03-10] MEDS ORDERED: ARTIFICIAL TEARS-HYPROMELLOSE DROPS 15 ML BTL BOTH EYES PRN (07:51)
[2024-03-10] MEDS ORDERED: ALBUTEROL NEBULIZED 2.5 MG/3 ML INHALATION PRN (07:51)
[2024-03-10] MEDS: SODIUM CHLORIDE 0.9% 1,000 ML IV SCH (08:25)
[2024-03-10] MEDS: ONDANSETRON ODT 4 MG TAB PO PRN (11:07)
[2024-03-10] MEDS: NICOTINE 14MG/24HR PATCH TRANSDERM SCH (12:39)
[2024-03-10] MEDS: PROCHLORPERAZINE INJ 10 MG/2 ML VIAL IVP STA (12:40)
[2024-03-10] MEDS: PANTOPRAZOLE 40 MG/10 ML VIAL IVP SCH (12:42)
--- NOTE | 2024-03-10 13:27 | P.HPIM ---
History of Present Illness 64-year-old female came in after a fall. Patient had multiple similar falls in the past patient is alcoholic and drinks alcohol on daily basis and falls. Patient leaves AMA and never follows any recommendation during her last hospita lization patient had an ankle fracture and orthopedic surgery recommended a boot and patient does not want to wear a boot and left the hospital AGAINST MEDICAL ADVICE. Patient fell again and is complaining of pain in the right hip hip x- ray will be obtained. Patient states she does not have money for transportation to go to counseling for alcohol but willing to quit alcohol. Patient has mild alcoholic hepatitis as well. REVIEW OF SYSTEMS: CONSTITUTIONAL: No fever, no malaise, no fatigue. HEENT: No recent visual problems or hearing problems. Denied any sore throat. CARDIOVASCULAR: No chest pain, orthopnea, PND, no palpitations, no syncope. PULMONARY: No shortness of breath, no cough, no hemoptysis. GASTROINTESTINAL: No diarrhea, no nausea, no vomiting, no abdominal pain. NEUROLOGICAL: No headaches, no weakness, no numbness. HEMATOLOGICAL: Denies any bleeding or petechiae. GENITOURINARY: Denies any burning micturition, frequency, or urgency. MUSCULOSKELETAL/RHEUMATOLOGICAL: Right hip pain ENDOCRINE: Denies any polyuria or polydipsia. The rest of the 14-point review of systems is negative. PHYSICAL EXAMINATION: GENERAL: The patient is alert and oriented x3, not in any acute distress. Well developed, well nourished. HEENT: Pupils are round and equally reacting to light. EOMI. No scleral icterus. No conjunctival pallor. Normocephalic, atraumatic. No pharyngeal erythema. No thyromegaly. CARDIOVASCULAR: S1 and S2 present. No murmurs, rubs, or gallops. PULMONARY: Chest is clear to auscultation, no wheezing or crackles. ABDOMEN: Soft, nontender, nondistended, normoactive bowel sounds. No palpable organomegaly. MUSCULOSKELETAL: No joint swelling or deformity. EXTREMITIES: No cyanosis, clubbing, or pedal edema. NEUROLOGICAL: Gross neurological examination did not reveal any focal deficits. SKIN: No rashes. Assessment and plan -Right hip pain secondary to fall will obtain hip x-ray all other imaging said that but I did not look at the pelvic x-ray whereby even doing hip x-ray did not show any fractures. Right hip pain is secondary to soft tissue injury will use Toradol for pain. Physical therapy occupational therapy evaluation -Alcohol abuse extensive counseling was provided social work will be consulted. -Hypokalemia secondary to chronic alcoholism potassium replaced -Thrombocytopenia secondary to alcoholism -COPD continues to smoke does have mild acute exacerbation will patient will be started on inhaled steroids and additional treatments will not require any systemic steroids -Hypertension: Patient is hypotensive patien -Seizure disorder Peripheral vascular disease Acute alcoholic hepatitis DVT prophylaxis: Lovenox Past Medical History Past Medical History: Asthma, Coronary Artery Disease (CAD), COPD, CVA/TIA, Eye Disorder, Hypertension, Liver Disease, Myocardial Infarction (CT), Seizure Disorder, Vascular Disorder Additional Past Medical History / Comment(s): Pt recently admitted to [facility] for diarrhea, ETOH abuse. 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 soon Last Myocardial Infarction Date:: aug 2018 History of Any Multi-Drug Resistant Organisms: None Reported Past Surgical History: Cholecystectomy, Heart Catheterization, Orthopedic Surgery Additional Past Surgical History / Comment(s): L caratid stent, bilateral knee surgeries for tendon repair, bartholian cyst removed bilateral wrists, cataracts Past Anesthesia/Blood Transfusion Reactions: Motion Sickness Additional Past Anesthesia/Blood Transfusion Reaction / Comment(s): Pt has received blood without reaction. Past Psychological History: Anxiety, Depression Smoking Status: Current every day smoker Past Alcohol Use History: Abuse, Daily, Heavy Past Drug Use History: Marijuana - Past Family History Mother Family Medical History: Cancer, Congestive Heart Failure (CHF), Coronary Artery Disease (CAD), Hyperlipidemia Additional Family Medical History / Comment(s): Mother at age 85 from lung cancer. Father Family Medical History: Cancer, COPD Additional Family Medical History / Comment(s): Father at age 63 from lung cancer. Brother(s) Additional Family Medical History / Comment(s): Patient has a total of 7 siblings. 5 are alive without any major medical problems she is aware of. 2 siblings have one from alcohol abuse and 1. Coronary artery disease. Daughter(s) Family Medical History: No Reported History Additional Family Medical History / Comment(s): Patient has one daughter with no major medical problems. Medications and Allergies Home Medications Medication Instructions Recorded Confirmed Type Aspirin EC [Ecotrin Low Dose] 81 mg PO HS 02/11/19 03/10/24 History Simvastatin [Zocor] 40 mg PO HS 07/03/22 03/10/24 History Albuterol Nebulized [Ventolin 2.5 mg INHALATION RT-QID PRN 05/17/23 03/10/24 History Nebulized] Budesonide/Formoterol Fumarate 2 puff INHALATION RT-HS 07/29/23 03/10/24 History [Symbicort 160-4.5 Mcg Inhaler] Multivitamin [Multivitamins Adult 2 tab PO HS 12/04/23 03/10/24 History Gummies] Isosorbide Mononitrate ER [Imdur] 60 mg PO HS 30 Days #30 tab 12/07/23 03/10/24 Rx Metoprolol Succinate (ER) [Toprol 100 mg PO HS 30 Days #30 tab 12/07/23 03/10/24 Rx XL] Pantoprazole [Protonix] 40 mg PO HS 01/02/24 03/10/24 History Ipratropium-Albuterol Nebulize 3 ml INHALATION RT-Q2H PRN each 01/07/24 03/10/24 Rx [Duoneb 0.5 mg-3 mg/3 ml Soln] Ipratropium-Albuterol Nebulize 3 ml INHALATION RT-QID #100 each 01/07/24 03/10/24 Rx [Duoneb 0.5 mg-3 mg/3 ml Soln] Ondansetron Odt [Zofran ODT] 4 mg PO Q8HR PRN #20 tab 01/07/24 03/10/24 Rx Ibuprofen [Motrin Ib] 400 mg PO Q8H PRN 01/15/24 03/10/24 History Ibuprofen [Motrin Ib] 600 mg PO HS 01/15/24 03/10/24 History Brimonidine Tartrate [Alphagan P 1 drop BOTH EYES HS 02/02/24 03/10/24 History 0.2% Ophth Soln] Fluticasone Nasal [place] [Flonase 2 spray EA NOSTRIL HS 02/02/24 03/10/24 History Nasal [place]] Famotidine [Pepcid] 20 mg PO HS 02/19/24 03/10/24 History Nicotine 14Mg/24Hr Patch [Habitrol] 1 patch TRANSDERM HS 02/19/24 03/10/24 History Thiamine [Vitamin B-1] 100 mg PO HS 02/19/24 03/10/24 History Ticagrelor [Brilinta] 90 mg PO HS 02/26/24 03/10/24 History Artificial Tears-Hypromellose 1 drop BOTH EYES TID PRN 03/10/24 03/10/24 History [Artificial Tear Drops] Allergies Allergy/AdvReac Type Severity Reaction Status Date / Time Fleming And Derivatives Allergy Rash/Hives Verified 03/10/24 07:36 [Fleming] latex Allergy Rash/Hives Verified 03/10/24 07:36 Influenza Virus Vaccines AdvReac Nausea & Verified 03/10/24 07:36 Vomiting morphine AdvReac Nausea & Verified 03/10/24 07:36 Vomiting tomato AdvReac Diarrhea Verified 03/10/24 07:36 Physical Exam Vitals: Vital Signs Temp Pulse Resp BP Pulse Ox 03/10/24 12:16 97.6 F 112 H 18 109/86 98 03/10/24 07:35 97.4 F L 106 H 20 97/68 98 03/10/24 05:38 98 18 99/69 96 03/10/24 02:09 97.7 F 94 18 149/91 97 Intake and Output 03/09/24 03/10/24 03/10/24 22:59 06:59 14:59 Other: Weight 76.657 kg Results CBC & Chem 7: 03/10/24 04:49 03/10/24 04:49 Labs: Abnormal Lab Results - Last 24 Hours (Table) 03/10/24 03/10/24 Range/Units 04:49 04:49 RDW 17.6 H (11.5-15.5) % Plt Count 61 L (150-450) k/uL Potassium 3.1 L (3.5-5.1) mmol/L BUN 5 L (7-17) mg/dL Creatinine 0.48 L (0.52-1.04) mg/dL Calcium 8.0 L (8.4-10.2) mg/dL AST 92 H (14-36) U/L ALT 68 H (4-34) U/L Alkaline Phosphatase 234 H (38-126) U/L Serum Alcohol 282 H* mg/dL
[2024-03-10] MEDS ORDERED: LORazepam 2 MG/ML INJ IV PRN (16:09)
[2024-03-10] MEDS ORDERED: ONDANSETRON ODT 4 MG TAB PO PRN (16:12)
[2024-03-10] MEDS: LORazepam 2 MG/ML INJ IV PRN ×2 (16:24→19:02)
[2024-03-10] MEDS: POTASSIUM CHLORIDE 10 MEQ in WATER FOR INJECTION 1 100ML.BAG IVPB SCH (19:06)
[2024-03-10] MEDS: SYMBICORT 160-4.5 MCG INHALER INHALATION SCH (20:51)
[2024-03-10] MEDS ORDERED: NICOTINE 14MG/24HR PATCH TRANSDERM SCH (21:00)
[2024-03-10] MEDS ORDERED: PANTOPRAZOLE 40 MG TABLET PO SCH (21:00)
[2024-03-10] MEDS ORDERED: FAMOTIDINE 20 MG TAB PO SCH (21:00)
[2024-03-10] MEDS: FLUTICASONE 50MCG/SPRAY NASAL 16GM EA NOSTRIL SCH (21:09)
[2024-03-10] MEDS: TICAGRELOR 90 MG TAB PO SCH (21:09)
[2024-03-10] MEDS: ISOSORBIDE MONONITRATE ER 60 MG TAB.ER.24H PO SCH (21:09)
[2024-03-10] MEDS: ATORVASTATIN 20 MG TAB PO SCH (21:09)
[2024-03-10] MEDS: ASPIRIN 81 MG PO SCH (21:09)
[2024-03-10] MEDS: MULTIVITAMINS, THERA 1 EACH TAB PO SCH (21:09)
[2024-03-10] MEDS: THIAMINE 100 MG TAB PO SCH (21:09)
[2024-03-10] MEDS: BRIMONIDINE TARTRATE 0.2% DROPS 5 ML BTL BOTH EYES SCH (21:10)
[2024-03-10] MEDS: METOPROLOL SUCCINATE (ER) 100 MG TAB.ER.24H PO SCH (21:29)
[2024-03-10] MEDS: chlordiazePOXIDE 25 MG CAP PO SCH (21:29)
[2024-03-11 10:18] LABS: African American GFR (CKD) >90 (>60 ml/min/1.73 sqM); Anion Gap 6 mmol/L; Blood Urea Nitrogen 6 mg/dL (7-17); Calcium 7.9 mg/dL (8.4-10.2); Carbon Dioxide 23 mmol/L (22-30); Chloride 106 mmol/L (98-107); Glucose 82 mg/dL (74-99); Non-African American GFR(CKD) >90 (>60 ml/min/1.73 sqM); Potassium 3.7 mmol/L (3.5-5.1); Sodium 135 mmol/L (137-145)
[2024-03-11 10:20] LABS: Anisocytosis Slight; Basophils % (A) 1 %; Eosinophils # (A) 0.1 k/uL (0-0.7); Eosinophils % (A) 2 %; HCT 31.5 % (34.0-46.0); HGB 10.3 gm/dL (11.4-16.0); Lymphocytes # (A) 0.9 k/uL (1.0-4.8); Lymphocytes % (A) 28 %; MCH 31.7 pg (25.0-35.0); MCHC 32.7 g/dL (31.0-37.0); MCV 97.1 fL (80.0-100.0); Macrocytosis Slight; Mean Platelet Volume 10.9; Monocytes # (A) 0.2 k/uL (0-1.0); Monocytes % (A) 7 %; Neutrophils # (A) 1.9 k/uL (1.3-7.7); Neutrophils % (A) 61 %; RBC 3.24 m/uL (3.80-5.40); RDW 17.4 % (11.5-15.5); WBC 3.1 k/uL (3.8-10.6)
[2024-03-11 10:21] LABS: Platelet Count 42 k/uL (150-450)
[2024-03-11 15:31] VITALS: RESP 18
--- NOTE | 2024-03-11 16:00 | P.PN ---
Subjective Progress Note Date: 03/11/24 64-year-old female came in after a fall. Patient had multiple similar falls in the past patient is alcoholic and drinks alcohol on daily basis and falls. Patient leaves AMA and never follows any recommendation during her last hospitalization patient had an ankle fracture and orthopedic surgery recommended a boot and patient does not want to wear a boot and left the hospital AGAINST MEDICAL ADVICE. Patient fell again and is complaining of pain in the right hip hip x-ray will be obtained. Patient states she does not have money for transportation to go to counseling for alcohol but willing to quit alcohol. Patient has mild alcoholic hepatitis as well. 03/11/2024 Patient is evaluated today in the ER pending a bed on the medical floor. Patient is continuing to display signs of alcohol withdrawal she is having upper extremity tremors and is fatigued resting in bed. She does continue to report pain to the bilateral hip. An x-ray of her right hip was taken and is currently pending the report at this time. Platelet count is 44 today. Patient is wanting to discharge home once she is sober and has been evaluated by physical therapy she may be discharged home in the next 24 hours. Review of Systems Constitutional: Denied any fatigue denied any fever. Cardio vascular: denied any chest pain, palpitations Gastrointestinal: denied any nausea, vomiting, diarrhea Pulmonary: Denied any shortness of breath cough Neurologic denied any new focal deficits All inpatient medications were reviewed and appropriate changes in these medications as dictated in the interval history and assessment and plan. PHYSICAL EXAMINATION: GENERAL: The patient is alert and oriented x3, not in any acute distress. Well developed, well nourished. HEENT: Pupils are round and equally reacting to light. EOMI. No scleral icterus. No conjunctival pallor. Normocephalic, atraumatic. No pharyngeal erythema. No thyromegaly. CARDIOVASCULAR: S1 and S2 present. No murmurs, rubs, or gallops. PULMONARY: Chest is clear to auscultation, no wheezing or crackles. ABDOMEN: Soft, nontender, nondistended, normoactive bowel sounds. No palpable organomegaly. MUSCULOSKELETAL: No joint swelling or deformity. EXTREMITIES: No cyanosis, clubbing, or pedal edema. NEUROLOGICAL: Gross neurological examination did not reveal any focal deficits. SKIN: No rashes. Assessment and plan -Right hip pain secondary to fall, right hip x-ray reports currently pending patient is on NSAID therapy and will be evaluated by physical therapy -Alcohol abuse extensive counseling was provided social work will be consulted. -Hypokalemia secondary to chronic alcoholism potassium replaced -Thrombocytopenia secondary to alcoholism -COPD continues to smoke does have mild acute exacerbation will patient will be started on inhaled steroids and additional treatments will not require any systemic steroids -Hypertension -Seizure disorder -Peripheral vascular disease -Acute alcoholic hepatitis DVT prophylaxis: Lovenox Prophylaxis on Protonix Full code Patient will remain on Ativan CIWA protocol as well as librium Physical therapy to evaluate the patient. Patient does not want to quit alcohol has issues with outside support and resources as she does not have transportation. Possible D/C home in the next 24 hours. The impression and plan of care has been dictated by Karina Medina, Nurse Practitioner as directed. Dr. Jackelin MD I have performed a history and physical examination and medical decision making of this patient, discussed the same with the dictator, and agree with the dictators assessment and plan as written, documented as a scribe. Based on total visit time, I have performed more than 50% of this visit. Objective - Vital Signs Vital signs: Vital Signs Temp 98.4 F 03/11/24 14:49 Pulse 84 03/11/24 14:49 Resp 18 03/11/24 14:49 BP 125/72 03/11/24 14:49 Pulse Ox 97 03/11/24 14:49 FiO2 - Labs CBC & Chem 7: 03/11/24 09:00 03/11/24 09:00 Labs: Abnormal Lab Results - Last 24 Hours (Table) 03/11/24 03/11/24 Range/Units 09:00 09:00 WBC 3.1 L (3.8-10.6) k/uL RBC 3.24 L (3.80-5.40) m/uL Hgb 10.3 L (11.4-16.0) gm/dL Hct 31.5 L (34.0-46.0) % RDW 17.4 H (11.5-15.5) % Plt Count 42 L (150-450) k/uL Lymphocytes # 0.9 L (1.0-4.8) k/uL Sodium 135 L (137-145) mmol/L BUN 6 L (7-17) mg/dL Creatinine 0.41 L (0.52-1.04) mg/dL Calcium 7.9 L (8.4-10.2) mg/dL Assessment and Plan Time with Patient: Less than 30
[2024-03-11] MEDS: KETOROLAC 15 MG/ML 1 ML VIAL IVP PRN (21:04)
[2024-03-12 08:59] VITALS: BP 104/66; PULSE 88; TEMP 98.1
--- NOTE | 2024-03-12 10:18 | XR ---
EXAMINATION TYPE: XR Hip Complete RT, XR pelvis AP view DATE OF EXAM: 03/10/2024 1:23 PM CLINICAL INDICATION:Female, 64 years old with history of Injury; [facility] COMPARISON: None. TECHNIQUE: XR Hip Complete RT, XR pelvis AP view; hip was examined in the frontal and lateral project ions and a AP pelvis. FINDINGS: No evidence for acute process, joint dislocation or significant soft tissue swelling. Osteo phyte formation of the superior acetabulum of the hips bilaterally. There is mild joint space narrowi ng bilaterally. Atherosclerosis of the arterial vasculature. IMPRESSION: 1. No evidence for acute process. 2. Mild bilateral hip osteoarthrosis.
[2024-03-12 11:29] LABS: WBC 2.1 k/uL (3.8-10.6)
[2024-03-12 11:30] LABS: Anisocytosis Slight; Basophils % (A) 1 %; Eosinophils # (A) 0.1 k/uL (0-0.7); Eosinophils % (A) 3 %; HCT 27.4 % (34.0-46.0); Hypochromasia Slight; Lymphocytes # (A) 0.6 k/uL (1.0-4.8); Lymphocytes % (A) 30 %; MCH 31.6 pg (25.0-35.0); MCHC 30.9 g/dL (31.0-37.0); Macrocytosis Moderate; Mean Platelet Volume 11.3; Monocytes # (A) 0.1 k/uL (0-1.0); Monocytes % (A) 5 %; Neutrophils # (A) 1.2 k/uL (1.3-7.7); Neutrophils % (A) 56 %; RBC 2.67 m/uL (3.80-5.40); RDW 17.4 % (11.5-15.5)
[2024-03-12 11:36] LABS: HGB 8.4 gm/dL (11.4-16.0); MCV 102.5 fL (80.0-100.0); Platelet Count 34 k/uL (150-450)
[2024-03-12 11:51] LABS: ALT 37 U/L (8-44); AST 62 U/L (13-35); Albumin 3.2 g/dL (3.8-4.9); Albumin/Globulin Ratio 1.78 Ratio (1.60-3.17); Alkaline Phosphatase 160 U/L (41-126); BUN/Creat Ratio 11.83 Ratio (12.00-20.00); Blood Urea Nitrogen 7.1 mg/dL (9.0-27.0); Calcium 8.2 mg/dL (8.7-10.3); Carbon Dioxide 21.2 mmol/L (21.6-31.8); Chloride 103 mmol/L (96-109); Globulin 1.8 g/dL (1.6-3.3); Glucose 118 mg/dL (70-110); Magnesium 1.6 mg/dL (1.5-2.4); Potassium 2.8 mmol/L (3.5-5.5); Sodium 136 mmol/L (135-145); Total Bilirubin 0.4 mg/dL (0.3-1.2)
[2024-03-12] MEDS: POTASSIUM CHLORIDE ER 20 MEQ TAB.ER PO STA (12:21)
[2024-03-12] MEDS ORDERED: Magnesium Replacement Protocol 1 EACH MISC MISCELLANE PRN (13:12)
[2024-03-12] MEDS ORDERED: MAGNESIUM SULFATE-D5W PMX 1 GM in DEXTROSE/WATER 1 100ML.BAG IVPB SCH (13:15)
[2024-03-12] MEDS: POTASSIUM CHLORIDE ER 20 MEQ TAB.ER PO ONE (13:29)
--- NOTE | 2024-03-14 09:09 | P.DS ---
Providers Date of admission: 03/10/24 06:32 Attending physician: Kelsie Barry MD Primary care physician: Miya Johnson Hospital Course: Final Diagnosis -Right hip pain secondary to fall, xrays negative for acute/subacute fracture -Alcohol abuse extensive counseling was provided social work will be consulted. -Hypokalemia secondary to chronic alcoholism potassium replaced -Thrombocytopenia secondary to alcoholism -COPD continues to smoke does have mild acute exacerbation will patient will be started on inhaled steroids and additional treatments will not require any systemic steroids -Hypertension -Seizure disorder -Peripheral vascular disease -Acute alcoholic hepatitis Discharge Disposition Patient is stable for discharge home with overall guarded prognosis patient is high risk for re admission due to continue use of alcohol and falls. Patient does not have many resources or transportation but does want to quit alcohol. Patient does not want any librium or ativan on discharge and has not had any in over 24 hours with no further evidence that patient is actively withdrawing. Patient to continue on oral potassium and magnesium supplementation daily. Recommend to repeat blood work in 2 to 3 days. Follow up with PCP Dr. Miya Johnson in 1 to 2 days. Hospital Course This is a 64-year-old female came in after a fall. Patient had multiple similar falls in the past patient is alcoholic and drinks alcohol on daily basis and falls. Patient leaves AMA and never follows any recommendation during her last hospitalization patient had an ankle fracture and orthopedic surgery recommended a boot and patient does not want to wear a boot and left the hospital AGAINST MEDICAL ADVICE. Patient fell again and is complaining of pain in the right hip. Patient states she does not have money for transportation to go to counseling for alcohol but willing to quit alcohol. Patient has mild alcoholic hepatitis as well. Was admitted to the hospital under medicine and monitored on ativan ciwa protocol and scheduled librium. Clinically patient has improved. Xrays were taken and negative for acute/subacute fracture of the pelvis and hips. Patient required aggressive potassium replacement. Was evaluated by PT wanting to go home and refusing rehab. Patient advised to quit alcohol states she is willing and is given community resources. Please see medication reconciliation for a list of current medications. Thank you for allowing us to participate in the care of this patient. The impression and plan of care has been dictated by Karina Medina, Nurse Practitioner as directed. Dr. Jackelin MD I have performed a history and physical examination and medical decision making of this patient, discussed the same with the dictator, and agree with the dictators assessment and plan as written, documented as a scribe. Based on total visit time, I have performed more than 50% of this visit. Patient Condition at Discharge: Fair Plan - Discharge Summary New Discharge Prescriptions: New Potassium Chloride ER [K-Dur 20] 20 meq PO DAILY #30 tab Magnesium Oxide [Mag-Ox] 400 mg PO DAILY #30 tablet Continue Aspirin EC [Ecotrin Low Dose] 81 mg PO HS Budesonide/Formoterol Fumarate [Symbicort 160-4.5 Mcg Inhaler] 2 puff INHALATION RT-HS Multivitamin [Multivitamins Adult Gummies] 2 tab PO HS Metoprolol Succinate (ER) [Toprol XL] 100 mg PO HS 30 Days #30 tab Ipratropium-Albuterol Nebulize [Duoneb 0.5 mg-3 mg/3 ml Soln] 3 ml INHALATION RT-QID #100 each Ipratropium-Albuterol Nebulize [Duoneb 0.5 mg-3 mg/3 ml Soln] 3 ml INHALATION RT-Q2H PRN each PRN Reason: Shortness Of Breath Or Wheezing Ibuprofen [Motrin Ib] 400 mg PO Q8H PRN PRN Reason: Pain Ibuprofen [Motrin Ib] 600 mg PO HS Famotidine [Pepcid] 20 mg PO HS Thiamine [Vitamin B-1] 100 mg PO HS Simvastatin [Zocor] 40 mg PO HS Albuterol Nebulized [Ventolin Nebulized] 2.5 mg INHALATION RT-QID PRN PRN Reason: Shortness Of Breath Isosorbide Mononitrate ER [Imdur] 60 mg PO HS 30 Days #30 tab Pantoprazole [Protonix] 40 mg PO HS Ondansetron Odt [Zofran ODT] 4 mg PO Q8HR PRN #20 tab PRN Reason: Nausea Brimonidine Tartrate [Alphagan P 0.2% Ophth Soln] 1 drop BOTH EYES HS Fluticasone Nasal [place] [Flonase Nasal [place]] 2 spray EA NOSTRIL HS Nicotine 14Mg/24Hr Patch [Habitrol] 1 patch TRANSDERM HS Ticagrelor [Brilinta] 90 mg PO HS Artificial Tears-Hypromellose [Artificial Tear Drops] 1 drop BOTH EYES TID PRN PRN Reason: Dry Eye(S) Discharge Medication List Aspirin EC [Ecotrin Low Dose] 81 mg PO HS 02/11/19 [History] Simvastatin [Zocor] 40 mg PO HS 07/03/22 [History] Albuterol Nebulized [Ventolin Nebulized] 2.5 mg INHALATION RT-QID PRN 05/17/23 [History] Budesonide/Formoterol Fumarate [Symbicort 160-4.5 Mcg Inhaler] 2 puff INHALATION RT-HS 07/29/23 [History] Multivitamin [Multivitamins Adult Gummies] 2 tab PO HS 12/04/23 [History] Isosorbide Mononitrate ER [Imdur] 60 mg PO HS 30 Days #30 tab 12/07/23 [Rx] Metoprolol Succinate (ER) [Toprol XL] 100 mg PO HS 30 Days #30 tab 12/07/23 [Rx] Pantoprazole [Protonix] 40 mg PO HS 01/02/24 [History] Ipratropium-Albuterol Nebulize [Duoneb 0.5 mg-3 mg/3 ml Soln] 3 ml INHALATION RT-Q2H PRN each 01/07/24 [Rx] Ipratropium-Albuterol Nebulize [Duoneb 0.5 mg-3 mg/3 ml Soln] 3 ml INHALATION RT-QID #100 each 01/07/24 [Rx] Ondansetron Odt [Zofran ODT] 4 mg PO Q8HR PRN #20 tab 01/07/24 [Rx] Ibuprofen [Motrin Ib] 400 mg PO Q8H PRN 01/15/24 [History] Ibuprofen [Motrin Ib] 600 mg PO HS 01/15/24 [History] Brimonidine Tartrate [Alphagan P 0.2% Ophth Soln] 1 drop BOTH EYES HS 02/02/24 [History] Fluticasone Nasal [place] [Flonase Nasal [place]] 2 spray EA NOSTRIL HS 02/02/24 [History] Famotidine [Pepcid] 20 mg PO HS 02/19/24 [History] Nicotine 14Mg/24Hr Patch [Habitrol] 1 patch TRANSDERM HS 02/19/24 [History] Thiamine [Vitamin B-1] 100 mg PO HS 02/19/24 [History] Ticagrelor [Brilinta] 90 mg PO HS 02/26/24 [History] Artificial Tears-Hypromellose [Artificial Tear Drops] 1 drop BOTH EYES TID PRN 03/10/24 [History] Magnesium Oxide [Mag-Ox] 400 mg PO DAILY #30 tablet 03/12/24 [Rx] Potassium Chloride ER [K-Dur 20] 20 meq PO DAILY #30 tab 03/12/24 [Rx] Follow up Appointment(s)/Referral(s): Miya Johnson MD [Primary Care Provider] - 1-2 days (Rigoberto from the office will call with a follow up appointment tomorrow.) Ambulatory/Diagnostic Orders: Basic Metabolic Panel [LAB.AMB] Time Frame: 3 Days, Location: None Selected Magnesium [LAB.AMB] Location: None Selected Activity/Diet/Wound Care/Special Instructions: Recommend to quit drinking alcohol Continue on potassium and magnesium daily. Repeat labs in 2 to 3 days. Discharge/Stand Alone Forms: AA Meetings [facility] Discharge Disposition: HOME SELF-CARE
== END 2024-03-12 14:15 | disposition home or self-care (01) ==
LOC: EC 01:59 → 5NMEDONC 06:32
PROVIDERS: ADMIT Internal Medicine; ATTEND Internal Medicine
DX: M25.551 Pain in right hip (principal); W19.XXXA Unspecified fall, initial encounter; F10.229 Alcohol dependence with intoxication, unspecified; E87.6 Hypokalemia; K70.10 Alcoholic hepatitis without ascites; G40.909 Epilepsy, unspecified, not intractable, without status epilepticus; I73.9 Peripheral vascular disease, unspecified; I25.10 Atherosclerotic heart disease of native coronary artery without angina pectoris; J44.9 Chronic obstructive pulmonary disease, unspecified; I10 Essential (primary) hypertension; F32.A Depression, unspecified; F41.9 Anxiety disorder, unspecified; F17.200 Nicotine dependence, unspecified, uncomplicated; I25.2 Old myocardial infarction; I69.351 Hemiplegia and hemiparesis following cerebral infarction affecting right dominant side; Y90.8 Blood alcohol level of 240 mg/100 ml or more; Z79.02 Long term (current) use of antithrombotics/antiplatelets; Z79.51 Long term (current) use of inhaled steroids; Z79.82 Long term (current) use of aspirin; Z79.899 Other long term (current) drug therapy; Z88.5 Allergy status to narcotic agent; Z91.040 Latex allergy status
CPT/HCPCS: 96376 ×3; 96361 ×4; 96375 ×2; 96365; 96366; 99285; 36415; 94640 ×3; 97162; 97166; 80053 ×2; 80048; 83735; 85025 ×3; 72070; 72100; 72170; 73502; 71046; 72125; 70450; G0378 ×3; G0480; S4990 ×3; J2060 ×2; J0780; J3480; J1885 ×2; C9113 ×3; 80320

== ENCOUNTER 2024-03-14 20:17 | Observation (INO) | payer OTHER ==
--- NOTE | 2024-03-14 21:21 | ED ---
General Adult HPI - General Chief complaint: Alcohol Stated complaint: ETOH Withdrawls Time Seen by Provider: 03/14/24 20:32 Source: patient, RN notes reviewed, old records reviewed Mode of arrival: EMS Limitations: no limitations - History of Present Illness Initial comments: 64-year-old female presenting with generalized weakness, alcohol withdrawal. Patient states her last drink was yesterday. She was admitted to the hospital with alcohol intoxication and subsequent withdrawal symptoms. Patient denies fever. Denies chest pain. Denies nausea or vomiting. - Related Data Home Medications Medication Instructions Recorded Confirmed Aspirin EC [Ecotrin Low Dose] 81 mg PO HS 02/11/19 03/10/24 Simvastatin [Zocor] 40 mg PO HS 07/03/22 03/10/24 Albuterol Nebulized [Ventolin 2.5 mg INHALATION RT-QID PRN 05/17/23 03/10/24 Nebulized] Budesonide/Formoterol Fumarate 2 puff INHALATION RT-HS 07/29/23 03/10/24 [Symbicort 160-4.5 Mcg Inhaler] Multivitamin [Multivitamins Adult 2 tab PO HS 12/04/23 03/10/24 Gummies] Pantoprazole [Protonix] 40 mg PO HS 01/02/24 03/10/24 Ibuprofen [Motrin Ib] 400 mg PO Q8H PRN 01/15/24 03/10/24 Ibuprofen [Motrin Ib] 600 mg PO HS 01/15/24 03/10/24 Brimonidine Tartrate [Alphagan P 1 drop BOTH EYES HS 02/02/24 03/10/24 0.2% Ophth Soln] Fluticasone Nasal [place] [Flonase 2 spray EA NOSTRIL HS 02/02/24 03/10/24 Nasal [place]] Famotidine [Pepcid] 20 mg PO HS 02/19/24 03/10/24 Nicotine 14Mg/24Hr Patch [Habitrol] 1 patch TRANSDERM HS 02/19/24 03/10/24 Thiamine [Vitamin B-1] 100 mg PO HS 02/19/24 03/10/24 Ticagrelor [Brilinta] 90 mg PO HS 02/26/24 03/10/24 Artificial Tears-Hypromellose 1 drop BOTH EYES TID PRN 03/10/24 03/10/24 [Artificial Tear Drops] Previous Rx's Medication Instructions Recorded Isosorbide Mononitrate ER [Imdur] 60 mg PO HS 30 Days #30 tab 12/07/23 Metoprolol Succinate (ER) [Toprol 100 mg PO HS 30 Days #30 tab 12/07/23 XL] Ipratropium-Albuterol Nebulize 3 ml INHALATION RT-Q2H PRN each 01/07/24 [Duoneb 0.5 mg-3 mg/3 ml Soln] Ipratropium-Albuterol Nebulize 3 ml INHALATION RT-QID #100 each 01/07/24 [Duoneb 0.5 mg-3 mg/3 ml Soln] Ondansetron Odt [Zofran ODT] 4 mg PO Q8HR PRN #20 tab 01/07/24 Magnesium Oxide [Mag-Ox] 400 mg PO DAILY #30 tablet 03/12/24 Potassium Chloride ER [K-Dur 20] 20 meq PO DAILY #30 tab 03/12/24 Allergies Allergy/AdvReac Type Severity Reaction Status Date / Time [place] And Derivatives Allergy Rash/Hives Verified 03/14/24 20:22 [[place]] latex Allergy Rash/Hives Verified 03/14/24 20:22 Influenza Virus Vaccines AdvReac Nausea & Verified 03/14/24 20:22 Vomiting morphine AdvReac Nausea & Verified 03/14/24 20:22 Vomiting tomato AdvReac Diarrhea Verified 03/14/24 20:22 Review of Systems ROS Statement: Those systems with pertinent positive or pertinent negative responses have been documented in the HPI. ROS Other: All systems not noted in ROS Statement are negative. Past Medical History Past Medical History: Asthma, Coronary Artery Disease (CAD), COPD, CVA/TIA, Eye Disorder, Hypertension, Liver Disease, Myocardial Infarction (CO), Seizure Disorder, Vascular Disorder Additional Past Medical History / Comment(s): Pt recently admitted to [facility] for diarrhea, ETOH abuse. 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 soon Last Myocardial Infarction Date:: aug 2018 History of Any Multi-Drug Resistant Organisms: None Reported Past Surgical History: Cholecystectomy, Heart Catheterization, Orthopedic Surgery Additional Past Surgical History / Comment(s): L caratid stent, bilateral knee surgeries for tendon repair, bartholian cyst removed bilateral wrists, cataracts Past Anesthesia/Blood Transfusion Reactions: Motion Sickness Additional Past Anesthesia/Blood Transfusion Reaction / Comment(s): Pt has received blood without reaction. Past Psychological History: Anxiety, Depression Smoking Status: Current every day smoker Past Alcohol Use History: Abuse, Daily, Heavy Past Drug Use History: Marijuana - Past Family History Mother Family Medical History: Cancer, Congestive Heart Failure (CHF), Coronary Artery Disease (CAD), Hyperlipidemia Additional Family Medical History / Comment(s): Mother at age 85 from lung cancer. Father Family Medical History: Cancer, COPD Additional Family Medical History / Comment(s): Father at age 63 from lung cancer. Brother(s) Additional Family Medical History / Comment(s): Patient has a total of 7 siblings. 5 are alive without any major medical problems she is aware of. 2 siblings have one from alcohol abuse and 1. Coronary artery disease. Daughter(s) Family Medical History: No Reported History Additional Family Medical History / Comment(s): Patient has one daughter with no major medical problems. General Exam Limitations: no limitations General appearance: alert, in no apparent distress, anxious Head exam: Present: atraumatic, normocephalic Eye exam: Present: normal appearance, PERRL ENT exam: Present: mucous membranes dry Neck exam: Present: normal inspection. Absent: tenderness, meningismus Respiratory exam: Present: normal lung sounds bilaterally. Absent: respiratory distress, wheezes Cardiovascular Exam: Present: regular rate, normal rhythm GI/Abdominal exam: Present: soft. Absent: distended, tenderness, guarding, rebo und Extremities exam: Present: normal inspection Neurological exam: Present: alert, oriented X3. Absent: motor sensory deficit Psychiatric exam: Present: anxious Skin exam: Present: warm, dry, intact Course Vital Signs 03/14/24 20:21 Temperature 97.4 F L Pulse Rate 61 Respiratory 18 Rate Blood Pressure 156/104 O2 Sat by Pulse 98 Oximetry Medical Decision Making - Medical Decision Making Was pt. sent in by a medical professional or institution (, PA, TRANSITION M[facility], urgent care, hospital, or long term...) When possible be specific @ -No Did you speak to anyone other than the patient for history (EMS, parent, family, police, friend...)? What history was obtained from this source @ -No Did you review nursing and triage notes (agree or disagree)? Why? @ -I reviewed and agree with nursing and triage notes Were old charts reviewed (outside hosp., previous admission, EMS record, old EKG, old radiological studies, urgent care reports/EKG's, long term records)? Report findings @ -No old charts were reviewed Differential Diagnosis alcohol intoxication, alcohol withdrawal, electrolyte abnormality EKG interpreted by me (3pts min.). @Sinus tachycardia rate of 100, MT interval 127, QRS duration 95, QTc [address] segment elevation. X-rays interpreted by me (1pt min.). @ -None done CT interpreted by me (1pt min.). @ -None done U/S interpreted by me (1pt. min.). @ -None done What testing was considered but not performed or refused? (CT, X-rays, U/S, labs)? Why? @ -None What meds were considered but not given or refused? Why? @ -None Did you discuss the management of the patient with other professionals (professionals i.e. , PA, TRANSITION M[facility], lab, RT, psych nurse, forensic social worker, aadc plans staff officer, teacher, forest fire control officer, case consultant)? Give summary @ -No Was smoking cessation discussed for >3mins.? @ -No Was critical care preformed (if so, how long)? @ -No Were there social determinants of health that impacted care today? How? (Homelessness, low income, unemployed, alcoholism, drug addiction, transportation, low edu. Level, literacy, decrease access to med. care, chcf, rehab)? @ -No Was there de-escalation of care discussed even if they declined (Discuss DNR or withdrawal of care, Hospice)? DNR status @ -No What co-morbidities impacted this encounter? (DM, HTN, Smoking, COPD, CAD, Cancer, CVA, ARF, Chemo, Hep., AIDS, mental health diagnosis, sleep apnea, mo rbid obesity)? @ -[Alcohol abuse Was patient admitted / discharged? Hospital course, mention meds given and route, prescriptions, significant lab abnormalities, going to OR and other pertinent info. @ -64-year-old female with alcohol withdrawal, generalized weakness and difficulty ambulating. Patient has mild alcoholic hepatitis. Her alcohol level is nondetectable. She does have withdrawal symptoms and has a magnesium of 1.1. She is given IV mid magnesium and will be observed for her withdrawal symptoms. This patient may benefit from alcohol rehabilitation. Undiagnosed new problem with uncertain prognosis? @ -No Drug Therapy requiring intensive monitoring for toxicity (Heparin, Nitro, Insulin, Cardizem)? @ -No Were any procedures done? @ -No Diagnosis/symptom? @ -Hypomagnesemia, generalized weakness, alcohol withdrawal Acute, or Chronic, or Acute on Chronic? @ -Default Uncomplicated (without systemic symptoms) or Complicated (systemic symptoms)? @ -Default Side effects of treatment? @ -No Exacerbation, Progression, or Severe Exacerbation? @ -No Poses a threat to life or bodily function? How? (Chest pain, [place], CO, pneumonia, PE, COPD, DKA, ARF, appy, cholecystitis, CVA, Diverticulitis, Homicidal, Suicidal, threat to staff... and all critical care pts) @Yes, delirium tremens - Lab Data Result diagrams: 03/14/24 21:06 03/14/24 21:06 Lab Results 03/14/24 03/14/24 Range/Units 21:06 21:06 WBC 4.5 (3.8-10.6) k/uL RBC 3.46 L (3.80-5.40) m/uL Hgb 11.0 L (11.4-16.0) gm/dL Hct 34.2 (34.0-46.0) % MCV 99.1 (80.0-100.0) fL MCH 31.8 (25.0-35.0) pg MCHC 32.1 (31.0-37.0) g/dL RDW 18.2 H (11.5-15.5) % Plt Count 78 L D (150-450) k/uL MPV 8.8 Neutrophils % 67 % Lymphocytes % 21 % Monocytes % 7 % Eosinophils % 2 % Basophils % 1 % Neutrophils # 3.0 (1.3-7.7) k/uL Lymphocytes # 0.9 L (1.0-4.8) k/uL Monocytes # 0.3 (0-1.0) k/uL Eosinophils # 0.1 (0-0.7) k/uL Basophils # 0.0 (0-0.2) k/uL Anisocytosis Slight Macrocytosis Slight Sodium 138 (137-145) mmol/L Potassium 3.6 (3.5-5.1) mmol/L Chloride 104 (98-107) mmol/L Carbon Dioxide 24 (22-30) mmol/L Anion Gap 10 mmol/L BUN 11 (7-17) mg/dL Creatinine 0.47 L (0.52-1.04) mg/dL Est GFR (CKD-EPI)AfAm >90 (>60 ml/min/1.73 sqM) Est GFR (CKD-EPI)NonAf >90 (>60 ml/min/1.73 sqM) Glucose 138 H (74-99) mg/dL Calcium 8.5 (8.4-10.2) mg/dL Magnesium 1.1 L (1.6-2.3) mg/dL Total Bilirubin 0.7 (0.2-1.3) mg/dL AST 93 H (14-36) U/L ALT 55 H (4-34) U/L Alkaline Phosphatase 189 H (38-126) U/L Total Protein 6.3 (6.3-8.2) g/dL Albumin 3.6 (3.5-5.0) g/dL Serum Alcohol <10 mg/dL Disposition Clinical Impression: Hypomagnesemia, Alcoholic liver disease, Alcohol withdrawal Disposition: ADMITTED IP TO [facility] Condition: Stable Is patient prescribed a controlled substance at d/c from ED?: No Referrals: Miya Johnson MD [Primary Care Provider] - 1-2 days Time of Disposition: 22:16
[2024-03-14] MEDS: LORazepam 2 MG/ML INJ IV STA (21:26)
[2024-03-14 21:32] LABS: Anisocytosis Slight; Basophils % (A) 1 %; Eosinophils # (A) 0.1 k/uL (0-0.7); Eosinophils % (A) 2 %; HCT 34.2 % (34.0-46.0); Lymphocytes # (A) 0.9 k/uL (1.0-4.8); Lymphocytes % (A) 21 %; MCH 31.8 pg (25.0-35.0); MCHC 32.1 g/dL (31.0-37.0); MCV 99.1 fL (80.0-100.0); Macrocytosis Slight; Mean Platelet Volume 8.8; Monocytes # (A) 0.3 k/uL (0-1.0); Monocytes % (A) 7 %; Neutrophils % (A) 67 %; RBC 3.46 m/uL (3.80-5.40); RDW 18.2 % (11.5-15.5); WBC 4.5 k/uL (3.8-10.6)
[2024-03-14 21:57] LABS: ALT 55 U/L (4-34); AST 93 U/L (14-36); African American GFR (CKD) >90 (>60 ml/min/1.73 sqM); Albumin 3.6 g/dL (3.5-5.0); Alcohol <10 mg/dL; Alkaline Phosphatase 189 U/L (38-126); Anion Gap 10 mmol/L; Blood Urea Nitrogen 11 mg/dL (7-17); Calcium 8.5 mg/dL (8.4-10.2); Carbon Dioxide 24 mmol/L (22-30); Chloride 104 mmol/L (98-107); Glucose 138 mg/dL (74-99); Magnesium 1.1 mg/dL (1.6-2.3); Non-African American GFR(CKD) >90 (>60 ml/min/1.73 sqM); Potassium 3.6 mmol/L (3.5-5.1); Sodium 138 mmol/L (137-145); Total Bilirubin 0.7 mg/dL (0.2-1.3); Total Protein 6.3 g/dL (6.3-8.2)
[2024-03-14 22:09] LABS: Platelet Count 78 k/uL (150-450)
[2024-03-14] MEDS ORDERED: LORazepam 2 MG/ML INJ IV PRN ×2 (22:14)
[2024-03-14] MEDS ORDERED: NALOXONE 0.4 MG/ML 1 ML VIAL IV PRN (22:14)
[2024-03-14] MEDS: SODIUM CHLORIDE 0.9% 1,000 ML IV SCH (22:36)
[2024-03-14] MEDS: MAGNESIUM SULFATE-D5W PMX 1 GM in DEXTROSE/WATER 1 100ML.BAG IVPB SCH (22:36)
[2024-03-14] MEDS: THIAMINE 100 MG/ML 2 ML VIAL IM STA (22:38)
[2024-03-14] MEDS: KETOROLAC 15 MG/ML 1 ML VIAL IVP STA (23:01)
[2024-03-15] MEDS: LORazepam 2 MG/ML INJ IV PRN (03:13)
[2024-03-15] MEDS: THIAMINE 100 MG TAB PO SCH ×2 (09:57→21:49)
[2024-03-15] MEDS ORDERED: ARTIFICIAL TEARS-HYPROMELLOSE DROPS 15 ML BTL BOTH EYES PRN (11:51)
[2024-03-15] MEDS ORDERED: ONDANSETRON ODT 4 MG TAB PO PRN (11:51)
[2024-03-15] MEDS ORDERED: IBUPROFEN 200 MG TAB PO PRN (11:51)
[2024-03-15] MEDS ORDERED: ALBUTEROL NEBULIZED 2.5 MG/3 ML INHALATION PRN (11:51)
--- NOTE | 2024-03-15 11:59 | P.HPIM ---
History of Present Illness H&P Date: 03/15/24 This is a 64-year-old female with medical history significant for chronic alcoholism, coronary artery disease with prior cardiac catheterization, carotid artery stenosis with prior stenting, stroke, COPD, asthma, seizure disorder. Patient has frequent readmission secondary to alcoholism and falling. Patient is also a daily smoker. Patient was discharged in the hospital 3 days ago where she was admitted for low magnesium and alcohol withdrawal patient was eval by physical therapy 3 days ago and was felt stable to return home with home care services. Patient states on the day of discharge she drank about 2 shots of alcohol to finish out the bottle and has not had any alcohol since. Earlier in the day yesterday patient states that she was dizzy lightheaded and felt shaky states that she took her potassium magnesium supplementation she felt little bit better her prescriptions were delivered to the house and she was going about her usual day. Patient was then attempting to ambulate in her house when she became weak states her legs were not working and fell to the floor she states that she did not hit her head or lose consciousness. She reports numbness and weakness in her upper extremites bilaterally. She was unable to stand, and finally was able to call EMS. She is denying chest pain, shortness of breath. No nausea vomiting or diarrhea. At the time my examination patient is alert x 3 with no focal neurological deficits and she does report that the heaviness in her legs has improved. Strength is 5/5 upper and lower extremities with no ataxia noted. She states that when she came into the hospital and a gave her 2 bags of IV magnesium as she was found to be low at 1.1 she felt better. Patient states that she does not feel that she is actively withdrawing at this time and would like to return home after being evaluated physical therapy. She continues to report that she would like to quit alcohol and has not been actively drinking over the last couple days. REVIEW OF SYSTEMS: CONSTITUTIONAL: No fever, no malaise, no fatigue. HEENT: No recent visual problems or hearing problems. Denied any sore throat. CARDIOVASCULAR: No chest pain, orthopnea, PND, no palpitations, no syncope. PULMONARY: No shortness of breath, no cough, no hemoptysis. GASTROINTESTINAL: No diarrhea, no nausea, no vomiting, no abdominal pain. NEUROLOGICAL: No headaches, no weakness, no numbness. HEMATOLOGICAL: Denies any bleeding or petechiae. GENITOURINARY: Denies any burning micturition, frequency, or urgency. MUSCULOSKELETAL/RHEUMATOLOGICAL: Denies any joint pain, swelling, or any muscle pain. ENDOCRINE: Denies any polyuria or polydipsia. The rest of the 14-point review of systems is negative. PHYSICAL EXAMINATION: GENERAL: The patient is alert and oriented x3, not in any acute distress. Well developed, well nourished. HEENT: Pupils are round and equally reacting to light. EOMI. No scleral icterus. No conjunctival pallor. Normocephalic, atraumatic. No pharyngeal erythema. No thyromegaly. CARDIOVASCULAR: S1 and S2 present. No murmurs, rubs, or gallops. PULMONARY: Chest is clear to auscultation, no wheezing or crackles. ABDOMEN: Soft, nontender, nondistended, normoactive bowel sounds. No palpable organomegaly. MUSCULOSKELETAL: No joint swelling or deformity. EXTREMITIES: No cyanosis, clubbing, or pedal edema. NEUROLOGICAL: Gross neurological examination did not reveal any focal deficits. SKIN: No rashes. 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 -Right hip pain secondary to fall, xrays negative for acute/subacute fracture -Alcohol abuse extensive counseling was provided patient has outside resources from her prior hospitalization was discharged 3 days ago. She is set up for counsels on aging. -Hypokalemia secondary to chronic alcoholism potassium replaced -Hypomagnesemia secondary to chronic alcoholism magnesium was replaced and pending a repeat levels. -Thrombocytopenia secondary to alcoholism improved from prior hospitalization -COPD continues to smoke patient is resumed on her home inhalers -Hypertension -Seizure disorder -History of stroke maintained on aspirin and Brilinta at at bedtime. Patient has been compliant with these medications. -Peripheral vascular disease -Acute alcoholic hepatitis GI prophylaxis DVT prophylaxis subcutaneous heparin need to monitor platelet counts if it drops below 50 then heparin will be held patient is no signs of active bleeding the thrombocytopenia is secondary to alcoholism Electrolytes will be replaced and repeat levels pending at this time if magnesium has improved and patient is evaluated physical therapy patient can be discharged home later on today. The impression and plan of care has been dictated by Karina Medina, Nurse Practitioner as directed. Dr. Jackelin MD I have performed a history and physical examination and medical decision making of this patient, discussed the same with the dictator, and agree with the dictators assessment and plan as written, documented as a scribe. Based on total visit time, I have performed more than 50% of this visit. Past Medical History Past Medical History: Asthma, Coronary Artery Disease (CAD), COPD, CVA/TIA, Eye Disorder, Hypertension, Liver Disease, Myocardial Infarction (CT), Seizure Disorder, Vascular Disorder Additional Past Medical History / Comment(s): Pt recently admitted to [facility] for diarrhea, ETOH abuse. 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 soon Last Myocardial Infarction Date:: aug 2018 History of Any Multi-Drug Resistant Organisms: None Reported Past Surgical History: Cholecystectomy, Heart Catheterization, Orthopedic Surgery Additional Past Surgical History / Comment(s): L caratid stent, bilateral knee surgeries for tendon repair, bartholian cyst removed bilateral wrists, cataracts Past Anesthesia/Blood Transfusion Reactions: Motion Sickness Additional Past Anesthesia/Blood Transfusion Reaction / Comment(s): Pt has received blood without reaction. Past Psychological History: Anxiety, Depression Smoking Status: Current every day smoker Past Alcohol Use History: Abuse, Daily, Heavy Past Drug Use History: Marijuana - Past Family History Mother Family Medical History: Cancer, Congestive Heart Failure (CHF), Coronary Artery Disease (CAD), Hyperlipidemia Additional Family Medical History / Comment(s): Mother at age 85 from lung cancer. Father Family Medical History: Cancer, COPD Additional Family Medical History / Comment(s): Father at age 63 from lung cancer. Brother(s) Additional Family Medical History / Comment(s): Patient has a total of 7 siblings. 5 are alive without any major medical problems she is aware of. 2 siblings have one from alcohol abuse and 1. Coronary artery disease. Daughter(s) Family Medical History: No Reported History Additional Family Medical History / Comment(s): Patient has one daughter with no major medical problems. Medications and Allergies Home Medications Medication Instructions Recorded Confirmed Type Aspirin EC [Ecotrin Low Dose] 81 mg PO HS 02/11/19 03/15/24 History Simvastatin [Zocor] 40 mg PO HS 07/03/22 03/15/24 History Albuterol Nebulized [Ventolin 2.5 mg INHALATION RT-QID PRN 05/17/23 03/15/24 History Nebulized] Budesonide/Formoterol Fumarate 2 puff INHALATION RT-HS 07/29/23 03/15/24 History [Symbicort 160-4.5 Mcg Inhaler] Multivitamin [Multivitamins Adult 2 tab PO HS 12/04/23 03/15/24 History Gummies] Isosorbide Mononitrate ER [Imdur] 60 mg PO HS 30 Days #30 tab 12/07/23 03/15/24 Rx Metoprolol Succinate (ER) [Toprol 100 mg PO HS 30 Days #30 tab 12/07/23 03/15/24 Rx XL] Pantoprazole [Protonix] 40 mg PO HS 01/02/24 03/15/24 History Ipratropium-Albuterol Nebulize 3 ml INHALATION RT-Q2H PRN each 01/07/24 03/15/24 Rx [Duoneb 0.5 mg-3 mg/3 ml Soln] Ipratropium-Albuterol Nebulize 3 ml INHALATION RT-QID #100 each 01/07/24 03/15/24 Rx [Duoneb 0.5 mg-3 mg/3 ml Soln] Ondansetron Odt [Zofran ODT] 4 mg PO Q8HR PRN #20 tab 01/07/24 03/15/24 Rx Ibuprofen [Motrin Ib] 400 mg PO Q8H PRN 01/15/24 03/15/24 History Ibuprofen [Motrin Ib] 600 mg PO HS 01/15/24 03/15/24 History Brimonidine Tartrate [Alphagan P 1 drop BOTH EYES HS 02/02/24 03/15/24 History 0.2% Ophth Soln] Fluticasone Nasal [place] [Flonase 2 spray EA NOSTRIL HS 02/02/24 03/15/24 History Nasal [place]] Famotidine [Pepcid] 20 mg PO HS 02/19/24 03/15/24 History Nicotine 14Mg/24Hr Patch [Habitrol] 1 patch TRANSDERM HS 02/19/24 03/15/24 History Thiamine [Vitamin B-1] 100 mg PO HS 02/19/24 03/15/24 History Ticagrelor [Brilinta] 90 mg PO HS 02/26/24 03/15/24 History Artificial Tears-Hypromellose 1 drop BOTH EYES TID PRN 03/10/24 03/15/24 History [Artificial Tear Drops] Magnesium Oxide [Mag-Ox] 400 mg PO 03/15/24 03/15/24 History Potassium Chloride ER [K-Dur 20] 20 meq PO HS 03/15/24 03/15/24 History Allergies Allergy/AdvReac Type Severity Reaction Status Date / Time [place] And Derivatives Allergy Rash/Hives Verified 03/15/24 09:36 [[place]] latex Allergy Rash/Hives Verified 03/15/24 09:36 Influenza Virus Vaccines AdvReac Nausea & Verified 03/15/24 09:36 Vomiting morphine AdvReac Nausea & Verified 03/15/24 09:36 Vomiting tomato AdvReac Diarrhea Verified 03/15/24 09:36 Physical Exam Vitals: Vital Signs Temp Pulse Resp BP Pulse Ox 03/15/24 11:31 81 17 145/99 99 03/15/24 10:00 77 16 130/73 97 03/15/24 08:00 98.1 F 94 16 127/91 99 03/15/24 06:55 89 18 134/96 95 03/15/24 05:06 84 26 H 135/92 99 03/15/24 04:00 94 18 138/102 98 03/15/24 03:00 97 16 126/101 97 03/15/24 02:00 93 16 148/111 97 03/15/24 01:00 89 19 122/86 100 03/15/24 00:00 92 16 128/90 96 03/14/24 23:00 96 18 139/93 96 03/14/24 22:00 93 16 119/97 95 03/14/24 20:21 97.4 F L 61 18 156/104 98 Intake and Output 03/14/24 03/15/24 03/15/24 22:59 06:59 14:59 Other: Voiding Method Bedpan Diaper Incontinent Weight 76.657 kg Results CBC & Chem 7: 03/14/24 21:06 03/14/24 21:06 Labs: Abnormal Lab Results - Last 24 Hours (Table) 03/14/24 03/14/24 Range/Units 21:06 21:06 RBC 3.46 L (3.80-5.40) m/uL Hgb 11.0 L (11.4-16.0) gm/dL RDW 18.2 H (11.5-15.5) % Plt Count 78 L D (150-450) k/uL Lymphocytes # 0.9 L (1.0-4.8) k/uL Creatinine 0.47 L (0.52-1.04) mg/dL Glucose 138 H (74-99) mg/dL Magnesium 1.1 L (1.6-2.3) mg/dL AST 93 H (14-36) U/L ALT 55 H (4-34) U/L Alkaline Phosphatase 189 H (38-126) U/L Assessment and Plan Time with Patient: Less than 30
[2024-03-15 15:01] LABS: African American GFR (CKD) >90 (>60 ml/min/1.73 sqM); Anion Gap 6 mmol/L; Blood Urea Nitrogen 7 mg/dL (7-17); Calcium 8.2 mg/dL (8.4-10.2); Carbon Dioxide 26 mmol/L (22-30); Chloride 104 mmol/L (98-107); Glucose 95 mg/dL (74-99); Non-African American GFR(CKD) >90 (>60 ml/min/1.73 sqM); Potassium 3.1 mmol/L (3.5-5.1); Sodium 136 mmol/L (137-145)
[2024-03-15 16:00] LABS: Magnesium 1.7 mg/dL (1.6-2.3)
[2024-03-15] MEDS: NICOTINE 14MG/24HR PATCH TRANSDERM SCH (17:57)
[2024-03-15] MEDS: POTASSIUM CHLORIDE ER 20 MEQ TAB.ER PO SCH ×2 (21:48→23:46)
[2024-03-15] MEDS: PANTOPRAZOLE 40 MG TABLET PO SCH (21:48)
[2024-03-15] MEDS: TICAGRELOR 90 MG TAB PO SCH (21:48)
[2024-03-15] MEDS: MAGNESIUM OXIDE 400 MG TAB PO SCH (21:48)
[2024-03-15] MEDS: ATORVASTATIN 20 MG TAB PO SCH (21:49)
[2024-03-15] MEDS: ASPIRIN 81 MG PO SCH (21:49)
[2024-03-15] MEDS: HEPARIN SODIUM,PORCINE 5,000 UNIT/ML 1 ML VIAL SQ SCH (21:53)
[2024-03-15] MEDS: METOPROLOL SUCCINATE (ER) 100 MG TAB.ER.24H PO SCH (21:53)
[2024-03-15] MEDS: MULTIVITAMINS, THERA 1 EACH TAB PO SCH (21:53)
[2024-03-15] MEDS: ISOSORBIDE MONONITRATE ER 60 MG TAB.ER.24H PO SCH (21:53)
[2024-03-15] MEDS: FLUTICASONE 50MCG/SPRAY NASAL 16GM EA NOSTRIL SCH (21:55)
[2024-03-15] MEDS: BRIMONIDINE TARTRATE 0.2% DROPS 5 ML BTL BOTH EYES SCH (21:55)
[2024-03-15] MEDS ORDERED: Magnesium Replacement Protocol 1 EACH MISC MISCELLANE PRN (23:26)
[2024-03-15] MEDS: SYMBICORT 160-4.5 MCG INHALER INHALATION SCH (23:27)
[2024-03-15] MEDS: MAGNESIUM SULFATE-D5W PMX 1 GM in DEXTROSE/WATER 1 100ML.BAG IVPB ONE (23:45)
[2024-03-16 07:03] LABS: African American GFR (CKD) >90 (>60 ml/min/1.73 sqM); Anion Gap 5 mmol/L; Blood Urea Nitrogen 11 mg/dL (7-17); Calcium 8.8 mg/dL (8.4-10.2); Carbon Dioxide 28 mmol/L (22-30); Chloride 106 mmol/L (98-107); Glucose 84 mg/dL (74-99); Non-African American GFR(CKD) >90 (>60 ml/min/1.73 sqM); Potassium 4.2 mmol/L (3.5-5.1); Sodium 139 mmol/L (137-145)
[2024-03-16] MEDS ORDERED: LORazepam 1 MG/0.5 ML VIAL IV PRN ×3 (08:24→08:25)
--- NOTE | 2024-03-16 09:54 | XR ---
Lumbar spine. HISTORY: Bilateral leg weakness following fall. COMPARISON: 03/10/2024. TECHNIQUE: 3 views of the lumbar spine were obtained. FINDINGS: There are chronic compression fractures, mild involving the superior endplate of L1 and moderate invo lving the superior endplate of L4 no new fractures are seen. The lumbar vertebral segments are normal in alignment. There is mild to moderate disc space narrowing and spondylosis from L1 through L5 Visualized sacrum and SI joints are normal. IMPRESSION: 1. Chronic compression fractures of L1 and L4 as described above. 2. Mild to moderate degenerative disease from L1 through L5. 3. No acute changes to the lumbar spine.
[2024-03-16] MEDS: LOSARTAN 25 MG TAB PO SCH (10:34)
--- NOTE | 2024-03-16 15:44 | P.PN ---
Subjective Progress Note Date: 03/16/24 This is a 64-year-old female with medical history significant for chronic alcoholism, coronary artery disease with prior cardiac catheterization, carotid artery stenosis with prior stenting, stroke, COPD, asthma, seizure disorder. Patient has frequent readmission secondary to alcoholism and falling. Patient is also a daily smoker. Patient was discharged in the hospital 3 days ago where she was admitted for low magnesium and alcohol withdrawal patient was eval by physical therapy 3 days ago and was felt stable to return home with home care services. Patient states on the day of discharge she drank about 2 shots of alcohol to finish out the bottle and has not had any alcohol since. Earlier in the day yesterday patient states that she was dizzy lightheaded and felt shaky states that she took her potassium magnesium supplementation she felt little bit better her prescriptions were delivered to the house and she was going about her usual day. Patient was then attempting to ambulate in her house when she became weak states her legs were not working and fell to the floor she states that she did not hit her head or lose consciousness. She reports numbness and weakness in her upper extremites bilaterally. She was unable to stand, and finally was able to call EMS. She is denying chest pain, shortness of breath. No nausea vomiting or diarrhea. At the time my examination patient is alert x 3 with no focal neurological deficits and she does report that the heaviness in her legs has improved. Strength is 5/5 upper and lower extremities with no ataxia noted. She states that when she came into the hospital and a gave her 2 bags of IV magnesium as she was found to be low at 1.1 she felt better. Patient states that she does not feel that she is actively withdrawing at this time and would like to return home after being evaluated physical therapy. She continues to report that she would like to quit alcohol and has not been actively drinking over the last couple days. 03/16/2024 Patient is evaluated in follow up on the medical floor. Pending physical therapy evaluation. Patient has been unable to ambulate without assistance and having difficulty with transfers from the bed to the bedside commode. Patient continues to report weakness and pain to the lower extremities and lumbar xray will be ordered for further evaluation as she has had frequent falls at home. Patient not having any signs of acute alcohol withdrawal at this time. Potassium and magnesium levels have normalized. Review of Systems Constitutional: Denied any fatigue denied any fever. Cardio vascular: denied any chest pain, palpitations Gastrointestinal: denied any nausea, vomiting, diarrhea Pulmonary: Denied any shortness of breath cough Neurologic denied any new focal deficits: Reports lower extremity weakness. All inpatient medications were reviewed and appropriate changes in these medications as dictated in the interval history and assessment and plan. PHYSICAL EXAMINATION: GENERAL: The patient is alert and oriented x3, not in any acute distress. Well developed, well nourished. HEENT: Pupils are round and equally reacting to light. EOMI. No scleral icterus. No conjunctival pallor. Normocephalic, atraumatic. No pharyngeal erythema. No thyromegaly. CARDIOVASCULAR: S1 and S2 present. No murmurs, rubs, or gallops. PULMONARY: Chest is clear to auscultation, no wheezing or crackles. ABDOMEN: Soft, nontender, nondistended, normoactive bowel sounds. No palpable organomegaly. MUSCULOSKELETAL: No joint swelling or deformity. EXTREMITIES: No cyanosis, clubbing, or pedal edema. NEUROLOGICAL: Gross neurological examination did not reveal any focal deficits. SKIN: No rashes. 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 Check a vitamin B12 and folate level. -Right hip pain secondary to fall, xrays negative for acute/subacute fracture -Alcohol abuse extensive counseling was provided patient has outside resources from her prior hospitalization was discharged 3 days ago. She is set up for counsels on aging. -Hypokalemia secondary to chronic alcoholism potassium replaced -Hypomagnesemia secondary to chronic alcoholism magnesium was replaced and pending a repeat levels. -Thrombocytopenia secondary to alcoholism improved from prior hospitalization -COPD continues to smoke patient is resumed on her home inhalers -Hypertension -Seizure disorder -History of stroke maintained on aspirin and Brilinta at at bedtime. Patient has been compliant with these medications. -Peripheral vascular disease -Acute alcoholic hepatitis GI prophylaxis DVT prophylaxis subcutaneous heparin need to monitor platelet counts if it drops below 50 then heparin will be held patient is no signs of active bleeding the thrombocytopenia is secondary to alcoholism Continue to monitor electrolytes and replace as needed. Pending PT and OT consultation for discharge planning which will be done on sunday. Check vitamin B12 and folate level. Continue to monitor for alcohol withdrawal symptoms. The impression and plan of care has been dictated by Karina Medina, Nurse Practitioner as directed. Dr. Jackelin MD I have performed a history and physical examination and medical decision making of this patient, discussed the same with the dictator, and agree with the dictators assessment and plan as written, documented as a scribe. Based on total visit time, I have performed more than 50% of this visit. Objective - Vital Signs Vital signs: Vital Signs Temp 97.5 F L 03/16/24 11:30 Pulse 82 03/16/24 11:30 Resp 18 03/16/24 11:30 BP 187/100 03/16/24 11:30 Pulse Ox 98 03/16/24 11:30 FiO2 Intake & Output 03/15/24 03/16/24 03/16/24 18:59 06:59 18:59 Weight 76.657 kg Other: Voiding Method Bedpan Bedpan Diaper Diaper Incontinent Incontinent External Catheter External Catheter # Voids 2 3 # Bowel Movements 2 - Labs CBC & Chem 7: 03/14/24 21:06 03/16/24 05:52 Labs: Abnormal Lab Results - Last 24 Hours (Table) 03/15/24 Range/Units 14:12 Sodium 136 L (137-145) mmol/L Potassium 3.1 L (3.5-5.1) mmol/L Creatinine 0.45 L (0.52-1.04) mg/dL Calcium 8.2 L (8.4-10.2) mg/dL
[2024-03-16] MEDS: LOSARTAN 25 MG TAB PO STA (16:47)
[2024-03-16 19:46] VITALS: RESP 16
[2024-03-16] MEDS: hydrALAZINE HCL 20 MG/ML 1 ML VIAL IVP STA (20:57)
[2024-03-16] MEDS: NICOTINE 21MG/24HR PATCH TRANSDERM SCH (20:58)
[2024-03-16] MEDS: IPRATROPIUM-ALBUTEROL 3 ML NEB INHALATION PRN (21:43)
[2024-03-17] MEDS: ALPRAZolam 0.5 MG TAB PO STA (00:09)
[2024-03-17] MEDS: IBUPROFEN 400 MG TAB PO PRN (03:33)
[2024-03-17] MEDS: LOSARTAN 50 MG TAB PO SCH (07:55)
[2024-03-17 12:06] VITALS: BP 122/82; PULSE 99; TEMP 97.4
--- NOTE | 2024-03-19 08:37 | P.DS ---
Providers Date of admission: 03/14/24 22:14 Attending physician: Mark Cardoza Primary care physician: Miya Johnson Hospital Course: Final Diagnosis -Generalized weakness and falls secondary to medical debility and peripheral neuropathy Patient has peripheral neuropathy this is alcohol induced which is exacerbated by low magnesium and potassium levels. -Right hip pain secondary to fall, xrays negative for acute/subacute fracture -Alcohol abuse extensive counseling was provided patient has outside resources from her prior hospitalization was discharged 3 days ago. -Hypokalemia secondary to chronic alcoholism potassium replaced -Hypomagnesemia secondary to chronic alcoholism -Thrombocytopenia secondary to alcoholism improved from prior hospitalization -COPD continues to smoke patient is resumed on her home inhalers -Hypertension -Seizure disorder -History of stroke maintained on aspirin and Brilinta at at bedtime. -Peripheral vascular disease -Acute alcoholic hepatitis Discharge Disposition Patient is stable for discharge with overall guarded prognosis and patient is at high risk for readmission secondary to continued alcohol use and falls. Patient was evaluated by physical therapy who did recommend subacute rehab however patient has refused at this time and would like to discharge home. Patient does verbalize that she is willing and wants to quit alcohol and per the patient she has not had a drink in over 5 days now. Patient is alert and oriented has been up ambulating with her walker. She does report that her lower extremity weakness and paresthesias have been improved since her magnesium and potassium levels have been normalized. Patient to follow-up with her PCP Dr. Miya Jonhson in 1 to 2 days. She was given prescriptions for repeat BMP CBC magnesium level in 2 to 3 days. Hospital Course This is a 64-year-old female with medical history significant for chronic alcoholism, coronary artery disease with prior cardiac catheterization, carotid artery stenosis with prior stenting, stroke, COPD, asthma, seizure disorder. Patient has frequent readmission secondary to alcoholism and falling. Patient is also a daily smoker. Patient was discharged in the hospital 3 days ago where she was admitted for low magnesium and alcohol withdrawal patient was eval by physical therapy 3 days ago and was felt stable to return home with home care services. Patient states on the day of discharge she drank about 2 shots of a lcohol to finish out the bottle and has not had any alcohol since. Earlier in the day yesterday patient states that she was dizzy lightheaded and felt shaky states that she took her potassium magnesium supplementation she felt little bit better her prescriptions were delivered to the house and she was going about her usual day. Patient was then attempting to ambulate in her house when she became weak states her legs were not working and fell to the floor she states that she did not hit her head or lose consciousness. She reports numbness and weakness in her upper extremites bilaterally. She was unable to stand, and finally was able to call EMS. She is denying chest pain, shortness of breath. No nausea vomiting or diarrhea. At the time my examination patient is alert x 3 with no focal ne urological deficits and she does report that the heaviness in her legs has improved. Strength is 5/5 upper and lower extremities with no ataxia noted. She states that when she came into the hospital and a gave her 2 bags of IV magnesium as she was found to be low at 1.1 she felt better. Patient states that she does not feel that she is actively withdrawing at this time and would like to return home after being evaluated physical therapy. She continues to report that she would like to quit alcohol and has not been actively drinking over the last couple days. Patient was monitored and given magnesium and potassium supplementation with her electrolytes now within normal limits. She has had no signs of alcohol withdrawal this admission. Patient to continue on oral magnesium and potassium supplement daily on discharge. Did refuse discharge to subacute rehab and will be a high risk for re admission due to frequent falls at home. Patient does live alone. She is alert x 3 with no focal neurological deficits. Hemodynamically she is stable. No chest pain, no shortness of breath reported. Tolerating idiet. Bowels are moving and she is urinating without difficulty. Lungs are clear, S1 S2 auscultated abdomen is soft and nontender. Please see medication reconciliation for a list of current medications. Thank you for allowing us to participate in the care of this patient. The impression and plan of care has been dictated by Karina Medina Nurse Practitioner as directed. Dr. Jackelin MD I have performed a history and physical examination and medical decision making of this patient, discussed the same with the dictator, and agree with the dictators assessment and plan as written, documented as a scribe. Based on total visit time, I have performed more than 50% of this visit. Patient Condition at Discharge: Fair Plan - Discharge Summary Discharge Rx Participant: No New Discharge Prescriptions: Continue Aspirin EC [Ecotrin Low Dose] 81 mg PO HS Budesonide/Formoterol Fumarate [Symbicort 160-4.5 Mcg Inhaler] 2 puff INHALATION RT-HS Multivitamin [Multivitamins Adult Gummies] 2 tab PO HS Metoprolol Succinate (ER) [Toprol XL] 100 mg PO HS 30 Days #30 tab Ipratropium-Albuterol Nebulize [Duoneb 0.5 mg-3 mg/3 ml Soln] 3 ml INHALATION RT-QID #100 each Ipratropium-Albuterol Nebulize [Duoneb 0.5 mg-3 mg/3 ml Soln] 3 ml INHALATION RT-Q2H PRN each PRN Reason: Shortness Of Breath Or Wheezing Ibuprofen [Motrin Ib] 400 mg PO Q8H PRN PRN Reason: Pain Ibuprofen [Motrin Ib] 600 mg PO HS Famotidine [Pepcid] 20 mg PO HS Thiamine [Vitamin B-1] 100 mg PO HS Magnesium Oxide [Mag-Ox] 400 mg PO HS Simvastatin [Zocor] 40 mg PO HS Albuterol Nebulized [Ventolin Nebulized] 2.5 mg INHALATION RT-QID PRN PRN Reason: Shortness Of Breath Isosorbide Mononitrate ER [Imdur] 60 mg PO HS 30 Days #30 tab Pantoprazole [Protonix] 40 mg PO HS Ondansetron Odt [Zofran ODT] 4 mg PO Q8HR PRN #20 tab PRN Reason: Nausea Brimonidine Tartrate [Alphagan P 0.2% Ophth Soln] 1 drop BOTH EYES HS Fluticasone Nasal [place] [Flonase Nasal [place]] 2 spray EA NOSTRIL HS Nicotine 14Mg/24Hr Patch [Habitrol] 1 patch TRANSDERM HS Ticagrelor [Brilinta] 90 mg PO HS Artificial Tears-Hypromellose [Artificial Tear Drops] 1 drop BOTH EYES TID PRN PRN Reason: Dry Eye(S) Potassium Chloride ER [K-Dur 20] 20 meq PO HS Discharge Medication List Aspirin EC [Ecotrin Low Dose] 81 mg PO HS 02/11/19 [History] Simvastatin [Zocor] 40 mg PO HS 07/03/22 [History] Albuterol Nebulized [Ventolin Nebulized] 2.5 mg INHALATION RT-QID PRN 05/17/23 [History] Budesonide/Formoterol Fumarate [Symbicort 160-4.5 Mcg Inhaler] 2 puff INHALATION RT-HS 07/29/23 [History] Multivitamin [Multivitamins Adult Gummies] 2 tab PO HS 12/04/23 [History] Isosorbide Mononitrate ER [Imdur] 60 mg PO HS 30 Days #30 tab 12/07/23 [Rx] Metoprolol Succinate (ER) [Toprol XL] 100 mg PO HS 30 Days #30 tab 12/07/23 [Rx] Pantoprazole [Protonix] 40 mg PO HS 01/02/24 [History] Ipratropium-Albuterol Nebulize [Duoneb 0.5 mg-3 mg/3 ml Soln] 3 ml INHALATION R T-Q2H PRN each 01/07/24 [Rx] Ipratropium-Albuterol Nebulize [Duoneb 0.5 mg-3 mg/3 ml Soln] 3 ml INHALATION RT-QID #100 each 01/07/24 [Rx] Ondansetron Odt [Zofran ODT] 4 mg PO Q8HR PRN #20 tab 01/07/24 [Rx] Ibuprofen [Motrin Ib] 400 mg PO Q8H PRN 01/15/24 [History] Ibuprofen [Motrin Ib] 600 mg PO HS 01/15/24 [History] Brimonidine Tartrate [Alphagan P 0.2% Ophth Soln] 1 drop BOTH EYES HS 02/02/24 [ History] Fluticasone Nasal [place] [Flonase Nasal [place]] 2 spray EA NOSTRIL HS 02/02/24 [History] Famotidine [Pepcid] 20 mg PO HS 02/19/24 [History] Nicotine 14Mg/24Hr Patch [Habitrol] 1 patch TRANSDERM HS 02/19/24 [History] Thiamine [Vitamin B-1] 100 mg PO HS 02/19/24 [History] Ticagrelor [Brilinta] 90 mg PO HS 02/26/24 [History] Artificial Tears-Hypromellose [Artificial Tear Drops] 1 drop BOTH EYES TID PRN 03/10/24 [History] Magnesium Oxide [Mag-Ox] 400 mg PO HS 03/15/24 [History] Potassium Chloride ER [K-Dur 20] 20 meq PO HS 03/15/24 [History] Follow up Appointment(s)/Referral(s): Miya Johnson MD [Primary Care Provider] - 1-2 days (Please call office for follow-up appointment - the office was not available to answer the phone when we called to make an appointment for you.) Ambulatory/Diagnostic Orders: Basic Metabolic Panel [LAB.AMB] Location: None Selected Complete Blood Count w/diff [LAB.AMB] Location: None Selected Magnesium [LAB.AMB] Time Frame: 3 Days, Location: None Selected Patient Instructions/Handouts: Abuse of Alcohol (DC), Alcohol Withdrawal (DC), Hypomagnesemia (DC) Activity/Diet/Wound Care/Special Instructions: Avoid all alcohol --see prescriptions to have blood work drawn in 3 days--- Discharge Disposition: HOME SELF-CARE
== END 2024-03-17 14:53 | disposition home or self-care (01) ==
LOC: EC 20:17 → 6NMEDSUR 22:14 → 5NMEDONC 03-15 00:58 → 6NMEDSUR 03-15 01:21 → 5NMEDONC 03-15 06:14
PROVIDERS: ADMIT Hospitalist; ATTEND Hospitalist
DX: F10.139 Alcohol abuse with withdrawal, unspecified (principal); F10.129 Alcohol abuse with intoxication, unspecified; K70.30 Alcoholic cirrhosis of liver without ascites; K70.10 Alcoholic hepatitis without ascites; I25.10 Atherosclerotic heart disease of native coronary artery without angina pectoris; D69.59 Other secondary thrombocytopenia; G62.9 Polyneuropathy, unspecified; M25.551 Pain in right hip; E87.6 Hypokalemia; J44.9 Chronic obstructive pulmonary disease, unspecified; E78.5 Hyperlipidemia, unspecified; I10 Essential (primary) hypertension; I25.2 Old myocardial infarction; G40.909 Epilepsy, unspecified, not intractable, without status epilepticus; I69.828 Other speech and language deficits following other cerebrovascular disease; F32.A Depression, unspecified; F41.9 Anxiety disorder, unspecified; I69.831 Monoplegia of upper limb following other cerebrovascular disease affecting right dominant side; F17.210 Nicotine dependence, cigarettes, uncomplicated; E83.42 Hypomagnesemia; Z79.899 Other long term (current) drug therapy; Z79.82 Long term (current) use of aspirin; Z88.5 Allergy status to narcotic agent; Z98.61 Coronary angioplasty status; Z88.7 Allergy status to serum and vaccine; W19.XXXA Unspecified fall, initial encounter; Z81.1 Family history of alcohol abuse and dependence; Z82.49 Family history of ischemic heart disease and other diseases of the circulatory system; Z79.51 Long term (current) use of inhaled steroids
CPT/HCPCS: 96376; 96365; 96366 ×3; 96367; 96372 ×3; 96375; 99285; 36415; 94640 ×2; 93005; 97162; 80053; 80048 ×2; 82607; 82746; 83735 ×3; 85025; 72100; G0378 ×4; G0480; S4990 ×2; J2060 ×2; J0360; J1644 ×3; J3411; J3475 ×2; J1885; 80320

== ENCOUNTER 2024-05-03 11:08 | Inpatient (IN) | payer OTHER ==
[2024-05-03] MEDS: SODIUM CHLORIDE 0.9% 1,000 ML IV STA (11:29)
--- NOTE | 2024-05-03 12:08 | XR ---
EXAMINATION TYPE: XR chest 2V DATE OF EXAM: 05/03/2024 COMPARISON: 03/10/2024 INDICATION: Chest pain TECHNIQUE: Frontal and lateral views of the chest are obtained. FINDINGS: The heart size is normal. The pulmonary vasculature is normal. The lungs are clear. IMPRESSION: 1. No acute pulmonary process.
[2024-05-03 12:17] LABS: ALT 29 U/L (4-34); AST 50 U/L (14-36); African American GFR (CKD) >90 (>60 ml/min/1.73 sqM); Albumin 4.4 g/dL (3.5-5.0); Alkaline Phosphatase 119 U/L (38-126); Anion Gap 14 mmol/L; Blood Urea Nitrogen 12 mg/dL (7-17); Calcium 8.6 mg/dL (8.4-10.2); Carbon Dioxide 24 mmol/L (22-30); Chloride 100 mmol/L (98-107); Glucose 87 mg/dL (74-99); Lipase 54 U/L (23-300); Magnesium 1.8 mg/dL (1.6-2.3); Non-African American GFR(CKD) >90 (>60 ml/min/1.73 sqM); Sodium 138 mmol/L (137-145); Total Bilirubin 0.5 mg/dL (0.2-1.3); Total Protein 7.3 g/dL (6.3-8.2)
[2024-05-03 12:19] LABS: Anisocytosis Slight; Basophils # (A) 0.1 k/uL (0-0.2); Basophils % (A) 2 %; Eosinophils # (A) 0.1 k/uL (0-0.7); Eosinophils % (A) 1 %; HCT 46.4 % (34.0-46.0); Lymphocytes # (A) 2.1 k/uL (1.0-4.8); Lymphocytes % (A) 26 %; MCH 27.9 pg (25.0-35.0); MCHC 30.6 g/dL (31.0-37.0); Mean Platelet Volume 7.8; Monocytes # (A) 0.3 k/uL (0-1.0); Monocytes % (A) 4 %; Neutrophils # (A) 5.4 k/uL (1.3-7.7); Neutrophils % (A) 65 %; RDW 16.6 % (11.5-15.5); WBC 8.3 k/uL (3.8-10.6)
[2024-05-03 12:23] LABS: HGB 14.2 gm/dL (11.4-16.0); Platelet Count 245 k/uL (150-450)
[2024-05-03 12:44] LABS: Alcohol 326 mg/dL; Potassium 4.5 mmol/L (3.5-5.1)
[2024-05-03] MEDS ORDERED: NITROGLYCERIN SL TABS 0.4 MG TAB SUBLINGUAL PRN (13:29)
--- NOTE | 2024-05-03 13:29 | ED ---
Chest Pain HPI - General Chief Complaint: Chest Pain Stated Complaint: neuro symp Time Seen by Provider: 05/03/24 11:09 Source: patient, EMS, RN notes reviewed Mode of arrival: EMS Limitations: no limitations - History of Present Illness Initial Comments: 64-year-old female presents emergency room via EMS with multiple complaints. Patient reports she has been having chest pain she states she had some slurring of her speech earlier but she does admit that she is intoxicated. Patient states she does not have the symptoms currently she has any focal weakness. Patient states that she does drink daily she is well-known to the emerged from has been admitted several times. Patient states she is still has chest pain currently. Patient denies any abdominal pain denies any leg weakness denies any difficulty ambulating. - Related Data Home Medications Medication Instructions Recorded Confirmed Aspirin EC [Ecotrin Low Dose] 81 mg PO HS 02/11/19 03/15/24 Simvastatin [Zocor] 40 mg PO HS 07/03/22 03/15/24 Albuterol Nebulized [Ventolin 2.5 mg INHALATION RT-QID PRN 05/17/23 03/15/24 Nebulized] Budesonide/Formoterol Fumarate 2 puff INHALATION RT-HS 07/29/23 03/15/24 [Symbicort 160-4.5 Mcg Inhaler] Multivitamin [Multivitamins Adult 2 tab PO HS 12/04/23 03/15/24 Gummies] Pantoprazole [Protonix] 40 mg PO HS 01/02/24 03/15/24 Ibuprofen [Motrin Ib] 400 mg PO Q8H PRN 01/15/24 03/15/24 Ibuprofen [Motrin Ib] 600 mg PO HS 01/15/24 03/15/24 Brimonidine Tartrate [Alphagan P 1 drop BOTH EYES HS 02/02/24 03/15/24 0.2% Ophth Soln] Fluticasone Nasal [place] [Flonase 2 spray EA NOSTRIL HS 02/02/24 03/15/24 Nasal [place]] Famotidine [Pepcid] 20 mg PO HS 02/19/24 03/15/24 Nicotine 14Mg/24Hr Patch [Habitrol] 1 patch TRANSDERM HS 02/19/24 03/15/24 Thiamine [Vitamin B-1] 100 mg PO HS 02/19/24 03/15/24 Ticagrelor [Brilinta] 90 mg PO HS 02/26/24 03/15/24 Artificial Tears-Hypromellose 1 drop BOTH EYES TID PRN 03/10/24 03/15/24 [Artificial Tear Drops] Magnesium Oxide [Mag-Ox] 400 mg PO HS 03/15/24 03/15/24 Potassium Chloride ER [K-Dur 20] 20 meq PO HS 03/15/24 03/15/24 Previous Rx's Medication Instructions Recorded Isosorbide Mononitrate ER [Imdur] 60 mg PO HS 30 Days #30 tab 12/07/23 Metoprolol Succinate (ER) [Toprol 100 mg PO HS 30 Days #30 tab 12/07/23 XL] Ipratropium-Albuterol Nebulize 3 ml INHALATION RT-Q2H PRN each 01/07/24 [Duoneb 0.5 mg-3 mg/3 ml Soln] Ipratropium-Albuterol Nebulize 3 ml INHALATION RT-QID #100 each 01/07/24 [Duoneb 0.5 mg-3 mg/3 ml Soln] Ondansetron Odt [Zofran ODT] 4 mg PO Q8HR PRN #20 tab 01/07/24 Allergies Allergy/AdvReac Type Severity Reaction Status Date / Time [place] And Derivatives Allergy Rash/Hives Verified 05/03/24 11:21 [[place]] latex Allergy Rash/Hives Verified 05/03/24 11:21 Influenza Virus Vaccines AdvReac Nausea & Verified 05/03/24 11:21 Vomiting morphine AdvReac Nausea & Verified 05/03/24 11:21 Vomiting tomato AdvReac Diarrhea Verified 05/03/24 11:21 Review of Systems ROS Statement: Those systems with pertinent positive or pertinent negative responses have been documented in the HPI. ROS Other: All systems not noted in ROS Statement are negative. EKG Findings - EKG Comments: EKG Findings:: EKG performed at 11: 18 sinus rhythm rate 94 KS 148 QRS 93 QT/QTc 380/431 inverted T waves noted - EKG Results: EKG: interpreted by LISET Past Medical History Past Medical History: Asthma, Coronary Artery Disease (CAD), COPD, CVA/TIA, Eye Disorder, Hypertension, Liver Disease, Myocardial Infarction ([place]), Seizure Disorder, Vascular Disorder Additional Past Medical History / Comment(s): Pt recently admitted to [facility] for diarrhea, ETOH abuse. 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 soon Last Myocardial Infarction Date:: aug 2018 History of Any Multi-Drug Resistant Organisms: None Reported Past Surgical History: Cholecystectomy, Heart Catheterization, Orthopedic Surgery Additional Past Surgical History / Comment(s): L caratid stent, bilateral knee surgeries for tendon repair, bartholian cyst removed bilateral wrists, cataracts Past Anesthesia/Blood Transfusion Reactions: Motion Sickness Additional Past Anesthesia/Blood Transfusion Reaction / Comment(s): Pt has received blood without reaction. Past Psychological History: Anxiety, Depression Smoking Status: Current every day smoker Past Alcohol Use History: Abuse, Daily, Heavy Past Drug Use History: Marijuana - Past Family History Mother Family Medical History: Cancer, Congestive Heart Failure (CHF), Coronary Artery Disease (CAD), Hyperlipidemia Additional Family Medical History / Comment(s): Mother at age 85 from lung cancer. Father Family Medical History: Cancer, COPD Additional Family Medical History / Comment(s): Father at age 63 from lung cancer. Brother(s) Additional Family Medical History / Comment(s): Patient has a total of 7 siblings. 5 are alive without any major medical problems she is aware of. 2 siblings have one from alcohol abuse and 1. Coronary artery disease. Daughter(s) Family Medical History: No Reported History Additional Family Medical History / Comment(s): Patient has one daughter with no major medical problems. General Exam Limitations: no limitations General appearance: alert, in no apparent distress Head exam: Present: atraumatic, normocephalic, normal inspection Eye exam: Present: normal appearance, PERRL, EOMI. Absent: scleral icterus, conjunctival injection, periorbital swelling ENT exam: Present: normal exam, normal oropharynx, mucous membranes moist Neck exam: Present: normal inspection, full ROM. Absent: tenderness, meningismus, lymphadenopathy Respiratory exam: Present: normal lung sounds bilaterally. Absent: respiratory distress, wheezes, rales, rhonchi, stridor Cardiovascular Exam: Present: regular rate, normal rhythm, normal heart sounds. Absent: systolic murmur, diastolic murmur, rubs, gallop, clicks GI/Abdominal exam: Present: soft, normal bowel sounds. Absent: distended, tenderness, guarding, rebound, rigid Neurological exam: Present: alert, oriented X3, CN II-XII intact, reflexes normal. Absent: motor sensory deficit Course Vital Signs 05/03/24 05/03/24 11:10 11:18 Temperature 98 F Pulse Rate 94 93 Respiratory 20 20 Rate Blood Pressure 108/79 108/79 O2 Sat by Pulse 93 L 93 L Oximetry Chest Pain MDM - MDM Was pt. sent in by a medical professional or institution (, PA, [employer], urgent care, hospital, or fci...) When possible be specific @ -No Did you speak to anyone other than the patient for history (EMS, parent, family, police, friend...)? What history was obtained from this source @ -No Did you review nursing and triage notes (agree or disagree)? Why? @ -I reviewed and agree with nursing and triage notes Were old charts reviewed (outside hosp., previous admission, EMS record, old EKG, old radiological studies, urgent care reports/EKG's, fci records)? Report findings @ -No old charts were reviewed Differential Diagnosis (chest pain, altered mental status, abdominal pain women, abdominal pain men, vaginal bleeding, weakness, fever, dyspnea, syncope, headache, dizziness, GI bleed, back pain, seizure, CVA, palpatations, mental health, musculoskeletal)? @ -Differential Chest Pain: Stable Angina, Unstable Angina, STEMI, NSTEMI Aortic Dissection, Pneumothorax, Musculoskeletal, Esophageal Spasm GERD, Cholecystitis, Pancreatitis, Zoster, this is not meant to be an all-inclusive list. EKG interpreted by me (3pts min.). @ -As above X-rays interpreted by me (1pt min.). @ -[Chest x-ray shows no acute cardiopulmonary process CT interpreted by me (1pt min.). @ -None done U/S interpreted by me (1pt. min.). @ -None done What testing was considered but not performed or refused? (CT, X-rays, U/S, labs)? Why? @ -None What meds were considered but not given or refused? Why? @ -None Did you discuss the management of the patient with other professionals (professionals i.e. ., PA, [employer], lab, RT, psych nurse, social media senior associate, transfer and pumphouse operator, teacher, asset protection officer, heel caser)? Give summary @ -EMH for admission Was smoking cessation discussed for >3mins.? @ -No Was critical care preformed (if so, how long)? @ -No Were there social determinants of health that impacted care today? How? (Homelessness, low income, unemployed, alcoholism, drug addiction, transportation, low edu. Level, literacy, decrease access to med. care, alf, rehab)? @ -No Was there de-escalation of care discussed even if they declined (Discuss DNR or withdrawal of care, Hospice)? DNR status @ -No What co-morbidities impacted this encounter? (DM, HTN, Smoking, COPD, CAD, Cancer, CVA, ARF, Chemo, Hep., AIDS, mental health diagnosis, sleep apnea, morbid obesity)? @ -None Was patient admitted / discharged? Hospital course, mention meds given and route, prescriptions, significant lab abnormalities, going to OR and other pertinent info. @ -Admitted patient presented for chest pain, possible slurred speech. Patient is acutely intoxicated. She does have inverted T waves which is somewhat chronic in nature. Patient admitted for cardiac rule out and alcohol intoxication. Undiagnosed new problem with uncertain prognosis? @ -No Drug Therapy requiring intensive monitoring for toxicity (Heparin, Nitro, In sulin, Cardizem)? @ -No Were any procedures done? @ -No Diagnosis/symptom? @ -Chest pain, alcohol intoxication Acute, or Chronic, or Acute on Chronic? @ -Acute Uncomplicated (without systemic symptoms) or Complicated (systemic symptoms)? @ -Complicated Side effects of treatment? @ -No Exacerbation, Progression, or Severe Exacerbation? @ -No Poses a threat to life or bodily function? How? (Chest pain, [place], PA, pneumonia, PE, COPD, DKA, ARF, appy, cholecystitis, CVA, Diverticulitis, Homicidal, Suicidal, threat to staff... and all critical care pts) @ -Yes alcohol abuse, chest pain possible cardiac arrest Disposition Clinical Impression: Alcohol intoxication, Chest pain Disposition: ADMITTED IP TO THIS HOSP Condition: Fair Referrals: Miya Johnson MD [Primary Care Provider] - 1-2 days Time of Disposition: 13:29
[2024-05-03] MEDS ORDERED: LORazepam 0.5 MG TAB PO PRN (13:31)
[2024-05-03] MEDS: ASPIRIN 81 MG PO STA (13:53)
[2024-05-03] MEDS: LORazepam 1 MG TAB PO PRN ×2 (15:45→21:22)
[2024-05-03 16:20] LABS: Prothrombin Time 10.9 sec (10.0-12.5)
[2024-05-03 16:22] LABS: Partial Thromboplastin Time 20.5 sec (22.0-30.0)
[2024-05-03] MEDS: HYDROcodone/APAP 7.5-325MG 1 EACH TAB PO PRN (21:23)
--- NOTE | 2024-05-03 23:51 | P.HPIM ---
History of Present Illness H&P Date: 05/03/24 Chief Complaint: Chest pain Patient is a 64-year-old female with a past medical history of coronary artery disease, chronic RCA occlusion, history of CVA with right-sided weakness/speech issues, blood,, hypertension, history of [place], seizure disorder, chronic low back pain, anxiety/depression, currently everyday smoker and heavy alcohol use. Patient presents to ER with complaints of chest pain mainly in the epigastric region. Patient also states that she has some slurred speech and felt like she was having a stroke again. Patient was found to be alcohol intoxicated. O therwise patient denies any focal weakness. Does drink daily basis. Patient was admitted to the hospital due to similar complaints several times during the last few months. Denied any fever or chills. Patient felt nauseous. No episodes of vomiting. No complaints of abdominal pain. Denies any dysuria or hematuria. Chest x-ray showed no acute pulmonary process. EKG showed sinus rhythm with he art rate 94 Laboratory data showed WBC 8.3 hemoglobin 14.2 and platelets 245 sodium 138 potassium 4.5 chloride 100 bicarb is 24 BUN 12 and creatinine 0.60 and blood sugar is 87 AST 15 ALT 29 alk phos 119 troponin x 2 negative and lipase 54. Serum alcohol level is 326. Review of Systems ROS unobtainable: due to mental status Past Medical History Past Medical History: Asthma, Coronary Artery Disease (CAD), COPD, CVA/TIA, Eye Disorder, Hypertension, Liver Disease, Myocardial Infarction (ID), Seizure Disorder, Vascular Disorder Additional Past Medical History / Comment(s): Pt recently admitted to [facility] for diarrhea, ETOH abuse. 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 soon Last Myocardial Infarction Date:: aug 2018 History of Any Multi-Drug Resistant Organisms: None Reported Past Surgical History: Cholecystectomy, Heart Catheterization, Orthopedic Surgery Additional Past Surgical History / Comment(s): L caratid stent, bilateral knee surgeries for tendon repair, bartholian cyst removed bilateral wrists, cataracts Past Anesthesia/Blood Transfusion Reactions: Motion Sickness Additional Past Anesthesia/Blood Transfusion Reaction / Comment(s): Pt has received blood without reaction. Past Psychological History: Anxiety, Depression Smoking Status: Current every day smoker Past Alcohol Use History: Abuse, Daily, Heavy Past Drug Use History: Marijuana - Past Family History Mother Family Medical History: Cancer, Congestive Heart Failure (CHF), Coronary Artery Disease (CAD), Hyperlipidemia Additional Family Medical History / Comment(s): Mother at age 85 from lung cancer. Father Family Medical History: Cancer, COPD Additional Family Medical History / Comment(s): Father at age 63 from lung cancer. Brother(s) Additional Family Medical History / Comment(s): Patient has a total of 7 siblings. 5 are alive without any major medical problems she is aware of. 2 siblings have one from alcohol abuse and 1. Coronary artery disease. Daughter(s) Family Medical History: No Reported History Additional Family Medical History / Comment(s): Patient has one daughter with no major medical problems. Medications and Allergies Home Medications Medication Instructions Recorded Confirmed Type Aspirin EC [Ecotrin Low Dose] 81 mg PO HS 02/11/19 05/03/24 History Simvastatin [Zocor] 40 mg PO HS 07/03/22 05/03/24 History Albuterol Nebulized [Ventolin 2.5 mg INHALATION RT-QID PRN 05/17/23 05/03/24 History Nebulized] Budesonide/Formoterol Fumarate 2 puff INHALATION RT-HS 07/29/23 05/03/24 History [Symbicort 160-4.5 Mcg Inhaler] Multivitamin [Multivitamins Adult 2 tab PO HS 12/04/23 05/03/24 History Gummies] Isosorbide Mononitrate ER [Imdur] 60 mg PO HS 30 Days #30 tab 12/07/23 05/03/24 Rx Metoprolol Succinate (ER) [Toprol 100 mg PO HS 30 Days #30 tab 12/07/23 05/03/24 Rx XL] Pantoprazole [Protonix] 40 mg PO HS 01/02/24 05/03/24 History Ipratropium-Albuterol Nebulize 3 ml INHALATION RT-Q2H PRN each 01/07/24 05/03/24 Rx [Duoneb 0.5 mg-3 mg/3 ml Soln] Ipratropium-Albuterol Nebulize 3 ml INHALATION RT-QID #100 each 01/07/24 05/03/24 Rx [Duoneb 0.5 mg-3 mg/3 ml Soln] Ondansetron Odt [Zofran ODT] 4 mg PO Q8HR PRN #20 tab 01/07/24 05/03/24 Rx Ibuprofen [Motrin Ib] 400 mg PO Q8H PRN 01/15/24 05/03/24 History Ibuprofen [Motrin Ib] 600 mg PO HS 01/15/24 05/03/24 History Brimonidine Tartrate [Alphagan P 1 drop BOTH EYES HS 02/02/24 05/03/24 History 0.2% Ophth Soln] Fluticasone Nasal [place] [Flonase 2 spray EA NOSTRIL HS 02/02/24 05/03/24 History Nasal [place]] Famotidine [Pepcid] 20 mg PO HS 02/19/24 05/03/24 History Nicotine 14Mg/24Hr Patch [Habitrol] 1 patch TRANSDERM HS 02/19/24 05/03/24 History Thiamine [Vitamin B-1] 100 mg PO HS 02/19/24 05/03/24 History Ticagrelor [Brilinta] 90 mg PO HS 02/26/24 05/03/24 History Artificial Tears-Hypromellose 1 drop BOTH EYES TID PRN 03/10/24 05/03/24 History [Artificial Tear Drops] Magnesium Oxide [Mag-Ox] 400 mg PO HS 03/15/24 05/03/24 History Potassium Chloride ER [K-Dur 20] 20 meq PO HS 03/15/24 05/03/24 History Atorvastatin [Lipitor] 80 mg PO DIRECTED 05/03/24 05/03/24 History Cholecalciferol (Vitamin D3) 50 mcg PO DIRECTED 05/03/24 05/03/24 History [Vitamin D3 (50 Mcg = 2000 Iu)] Ferrous Sulfate [Feosol] 325 mg PO DIRECTED 05/03/24 05/03/24 History Isosorbide Mononitrate ER [Imdur] 30 mg PO DIRECTED 05/03/24 05/03/24 History Metoprolol Succinate (ER) [Toprol 50 mg PO DIRECTED 05/03/24 05/03/24 History Xl] Allergies Allergy/AdvReac Type Severity Reaction Status Date / Time [place] And Derivatives Allergy Rash/Hives Verified 05/03/24 14:50 [[place]] latex Allergy Rash/Hives Verified 05/03/24 14:50 Influenza Virus Vaccines AdvReac Nausea & Verified 05/03/24 14:50 Vomiting morphine AdvReac Nausea & Verified 05/03/24 14:50 Vomiting tomato AdvReac Diarrhea Verified 05/03/24 14:50 Physical Exam Vitals: Vital Signs Temp Pulse Resp BP Pulse Ox 05/03/24 22:41 97 18 130/97 95 05/03/24 14:39 101 H 140/107 98 05/03/24 11:18 98 F 93 20 108/79 93 L 05/03/24 11:10 94 20 108/79 93 L Intake and Output 05/03/24 05/03/24 05/04/24 14:59 22:59 06:59 Other: Weight 81.647 kg PHYSICAL EXAMINATION: Patient is lying in the bed awake alert but confused and disoriented. Intoxicated. Neck reveals no JVD, carotid bruits, or thyromegaly. CHEST EXAMINATION: Trachea is central. Symmetrical expansion. Lung galvan clear to auscultation and percussion. CARDIAC: Normal S1, S2 with no gallops. No murmurs ABDOMEN: Soft. Bowel sounds normal. No organomegaly. No abdominal bruits. Extremities: reveal no edema. No clubbing or cyanosis Neurologically awake, alert, oriented x 2 able to move all extremities. Skin: No rash or skin lesions. Psychiatric: Uncooperative. Musculoskeletal: No joint swelling or deformity. Results CBC & Chem 7: 05/03/24 11:42 05/03/24 11:42 Labs: Abnormal Lab Results - Last 24 Hours (Table) 05/03/24 05/03/24 05/03/24 Range/Units 11:42 11:42 15:47 Hct 46.4 H (34.0-46.0) % MCHC 30.6 L (31.0-37.0) g/dL RDW 16.6 H (11.5-15.5) % APTT 20.5 L (22.0-30.0) sec AST 50 H (14-36) U/L Serum Alcohol 326 H* mg/dL Thrombosis Risk Factor Assmnt - DVT/VTE Prophylaxis DVT/VTE Prophylaxis: Pharmacologic Prophylaxis ordered Assessment and Plan Assessment: Acute alcohol intoxication Epigastric chest pain possible alcoholic gastritis. Rule out ACS. Coronary artery disease with chronic RCA occlusion with prior history of cardiac cath in January 2023 Prior history of similar complaints and alcohol intoxication/withdrawal. History of CVA with right residual right-sided weakness and slurred speech issues. History of ascites with paracentesis Gait and balance and falls Chronic back pain Degenerative's disease Anxiety/depression Current everyday smoker Daily alcohol use GI and DVT prophylaxis with PPI and heparin subcu Plan: Patient will be continued on gentle IV hydration. Continue thiamine and multivitamins and monitor for withdrawal symptoms. Current with home medications including aspirin, Brilinta, metoprolol and statins once LFTs normalized. Continue telemetry Continue pain management and follow-up closely. Prognosis is guarded. Time with Patient: Greater than 30
[2024-05-04] MEDS: METOPROLOL SUCCINATE (ER) 100 MG TAB.ER.24H PO SCH (00:35)
[2024-05-04] MEDS: FAMOTIDINE 20 MG TAB PO SCH (00:35)
[2024-05-04] MEDS: PANTOPRAZOLE 40 MG TABLET PO SCH (00:35)
[2024-05-04] MEDS: HEPARIN SODIUM,PORCINE 5,000 UNIT/ML 1 ML VIAL SQ SCH (00:36)
[2024-05-04] MEDS: SODIUM CHLORIDE 0.9% 1,000 ML IV SCH (00:37)
[2024-05-04] MEDS: BRIMONIDINE TARTRATE 0.2% DROPS 5 ML BTL BOTH EYES SCH (00:37)
[2024-05-04] MEDS: LORazepam 1 MG TAB PO PRN (04:43)
[2024-05-04 07:30] LABS: ALT 26 U/L (4-34); AST 44 U/L (14-36); African American GFR (CKD) >90 (>60 ml/min/1.73 sqM); Albumin 3.6 g/dL (3.5-5.0); Alkaline Phosphatase 159 U/L (38-126); Anion Gap 5 mmol/L; Blood Urea Nitrogen 9 mg/dL (7-17); Carbon Dioxide 28 mmol/L (22-30); Chloride 96 mmol/L (98-107); Glucose 116 mg/dL (74-99); Non-African American GFR(CKD) >90 (>60 ml/min/1.73 sqM); Potassium 3.7 mmol/L (3.5-5.1); Sodium 129 mmol/L (137-145); Total Bilirubin 0.8 mg/dL (0.2-1.3); Total Protein 6.1 g/dL (6.3-8.2)
[2024-05-04] MEDS: ASPIRIN 325 MG TAB PO SCH (08:11)
[2024-05-04] MEDS: THIAMINE 100 MG TAB PO SCH (08:11)
[2024-05-04] MEDS ORDERED: ARTIFICIAL TEARS-HYPROMELLOSE DROPS 15 ML BTL BOTH EYES PRN (09:00)
[2024-05-04] MEDS: ONDANSETRON 4 MG/2 ML VIAL IVP PRN (12:25)
[2024-05-04] MEDS: NICOTINE 14MG/24HR PATCH TRANSDERM SCH (12:25)
[2024-05-04] MEDS: MAGNESIUM OXIDE 400 MG TAB PO SCH (20:19)
[2024-05-04] MEDS: TICAGRELOR 90 MG TAB PO SCH (20:19)
[2024-05-04] MEDS: ISOSORBIDE MONONITRATE ER 60 MG TAB.ER.24H PO SCH (20:19)
[2024-05-04] MEDS: ASPIRIN 81 MG PO SCH (20:19)
[2024-05-04] MEDS: SYMBICORT 160-4.5 MCG INHALER INHALATION SCH (20:20)
--- NOTE | 2024-05-04 22:42 | P.PN ---
Subjective Progress Note Date: 05/04/24 Patient is a 64-year-old female with a past medical history of coronary artery disease, chronic RCA occlusion, history of CVA with right-sided weakness/speech issues, blood,, hypertension, history of [place], seizure disorder, chronic low back pain, anxiety/depression, currently everyday smoker and heavy alcohol use. Patient presents to ER with complaints of chest pain mainly in the epigastric region. Patient also states that she has some slurred speech and felt like she was having a stroke again. Patient was found to be alcohol intoxicated. Otherwise patient denies any focal weakness. Does drink daily basis. Patient was admitted to the hospital due to similar complaints several times during the last few months. Denied any fever or chills. Patient felt nauseous. No episodes of vomiting. No complaints of abdominal pain. Denies any dysuria or hematuria. Chest x-ray showed no acute pulmonary process. EKG showed sinus rhythm with heart rate 94 Laboratory data showed WBC 8.3 hemoglobin 14.2 and platelets 245 sodium 138 potassium 4.5 chloride 100 bicarb is 24 BUN 12 and creatinine 0.60 and blood sugar is 87 AST 15 ALT 29 alk phos 119 troponin x 2 negative and lipase 54. Serum alcohol level is 326. 05/04/2024 Patient is resting in bed. Awake alert and oriented x 3. On room air. No com plaints of chest pain or shortness of breath. Patient is otherwise still shaky and requiring Ativan. No complaints of nausea or vomiting. Tolerating oral diet. No headache or dizziness or lightheadedness. Continued on CIWA protocol. Laboratory data showed sodium 129 potassium 3.7 chloride 96 bicarb is 28 BUN 9 and creatinine 0.41 and blood sugar 116. AST 44 ALT 76 and alk phos 159. Troponin x 3 negative and albumin 3.6. Current medications reviewed. Objective - Vital Signs Vital signs: Vital Signs Temp 98.8 F 05/04/24 20:00 Pulse 82 05/04/24 20:00 Resp 18 05/04/24 20:00 BP 144/86 05/04/24 20:00 Pulse Ox 92 L 05/04/24 20:00 FiO2 Intake & Output 05/04/24 05/04/24 05/05/24 06:59 18:59 06:59 Intake Total 120 Output Total 600 1000 500 Balance -600 -880 -500 Weight 81.647 kg Intake: Oral 120 Output: Urine 600 1000 500 Other: Voiding Method External Catheter External Catheter External Catheter # Voids 1 # Bowel Movements 1 1 - Exam PHYSICAL EXAMINATION: Patient is lying in the bed, no acute distress, awake alert and oriented anxious and shaky... HEENT: Normocephalic. Neck is supple. Pupils reactive. Nostrils clear. Oral cavity is moist. Neck reveals no JVD, carotid bruits, or thyromegaly. CHEST EXAMINATION: Trachea is central. Symmetrical expansion. Lung galvan clear to auscultation and percussion. CARDIAC: Normal S1, S2 with no gallops. No murmurs ABDOMEN: Soft. Bowel sounds normal. No organomegaly. No abdominal bruits. Extremities: reveal no edema. No clubbing or cyanosis Neurologically awake, alert, oriented x3 with well-coordinated movements. Skin: No rash or skin lesions. Psychiatric: Coperative. Nonsuicidal Musculoskeletal: No joint swelling or deformity. Normal range of motion. - Labs CBC & Chem 7: 05/03/24 11:42 05/04/24 06:25 Labs: Abnormal Lab Results - Last 24 Hours (Table) 05/04/24 Range/Units 06:25 Sodium 129 L (137-145) mmol/L Chloride 96 L (98-107) mmol/L Creatinine 0.41 L (0.52-1.04) mg/dL Glucose 116 H (74-99) mg/dL Calcium 8.0 L (8.4-10.2) mg/dL AST 44 H (14-36) U/L Alkaline Phosphatase 159 H (38-126) U/L Total Protein 6.1 L (6.3-8.2) g/dL Assessment and Plan Assessment: Acute alcohol intoxication Acute alcohol withdrawal symptoms Hyponatremia Epigastric chest pain possible alcoholic gastritis. Ruled out ACS. Coronary artery disease with chronic RCA occlusion with prior history of cardiac cath in January 2023 Prior history of similar complaints and alcohol intoxication/withdrawal. History of CVA with right residual right-sided weakness and slurred speech issues. History of ascites with paracentesis Gait and balance and falls Chronic back pain Degenerative's disease Anxiety/depression Current everyday smoker Daily alcohol use GI and DVT prophylaxis with PPI and heparin subcu Plan: Patient will be continued on gentle IV hydration. Encourage oral intake. Continue thiamine and multivitamins and monitor for withdrawal symptoms. Current with home medications including aspirin, Brilinta, metoprolol and statins once LFTs normalized. Continue telemetry Continue with CIOR protocol. Continue pain management and follow-up closely. Prognosis is guarded. Time with Patient: Greater than 30
[2024-05-05 03:02] LABS: Anisocytosis Slight; Basophils # (A) 0.1 k/uL (0-0.2); Basophils % (A) 0 %; Eosinophils # (A) 0.2 k/uL (0-0.7); Eosinophils % (A) 1 %; Lymphocytes # (A) 1.4 k/uL (1.0-4.8); Lymphocytes % (A) 10 %; MCH 29.1 pg (25.0-35.0); MCHC 32.3 g/dL (31.0-37.0); MCV 90.1 fL (80.0-100.0); Mean Platelet Volume 8.2; Monocytes # (A) 0.5 k/uL (0-1.0); Monocytes % (A) 4 %; Neutrophils # (A) 10.9 k/uL (1.3-7.7); Neutrophils % (A) 83 %; RBC 4.11 m/uL (3.80-5.40); RDW 16.1 % (11.5-15.5); WBC 13.2 k/uL (3.8-10.6)
[2024-05-05 03:19] LABS: ALT 19 U/L (4-34); AST 34 U/L (14-36); African American GFR (CKD) >90 (>60 ml/min/1.73 sqM); Albumin 3.1 g/dL (3.5-5.0); Alkaline Phosphatase 125 U/L (38-126); Anion Gap 5 mmol/L; Blood Urea Nitrogen 7 mg/dL (7-17); Calcium 8.5 mg/dL (8.4-10.2); Carbon Dioxide 24 mmol/L (22-30); Chloride 99 mmol/L (98-107); Glucose 118 mg/dL (74-99); Magnesium 1.6 mg/dL (1.6-2.3); Non-African American GFR(CKD) >90 (>60 ml/min/1.73 sqM); Potassium 3.5 mmol/L (3.5-5.1); Sodium 128 mmol/L (137-145); Total Bilirubin 0.7 mg/dL (0.2-1.3); Total Protein 5.4 g/dL (6.3-8.2)
[2024-05-05 03:22] LABS: Platelet Count 107 k/uL (150-450)
[2024-05-05] MEDS: ALBUTEROL NEBULIZED 2.5 MG/3 ML INHALATION PRN (03:59)
--- NOTE | 2024-05-05 11:27 | XR ---
EXAMINATION TYPE: XR chest 1V DATE OF EXAM: 05/05/2024 HISTORY: Shortness of breath. COMPARISON: 05/05/2020 TECHNIQUE: Single view of the chest is submitted. FINDINGS: Demonstrated are scattered senescent parenchymal change. There is no evidence for focal infiltrate. The heart is stable. Hilar and mediastinal structures are within normal limits. Degenerative changes are seen of the dorsal spine. IMPRESSION: 1. Chronic changes without evidence for acute pulmonary disease.
[2024-05-05] MEDS ORDERED: SODIUM CHLORIDE 0.9% 1,000 ML IV SCH (11:30)
--- NOTE | 2024-05-05 11:57 | P.PN ---
Subjective Patient is a 64-year-old female with a past medical history of coronary artery disease, chronic RCA occlusion, history of CVA with right-sided weakness/speech issues, blood,, hypertension, history of ID, seizure disorder, chronic low back pain, anxiety/depression, currently everyday smoker and heavy alcohol use. Patient presents to ER with complaints of chest pain mainly in the epigastric region. Patient also states that she has some slurred speech and felt like she was having a stroke again. Patient was found to be alcohol intoxicated. Ot herwise patient denies any focal weakness. Does drink daily basis. Patient was admitted to the hospital due to similar complaints several times during the last few months. Denied any fever or chills. Patient felt nauseous. No episodes of vomiting. No complaints of abdominal pain. Denies any dysuria or hematuria. Chest x-ray showed no acute pulmonary process. EKG showed sinus rhythm with hea rt rate 94 Laboratory data showed WBC 8.3 hemoglobin 14.2 and platelets 245 sodium 138 potassium 4.5 chloride 100 bicarb is 24 BUN 12 and creatinine 0.60 and blood sugar is 87 AST 15 ALT 29 alk phos 119 troponin x 2 negative and lipase 54. Serum alcohol level is 326. 05/04/2024 Patient is resting in bed. Awake alert and oriented x 3. On room air. No complaints of chest pain or shortness of breath. Patient is otherwise still shaky and requiring Ativan. No complaints of nausea or vomiting. Tolerating oral diet. No headache or dizziness or lightheadedness. Continued on CIWA protocol. Laboratory data showed sodium 129 potassium 3.7 chloride 96 bicarb is 28 BUN 9 and creatinine 0.41 and blood sugar 116. AST 44 ALT 76 and alk phos 159. Troponin x 3 negative and albumin 3.6. 05/05/2024 This is a pleasant 64 years old female who presents initially because of chest pain and history of heavy alcohol use. Patient was admitted for alcohol use disorders and withdrawal. She was placed on CIWA protocol Also patient on aspirin and Brilinta and metoprolol 100 mg. This morning patient is awake alert, she denies any chest pain. No significant dyspnea or tachypnea, she felt little short of breath and chest x-ray showing chronic changes Currently no more dyspnea and she is saturating well on room air, 95% with a breathing rate around 16. However patient has worsening leukocytosis 8.3 up to 13.2. While hemoglobin dropped 14.2 down to 12.0 which is baseline and platelet count dropped to 45 down to 107 which is close or little above baseline, most likely with elements of hemodilution. Most likely patient has bicytopenia secondary to alcohol effect with anemia and thrombocytopenia. Also patient noted to drink a lot of water at bedside, urine osmolality is low less than 20. Therefore we put the patient on fluid restriction. Will try to avoid IV fluid to avoid rapid correction therefore we will start with fluid restriction 1000 mL/h, patient and bedside nurse were informed Patient also complains from some nonspecific urinary symptoms and suprapubic pain and tenderness, she has external urinary catheter with good urine output No rebound tenderness and abdomen looks soft. Patient states that yesterday he had no bowel movement and this morning she has 3-5 bowel movement but this hard stool. No nausea or vomiting. I discussed with the patient we will going to order CT of the abdomen pelvis with IV contrast risk of contrast allergy and nephrotoxicity which might cause permanent damage are explained for the patient and she verbalized understanding and acceptance. Patient creatinine 0.4. Objective - Vital Signs Vital signs: Vital Signs Temp 98.1 F 05/05/24 09:08 Pulse 69 05/05/24 09:08 Resp 18 05/05/24 09:08 BP 119/73 05/05/24 09:08 Pulse Ox 95 05/05/24 09:08 FiO2 Intake & Output 05/04/24 05/05/24 05/05/24 18:59 06:59 18:59 Intake Total 120 250 Output Total 1000 775 Balance -880 -775 250 Intake: IV 10 Invasive Line 1 10 Oral 120 240 Output: Urine 1000 775 Other: Voiding Method External Catheter External Catheter External Catheter # Bowel Movements 1 - Exam GENERAL: The patient is alert and oriented x3, not in any acute distress. Well developed, well nourished. HEENT: Pupils are round and equally reacting to light. EOMI. No scleral icterus. No conjunctival pallor. Normocephalic, atraumatic. No pharyngeal erythema. No thyromegaly. CARDIOVASCULAR: S1 and S2 present. No murmurs, rubs, or gallops. PULMONARY: Chest is clear to auscultation, no wheezing , no crackles. -ABDOMEN: Soft, Lower abdominal tenderness, no rebound tenderness or guarding, nondistended, normoactive bowel sounds. No palpable organomegaly. MUSCULOSKELETAL: No joint swelling or deformity. EXTREMITIES: No cyanosis, clubbing, or pedal edema. NEUROLOGICAL: Gross neurological examination did not reveal any focal deficits. SKIN: No rashes. no petechiae. - Labs CBC & Chem 7: 05/05/24 02:47 05/05/24 02:47 Labs: Abnormal Lab Results - Last 24 Hours (Table) 05/05/24 05/05/24 05/05/24 Range/Units 02:40 02:47 02:47 WBC 13.2 H (3.8-10.6) k/uL RDW 16.1 H (11.5-15.5) % Plt Count 107 L D (150-450) k/uL Neutrophils # 10.9 H (1.3-7.7) k/uL Sodium 128 L (137-145) mmol/L Creatinine 0.47 L (0.52-1.04) mg/dL Glucose 118 H (74-99) mg/dL Total Protein 5.4 L (6.3-8.2) g/dL Albumin 3.1 L (3.5-5.0) g/dL Ur Random Sodium <20 L (40-220) mmol/L Assessment and Plan Assessment: Alcohol use disorder and alcohol withdrawal Acute hyponatremia, suspected secondary to alcohol effect Worsening leukocytosis with lower abdominal pain and tenderness, rule out UTI, rule out intra-abdominal pathology Chest pain present on admission, currently resolved could be musculoskeletal Thrombocytopenia and relatively lower hemoglobin secondary to alcohol effect Coronary artery disease with chronic RCA occlusion with prior history of cardiac cath in January 2023 Prior history of similar complaints and alcohol intoxication/withdrawal. History of CVA with right residual right-sided weakness and slurred speech is sues. History of ascites with paracentesis Gait and balance and falls Chronic back pain Degenerative's disease Anxiety/depression Current everyday smoker Plan: Will check CT of the abdomen and pelvis Check urine analysis and bladder scan Fluid restriction 1000 mL/ day Monitor sodium level closely Check urine analysis and urine studies, osmolality and sodium Continue with aspirin and Brilinta and metoprolol Continue with CIWA protocol and thiamine Labs and medication were reviewed.. Continue same treatment. Continue with symptomatic treatment. Resume home medication. Monitor labs and vitals. DVT and GI prophylaxis. Further recommendations as per clinical course of the patient DVT prophylaxis: Subcutaneous heparin GI Prophylaxis: Pepcid PT/OT: Pending Prognosis is guarded
[2024-05-05] MEDS: IOPAMIDOL CONTRAST (ORAL USE) VIAL PO PRN (12:21)
[2024-05-05] MEDS: POTASSIUM CHLORIDE ER 20 MEQ TAB.ER PO STA (12:21)
[2024-05-05 12:31] VITALS: RESP 16
--- NOTE | 2024-05-05 15:05 | CT ---
EXAMINATION TYPE: CT abdomen pelvis w con DATE OF EXAM: 05/05/2024 COMPARISON: 02/13/2024 HISTORY: 64-year-old female Abdominal pain and tenderness TECHNIQUE: Contiguous axial scanning of the abdomen and pelvis following administration of 100 ml Iso blu 300 IV contrast. Delayed images through the kidneys and coronal/sagittal reconstructions perform ed. CT DLP: 1020 mGycm Automated exposure control for dose reduction was used. FINDINGS: Heart normal size without pericardial effusion. Dependent atelectasis lung bases. No pleura l effusion. Nodular hepatic contour. A couple hypodensities, possible cyst in the right upper lobe measuring up t o 8 mm. Indeterminate lesion inferior right liver lobe measuring 1.1 cm, axial image 28. Portal venou s system is patent. No biliary ductal dilatation. Cholecystectomy clips. Adrenal glands, kidneys, spleen, and pancreas within normal limits. Moderate atherosclerotic calcifications throughout the abdominal aorta and iliac arteries. Severe foc al stenosis proximal right common iliac artery and also proximal right external iliac artery. No dilated small bowel or free air. Trace perihepatic ascites. Oral contrast has progressed into the mid transverse colon. Moderate circumferential wall thickening in distal third transverse colon, splenic flexure, and descending colon. Additional mild circumferent ial wall thickening sigmoid colon. There is sigmoid diverticulosis. Inflammatory changes do not appea r to be centered along a diverticula. Trace free fluid tracking down the left paracolic gutter. Bladder is urine distended. Uterus anteverted. Both ovaries are visualized. Mild presacral edema. No pelvic lymph adenopathy seen. Bones: Unchanged superior endplate deformities L1 and L4 vertebral bodies with scattered moderate deg enerative disc disease. IMPRESSION: 1. NONSPECIFIC MODERATE TO SEVERE COLITIS EXTENDING FROM THE DISTAL THIRD TRANSVERSE COLON DOWN INTO THE SIGMOID COLON. CORRELATE TO ETIOLOGY. REACTIVE MILD FREE FLUID. NO FREE AIR. 2. CIRRHOSIS AND TRACE PERIHEPATIC ASCITES. 3. A 1.1 CM HYPODENSE AREA INFERIOR RIGHT LIVER LOBE IS INDETERMINATE. SHORT INTERVAL FOLLOW-UP CT RE COMMENDED TO EXCLUDE A NEOPLASTIC PROCESS OR EARLY ABSCESS.
[2024-05-05 16:19] VITALS: BP 139/93; PULSE 89; TEMP 98
[2024-05-05 20:14] LABS: Bilirubin,Urine Negative (Negative); Blood,Urine Large (Negative); Glucose,Urine (UA) Negative (Negative); Ketones,Urine Negative (Negative); Leukocyte Esterase,Urine Large (Negative); Nitrite,Urine Negative (Negative); Protein,Urine Negative (Negative); RBC,Urine 32 /hpf (0-5); Squamous Epithelial Cell,Urine 4 /hpf (0-4); Urobilinogen,Urine <2.0 mg/dL (<2.0); WBC,Urine 3 /hpf (0-5)
[2024-05-05 20:18] LABS: Appearance,Urine Cloudy (Clear); Color,Urine Dark Yellow
[2024-05-05 20:19] LABS: Specific Gravity,Urine 1.006 (1.001-1.035)
[2024-05-05] MEDS ORDERED: MAGNESIUM OXIDE 400 MG TAB PO SCH (21:00)
== END 2024-05-05 16:30 | disposition left against medical advice (07) | DRG 770 ==
LOC: EC 11:08 → 6NMEDSUR 12:59 → 3SCARD 19:15 → OBSVTOIN 05-05 10:27
PROVIDERS: ADMIT Internal Medicine; ATTEND Internal Medicine
DX: F10.129 Alcohol abuse with intoxication, unspecified (principal); Y90.8 Blood alcohol level of 240 mg/100 ml or more; F10.139 Alcohol abuse with withdrawal, unspecified; D69.6 Thrombocytopenia, unspecified; D64.9 Anemia, unspecified; E87.1 Hypo-osmolality and hyponatremia; F17.200 Nicotine dependence, unspecified, uncomplicated; F32.A Depression, unspecified; F41.9 Anxiety disorder, unspecified; G40.909 Epilepsy, unspecified, not intractable, without status epilepticus; G89.29 Other chronic pain; I10 Essential (primary) hypertension; I25.10 Atherosclerotic heart disease of native coronary artery without angina pectoris; I25.82 Chronic total occlusion of coronary artery; Z53.29 Procedure and treatment not carried out because of patient's decision for other reasons; I25.2 Old myocardial infarction; I69.351 Hemiplegia and hemiparesis following cerebral infarction affecting right dominant side; J44.0 Chronic obstructive pulmonary disease with (acute) lower respiratory infection; K21.9 Gastro-esophageal reflux disease without esophagitis; K70.30 Alcoholic cirrhosis of liver without ascites; K58.9 Irritable bowel syndrome, unspecified; M19.90 Unspecified osteoarthritis, unspecified site; R47.81 Slurred speech; D72.829 Elevated white blood cell count, unspecified; Z88.5 Allergy status to narcotic agent; Z91.81 History of falling; Z88.7 Allergy status to serum and vaccine; Z91.040 Latex allergy status
CPT/HCPCS: 36415; 71045; 71046; 74177; 80053; 80320; 81001; 83690; 83735; 83930; 83935; 84300; 84484; 85025; 85610; 85730; 93005; 94640; 96360; 96361; 99285

== ENCOUNTER 2024-05-23 18:40 | Observation (INO) | payer OTHER ==
--- NOTE | 2024-05-23 21:09 | ED ---
Back Pain HPI - General Chief Complaint: Back Pain/Injury Stated Complaint: Anxiety, back pain Time Seen by Provider: 05/23/24 21:07 Source: patient, RN notes reviewed Limitations: no limitations - History of Present Illness Initial Comments: 64-year-old female with history of alcohol use disorder presenting with multiple complaints. States she has been having low back pain for several days. She is also complaining that she had chest pains earlier today which resolved, however she continues to have shortness of breath. She does admit that she is acutely intoxicated, last drink was 5 hours ago. States she was brought by EMS and does not have a way to get home. She is also complaining of some epigastric pain x 1 day. - Related Data Home Medications Medication Instructions Recorded Confirmed Aspirin EC [Ecotrin Low Dose] 81 mg PO HS 02/11/19 05/03/24 Simvastatin [Zocor] 40 mg PO HS 07/03/22 05/03/24 Albuterol Nebulized [Ventolin 2.5 mg INHALATION RT-QID PRN 05/17/23 05/03/24 Nebulized] Budesonide/Formoterol Fumarate 2 puff INHALATION RT-HS 07/29/23 05/03/24 [Symbicort 160-4.5 Mcg Inhaler] Multivitamin [Multivitamins Adult 2 tab PO HS 12/04/23 05/03/24 Gummies] Pantoprazole [Protonix] 40 mg PO HS 01/02/24 05/03/24 Ibuprofen [Motrin Ib] 400 mg PO Q8H PRN 01/15/24 05/03/24 Ibuprofen [Motrin Ib] 600 mg PO HS 01/15/24 05/03/24 Brimonidine Tartrate [Alphagan P 1 drop BOTH EYES HS 02/02/24 05/03/24 0.2% Ophth Soln] Fluticasone Nasal [place] [Flonase 2 spray EA NOSTRIL HS 02/02/24 05/03/24 Nasal [place]] Famotidine [Pepcid] 20 mg PO HS 02/19/24 05/03/24 Nicotine 14Mg/24Hr Patch [Habitrol] 1 patch TRANSDERM HS 02/19/24 05/03/24 Thiamine [Vitamin B-1] 100 mg PO HS 02/19/24 05/03/24 Ticagrelor [Brilinta] 90 mg PO HS 02/26/24 05/03/24 Artificial Tears-Hypromellose 1 drop BOTH EYES TID PRN 03/10/24 05/03/24 [Artificial Tear Drops] Magnesium Oxide [Mag-Ox] 400 mg PO HS 03/15/24 05/03/24 Potassium Chloride ER [K-Dur 20] 20 meq PO HS 03/15/24 05/03/24 Atorvastatin [Lipitor] 80 mg PO DIRECTED 05/03/24 05/03/24 Cholecalciferol (Vitamin D3) 50 mcg PO DIRECTED 05/03/24 05/03/24 [Vitamin D3 (50 Mcg = 2000 Iu)] Ferrous Sulfate [Feosol] 325 mg PO DIRECTED 05/03/24 05/03/24 Isosorbide Mononitrate ER [Imdur] 30 mg PO DIRECTED 05/03/24 05/03/24 Metoprolol Succinate (ER) [Toprol 50 mg PO DIRECTED 05/03/24 05/03/24 Xl] Previous Rx's Medication Instructions Recorded Isosorbide Mononitrate ER [Imdur] 60 mg PO HS 30 Days #30 tab 12/07/23 Metoprolol Succinate (ER) [Toprol 100 mg PO HS 30 Days #30 tab 12/07/23 XL] Ipratropium-Albuterol Nebulize 3 ml INHALATION RT-Q2H PRN each 01/07/24 [Duoneb 0.5 mg-3 mg/3 ml Soln] Ipratropium-Albuterol Nebulize 3 ml INHALATION RT-QID #100 each 01/07/24 [Duoneb 0.5 mg-3 mg/3 ml Soln] Ondansetron Odt [Zofran ODT] 4 mg PO Q8HR PRN #20 tab 01/07/24 Allergies Allergy/AdvReac Type Severity Reaction Status Date / Time Furnas And Derivatives Allergy Rash/Hives Verified 05/23/24 18:51 [Furnas] latex Allergy Rash/Hives Verified 05/23/24 18:51 cinnamon AdvReac Nausea Verified 05/23/24 18:51 Influenza Virus Vaccines AdvReac Nausea & Verified 05/23/24 18:51 Vomiting morphine AdvReac Nausea & Verified 05/23/24 18:51 Vomiting tomato AdvReac Diarrhea Verified 05/23/24 18:51 Review of Systems ROS Statement: Those systems with pertinent positive or pertinent negative responses have been documented in the HPI. ROS Other: All systems not noted in ROS Statement are negative. Past Medical History Past Medical History: Asthma, Coronary Artery Disease (CAD), COPD, CVA/TIA, Eye Disorder, Hypertension, Liver Disease, Myocardial Infarction (DE), Seizure Disorder, Vascular Disorder Additional Past Medical History / Comment(s): Pt recently admitted to [facility] for diarrhea, ETOH abuse. 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 soon Last Myocardial Infarction Date:: aug 2018 History of Any Multi-Drug Resistant Organisms: None Reported Past Surgical History: Cholecystectomy, Heart Catheterization, Orthopedic Surgery Additional Past Surgical History / Comment(s): L caratid stent, bilateral knee surgeries for tendon repair, bartholian cyst removed bilateral wrists, cataracts Past Anesthesia/Blood Transfusion Reactions: Motion Sickness Additional Past Anesthesia/Blood Transfusion Reaction / Comment(s): Pt has received blood without reaction. Past Psychological History: Anxiety, Depression Smoking Status: Current every day smoker Past Alcohol Use History: Abuse, Daily, Heavy Past Drug Use History: Marijuana - Past Family History Mother Family Medical History: Cancer, Congestive Heart Failure (CHF), Coronary Artery Disease (CAD), Hyperlipidemia Additional Family Medical History / Comment(s): Mother at age 85 from lung cancer. Father Family Medical History: Cancer, COPD Additional Family Medical History / Comment(s): Father at age 63 from lung cancer. Brother(s) Additional Family Medical History / Comment(s): Patient has a total of 7 siblings. 5 are alive without any major medical problems she is aware of. 2 siblings have one from alcohol abuse and 1. Coronary artery disease. Daughter(s) Family Medical History: No Reported History Additional Family Medical History / Comment(s): Patient has one daughter with no major medical problems. General Exam Limitations: no limitations General appearance: alert, in no apparent distress, appears intoxicated Head exam: Present: atraumatic, normocephalic, normal inspection Eye exam: Present: normal appearance, PERRL, EOMI. Absent: scleral icterus, conjunctival injection, periorbital swelling Neck exam: Present: normal inspection. Absent: tenderness, meningismus, lymphadenopathy Respiratory exam: Present: normal lung sounds bilaterally. Absent: respiratory distress, wheezes, rales, rhonchi, stridor Cardiovascular Exam: Present: regular rate, normal rhythm, normal heart sounds. Absent: systolic murmur, diastolic murmur, rubs, gallop, clicks GI/Abdominal exam: Present: soft, normal bowel sounds. Absent: distended, tenderness, guarding, rebound, rigid Back exam: Present: normal inspection, full ROM, other (Full strength and range of motion of bilateral hips, no saddle anesthesia, full sensation and dorsalis pedis pulses bilaterally). Absent: tenderness, CVA tenderness (R), CVA tenderness (L), paraspinal tenderness Course Vital Signs 05/23/24 18:49 Temperature 97.6 F Pulse Rate 85 Respiratory 22 Rate Blood Pressure 95/62 O2 Sat by Pulse 96 Oximetry Medical Decision Making - Medical Decision Making Was pt. sent in by a medical professional or institution (, PA, WEIGHT ANALYST, urgent care, hospital, or penitentiary...) When possible be specific @ -[No] Did you speak to anyone other than the patient for history (EMS, parent, family, police, friend...)? What history was obtained from this source @ -[No] Did you review nursing and triage notes (agree or disagree)? Why? @ -[I reviewed and agree with nursing and triage notes] Were old charts reviewed (outside hosp., previous admission, EMS record, old EKG, old radiological studies, urgent care reports/EKG's, penitentiary records)? Report findings @ -Previous ER visits were reviewed, EKG unchanged from previous visits Differential Diagnosis (chest pain, altered mental status, abdominal pain women, abdominal pain men, vaginal bleeding, weakness, fever, dyspnea, syncope, headache, dizziness, GI bleed, back pain, seizure, CVA, palpatations, mental health, musculoskeletal)? @ -Differential Chest Pain: Stable Angina, Unstable Angina, STEMI, NSTEMI Aortic Dissection, Pneumothorax, Musculoskeletal, Esophageal Spasm GERD, Cholecystitis, Pancreatitis, Zoster, this is not meant to be an all-inclusive list. EKG interpreted by me (3pts min.). @ -[As above] X-rays interpreted by me (1pt min.). @ -Chest x-ray reveals no acute process CT interpreted by me (1pt min.). @ -[None done] U/S interpreted by me (1pt. min.). @ -[None done] What testing was considered but not performed or refused? (CT, X-rays, U/S, labs)? Why? @ -[None] What meds were considered but not given or refused? Why? @ -[None] Did you discuss the management of the patient with other professionals (professionals i.e. Dr., PA, WEIGHT ANALYST, lab, RT, psych nurse, social service agency director, construction carpenter, teacher, collections officer, director case management)? Give summary @ -[No] Was smoking cessation discussed for >3mins.? @ -[No] Was critical care preformed (if so, how long)? @ -[No] Were there social determinants of health that impacted care today? How? (Homelessness, low income, unemployed, alcoholism, drug addiction, transporta tion, low edu. Level, literacy, decrease access to med. care, half-way, rehab)? @ -[No] Was there de-escalation of care discussed even if they declined (Discuss DNR or withdrawal of care, Hospice)? DNR status @ -[No] What co-morbidities impacted this encounter? (DM, HTN, Smoking, COPD, CAD, Cancer, CVA, ARF, Chemo, Hep., AIDS, mental health diagnosis, sleep apnea, morbid obesity)? @ -Alcohol use disorder Was patient admitted / discharged? Hospital course, mention meds given and route, prescriptions, significant lab abnormalities, going to OR and other pertinent info. @ -Patient was admitted. Patient was seen and evaluated for multiple complaints including chest pain, back pain, shortness of breath, and epigastric pain. Patient states chest pain has resolved. Patient is clearly intoxicated and admits last drink was 5 hours ago. Physical examination is unremarkable. No red flag symptoms. Patient was given 325 p.o. aspirin. Lab work remarkable for troponin 0.029 and serum alcohol 247. EKG reveals no acute change from previous EKGs. Chest x-ray reveals no acute process. Patient was admitted to [facility] for acute alcohol intoxication and ACS rule out. Cardiology services were consulted. Patient is agreeable to plan. Case was discussed with my attending Dr. Salas. Undiagnosed new problem with uncertain prognosis? @ -[No] Drug Therapy requiring intensive monitoring for toxicity (Heparin, Nitro, Insulin, Cardizem)? @ -[No] Were any procedures done? @ -[No] Diagnosis/symptom? @ -Acute alcohol intoxication, ACS rule out Acute, or Chronic, or Acute on Chronic? @ -Acute Uncomplicated (without systemic symptoms) or Complicated (systemic symptoms)? @ -Uncomplicated Side effects of treatment? @ -[No] Exacerbation, Progression, or Severe Exacerbation? @ -[No] Poses a threat to life or bodily function? How? (Chest pain, USA, DE, pneumonia, PE, COPD, DKA, ARF, appy, cholecystitis, CVA, Diverticulitis, Homicidal, Suicidal, threat to staff... and all critical care pts) @ -Yes - Lab Data Result diagrams: 05/23/24 21:44 05/23/24 23:05 Lab Results 05/23/24 05/23/24 05/23/24 Range/Units 21:44 21:44 23:05 WBC 7.1 (3.8-10.6) k/uL RBC 5.05 (3.80-5.40) m/uL Hgb 14.5 (11.4-16.0) gm/dL Hct 46.3 H (34.0-46.0) % MCV 91.7 (80.0-100.0) fL MCH 28.7 (25.0-35.0) pg MCHC 31.3 (31.0-37.0) g/dL RDW 17.6 H (11.5-15.5) % Plt Count 252 D (150-450) k/uL MPV 7.6 Neutrophils % 50 % Lymphocytes % 39 % Monocytes % 4 % Eosinophils % 1 % Basophils % 2 % Neutrophils # 3.6 (1.3-7.7) k/uL Lymphocytes # 2.8 (1.0-4.8) k/uL Monocytes # 0.3 (0-1.0) k/uL Eosinophils # 0.1 (0-0.7) k/uL Basophils # 0.2 (0-0.2) k/uL Anisocytosis Slight Sodium 142 (137-145) mmol/L Potassium 4.0 (3.5-5.1) mmol/L Chloride 106 (98-107) mmol/L Carbon Dioxide 19 L (22-30) mmol/L Anion Gap 17 mmol/L BUN 9 (7-17) mg/dL Creatinine 0.50 L (0.52-1.04) mg/dL Est GFR (CKD-EPI)AfAm >90 (>60 ml/min/1.73 sqM) Est GFR (CKD-EPI)NonAf >90 (>60 ml/min/1.73 sqM) Glucose 82 (74-99) mg/dL Calcium 8.8 (8.4-10.2) mg/dL Magnesium 2.0 (1.6-2.3) mg/dL Total Bilirubin 0.6 (0.2-1.3) mg/dL AST 49 H (14-36) U/L ALT 24 (4-34) U/L Alkaline Phosphatase 123 (38-126) U/L Troponin I 0.029 (0.000-0.034) ng/mL Total Protein 7.3 (6.3-8.2) g/dL Albumin 4.6 (3.5-5.0) g/dL Lipase 60 (23-300) U/L Serum Alcohol 247 H* mg/dL - EKG Data -: EKG Interpreted by [facility] EKG Comments: EKG reveals normal sinus rhythm with left atrial enlargement and nonspecific T wave abnormality, no acute changes compared to previous EKG. Ventricular rate 89 bpm, MN interval 151, QRS duration 94, QT/QTc 413/459 Disposition Clinical Impression: Acute alcohol intoxication, Chest pain Disposition: ADMITTED IP TO THIS HOSP Referrals: Miya Johnson MD [Primary Care Provider] - 1-2 days Time of Disposition: 00:38
--- NOTE | 2024-05-23 22:04 | XR ---
EXAMINATION TYPE: XR chest 2V DATE OF EXAM: 05/23/2024 COMPARISON: Chest radiograph 05/05/2024 HISTORY: Chest pain TECHNIQUE: Frontal and lateral views of the chest are obtained. FINDINGS: Mild prominence of the interstitial markings bilaterally likely chronic in nature. There i s no focal consolidation, pleural effusion, or pneumothorax seen. The cardiac silhouette size is wit hin normal limits. The osseous structures are intact. IMPRESSION: No acute cardiopulmonary process.
[2024-05-23 22:33] LABS: Anisocytosis Slight; Basophils # (A) 0.2 k/uL (0-0.2); Basophils % (A) 2 %; Eosinophils # (A) 0.1 k/uL (0-0.7); Eosinophils % (A) 1 %; HCT 46.3 % (34.0-46.0); HGB 14.5 gm/dL (11.4-16.0); Lymphocytes # (A) 2.8 k/uL (1.0-4.8); Lymphocytes % (A) 39 %; MCH 28.7 pg (25.0-35.0); MCHC 31.3 g/dL (31.0-37.0); MCV 91.7 fL (80.0-100.0); Mean Platelet Volume 7.6; Monocytes # (A) 0.3 k/uL (0-1.0); Monocytes % (A) 4 %; Neutrophils # (A) 3.6 k/uL (1.3-7.7); Neutrophils % (A) 50 %; RBC 5.05 m/uL (3.80-5.40); RDW 17.6 % (11.5-15.5); WBC 7.1 k/uL (3.8-10.6)
[2024-05-23 22:34] LABS: Platelet Count 252 k/uL (150-450)
[2024-05-23 23:42] LABS: ALT 24 U/L (4-34); AST 49 U/L (14-36); African American GFR (CKD) >90 (>60 ml/min/1.73 sqM); Albumin 4.6 g/dL (3.5-5.0); Alkaline Phosphatase 123 U/L (38-126); Blood Urea Nitrogen 9 mg/dL (7-17); Calcium 8.8 mg/dL (8.4-10.2); Carbon Dioxide 19 mmol/L (22-30); Glucose 82 mg/dL (74-99); Lipase 60 U/L (23-300); Non-African American GFR(CKD) >90 (>60 ml/min/1.73 sqM); Sodium 142 mmol/L (137-145); Total Bilirubin 0.6 mg/dL (0.2-1.3); Total Protein 7.3 g/dL (6.3-8.2)
[2024-05-23 23:44] LABS: Alcohol 247 mg/dL
[2024-05-23 23:45] LABS: Anion Gap 17 mmol/L; Chloride 106 mmol/L (98-107)
[2024-05-24] MEDS ORDERED: NALOXONE 0.4 MG/ML 1 ML VIAL IV PRN (00:29)
[2024-05-24] MEDS ORDERED: LORazepam 1 MG TAB PO PRN (01:07)
[2024-05-24] MEDS ORDERED: LORazepam 0.5 MG TAB PO PRN (01:07)
[2024-05-24] MEDS: ISOSORBIDE MONONITRATE ER 60 MG TAB.ER.24H PO STA (01:15)
[2024-05-24] MEDS: METOPROLOL SUCCINATE (ER) 100 MG TAB.ER.24H PO STA (01:15)
[2024-05-24] MEDS: ASPIRIN 81 MG PO STA (01:16)
[2024-05-24] MEDS: LORazepam 1 MG TAB PO PRN ×2 (01:16→14:42)
[2024-05-24] MEDS: IPRATROPIUM-ALBUTEROL 3 ML NEB INHALATION STA (02:29)
[2024-05-24] MEDS: ONDANSETRON 4 MG/2 ML VIAL IVP PRN (09:11)
[2024-05-24 09:51] LABS: Prothrombin Time 11.3 sec (10.0-12.5)
--- NOTE | 2024-05-24 10:34 | P.CRDCN ---
History of Present Illness Consult date: 05/24/24 Reason for Consult (text): Acute coronary syndrome rule out History of present illness: This is a 64-year-old female patient of Dr. Veena Howard with past medical history of coronary artery disease with chronic total occlusion of the right coronary artery, mild to moderate mitral regurgitation, history of recurrent CVAs status post left carotid stenting, tobacco use, hypertension, hyperlipidemia, alcohol abuse, cirrhosis of the liver. We have been asked to evaluate the patient for acute coronary syndrome rule out. Patient presented to the emergency center with low back pain that been going on for several days and also complained of chest pain earlier in the day that it resolved. She also had complaints of shortness of breath. Patient complains of epigastric pain for a day. Her last alcohol intake was 5 hours prior to arrival. Patient was last seen in the office on 05/13/2024 and plan was for repeat carotid duplex. There were no c omplaints of chest pain at that time. Patient presented to the emergency center with alcohol intoxication and has been started on the CIWA protocol. She continues to smoke. Blood pressure 162/89, heart rate 95, pulse ox 93% on room air. Patient is s/p 1 dose each of Imdur, Toprol XL, and aspirin. EKG sinus rhythm with nonspecific T wave changes Chest x-ray: No acute process. Laboratory studies: WBC 7.1, hemoglobin 14.5. Platelet count 252. Sodium 142, potassium 4, CO2 19, creatinine 0.5. Troponin negative x 3. AST 49. Serum alcohol 247. Home cardiac medications according to office note: Amlodipine 5 mg daily, atorvastatin 80 mg daily, aspirin 81 mg daily, Brilinta 90 mg twice daily, clonidine 0.1 mg 3 times daily, Imdur 30 mg daily, magnesium 400 mg daily, Toprol XL 50 mg daily. Cardiac catheterization performed 02/06/[address] Veena Howard revealed chronic total occlusion of the right coronary artery. No significant obstructive coronary artery disease involving the LAD which is where the stress test was abnormal. Echocardiogram performed 02/27/2024 reveals normal LV function. Mild mitral regurgitation. Lexiscan Cardiolite stress test performed in the office on 06/22/2021 was a negative stress test by EKG criteria. Abnormal nuclear scan showing evidence of small prior inferior wall myocardial infarction with preserved LV function without ischemia. Review Of Systems: At the time of my exam: CONSTITUTIONAL: Denies fever or chills. HEENT: Denies blurred vision, vision changes, or eye pain. Denies hemoptysis CARDIOVASCULAR: Denies chest pain. Denies orthopnea. Denies PND. Denies palpitations RESPIRATORY: Denies shortness of breath. GASTROINTESTINAL: Denies abdominal pain. Denies nausea or vomiting. HEMATOLOGIC: Denies bleeding disorders. GENITOURINARY: Denies any blood in urine. SKIN: Denies puritis. Denies rash. Physical examination: Gen: This is a 64-year-old female appears to be in no acute distress VS: reviewed HEENT: Head is atraumatic, normocephalic. Pupils equal, round. Sclerae is anicteric. NECK: Supple. No JVD. LUNGS: Clear to auscultation. No wheezes or rhonchi. No intercostal retractions. HEART: Regular rate and rhythm. Systolic murmur. ABDOMEN: Soft No tenderness. EXTREMITIES: No pedal edema. No calf tenderness. NEUROLOGICAL: Patient is awake, alert and oriented x3. Assessment: Atypical chest pain, acute coronary syndrome ruled out Alcohol intoxication History of coronary artery disease with known chronic total occlusion of the right coronary artery history of CVA History of carotid stenosis status post left carotid stenting Hypertension Hyperlipidemia Tobacco use and dependence Plan: Resumed patient's home cardiac medications from last office visit No need to repeat echocardiogram Patient is cleared from cardiology for discharge. No further cardiac workup at this time. Thank you kindly for this consultation. Nurse practitioner note has been reviewed, I agree with documented findings and plan of care. Patient was seen and examined. Past Medical History Past Medical History: Asthma, Coronary Artery Disease (CAD), COPD, CVA/TIA, Eye Disorder, Hypertension, Liver Disease, Myocardial Infarction ([place]), Seizure Disorder, Vascular Disorder Additional Past Medical History / Comment(s): Pt recently admitted to [facility] for diarrhea, ETOH abuse. 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 soon Last Myocardial Infarction Date:: aug 2018 History of Any Multi-Drug Resistant Organisms: None Reported Past Surgical History: Cholecystectomy, Heart Catheterization, Orthopedic Surgery Additional Past Surgical History / Comment(s): L caratid stent, bilateral knee surgeries for tendon repair, bartholian cyst removed bilateral wrists, cataracts Past Anesthesia/Blood Transfusion Reactions: Motion Sickness Additional Past Anesthesia/Blood Transfusion Reaction / Comment(s): Pt has received blood without reaction. Past Psychological History: Anxiety, Depression Additional Psychological History / Comment(s): She uses a walker to ambulate. She has a nebulizer. She no longer drives, Pt. manages her own meds. Smoking Status: Current every day smoker Past Alcohol Use History: Abuse, Daily, Heavy Additional Past Alcohol Use History / Comment(s): Pt started smoking as a teen and has cut down to 1/2 pack per day. Drinks a few alcoholic drinks daily. Past Drug Use History: Marijuana Additional Drug Use History / Comment(s): Pt has medical marijuana, reports she has not used it in a while. (Doesn't like the way it makes her feel) - Past Family History Mother Family Medical History: Cancer, Congestive Heart Failure (CHF), Coronary Artery Disease (CAD), Hyperlipidemia Additional Family Medical History / Comment(s): Mother at age 85 from lung cancer. Father Family Medical History: Cancer, COPD Additional Family Medical History / Comment(s): Father at age 63 from lung cancer. Brother(s) Additional Family Medical History / Comment(s): Patient has a total of 7 siblings. 5 are alive without any major medical problems she is aware of. 2 si blings have one from alcohol abuse and 1. Coronary artery disease. Daughter(s) Family Medical History: No Reported History Additional Family Medical History / Comment(s): Patient has one daughter with no major medical problems. Medications and Allergies Home Medications Medication Instructions Recorded Confirmed Type Aspirin EC [Ecotrin Low Dose] 81 mg PO HS 02/11/19 05/03/24 History Simvastatin [Zocor] 40 mg PO HS 07/03/22 05/03/24 History Albuterol Nebulized [Ventolin 2.5 mg INHALATION RT-QID PRN 05/17/23 05/03/24 History Nebulized] Budesonide/Formoterol Fumarate 2 puff INHALATION RT-HS 07/29/23 05/03/24 History [Symbicort 160-4.5 Mcg Inhaler] Multivitamin [Multivitamins Adult 2 tab PO HS 12/04/23 05/03/24 History Gummies] Isosorbide Mononitrate ER [Imdur] 60 mg PO HS 30 Days #30 tab 12/07/23 05/03/24 Rx Metoprolol Succinate (ER) [Toprol 100 mg PO HS 30 Days #30 tab 12/07/23 05/03/24 Rx XL] Pantoprazole [Protonix] 40 mg PO HS 01/02/24 05/03/24 History Ipratropium-Albuterol Nebulize 3 ml INHALATION RT-Q2H PRN each 01/07/24 05/03/24 Rx [Duoneb 0.5 mg-3 mg/3 ml Soln] Ipratropium-Albuterol Nebulize 3 ml INHALATION RT-QID #100 each 01/07/24 05/03/24 Rx [Duoneb 0.5 mg-3 mg/3 ml Soln] Ondansetron Odt [Zofran ODT] 4 mg PO Q8HR PRN #20 tab 01/07/24 05/03/24 Rx Ibuprofen [Motrin Ib] 400 mg PO Q8H PRN 01/15/24 05/03/24 History Ibuprofen [Motrin Ib] 600 mg PO HS 01/15/24 05/03/24 History Brimonidine Tartrate [Alphagan P 1 drop BOTH EYES HS 02/02/24 05/03/24 History 0.2% Ophth Soln] Fluticasone Nasal [place] [Flonase 2 spray EA NOSTRIL HS 02/02/24 05/03/24 History Nasal [place]] Famotidine [Pepcid] 20 mg PO HS 02/19/24 05/03/24 History Nicotine 14Mg/24Hr Patch [Habitrol] 1 patch TRANSDERM HS 02/19/24 05/03/24 History Thiamine [Vitamin B-1] 100 mg PO HS 02/19/24 05/03/24 History Ticagrelor [Brilinta] 90 mg PO HS 02/26/24 05/03/24 History Artificial Tears-Hypromellose 1 drop BOTH EYES TID PRN 03/10/24 05/03/24 History [Artificial Tear Drops] Magnesium Oxide [Mag-Ox] 400 mg PO HS 03/15/24 05/03/24 History Potassium Chloride ER [K-Dur 20] 20 meq PO HS 03/15/24 05/03/24 History Atorvastatin [Lipitor] 80 mg PO DIRECTED 05/03/24 05/03/24 History Cholecalciferol (Vitamin D3) 50 mcg PO DIRECTED 05/03/24 05/03/24 History [Vitamin D3 (50 Mcg = 2000 Iu)] Ferrous Sulfate [Feosol] 325 mg PO DIRECTED 05/03/24 05/03/24 History Isosorbide Mononitrate ER [Imdur] 30 mg PO DIRECTED 05/03/24 05/03/24 History Metoprolol Succinate (ER) [Toprol 50 mg PO DIRECTED 05/03/24 05/03/24 History Xl] Allergies Allergy/AdvReac Type Severity Reaction Status Date / Time [place] And Derivatives Allergy Rash/Hives Verified 05/23/24 18:51 [[place]] latex Allergy Rash/Hives Verified 05/23/24 18:51 cinnamon AdvReac Nausea Verified 05/23/24 18:51 Influenza Virus Vaccines AdvReac Nausea & Verified 05/23/24 18:51 Vomiting morphine AdvReac Nausea & Verified 05/23/24 18:51 Vomiting tomato AdvReac Diarrhea Verified 05/23/24 18:51 Physical Exam Vitals: Vital Signs Temp Pulse Pulse Resp BP BP BP 05/24/24 07:00 98.3 F 95 18 128/87 05/24/24 03:57 97.7 F 86 18 162/89 05/24/24 02:38 80 18 177/114 05/24/24 02:37 78 05/24/24 02:30 75 05/24/24 02:01 78 16 185/111 05/24/24 01:20 98 20 207/113 05/24/24 00:49 97.8 F 99 17 219/118 151/114 05/23/24 18:49 97.6 F 85 22 95/62 Pulse Ox 05/24/24 07:00 94 L 05/24/24 03:57 93 L 05/24/24 02:38 97 05/24/24 02:37 05/24/24 02:30 05/24/24 02:01 97 05/24/24 01:20 98 05/24/24 00:49 93 L 05/23/24 18:49 96 Intake and Output 05/23/24 05/24/24 05/24/24 22:59 06:59 14:59 Other: # Voids 1 Weight 74.843 kg 74.843 kg Results 05/23/24 21:44 05/23/24 23:05 Cardiac Enzymes 05/23/24 05/23/24 05/24/24 Range/Units 21:44 23:05 03:45 AST 49 H (14-36) U/L Troponin I 0.029 0.031 (0.000-0.034) ng/mL 05/24/24 Range/Units 05:22 AST (14-36) U/L Troponin I 0.025 (0.000-0.034) ng/mL CBC 05/23/24 Range/Units 21:44 WBC 7.1 (3.8-10.6) k/uL RBC 5.05 (3.80-5.40) m/uL Hgb 14.5 (11.4-16.0) gm/dL Hct 46.3 H (34.0-46.0) % Plt Count 252 D (150-450) k/uL Comprehensive Metabolic Panel 05/23/24 Range/Units 23:05 Sodium 142 (137-145) mmol/L Potassium 4.0 (3.5-5.1) mmol/L Chloride 106 (98-107) mmol/L Carbon Dioxide 19 L (22-30) mmol/L BUN 9 (7-17) mg/dL Creatinine 0.50 L (0.52-1.04) mg/dL Glucose 82 (74-99) mg/dL Calcium 8.8 (8.4-10.2) mg/dL AST 49 H (14-36) U/L ALT 24 (4-34) U/L Alkaline Phosphatase 123 (38-126) U/L Total Protein 7.3 (6.3-8.2) g/dL Albumin 4.6 (3.5-5.0) g/dL Current Medications Generic Name Dose Route Start Last Admin Trade Name Freq PRN Reason Stop Dose Admin Lorazepam 0.5 mg 05/24/24 01:07 Lorazepam 0.5 Mg Tab PO Q4HR PRN Ciwa 4 To 5 Lorazepam 1 mg 05/24/24 01:07 Lorazepam 1 Mg Tab PO Q4HR PRN Ciwa 6 To 7 Lorazepam 2 mg 05/24/24 01:07 05/24/24 01:16 Lorazepam 1 Mg Tab PO 2 mg Q2HR PRN Administration Ciwa 10 or greater Lorazepam 2 mg 05/24/24 01:07 Lorazepam 1 Mg Tab PO Q3HR PRN Ciwa 8 To 9 Naloxone HCl 0.2 mg 05/24/24 00:29 Naloxone 0.4 Mg/Ml 1 Ml Vial IV Q2M PRN Opioid Reversal Intake and Output 05/23/24 05/24/24 05/24/24 22:59 06:59 14:59 Other: # Voids 1 Weight 74.843 kg 74.843 kg 05/23/24 21:44 05/23/24 23:05
[2024-05-24] MEDS: ASPIRIN 81 MG PO SCH (10:47)
[2024-05-24] MEDS: amLODIPine 5 MG TAB PO SCH (10:47)
[2024-05-24] MEDS: cloNIDine HCL 0.1 MG TAB PO SCH (10:47)
[2024-05-24] MEDS: ISOSORBIDE MONONITRATE ER 30 MG TAB.ER.24H PO SCH (10:47)
[2024-05-24] MEDS: MAGNESIUM OXIDE 400 MG TAB PO SCH (10:47)
[2024-05-24] MEDS: METOPROLOL SUCCINATE (ER) 50 MG TAB.ER.24H PO SCH (10:47)
[2024-05-24] MEDS: TICAGRELOR 90 MG TAB PO SCH (11:24)
--- NOTE | 2024-05-24 13:43 | P.HPIM ---
History of Present Illness H&P Date: 05/24/24 History of present illness; patient 64-year-old lady with past medical significant for COPD, hyperlipidemia, alcohol abuse presented to the ER for complaint of chest pain. Patient has been seen multiple times the past for complaints of alcohol abuse and chest pains. Patient has been admitted for a lcohol detox but has found it hard to remain sober following the treatment. Patient stated that she was feeling depressed for the last few days. Patient was complaining of back pain for the last several days. Patient stated that this morning he started having chest pain was central in location, nonradiating, no aggravating or relieving factors associated with chest pain. There was no complaint of shortness of breath. Denies any orthopnea or PND. Patient has also been drinking heavily and was very intoxicated as well. Because of chest pain, patient came to the ER. Initial lab work done in the ER showed WBC 7.1, hemoglobin 14.5, platelet count 52, sodium 142, potassium 4.0, BUN 9, creatinine 0.50, calcium 8.8, magnesium 2, AST 14, ALT 24, troponin 0.029, alcohol level 247 EKG done in the ER showed heart rate of 89, no ST segment elevation or depression seen, no T-wave inversions seen. Chest x-ray done in the ER no acute cardiopulmonary process Patient admitted to internal medicine service REVIEW OF SYSTEMS: CONSTITUTIONAL: No fever, no malaise, no fatigue. HEENT: No recent visual problems or hearing problems. Denied any sore throat. CARDIOVASCULAR: As mentioned above PULMONARY: As mentioned above GASTROINTESTINAL: No diarrhea, no nausea, no vomiting, no abdominal pain. NEUROLOGICAL: No headaches, no weakness, no numbness. HEMATOLOGICAL: Denies any bleeding or petechiae. GENITOURINARY: Denies any burning micturition, frequency, or urgency. MUSCULOSKELETAL/RHEUMATOLOGICAL: Denies any joint pain, swelling, or any muscle pain. ENDOCRINE: Denies any polyuria or polydipsia. The rest of the 14-point review of systems is negative. PHYSICAL EXAMINATION: GENERAL: The patient is alert and oriented x3, not in any acute distress. Well developed, well nourished. HEENT: Pupils are round and equally reacting to light. EOMI. No scleral icterus. No conjunctival pallor. Normocephalic, atraumatic. No pharyngeal erythema. No thyromegaly. CARDIOVASCULAR: S1 and S2 present. No murmurs, rubs, or gallops. PULMONARY: Chest is clear to auscultation, no wheezing or crackles. ABDOMEN: Soft, nontender, nondistended, normoactive bowel sounds. No palpable organomegaly. MUSCULOSKELETAL: No joint swelling or deformity. EXTREMITIES: No cyanosis, clubbing, or pedal edema. NEUROLOGICAL: Gross neurological examination did not reveal any focal deficits. SKIN: No rashes. Assessment and plan Chest pain Alcohol intoxication Impending alcohol detox Coronary artery disease with chronic RCA occlusion with prior history of cardiac cath in January 2023 Prior history of similar complaints and alcohol intoxication/withdrawal. History of CVA with right residual right-sided weakness and slurred speech issues. History of ascites with paracentesis Gait and balance and falls Chronic back pain Degenerative's disease Anxiety/depression Current everyday smoker Monitor vital signs Monitor CBC Monitor CMP Continue telemetry monitoring Trend troponins. Start patient on CIWA protocol Start high-dose thiamine and folic acid Resume home meds Cardiology consult Labs and medication were reviewed.. Continue same treatment. Continue with symptomatic treatment. Resume home medication. Monitor labs and vitals. DVT and GI prophylaxis. Further recommendations as per clinical course of the patient Dictation was produced using [employer] dictation software. please excuse any gra mmatical, word or spelling errors. Past Medical History Past Medical History: Asthma, Coronary Artery Disease (CAD), COPD, CVA/TIA, Eye Disorder, Hypertension, Liver Disease, Myocardial Infarction ([place]), Seizure Disorder, Vascular Disorder Additional Past Medical History / Comment(s): Pt recently admitted to [facility] for diarrhea, ETOH abuse. 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 soon Last Myocardial Infarction Date:: aug 2018 History of Any Multi-Drug Resistant Organisms: None Reported Past Surgical History: Cholecystectomy, Heart Catheterization, Orthopedic Surgery Additional Past Surgical History / Comment(s): L caratid stent, bilateral knee surgeries for tendon repair, bartholian cyst removed bilateral wrists, cataracts Past Anesthesia/Blood Transfusion Reactions: Motion Sickness Additional Past Anesthesia/Blood Transfusion Reaction / Comment(s): Pt has rec eived blood without reaction. Past Psychological History: Anxiety, Depression Additional Psychological History / Comment(s): She uses a walker to ambulate. She has a nebulizer. She no longer drives, Pt. manages her own meds. Smoking Status: Current every day smoker Past Alcohol Use History: Abuse, Daily, Heavy Additional Past Alcohol Use History / Comment(s): Pt started smoking as a teen and has cut down to 1/2 pack per day. Drinks a few alcoholic drinks daily. Past Drug Use History: Marijuana Additional Drug Use History / Comment(s): Pt has medical marijuana, reports she has not used it in a while. (Doesn't like the way it makes her feel) - Past Family History Mother Family Medical History: Cancer, Congestive Heart Failure (CHF), Coronary Artery Disease (CAD), Hyperlipidemia Additional Family Medical History / Comment(s): Mother at age 85 from lung cancer. Father Family Medical History: Cancer, COPD Additional Family Medical History / Comment(s): Father at age 63 from lung cancer. Brother(s) Additional Family Medical History / Comment(s): Patient has a total of 7 siblings. 5 are alive without any major medical problems she is aware of. 2 siblings have one from alcohol abuse and 1. Coronary artery disease. Daughter(s) Family Medical History: No Reported History Additional Family Medical History / Comment(s): Patient has one daughter with no major medical problems. Medications and Allergies Home Medications Medication Instructions Recorded Confirmed Type Aspirin EC [Ecotrin Low Dose] 81 mg PO HS 02/11/19 05/24/24 History Budesonide/Formoterol Fumarate 2 puff INHALATION RT-HS 07/29/23 05/24/24 History [Symbicort 160-4.5 Mcg Inhaler] Multivitamin [Multivitamins Adult 2 tab PO HS 12/04/23 05/24/24 History Gummies] Pantoprazole [Protonix] 40 mg PO HS 01/02/24 05/24/24 History Brimonidine Tartrate [Alphagan P 1 drop BOTH EYES HS 02/02/24 05/24/24 History 0.2% Ophth Soln] Fluticasone Nasal [place] [Flonase 2 spray EA NOSTRIL HS 02/02/24 05/24/24 History Nasal [place]] Famotidine [Pepcid] 20 mg PO HS 02/19/24 05/24/24 History Ticagrelor [Brilinta] 90 mg PO HS 02/26/24 05/24/24 History Artificial Tears-Hypromellose 1 drop BOTH EYES TID PRN 03/10/24 05/24/24 History [Artificial Tear Drops] Magnesium Oxide [Mag-Ox] 400 mg PO HS 03/15/24 05/24/24 History Potassium Chloride ER [K-Dur 20] 20 meq PO HS 03/15/24 05/24/24 History Atorvastatin [Lipitor] 80 mg PO HS 05/03/24 05/24/24 History Cholecalciferol (Vitamin D3) 50 mcg PO HS 05/03/24 05/24/24 History [Vitamin D3 (50 Mcg = 2000 Iu)] Ferrous Sulfate [Feosol] 325 mg PO HS 05/03/24 05/24/24 History Isosorbide Mononitrate ER [Imdur] 30 mg PO HS 05/03/24 05/24/24 History Metoprolol Succinate (ER) [Toprol 50 mg PO HS 05/03/24 05/24/24 History Xl] Ipratropium-Albuterol Nebulize 3 ml INHALATION RT-QID PRN 05/24/24 05/24/24 History [Duoneb 0.5 mg-3 mg/3 ml Soln] Allergies Allergy/AdvReac Type Severity Reaction Status Date / Time [place] And Derivatives Allergy Rash/Hives Verified 05/24/24 11:08 [[place]] latex Allergy Rash/Hives Verified 05/24/24 11:08 cinnamon AdvReac Nausea Verified 05/24/24 11:08 Influenza Virus Vaccines AdvReac Nausea & Verified 05/24/24 11:08 Vomiting morphine AdvReac Nausea & Verified 05/24/24 11:08 Vomiting tomato AdvReac Diarrhea Verified 05/24/24 11:08 Physical Exam Vitals: Vital Signs Temp Pulse Pulse Resp BP BP BP 05/24/24 07:00 98.3 F 95 18 128/87 05/24/24 03:57 97.7 F 86 18 162/89 05/24/24 02:38 80 18 177/114 05/24/24 02:37 78 05/24/24 02:30 75 05/24/24 02:01 78 16 185/111 05/24/24 01:20 98 20 207/113 05/24/24 00:49 97.8 F 99 17 219/118 151/114 05/23/24 18:49 97.6 F 85 22 95/62 Pulse Ox 05/24/24 07:00 94 L 05/24/24 03:57 93 L 05/24/24 02:38 97 05/24/24 02:37 05/24/24 02:30 05/24/24 02:01 97 05/24/24 01:20 98 05/24/24 00:49 93 L 05/23/24 18:49 96 Intake and Output 05/23/24 05/24/24 05/24/24 22:59 06:59 14:59 Other: # Voids 1 1 # Bowel Movements 2 Weight 74.843 kg 74.843 kg Results CBC & Chem 7: 05/23/24 21:44 05/23/24 23:05 Labs: Abnormal Lab Results - Last 24 Hours (Table) 05/23/24 05/23/24 Range/Units 21:44 23:05 Hct 46.3 H (34.0-46.0) % RDW 17.6 H (11.5-15.5) % Carbon Dioxide 19 L (22-30) mmol/L Creatinine 0.50 L (0.52-1.04) mg/dL AST 49 H (14-36) U/L Serum Alcohol 247 H* mg/dL Thrombosis Risk Factor Assmnt - Choose All That Apply Any of the Below Risk Factors Present?: Yes Each Factor Represents 1 point: Abnormal pulmonary function (COPD), Obesity (BMI >25) Other Risk Factors: Yes Each Risk Factor Represents 2 Points: Age 61-74 years Other congenital or acquired thrombophilia - If yes, enter type in comment: No Thrombosis Risk Factor Assessment Total Risk Factor Score: 4 Thrombosis Risk Factor Assessment Level: Moderate Risk
[2024-05-24] MEDS: DICYCLOMINE 10 MG CAP PO PRN (14:42)
[2024-05-24] MEDS: HYDROCORTISONE SUPPOSITORY 25 MG SUPP RECTAL SCH (17:55)
[2024-05-24] MEDS: IPRATROPIUM-ALBUTEROL 3 ML NEB INHALATION PRN (20:15)
[2024-05-24] MEDS: SYMBICORT 160-4.5 MCG INHALER INHALATION SCH (20:15)
[2024-05-24] MEDS: BRIMONIDINE TARTRATE 0.2% DROPS 5 ML BTL BOTH EYES SCH (22:28)
[2024-05-24] MEDS: FLUTICASONE NASAL 50MCG/SPRAY 16GM BTL EA NOSTRIL SCH (22:28)
[2024-05-24] MEDS: LOPERAMIDE 2 MG CAP PO PRN (22:29)
[2024-05-24] MEDS: PANTOPRAZOLE 40 MG TABLET PO SCH (22:29)
[2024-05-24] MEDS: CHOLECALCIFEROL 25 MCG (1000 IU) TABLET PO SCH (22:29)
[2024-05-24] MEDS: FAMOTIDINE 20 MG TAB PO SCH (22:29)
[2024-05-24] MEDS: POTASSIUM CHLORIDE ER 20 MEQ TAB.ER PO SCH (22:30)
[2024-05-24] MEDS: ATORVASTATIN 80 MG TAB PO SCH (22:30)
[2024-05-24] MEDS: FERROUS SULFATE 325 MG TAB PO SCH (22:30)
[2024-05-25 07:17] VITALS: RESP 16
--- NOTE | 2024-05-25 10:37 | P.PN ---
Subjective Progress Note Date: 05/25/24 Reason for Consult (text): Acute coronary syndrome rule out History of present illness: This is a 64-year-old female patient of Dr. Veena Howard with past medical history of coronary artery disease with chronic total occlusion of the right coronary artery, mild to moderate mitral regurgitation, history of recurrent CVAs status post left carotid stenting, tobacco use, hypertension, hyperlipidemia, alcohol abuse, cirrhosis of the liver. We have been asked to evaluate the patient for acute coronary syndrome rule out. Patient presented to the emergency center with low back pain that been going on for several days and also complained of chest pain earlier in the day that it resolved. She also had complaints of shortness of breath. Patient complains of epigastric pain for a day. Her last alcohol intake was 5 hours prior to arrival. Patient was last seen in the office on 05/13/2024 and plan was for repeat carotid duplex. There were no complaints of chest pain at that time. Patient presented to the emergency center with alcohol intoxication and has been started on the CIWA protocol. She continues to smoke. Blood pressure 162/89, heart rate 95, pulse ox 93% on room air. Patient is s/p 1 dose each of Imdur, Toprol XL, and aspirin. EKG sinus rhythm with nonspecific T wave changes Chest x-ray: No acute process. Laboratory studies: WBC 7.1, hemoglobin 14.5. Platelet count 252. Sodium 142, potassium 4, CO2 19, creatinine 0.5. Troponin negative x 3. AST 49. Serum alcohol 247. Home cardiac medications according to office note: Amlodipine 5 mg daily, atorvastatin 80 mg daily, aspirin 81 mg daily, Brilinta 90 mg twice daily, clonidine 0.1 mg 3 times daily, Imdur 30 mg daily, magnesium 400 mg daily, Toprol XL 50 mg daily. Cardiac catheterization performed 02/06/[address] Veena Howard revealed chronic total occlusion of the right coronary artery. No significant obstructive coronary artery disease involving the LAD which is where the stress test was abnormal. Echocardiogram performed 02/27/2024 reveals normal LV function. Mild mitral regurgitation. Lexiscan Cardiolite stress test performed in the office on 06/22/2021 was a negative stress test by EKG criteria. Abnormal nuclear scan showing evidence of small prior inferior wall myocardial infarction with preserved LV function without ischemia. 05/25 Patient is seen today in follow-up. No complaints of chest pain. Patient has had diarrhea according to her nurse. Blood pressure 102/70, heart rate 64, pulse ox 95% on room air. Patient has appointment coming up in July which she will keep with Dr. Veena Howard. Patient is requesting that her cardiac prescriptions be sent to her pharmacy. Physical examination: Gen: This is a 64-year-old female appears to be in no acute distress VS: reviewed HEENT: Head is atraumatic, normocephalic. Pupils equal, round. Sclerae is an icteric. NECK: Supple. No JVD. LUNGS: Clear to auscultation. No wheezes or rhonchi. No intercostal retractions. HEART: Regular rate and rhythm. Systolic murmur. ABDOMEN: Soft No tenderness. EXTREMITIES: No pedal edema. No calf tenderness. NEUROLOGICAL: Patient is awake, alert and oriented x3. Assessment: Atypical chest pain, acute coronary syndrome ruled out Alcohol intoxication History of coronary artery disease with known chronic total occlusion of the right coronary artery history of CVA History of carotid stenosis status post left carotid stenting Hypertension Hyperlipidemia Tobacco use and dependence Plan: Continue patient's home cardiac medications from last office visit, pre scriptions will be sent to her pharmacy No need to repeat echocardiogram Patient is cleared from cardiology for discharge. No further cardiac workup at this time. Nurse practitioner note has been reviewed, I agree with documented findings and plan of care. Patient was seen and examined. Objective - Vital Signs Vital signs: Vital Signs Temp 98.7 F 05/25/24 07:00 Pulse 64 05/25/24 07:00 Resp 16 05/25/24 07:00 BP 102/70 05/25/24 07:00 Pulse Ox 95 05/25/24 07:00 FiO2 Intake & Output 05/24/24 05/25/24 05/25/24 18:59 06:59 18:59 Intake Total 118 1198 240 Balance 118 1198 240 Intake: Oral 118 1198 240 Other: Voiding Method Toilet Bedpan # Voids 2 3 1 # Bowel Movements 3 - Labs CBC & Chem 7: 05/23/24 21:44 05/23/24 23:05
--- NOTE | 2024-05-25 13:04 | P.DS ---
Providers Date of admission: 05/24/24 00:27 Expected date of discharge: 05/25/24 Attending physician: Mayra Beard Consults: 05/24/24 00:29 Consult Physician Urgent Consulting Provider: [facility] Consult Reason/Comments: ACS rule out Do you want consulting provider notified?: Yes Primary care physician: [facility] Hospital Course: Discharge diagnoses; Chest pain Alcohol intoxication Impending alcohol detox Coronary artery disease with chronic RCA occlusion with prior history of cardiac cath in January 2023 Prior history of similar complaints and alcohol intoxication/withdrawal. History of CVA with right residual right-sided weakness and slurred speech issues. History of ascites with paracentesis Gait and balance and falls Chronic back pain Degenerative's disease Anxiety/depression Current everyday smoker Hospital course; patient 64-year-old lady with past medical significant for COPD, hyperlipidemia, alcohol abuse presented to the ER for complaint of chest pain. Patient has been seen multiple times the past for complaints of alcohol abuse and chest pains. Patient has been admitted for alcohol detox but has found it hard to remain sober following the treatment. Patient stated that she was feeling depressed for the last few days. Patient was complaining of back pain for the last several days. Patient stated that this morning he started having chest pain was central in location, nonradiating, no aggravating or relieving factors associated with chest pain. There was no complaint of shortness of breath. Denies any orthopnea or PND. Patient has also been drinking heavily and was very intoxicated as well. Because of chest pain, patient came to the ER. Initial lab work done in the ER showed WBC 7.1, hemoglobin 14.5, platelet count 52, sodium 142, potassium 4.0, BUN 9, creatinine 0.50, calcium 8.8, magnesium 2, AST 14, ALT 24, troponin 0.029, alcohol level 247 EKG done in the ER showed heart rate of 89, no ST segment elevation or depression seen, no T-wave inversions seen. Chest x-ray done in the ER no acute cardiopulmonary process Patient admitted to internal medicine service 05/25. Patient seen and examined. Patient was evaluated by cardiology, recommended no ischemic workup. Patient CIWA scores have been low, will be discharged to follow-up outpatient with the PCP PHYSICAL EXAMINATION: GENERAL: The patient is alert and oriented x3, not in any acute distress. Well developed, well nourished. HEENT: Pupils are round and equally reacting to light. EOMI. No scleral icterus. No conjunctival pallor. Normocephalic, atraumatic. No pharyngeal erythema. No thyromegaly. CARDIOVASCULAR: S1 and S2 present. No murmurs, rubs, or gallops. PULMONARY: Chest is clear to auscultation, no wheezing or crackles. ABDOMEN: Soft, nontender, nondistended, normoactive bowel sounds. No palpable organomegaly. MUSCULOSKELETAL: No joint swelling or deformity. EXTREMITIES: No cyanosis, clubbing, or pedal edema. NEUROLOGICAL: Gross neurological examination did not reveal any focal deficits. SKIN: No rashes. Dictation was produced using [employer] dictation software. please excuse any grammatical, word or spelling errors. Patient Condition at Discharge: Fair Plan - Discharge Summary New Discharge Prescriptions: New amLODIPine [Norvasc] 5 mg PO DAILY #90 tab cloNIDine HCL [Catapres] 0.1 mg PO TID #180 tab Continue Budesonide/Formoterol Fumarate [Symbicort 160-4.5 Mcg Inhaler] 2 puff INHALATION RT-HS Multivitamin [Multivitamins Adult Gummies] 2 tab PO HS Famotidine [Pepcid] 20 mg PO HS Ferrous Sulfate [Iron (65 MG Elemental)] 325 mg PO HS Ipratropium-Albuterol Nebulize [Duoneb 0.5 mg-3 mg/3 ml Soln] 3 ml INHALATION RT-QID PRN PRN Reason: Shortness Of Breath Aspirin EC [Ecotrin Low Dose] 81 mg PO HS #90 tab Isosorbide Mononitrate ER [Imdur] 30 mg PO HS #90 tab Atorvastatin [Lipitor] 80 mg PO HS #90 tab Metoprolol Succinate (ER) [Toprol XL] 50 mg PO HS #90 tab Pantoprazole [Protonix] 40 mg PO HS Brimonidine Tartrate [Alphagan P 0.2% Ophth Soln] 1 drop BOTH EYES HS Fluticasone Nasal [place] [Flonase Nasal [place]] 2 spray EA NOSTRIL HS Artificial Tears-Hypromellose [Artificial Tear Drops] 1 drop BOTH EYES TID PRN PRN Reason: Dry Eye(S) Potassium Chloride ER [K-Dur 20] 20 meq PO HS Cholecalciferol (Vitamin D3) [Vitamin D3 (50 Mcg = 2000 Iu)] 50 mcg PO HS Ticagrelor [Brilinta] 90 mg PO HS #90 tab Magnesium Oxide [Mag-Ox] 400 mg PO HS #90 tab Discharge Medication List Budesonide/Formoterol Fumarate [Symbicort 160-4.5 Mcg Inhaler] 2 puff INHALATION RT-HS 07/29/23 [History] Multivitamin [Multivitamins Adult Gummies] 2 tab PO HS 12/04/23 [History] Pantoprazole [Protonix] 40 mg PO HS 01/02/24 [History] Brimonidine Tartrate [Alphagan P 0.2% Ophth Soln] 1 drop BOTH EYES HS 02/02/24 [History] Fluticasone Nasal [place] [Flonase Nasal [place]] 2 spray EA NOSTRIL HS 02/02/24 [History] Famotidine [Pepcid] 20 mg PO HS 02/19/24 [History] Artificial Tears-Hypromellose [Artificial Tear Drops] 1 drop BOTH EYES TID PRN 03/10/24 [History] Potassium Chloride ER [K-Dur 20] 20 meq PO HS 03/15/24 [History] Cholecalciferol (Vitamin D3) [Vitamin D3 (50 Mcg = 2000 Iu)] 50 mcg PO HS 05/03/24 [History] Ferrous Sulfate [Iron (65 MG Elemental)] 325 mg PO HS 05/03/24 [History] Ipratropium-Albuterol Nebulize [Duoneb 0.5 mg-3 mg/3 ml Soln] 3 ml INHALATION RT-QID PRN 05/24/24 [History] Aspirin EC [Ecotrin Low Dose] 81 mg PO HS #90 tab 05/25/24 [Rx] Atorvastatin [Lipitor] 80 mg PO HS #90 tab 05/25/24 [Rx] Isosorbide Mononitrate ER [Imdur] 30 mg PO HS #90 tab 05/25/24 [Rx] Magnesium Oxide [Mag-Ox] 400 mg PO HS #90 tab 05/25/24 [Rx] Metoprolol Succinate (ER) [Toprol XL] 50 mg PO HS #90 tab 05/25/24 [Rx] Ticagrelor [Brilinta] 90 mg PO HS #90 tab 05/25/24 [Rx] amLODIPine [Norvasc] 5 mg PO DAILY #90 tab 05/25/24 [Rx] cloNIDine HCL [Catapres] 0.1 mg PO TID #180 tab 05/25/24 [Rx] Follow up Appointment(s)/Referral(s): Miya Johnson MD [Primary Care Provider] - 1-2 days Unruly Howard MD [STAFF PHYSICIAN] - As Needed (patient has appointment) Discharge Disposition: HOME SELF-CARE
[2024-05-25 14:18] VITALS: BP 96/59; PULSE 75; TEMP 98.5
== END 2024-05-25 15:31 | disposition home or self-care (01) ==
LOC: SUPCPDRO 18:40 → EC 18:40 → 6NMEDSUR 05-24 00:27
PROVIDERS: ADMIT Internal Medicine; ATTEND Internal Medicine
DX: R07.89 Other chest pain (principal); F10.129 Alcohol abuse with intoxication, unspecified; I25.10 Atherosclerotic heart disease of native coronary artery without angina pectoris; I69.351 Hemiplegia and hemiparesis following cerebral infarction affecting right dominant side; F41.9 Anxiety disorder, unspecified; G89.29 Other chronic pain; M54.50 Low back pain, unspecified; F17.200 Nicotine dependence, unspecified, uncomplicated; Z95.5 Presence of coronary angioplasty implant and graft; Z82.5 Family history of asthma and other chronic lower respiratory diseases; Z82.49 Family history of ischemic heart disease and other diseases of the circulatory system; Z80.1 Family history of malignant neoplasm of trachea, bronchus and lung; Z79.82 Long term (current) use of aspirin; Z79.51 Long term (current) use of inhaled steroids; Y90.8 Blood alcohol level of 240 mg/100 ml or more; J44.89 Other specified chronic obstructive pulmonary disease; I25.82 Chronic total occlusion of coronary artery; I10 Essential (primary) hypertension; G40.909 Epilepsy, unspecified, not intractable, without status epilepticus; F32.A Depression, unspecified; E78.5 Hyperlipidemia, unspecified; I34.0 Nonrheumatic mitral (valve) insufficiency
CPT/HCPCS: 96374; 99285; 36415; 94640 ×3; 93005; 80053; 83690; 83735; 84484 ×2; 85025; 85610; 71046; G0378 ×2; G0480; J2405; 80320

== ENCOUNTER 2024-06-11 15:55 | Emergency (ER) | payer OTHER ==
[2024-06-11 16:23] VITALS: RESP 18
--- NOTE | 2024-06-11 16:58 | ED ---
General Adult HPI - General Chief complaint: Nausea/Vomiting/Diarrhea Stated complaint: NVD Time Seen by Provider: 06/11/24 16:08 Source: patient, EMS, RN notes reviewed Mode of arrival: EMS Limitations: no limitations - History of Present Illness Initial comments: Patient is a 64-year-old female presenting to the emergency department with concerns for vomiting and diarrhea. Onset of symptoms was around 24 hours ago after eating. Patient has vomited and had diarrhea over 5 times each. Patient does have some abdominal discomfort. Patient does have history of some similar symptoms previously, unclear why. Patient request medication for anxiety as well as chronic back pain. - Related Data Home Medications Medication Instructions Recorded Confirmed Budesonide/Formoterol Fumarate 2 puff INHALATION RT-HS 07/29/23 05/24/24 [Symbicort 160-4.5 Mcg Inhaler] Multivitamin [Multivitamins Adult 2 tab PO HS 12/04/23 05/24/24 Gummies] Pantoprazole [Protonix] 40 mg PO HS 01/02/24 05/24/24 Brimonidine Tartrate [Alphagan P 1 drop BOTH EYES HS 02/02/24 05/24/24 0.2% Ophth Soln] Fluticasone Nasal [place] [Flonase 2 spray EA NOSTRIL HS 02/02/24 05/24/24 Nasal [place]] Famotidine [Pepcid] 20 mg PO HS 02/19/24 05/24/24 Artificial Tears-Hypromellose 1 drop BOTH EYES TID PRN 03/10/24 05/24/24 [Artificial Tear Drops] Potassium Chloride ER [K-Dur 20] 20 meq PO HS 03/15/24 05/24/24 Cholecalciferol (Vitamin D3) 50 mcg PO HS 05/03/24 05/24/24 [Vitamin D3 (50 Mcg = 2000 Iu)] Ferrous Sulfate [Iron (65 MG 325 mg PO HS 05/03/24 05/24/24 Elemental)] Ipratropium-Albuterol Nebulize 3 ml INHALATION RT-QID PRN 05/24/24 05/24/24 [Duoneb 0.5 mg-3 mg/3 ml Soln] Previous Rx's Medication Instructions Recorded Aspirin EC [Ecotrin Low Dose] 81 mg PO HS #90 tab 05/25/24 Atorvastatin [Lipitor] 80 mg PO HS #90 tab 05/25/24 Isosorbide Mononitrate ER [Imdur] 30 mg PO HS #90 tab 05/25/24 Magnesium Oxide [Mag-Ox] 400 mg PO HS #90 tab 05/25/24 Metoprolol Succinate (ER) [Toprol 50 mg PO HS #90 tab 05/25/24 XL] Ticagrelor [Brilinta] 90 mg PO HS #90 tab 05/25/24 amLODIPine [Norvasc] 5 mg PO DAILY #90 tab 05/25/24 cloNIDine HCL [Catapres] 0.1 mg PO TID #180 tab 05/25/24 Allergies Allergy/AdvReac Type Severity Reaction Status Date / Time [place] And Derivatives Allergy Rash/Hives Verified 06/11/24 16:24 [[place]] latex Allergy Rash/Hives Verified 06/11/24 16:24 cinnamon AdvReac Nausea Verified 06/11/24 16:24 Influenza Virus Vaccines AdvReac Nausea & Verified 06/11/24 16:24 Vomiting morphine AdvReac Nausea & Verified 06/11/24 16:24 Vomiting tomato AdvReac Diarrhea Verified 06/11/24 16:24 Review of Systems ROS Statement: Those systems with pertinent positive or pertinent negative responses have been documented in the HPI. ROS Other: All systems not noted in ROS Statement are negative. Constitutional: Denies: fever Eyes: Denies: eye pain ENT: Denies: ear pain Respiratory: Denies: cough Cardiovascular: Denies: edema Gastrointestinal: Reports: abdominal pain, nausea, vomiting, diarrhea Genitourinary: Denies: dysuria Musculoskeletal: Reports: as per HPI Skin: Denies: rash Neurological: Denies: weakness Past Medical History Past Medical History: Asthma, Coronary Artery Disease (CAD), COPD, CVA/TIA, Eye Disorder, Hypertension, Liver Disease, Myocardial Infarction (HI), Seizure Disorder, Vascular Disorder Additional Past Medical History / Comment(s): Pt recently admitted to [facility] for diarrhea, ETOH abuse. 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 soon Last Myocardial Infarction Date:: aug 2018 History of Any Multi-Drug Resistant Organisms: None Reported Past Surgical History: Cholecystectomy, Heart Catheterization, Orthopedic Surgery Additional Past Surgical History / Comment(s): L caratid stent, bilateral knee surgeries for tendon repair, bartholian cyst removed bilateral wrists, cataracts Past Anesthesia/Blood Transfusion Reactions: Motion Sickness Additional Past Anesthesia/Blood Transfusion Reaction / Comment(s): Pt has received blood without reaction. Past Psychological History: Anxiety, Depression Smoking Status: Current every day smoker Past Alcohol Use History: Abuse, Daily, Heavy Past Drug Use History: Marijuana - Past Family History Mother Family Medical History: Cancer, Congestive Heart Failure (CHF), Coronary Artery Disease (CAD), Hyperlipidemia Additional Family Medical History / Comment(s): Mother at age 85 from lung cancer. Father Family Medical History: Cancer, COPD Additional Family Medical History / Comment(s): Father at age 63 from lung cancer. Brother(s) Additional Family Medical History / Comment(s): Patient has a total of 7 siblings. 5 are alive without any major medical problems she is aware of. 2 siblings have one from alcohol abuse and 1. Coronary artery disease. Daughter(s) Family Medical History: No Reported History Additional Family Medical History / Comment(s): Patient has one daughter with no major medical problems. General Exam Limitations: no limitations General appearance: alert, in no apparent distress Head exam: Present: normocephalic Eye exam: Present: normal appearance ENT exam: Present: normal oropharynx Neck exam: Present: normal inspection Respiratory exam: Present: normal lung sounds bilaterally Cardiovascular Exam: Present: regular rate, normal rhythm GI/Abdominal exam: Present: soft, normal bowel sounds. Absent: distended, tenderness, guarding, rebound, rigid, pulsatile mass Extremities exam: Present: normal inspection. Absent: pedal edema, calf tenderness Neurological exam: Present: alert Psychiatric exam: Present: normal affect, normal mood Skin exam: Present: normal color Course Vital Signs 06/11/24 06/11/24 16:20 18:06 Temperature 97.2 F L Pulse Rate 93 93 Respiratory 18 18 Rate Blood Pressure 144/108 137/101 O2 Sat by Pulse 97 94 L Oximetry EKG Findings - EKG Results: EKG: interpreted by ERMD (QTc 486. Nonspecific ST-T.), sinus rhythm, normal axis, normal QRS Medical Decision Making - Medical Decision Making Was pt. sent in by a medical professional or institution ([facility], [employer], urgent care, hospital, or intermediate...) When possible be specific @ -No Did you speak to anyone other than the patient for history (EMS, parent, family, police, friend...)? What history was obtained from this source @ -No Did you review nursing and triage notes (agree or disagree)? Why? @ -I reviewed and agree with nursing and triage notes Were old charts reviewed (outside hosp., previous admission, EMS record, old EKG, old radiological studies, urgent care reports/EKG's, intermediate records)? Report findings @ -Old previous charts reviewed including admissions and lab work Differential Diagnosis (chest pain, altered mental status, abdominal pain women, abdominal pain men, vaginal bleeding, weakness, fever, dyspnea, syncope, headache, dizziness, GI bleed, back pain, seizure, CVA, palpatations, mental health, musculoskeletal)? @ -Differential Abdominal Pain Women: Appendicitis, Cholecystitis, diverticulosis, ischemic bowel, pancreatitis, hepatitis, UTI, gastroenteritis, AAA, incarcerated hernia, bowel obstruction, constipation, inflammatory bowel, hepatitis, peptic ulcer disease, splenic infarction, perforated viscus, vulvitis, ovarian torsion, PID, kidney stone, placenta abruption, this is not meant to be an all-inclusive list EKG interpreted by me (3pts min.). @ -As above X-rays interpreted by me (1pt min.). @ -Chest and abdominal x-ray did not reveal acute abnormality CT interpreted by me (1pt min.). @ -None done U/S interpreted by me (1pt. min.). @ -None done What testing was considered but not performed or refused? (CT, X-rays, U/S, labs)? Why? @ -None What meds were considered but not given or refused? Why? @ -None Did you discuss the management of the patient with other professionals (professionals i.e. [facility] Lloyd, [employer], lab, RT, psych nurse, social media project manager, molding line assistant, teacher, anti air warfare operations officer, rifle case repairer)? Give summary @ -No Was smoking cessation discussed for >3mins.? @ -No Was critical care preformed (if so, how long)? @ -No Were there social determinants of health that impacted care today? How? (Homelessness, low income, unemployed, alcoholism, drug addiction, transportation, low edu. Level, literacy, decrease access to med. care, halfway, rehab)? @ -No Was there de-escalation of care discussed even if they declined (Discuss DNR or withdrawal of care, Hospice)? DNR status @ -No What co-morbidities impacted this encounter? (DM, HTN, Smoking, COPD, CAD, Cancer, CVA, ARF, Chemo, Hep., AIDS, mental health diagnosis, sleep apnea, morbid obesity)? @ -None Was patient admitted / discharged? Hospital course, mention meds given and route, prescriptions, significant lab abnormalities, going to OR and other pertinent info. @ -Patient reevaluated and resting comfortably in bed. Patient states she feels better and believes the Ativan helped her. Patient is updated on results and need for follow-up. Patient will be discharged Undiagnosed new problem with uncertain prognosis? @ -No Drug Therapy requiring intensive monitoring for toxicity (Heparin, Nitro, Insulin, Cardizem)? @ -No Were any procedures done? @ -No Diagnosis/symptom? @ -Vomiting, diarrhea Acute, or Chronic, or Acute on Chronic? @ -Acute, acute Uncomplicated (without systemic symptoms) or Complicated (systemic symptoms)? @ -Default Side effects of treatment? @ -No Exacerbation, Progression, or Severe Exacerbation? @ -No Poses a threat to life or bodily function? How? (Chest pain, [place], HI, pneumonia, PE, COPD, DKA, ARF, appy, cholecystitis, CVA, Diverticulitis, Homicidal, Suicidal, threat to staff... and all critical care pts) @ -No - Lab Data Result diagrams: 06/11/24 18:02 06/11/24 18:02 Lab Results 06/11/24 06/11/24 06/11/24 Range/Units 18:02 18:02 18:02 WBC 7.8 (3.8-10.6) k/uL RBC 4.70 (3.80-5.40) m/uL Hgb 13.8 (11.4-16.0) gm/dL Hct 41.6 (34.0-46.0) % MCV 88.6 (80.0-100.0) fL MCH 29.4 (25.0-35.0) pg MCHC 33.2 (31.0-37.0) g/dL RDW 18.4 H (11.5-15.5) % Plt Count 165 (150-450) k/uL MPV 7.0 Neutrophils % 68 % Lymphocytes % 19 % Monocytes % 10 % Eosinophils % 1 % Basophils % 1 % Neutrophils # 5.3 (1.3-7.7) k/uL Lymphocytes # 1.5 (1.0-4.8) k/uL Monocytes # 0.8 (0-1.0) k/uL Eosinophils # 0.1 (0-0.7) k/uL Basophils # 0.1 (0-0.2) k/uL Anisocytosis Slight PT 11.1 (10.0-12.5) sec INR 1.0 (<1.2) APTT 24.5 (22.0-30.0) sec Sodium 134 L (137-145) mmol/L Potassium 3.3 L (3.5-5.1) mmol/L Chloride 103 (98-107) mmol/L Carbon Dioxide 24 (22-30) mmol/L Anion Gap 7 mmol/L BUN 7 (7-17) mg/dL Creatinine 0.39 L (0.52-1.04) mg/dL Est GFR (CKD-EPI)AfAm >90 (>60 ml/min/1.73 sqM) Est GFR (CKD-EPI)NonAf >90 (>60 ml/min/1.73 sqM) Glucose 106 H (74-99) mg/dL Calcium 7.9 L (8.4-10.2) mg/dL Total Bilirubin 1.0 (0.2-1.3) mg/dL AST 41 H (14-36) U/L ALT 22 (4-34) U/L Alkaline Phosphatase 95 (38-126) U/L Troponin I (0.000-0.034) ng/mL Total Protein 6.7 (6.3-8.2) g/dL Albumin 4.1 (3.5-5.0) g/dL Amylase 56 (30-110) U/L Lipase 45 (23-300) U/L Urine Color Urine Appearance (Clear) Urine pH (5.0-8.0) Ur Specific [place] (1.001-1.035) Urine Protein (Negative) Urine Glucose (UA) (Negative) Urine Ketones (Negative) Urine Blood (Negative) Urine Nitrite (Negative) Urine Bilirubin (Negative) Urine Urobilinogen (<2.0) mg/dL Ur Leukocyte Esterase (Negative) Serum Alcohol <10 mg/dL 06/11/24 06/11/24 Range/Units 18:02 18:06 WBC (3.8-10.6) k/uL RBC (3.80-5.40) m/uL Hgb (11.4-16.0) gm/dL Hct (34.0-46.0) % MCV (80.0-100.0) fL MCH (25.0-35.0) pg MCHC (31.0-37.0) g/dL RDW (11.5-15.5) % Plt Count (150-450) k/uL MPV Neutrophils % % Lymphocytes % % Monocytes % % Eosinophils % % Basophils % % Neutrophils # (1.3-7.7) k/uL Lymphocytes # (1.0-4.8) k/uL Monocytes # (0-1.0) k/uL Eosinophils # (0-0.7) k/uL Basophils # (0-0.2) k/uL Anisocytosis PT (10.0-12.5) sec INR (<1.2) APTT (22.0-30.0) sec Sodium (137-145) mmol/L Potassium (3.5-5.1) mmol/L Chloride (98-107) mmol/L Carbon Dioxide (22-30) mmol/L Anion Gap mmol/L BUN (7-17) mg/dL Creatinine (0.52-1.04) mg/dL Est GFR (CKD-EPI)AfAm (>60 ml/min/1.73 sqM) Est GFR (CKD-EPI)NonAf (>60 ml/min/1.73 sqM) Glucose (74-99) mg/dL Calcium (8.4-10.2) mg/dL Total Bilirubin (0.2-1.3) mg/dL AST (14-36) U/L ALT (4-34) U/L Alkaline Phosphatase (38-126) U/L Troponin I 0.014 (0.000-0.034) ng/mL Total Protein (6.3-8.2) g/dL Albumin (3.5-5.0) g/dL Amylase (30-110) U/L Lipase (23-300) U/L Urine Color Colorless Urine Appearance Clear (Clear) Urine pH 7.5 (5.0-8.0) Ur Specific [place] 1.004 (1.001-1.035) Urine Protein Negative (Negative) Urine Glucose (UA) Negative (Negative) Urine Ketones Negative (Negative) Urine Blood Negative (Negative) Urine Nitrite Negative (Negative) Urine Bilirubin Negative (Negative) Urine Urobilinogen <2.0 (<2.0) mg/dL Ur Leukocyte Esterase Negative (Negative) Serum Alcohol mg/dL Disposition Clinical Impression: Vomiting, Diarrhea Disposition: HOME SELF-CARE Condition: Stable Instructions (If sedation given, give patient instructions): Acute Nausea and Vomiting (ED), Acute Diarrhea (ED) Additional Instructions: Please use your nausea medicine as needed. Please follow-up with your primary care physician in the next 1 or 2 days for recheck. Return for fevers, not tolerating fluids, increased pain, uncontrolled diarrhea, worsening symptoms or other concerns. Is patient prescribed a controlled substance at d/c from ED?: No Referrals: Miya Johnson MD [Primary Care Provider] - 1-2 days Time of Disposition: 19:53
[2024-06-11] MEDS: ONDANSETRON 4 MG/2 ML VIAL IVP STA (18:10)
[2024-06-11] MEDS: FAMOTIDINE 20 MG/2 ML VIAL IV STA (18:11)
[2024-06-11] MEDS: LORazepam 2 MG/ML INJ IV STA (18:11)
[2024-06-11 18:13] LABS: Anisocytosis Slight; Basophils # (A) 0.1 k/uL (0-0.2); Basophils % (A) 1 %; Eosinophils # (A) 0.1 k/uL (0-0.7); Eosinophils % (A) 1 %; HCT 41.6 % (34.0-46.0); HGB 13.8 gm/dL (11.4-16.0); Lymphocytes # (A) 1.5 k/uL (1.0-4.8); Lymphocytes % (A) 19 %; MCH 29.4 pg (25.0-35.0); MCHC 33.2 g/dL (31.0-37.0); MCV 88.6 fL (80.0-100.0); Monocytes # (A) 0.8 k/uL (0-1.0); Monocytes % (A) 10 %; Neutrophils # (A) 5.3 k/uL (1.3-7.7); Neutrophils % (A) 68 %; Platelet Count 165 k/uL (150-450); RDW 18.4 % (11.5-15.5); WBC 7.8 k/uL (3.8-10.6)
[2024-06-11] MEDS: SODIUM CHLORIDE 0.9% 1,000 ML IV STA (18:13)
[2024-06-11 18:14] LABS: Appearance,Urine Clear (Clear); Bilirubin,Urine Negative (Negative); Blood,Urine Negative (Negative); Color,Urine Colorless; Glucose,Urine (UA) Negative (Negative); Ketones,Urine Negative (Negative); Leukocyte Esterase,Urine Negative (Negative); Nitrite,Urine Negative (Negative); PH, Urine 7.5 (5.0-8.0); Protein,Urine Negative (Negative); Specific Gravity,Urine 1.004 (1.001-1.035); Urobilinogen,Urine <2.0 mg/dL (<2.0)
[2024-06-11] MEDS: DICYCLOMINE 10 MG/ML 2 ML AMP IM STA (18:15)
[2024-06-11 18:24] LABS: Partial Thromboplastin Time 24.5 sec (22.0-30.0); Prothrombin Time 11.1 sec (10.0-12.5)
[2024-06-11 18:32] LABS: ALT 22 U/L (4-34); African American GFR (CKD) >90 (>60 ml/min/1.73 sqM); Albumin 4.1 g/dL (3.5-5.0); Alcohol <10 mg/dL; Amylase 56 U/L (30-110); Anion Gap 7 mmol/L; Blood Urea Nitrogen 7 mg/dL (7-17); Calcium 7.9 mg/dL (8.4-10.2); Carbon Dioxide 24 mmol/L (22-30); Chloride 103 mmol/L (98-107); Glucose 106 mg/dL (74-99); Lipase 45 U/L (23-300); Non-African American GFR(CKD) >90 (>60 ml/min/1.73 sqM); Sodium 134 mmol/L (137-145); Total Protein 6.7 g/dL (6.3-8.2)
[2024-06-11] MEDS: IBUPROFEN 400 MG TAB PO STA (18:55)
[2024-06-11 19:00] LABS: AST 41 U/L (14-36); Alkaline Phosphatase 95 U/L (38-126); Potassium 3.3 mmol/L (3.5-5.1)
--- NOTE | 2024-06-11 19:19 | XR ---
EXAMINATION TYPE: XR chest 1V portable DATE OF EXAM: 06/11/2024 6:40 PM CLINICAL INDICATION:Female, 64 years old with history of abdominal pain; [facility] COMPARISON: Chest radiographs from 05/23/2024 TECHNIQUE: XR chest 1V portable Frontal view of the chest. FINDINGS: Lungs/Pleura: There is no evidence of pleural effusion, focal consolidation, or pneumothorax. Pulmonary vascularity: Unremarkable. Heart/mediastinum: Cardiomediastinal silhouette is unremarkable. Musculoskeletal: No acute osseous pathology. IMPRESSION: No acute cardiopulmonary disease/process.
--- NOTE | 2024-06-11 19:19 | XR ---
EXAMINATION TYPE: XR KUB DATE OF EXAM: 06/11/2024 6:40 PM CLINICAL INDICATION:Female, 64 years old with history of abdominal pain; [facility] COMPARISON: 02/13/2024. TECHNIQUE: One radiographic view of the abdomen was obtained. FINDINGS: The bowel gas pattern is nonspecific without dilated loops of small or large bowel. . Fecal material and gas are demonstrated throughout the colon and rectum. There is no evidence for organomegaly or pneumoperitoneum. The osseous structures are intact. No ab normal calcifications are present. Right upper quadrant cholecystectomy clips. Multilevel degeneratio n changes of the spine. IMPRESSION: Nonspecific bowel gas pattern without radiographic evidence for acute process.
[2024-06-11 20:31] VITALS: BP 153/105; PULSE 92; TEMP 98.1
== END 2024-06-11 20:58 | disposition home or self-care (01) ==
LOC: EC 15:55
DX: R19.7 Diarrhea, unspecified (principal); R11.2 Nausea with vomiting, unspecified; F17.200 Nicotine dependence, unspecified, uncomplicated; Z88.7 Allergy status to serum and vaccine; Z88.5 Allergy status to narcotic agent; Z91.040 Latex allergy status; Z91.018 Allergy to other foods
CPT/HCPCS: 36415; 93005; 80053; 82150; 83690; 84484; 85025; 85610; 85730; 81003; 71045; 74018; 99285; 96374; 96375 ×2; 96361 ×3; 96372; G0480; J2060; J0500; J2405; J3490; 80320

== ENCOUNTER 2024-06-19 18:28 | Emergency (ER) | payer OTHER ==
[2024-06-19] MEDS ORDERED: ASPIRIN 81 MG ONE (19:51)
[2024-06-19] MEDS ORDERED: ACETAMINOPHEN TAB 500 MG TAB ONE (21:19)
[2024-06-19] MEDS ORDERED: SODIUM CHLORIDE 0.9% 500 ML BAG ONE (22:30)
[2024-06-19] MEDS ORDERED: BENZOCAINE/MENTHOL LOZENG 1 EACH LOZENGE MUCOUS MEM ONE (22:30)
[2024-06-19] MEDS ORDERED: NICOTINE 21MG/24HR PATCH TRANSDERM ONE (23:21)
[2024-06-20] MEDS ORDERED: KETOROLAC 15 MG/ML 1 ML VIAL ONE (00:37)
[2024-06-20] MEDS ORDERED: ONDANSETRON 4 MG/2 ML VIAL ONE (03:33)
[2024-06-20] MEDS ORDERED: LORazepam 2 MG/ML INJ ONE (06:53)
[2024-06-20] MEDS ORDERED: chlordiazePOXIDE 25 MG CAP ONE (09:31)
--- NOTE | 2024-07-21 10:31 | CT ---
EXAM: CT Angiography Chest With Intravenous Contrast CLINICAL HISTORY: rule out pe TECHNIQUE: Axial computed tomographic angiography images of the chest with intravenous contrast. CTDI is 23.4 mGy and DLP is 426.9 mGy-cm. This CT exam was performed using one or more of the following dose reduction techniques: automated exposure control, adjustment of the mA and/or kV according to patient size, and/or use of iterative reconstruction technique. MIP reconstructed images were created and reviewed. COMPARISON: No relevant prior studies available. FINDINGS: Pulmonary arteries:Unremarkable. No pulmonary embolism. Aorta:Atherosclerotic changes of the aorta. No thoracic aortic aneurysm. Lungs:Unremarkable. No mass. No consolidation. Pleural space:Unremarkable. No significant effusion. No pneumothorax. Heart:Unremarkable. No cardiomegaly. No significant pericardial effusion. No evidence of RV dysfunction. Bones/joints:Degenerative changes of the spine. No acute fracture. No dislocation. Soft tissues:Unremarkable. Lymph nodes:Unremarkable. No enlarged lymph nodes. Liver:Hepatic cirrhosis. Gallbladder and bile ducts:Cholecystectomy. IMPRESSION: No acute findings in the visualized arteries of the chest. Radiologist: Ramana aCm MD Electronically Signed: 06/20/24 02:45 Study ready at 00:15 and initial results transmitted at 02:45 [facility]
== END 2024-06-20 02:20 | disposition home or self-care (01) ==
LOC: EC 18:28
CPT/HCPCS: 71275; 93005; 96361; 96374; 96375; 99284

== ENCOUNTER 2024-06-22 01:55 | Emergency (ER) | payer OTHER | END 2024-06-22 02:22 | disposition left against medical advice (07) | LOC: EC 01:55 | DX: Z53.21 Procedure and treatment not carried out due to patient leaving prior to being seen by health care provider (principal) | CPT/HCPCS: 99499 ==

== ENCOUNTER 2024-06-22 16:24 | Emergency (ER) | payer OTHER ==
--- NOTE | 2024-07-23 14:06 | XR ---
[id number] EDY BARNES : 1960 EXAM: Frontal and lateral view of the chest. DATE: 06/22/2024 19:57 INDICATION: ETOH/SOB COMPARISON: None, please note PACS downtime occurred during the radiologist interpretation of these i mages with limited priors/reports.. TECHNIQUE: Frontal and lateral views of the chest. . FINDINGS: Lungs/Pleura: There is no evidence of pleural effusion, focal consolidation, or pneumothorax. Pulmonary vascularity: Unremarkable. Heart/mediastinum: Cardiomediastinal silhouette is unremarkable. Musculoskeletal: No acute osseous pathology. Other findings: No significant findings. IMPRESSION: No evidence for acute process
== END 2024-06-22 21:16 | disposition home or self-care (01) ==
LOC: EC 16:24
DX: F10.99 Alcohol use, unspecified with unspecified alcohol-induced disorder (principal)
CPT/HCPCS: 71046; 93005

== ENCOUNTER 2024-06-29 06:13 | Observation (INO) | payer OTHER ==
[~2024-06-29 06:13] MED LIST changes: -ALBUMIN HUMAN 25% 50 ML in EMPTY BAG 1 BAG IVPB SCH; +SODIUM CHLORIDE 0.9% 1,000 ML BAG ONE
[2024-06-29] MEDS ORDERED: MULTIVITAMINS, THERA 1 EACH TAB ONE (08:09)
[2024-06-29] MEDS ORDERED: FLUTICASONE NASAL 50MCG/SPRAY 16GM BTL ONE (08:16)
[2024-06-29] MEDS ORDERED: TICAGRELOR 90 MG TAB ONE (08:16)
[2024-06-29] MEDS ORDERED: BRIMONIDINE TARTRATE 0.2% DROPS 5 ML BTL ONE (08:16)
[2024-06-29] MEDS ORDERED: SODIUM CHLORIDE 0.9% 1,000 ML BAG ONE (08:16)
[2024-06-29] MEDS ORDERED: ONDANSETRON 4 MG/2 ML VIAL ONE ×2 (11:27→17:06)
[2024-06-29] MEDS ORDERED: IBUPROFEN 800 MG TAB ONE (11:38)
[2024-06-29] MEDS ORDERED: LORazepam 2 MG/ML INJ ONE ×3 (12:49→22:52)
[2024-06-29] MEDS ORDERED: amLODIPine 5 MG TAB ONE (13:35)
[2024-06-29] MEDS ORDERED: hydrALAZINE HCL 20 MG/ML 1 ML VIAL ONE ×2 (13:35→15:56)
[2024-06-29] MEDS ORDERED: HYDROcodone/APAP 5-325MG 1 EACH TAB ONE (13:36)
[2024-06-29] MEDS ORDERED: HYDROmorphone 0.5 MG/0.5 ML SYRINGE ONE (13:36)
[2024-06-29] MEDS ORDERED: NICOTINE 21MG/24HR PATCH TRANSDERM ONE (15:56)
[2024-06-29] MEDS ORDERED: IPRATROPIUM-ALBUTEROL 3 ML NEB ONE (16:54)
[2024-06-29] MEDS ORDERED: ATORVASTATIN 20 MG TAB ONE (20:01)
[2024-06-29] MEDS ORDERED: PANTOPRAZOLE 40 MG/10 ML VIAL ONE (20:01)
[2024-06-29] MEDS ORDERED: ISOSORBIDE MONONITRATE ER 30 MG TAB.ER.24H PO ONE (20:02)
[2024-06-29] MEDS ORDERED: METOPROLOL SUCCINATE (ER) 25 MG TAB.ER.24H PO ONE (20:03)
[2024-06-30] MEDS ORDERED: PANTOPRAZOLE 40 MG/10 ML VIAL ONE ×2 (08:39→20:25)
[2024-06-30] MEDS ORDERED: NICOTINE 21MG/24HR PATCH TRANSDERM ONE (08:39)
[2024-06-30] MEDS ORDERED: amLODIPine 10 MG TAB ONE (08:39)
[2024-06-30] MEDS ORDERED: MULTIVITAMINS, THERA 1 EACH TAB ONE (08:40)
[2024-06-30] MEDS ORDERED: FOLIC ACID 1 MG TAB ONE (08:40)
[2024-06-30] MEDS ORDERED: ASPIRIN 81 MG ONE (08:40)
[2024-06-30] MEDS ORDERED: TICAGRELOR 90 MG TAB ONE (09:00)
[2024-06-30] MEDS ORDERED: SODIUM CHLORIDE 0.9% 1,000 ML BAG ONE (09:00)
[2024-06-30] MEDS ORDERED: HYDROcodone/APAP 5-325MG 1 EACH TAB ONE ×2 (13:40→20:27)
[2024-06-30] MEDS ORDERED: ONDANSETRON 4 MG/2 ML VIAL ONE (14:32)
[2024-06-30] MEDS ORDERED: ATORVASTATIN 20 MG TAB ONE (20:25)
[2024-06-30] MEDS ORDERED: ISOSORBIDE MONONITRATE ER 30 MG TAB.ER.24H PO ONE (20:26)
[2024-06-30] MEDS ORDERED: METOPROLOL SUCCINATE (ER) 25 MG TAB.ER.24H PO ONE (20:26)
[2024-06-30] MEDS ORDERED: THIAMINE 100 MG TAB ONE (20:26)
[2024-07-01] MEDS ORDERED: IPRATROPIUM-ALBUTEROL 3 ML NEB ONE (05:42)
[2024-07-01] MEDS ORDERED: NICOTINE 21MG/24HR PATCH TRANSDERM ONE (07:55)
[2024-07-01] MEDS ORDERED: PANTOPRAZOLE 40 MG/10 ML VIAL ONE (07:56)
[2024-07-01] MEDS ORDERED: ASPIRIN 81 MG ONE (07:56)
[2024-07-01] MEDS ORDERED: THIAMINE 100 MG TAB ONE (07:56)
[2024-07-01] MEDS ORDERED: MULTIVITAMINS, THERA 1 EACH TAB ONE (07:56)
[2024-07-01] MEDS ORDERED: amLODIPine 10 MG TAB ONE (07:56)
[2024-07-01] MEDS ORDERED: FOLIC ACID 1 MG TAB ONE (07:57)
[2024-07-01] MEDS ORDERED: TICAGRELOR 90 MG TAB ONE (09:00)
[2024-07-01] MEDS ORDERED: SODIUM CHLORIDE 0.9% 1,000 ML BAG ONE (09:00)
--- NOTE | 2024-08-26 20:20 | XR ---
EXAM: XR Chest, 2 Views CLINICAL HISTORY: sob, jace TECHNIQUE: Frontal and lateral views of the chest. COMPARISON: No relevant prior studies available. FINDINGS: Lungs:Hypoventilation with bibasilar vascular crowding. Pulmonary vessels top normal in caliber. No definite focal pneumonia. Pleural space:No pleural effusion. No pneumothorax. Heart:Borderline cardiomegaly. Mediastinum:Unremarkable. Normal mediastinal contour. Bones/joints:Unremarkable. No acute fracture. IMPRESSION: Hypoventilation with bibasilar vascular crowding. Pulmonary vessels top normal in caliber. No definite focal pneumonia. Radiologist: Ankur Rios M.D. Electronically Signed: 06/29/24 05:56 Study first marked ready to read at 05:26, study last marked ready to read at 05:26, initial results transmitted at [facility]
== END 2024-07-01 17:59 | disposition home or self-care (01) ==
LOC: 4SSUR 06:13 → UNDOADMOB 13:20 → 4SSUR 13:20 → UNDODISOB 07-01 17:59
PROVIDERS: ADMIT Hospitalist; ATTEND Hospitalist
DX: R07.89 Other chest pain (principal); F10.139 Alcohol abuse with withdrawal, unspecified; F10.129 Alcohol abuse with intoxication, unspecified; I25.10 Atherosclerotic heart disease of native coronary artery without angina pectoris; I10 Essential (primary) hypertension; E78.5 Hyperlipidemia, unspecified; J44.9 Chronic obstructive pulmonary disease, unspecified; F17.200 Nicotine dependence, unspecified, uncomplicated; Z79.02 Long term (current) use of antithrombotics/antiplatelets; Z79.82 Long term (current) use of aspirin; Z79.51 Long term (current) use of inhaled steroids; Z79.899 Other long term (current) drug therapy; Z88.5 Allergy status to narcotic agent; Z95.828 Presence of other vascular implants and grafts
CPT/HCPCS: 96376; 96361; 96374; 96375; 99285; 94640 ×6; 97161; 97165; 71046; G0378 ×4; S4990 ×3; J2060; J0360; J2405 ×2; J1170; J2470 ×3

== ENCOUNTER 2024-07-12 15:49 | Emergency (ER) | payer OTHER ==
[2024-07-12 15:59] VITALS: TEMP 97.7
--- NOTE | 2024-07-12 16:36 | ED ---
General Adult HPI - General Chief complaint: Alcohol Stated complaint: ETOH Time Seen by Provider: 07/12/24 15:59 Source: EMS Mode of arrival: EMS - History of Present Illness Initial comments: Dictation was produced using [employer] dictation software. please excuse any grammatical, word or spelling errors. Chief Complaint: 64-year-old female with multiple comorbidities presents to the ER for concerns of stroke History of Present Illness: Patient 64-year-old female she is well-known to emergency department for alcohol intoxication. States she is here today because she states she is having a stroke. Patient states that she was at home when her maintenance amarilis discovered her. Patient states that she is having difficulty talking. She had multiple alcoholic beverages today already along with several alcoholic beverages last night. Patient has no intention of quitting alcohol. The ROS documented in this emergency department record has been reviewed and confirmed by me. Those systems with pertinent positive or negative responses have been documented in the HPI. All other systems are other negative and/or noncontributory. - Related Data Home Medications Medication Instructions Recorded Confirmed Budesonide/Formoterol Fumarate 2 puff INHALATION RT-HS 07/29/23 05/24/24 [Symbicort 160-4.5 Mcg Inhaler] Multivitamin [Multivitamins Adult 2 tab PO HS 12/04/23 05/24/24 Gummies] Pantoprazole [Protonix] 40 mg PO HS 01/02/24 05/24/24 Brimonidine Tartrate [Alphagan P 1 drop BOTH EYES HS 02/02/24 05/24/24 0.2% Ophth Soln] Fluticasone Nasal Kathleen [Flonase 2 spray EA NOSTRIL HS 02/02/24 05/24/24 Nasal Kathleen] Famotidine [Pepcid] 20 mg PO HS 02/19/24 05/24/24 Artificial Tears-Hypromellose 1 drop BOTH EYES TID PRN 03/10/24 05/24/24 [Artificial Tear Drops] Potassium Chloride ER [K-Dur 20] 20 meq PO HS 03/15/24 05/24/24 Cholecalciferol (Vitamin D3) 50 mcg PO HS 05/03/24 05/24/24 [Vitamin D3 (50 Mcg = 2000 Iu)] Ferrous Sulfate [Iron (65 MG 325 mg PO HS 05/03/24 05/24/24 Elemental)] Ipratropium-Albuterol Nebulize 3 ml INHALATION RT-QID PRN 05/24/24 05/24/24 [Duoneb 0.5 mg-3 mg/3 ml Soln] Previous Rx's Medication Instructions Recorded Aspirin EC [Ecotrin Low Dose] 81 mg PO HS #90 tab 05/25/24 Atorvastatin [Lipitor] 80 mg PO HS #90 tab 05/25/24 Isosorbide Mononitrate ER [Imdur] 30 mg PO HS #90 tab 05/25/24 Magnesium Oxide [Mag-Ox] 400 mg PO HS #90 tab 05/25/24 Metoprolol Succinate (ER) [Toprol 50 mg PO HS #90 tab 05/25/24 XL] Ticagrelor [Brilinta] 90 mg PO HS #90 tab 05/25/24 amLODIPine [Norvasc] 5 mg PO DAILY #90 tab 05/25/24 cloNIDine HCL [Catapres] 0.1 mg PO TID #180 tab 05/25/24 Allergies Allergy/AdvReac Type Severity Reaction Status Date / Time Graham And Derivatives Allergy Rash/Hives Verified 07/12/24 15:59 [Graham] latex Allergy Rash/Hives Verified 07/12/24 15:59 cinnamon AdvReac Nausea Verified 07/12/24 15:59 Influenza Virus Vaccines AdvReac Nausea & Verified 07/12/24 15:59 Vomiting morphine AdvReac Nausea & Verified 07/12/24 15:59 Vomiting tomato AdvReac Diarrhea Verified 07/12/24 15:59 Review of Systems ROS Statement: Those systems with pertinent positive or pertinent negative responses have been documented in the HPI. ROS Other: All systems not noted in ROS Statement are negative. Past Medical History Past Medical History: Asthma, Coronary Artery Disease (CAD), COPD, CVA/TIA, Eye Disorder, Hypertension, Liver Disease, Myocardial Infarction ([place]), Seizure Disorder, Vascular Disorder Additional Past Medical History / Comment(s): Pt recently admitted to [facility] for diarrhea, ETOH abuse. 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 soon Last Myocardial Infarction Date:: aug 2018 History of Any Multi-Drug Resistant Organisms: None Reported Past Surgical History: Cholecystectomy, Heart Catheterization, Orthopedic Surgery Additional Past Surgical History / Comment(s): L caratid stent, bilateral knee surgeries for tendon repair, bartholian cyst removed bilateral wrists, cataracts Past Anesthesia/Blood Transfusion Reactions: Motion Sickness Additional Past Anesthesia/Blood Transfusion Reaction / Comment(s): Pt has received blood without reaction. Past Psychological History: Anxiety, Depression Smoking Status: Current every day smoker Past Alcohol Use History: Abuse, Daily, Heavy Past Drug Use History: Marijuana - Past Family History Mother Family Medical History: Cancer, Congestive Heart Failure (CHF), Coronary Artery Disease (CAD), Hyperlipidemia Additional Family Medical History / Comment(s): Mother at age 85 from lung cancer. Father Family Medical History: Cancer, COPD Additional Family Medical History / Comment(s): Father at age 63 from lung cancer. Brother(s) Additional Family Medical History / Comment(s): Patient has a total of 7 siblings. 5 are alive without any major medical problems she is aware of. 2 siblings have one from alcohol abuse and 1. Coronary artery disease. Daughter(s) Family Medical History: No Reported History Additional Family Medical History / Comment(s): Patient has one daughter with no major medical problems. General Exam - General Exam Comments Initial Comments: PHYSICAL EXAM: General Impression: Alert and oriented x3, not in acute distress HEENT: Normocephalic atraumatic, extra-ocular movements intact, pupils equal and reactive to light bilaterally, mucous membranes moist. Cardiovascular: Heart regular rate and rhythm Chest: Able to complete full sentences, no retractions, no tachypnea Abdomen: abdomen soft, non-tender, non-distended, no organomegaly Musculoskeletal: Pulses present and equal in all extremities, no peripheral edema Motor: no focal deficits noted Neurological: CN II-XII grossly intact, no focal motor or sensory deficits noted, she has clear speech with stimulation of her neuropathy Skin: Intact with no visualized rashes Psych: Normal affect and mood Course Vital Signs 07/12/24 07/12/24 15:50 18:51 Temperature 97.7 F Pulse Rate 88 96 Respiratory 20 18 Rate Blood Pressure 125/79 103/78 O2 Sat by Pulse 96 95 Oximetry EKG Findings - EKG Comments: EKG Findings:: My EKG interpretation: Ventricular rate 86, sinus rhythm,. 159, cures 92, QTc 414. No [place] prolongation, no QTC prolongation, no ST or T-wave changes noted. EKG compared to May 23, 2024 showing no changes. Overall, this EKG is unremarkable Medical Decision Making - Medical Decision Making Was pt. sent in by a medical professional or institution (, PA, FOREST OFFICER, urgent care, hospital, or [facility]...) When possible be specific @ -No Did you speak to anyone other than the patient for history (EMS, parent, family, police, friend...)? What history was obtained from this source @ -No Did you review nursing and triage notes (agree or disagree)? Why? @ -I reviewed and agree with nursing and triage notes Were old charts reviewed (outside hosp., previous admission, EMS record, old EKG, old radiological studies, urgent care reports/EKG's, [facility] records)? Report findings @ -No old charts were reviewed Differential Diagnosis (chest pain, altered mental status, abdominal pain women, abdominal pain men, vaginal bleeding, musculoskeletal, weakness, fever, dyspnea, syncope, headache, dizziness, GI bleed, back pain, seizure, CVA, palpatations, mental health)? @ - Differential CVA: Ischemic stroke, hemorrhagic stroke, brain tumor, atypical migraine, Wernicke's encephalopathy, seizure, multiple sclerosis, meningitis, encephalitis, hypoglycemia, Guillain-Ledezma, electrolytes disturbance, myasthenia gravis.... This is not meant to be an all-inclusive list EKG interpreted by me (3pts min.). @ -See above X-rays interpreted by me (1pt min.). @ -None done CT interpreted by me (1pt min.). @ -None done U/S interpreted by me (1pt. min.). @ -None done What testing was considered but not performed or refused? (CT, X-rays, U/S, labs)? Why? @ -None What meds were considered but not given or refused? Why? @ -None Was smoking cessation discussed for >3mins.? @ -No Were there social determinants of health that impacted care today? How? (Home lessness, low income, unemployed, alcoholism, drug addiction, transportation, low edu. Level, literacy, decrease access to med. care, long-term, rehab)? @ -No Was there de-escalation of care discussed even if they declined (Discuss DNR or withdrawal of care, Hospice)? DNR status @ -No What co-morbidities impacted this encounter? (DM, HTN, Smoking, COPD, CAD, Cancer, CVA, ARF, Chemo, Hep., AIDS, mental health diagnosis, sleep apnea, morbid obesity)? @ -None Was patient admitted / discharged? Hospital course, mention meds given and route, prescriptions, significant lab abnormalities, going to OR and other pertinent info. @ -64-year-old female presents to the emergency department for chief complaint of having a stroke. Vital signs stable. Neurologic exam is benign. Patient malingering. She does not seem to have any speech difficulties when she is stimulated. Patient is drunk. Her alcohol level is 295. Rest of labs within acceptable limit. No acidosis. Patient very to be at baseline. He is well- known to the emergency department. Patient appears to be at baseline. I evaluated this patient multiple occasions in the past. Patient will be discharged. Did you discuss the management of the patient with other professionals (professionals i.e. , PA, FOREST OFFICER, lab, RT, psych nurse, geriatric social worker, air tool operator, teacher, retirement officer, complex case manager)? Give summary @ -No Was critical care preformed (if so, how long)? @ -No Undiagnosed new problem with uncertain prognosis? @ -No Drug Therapy requiring intensive monitoring for toxicity (Heparin, Nitro, Insulin, Cardizem)? @ -No Were any procedures done? @ -No Diagnosis/symptom? Acute, or Chronic, or Acute on Chronic? Uncomplicated (without systemic symptoms) or Complicated (systemic symptoms)? @ -Alcohol intoxication Side effects of treatment? @ -No Exacerbation, Progression, or Severe Exacerbation? @ -No Poses a threat to life or bodily function? How? (Chest pain, [place], [place], pneumonia, PE, COPD, DKA, ARF, appy, cholecystitis, CVA, Diverticulitis, Homicidal, Suicidal, threat to staff... and all critical care pts) @ -No - Lab Data Result diagrams: 07/12/24 16:16 07/12/24 16:16 Lab Results 08/31/24 08/31/24 Range/Units 16:16 16:16 WBC 10.3 (3.8-10.6) k/uL RBC 4.48 (3.80-5.40) m/uL Hgb 14.0 (11.4-16.0) gm/dL Hct 41.0 (34.0-46.0) % MCV 91.6 (80.0-100.0) fL MCH 31.3 (25.0-35.0) pg MCHC 34.2 (31.0-37.0) g/dL RDW 20.1 H (11.5-15.5) % Plt Count 290 (150-450) k/uL MPV 7.5 Neutrophils % 69 % Lymphocytes % 23 % Monocytes % 3 % Eosinophils % 1 % Basophils % 1 % Neutrophils # 7.1 (1.3-7.7) k/uL Lymphocytes # 2.3 (1.0-4.8) k/uL Monocytes # 0.3 (0-1.0) k/uL Eosinophils # 0.1 (0-0.7) k/uL Basophils # 0.1 (0-0.2) k/uL Anisocytosis Moderate Sodium 139 (137-145) mmol/L Potassium 4.6 (3.5-5.1) mmol/L Chloride 104 (98-107) mmol/L Carbon Dioxide 22 (22-30) mmol/L Anion Gap 13 mmol/L BUN 12 (7-17) mg/dL Creatinine 0.63 (0.52-1.04) mg/dL Est GFR (CKD-EPI)AfAm >90 (>60 ml/min/1.73 sqM) Est GFR (CKD-EPI)NonAf >90 (>60 ml/min/1.73 sqM) Glucose 99 (74-99) mg/dL Calcium 8.9 (8.4-10.2) mg/dL Serum Alcohol 295 H* mg/dL Disposition Clinical Impression: Alcohol intoxication Disposition: HOME SELF-CARE Condition: Good Instructions (If sedation given, give patient instructions): Alcohol Intoxication (ED) Is patient prescribed a controlled substance at d/c from ED?: No Referrals: None,Stated [Primary Care Provider] - 1-2 days Time of Disposition: 18:56
[2024-07-12 17:09] LABS: Anisocytosis Moderate; Basophils # (A) 0.1 k/uL (0-0.2); Basophils % (A) 1 %; Eosinophils # (A) 0.1 k/uL (0-0.7); Eosinophils % (A) 1 %; Lymphocytes # (A) 2.3 k/uL (1.0-4.8); Lymphocytes % (A) 23 %; MCH 31.3 pg (25.0-35.0); MCHC 34.2 g/dL (31.0-37.0); MCV 91.6 fL (80.0-100.0); Mean Platelet Volume 7.5; Monocytes # (A) 0.3 k/uL (0-1.0); Monocytes % (A) 3 %; Neutrophils # (A) 7.1 k/uL (1.3-7.7); Neutrophils % (A) 69 %; Platelet Count 290 k/uL (150-450); RBC 4.48 m/uL (3.80-5.40); RDW 20.1 % (11.5-15.5); WBC 10.3 k/uL (3.8-10.6)
[2024-07-12 17:32] LABS: African American GFR (CKD) >90 (>60 ml/min/1.73 sqM); Anion Gap 13 mmol/L; Blood Urea Nitrogen 12 mg/dL (7-17); Calcium 8.9 mg/dL (8.4-10.2); Carbon Dioxide 22 mmol/L (22-30); Chloride 104 mmol/L (98-107); Glucose 99 mg/dL (74-99); Non-African American GFR(CKD) >90 (>60 ml/min/1.73 sqM); Sodium 139 mmol/L (137-145)
[2024-07-12 17:39] LABS: Alcohol 295 mg/dL; Potassium 4.6 mmol/L (3.5-5.1)
[2024-07-12 18:54] VITALS: RESP 18
[2024-07-12 19:36] VITALS: BP 114/72; PULSE 92
== END 2024-07-12 19:36 | disposition home or self-care (01) ==
LOC: EC 15:49
DX: F10.929 Alcohol use, unspecified with intoxication, unspecified
CPT/HCPCS: 36415; 80048; 80320; 85025; 93005; 99284

== ENCOUNTER 2024-07-30 17:52 | Emergency (ER) | payer OTHER ==
[2024-07-30 18:11] VITALS: TEMP 97
--- NOTE | 2024-07-30 18:38 | ED ---
General Adult HPI - General Chief complaint: Extremity Problem,Nontraumatic Stated complaint: chest pain Time Seen by Provider: 07/30/24 18:06 Source: patient, EMS, RN notes reviewed Mode of arrival: EMS - History of Present Illness Initial comments: 64-year-old female presents emergency department via EMS for chief complaint of chest pain alcohol intoxication. Patient is very well-known to this emergency department. She states that she is having intermittent chest pain and heart palpitations. Additionally she states that she drank a few shots today and a couple beers. Currently she is endorsing mild nausea as well as chest pain feels like her heart is racing. - Related Data Home Medications Medication Instructions Recorded Confirmed Budesonide/Formoterol Fumarate 2 puff INHALATION RT-HS 07/29/23 05/24/24 [Symbicort 160-4.5 Mcg Inhaler] Multivitamin [Multivitamins Adult 2 tab PO HS 12/04/23 05/24/24 Gummies] Pantoprazole [Protonix] 40 mg PO HS 01/02/24 05/24/24 Brimonidine Tartrate [Alphagan P 1 drop BOTH EYES HS 02/02/24 05/24/24 0.2% Ophth Soln] Fluticasone Nasal [place] [Flonase 2 spray EA NOSTRIL HS 02/02/24 05/24/24 Nasal [place]] Famotidine [Pepcid] 20 mg PO HS 02/19/24 05/24/24 Artificial Tears-Hypromellose 1 drop BOTH EYES TID PRN 03/10/24 05/24/24 [Artificial Tear Drops] Potassium Chloride ER [K-Dur 20] 20 meq PO HS 03/15/24 05/24/24 Cholecalciferol (Vitamin D3) 50 mcg PO HS 05/03/24 05/24/24 [Vitamin D3 (50 Mcg = 2000 Iu)] Ferrous Sulfate [Iron (65 MG 325 mg PO HS 05/03/24 05/24/24 Elemental)] Ipratropium-Albuterol Nebulize 3 ml INHALATION RT-QID PRN 05/24/24 05/24/24 [Duoneb 0.5 mg-3 mg/3 ml Soln] Previous Rx's Medication Instructions Recorded Aspirin EC [Ecotrin Low Dose] 81 mg PO HS #90 tab 07/14/24 Atorvastatin [Lipitor] 80 mg PO HS #90 tab 05/25/24 Isosorbide Mononitrate ER [Imdur] 30 mg PO HS #90 tab 05/25/24 Magnesium Oxide [Mag-Ox] 400 mg PO HS #90 tab 05/25/24 Metoprolol Succinate (ER) [Toprol 50 mg PO HS #90 tab 05/25/24 XL] Ticagrelor [Brilinta] 90 mg PO HS #90 tab 05/25/24 amLODIPine [Norvasc] 5 mg PO DAILY #90 tab 05/25/24 cloNIDine HCL [Catapres] 0.1 mg PO TID #180 tab 05/25/24 Allergies Allergy/AdvReac Type Severity Reaction Status Date / Time Hendricks And Derivatives Allergy Rash/Hives Verified 07/30/24 18:11 [Hendricks] latex Allergy Rash/Hives Verified 07/30/24 18:11 cinnamon AdvReac Nausea Verified 07/30/24 18:11 Influenza Virus Vaccines AdvReac Nausea & Verified 07/30/24 18:11 Vomiting morphine AdvReac Nausea & Verified 07/30/24 18:11 Vomiting tomato AdvReac Diarrhea Verified 07/30/24 18:11 Review of Systems ROS Statement: Those systems with pertinent positive or pertinent negative responses have been documented in the HPI. ROS Other: All systems not noted in ROS Statement are negative. Past Medical History Past Medical History: Asthma, Coronary Artery Disease (CAD), COPD, CVA/TIA, Eye Disorder, Hypertension, Liver Disease, Myocardial Infarction (SD), Seizure Disorder, Vascular Disorder Additional Past Medical History / Comment(s): Pt recently admitted to [facility] for diarrhea, ETOH abuse. 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 soon Last Myocardial Infarction Date:: aug 2018 History of Any Multi-Drug Resistant Organisms: None Reported Past Surgical History: Cholecystectomy, Heart Catheterization, Orthopedic Surgery Additional Past Surgical History / Comment(s): L caratid stent, bilateral knee surgeries for tendon repair, bartholian cyst removed bilateral wrists, cataracts Past Anesthesia/Blood Transfusion Reactions: Motion Sickness Additional Past Anesthesia/Blood Transfusion Reaction / Comment(s): Pt has received blood without reaction. Past Psychological History: Anxiety, Depression Smoking Status: Current every day smoker Past Alcohol Use History: Abuse, Daily, Heavy Past Drug Use History: Marijuana - Past Family History Mother Family Medical History: Cancer, Congestive Heart Failure (CHF), Coronary Artery Disease (CAD), Hyperlipidemia Additional Family Medical History / Comment(s): Mother at age 85 from lung cancer. Father Family Medical History: Cancer, COPD Additional Family Medical History / Comment(s): Father at age 63 from lung cancer. Brother(s) Additional Family Medical History / Comment(s): Patient has a total of 7 siblings. 5 are alive without any major medical problems she is aware of. 2 siblings have one from alcohol abuse and 1. Coronary artery disease. Daughter(s) Family Medical History: No Reported History Additional Family Medical History / Comment(s): Patient has one daughter with no major medical problems. General Exam General appearance: alert, in no apparent distress, appears intoxicated Head exam: Present: atraumatic, normocephalic, normal inspection Eye exam: Present: normal appearance, PERRL, EOMI. Absent: scleral icterus, conjunctival injection, periorbital swelling ENT exam: Present: normal exam, mucous membranes moist Neck exam: Present: normal inspection. Absent: tenderness, meningismus, lymphadenopathy Respiratory exam: Present: normal lung sounds bilaterally. Absent: respiratory distress, wheezes, rales, rhonchi, stridor Cardiovascular Exam: Present: regular rate, normal rhythm, normal heart sounds. Absent: systolic murmur, diastolic murmur, rubs, gallop, clicks GI/Abdominal exam: Present: soft, normal bowel sounds. Absent: distended, tenderness, guarding, rebound, rigid Extremities exam: Present: normal inspection, full ROM, normal capillary refill. Absent: tenderness, pedal edema, joint swelling, calf tenderness Neurological exam: Present: alert, oriented X3, CN II-XII intact Skin exam: Present: warm, dry, intact, normal color. Absent: rash Course Vital Signs 07/30/24 07/30/24 07/30/24 18:04 20:30 21:06 Temperature 97.0 F L Pulse Rate 90 89 90 Respiratory 20 20 18 Rate Blood Pressure 138/97 135/90 137/98 O2 Sat by Pulse 95 95 98 Oximetry Medical Decision Making - Medical Decision Making Was pt. sent in by a medical professional or institution (YESSY Lloyd, COMMUNICATIONS DEPARTMENT HEAD, urgent care, hospital, or retirement...) When possible be specific @ -No Did you speak to anyone other than the patient for history (EMS, parent, family, police, friend...)? What history was obtained from this source @ -No Did you review nursing and triage notes (agree or disagree)? Why? @ -I reviewed and agree with nursing and triage notes Were old charts reviewed (outside hosp., previous admission, EMS record, old EKG, old radiological studies, urgent care reports/EKG's, retirement records)? Report findings @ -I reviewed the patient's previous emergency department visit note where she presented for alcohol intoxication was discharged home in stable condition Differential Diagnosis (chest pain, altered mental status, abdominal pain women, abdominal pain men, vaginal bleeding, weakness, fever, dyspnea, syncope, headache, dizziness, GI bleed, back pain, seizure, CVA, palpatations, mental health, musculoskeletal)? @ -Differential Chest Pain: Stable Angina, Unstable Angina, STEMI, NSTEMI Aortic Dissection, Pneumothorax, Musculoskeletal, Esophageal Spasm GERD, Cholecystitis, Pancreatitis, Zoster, this is not meant to be an all-inclusive list. EKG interpreted by me (3pts min.). @ -Completed at 1834 sinus rhythm with a ventricular rate of 96, [place] interval 152, QTc 435. No acute signs of ischemia. X-rays interpreted by me (1pt min.). @ -None done CT interpreted by me (1pt min.). @ -None done U/S interpreted by me (1pt. min.). @ -None done What testing was considered but not performed or refused? (CT, X-rays, U/S, labs)? Why? @ -None What meds were considered but not given or refused? Why? @ -None Did you discuss the management of the patient with other professionals (professionals i.e. YESSY Lloyd, COMMUNICATIONS DEPARTMENT HEAD, lab, RT, psych nurse, social services technician, sql developer dba, teacher, identification officer, continuous pillowcase cutter)? Give summary @ -No Was smoking cessation discussed for >3mins.? @ -No Was critical care preformed (if so, how long)? @ -No Were there social determinants of health that impacted care today? How? (Homelessness, low income, unemployed, alcoholism, drug addiction, transp ortation, low edu. Level, literacy, decrease access to med. care, nursing home, rehab)? @ -No Was there de-escalation of care discussed even if they declined (Discuss DNR or withdrawal of care, Hospice)? DNR status @ -No What co-morbidities impacted this encounter? (DM, HTN, Smoking, COPD, CAD, Cancer, CVA, ARF, Chemo, Hep., AIDS, mental health diagnosis, sleep apnea, morbid obesity)? @ -None Was patient admitted / discharged? Hospital course, mention meds given and route, prescriptions, significant lab abnormalities, going to OR and other pertinent info. @ -Discharge. 64-year-old female with alcohol intoxication and chest pain. Patient's EKG reveals sinus rhythm. Blood pressure, heart rate and O2 stat within normal limits. Neurological examination no acute findings. CBC and CMP grossly unremarkable, troponin nonelevated less than 0.02, BNP 914. Serum alcohol elevated at 278. Reviewed laboratory results with the patient she states that she is trying to cut back on alcohol. This time patient was monitored and reevaluated and is safe for discharge home. All questions answered at bedside strict return prior discussed with patient and she has verbalized understanding. discussed with Dr. Motley Undiagnosed new problem with uncertain prognosis? @ -No Drug Therapy requiring intensive monitoring for toxicity (Heparin, Nitro, Insulin, Cardizem)? @ -No Were any procedures done? @ -No Diagnosis/symptom? @ -alcohol intoxication, chest pain Acute, or Chronic, or Acute on Chronic? @ -Acute Uncomplicated (without systemic symptoms) or Complicated (systemic symptoms)? @ -uncomplicated Side effects of treatment? @ -No Exacerbation, Progression, or Severe Exacerbation? @ -No Poses a threat to life or bodily function? How? (Chest pain, USA, SD, pneumonia, PE, COPD, DKA, ARF, appy, cholecystitis, CVA, Diverticulitis, Homicidal, Suicidal, threat to staff... and all critical care pts) @ -No - Lab Data Result diagrams: 07/30/24 19:23 07/30/24 19:23 Lab Results 07/30/24 07/30/24 07/30/24 Range/Units 19:23 19:23 19:23 WBC 7.6 (3.8-10.6) k/uL RBC 4.19 (3.80-5.40) m/uL Hgb 12.7 (11.4-16.0) gm/dL Hct 39.0 (34.0-46.0) % MCV 92.9 (80.0-100.0) fL MCH 30.3 (25.0-35.0) pg MCHC 32.7 (31.0-37.0) g/dL RDW 17.6 H (11.5-15.5) % Plt Count 116 L D (150-450) k/uL MPV 7.7 Neutrophils % 69 % Lymphocytes % 21 % Monocytes % 4 % Eosinophils % 2 % Basophils % 1 % Neutrophils # 5.3 (1.3-7.7) k/uL Lymphocytes # 1.6 (1.0-4.8) k/uL Monocytes # 0.3 (0-1.0) k/uL Eosinophils # 0.2 (0-0.7) k/uL Basophils # 0.1 (0-0.2) k/uL Anisocytosis Slight Sodium 134 L (137-145) mmol/L Potassium 3.3 L (3.5-5.1) mmol/L Chloride 99 (98-107) mmol/L Carbon Dioxide 21 L (22-30) mmol/L Anion Gap 14 mmol/L BUN 4 L (7-17) mg/dL Creatinine 0.48 L (0.52-1.04) mg/dL Est GFR (CKD-EPI)AfAm >90 (>60 ml/min/1.73 sqM) Est GFR (CKD-EPI)NonAf >90 (>60 ml/min/1.73 sqM) Glucose 98 (74-99) mg/dL Calcium 8.9 (8.4-10.2) mg/dL Magnesium 1.6 (1.6-2.3) mg/dL Total Bilirubin 0.5 (0.2-1.3) mg/dL AST 40 H (14-36) U/L ALT 23 (4-34) U/L Alkaline Phosphatase 124 (38-126) U/L Troponin I <0.012 (0.000-0.034) ng/mL NT-Pro-B Natriuret Pep 914 pg/mL Total Protein 6.5 (6.3-8.2) g/dL Albumin 4.0 (3.5-5.0) g/dL Lipase 76 (23-300) U/L Serum Alcohol 278 H* mg/dL Disposition Clinical Impression: Alcohol intoxication, Alcohol abuse Disposition: HOME SELF-CARE Condition: Stable Instructions (If sedation given, give patient instructions): Abuse of Alcohol (ED) Additional Instructions: Return to the emergency department for any new or worsening symptoms. Is patient prescribed a controlled substance at d/c from ED?: No Referrals: None,Stated [Primary Care Provider] - 1-2 days Time of Disposition: 20:43
[2024-07-30 19:32] LABS: Anisocytosis Slight; Basophils # (A) 0.1 k/uL (0-0.2); Basophils % (A) 1 %; Eosinophils # (A) 0.2 k/uL (0-0.7); Eosinophils % (A) 2 %; HGB 12.7 gm/dL (11.4-16.0); Lymphocytes # (A) 1.6 k/uL (1.0-4.8); Lymphocytes % (A) 21 %; MCH 30.3 pg (25.0-35.0); MCHC 32.7 g/dL (31.0-37.0); MCV 92.9 fL (80.0-100.0); Mean Platelet Volume 7.7; Monocytes # (A) 0.3 k/uL (0-1.0); Monocytes % (A) 4 %; Neutrophils # (A) 5.3 k/uL (1.3-7.7); Neutrophils % (A) 69 %; RBC 4.19 m/uL (3.80-5.40); RDW 17.6 % (11.5-15.5); WBC 7.6 k/uL (3.8-10.6)
[2024-07-30] MEDS: ONDANSETRON 4 MG/2 ML VIAL IVP STA (19:34)
[2024-07-30 19:41] LABS: ALT 23 U/L (4-34); AST 40 U/L (14-36); African American GFR (CKD) >90 (>60 ml/min/1.73 sqM); Alkaline Phosphatase 124 U/L (38-126); Anion Gap 14 mmol/L; Blood Urea Nitrogen 4 mg/dL (7-17); Calcium 8.9 mg/dL (8.4-10.2); Carbon Dioxide 21 mmol/L (22-30); Chloride 99 mmol/L (98-107); Glucose 98 mg/dL (74-99); Lipase 76 U/L (23-300); Magnesium 1.6 mg/dL (1.6-2.3); Non-African American GFR(CKD) >90 (>60 ml/min/1.73 sqM); Potassium 3.3 mmol/L (3.5-5.1); Sodium 134 mmol/L (137-145); Total Bilirubin 0.5 mg/dL (0.2-1.3); Total Protein 6.5 g/dL (6.3-8.2)
[2024-07-30 19:49] LABS: NT-Pro-B-Type Natriuretic Pept 914 pg/mL
[2024-07-30 20:00] LABS: Platelet Count 116 k/uL (150-450)
[2024-07-30 20:01] LABS: Alcohol 278 mg/dL
[2024-07-30] MEDS: IBUPROFEN 800 MG TAB PO STA (20:52)
[2024-07-30 21:08] VITALS: BP 137/98; PULSE 90; RESP 18
== END 2024-07-30 21:08 | disposition home or self-care (01) ==
LOC: EC 17:52
CPT/HCPCS: 80053; 80320; 83690; 83735; 83880; 84484; 85025; 93005; 96374; 99283

== ENCOUNTER 2024-07-31 16:08 | Emergency (ER) | payer OTHER ==
--- NOTE | 2024-07-31 17:06 | CT ---
EXAMINATION TYPE: CT brain cspine wo con CT DLP: 1402.8 mGycm, Automated exposure control for dose reduction was used. DATE OF EXAM: 07/31/2024 4:41 PM COMPARISON: None. CLINICAL INDICATION: Female, 64 years old with history of fall; Fall, head and neck pain TECHNIQUE: Brain: Multiple axial CT images of the brain were obtained without IV contrast. Cspine: Axial CT images from the skull base to the inferior aspect of T2 we obtained without intraven ous contrast. Coronal and sagittal reformatted images were also reviewed. . FINDINGS: Brain: Extra-axial spaces: No abnormal extra-axial fluid collections. Ventricular system: Within normal limits higher attenuating: Cyst measuring 13 mm at the foramen of M onroe No evidence for obstructive uropathy. Cerebral parenchyma: Encephalomalacia the left parietal/occipital region from prior injury. As well a s the left frontal lobe. No acute intraparenchymal hemorrhage or mass effect. The diamond-white junctio n is well differentiated. Cerebellum: Unremarkable. Mass effect: No evidence of midline shift. Intracranial vasculature: unremarkable Soft tissues: Normal. Calvarium/osseous structures: No depressed skull fracture. Paranasal sinuses and mastoid air cells: Clear. Visualized orbits: Bilateral aphakia Cervical spine: Fracture: None. Osseous structures: Multilevel degenerative disc disease changes with endplate spurring and disc oste ophyte complex's. Vertebral alignment: Within normal limits. Spinal canal/Neural Foramina: No evidence of significant spinal canal narrowing. No evidence for sign ificant neural foraminal stenosis. Neck soft tissues: Prevertebral soft tissues are within normal limits. Other: The airway is patent. The lung apices are clear. Left carotid bifurcation stent grafts. Athero sclerosis at the carotid bifurcations. IMPRESSION: 1. No acute intracranial process. 2. Remote injury to the left parietal and left frontal lobes with encephalomalacia. 3. No evidence of cervical spine fracture. 4. Mild multilevel degenerative disc disease. 5. Colloid cyst near the foramen of Monro measuring 13 mm. 03/10/2024 neurosurgical consultation sumi ins recommended. [facility], , 07/31/2024 5:03 PM
--- NOTE | 2024-07-31 17:22 | ED ---
General Adult HPI - General Chief complaint: Fall Stated complaint: fall Time Seen by Provider: 07/31/24 16:11 Source: patient, EMS, RN notes reviewed, old records reviewed Mode of arrival: EMS Limitations: no limitations - History of Present Illness Initial comments: 64-year-old female presenting for evaluation of head injury. Patient admits to alcohol consumption. She states she tripped fell backwards striking her head on her refrigerator. She denies loss consciousness. She denies any extremity injury, no chest or abdominal pain. Patient is intoxicated at the time my initial evaluation. - Related Data Home Medications Medication Instructions Recorded Confirmed Budesonide/Formoterol Fumarate 2 puff INHALATION RT-HS 07/29/23 05/24/24 [Symbicort 160-4.5 Mcg Inhaler] Multivitamin [Multivitamins Adult 2 tab PO HS 12/04/23 05/24/24 Gummies] Pantoprazole [Protonix] 40 mg PO HS 01/02/24 05/24/24 Brimonidine Tartrate [Alphagan P 1 drop BOTH EYES HS 02/02/24 05/24/24 0.2% Ophth Soln] Fluticasone Nasal [place] [Flonase 2 spray EA NOSTRIL HS 02/02/24 05/24/24 Nasal [place]] Famotidine [Pepcid] 20 mg PO HS 02/19/24 05/24/24 Artificial Tears-Hypromellose 1 drop BOTH EYES TID PRN 03/10/24 05/24/24 [Artificial Tear Drops] Potassium Chloride ER [K-Dur 20] 20 meq PO HS 03/15/24 05/24/24 Cholecalciferol (Vitamin D3) 50 mcg PO HS 05/03/24 05/24/24 [Vitamin D3 (50 Mcg = 2000 Iu)] Ferrous Sulfate [Iron (65 MG 325 mg PO HS 05/03/24 05/24/24 Elemental)] Ipratropium-Albuterol Nebulize 3 ml INHALATION RT-QID PRN 05/24/24 05/24/24 [Duoneb 0.5 mg-3 mg/3 ml Soln] Previous Rx's Medication Instructions Recorded Aspirin EC [Ecotrin Low Dose] 81 mg PO HS #90 tab 05/25/24 Atorvastatin [Lipitor] 80 mg PO HS #90 tab 07/14/24 Isosorbide Mononitrate ER [Imdur] 30 mg PO HS #90 tab 05/25/24 Magnesium Oxide [Mag-Ox] 400 mg PO HS #90 tab 05/25/24 Metoprolol Succinate (ER) [Toprol 50 mg PO HS #90 tab 05/25/24 XL] Ticagrelor [Brilinta] 90 mg PO HS #90 tab 05/25/24 amLODIPine [Norvasc] 5 mg PO DAILY #90 tab 05/25/24 cloNIDine HCL [Catapres] 0.1 mg PO TID #180 tab 05/25/24 Allergies Allergy/AdvReac Type Severity Reaction Status Date / Time Friendship And Derivatives Allergy Rash/Hives Verified 07/30/24 18:11 [Friendship] latex Allergy Rash/Hives Verified 07/30/24 18:11 cinnamon AdvReac Nausea Verified 07/30/24 18:11 Influenza Virus Vaccines AdvReac Nausea & Verified 07/30/24 18:11 Vomiting morphine AdvReac Nausea & Verified 07/30/24 18:11 Vomiting tomato AdvReac Diarrhea Verified 07/30/24 18:11 Review of Systems ROS Statement: Those systems with pertinent positive or pertinent negative responses have been documented in the HPI. ROS Other: All systems not noted in ROS Statement are negative. Past Medical History Past Medical History: Asthma, Coronary Artery Disease (CAD), COPD, CVA/TIA, Eye Disorder, Hypertension, Liver Disease, Myocardial Infarction (ND), Seizure Disorder, Vascular Disorder Additional Past Medical History / Comment(s): Pt recently admitted to [facility] for diarrhea, ETOH abuse. 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 soon Last Myocardial Infarction Date:: aug 2018 History of Any Multi-Drug Resistant Organisms: None Reported Past Surgical History: Cholecystectomy, Heart Catheterization, Orthopedic Surg erinn Additional Past Surgical History / Comment(s): L caratid stent, bilateral knee surgeries for tendon repair, bartholian cyst removed bilateral wrists, cataracts Past Anesthesia/Blood Transfusion Reactions: Motion Sickness Additional Past Anesthesia/Blood Transfusion Reaction / Comment(s): Pt has received blood without reaction. Past Psychological History: Anxiety, Depression Smoking Status: Current every day smoker Past Alcohol Use History: Abuse, Daily, Heavy Past Drug Use History: Marijuana - Past Family History Mother Family Medical History: Cancer, Congestive Heart Failure (CHF), Coronary Artery Disease (CAD), Hyperlipidemia Additional Family Medical History / Comment(s): Mother at age 85 from lung cancer. Father Family Medical History: Cancer, COPD Additional Family Medical History / Comment(s): Father at age 63 from lung cancer. Brother(s) Additional Family Medical History / Comment(s): Patient has a total of 7 siblings. 5 are alive without any major medical problems she is aware of. 2 siblings have one from alcohol abuse and 1. Coronary artery disease. Daughter(s) Family Medical History: No Reported History Additional Family Medical History / Comment(s): Patient has one daughter with no major medical problems. General Exam Limitations: no limitations General appearance: alert, in no apparent distress, appears intoxicated Head exam: Present: atraumatic, normocephalic Eye exam: Present: normal appearance, PERRL ENT exam: Present: normal exam Neck exam: Present: other (Collar placed by paramedics) Respiratory exam: Present: normal lung sounds bilaterally. Absent: respiratory distress, wheezes Cardiovascular Exam: Present: regular rate, normal rhythm GI/Abdominal exam: Present: soft. Absent: distended, tenderness, guarding Extremities exam: Present: normal inspection, normal capillary refill Neurological exam: Present: alert, oriented X3, CN II-XII intact. Absent: motor sensory deficit Psychiatric exam: Present: normal affect, normal mood Skin exam: Present: warm, dry, intact Course Vital Signs 07/31/24 16:11 Temperature 97.8 F Pulse Rate 86 Respiratory 18 Rate Blood Pressure 97/77 O2 Sat by Pulse 90 L Oximetry Medical Decision Making - Medical Decision Making Was pt. sent in by a medical professional or institution (YESSY Lloyd, LANG INTERPRETER, urgent care, hospital, or long term...) When possible be specific @ -No Did you speak to anyone other than the patient for history (EMS, parent, family, police, friend...)? What history was obtained from this source @ -No Did you review nursing and triage notes (agree or disagree)? Why? @ -I reviewed and agree with nursing and triage notes Were old charts reviewed (outside hosp., previous admission, EMS record, old EKG, old radiological studies, urgent care reports/EKG's, long term records)? Report findings @ -No old charts were reviewed Differential Diagnosis: Traumatic brain injury, intracranial hemorrhage, cervical fracture or subluxation EKG interpreted by me (3pts min.). @Sinus rhythm rate of 82, [place] interval 154, QRS duration 98, QTc 444 X-rays interpreted by me (1pt min.). @ -None done CT interpreted by me (1pt min.). @ -CT brain and cervical spine negative for acute traumatic injury, no intracranial hemorrhage or mass effect, no cervical fracture or subluxation. U/S interpreted by me (1pt. min.). @ -None done What testing was considered but not performed or refused? (CT, X-rays, U/S, labs)? Why? @ -None What meds were considered but not given or refused? Why? @ -None Did you discuss the management of the patient with other professionals (professionals i.e. , PA, LANG INTERPRETER, lab, RT, psych nurse, social scientist, assistant curator, teacher, corporate banking officer, dependency case manager)? Give summary @ -No Was smoking cessation discussed for >3mins.? @ -No Was critical care preformed (if so, how long)? @ -No Were there social determinants of health that impacted care today? How? (Homelessness, low income, unemployed, alcoholism, drug addiction, transportation, low edu. Level, literacy, decrease access to med. care, correction, rehab)? @ -No Was there de-escalation of care discussed even if they declined (Discuss DNR or withdrawal of care, Hospice)? DNR status @ -No What co-morbidities impacted this encounter? (DM, HTN, Smoking, COPD, CAD, Cancer, CVA, ARF, Chemo, Hep., AIDS, mental health diagnosis, sleep apnea, morbid obesity)? @ -Alcohol abuse Was patient admitted / discharged? Hospital course, mention meds given and route, prescriptions, significant lab abnormalities, going to OR and other pertinent info. @ -64-year-old female presents with alcohol tox occasion, fall and head injury. Patient head CT is negative for intracranial hemorrhage or mass effect. Patient observed in the emergency department. Monitored until clinically sober, stable for discharge Undiagnosed new problem with uncertain prognosis? @ -No Drug Therapy requiring intensive monitoring for toxicity (Heparin, Nitro, Insulin, Cardizem)? @ -No Were any procedures done? @ -No Diagnosis/symptom? @ -Fall, head injury alcohol intoxication Acute, or Chronic, or Acute on Chronic? @Acute Uncomplicated (without systemic symptoms) or Complicated (systemic symptoms)? @ -Default Side effects of treatment? @ -No Exacerbation, Progression, or Severe Exacerbation? @ -No Poses a threat to life or bodily function? How? (Chest pain, USA, ND, pneumonia, PE, COPD, DKA, ARF, appy, cholecystitis, CVA, Diverticulitis, Homicidal, Suicidal, threat to staff... and all critical care pts) @ -Yes, alcohol abuse Disposition Clinical Impression: Alcohol intoxication, Fall Disposition: HOME SELF-CARE Condition: Fair Instructions (If sedation given, give patient instructions): Concussion (ED), Fall Prevention for Older Adults (ED) Is patient prescribed a controlled substance at d/c from ED?: No Referrals: None,Stated [Primary Care Provider] - 1-2 days Mian Recio, [REFERRING] - 1-2 days Time of Disposition: 19:30
[2024-07-31 19:33] VITALS: BP 121/81; PULSE 94; RESP 17; TEMP 97.7
== END 2024-07-31 19:33 | disposition home or self-care (01) ==
LOC: EC 16:08
CPT/HCPCS: 70450; 72125; 93005; 99284

== ENCOUNTER 2024-08-02 13:33 | Emergency (ER) | payer OTHER ==
[2024-08-02 13:41] VITALS: BP 119/82; PULSE 85; RESP 18; TEMP 98.5
--- NOTE | 2024-08-02 14:21 | XR ---
EXAMINATION TYPE: XR chest 2V DATE OF EXAM: 08/02/2024 2:09 PM CLINICAL INDICATION: Female, 64 years old with history of Chest Pain; [facility] COMPARISON: Chest radiographs from 06/29/2024 TECHNIQUE: XR chest 2V Frontal view of the chest. FINDINGS: Lungs/Pleura: There is no evidence of pleural effusion, focal consolidation, or pneumothorax. Pulmonary vascularity: Unremarkable. Heart/mediastinum: Cardiomediastinal silhouette is unremarkable. Musculoskeletal: No acute osseous pathology. IMPRESSION: No acute cardiopulmonary disease/process. [facility], , 08/02/2024 2:18 PM
[2024-08-02 14:46] LABS: Anisocytosis Slight; Basophils # (A) 0.1 k/uL (0-0.2); Basophils % (A) 1 %; Eosinophils # (A) 0.1 k/uL (0-0.7); Eosinophils % (A) 1 %; HCT 42.2 % (34.0-46.0); HGB 14.2 gm/dL (11.4-16.0); Lymphocytes # (A) 1.4 k/uL (1.0-4.8); Lymphocytes % (A) 21 %; MCH 31.2 pg (25.0-35.0); MCHC 33.6 g/dL (31.0-37.0); MCV 92.7 fL (80.0-100.0); Mean Platelet Volume 7.5; Monocytes # (A) 0.1 k/uL (0-1.0); Monocytes % (A) 2 %; Neutrophils # (A) 4.9 k/uL (1.3-7.7); Neutrophils % (A) 73 %; Platelet Count 126 k/uL (150-450); RBC 4.55 m/uL (3.80-5.40); RDW 17.9 % (11.5-15.5); WBC 6.7 k/uL (3.8-10.6)
--- NOTE | 2024-08-02 15:01 | ED ---
General Adult HPI - General Chief complaint: Chest Pain Stated complaint: Chest Pain Time Seen by Provider: 08/02/24 13:35 Source: patient, EMS, RN notes reviewed Mode of arrival: EMS Limitations: no limitations - History of Present Illness Initial comments: 64-year-old female presents emerged part via EMS chief complaint pain. Patient states she has some tailbone pain from prior following which she was evaluated for. She also states she had an episode of chest pain overnight around midnight. She does not have current complaints of chest pain. Denies any nausea vomiting patient is known alcoholic states that she did drink a few beers today. Patient denies fevers or chills no shortness of breath no focal weakness. - Related Data Home Medications Medication Instructions Recorded Confirmed Budesonide/Formoterol Fumarate 2 puff INHALATION RT-HS 07/29/23 05/24/24 [Symbicort 160-4.5 Mcg Inhaler] Multivitamin [Multivitamins Adult 2 tab PO HS 12/04/23 05/24/24 Gummies] Pantoprazole [Protonix] 40 mg PO HS 01/02/24 05/24/24 Brimonidine Tartrate [Alphagan P 1 drop BOTH EYES HS 02/02/24 05/24/24 0.2% Ophth Soln] Fluticasone Nasal [place] [Flonase 2 spray EA NOSTRIL HS 02/02/24 05/24/24 Nasal [place]] Famotidine [Pepcid] 20 mg PO HS 02/19/24 05/24/24 Artificial Tears-Hypromellose 1 drop BOTH EYES TID PRN 03/10/24 05/24/24 [Artificial Tear Drops] Potassium Chloride ER [K-Dur 20] 20 meq PO HS 03/15/24 05/24/24 Cholecalciferol (Vitamin D3) 50 mcg PO HS 05/03/24 05/24/24 [Vitamin D3 (50 Mcg = 2000 Iu)] Ferrous Sulfate [Iron (65 MG 325 mg PO HS 05/03/24 05/24/24 Elemental)] Ipratropium-Albuterol Nebulize 3 ml INHALATION RT-QID PRN 05/24/24 05/24/24 [Duoneb 0.5 mg-3 mg/3 ml Soln] Previous Rx's Medication Instructions Recorded Aspirin EC [Ecotrin Low Dose] 81 mg PO HS #90 tab 05/25/24 Atorvastatin [Lipitor] 80 mg PO HS #90 tab 05/25/24 Isosorbide Mononitrate ER [Imdur] 30 mg PO HS #90 tab 05/25/24 Magnesium Oxide [Mag-Ox] 400 mg PO HS #90 tab 05/25/24 Metoprolol Succinate (ER) [Toprol 50 mg PO HS #90 tab 05/25/24 XL] Ticagrelor [Brilinta] 90 mg PO HS #90 tab 05/25/24 amLODIPine [Norvasc] 5 mg PO DAILY #90 tab 05/25/24 cloNIDine HCL [Catapres] 0.1 mg PO TID #180 tab 05/25/24 Allergies Allergy/AdvReac Type Severity Reaction Status Date / Time [place] And Derivatives Allergy Rash/Hives Verified 07/30/24 18:11 [[place]] latex Allergy Rash/Hives Verified 07/30/24 18:11 cinnamon AdvReac Nausea Verified 07/30/24 18:11 Influenza Virus Vaccines AdvReac Nausea & Verified 07/30/24 18:11 Vomiting morphine AdvReac Nausea & Verified 07/30/24 18:11 Vomiting tomato AdvReac Diarrhea Verified 07/30/24 18:11 Review of Systems ROS Statement: Those systems with pertinent positive or pertinent negative responses have been documented in the HPI. ROS Other: All systems not noted in ROS Statement are negative. Past Medical History Past Medical History: Asthma, Coronary Artery Disease (CAD), COPD, CVA/TIA, Eye Disorder, Hypertension, Liver Disease, Myocardial Infarction ([place]), Seizure Disorder, Vascular Disorder Additional Past Medical History / Comment(s): Pt recently admitted to [facility] for diarrhea, ETOH abuse. 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 soon Last Myocardial Infarction Date:: aug 2018 History of Any Multi-Drug Resistant Organisms: None Reported Past Surgical History: Cholecystectomy, Heart Catheterization, Orthopedic Surgery Additional Past Surgical History / Comment(s): L caratid stent, bilateral knee surgeries for tendon repair, bartholian cyst removed bilateral wrists, cataracts Past Anesthesia/Blood Transfusion Reactions: Motion Sickness Additional Past Anesthesia/Blood Transfusion Reaction / Comment(s): Pt has received blood without reaction. Past Psychological History: Anxiety, Depression Smoking Status: Current every day smoker Past Alcohol Use History: Abuse, Daily, Heavy Past Drug Use History: Marijuana - Past Family History Mother Family Medical History: Cancer, Congestive Heart Failure (CHF), Coronary Artery Disease (CAD), Hyperlipidemia Additional Family Medical History / Comment(s): Mother at age 85 from lung cancer. Father Family Medical History: Cancer, COPD Additional Family Medical History / Comment(s): Father at age 63 from lung cancer. Brother(s) Additional Family Medical History / Comment(s): Patient has a total of 7 siblings. 5 are alive without any major medical problems she is aware of. 2 siblings have one from alcohol abuse and 1. Coronary artery disease. Daughter(s) Family Medical History: No Reported History Additional Family Medical History / Comment(s): Patient has one daughter with no major medical problems. General Exam Limitations: no limitations General appearance: alert, in no apparent distress Head exam: Present: atraumatic, normocephalic, normal inspection Eye exam: Present: normal appearance, PERRL, EOMI. Absent: scleral icterus, conjunctival injection, periorbital swelling ENT exam: Present: normal exam, normal oropharynx, mucous membranes moist Neck exam: Present: normal inspection, full ROM. Absent: tenderness, meningismus, lymphadenopathy Respiratory exam: Present: normal lung sounds bilaterally. Absent: respiratory distress, wheezes, rales, rhonchi, stridor Cardiovascular Exam: Present: regular rate, normal rhythm, normal heart sounds. Absent: systolic murmur, diastolic murmur, rubs, gallop, clicks GI/Abdominal exam: Present: soft, normal bowel sounds. Absent: distended, tenderness, guarding, rebound, rigid Course Vital Signs 08/02/24 08/02/24 13:35 13:41 Temperature 98.5 F Pulse Rate 85 Pulse Rate [ 85 [place] Controlled Atmospheric Furnace ] Respiratory 18 Rate Blood Pressure 119/82 O2 Sat by Pulse 95 Oximetry EKG Findings - EKG Comments: EKG Findings:: EKG performed at 13: 44 sinus rhythm with a rate of 82 [place] 148 QRS 94 QT/QTc 380/419 - EKG Results: EKG: interpreted by CIERAD Medical Decision Making - Medical Decision Making Was pt. sent in by a medical professional or institution (, YESSY, [facility], urgent care, hospital, or senior care...) When possible be specific @ -No Did you speak to anyone other than the patient for history (EMS, parent, family, police, friend...)? What history was obtained from this source @ -No Did you review nursing and triage notes (agree or disagree)? Why? @ -I reviewed and agree with nursing and triage notes Were old charts reviewed (outside hosp., previous admission, EMS record, old EKG, old radiological studies, urgent care reports/EKG's, senior care records)? Report findings @ -No old charts were reviewed Differential Diagnosis (chest pain, altered mental status, abdominal pain women, abdominal pain men, vaginal bleeding, weakness, fever, dyspnea, syncope, headache, dizziness, GI bleed, back pain, seizure, CVA, palpatations, mental health, musculoskeletal)? @ -Differential Chest Pain: Stable Angina, Unstable Angina, STEMI, NSTEMI Aortic Dissection, Pneumothorax, Musculoskeletal, Esophageal Spasm GERD, Cholecystitis, Pancreatitis, Zoster, this is not meant to be an all-inclusive list. EKG interpreted by me (3pts min.). @ -As above X-rays interpreted by me (1pt min.). @ -Chest x-ray shows no acute cardiopulmonary process CT interpreted by me (1pt min.). @ -None done U/S interpreted by me (1pt. min.). @ -None done What testing was considered but not performed or refused? (CT, X-rays, U/S, labs)? Why? @ -None What meds were considered but not given or refused? Why? @ -None Did you discuss the management of the patient with other professionals (professionals i.e. , YESSY, [facility] WE[employer]HER, lab, RT, psych nurse, psychiatric social worker, vault maker, teacher, commercial loan collection officer, caser up)? Give summary @ -No Was smoking cessation discussed for >3mins.? @ -No Was critical care preformed (if so, how long)? @ -No Were there social determinants of health that impacted care today? How? (Homeles sness, low income, unemployed, alcoholism, drug addiction, transportation, low edu. Level, literacy, decrease access to med. care, nursing home, rehab)? @ -No Was there de-escalation of care discussed even if they declined (Discuss DNR or withdrawal of care, Hospice)? DNR status @ -No What co-morbidities impacted this encounter? (DM, HTN, Smoking, COPD, CAD, Cancer, CVA, ARF, Chemo, Hep., AIDS, mental health diagnosis, sleep apnea, morbid obesity)? @ -Alcohol Was patient admitted / discharged? Hospital course, mention meds given and route, prescriptions, significant lab abnormalities, going to OR and other pertinent info. @ -Patient left AGAINST MEDICAL ADVICE Undiagnosed new problem with uncertain prognosis? @ -No Drug Therapy requiring intensive monitoring for toxicity (Heparin, Nitro, Insulin, Cardizem)? @ -No Were any procedures done? @ -No Diagnosis/symptom? @ -Atypical chest pain Acute, or Chronic, or Acute on Chronic? @ -Acute Uncomplicated (without systemic symptoms) or Complicated (systemic symptoms)? @ -Complicated Side effects of treatment? @ -No Exacerbation, Progression, or Severe Exacerbation? @ -No Poses a threat to life or bodily function? How? (Chest pain, [place], [place], pneumonia, PE, COPD, DKA, ARF, appy, cholecystitis, CVA, Diverticulitis, Homicidal, Suicidal, threat to staff... and all critical care pts) @ -No - Lab Data Result diagrams: 08/02/24 14:40 08/02/24 14:48 Lab Results 08/02/24 08/02/24 08/02/24 Range/Units 14:40 14:40 14:48 WBC 6.7 (3.8-10.6) k/uL RBC 4.55 (3.80-5.40) m/uL Hgb 14.2 (11.4-16.0) gm/dL Hct 42.2 (34.0-46.0) % MCV 92.7 (80.0-100.0) fL MCH 31.2 (25.0-35.0) pg MCHC 33.6 (31.0-37.0) g/dL RDW 17.9 H (11.5-15.5) % Plt Count 126 L (150-450) k/uL MPV 7.5 Neutrophils % 73 % Lymphocytes % 21 % Monocytes % 2 % Eosinophils % 1 % Basophils % 1 % Neutrophils # 4.9 (1.3-7.7) k/uL Lymphocytes # 1.4 (1.0-4.8) k/uL Monocytes # 0.1 (0-1.0) k/uL Eosinophils # 0.1 (0-0.7) k/uL Basophils # 0.1 (0-0.2) k/uL Anisocytosis Slight PT 10.1 (10.0-12.5) sec INR 0.9 (<1.2) APTT 23.5 (22.0-30.0) sec Sodium (137-145) mmol/L Potassium (3.5-5.1) mmol/L Chloride (98-107) mmol/L Carbon Dioxide (22-30) mmol/L Anion Gap mmol/L BUN (7-17) mg/dL Creatinine (0.52-1.04) mg/dL Est GFR (CKD-EPI)AfAm (>60 ml/min/1.73 sqM) Est GFR (CKD-EPI)NonAf (>60 ml/min/1.73 sqM) Glucose (74-99) mg/dL Calcium (8.4-10.2) mg/dL Magnesium (1.6-2.3) mg/dL Total Bilirubin (0.2-1.3) mg/dL AST (14-36) U/L ALT (4-34) U/L Alkaline Phosphatase (38-126) U/L Troponin I 0.019 (0.000-0.034) ng/mL NT-Pro-B Natriuret Pep pg/mL Total Protein (6.3-8.2) g/dL Albumin (3.5-5.0) g/dL Lipase (23-300) U/L 08/02/24 Range/Units 14:48 WBC (3.8-10.6) k/uL RBC (3.80-5.40) m/uL Hgb (11.4-16.0) gm/dL Hct (34.0-46.0) % MCV (80.0-100.0) fL MCH (25.0-35.0) pg MCHC (31.0-37.0) g/dL RDW (11.5-15.5) % Plt Count (150-450) k/uL MPV Neutrophils % % Lymphocytes % % Monocytes % % Eosinophils % % Basophils % % Neutrophils # (1.3-7.7) k/uL Lymphocytes # (1.0-4.8) k/uL Monocytes # (0-1.0) k/uL Eosinophils # (0-0.7) k/uL Basophils # (0-0.2) k/uL Anisocytosis PT (10.0-12.5) sec INR (<1.2) APTT (22.0-30.0) sec Sodium 142 (137-145) mmol/L Potassium 3.9 (3.5-5.1) mmol/L Chloride 102 (98-107) mmol/L Carbon Dioxide 20 L (22-30) mmol/L Anion Gap 20 mmol/L BUN 5 L (7-17) mg/dL Creatinine 0.59 (0.52-1.04) mg/dL Est GFR (CKD-EPI)AfAm >90 (>60 ml/min/1.73 sqM) Est GFR (CKD-EPI)NonAf >90 (>60 ml/min/1.73 sqM) Glucose 77 (74-99) mg/dL Calcium 9.4 (8.4-10.2) mg/dL Magnesium 2.0 (1.6-2.3) mg/dL Total Bilirubin 0.9 (0.2-1.3) mg/dL AST 82 H (14-36) U/L ALT 45 H (4-34) U/L Alkaline Phosphatase 194 H (38-126) U/L Troponin I (0.000-0.034) ng/mL NT-Pro-B Natriuret Pep 100 pg/mL Total Protein 9.3 H (6.3-8.2) g/dL Albumin 5.5 H (3.5-5.0) g/dL Lipase 95 (23-300) U/L Disposition Clinical Impression: Chest pain Disposition: LEFT AGAINST MEDICAL ADVICE Referrals: None,Stated [Primary Care Provider] - 1-2 days
[2024-08-02 15:02] LABS: INR 0.9 (<1.2); Partial Thromboplastin Time 23.5 sec (22.0-30.0); Prothrombin Time 10.1 sec (10.0-12.5)
[2024-08-02 15:06] LABS: ALT 45 U/L (4-34); AST 82 U/L (14-36); African American GFR (CKD) >90 (>60 ml/min/1.73 sqM); Albumin 5.5 g/dL (3.5-5.0); Alkaline Phosphatase 194 U/L (38-126); Anion Gap 20 mmol/L; Blood Urea Nitrogen 5 mg/dL (7-17); Calcium 9.4 mg/dL (8.4-10.2); Carbon Dioxide 20 mmol/L (22-30); Chloride 102 mmol/L (98-107); Glucose 77 mg/dL (74-99); Lipase 95 U/L (23-300); Non-African American GFR(CKD) >90 (>60 ml/min/1.73 sqM); Potassium 3.9 mmol/L (3.5-5.1); Sodium 142 mmol/L (137-145); Total Bilirubin 0.9 mg/dL (0.2-1.3); Total Protein 9.3 g/dL (6.3-8.2)
[2024-08-02 15:14] LABS: NT-Pro-B-Type Natriuretic Pept 100 pg/mL
== END 2024-08-02 15:49 | disposition left against medical advice (07) ==
LOC: EC 13:33
CPT/HCPCS: 36415; 71046; 80053; 83690; 83735; 83880; 84484; 85025; 85610; 85730; 93005; 99285

== ENCOUNTER 2024-08-21 23:09 | Emergency (ER) | payer OTHER ==
[2024-08-21 23:17] VITALS: TEMP 97.8
--- NOTE | 2024-08-21 23:23 | ED ---
Fall HPI - General Chief Complaint: Fall Stated Complaint: Fall Time Seen by Provider: 08/21/24 23:17 Source: EMS, RN notes reviewed, old records reviewed Mode of arrival: EMS Limitations: no limitations - History of Present Illness Initial Comments: This is a 64-year-old female to the ER for evaluation of a fall fall with chest pain with severe alcohol intoxication and a poor historian secondary to his level of intoxication here in the ER patient is well-known to this facility MD Complaint: fall, other (Intoxication chest pain) -: hour(s) When Fall Occurred: unsure Fall Witnessed: no Place Fall Occurred: home Loss of Consciousness: none Prolonged Down Time?: no Symptoms Prior to Fall: none Context: alcohol use Associated Symptoms: denies - Related Data Home Medications Medication Instructions Recorded Confirmed Budesonide/Formoterol Fumarate 2 puff INHALATION RT-HS 07/29/23 08/23/24 [Symbicort 160-4.5 Mcg Inhaler] Multivitamin [Multivitamins Adult 2 tab PO HS 12/04/23 08/23/24 Gummies] Brimonidine Tartrate [Alphagan P 1 drop BOTH EYES BID 02/02/24 08/23/24 0.2% Ophth Soln] Fluticasone Nasal [place] [Flonase 2 spray EA NOSTRIL HS 02/02/24 08/23/24 Nasal [place]] Artificial Tears-Hypromellose 1 drop BOTH EYES TID PRN 03/10/24 08/23/24 [Artificial Tear Drops] Potassium Chloride ER [K-Dur 20] 20 meq PO HS 03/15/24 08/23/24 Cholecalciferol (Vitamin D3) 50 mcg PO HS 05/03/24 08/23/24 [Vitamin D3 (50 Mcg = 2000 Iu)] Ferrous Sulfate [Iron (65 MG 325 mg PO HS 05/03/24 08/23/24 Elemental)] Ipratropium-Albuterol Nebulize 3 ml INHALATION RT-QID PRN 05/24/24 08/23/24 [Duoneb 0.5 mg-3 mg/3 ml Soln] Previous Rx's Medication Instructions Recorded Aspirin EC [Ecotrin Low Dose] 81 mg PO HS #90 tab 05/25/24 Atorvastatin [Lipitor] 80 mg PO HS #90 tab 05/25/24 Isosorbide Mononitrate ER [Imdur] 30 mg PO HS #90 tab 05/25/24 Magnesium Oxide [Mag-Ox] 400 mg PO HS #90 tab 05/25/24 Metoprolol Succinate (ER) [Toprol 50 mg PO HS #90 tab 05/25/24 XL] Ticagrelor [Brilinta] 90 mg PO HS #90 tab 05/25/24 amLODIPine [Norvasc] 5 mg PO DAILY #90 tab 05/25/24 cloNIDine HCL [Catapres] 0.1 mg PO TID #180 tab 05/25/24 Allergies Allergy/AdvReac Type Severity Reaction Status Date / Time [place] And Derivatives Allergy Rash/Hives Verified 08/23/24 17:28 [[place]] latex Allergy Rash/Hives Verified 08/23/24 17:28 cinnamon AdvReac Nausea Verified 08/23/24 17:28 gabapentin AdvReac Dizziness Verified 08/23/24 17:28 Influenza Virus Vaccines AdvReac Nausea & Verified 08/23/24 17:28 Vomiting morphine AdvReac Nausea & Verified 08/23/24 17:28 Vomiting sucralfate [From Carafate] AdvReac Abdominal Verified 08/23/24 17:28 Pain tomato AdvReac Diarrhea Verified 08/23/24 17:28 Review of Systems ROS Statement: Those systems with pertinent positive or pertinent negative responses have been documented in the HPI. ROS Other: All systems not noted in ROS Statement are negative. Past Medical History Past Medical History: Asthma, Coronary Artery Disease (CAD), COPD, CVA/TIA, Eye Disorder, Hypertension, Liver Disease, Myocardial Infarction ([place]), Seizure Disorder, Vascular Disorder Additional Past Medical History / Comment(s): Pt recently admitted to [facility] for diarrhea, ETOH abuse. 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 soon Last Myocardial Infarction Date:: aug 2018 History of Any Multi-Drug Resistant Organisms: None Reported Past Surgical History: Cholecystectomy, Heart Catheterization, Orthopedic Surgery Additional Past Surgical History / Comment(s): L caratid stent, bilateral knee surgeries for tendon repair, bartholian cyst removed bilateral wrists, cataracts Past Anesthesia/Blood Transfusion Reactions: Motion Sickness Additional Past Anesthesia/Blood Transfusion Reaction / Comment(s): Pt has received blood without reaction. Past Psychological History: Anxiety, Depression Smoking Status: Current every day smoker Past Alcohol Use History: Abuse, Daily, Heavy Past Drug Use History: Marijuana - Past Family History Mother Family Medical History: Cancer, Congestive Heart Failure (CHF), Coronary Artery Disease (CAD), Hyperlipidemia Additional Family Medical History / Comment(s): Mother at age 85 from lung cancer. Father Family Medical History: Cancer, COPD Additional Family Medical History / Comment(s): Father at age 63 from lung cancer. Brother(s) Additional Family Medical History / Comment(s): Patient has a total of 7 siblings. 5 are alive without any major medical problems she is aware of. 2 siblings have one from alcohol abuse and 1. Coronary artery disease. Daughter(s) Family Medical History: No Reported History Additional Family Medical History / Comment(s): Patient has one daughter with no major medical problems. General Exam General appearance: alert, in no apparent distress, appears intoxicated, anxious Head exam: Present: atraumatic, normocephalic, normal inspection Eye exam: Present: normal appearance, PERRL, EOMI. Absent: scleral icterus, conjunctival injection, periorbital swelling ENT exam: Present: normal exam, mucous membranes moist Neck exam: Present: normal inspection. Absent: tenderness, meningismus, lymphadenopathy Respiratory exam: Present: normal lung sounds bilaterally. Absent: respiratory distress, wheezes, rales, rhonchi, stridor Cardiovascular Exam: Present: regular rate, normal rhythm, normal heart sounds. Absent: systolic murmur, diastolic murmur, rubs, gallop, clicks GI/Abdominal exam: Present: soft, normal bowel sounds. Absent: distended, tenderness, guarding, rebound, rigid Extremities exam: Present: normal inspection, full ROM, normal capillary refill. Absent: tenderness, pedal edema, joint swelling, calf tenderness Back exam: Present: normal inspection Neurological exam: Present: alert, oriented X3, CN II-XII intact Psychiatric exam: Present: normal affect, normal mood Skin exam: Present: warm, dry, intact, normal color. Absent: rash Course Vital Signs 08/21/24 08/22/24 23:10 05:00 Temperature 97.8 F Pulse Rate 78 68 Respiratory 20 18 Rate Blood Pressure 105/72 106/68 O2 Sat by Pulse 97 96 Oximetry - Reevaluation(s) Reevaluation #1: 08/21/24 23:43 Medical records reviewed Reevaluation #2: 08/21/24 23:43 Patient symptoms unchanged Reevaluation #3: 08/21/24 23:43 Patient informed of results questions answered Reevaluation #4: Was pt. sent in by a medical professional or institution (, YESSY, CHILDCARE WORKER, urgent care, hospital, or fci...) When possible be specific @ -no Did you speak to anyone other than the patient for history (EMS, parent, family, police, friend...)? What history was obtained from this source @ -no Did you review nursing and triage notes (agree or disagree)? Why? @ -agree Are old charts reviewed (outside hosp., previous admission, EMS record, old EKG, old radiological studies, urgent care reports/EKG's, fci records)? Report findings @ -yes Differential Diagnosis (chest pain, altered mental status, abdominal pain women, abdominal pain men, vaginal bleeding, weakness, fever, dyspnea, syncope, headache, dizziness, GI bleed, back pain, seizure, CVA, palpatations, mental health, musculoskeletal)? @ -prior EKG interpreted by me (3pts min.). @ -yes X-rays interpreted by me (1pt min.). @ -yes negative for acute disease CT interpreted by me (1pt min.). @ -no U/S interpreted by me (1pt. min.). @ -no What testing was considered but not performed or refused? (CT, X-rays, U/S, labs)? Why? @ -none What meds were considered but not given or refused? Why? @ -none Did you discuss the management of the patient with other professionals (professionals i.e. YESSY Lloyd, CHILDCARE WORKER, lab, RT, psych nurse, social secretary, business planning manager, teacher, medical scientific officer, case assistant)? Give summary @ -no Was smoking cessation discussed for >3mins.? @ -no Was critical care preformed (if so, how long)? @ -no Were there social determinants of health that impacted care today? How? (Homelessness, low income, unemployed, alcoholism, drug addiction, transportation, low edu. Level, literacy, decrease access to med. care, longterm, rehab)? @ -none Was there de-escalation of care discussed even if they declined (Discuss DNR or withdrawal of care, Hospice)? DNR status @ -no What co-morbidities impacted this encounter? (DM, HTN, Smoking, COPD, CAD, Cancer, CVA, ARF, Chemo, Hep., AIDS, mental health diagnosis, sleep apnea, morbid obesity)? @ -none Was patient admitted / discharged? Hospital course, mention meds given and route, prescriptions, significant lab abnormalities, going to OR and other pertinent info. @ - 64 female to the ER for evaluation of significant chest pain with severe alcohol intoxication. Patient is well-known to this emergency room and in no acute distress and can be discharged home Discharge Undiagnosed new problem with uncertain prognosis? @ -no Drug Therapy requiring intensive monitoring for toxicity (Heparin, Nitro, Insulin, Cardizem)? @ -no Were any procedures done? @ -no Diagnosis/symptom? @ -Alcohol intoxication Acute, or Chronic, or Acute on Chronic? @ -Acute Uncomplicated (without systemic symptoms) or Complicated (systemic symptoms)? @ -Complicated Side effects of treatment? @ -no Exacerbation, Progression, or Severe Exacerbation? @ -exacerbation Poses a threat to life or bodily function? How? (Chest pain, [place], [place], pneumonia, PE, COPD, DKA, ARF, appy, cholecystitis, CVA, Diverticulitis, Homicidal, Suicidal, threat to staff... and all critical care pts) @ -yes Reevaluation #5: Differential Chest Pain: Stable Angina, Unstable Angina, STEMI, NSTEMI Aortic Dissection, Pneumothorax, Musculoskeletal, Esophageal Spasm GERD, Cholecystitis, Pancreatitis, Zoster, this is not meant to be an all-inclusive list. Medical Decision Making - Medical Decision Making 64 female to the ER for evaluation of significant chest pain with severe alcohol intoxication. Patient is well-known to this emergency room and in no acute distress and can be discharged home - EKG Data -: EKG Interpreted by Me (EKG is sinus 75 CA 163 QRS 93 QTc 147) - Radiology Data Radiology results: report reviewed (X-rays negative for acute disease), image reviewed Disposition Clinical Impression: Chest pain, Alcohol intoxication Disposition: HOME SELF-CARE Condition: Good Instructions (If sedation given, give patient instructions): Chest Pain (ED) Is patient prescribed a controlled substance at d/c from ED?: No Referrals: None,Stated [Primary Care Provider] - 1-2 days Time of Disposition: 01:00
[2024-08-22] MEDS: KETOROLAC 15 MG/ML 1 ML VIAL IM STA (00:09)
[2024-08-22] MEDS: HYDROmorphone 0.5 MG/0.5 ML SYRINGE IM STA (00:09)
--- NOTE | 2024-08-22 00:46 | XR ---
EXAM: XR Chest, 1 View CLINICAL HISTORY: ITS.REASON XR Reason: cp TECHNIQUE: Frontal view of the chest. COMPARISON: No relevant prior studies available. FINDINGS: Lungs: Unremarkable. No consolidation. Pleural space: Unremarkable. No pneumothorax. Heart: Cardiomegaly. Mediastinum: Unremarkable. Normal mediastinal contour. Bones/joints: Unremarkable. No acute fracture. IMPRESSION: No acute findings in the chest.
[2024-08-22 05:16] VITALS: BP 106/68; PULSE 68; RESP 18
== END 2024-08-22 05:17 | disposition home or self-care (01) ==
LOC: EC 23:09
CPT/HCPCS: 71045; 93005; 96372; 99284

== ENCOUNTER 2024-08-23 14:05 | Emergency (ER) | payer OTHER ==
--- NOTE | 2024-08-23 14:25 | ED ---
Chest Pain HPI - General Chief Complaint: Chest Pain Stated Complaint: chest pain Time Seen by Provider: 08/23/24 14:08 Source: patient, family, EMS Mode of arrival: EMS - History of Present Illness Initial Comments: This patient is 64-year-old woman who presents to have evaluation of upper chest pain that came on proximately 2 days ago. Patient states she was at rest. It is an aching/burning. She has not noted worsening or relieving factors. When the pain did not resolve she called ambulance to transport her here. MD Complaint: chest pain -: days(s) Onset: during rest Pain Location: substernal Pain Radiation: none Severity: moderate Quality: aching, other (Burning) Consistency: constant Improves With: nothing Worsens With: nothing Anginal Symptoms: nausea, dyspnea Treatments Prior to Arrival: none - Related Data Home Medications Medication Instructions Recorded Confirmed Budesonide/Formoterol Fumarate 2 puff INHALATION RT-HS 07/29/23 09/10/24 [Symbicort 160-4.5 Mcg Inhaler] Multivitamin [Multivitamins Adult 2 tab PO HS 12/04/23 09/10/24 Gummies] Brimonidine Tartrate [Alphagan P 1 drop BOTH EYES BID 02/02/24 09/10/24 0.2% Ophth Soln] Fluticasone Nasal [place] [Flonase 2 spr EA NOSTRIL HS 02/02/24 09/10/24 Nasal [place]] Artificial Tears-Hypromellose 1 drop BOTH EYES TID PRN 03/10/24 09/10/24 [Artificial Tear Drops] Potassium Chloride ER [K-Dur 20] 20 meq PO HS 03/15/24 09/10/24 Cholecalciferol (Vitamin D3) 50 mcg PO HS 05/03/24 09/10/24 [Vitamin D3 (50 Mcg = 2000 Iu)] Ferrous Sulfate [Iron (65 MG 325 mg PO HS 05/03/24 09/10/24 Elemental)] Ipratropium-Albuterol Nebulize 3 ml INHALATION RT-QID PRN 05/24/24 09/10/24 [Duoneb 0.5 mg-3 mg/3 ml Soln] Albuterol Sulfate [Ventolin HFA] 1 - 2 puff INHALATION RT-Q6H PRN 10/30/24 10/30/24 Previous Rx's Medication Instructions Recorded Aspirin EC [Ecotrin Low Dose] 81 mg PO HS #90 tab 05/25/24 Atorvastatin [Lipitor] 80 mg PO HS #90 tab 05/25/24 Isosorbide Mononitrate ER [Imdur] 30 mg PO HS #90 tab 05/25/24 Magnesium Oxide [Mag-Ox] 400 mg PO HS #90 tab 05/25/24 Metoprolol Succinate (ER) [Toprol 50 mg PO HS #90 tab 05/25/24 XL] Ticagrelor [Brilinta] 90 mg PO HS #90 tab 05/25/24 Cephalexin [Keflex] 500 mg PO Q12HR 7 Days #14 cap 09/11/24 Losartan [Cozaar] 25 mg PO DAILY #30 tab 09/11/24 Allergies Allergy/AdvReac Type Severity Reaction Status Date / Time [place] And Derivatives Allergy Rash/Hives Verified 09/10/24 08:35 [[place]] latex Allergy Rash/Hives Verified 09/10/24 08:35 amlodipine [From Norvasc] AdvReac Cough Verified 09/10/24 08:35 cinnamon AdvReac Nausea Verified 09/10/24 08:35 clonidine AdvReac "almost Verified 09/10/24 08:35 passed out" gabapentin AdvReac Dizziness Verified 09/10/24 08:35 Influenza Virus Vaccines AdvReac Nausea & Verified 09/10/24 08:35 Vomiting lisinopril AdvReac Cough Verified 09/10/24 08:35 morphine AdvReac Nausea & Verified 09/10/24 08:35 Vomiting sucralfate [From Carafate] AdvReac Abdominal Verified 09/10/24 08:35 Pain tomato AdvReac Diarrhea Verified 09/10/24 08:35 Review of Systems ROS Statement: Those systems with pertinent positive or pertinent negative responses have been documented in the HPI. ROS Other: All systems not noted in ROS Statement are negative. Constitutional: Denies: fever, chills Respiratory: Denies: cough, dyspnea Cardiovascular: Reports: chest pain. Denies: palpitations, orthopnea, edema, syncope Gastrointestinal: Denies: abdominal pain, nausea, vomiting, diarrhea Genitourinary: Denies: dysuria, hematuria Musculoskeletal: Denies: back pain Skin: Denies: rash Neurological: Denies: headache, weakness, numbness Psychiatric: Denies: anxiety EKG Findings - EKG Comments: EKG Findings:: Lateral and inferior T inversions. Similar to the comparison ECG - EKG Results: EKG: interpreted by LISET, sinus rhythm (Rate 77 bpm), normal axis, normal QRS Past Medical History Past Medical History: Asthma, Coronary Artery Disease (CAD), COPD, CVA/TIA, Eye Disorder, Hypertension, Liver Disease, Myocardial Infarction ([place]), Seizure Disorder, Vascular Disorder Additional Past Medical History / Comment(s): Pt recently admitted to [facility] for diarrhea, ETOH abuse. 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 soon Last Myocardial Infarction Date:: aug 2018 History of Any Multi-Drug Resistant Organisms: None Reported Past Surgical History: Cholecystectomy, Heart Catheterization, Orthopedic Surgery Additional Past Surgical History / Comment(s): L caratid stent, bilateral knee surgeries for tendon repair, bartholian cyst removed bilateral wrists, cataracts Past Anesthesia/Blood Transfusion Reactions: Motion Sickness Additional Past Anesthesia/Blood Transfusion Reaction / Comment(s): Pt has received blood without reaction. Past Psychological History: Anxiety, Depression Smoking Status: Current every day smoker Past Alcohol Use History: Abuse, Daily, Heavy Past Drug Use History: Marijuana - Past Family History Mother Family Medical History: Cancer, Congestive Heart Failure (CHF), Coronary Artery Disease (CAD), Hyperlipidemia Additional Family Medical History / Comment(s): Mother at age 85 from lung cancer. Father Family Medical History: Cancer, COPD Additional Family Medical History / Comment(s): Father at age 63 from lung cancer. Brother(s) Additional Family Medical History / Comment(s): Patient has a total of 7 siblings. 5 are alive without any major medical problems she is aware of. 2 siblings have one from alcohol abuse and 1. Coronary artery disease. Daughter(s) Family Medical History: No Reported History Additional Family Medical History / Comment(s): Patient has one daughter with no major medical problems. General Exam General appearance: alert, in no apparent distress, appears intoxicated Head exam: Present: atraumatic, normocephalic Eye exam: Present: normal appearance. Absent: scleral icterus, conjunctival injection ENT exam: Present: normal oropharynx Neck exam: Present: normal inspection Respiratory exam: Present: normal lung sounds bilaterally. Absent: respiratory distress, wheezes, rales, rhonchi, stridor, accessory muscle use Cardiovascular Exam: Present: regular rate, normal rhythm, normal heart sounds. Absent: systolic murmur, diastolic murmur, rubs, gallop GI/Abdominal exam: Present: soft. Absent: distended, tenderness, guarding, rebound, rigid, mass, pulsatile mass, hernia Extremities exam: Present: normal inspection, normal capillary refill. Absent: pedal edema, calf tenderness Back exam: Present: normal inspection Neurological exam: Present: alert, oriented X3, CN II-XII intact Skin exam: Present: warm, dry, intact, normal color. Absent: rash Course Vital Signs 08/23/24 08/23/24 08/23/24 14:06 14:21 15:53 Temperature Pulse Rate 80 82 Pulse Rate [ 84 Bilateral Extrusion Press Adjuster ] Respiratory 16 18 Rate Blood Pressure 126/85 112/79 O2 Sat by Pulse 97 Oximetry 08/23/24 19:30 Temperature 98.2 F Pulse Rate 82 Pulse Rate [ Bilateral Extrusion Press Adjuster ] Respiratory 16 Rate Blood Pressure 118/82 O2 Sat by Pulse 98 Oximetry Chest Pain MDM - MDM The patient had chest x-ray that I interpreted as negative for acute infiltrate, pneumothorax, congestive heart failure. Was pt. sent in by a medical professional or institution (, PA, BREAKER BOSS, urgent care, hospital, or retirement...) When possible be specific @ -[No] Did you speak to anyone other than the patient for history (EMS, parent, family, police, friend...)? What history was obtained from this source @ -[No] Did you review nursing and triage notes (agree or disagree)? Why? @ -[I reviewed and agree with nursing and triage notes] Were old charts reviewed (outside hosp., previous admission, EMS record, old EKG, old radiological studies, urgent care reports/EKG's, retirement records)? Report findings @ -[No old charts were reviewed] Differential Diagnosis (chest pain, altered mental status, abdominal pain women, abdominal pain men, vaginal bleeding, weakness, fever, dyspnea, syncope, headache, dizziness, GI bleed, back pain, seizure, CVA, palpatations, mental health, musculoskeletal)? @ -[Differential Chest Pain: Stable Angina, Unstable Angina, STEMI, NSTEMI Aortic Dissection, Pneumothorax, Musculoskeletal, Esophageal Spasm GERD, Cholecystitis, Pancreatitis, Zoster, this is not meant to be an all-inclusive list. EKG interpreted by me (3pts min.). @ -[I interpreted as above] X-rays interpreted by me (1pt min.). @ -[I interpreted as above CT interpreted by me (1pt min.). @ -[None done] U/S interpreted by me (1pt. min.). @ -[None done] What testing was considered but not performed or refused? (CT, X-rays, U/S, labs)? Why? @ -[None] What meds were considered but not given or refused? Why? @ -[None] Did you discuss the management of the patient with other professionals (professionals i.e. , PA, BREAKER BOSS, lab, RT, psych nurse, social research assistant, saddle stitch operator, teacher, escrow officer, employment evaluator/case manager)? Give summary @ -[No] Was smoking cessation discussed for >3mins.? @ -[No] Was critical care preformed (if so, how long)? @ -[No] Were there social determinants of health that impacted care today? How? (Homelessness, low income, unemployed, alcoholism, drug addiction, transportation, low edu. Level, literacy, decrease access to med. care, detention, rehab)? @ -[No] Was there de-escalation of care discussed even if they declined (Discuss DNR or withdrawal of care, Hospice)? DNR status @ -[No] What co-morbidities impacted this encounter? (DM, HTN, Smoking, COPD, CAD, Cancer, CVA, ARF, Chemo, Hep., AIDS, mental health diagnosis, sleep apnea, morbid obesity)? @ -[None] Was patient admitted / discharged? Hospital course, mention meds given and route, prescriptions, significant lab abnormalities, going to OR and other pertinent info. @ -[hospital course] Undiagnosed new problem with uncertain prognosis? @ -[No] Drug Therapy requiring intensive monitoring for toxicity (Heparin, Nitro, Insulin, Cardizem)? @ -[No] Were any procedures done? @ -[No] Diagnosis/symptom? @ -[Acute alcohol intoxication Acute chest pain Acute, or Chronic, or Acute on Chronic? @ -[Acute Uncomplicated (without systemic symptoms) or Complicated (systemic symptoms)? @ -[Uncomplicated Side effects of treatment? @ -[No] Exacerbation, Progression, or Severe Exacerbation? @ -[No] Poses a threat to life or bodily function? How? (Chest pain, [place], [place], pneumonia, PE, COPD, DKA, ARF, appy, cholecystitis, CVA, Diverticulitis, Homicidal, Suicidal, threat to staff... and all critical care pts) @ -[No] Disposition Clinical Impression: Chest pain, Acute alcohol intoxication Disposition: HOME SELF-CARE Condition: Good Instructions (If sedation given, give patient instructions): Chest Pain (ED) Is patient prescribed a controlled substance at d/c from ED?: No Referrals: None,Stated [Primary Care Provider] - 1-2 days
[2024-08-23 15:14] LABS: HGB 12.3 gm/dL (11.4-16.0); RBC 3.98 m/uL (3.80-5.40); WBC 8.1 k/uL (3.8-10.6)
[2024-08-23 15:15] LABS: Anisocytosis Slight; Basophils # (A) 0.1 k/uL (0-0.2); Basophils % (A) 1 %; Eosinophils # (A) 0.2 k/uL (0-0.7); Eosinophils % (A) 2 %; HCT 38.3 % (34.0-46.0); Hypochromasia Slight; Lymphocytes # (A) 3.4 k/uL (1.0-4.8); Lymphocytes % (A) 42 %; MCHC 32.2 g/dL (31.0-37.0); MCV 96.2 fL (80.0-100.0); Macrocytosis Slight; Mean Platelet Volume 8.5; Monocytes # (A) 0.4 k/uL (0-1.0); Monocytes % (A) 5 %; Neutrophils # (A) 3.8 k/uL (1.3-7.7); Neutrophils % (A) 46 %; Platelet Count 244 k/uL (150-450); RDW 17.4 % (11.5-15.5)
[2024-08-23 15:55] VITALS: PULSE 82
[2024-08-23 16:09] LABS: ALT 18 U/L (4-34); AST 29 U/L (14-36); African American GFR (CKD) >90 (>60 ml/min/1.73 sqM); Alkaline Phosphatase 92 U/L (38-126); Anion Gap 9 mmol/L; Blood Urea Nitrogen 10 mg/dL (7-17); Calcium 8.4 mg/dL (8.4-10.2); Carbon Dioxide 25 mmol/L (22-30); Chloride 107 mmol/L (98-107); Glucose 97 mg/dL (74-99); Magnesium 1.9 mg/dL (1.6-2.3); Non-African American GFR(CKD) >90 (>60 ml/min/1.73 sqM); Potassium 4.2 mmol/L (3.5-5.1); Sodium 141 mmol/L (137-145); Total Bilirubin 0.2 mg/dL (0.2-1.3); Total Protein 6.4 g/dL (6.3-8.2)
[2024-08-23 16:58] LABS: Alcohol 353 mg/dL
--- NOTE | 2024-08-23 16:58 | XR ---
EXAMINATION TYPE: XR chest 2V DATE OF EXAM: 08/23/2024 COMPARISON: 08/21/2024 INDICATION: Chest pain short of breath TECHNIQUE: Frontal and lateral views of the chest are obtained. FINDINGS: The heart size is mildly prominent. The pulmonary vasculature is normal. The lungs are clear. IMPRESSION: 1. Mild prominence of the heart size. 2. No acute pulmonary process. [facility], Workstation: [facility], 08/23/2024 4:55 PM
[2024-08-23 17:48] LABS: Partial Thromboplastin Time 23.6 sec (22.0-30.0); Prothrombin Time 10.7 sec (10.0-12.5)
[2024-08-23 19:31] VITALS: BP 118/82; RESP 16; TEMP 98.2
== END 2024-08-23 19:30 | disposition home or self-care (01) ==
LOC: EC 14:05
DX: R07.9 Chest pain, unspecified (principal); R07.89 Other chest pain; F10.129 Alcohol abuse with intoxication, unspecified; Z86.73 Personal history of transient ischemic attack (TIA), and cerebral infarction without residual deficits; F17.200 Nicotine dependence, unspecified, uncomplicated; Z88.5 Allergy status to narcotic agent; Z88.7 Allergy status to serum and vaccine; Z88.8 Allergy status to other drugs, medicaments and biological substances; Z91.040 Latex allergy status
CPT/HCPCS: 36415; 93005; 80053; 83735; 84484; 85025; 85610; 85730; 71046; 99285; G0480; 80320

== ENCOUNTER 2024-08-24 09:24 | Emergency (ER) | payer OTHER ==
[2024-08-24 09:30] VITALS: TEMP 97.4
[2024-08-24] MEDS: SODIUM CHLORIDE 0.9% 500 ML 500 ML IV STA (09:56)
[2024-08-24] MEDS: SODIUM CHLORIDE 0.9% 1,000 ML IV STA (09:56)
[2024-08-24] MEDS: KETOROLAC 15 MG/ML 1 ML VIAL IVP STA (09:56)
[2024-08-24 10:14] LABS: Anisocytosis Slight; Basophils # (A) 0.1 k/uL (0-0.2); Basophils % (A) 1 %; Eosinophils # (A) 0.1 k/uL (0-0.7); Eosinophils % (A) 1 %; HCT 39.9 % (34.0-46.0); HGB 12.4 gm/dL (11.4-16.0); Hypochromasia Marked; Lymphocytes # (A) 2.2 k/uL (1.0-4.8); Lymphocytes % (A) 22 %; MCH 29.8 pg (25.0-35.0); MCHC 31.2 g/dL (31.0-37.0); MCV 95.6 fL (80.0-100.0); Mean Platelet Volume 7.7; Monocytes # (A) 0.4 k/uL (0-1.0); Monocytes % (A) 4 %; Neutrophils # (A) 6.7 k/uL (1.3-7.7); Neutrophils % (A) 68 %; Platelet Count 230 k/uL (150-450); RBC 4.17 m/uL (3.80-5.40); WBC 9.8 k/uL (3.8-10.6)
[2024-08-24 10:28] LABS: ALT 22 U/L (4-34); AST 34 U/L (14-36); African American GFR (CKD) >90 (>60 ml/min/1.73 sqM); Albumin 4.7 g/dL (3.5-5.0); Alkaline Phosphatase 115 U/L (38-126); Anion Gap 10 mmol/L; Blood Urea Nitrogen 11 mg/dL (7-17); Calcium 9.1 mg/dL (8.4-10.2); Carbon Dioxide 28 mmol/L (22-30); Chloride 107 mmol/L (98-107); Glucose 106 mg/dL (74-99); Lipase 59 U/L (23-300); Non-African American GFR(CKD) >90 (>60 ml/min/1.73 sqM); Potassium 3.8 mmol/L (3.5-5.1); Prothrombin Time 10.8 sec (10.0-12.5); Sodium 145 mmol/L (137-145); Total Bilirubin 0.4 mg/dL (0.2-1.3); Total Protein 7.5 g/dL (6.3-8.2)
--- NOTE | 2024-08-24 10:28 | ED ---
Chest Pain HPI - General Chief Complaint: Chest Pain Stated Complaint: Chest pain Time Seen by Provider: 08/24/24 09:26 Source: patient, EMS, RN notes reviewed, old records reviewed Mode of arrival: EMS Limitations: no limitations - History of Present Illness Initial Comments: 64-year-old female presents emergency department chief complaint of chest wall pain. Patient states that she has had this pain for days she was seen her last night states that she still had pain when she got home. Patient states that she did drink some alcohol last night which is chronic for this patient. She denies any shortness of breath no headache or dizziness no abdominal pain no nausea vomiting. - Related Data Home Medications Medication Instructions Recorded Confirmed Budesonide/Formoterol Fumarate 2 puff INHALATION RT-HS 07/29/23 08/23/24 [Symbicort 160-4.5 Mcg Inhaler] Multivitamin [Multivitamins Adult 2 tab PO HS 12/04/23 08/23/24 Gummies] Brimonidine Tartrate [Alphagan P 1 drop BOTH EYES BID 02/02/24 08/23/24 0.2% Ophth Soln] Fluticasone Nasal [place] [Flonase 2 spray EA NOSTRIL HS 02/02/24 08/23/24 Nasal [place]] Artificial Tears-Hypromellose 1 drop BOTH EYES TID PRN 03/10/24 08/23/24 [Artificial Tear Drops] Potassium Chloride ER [K-Dur 20] 20 meq PO HS 03/15/24 08/23/24 Cholecalciferol (Vitamin D3) 50 mcg PO HS 05/03/24 08/23/24 [Vitamin D3 (50 Mcg = 2000 Iu)] Ferrous Sulfate [Iron (65 MG 325 mg PO HS 05/03/24 08/23/24 Elemental)] Ipratropium-Albuterol Nebulize 3 ml INHALATION RT-QID PRN 05/24/24 08/23/24 [Duoneb 0.5 mg-3 mg/3 ml Soln] Previous Rx's Medication Instructions Recorded Aspirin EC [Ecotrin Low Dose] 81 mg PO HS #90 tab 05/25/24 Atorvastatin [Lipitor] 80 mg PO HS #90 tab 05/25/24 Isosorbide Mononitrate ER [Imdur] 30 mg PO HS #90 tab 05/25/24 Magnesium Oxide [Mag-Ox] 400 mg PO HS #90 tab 05/25/24 Metoprolol Succinate (ER) [Toprol 50 mg PO HS #90 tab 05/25/24 XL] Ticagrelor [Brilinta] 90 mg PO HS #90 tab 05/25/24 amLODIPine [Norvasc] 5 mg PO DAILY #90 tab 05/25/24 cloNIDine HCL [Catapres] 0.1 mg PO TID #180 tab 05/25/24 Allergies Allergy/AdvReac Type Severity Reaction Status Date / Time [place] And Derivatives Allergy Rash/Hives Verified 08/24/24 09:30 [[place]] latex Allergy Rash/Hives Verified 08/24/24 09:30 cinnamon AdvReac Nausea Verified 08/24/24 09:30 gabapentin AdvReac Dizziness Verified 08/24/24 09:30 Influenza Virus Vaccines AdvReac Nausea & Verified 08/24/24 09:30 Vomiting morphine AdvReac Nausea & Verified 08/24/24 09:30 Vomiting sucralfate [From Carafate] AdvReac Abdominal Verified 08/24/24 09:30 Pain tomato AdvReac Diarrhea Verified 08/24/24 09:30 Review of Systems ROS Statement: Those systems with pertinent positive or pertinent negative responses have been documented in the HPI. ROS Other: All systems not noted in ROS Statement are negative. EKG Findings - EKG Comments: EKG Findings:: EKG performed at 9: 35 sinus rhythm rate of 86 VA 124 QRS 98 QT/QTc 380/424 there are no acute changes noted from EKG on 08/24/2024 - EKG Results: EKG: interpreted by LISET Past Medical History Past Medical History: Asthma, Coronary Artery Disease (CAD), COPD, CVA/TIA, Eye Disorder, Hypertension, Liver Disease, Myocardial Infarction ([place]), Seizure Disorder, Vascular Disorder Additional Past Medical History / Comment(s): Pt recently admitted to [facility] for diarrhea, ETOH abuse. 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 soon Last Myocardial Infarction Date:: aug 2018 History of Any Multi-Drug Resistant Organisms: None Reported Past Surgical History: Cholecystectomy, Heart Catheterization, Orthopedic Surgery Additional Past Surgical History / Comment(s): L caratid stent, bilateral knee surgeries for tendon repair, bartholian cyst removed bilateral wrists, cataracts Past Anesthesia/Blood Transfusion Reactions: Motion Sickness Additional Past Anesthesia/Blood Transfusion Reaction / Comment(s): Pt has received blood without reaction. Past Psychological History: Anxiety, Depression Smoking Status: Current every day smoker Past Alcohol Use History: Abuse, Daily, Heavy Past Drug Use History: Marijuana - Past Family History Mother Family Medical History: Cancer, Congestive Heart Failure (CHF), Coronary Artery Disease (CAD), Hyperlipidemia Additional Family Medical History / Comment(s): Mother at age 85 from lung cancer. Father Family Medical History: Cancer, COPD Additional Family Medical History / Comment(s): Father at age 63 from lung cancer. Brother(s) Additional Family Medical History / Comment(s): Patient has a total of 7 siblings. 5 are alive without any major medical problems she is aware of. 2 siblings have one from alcohol abuse and 1. Coronary artery disease. Daughter(s) Family Medical History: No Reported History Additional Family Medical History / Comment(s): Patient has one daughter with no major medical problems. General Exam Limitations: no limitations General appearance: alert, in no apparent distress Head exam: Present: atraumatic, normocephalic, normal inspection Eye exam: Present: normal appearance, PERRL, EOMI. Absent: scleral icterus, conjunctival injection, periorbital swelling ENT exam: Present: normal exam, mucous membranes moist Neck exam: Present: normal inspection. Absent: tenderness, meningismus, lymphadenopathy Respiratory exam: Present: normal lung sounds bilaterally. Absent: respiratory distress, wheezes, rales, rhonchi, stridor Cardiovascular Exam: Present: regular rate, normal rhythm, normal heart sounds. Absent: systolic murmur, diastolic murmur, rubs, gallop, clicks GI/Abdominal exam: Present: soft, normal bowel sounds. Absent: distended, tenderness, guarding, rebound, rigid Neurological exam: Present: alert, oriented X3 Skin exam: Present: warm, dry, intact, normal color. 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 sent in by a medical professional or institution (, YESSY, VASCULAR MANAGER, urgent care, hospital, or custodial...) When possible be specific @ -No Did you speak to anyone other than the patient for history (EMS, parent, family, police, friend...)? What history was obtained from this source @ -No Did you review nursing and triage notes (agree or disagree)? Why? @ -I reviewed and agree with nursing and triage notes Were old charts reviewed (outside hosp., previous admission, EMS record, old EKG, old radiological studies, urgent care reports/EKG's, custodial records)? Report findings @ -Reviewed records including CBC, CMP EKG from yesterday Differential Diagnosis (chest pain, altered mental status, abdominal pain women, abdominal pain men, vaginal bleeding, weakness, fever, dyspnea, syncope, headache, dizziness, GI bleed, back pain, seizure, CVA, palpatations, mental health, musculoskeletal)? @ -[Differential Chest Pain: Stable Angina, Unstable Angina, STEMI, NSTEMI Aortic Dissection, Pneumothorax, Musculoskeletal, Esophageal Spasm GERD, Cholecystitis, Pancreatitis, Zoster, this is not meant to be an all-inclusive list. EKG interpreted by me (3pts min.). @ -As above X-rays interpreted by me (1pt min.). @ -None done CT interpreted by me (1pt min.). @ -None done U/S interpreted by me (1pt. min.). @ -None done What testing was considered but not performed or refused? (CT, X-rays, U/S, labs)? Why? @ -None What meds were considered but not given or refused? Why? @ -None Did you discuss the management of the patient with other professionals (professionals i.e. , YESSY, VASCULAR MANAGER, lab, RT, psych nurse, social work msw, environmental health technician, teacher, chief juvenile probation officer, case advocate)? Give summary @ -No Was smoking cessation discussed for >3mins.? @ -No Was critical care preformed (if so, how long)? @ -No Were there social determinants of health that impacted care today? How? (Homelessness, low income, unemployed, alcoholism, drug addiction, transportation, low edu. Level, literacy, decrease access to med. care, snf, rehab)? @ -No Was there de-escalation of care discussed even if they declined (Discuss DNR or withdrawal of care, Hospice)? DNR status @ -No What co-morbidities impacted this encounter? (DM, HTN, Smoking, COPD, CAD, Cancer, CVA, ARF, Chemo, Hep., AIDS, mental health diagnosis, sleep apnea, morbid obesity)? @ -Alcoholism Was patient admitted / discharged? Hospital course, mention meds given and route, prescriptions, significant lab abnormalities, going to OR and other pertinent info. @ -Discharge patient has reproducible chest wall pain, anxiety troponin is negative since has been present for almost 24 hours and was seen yesterday with a negative troponin. Patient be discharged in stable condition return par ameters discussed Undiagnosed new problem with uncertain prognosis? @ -No Drug Therapy requiring intensive monitoring for toxicity (Heparin, Nitro, Insulin, Cardizem)? @ -No Were any procedures done? @ -No Diagnosis/symptom? @ -Atypical chest pain, anxiety Acute, or Chronic, or Acute on Chronic? @ -Acute Uncomplicated (without systemic symptoms) or Complicated (systemic symptoms)? @ -Uncomplicated Side effects of treatment? @ -No Exacerbation, Progression, or Severe Exacerbation? @ -No Poses a threat to life or bodily function? How? (Chest pain, [place], [place], pneumonia, PE, COPD, DKA, ARF, appy, cholecystitis, CVA, Diverticulitis, Homicidal, Suicidal, threat to staff... and all critical care pts) @ -No Disposition Clinical Impression: Atypical chest pain, Anxiety Disposition: HOME SELF-CARE Condition: Stable Instructions (If sedation given, give patient instructions): Chest Pain (ED) Additional Instructions: Please return to the Emergency Department if symptoms worsen or any other concerns. Is patient prescribed a controlled substance at d/c from ED?: No Referrals: Miya Johnson MD [Primary Care Provider] - 1-2 days Time of Disposition: 11:45
[2024-08-24 10:45] VITALS: PULSE 68; RESP 18
[2024-08-24 12:06] VITALS: BP 128/87
== END 2024-08-24 12:06 | disposition home or self-care (01) ==
LOC: EC 09:24
CPT/HCPCS: 36415; 80053; 83690; 83735; 84484; 85025; 85610; 85730; 93005; 96361; 96374; 99284

== ENCOUNTER 2024-08-25 11:21 | Emergency (ER) | payer OTHER ==
[2024-08-25 11:27] VITALS: BP 126/90; RESP 16; TEMP 97.8
--- NOTE | 2024-08-25 12:56 | ED ---
Weakness HPI - General Chief complaint: Weakness Stated complaint: Weakness Time Seen by Provider: 08/25/24 11:36 Source: EMS, RN notes reviewed Mode of arrival: EMS Limitations: no limitations - History of Present Illness Initial comments: This is a 64-year-old female with history of MT and stroke presenting via EMS with complaint of bilateral arm weakness x 2 hours. Patient endorses difficulty raising both arms, stating the right was worse than left, vision changes, photophobia, headache, nausea. Patient states that she is able to ambulate with walker and denies difficulty with verbalization and articulation. Patient is seen frequently in ED for this pain in the fourth visit for the past 4 days. Patient was seen in this ED ER yesterday for atypical chest pain with no emergent findings at that time. Patient endorses history of MT and CVA. Patient denies fever, chills, dizziness, difficulty speaking, facial drooping, chest pain, dyspnea, abdominal pain. MD Complaint: focal weakness Onset/Timin -: hour(s) - Related Data Home Medications Medication Instructions Recorded Confirmed Budesonide/Formoterol Fumarate 2 puff INHALATION RT-HS 07/29/23 08/23/24 [Symbicort 160-4.5 Mcg Inhaler] Multivitamin [Multivitamins Adult 2 tab PO HS 12/04/23 08/23/24 Gummies] Brimonidine Tartrate [Alphagan P 1 drop BOTH EYES BID 02/02/24 08/23/24 0.2% Ophth Soln] Fluticasone Nasal [place] [Flonase 2 spray EA NOSTRIL HS 02/02/24 08/23/24 Nasal [place]] Artificial Tears-Hypromellose 1 drop BOTH EYES TID PRN 03/10/24 08/23/24 [Artificial Tear Drops] Potassium Chloride ER [K-Dur 20] 20 meq PO HS 03/15/24 08/23/24 Cholecalciferol (Vitamin D3) 50 mcg PO HS 05/03/24 08/23/24 [Vitamin D3 (50 Mcg = 2000 Iu)] Ferrous Sulfate [Iron (65 MG 325 mg PO HS 05/03/24 08/23/24 Elemental)] Ipratropium-Albuterol Nebulize 3 ml INHALATION RT-QID PRN 05/24/24 08/23/24 [Duoneb 0.5 mg-3 mg/3 ml Soln] Previous Rx's Medication Instructions Recorded Aspirin EC [Ecotrin Low Dose] 81 mg PO HS #90 tab 05/25/24 Atorvastatin [Lipitor] 80 mg PO HS #90 tab 05/25/24 Isosorbide Mononitrate ER [Imdur] 30 mg PO HS #90 tab 05/25/24 Magnesium Oxide [Mag-Ox] 400 mg PO HS #90 tab 05/25/24 Metoprolol Succinate (ER) [Toprol 50 mg PO HS #90 tab 05/25/24 XL] Ticagrelor [Brilinta] 90 mg PO HS #90 tab 05/25/24 amLODIPine [Norvasc] 5 mg PO DAILY #90 tab 05/25/24 cloNIDine HCL [Catapres] 0.1 mg PO TID #180 tab 05/25/24 Allergies Allergy/AdvReac Type Severity Reaction Status Date / Time [place] And Derivatives Allergy Rash/Hives Verified 08/25/24 11:27 [[place]] latex Allergy Rash/Hives Verified 08/25/24 11:27 cinnamon AdvReac Nausea Verified 08/25/24 11:27 gabapentin AdvReac Dizziness Verified 08/25/24 11:27 Influenza Virus Vaccines AdvReac Nausea & Verified 08/25/24 11:27 Vomiting morphine AdvReac Nausea & Verified 08/25/24 11:27 Vomiting sucralfate [From Carafate] AdvReac Abdominal Verified 08/25/24 11:27 Pain tomato AdvReac Diarrhea Verified 08/25/24 11:27 Review of Systems ROS Statement: Those systems with pertinent positive or pertinent negative responses have been documented in the HPI. ROS Other: All systems not noted in ROS Statement are negative. Past Medical History Past Medical History: Asthma, Coronary Artery Disease (CAD), COPD, CVA/TIA, Eye Disorder, Hypertension, Liver Disease, Myocardial Infarction (MT), Seizure Disorder, Vascular Disorder Additional Past Medical History / Comment(s): Pt recently admitted to [facility] for diarrhea, ETOH abuse. 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 soon Last Myocardial Infarction Date:: aug 2018 History of Any Multi-Drug Resistant Organisms: None Reported Past Surgical History: Cholecystectomy, Heart Catheterization, Orthopedic Surgery Additional Past Surgical History / Comment(s): L caratid stent, bilateral knee surgeries for tendon repair, bartholian cyst removed bilateral wrists, cataracts Past Anesthesia/Blood Transfusion Reactions: Motion Sickness Additional Past Anesthesia/Blood Transfusion Reaction / Comment(s): Pt has received blood without reaction. Past Psychological History: Anxiety, Depression Smoking Status: Current every day smoker Past Alcohol Use History: Abuse, Daily, Heavy Past Drug Use History: Marijuana - Past Family History Mother Family Medical History: Cancer, Congestive Heart Failure (CHF), Coronary Artery Disease (CAD), Hyperlipidemia Additional Family Medical History / Comment(s): Mother at age 85 from lung cancer. Father Family Medical History: Cancer, COPD Additional Family Medical History / Comment(s): Father at age 63 from lung cancer. Brother(s) Additional Family Medical History / Comment(s): Patient has a total of 7 siblings. 5 are alive without any major medical problems she is aware of. 2 siblings have one from alcohol abuse and 1. Coronary artery disease. Daughter(s) Family Medical History: No Reported History Additional Family Medical History / Comment(s): Patient has one daughter with no major medical problems. General Exam Limitations: no limitations General appearance: alert, in no apparent distress Head exam: Present: atraumatic, normocephalic, normal inspection Eye exam: Present: normal appearance, PERRL, other (Patient states she is unable to gaze to the right during cranial nerve exam. Multiple momentary eye movements to the right noted during physical exam). Absent: scleral icterus, conjunctival injection, periorbital swelling ENT exam: Present: normal exam, mucous membranes moist, other (Symmetrical smile noted) Neck exam: Present: normal inspection. Absent: tenderness, meningismus, lymphadenopathy Respiratory exam: Present: normal lung sounds bilaterally. Absent: respiratory distress, wheezes, rales, rhonchi, stridor Cardiovascular Exam: Present: regular rate, normal rhythm, normal heart sounds. Absent: systolic murmur, diastolic murmur, rubs, gallop, clicks GI/Abdominal exam: Present: soft, normal bowel sounds. Absent: distended, tenderness, guarding, rebound, rigid Extremities exam: Present: normal capillary refill, other (Denies capable use of right arm. patient able to raise left arm to shoulder level for 5 to 10 seconds before having to lower arm due to weakness. While supine, right arm drop test reveals patient avoiding face when arm is released. Patient also seen adjusting collar with right arm). Absent: tenderness, pedal edema, joint swelling, calf tenderness Back exam: Present: normal inspection Neurological exam: Present: alert, oriented X3, other (Patient states that she is unable to raise right arm. Patient able to use right arm for support when using walker while ambulating. Remaining [place] stroke test is normal with normal smile and normal speech without dysphasia or aphasia) Psychiatric exam: Present: normal affect, normal mood Skin exam: Present: warm, dry, intact, normal color. Absent: rash Course Vital Signs 08/25/24 08/25/24 11:22 15:20 Temperature 97.8 F Pulse Rate 91 74 Respiratory 16 16 Rate Blood Pressure 126/90 126/90 O2 Sat by Pulse 98 95 Oximetry Medical Decision Making - Medical Decision Making Was pt. sent in by a medical professional or institution (, PA, FOUNTAIN MANAGER, urgent care, hospital, or detention...) When possible be specific @ -No Did you speak to anyone other than the patient for history (EMS, parent, family, police, friend...)? What history was obtained from this source @ -No Did you review nursing and triage notes (agree or disagree)? Why? @ -I reviewed and agree with nursing and triage notes Were old charts reviewed (outside hosp., previous admission, EMS record, old EKG, old radiological studies, urgent care reports/EKG's, detention records)? Report findings @ -No old charts were reviewed Differential Diagnosis (chest pain, altered mental status, abdominal pain women, abdominal pain men, vaginal bleeding, weakness, fever, dyspnea, syncope, headache, dizziness, GI bleed, back pain, seizure, CVA, palpatations, mental health, musculoskeletal)? @ -Differential Weakness: Hypoglycemia, shock, sepsis, hyponatremia, anemia, infection, MT, ETOH, adverse medicine reaction, overdose, stroke, this is not meant to be an all-inclusive list. EKG interpreted by me (3pts min.). @ -Not done X-rays interpreted by me (1pt min.). @ -Chest x-ray revealed no focal infiltrates, pulmonary edema or blunting of costophrenic angle CT interpreted by me (1pt min.). @ -CT brain revealed no acute infarctions or hemorrhaging U/S interpreted by me (1pt. min.). @ -None done What testing was considered but not performed or refused? (CT, X-rays, U/S, labs)? Why? @ -None What meds were considered but not given or refused? Why? @ -None Did you discuss the management of the patient with other professionals (professionals i.e. , PA, FOUNTAIN MANAGER, lab, RT, psych nurse, social media sr strategy manager, change house attendant, teacher, photographic intelligence officer, spring encaser)? Give summary @ -No Was smoking cessation discussed for >3mins.? @ -No Was critical care preformed (if so, how long)? @ -No Were there social determinants of health that impacted care today? How? (Homele ssness, low income, unemployed, alcoholism, drug addiction, transportation, low edu. Level, literacy, decrease access to med. care, snf, rehab)? @ -Alcoholism Was there de-escalation of care discussed even if they declined (Discuss DNR or withdrawal of care, Hospice)? DNR status @ -No What co-morbidities impacted this encounter? (DM, HTN, Smoking, COPD, CAD, Cancer, CVA, ARF, Chemo, Hep., AIDS, mental health diagnosis, sleep apnea, morbid obesity)? @ -None Was patient admitted / discharged? Hospital course, mention meds given and route, prescriptions, significant lab abnormalities, going to OR and other pertinent info. @ -Discharge. CT brain revealed no acute processes. Lab work and vital signs are normal. Advised patient return to ER if symptoms worsen. Undiagnosed new problem with uncertain prognosis? @ -No Drug Therapy requiring intensive monitoring for toxicity (Heparin, Nitro, I nsulin, Cardizem)? @ -No Were any procedures done? @ -No Diagnosis/symptom? @ -Anxiety, no abnormal findings Acute, or Chronic, or Acute on Chronic? @ -Acute Uncomplicated (without systemic symptoms) or Complicated (systemic symptoms)? @ -Uncomplicated Side effects of treatment? @ -No Exacerbation, Progression, or Severe Exacerbation? @ -No Poses a threat to life or bodily function? How? (Chest pain, USA, MT, pneumonia, PE, COPD, DKA, ARF, appy, cholecystitis, CVA, Diverticulitis, Homicidal, Sherly cidal, threat to staff... and all critical care pts) @ -No - Lab Data Result diagrams: 08/25/24 13:40 08/25/24 13:40 Lab Results 08/25/24 08/25/24 08/25/24 Range/Units 13:40 13:40 13:40 WBC 8.3 (3.8-10.6) k/uL RBC 4.03 (3.80-5.40) m/uL Hgb 12.3 (11.4-16.0) gm/dL Hct 37.3 (34.0-46.0) % MCV 92.7 (80.0-100.0) fL MCH 30.6 (25.0-35.0) pg MCHC 33.0 (31.0-37.0) g/dL RDW 17.2 H (11.5-15.5) % Plt Count 198 (150-450) k/uL MPV 7.7 Neutrophils % 63 % Lymphocytes % 28 % Monocytes % 4 % Eosinophils % 1 % Basophils % 1 % Neutrophils # 5.2 (1.3-7.7) k/uL Lymphocytes # 2.3 (1.0-4.8) k/uL Monocytes # 0.4 (0-1.0) k/uL Eosinophils # 0.1 (0-0.7) k/uL Basophils # 0.1 (0-0.2) k/uL Anisocytosis Slight PT 11.6 (10.0-12.5) sec INR 1.1 (<1.2) APTT 24.8 (22.0-30.0) sec Sodium 145 (137-145) mmol/L Potassium 3.9 (3.5-5.1) mmol/L Chloride 107 (98-107) mmol/L Carbon Dioxide 23 (22-30) mmol/L Anion Gap 15 mmol/L BUN 10 (7-17) mg/dL Creatinine 0.55 (0.52-1.04) mg/dL Est GFR (CKD-EPI)AfAm >90 (>60 ml/min/1.73 sqM) Est GFR (CKD-EPI)NonAf >90 (>60 ml/min/1.73 sqM) Glucose 101 H (74-99) mg/dL Calcium 8.5 (8.4-10.2) mg/dL Phosphorus 4.1 (2.5-4.5) mg/dL Magnesium 1.8 (1.6-2.3) mg/dL Total Bilirubin 0.3 (0.2-1.3) mg/dL AST 30 (14-36) U/L ALT 19 (4-34) U/L Alkaline Phosphatase 105 (38-126) U/L Total Protein 6.3 (6.3-8.2) g/dL Albumin 3.8 (3.5-5.0) g/dL Disposition Clinical Impression: Anxiety, No diagnosis Disposition: HOME SELF-CARE Condition: Good Is patient prescribed a controlled substance at d/c from ED?: No Referrals: Miya Johnson MD [Primary Care Provider] - 1-2 days Time of Disposition: 15:35
[2024-08-25] MEDS: SODIUM CHLORIDE 0.9% 1,000 ML IV STA (13:41)
[2024-08-25] MEDS: ONDANSETRON 4 MG/2 ML VIAL IVP STA (13:41)
[2024-08-25 14:06] LABS: Anisocytosis Slight; Basophils # (A) 0.1 k/uL (0-0.2); Basophils % (A) 1 %; Eosinophils # (A) 0.1 k/uL (0-0.7); Eosinophils % (A) 1 %; HCT 37.3 % (34.0-46.0); HGB 12.3 gm/dL (11.4-16.0); Lymphocytes # (A) 2.3 k/uL (1.0-4.8); Lymphocytes % (A) 28 %; MCH 30.6 pg (25.0-35.0); MCV 92.7 fL (80.0-100.0); Mean Platelet Volume 7.7; Monocytes # (A) 0.4 k/uL (0-1.0); Monocytes % (A) 4 %; Neutrophils # (A) 5.2 k/uL (1.3-7.7); Neutrophils % (A) 63 %; Platelet Count 198 k/uL (150-450); RBC 4.03 m/uL (3.80-5.40); RDW 17.2 % (11.5-15.5); WBC 8.3 k/uL (3.8-10.6)
[2024-08-25 14:13] LABS: INR 1.1 (<1.2); Partial Thromboplastin Time 24.8 sec (22.0-30.0); Prothrombin Time 11.6 sec (10.0-12.5)
--- NOTE | 2024-08-25 14:15 | CT ---
Head CT without contrast. HISTORY: Headache and right-sided weakness. COMPARISON: 07/31/2024. TECHNIQUE: Multiple axial images are obtained from the skull base to vertex without use of IV contras t material. FINDINGS: The ventricles, basal cisterns and sulci over the convexities are within normal limits and there is n o mass effect or shift of midline structures. There is a stable 12 mm colloid cyst in the region of foramen Monro. There is a remote moderate left parietal lobe. There is remote left frontal white matter infarct. There is no mass effect or shift of midline structures. There is no acute intra or extra-axial hemorrhage. The posterior fossa including the brainstem, fourth ventricle and cerebellar pontine angles appear no rmal. Intraorbital contents appear normal and symmetric. Visualized paranasal sinuses and mastoid air cells are well aerated. The calvarium is intact. IMPRESSION: 1. No acute bleed or mass effect. 2. Stable colloid cyst. 3. Remote infarcts involving the left parietal lobe and left frontal white matter. [facility], , 08/25/2024 2:13 PM
[2024-08-25 14:16] LABS: ALT 19 U/L (4-34); AST 30 U/L (14-36); African American GFR (CKD) >90 (>60 ml/min/1.73 sqM); Albumin 3.8 g/dL (3.5-5.0); Alkaline Phosphatase 105 U/L (38-126); Anion Gap 15 mmol/L; Blood Urea Nitrogen 10 mg/dL (7-17); Calcium 8.5 mg/dL (8.4-10.2); Carbon Dioxide 23 mmol/L (22-30); Chloride 107 mmol/L (98-107); Glucose 101 mg/dL (74-99); Magnesium 1.8 mg/dL (1.6-2.3); Non-African American GFR(CKD) >90 (>60 ml/min/1.73 sqM); Phosphorus 4.1 mg/dL (2.5-4.5); Potassium 3.9 mmol/L (3.5-5.1); Sodium 145 mmol/L (137-145); Total Bilirubin 0.3 mg/dL (0.2-1.3); Total Protein 6.3 g/dL (6.3-8.2)
--- NOTE | 2024-08-25 14:17 | XR ---
EXAMINATION TYPE: XR chest 2V DATE OF EXAM: 08/25/2024 2:09 PM CLINICAL INDICATION: Female, 64 years old with history of Weakness; COMPARISON: Chest radiographs from 08/23/2024 TECHNIQUE: XR chest 2V Frontal view of the chest. FINDINGS: Lungs/Pleura: There is no evidence of pleural effusion, focal consolidation, or pneumothorax. Pulmonary vascularity: Unremarkable. Heart/mediastinum: Cardiomediastinal silhouette is unremarkable. Musculoskeletal: No acute osseous pathology. IMPRESSION: No acute cardiopulmonary disease/process. [facility], , 08/25/2024 2:15 PM
[2024-08-25 15:21] VITALS: PULSE 74
== END 2024-08-25 16:05 | disposition home or self-care (01) ==
LOC: EC 11:21
CPT/HCPCS: 36415; 70450; 71046; 80053; 83735; 84100; 85025; 85610; 85730; 93005; 96361; 96374; 99285

== ENCOUNTER 2024-08-26 18:49 | Emergency (ER) | payer OTHER ==
--- NOTE | 2024-08-26 19:11 | ED ---
General Adult HPI - General Chief complaint: Back Pain/Injury Stated complaint: Back pain Time Seen by Provider: 08/26/24 18:50 Source: patient, EMS, RN notes reviewed, old records reviewed Mode of arrival: EMS - History of Present Illness Initial comments: This is a 64-year-old female who presents to the emergency department complaining of lower back pain bilaterally she states she has had it for years it just feels a little worse today so she decided to come to the emergency department. Patient states there is no numbness weakness. Patient is able to sit herself up in bed without problem she turns and twist with apparently no pain. Patient states the pain is in the lower back in the muscular region in the paraspinous muscles. Patient denies any recent injury or trauma. Patient states she had 1 shot of alcohol prior to coming. She states she did not have anything else. - Related Data Home Medications Medication Instructions Recorded Confirmed Budesonide/Formoterol Fumarate 2 puff INHALATION RT-HS 07/29/23 08/23/24 [Symbicort 160-4.5 Mcg Inhaler] Multivitamin [Multivitamins Adult 2 tab PO HS 12/04/23 08/23/24 Gummies] Brimonidine Tartrate [Alphagan P 1 drop BOTH EYES BID 02/02/24 08/23/24 0.2% Ophth Soln] Fluticasone Nasal [place] [Flonase 2 spray EA NOSTRIL HS 02/02/24 08/23/24 Nasal [place]] Artificial Tears-Hypromellose 1 drop BOTH EYES TID PRN 03/10/24 08/23/24 [Artificial Tear Drops] Potassium Chloride ER [K-Dur 20] 20 meq PO HS 03/15/24 08/23/24 Cholecalciferol (Vitamin D3) 50 mcg PO HS 05/03/24 08/23/24 [Vitamin D3 (50 Mcg = 2000 Iu)] Ferrous Sulfate [Iron (65 MG 325 mg PO HS 05/03/24 08/23/24 Elemental)] Ipratropium-Albuterol Nebulize 3 ml INHALATION RT-QID PRN 05/24/24 08/23/24 [Duoneb 0.5 mg-3 mg/3 ml Soln] Previous Rx's Medication Instructions Recorded Aspirin EC [Ecotrin Low Dose] 81 mg PO HS #90 tab 05/25/24 Atorvastatin [Lipitor] 80 mg PO HS #90 tab 05/25/24 Isosorbide Mononitrate ER [Imdur] 30 mg PO HS #90 tab 05/25/24 Magnesium Oxide [Mag-Ox] 400 mg PO HS #90 tab 05/25/24 Metoprolol Succinate (ER) [Toprol 50 mg PO HS #90 tab 05/25/24 XL] Ticagrelor [Brilinta] 90 mg PO HS #90 tab 05/25/24 amLODIPine [Norvasc] 5 mg PO DAILY #90 tab 05/25/24 cloNIDine HCL [Catapres] 0.1 mg PO TID #180 tab 05/25/24 Allergies Allergy/AdvReac Type Severity Reaction Status Date / Time [place] And Derivatives Allergy Rash/Hives Verified 08/26/24 18:55 [[place]] latex Allergy Rash/Hives Verified 08/26/24 18:55 cinnamon AdvReac Nausea Verified 08/26/24 18:55 gabapentin AdvReac Dizziness Verified 08/26/24 18:55 Influenza Virus Vaccines AdvReac Nausea & Verified 08/26/24 18:55 Vomiting morphine AdvReac Nausea & Verified 08/26/24 18:55 Vomiting sucralfate [From Carafate] AdvReac Abdominal Verified 08/26/24 18:55 Pain tomato AdvReac Diarrhea Verified 08/26/24 18:55 Review of Systems ROS Statement: Those systems with pertinent positive or pertinent negative responses have been documented in the HPI. ROS Other: All systems not noted in ROS Statement are negative. Past Medical History Past Medical History: Asthma, Coronary Artery Disease (CAD), COPD, CVA/TIA, Eye Disorder, Hypertension, Liver Disease, Myocardial Infarction ([place]), Seizure Disorder, Vascular Disorder Additional Past Medical History / Comment(s): Pt recently admitted to [facility] for diarrhea, ETOH abuse. 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 soon Last Myocardial Infarction Date:: aug 2018 History of Any Multi-Drug Resistant Organisms: None Reported Past Surgical History: Cholecystectomy, Heart Catheterization, Orthopedic Surgery Additional Past Surgical History / Comment(s): L caratid stent, bilateral knee surgeries for tendon repair, bartholian cyst removed bilateral wrists, cataracts Past Anesthesia/Blood Transfusion Reactions: Motion Sickness Additional Past Anesthesia/Blood Transfusion Reaction / Comment(s): Pt has received blood without reaction. Past Psychological History: Anxiety, Depression Smoking Status: Current every day smoker Past Alcohol Use History: Abuse, Daily, Heavy Past Drug Use History: Marijuana - Past Family History Mother Family Medical History: Cancer, Congestive Heart Failure (CHF), Coronary Artery Disease (CAD), Hyperlipidemia Additional Family Medical History / Comment(s): Mother at age 85 from lung cancer. Father Family Medical History: Cancer, COPD Additional Family Medical History / Comment(s): Father at age 63 from lung cancer. Brother(s) Additional Family Medical History / Comment(s): Patient has a total of 7 siblings. 5 are alive without any major medical problems she is aware of. 2 siblings have one from alcohol abuse and 1. Coronary artery disease. Daughter(s) Family Medical History: No Reported History Additional Family Medical History / Comment(s): Patient has one daughter with no major medical problems. General Exam - General Exam Comments Initial Comments: GENERAL: Patient is well-developed and well-nourished. Patient is nontoxic and well- hydrated and is in no acute distress. Patient does have the smell of alcohol on her. ENT: Neck is soft and supple. No significant lymphadenopathy is noted. Oropharynx is clear. Moist mucous membranes. Neck has full range of motion without eliciting any pain. EYES: The sclera were anicteric and conjunctiva were pink and moist. Extraocular movements were intact and pupils were equal round and reactive to light. Eyelids were unremarkable. PULMONARY: Unlabored respirations. Good breath sounds bilaterally. No audible rales rhonchi or wheezing was noted. CARDIOVASCULAR: There is a regular rate and rhythm without any murmurs gallops or rubs. ABDOMEN: Soft and nontender with normal bowel sounds. SKIN: Skin is clear with no lesions or rashes and otherwise unremarkable. NEUROLOGIC: Patient is alert and oriented x3. Cranial nerves II through XII are grossly intact. Motor and sensory are also intact. Normal speech, volume and content. Symmetrical smile. MUSCULOSKELETAL: Normal extremities with adequate strength and full range of motion. No lower extremity swelling or edema. No calf tenderness. LYMPHATICS: No significant lymphadenopathy is noted PSYCHIATRIC: Normal psychiatric evaluation. Patient denies suicidal homicidal ideations Course Vital Signs 08/26/24 18:50 Temperature 97.6 F Pulse Rate 93 Respiratory 18 Rate Blood Pressure 114/82 O2 Sat by Pulse 98 Oximetry Medical Decision Making - Medical Decision Making Was pt. sent in by a medical professional or institution (YESSY Lloyd, SEISMIC SURVEY ASSISTANT, urgent care, hospital, or long-term...) When possible be specific @ -No Did you speak to anyone other than the patient for history (EMS, parent, family, police, friend...)? What history was obtained from this source @ -No Did you review nursing and triage notes (agree or disagree)? Why? @ -I reviewed and agree with nursing and triage notes Were old charts reviewed (outside hosp., previous admission, EMS record, old EKG, old radiological studies, urgent care reports/EKG's, long-term records)? Report findings @ -No old charts were reviewed Differential Diagnosis? @ -Differential Back Pain: Strain, zoster, cauda equina syndrome, epidural abscess, vertebral osteomyelitis, discitis, fracture, subluxation, disc herniation, DJD, spinal stenosis, dissection, AAA, pancreatitis, peptic ulcer disease, pyelonephritis, kidney stone, this is not meant to be an all-inclusive list. EKG interpreted by me (3pts min.). @ -As above X-rays interpreted by me (1pt min.). @ -None done CT interpreted by me (1pt min.). @ -None done U/S interpreted by me (1pt. min.). @ -None done What testing was considered but not performed or refused? (CT, X-rays, U/S, labs)? Why? @ -None What meds were considered but not given or refused? Why? @ -None Did you discuss the management of the patient with other professionals (professionals i.e. YESSY Lloyd, SEISMIC SURVEY ASSISTANT, lab, RT, psych nurse, medical social consultant, oncology coordinator, teacher, police officer crime prevention, immigration case worker)? Give summary @ -No Was smoking cessation discussed for >3mins.? @ -No Was critical care preformed (if so, how long)? @ -No Were there social determinants of health that impacted care today? How? (Homelessness, low income, unemployed, alcoholism, drug addiction, transportation, low edu. Level, literacy, decrease access to med. care, snf, rehab)? @ -No Was there de-escalation of care discussed even if they declined (Discuss DNR or withdrawal of care, Hospice)? DNR status @ -No What co-morbidities impacted this encounter? (DM, HTN, Smoking, COPD, CAD, Ca ncer, CVA, ARF, Chemo, Hep., AIDS, mental health diagnosis, sleep apnea, morbid obesity)? @ -None Was patient admitted / discharged? Hospital course, mention meds given and route, prescriptions, significant lab abnormalities, going to OR and other pertinent info. @ -Patient received Toradol for her back pain. Patient was clinically sober and will be discharged home to follow-up with her primary medical care doctor Undiagnosed new problem with uncertain prognosis? @ -No Drug Therapy requiring intensive monitoring for toxicity (Heparin, Nitro, Insulin, Cardizem)? @ -No Were any procedures done? @ -No Diagnosis/symptom? @ -Chronic back pain Acute, or Chronic, or Acute on Chronic? @ -Chronic Uncomplicated (without systemic symptoms) or Complicated (systemic symptoms)? @ -Uncomplicated Side effects of treatment? @ -No Exacerbation, Progression, or Severe Exacerbation? @ -No Poses a threat to life or bodily function? How? (Chest pain, [place], [place], pneumonia, PE, COPD, DKA, ARF, appy, cholecystitis, CVA, Diverticulitis, Homicidal, Suicidal, threat to staff... and all critical care pts) @ -No Diagnosis/symptom? @ -Alcohol intoxication Acute, or Chronic, or Acute on Chronic? @ -Acute Uncomplicated (without systemic symptoms) or Complicated (systemic symptoms)? @ -Complicated Side effects of treatment? @ -None Exacerbation, Progression, or Severe Exacerbation] @ -No Poses a threat to life or bodily function? @ -No Disposition Clinical Impression: Chronic back pain, Alcohol intoxication Disposition: HOME SELF-CARE Condition: Good Instructions (If sedation given, give patient instructions): Chronic Back Pain (DC), Alcohol Intoxication (ED) Is patient prescribed a controlled substance at d/c from ED?: No Referrals: Miya Johnson MD [Primary Care Provider] - 1-2 days Time of Disposition: 20:04
[2024-08-26] MEDS: KETOROLAC 15 MG/ML 1 ML VIAL IM STA (19:46)
[2024-08-26] MEDS: KETOROLAC 15 MG/ML 1 ML VIAL IVP STA (20:07)
[2024-08-26 23:44] VITALS: BP 119/80; PULSE 101; RESP 16; TEMP 97.9
== END 2024-08-26 23:45 | disposition home or self-care (01) ==
LOC: EC 18:49
CPT/HCPCS: 82075; 96374; 99283

== ENCOUNTER 2024-09-04 12:30 | Emergency (ER) | payer OTHER ==
[2024-09-04 12:38] VITALS: TEMP 98
--- NOTE | 2024-09-04 14:03 | XR ---
EXAMINATION TYPE: XR chest 2V DATE OF EXAM: 09/04/2024 COMPARISON: 08/25/2024 HISTORY: Shortness of breath TECHNIQUE: Frontal and lateral views of the chest are obtained. FINDINGS: Scattered senescent parenchymal changes noted. Hyperinflation compatible with COPD. No evidence for infiltrate. No evidence for atelectasis. Heart size is stable. Mediastinal structures are stable and grossly unremarkable. No evidence for hilar prominence. Degenerative changes dorsal spine. IMPRESSION: 1. No evidence for acute pulmonary disease. [facility], , 09/04/2024 2:00 PM
--- NOTE | 2024-09-04 14:11 | XR ---
EXAMINATION TYPE: XR lumbar spine 2 or 3V DATE OF EXAM: 09/04/2024 CLINICAL HISTORY: pain TECHNIQUE: Three views of the lumbar spine are submitted. COMPARISON: 03/16/2024 FINDINGS: There are 5 lumbar type vertebral bodies identified. The lumbar spine shows satisfactory alignment w ithout evidence of acute fracture or dislocation. Vertebral body heights are within normal limits. Severe multilevel degenerative disc disease unchanged from prior study. Anterior superior endplate lo ss of height of L4 chronic in nature. Moderate facet joint arthropathy. The overlying soft tissue ap pears unremarkable. IMPRESSION: No acute fracture or dislocation is seen in the lumbar spine. ICD 10 NO FRACTURE, INITIAL EVALUATION [facility], , 09/04/2024 2:09 PM
--- NOTE | 2024-09-04 14:38 | ED ---
Fall HPI - General Chief Complaint: Fall Stated Complaint: fall, ETOH Time Seen by Provider: 09/04/24 12:32 Source: patient, EMS, RN notes reviewed Mode of arrival: EMS Limitations: no limitations - History of Present Illness Initial Comments: 64-year-old female presents emerged part via EMS chief complaint of a fall. Patient is well-known to the emergency department and states that she tripped and fell onto her back she complains of low back pain no head injury loss conscious. She denies any bowel, bladder and cons retention no saddle anesthesias no chest pain or shortness of breath she has a chronic cough., Positive bowel - Related Data Home Medications Medication Instructions Recorded Confirmed Budesonide/Formoterol Fumarate 2 puff INHALATION RT-HS 07/29/23 08/23/24 [Symbicort 160-4.5 Mcg Inhaler] Multivitamin [Multivitamins Adult 2 tab PO HS 12/04/23 08/23/24 Gummies] Brimonidine Tartrate [Alphagan P 1 drop BOTH EYES BID 02/02/24 08/23/24 0.2% Ophth Soln] Fluticasone Nasal [place] [Flonase 2 spray EA NOSTRIL HS 02/02/24 08/23/24 Nasal [place]] Artificial Tears-Hypromellose 1 drop BOTH EYES TID PRN 03/10/24 08/23/24 [Artificial Tear Drops] Potassium Chloride ER [K-Dur 20] 20 meq PO HS 03/15/24 08/23/24 Cholecalciferol (Vitamin D3) 50 mcg PO HS 05/03/24 08/23/24 [Vitamin D3 (50 Mcg = 2000 Iu)] Ferrous Sulfate [Iron (65 MG 325 mg PO HS 05/03/24 08/23/24 Elemental)] Ipratropium-Albuterol Nebulize 3 ml INHALATION RT-QID PRN 05/24/24 08/23/24 [Duoneb 0.5 mg-3 mg/3 ml Soln] Previous Rx's Medication Instructions Recorded Aspirin EC [Ecotrin Low Dose] 81 mg PO HS #90 tab 05/25/24 Atorvastatin [Lipitor] 80 mg PO HS #90 tab 05/25/24 Isosorbide Mononitrate ER [Imdur] 30 mg PO HS #90 tab 05/25/24 Magnesium Oxide [Mag-Ox] 400 mg PO HS #90 tab 05/25/24 Metoprolol Succinate (ER) [Toprol 50 mg PO HS #90 tab 05/25/24 XL] Ticagrelor [Brilinta] 90 mg PO HS #90 tab 05/25/24 amLODIPine [Norvasc] 5 mg PO DAILY #90 tab 05/25/24 cloNIDine HCL [Catapres] 0.1 mg PO TID #180 tab 05/25/24 Allergies Allergy/AdvReac Type Severity Reaction Status Date / Time [place] And Derivatives Allergy Rash/Hives Verified 09/04/24 12:39 [[place]] latex Allergy Rash/Hives Verified 09/04/24 12:39 cinnamon AdvReac Nausea Verified 09/04/24 12:39 gabapentin AdvReac Dizziness Verified 09/04/24 12:39 Influenza Virus Vaccines AdvReac Nausea & Verified 09/04/24 12:39 Vomiting morphine AdvReac Nausea & Verified 09/04/24 12:39 Vomiting sucralfate [From Carafate] AdvReac Abdominal Verified 09/04/24 12:39 Pain tomato AdvReac Diarrhea Verified 09/04/24 12:39 Review of Systems ROS Statement: Those systems with pertinent positive or pertinent negative responses have been documented in the HPI. ROS Other: All systems not noted in ROS Statement are negative. Past Medical History Past Medical History: Asthma, Coronary Artery Disease (CAD), COPD, CVA/TIA, Eye Disorder, Hypertension, Liver Disease, Myocardial Infarction ([place]), Seizure Disorder, Vascular Disorder Additional Past Medical History / Comment(s): Pt recently admitted to [facility] for diarrhea, ETOH abuse. 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 soon Last Myocardial Infarction Date:: aug 2018 History of Any Multi-Drug Resistant Organisms: None Reported Past Surgical History: Cholecystectomy, Heart Catheterization, Orthopedic Surgery Additional Past Surgical History / Comment(s): L caratid stent, bilateral knee surgeries for tendon repair, bartholian cyst removed bilateral wrists, cataracts Past Anesthesia/Blood Transfusion Reactions: Motion Sickness Additional Past Anesthesia/Blood Transfusion Reaction / Comment(s): Pt has received blood without reaction. Past Psychological History: Anxiety, Depression Smoking Status: Current every day smoker Past Alcohol Use History: Abuse, Daily, Heavy Past Drug Use History: Marijuana - Past Family History Mother Family Medical History: Cancer, Congestive Heart Failure (CHF), Coronary Artery Disease (CAD), Hyperlipidemia Additional Family Medical History / Comment(s): Mother at age 85 from lung cancer. Father Family Medical History: Cancer, COPD Additional Family Medical History / Comment(s): Father at age 63 from lung cancer. Brother(s) Additional Family Medical History / Comment(s): Patient has a total of 7 siblings. 5 are alive without any major medical problems she is aware of. 2 siblings have one from alcohol abuse and 1. Coronary artery disease. Daughter(s) Family Medical History: No Reported History Additional Family Medical History / Comment(s): Patient has one daughter with no major medical problems. General Exam Limitations: no limitations General appearance: alert, in no apparent distress Head exam: Present: atraumatic, normocephalic, normal inspection ENT exam: Present: normal exam, normal oropharynx, mucous membranes moist Neck exam: Present: normal inspection, full ROM. Absent: tenderness, meningismus, lymphadenopathy Respiratory exam: Present: normal lung sounds bilaterally. Absent: respiratory distress, wheezes, rales, rhonchi, stridor Cardiovascular Exam: Present: regular rate, normal rhythm, normal heart sounds. Absent: systolic murmur, diastolic murmur, rubs, gallop, clicks GI/Abdominal exam: Present: soft, normal bowel sounds. Absent: distended, tenderness, guarding, rebound, rigid Back exam: Present: full ROM, tenderness Neurological exam: Present: alert, oriented X3 Skin exam: Present: warm, dry, intact, normal color. Absent: rash Course Vital Signs 09/04/24 12:35 Temperature 98.0 F Pulse Rate 89 Respiratory 20 Rate Blood Pressure 105/70 O2 Sat by Pulse 97 Oximetry Medical Decision Making - Medical Decision Making Was pt. sent in by a medical professional or institution (, [place], [employer], urgent care, hospital, or correction...) When possible be specific @ -No Did you speak to anyone other than the patient for history (EMS, parent, family, police, friend...)? What history was obtained from this source @ -No Did you review nursing and triage notes (agree or disagree)? Why? @ -I reviewed and agree with nursing and triage notes Were old charts reviewed (outside hosp., previous admission, EMS record, old EKG, old radiological studies, urgent care reports/EKG's, correction records)? Report findings @ -No old charts were reviewed Differential Diagnosis (chest pain, altered mental status, abdominal pain women, abdominal pain men, vaginal bleeding, weakness, fever, dyspnea, syncope, headache, dizziness, GI bleed, back pain, seizure, CVA, palpatations, mental health, musculoskeletal)? @ -fAll, weakness, lumbar fracture EKG interpreted by me (3pts min.). @ -None X-rays interpreted by me (1pt min.). @ -X-ray lumbar spine showing chronic L4 fracture no acute process. Chest x-ray no acute process CT interpreted by me (1pt min.). @ -None done U/S interpreted by me (1pt. min.). @ -None done What testing was considered but not performed or refused? (CT, X-rays, U/S, labs)? Why? @ -None What meds were considered but not given or refused? Why? @ -None Did you discuss the management of the patient with other professionals (professionals i.e. , PA, [employer], lab, RT, psych nurse, manager social services, fruit canner, teacher, custom protection officer, bottle caser)? Give summary @ -No Was smoking cessation discussed for >3mins.? @ -No Was critical care preformed (if so, how long)? @ -No Were there social determinants of health that impacted care today? How? (Homelessness, low income, unemployed, alcoholism, drug addiction, transportation, low edu. Level, literacy, decrease access to med. care, penitentiary, rehab)? @ -No Was there de-escalation of care discussed even if they declined (Discuss DNR or withdrawal of care, Hospice)? DNR status @ -No What co-morbidities impacted this encounter? (DM, HTN, Smoking, COPD, CAD, Cancer, CVA, ARF, Chemo, Hep., AIDS, mental health diagnosis, sleep apnea, morbid obesity)? @ -Alcohol abuse Was patient admitted / discharged? Hospital course, mention meds given and route, prescriptions, significant lab abnormalities, going to OR and other pertinent info. @ -Discharged patient presented after a fall. Patient is awake alert and orientated. Patient has no acute fracture. Patient discharged in stable condition return parameters shakira. Undiagnosed new problem with uncertain prognosis? @ -No Drug Therapy requiring intensive monitoring for toxicity (Heparin, Nitro, Insulin, Cardizem)? @ -No Were any procedures done? @ -No Diagnosis/symptom? @ -Fall, alcohol abuse Acute, or Chronic, or Acute on Chronic? @ -Acute Uncomplicated (without systemic symptoms) or Complicated (systemic symptoms)? @ -Uncomplicated Side effects of treatment? @ -No Exacerbation, Progression, or Severe Exacerbation? @ -No Poses a threat to life or bodily function? How? (Chest pain, [place], [place], pneumonia, PE, COPD, DKA, ARF, appy, cholecystitis, CVA, Diverticulitis, Homicidal, Suicidal, threat to staff... and all critical care pts) @ -No Disposition Clinical Impression: Fall, Alcohol abuse Disposition: HOME SELF-CARE Condition: Stable Additional Instructions: Please return to the Emergency Department if symptoms worsen or any other concerns. Is patient prescribed a controlled substance at d/c from ED?: No Referrals: Miya Johnson MD [Primary Care Provider] - 1-2 days Time of Disposition: 15:40
[2024-09-04 17:06] VITALS: BP 97/67; PULSE 67; RESP 18
== END 2024-09-04 17:06 | disposition home or self-care (01) ==
LOC: EC 12:30
CPT/HCPCS: 71046; 72100; 99284

== ENCOUNTER 2024-09-05 04:26 | Observation (INO) | payer OTHER ==
[2024-09-05] MEDS ORDERED: LORazepam 2 MG/ML INJ IV PRN ×2 (06:13)
--- NOTE | 2024-09-05 06:17 | ED ---
Alcohol HPI - General Chief Complaint: Alcohol Stated Complaint: ETOH Time Seen by Provider: 09/05/24 06:14 Source: patient, EMS, RN notes reviewed Mode of arrival: EMS Limitations: no limitations - History of Present Illness Initial Comments: 64-year-old female presenting to the ER with a chief complaint of a fall and alcohol intoxication. Patient states she took 2 shots yesterday her last drink was around 2 PM. She states she believes she tripped and fell hitting her head. She states she is on the ground for approximately 8 to 10 hours. Patient is complaining of left shoulder, left hip and neck pain. Patient denies any other complaints. - Related Data Home Medications Medication Instructions Recorded Confirmed Budesonide/Formoterol Fumarate 2 puff INHALATION RT-HS 07/29/23 09/05/24 [Symbicort 160-4.5 Mcg Inhaler] Multivitamin [Multivitamins Adult 2 tab PO HS 12/04/23 09/05/24 Gummies] Brimonidine Tartrate [Alphagan P 1 drop BOTH EYES BID 02/02/24 09/05/24 0.2% Ophth Soln] Fluticasone Nasal [place] [Flonase 2 spr EA NOSTRIL HS 02/02/24 09/05/24 Nasal [place]] Artificial Tears-Hypromellose 1 drop BOTH EYES TID PRN 03/10/24 09/05/24 [Artificial Tear Drops] Potassium Chloride ER [K-Dur 20] 20 meq PO HS 03/15/24 09/05/24 Cholecalciferol (Vitamin D3) 50 mcg PO HS 05/03/24 09/05/24 [Vitamin D3 (50 Mcg = 2000 Iu)] Ferrous Sulfate [Iron (65 MG 325 mg PO HS 05/03/24 09/05/24 Elemental)] Ipratropium-Albuterol Nebulize 3 ml INHALATION RT-QID PRN 05/24/24 09/05/24 [Duoneb 0.5 mg-3 mg/3 ml Soln] Previous Rx's Medication Instructions Recorded Aspirin EC [Ecotrin Low Dose] 81 mg PO HS #90 tab 05/25/24 Atorvastatin [Lipitor] 80 mg PO HS #90 tab 05/25/24 Isosorbide Mononitrate ER [Imdur] 30 mg PO HS #90 tab 07/14/24 Magnesium Oxide [Mag-Ox] 400 mg PO HS #90 tab 05/25/24 Metoprolol Succinate (ER) [Toprol 50 mg PO HS #90 tab 05/25/24 XL] Ticagrelor [Brilinta] 90 mg PO HS #90 tab 05/25/24 amLODIPine [Norvasc] 5 mg PO DAILY #90 tab 05/25/24 cloNIDine HCL [Catapres] 0.1 mg PO TID #180 tab 05/25/24 Allergies Allergy/AdvReac Type Severity Reaction Status Date / Time Parker And Derivatives Allergy Rash/Hives Verified 09/05/24 04:33 [Parker] latex Allergy Rash/Hives Verified 09/05/24 04:33 cinnamon AdvReac Nausea Verified 09/05/24 04:33 gabapentin AdvReac Dizziness Verified 09/05/24 04:33 Influenza Virus Vaccines AdvReac Nausea & Verified 09/05/24 04:33 Vomiting morphine AdvReac Nausea & Verified 09/05/24 04:33 Vomiting sucralfate [From Carafate] AdvReac Abdominal Verified 09/05/24 04:33 Pain tomato AdvReac Diarrhea Verified 09/05/24 04:33 Review of Systems ROS Statement: Those systems with pertinent positive or pertinent negative responses have been documented in the HPI. ROS Other: All systems not noted in ROS Statement are negative. Past Medical History Past Medical History: Asthma, Coronary Artery Disease (CAD), COPD, CVA/TIA, Eye Disorder, Hypertension, Liver Disease, Myocardial Infarction ([place]), Seizure Disorder, Vascular Disorder Additional Past Medical History / Comment(s): Pt recently admitted to [facility] for diarrhea, ETOH abuse. 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 soon Last Myocardial Infarction Date:: aug 2018 History of Any Multi-Drug Resistant Organisms: None Reported Past Surgical History: Cholecystectomy, Heart Catheterization, Orthopedic Surgery Additional Past Surgical History / Comment(s): L caratid stent, bilateral knee surgeries for tendon repair, bartholian cyst removed bilateral wrists, cataracts Past Anesthesia/Blood Transfusion Reactions: Motion Sickness Additional Past Anesthesia/Blood Transfusion Reaction / Comment(s): Pt has received blood without reaction. Past Psychological History: Anxiety, Depression Smoking Status: Current every day smoker Past Alcohol Use History: Abuse, Daily, Heavy Past Drug Use History: Marijuana - Past Family History Mother Family Medical History: Cancer, Congestive Heart Failure (CHF), Coronary Artery Disease (CAD), Hyperlipidemia Additional Family Medical History / Comment(s): Mother at age 85 from lung cancer. Father Family Medical History: Cancer, COPD Additional Family Medical History / Comment(s): Father at age 63 from lung cancer. Brother(s) Additional Family Medical History / Comment(s): Patient has a total of 7 siblings. 5 are alive without any major medical problems she is aware of. 2 siblings have one from alcohol abuse and 1. Coronary artery disease. Daughter(s) Family Medical History: No Reported History Additional Family Medical History / Comment(s): Patient has one daughter with no major medical problems. General Exam Limitations: no limitations General appearance: alert, appears intoxicated Head exam: Present: atraumatic, normocephalic, normal inspection Eye exam: Present: normal appearance, PERRL, EOMI. Absent: scleral icterus, conjunctival injection, periorbital swelling Pupils: Present: normal accommodation ENT exam: Present: normal exam, normal oropharynx, mucous membranes moist Neck exam: Present: normal inspection, tenderness (throughout), full ROM Respiratory exam: Present: normal lung sounds bilaterally. Absent: respiratory distress, wheezes, rales, rhonchi, stridor Cardiovascular Exam: Present: regular rate, normal rhythm, normal heart sounds. Absent: systolic murmur, diastolic murmur, rubs, gallop, clicks GI/Abdominal exam: Present: soft, normal bowel sounds. Absent: distended, tenderness, guarding, rebound, rigid Extremities exam: Present: normal inspection, full ROM, tenderness (Scheduled.), normal capillary refill. Absent: pedal edema, joint swelling, calf tenderness Neurological exam: Present: alert, oriented X3, CN II-XII intact Skin exam: Present: warm, dry, intact, normal color. Absent: rash Course Vital Signs 09/05/24 09/05/24 09/05/24 04:27 07:03 09:05 Temperature 97.5 F L Pulse Rate 87 85 85 Respiratory 15 18 Rate Blood Pressure 139/87 154/90 O2 Sat by Pulse 96 95 95 Oximetry - Reevaluation(s) Reevaluation #1: 09/05/24 10:[address] Jackson, [facility], for admission. Medical Decision Making - Medical Decision Making Was pt. sent in by a medical professional or institution (, [facility], [facility], urgent c are, hospital, or care home...) When possible be specific @ -No Did you speak to anyone other than the patient for history (EMS, parent, family, police, friend...)? What history was obtained from this source @ -No Did you review nursing and triage notes (agree or disagree)? Why? @ -I reviewed and agree with nursing and triage notes Were old charts reviewed (outside hosp., previous admission, EMS record, old EKG, old radiological studies, urgent care reports/EKG's, care home records)? Report findings @ -No old charts were reviewed Differential Diagnosis (chest pain, altered mental status, abdominal pain women, abdominal pain men, vaginal bleeding, weakness, fever, dyspnea, syncope, headache, dizziness, GI bleed, back pain, seizure, CVA, palpatations, mental health, musculoskeletal)? @ -Fracture, dislocation, contusion, hematoma, intracranial hemorrhage, concussion, abrasion, laceration this list does not like to be all-inclusive EKG interpreted by me (3pts min.). @ -None done X-rays interpreted by me (1pt min.). @ -Left hip x-ray interpreted me negative for acute process. Left shoulder x- ray interpreted by me negative for acute osseous process. CT interpreted by me (1pt min.). @ -CT brain C-spine negative for acute process U/S interpreted by me (1pt. min.). @ -None done What testing was considered but not performed or refused? (CT, X-rays, U/S, labs)? Why? @ -None What meds were considered but not given or refused? Why? @ -None Did you discuss the management of the patient with other professionals (professionals i.e. , [facility], [facility], lab, RT, psych nurse, rn social work, criminal defense lawyer, teacher, consumer safety officer, casework manager)? Give summary @ -Yes, [facility] Was smoking cessation discussed for >3mins.? @ -No Was critical care preformed (if so, how long)? @ -No Were there social determinants of health that impacted care today? How? (Homelessness, low income, unemployed, alcoholism, drug addiction, tra nsportation, low edu. Level, literacy, decrease access to med. care, long term, rehab)? @ -Alcoholism Was there de-escalation of care discussed even if they declined (Discuss DNR or withdrawal of care, Hospice)? DNR status @ -No What co-morbidities impacted this encounter? (DM, HTN, Smoking, COPD, CAD, Cancer, CVA, ARF, Chemo, Hep., AIDS, mental health diagnosis, sleep apnea, morbid obesity)? @ -Alcoholism Was patient admitted / discharged? Hospital course, mention meds given and route, prescriptions, significant lab abnormalities, going to OR and other pertinent info. @ -Admitted. 64-year-old female presented to the ER with a chief complaint of a fall and alcohol intoxication. History and physical exam completed. Vitals within normal limits. Patient had no signs of acute distress but is intoxicated on exam. Due to concern of head injury CT brain will be performed. CT brain/C- spine negative. Left shoulder and hip x-ray negative. Serum alcohol 299. Patient started on CIWA and Ativan protocol. [facility] and [facility] intoxication. Patient agreeable. Case discussed with ED attending, Dr. Graham. Undiagnosed new problem with uncertain prognosis? @ -No Drug Therapy requiring intensive monitoring for toxicity (Heparin, Nitro, Insulin, Cardizem)? @ -No Were any procedures done? @ -No Diagnosis/symptom? @ -Alcohol intoxication/fall Acute, or Chronic, or Acute on Chronic? @ -Acute Uncomplicated (without systemic symptoms) or Complicated (systemic symptoms)? @ -Complicated Side effects of treatment? @ -No Exacerbation, Progression, or Severe Exacerbation? @ -No Poses a threat to life or bodily function? How? (Chest pain, [place], [place], pneumonia, PE, COPD, DKA, ARF, appy, cholecystitis, CVA, Diverticulitis, Homicidal, Suicidal, threat to staff... and all critical care pts) @ -Yes, alcohol withdrawls can lead to seizures. - Lab Data Result diagrams: 09/05/24 06:53 09/05/24 06:53 Lab Results 09/05/24 09/05/24 Range/Units 06:53 06:53 WBC 7.0 (3.8-10.6) k/uL RBC 4.41 (3.80-5.40) m/uL Hgb 13.5 (11.4-16.0) gm/dL Hct 42.0 (34.0-46.0) % MCV 95.1 (80.0-100.0) fL MCH 30.6 (25.0-35.0) pg MCHC 32.1 (31.0-37.0) g/dL RDW 17.1 H (11.5-15.5) % Plt Count 152 (150-450) k/uL MPV 8.0 Neutrophils % 38 % Lymphocytes % 48 % Monocytes % 6 % Eosinophils % 2 % Basophils % 1 % Neutrophils # 2.7 (1.3-7.7) k/uL Lymphocytes # 3.4 (1.0-4.8) k/uL Monocytes # 0.4 (0-1.0) k/uL Eosinophils # 0.1 (0-0.7) k/uL Basophils # 0.1 (0-0.2) k/uL Anisocytosis Slight Sodium 146 H (137-145) mmol/L Potassium 5.0 (3.5-5.1) mmol/L Chloride 107 (98-107) mmol/L Carbon Dioxide 30 (22-30) mmol/L Anion Gap 9 mmol/L BUN 14 (7-17) mg/dL Creatinine 0.51 L (0.52-1.04) mg/dL Est GFR (CKD-EPI)AfAm >90 (>60 ml/min/1.73 sqM) Est GFR (CKD-EPI)NonAf >90 (>60 ml/min/1.73 sqM) Glucose 95 (74-99) mg/dL Calcium 8.9 (8.4-10.2) mg/dL Magnesium 2.0 (1.6-2.3) mg/dL Total Bilirubin 0.5 (0.2-1.3) mg/dL AST 54 H (14-36) U/L ALT 34 (4-34) U/L Alkaline Phosphatase 104 (38-126) U/L Creatine Kinase 72 (30-135) U/L Total Protein 7.5 (6.3-8.2) g/dL Albumin 4.4 (3.5-5.0) g/dL Serum Alcohol 299 H* mg/dL - Radiology Data Radiology results: report reviewed, image reviewed Disposition Clinical Impression: Alcohol intoxication, Fall Disposition: ADMITTED IP TO THIS [facility] Condition: Stable Referrals: Miya Johnson MD [Primary Care Provider] - 1-2 days Time of Disposition: 10:08
[2024-09-05] MEDS: SODIUM CHLORIDE 0.9% 1,000 ML IV STA (06:54)
[2024-09-05] MEDS: THIAMINE 100 MG/ML 2 ML VIAL IM STA (06:55)
[2024-09-05 07:42] LABS: ALT 34 U/L (4-34); African American GFR (CKD) >90 (>60 ml/min/1.73 sqM); Anion Gap 9 mmol/L; Blood Urea Nitrogen 14 mg/dL (7-17); Calcium 8.9 mg/dL (8.4-10.2); Carbon Dioxide 30 mmol/L (22-30); Chloride 107 mmol/L (98-107); Creatine Kinase 72 U/L (30-135); Glucose 95 mg/dL (74-99); Non-African American GFR(CKD) >90 (>60 ml/min/1.73 sqM); Sodium 146 mmol/L (137-145); Total Bilirubin 0.5 mg/dL (0.2-1.3)
[2024-09-05 07:52] LABS: Alcohol 299 mg/dL
[2024-09-05 07:53] LABS: AST 54 U/L (14-36); Albumin 4.4 g/dL (3.5-5.0); Alkaline Phosphatase 104 U/L (38-126); Anisocytosis Slight; Basophils # (A) 0.1 k/uL (0-0.2); Basophils % (A) 1 %; Eosinophils # (A) 0.1 k/uL (0-0.7); Eosinophils % (A) 2 %; HGB 13.5 gm/dL (11.4-16.0); Lymphocytes # (A) 3.4 k/uL (1.0-4.8); Lymphocytes % (A) 48 %; MCH 30.6 pg (25.0-35.0); MCHC 32.1 g/dL (31.0-37.0); MCV 95.1 fL (80.0-100.0); Monocytes # (A) 0.4 k/uL (0-1.0); Monocytes % (A) 6 %; Neutrophils # (A) 2.7 k/uL (1.3-7.7); Neutrophils % (A) 38 %; Platelet Count 152 k/uL (150-450); RBC 4.41 m/uL (3.80-5.40); RDW 17.1 % (11.5-15.5); Total Protein 7.5 g/dL (6.3-8.2)
[2024-09-05] MEDS ORDERED: ACETAMINOPHEN TAB 325 MG TAB PO PRN (09:25)
[2024-09-05] MEDS ORDERED: NALOXONE 0.4 MG/ML 1 ML VIAL IV PRN (09:25)
--- NOTE | 2024-09-05 09:27 | CT ---
EXAMINATION TYPE: CT brain joeline wo con DATE OF EXAM: 09/05/2024 COMPARISON: 08/25/2024 HISTORY: Fall, possible head injury CT DLP: 1270.[address] of the brain was performed. The ventricles, basal cisterns and sulci overlying the cerebral convexities demonstrate mild enlargem ent. Remote insult high left parietal lobe. There is no evidence for intracranial hemorrhage or sulcal effacement. There is decreased attenuatio n about the periventricular white matter and deep white matter of both cerebral hemispheres, compatib le with chronic small vessel ischemia. No mass effects are seen. Stable 12 mm colloid cyst at the level of the foramen of Sky. If symptoms persist consider MRI. Osseous calvarium is intact. IMPRESSION: 1. Age related atrophic and chronic small vessel ischemic change without acute intracranial process seen at this time. CT Cervical Spine: Unenhanced CT of the cervical spine was performed with bone and soft tissue window settings submitted . Coronal and sagittal reconstruction is obtained. There is normal alignment and prevertebral soft tissues. No evidence for acute cervical fracture . Scattered degenerative disc disease and spondylosis. Biapical scarring. IMPRESSION: 1. No evidence for acute fracture or subluxation of the cervical spine. [facility], , 09/05/2024 7:57 AM
--- NOTE | 2024-09-05 09:28 | XR ---
EXAMINATION TYPE: XR shoulder complete LT DATE OF EXAM: 09/05/2024 CLINICAL HISTORY: pain COMPARISON: 07/30/2020 TECHNIQUE: Three views of the left shoulder are obtained. FINDINGS: There is no acute fracture/dislocation evident. The acromioclavicular and glenohumeral claudia int spaces appear within normal limits. The visualized ribs are intact and unremarkable. IMPRESSION: 1. There is no acute fracture or dislocation. ICD 10 NO FRACTURE, INITIAL EVALUATION [facility], , 09/05/2024 8:45 AM
--- NOTE | 2024-09-05 09:28 | XR ---
EXAMINATION TYPE: XR Hip Complete LT DATE OF EXAM: 09/05/2024 CLINICAL HISTORY: pain TECHNIQUE: AP and frogleg views of the left hip are obtained. COMPARISON: None. FINDINGS: There is no acute fracture/dislocation evident. The joint space appears within normal li mits. The overlying soft tissue appears unremarkable. IMPRESSION: 1. There is no acute fracture or dislocation.ICD 10 NO FRACTURE, INITIAL EVALUATION [facility], , 09/05/2024 8:44 AM
[2024-09-05] MEDS: LORazepam 2 MG/ML INJ IV PRN (10:40)
[2024-09-05] MEDS ORDERED: IPRATROPIUM-ALBUTEROL 3 ML NEB INHALATION PRN (11:09)
[2024-09-05] MEDS ORDERED: ARTIFICIAL TEARS-HYPROMELLOSE DROPS 15 ML BTL BOTH EYES PRN (11:09)
[2024-09-05] MEDS: SODIUM CHLORIDE 0.9% 1,000 ML IV SCH (11:44)
[2024-09-05] MEDS: amLODIPine 5 MG TAB PO SCH (11:44)
[2024-09-05 16:21] LABS: Appearance,Urine Clear (Clear); Bilirubin,Urine Negative (Negative); Blood,Urine Negative (Negative); Color,Urine Colorless; Glucose,Urine (UA) Negative (Negative); Ketones,Urine Negative (Negative); Leukocyte Esterase,Urine Negative (Negative); Nitrite,Urine Negative (Negative); Protein,Urine Negative (Negative); Specific Gravity,Urine 1.014 (1.001-1.035); Urobilinogen,Urine <2.0 mg/dL (<2.0)
[2024-09-05] MEDS: ONDANSETRON 4 MG/2 ML VIAL IVP PRN (18:04)
[2024-09-05] MEDS: SYMBICORT 160-4.5 MCG INHALER INHALATION SCH (19:44)
--- NOTE | 2024-09-05 20:22 | P.HPIM ---
History of Present Illness H&P Date: 09/05/24 Chief Complaint: Alcohol intoxication Patient is a 64-year-old male with a past medical history of hypertension, history of CVA/TIA with right-sided weakness/speech issues, COPD, coronary artery disease and a prior cardiac catheterization no PCI, IBS, chronic back pain, history of falls, prior history of left carotid stenting, anxiety/depression currently everyday smoker and heavy alcohol use and marijuana use was brought to the hospital by EMS due to fall and alcohol intoxication. Patient had multiple admissions for similar complaints and intoxication. Patient states that he took about 2 shots of vodka this morning and was in the living room. Patient turned to the side and wants to go upstairs to her bedroom and suddenly tripped over and fell hitting her head. She was fell on her left side. She was brought to ER by EMS. Patient was intoxicated on admission. CT head and cervical spine showed is related to atrophic and chronic small vessel ischemic changes without acute intracranial process seen at this time. No evidence of acute fracture or dislocation of the cervical spine. X-ray of the hip showed there is no acute fracture or dislocation. Shoulder x-ray showed there is no acute fracture or dislocation. Laboratory data showed WBC 7.0 hemoglobin 13.9 platelets 152 and RDW 17.1 Sodium 146 potassium 5.0 chloride 107 bicarb is 30 BUN 14 and creatinine 0.51 blood sugar 95 AST 54 ALT 34 and alk phos 104 albumin 4.4 Urinalysis is negative for infection. Serum alcohol level was 299 Review of Systems Complete review of systems could not be obtained from the patient except as per HPI Past Medical History Past Medical History: Asthma, Coronary Artery Disease (CAD), COPD, CVA/TIA, Eye Disorder, Hypertension, Liver Disease, Myocardial Infarction ([place]), Seizure Disorder, Vascular Disorder Additional Past Medical History / Comment(s): Pt recently admitted to [facility] for diarrhea, ETOH abuse. 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 soon Last Myocardial Infarction Date:: aug 2018 History of Any Multi-Drug Resistant Organisms: None Reported Past Surgical History: Cholecystectomy, Heart Catheterization, Orthopedic Surgery Additional Past Surgical History / Comment(s): L caratid stent, bilateral knee surgeries for tendon repair, bartholian cyst removed bilateral wrists, cataracts Past Anesthesia/Blood Transfusion Reactions: Motion Sickness Additional Past Anesthesia/Blood Transfusion Reaction / Comment(s): Pt has received blood without reaction. Past Psychological History: Anxiety, Depression Smoking Status: Current every day smoker Past Alcohol Use History: Abuse, Daily, Heavy Past Drug Use History: Marijuana - Past Family History Mother Family Medical History: Cancer, Congestive Heart Failure (CHF), Coronary Artery Disease (CAD), Hyperlipidemia Additional Family Medical History / Comment(s): Mother at age 85 from lung cancer. Father Family Medical History: Cancer, COPD Additional Family Medical History / Comment(s): Father at age 63 from lung cancer. Brother(s) Additional Family Medical History / Comment(s): Patient has a total of 7 siblings. 5 are alive without any major medical problems she is aware of. 2 siblings have one from alcohol abuse and 1. Coronary artery disease. Daughter(s) Family Medical History: No Reported History Additional Family Medical History / Comment(s): Patient has one daughter with no major medical problems. Medications and Allergies Home Medications Medication Instructions Recorded Confirmed Type Budesonide/Formoterol Fumarate 2 puff INHALATION RT-HS 07/29/23 09/05/24 History [Symbicort 160-4.5 Mcg Inhaler] Multivitamin [Multivitamins Adult 2 tab PO HS 12/04/23 09/05/24 History Gummies] Brimonidine Tartrate [Alphagan P 1 drop BOTH EYES BID 02/02/24 09/05/24 History 0.2% Ophth Soln] Fluticasone Nasal [place] [Flonase 2 spr EA NOSTRIL HS 02/02/24 09/05/24 History Nasal [place]] Artificial Tears-Hypromellose 1 drop BOTH EYES TID PRN 03/10/24 09/05/24 History [Artificial Tear Drops] Potassium Chloride ER [K-Dur 20] 20 meq PO HS 03/15/24 09/05/24 History Cholecalciferol (Vitamin D3) 50 mcg PO HS 05/03/24 09/05/24 History [Vitamin D3 (50 Mcg = 2000 Iu)] Ferrous Sulfate [Iron (65 MG 325 mg PO HS 05/03/24 09/05/24 History Elemental)] Ipratropium-Albuterol Nebulize 3 ml INHALATION RT-QID PRN 05/24/24 09/05/24 History [Duoneb 0.5 mg-3 mg/3 ml Soln] Aspirin EC [Ecotrin Low Dose] 81 mg PO HS #90 tab 05/25/24 09/05/24 Rx Atorvastatin [Lipitor] 80 mg PO HS #90 tab 05/25/24 09/05/24 Rx Isosorbide Mononitrate ER [Imdur] 30 mg PO HS #90 tab 05/25/24 09/05/24 Rx Magnesium Oxide [Mag-Ox] 400 mg PO HS #90 tab 05/25/24 09/05/24 Rx Metoprolol Succinate (ER) [Toprol 50 mg PO HS #90 tab 05/25/24 09/05/24 Rx XL] Ticagrelor [Brilinta] 90 mg PO HS #90 tab 05/25/24 09/05/24 Rx amLODIPine [Norvasc] 5 mg PO DAILY #90 tab 05/25/24 09/05/24 Rx cloNIDine HCL [Catapres] 0.1 mg PO TID #180 tab 05/25/24 09/05/24 Rx Allergies Allergy/AdvReac Type Severity Reaction Status Date / Time Dunn And Derivatives Allergy Rash/Hives Verified 09/05/24 04:33 [Dunn] latex Allergy Rash/Hives Verified 09/05/24 04:33 cinnamon AdvReac Nausea Verified 09/05/24 04:33 gabapentin AdvReac Dizziness Verified 09/05/24 04:33 Influenza Virus Vaccines AdvReac Nausea & Verified 09/05/24 04:33 Vomiting morphine AdvReac Nausea & Verified 09/05/24 04:33 Vomiting sucralfate [From Carafate] AdvReac Abdominal Verified 09/05/24 04:33 Pain tomato AdvReac Diarrhea Verified 09/05/24 04:33 Physical Exam Vitals: Vital Signs Temp Pulse Resp BP Pulse Ox 09/05/24 09:05 85 18 154/90 95 09/05/24 07:03 85 95 09/05/24 04:27 97.5 F L 87 15 139/87 96 Intake and Output 10/09/05/24 09/05/24 22:59 06:59 14:59 Other: Weight 59 kg PHYSICAL EXAMINATION: Patient is lying in the bed,, no acute distress, awake alert and oriented but slightly drowsy... HEENT: Normocephalic. Neck is supple. Pupils reactive. Nostrils clear. Oral cavity is moist. Neck reveals no JVD, carotid bruits, or thyromegaly. CHEST EXAMINATION: Trachea is central. Symmetrical expansion. Lung galvan clear to auscultation and percussion. CARDIAC: Normal S1, S2 with no gallops. No murmurs ABDOMEN: Soft. Bowel sounds normal. No organomegaly. No abdominal bruits. Extremities: reveal no edema. No clubbing or cyanosis Neurologically awake, alert, oriented x 2-3. Able to move all extremities while in bed. Mild right-sided residual weakness. Skin: No rash or skin lesions. Psychiatric: Coperative. Nonsuicidal, could not give history completely Musculoskeletal: No joint swelling or deformity. Results CBC & Chem 7: 09/05/24 06:53 09/05/24 06:53 Labs: Abnormal Lab Results - Last 24 Hours (Table) 09/05/24 09/05/24 Range/Units 06:53 06:53 RDW 17.1 H (11.5-15.5) % Sodium 146 H (137-145) mmol/L Creatinine 0.51 L (0.52-1.04) mg/dL AST 54 H (14-36) U/L Serum Alcohol 299 H* mg/dL Thrombosis Risk Factor Assmnt - DVT/VTE Prophylaxis DVT/VTE Prophylaxis: Pharmacologic Prophylaxis ordered Assessment and Plan Assessment: Acute alcohol intoxication with serum alcohol level 299 Status post mechanical fall likely due to intoxication. Severe alcohol abuse and marijuana use and multiple admissions with similar com plaints Hypertension History of CVA with minimal right-sided residual weakness and speech issues. History of alcohol withdrawal seizures History of [place]/postcardiac catheterization. No PCI IBS Chronic back pain Marijuana use disorder Degenerative disease Anxiety/depression Currently only smoking GI and DVT prophylaxis with Pepcid and heparin subcu Plan: Patient will be continued on telemonitoring. Continue with IV hydration, multivitamins and thiamine. Continue to monitor for alcohol close and continue with CIWA protocol. Active with home blood pressure medications and follow-up closely. Fall precautions and seizure precautions. GI and DVT prophylaxis. Patient will be counseled for alcohol cessation once she is more awake. Time with Patient: Greater than 30
--- NOTE | 2024-09-05 21:39 | XR ---
EXAMINATION TYPE: XR knee complete RT DATE OF EXAM: 09/05/2024 9:10 PM CLINICAL INDICATION: Female, 64 years old with history of fall; pain COMPARISON: 03/09/2024 TECHNIQUE: XR knee complete RT; examined in Frontal, lateral and oblique projections. FINDINGS: Prepetellar soft tissue edema. No evidence of any acute osseous pathology or joint effusi on is noted. Tricompartmental osteophyte formation involving the femoral condyles, tibial plateau and patella. Mild joint space narrowing. Atherosclerosis of the arterial vasculature. IMPRESSION: 1. Prepateller softtissue adema without acute osseous pathology. 2. Mild tricompartmental osteoarthritic changes. [facility], , 09/05/2024 9:36 PM
[2024-09-05] MEDS: METOPROLOL SUCCINATE (ER) 50 MG TAB.ER.24H PO SCH (21:55)
[2024-09-05] MEDS: ISOSORBIDE MONONITRATE ER 30 MG TAB.ER.24H PO SCH (21:55)
[2024-09-05] MEDS: MULTIVITAMINS, THERA 1 EACH TAB PO SCH (21:55)
[2024-09-05] MEDS: ASPIRIN 81 MG PO SCH (21:55)
[2024-09-05] MEDS: ATORVASTATIN 80 MG TAB PO SCH (21:55)
[2024-09-05] MEDS: FAMOTIDINE 20 MG TAB PO SCH (21:55)
[2024-09-05] MEDS: CHOLECALCIFEROL 25 MCG (1000 IU) TABLET PO SCH (21:55)
[2024-09-05] MEDS: MAGNESIUM OXIDE 400 MG TAB PO SCH (21:55)
[2024-09-05] MEDS: FLUTICASONE NASAL 50MCG/SPRAY 16GM BTL EA NOSTRIL SCH (21:56)
[2024-09-05] MEDS: BRIMONIDINE TARTRATE 0.2% DROPS 5 ML BTL BOTH EYES SCH (21:56)
[2024-09-05] MEDS: HEPARIN SODIUM,PORCINE 5,000 UNIT/ML 1 ML VIAL SQ SCH (22:00)
[2024-09-05] MEDS: TICAGRELOR 90 MG TAB PO SCH (22:31)
[2024-09-05] MEDS: cloNIDine HCL 0.1 MG TAB PO SCH (22:32)
[2024-09-06] MEDS: THIAMINE 100 MG TAB PO SCH (09:04)
[2024-09-06 09:30] LABS: Blood Urea Nitrogen 8.7 mg/dL (9.0-27.0); Calcium 8.2 mg/dL (8.7-10.3); Carbon Dioxide 24.5 mmol/L (21.6-31.8); Chloride 102 mmol/L (96-109); Glucose 103 mg/dL (70-110); Potassium 3.6 mmol/L (3.5-5.5); Sodium 139 mmol/L (135-145)
[2024-09-06 10:01] LABS: Basophils # (A) 0.08 X 10*3/uL (0.00-0.10); Basophils % (A) 2.2 %; Eosinophils # (A) 0.05 X 10*3/uL (0.04-0.35); Eosinophils % (A) 1.4 %; HCT 30.1 % (37.2-46.3); HGB 9.7 g/dL (12.0-15.0); Lymphocytes # (A) 1.44 X 10*3/uL (0.90-5.00); Lymphocytes % (A) 39.2 %; MCH 30.7 pg (27.0-32.0); MCHC 32.2 g/dL (32.0-37.0); MCV 95.3 FL (80.0-97.0); Mean Platelet Volume 10.5 FL (9.5-12.2); Monocytes # (A) 0.52 X 10*3/uL (0.20-1.00); Monocytes % (A) 14.2 %; NRBC Per 100 WBC 0 X 10*3/uL (0.00-0.01); Neutrophils # (A) 1.57 X 10*3/uL (1.80-7.70); Neutrophils % (A) 42.7 %; Platelet Count 92 X 10*3/uL (140-440); RBC 3.16 X 10*6/uL (4.10-5.20); RDW 16.9 % (11.5-14.5); Stomatocytes 2+; WBC 3.67 X 10*3/uL (4.50-10.00)
--- NOTE | 2024-09-06 10:14 | P.GSCN ---
History of Present Illness Consult date: 09/06/24 Reason for Consult: Urinary Retention Requesting physician: Hellen Jackson History of present illness: The patient is a 64-year-old white female who tripped and fell, hitting her head, while intoxicated. She fell on her left side and lied on the floor for 8 to 10 hours. She was intoxicated upon presentation to the ER. CT scan of the head and cervical spine showed atrophic and chronic small vessel ischemic prater es, with no fracture or acute intracranial process. She has had multiple prior admissions due to intoxication. Her medical history is significant also for hypertension, COPD, coronary artery disease, and history of stroke resulting in right-sided weakness and speech disorder. When seen in the ER, the patient was straight catheterized with a return of approximately 600 cc. She denies any prior history of urolithiasis. She has been treated for UTIs, though not frequently. Prior to admission, she was experiencing significant urinary frequency (every 15 minutes), and nocturia (every 2 hours). She was experiencing urgency with rare urge incontinence. She denies dysuria and hematuria, but she has been experiencing "pressure". Review of Systems - Genitourinary Genitourinary: Reports as per HPI Past Medical History Past Medical History: Asthma, Coronary Artery Disease (CAD), COPD, CVA/TIA, Eye Disorder, Hypertension, Liver Disease, Myocardial Infarction (NM), Seizure Disorder, Vascular Disorder Additional Past Medical History / Comment(s): Pt recently admitted to [facility] for diarrhea, ETOH abuse. 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/speech issues, ETOH abuse/withdrawals/seizures/alcoholic cirrhosis/ascities with paracentesis, balance problems, FALLS, anemia, gastritis, IBS, chronic back pain, DDD, L1/L4 vertebral fractures from falls, bilateral leg and R arm nerve damage, pt had L carotid stenting, dysphagia @times, cataract surg, ulcer Last Myocardial Infarction Date:: aug 2018 History of Any Multi-Drug Resistant Organisms: None Reported Past Surgical History: Cholecystectomy, Heart Catheterization, Orthopedic Surgery Additional Past Surgical History / Comment(s): L caratid stent, bilateral knee surgeries for tendon repair, bartholian cyst removed bilateral wrists, cataracts Past Anesthesia/Blood Transfusion Reactions: Motion Sickness Additional Past Anesthesia/Blood Transfusion Reaction / Comm: Pt has received blood without reaction. Past Psychological History: Anxiety, Depression Additional Psychological History / Comment(s): She uses a walker to ambulate. She has a nebulizer. She no longer drives, Pt. manages her own meds. Smoking Status: Current every day smoker Past Alcohol Use History: Abuse, Daily, Heavy Additional Past Alcohol Use History / Comment(s): Pt started smoking as a teen and has cut down to 1/2 pack per day. Drinks a few alcoholic drinks daily. Past Drug Use History: Marijuana Additional Drug Use History / Comment(s): Pt has medical marijuana, reports she has not used it in a while. (Doesn't like the way it makes her feel) - Past Family History Mother Family Medical History: Cancer, Congestive Heart Failure (CHF), Coronary Artery Disease (CAD), Hyperlipidemia Additional Family Medical History / Comment(s): Mother at age 85 from lung cancer. Father Family Medical History: Cancer, COPD Additional Family Medical History / Comment(s): Father at age 63 from lung cancer. Brother(s) Additional Family Medical History / Comment(s): Patient has a total of 7 siblings. 5 are alive without any major medical problems she is aware of. 2 siblings have one from alcohol abuse and 1. Coronary artery disease. Daughter(s) Family Medical History: No Reported History Additional Family Medical History / Comment(s): Patient has one daughter with no major medical problems. Medications and Allergies Home Medications Medication Instructions Recorded Confirmed Type Budesonide/Formoterol Fumarate 2 puff INHALATION RT-HS 07/29/23 09/05/24 History [Symbicort 160-4.5 Mcg Inhaler] Multivitamin [Multivitamins Adult 2 tab PO HS 12/04/23 09/05/24 History Gummies] Brimonidine Tartrate [Alphagan P 1 drop BOTH EYES BID 02/02/24 09/05/24 History 0.2% Ophth Soln] Fluticasone Nasal [place] [Flonase 2 spr EA NOSTRIL HS 02/02/24 09/05/24 History Nasal [place]] Artificial Tears-Hypromellose 1 drop BOTH EYES TID PRN 03/10/24 09/05/24 History [Artificial Tear Drops] Potassium Chloride ER [K-Dur 20] 20 meq PO HS 03/15/24 09/05/24 History Cholecalciferol (Vitamin D3) 50 mcg PO HS 05/03/24 09/05/24 History [Vitamin D3 (50 Mcg = 2000 Iu)] Ferrous Sulfate [Iron (65 MG 325 mg PO HS 05/03/24 09/05/24 History Elemental)] Ipratropium-Albuterol Nebulize 3 ml INHALATION RT-QID PRN 05/24/24 09/05/24 History [Duoneb 0.5 mg-3 mg/3 ml Soln] Aspirin EC [Ecotrin Low Dose] 81 mg PO HS #90 tab 05/25/24 09/05/24 Rx Atorvastatin [Lipitor] 80 mg PO HS #90 tab 05/25/24 09/05/24 Rx Isosorbide Mononitrate ER [Imdur] 30 mg PO HS #90 tab 05/25/24 09/05/24 Rx Magnesium Oxide [Mag-Ox] 400 mg PO HS #90 tab 05/25/24 09/05/24 Rx Metoprolol Succinate (ER) [Toprol 50 mg PO HS #90 tab 05/25/24 09/05/24 Rx XL] Ticagrelor [Brilinta] 90 mg PO HS #90 tab 05/25/24 09/05/24 Rx amLODIPine [Norvasc] 5 mg PO DAILY #90 tab 05/25/24 09/05/24 Rx cloNIDine HCL [Catapres] 0.1 mg PO TID #180 tab 05/25/24 09/05/24 Rx Allergies Allergy/AdvReac Type Severity Reaction Status Date / Time Hodgeman And Derivatives Allergy Rash/Hives Verified 09/05/24 04:33 [Hodgeman] latex Allergy Rash/Hives Verified 09/05/24 04:33 cinnamon AdvReac Nausea Verified 09/05/24 04:33 gabapentin AdvReac Dizziness Verified 09/05/24 04:33 Influenza Virus Vaccines AdvReac Nausea & Verified 09/05/24 04:33 Vomiting morphine AdvReac Nausea & Verified 09/05/24 04:33 Vomiting sucralfate [From Carafate] AdvReac Abdominal Verified 09/05/24 04:33 Pain tomato AdvReac Diarrhea Verified 09/05/24 04:33 Surgical - Exam Vital Signs Temp Pulse Resp BP Pulse Ox 97.5 F L 87 15 139/87 96 09/05/24 04:27 09/05/24 04:27 09/05/24 04:27 09/05/24 04:27 09/05/24 04:27 - General well developed, well nourished, no distress - Respiratory normal respiratory effort - Abdomen Abdomen: soft, non tender, no guarding, no rigid, no rebound - Psychiatric oriented to time, oriented to person, oriented to place, speech is normal, memory intact Results - Labs 09/06/24 05:44 09/06/24 05:44 Abnormal Lab Results - Last 24 Hours (Table) 09/05/24 09/05/24 Range/Units 06:53 06:53 RDW 17.1 H (11.5-15.5) % Sodium 146 H (137-145) mmol/L Creatinine 0.51 L (0.52-1.04) mg/dL AST 54 H (14-36) U/L Serum Alcohol 299 H* mg/dL Diabetes panel 09/05/24 Range/Units 06:53 Sodium 146 H (137-145) mmol/L Potassium 5.0 (3.5-5.1) mmol/L Chloride 107 (98-107) mmol/L Carbon Dioxide 30 (22-30) mmol/L BUN 14 (7-17) mg/dL Creatinine 0.51 L (0.52-1.04) mg/dL Glucose 95 (74-99) mg/dL Calcium 8.9 (8.4-10.2) mg/dL AST 54 H (14-36) U/L ALT 34 (4-34) U/L Alkaline Phosphatase 104 (38-126) U/L Total Protein 7.5 (6.3-8.2) g/dL Albumin 4.4 (3.5-5.0) g/dL Calcium panel 09/05/24 Range/Units 06:53 Calcium 8.9 (8.4-10.2) mg/dL Albumin 4.4 (3.5-5.0) g/dL Pituitary panel 09/05/24 Range/Units 06:53 Sodium 146 H (137-145) mmol/L Potassium 5.0 (3.5-5.1) mmol/L Chloride 107 (98-107) mmol/L Carbon Dioxide 30 (22-30) mmol/L BUN 14 (7-17) mg/dL Creatinine 0.51 L (0.52-1.04) mg/dL Glucose 95 (74-99) mg/dL Calcium 8.9 (8.4-10.2) mg/dL Adrenal panel 09/05/24 Range/Units 06:53 Sodium 146 H (137-145) mmol/L Potassium 5.0 (3.5-5.1) mmol/L Chloride 107 (98-107) mmol/L Carbon Dioxide 30 (22-30) mmol/L BUN 14 (7-17) mg/dL Creatinine 0.51 L (0.52-1.04) mg/dL Glucose 95 (74-99) mg/dL Calcium 8.9 (8.4-10.2) mg/dL Total Bilirubin 0.5 (0.2-1.3) mg/dL AST 54 H (14-36) U/L ALT 34 (4-34) U/L Alkaline Phosphatase 104 (38-126) U/L Total Protein 7.5 (6.3-8.2) g/dL Albumin 4.4 (3.5-5.0) g/dL Assessment and Plan (1) Retention of urine, unspecified Current Visit: Yes Status: Acute Code(s): R33.9 - RETENTION OF URINE, UNSPECIFIED SNOMED Code(s): 310263623 Plan: Given the patient's history of urinary frequency, it is likely that her incomplete bladder emptying is chronic. This can be the result of alcohol abuse. Post-void residual will be checked to reevaluate bladder emptying. Time with Patient: Greater than 30
[2024-09-06] MEDS: BENZOCAINE/MENTHOL LOZENG 1 EACH LOZENGE MUCOUS MEM PRN (15:13)
[2024-09-06] MEDS: NICOTINE 21MG/24HR PATCH TRANSDERM SCH (15:14)
--- NOTE | 2024-09-07 00:48 | P.PN ---
Subjective Patient is a 64-year-old male with a past medical history of hypertension, history of CVA/TIA with right-sided weakness/speech issues, COPD, coronary artery disease and a prior cardiac catheterization no PCI, IBS, chronic back pain, history of falls, prior history of left carotid stenting, anxiety/depression currently everyday smoker and heavy alcohol use and marijuana use was brought to the hospital by EMS due to fall and alcohol intoxication. Patient had multiple admissions for similar complaints and intoxication. Patient states that he took about 2 shots of vodka this morning and was in the living room. Patient turned to the side and wants to go upstairs to her bedroom and suddenly tripped over and fell hitting her head. She was fell on her left side. She was brought to ER by EMS. Patient was intoxicated on admission. CT head and cervical spine showed is related to atrophic and chronic small vessel ischemic changes without acute intracranial process seen at this time. No evidence of acute fracture or dislocation of the cervical spine. X-ray of the hip showed there is no acute fracture or dislocation. Shoulder x-ray showed there is no acute fracture or dislocation. Laboratory data showed WBC 7.0 hemoglobin 13.9 platelets 152 and RDW 17.1 Sodium 146 potassium 5.0 chloride 107 bicarb is 30 BUN 14 and creatinine 0.51 blood sugar 95 AST 54 ALT 34 and alk phos 104 albumin 4.4 Urinalysis is negative for infection. Serum alcohol level was 299 09/07 pt today is awake and looks comfortable in bed pt was complaining from sore throat and grieving for smoking no chest pain or dyspnea CIWA Score is 3-8 vitals are stable , afebrile labs shwoing mild pancytopenia mostly secondaery to alcohol effect bmp is stable alcohol level was high on admission uds is negative gi prophylaxis dvt prophylaxis Active Medications Generic Name Dose Route Start Last Admin Trade Name Freq PRN Reason Stop Dose Admin Acetaminophen 650 mg 09/05/24 09:25 Acetaminophen Tab 325 Mg Tab PO Q6HR PRN Mild Pain or Fever > 100.5 Albuterol/Ipratropium 3 ml 09/05/24 11:09 Ipratropium-Albuterol 3 Ml Neb INHALATION RT-QID PRN Shortness Of Breath Amlodipine Besylate 5 mg 09/05/24 11:15 09/06/24 09:01 Amlodipine 5 Mg Tab PO 5 mg DAILY MAGY Administration Artificial Tears 1 drops 09/05/24 11:09 Artificial Tears-Hypromellose Drops 15 Ml Btl BOTH EYES TID PRN Dry Eye(s) Aspirin 81 mg 09/05/24 21:00 09/06/24 21:23 Aspirin 81 Mg PO 81 mg HS MAGY Administration Atorvastatin Calcium 80 mg 09/05/24 21:00 09/06/24 21:23 Atorvastatin 80 Mg Tab PO 80 mg HS MAGY Administration Benzocaine/Menthol 1 each 09/06/24 11:56 09/06/24 15:13 Benzocaine/Menthol Lozeng 1 Each Lozenge MUCOUS MEM 1 each Q6HR PRN Administration Sore Throat Brimonidine Tartrate 1 drops 09/05/24 21:00 09/06/24 21:24 Brimonidine Tartrate 0.2% Drops 5 Ml Btl BOTH EYES 1 drops BID MAGY Administration Budesonide/Formoterol Fumarate 2 puff 09/05/24 20:00 09/06/24 19:39 Symbicort 160-4.5 Mcg Inhaler INHALATION 2 puff RT-HS MAGY Administration Cholecalciferol 50 mcg 09/05/24 21:00 09/06/24 21:23 Cholecalciferol 25 Mcg (1000 Iu) Tablet PO 50 mcg HS MAGY Administration Clonidine 0.1 mg 09/05/24 21:00 09/06/24 21:23 Clonidine Hcl 0.1 Mg Tab PO 0.1 mg TID MAGY Administration Famotidine 20 mg 09/05/24 21:00 09/06/24 21:23 Famotidine 20 Mg Tab PO 20 mg BID MAGY Administration Fluticasone Propionate 2 spray 09/05/24 21:00 09/06/24 21:24 Fluticasone Nasal 50mcg/[place] 16gm Btl EA NOSTRIL 2 spray HS MAGY Administration Heparin Sodium (Porcine) 5,000 unit 09/05/24 21:00 09/06/24 21:24 Heparin Sodium,Porcine 5,000 Unit/Ml 1 Ml Vial SQ 5,000 unit Q12HR MAGY Administration Isosorbide Mononitrate 30 mg 09/05/24 21:00 09/06/24 21:23 Isosorbide Mononitrate Er 30 Mg Tab.Er.24h PO 30 mg HS MAGY Administration Lorazepam 1 mg 09/05/24 06:13 Lorazepam 2 Mg/Ml Inj IV Q1HR PRN CIWA 10 to 15 Lorazepam 1 mg 09/05/24 06:13 09/06/24 03:33 Lorazepam 2 Mg/Ml Inj IV 1 mg Q2HR PRN Administration CIWA 8 or 9 Lorazepam 2 mg 09/05/24 06:13 Lorazepam 2 Mg/Ml Inj IV 09/07/24 06:13 Q10M PRN CIWA 16 or higher Magnesium Oxide 400 mg 09/05/24 21:00 09/06/24 21:23 Magnesium Oxide 400 Mg Tab PO 400 mg HS MAGY Administration Metoprolol Succinate 50 mg 09/05/24 21:00 09/06/24 21:23 Metoprolol Succinate (Er) 50 Mg Tab.Er.24h PO 50 mg HS MAGY Administration Multivitamins 1 each 09/05/24 21:00 09/06/24 21:23 Multivitamins, Thera 1 Each Tab PO 1 each HS MAGY Administration Naloxone HCl 0.2 mg 09/05/24 09:25 Naloxone 0.4 Mg/Ml 1 Ml Vial IV Q2M PRN Opioid Reversal Nicotine 1 patch 09/06/24 15:00 09/06/24 15:14 Nicotine 21mg/24hr Patch TRANSDERM 1 patch DAILY MAGY Administration Ondansetron HCl 4 mg 09/05/24 17:58 09/06/24 00:37 Ondansetron 4 Mg/2 Ml Vial IVP 4 mg Q6HR PRN Administration Nausea And Vomiting Thiamine HCl 100 mg 09/06/24 09:00 09/06/24 09:04 Thiamine 100 Mg Tab PO 100 mg DAILY MAGY Administration Ticagrelor 90 mg 09/05/24 21:00 09/06/24 23:03 Ticagrelor 90 Mg Tab PO 90 mg HS MAGY Administration Objective - Vital Signs Vital signs: Vital Signs Temp 98.4 F 09/06/24 07:00 Pulse 80 09/06/24 07:00 Resp 16 09/06/24 07:00 BP 160/65 09/06/24 07:00 Pulse Ox 96 09/06/24 07:00 FiO2 Intake & Output 09/05/24 09/06/24 09/06/24 18:59 06:59 18:59 Output Total 925 Balance -925 Weight 59 kg Output: Urine 925 Straight 625 Other: Voiding Method Toilet # Voids 1 1 # Bowel Movements 1 1 - Exam Patient is lying in the bed,, no acute distress, awake alert and oriented but slightly drowsy... HEENT: Normocephalic. Neck is supple. Pupils reactive. Nostrils clear. Oral cavity is moist. Neck reveals no JVD, carotid bruits, or thyromegaly. CHEST EXAMINATION: Trachea is central. Symmetrical expansion. Lung gavlan clear to auscultation and percussion. CARDIAC: Normal S1, S2 with no gallops. No murmurs ABDOMEN: Soft. Bowel sounds normal. No organomegaly. No abdominal bruits. Extremities: reveal no edema. No clubbing or cyanosis Neurologically awake, alert, oriented x 2-3. Able to move all extremities while in bed. Mild right-sided residual weakness. Skin: No rash or skin lesions. Psychiatric: Coperative. Nonsuicidal, could not give history completely Musculoskeletal: No joint swelling or deformity. - Labs CBC & Chem 7: 09/06/24 05:44 09/06/24 05:44 Labs: Abnormal Lab Results - Last 24 Hours (Table) 09/06/24 09/06/24 Range/Units 05:44 05:44 WBC 3.67 L (4.50-10.00) X 10*3/uL RBC 3.16 L (4.10-5.20) X 10*6/uL Hgb 9.7 L (12.0-15.0) g/dL Hct 30.1 L (37.2-46.3) % RDW 16.9 H (11.5-14.5) % Plt Count 92 L (140-440) X 10*3/uL Neutrophils # 1.57 L (1.80-7.70) X 10*3/uL Stomatocytes 2+ A Anion Gap 12.50 H (4.00-12.00) mmol/L BUN 8.7 L (9.0-27.0) mg/dL Calcium 8.2 L (8.7-10.3) mg/dL Assessment and Plan Assessment: Acute alcohol intoxication with serum alcohol level 299 Status post mechanical fall likely due to intoxication. Severe alcohol abuse and marijuana use and multiple admissions with similar complaints Hypertension History of CVA with minimal right-sided residual weakness and speech issues. History of alcohol withdrawal seizures History of [place]/postcardiac catheterization. No PCI IBS Chronic back pain Marijuana use disorder Degenerative disease Anxiety/depression Currently only smoking Plan: c/w CIWA protocol nicotine patch on thiamin monitor bp GI and DVT prophylaxis with Pepcid and heparin subcu prognosis is guarded
[2024-09-07 02:46] VITALS: BP 128/75; PULSE 67; RESP 16; TEMP 97.9
--- NOTE | 2024-09-07 08:45 | P.DS ---
Providers Date of admission: 09/05/24 09:05 Attending physician: Hellen Jackson Consults: 09/05/24 15:41 Consult Physician Routine Consulting Provider: Yuval Mckeon Consult Reason/Comments: Retention Do you want consulting provider notified?: Yes Primary care physician: Miya Johnson Hospital Course: Please note patient was not discharged but left AMA Diagnoses Acute alcohol intoxication with serum alcohol level 299 Status post mechanical fall likely due to intoxication. Severe alcohol abuse and marijuana use and multiple admissions with similar complaints Hypertension History of CVA with minimal right-sided residual weakness and speech issues. History of alcohol withdrawal seizures History of [place]/postcardiac catheterization. No PCI IBS Chronic back pain Marijuana use disorder Degenerative disease Anxiety/depression Currently only smoking Hospital course: This is a pleasant 64 years old female who was admitted for alcohol intoxication. Yesterday patient was doing well and she was improving. When I saw the patient yesterday she was calm pleasant. She denies any signs symptoms of depression, she denies suicidal or homicidal ideation, no hallucination or delusions. Based upon my evaluation patient has capacity to make medical decision This morning looks like patient left AMA before I have a chance to see the patient or talk to her. Please refer to nurse note for more details Patient Condition at Discharge: Stable Plan - Discharge Summary Discharge Rx Participant: No New Discharge Prescriptions: No Action Budesonide/Formoterol Fumarate [Symbicort 160-4.5 Mcg Inhaler] 2 puff INHALATION RT-HS Multivitamin [Multivitamins Adult Gummies] 2 tab PO HS Ferrous Sulfate [Iron (65 MG Elemental)] 325 mg PO HS Ipratropium-Albuterol Nebulize [Duoneb 0.5 mg-3 mg/3 ml Soln] 3 ml INHALATION RT-QID PRN PRN Reason: Shortness Of Breath amLODIPine [Norvasc] 5 mg PO DAILY #90 tab Aspirin EC [Ecotrin Low Dose] 81 mg PO HS #90 tab Isosorbide Mononitrate ER [Imdur] 30 mg PO HS #90 tab Atorvastatin [Lipitor] 80 mg PO HS #90 tab Metoprolol Succinate (ER) [Toprol XL] 50 mg PO HS #90 tab Brimonidine Tartrate [Alphagan P 0.2% Ophth Soln] 1 drop BOTH EYES BID Fluticasone Nasal [place] [Flonase Nasal [place]] 2 spr EA NOSTRIL HS Artificial Tears-Hypromellose [Artificial Tear Drops] 1 drop BOTH EYES TID PRN PRN Reason: Dry Eye(S) Potassium Chloride ER [K-Dur 20] 20 meq PO HS Cholecalciferol (Vitamin D3) [Vitamin D3 (50 Mcg = 2000 Iu)] 50 mcg PO HS cloNIDine HCL [Catapres] 0.1 mg PO TID #180 tab Ticagrelor [Brilinta] 90 mg PO HS #90 tab Magnesium Oxide [Mag-Ox] 400 mg PO HS #90 tab Discharge Medication List Budesonide/Formoterol Fumarate [Symbicort 160-4.5 Mcg Inhaler] 2 puff INHALATION RT-HS 07/29/23 [History] Multivitamin [Multivitamins Adult Gummies] 2 tab PO HS 12/04/23 [History] Brimonidine Tartrate [Alphagan P 0.2% Ophth Soln] 1 drop BOTH EYES BID 02/02/24 [History] Fluticasone Nasal [place] [Flonase Nasal [place]] 2 spr EA NOSTRIL HS 02/02/24 [History] Artificial Tears-Hypromellose [Artificial Tear Drops] 1 drop BOTH EYES TID PRN 03/10/24 [History] Potassium Chloride ER [K-Dur 20] 20 meq PO HS 03/15/24 [History] Cholecalciferol (Vitamin D3) [Vitamin D3 (50 Mcg = 2000 Iu)] 50 mcg PO HS 05/03/24 [History] Ferrous Sulfate [Iron (65 MG Elemental)] 325 mg PO HS 05/03/24 [History] Ipratropium-Albuterol Nebulize [Duoneb 0.5 mg-3 mg/3 ml Soln] 3 ml INHALATION RT-QID PRN 05/24/24 [History] Aspirin EC [Ecotrin Low Dose] 81 mg PO HS #90 tab 05/25/24 [Rx] Atorvastatin [Lipitor] 80 mg PO HS #90 tab 05/25/24 [Rx] Isosorbide Mononitrate ER [Imdur] 30 mg PO HS #90 tab 05/25/24 [Rx] Magnesium Oxide [Mag-Ox] 400 mg PO HS #90 tab 05/25/24 [Rx] Metoprolol Succinate (ER) [Toprol XL] 50 mg PO HS #90 tab 05/25/24 [Rx] Ticagrelor [Brilinta] 90 mg PO HS #90 tab 05/25/24 [Rx] amLODIPine [Norvasc] 5 mg PO DAILY #90 tab 05/25/24 [Rx] cloNIDine HCL [Catapres] 0.1 mg PO TID #180 tab 05/25/24 [Rx] Follow up Appointment(s)/Referral(s): Miya Johnson MD [Primary Care Provider] - 1-2 days Discharge Disposition: LEFT AGAINST MEDICAL ADVICE
== END 2024-09-07 04:15 | disposition left against medical advice (07) ==
LOC: EC 04:26 → 6NMEDSUR 09:05
PROVIDERS: ADMIT Internal Medicine; ATTEND Internal Medicine
DX: F10.129 Alcohol abuse with intoxication, unspecified (principal); Y90.8 Blood alcohol level of 240 mg/100 ml or more; W01.190A Fall on same level from slipping, tripping and stumbling with subsequent striking against furniture, initial encounter; Y92.008 Other place in unspecified non-institutional (private) residence as the place of occurrence of the external cause; Z53.29 Procedure and treatment not carried out because of patient's decision for other reasons; M25.552 Pain in left hip; M25.512 Pain in left shoulder; M54.2 Cervicalgia; J44.9 Chronic obstructive pulmonary disease, unspecified; F12.929 Cannabis use, unspecified with intoxication, unspecified; I69.351 Hemiplegia and hemiparesis following cerebral infarction affecting right dominant side; R47.89 Other speech disturbances; D61.818 Other pancytopenia; I25.10 Atherosclerotic heart disease of native coronary artery without angina pectoris; I10 Essential (primary) hypertension; K58.9 Irritable bowel syndrome, unspecified; R33.9 Retention of urine, unspecified; R35.0 Frequency of micturition; R35.1 Nocturia; N39.41 Urge incontinence; F32.A Depression, unspecified; F41.9 Anxiety disorder, unspecified; F17.200 Nicotine dependence, unspecified, uncomplicated; M54.9 Dorsalgia, unspecified; I25.2 Old myocardial infarction; R50.9 Fever, unspecified; G89.29 Other chronic pain; Z79.51 Long term (current) use of inhaled steroids; Z79.82 Long term (current) use of aspirin; Z79.899 Other long term (current) drug therapy; Z88.5 Allergy status to narcotic agent; Z88.7 Allergy status to serum and vaccine; Z88.8 Allergy status to other drugs, medicaments and biological substances; Z91.018 Allergy to other foods; Z91.040 Latex allergy status; Z95.9 Presence of cardiac and vascular implant and graft, unspecified; Z81.1 Family history of alcohol abuse and dependence
CPT/HCPCS: 96376 ×2; 96361 ×2; 96372 ×3; 96374; 96375; 99285; 51798; 36415; 94640 ×2; 80053; 80048; 82550; 83735; 85025 ×2; 81003; 73030; 73502; 73562; 72125; 70450; G0378 ×3; G0480; S4990; J2060 ×2; J1644 ×2; J3411; J2405 ×2; 80320

== ENCOUNTER 2024-09-09 21:08 | Observation (INO) | payer OTHER ==
--- NOTE | 2024-09-09 21:39 | ED ---
General Adult HPI - General Chief complaint: Alcohol Stated complaint: ETOH Time Seen by Provider: 09/09/24 21:11 Source: patient, EMS Mode of arrival: EMS Limitations: altered mental status (Patient appears significantly intoxicated) - History of Present Illness Initial comments: This patient is a 64-year-old woman brought by ambulance from her home. The patient tells me she is having left-sided chest pain. EMS personnel stated that the patient was complaining of pains everywhere. When I reviewed the patient she states the pain and been going on for hours. She describes it as aching. The pain is constant. She has not noted worsening or relieving factors. Patient denies associated symptoms, no dyspnea, diaphoresis, nausea or vomiting. Patient states she had just been at [facility] and she believes they had done a heart catheterization. -: hour(s) Location: chest Radiation: non-radiation Quality: aching Consistency: constant Improves with: none Worsens with: none Associated Symptoms: denies other symptoms Treatments Prior to Arrival: none - Related Data Home Medications Medication Instructions Recorded Confirmed Budesonide/Formoterol Fumarate 2 puff INHALATION RT-HS 07/29/23 09/10/24 [Symbicort 160-4.5 Mcg Inhaler] Multivitamin [Multivitamins Adult 2 tab PO HS 12/04/23 09/10/24 Gummies] Brimonidine Tartrate [Alphagan P 1 drop BOTH EYES BID 02/02/24 09/10/24 0.2% Ophth Soln] Fluticasone Nasal [place] [Flonase 2 spr EA NOSTRIL HS 02/02/24 09/10/24 Nasal [place]] Artificial Tears-Hypromellose 1 drop BOTH EYES TID PRN 03/10/24 09/10/24 [Artificial Tear Drops] Potassium Chloride ER [K-Dur 20] 20 meq PO HS 03/15/24 09/10/24 Cholecalciferol (Vitamin D3) 50 mcg PO HS 05/03/24 09/10/24 [Vitamin D3 (50 Mcg = 2000 Iu)] Ferrous Sulfate [Iron (65 MG 325 mg PO HS 05/03/24 09/10/24 Elemental)] Ipratropium-Albuterol Nebulize 3 ml INHALATION RT-QID PRN 05/24/24 09/10/24 [Duoneb 0.5 mg-3 mg/3 ml Soln] Albuterol Sulfate [Ventolin HFA] 1 - 2 puff INHALATION RT-Q6H PRN 09/10/24 09/10/24 Previous Rx's Medication Instructions Recorded Aspirin EC [Ecotrin Low Dose] 81 mg PO HS #90 tab 05/25/24 Atorvastatin [Lipitor] 80 mg PO HS #90 tab 05/25/24 Isosorbide Mononitrate ER [Imdur] 30 mg PO HS #90 tab 05/25/24 Magnesium Oxide [Mag-Ox] 400 mg PO HS #90 tab 05/25/24 Metoprolol Succinate (ER) [Toprol 50 mg PO HS #90 tab 05/25/24 XL] Ticagrelor [Brilinta] 90 mg PO HS #90 tab 05/25/24 Cephalexin [Keflex] 500 mg PO Q12HR 7 Days #14 cap 09/11/24 Losartan [Cozaar] 25 mg PO DAILY #30 tab 09/11/24 Allergies Allergy/AdvReac Type Severity Reaction Status Date / Time [place] And Derivatives Allergy Rash/Hives Verified 09/22/24 22:11 [[place]] latex Allergy Rash/Hives Verified 09/22/24 22:11 amlodipine [From Norvasc] AdvReac Cough Verified 09/22/24 22:11 cinnamon AdvReac Nausea Verified 09/22/24 22:11 clonidine AdvReac "almost Verified 09/22/24 22:11 passed out" gabapentin AdvReac Dizziness Verified 09/22/24 22:11 Influenza Virus Vaccines AdvReac Nausea & Verified 09/22/24 22:11 Vomiting lisinopril AdvReac Cough Verified 09/22/24 22:11 morphine AdvReac Nausea & Verified 09/22/24 22:11 Vomiting sucralfate [From Carafate] AdvReac Abdominal Verified 09/22/24 22:11 Pain tomato AdvReac Diarrhea Verified 09/22/24 22:11 Review of Systems ROS Statement: Those systems with pertinent positive or pertinent negative responses have been documented in the HPI. ROS Other: All systems not noted in ROS Statement are negative. Constitutional: Denies: fever, chills, weakness Eyes: Denies: vision change Respiratory: Denies: cough, dyspnea Cardiovascular: Reports: chest pain. Denies: palpitations, edema, syncope Gastrointestinal: Denies: abdominal pain, nausea, vomiting, diarrhea, melena, hematochezia Genitourinary: Denies: dysuria, hematuria Musculoskeletal: Reports: myalgia. Denies: back pain Skin: Denies: rash Neurological: Denies: headache, weakness Past Medical History Past Medical History: Asthma, Coronary Artery Disease (CAD), COPD, CVA/TIA, Eye Disorder, Hypertension, Liver Disease, Myocardial Infarction ([place]), Seizure Diso rder, Vascular Disorder Additional Past Medical History / Comment(s): Pt recently admitted to [facility] for diarrhea, ETOH abuse. 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 Past Psychological History: Anxiety, Depression Smoking Status: Current every day smoker Past Alcohol Use History: Abuse, Daily, Heavy Past Drug Use History: Marijuana - Past Family History Mother Family Medical History: Cancer, Congestive Heart Failure (CHF), Coronary Artery Disease (CAD), Hyperlipidemia Additional Family Medical History / Comment(s): Mother at age 85 from lung cancer. Father Family Medical History: Cancer, COPD Additional Family Medical History / Comment(s): Father at age 63 from lung cancer. Brother(s) Additional Family Medical History / Comment(s): Patient has a total of 7 siblings. 5 are alive without any major medical problems she is aware of. 2 siblings have one from alcohol abuse and 1. Coronary artery disease. Daughter(s) Family Medical History: No Reported History Additional Family Medical History / Comment(s): Patient has one daughter with no major medical problems. General Exam General appearance: alert, appears intoxicated Head exam: Present: atraumatic, normocephalic Eye exam: Present: normal appearance. Absent: scleral icterus, conjunctival injection ENT exam: Present: mucous membranes dry Neck exam: Present: normal inspection, full ROM. Absent: meningismus Respiratory exam: Present: normal lung sounds bilaterally. Absent: respiratory distress, wheezes, rales, rhonchi, stridor, chest wall tenderness, accessory muscle use Cardiovascular Exam: Present: regular rate, normal rhythm, normal heart sounds. Absent: systolic murmur, diastolic murmur, rubs, gallop GI/Abdominal exam: Present: soft. Absent: distended, tenderness, guarding, rebound, rigid, mass Extremities exam: Present: normal inspection, normal capillary refill. Absent: pedal edema, calf tenderness Back exam: Present: normal inspection. Absent: CVA tenderness (R), CVA tenderness (L) Neurological exam: Present: alert Skin exam: Present: warm, dry, intact, normal color. Absent: rash Course Vital Signs 09/09/24 09/09/24 09/10/24 21:10 23:15 01:22 Temperature 98.1 F Pulse Rate 96 98 99 Respiratory 18 16 16 Rate Blood Pressure 97/74 93/67 114/78 O2 Sat by Pulse 95 94 L 96 Oximetry 09/10/24 09/10/24 09/10/24 03:05 05:02 07:48 Temperature Pulse Rate 98 89 93 Respiratory 18 16 18 Rate Blood Pressure 138/84 123/75 156/99 O2 Sat by Pulse 97 96 Oximetry 09/10/24 09/10/24 09/10/24 08:13 08:19 10:12 Temperature 98.2 F Pulse Rate 94 90 96 Respiratory 18 Rate Blood Pressure 142/97 O2 Sat by Pulse 96 Oximetry EKG Findings - EKG Results: EKG: interpreted by ERMD, sinus rhythm (Rate 96 bpm), normal axis, normal QRS - Blocks, Gans, Hypertrophy, ST Abn: Repolarization changes or abnormalities: nonspecific abnormality, ST segment, and/or T wave Medical Decision Making - Medical Decision Making the patient had a chest x-ray as part of the workup which I interpreted as being negative for infiltrate, congestive heart failure and pneumothorax. Was pt. sent in by a medical professional or institution (, PA, ASSISTANT GOLF COURSE SUPERINTENDENT, urgent care, hospital, or prison...) When possible be specific @ -[No] Did you speak to anyone other than the patient for history (EMS, parent, family, police, friend...)? What history was obtained from this source @ -[No] Did you review nursing and triage notes (agree or disagree)? Why? @ -[I reviewed and agree with nursing and triage notes] Were old charts reviewed (outside hosp., previous admission, EMS record, old EKG, old radiological studies, urgent care reports/EKG's, prison records)? Report findings @ -[No old charts were reviewed] Differential Diagnosis (chest pain, altered mental status, abdominal pain women, abdominal pain men, vaginal bleeding, weakness, fever, dyspnea, syncope, headache, dizziness, GI bleed, back pain, seizure, CVA, palpatations, mental health, musculoskeletal)? @ -[Differential Chest Pain: Stable Angina, Unstable Angina, STEMI, NSTEMI Aortic Dissection, Pneumothorax, Musculoskeletal, Esophageal Spasm GERD, Cholecystitis, Pancreatitis, Zoster, this is not meant to be an all-inclusive list. EKG interpreted by me (3pts min.). @ -[. Interpreted as above] X-rays interpreted by me (1pt min.). @ -[I interpreted as above CT interpreted by me (1pt min.). @ -[None done] U/S interpreted by me (1pt. min.). @ -[None done] What testing was considered but not performed or refused? (CT, X-rays, U/S, labs)? Why? @ -[None] What meds were considered but not given or refused? Why? @ -[None] Did you discuss the management of the patient with other professionals (professionals i.e. , PA, ASSISTANT GOLF COURSE SUPERINTENDENT, lab, RT, psych nurse, delinquency prevention social worker, communications representative, teacher, armor officer, dependency case manager)? Give summary @ -[No] Was smoking cessation discussed for >3mins.? @ -[No] Was critical care preformed (if so, how long)? @ -[No] Were there social determinants of health that impacted care today? How? (Homelessness, low income, unemployed, alcoholism, drug addiction, transportation, low edu. Level, literacy, decrease access to med. care, fdc, rehab)? @ -[ alcoholism Was there de-escalation of care discussed even if they declined (Discuss DNR or withdrawal of care, Hospice)? DNR status @ -[No] What co-morbidities impacted this encounter? (DM, HTN, Smoking, COPD, CAD, Cancer, CVA, ARF, Chemo, Hep., AIDS, mental health diagnosis, sleep apnea, morbid obesity)? @ -[None] Was patient admitted / discharged? Hospital course, mention meds given and route, prescriptions, significant lab abnormalities, going to OR and other pertinent info. @ -[hospital course] Undiagnosed new problem with uncertain prognosis? @ -[No] Drug Therapy requiring intensive monitoring for toxicity (Heparin, Nitro, Insulin, Cardizem)? @ -[No] Were any procedures done? @ -[No] Diagnosis/symptom? @ -[Acute chest pain Acute alcohol intoxication Acute, or Chronic, or Acute on Chronic? @ -[Acute Uncomplicated (without systemic symptoms) or Complicated (systemic symptoms)? @ -[unComplicated Side effects of treatment? @ -[No] Exacerbation, Progression, or Severe Exacerbation? @ -[No] Poses a threat to life or bodily function? How? (Chest pain, [place], [place], pneumonia, PE, COPD, DKA, ARF, appy, cholecystitis, CVA, Diverticulitis, Homicidal, Suicidal, threat to staff... and all critical care pts) @ -[No] - Lab Data Result diagrams: 09/11/24 04:40 09/11/24 04:40 Lab Results 09/09/24 09/09/24 09/09/24 Range/Units 22:20 22:20 22:20 WBC 7.5 (3.8-10.6) k/uL RBC 4.14 (3.80-5.40) m/uL Hgb 12.3 (11.4-16.0) gm/dL Hct 39.4 (34.0-46.0) % MCV 95.2 (80.0-100.0) fL MCH 29.7 (25.0-35.0) pg MCHC 31.3 (31.0-37.0) g/dL RDW 16.8 H (11.5-15.5) % Plt Count 190 (150-450) k/uL MPV 7.6 Neutrophils % 51 % Lymphocytes % 39 % Monocytes % 3 % Eosinophils % 2 % Basophils % 2 % Neutrophils # 3.8 (1.3-7.7) k/uL Lymphocytes # 2.9 (1.0-4.8) k/uL Monocytes # 0.3 (0-1.0) k/uL Eosinophils # 0.1 (0-0.7) k/uL Basophils # 0.2 (0-0.2) k/uL Hypochromasia Slight Anisocytosis Slight PT 10.8 (10.0-12.5) sec INR 1.0 (<1.2) APTT 23.4 (22.0-30.0) sec Sodium 149 H (137-145) mmol/L Potassium 3.6 (3.5-5.1) mmol/L Chloride 110 H (98-107) mmol/L Carbon Dioxide 22 (22-30) mmol/L Anion Gap 17 mmol/L BUN 14 (7-17) mg/dL Creatinine 0.84 (0.52-1.04) mg/dL Est GFR (CKD-EPI)AfAm 86 (>60 ml/min/1.73 sqM) Est GFR (CKD-EPI)NonAf 74 (>60 ml/min/1.73 sqM) Glucose 88 (74-99) mg/dL Calcium 8.3 L (8.4-10.2) mg/dL Magnesium 2.0 (1.6-2.3) mg/dL Total Bilirubin 0.3 (0.2-1.3) mg/dL AST 37 H (14-36) U/L ALT 25 (4-34) U/L Alkaline Phosphatase 143 H (38-126) U/L Troponin I (0.000-0.034) ng/mL Total Protein 7.1 (6.3-8.2) g/dL Albumin 4.3 (3.5-5.0) g/dL Amylase 48 (30-110) U/L Lipase 65 (23-300) U/L Serum Alcohol mg/dL 09/09/24 09/09/24 Range/Units 22:20 23:40 WBC (3.8-10.6) k/uL RBC (3.80-5.40) m/uL Hgb (11.4-16.0) gm/dL Hct (34.0-46.0) % MCV (80.0-100.0) fL MCH (25.0-35.0) pg MCHC (31.0-37.0) g/dL RDW (11.5-15.5) % Plt Count (150-450) k/uL MPV Neutrophils % % Lymphocytes % % Monocytes % % Eosinophils % % Basophils % % Neutrophils # (1.3-7.7) k/uL Lymphocytes # (1.0-4.8) k/uL Monocytes # (0-1.0) k/uL Eosinophils # (0-0.7) k/uL Basophils # (0-0.2) k/uL Hypochromasia Anisocytosis PT (10.0-12.5) sec INR (<1.2) APTT (22.0-30.0) sec Sodium (137-145) mmol/L Potassium (3.5-5.1) mmol/L Chloride (98-107) mmol/L Carbon Dioxide (22-30) mmol/L Anion Gap mmol/L BUN (7-17) mg/dL Creatinine (0.52-1.04) mg/dL Est GFR (CKD-EPI)AfAm (>60 ml/min/1.73 sqM) Est GFR (CKD-EPI)NonAf (>60 ml/min/1.73 sqM) Glucose (74-99) mg/dL Calcium (8.4-10.2) mg/dL Magnesium (1.6-2.3) mg/dL Total Bilirubin (0.2-1.3) mg/dL AST (14-36) U/L ALT (4-34) U/L Alkaline Phosphatase (38-126) U/L Troponin I 0.014 (0.000-0.034) ng/mL Total Protein (6.3-8.2) g/dL Albumin (3.5-5.0) g/dL Amylase (30-110) U/L Lipase (23-300) U/L Serum Alcohol 329 H* mg/dL Disposition Clinical Impression: Chest pain, Alcohol intoxication Disposition: ADMITTED IP TO THIS HOSP Condition: Fair Is patient prescribed a controlled substance at d/c from ED?: No
[2024-09-09] MEDS: ASPIRIN 81 MG PO STA (21:59)
[2024-09-09] MEDS: SODIUM CHLORIDE 0.9% 1,000 ML IV STA (22:20)
[2024-09-09 22:41] LABS: Anisocytosis Slight; Basophils # (A) 0.2 k/uL (0-0.2); Basophils % (A) 2 %; Eosinophils # (A) 0.1 k/uL (0-0.7); Eosinophils % (A) 2 %; HCT 39.4 % (34.0-46.0); HGB 12.3 gm/dL (11.4-16.0); Hypochromasia Slight; Lymphocytes # (A) 2.9 k/uL (1.0-4.8); Lymphocytes % (A) 39 %; MCH 29.7 pg (25.0-35.0); MCHC 31.3 g/dL (31.0-37.0); MCV 95.2 fL (80.0-100.0); Mean Platelet Volume 7.6; Monocytes # (A) 0.3 k/uL (0-1.0); Monocytes % (A) 3 %; Neutrophils # (A) 3.8 k/uL (1.3-7.7); Neutrophils % (A) 51 %; Platelet Count 190 k/uL (150-450); RBC 4.14 m/uL (3.80-5.40); RDW 16.8 % (11.5-15.5); WBC 7.5 k/uL (3.8-10.6)
--- NOTE | 2024-09-09 22:43 | XR ---
EXAMINATION TYPE: XR chest 2V DATE OF EXAM: 09/09/2024 COMPARISON: Chest x-ray September 04, 2024 and older studies HISTORY: Chest pain TECHNIQUE: Frontal and lateral views of the chest are obtained. FINDINGS: There is some chronic parenchymal change bilaterally without suspicious new focal air spac e opacity, pleural effusion, or pneumothorax seen. Persistent cardiomegaly. The osseous structures remain somewhat demineralized. IMPRESSION: Chronic changes and cardiomegaly without acute pulmonary process. [facility], , 09/09/2024 10:41 PM
[2024-09-09] MEDS ORDERED: LORazepam Vial 25 MG in DEXTROSE 5% IN WATER 244 ML IV SCH (22:45)
[2024-09-09 22:52] LABS: ALT 25 U/L (4-34); AST 37 U/L (14-36); African American GFR (CKD) 86 (>60 ml/min/1.73 sqM); Albumin 4.3 g/dL (3.5-5.0); Alkaline Phosphatase 143 U/L (38-126); Amylase 48 U/L (30-110); Anion Gap 17 mmol/L; Blood Urea Nitrogen 14 mg/dL (7-17); Calcium 8.3 mg/dL (8.4-10.2); Carbon Dioxide 22 mmol/L (22-30); Chloride 110 mmol/L (98-107); Glucose 88 mg/dL (74-99); Lipase 65 U/L (23-300); Non-African American GFR(CKD) 74 (>60 ml/min/1.73 sqM); Potassium 3.6 mmol/L (3.5-5.1); Sodium 149 mmol/L (137-145); Total Bilirubin 0.3 mg/dL (0.2-1.3); Total Protein 7.1 g/dL (6.3-8.2)
[2024-09-09 23:13] LABS: Partial Thromboplastin Time 23.4 sec (22.0-30.0); Prothrombin Time 10.8 sec (10.0-12.5)
[2024-09-10] MEDS ORDERED: NITROGLYCERIN SL TABS 0.4 MG TAB SUBLINGUAL PRN (02:35)
[2024-09-10] MEDS ORDERED: LORazepam 2 MG/ML INJ IV PRN (02:35)
[2024-09-10] MEDS ORDERED: ARTIFICIAL TEARS-HYPROMELLOSE DROPS 15 ML BTL BOTH EYES PRN (02:37)
[2024-09-10] MEDS: ISOSORBIDE MONONITRATE ER 30 MG TAB.ER.24H PO STA (03:02)
[2024-09-10] MEDS: METOPROLOL SUCCINATE (ER) 50 MG TAB.ER.24H PO STA (03:02)
[2024-09-10] MEDS: LORazepam 2 MG/ML INJ IV PRN ×2 (03:05→08:56)
[2024-09-10] MEDS: cloNIDine HCL 0.1 MG TAB PO SCH (08:07)
[2024-09-10] MEDS: THIAMINE 100 MG TAB PO SCH (08:08)
[2024-09-10] MEDS: amLODIPine 5 MG TAB PO SCH (08:08)
[2024-09-10] MEDS: IPRATROPIUM-ALBUTEROL 3 ML NEB INHALATION PRN (08:11)
[2024-09-10] MEDS: BRIMONIDINE TARTRATE 0.2% DROPS 5 ML BTL BOTH EYES SCH (08:21)
--- NOTE | 2024-09-10 17:26 | P.HPIM ---
History of Present Illness H&P Date: 09/10/24 Patient is a 64-year-old female with asthma, CAD, COPD, history of CVA/TIA hypertension, history of IA, seizure disorder, chronic alcohol abuse presenting with chest pain. She stated his chest pain started a couple weeks ago and describes it as an aching pain that is associated with right arm numbness. She states she has had a history of heart catheterization done at [facility]. Patient admits to nausea. When asked she states her last drink was yesterday, and states she drinks fairly often. She typically drinks wine, whiskey, vodka deal with her chronic back pain. She states she has tried to quit and wants to quit now. EKG independently interpreted displays sinus rhythm, rate 96 bpm QTc 438 ms. CXR displays no acute pulmonary process Serum alcohol 329, troponin negative x 3, lipase 65 T98.1 F, NH 90, RR 18, BP 156/99, O2 sat 96% on room air ED documentation reviewed and case discussed with ED provider. [] Review of systems: Pertinent positives and negatives as discussed in HPI, a complete review of systems was performed and all other systems are negative. Physical examination: Vital signs reviewed General: non toxic, no distress, appears at stated age, normal weight Derm: no unusual rashes/lesions, warm Head: atraumatic, normocephalic, symmetric Eyes: EOMI, anicteric sclera, pupils equal round reactive to light ENT: Nose and ears atraumatic Neck: No cervical lymphadenopathy, trachea midline, supple Mouth: no lip lesion, mucus membranes moist Cardiovascular: S1S2 reg, no murmur, positive dorsalis pedis pulse bilateral, no edema Lungs: CTA bilateral, no rhonchi, no rales, no accessory muscle use Abdominal: soft, nontender to palpation, no guarding Ext: muscle strength 5 out of 5 in all 4 extremities grossly, no gross muscle atrophy Neuro: CN II-XI grossly intact, no gross focal neuro deficits Psych: Alert, oriented to person, place, and time Assessment/Plan: Patient is a 64-year-old female with asthma, CAD, COPD, history of CVA/TIA hypertension, history of IA, seizure disorder, chronic alcohol abuse presenting with chest pain. Active #. Acute alcohol intoxication CIWA Thiamine 100 mg p.o. daily Ativan per protocol Monitor for seizures Monitor for withdrawal symptoms Was given 2 mg Ativan NS at 20 cc/H #. Atypical chest pain EKG independently interpreted displays sinus rhythm , rate 96 bpm QTc 438 ms CXR independently interpreted displays no acute pulmonary process Troponin negative x 3 Lipid panel, TSH, A1c, proBNP, D-dimer ordered Currently on aspirin 81 mg p.o. at bedtime Cardiology consulted Chronic #. COPD #. Hypertension #. Seizure disorder Continue with home medications for chronic conditions. F: N/A E: Replete as needed N: Heart healthy diet A: Ambulatory DVT prophylaxis: Lovenox 40 SQ daily The patient is admitted with an anticipated [] than 2 midnight stay for evaluation of [] CODE STATUS: [] Discussed with: [] Anticipated discharge place: [] Past Medical History Past Medical History: Asthma, Coronary Artery Disease (CAD), COPD, CVA/TIA, Eye Disorder, Hypertension, Liver Disease, Myocardial Infarction ([place]), Seizure Disorder, Vascular Disorder Additional Past Medical History / Comment(s): Pt recently admitted to [facility] for diarrhea, ETOH abuse. 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 Past Psychological History: Anxiety, Depression Smoking Status: Current every day smoker Past Alcohol Use History: Abuse, Daily, Heavy Past Drug Use History: Marijuana - Past Family History Mother Family Medical History: Cancer, Congestive Heart Failure (CHF), Coronary Artery Disease (CAD), Hyperlipidemia Additional Family Medical History / Comment(s): Mother at age 85 from lung cancer. Father Family Medical History: Cancer, COPD Additional Family Medical History / Comment(s): Father at age 63 from lung cancer. Brother(s) Additional Family Medical History / Comment(s): Patient has a total of 7 siblings. 5 are alive without any major medical problems she is aware of. 2 siblings have one from alcohol abuse and 1. Coronary artery disease. Daughter(s) Family Medical History: No Reported History Additional Family Medical History / Comment(s): Patient has one daughter with no major medical problems. Medications and Allergies Home Medications Medication Instructions Recorded Confirmed Type Budesonide/Formoterol Fumarate 2 puff INHALATION RT-HS 07/29/23 09/10/24 History [Symbicort 160-4.5 Mcg Inhaler] Multivitamin [Multivitamins Adult 2 tab PO HS 12/04/23 09/10/24 History Gummies] Brimonidine Tartrate [Alph[place] P 1 drop BOTH EYES BID 02/02/24 09/10/24 History 0.2% Ophth Soln] Fluticasone Nasal [place] [Flonase 2 spr EA NOSTRIL HS 02/02/24 09/10/24 History Nasal [place]] Artificial Tears-Hypromellose 1 drop BOTH EYES TID PRN 03/10/24 09/10/24 History [Artificial Tear Drops] Potassium Chloride ER [K-Dur 20] 20 meq PO HS 03/15/24 09/10/24 History Cholecalciferol (Vitamin D3) 50 mcg PO HS 05/03/24 09/10/24 History [Vitamin D3 (50 Mcg = 2000 Iu)] Ferrous Sulfate [Iron (65 MG 325 mg PO HS 05/03/24 09/10/24 History Elemental)] Ipratropium-Albuterol Nebulize 3 ml INHALATION RT-QID PRN 05/24/24 09/10/24 History [Duoneb 0.5 mg-3 mg/3 ml Soln] Aspirin EC [Ecotrin Low Dose] 81 mg PO HS #90 tab 05/25/24 09/10/24 Rx Atorvastatin [Lipitor] 80 mg PO HS #90 tab 05/25/24 09/10/24 Rx Isosorbide Mononitrate ER [Imdur] 30 mg PO HS #90 tab 05/25/24 09/10/24 Rx Magnesium Oxide [Mag-Ox] 400 mg PO HS #90 tab 05/25/24 09/10/24 Rx Metoprolol Succinate (ER) [Toprol 50 mg PO HS #90 tab 05/25/24 09/10/24 Rx XL] Ticagrelor [Brilinta] 90 mg PO HS #90 tab 05/25/24 09/10/24 Rx Albuterol Sulfate [Ventolin HFA] 1 - 2 puff INHALATION RT-Q6H PRN 09/10/24 09/10/24 History Allergies Allergy/AdvReac Type Severity Reaction Status Date / Time [place] And Derivatives Allergy Rash/Hives Verified 09/10/24 08:35 [[place]] latex Allergy Rash/Hives Verified 09/10/24 08:35 amlodipine [From Norvasc] AdvReac Cough Verified 09/10/24 08:35 cinnamon AdvReac Nausea Verified 09/10/24 08:35 clonidine AdvReac "almost Verified 09/10/24 08:35 passed out" gabapentin AdvReac Dizziness Verified 09/10/24 08:35 Influenza Virus Vaccines AdvReac Nausea & Verified 09/10/24 08:35 Vomiting lisinopril AdvReac Cough Verified 09/10/24 08:35 morphine AdvReac Nausea & Verified 09/10/24 08:35 Vomiting sucralfate [From Carafate] AdvReac Abdominal Verified 09/10/24 08:35 Pain tomato AdvReac Diarrhea Verified 09/10/24 08:35 Physical Exam Vitals: Vital Signs Temp Pulse Resp BP Pulse Ox 09/10/24 08:19 90 09/10/24 08:13 94 09/10/24 07:48 93 18 156/99 96 09/10/24 05:02 89 16 123/75 09/10/24 03:05 98 18 138/84 97 09/10/24 01:22 99 16 114/78 96 09/09/24 23:15 98 16 93/67 94 L 09/09/24 21:10 98.1 F 96 18 97/74 95 Intake and Output 09/09/24 09/10/24 09/10/24 22:59 06:59 14:59 Other: Weight 90.718 kg Results CBC & Chem 7: 09/09/24 22:20 09/09/24 22:20 Labs: Abnormal Lab Results - Last 24 Hours (Table) 09/09/24 09/09/24 09/09/24 Range/Units 22:20 22:20 23:40 RDW 16.8 H (11.5-15.5) % Sodium 149 H (137-145) mmol/L Chloride 110 H (98-107) mmol/L Calcium 8.3 L (8.4-10.2) mg/dL AST 37 H (14-36) U/L Alkaline Phosphatase 143 H (38-126) U/L Serum Alcohol 329 H* mg/dL
[2024-09-10] MEDS: SYMBICORT 160-4.5 MCG INHALER INHALATION SCH (18:53)
[2024-09-10] MEDS: CHOLECALCIFEROL 25 MCG (1000 IU) TABLET PO SCH (20:26)
[2024-09-10] MEDS: ISOSORBIDE MONONITRATE ER 30 MG TAB.ER.24H PO SCH (20:26)
[2024-09-10] MEDS: TICAGRELOR 90 MG TAB PO SCH (20:26)
[2024-09-10] MEDS: ASPIRIN 81 MG PO SCH (20:26)
[2024-09-10] MEDS: METOPROLOL SUCCINATE (ER) 50 MG TAB.ER.24H PO SCH (20:27)
[2024-09-10] MEDS: MAGNESIUM OXIDE 400 MG TAB PO SCH (20:27)
[2024-09-10] MEDS: MULTIVITAMINS, THERA 1 EACH TAB PO SCH (20:27)
[2024-09-10] MEDS: POTASSIUM CHLORIDE ER 20 MEQ TAB.ER PO SCH (20:27)
[2024-09-10] MEDS: FERROUS SULFATE 325 MG TAB PO SCH (20:27)
--- NOTE | 2024-09-10 20:28 | CONS ---
CONSULTATION HISTORY OF PRESENT ILLNESS: Anna Marie is a 64-year-old lady with history of chronic total occlusion of the right coronary artery, mild to moderate mitral regurgitation, CVA, status post left carotid stenting, hypertension, dyslipidemia, cirrhosis liver and alcoholic liver disease, alcohol abuse, comes to hospital primarily intoxicated secondary to ETOH abuse. She complained of left-sided chest pain along with this. It is constant, not related to exertion. No source of diaphoresis. There is no definite radiation to neck, arm, or back. The patient had a stress test in February, which was negative for ischemia and at the time of my evaluation this morning, she is less intoxicated. She is free of symptoms. Denies any chest pain or difficulty in breathing. EKG shows sinus rhythm with nonspecific ST-T wave changes. Cardiac enzymes are all negative. Her ETOH level was 329, potassium is 3.6, creatinine is 0.8, hemoglobin is 12.3. PAST MEDICAL HISTORY: Significant for coronary artery disease, hypertension, carotid stenosis, status post carotid stenting, dyslipidemia, and COPD. MEDICATIONS: At home included, 1. Aspirin. 2. Brilinta. 3. Toprol-XL 50 daily. 4. Imdur 30 daily. 5. Lipitor. ALLERGIES: She has multiple drug allergies as charted. FAMILY HISTORY: Negative for premature coronary artery disease. SOCIAL HISTORY: Significant for smoking and ETOH abuse. REVIEW OF SYSTEMS: 14 out of 14 review of systems has been performed. Pertinents are as documented. PHYSICAL EXAMINATION: GENERAL: Comfortable at rest. VITAL SIGNS: Afebrile. Heart rate is 90 beats per minute. Blood pressure is 150/92, respiratory rate is 18. NECK: There is no jugular venous distention. Carotid upstroke is normal. There is no bruit. CHEST: Reveals good air entry bilaterally. HEART: Reveals first and second heart sounds. No gallop. No murmur. ABDOMEN: Soft. EXTREMITIES: Did not reveal any edema. Peripheral pulses are felt. IMAGING STUDIES: EKG shows sinus rhythm with nonspecific ST-T wave changes. Three sets of cardiac enzymes are negative. ASSESSMENT: 1. Atypical chest pain. 2. Carotid stenosis, status post carotid stenting. 3. Hypertension. 4. Dyslipidemia. PLAN: Resume her home medications, especially the Toprol, aspirin, Brilinta, Imdur, and atorvastatin. No other cardiac workup at this time. MMODL / IJN: [id number] /
[2024-09-10] MEDS: FLUTICASONE NASAL 50MCG/SPRAY 16GM BTL EA NOSTRIL SCH (21:27)
[2024-09-11 07:47] VITALS: BP 150/98; TEMP 98.2
[2024-09-11 08:40] LABS: Basophils # (A) 0.08 X 10*3/uL (0.00-0.10); Basophils % (A) 1.4 %; Eosinophils # (A) 0.05 X 10*3/uL (0.04-0.35); Eosinophils % (A) 0.9 %; HCT 34.1 % (37.2-46.3); Lymphocytes # (A) 1.25 X 10*3/uL (0.90-5.00); Lymphocytes % (A) 22.3 %; MCH 30.3 pg (27.0-32.0); MCHC 32.3 g/dL (32.0-37.0); MCV 93.9 FL (80.0-97.0); Monocytes # (A) 0.45 X 10*3/uL (0.20-1.00); NRBC Per 100 WBC 0 X 10*3/uL (0.00-0.01); Neutrophils # (A) 3.76 X 10*3/uL (1.80-7.70); Neutrophils % (A) 67.2 %; Platelet Count 94 X 10*3/uL (140-440); RBC 3.63 X 10*6/uL (4.10-5.20)
[2024-09-11 08:47] LABS: ALT 17 U/L (8-44); AST 26 U/L (13-35); Albumin 3.9 g/dL (3.8-4.9); Alkaline Phosphatase 131 U/L (41-126); Blood Urea Nitrogen 7.3 mg/dL (9.0-27.0); Carbon Dioxide 24.1 mmol/L (21.6-31.8); Chloride 104 mmol/L (96-109); Chol/HDL Ratio 2.76 Ratio; Globulin 2.3 g/dL (1.6-3.3); Glucose 108 mg/dL (70-110); LDL Cholesterol,Calculated 128.7 mg/dL (0.0-131.0); Magnesium 1.9 mg/dL (1.5-2.4); Potassium 3.3 mmol/L (3.5-5.5); Sodium 141 mmol/L (135-145); Total Bilirubin 0.5 mg/dL (0.3-1.2); Total Protein 6.2 g/dL (6.2-8.2)
[2024-09-11] MEDS ORDERED: ASPIRIN 325 MG TAB PO SCH (09:00)
--- NOTE | 2024-09-11 09:16 | P.PN ---
Subjective Progress Note Date: 09/11/24 This is a 64-year-old female patient of Dr. Eugenio Howard with past medical history of chronically total occlusion of the right coronary artery, mild to moderate mitral regurgitation, CVA, status post left carotid stenting, hypertension, dyslipidemia, cirrhosis of the liver and alcoholic liver disease, alcohol abuse. Patient presented to the hospital due to intoxication secondary to alcohol abuse. Patient had left-sided chest pain along with this. Not related to exertion. No radiation. Stress test in February was negative for ischemia. She has had no further episodes of chest pain. Physical examination: Gen: This is a 64-year-old female in no acute distress VS: reviewed HEENT: Head is atraumatic, normocephalic. Pupils equal, round. Sclerae is anicteric. NECK: Supple. No JVD. LUNGS: Clear to auscultation. No wheezes or rhonchi. No intercostal retractions. HEART: Regular rate and rhythm. No murmur. ABDOMEN: Soft No tenderness. EXTREMITIES: No pedal edema. No calf tenderness. NEUROLOGICAL: Patient is awake, alert and oriented x3. Assessment: Atypical chest pain, acute coronary syndrome ruled out Carotid stenosis status post carotid stenting Hypertension Dyslipidemia Plan: Continue patient's home cardiac medications Add losartan 25 mg daily Patient is cleared for discharge and may follow-up in the office with Dr. Vidal in 2 weeks. Nurse practitioner note has been reviewed, I agree with documented findings and plan of care. Patient was seen and examined. Objective - Vital Signs Vital signs: Vital Signs Temp 98.2 F 09/11/24 07:00 Pulse 77 09/11/24 07:00 Resp 16 09/11/24 07:00 BP 150/98 09/11/24 07:00 Pulse Ox 93 L 09/11/24 07:00 FiO2 Intake & Output 09/10/24 09/11/24 09/11/24 18:59 06:59 18:59 Output Total 1900 Balance -1900 Weight 90.718 kg Output: Urine 1900 Other: Voiding Method External Catheter External Catheter # Voids 1 # Bowel Movements 1 1 - Labs CBC & Chem 7: 09/11/24 04:40 09/11/24 04:40
[2024-09-11] MEDS: LOSARTAN 25 MG TAB PO SCH (09:17)
[2024-09-11] MEDS: ENOXAPARIN 40 MG/0.4 ML SYRINGE SQ SCH (09:18)
[2024-09-11] MEDS: ONDANSETRON 4 MG/2 ML VIAL IVP PRN (09:19)
[2024-09-11 10:18] VITALS: PULSE 76; RESP 18
[2024-09-11 13:19] LABS: Appearance,Urine Cloudy (Clear); Bacteria,Urine Rare /hpf; Bilirubin,Urine Negative (Negative); Blood,Urine Trace (Negative); Color,Urine Colorless; Glucose,Urine (UA) Negative (Negative); Ketones,Urine Negative (Negative); Leukocyte Esterase,Urine Large (Negative); Nitrite,Urine Negative (Negative); PH, Urine 7.5 (5.0-8.0); Protein,Urine Negative (Negative); RBC,Urine 8 /hpf (0-5); Specific Gravity,Urine 1.006 (1.001-1.035); Squamous Epithelial Cell,Urine <1 /hpf (0-4); Urobilinogen,Urine <2.0 mg/dL (<2.0); WBC,Urine >182 /hpf (0-5)
--- NOTE | 2024-09-11 15:44 | P.DS ---
Providers Date of admission: 09/10/24 02:37 Discharge Diagnosis: Acute alcohol intoxication Atypical chest pain COPD with no acute exacerbation Hypertension History of seizure disorder Hospital Course: Patient is a 64-year-old female with asthma, CAD, COPD, history of CVA/TIA hypertension, history of DE, seizure disorder, chronic alcohol abuse presenting with chest pain. She stated his chest pain started a couple weeks ago and describes it as an aching pain that is associated with right arm numbness. She states she has had a history of heart catheterization done at [facility]. Patient admits to nausea. When asked she states her last drink was yesterday, and states she drinks fairly often. She typically drinks wine, whiskey, vodka deal with her chronic back pain. She states she has tried to quit and wants to quit now. EKG independently interpreted displays sinus rhythm, rate 96 bpm QTc 438 ms. CXR displays no acute pulmonary process Serum alcohol 329, troponin negative x 3, lipase 65 T98.1 F, VT 90, RR 18, BP 156/99, O2 sat 96% on room air Patient admitted to internal medicine service for acute alcoholic intoxication. Cardiology consulted. While admitted she was given 2 g Ativan per CIWA protocol.CIWA score today is at 1. She admits to feeling much better today and is ready to go home. She was seen by neon glass blower and was put on losartan 25 mg daily, and was cleared by cardiology. Patient admits to dysuria, following UA was positive for UTI. Is being discharged with Keflex for the UTI. He is also being discharged with Cozaar 25 mg. She is to follow-up with her primary care provider and has a scheduled follow-up with Dr. Howard on 09/25/2024 at 2:45 PM. She is being discharged home Vital signs reviewed and stable. Physical examination: Vital signs reviewed General: non toxic, no distress, appears at stated age, normal weight Derm: no unusual rashes/lesions, warm Head: atraumatic, normocephalic, symmetric Eyes: EOMI, anicteric sclera, pupils equal round reactive to light ENT: Nose and ears atraumatic Neck: No cervical lymphadenopathy, trachea midline, supple Mouth: no lip lesion, mucus membranes moist Cardiovascular: S1S2 reg, no murmur, positive dorsalis pedis pulse bilateral, no edema Lungs: CTA bilateral, no rhonchi, no rales, no accessory muscle use Abdominal: soft, nontender to palpation, no guarding Ext: muscle strength 5 out of 5 in all 4 extremities grossly, no gross muscle atrophy Neuro: CN II-XI grossly intact, no gross focal neuro deficits Psych: Alert, oriented to person, place, and time A total of greater than 30 minutes of time were spent preparing this complex discharge summary. Patient was discharge on September 11, 2024 at 1:59 PM. Attestation I have seen and examined this patient with my resident , discussed the same with the resident/CATHLEEN, and agree with the dictator's assessment and plan as written Dr. Travis francisco Expected date of discharge: 09/11/24 Attending physician: Hellen Jackson Consults: 09/10/24 02:35 Consult Physician Routine Consulting Provider: Parish Kay Consult Reason/Comments: chest pain Do you want consulting provider notified?: Yes Primary care physician: Miya Johnson Plan - Discharge Summary Discharge Rx Participant: Yes New Discharge Prescriptions: New Cephalexin [Keflex] 500 mg PO Q12HR 7 Days #14 cap Losartan [Cozaar] 25 mg PO DAILY #30 tab Continue Budesonide/Formoterol Fumarate [Symbicort 160-4.5 Mcg Inhaler] 2 puff INHALATION RT-HS Multivitamin [Multivitamins Adult Gummies] 2 tab PO HS Ferrous Sulfate [Iron (65 MG Elemental)] 325 mg PO HS Ipratropium-Albuterol Nebulize [Duoneb 0.5 mg-3 mg/3 ml Soln] 3 ml INHALATION RT-QID PRN PRN Reason: Shortness Of Breath Aspirin EC [Ecotrin Low Dose] 81 mg PO HS #90 tab Isosorbide Mononitrate ER [Imdur] 30 mg PO HS #90 tab Atorvastatin [Lipitor] 80 mg PO HS #90 tab Metoprolol Succinate (ER) [Toprol XL] 50 mg PO HS #90 tab Brimonidine Tartrate [Alphagan P 0.2% Ophth Soln] 1 drop BOTH EYES BID Fluticasone Nasal [place] [Flonase Nasal [place]] 2 spr EA NOSTRIL HS Artificial Tears-Hypromellose [Artificial Tear Drops] 1 drop BOTH EYES TID PRN PRN Reason: Dry Eye(S) Potassium Chloride ER [K-Dur 20] 20 meq PO HS Cholecalciferol (Vitamin D3) [Vitamin D3 (50 Mcg = 2000 Iu)] 50 mcg PO HS Ticagrelor [Brilinta] 90 mg PO HS #90 tab Magnesium Oxide [Mag-Ox] 400 mg PO HS #90 tab Albuterol Sulfate [Ventolin HFA] 1 - 2 puff INHALATION RT-Q6H PRN PRN Reason: Shortness Of Breath Discharge Medication List Budesonide/Formoterol Fumarate [Symbicort 160-4.5 Mcg Inhaler] 2 puff INHALATION RT-HS 07/29/23 [History] Multivitamin [Multivitamins Adult Gummies] 2 tab PO HS 12/04/23 [History] Brimonidine Tartrate [Alphagan P 0.2% Ophth Soln] 1 drop BOTH EYES BID 02/02/24 [History] Fluticasone Nasal [place] [Flonase Nasal [place]] 2 spr EA NOSTRIL HS 02/02/24 [History] Artificial Tears-Hypromellose [Artificial Tear Drops] 1 drop BOTH EYES TID PRN 03/10/24 [History] Potassium Chloride ER [K-Dur 20] 20 meq PO HS 03/15/24 [History] Cholecalciferol (Vitamin D3) [Vitamin D3 (50 Mcg = 2000 Iu)] 50 mcg PO HS 05/03/24 [History] Ferrous Sulfate [Iron (65 MG Elemental)] 325 mg PO HS 05/03/24 [History] Ipratropium-Albuterol Nebulize [Duoneb 0.5 mg-3 mg/3 ml Soln] 3 ml INHALATION RT-QID PRN 05/24/24 [History] Aspirin EC [Ecotrin Low Dose] 81 mg PO HS #90 tab 05/25/24 [Rx] Atorvastatin [Lipitor] 80 mg PO HS #90 tab 05/25/24 [Rx] Isosorbide Mononitrate ER [Imdur] 30 mg PO HS #90 tab 05/25/24 [Rx] Magnesium Oxide [Mag-Ox] 400 mg PO HS #90 tab 05/25/24 [Rx] Metoprolol Succinate (ER) [Toprol XL] 50 mg PO HS #90 tab 05/25/24 [Rx] Ticagrelor [Brilinta] 90 mg PO HS #90 tab 05/25/24 [Rx] Albuterol Sulfate [Ventolin HFA] 1 - 2 puff INHALATION RT-Q6H PRN 09/10/24 [History] Cephalexin [Keflex] 500 mg PO Q12HR 7 Days #14 cap 09/11/24 [Rx] Losartan [Cozaar] 25 mg PO DAILY #30 tab 09/11/24 [Rx] Follow up Appointment(s)/Referral(s): Miya Johnson MD [Primary Care Provider] - 1-2 days Unruly Howard MD [STAFF PHYSICIAN] - 09/25/24 2:45 pm Patient Instructions/Handouts: Chest Pain (DC), Abuse of Alcohol (DC) Discharge/Stand Alone Forms: AA Meetings [facility] - [facility], AA Meetings [facility], Who Do I Call?, Community Resources, Outpatient Counseling, In Substance Abuse Facilities Discharge Disposition: HOME SELF-CARE
[2024-09-11] MEDS ORDERED: ATORVASTATIN 80 MG TAB PO SCH (21:00)
== END 2024-09-11 15:30 | disposition home or self-care (01) ==
LOC: EC 21:08 → 6NMEDSUR 09-10 02:37
PROVIDERS: ADMIT Internal Medicine; ATTEND Internal Medicine
DX: F10.129 Alcohol abuse with intoxication, unspecified (principal); R07.89 Other chest pain; R20.0 Anesthesia of skin; I10 Essential (primary) hypertension; J44.9 Chronic obstructive pulmonary disease, unspecified; I25.10 Atherosclerotic heart disease of native coronary artery without angina pectoris; N39.0 Urinary tract infection, site not specified; I25.2 Old myocardial infarction; E78.5 Hyperlipidemia, unspecified; G89.29 Other chronic pain; M54.9 Dorsalgia, unspecified; G40.909 Epilepsy, unspecified, not intractable, without status epilepticus; F32.A Depression, unspecified; F41.9 Anxiety disorder, unspecified; F17.200 Nicotine dependence, unspecified, uncomplicated; Z86.73 Personal history of transient ischemic attack (TIA), and cerebral infarction without residual deficits; Z79.51 Long term (current) use of inhaled steroids; Z79.899 Other long term (current) drug therapy; Z88.8 Allergy status to other drugs, medicaments and biological substances; I65.29 Occlusion and stenosis of unspecified carotid artery; Z80.1 Family history of malignant neoplasm of trachea, bronchus and lung; Z82.49 Family history of ischemic heart disease and other diseases of the circulatory system
CPT/HCPCS: 96376 ×2; 96372; 96375; 96361 ×2; 96374; 99285; 36415; 94640 ×2; 93005; 84439; 83880; 80061; 80053 ×2; 84443; 82150; 83690; 83735 ×2; 84484 ×2; 85025 ×2; 85610; 85730; 81001; 83036; 71046; G0378 ×2; G0480; J2060; J2405; J1650; 80320

== ENCOUNTER 2024-09-22 10:02 | Emergency (ER) | payer OTHER ==
--- NOTE | 2024-09-22 10:54 | ED ---
General Adult HPI - General Chief complaint: Back Pain/Injury Stated complaint: Fall-back pain Time Seen by Provider: 09/22/24 10:20 Source: patient, RN notes reviewed Mode of arrival: EMS Limitations: no limitations - History of Present Illness Initial comments: This is a 64-year-old female who is well-known to emergency department presenting via EMS for complaint of back pain. On examination patient is noted to be severely intoxicated. States that she took about 4 shots of whiskey before she wrecked Emergency Department. States that she fell approximately a week ago onto her back. She denies loss of bladder or bowel continence or saddle anesthesias. - Related Data Home Medications Medication Instructions Recorded Confirmed Budesonide/Formoterol Fumarate 2 puff INHALATION RT-HS 07/29/23 09/10/24 [Symbicort 160-4.5 Mcg Inhaler] Multivitamin [Multivitamins Adult 2 tab PO HS 12/04/23 09/10/24 Gummies] Brimonidine Tartrate [Alphagan P 1 drop BOTH EYES BID 02/02/24 09/10/24 0.2% Ophth Soln] Fluticasone Nasal [place] [Flonase 2 spr EA NOSTRIL HS 02/02/24 09/10/24 Nasal [place]] Artificial Tears-Hypromellose 1 drop BOTH EYES TID PRN 03/10/24 09/10/24 [Artificial Tear Drops] Potassium Chloride ER [K-Dur 20] 20 meq PO HS 03/15/24 09/10/24 Cholecalciferol (Vitamin D3) 50 mcg PO HS 05/03/24 09/10/24 [Vitamin D3 (50 Mcg = 2000 Iu)] Ferrous Sulfate [Iron (65 MG 325 mg PO HS 05/03/24 09/10/24 Elemental)] Ipratropium-Albuterol Nebulize 3 ml INHALATION RT-QID PRN 05/24/24 09/10/24 [Duoneb 0.5 mg-3 mg/3 ml Soln] Albuterol Sulfate [Ventolin HFA] 1 - 2 puff INHALATION RT-Q6H PRN 09/10/24 09/10/24 Previous Rx's Medication Instructions Recorded Aspirin EC [Ecotrin Low Dose] 81 mg PO HS #90 tab 05/25/24 Atorvastatin [Lipitor] 80 mg PO HS #90 tab 05/25/24 Isosorbide Mononitrate ER [Imdur] 30 mg PO HS #90 tab 05/25/24 Magnesium Oxide [Mag-Ox] 400 mg PO HS #90 tab 05/25/24 Metoprolol Succinate (ER) [Toprol 50 mg PO HS #90 tab 05/25/24 XL] Ticagrelor [Brilinta] 90 mg PO HS #90 tab 05/25/24 Cephalexin [Keflex] 500 mg PO Q12HR 7 Days #14 cap 09/11/24 Losartan [Cozaar] 25 mg PO DAILY #30 tab 09/11/24 Allergies Allergy/AdvReac Type Severity Reaction Status Date / Time [place] And Derivatives Allergy Rash/Hives Verified 09/10/24 08:35 [[place]] latex Allergy Rash/Hives Verified 09/10/24 08:35 amlodipine [From Norvasc] AdvReac Cough Verified 09/10/24 08:35 cinnamon AdvReac Nausea Verified 09/10/24 08:35 clonidine AdvReac "almost Verified 09/10/24 08:35 passed out" gabapentin AdvReac Dizziness Verified 09/10/24 08:35 Influenza Virus Vaccines AdvReac Nausea & Verified 09/10/24 08:35 Vomiting lisinopril AdvReac Cough Verified 09/10/24 08:35 morphine AdvReac Nausea & Verified 09/10/24 08:35 Vomiting sucralfate [From Carafate] AdvReac Abdominal Verified 09/10/24 08:35 Pain tomato AdvReac Diarrhea Verified 09/10/24 08:35 Review of Systems ROS Statement: Those systems with pertinent positive or pertinent negative responses have been documented in the HPI. ROS Other: All systems not noted in ROS Statement are negative. Past Medical History Past Medical History: Asthma, Coronary Artery Disease (CAD), COPD, CVA/TIA, Eye Disorder, Hypertension, Liver Disease, Myocardial Infarction (SC), Seizure D isorder, Vascular Disorder Additional Past Medical History / Comment(s): Pt recently admitted to [facility] for diarrhea, ETOH abuse. 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 Past Psychological History: Anxiety, Depression Smoking Status: Current every day smoker Past Alcohol Use History: Abuse, Daily, Heavy Past Drug Use History: Marijuana - Past Family History Mother Family Medical History: Cancer, Congestive Heart Failure (CHF), Coronary Artery Disease (CAD), Hyperlipidemia Additional Family Medical History / Comment(s): Mother at age 85 from lung cancer. Father Family Medical History: Cancer, COPD Additional Family Medical History / Comment(s): Father at age 63 from lung cancer. Brother(s) Additional Family Medical History / Comment(s): Patient has a total of 7 siblings. 5 are alive without any major medical problems she is aware of. 2 siblings have one from alcohol abuse and 1. Coronary artery disease. Daughter(s) Family Medical History: No Reported History Additional Family Medical History / Comment(s): Patient has one daughter with no major medical problems. General Exam Limitations: no limitations General appearance: alert, in no apparent distress, appears intoxicated ENT exam: Present: normal exam, mucous membranes moist Neck exam: Present: normal inspection. Absent: tenderness, meningismus, lymphadenopathy Respiratory exam: Present: normal lung sounds bilaterally. Absent: respiratory distress, wheezes, rales, rhonchi, stridor Cardiovascular Exam: Present: regular rate, normal rhythm, normal heart sounds. Absent: systolic murmur, diastolic murmur, rubs, gallop, clicks GI/Abdominal exam: Present: soft, normal bowel sounds. Absent: distended, tenderness, guarding, rebound, rigid Extremities exam: Present: normal inspection, full ROM, normal capillary refill. Absent: tenderness, pedal edema, joint swelling, calf tenderness Back exam: Present: normal inspection, full ROM, tenderness (lumbar spine). Absent: CVA tenderness (R), CVA tenderness (L) Skin exam: Present: warm, dry, intact, normal color. Absent: rash Course Vital Signs 09/22/24 09/22/24 10:22 12:37 Temperature 97.4 F L 97.8 F Pulse Rate 62 61 Respiratory 16 18 Rate Blood Pressure 135/89 131/79 O2 Sat by Pulse 99 98 Oximetry Medical Decision Making - Medical Decision Making Was pt. sent in by a medical professional or institution (, PA, SHIPPING RECEIVING MANAGER, urgent care, hospital, or care home...) When possible be specific @ -No Did you speak to anyone other than the patient for history (EMS, parent, family, police, friend...)? What history was obtained from this source @ -No Did you review nursing and triage notes (agree or disagree)? Why? @ -I reviewed and agree with nursing and triage notes Were old charts reviewed (outside hosp., previous admission, EMS record, old EKG, old radiological studies, urgent care reports/EKG's, care home records)? Report findings @ -No old charts were reviewed Differential Diagnosis (chest pain, altered mental status, abdominal pain women, abdominal pain men, vaginal bleeding, weakness, fever, dyspnea, syncope, headache, dizziness, GI bleed, back pain, seizure, CVA, palpatations, mental health, musculoskeletal)? @ -Differential Back Pain: Strain, zoster, cauda equina syndrome, epidural abscess, vertebral osteomyelitis, discitis, fracture, subluxation, disc herniation, DJD, spinal stenosis, dissection, AAA, pancreatitis, peptic ulcer disease, pyelonephritis, kidney stone, this is not meant to be an all-inclusive list. EKG interpreted by me (3pts min.). @ -None X-rays interpreted by me (1pt min.). @ -None done CT interpreted by me (1pt min.). @ -None done U/S interpreted by me (1pt. min.). @ -None done What testing was considered but not performed or refused? (CT, X-rays, U/S, labs)? Why? @ -None What meds were considered but not given or refused? Why? @ -None Did you discuss the management of the patient with other professionals (professionals i.e. , YESSY, SHIPPING RECEIVING MANAGER, lab, RT, psych nurse, social work assistant, milled lumber grader, teacher, state wildlife officer, pillowcase sewer)? Give summary @ -No Was smoking cessation discussed for >3mins.? @ -No Was critical care preformed (if so, how long)? @ -No Were there social determinants of health that impacted care today? How? (Homelessness, low income, unemployed, alcoholism, drug addiction, transportation, low edu. Level, literacy, decrease access to med. care, intermediate, rehab)? @ -No Was there de-escalation of care discussed even if they declined (Discuss DNR or withdrawal of care, Hospice)? DNR status @ -No What co-morbidities impacted this encounter? (DM, HTN, Smoking, COPD, CAD, Cancer, CVA, ARF, Chemo, Hep., AIDS, mental health diagnosis, sleep apnea, morbid obesity)? @ -None Was patient admitted / discharged? Hospital course, mention meds given and route, prescriptions, significant lab abnormalities, going to OR and other pertinent info. @ -Discharge. 64-year-old female with lumbar back pain. On my evaluation the patient is noted to be intoxicated. Vitals are stable. Patient has lumbar back pain to palpation that is mildly exacerbated with range of motion. There are no overlying skin changes or edema. Negative straight leg test. There is no red flag findings concerning for cauda equina. Imaging is deferred at this time as patient symptoms are likely secondary to muscle sprain/mild ecchymosis. Patient is provided with dose of Toradol. On reevaluation states that symptoms have mildly alleviated. Patient is stable for discharge at this time. Discussed justice Salas Undiagnosed new problem with uncertain prognosis? @ -No Drug Therapy requiring intensive monitoring for toxicity (Heparin, Nitro, Insulin, Cardizem)? @ -No Were any procedures done? @ -No Diagnosis/symptom? @ -alcohol abuse, alcohol intoxication, back pain Acute, or Chronic, or Acute on Chronic? @ -Acute Uncomplicated (without systemic symptoms) or Complicated (systemic symptoms)? @ -Uncomplicated Side effects of treatment? @ -No Exacerbation, Progression, or Severe Exacerbation? @ -No Poses a threat to life or bodily function? How? (Chest pain, [place], SC, pneumonia, PE, COPD, DKA, ARF, appy, cholecystitis, CVA, Diverticulitis, Homicidal, Suicidal, threat to staff... and all critical care pts) @ -No Disposition Clinical Impression: Fall, Back pain, Alcohol abuse, Alcohol intoxication Disposition: HOME SELF-CARE Condition: Stable Instructions (If sedation given, give patient instructions): Acute Low Back Pain (ED) Additional Instructions: Please return to the Emergency Department if symptoms worsen or any other concerns. Is patient prescribed a controlled substance at d/c from ED?: No Referrals: Miya Johnson MD [Primary Care Provider] - 1-2 days Time of Disposition: 12:19
[2024-09-22] MEDS: KETOROLAC 15 MG/ML 1 ML VIAL IM STA (11:01)
[2024-09-22 12:39] VITALS: BP 131/79; PULSE 61; RESP 18; TEMP 97.8
== END 2024-09-22 12:42 | disposition home or self-care (01) ==
LOC: EC 10:02
DX: M54.50 Low back pain, unspecified (principal); F10.129 Alcohol abuse with intoxication, unspecified; F17.200 Nicotine dependence, unspecified, uncomplicated; Z88.7 Allergy status to serum and vaccine; Z88.5 Allergy status to narcotic agent; Z88.8 Allergy status to other drugs, medicaments and biological substances; Z91.040 Latex allergy status; Z91.018 Allergy to other foods; Z86.73 Personal history of transient ischemic attack (TIA), and cerebral infarction without residual deficits; W19.XXXA Unspecified fall, initial encounter
CPT/HCPCS: 99283; 96372; J1885

== ENCOUNTER 2024-09-22 21:57 | Emergency (ER) | payer OTHER ==
[2024-09-22 22:11] VITALS: RESP 18; TEMP 98.2
--- NOTE | 2024-09-22 22:28 | ED ---
General Adult HPI - General Chief complaint: Fall Stated complaint: Fall Time Seen by Provider: 09/22/24 22:00 Source: patient, EMS, RN notes reviewed, old records reviewed Mode of arrival: EMS Limitations: no limitations - History of Present Illness Initial comments: 64-year-old female presents status post fall. Patient had reported head injury with possible loss consciousness. Patient is a daily drinker and does appear intoxicated upon arrival. She also complains of low back pain from the fall. - Related Data Home Medications Medication Instructions Recorded Confirmed Budesonide/Formoterol Fumarate 2 puff INHALATION RT-HS 07/29/23 09/10/24 [Symbicort 160-4.5 Mcg Inhaler] Multivitamin [Multivitamins Adult 2 tab PO HS 12/04/23 09/10/24 Gummies] Brimonidine Tartrate [Alphagan P 1 drop BOTH EYES BID 02/02/24 09/10/24 0.2% Ophth Soln] Fluticasone Nasal Bend [Flonase 2 spr EA NOSTRIL HS 02/02/24 09/10/24 Nasal Bend] Artificial Tears-Hypromellose 1 drop BOTH EYES TID PRN 03/10/24 09/10/24 [Artificial Tear Drops] Potassium Chloride ER [K-Dur 20] 20 meq PO HS 03/15/24 09/10/24 Cholecalciferol (Vitamin D3) 50 mcg PO HS 05/03/24 09/10/24 [Vitamin D3 (50 Mcg = 2000 Iu)] Ferrous Sulfate [Iron (65 MG 325 mg PO HS 05/03/24 09/10/24 Elemental)] Ipratropium-Albuterol Nebulize 3 ml INHALATION RT-QID PRN 05/24/24 09/10/24 [Duoneb 0.5 mg-3 mg/3 ml Soln] Albuterol Sulfate [Ventolin HFA] 1 - 2 puff INHALATION RT-Q6H PRN 09/10/24 09/10/24 Previous Rx's Medication Instructions Recorded Aspirin EC [Ecotrin Low Dose] 81 mg PO HS #90 tab 05/25/24 Atorvastatin [Lipitor] 80 mg PO HS #90 tab 05/25/24 Isosorbide Mononitrate ER [Imdur] 30 mg PO HS #90 tab 05/25/24 Magnesium Oxide [Mag-Ox] 400 mg PO HS #90 tab 05/25/24 Metoprolol Succinate (ER) [Toprol 50 mg PO HS #90 tab 05/25/24 XL] Ticagrelor [Brilinta] 90 mg PO HS #90 tab 05/25/24 Cephalexin [Keflex] 500 mg PO Q12HR 7 Days #14 cap 09/11/24 Losartan [Cozaar] 25 mg PO DAILY #30 tab 09/11/24 Allergies Allergy/AdvReac Type Severity Reaction Status Date / Time Donahue And Derivatives Allergy Rash/Hives Verified 09/22/24 22:11 [Donahue] latex Allergy Rash/Hives Verified 09/22/24 22:11 amlodipine [From Norvasc] AdvReac Cough Verified 09/22/24 22:11 cinnamon AdvReac Nausea Verified 09/22/24 22:11 clonidine AdvReac "almost Verified 09/22/24 22:11 passed out" gabapentin AdvReac Dizziness Verified 09/22/24 22:11 Influenza Virus Vaccines AdvReac Nausea & Verified 09/22/24 22:11 Vomiting lisinopril AdvReac Cough Verified 09/22/24 22:11 morphine AdvReac Nausea & Verified 09/22/24 22:11 Vomiting sucralfate [From Carafate] AdvReac Abdominal Verified 09/22/24 22:11 Pain tomato AdvReac Diarrhea Verified 09/22/24 22:11 Review of Systems ROS Statement: Those systems with pertinent positive or pertinent negative responses have been documented in the HPI. ROS Other: All systems not noted in ROS Statement are negative. Past Medical History Past Medical History: Asthma, Coronary Artery Disease (CAD), COPD, CVA/TIA, Eye Disorder, Hypertension, Liver Disease, Myocardial Infarction (DE), Seizure Disorder, Vascular Disorder Additional Past Medical History / Comment(s): Pt recently admitted to [facility] for diarrhea, ETOH abuse. 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 Past Psychological History: Anxiety, Depression Smoking Status: Current every day smoker Past Alcohol Use History: Abuse, Daily, Heavy Past Drug Use History: Marijuana - Past Family History Mother Family Medical History: Cancer, Congestive Heart Failure (CHF), Coronary Artery Disease (CAD), Hyperlipidemia Additional Family Medical History / Comment(s): Mother at age 85 from lung cancer. Father Family Medical History: Cancer, COPD Additional Family Medical History / Comment(s): Father at age 63 from lung cancer. Brother(s) Additional Family Medical History / Comment(s): Patient has a total of 7 siblings. 5 are alive without any major medical problems she is aware of. 2 siblings have one from alcohol abuse and 1. Coronary artery disease. Daughter(s) Family Medical History: No Reported History Additional Family Medical History / Comment(s): Patient has one daughter with no major medical problems. General Exam General appearance: alert, in no apparent distress Head exam: Present: atraumatic, normocephalic Eye exam: Present: normal appearance, PERRL Neck exam: Present: other (C-collar placed by paramedics) Respiratory exam: Present: normal lung sounds bilaterally. Absent: respiratory distress, wheezes Cardiovascular Exam: Present: regular rate, normal rhythm Extremities exam: Present: normal inspection, normal capillary refill Neurological exam: Present: alert, oriented X3. Absent: motor sensory deficit Psychiatric exam: Present: normal affect, normal mood Skin exam: Present: warm, dry, abrasion (Right upper extremity). Absent: cyanosis, diaphoretic Course Vital Signs 09/22/24 22:05 Temperature 98.2 F Pulse Rate 92 Respiratory 18 Rate Blood Pressure 119/86 O2 Sat by Pulse 95 Oximetry Medical Decision Making - Medical Decision Making Was pt. sent in by a medical professional or institution (, PA, RV SERVICER, urgent care, hospital, or assisted...) When possible be specific @ -No Did you speak to anyone other than the patient for history (EMS, parent, family, police, friend...)? What history was obtained from this source @ -No Did you review nursing and triage notes (agree or disagree)? Why? @ -I reviewed and agree with nursing and triage notes Were old charts reviewed (outside hosp., previous admission, EMS record, old EKG, old radiological studies, urgent care reports/EKG's, assisted records)? Report findings @ -No old charts were reviewed Differential Diagnosis: Traumatic injury from fall, intracranial hemorrhage, cervical fracture or subluxation EKG interpreted by me (3pts min.). @ -As above X-rays interpreted by me (1pt min.). @X-ray of the lumbar spine is negative for displaced fracture CT interpreted by me (1pt min.). @ -CT brain and cervical spine negative for traumatic injury, no acute findings. U/S interpreted by me (1pt. min.). @ -None done What testing was considered but not performed or refused? (CT, X-rays, U/S, labs)? Why? @ -None What meds were considered but not given or refused? Why? @ -None Did you discuss the management of the patient with other professionals (professionals i.e. , PA, RV SERVICER, lab, RT, psych nurse, licensed clinical social worker, banquet steward, teacher, desk officer, nurse outreach case manager)? Give summary @ -No Was smoking cessation discussed for >3mins.? @ -No Was critical care preformed (if so, how long)? @ -No Were there social determinants of health that impacted care today? How? (Homelessness, low income, unemployed, alcoholism, drug addiction, transportation, low edu. Level, literacy, decrease access to med. care, usp, rehab)? @ -No Was there de-escalation of care discussed even if they declined (Discuss DNR or withdrawal of care, Hospice)? DNR status @ -No What co-morbidities impacted this encounter? (DM, HTN, Smoking, COPD, CAD, Cancer, CVA, ARF, Chemo, Hep., AIDS, mental health diagnosis, sleep apnea, morbid obesity)? @Daily alcohol abuse Was patient admitted / discharged? Hospital course, mention meds given and route, prescriptions, significant lab abnormalities, going to OR and other pertinent info. @ -[64-year-old female presenting with alcohol intoxication, fall, reported head injury. Patient was placed in a c-collar by paramedics. Patient received CT imaging of the brain and C-spine which was negative. She also complained of low back pain and x-rays of the lumbar spine was performed which was negative. Patient observed until clinically sober and discharged in stable condition Undiagnosed new problem with uncertain prognosis? @ -No Drug Therapy requiring intensive monitoring for toxicity (Heparin, Nitro, Insulin, Cardizem)? @ -No Were any procedures done? @ -No Diagnosis/symptom? @ -Alcohol intoxication, fall Acute, or Chronic, or Acute on Chronic? @ -Acute on chronic Uncomplicated (without systemic symptoms) or Complicated (systemic symptoms)? @ -Default Side effects of treatment? @ -No Exacerbation, Progression, or Severe Exacerbation? @ -No Poses a threat to life or bodily function? How? (Chest pain, [place], [place], pneumonia, PE, COPD, DKA, ARF, appy, cholecystitis, CVA, Diverticulitis, Homicidal, Suicidal, threat to staff... and all critical care pts) @Moderate risk, alcohol abuse Disposition Clinical Impression: Alcohol intoxication, Fall Disposition: HOME SELF-CARE Condition: Fair Instructions (If sedation given, give patient instructions): Fall Prevention for Older Adults (ED), Alcohol Intoxication (ED) Is patient prescribed a controlled substance at d/c from ED?: No Referrals: Miya Johnson MD [Primary Care Provider] - 1-2 days
--- NOTE | 2024-09-22 23:46 | XR ---
EXAM: XR Lumbosacral Spine, 2 or 3 Views CLINICAL HISTORY: ITS.REASON XR Reason: fall/pain TECHNIQUE: Frontal and lateral views of the lumbar spine and sacrum. COMPARISON: No relevant prior studies available. FINDINGS: Vertebrae: Osseous demineralization. Degenerative endplate changes. Chronic wedge deformity of L4. Normal alignment. Sacrum/coccyx: Unremarkable as visualized. No acute fracture. Disc spaces: Multilevel disc space narrowing. Soft tissues: Unremarkable. IMPRESSION: No acute findings in the lumbar spine.
--- NOTE | 2024-09-22 23:47 | CT ---
EXAM: CT Head Without Intravenous Contrast CLINICAL HISTORY: ITS.REASON CT Reason: fall head injury/pain TECHNIQUE: Axial computed tomography images of the head/brain without intravenous contrast. CTDI is 45.2 mGy and DLP is 1032 mGy-cm. This CT exam was performed using one or more of the following dose reduction techniques: automated exposure control, adjustment of the mA and/or kV according to patient size, and/or use of iterative reconstruction technique. COMPARISON: No relevant prior studies available. FINDINGS: Brain: Age-related cerebral volume loss. Periventricular and subcortical white matter hypoattenuation, consistent with chronic microangiopathy. Encephalomalacia in the LEFT GENERAL CLEANER territory, consistent with old infarct. No acute intracranial hemorrhage. No midline shift or mass effect. 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 Bones/joints: Unremarkable. No acute fracture. Soft tissues: Unremarkable. Sinuses: Unremarkable as visualized. No acute sinusitis. Mastoid air cells: Unremarkable as visualized. No mastoid effusion. IMPRESSION: 1. No acute intracranial hemorrhage. No midline shift or mass effect. 2. 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 3. Encephalomalacia in the LEFT GENERAL CLEANER territory, consistent with old infarct. EXAM: CT Cervical Spine Without Intravenous Contrast CLINICAL HISTORY: ITS.REASON CT Reason: fall head injury/pain TECHNIQUE: Axial computed tomography images of the cervical spine without intravenous contrast. CTDI is 14.8 mGy and DLP is 404.4 mGy-cm. This CT exam was performed using one or more of the following dose reduction techniques: automated exposure control, adjustment of the mA and/or kV according to patient size, and/or use of iterative reconstruction technique. COMPARISON: No relevant prior studies available. FINDINGS: The vertebral body heights are maintained. The craniocervical junction is intact. The atlanto-dens interval is maintained. The dens is intact. There is no spondylolisthesis. Multilevel cervical spondylosis and degenerative disc disease. Straightening of the cervical lordosis. The unenhanced neck soft tissues are grossly unremarkable. The visualized lung apices are grossly clear. IMPRESSION: No acute fracture or subluxation of the cervical spine.
[2024-09-23 01:39] VITALS: BP 145/95; PULSE 93
== END 2024-09-23 01:43 | disposition home or self-care (01) ==
LOC: EC 21:57
DX: S09.90XA Unspecified injury of head, initial encounter (principal); F10.129 Alcohol abuse with intoxication, unspecified; F17.200 Nicotine dependence, unspecified, uncomplicated; Z91.040 Latex allergy status; Z88.5 Allergy status to narcotic agent; Z91.018 Allergy to other foods; Z88.8 Allergy status to other drugs, medicaments and biological substances; Z88.7 Allergy status to serum and vaccine; W19.XXXA Unspecified fall, initial encounter
CPT/HCPCS: 70450; 72100; 72125; 99284

== ENCOUNTER 2024-09-25 11:33 | Emergency (ER) | payer OTHER ==
[2024-09-25 11:38] VITALS: TEMP 97.5
--- NOTE | 2024-09-25 12:17 | ED ---
Back Pain HPI - General Source: patient, EMS, RN notes reviewed Mode of arrival: EMS Limitations: no limitations - History of Present Illness MD Complaint: back pain <Era Harding - Last Filed: 09/25/24 16:38> <Ebonie Buck - Last Filed: 09/25/24 20:39> - General Chief Complaint: Back Pain/Injury Stated Complaint: back pain Time Seen by Provider: 09/25/24 11:40 - History of Present Illness Initial Comments: This is a 64-year-old female who presents to the emergency department for back pain and chest pain. Patient has a history of chronic back pain which she states is an ongoing issue. Chest pain started last night. Patient is well- known to this emergency department for recurrent visits often related to pain and alcohol intoxication. States that she is treating her pain with alcohol. She had 4 shots of vodka and 2 shots of wine today to help with the pain. Patient is unsure how to describe this pain, states that it just hurts. (Era Harding) - Related Data Home Medications Medication Instructions Recorded Confirmed Budesonide/Formoterol Fumarate 2 puff INHALATION RT-HS 07/29/23 09/10/24 [Symbicort 160-4.5 Mcg Inhaler] Multivitamin [Multivitamins Adult 2 tab PO HS 12/04/23 09/10/24 Gummies] Brimonidine Tartrate [Alphagan P 1 drop BOTH EYES BID 02/02/24 09/10/24 0.2% Ophth Soln] Fluticasone Nasal [place] [Flonase 2 spr EA NOSTRIL HS 02/02/24 09/10/24 Nasal [place]] Artificial Tears-Hypromellose 1 drop BOTH EYES TID PRN 03/10/24 09/10/24 [Artificial Tear Drops] Potassium Chloride ER [K-Dur 20] 20 meq PO HS 03/15/24 09/10/24 Cholecalciferol (Vitamin D3) 50 mcg PO HS 05/03/24 09/10/24 [Vitamin D3 (50 Mcg = 2000 Iu)] Ferrous Sulfate [Iron (65 MG 325 mg PO HS 05/03/24 09/10/24 Elemental)] Ipratropium-Albuterol Nebulize 3 ml INHALATION RT-QID PRN 05/24/24 09/10/24 [Duoneb 0.5 mg-3 mg/3 ml Soln] Albuterol Sulfate [Ventolin HFA] 1 - 2 puff INHALATION RT-Q6H PRN 09/10/24 09/10/24 Previous Rx's Medication Instructions Recorded Aspirin EC [Ecotrin Low Dose] 81 mg PO HS #90 tab 05/25/24 Atorvastatin [Lipitor] 80 mg PO HS #90 tab 05/25/24 Isosorbide Mononitrate ER [Imdur] 30 mg PO HS #90 tab 05/25/24 Magnesium Oxide [Mag-Ox] 400 mg PO HS #90 tab 05/25/24 Metoprolol Succinate (ER) [Toprol 50 mg PO HS #90 tab 05/25/24 XL] Ticagrelor [Brilinta] 90 mg PO HS #90 tab 05/25/24 Cephalexin [Keflex] 500 mg PO Q12HR 7 Days #14 cap 09/11/24 Losartan [Cozaar] 25 mg PO DAILY #30 tab 09/11/24 Allergies Allergy/AdvReac Type Severity Reaction Status Date / Time [place] And Derivatives Allergy Rash/Hives Verified 09/25/24 11:38 [[place]] latex Allergy Rash/Hives Verified 09/25/24 11:38 amlodipine [From Norvasc] AdvReac Cough Verified 09/25/24 11:38 cinnamon AdvReac Nausea Verified 09/25/24 11:38 clonidine AdvReac "almost Verified 09/25/24 11:38 passed out" gabapentin AdvReac Dizziness Verified 09/25/24 11:38 Influenza Virus Vaccines AdvReac Nausea & Verified 09/25/24 11:38 Vomiting lisinopril AdvReac Cough Verified 09/25/24 11:38 morphine AdvReac Nausea & Verified 09/25/24 11:38 Vomiting sucralfate [From Carafate] AdvReac Abdominal Verified 09/25/24 11:38 Pain tomato AdvReac Diarrhea Verified 09/25/24 11:38 Review of Systems ROS Other: All systems not noted in ROS Statement are negative. <Era Harding - Last Filed: 09/25/24 16:38> ROS Other: All systems not noted in ROS Statement are negative. <Ebonie Buck - Last Filed: 09/25/24 20:39> ROS Statement: Those systems with pertinent positive or pertinent negative responses have been documented in the HPI. Past Medical History Past Medical History: Asthma, Coronary Artery Disease (CAD), COPD, CVA/TIA, Eye Disorder, Hypertension, Liver Disease, Myocardial Infarction ([place]), Seizure Disorder, Vascular Disorder Additional Past Medical History / Comment(s): Pt recently admitted to [facility] for diarrhea, ETOH abuse. 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 Past Psychological History: Anxiety, Depression Smoking Status: Current every day smoker Past Alcohol Use History: Abuse, Daily, Heavy Past Drug Use History: Marijuana - Past Family History Mother Family Medical History: Cancer, Congestive Heart Failure (CHF), Coronary Artery Disease (CAD), Hyperlipidemia Additional Family Medical History / Comment(s): Mother at age 85 from lung cancer. Father Family Medical History: Cancer, COPD Additional Family Medical History / Comment(s): Father at age 63 from lung cancer. Brother(s) Additional Family Medical History / Comment(s): Patient has a total of 7 siblings. 5 are alive without any major medical problems she is aware of. 2 siblings have one from alcohol abuse and 1. Coronary artery disease. Daughter(s) Family Medical History: No Reported History Additional Family Medical History / Comment(s): Patient has one daughter with no major medical problems. <Era Harding - Last Filed: 09/25/24 16:38> General Exam General appearance: alert, appears intoxicated Head exam: Present: atraumatic, normocephalic, normal inspection Respiratory exam: Present: normal lung sounds bilaterally. Absent: respiratory distress, wheezes, rales, rhonchi, stridor Cardiovascular Exam: Present: regular rate, normal rhythm, normal heart sounds. Absent: systolic murmur, diastolic murmur, rubs, gallop, clicks Neurological exam: Present: alert, oriented X3, CN II-XII intact Psychiatric exam: Present: normal affect, normal mood Skin exam: Present: warm, dry, intact, normal color. Absent: rash <Era Harding - Last Filed: 09/25/24 16:38> Course Vital Signs 09/25/24 09/25/24 09/25/24 11:35 16:57 18:54 Temperature 97.5 F L Pulse Rate 101 H 110 H 56 L Respiratory 20 18 18 Rate Blood Pressure 101/60 141/94 144/82 O2 Sat by Pulse 100 97 97 Oximetry Medical Decision Making - Lab Data Result diagrams: 09/25/24 12:10 09/25/24 14:22 - Radiology Data Radiology results: report reviewed, image reviewed <Era Harding - Last Filed: 09/25/24 16:38> - Lab Data Result diagrams: 09/25/24 12:10 09/25/24 14:22 <Ebonie Buck - Last Filed: 09/25/24 20:39> - Medical Decision Making This is a 64 year old female who presents to the emergency department for back pain and chest pain. Was pt. sent in by a medical professional or institution? @ -No Did you speak to anyone other than the patient for history? @ -No Did you review nursing and triage notes? @ -Yes, and I agree, it is accurate with regards to the patient's symptoms. Were old charts reviewed? @ -Stress test from 02/27/2024 revealing no evidence of ischemia. Echocardiogram from 02/27/2024 demonstrates normal LV function and mild mitral regurg. Differential Diagnosis? @ -Differential Back Pain: Strain, zoster, cauda equina syndrome, epidural abscess, vertebral osteomyelitis, discitis, fracture, subluxation, disc herniation, DJD, spinal stenosis, dissection, AAA, pancreatitis, peptic ulcer disease, pyelonephritis, kidney stone, this is not meant to be an all-inclusive list. EKG interpreted by me (3pts min.)? @ -EKG interpreted by me demonstrating the following: Sinus rhythm. Ventricular rate 91 bpm, MD interval 145 ms, QRS duration 92 ms, QTc 432 ms. X-rays interpreted by me (1pt min.)? @ -Chest x-ray obtained, my interpretation identifies no localized consolidations or infiltrates. CT interpreted by me (1pt min.)? @ -Not obtained U/S interpreted by me (1pt. min.)? @ -Not obtained What testing was considered but not performed? (CT, X-rays, U/S, labs)? Why? @ -None What meds were considered but not given? Why? @ -None Did you discuss the management of the patient with other professionals? @ -No Did you reconcile home meds? @ -No Was smoking cessation discussed for >3mins.? @ -I discussed smoking cessation for greater than 3 minutes. The risk of smoking were discussed with the patient including but not limited to risks of cancer, stroke, coronary artery disease and COPD. Also discussed with patient were multiple methods of quitting smoking. Lastly we discussed the financial cost of smoking. Was critical care preformed (if so, how long)? @ -No Were there social determinants of health that impacted care today? How? (Homelessness, low income, unemployed, alcoholism, drug addiction, transportatio n, low edu. Level, literacy, decrease access to med. care, halfway, rehab)? @ -Alcoholism, leading to recurrent visits for intoxication Was there de-escalation of care discussed even if they declined? (Discuss DNR or withdrawal of care, Hospice)? @ -No What co-morbidities impacted this encounter? (DM, HTN, Smoking, COPD, CAD, Cancer, CVA, Hep., AIDS, mental health diagnosis, sleep apnea, morbid obesity)? @ -Alcoholism, smoking, CAD Was patient admitted / discharged? @ -Lab work demonstrates an alcohol level of 219. Troponin negative at 0.016. Chest x-ray reveals no acute process. Patient has had multiple visits recently for chest pain that have all turned out to be unremarkable. Echocardiogram and stress test from February of this year relatively unremarkable. Tentative plan at this point is to obtain a second troponin and discharge home if negative/flat. Case signed out to Ebonie Buck PA-C, at shift completion pending repeat troponin and disposition. Undiagnosed new problem with uncertain prognosis? @ -None Drug Therapy requiring intensive monitoring for toxicity (Heparin, Nitro, Insulin, Cardizem)? @ -None Were any procedures done? @ -None (Era Harding) Patient was signed out to me pending repeat troponin. Troponin again nonelevated. Patient states that she is feeling better at this time and she stable for discharge. [facility] - Lab Data Lab Results 09/25/24 09/25/24 09/25/24 Range/Units 12:10 12:10 14:22 WBC 10.3 (3.8-10.6) k/uL RBC 4.50 (3.80-5.40) m/uL Hgb 13.8 (11.4-16.0) gm/dL Hct 42.6 (34.0-46.0) % MCV 94.6 (80.0-100.0) fL MCH 30.7 (25.0-35.0) pg MCHC 32.4 (31.0-37.0) g/dL RDW 16.9 H (11.5-15.5) % Plt Count 198 (150-450) k/uL MPV 6.8 Neutrophils % 79 % Lymphocytes % 14 % Monocytes % 3 % Eosinophils % 0 % Basophils % 1 % Neutrophils # 8.1 H (1.3-7.7) k/uL Lymphocytes # 1.5 (1.0-4.8) k/uL Monocytes # 0.3 (0-1.0) k/uL Eosinophils # 0.0 (0-0.7) k/uL Basophils # 0.1 (0-0.2) k/uL Hypochromasia Slight Anisocytosis Slight PT 10.8 (10.0-12.5) sec INR 1.0 (<1.2) APTT 24.9 (22.0-30.0) sec Sodium (137-145) mmol/L Potassium (3.5-5.1) mmol/L Chloride (98-107) mmol/L Carbon Dioxide (22-30) mmol/L Anion Gap mmol/L BUN (7-17) mg/dL Creatinine (0.52-1.04) mg/dL Est GFR (CKD-EPI)AfAm (>60 ml/min/1.73 sqM) Est GFR (CKD-EPI)NonAf (>60 ml/min/1.73 sqM) Glucose (74-99) mg/dL Calcium (8.4-10.2) mg/dL Magnesium (1.6-2.3) mg/dL Total Bilirubin (0.2-1.3) mg/dL AST (14-36) U/L ALT (4-34) U/L Alkaline Phosphatase (38-126) U/L Troponin I 0.016 (0.000-0.034) ng/mL Total Protein (6.3-8.2) g/dL Albumin (3.5-5.0) g/dL Amylase (30-110) U/L Lipase (23-300) U/L Serum Alcohol mg/dL 09/25/24 09/25/24 Range/Units 14:22 17:38 WBC (3.8-10.6) k/uL RBC (3.80-5.40) m/uL Hgb (11.4-16.0) gm/dL Hct (34.0-46.0) % MCV (80.0-100.0) fL MCH (25.0-35.0) pg MCHC (31.0-37.0) g/dL RDW (11.5-15.5) % Plt Count (150-450) k/uL MPV Neutrophils % % Lymphocytes % % Monocytes % % Eosinophils % % Basophils % % Neutrophils # (1.3-7.7) k/uL Lymphocytes # (1.0-4.8) k/uL Monocytes # (0-1.0) k/uL Eosinophils # (0-0.7) k/uL Basophils # (0-0.2) k/uL Hypochromasia Anisocytosis PT (10.0-12.5) sec INR (<1.2) APTT (22.0-30.0) sec Sodium 141 (137-145) mmol/L Potassium 3.7 (3.5-5.1) mmol/L Chloride 109 H (98-107) mmol/L Carbon Dioxide 15 L (22-30) mmol/L Anion Gap 17 mmol/L BUN 7 (7-17) mg/dL Creatinine 0.50 L (0.52-1.04) mg/dL Est GFR (CKD-EPI)AfAm >90 (>60 ml/min/1.73 sqM) Est GFR (CKD-EPI)NonAf >90 (>60 ml/min/1.73 sqM) Glucose 99 (74-99) mg/dL Calcium 7.7 L (8.4-10.2) mg/dL Magnesium 1.7 (1.6-2.3) mg/dL Total Bilirubin 0.4 (0.2-1.3) mg/dL AST 54 H (14-36) U/L ALT 26 (4-34) U/L Alkaline Phosphatase 224 H (38-126) U/L Troponin I 0.014 (0.000-0.034) ng/mL Total Protein 5.9 L (6.3-8.2) g/dL Albumin 3.6 (3.5-5.0) g/dL Amylase 48 (30-110) U/L Lipase 79 (23-300) U/L Serum Alcohol 219 H* mg/dL Disposition <Era Harding - Last Filed: 09/25/24 16:38> Is patient prescribed a controlled substance at d/c from ED?: No Time of Disposition: 18:39 <Ebonie Buck - Last Filed: 09/25/24 20:39> Clinical Impression: Chronic back pain, Chest pain, Alcohol abuse, Alcohol intoxication Disposition: HOME SELF-CARE Condition: Stable Instructions (If sedation given, give patient instructions): Abuse of Alcohol (ED) Additional Instructions: Please return to the Emergency Department if symptoms worsen or any other concerns. Referrals: Miya Johnson MD [Primary Care Provider] - 1-2 days
[2024-09-25 12:28] LABS: Anisocytosis Slight; Basophils # (A) 0.1 k/uL (0-0.2); Basophils % (A) 1 %; Eosinophils % (A) 0 %; HCT 42.6 % (34.0-46.0); HGB 13.8 gm/dL (11.4-16.0); Hypochromasia Slight; Lymphocytes # (A) 1.5 k/uL (1.0-4.8); Lymphocytes % (A) 14 %; MCH 30.7 pg (25.0-35.0); MCHC 32.4 g/dL (31.0-37.0); MCV 94.6 fL (80.0-100.0); Mean Platelet Volume 6.8; Monocytes # (A) 0.3 k/uL (0-1.0); Monocytes % (A) 3 %; Neutrophils # (A) 8.1 k/uL (1.3-7.7); Neutrophils % (A) 79 %; Platelet Count 198 k/uL (150-450); RDW 16.9 % (11.5-15.5); WBC 10.3 k/uL (3.8-10.6)
[2024-09-25 12:42] LABS: Partial Thromboplastin Time 24.9 sec (22.0-30.0); Prothrombin Time 10.8 sec (10.0-12.5)
[2024-09-25] MEDS: SODIUM CHLORIDE 0.9% 1,000 ML IV STA (12:43)
--- NOTE | 2024-09-25 12:43 | XR ---
EXAMINATION TYPE: XR chest 2V DATE OF EXAM: 09/25/2024 12:33 PM COMPARISON: 09/09/2024 CLINICAL INDICATION: Female, 64 years old with history of Chest Pain, TECHNIQUE: XR chest 2V view(s) obtained. FINDINGS: The heart size is normal. The pulmonary vasculature is normal. The lungs are clear. IMPRESSION: 1. No acute pulmonary process. [facility], , 09/25/2024 12:41 PM
[2024-09-25] MEDS: KETOROLAC 15 MG/ML 1 ML VIAL IVP STA ×2 (12:44→14:56)
[2024-09-25] MEDS: ORPHENADRINE 30 MG/ML 2 ML VIAL IVP STA (14:57)
[2024-09-25 15:02] LABS: ALT 26 U/L (4-34); AST 54 U/L (14-36); African American GFR (CKD) >90 (>60 ml/min/1.73 sqM); Albumin 3.6 g/dL (3.5-5.0); Alkaline Phosphatase 224 U/L (38-126); Amylase 48 U/L (30-110); Anion Gap 17 mmol/L; Blood Urea Nitrogen 7 mg/dL (7-17); Calcium 7.7 mg/dL (8.4-10.2); Carbon Dioxide 15 mmol/L (22-30); Chloride 109 mmol/L (98-107); Glucose 99 mg/dL (74-99); Lipase 79 U/L (23-300); Magnesium 1.7 mg/dL (1.6-2.3); Non-African American GFR(CKD) >90 (>60 ml/min/1.73 sqM); Potassium 3.7 mmol/L (3.5-5.1); Sodium 141 mmol/L (137-145); Total Bilirubin 0.4 mg/dL (0.2-1.3); Total Protein 5.9 g/dL (6.3-8.2)
[2024-09-25 15:41] LABS: Alcohol 219 mg/dL
[2024-09-25 16:59] VITALS: RESP 18
[2024-09-25] MEDS: LORazepam 2 MG/ML INJ IV STA (17:14)
[2024-09-25] MEDS: ONDANSETRON 4 MG/2 ML VIAL IVP STA (18:21)
[2024-09-25 18:56] VITALS: BP 144/82; PULSE 56
== END 2024-09-25 18:56 | disposition home or self-care (01) ==
LOC: EC 11:33
DX: G89.29 Other chronic pain (principal); M54.9 Dorsalgia, unspecified; R07.9 Chest pain, unspecified; F10.129 Alcohol abuse with intoxication, unspecified; I25.10 Atherosclerotic heart disease of native coronary artery without angina pectoris; F17.200 Nicotine dependence, unspecified, uncomplicated; Z88.5 Allergy status to narcotic agent; Z88.7 Allergy status to serum and vaccine; Z88.8 Allergy status to other drugs, medicaments and biological substances; Z91.040 Latex allergy status; Z86.73 Personal history of transient ischemic attack (TIA), and cerebral infarction without residual deficits; Y90.7 Blood alcohol level of 200-239 mg/100 ml
CPT/HCPCS: 36415; 93005; 80053; 82150; 83690; 83735; 84484; 85025; 85610; 85730; 71046; 99285; 96374; 96375 ×3; 96376; 96361 ×3; 99406; G0480; J2060; J2360; J2405; J1885; 80320

== ENCOUNTER 2024-10-17 15:26 | Emergency (ER) | payer OTHER ==
[2024-10-17 15:31] VITALS: BP 139/84; PULSE 92; RESP 20; TEMP 98.4
--- NOTE | 2024-10-17 15:52 | ED ---
General Adult HPI - General Chief complaint: Back Pain/Injury Stated complaint: Back Pain Source: patient, EMS, RN notes reviewed, old records reviewed Mode of arrival: EMS Limitations: no limitations - History of Present Illness Initial comments: 64-year-old female presenting with chronic low back pain. Patient has chronic pain for which she takes Motrin. She states she does use alcohol to control her pain as well. She denies fall. Patient is intoxicated at the time of initial presentation. No fever. No chest pain. No abdominal pain. No headache or head injury. - Related Data Home Medications Medication Instructions Recorded Confirmed Budesonide/Formoterol Fumarate 2 puff INHALATION RT-HS 07/29/23 09/10/24 [Symbicort 160-4.5 Mcg Inhaler] Multivitamin [Multivitamins Adult 2 tab PO HS 12/04/23 09/10/24 Gummies] Brimonidine Tartrate [Alphagan P 1 drop BOTH EYES BID 02/02/24 09/10/24 0.2% Ophth Soln] Fluticasone Nasal [place] [Flonase 2 spr EA NOSTRIL HS 02/02/24 09/10/24 Nasal [place]] Artificial Tears-Hypromellose 1 drop BOTH EYES TID PRN 03/10/24 09/10/24 [Artificial Tear Drops] Potassium Chloride ER [K-Dur 20] 20 meq PO HS 03/15/24 09/10/24 Cholecalciferol (Vitamin D3) 50 mcg PO HS 05/03/24 09/10/24 [Vitamin D3 (50 Mcg = 2000 Iu)] Ferrous Sulfate [Iron (65 MG 325 mg PO HS 05/03/24 09/10/24 Elemental)] Ipratropium-Albuterol Nebulize 3 ml INHALATION RT-QID PRN 05/24/24 09/10/24 [Duoneb 0.5 mg-3 mg/3 ml Soln] Albuterol Sulfate [Ventolin HFA] 1 - 2 puff INHALATION RT-Q6H PRN 09/10/24 09/10/24 Previous Rx's Medication Instructions Recorded Aspirin EC [Ecotrin Low Dose] 81 mg PO HS #90 tab 05/25/24 Atorvastatin [Lipitor] 80 mg PO HS #90 tab 05/25/24 Isosorbide Mononitrate ER [Imdur] 30 mg PO HS #90 tab 05/25/24 Magnesium Oxide [Mag-Ox] 400 mg PO HS #90 tab 05/25/24 Metoprolol Succinate (ER) [Toprol 50 mg PO HS #90 tab 05/25/24 XL] Ticagrelor [Brilinta] 90 mg PO HS #90 tab 05/25/24 Cephalexin [Keflex] 500 mg PO Q12HR 7 Days #14 cap 09/11/24 Losartan [Cozaar] 25 mg PO DAILY #30 tab 09/11/24 Allergies Allergy/AdvReac Type Severity Reaction Status Date / Time [place] And Derivatives Allergy Rash/Hives Verified 10/17/24 15:31 [[place]] latex Allergy Rash/Hives Verified 10/17/24 15:31 amlodipine [From Norvasc] AdvReac Cough Verified 10/17/24 15:31 cinnamon AdvReac Nausea Verified 10/17/24 15:31 clonidine AdvReac "almost Verified 10/17/24 15:31 passed out" gabapentin AdvReac Dizziness Verified 10/17/24 15:31 Influenza Virus Vaccines AdvReac Nausea & Verified 10/17/24 15:31 Vomiting lisinopril AdvReac Cough Verified 10/17/24 15:31 morphine AdvReac Nausea & Verified 10/17/24 15:31 Vomiting sucralfate [From Carafate] AdvReac Abdominal Verified 10/17/24 15:31 Pain tomato AdvReac Diarrhea Verified 10/17/24 15:31 Review of Systems ROS Statement: Those systems with pertinent positive or pertinent negative responses have been documented in the HPI. ROS Other: All systems not noted in ROS Statement are negative. Past Medical History Past Medical History: Asthma, Coronary Artery Disease (CAD), COPD, CVA/TIA, Eye Disorder, Hypertension, Liver Disease, Myocardial Infarction (VT), Seizure Disorder, Vascular Disorder Additional Past Medical History / Comment(s): Pt recently admitted to [facility] for diarrhea, ETOH abuse. 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 Past Psychological History: Anxiety, Depression Smoking Status: Current every day smoker Past Alcohol Use History: Abuse, Daily, Heavy Past Drug Use History: Marijuana - Past Family History Mother Family Medical History: Cancer, Congestive Heart Failure (CHF), Coronary Artery Disease (CAD), Hyperlipidemia Additional Family Medical History / Comment(s): Mother at age 85 from lung cancer. Father Family Medical History: Cancer, COPD Additional Family Medical History / Comment(s): Father at age 63 from lung cancer. Brother(s) Additional Family Medical History / Comment(s): Patient has a total of 7 siblings. 5 are alive without any major medical problems she is aware of. 2 siblings have one from alcohol abuse and 1. Coronary artery disease. Daughter(s) Family Medical History: No Reported History Additional Family Medical History / Comment(s): Patient has one daughter with no major medical problems. General Exam Limitations: no limitations General appearance: alert, appears intoxicated Head exam: Present: atraumatic, normocephalic Eye exam: Present: normal appearance, PERRL ENT exam: Present: normal exam Neck exam: Present: normal inspection. Absent: tenderness, meningismus Respiratory exam: Present: normal lung sounds bilaterally. Absent: respiratory distress, wheezes Cardiovascular Exam: Present: regular rate, normal rhythm GI/Abdominal exam: Present: soft. Absent: distended, tenderness, guarding Extremities exam: Present: normal inspection, normal capillary refill Back exam: Present: normal inspection, full ROM, paraspinal tenderness (Lumbar) Neurological exam: Present: alert. Absent: motor sensory deficit Skin exam: Present: warm, dry, intact, normal color Course Vital Signs 10/17/24 15:28 Temperature 98.4 F Pulse Rate 92 Respiratory 20 Rate Blood Pressure 139/84 O2 Sat by Pulse 99 Oximetry Medical Decision Making - Medical Decision Making Was pt. sent in by a medical professional or institution (, PA, RACK CARRIER, urgent care, hospital, or halfway...) When possible be specific @ -No Did you speak to anyone other than the patient for history (EMS, parent, family, police, friend...)? What history was obtained from this source @ -No Did you review nursing and triage notes (agree or disagree)? Why? @ -I reviewed and agree with nursing and triage notes Were old charts reviewed (outside hosp., previous admission, EMS record, old EKG, old radiological studies, urgent care reports/EKG's, halfway records)? Report findings @ -No old charts were reviewed Differential Diagnosis: Alcohol intoxication. differential Back Pain: Strain, zoster, cauda equina syndrome, epidural abscess, vertebral osteomyelitis, discitis, fracture, subluxation, disc herniation, DJD, spinal stenosis, dissection, AAA, pancreatitis, peptic ulcer disease, pyelonephritis, kidney stone, this is not meant to be an all-inclusive list. EKG interpreted by me (3pts min.). @ -As above X-rays interpreted by me (1pt min.). @ -None done CT interpreted by me (1pt min.). @ -None done U/S interpreted by me (1pt. min.). @ -None done What testing was considered but not performed or refused? (CT, X-rays, U/S, labs)? Why? @ -None What meds were considered but not given or refused? Why? @ -None Did you discuss the management of the patient with other professionals (professionals i.e. , PA, RACK CARRIER, lab, RT, psych nurse, social science instructor, senior inspector, teacher, credit officer, rn field case manager)? Give summary @ -No Was smoking cessation discussed for >3mins.? @ -No Was critical care preformed (if so, how long)? @ -No Were there social determinants of health that impacted care today? How? (Homelessness, low income, unemployed, alcoholism, drug addiction, transportation, low edu. Level, literacy, decrease access to med. care, fpc, rehab)? @ -No Was there de-escalation of care discussed even if they declined (Discuss DNR or withdrawal of care, Hospice)? DNR status @ -No What co-morbidities impacted this encounter? (DM, HTN, Smoking, COPD, CAD, Cancer, CVA, ARF, Chemo, Hep., AIDS, mental health diagnosis, sleep apnea, morbid obesity)? @ -Chronic back pain, chronic alcohol abuse Was patient admitted / discharged? Hospital course, mention meds given and route, prescriptions, significant lab abnormalities, going to OR and other pertinent info. @ -[7-year-old female presenting with alcohol intoxication and complaint of back pain3 stating that she is out of her medication which is Motrin. Patient denies recent fall. She is intoxicated. There is no external signs of injury including no ecchymosis or vertebral tenderness on back examination. Patient observed in the emergency department for several hours. She does elope prior to formal discharge, left AGAINST MEDICAL ADVICE Undiagnosed new problem with uncertain prognosis? @ -No Drug Therapy requiring intensive monitoring for toxicity (Heparin, Nitro, Insulin, Cardizem)? @ -No Were any procedures done? @ -No Diagnosis/symptom? @Chronic pain, chronic alcohol abuse Acute, or Chronic, or Acute on Chronic? @ -[Chronic Uncomplicated (without systemic symptoms) or Complicated (systemic symptoms)? @ -Default Side effects of treatment? @ -No Exacerbation, Progression, or Severe Exacerbation? @ -No Poses a threat to life or bodily function? How? (Chest pain, [place], VT, pneumonia, PE, COPD, DKA, ARF, appy, cholecystitis, CVA, Diverticulitis, Homicidal, Suicidal, threat to staff... and all critical care pts) @ -Yes, alcohol abuse Disposition Clinical Impression: Alcohol intoxication Disposition: LEFT AGAINST MEDICAL ADVICE Condition: Fair Instructions (If sedation given, give patient instructions): Alcohol Use Disorder (ED) Is patient prescribed a controlled substance at d/c from ED?: No Referrals: Miya Johnson MD [Primary Care Provider] - 1-2 days Time of Disposition: 17:42
== END 2024-10-17 18:28 | disposition left against medical advice (07) ==
LOC: EC 15:26
DX: G89.29 Other chronic pain (principal); F10.10 Alcohol abuse, uncomplicated; M54.50 Low back pain, unspecified; F17.200 Nicotine dependence, unspecified, uncomplicated; Z88.5 Allergy status to narcotic agent; Z88.7 Allergy status to serum and vaccine; Z88.8 Allergy status to other drugs, medicaments and biological substances; Z91.040 Latex allergy status; Z86.73 Personal history of transient ischemic attack (TIA), and cerebral infarction without residual deficits
CPT/HCPCS: 99283

== ENCOUNTER 2024-10-18 19:40 | Emergency (ER) | payer OTHER ==
[2024-10-18 19:44] VITALS: RESP 16; TEMP 98.2
--- NOTE | 2024-10-18 19:49 | ED ---
Alcohol HPI - General Chief Complaint: Chest Pain Stated Complaint: Chest pain, ETOH Time Seen by Provider: 10/18/24 19:44 Source: patient, EMS, RN notes reviewed, old records reviewed Mode of arrival: EMS - History of Present Illness Initial Comments: This is a 64-year-old female well-known to this facility for multiple ER visits for multiple different complaints. Patient coming in for acute alcohol intoxication today. 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(s) Previous Visits for Alcohol Intoxication?: Yes Recent Trauma: Yes Associated Symptoms: denies other symptoms Treatments Prior to Arrival: none Chronic Alcohol Use: Yes - Related Data Home Medications Medication Instructions Recorded Confirmed Budesonide/Formoterol Fumarate 2 puff INHALATION RT-HS 07/29/23 09/10/24 [Symbicort 160-4.5 Mcg Inhaler] Multivitamin [Multivitamins Adult 2 tab PO HS 12/04/23 09/10/24 Gummies] Brimonidine Tartrate [Alphagan P 1 drop BOTH EYES BID 02/02/24 09/10/24 0.2% Ophth Soln] Fluticasone Nasal [place] [Flonase 2 spr EA NOSTRIL HS 02/02/24 09/10/24 Nasal [place]] Artificial Tears-Hypromellose 1 drop BOTH EYES TID PRN 03/10/24 09/10/24 [Artificial Tear Drops] Potassium Chloride ER [K-Dur 20] 20 meq PO HS 03/15/24 09/10/24 Cholecalciferol (Vitamin D3) 50 mcg PO HS 05/03/24 09/10/24 [Vitamin D3 (50 Mcg = 2000 Iu)] Ferrous Sulfate [Iron (65 MG 325 mg PO HS 05/03/24 09/10/24 Elemental)] Ipratropium-Albuterol Nebulize 3 ml INHALATION RT-QID PRN 05/24/24 09/10/24 [Duoneb 0.5 mg-3 mg/3 ml Soln] Albuterol Sulfate [Ventolin HFA] 1 - 2 puff INHALATION RT-Q6H PRN 09/10/24 09/10/24 Previous Rx's Medication Instructions Recorded Aspirin EC [Ecotrin Low Dose] 81 mg PO HS #90 tab 05/25/24 Atorvastatin [Lipitor] 80 mg PO HS #90 tab 05/25/24 Isosorbide Mononitrate ER [Imdur] 30 mg PO HS #90 tab 05/25/24 Magnesium Oxide [Mag-Ox] 400 mg PO HS #90 tab 05/25/24 Metoprolol Succinate (ER) [Toprol 50 mg PO HS #90 tab 05/25/24 XL] Ticagrelor [Brilinta] 90 mg PO HS #90 tab 05/25/24 Cephalexin [Keflex] 500 mg PO Q12HR 7 Days #14 cap 09/11/24 Losartan [Cozaar] 25 mg PO DAILY #30 tab 09/11/24 Allergies Allergy/AdvReac Type Severity Reaction Status Date / Time [place] And Derivatives Allergy Rash/Hives Verified 10/17/24 15:31 [[place]] latex Allergy Rash/Hives Verified 10/17/24 15:31 amlodipine [From Norvasc] AdvReac Cough Verified 10/17/24 15:31 cinnamon AdvReac Nausea Verified 10/17/24 15:31 clonidine AdvReac "almost Verified 10/17/24 15:31 passed out" gabapentin AdvReac Dizziness Verified 10/17/24 15:31 Influenza Virus Vaccines AdvReac Nausea & Verified 10/17/24 15:31 Vomiting lisinopril AdvReac Cough Verified 10/17/24 15:31 morphine AdvReac Nausea & Verified 10/17/24 15:31 Vomiting sucralfate [From Carafate] AdvReac Abdominal Verified 10/17/24 15:31 Pain tomato AdvReac Diarrhea Verified 10/17/24 15:31 Review of Systems ROS Statement: Those systems with pertinent positive or pertinent negative responses have been documented in the HPI. ROS Other: All systems not noted in ROS Statement are negative. Past Medical History Past Medical History: Asthma, Coronary Artery Disease (CAD), COPD, CVA/TIA, Eye Disorder, Hypertension, Liver Disease, Myocardial Infarction ([place]), Seizure Diso rder, Vascular Disorder Additional Past Medical History / Comment(s): Pt recently admitted to [facility] for diarrhea, ETOH abuse. 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 Past Psychological History: Anxiety, Depression Smoking Status: Current every day smoker Past Alcohol Use History: Abuse, Daily, Heavy Past Drug Use History: Marijuana - Past Family History Mother Family Medical History: Cancer, Congestive Heart Failure (CHF), Coronary Artery Disease (CAD), Hyperlipidemia Additional Family Medical History / Comment(s): Mother at age 85 from lung cancer. Father Family Medical History: Cancer, COPD Additional Family Medical History / Comment(s): Father at age 63 from lung cancer. Brother(s) Additional Family Medical History / Comment(s): Patient has a total of 7 siblings. 5 are alive without any major medical problems she is aware of. 2 siblings have one from alcohol abuse and 1. Coronary artery disease. Daughter(s) Family Medical History: No Reported History Additional Family Medical History / Comment(s): Patient has one daughter with no major medical problems. General Exam General appearance: alert, in no apparent distress Head exam: Present: atraumatic, normocephalic, normal inspection Eye exam: Present: normal appearance, PERRL, EOMI. Absent: scleral icterus, conjunctival injection, periorbital swelling ENT exam: Present: normal exam, mucous membranes moist Neck exam: Present: normal inspection. Absent: tenderness, meningismus, lymphadenopathy Respiratory exam: Present: normal lung sounds bilaterally. Absent: respiratory distress, wheezes, rales, rhonchi, stridor Cardiovascular Exam: Present: regular rate, normal rhythm, normal heart sounds. Absent: systolic murmur, diastolic murmur, rubs, gallop, clicks GI/Abdominal exam: Present: soft, normal bowel sounds. Absent: distended, tenderness, guarding, rebound, rigid Extremities exam: Present: normal inspection, full ROM, normal capillary refill. Absent: tenderness, pedal edema, joint swelling, calf tenderness Back exam: Present: normal inspection Neurological exam: Present: alert, oriented X3, CN II-XII intact Psychiatric exam: Present: normal affect, normal mood Skin exam: Present: warm, dry, intact, normal color. Absent: rash Course Vital Signs 10/18/24 19:41 Temperature 98.2 F Pulse Rate 71 Respiratory 16 Rate Blood Pressure 133/102 O2 Sat by Pulse 96 Oximetry - Reevaluation(s) Reevaluation #1: 10/18/24 20:25 Medical records reviewed Reevaluation #2: 10/18/24 20:26 Patient symptoms unchanged Reevaluation #3: 10/18/24 20:26 Patient having no current chest pain here in the ER Reevaluation #4: Was pt. sent in by a medical professional or institution (, PA, COMPOSER TEACHING ARTIST, urgent care, hospital, or snf...) When possible be specific @ -no Did you speak to anyone other than the patient for history (EMS, parent, family, police, friend...)? What history was obtained from this source @ -no Did you review nursing and triage notes (agree or disagree)? Why? @ -agree Are old charts reviewed (outside hosp., previous admission, EMS record, old EKG, old radiological studies, urgent care reports/EKG's, snf records)? R eport findings @ -yes Differential Diagnosis (chest pain, altered mental status, abdominal pain women, abdominal pain men, vaginal bleeding, weakness, fever, dyspnea, syncope, headache, dizziness, GI bleed, back pain, seizure, CVA, palpatations, mental health, musculoskeletal)? @ -prior EKG interpreted by me (3pts min.). @ -yes X-rays interpreted by me (1pt min.). @ -yes negative for acute disease CT interpreted by me (1pt min.). @ -no U/S interpreted by me (1pt. min.). @ -no What testing was considered but not performed or refused? (CT, X-rays, U/S, labs)? Why? @ -none What meds were considered but not given or refused? Why? @ -none Did you discuss the management of the patient with other professionals (professionals i.e. , PA, COMPOSER TEACHING ARTIST, lab, RT, psych nurse, rn social services, contact agent, teacher, senior major gifts officer, case supervisor)? Give summary @ -no Was smoking cessation discussed for >3mins.? @ -no Was critical care preformed (if so, how long)? @ -no Were there social determinants of health that impacted care today? How? (Homelessness, low income, unemployed, alcoholism, drug addiction, transportation, low edu. Level, literacy, decrease access to med. care, custodial, rehab)? @ -none Was there de-escalation of care discussed even if they declined (Discuss DNR or withdrawal of care, Hospice)? DNR status @ -no What co-morbidities impacted this encounter? (DM, HTN, Smoking, COPD, CAD, Cancer, CVA, ARF, Chemo, Hep., AIDS, mental health diagnosis, sleep apnea, morbid obesity)? @ -none Was patient admitted / discharged? Hospital course, mention meds given and route, prescriptions, significant lab abnormalities, going to OR and other pertinent info. @ - Undiagnosed new problem with uncertain prognosis? @ -no Drug Therapy requiring intensive monitoring for toxicity (Heparin, Nitro, Insulin, Cardizem)? @ -no Were any procedures done? @ -no Diagnosis/symptom? @ - Acute, or Chronic, or Acute on Chronic? @ -Acute Uncomplicated (without systemic symptoms) or Complicated (systemic symptoms)? @ -Complicated Side effects of treatment? @ -no Exacerbation, Progression, or Severe Exacerbation? @ -exacerbation Poses a threat to life or bodily function? How? (Chest pain, [place], [place], pneumonia, PE, COPD, DKA, ARF, appy, cholecystitis, CVA, Diverticulitis, Homicidal, Suicidal, threat to staff... and all critical care pts) @ -yes Reevaluation #5: Differential Altered Mental Status: Hypoglycemia, DKA, hypercapnia, ETOH, overdose, CO poisoning, trauma, myxedema coma, HTN encephalopathy, infection, encephalitis, psychosis, intercranial hemorrhage, hepatic encephalopathy, meningitis, CVA, this is not meant to be an all-inclusive list Differential Chest Pain: Stable Angina, Unstable Angina, STEMI, NSTEMI Aortic Dissection, Pneumothorax, Musculoskeletal, Esophageal Spasm GERD, Cholecystitis, Pancreatitis, Zoster, this is not meant to be an all-inclusive list. Medical Decision Making - Medical Decision Making 64 female to the ER for chest pain and anxiety with significant alcohol intoxication patient can be discharged home - EKG Data -: EKG Interpreted by Me (EKG is sinus 71 IL 139 QRS 97 QTc 431) - Radiology Data Radiology results: report reviewed (Chest x-ray is negative for acute disease), image reviewed Disposition Clinical Impression: Chest pain, Alcohol intoxication Disposition: HOME SELF-CARE Condition: Fair Instructions (If sedation given, give patient instructions): Chest Pain (ED), Alcohol Intoxication (ED) Is patient prescribed a controlled substance at d/c from ED?: No Referrals: Miya Johnson MD [Primary Care Provider] - 1-2 days Time of Disposition: 20:30
[2024-10-18] MEDS: ONDANSETRON 4 MG TAB PO STA (19:58)
[2024-10-18] MEDS: LORazepam 1 MG TAB PO STA (19:59)
--- NOTE | 2024-10-18 20:10 | XR ---
EXAMINATION TYPE: XR chest 2V DATE OF EXAM: 10/18/2024 7:55 PM COMPARISON: Previous chest radiograph 09/25/2004. CLINICAL INDICATION: Female, 64 years old with history of cp; H TECHNIQUE: XR chest 2V Frontal and lateral views of the chest. FINDINGS: Lungs/Pleura: There is no evidence of pleural effusion, focal consolidation, or pneumothorax. Pulmonary vascularity: Unremarkable. Heart/mediastinum: Cardiomediastinal silhouette is unremarkable. Musculoskeletal: No acute osseous pathology. Other findings: None IMPRESSION: No acute cardiopulmonary disease/process. [facility], , 10/18/2024 8:07 PM
[2024-10-18 20:43] VITALS: BP 129/86; PULSE 75
== END 2024-10-18 20:40 | disposition home or self-care (01) ==
LOC: EC 19:40
DX: R07.89 Other chest pain (principal); F10.129 Alcohol abuse with intoxication, unspecified; F17.200 Nicotine dependence, unspecified, uncomplicated; Z91.018 Allergy to other foods; Z88.7 Allergy status to serum and vaccine; Z88.5 Allergy status to narcotic agent; Z91.040 Latex allergy status; Z88.8 Allergy status to other drugs, medicaments and biological substances
CPT/HCPCS: 71046; 99285

== ENCOUNTER 2024-10-20 04:57 | Emergency (ER) | payer OTHER ==
[2024-10-20 05:50] VITALS: RESP 18; TEMP 98.4
--- NOTE | 2024-10-20 05:55 | ED ---
Fall HPI - General Stated Complaint: Chest pain, shoulder pain, ETOH Time Seen by Provider: 10/20/24 05:18 Source: EMS Mode of arrival: EMS - History of Present Illness Initial Comments: 64-year-old woman who presents for evaluation after she had fallen at home. She states that she had been drinking. She tripped over her walker and fell landing on her left shoulder. She indicates pain at the head of the humerus. She pain is worse with movement. No relieving factors. She denies other injury. No head or neck pain. No loss of consciousness. No weakness or numbness distal to injury. 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 Witnessed: no Place Fall Occurred: home Loss of Consciousness: none Prolonged Down Time?: no Symptoms Prior to Fall: none Location - Extremities: Left: Shoulder Severity: moderate Quality: sharp Context: tripped/slipped, alcohol use Associated Symptoms: denies - Related Data Home Medications Medication Instructions Recorded Confirmed Budesonide/Formoterol Fumarate 2 puff INHALATION RT-HS 07/29/23 09/10/24 [Symbicort 160-4.5 Mcg Inhaler] Multivitamin [Multivitamins Adult 2 tab PO HS 12/04/23 09/10/24 Gummies] Brimonidine Tartrate [Alphagan P 1 drop BOTH EYES BID 02/02/24 09/10/24 0.2% Ophth Soln] Fluticasone Nasal [place] [Flonase 2 spr EA NOSTRIL HS 02/02/24 09/10/24 Nasal [place]] Artificial Tears-Hypromellose 1 drop BOTH EYES TID PRN 03/10/24 09/10/24 [Artificial Tear Drops] Potassium Chloride ER [K-Dur 20] 20 meq PO HS 03/15/24 09/10/24 Cholecalciferol (Vitamin D3) 50 mcg PO HS 05/03/24 09/10/24 [Vitamin D3 (50 Mcg = 2000 Iu)] Ferrous Sulfate [Iron (65 MG 325 mg PO HS 05/03/24 09/10/24 Elemental)] Ipratropium-Albuterol Nebulize 3 ml INHALATION RT-QID PRN 05/24/24 09/10/24 [Duoneb 0.5 mg-3 mg/3 ml Soln] Albuterol Sulfate [Ventolin HFA] 1 - 2 puff INHALATION RT-Q6H PRN 09/10/24 09/10/24 Previous Rx's Medication Instructions Recorded Aspirin EC [Ecotrin Low Dose] 81 mg PO HS #90 tab 05/25/24 Atorvastatin [Lipitor] 80 mg PO HS #90 tab 05/25/24 Isosorbide Mononitrate ER [Imdur] 30 mg PO HS #90 tab 05/25/24 Magnesium Oxide [Mag-Ox] 400 mg PO HS #90 tab 05/25/24 Metoprolol Succinate (ER) [Toprol 50 mg PO HS #90 tab 05/25/24 XL] Ticagrelor [Brilinta] 90 mg PO HS #90 tab 05/25/24 Cephalexin [Keflex] 500 mg PO Q12HR 7 Days #14 cap 09/11/24 Losartan [Cozaar] 25 mg PO DAILY #30 tab 09/11/24 Allergies Allergy/AdvReac Type Severity Reaction Status Date / Time [place] And Derivatives Allergy Rash/Hives Verified 10/17/24 15:31 [[place]] latex Allergy Rash/Hives Verified 10/17/24 15:31 amlodipine [From Norvasc] AdvReac Cough Verified 10/17/24 15:31 cinnamon AdvReac Nausea Verified 10/17/24 15:31 clonidine AdvReac "almost Verified 10/17/24 15:31 passed out" gabapentin AdvReac Dizziness Verified 10/17/24 15:31 Influenza Virus Vaccines AdvReac Nausea & Verified 10/17/24 15:31 Vomiting lisinopril AdvReac Cough Verified 10/17/24 15:31 morphine AdvReac Nausea & Verified 10/17/24 15:31 Vomiting sucralfate [From Carafate] AdvReac Abdominal Verified 10/17/24 15:31 Pain tomato AdvReac Diarrhea Verified 10/17/24 15:31 Review of Systems ROS Statement: Those systems with pertinent positive or pertinent negative responses have been documented in the HPI. ROS Other: All systems not noted in ROS Statement are negative. Constitutional: Denies: fever, weakness Eyes: Denies: vision change Respiratory: Denies: cough, dyspnea Cardiovascular: Denies: chest pain, palpitations, syncope Gastrointestinal: Denies: abdominal pain, nausea, vomiting, diarrhea Genitourinary: Denies: dysuria, hematuria Musculoskeletal: Reports: as per HPI, arthralgia. Denies: back pain Skin: Denies: lesions Neurological: Denies: headache, weakness, numbness, paresthesias Past Medical History Past Medical History: Asthma, Coronary Artery Disease (CAD), COPD, CVA/TIA, Eye Disorder, Hypertension, Liver Disease, Myocardial Infarction ([place]), Seizure Disorder, Vascular Disorder Additional Past Medical History / Comment(s): Pt recently admitted to [facility] for diarrhea, ETOH abuse. 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 Past Psychological History: Anxiety, Depression Smoking Status: Current every day smoker Past Alcohol Use History: Abuse, Daily, Heavy Past Drug Use History: Marijuana - Past Family History Mother Family Medical History: Cancer, Congestive Heart Failure (CHF), Coronary Artery Disease (CAD), Hyperlipidemia Additional Family Medical History / Comment(s): Mother at age 85 from lung cancer. Father Family Medical History: Cancer, COPD Additional Family Medical History / Comment(s): Father at age 63 from lung cancer. Brother(s) Additional Family Medical History / Comment(s): Patient has a total of 7 siblings. 5 are alive without any major medical problems she is aware of. 2 siblings have one from alcohol abuse and 1. Coronary artery disease. Daughter(s) Family Medical History: No Reported History Additional Family Medical History / Comment(s): Patient has one daughter with no major medical problems. General Exam General appearance: alert, in no apparent distress Head exam: Present: atraumatic, normocephalic Eye exam: Present: normal appearance, nystagmus. Absent: scleral icterus, conjunctival injection ENT exam: Present: mucous membranes dry Neck exam: Present: normal inspection, full ROM. Absent: tenderness, meningismus Respiratory exam: Present: normal lung sounds bilaterally. Absent: respiratory distress, wheezes, rales, rhonchi, stridor, accessory muscle use Cardiovascular Exam: Present: regular rate, normal rhythm, normal heart sounds. Absent: systolic murmur, diastolic murmur, rubs, gallop GI/Abdominal exam: Present: soft. Absent: distended, tenderness, guarding, merlin ound, rigid, mass Extremities exam: Present: normal inspection, normal capillary refill. Absent: pedal edema, calf tenderness Back exam: Present: normal inspection. Absent: CVA tenderness (R), CVA tenderness (L), vertebral tenderness Neurological exam: Present: alert. Absent: motor sensory deficit Skin exam: Present: warm, dry, intact, normal color. Absent: rash Course Vital Signs 10/20/24 10/20/24 05:41 07:04 Temperature 98.4 F Pulse Rate 78 80 Respiratory 18 18 Rate Blood Pressure 132/79 101/68 O2 Sat by Pulse 95 95 Oximetry Medical Decision Making - Medical Decision Making The patient had x-ray of the left shoulder that I interpreted as negative for acute fracture, dislocation. Was pt. sent in by a medical professional or institution (YESSY Lloyd, HOUSEKEEPING SUPERVISOR HOTEL, urgent care, hospital, or shelter...) When possible be specific @ -[No] Did you speak to anyone other than the patient for history (EMS, parent, family, police, friend...)? What history was obtained from this source @ -[No] Did you review nursing and triage notes (agree or disagree)? Why? @ -[I reviewed and agree with nursing and triage notes] Were old charts reviewed (outside hosp., previous admission, EMS record, old EKG, old radiological studies, urgent care reports/EKG's, shelter records)? Report findings @ -[No old charts were reviewed] Differential Diagnosis (chest pain, altered mental status, abdominal pain women, abdominal pain men, vaginal bleeding, weakness, fever, dyspnea, syncope, headache, dizziness, GI bleed, back pain, seizure, CVA, palpatations, mental health, musculoskeletal)? @ -[Differential Musculoskeletal Muscular strain, contusion, ligament sprain, fracture, arthritis, septic arthritis, bursitis, cellulitis, muscle spasm, nerve compression, DVT, arterial occlusion, herpes zoster, electrolyte abnormality, tumor.... This is not meant to be in all inclusive list EKG interpreted by me (3pts min.). @ -[As above] X-rays interpreted by me (1pt min.). @ -[I interpreted as above CT interpreted by me (1pt min.). @ -[None done] U/S interpreted by me (1pt. min.). @ -[None done] What testing was considered but not performed or refused? (CT, X-rays, U/S, l abs)? Why? @ -[None] What meds were considered but not given or refused? Why? @ -[None] Did you discuss the management of the patient with other professionals (professionals i.e. , PA, HOUSEKEEPING SUPERVISOR HOTEL, lab, RT, psych nurse, social contact worker, cafe cook, teacher, chief sustainability officer, caseworker)? Give summary @ -[No] Was smoking cessation discussed for >3mins.? @ -[No] Was critical care preformed (if so, how long)? @ -[No] Were there social determinants of health that impacted care today? How? (Homelessness, low income, unemployed, alcoholism, drug addiction, transportation, low edu. Level, literacy, decrease access to med. care, intermediate, rehab)? @ -[Alcoholism Was there de-escalation of care discussed even if they declined (Discuss DNR or withdrawal of care, Hospice)? DNR status @ -[No] What co-morbidities impacted this encounter? (DM, HTN, Smoking, COPD, CAD, Cancer, CVA, ARF, Chemo, Hep., AIDS, mental health diagnosis, sleep apnea, morbid obesity)? @ -[Alcohol dependence Was patient admitted / discharged? Hospital course, mention meds given and route, prescriptions, significant lab abnormalities, going to OR and other pertinent info. @ -[Patient is 64-year-old woman who had ground-level fall with shoulder injury. No evident fracture or dislocation. Discussed appropriate further care and return parameters. Undiagnosed new problem with uncertain prognosis? @ -[No] Drug Therapy requiring intensive monitoring for toxicity (Heparin, Nitro, Insulin, Cardizem)? @ -[No] Were any procedures done? @ -[No] Diagnosis/symptom? @ -[Acute fall injury Acute shoulder contusion Acute alcohol intoxication Acute, or Chronic, or Acute on Chronic? @ -[Acute Uncomplicated (without systemic symptoms) or Complicated (systemic symptoms)? @ -[Uncomplicated Side effects of treatment? @ -[No] Exacerbation, Progression, or Severe Exacerbation? @ -[No] Poses a threat to life or bodily function? How? (Chest pain, [place], [place], pneumonia, PE, COPD, DKA, ARF, appy, cholecystitis, CVA, Diverticulitis, Homicidal, Suicidal, threat to staff... and all critical care pts) @ -[No] Disposition Clinical Impression: Fall, Strain of shoulder, Alcohol intoxication Disposition: HOME SELF-CARE Condition: Good Instructions (If sedation given, give patient instructions): Alcohol Intoxication (DC), Shoulder Sprain (ED) Is patient prescribed a controlled substance at d/c from ED?: No Referrals: Miya Johnson MD [Primary Care Provider] - 1-2 days
--- NOTE | 2024-10-20 06:14 | XR ---
EXAMINATION TYPE: XR shoulder complete LT DATE OF EXAM: 10/20/2024 CLINICAL HISTORY: Fall injury with pain TECHNIQUE: Three views of the left shoulder are obtained. COMPARISON: Prior left shoulder x-ray September 05, 2024 FINDINGS: There is no acute fracture/dislocation evident in the left shoulder. Slight superior posit ioning of the inferior margin distal clavicle relative to the acromion is unchanged from prior. Joint spaces unchanged from prior. Glenohumeral joint is preserved. The visualized ribs are intact and unr emarkable. IMPRESSION: There is no acute fracture or dislocation in the left shoulder. No significant change fr om prior. [facility], , 10/20/2024 6:11 AM
[2024-10-20 07:05] VITALS: BP 101/68; PULSE 80
== END 2024-10-20 07:11 | disposition home or self-care (01) ==
LOC: EC 04:57
DX: S46.912A Strain of unspecified muscle, fascia and tendon at shoulder and upper arm level, left arm, initial encounter (principal); F10.129 Alcohol abuse with intoxication, unspecified; F17.200 Nicotine dependence, unspecified, uncomplicated; Z88.5 Allergy status to narcotic agent; Z88.7 Allergy status to serum and vaccine; Z88.8 Allergy status to other drugs, medicaments and biological substances; Z91.040 Latex allergy status; Z88.1 Allergy status to other antibiotic agents; Z86.73 Personal history of transient ischemic attack (TIA), and cerebral infarction without residual deficits; W01.0XXA Fall on same level from slipping, tripping and stumbling without subsequent striking against object, initial encounter; Y92.009 Unspecified place in unspecified non-institutional (private) residence as the place of occurrence of the external cause
CPT/HCPCS: 99285

== ENCOUNTER 2024-10-29 16:41 | Emergency (ER) | payer OTHER ==
--- NOTE | 2024-10-29 17:11 | ED ---
Weakness HPI - General Chief complaint: Weakness Stated complaint: Weakness Time Seen by Provider: 10/29/24 16:45 Source: EMS Mode of arrival: EMS Limitations: no limitations - History of Present Illness Initial comments: This patient is a 64-year-old woman who presents to have evaluation of generalized weakness. She states that over the past 2 to 3 days she has been feeling weaker than usual. She states that when she went to the bathroom today she was not able to really get up and she had to crawl back to her bedroom then called EMS. The patient denies falling or any acute injury. She does have some chronic back pain but no change today. She has not noted fever or chills. No nausea or vomiting. No change in bowel movements or urination. Patient states that it has been approximately 6 days since she had any alcohol to drink MD Complaint: generalized weakness Onset/Timin -: days(s) Location: generalized Severity scale (1-10): 0 Consistency: constant Improves with: none Worsens with: none Associated Symptoms: denies other symptoms - Related Data Home Medications Medication Instructions Recorded Confirmed Budesonide/Formoterol Fumarate 2 puff INHALATION RT-HS 07/29/23 09/10/24 [Symbicort 160-4.5 Mcg Inhaler] Multivitamin [Multivitamins Adult 2 tab PO HS 12/04/23 09/10/24 Gummies] Brimonidine Tartrate [Alphagan P 1 drop BOTH EYES BID 02/02/24 09/10/24 0.2% Ophth Soln] Fluticasone Nasal Crane [Flonase 2 spr EA NOSTRIL HS 02/02/24 09/10/24 Nasal Crane] Artificial Tears-Hypromellose 1 drop BOTH EYES TID PRN 03/10/24 09/10/24 [Artificial Tear Drops] Potassium Chloride ER [K-Dur 20] 20 meq PO HS 03/15/24 09/10/24 Cholecalciferol (Vitamin D3) 50 mcg PO HS 05/03/24 09/10/24 [Vitamin D3 (50 Mcg = 2000 Iu)] Ferrous Sulfate [Iron (65 MG 325 mg PO HS 05/03/24 09/10/24 Elemental)] Ipratropium-Albuterol Nebulize 3 ml INHALATION RT-QID PRN 05/24/24 09/10/24 [Duoneb 0.5 mg-3 mg/3 ml Soln] Albuterol Sulfate [Ventolin HFA] 1 - 2 puff INHALATION RT-Q6H PRN 09/10/24 09/10/24 Previous Rx's Medication Instructions Recorded Aspirin EC [Ecotrin Low Dose] 81 mg PO HS #90 tab 05/25/24 Atorvastatin [Lipitor] 80 mg PO HS #90 tab 05/25/24 Isosorbide Mononitrate ER [Imdur] 30 mg PO HS #90 tab 05/25/24 Magnesium Oxide [Mag-Ox] 400 mg PO HS #90 tab 05/25/24 Metoprolol Succinate (ER) [Toprol 50 mg PO HS #90 tab 05/25/24 XL] Ticagrelor [Brilinta] 90 mg PO HS #90 tab 05/25/24 Cephalexin [Keflex] 500 mg PO Q12HR 7 Days #14 cap 09/11/24 Losartan [Cozaar] 25 mg PO DAILY #30 tab 09/11/24 Potassium Chloride ER [K-Dur 20] 20 meq PO BID #10 tab 10/29/24 chlordiazePOXIDE HCl [Librium] 25 mg PO TID 3 Days #9 capsule 11/09/24 LORazepam [Ativan] 2 mg PO TID 3 Days #9 tab 11/10/24 Allergies Allergy/AdvReac Type Severity Reaction Status Date / Time Randall And Derivatives Allergy Rash/Hives Verified 11/10/24 14:54 [Randall] latex Allergy Rash/Hives Verified 11/10/24 14:54 adhesive tape AdvReac Rash/Hives Verified 11/10/24 14:54 amlodipine [From Norvasc] AdvReac Cough Verified 11/10/24 14:54 cinnamon AdvReac Nausea Verified 11/10/24 14:54 clonidine AdvReac "almost Verified 11/10/24 14:54 passed out" gabapentin AdvReac Dizziness Verified 11/10/24 14:54 Influenza Virus Vaccines AdvReac Nausea & Verified 11/10/24 14:54 Vomiting lisinopril AdvReac Cough Verified 11/10/24 14:54 morphine AdvReac Nausea & Verified 11/10/24 14:54 Vomiting sucralfate [From Carafate] AdvReac Abdominal Verified 11/10/24 14:54 Pain tomato AdvReac Diarrhea Verified 11/10/24 14:54 Review of Systems ROS Statement: Those systems with pertinent positive or pertinent negative responses have been documented in the HPI. ROS Other: All systems not noted in ROS Statement are negative. Constitutional: Reports: weakness. Denies: fever, chills Eyes: Denies: vision change Respiratory: Denies: cough, dyspnea Cardiovascular: Denies: chest pain, palpitations, edema, syncope Gastrointestinal: Denies: abdominal pain, nausea, vomiting, diarrhea, melena, hematochezia Genitourinary: Denies: dysuria, frequency, hematuria Musculoskeletal: Denies: back pain Skin: Denies: rash Neurological: Denies: headache, weakness, numbness, confusion Past Medical History Past Medical History: Asthma, Coronary Artery Disease (CAD), COPD, CVA/TIA, Eye Disorder, Hypertension, Liver Disease, Myocardial Infarction (IN), Seizure Disorder, Vascular Disorder Additional Past Medical History / Comment(s): Pt recently admitted to [facility] for diarrhea, ETOH abuse. 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 Past Psychological History: Anxiety, Depression Smoking Status: Current every day smoker Past Alcohol Use History: Abuse, Daily, Heavy Past Drug Use History: Marijuana - Past Family History Mother Family Medical History: Cancer, Congestive Heart Failure (CHF), Coronary Artery Disease (CAD), Hyperlipidemia Additional Family Medical History / Comment(s): Mother at age 85 from lung cancer. Father Family Medical History: Cancer, COPD Additional Family Medical History / Comment(s): Father at age 63 from lung cancer. Brother(s) Additional Family Medical History / Comment(s): Patient has a total of 7 sibl ings. 5 are alive without any major medical problems she is aware of. 2 siblings have one from alcohol abuse and 1. Coronary artery disease. Daughter(s) Family Medical History: No Reported History Additional Family Medical History / Comment(s): Patient has one daughter with no major medical problems. General Exam General appearance: alert, in no apparent distress Head exam: Present: atraumatic, normocephalic Eye exam: Present: normal appearance. Absent: scleral icterus, conjunctival injection ENT exam: Present: normal oropharynx Neck exam: Present: normal inspection, full ROM Respiratory exam: Present: normal lung sounds bilaterally. Absent: respiratory distress, wheezes, rales, rhonchi, stridor, accessory muscle use Cardiovascular Exam: Present: regular rate, normal rhythm, normal heart sounds. Absent: systolic murmur, diastolic murmur, rubs, gallop GI/Abdominal exam: Present: soft. Absent: distended, tenderness, guarding, rebound, rigid, mass Extremities exam: Present: normal inspection, normal capillary refill. Absent: pedal edema, calf tenderness Back exam: Present: normal inspection. Absent: CVA tenderness (R), CVA tenderness (L) Neurological exam: Present: alert Skin exam: Present: warm, dry, intact, normal color. Absent: rash Course Vital Signs 10/29/24 10/29/24 16:45 20:53 Temperature 97.8 F 98.1 F Pulse Rate 80 84 Respiratory 18 16 Rate Blood Pressure 139/85 105/73 O2 Sat by Pulse 99 97 Oximetry Medical Decision Making - Medical Decision Making Was pt. sent in by a medical professional or institution (, PA, ASPHALT TAMPING MACHINE OPERATOR, urgent care, hospital, or long-term...) When possible be specific @ -[No] Did you speak to anyone other than the patient for history (EMS, parent, family, police, friend...)? What history was obtained from this source @ -[No] Did you review nursing and triage notes (agree or disagree)? Why? @ -[I reviewed and agree with nursing and triage notes] Were old charts reviewed (outside hosp., previous admission, EMS record, old EKG, old radiological studies, urgent care reports/EKG's, long-term records)? Report findings @ -[No old charts were reviewed] Differential Diagnosis (chest pain, altered mental status, abdominal pain women, abdominal pain men, vaginal bleeding, weakness, fever, dyspnea, syncope, headache, dizziness, GI bleed, back pain, seizure, CVA, palpatations, mental health, musculoskeletal)? @ -[Differential Weakness: Hypoglycemia, shock, sepsis, hyponatremia, anemia, infection, IN, ETOH, adverse medicine reaction, overdose, stroke, this is not meant to be an all-inclusive list. EKG interpreted by me (3pts min.). @ -[As above] X-rays interpreted by me (1pt min.). @ -[None done] CT interpreted by me (1pt min.). @ -[None done] U/S interpreted by me (1pt. min.). @ -[None done] What testing was considered but not performed or refused? (CT, X-rays, U/S, labs)? Why? @ -[None] What meds were considered but not given or refused? Why? @ -[None] Did you discuss the management of the patient with other professionals (professionals i.e. , PA, ASPHALT TAMPING MACHINE OPERATOR, lab, RT, psych nurse, social security specialist, motors and controls tester, teacher, sheriff officer, rn case mgr)? Give summary @ -[No] Was smoking cessation discussed for >3mins.? @ -[No] Was critical care preformed (if so, how long)? @ -[No] Were there social determinants of health that impacted care today? How? (Homelessness, low income, unemployed, alcoholism, drug addiction, transportation, low edu. Level, literacy, decrease access to med. care, usp, rehab)? @ -[Alcohol abuse Was there de-escalation of care discussed even if they declined (Discuss DNR or withdrawal of care, Hospice)? DNR status @ -[No] What co-morbidities impacted this encounter? (DM, HTN, Smoking, COPD, CAD, Cancer, CVA, ARF, Chemo, Hep., AIDS, mental health diagnosis, sleep apnea, morbid obesity)? @ -[Alcohol abuse Was patient admitted / discharged? Hospital course, mention meds given and route, prescriptions, significant lab abnormalities, going to OR and other pertinent info. @ -[Patient is 64-year-old woman who presents with complaints of some mild generalized weakness. The patient found to have mild hyponatremia and mild hypokalemia. These are supplemented. The patient is recommended to stop drinking. We discussed further care and follow-up as well as return parameters. Undiagnosed new problem with uncertain prognosis? @ -[No] Drug Therapy requiring intensive monitoring for toxicity (Heparin, Nitro, Insulin, Cardizem)? @ -[No] Were any procedures done? @ -[No] Diagnosis/symptom? @ -Acute hypokalemia Acute hyponatremia Alcohol abuse Acute, or Chronic, or Acute on Chronic? @ -[Acute Uncomplicated (without systemic symptoms) or Complicated (systemic symptoms)? @ -[Uncomplicated Side effects of treatment? @ -[No] Exacerbation, Progression, or Severe Exacerbation? @ -[No] Poses a threat to life or bodily function? How? (Chest pain, [place], [place], pneumonia, PE, COPD, DKA, ARF, appy, cholecystitis, CVA, Diverticulitis, Homicidal, Suicidal, threat to staff... and all critical care pts) @ -[No] All treatments are based on ideal body weight as in ED triage - Lab Data Result diagrams: 10/29/24 17:35 10/29/24 17:35 Lab Results 10/29/24 10/29/24 Range/Units 17:35 17:35 WBC 3.8 (3.8-10.6) k/uL RBC 4.02 (3.80-5.40) m/uL Hgb 12.2 (11.4-16.0) gm/dL Hct 36.2 (34.0-46.0) % MCV 90.0 (80.0-100.0) fL MCH 30.2 (25.0-35.0) pg MCHC 33.6 (31.0-37.0) g/dL RDW 18.4 H (11.5-15.5) % Plt Count 48 L D (150-450) k/uL MPV 10.1 Neutrophils % 65 % Lymphocytes % 19 % Monocytes % 10 % Eosinophils % 2 % Basophils % 1 % Neutrophils # 2.5 (1.3-7.7) k/uL Lymphocytes # 0.7 L (1.0-4.8) k/uL Monocytes # 0.4 (0-1.0) k/uL Eosinophils # 0.1 (0-0.7) k/uL Basophils # 0.0 (0-0.2) k/uL Manual Slide Review Performed Large Platelets Present Polychromasia Present Anisocytosis Slight Sodium 128 L (137-145) mmol/L Potassium 2.5 L* (3.5-5.1) mmol/L Chloride 88 L (98-107) mmol/L Carbon Dioxide 29 (22-30) mmol/L Anion Gap 11 mmol/L BUN 9 (7-17) mg/dL Creatinine 0.63 (0.52-1.04) mg/dL Est GFR (CKD-EPI)AfAm >90 (>60 ml/min/1.73 sqM) Est GFR (CKD-EPI)NonAf >90 (>60 ml/min/1.73 sqM) Glucose 94 (74-99) mg/dL Calcium 10.0 (8.4-10.2) mg/dL Magnesium 1.9 (1.6-2.3) mg/dL Total Bilirubin 0.8 (0.2-1.3) mg/dL AST 76 H (14-36) U/L ALT 59 H (4-34) U/L Alkaline Phosphatase 137 H (38-126) U/L Total Protein 7.4 (6.3-8.2) g/dL Albumin 4.7 (3.5-5.0) g/dL Serum Alcohol <10 mg/dL Disposition Clinical Impression: Hypokalemia, Hyponatremia Disposition: HOME SELF-CARE Condition: Good Instructions (If sedation given, give patient instructions): Hyponatremia (ED), Hypokalemia (ED) Prescriptions: Potassium Chloride ER [K-Dur 20] 20 meq PO BID #10 tab Is patient prescribed a controlled substance at d/c from ED?: No Referrals: Miya Johnson MD [Primary Care Provider] - 1-2 days
[2024-10-29 17:43] LABS: Anisocytosis Slight; Basophils % (A) 1 %; Eosinophils # (A) 0.1 k/uL (0-0.7); Eosinophils % (A) 2 %; HCT 36.2 % (34.0-46.0); HGB 12.2 gm/dL (11.4-16.0); Lymphocytes # (A) 0.7 k/uL (1.0-4.8); Lymphocytes % (A) 19 %; MCH 30.2 pg (25.0-35.0); MCHC 33.6 g/dL (31.0-37.0); Mean Platelet Volume 10.1; Monocytes # (A) 0.4 k/uL (0-1.0); Monocytes % (A) 10 %; Neutrophils # (A) 2.5 k/uL (1.3-7.7); Neutrophils % (A) 65 %; RBC 4.02 m/uL (3.80-5.40); RDW 18.4 % (11.5-15.5); WBC 3.8 k/uL (3.8-10.6)
[2024-10-29] MEDS: SODIUM CHLORIDE 0.9% 500 ML 500 ML IV STA ×2 (17:44→18:45)
[2024-10-29 18:03] LABS: ALT 59 U/L (4-34); AST 76 U/L (14-36); African American GFR (CKD) >90 (>60 ml/min/1.73 sqM); Albumin 4.7 g/dL (3.5-5.0); Alcohol <10 mg/dL; Alkaline Phosphatase 137 U/L (38-126); Anion Gap 11 mmol/L; Blood Urea Nitrogen 9 mg/dL (7-17); Carbon Dioxide 29 mmol/L (22-30); Chloride 88 mmol/L (98-107); Glucose 94 mg/dL (74-99); Magnesium 1.9 mg/dL (1.6-2.3); Non-African American GFR(CKD) >90 (>60 ml/min/1.73 sqM); Sodium 128 mmol/L (137-145); Total Bilirubin 0.8 mg/dL (0.2-1.3); Total Protein 7.4 g/dL (6.3-8.2)
[2024-10-29 18:16] LABS: Large Platelets Present; Polychromasia Present
[2024-10-29 18:18] LABS: Platelet Count 48 k/uL (150-450)
[2024-10-29 18:22] LABS: Potassium 2.5 mmol/L (3.5-5.1)
[2024-10-29] MEDS: POTASSIUM BICARBONATE/CIT AC 20 MEQ TABLET.EFF PO ONE (18:49)
[2024-10-29 20:54] VITALS: BP 105/73; PULSE 84; RESP 16; TEMP 98.1
== END 2024-10-29 20:55 | disposition home or self-care (01) ==
LOC: EC 16:41
DX: E87.6 Hypokalemia (principal); E87.1 Hypo-osmolality and hyponatremia; F17.200 Nicotine dependence, unspecified, uncomplicated; Z88.5 Allergy status to narcotic agent; Z88.7 Allergy status to serum and vaccine; Z91.09 Other allergy status, other than to drugs and biological substances; Z91.018 Allergy to other foods; Z91.040 Latex allergy status; Z91.048 Other nonmedicinal substance allergy status; Z88.8 Allergy status to other drugs, medicaments and biological substances; I10 Essential (primary) hypertension
CPT/HCPCS: 36415; 80053; 83735; 85025; 99284; 96360; 96361; G0480; 80320

== ENCOUNTER 2024-11-04 18:47 | Emergency (ER) | payer OTHER ==
[2024-11-04 18:59] VITALS: TEMP 98
[2024-11-04] MEDS: SODIUM CHLORIDE 0.9% 1,000 ML IV STA (19:10)
[2024-11-04 19:19] LABS: Anisocytosis Slight; Basophils # (A) 0.1 k/uL (0-0.2); Basophils % (A) 2 %; Eosinophils # (A) 0.1 k/uL (0-0.7); Eosinophils % (A) 2 %; HCT 34.1 % (34.0-46.0); HGB 10.9 gm/dL (11.4-16.0); Hypochromasia Slight; Lymphocytes # (A) 1.9 k/uL (1.0-4.8); Lymphocytes % (A) 27 %; MCH 29.6 pg (25.0-35.0); MCHC 32.1 g/dL (31.0-37.0); MCV 92.2 fL (80.0-100.0); Monocytes # (A) 0.6 k/uL (0-1.0); Monocytes % (A) 8 %; Neutrophils % (A) 58 %; RBC 3.69 m/uL (3.80-5.40); RDW 18.4 % (11.5-15.5)
--- NOTE | 2024-11-04 19:26 | ED ---
Dizziness HPI - General Chief Complaint: Dizziness Stated Complaint: light headedness Time Seen by Provider: 11/04/24 18:52 Source: patient, EMS, RN notes reviewed Mode of arrival: EMS Limitations: no limitations - History of Present Illness Initial Comments: 64-year-old female presents emergency department chief complaint of being lightheaded. Patient states she just felt lightheaded today. Patient does admit to alcohol use today which is chronic for this patient. Patient denies any falls no head injury no complaints of chest pain patient states that she has had no nausea vomiting she has not been eating much but only drinking alcohol. Patient denies fevers chills cough or cold-like symptoms - Related Data Home Medications Medication Instructions Recorded Confirmed Budesonide/Formoterol Fumarate 2 puff INHALATION RT-HS 07/29/23 09/10/24 [Symbicort 160-4.5 Mcg Inhaler] Multivitamin [Multivitamins Adult 2 tab PO HS 12/04/23 09/10/24 Gummies] Brimonidine Tartrate [Alphagan P 1 drop BOTH EYES BID 02/02/24 09/10/24 0.2% Ophth Soln] Fluticasone Nasal [place] [Flonase 2 spr EA NOSTRIL HS 02/02/24 09/10/24 Nasal [place]] Artificial Tears-Hypromellose 1 drop BOTH EYES TID PRN 03/10/24 09/10/24 [Artificial Tear Drops] Potassium Chloride ER [K-Dur 20] 20 meq PO HS 03/15/24 09/10/24 Cholecalciferol (Vitamin D3) 50 mcg PO HS 05/03/24 09/10/24 [Vitamin D3 (50 Mcg = 2000 Iu)] Ferrous Sulfate [Iron (65 MG 325 mg PO HS 05/03/24 09/10/24 Elemental)] Ipratropium-Albuterol Nebulize 3 ml INHALATION RT-QID PRN 05/24/24 09/10/24 [Duoneb 0.5 mg-3 mg/3 ml Soln] Albuterol Sulfate [Ventolin HFA] 1 - 2 puff INHALATION RT-Q6H PRN 09/10/24 09/10/24 Previous Rx's Medication Instructions Recorded Aspirin EC [Ecotrin Low Dose] 81 mg PO HS #90 tab 05/25/24 Atorvastatin [Lipitor] 80 mg PO HS #90 tab 05/25/24 Isosorbide Mononitrate ER [Imdur] 30 mg PO HS #90 tab 05/25/24 Magnesium Oxide [Mag-Ox] 400 mg PO HS #90 tab 05/25/24 Metoprolol Succinate (ER) [Toprol 50 mg PO HS #90 tab 05/25/24 XL] Ticagrelor [Brilinta] 90 mg PO HS #90 tab 05/25/24 Cephalexin [Keflex] 500 mg PO Q12HR 7 Days #14 cap 09/11/24 Losartan [Cozaar] 25 mg PO DAILY #30 tab 09/11/24 Potassium Chloride ER [K-Dur 20] 20 meq PO BID #10 tab 10/29/24 Allergies Allergy/AdvReac Type Severity Reaction Status Date / Time Ransom And Derivatives Allergy Rash/Hives Verified 10/29/24 16:50 [Ransom] latex Allergy Rash/Hives Verified 11/04/24 19:01 adhesive tape AdvReac Rash/Hives Verified 11/04/24 19:00 amlodipine [From Norvasc] AdvReac Cough Verified 10/29/24 16:50 cinnamon AdvReac Nausea Verified 10/29/24 16:50 clonidine AdvReac "almost Verified 10/29/24 16:50 passed out" gabapentin AdvReac Dizziness Verified 10/29/24 16:50 Influenza Virus Vaccines AdvReac Nausea & Verified 10/29/24 16:50 Vomiting lisinopril AdvReac Cough Verified 10/29/24 16:50 morphine AdvReac Nausea & Verified 10/29/24 16:50 Vomiting sucralfate [From Carafate] AdvReac Abdominal Verified 10/29/24 16:50 Pain tomato AdvReac Diarrhea Verified 10/17/24 15:31 Review of Systems ROS Statement: Those systems with pertinent positive or pertinent negative responses have been documented in the HPI. ROS Other: All systems not noted in ROS Statement are negative. Past Medical History Past Medical History: Asthma, Coronary Artery Disease (CAD), COPD, CVA/TIA, Eye Disorder, Hypertension, Liver Disease, Myocardial Infarction (DC), Seizure Disorder, Vascular Disorder Additional Past Medical History / Comment(s): Pt recently admitted to [facility] for diarrhea, ETOH abuse. 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 Past Psychological History: Anxiety, Depression Smoking Status: Current every day smoker Past Alcohol Use History: Abuse, Daily, Heavy Past Drug Use History: Marijuana - Past Family History Mother Family Medical History: Cancer, Congestive Heart Failure (CHF), Coronary Artery Disease (CAD), Hyperlipidemia Additional Family Medical History / Comment(s): Mother at age 85 from lung cancer. Father Family Medical History: Cancer, COPD Additional Family Medical History / Comment(s): Father at age 63 from lung cancer. Brother(s) Additional Family Medical History / Comment(s): Patient has a total of 7 siblings. 5 are alive without any major medical problems she is aware of. 2 siblings have one from alcohol abuse and 1. Coronary artery disease. Daughter(s) Family Medical History: No Reported History Additional Family Medical History / Comment(s): Patient has one daughter with no major medical problems. General Exam Limitations: no limitations General appearance: alert, in no apparent distress Head exam: Present: atraumatic, normocephalic, normal inspection Eye exam: Present: normal appearance, PERRL, EOMI. Absent: scleral icterus, conjunctival injection, periorbital swelling ENT exam: Present: normal exam, normal oropharynx, mucous membranes moist Neck exam: Present: normal inspection, full ROM. Absent: tenderness, meningismus, lymphadenopathy Respiratory exam: Present: normal lung sounds bilaterally. Absent: respiratory distress, wheezes, rales, rhonchi, stridor Cardiovascular Exam: Present: regular rate, normal rhythm, normal heart sounds. Absent: systolic murmur, diastolic murmur, rubs, gallop, clicks GI/Abdominal exam: Present: soft, normal bowel sounds. Absent: distended, tenderness, guarding, rebound, rigid Neurological exam: Present: alert, oriented X3, CN II-XII intact, reflexes normal. Absent: motor sensory deficit Skin exam: Present: warm, dry, intact, normal color. Absent: rash Course Vital Signs 11/04/24 11/04/24 11/04/24 18:49 19:30 19:45 Temperature 98.0 F Pulse Rate 79 86 87 Respiratory 18 18 18 Rate Blood Pressure 86/57 104/60 110/63 O2 Sat by Pulse 97 95 95 Oximetry Medical Decision Making - Medical Decision Making Was pt. sent in by a medical professional or institution (, PA, HIGH DENSITY PRESS OPERATOR, urgent care, hospital, or [facility]...) When possible be specific @ -No Did you speak to anyone other than the patient for history (EMS, parent, family, police, friend...)? What history was obtained from this source @ -No Did you review nursing and triage notes (agree or disagree)? Why? @ -I reviewed and agree with nursing and triage notes Were old charts reviewed (outside hosp., previous admission, EMS record, old EKG, old radiological studies, urgent care reports/EKG's, [facility] records)? Report findings @ -No old charts were reviewed Differential Diagnosis (chest pain, altered mental status, abdominal pain women, abdominal pain men, vaginal bleeding, weakness, fever, dyspnea, syncope, headache, dizziness, GI bleed, back pain, seizure, CVA, palpatations, mental health, musculoskeletal)? @ Differential Dizziness: Benign paroxysmal positional Vertigo, Meniere's disease, otitis media, acoustic neuroma, vertebrobasilar insufficiency, cerebellar stroke, encephalitis, hypovolemic, arrhythmia, coronary artery syndrome, anemia, this is not meant to be an all-inclusive list EKG interpreted by me (3pts min.). @ -As above X-rays interpreted by me (1pt min.). @ -None done CT interpreted by me (1pt min.). @ -None done U/S interpreted by me (1pt. min.). @ -None done What testing was considered but not performed or refused? (CT, X-rays, U/S, l abs)? Why? @ -None What meds were considered but not given or refused? Why? @ -None Did you discuss the management of the patient with other professionals (professionals i.e. DrTequila, PA, HIGH DENSITY PRESS OPERATOR, lab, RT, psych nurse, social media intern, treasury analyst, teacher, aviation tactical readiness officer, shoe caser)? Give summary @ -No Was smoking cessation discussed for >3mins.? @ -No Was critical care preformed (if so, how long)? @ -No Were there social determinants of health that impacted care today? How? (Homelessness, low income, unemployed, alcoholism, drug addiction, transportation, low edu. Level, literacy, decrease access to med. care, custodial, rehab)? @ -No Was there de-escalation of care discussed even if they declined (Discuss DNR or withdrawal of care, Hospice)? DNR status @ -No What co-morbidities impacted this encounter? (DM, HTN, Smoking, COPD, CAD, Cancer, CVA, ARF, Chemo, Hep., AIDS, mental health diagnosis, sleep apnea, morbid obesity)? @ -Alcohol abuse Was patient admitted / discharged? Hospital course, mention meds given and route, prescriptions, significant lab abnormalities, going to OR and other pertinent info. @ -Discharge patient feels greatly improved blood pressure within normal limits. Patient was hydrated, patient not to be acutely intoxicated. Patient is discharged in stable condition after several hours of monitoring. Undiagnosed new problem with uncertain prognosis? @ -No Drug Therapy requiring intensive monitoring for toxicity (Heparin, Nitro, Insulin, Cardizem)? @ -No Were any procedures done? @ -No Diagnosis/symptom? @ -Alcohol intoxication, lightheadedness Acute, or Chronic, or Acute on Chronic? @ -Acute Uncomplicated (without systemic symptoms) or Complicated (systemic symptoms)? @ -Uncomplicated Side effects of treatment? @ -No Exacerbation, Progression, or Severe Exacerbation? @ -No Poses a threat to life or bodily function? How? (Chest pain, USA, DC, pneumonia, PE, COPD, DKA, ARF, appy, cholecystitis, CVA, Diverticulitis, Homicidal, Suicidal, threat to staff... and all critical care pts) @ -No - Lab Data Result diagrams: 11/04/24 19:13 11/04/24 19:13 Lab Results 11/04/24 11/04/24 11/04/24 Range/Units 19:13 19:13 19:13 WBC 7.0 (3.8-10.6) k/uL RBC 3.69 L (3.80-5.40) m/uL Hgb 10.9 L (11.4-16.0) gm/dL Hct 34.1 (34.0-46.0) % MCV 92.2 (80.0-100.0) fL MCH 29.6 (25.0-35.0) pg MCHC 32.1 (31.0-37.0) g/dL RDW 18.4 H (11.5-15.5) % Plt Count 250 D (150-450) k/uL MPV 8.0 Neutrophils % 58 % Lymphocytes % 27 % Monocytes % 8 % Eosinophils % 2 % Basophils % 2 % Neutrophils # 4.0 (1.3-7.7) k/uL Lymphocytes # 1.9 (1.0-4.8) k/uL Monocytes # 0.6 (0-1.0) k/uL Eosinophils # 0.1 (0-0.7) k/uL Basophils # 0.1 (0-0.2) k/uL Hypochromasia Slight Anisocytosis Slight Sodium 136 L (137-145) mmol/L Potassium 3.9 (3.5-5.1) mmol/L Chloride 101 (98-107) mmol/L Carbon Dioxide 26 (22-30) mmol/L Anion Gap 9 mmol/L BUN 8 (7-17) mg/dL Creatinine 0.80 (0.52-1.04) mg/dL Est GFR (CKD-EPI)AfAm >90 (>60 ml/min/1.73 sqM) Est GFR (CKD-EPI)NonAf 79 (>60 ml/min/1.73 sqM) Glucose 105 H (74-99) mg/dL Calcium 8.7 (8.4-10.2) mg/dL Magnesium 1.5 L (1.6-2.3) mg/dL Total Bilirubin 0.4 (0.2-1.3) mg/dL AST 65 H (14-36) U/L ALT 48 H (4-34) U/L Alkaline Phosphatase 63 (38-126) U/L Troponin I <0.012 (0.000-0.034) ng/mL Total Protein 5.9 L (6.3-8.2) g/dL Albumin 3.5 (3.5-5.0) g/dL Lipase 155 (23-300) U/L Urine Color Urine Appearance (Clear) Urine pH (5.0-8.0) Ur Specific [place] (1.001-1.035) Urine Protein (Negative) Urine Glucose (UA) (Negative) Urine Ketones (Negative) Urine Blood (Negative) Urine Nitrite (Negative) Urine Bilirubin (Negative) Urine Urobilinogen (<2.0) mg/dL Ur Leukocyte Esterase (Negative) Serum Alcohol 239 H* mg/dL 11/04/24 Range/Units 20:51 WBC (3.8-10.6) k/uL RBC (3.80-5.40) m/uL Hgb (11.4-16.0) gm/dL Hct (34.0-46.0) % MCV (80.0-100.0) fL MCH (25.0-35.0) pg MCHC (31.0-37.0) g/dL RDW (11.5-15.5) % Plt Count (150-450) k/uL MPV Neutrophils % % Lymphocytes % % Monocytes % % Eosinophils % % Basophils % % Neutrophils # (1.3-7.7) k/uL Lymphocytes # (1.0-4.8) k/uL Monocytes # (0-1.0) k/uL Eosinophils # (0-0.7) k/uL Basophils # (0-0.2) k/uL Hypochromasia Anisocytosis Sodium (137-145) mmol/L Potassium (3.5-5.1) mmol/L Chloride (98-107) mmol/L Carbon Dioxide (22-30) mmol/L Anion Gap mmol/L BUN (7-17) mg/dL Creatinine (0.52-1.04) mg/dL Est GFR (CKD-EPI)AfAm (>60 ml/min/1.73 sqM) Est GFR (CKD-EPI)NonAf (>60 ml/min/1.73 sqM) Glucose (74-99) mg/dL Calcium (8.4-10.2) mg/dL Magnesium (1.6-2.3) mg/dL Total Bilirubin (0.2-1.3) mg/dL AST (14-36) U/L ALT (4-34) U/L Alkaline Phosphatase (38-126) U/L Troponin I (0.000-0.034) ng/mL Total Protein (6.3-8.2) g/dL Albumin (3.5-5.0) g/dL Lipase (23-300) U/L Urine Color Colorless Urine Appearance Clear (Clear) Urine pH 5.5 (5.0-8.0) Ur Specific [place] 1.003 (1.001-1.035) Urine Protein Negative (Negative) Urine Glucose (UA) Negative (Negative) Urine Ketones Negative (Negative) Urine Blood Negative (Negative) Urine Nitrite Negative (Negative) Urine Bilirubin Negative (Negative) Urine Urobilinogen <2.0 (<2.0) mg/dL Ur Leukocyte Esterase Negative (Negative) Serum Alcohol mg/dL - EKG Data -: EKG Interpreted by Me EKG Comments: EKG performed at 18: 56 sinus rhythm rate 70 NV 124 QRS 96 QT/QTc 450/471 Disposition Clinical Impression: Dehydration, Light headedness, Acute alcohol intoxication Disposition: HOME SELF-CARE Condition: Stable Instructions (If sedation given, give patient instructions): Dizziness (ED) Additional Instructions: Please return to the Emergency Department if symptoms worsen or any other concerns. Is patient prescribed a controlled substance at d/c from ED?: No Referrals: Miya Johnson MD [Primary Care Provider] - 1-2 days Time of Disposition: 21:36
[2024-11-04 19:30] LABS: ALT 48 U/L (4-34); African American GFR (CKD) >90 (>60 ml/min/1.73 sqM); Anion Gap 9 mmol/L; Blood Urea Nitrogen 8 mg/dL (7-17); Calcium 8.7 mg/dL (8.4-10.2); Carbon Dioxide 26 mmol/L (22-30); Chloride 101 mmol/L (98-107); Glucose 105 mg/dL (74-99); Lipase 155 U/L (23-300); Non-African American GFR(CKD) 79 (>60 ml/min/1.73 sqM); Sodium 136 mmol/L (137-145)
[2024-11-04 19:31] LABS: AST 65 U/L (14-36); Albumin 3.5 g/dL (3.5-5.0); Alcohol 239 mg/dL; Alkaline Phosphatase 63 U/L (38-126); Magnesium 1.5 mg/dL (1.6-2.3); Potassium 3.9 mmol/L (3.5-5.1); Total Bilirubin 0.4 mg/dL (0.2-1.3); Total Protein 5.9 g/dL (6.3-8.2)
[2024-11-04 19:35] LABS: Platelet Count 250 k/uL (150-450)
[2024-11-04] MEDS: MAGNESIUM SULFATE-D5W PMX 1 GM in DEXTROSE/WATER 1 100ML.BAG IVPB ONE (19:59)
[2024-11-04 20:58] LABS: Appearance,Urine Clear (Clear); Bilirubin,Urine Negative (Negative); Blood,Urine Negative (Negative); Color,Urine Colorless; Glucose,Urine (UA) Negative (Negative); Ketones,Urine Negative (Negative); Leukocyte Esterase,Urine Negative (Negative); Nitrite,Urine Negative (Negative); PH, Urine 5.5 (5.0-8.0); Protein,Urine Negative (Negative); Specific Gravity,Urine 1.003 (1.001-1.035); Urobilinogen,Urine <2.0 mg/dL (<2.0)
[2024-11-04] MEDS: SODIUM CHLORIDE 0.9% 1,000 ML IV ONE (20:59)
[2024-11-04 21:55] VITALS: BP 127/70; PULSE 93
[2024-11-04] MEDS: SODIUM CHLORIDE 0.9% 1,000 ML IV SCH (22:50)
[2024-11-04 22:51] VITALS: RESP 16
== END 2024-11-04 22:51 | disposition home or self-care (01) ==
LOC: EC 18:47
DX: F10.129 Alcohol abuse with intoxication, unspecified (principal); E86.0 Dehydration; R42 Dizziness and giddiness; F17.200 Nicotine dependence, unspecified, uncomplicated; Z88.5 Allergy status to narcotic agent; Z88.7 Allergy status to serum and vaccine; Z88.8 Allergy status to other drugs, medicaments and biological substances; Z91.040 Latex allergy status; Z86.73 Personal history of transient ischemic attack (TIA), and cerebral infarction without residual deficits
CPT/HCPCS: 36415; 93005; 80053; 83690; 83735; 84484; 85025; 81003; 99284; 96365; 96361; G0480; J3475; 80320

== ENCOUNTER 2024-11-06 23:22 | Emergency (ER) | payer OTHER ==
[2024-11-06 23:32] VITALS: TEMP 98.1
[2024-11-07 00:11] LABS: Anisocytosis Slight; Basophils # (A) 0.1 k/uL (0-0.2); Basophils % (A) 2 %; Eosinophils # (A) 0.1 k/uL (0-0.7); Eosinophils % (A) 1 %; HCT 38.1 % (34.0-46.0); HGB 12.2 gm/dL (11.4-16.0); Hypochromasia Slight; Lymphocytes % (A) 23 %; MCH 29.4 pg (25.0-35.0); MCHC 31.9 g/dL (31.0-37.0); Monocytes # (A) 0.5 k/uL (0-1.0); Monocytes % (A) 6 %; Neutrophils # (A) 5.6 k/uL (1.3-7.7); Neutrophils % (A) 65 %; Platelet Count 296 k/uL (150-450); RBC 4.14 m/uL (3.80-5.40); RDW 18.5 % (11.5-15.5); WBC 8.6 k/uL (3.8-10.6)
[2024-11-07 00:30] LABS: ALT 37 U/L (4-34); AST 32 U/L (14-36); African American GFR (CKD) >90 (>60 ml/min/1.73 sqM); Albumin 4.3 g/dL (3.5-5.0); Alkaline Phosphatase 113 U/L (38-126); Anion Gap 9 mmol/L; Blood Urea Nitrogen 5 mg/dL (7-17); Calcium 8.9 mg/dL (8.4-10.2); Carbon Dioxide 27 mmol/L (22-30); Chloride 109 mmol/L (98-107); Glucose 108 mg/dL (74-99); Non-African American GFR(CKD) >90 (>60 ml/min/1.73 sqM); Potassium 3.1 mmol/L (3.5-5.1); Sodium 145 mmol/L (137-145); Total Bilirubin 0.3 mg/dL (0.2-1.3)
[2024-11-07] MEDS: SODIUM CHLORIDE 0.9% 500 ML 500 ML IV STA (00:36)
[2024-11-07] MEDS: LORazepam 2 MG/ML INJ IV STA (00:36)
--- NOTE | 2024-11-07 01:28 | CT ---
EXAM: CT Head Without Intravenous Contrast CLINICAL HISTORY: ITS.REASON CT Reason: fall injury TECHNIQUE: Axial computed tomography images of the head/brain without intravenous contrast. CTDI is 49.2 mGy and DLP is 1126.4 mGy-cm. This CT exam was performed using one or more of the following dose reduction techniques: automated exposure control, adjustment of the mA and/or kV according to patient size, and/or use of iterative reconstruction technique. COMPARISON: 09/22/2024 FINDINGS: Brain: No hemorrhage or mass effect. 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 Left frontal and parietal encephalomalacia. Ventricles: No hydrocephalus. Bones/joints: Unremarkable. Soft tissues: Unremarkable. Sinuses: No air fluid level. Mastoid air cells: Clear. IMPRESSION: No acute hemorrhage, hydrocephalus, or mass effect. 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
[2024-11-07 04:08] VITALS: RESP 18
[2024-11-07] MEDS: SODIUM CHLORIDE 0.9% 1,000 ML IV ONE (04:08)
--- NOTE | 2024-11-07 05:29 | ED ---
Dizziness HPI - General Chief Complaint: Dizziness Stated Complaint: Pain Time Seen by Provider: 11/06/24 23:23 Source: patient Mode of arrival: EMS Limitations: no limitations - History of Present Illness Initial Comments: This patient is 64-year-old woman who presents to have evaluation for dizziness. She states that it had come on earlier and has worsened. Patient does admit to drinking over the course last night. She states the last time she felt like this her potassium and magnesium was found to be low. MD Complaint: dizziness -: hour(s) Timing: gradual onset Description: off-balance, difficulty walking History of Same: Yes History of Trauma: No Severity: moderate Improves With: nothing Worsens With: movement Associated Symptoms: denies other symptoms - Related Data Home Medications Medication Instructions Recorded Confirmed Budesonide/Formoterol Fumarate 2 puff INHALATION RT-HS 07/29/23 09/10/24 [Symbicort 160-4.5 Mcg Inhaler] Multivitamin [Multivitamins Adult 2 tab PO HS 12/04/23 09/10/24 Gummies] Brimonidine Tartrate [Alphagan P 1 drop BOTH EYES BID 02/02/24 09/10/24 0.2% Ophth Soln] Fluticasone Nasal [place] [Flonase 2 spr EA NOSTRIL HS 02/02/24 09/10/24 Nasal [place]] Artificial Tears-Hypromellose 1 drop BOTH EYES TID PRN 03/10/24 09/10/24 [Artificial Tear Drops] Potassium Chloride ER [K-Dur 20] 20 meq PO HS 03/15/24 09/10/24 Cholecalciferol (Vitamin D3) 50 mcg PO HS 05/03/24 09/10/24 [Vitamin D3 (50 Mcg = 2000 Iu)] Ferrous Sulfate [Iron (65 MG 325 mg PO HS 05/03/24 09/10/24 Elemental)] Ipratropium-Albuterol Nebulize 3 ml INHALATION RT-QID PRN 05/24/24 09/10/24 [Duoneb 0.5 mg-3 mg/3 ml Soln] Albuterol Sulfate [Ventolin HFA] 1 - 2 puff INHALATION RT-Q6H PRN 09/10/24 09/10/24 Previous Rx's Medication Instructions Recorded Aspirin EC [Ecotrin Low Dose] 81 mg PO HS #90 tab 05/25/24 Atorvastatin [Lipitor] 80 mg PO HS #90 tab 05/25/24 Isosorbide Mononitrate ER [Imdur] 30 mg PO HS #90 tab 05/25/24 Magnesium Oxide [Mag-Ox] 400 mg PO HS #90 tab 05/25/24 Metoprolol Succinate (ER) [Toprol 50 mg PO HS #90 tab 05/25/24 XL] Ticagrelor [Brilinta] 90 mg PO HS #90 tab 05/25/24 Cephalexin [Keflex] 500 mg PO Q12HR 7 Days #14 cap 09/11/24 Losartan [Cozaar] 25 mg PO DAILY #30 tab 09/11/24 Potassium Chloride ER [K-Dur 20] 20 meq PO BID #10 tab 10/29/24 chlordiazePOXIDE HCl [Librium] 25 mg PO TID 3 Days #9 capsule 11/09/24 LORazepam [Ativan] 2 mg PO TID 3 Days #9 tab 11/10/24 Allergies Allergy/AdvReac Type Severity Reaction Status Date / Time [place] And Derivatives Allergy Rash/Hives Verified 11/10/24 14:54 [[place]] latex Allergy Rash/Hives Verified 11/10/24 14:54 adhesive tape AdvReac Rash/Hives Verified 11/10/24 14:54 amlodipine [From Norvasc] AdvReac Cough Verified 11/10/24 14:54 cinnamon AdvReac Nausea Verified 11/10/24 14:54 clonidine AdvReac "almost Verified 11/10/24 14:54 passed out" gabapentin AdvReac Dizziness Verified 11/10/24 14:54 Influenza Virus Vaccines AdvReac Nausea & Verified 11/10/24 14:54 Vomiting lisinopril AdvReac Cough Verified 11/10/24 14:54 morphine AdvReac Nausea & Verified 11/10/24 14:54 Vomiting sucralfate [From Carafate] AdvReac Abdominal Verified 11/10/24 14:54 Pain tomato AdvReac Diarrhea Verified 11/10/24 14:54 Review of Systems ROS Statement: Those systems with pertinent positive or pertinent negative responses have been documented in the HPI. ROS Other: All systems not noted in ROS Statement are negative. Constitutional: Denies: fever, chills, weakness Eyes: Denies: vision change Respiratory: Denies: cough, dyspnea Cardiovascular: Denies: chest pain, palpitations, edema, syncope Gastrointestinal: Denies: abdominal pain, nausea, vomiting, diarrhea Genitourinary: Denies: dysuria, hematuria Musculoskeletal: Denies: back pain Skin: Denies: rash Neurological: Denies: headache, weakness, numbness Past Medical History Past Medical History: Asthma, Coronary Artery Disease (CAD), COPD, CVA/TIA, Eye Disorder, Hypertension, Liver Disease, Myocardial Infarction ([place]), Seizure Disorder, Vascular Disorder Additional Past Medical History / Comment(s): Pt recently admitted to [facility] for diarrhea, ETOH abuse. 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 Past Psychological History: Anxiety, Depression Smoking Status: Current every day smoker Past Alcohol Use History: Abuse, Daily, Heavy Past Drug Use History: Marijuana - Past Family History Mother Family Medical History: Cancer, Congestive Heart Failure (CHF), Coronary Artery Disease (CAD), Hyperlipidemia Additional Family Medical History / Comment(s): Mother at age 85 from lung cancer. Father Family Medical History: Cancer, COPD Additional Family Medical History / Comment(s): Father at age 63 from lung cancer. Brother(s) Additional Family Medical History / Comment(s): Patient has a total of 7 siblings. 5 are alive without any major medical problems she is aware of. 2 siblings have one from alcohol abuse and 1. Coronary artery disease. Daughter(s) Family Medical History: No Reported History Additional Family Medical History / Comment(s): Patient has one daughter with no major medical problems. General Exam Limitations: no limitations General appearance: alert, in no apparent distress Head exam: Present: atraumatic, normocephalic, normal inspection Eye exam: Present: normal appearance ENT exam: Present: mucous membranes dry Neck exam: Present: normal inspection Respiratory exam: Present: normal lung sounds bilaterally. Absent: respiratory distress, wheezes, rales, rhonchi, stridor, accessory muscle use Cardiovascular Exam: Present: regular rate, normal rhythm, normal heart sounds. Absent: systolic murmur, diastolic murmur, rubs, gallop GI/Abdominal exam: Present: soft. Absent: distended, tenderness, guarding, rebound, rigid, mass Extremities exam: Present: normal inspection, normal capillary refill. Absent: pedal edema, calf tenderness Back exam: Present: normal inspection. Absent: CVA tenderness (R), CVA tenderness (L) Neurological exam: Present: alert, oriented X3, CN II-XII intact. Absent: motor sensory deficit Skin exam: Present: warm, dry, intact, normal color. Absent: rash Course Vital Signs 11/06/24 11/07/24 11/07/24 23:25 04:06 05:51 Temperature 98.1 F Pulse Rate 84 100 115 H Respiratory 20 18 18 Rate Blood Pressure 122/86 85/66 131/107 O2 Sat by Pulse 97 97 99 Oximetry Medical Decision Making - Medical Decision Making Was pt. sent in by a medical professional or institution (YESSY Lloyd, ACTIVITIES COORDINATOR, urgent care, hospital, or [place] health care facility...) When possible be specific @ -[No] Did you speak to anyone other than the patient for history (EMS, parent, family, police, friend...)? What history was obtained from this source @ -[No] Did you review nursing and triage notes (agree or disagree)? Why? @ -[I reviewed and agree with nursing and triage notes] Were old charts reviewed (outside hosp., previous admission, EMS record, old EKG, old radiological studies, urgent care reports/EKG's, [place] health care facility records)? Report findings @ -[No old charts were reviewed] Differential Diagnosis (chest pain, altered mental status, abdominal pain women, abdominal pain men, vaginal bleeding, weakness, fever, dyspnea, syncope, headache, dizziness, GI bleed, back pain, seizure, CVA, palpatations, mental health, musculoskeletal)? @ -[Differential Dizziness: Benign paroxysmal positional Vertigo, Meniere's disease, otitis media, acoustic neuroma, vertebrobasilar insufficiency, cerebellar stroke, encephalitis, hypovolemic, arrhythmia, coronary artery syndrome, anemia, this is not meant to be an all-inclusive list EKG interpreted by me (3pts min.). @ -[As above] X-rays interpreted by me (1pt min.). @ -[None done] CT interpreted by me (1pt min.). @ -[None done] U/S interpreted by me (1pt. min.). @ -[None done] What testing was considered but not performed or refused? (CT, X-rays, U/S, labs)? Why? @ -[None] What meds were considered but not given or refused? Why? @ -[None] Did you discuss the management of the patient with other professionals (professionals i.e. , PA, ACTIVITIES COORDINATOR, lab, RT, psych nurse, social service coordinator, relationship management lead, teacher, probation and parole officer, mental health case manager)? Give summary @ -[No] Was smoking cessation discussed for >3mins.? @ -[No] Was critical care preformed (if so, how long)? @ -[No] Were there social determinants of health that impacted care today? How? (Homelessness, low income, unemployed, alcoholism, drug addiction, tra nsportation, low edu. Level, literacy, decrease access to med. care, halfway, rehab)? @ -[Alcohol abuse Was there de-escalation of care discussed even if they declined (Discuss DNR or withdrawal of care, Hospice)? DNR status @ -[No] What co-morbidities impacted this encounter? (DM, HTN, Smoking, COPD, CAD, Cancer, CVA, ARF, Chemo, Hep., AIDS, mental health diagnosis, sleep apnea, morbid obesity)? @ -[Alcohol abuse Was patient admitted / discharged? Hospital course, mention meds given and route, prescriptions, significant lab abnormalities, going to OR and other pertinent info. @ -[hospital course] Undiagnosed new problem with uncertain prognosis? @ -[No] Drug Therapy requiring intensive monitoring for toxicity (Heparin, Nitro, Insulin, Cardizem)? @ -[No] Were any procedures done? @ -[No] Diagnosis/symptom? @ -[Acute on chronic dizziness Acute, or Chronic, or Acute on Chronic? @ -[Acute on chronic Uncomplicated (without systemic symptoms) or Complicated (systemic symptoms)? @ -[Uncomplicated Side effects of treatment? @ -[No] Exacerbation, Progression, or Severe Exacerbation? @ -[No] Poses a threat to life or bodily function? How? (Chest pain, [place], [place], pneumonia, PE, COPD, DKA, ARF, appy, cholecystitis, CVA, Diverticulitis, Homicidal, Suicidal, threat to staff... and all critical care pts) @ -[No] All treatments are based on ideal body weight as in ED triage - Lab Data Result diagrams: 11/06/24 23:55 11/06/24 23:55 Lab Results 11/06/24 11/06/24 11/06/24 Range/Units 23:55 23:55 23:55 WBC 8.6 (3.8-10.6) k/uL RBC 4.14 (3.80-5.40) m/uL Hgb 12.2 (11.4-16.0) gm/dL Hct 38.1 (34.0-46.0) % MCV 92.0 (80.0-100.0) fL MCH 29.4 (25.0-35.0) pg MCHC 31.9 (31.0-37.0) g/dL RDW 18.5 H (11.5-15.5) % Plt Count 296 (150-450) k/uL MPV 7.0 Neutrophils % 65 % Lymphocytes % 23 % Monocytes % 6 % Eosinophils % 1 % Basophils % 2 % Neutrophils # 5.6 (1.3-7.7) k/uL Lymphocytes # 2.0 (1.0-4.8) k/uL Monocytes # 0.5 (0-1.0) k/uL Eosinophils # 0.1 (0-0.7) k/uL Basophils # 0.1 (0-0.2) k/uL Hypochromasia Slight Anisocytosis Slight Sodium 145 (137-145) mmol/L Potassium 3.1 L (3.5-5.1) mmol/L Chloride 109 H (98-107) mmol/L Carbon Dioxide 27 (22-30) mmol/L Anion Gap 9 mmol/L BUN 5 L (7-17) mg/dL Creatinine 0.57 (0.52-1.04) mg/dL Est GFR (CKD-EPI)AfAm >90 (>60 ml/min/1.73 sqM) Est GFR (CKD-EPI)NonAf >90 (>60 ml/min/1.73 sqM) Glucose 108 H (74-99) mg/dL Lactic Ac Sepsis Rflx Plasma Lactic Acid [place] 3.0 H* (0.7-2.0) mmol/L Calcium 8.9 (8.4-10.2) mg/dL Total Bilirubin 0.3 (0.2-1.3) mg/dL AST 32 (14-36) U/L ALT 37 H (4-34) U/L Alkaline Phosphatase 113 (38-126) U/L Troponin I (0.000-0.034) ng/mL Total Protein 7.0 (6.3-8.2) g/dL Albumin 4.3 (3.5-5.0) g/dL 11/06/24 11/07/24 11/07/24 Range/Units 23:55 00:44 05:27 WBC (3.8-10.6) k/uL RBC (3.80-5.40) m/uL Hgb (11.4-16.0) gm/dL Hct (34.0-46.0) % MCV (80.0-100.0) fL MCH (25.0-35.0) pg MCHC (31.0-37.0) g/dL RDW (11.5-15.5) % Plt Count (150-450) k/uL MPV Neutrophils % % Lymphocytes % % Monocytes % % Eosinophils % % Basophils % % Neutrophils # (1.3-7.7) k/uL Lymphocytes # (1.0-4.8) k/uL Monocytes # (0-1.0) k/uL Eosinophils # (0-0.7) k/uL Basophils # (0-0.2) k/uL Hypochromasia Anisocytosis Sodium (137-145) mmol/L Potassium (3.5-5.1) mmol/L Chloride (98-107) mmol/L Carbon Dioxide (22-30) mmol/L Anion Gap mmol/L BUN (7-17) mg/dL Creatinine (0.52-1.04) mg/dL Est GFR (CKD-EPI)AfAm (>60 ml/min/1.73 sqM) Est GFR (CKD-EPI)NonAf (>60 ml/min/1.73 sqM) Glucose (74-99) mg/dL Lactic Ac Sepsis Rflx Y Plasma Lactic Acid [place] 3.7 H* (0.7-2.0) mmol/L Calcium (8.4-10.2) mg/dL Total Bilirubin (0.2-1.3) mg/dL AST (14-36) U/L ALT (4-34) U/L Alkaline Phosphatase (38-126) U/L Troponin I 0.016 (0.000-0.034) ng/mL Total Protein (6.3-8.2) g/dL Albumin (3.5-5.0) g/dL 11/07/24 Range/Units 06:18 WBC (3.8-10.6) k/uL RBC (3.80-5.40) m/uL Hgb (11.4-16.0) gm/dL Hct (34.0-46.0) % MCV (80.0-100.0) fL MCH (25.0-35.0) pg MCHC (31.0-37.0) g/dL RDW (11.5-15.5) % Plt Count (150-450) k/uL MPV Neutrophils % % Lymphocytes % % Monocytes % % Eosinophils % % Basophils % % Neutrophils # (1.3-7.7) k/uL Lymphocytes # (1.0-4.8) k/uL Monocytes # (0-1.0) k/uL Eosinophils # (0-0.7) k/uL Basophils # (0-0.2) k/uL Hypochromasia Anisocytosis Sodium (137-145) mmol/L Potassium (3.5-5.1) mmol/L Chloride (98-107) mmol/L Carbon Dioxide (22-30) mmol/L Anion Gap mmol/L BUN (7-17) mg/dL Creatinine (0.52-1.04) mg/dL Est GFR (CKD-EPI)AfAm (>60 ml/min/1.73 sqM) Est GFR (CKD-EPI)NonAf (>60 ml/min/1.73 sqM) Glucose (74-99) mg/dL Lactic Ac Sepsis Rflx Y Plasma Lactic Acid [place] (0.7-2.0) mmol/L Calcium (8.4-10.2) mg/dL Total Bilirubin (0.2-1.3) mg/dL AST (14-36) U/L ALT (4-34) U/L Alkaline Phosphatase (38-126) U/L Troponin I (0.000-0.034) ng/mL Total Protein (6.3-8.2) g/dL Albumin (3.5-5.0) g/dL Disposition Clinical Impression: Alcohol intoxication Disposition: HOME SELF-CARE Condition: Good Instructions (If sedation given, give patient instructions): Alcohol Intoxicati on (DC), Dizziness (ED) Is patient prescribed a controlled substance at d/c from ED?: No Referrals: Miya Johnson MD [Primary Care Provider] - 1-2 days
[2024-11-07 05:54] VITALS: BP 131/107; PULSE 115
[2024-11-07] MEDS: POTASSIUM CHLORIDE ER 20 MEQ TAB.ER PO STA (05:55)
== END 2024-11-07 06:07 | disposition home or self-care (01) ==
LOC: EC 23:22
DX: F10.129 Alcohol abuse with intoxication, unspecified (principal); F17.200 Nicotine dependence, unspecified, uncomplicated; Z86.73 Personal history of transient ischemic attack (TIA), and cerebral infarction without residual deficits; Z88.5 Allergy status to narcotic agent; Z88.7 Allergy status to serum and vaccine; Z88.8 Allergy status to other drugs, medicaments and biological substances; Z91.040 Latex allergy status; Z91.018 Allergy to other foods
CPT/HCPCS: 36415 ×2; 93005; 80053; 83605 ×2; 84484; 85025; 70450; 99284; 96374; 96361; J2060

== ENCOUNTER 2024-11-08 10:16 | Emergency (ER) | payer OTHER ==
[2024-11-08 10:24] VITALS: PULSE 85; RESP 18; TEMP 97.5
[2024-11-08 10:26] VITALS: BP 109/79
[2024-11-08 11:31] LABS: Glucose,Whole Blood 100 mg/dL (70-110)
--- NOTE | 2024-11-08 11:53 | ED ---
SOB HPI - General Source: patient, EMS, RN notes reviewed Mode of arrival: EMS Limitations: no limitations - History of Present Illness MD Complaint: shortness of breath, chest pain Onset/Timin -: hour(s) <Tobias Resendiz - Last Filed: 11/08/24 11:51> <John Olivera - Last Filed: 11/23/24 10:40> - General Chief Complaint: Shortness of Breath Stated Complaint: Pain Time Seen by Provider: 11/08/24 10:31 - History of Present Illness Initial Comments: This is a 64-year-old female with history of AMI, CVA and COPD presenting via EMS for SOB, mid chest pain and back pain x 2 hours. Patient describes the pain as sharp/pressure, radiating to her left arm. Endorses recent MO requiring stents several weeks ago. Endorses use of ibuprofen with minimal relief. Patient states she is also having bilateral hand/arm weakness. (Tobias Resendiz) - Related Data Home Medications Medication Instructions Recorded Confirmed Budesonide/Formoterol Fumarate 2 puff INHALATION RT-HS 07/29/23 09/10/24 [Symbicort 160-4.5 Mcg Inhaler] Multivitamin [Multivitamins Adult 2 tab PO HS 12/04/23 09/10/24 Gummies] Brimonidine Tartrate [Alphagan P 1 drop BOTH EYES BID 02/02/24 09/10/24 0.2% Ophth Soln] Fluticasone Nasal [place] [Flonase 2 spr EA NOSTRIL HS 02/02/24 09/10/24 Nasal [place]] Artificial Tears-Hypromellose 1 drop BOTH EYES TID PRN 03/10/24 09/10/24 [Artificial Tear Drops] Potassium Chloride ER [K-Dur 20] 20 meq PO HS 03/15/24 09/10/24 Cholecalciferol (Vitamin D3) 50 mcg PO HS 05/03/24 09/10/24 [Vitamin D3 (50 Mcg = 2000 Iu)] Ferrous Sulfate [Iron (65 MG 325 mg PO HS 05/03/24 09/10/24 Elemental)] Ipratropium-Albuterol Nebulize 3 ml INHALATION RT-QID PRN 05/24/24 09/10/24 [Duoneb 0.5 mg-3 mg/3 ml Soln] Albuterol Sulfate [Ventolin HFA] 1 - 2 puff INHALATION RT-Q6H PRN 09/10/24 09/10/24 Previous Rx's Medication Instructions Recorded Aspirin EC [Ecotrin Low Dose] 81 mg PO HS #90 tab 05/25/24 Atorvastatin [Lipitor] 80 mg PO HS #90 tab 05/25/24 Isosorbide Mononitrate ER [Imdur] 30 mg PO HS #90 tab 05/25/24 Magnesium Oxide [Mag-Ox] 400 mg PO HS #90 tab 05/25/24 Metoprolol Succinate (ER) [Toprol 50 mg PO HS #90 tab 05/25/24 XL] Ticagrelor [Brilinta] 90 mg PO HS #90 tab 05/25/24 Cephalexin [Keflex] 500 mg PO Q12HR 7 Days #14 cap 09/11/24 Losartan [Cozaar] 25 mg PO DAILY #30 tab 09/11/24 Potassium Chloride ER [K-Dur 20] 20 meq PO BID #10 tab 10/29/24 chlordiazePOXIDE HCl [Librium] 25 mg PO TID 3 Days #9 capsule 11/09/24 LORazepam [Ativan] 2 mg PO TID 3 Days #9 tab 11/10/24 Allergies Allergy/AdvReac Type Severity Reaction Status Date / Time [place] And Derivatives Allergy Rash/Hives Verified 11/20/24 13:21 [[place]] latex Allergy Rash/Hives Verified 11/20/24 13:21 adhesive tape AdvReac Rash/Hives Verified 11/20/24 13:21 amlodipine [From Norvasc] AdvReac Cough Verified 11/20/24 13:21 cinnamon AdvReac Nausea Verified 11/20/24 13:21 clonidine AdvReac "almost Verified 11/20/24 13:21 passed out" gabapentin AdvReac Dizziness Verified 11/20/24 13:21 Influenza Virus Vaccines AdvReac Nausea & Verified 11/20/24 13:21 Vomiting lisinopril AdvReac Cough Verified 11/20/24 13:21 morphine AdvReac Nausea & Verified 11/20/24 13:21 Vomiting sucralfate [From Carafate] AdvReac Abdominal Verified 11/20/24 13:21 Pain tomato AdvReac Diarrhea Verified 11/20/24 13:21 Review of Systems ROS Other: All systems not noted in ROS Statement are negative. <MartínTobias - Last Filed: 11/08/24 11:51> ROS Other: All systems not noted in ROS Statement are negative. <John Olivera - Last Filed: 11/23/24 10:40> ROS Statement: Those systems with pertinent positive or pertinent negative responses have been documented in the HPI. Past Medical History Past Medical History: Asthma, Coronary Artery Disease (CAD), COPD, CVA/TIA, Eye Disorder, Hypertension, Liver Disease, Myocardial Infarction ([place]), Seizure Disorder, Vascular Disorder Additional Past Medical History / Comment(s): Pt recently admitted to [facility] for diarrhea, ETOH abuse. 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 Past Psychological History: Anxiety, Depression Smoking Status: Current every day smoker Past Alcohol Use History: Abuse, Daily, Heavy Past Drug Use History: Marijuana - Past Family History Mother Family Medical History: Cancer, Congestive Heart Failure (CHF), Coronary Artery Disease (CAD), Hyperlipidemia Additional Family Medical History / Comment(s): Mother at age 85 from lung cancer. Father Family Medical History: Cancer, COPD Additional Family Medical History / Comment(s): Father at age 63 from lung cancer. Brother(s) Additional Family Medical History / Comment(s): Patient has a total of 7 siblings. 5 are alive without any major medical problems she is aware of. 2 siblings have one from alcohol abuse and 1. Coronary artery disease. Daughter(s) Family Medical History: No Reported History Additional Family Medical History / Comment(s): Patient has one daughter with no major medical problems. <Tobias Resendiz - Last Filed: 11/08/24 11:51> General Exam Limitations: no limitations <Tobias Resendiz - Last Filed: 11/08/24 11:51> - General Exam Comments Initial Comments: Visual Physical Exam Vital signs reviewed General: Well-appearing, nontoxic, no acute distress. Patient seated in wheelchair Head: Normocephalic, atraumatic Eyes: PERRLA, EOMI ENT: Airway patent Chest: Nonlabored breathing Skin: No visual rash, normal skin tone Neuro: Alert and oriented 3 Musculoskeletal: No gross abnormalities (Tobias Resendiz) Course Vital Signs 11/08/24 10:20 Temperature 97.5 F L Pulse Rate 85 Respiratory 18 Rate Blood Pressure 109/79 O2 Sat by Pulse 99 Oximetry Medical Decision Making <Tobias Resendiz - Last Filed: 11/08/24 11:51> - Medical Decision Making I completed the quick note portion of this chart signed BRISEIDA Maxwell (Tobias Resendiz) - Lab Data Lab Results 11/08/24 Range/Units 11:20 POC Glucose (mg/dL) 100 (70-110) mg/dL POC Glu Spinner Iron ID Sebastián Cleary Disposition <Tobias Resendiz - Last Filed: 11/08/24 11:51> <John Olivera - Last Filed: 11/23/24 10:40> Clinical Impression: Chest pain, COPD (chronic obstructive pulmonary disease) Disposition: LEFT AGAINST MEDICAL ADVICE Referrals: Miya Johnson MD [Primary Care Provider] - 1-2 days
--- NOTE | 2024-11-08 12:34 | XR ---
EXAMINATION TYPE: XR chest 2V DATE OF EXAM: 11/08/2024 12:06 PM COMPARISON: Chest radiographs from 10/18/2024 CLINICAL INDICATION: Female, 64 years old with history of difficulty breathing; TECHNIQUE: XR chest 2V Frontal and lateral views of the chest. FINDINGS: Lungs/Pleura: There is no evidence of pleural effusion, focal consolidation, or pneumothorax. Pulmonary vascularity: Unremarkable. Heart/mediastinum: Cardiomediastinal silhouette is unremarkable. Musculoskeletal: No acute osseous pathology. IMPRESSION: No acute cardiopulmonary disease/process. [facility], , 11/08/2024 12:32 PM
== END 2024-11-08 13:01 | disposition left against medical advice (07) ==
LOC: EC 10:16
DX: R07.9 Chest pain, unspecified (principal); J44.9 Chronic obstructive pulmonary disease, unspecified; Z88.6 Allergy status to analgesic agent; Z88.1 Allergy status to other antibiotic agents; Z88.8 Allergy status to other drugs, medicaments and biological substances; Z88.5 Allergy status to narcotic agent; Z88.7 Allergy status to serum and vaccine; Z91.040 Latex allergy status; Z91.018 Allergy to other foods; Z91.048 Other nonmedicinal substance allergy status
CPT/HCPCS: 36415; 71046; 93005; 99285

== ENCOUNTER 2024-11-08 14:49 | Emergency (ER) | payer OTHER ==
[2024-11-08 16:07] VITALS: BP 138/105; PULSE 100; RESP 18; TEMP 97.7
--- NOTE | 2024-11-08 16:43 | ED ---
Back Pain HPI - General Source: patient, RN notes reviewed Limitations: no limitations - History of Present Illness MD Complaint: fall Onset/Timin -: days(s) <MartínTobias - Last Filed: 11/08/24 16:41> <ScarletAdrian - Last Filed: 11/09/24 01:58> - General Source: patient, old records reviewed Limitations: no limitations - History of Present Illness MD Complaint: back injury, fall -: hour(s) Similar Symptoms Previously: Yes Place: home Severity: moderate Severity scale (1-10): 4 Quality: sharp Consistency: constant Improves With: none Worsens With: none Context: fall Associated Symptoms: denies other symptoms <John Motley - Last Filed: 11/12/24 17:27> - General Chief Complaint: Back Pain/Injury Stated Complaint: Pain Time Seen by Provider: 11/08/24 15:05 - History of Present Illness Initial Comments: Quick note: This is a frequently seen 64-year-old female presenting with nausea x 4 days. Patient states she is "not feeling right" and "something is wrong". Endorses a fall several days ago with ongoing right hip pain. Patient also mentions swollen feet (Tobias Resendiz) This is a 64 female well-known to this ER multiple ER visits just today as well as in the ER again last night states she had a fall with back pain and nausea vomiting (John Motley) - Related Data Home Medications Medication Instructions Recorded Confirmed Budesonide/Formoterol Fumarate 2 puff INHALATION RT-HS 07/29/23 09/10/24 [Symbicort 160-4.5 Mcg Inhaler] Multivitamin [Multivitamins Adult 2 tab PO HS 12/04/23 09/10/24 Gummies] Brimonidine Tartrate [Alphagan P 1 drop BOTH EYES BID 02/02/24 09/10/24 0.2% Ophth Soln] Fluticasone Nasal [place] [Flonase 2 spr EA NOSTRIL HS 02/02/24 09/10/24 Nasal [place]] Artificial Tears-Hypromellose 1 drop BOTH EYES TID PRN 03/10/24 09/10/24 [Artificial Tear Drops] Potassium Chloride ER [K-Dur 20] 20 meq PO HS 03/15/24 09/10/24 Cholecalciferol (Vitamin D3) 50 mcg PO HS 05/03/24 09/10/24 [Vitamin D3 (50 Mcg = 2000 Iu)] Ferrous Sulfate [Iron (65 MG 325 mg PO HS 05/03/24 09/10/24 Elemental)] Ipratropium-Albuterol Nebulize 3 ml INHALATION RT-QID PRN 05/24/24 09/10/24 [Duoneb 0.5 mg-3 mg/3 ml Soln] Albuterol Sulfate [Ventolin HFA] 1 - 2 puff INHALATION RT-Q6H PRN 09/10/24 09/10/24 Previous Rx's Medication Instructions Recorded Aspirin EC [Ecotrin Low Dose] 81 mg PO HS #90 tab 05/25/24 Atorvastatin [Lipitor] 80 mg PO HS #90 tab 05/25/24 Isosorbide Mononitrate ER [Imdur] 30 mg PO HS #90 tab 05/25/24 Magnesium Oxide [Mag-Ox] 400 mg PO HS #90 tab 05/25/24 Metoprolol Succinate (ER) [Toprol 50 mg PO HS #90 tab 05/25/24 XL] Ticagrelor [Brilinta] 90 mg PO HS #90 tab 05/25/24 Cephalexin [Keflex] 500 mg PO Q12HR 7 Days #14 cap 09/11/24 Losartan [Cozaar] 25 mg PO DAILY #30 tab 09/11/24 Potassium Chloride ER [K-Dur 20] 20 meq PO BID #10 tab 10/29/24 chlordiazePOXIDE HCl [Librium] 25 mg PO TID 3 Days #9 capsule 11/09/24 LORazepam [Ativan] 2 mg PO TID 3 Days #9 tab 11/10/24 Allergies Allergy/AdvReac Type Severity Reaction Status Date / Time Kemper And Derivatives Allergy Rash/Hives Verified 11/10/24 14:54 [Kemper] latex Allergy Rash/Hives Verified 11/10/24 14:54 adhesive tape AdvReac Rash/Hives Verified 11/10/24 14:54 amlodipine [From Norvasc] AdvReac Cough Verified 11/10/24 14:54 cinnamon AdvReac Nausea Verified 11/10/24 14:54 clonidine AdvReac "almost Verified 11/10/24 14:54 passed out" gabapentin AdvReac Dizziness Verified 11/10/24 14:54 Influenza Virus Vaccines AdvReac Nausea & Verified 11/10/24 14:54 Vomiting lisinopril AdvReac Cough Verified 11/10/24 14:54 morphine AdvReac Nausea & Verified 11/10/24 14:54 Vomiting sucralfate [From Carafate] AdvReac Abdominal Verified 11/10/24 14:54 Pain tomato AdvReac Diarrhea Verified 11/10/24 14:54 Review of Systems ROS Other: All systems not noted in ROS Statement are negative. <Tobias Resendiz - Last Filed: 11/08/24 16:41> ROS Other: All systems not noted in ROS Statement are negative. <Adrian Novak - Last Filed: 11/09/24 01:58> ROS Other: All systems not noted in ROS Statement are negative. <John Motley - Last Filed: 11/12/24 17:27> ROS Statement: Those systems with pertinent positive or pertinent negative responses have been documented in the HPI. Past Medical History Past Medical History: Asthma, Coronary Artery Disease (CAD), COPD, CVA/TIA, Eye Disorder, Hypertension, Liver Disease, Myocardial Infarction ([place]), Seizure Disorder, Vascular Disorder Additional Past Medical History / Comment(s): Pt recently admitted to [facility] for diarrhea, ETOH abuse. 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 Past Psychological History: Anxiety, Depression Smoking Status: Current every day smoker Past Alcohol Use History: Abuse, Daily, Heavy Past Drug Use History: Marijuana - Past Family History Mother Family Medical History: Cancer, Congestive Heart Failure (CHF), Coronary Artery Disease (CAD), Hyperlipidemia Additional Family Medical History / Comment(s): Mother at age 85 from lung cancer. Father Family Medical History: Cancer, COPD Additional Family Medical History / Comment(s): Father at age 63 from lung cancer. Brother(s) Additional Family Medical History / Comment(s): Patient has a total of 7 siblings. 5 are alive without any major medical problems she is aware of. 2 siblings have one from alcohol abuse and 1. Coronary artery disease. Daughter(s) Family Medical History: No Reported History Additional Family Medical History / Comment(s): Patient has one daughter with no major medical problems. <Tobias Resendiz - Last Filed: 11/08/24 16:41> General Exam Limitations: no limitations <Tobias Resendiz - Last Filed: 11/08/24 16:41> General appearance: alert, in no apparent distress, appears intoxicated Head exam: Present: atraumatic, normocephalic, normal inspection Eye exam: Present: normal appearance, PERRL, EOMI. Absent: scleral icterus, conjunctival injection, periorbital swelling ENT exam: Present: normal exam, mucous membranes moist Neck exam: Present: normal inspection. Absent: tenderness, meningismus, lymphadenopathy Respiratory exam: Present: normal lung sounds bilaterally. Absent: respiratory distress, wheezes, rales, rhonchi, stridor Cardiovascular Exam: Present: regular rate, normal rhythm, normal heart sounds. Absent: systolic murmur, diastolic murmur, rubs, gallop, clicks GI/Abdominal exam: Present: soft, normal bowel sounds. Absent: distended, te nderness, guarding, rebound, rigid Extremities exam: Present: normal inspection, full ROM, normal capillary refill. Absent: tenderness, pedal edema, joint swelling, calf tenderness Back exam: Present: normal inspection Neurological exam: Present: alert, oriented X3, CN II-XII intact Psychiatric exam: Present: normal affect, normal mood Skin exam: Present: warm, dry, intact, normal color. Absent: rash <John Motley - Last Filed: 11/12/24 17:27> - General Exam Comments Initial Comments: Visual Physical Exam Vital signs reviewed General: Well-appearing, nontoxic, no acute distress. Patient seated in wheelchair Head: Normocephalic, atraumatic Eyes: PERRLA, EOMI ENT: Airway patent Chest: Nonlabored breathing Skin: No visual rash, normal skin tone Neuro: Alert and oriented 3 Musculoskeletal: No gross abnormalities (Tobias Resendiz) Course <John Motley - Last Filed: 11/12/24 17:27> Vital Signs 11/08/24 16:02 Temperature 97.7 F Pulse Rate 100 Respiratory 18 Rate Blood Pressure 138/105 O2 Sat by Pulse 100 Oximetry - Reevaluation(s) Reevaluation #1: 11/08/24 21:31 Medical records reviewed (Jonh Motley) Reevaluation #2: 11/08/24 21:31 Patient's pain is improved (John Motley) Reevaluation #3: Patient informed of results questions answered (John Motley) Reevaluation #4: Was pt. sent in by a medical professional or institution (, PA, SCHOOL AGE LEAD TEACHER, urgent care, hospital, or long term...) When possible be specific @ -no Did you speak to anyone other than the patient for history (EMS, parent, family, police, friend...)? What history was obtained from this source @ -no Did you review nursing and triage notes (agree or disagree)? Why? @ -agree Are old charts reviewed (outside hosp., previous admission, EMS record, old EKG, old radiological studies, urgent care reports/EKG's, long term records)? Report findings @ -yes Differential Diagnosis (chest pain, altered mental status, abdominal pain women, abdominal pain men, vaginal bleeding, weakness, fever, dyspnea, syncope, he adache, dizziness, GI bleed, back pain, seizure, CVA, palpatations, mental health, musculoskeletal)? @ -prior EKG interpreted by me (3pts min.). @ -no X-rays interpreted by me (1pt min.). @ -yes negative for acute disease CT interpreted by me (1pt min.). @ -no U/S interpreted by me (1pt. min.). @ -no What testing was considered but not performed or refused? (CT, X-rays, U/S, labs)? Why? @ -none What meds were considered but not given or refused? Why? @ -none Did you discuss the management of the patient with other professionals (professionals i.e. , PA, SCHOOL AGE LEAD TEACHER, lab, RT, psych nurse, manager social responsibility, barrel plater, teacher, registration officer, case aide)? Give summary @ -no Was smoking cessation discussed for >3mins.? @ -no Was critical care preformed (if so, how long)? @ -no Were there social determinants of health that impacted care today? How? (Homelessness, low income, unemployed, alcoholism, drug addiction, transportation, low edu. Level, literacy, decrease access to med. care, half-way, rehab)? @ -none Was there de-escalation of care discussed even if they declined (Discuss DNR or withdrawal of care, Hospice)? DNR status @ -no What co-morbidities impacted this encounter? (DM, HTN, Smoking, COPD, CAD, Cancer, CVA, ARF, Chemo, Hep., AIDS, mental health diagnosis, sleep apnea, mo rbid obesity)? @ -none Was patient admitted / discharged? Hospital course, mention meds given and r oute, prescriptions, significant lab abnormalities, going to OR and other pertinent info. @ - 64 female to the ER for evaluation patient is well-known to this emergency department coming in for evaluation of multiple complaints, intoxication, patient has no acute findings here in the ER lab testing is normal patient can be discharged home Discharge Undiagnosed new problem with uncertain prognosis? @ -no Drug Therapy requiring intensive monitoring for toxicity (Heparin, Nitro, Insulin, Cardizem)? @ -no Were any procedures done? @ -no Diagnosis/symptom? @ -Alcohol intoxication, hip pain back pain Acute, or Chronic, or Acute on Chronic? @ -Acute Uncomplicated (without systemic symptoms) or Complicated (systemic symptoms)? @ -Complicated Side effects of treatment? @ -no Exacerbation, Progression, or Severe Exacerbation? @ -exacerbation Poses a threat to life or bodily function? How? (Chest pain, [place], [place], pneumonia, PE, COPD, DKA, ARF, appy, cholecystitis, CVA, Diverticulitis, Homicidal, Suicidal, threat to staff... and all critical care pts) @ -yes with severe alcoholism (John Motley) Reevaluation #5: Differential Back Pain: Strain, zoster, cauda equina syndrome, epidural abscess, vertebral osteomyelitis, discitis, fracture, subluxation, disc herniation, DJD, spinal stenosis, dissection, AAA, pancreatitis, peptic ulcer disease, pyelonephritis, kidney stone, this is not meant to be an all-inclusive list. (John Motley) Medical Decision Making <Tobias Resendiz - Last Filed: 11/08/24 16:41> - Lab Data Result diagrams: 11/08/24 22:52 11/08/24 22:52 <Adrian Novak - Last Filed: 11/09/24 01:58> - Lab Data Result diagrams: 11/08/24 22:52 11/08/24 22:52 - Radiology Data Radiology results: report reviewed (X-ray hip and lumbar spine negative for traumatic injury or acute disease), image reviewed <John Motley - Last Filed: 11/12/24 17:27> - Medical Decision Making I completed the quick note portion of this chart signed BRISEIDA Maxwell (Tobias Resendiz) 64 female to the ER for evaluation patient is well-known to this emergency department coming in for evaluation of multiple complaints, intoxication, patient has no acute findings here in the ER lab testing is normal patient can be discharged home (John Motley) - Lab Data Lab Results 11/08/24 11/08/24 Range/Units 22:52 22:52 WBC 8.7 (3.8-10.6) k/uL RBC 4.27 (3.80-5.40) m/uL Hgb 12.7 (11.4-16.0) gm/dL Hct 38.8 (34.0-46.0) % MCV 90.9 (80.0-100.0) fL MCH 29.7 (25.0-35.0) pg MCHC 32.6 (31.0-37.0) g/dL RDW 18.6 H (11.5-15.5) % Plt Count 317 (150-450) k/uL MPV 6.9 Neutrophils % 73 % Lymphocytes % 18 % Monocytes % 5 % Eosinophils % 0 % Basophils % 2 % Neutrophils # 6.3 (1.3-7.7) k/uL Lymphocytes # 1.6 (1.0-4.8) k/uL Monocytes # 0.4 (0-1.0) k/uL Eosinophils # 0.0 (0-0.7) k/uL Basophils # 0.1 (0-0.2) k/uL Hypochromasia Slight Anisocytosis Slight Sodium 138 (137-145) mmol/L Potassium 4.3 (3.5-5.1) mmol/L Chloride 103 (98-107) mmol/L Carbon Dioxide 19 L (22-30) mmol/L Anion Gap 16 mmol/L BUN 8 (7-17) mg/dL Creatinine 0.55 (0.52-1.04) mg/dL Est GFR (CKD-EPI)AfAm >90 (>60 ml/min/1.73 sqM) Est GFR (CKD-EPI)NonAf >90 (>60 ml/min/1.73 sqM) Glucose 109 H (74-99) mg/dL Calcium 9.1 (8.4-10.2) mg/dL Phosphorus 3.6 (2.5-4.5) mg/dL Magnesium 1.9 (1.6-2.3) mg/dL Total Bilirubin 0.5 (0.2-1.3) mg/dL AST 45 H (14-36) U/L ALT 32 (4-34) U/L Alkaline Phosphatase 135 H (38-126) U/L Total Protein 6.7 (6.3-8.2) g/dL Albumin 4.2 (3.5-5.0) g/dL Lipase 52 (23-300) U/L Serum Alcohol 30 mg/dL Disposition <Tobias Resendiz - Last Filed: 11/08/24 16:41> Is patient prescribed a controlled substance at d/c from ED?: Yes <Adrian Novak - Last Filed: 11/09/24 01:58> Is patient prescribed a controlled substance at d/c from ED?: Yes Time of Disposition: 04:00 <John Motley - Last Filed: 11/12/24 17:27> Clinical Impression: Fall, Alcohol intoxication, Back pain Disposition: HOME SELF-CARE Condition: Good Instructions (If sedation given, give patient instructions): Fall Prevention for Older Adults (ED), Alcohol Intoxication (ED) Prescriptions: chlordiazePOXIDE HCl [Librium] 25 mg PO TID 3 Days #9 capsule Referrals: Miya Johnson MD [Primary Care Provider] - 1-2 days
[2024-11-08] MEDS ORDERED: LORazepam 0.5 MG TAB PO PRN (20:36)
[2024-11-08] MEDS ORDERED: LORazepam 2 MG/ML INJ IV PRN ×2 (20:36)
[2024-11-08] MEDS ORDERED: LORazepam 1 MG TAB PO PRN ×3 (20:36)
[2024-11-08] MEDS ORDERED: ONDANSETRON 4 MG/2 ML VIAL IVP PRN (20:37)
[2024-11-08] MEDS: ONDANSETRON 4 MG/2 ML VIAL IVP STA ×2 (22:22→22:57)
[2024-11-08 23:20] LABS: Anisocytosis Slight; Basophils # (A) 0.1 k/uL (0-0.2); Basophils % (A) 2 %; Eosinophils % (A) 0 %; HCT 38.8 % (34.0-46.0); HGB 12.7 gm/dL (11.4-16.0); Hypochromasia Slight; Lymphocytes # (A) 1.6 k/uL (1.0-4.8); Lymphocytes % (A) 18 %; MCH 29.7 pg (25.0-35.0); MCHC 32.6 g/dL (31.0-37.0); MCV 90.9 fL (80.0-100.0); Mean Platelet Volume 6.9; Monocytes # (A) 0.4 k/uL (0-1.0); Monocytes % (A) 5 %; Neutrophils # (A) 6.3 k/uL (1.3-7.7); Neutrophils % (A) 73 %; Platelet Count 317 k/uL (150-450); RBC 4.27 m/uL (3.80-5.40); RDW 18.6 % (11.5-15.5); WBC 8.7 k/uL (3.8-10.6)
[2024-11-08 23:23] LABS: ALT 32 U/L (4-34); AST 45 U/L (14-36); African American GFR (CKD) >90 (>60 ml/min/1.73 sqM); Albumin 4.2 g/dL (3.5-5.0); Alcohol 30 mg/dL; Alkaline Phosphatase 135 U/L (38-126); Anion Gap 16 mmol/L; Blood Urea Nitrogen 8 mg/dL (7-17); Calcium 9.1 mg/dL (8.4-10.2); Carbon Dioxide 19 mmol/L (22-30); Chloride 103 mmol/L (98-107); Glucose 109 mg/dL (74-99); Lipase 52 U/L (23-300); Magnesium 1.9 mg/dL (1.6-2.3); Non-African American GFR(CKD) >90 (>60 ml/min/1.73 sqM); Phosphorus 3.6 mg/dL (2.5-4.5); Potassium 4.3 mmol/L (3.5-5.1); Sodium 138 mmol/L (137-145); Total Bilirubin 0.5 mg/dL (0.2-1.3); Total Protein 6.7 g/dL (6.3-8.2)
[2024-11-09] MEDS: LORazepam 2 MG/ML INJ IV PRN (00:50)
[2024-11-09] MEDS: SODIUM CHLORIDE 0.9% 1,000 ML IV STA (00:50)
[2024-11-09] MEDS: SODIUM CHLORIDE 0.9% 500 ML 500 ML IV STA (00:51)
[2024-11-09] MEDS: HYDROmorphone 0.5 MG/0.5 ML SYRINGE IVP STA (00:51)
[2024-11-09] MEDS ORDERED: IBUPROFEN 600 MG TAB PO STA (01:57)
[2024-11-09] MEDS: LORazepam 2 MG/ML INJ IV STA (02:40)
--- NOTE | 2024-11-09 03:08 | XR ---
EXAM: XR Right Hip 2 views CLINICAL HISTORY: Fall with ongoing right hip pain TECHNIQUE: Frontal and lateral views of the right hip COMPARISON: No relevant prior studies available. FINDINGS: Bones/joints: Osteopenia. No fracture or dislocation Soft tissues: Unremarkable. Vasculature: Peripheral vascular calcifications. IMPRESSION: No fracture
--- NOTE | 2024-11-09 03:11 | XR ---
EXAM: XR Lumbosacral Spine, 2 or 3 Views CLINICAL HISTORY: Pain throughout lower back and right hip after fall TECHNIQUE: Frontal , cone-down lateral and lateral views of the lumbar spine and sacrum. COMPARISON: 09/22/24 FINDINGS: Vertebrae: Mild anterior wedge compression defect at L1. Moderate anterior wedge compression defect at L4. These are unchanged. Normal alignment. Sacrum/coccyx: Unremarkable as visualized. No fracture. Disc spaces: Vacuum disc phenomenon of lower lumbar spine is new or more prominent. Soft tissues: Cholecystectomy clips. Paravertebral soft tissues appear normal. Vasculature: Extensive aortic calcifications. IMPRESSION: No subluxation or acute fracture.
[2024-11-09] MEDS ORDERED: FOLIC ACID 1 MG TAB PO SCH (09:00)
[2024-11-09] MEDS ORDERED: MULTIVITAMINS, THERA 1 EACH TAB PO SCH (09:00)
== END 2024-11-09 05:16 | disposition home or self-care (01) ==
LOC: EC 14:49
DX: F10.129 Alcohol abuse with intoxication, unspecified (principal); G89.29 Other chronic pain; M54.9 Dorsalgia, unspecified; F17.200 Nicotine dependence, unspecified, uncomplicated; Z88.5 Allergy status to narcotic agent; Z88.7 Allergy status to serum and vaccine; Z88.8 Allergy status to other drugs, medicaments and biological substances; Z91.040 Latex allergy status; Z86.73 Personal history of transient ischemic attack (TIA), and cerebral infarction without residual deficits; W19.XXXA Unspecified fall, initial encounter; Y90.1 Blood alcohol level of 20-39 mg/100 ml
CPT/HCPCS: 36415; 80053; 83690; 83735; 84100; 85025; 72100; 73502; 99284; 96374; 96375; 96376; 96361; G0480; J2060; J2405; J1171; 80320

== ENCOUNTER 2024-11-10 05:48 | Emergency (ER) | payer OTHER ==
[2024-11-10 05:58] VITALS: BP 98/67; PULSE 83; RESP 18; TEMP 97.5
--- NOTE | 2024-11-10 06:30 | ED ---
General Adult HPI - General Source: patient, RN notes reviewed, old records reviewed Mode of arrival: EMS <RonitAnkur Padmini - Last Filed: 11/10/24 06:28> - General Source: patient, RN notes reviewed, old records reviewed Mode of arrival: EMS - History of Present Illness -: days(s) Radiation: non-radiation Consistency: constant Improves with: none Worsens with: none Associated Symptoms: confusion, loss of appetite, nausea/vomiting, weakness Treatments Prior to Arrival: none <John Motley - Last Filed: 11/10/24 09:23> - General Chief complaint: Alcohol Stated complaint: ETOH - History of Present Illness Initial comments: 64-year-old female presenting with alcohol intoxication. Patient well-known to this emergency department. She admits to heavy alcohol consumption prior to arrival. Patient is significantly intoxicated upon arrival. She had complained of some dyspnea. She denies cough or fever. Denies lower extremity pain or swelling. (Ankur Cottrell) This is a 64-year-old female well-known to the ER with alcohol intoxication with some shortness of breath and chest pain, patient admits to severe anxiety (John Motley) - Related Data Home Medications Medication Instructions Recorded Confirmed Budesonide/Formoterol Fumarate 2 puff INHALATION RT-HS 07/29/23 09/10/24 [Symbicort 160-4.5 Mcg Inhaler] Multivitamin [Multivitamins Adult 2 tab PO HS 12/04/23 09/10/24 Gummies] Brimonidine Tartrate [Alphagan P 1 drop BOTH EYES BID 02/02/24 09/10/24 0.2% Ophth Soln] Fluticasone Nasal [place] [Flonase 2 spr EA NOSTRIL HS 02/02/24 09/10/24 Nasal [place]] Artificial Tears-Hypromellose 1 drop BOTH EYES TID PRN 03/10/24 09/10/24 [Artificial Tear Drops] Potassium Chloride ER [K-Dur 20] 20 meq PO HS 03/15/24 09/10/24 Cholecalciferol (Vitamin D3) 50 mcg PO HS 05/03/24 09/10/24 [Vitamin D3 (50 Mcg = 2000 Iu)] Ferrous Sulfate [Iron (65 MG 325 mg PO HS 05/03/24 09/10/24 Elemental)] Ipratropium-Albuterol Nebulize 3 ml INHALATION RT-QID PRN 05/24/24 09/10/24 [Duoneb 0.5 mg-3 mg/3 ml Soln] Albuterol Sulfate [Ventolin HFA] 1 - 2 puff INHALATION RT-Q6H PRN 09/10/24 09/10/24 Previous Rx's Medication Instructions Recorded Aspirin EC [Ecotrin Low Dose] 81 mg PO HS #90 tab 05/25/24 Atorvastatin [Lipitor] 80 mg PO HS #90 tab 05/25/24 Isosorbide Mononitrate ER [Imdur] 30 mg PO HS #90 tab 05/25/24 Magnesium Oxide [Mag-Ox] 400 mg PO HS #90 tab 05/25/24 Metoprolol Succinate (ER) [Toprol 50 mg PO HS #90 tab 05/25/24 XL] Ticagrelor [Brilinta] 90 mg PO HS #90 tab 05/25/24 Cephalexin [Keflex] 500 mg PO Q12HR 7 Days #14 cap 09/11/24 Losartan [Cozaar] 25 mg PO DAILY #30 tab 09/11/24 Potassium Chloride ER [K-Dur 20] 20 meq PO BID #10 tab 10/29/24 chlordiazePOXIDE HCl [Librium] 25 mg PO TID 3 Days #9 capsule 11/09/24 LORazepam [Ativan] 2 mg PO TID 3 Days #9 tab 11/10/24 Allergies Allergy/AdvReac Type Severity Reaction Status Date / Time [place] And Derivatives Allergy Rash/Hives Verified 11/08/24 10:24 [[place]] latex Allergy Rash/Hives Verified 11/08/24 10:24 adhesive tape AdvReac Rash/Hives Verified 11/08/24 10:24 amlodipine [From Norvasc] AdvReac Cough Verified 11/08/24 10:24 cinnamon AdvReac Nausea Verified 11/08/24 10:24 clonidine AdvReac "almost Verified 11/08/24 10:24 passed out" gabapentin AdvReac Dizziness Verified 11/08/24 10:24 Influenza Virus Vaccines AdvReac Nausea & Verified 11/08/24 10:24 Vomiting lisinopril AdvReac Cough Verified 11/08/24 10:24 morphine AdvReac Nausea & Verified 11/08/24 10:24 Vomiting sucralfate [From Carafate] AdvReac Abdominal Verified 11/08/24 10:24 Pain tomato AdvReac Diarrhea Verified 11/08/24 10:24 Review of Systems ROS Other: All systems not noted in ROS Statement are negative. <Ankur Cottrell Padmini - Last Filed: 11/10/24 06:28> ROS Other: All systems not noted in ROS Statement are negative. <John Motley - Last Filed: 11/10/24 09:23> ROS Statement: Those systems with pertinent positive or pertinent negative responses have been documented in the HPI. Past Medical History Past Medical History: Asthma, Coronary Artery Disease (CAD), COPD, CVA/TIA, Eye Disorder, Hypertension, Liver Disease, Myocardial Infarction (GA), Seizure Disorder, Vascular Disorder Additional Past Medical History / Comment(s): Pt recently admitted to [facility] for diarrhea, ETOH abuse. 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 Past Psychological History: Anxiety, Depression Smoking Status: Current every day smoker Past Alcohol Use History: Abuse, Daily, Heavy Past Drug Use History: Marijuana - Past Family History Mother Family Medical History: Cancer, Congestive Heart Failure (CHF), Coronary Artery Disease (CAD), Hyperlipidemia Additional Family Medical History / Comment(s): Mother at age 85 from lung cancer. Father Family Medical History: Cancer, COPD Additional Family Medical History / Comment(s): Father at age 63 from lung cancer. Brother(s) Additional Family Medical History / Comment(s): Patient has a total of 7 siblings. 5 are alive without any major medical problems she is aware of. 2 siblings have one from alcohol abuse and 1. Coronary artery disease. Daughter(s) Family Medical History: No Reported History Additional Family Medical History / Comment(s): Patient has one daughter with no major medical problems. <Ankur Cottrell N - Last Filed: 11/10/24 06:28> General Exam General appearance: alert, appears intoxicated Head exam: Present: normocephalic Eye exam: Present: normal appearance, PERRL Respiratory exam: Absent: respiratory distress Cardiovascular Exam: Present: regular rate, normal rhythm Extremities exam: Present: pedal edema Neurological exam: Present: alert Skin exam: Present: warm, dry <Ankur Cottrell Padmini - Last Filed: 11/10/24 06:28> General appearance: appears intoxicated, anxious Head exam: Present: atraumatic, normocephalic, normal inspection Eye exam: Present: normal appearance, PERRL, EOMI. Absent: scleral icterus, conjunctival injection, periorbital swelling ENT exam: Present: normal exam, mucous membranes moist Neck exam: Present: normal inspection. Absent: tenderness, meningismus, lymphadenopathy Respiratory exam: Present: normal lung sounds bilaterally. Absent: respiratory distress, wheezes, rales, rhonchi, stridor Cardiovascular Exam: Present: regular rate, normal rhythm, normal heart sounds. Absent: systolic murmur, diastolic murmur, rubs, gallop, clicks GI/Abdominal exam: Present: soft, normal bowel sounds. Absent: distended, tenderness, guarding, rebound, rigid Extremities exam: Present: normal inspection, full ROM, normal capillary refill. Absent: tenderness, pedal edema, joint swelling, calf tenderness Back exam: Present: normal inspection Neurological exam: Present: alert, oriented X3, CN II-XII intact Psychiatric exam: Present: normal affect, normal mood Skin exam: Present: warm, dry, intact, normal color. Absent: rash <John Motley - Last Filed: 11/10/24 09:23> Course <John Motley - Last Filed: 11/10/24 09:23> Vital Signs 11/10/24 05:55 Temperature 97.5 F L Pulse Rate 83 Respiratory 18 Rate Blood Pressure 98/67 O2 Sat by Pulse 96 Oximetry - Reevaluation(s) Reevaluation #1: 11/10/24 09:22 Medical records reviewed (John Motley) Reevaluation #2: 11/10/24 09:22 Patient symptoms improved (John Motley) Reevaluation #3: 11/10/24 09:22 Patient informed of results questions answered (John Motley) Reevaluation #4: Was pt. sent in by a medical professional or institution (YESSY Lloyd, CAPTAIN WAITER, urgent care, hospital, or usp...) When possible be specific @ -no Did you speak to anyone other than the patient for history (EMS, parent, family, police, friend...)? What history was obtained from this source @ -no Did you review nursing and triage notes (agree or disagree)? Why? @ -agree Are old charts reviewed (outside hosp., previous admission, EMS record, old EKG, old radiological studies, urgent care reports/EKG's, usp records)? Report findings @ -yes Differential Diagnosis (chest pain, altered mental status, abdominal pain women, abdominal pain men, vaginal bleeding, weakness, fever, dyspnea, syncope, headache, dizziness, GI bleed, back pain, seizure, CVA, palpatations, mental health, musculoskeletal)? @ -prior EKG interpreted by me (3pts min.). @ -yes X-rays interpreted by me (1pt min.). @ -yes negative for acute disease CT interpreted by me (1pt min.). @ -no U/S interpreted by me (1pt. min.). @ -no What testing was considered but not performed or refused? (CT, X-rays, U/S, labs)? Why? @ -none What meds were considered but not given or refused? Why? @ -none Did you discuss the management of the patient with other professionals (professionals i.e. YESSY Lloyd, CAPTAIN WAITER, lab, RT, psych nurse, social and human services assistant, gravel roofer, teacher, chief human resources officer, business case analyst)? Give summary @ -no Was smoking cessation discussed for >3mins.? @ -no Was critical care preformed (if so, how long)? @ -no Were there social determinants of health that impacted care today? How? (Homelessness, low income, unemployed, alcoholism, drug addiction, transportation, low edu. Level, literacy, decrease access to med. care, alf, rehab)? @ -none Was there de-escalation of care discussed even if they declined (Discuss DNR or withdrawal of care, Hospice)? DNR status @ -no What co-morbidities impacted this encounter? (DM, HTN, Smoking, COPD, CAD, Cancer, CVA, ARF, Chemo, Hep., AIDS, mental health diagnosis, sleep apnea, morbid obesity)? @ -none Was patient admitted / discharged? Hospital course, mention meds given and route, prescriptions, significant lab abnormalities, going to OR and other pertinent info. @ - Undiagnosed new problem with uncertain prognosis? @ -no Drug Therapy requiring intensive monitoring for toxicity (Heparin, Nitro, Insulin, Cardizem)? @ -no Were any procedures done? @ -no Diagnosis/symptom? @ - Acute, or Chronic, or Acute on Chronic? @ -Acute Uncomplicated (without systemic symptoms) or Complicated (systemic symptoms)? @ -Complicated Side effects of treatment? @ -no Exacerbation, Progression, or Severe Exacerbation? @ -exacerbation Poses a threat to life or bodily function? How? (Chest pain, USA, GA, pneumonia, PE, COPD, DKA, ARF, appy, cholecystitis, CVA, Diverticulitis, Homicidal, Suicidal, threat to staff... and all critical care pts) @ -yes (John Motley) Reevaluation #5: Differential Palpitations Ventricular arrhythmias, atrial arrhythmias, myocardial infarction, anemia, thyrotoxicosis, electrolyte imbalance, hypokalemia, pulmonary embolism, pulmonary disease, drugs, alcohol, anxiety, stress.... This is not meant to be an all-inclusive list. (John Motley) Medical Decision Making <John Motley - Last Filed: 11/10/24 09:23> - Medical Decision Making 64 female to the ER for evaluation of severe anxiety with history of alcoholism and chest pain. Patient has no current chest pain mainly complaining of severe anxiety, patient can be discharged home (John Motley) Disposition <Ankur Cottrell - Last Filed: 11/10/24 06:28> Is patient prescribed a controlled substance at d/c from ED?: No Time of Disposition: 09:20 <John Motley - Last Filed: 11/10/24 09:23> Clinical Impression: Alcohol intoxication, Weakness, Anxiety Disposition: HOME SELF-CARE Condition: Good Instructions (If sedation given, give patient instructions): Anxiety (ED) Prescriptions: LORazepam [Ativan] 2 mg PO TID 3 Days #9 tab Referrals: Miya Johnson MD [Primary Care Provider] - 1-2 days
[2024-11-10] MEDS ORDERED: ONDANSETRON ODT 4 MG TAB PO STA (09:20)
[2024-11-10] MEDS ORDERED: diazePAM 5 MG TAB PO STA (09:20)
[2024-11-10] MEDS ORDERED: LORazepam 1 MG TAB PO STA (09:20)
== END 2024-11-10 10:15 | disposition home or self-care (01) ==
LOC: EC 05:48
DX: R53.1 Weakness (principal); F10.129 Alcohol abuse with intoxication, unspecified; F41.9 Anxiety disorder, unspecified; F17.200 Nicotine dependence, unspecified, uncomplicated; Z88.5 Allergy status to narcotic agent; Z88.8 Allergy status to other drugs, medicaments and biological substances; Z88.7 Allergy status to serum and vaccine; Z91.040 Latex allergy status; Z86.73 Personal history of transient ischemic attack (TIA), and cerebral infarction without residual deficits
CPT/HCPCS: 99284

== ENCOUNTER 2024-11-20 13:13 | Emergency (ER) | payer OTHER ==
[2024-11-20 13:21] VITALS: RESP 18; TEMP 98.3
--- NOTE | 2024-11-20 13:52 | CT ---
EXAMINATION TYPE: CT brain roni wo con DATE OF EXAM: 11/20/2024 COMPARISON: 09/22/2024 CLINICAL INDICATION: Female, 64 years old with history of fall, head injury; PHH, FALL TECHNIQUE: CT scan of the head and cervical spine are performed without contrast. CT DLP: 1433.[address] CTDI: mGy Automated exposure control for dose reduction was used. Findings: Head CT: The ventricles, basal cisterns and sulci are moderately enlarged consistent with moderate generalized atrophy. There is a remote cortical infarct in the left parietal lobe. There is a remote white matter infarct in the posterior left frontal lobe. There is moderate diffuse decreased density in the periventricula r white matter consistent with chronic ischemic white matter demyelination. 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 There is no mass effect or shift of midline structures. There is no acute intra or extra-axial hemorr sanchez. Posterior fossa including the brainstem, fourth ventricle and cerebellar pontine angles are grossly n ormal. The intraorbital contents appear normal and symmetric. Visualized paranasal sinuses are well aerated. CT cervical spine: Craniovertebral junction relationships and prevertebral soft tissues are normal. The cervical vertebral segments are normal in height and alignment and there is no fracture subluxati on. There is mild degenerative disc disease and osteoarthritis of the uncovertebral joints at C4-5, C5-6 levels. The bony cervical canal is widely patent and there is no bony encroachment of the neural foramina. The paraspinal soft tissues unremarkable. IMPRESSION: 1. Head CT: No acute bleed or mass effect. Remote infarcts as described above. Stable colloid cyst th ird ventricle. 2. CT cervical spine: No acute trauma. Mild degenerative changes at C4-5 and C5-6 levels. 3. No significant interval change compared to previous. [facility], , 11/20/2024 1:49 PM
[2024-11-20] MEDS: SODIUM CHLORIDE 0.9% 1,000 ML IV STA (13:57)
[2024-11-20 14:03] LABS: Anisocytosis Slight; Basophils # (A) 0.1 k/uL (0-0.2); Basophils % (A) 2 %; Eosinophils # (A) 0.2 k/uL (0-0.7); Eosinophils % (A) 4 %; HCT 32.6 % (34.0-46.0); HGB 10.6 gm/dL (11.4-16.0); Hypochromasia Slight; Lymphocytes # (A) 1.8 k/uL (1.0-4.8); Lymphocytes % (A) 36 %; MCH 30.2 pg (25.0-35.0); MCHC 32.4 g/dL (31.0-37.0); MCV 93.4 fL (80.0-100.0); Macrocytosis Slight; Mean Platelet Volume 8.9; Monocytes # (A) 0.4 k/uL (0-1.0); Monocytes % (A) 7 %; Neutrophils # (A) 2.4 k/uL (1.3-7.7); Neutrophils % (A) 48 %; RBC 3.49 m/uL (3.80-5.40); RDW 19.5 % (11.5-15.5); WBC 5.1 k/uL (3.8-10.6)
[2024-11-20 14:14] LABS: ALT 32 U/L (4-34); AST 39 U/L (14-36); African American GFR (CKD) >90 (>60 ml/min/1.73 sqM); Albumin 3.5 g/dL (3.5-5.0); Alkaline Phosphatase 109 U/L (38-126); Anion Gap 12 mmol/L; Blood Urea Nitrogen <2 mg/dL (7-17); Calcium 8.3 mg/dL (8.4-10.2); Carbon Dioxide 22 mmol/L (22-30); Chloride 103 mmol/L (98-107); Glucose 126 mg/dL (74-99); Non-African American GFR(CKD) >90 (>60 ml/min/1.73 sqM); Potassium 3.7 mmol/L (3.5-5.1); Sodium 137 mmol/L (137-145); Total Bilirubin <0.1 mg/dL (0.2-1.3); Total Protein 5.9 g/dL (6.3-8.2)
[2024-11-20 14:20] LABS: INR 0.9 (<1.2); Partial Thromboplastin Time 22.3 sec (22.0-30.0); Prothrombin Time 10.5 sec (10.0-12.5)
--- NOTE | 2024-11-20 14:36 | XR ---
EXAMINATION TYPE: XR chest 2V DATE OF EXAM: 11/20/2024 2:29 PM COMPARISON: Chest x-ray November 08, 2024 CLINICAL INDICATION: Female, 64 years old with history of Weakness, TECHNIQUE: Frontal and lateral views of the chest are obtained. FINDINGS: There is no focal air space opacity, pleural effusion, or pneumothorax seen. The cardiac silhouette size is upper limits of normal. The osseous structures are intact. IMPRESSION: No acute pulmonary process. [facility], , 11/20/2024 2:33 PM
--- NOTE | 2024-11-20 14:38 | XR ---
EXAMINATION TYPE: XR Hip RT and AP Pelvis DATE OF EXAM: 11/20/2024 COMPARISON: Right hip x-ray November 09, 2024 CLINICAL INDICATION: Female, 64 years old with history of fall, pain; TECHNIQUE: A single AP view of the pelvis is obtained. Two views of the right hip are obtained. FINDINGS: There is no acute fracture/dislocation evident in the pelvis or right hip. The sacroiliac joints appear symmetric. Symmetric [id number] axial joint space loss of both hips. Right-sided pelvic phleboliths are present. Vascular calcification overlying the bilateral pelvis is seen extend ing into the right groin region. IMPRESSION: There is no acute fracture or dislocation in the pelvis or right hip. [facility], , 11/20/2024 2:36 PM
[2024-11-20 14:46] LABS: Platelet Count 151 k/uL (150-450)
--- NOTE | 2024-11-20 16:22 | ED ---
Fall HPI - General Chief Complaint: Fall Stated Complaint: Fall-Head injury Time Seen by Provider: 11/20/24 13:14 Source: patient Mode of arrival: EMS - History of Present Illness Initial Comments: 64-year-old female presents to the emergency department with head injury. Patient was at home drinking alcohol when she fell and hit her head. It was reported that the patient was just discharged from rehab yesterday. She states that she signed herself out and took a cab home from [place]. Patient drank 4 shots, lost her balance and hit her head. She does take anticoagulation. Patient arrives in a c-collar. She denies any neck pain. Denies any back pain. No pain in her extremities. HPI is limited due to patient's intoxicated status - Related Data Home Medications Medication Instructions Recorded Confirmed Budesonide/Formoterol Fumarate 2 puff INHALATION RT-HS 07/29/23 09/10/24 [Symbicort 160-4.5 Mcg Inhaler] Multivitamin [Multivitamins Adult 2 tab PO HS 12/04/23 09/10/24 Gummies] Brimonidine Tartrate [Alphagan P 1 drop BOTH EYES BID 02/02/24 09/10/24 0.2% Ophth Soln] Fluticasone Nasal [place] [Flonase 2 spr EA NOSTRIL HS 02/02/24 09/10/24 Nasal [place]] Artificial Tears-Hypromellose 1 drop BOTH EYES TID PRN 03/10/24 09/10/24 [Artificial Tear Drops] Potassium Chloride ER [K-Dur 20] 20 meq PO HS 03/15/24 09/10/24 Cholecalciferol (Vitamin D3) 50 mcg PO HS 05/03/24 09/10/24 [Vitamin D3 (50 Mcg = 2000 Iu)] Ferrous Sulfate [Iron (65 MG 325 mg PO HS 05/03/24 09/10/24 Elemental)] Ipratropium-Albuterol Nebulize 3 ml INHALATION RT-QID PRN 05/24/24 09/10/24 [Duoneb 0.5 mg-3 mg/3 ml Soln] Albuterol Sulfate [Ventolin HFA] 1 - 2 puff INHALATION RT-Q6H PRN 09/10/24 09/10/24 Previous Rx's Medication Instructions Recorded Aspirin EC [Ecotrin Low Dose] 81 mg PO HS #90 tab 05/25/24 Atorvastatin [Lipitor] 80 mg PO HS #90 tab 05/25/24 Isosorbide Mononitrate ER [Imdur] 30 mg PO HS #90 tab 05/25/24 Magnesium Oxide [Mag-Ox] 400 mg PO HS #90 tab 05/25/24 Metoprolol Succinate (ER) [Toprol 50 mg PO HS #90 tab 05/25/24 XL] Ticagrelor [Brilinta] 90 mg PO HS #90 tab 05/25/24 Cephalexin [Keflex] 500 mg PO Q12HR 7 Days #14 cap 09/11/24 Losartan [Cozaar] 25 mg PO DAILY #30 tab 09/11/24 Potassium Chloride ER [K-Dur 20] 20 meq PO BID #10 tab 10/29/24 chlordiazePOXIDE HCl [Librium] 25 mg PO TID 3 Days #9 capsule 11/09/24 LORazepam [Ativan] 2 mg PO TID 3 Days #9 tab 11/10/24 Allergies Allergy/AdvReac Type Severity Reaction Status Date / Time [place] And Derivatives Allergy Rash/Hives Verified 11/20/24 13:21 [[place]] latex Allergy Rash/Hives Verified 11/20/24 13:21 adhesive tape AdvReac Rash/Hives Verified 11/20/24 13:21 amlodipine [From Norvasc] AdvReac Cough Verified 11/20/24 13:21 cinnamon AdvReac Nausea Verified 11/20/24 13:21 clonidine AdvReac "almost Verified 11/20/24 13:21 passed out" gabapentin AdvReac Dizziness Verified 11/20/24 13:21 Influenza Virus Vaccines AdvReac Nausea & Verified 11/20/24 13:21 Vomiting lisinopril AdvReac Cough Verified 11/20/24 13:21 morphine AdvReac Nausea & Verified 11/20/24 13:21 Vomiting sucralfate [From Carafate] AdvReac Abdominal Verified 11/20/24 13:21 Pain tomato AdvReac Diarrhea Verified 11/20/24 13:21 Review of Systems ROS Statement: Those systems with pertinent positive or pertinent negative responses have been documented in the HPI. ROS Other: All systems not noted in ROS Statement are negative. Past Medical History Past Medical History: Asthma, Coronary Artery Disease (CAD), COPD, CVA/TIA, Eye Disorder, Hypertension, Liver Disease, Myocardial Infarction ([place]), Seizure Disorder, Vascular Disorder Additional Past Medical History / Comment(s): Pt recently admitted to [facility] for diarrhea, ETOH abuse. 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 Past Psychological History: Anxiety, Depression Smoking Status: Current every day smoker Past Alcohol Use History: Abuse, Daily, Heavy Past Drug Use History: Marijuana - Past Family History Mother Family Medical History: Cancer, Congestive Heart Failure (CHF), Coronary Artery Disease (CAD), Hyperlipidemia Additional Family Medical History / Comment(s): Mother at age 85 from lung cancer. Father Family Medical History: Cancer, COPD Additional Family Medical History / Comment(s): Father at age 63 from lung cancer. Brother(s) Additional Family Medical History / Comment(s): Patient has a total of 7 siblings. 5 are alive without any major medical problems she is aware of. 2 siblings have one from alcohol abuse and 1. Coronary artery disease. Daughter(s) Family Medical History: No Reported History Additional Family Medical History / Comment(s): Patient has one daughter with no major medical problems. General Exam Limitations: physical limitation General appearance: alert, appears intoxicated Head exam: Present: atraumatic, normocephalic, normal inspection, other (no visible sign of injury) Eye exam: Present: normal appearance, PERRL, EOMI. Absent: scleral icterus, conjunctival injection, periorbital swelling ENT exam: Present: normal exam, mucous membranes moist Neck exam: Present: normal inspection. Absent: tenderness, meningismus, lymphadenopathy Respiratory exam: Present: normal lung sounds bilaterally. Absent: respiratory distress, wheezes, rales, rhonchi, stridor Cardiovascular Exam: Present: regular rate, normal rhythm, normal heart sounds. Absent: systolic murmur, diastolic murmur, rubs, gallop, clicks GI/Abdominal exam: Present: soft, normal bowel sounds. Absent: distended, tenderness, guarding, rebound, rigid Neurological exam: Present: altered Psychiatric exam: Present: agitated Skin exam: Present: warm, dry, intact, normal color. Absent: rash Course Vital Signs 11/20/24 11/20/24 11/20/24 13:16 14:30 16:21 Temperature 98.3 F Pulse Rate 73 74 82 Respiratory 18 18 18 Rate Blood Pressure 78/56 94/59 132/82 O2 Sat by Pulse 99 98 95 Oximetry Medical Decision Making - Medical Decision Making Was pt. sent in by a medical professional or institution (, PA, INSULATION TECHNICIAN, urgent care, hospital, or long-term...) When possible be specific @ -No Did you speak to anyone other than the patient for history (EMS, parent, family, police, friend...)? What history was obtained from this source @ -Spoke with EMS for history Did you review nursing and triage notes (agree or disagree)? Why? @ -I reviewed and agree with nursing and triage notes Were old charts reviewed (outside hosp., previous admission, EMS record, old EKG, old radiological studies, urgent care reports/EKG's, long-term records)? Report findings @ -No old charts were reviewed Differential Diagnosis (chest pain, altered mental status, abdominal pain women, abdominal pain men, vaginal bleeding, weakness, fever, dyspnea, syncope, headache, dizziness, GI bleed, back pain, seizure, CVA, palpatations, mental health, musculoskeletal)? @ -Subdural hemorrhage, subarachnoid hemorrhage, skull fracture, neck fracture EKG interpreted by me (3pts min.). @ -Yes and demonstrates sinus rhythm with a rate of 73. Parable 144. QRS 89. QTc of 425. No acute ST segment elevations. Inverted T wave 1, aVL, V2V3 X-rays interpreted by me (1pt min.). @ -None done CT interpreted by me (1pt min.). @ -Yes and demonstrates no acute findings U/S interpreted by me (1pt. min.). @ -None done What testing was considered but not performed or refused? (CT, X-rays, U/S, labs)? Why? @ -None What meds were considered but not given or refused? Why? @ -None Did you discuss the management of the patient with other professionals (professionals i.e. Dr., PA, INSULATION TECHNICIAN, lab, RT, psych nurse, clinical social work aide, vice president of advertising, teacher, small business banking officer, case packer)? Give summary @ -No Was smoking cessation discussed for >3mins.? @ -No Was critical care preformed (if so, how long)? @ -No Were there social determinants of health that impacted care today? How? (Homelessness, low income, unemployed, alcoholism, drug addiction, transportation, low edu. Level, literacy, decrease access to med. care, fdc, rehab)? @ -No Was there de-escalation of care discussed even if they declined (Discuss DNR or withdrawal of care, Hospice)? DNR status @ -No What co-morbidities impacted this encounter? (DM, HTN, Smoking, COPD, CAD, Cancer, CVA, ARF, Chemo, Hep., AIDS, mental health diagnosis, sleep apnea, morbid obesity)? @ -Alcohol abuse Was patient admitted / discharged? Hospital course, mention meds given and route, prescriptions, significant lab abnormalities, going to OR and other pertinent info. @ -Arrival patient seen and evaluated in hallway 21. Thorough history and physical exam was performed. IV access was established. Patient was administe red normal saline bolus. Laboratory studies are conducted. Code coag is initiated. CT of the brain and cervical spine were performed. C-collar is removed. Patient does spend several hours in the emergency department. She does have improvement in her blood pressure and mental status. Patient is eager to leave. I did inform the patient that she was stable for discharge at this time. Needs to follow-up with her doctor in 2 to 4 days. Patient eloped from the emergency department without receiving her discharge instructions Undiagnosed new problem with uncertain prognosis? @ -No Drug Therapy requiring intensive monitoring for toxicity (Heparin, Nitro, Insulin, Cardizem)? @ -No Were any procedures done? @ -No Diagnosis/symptom? @ -Acute alcohol intoxication, acute fall, blunt head injury Acute, or Chronic, or Acute on Chronic? @ -Acute Uncomplicated (without systemic symptoms) or Complicated (systemic symptoms)? @ -Complicated Side effects of treatment? @ -No Exacerbation, Progression, or Severe Exacerbation? @ -No Poses a threat to life or bodily function? How? (Chest pain, [place], [place], pneumonia, PE, COPD, DKA, ARF, appy, cholecystitis, CVA, Diverticulitis, Homicidal, Sherly cidal, threat to staff... and all critical care pts) @ -yes as patient did sustain head injury on a blood thinner - Lab Data Result diagrams: 11/20/24 13:54 11/20/24 13:54 Lab Results 11/20/24 11/20/24 11/20/24 Range/Units 13:54 13:54 13:54 WBC 5.1 (3.8-10.6) k/uL RBC 3.49 L (3.80-5.40) m/uL Hgb 10.6 L (11.4-16.0) gm/dL Hct 32.6 L (34.0-46.0) % MCV 93.4 (80.0-100.0) fL MCH 30.2 (25.0-35.0) pg MCHC 32.4 (31.0-37.0) g/dL RDW 19.5 H (11.5-15.5) % Plt Count 151 D (150-450) k/uL MPV 8.9 Neutrophils % 48 % Lymphocytes % 36 % Monocytes % 7 % Eosinophils % 4 % Basophils % 2 % Neutrophils # 2.4 (1.3-7.7) k/uL Lymphocytes # 1.8 (1.0-4.8) k/uL Monocytes # 0.4 (0-1.0) k/uL Eosinophils # 0.2 (0-0.7) k/uL Basophils # 0.1 (0-0.2) k/uL Manual Slide Review Performed Hypochromasia Slight Anisocytosis Slight Macrocytosis Slight PT 10.5 (10.0-12.5) sec INR 0.9 (<1.2) APTT 22.3 (22.0-30.0) sec Sodium 137 (137-145) mmol/L Potassium 3.7 (3.5-5.1) mmol/L Chloride 103 (98-107) mmol/L Carbon Dioxide 22 (22-30) mmol/L Anion Gap 12 mmol/L BUN <2 L (7-17) mg/dL Creatinine 0.62 (0.52-1.04) mg/dL Est GFR (CKD-EPI)AfAm >90 (>60 ml/min/1.73 sqM) Est GFR (CKD-EPI)NonAf >90 (>60 ml/min/1.73 sqM) Glucose 126 H (74-99) mg/dL Lactic Ac Sepsis Rflx Plasma Lactic Acid [place]ron (0.7-2.0) mmol/L Calcium 8.3 L (8.4-10.2) mg/dL Total Bilirubin <0.1 L (0.2-1.3) mg/dL AST 39 H (14-36) U/L ALT 32 (4-34) U/L Alkaline Phosphatase 109 (38-126) U/L Troponin I (0.000-0.034) ng/mL Total Protein 5.9 L (6.3-8.2) g/dL Albumin 3.5 (3.5-5.0) g/dL 11/20/24 11/20/24 11/20/24 Range/Units 13:54 13:54 14:39 WBC (3.8-10.6) k/uL RBC (3.80-5.40) m/uL Hgb (11.4-16.0) gm/dL Hct (34.0-46.0) % MCV (80.0-100.0) fL MCH (25.0-35.0) pg MCHC (31.0-37.0) g/dL RDW (11.5-15.5) % Plt Count (150-450) k/uL MPV Neutrophils % % Lymphocytes % % Monocytes % % Eosinophils % % Basophils % % Neutrophils # (1.3-7.7) k/uL Lymphocytes # (1.0-4.8) k/uL Monocytes # (0-1.0) k/uL Eosinophils # (0-0.7) k/uL Basophils # (0-0.2) k/uL Manual Slide Review Hypochromasia Anisocytosis Macrocytosis PT (10.0-12.5) sec INR (<1.2) APTT (22.0-30.0) sec Sodium (137-145) mmol/L Potassium (3.5-5.1) mmol/L Chloride (98-107) mmol/L Carbon Dioxide (22-30) mmol/L Anion Gap mmol/L BUN (7-17) mg/dL Creatinine (0.52-1.04) mg/dL Est GFR (CKD-EPI)AfAm (>60 ml/min/1.73 sqM) Est GFR (CKD-EPI)NonAf (>60 ml/min/1.73 sqM) Glucose (74-99) mg/dL Lactic Ac Sepsis Rflx Y Plasma Lactic Acid [place] 2.4 H* (0.7-2.0) mmol/L Calcium (8.4-10.2) mg/dL Total Bilirubin (0.2-1.3) mg/dL AST (14-36) U/L ALT (4-34) U/L Alkaline Phosphatase (38-126) U/L Troponin I <0.012 (0.000-0.034) ng/mL Total Protein (6.3-8.2) g/dL Albumin (3.5-5.0) g/dL Disposition Clinical Impression: Fall, Head injury, Hypotension Disposition: HOME SELF-CARE Condition: Stable Instructions (If sedation given, give patient instructions): Fall Prevention (ED) Additional Instructions: Please stop drinking. Follow-up with your doctor within 2 to 4 days and return for any new or worsening symptoms Is patient prescribed a controlled substance at d/c from ED?: No Referrals: Miya Johnson MD [Primary Care Provider] - 1-2 days Time of Disposition: 17:07
[2024-11-20 16:23] VITALS: BP 132/82; PULSE 82
[2024-11-20] MEDS: SODIUM CHLORIDE 0.9% 1,000 ML IV ONE (17:06)
== END 2024-11-20 17:06 | disposition home or self-care (01) ==
LOC: EC 13:13
DX: S09.90XA Unspecified injury of head, initial encounter (principal); I95.9 Hypotension, unspecified; F10.129 Alcohol abuse with intoxication, unspecified; F17.200 Nicotine dependence, unspecified, uncomplicated; Z86.73 Personal history of transient ischemic attack (TIA), and cerebral infarction without residual deficits; Z88.5 Allergy status to narcotic agent; Z88.7 Allergy status to serum and vaccine; Z88.8 Allergy status to other drugs, medicaments and biological substances; Z91.018 Allergy to other foods; Z91.040 Latex allergy status; Z91.09 Other allergy status, other than to drugs and biological substances; W18.09XA Striking against other object with subsequent fall, initial encounter; Y92.009 Unspecified place in unspecified non-institutional (private) residence as the place of occurrence of the external cause
CPT/HCPCS: 36415; 70450; 71046; 72125; 73502; 80053; 83605; 84484; 85025; 85610; 85730; 93005; 96360; 99285

== ENCOUNTER 2024-11-24 16:50 | Emergency (ER) | payer OTHER ==
[2024-11-24 17:21] VITALS: RESP 18; TEMP 97.7
--- NOTE | 2024-11-24 18:03 | XR ---
EXAMINATION TYPE: XR Hip LT and AP Pelvis DATE OF EXAM: 11/24/2024 5:47 PM COMPARISON: 11/20/2024 CLINICAL INDICATION: Female, 64 years old with history of fall/pain; PHH, pain TECHNIQUE: XR Hip LT and AP Pelvis; hip was examined in the frontal and lateral projections and a AP pelvis. FINDINGS: No evidence for acute process, joint dislocation or significant soft tissue swelling. Osteo phyte formation of the superior acetabulum of the hip. There is mild joint space narrowing. Atheroscl erosis of the arterial vasculature. IMPRESSION: 1. No evidence for acute process. 2. Mild hip osteoarthrosis. [facility], , 11/24/2024 6:01 PM
--- NOTE | 2024-11-24 18:13 | ED ---
General Adult HPI - General Chief complaint: Extremity Injury, Lower Stated complaint: Fall Time Seen by Provider: 11/24/24 17:04 Source: patient, EMS, RN notes reviewed, old records reviewed Mode of arrival: EMS Limitations: no limitations - History of Present Illness Initial comments: 64-year-old female presents status post fall which occurred 2 days prior. Patient states she fell in the kitchen. Landing on her left hip. She has been able to ambulate since the fall. She had called 911 today with pain in the left hip. She is intoxicated upon arrival. She is well-known to this emergency department. She denies head or neck injury. - Related Data Home Medications Medication Instructions Recorded Confirmed Budesonide/Formoterol Fumarate 2 puff INHALATION RT-HS 07/29/23 09/10/24 [Symbicort 160-4.5 Mcg Inhaler] Multivitamin [Multivitamins Adult 2 tab PO HS 12/04/23 09/10/24 Gummies] Brimonidine Tartrate [[place] P 1 drop BOTH EYES BID 02/02/24 09/10/24 0.2% Ophth Soln] Fluticasone Nasal [place] [Flonase 2 spr EA NOSTRIL HS 02/02/24 09/10/24 Nasal [place]] Artificial Tears-Hypromellose 1 drop BOTH EYES TID PRN 03/10/24 09/10/24 [Artificial Tear Drops] Potassium Chloride ER [K-Dur 20] 20 meq PO HS 03/15/24 09/10/24 Cholecalciferol (Vitamin D3) 50 mcg PO HS 05/03/24 09/10/24 [Vitamin D3 (50 Mcg = 2000 Iu)] Ferrous Sulfate [Iron (65 MG 325 mg PO HS 05/03/24 09/10/24 Elemental)] Ipratropium-Albuterol Nebulize 3 ml INHALATION RT-QID PRN 05/24/24 09/10/24 [Duoneb 0.5 mg-3 mg/3 ml Soln] Albuterol Sulfate [Ventolin HFA] 1 - 2 puff INHALATION RT-Q6H PRN 09/10/24 09/10/24 Previous Rx's Medication Instructions Recorded Aspirin EC [Ecotrin Low Dose] 81 mg PO HS #90 tab 05/25/24 Atorvastatin [Lipitor] 80 mg PO HS #90 tab 05/25/24 Isosorbide Mononitrate ER [Imdur] 30 mg PO HS #90 tab 05/25/24 Magnesium Oxide [Mag-Ox] 400 mg PO HS #90 tab 05/25/24 Metoprolol Succinate (ER) [Toprol 50 mg PO HS #90 tab 05/25/24 XL] Ticagrelor [Brilinta] 90 mg PO HS #90 tab 05/25/24 Cephalexin [Keflex] 500 mg PO Q12HR 7 Days #14 cap 09/11/24 Losartan [Cozaar] 25 mg PO DAILY #30 tab 09/11/24 Potassium Chloride ER [K-Dur 20] 20 meq PO BID #10 tab 10/29/24 chlordiazePOXIDE HCl [Librium] 25 mg PO TID 3 Days #9 capsule 11/09/24 LORazepam [Ativan] 2 mg PO TID 3 Days #9 tab 11/10/24 Allergies Allergy/AdvReac Type Severity Reaction Status Date / Time [place] And Derivatives Allergy Rash/Hives Verified 11/20/24 13:21 [[place]] latex Allergy Rash/Hives Verified 11/20/24 13:21 adhesive tape AdvReac Rash/Hives Verified 11/20/24 13:21 amlodipine [From Norvasc] AdvReac Cough Verified 11/20/24 13:21 cinnamon AdvReac Nausea Verified 11/20/24 13:21 clonidine AdvReac "almost Verified 11/20/24 13:21 passed out" gabapentin AdvReac Dizziness Verified 11/20/24 13:21 Influenza Virus Vaccines AdvReac Nausea & Verified 11/20/24 13:21 Vomiting lisinopril AdvReac Cough Verified 11/20/24 13:21 morphine AdvReac Nausea & Verified 11/20/24 13:21 Vomiting sucralfate [From Carafate] AdvReac Abdominal Verified 11/20/24 13:21 Pain tomato AdvReac Diarrhea Verified 11/20/24 13:21 Review of Systems ROS Statement: Those systems with pertinent positive or pertinent negative responses have been documented in the HPI. ROS Other: All systems not noted in ROS Statement are negative. Past Medical History Past Medical History: Asthma, Coronary Artery Disease (CAD), COPD, CVA/TIA, Eye Disorder, Hypertension, Liver Disease, Myocardial Infarction (AR), Seizure Disorder, Vascular Disorder Additional Past Medical History / Comment(s): Pt recently admitted to [facility] for diarrhea, ETOH abuse. 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 Past Psychological History: Anxiety, Depression Smoking Status: Current every day smoker Past Alcohol Use History: Abuse, Daily, Heavy Past Drug Use History: Marijuana - Past Family History Mother Family Medical History: Cancer, Congestive Heart Failure (CHF), Coronary Artery Disease (CAD), Hyperlipidemia Additional Family Medical History / Comment(s): Mother at age 85 from lung cancer. Father Family Medical History: Cancer, COPD Additional Family Medical History / Comment(s): Father at age 63 from lung cancer. Brother(s) Additional Family Medical History / Comment(s): Patient has a total of 7 siblings. 5 are alive without any major medical problems she is aware of. 2 siblings have one from alcohol abuse and 1. Coronary artery disease. Daughter(s) Family Medical History: No Reported History Additional Family Medical History / Comment(s): Patient has one daughter with no major medical problems. General Exam Limitations: no limitations General appearance: alert, in no apparent distress Head exam: Present: atraumatic, normocephalic Eye exam: Present: normal appearance, PERRL ENT exam: Present: normal exam Neck exam: Present: normal inspection. Absent: tenderness, meningismus Respiratory exam: Present: normal lung sounds bilaterally. Absent: respiratory distress, wheezes Cardiovascular Exam: Present: regular rate, normal rhythm GI/Abdominal exam: Present: soft. Absent: distended, tenderness, guarding Extremities exam: Present: other (Ecchymosis over the greater trochanter left hip, normal range of motion, no leg length discrepancy) Neurological exam: Present: alert, oriented X3, CN II-XII intact, motor sensory deficit Skin exam: Present: warm, dry, intact Course Vital Signs 11/24/24 17:16 Temperature 97.7 F Pulse Rate 104 H Respiratory 18 Rate Blood Pressure 117/85 O2 Sat by Pulse 97 Oximetry Medical Decision Making - Medical Decision Making Was pt. sent in by a medical professional or institution (YESSY Lloyd, NATUROPATHIC DOCTOR, urgent care, hospital, or retirement...) When possible be specific @ -No Did you speak to anyone other than the patient for history (EMS, parent, family, police, friend...)? What history was obtained from this source @ -No Did you review nursing and triage notes (agree or disagree)? Why? @ -I reviewed and agree with nursing and triage notes Were old charts reviewed (outside hosp., previous admission, EMS record, old EKG, old radiological studies, urgent care reports/EKG's, retirement records)? Report findings @ -No old charts were reviewed Differential Musculoskeletal Muscular strain, contusion, ligament sprain, fracture, arthritis, septic arthritis, bursitis, cellulitis, muscle spasm, nerve compression, DVT, arterial occlusion, herpes zoster, electrolyte abnormality, tumor.... This is not meant to be in all inclusive list EKG interpreted by me (3pts min.). @ -As above X-rays interpreted by me (1pt min.). @ -Left hip x-ray and pelvis x-ray are negative for displaced fracture or dislocation CT interpreted by me (1pt min.). @ -None done U/S interpreted by me (1pt. min.). @ -None done What testing was considered but not performed or refused? (CT, X-rays, U/S, labs)? Why? @ -None What meds were considered but not given or refused? Why? @ -None Did you discuss the management of the patient with other professionals (professionals i.e. YESSY Lloyd, NATUROPATHIC DOCTOR, lab, RT, psych nurse, social media community manager, crab catcher, teacher, client sales and service officer, mattress spring encaser)? Give summary @ -No Was smoking cessation discussed for >3mins.? @ -No Was critical care preformed (if so, how long)? @ -No Were there social determinants of health that impacted care today? How? (Homelessness, low income, unemployed, alcoholism, drug addiction, transportation, low edu. Level, literacy, decrease access to med. care, detention, rehab)? @ -No Was there de-escalation of care discussed even if they declined (Discuss DNR or withdrawal of care, Hospice)? DNR status @ -No What co-morbidities impacted this encounter? (DM, HTN, Smoking, COPD, CAD, Cancer, CVA, ARF, Chemo, Hep., AIDS, mental health diagnosis, sleep apnea, morbid obesity)? @ -Alcohol abuse, frequent falls Was patient admitted / discharged? Hospital course, mention meds given and route, prescriptions, significant lab abnormalities, going to OR and other pertinent info. @ -64-year-old female with alcohol abuse history and frequent falls presents status post fall which occurred 2 days ago with left hip pain. Patient has ecchymosis over the lateral aspect of the hip. Normal range of motion. X-rays of the hip and pelvis are negative for displaced fracture or dislocation. The remainder of physical exam does not elicit any external signs of trauma including no head neck or back trauma. Patient observed in the emergency department and discharged in stable condition. Undiagnosed new problem with uncertain prognosis? @ -No Drug Therapy requiring intensive monitoring for toxicity (Heparin, Nitro, Insulin, Cardizem)? @ -No Were any procedures done? @ -No Diagnosis/symptom? @ -Fall, left hip contusion Acute, or Chronic, or Acute on Chronic? @Acute on chronic Uncomplicated (without systemic symptoms) or Complicated (systemic symptoms)? @ -Default Side effects of treatment? @ -No Exacerbation, Progression, or Severe Exacerbation? @ -No Poses a threat to life or bodily function? How? (Chest pain, USA, AR, pneumonia, PE, COPD, DKA, ARF, appy, cholecystitis, CVA, Diverticulitis, Homicidal, Suicidal, threat to staff... and all critical care pts) @Moderate risk, alcohol abuse with frequent falls Disposition Clinical Impression: Contusion, hip Disposition: HOME SELF-CARE Instructions (If sedation given, give patient instructions): Hip Contusion (ED), Fall Prevention for Older Adults (ED) Is patient prescribed a controlled substance at d/c from ED?: No Referrals: Miya Johnson MD [Primary Care Provider] - 1-2 days Time of Disposition: 19:15
[2024-11-24 18:41] VITALS: BP 99/58; PULSE 98
== END 2024-11-24 18:41 | disposition home or self-care (01) ==
LOC: EC 16:50
DX: S70.02XA Contusion of left hip, initial encounter (principal); F17.200 Nicotine dependence, unspecified, uncomplicated; F10.10 Alcohol abuse, uncomplicated; Z91.018 Allergy to other foods; Z91.048 Other nonmedicinal substance allergy status; Z88.5 Allergy status to narcotic agent; Z88.7 Allergy status to serum and vaccine; Z88.8 Allergy status to other drugs, medicaments and biological substances; W19.XXXA Unspecified fall, initial encounter; Y92.000 Kitchen of unspecified non-institutional (private) residence as the place of occurrence of the external cause
CPT/HCPCS: 73502; 99284

== ENCOUNTER 2024-12-14 15:51 | Emergency (ER) | payer OTHER ==
[2024-12-14 16:12] VITALS: BP 87/59; PULSE 64; RESP 16; TEMP 98.3
--- NOTE | 2024-12-14 16:56 | ED ---
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 Patient was discharged from [facility] with no treatment intervention, patient was confused with discharge instructions, she has persistent headache since, does admit to alcohol intoxication today MD Complaint: medication refill request -: days(s) Returns Today for: persistent/worsening pain related to initial visit Symptoms Since Prior Visit: worsening pain Associated Symptoms: none Treatments Prior to Arrival: other - Related Data Home Medications Medication Instructions Recorded Confirmed RX: Budesonide/Formoterol Fumarate 2 puff INHALATION RT-HS 07/29/23 09/10/24 [Symbicort 160-4.5 Mcg Inhaler] RX: Multivitamin [Multivitamins 2 tab PO HS 12/04/23 09/10/24 Adult Gummies] RX: Brimonidine Tartrate [Alphagan 1 drop BOTH EYES BID 02/02/24 09/10/24 P 0.2% Ophth Soln] RX: Fluticasone Nasal [place] 2 spr EA NOSTRIL HS 02/02/24 09/10/24 [Flonase Nasal [place]] RX: Artificial Tears-Hypromellose 1 drop BOTH EYES TID PRN 03/10/24 09/10/24 [Artificial Tear Drops] RX: Potassium Chloride ER [K-Dur 20 meq PO HS 03/15/24 09/10/24 20] RX: Cholecalciferol (Vitamin D3) 50 mcg PO HS 05/03/24 09/10/24 [Vitamin D3 (50 Mcg = 2000 Iu)] RX: Ferrous Sulfate [Iron (65 MG 325 mg PO HS 05/03/24 09/10/24 Elemental)] RX: Ipratropium-Albuterol Nebulize 3 ml INHALATION RT-QID PRN 05/24/24 09/10/24 [Duoneb 0.5 mg-3 mg/3 ml Soln] RX: Albuterol Sulfate [Ventolin 1 - 2 puff INHALATION RT-Q6H PRN 09/10/24 09/10/24 HFA] Previous Rx's Medication Instructions Recorded RX: Aspirin EC [Ecotrin Low Dose] 81 mg PO HS #90 tab 05/25/24 RX: Atorvastatin [Lipitor] 80 mg PO HS #90 tab 05/25/24 RX: Isosorbide Mononitrate ER 30 mg PO HS #90 tab 05/25/24 [Imdur] RX: Magnesium Oxide [Mag-Ox] 400 mg PO HS #90 tab 05/25/24 RX: Metoprolol Succinate (ER) 50 mg PO HS #90 tab 05/25/24 [Toprol XL] RX: Ticagrelor [Brilinta] 90 mg PO HS #90 tab 05/25/24 Cephalexin [Keflex] 500 mg PO Q12HR 7 Days #14 cap 09/11/24 RX: Losartan [Cozaar] 25 mg PO DAILY #30 tab 09/11/24 Potassium Chloride ER [K-Dur 20] 20 meq PO BID #10 tab 10/29/24 chlordiazePOXIDE HCl [Librium] 25 mg PO TID 3 Days #9 capsule 11/09/24 LORazepam [Ativan] 2 mg PO TID 3 Days #9 tab 11/10/24 Allergies Allergy/AdvReac Type Severity Reaction Status Date / Time [place] And Derivatives Allergy Rash/Hives Verified 12/14/24 16:12 [[place]] latex Allergy Rash/Hives Verified 12/14/24 16:12 adhesive tape AdvReac Rash/Hives Verified 12/14/24 16:12 amlodipine [From Norvasc] AdvReac Cough Verified 12/14/24 16:12 cinnamon AdvReac Nausea Verified 12/14/24 16:12 clonidine AdvReac "almost Verified 12/14/24 16:12 passed out" gabapentin AdvReac Dizziness Verified 12/14/24 16:12 Influenza Virus Vaccines AdvReac Nausea & Verified 12/14/24 16:12 Vomiting lisinopril AdvReac Cough Verified 12/14/24 16:12 morphine AdvReac Nausea & Verified 12/14/24 16:12 Vomiting sucralfate [From Carafate] AdvReac Abdominal Verified 12/14/24 16:12 Pain tomato AdvReac Diarrhea Verified 12/14/24 16:12 Review of Systems ROS Statement: Those systems with pertinent positive or pertinent negative responses have been documented in the HPI. ROS Other: All systems not noted in ROS Statement are negative. Past Medical History Past Medical History: Asthma, Coronary Artery Disease (CAD), COPD, CVA/TIA, Eye Disorder, Hypertension, Liver Disease, Myocardial Infarction (ID), Seizure Disorder, Vascular Disorder Additional Past Medical History / Comment(s): Pt recently admitted to [facility] for diarrhea, ETOH abuse. 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 Past Psychological History: Anxiety, Depression Smoking Status: Current every day smoker Past Alcohol Use History: Abuse, Daily, Heavy Past Drug Use History: Marijuana - Past Family History Mother Family Medical History: Cancer, Congestive Heart Failure (CHF), Coronary Artery Disease (CAD), Hyperlipidemia Additional Family Medical History / Comment(s): Mother at age 85 from lung cancer. Father Family Medical History: Cancer, COPD Additional Family Medical History / Comment(s): Father at age 63 from lung cancer. Brother(s) Additional Family Medical History / Comment(s): Patient has a total of 7 siblings. 5 are alive without any major medical problems she is aware of. 2 siblings have one from alcohol abuse and 1. Coronary artery disease. Daughter(s) Family Medical History: No Reported History Additional Family Medical History / Comment(s): Patient has one daughter with no major medical problems. General Exam Limitations: no limitations General appearance: alert, in no apparent distress, appears intoxicated Head exam: Present: atraumatic, normocephalic, normal inspection Eye exam: Present: normal appearance, PERRL, EOMI. Absent: scleral icterus, conjunctival injection, periorbital swelling ENT exam: Present: normal exam, mucous membranes moist Neck exam: Present: normal inspection. Absent: tenderness, meningismus, lymphadenopathy Respiratory exam: Present: normal lung sounds bilaterally. Absent: respiratory distress, wheezes, rales, rhonchi, stridor Cardiovascular Exam: Present: regular rate, normal rhythm, normal heart sounds. Absent: systolic murmur, diastolic murmur, rubs, gallop, clicks GI/Abdominal exam: Present: soft, normal bowel sounds. Absent: distended, tenderness, guarding, rebound, rigid Extremities exam: Present: normal inspection, full ROM, normal capillary refill. Absent: tenderness, pedal edema, joint swelling, calf tenderness Back exam: Present: normal inspection Neurological exam: Present: alert, oriented X3, CN II-XII intact Psychiatric exam: Present: normal affect, normal mood Skin exam: Present: warm, dry, intact, normal color. Absent: rash Course Vital Signs 12/14/24 16:05 Temperature 98.3 F Pulse Rate 64 Respiratory 16 Rate Blood Pressure 87/59 O2 Sat by Pulse 99 Oximetry - Reevaluation(s) Reevaluation #1: 12/14/24 17:04 Medical records reviewed Reevaluation #2: 12/14/24 17:22 Patient symptoms improved Reevaluation #3: 12/14/24 17:22 Patient informed of results questions answered Reevaluation #4: Was pt. sent in by a medical professional or institution (, PA, COLD SAW OPERATOR, urgent care, hospital, or senior living...) When possible be specific @ -no Did you speak to anyone other than the patient for history (EMS, parent, family, police, friend...)? What history was obtained from this source @ -no Did you review nursing and triage notes (agree or disagree)? Why? @ -agree Are old charts reviewed (outside hosp., previous admission, EMS record, old EKG, old radiological studies, urgent care reports/EKG's, senior living records)? Report findings @ -yes Differential Diagnosis (chest pain, altered mental status, abdominal pain women, abdominal pain men, vaginal bleeding, weakness, fever, dyspnea, syncope, headache, dizziness, GI bleed, back pain, seizure, CVA, palpatations, mental health, musculoskeletal)? @ -prior EKG interpreted by me (3pts min.). @ -yes X-rays interpreted by me (1pt min.). @ -yes negative for acute disease CT interpreted by me (1pt min.). @ -no U/S interpreted by me (1pt. min.). @ -no What testing was considered but not performed or refused? (CT, X-rays, U/S, labs)? Why? @ -none What meds were considered but not given or refused? Why? @ -none Did you discuss the management of the patient with other professionals (professionals i.e. Dr., PA, COLD SAW OPERATOR, lab, RT, psych nurse, social sciences instructor, garbage pick up man, teacher, division officer weapons department, transplant case manager)? Give summary @ -no Was smoking cessation discussed for >3mins.? @ -no Was critical care preformed (if so, how long)? @ -no Were there social determinants of health that impacted care today? How? (Homelessness, low income, unemployed, alcoholism, drug addiction, transportation, low edu. Level, literacy, decrease access to med. care, halfway, rehab)? @ -none Was there de-escalation of care discussed even if they declined (Discuss DNR or withdrawal of care, Hospice)? DNR status @ -no What co-morbidities impacted this encounter? (DM, HTN, Smoking, COPD, CAD, Cancer, CVA, ARF, Chemo, Hep., AIDS, mental health diagnosis, sleep apnea, morbid obesity)? @ -none Was patient admitted / discharged? Hospital course, mention meds given and route, prescriptions, significant lab abnormalities, going to OR and other pertinent info. @ - Undiagnosed new problem with uncertain prognosis? @ -no Drug Therapy requiring intensive monitoring for toxicity (Heparin, Nitro, Insulin, Cardizem)? @ -no Were any procedures done? @ -no Diagnosis/symptom? @ - Acute, or Chronic, or Acute on Chronic? @ -Acute Uncomplicated (without systemic symptoms) or Complicated (systemic symptoms)? @ -Complicated Side effects of treatment? @ -no Exacerbation, Progression, or Severe Exacerbation? @ -exacerbation Poses a threat to life or bodily function? How? (Chest pain, [place], ID, pneumonia, PE, COPD, DKA, ARF, appy, cholecystitis, CVA, Diverticulitis, Homicidal, Suicidal, threat to staff... and all critical care pts) @ -yes Reevaluation #5: Differential Headache: Migraine, tension, cluster, carbon monoxide, central venous thrombosis, pension karma temporal arteritis, acute closure glaucoma, intercranial hemorrhage, mastoiditis, sinusitis, head injury, this is not meant to be an all-inclusive list. Medical Decision Making - Medical Decision Making 64 female to ER with acute on chronic headaches. Patient has headache resolution here in the ER recent imaging including CT and MRI at outside facility, patient can be discharged home Disposition Clinical Impression: Headache Disposition: HOME SELF-CARE Condition: Fair Instructions (If sedation given, give patient instructions): Acute Headache (ED) Is patient prescribed a controlled substance at d/c from ED?: No Referrals: None,Stated [Primary Care Provider] - 1-2 days Time of Disposition: 17:30
[2024-12-14] MEDS: Acetaminophen-Codeine 300-30mg TAB PO STA (17:37)
[2024-12-14] MEDS: IBUPROFEN 600 MG STARTER PACK 4 TAB BTL PO STA (17:37)
[2024-12-14] MEDS: ONDANSETRON 4 MG ODT STARTER PACK 2 TAB BTL PO STA (17:38)
[2024-12-14] MEDS: ACET/COD 300 MG/30 MG STARTER PACK 6 TAB BTL PO STA (17:39)
[2024-12-14] MEDS: PROCHLORPERAZINE 5 MG TAB PO STA (17:50)
== END 2024-12-14 18:02 | disposition home or self-care (01) ==
LOC: EC 15:51
DX: R51.9 Headache, unspecified (principal); F17.200 Nicotine dependence, unspecified, uncomplicated; Z91.018 Allergy to other foods; Z88.5 Allergy status to narcotic agent; Z88.1 Allergy status to other antibiotic agents; Z88.7 Allergy status to serum and vaccine; Z88.8 Allergy status to other drugs, medicaments and biological substances; Z91.040 Latex allergy status; Z91.048 Other nonmedicinal substance allergy status
CPT/HCPCS: 99283; S0183; S0119

== ENCOUNTER 2024-12-15 19:07 | Emergency (ER) | payer OTHER ==
--- NOTE | 2024-12-15 19:21 | ED ---
Alcohol HPI - General Stated Complaint: Back pain, ETOH Time Seen by Provider: 12/15/24 19:09 Source: RN notes reviewed, old records reviewed Limitations: no limitations - History of Present Illness Initial Comments: This is a 64-year-old female who presents with alcohol intoxication. Patient was seen here yesterday for similar complaining of headache patient was seen at [facility] in between those 2 visits and is again here today. 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(s) Previous Visits for Alcohol Intoxication?: Yes Recent Trauma: Yes Associated Symptoms: denies other symptoms Treatments Prior to Arrival: none Chronic Alcohol Use: Yes - Related Data Home Medications Medication Instructions Recorded Confirmed Budesonide/Formoterol Fumarate 2 puff INHALATION RT-HS 07/29/23 09/10/24 [Symbicort 160-4.5 Mcg Inhaler] Multivitamin [Multivitamins Adult 2 tab PO HS 12/04/23 09/10/24 Gummies] Brimonidine Tartrate [Alphagan P 1 drop BOTH EYES BID 02/02/24 09/10/24 0.2% Ophth Soln] Fluticasone Nasal [place] [Flonase 2 spr EA NOSTRIL HS 02/02/24 09/10/24 Nasal [place]] Artificial Tears-Hypromellose 1 drop BOTH EYES TID PRN 03/10/24 09/10/24 [Artificial Tear Drops] Potassium Chloride ER [K-Dur 20] 20 meq PO HS 03/15/24 09/10/24 Cholecalciferol (Vitamin D3) 50 mcg PO HS 05/03/24 09/10/24 [Vitamin D3 (50 Mcg = 2000 Iu)] Ferrous Sulfate [Iron (65 MG 325 mg PO HS 05/03/24 09/10/24 Elemental)] Ipratropium-Albuterol Nebulize 3 ml INHALATION RT-QID PRN 05/24/24 09/10/24 [Duoneb 0.5 mg-3 mg/3 ml Soln] Albuterol Sulfate [Ventolin HFA] 1 - 2 puff INHALATION RT-Q6H PRN 09/10/24 09/10/24 Previous Rx's Medication Instructions Recorded Aspirin EC [Ecotrin Low Dose] 81 mg PO HS #90 tab 05/25/24 Atorvastatin [Lipitor] 80 mg PO HS #90 tab 05/25/24 Isosorbide Mononitrate ER [Imdur] 30 mg PO HS #90 tab 05/25/24 Magnesium Oxide [Mag-Ox] 400 mg PO HS #90 tab 05/25/24 Metoprolol Succinate (ER) [Toprol 50 mg PO HS #90 tab 05/25/24 XL] Ticagrelor [Brilinta] 90 mg PO HS #90 tab 05/25/24 Cephalexin [Keflex] 500 mg PO Q12HR 7 Days #14 cap 09/11/24 Losartan [Cozaar] 25 mg PO DAILY #30 tab 09/11/24 Potassium Chloride ER [K-Dur 20] 20 meq PO BID #10 tab 10/29/24 chlordiazePOXIDE HCl [Librium] 25 mg PO TID 3 Days #9 capsule 11/09/24 LORazepam [Ativan] 2 mg PO TID 3 Days #9 tab 11/10/24 Allergies Allergy/AdvReac Type Severity Reaction Status Date / Time [place] And Derivatives Allergy Rash/Hives Verified 12/14/24 16:12 [[place]] latex Allergy Rash/Hives Verified 12/14/24 16:12 adhesive tape AdvReac Rash/Hives Verified 12/14/24 16:12 amlodipine [From Norvasc] AdvReac Cough Verified 12/14/24 16:12 cinnamon AdvReac Nausea Verified 12/14/24 16:12 clonidine AdvReac "almost Verified 12/14/24 16:12 passed out" gabapentin AdvReac Dizziness Verified 12/14/24 16:12 Influenza Virus Vaccines AdvReac Nausea & Verified 12/14/24 16:12 Vomiting lisinopril AdvReac Cough Verified 12/14/24 16:12 morphine AdvReac Nausea & Verified 12/14/24 16:12 Vomiting sucralfate [From Carafate] AdvReac Abdominal Verified 12/14/24 16:12 Pain tomato AdvReac Diarrhea Verified 12/14/24 16:12 Review of Systems ROS Statement: Those systems with pertinent positive or pertinent negative responses have been documented in the HPI. ROS Other: All systems not noted in ROS Statement are negative. Past Medical History Past Medical History: Asthma, Coronary Artery Disease (CAD), COPD, CVA/TIA, Eye Disorder, Hypertension, Liver Disease, Myocardial Infarction (CA), Seizure Disorder, Vascular Disorder Additional Past Medical History / Comment(s): Pt recently admitted to [facility] for diarrhea, ETOH abuse. 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 Past Psychological History: Anxiety, Depression Smoking Status: Current every day smoker Past Alcohol Use History: Abuse, Daily, Heavy Past Drug Use History: Marijuana - Past Family History Mother Family Medical History: Cancer, Congestive Heart Failure (CHF), Coronary Artery Disease (CAD), Hyperlipidemia Additional Family Medical History / Comment(s): Mother at age 85 from lung cancer. Father Family Medical History: Cancer, COPD Additional Family Medical History / Comment(s): Father at age 63 from lung cancer. Brother(s) Additional Family Medical History / Comment(s): Patient has a total of 7 siblings. 5 are alive without any major medical problems she is aware of. 2 siblings have one from alcohol abuse and 1. Coronary artery disease. Daughter(s) Family Medical History: No Reported History Additional Family Medical History / Comment(s): Patient has one daughter with no major medical problems. General Exam General appearance: alert, in no apparent distress Head exam: Present: atraumatic, normocephalic, normal inspection Eye exam: Present: normal appearance, PERRL, EOMI. Absent: scleral icterus, conjunctival injection, periorbital swelling ENT exam: Present: normal exam, mucous membranes moist Neck exam: Present: normal inspection. Absent: tenderness, meningismus, lymphadenopathy Respiratory exam: Present: normal lung sounds bilaterally. Absent: respiratory distress, wheezes, rales, rhonchi, stridor Cardiovascular Exam: Present: regular rate, normal rhythm, normal heart sounds. Absent: systolic murmur, diastolic murmur, rubs, gallop, clicks GI/Abdominal exam: Present: soft, normal bowel sounds. Absent: distended, tenderness, guarding, rebound, rigid Extremities exam: Present: normal inspection, full ROM, normal capillary refill. Absent: tenderness, pedal edema, joint swelling, calf tenderness Back exam: Present: normal inspection Neurological exam: Present: alert, oriented X3, CN II-XII intact Psychiatric exam: Present: normal affect, normal mood Skin exam: Present: warm, dry, intact, normal color. Absent: rash Course Vital Signs 12/15/24 19:18 Temperature 98.6 F Pulse Rate 76 Respiratory 20 Rate Blood Pressure 122/74 O2 Sat by Pulse 98 Oximetry - Reevaluation(s) Reevaluation #1: 12/15/24 20:22 Medical records reviewed Reevaluation #2: 12/15/24 20:22 Patient informed she will not be getting treatment severe pain medications that she was given that yesterday and she does not remember being given those Reevaluation #3: 12/15/24 20:23 Patient informed of results and questions answered Reevaluation #4: Was pt. sent in by a medical professional or institution (, PA, PUGGER HELPER, urgent care, hospital, or care home...) When possible be specific @ -no Did you speak to anyone other than the patient for history (EMS, parent, family, police, friend...)? What history was obtained from this source @ -no Did you review nursing and triage notes (agree or disagree)? Why? @ -agree Are old charts reviewed (outside hosp., previous admission, EMS record, old EKG, old radiological studies, urgent care reports/EKG's, care home records)? Report findings @ -yes Differential Diagnosis (chest pain, altered mental status, abdominal pain women, abdominal pain men, vaginal bleeding, weakness, fever, dyspnea, syncope, headache, dizziness, GI bleed, back pain, seizure, CVA, palpatations, mental health, musculoskeletal)? @ -prior EKG interpreted by me (3pts min.). @ -yes X-rays interpreted by me (1pt min.). @ -yes negative for acute disease CT interpreted by me (1pt min.). @ -no U/S interpreted by me (1pt. min.). @ -no What testing was considered but not performed or refused? (CT, X-rays, U/S, labs)? Why? @ -none What meds were considered but not given or refused? Why? @ -none Did you discuss the management of the patient with other professionals (professionals i.e. Dr., PA, PUGGER HELPER, lab, RT, psych nurse, social media senior associate, stunt person, teacher, environmental compliance officer, case therapist)? Give summary @ -no Was smoking cessation discussed for >3mins.? @ -no Was critical care preformed (if so, how long)? @ -no Were there social determinants of health that impacted care today? How? (Homelessness, low income, unemployed, alcoholism, drug addiction, tr ansportation, low edu. Level, literacy, decrease access to med. care, [facility], rehab)? @ -none Was there de-escalation of care discussed even if they declined (Discuss DNR or withdrawal of care, Hospice)? DNR status @ -no What co-morbidities impacted this encounter? (DM, HTN, Smoking, COPD, CAD, Cancer, CVA, ARF, Chemo, Hep., AIDS, mental health diagnosis, sleep apnea, morbid obesity)? @ -none Was patient admitted / discharged? Hospital course, mention meds given and route, prescriptions, significant lab abnormalities, going to OR and other pertinent info. @ - Undiagnosed new problem with uncertain prognosis? @ -no Drug Therapy requiring intensive monitoring for toxicity (Heparin, Nitro, Insulin, Cardizem)? @ -no Were any procedures done? @ -no Diagnosis/symptom? @ - Acute, or Chronic, or Acute on Chronic? @ -Acute Uncomplicated (without systemic symptoms) or Complicated (systemic symptoms)? @ -Complicated Side effects of treatment? @ -no Exacerbation, Progression, or Severe Exacerbation? @ -exacerbation Poses a threat to life or bodily function? How? (Chest pain, [place], CA, pneumonia, PE, COPD, DKA, ARF, appy, cholecystitis, CVA, Diverticulitis, Homicidal, Suicidal, threat to staff... and all critical care pts) @ -yes Reevaluation #5: Differential Headache: Migraine, tension, cluster, carbon monoxide, central venous thrombosis, pension karma temporal arteritis, acute closure glaucoma, intercranial hemorrhage, mastoiditis, sinusitis, head injury, this is not meant to be an all-inclusive list. Differential Altered Mental Status: Hypoglycemia, DKA, hypercapnia, ETOH, overdose, CO poisoning, trauma, myxedema coma, HTN encephalopathy, infection, encephalitis, psychosis, intercranial hemorrhage, hepatic encephalopathy, meningitis, CVA, this is not meant to be an all-inclusive list Medical Decision Making - Medical Decision Making 64 female this patient will be discharged home for significant alcohol intoxication Disposition Clinical Impression: Alcohol intoxication Disposition: HOME SELF-CARE Condition: Fair Instructions (If sedation given, give patient instructions): Alcohol Intoxication (ED), Abuse of Alcohol (ED) Is patient prescribed a controlled substance at d/c from ED?: No Referrals: None,Stated [Primary Care Provider] - 1-2 days Time of Disposition: 21:00
[2024-12-15 19:23] VITALS: TEMP 98.6
[2024-12-15 20:33] VITALS: BP 127/74; PULSE 81; RESP 18
== END 2024-12-15 20:41 | disposition home or self-care (01) ==
LOC: EC 19:07
DX: F10.129 Alcohol abuse with intoxication, unspecified (principal); F17.200 Nicotine dependence, unspecified, uncomplicated; Z88.5 Allergy status to narcotic agent; Z88.7 Allergy status to serum and vaccine; Z91.09 Other allergy status, other than to drugs and biological substances; Z91.018 Allergy to other foods; Z91.048 Other nonmedicinal substance allergy status; Z91.040 Latex allergy status; Z88.8 Allergy status to other drugs, medicaments and biological substances
CPT/HCPCS: 99283

== ENCOUNTER 2025-01-04 16:30 | Emergency (ER) | payer OTHER ==
[2025-01-04 16:55] VITALS: RESP 18; TEMP 97.9
--- NOTE | 2025-01-04 17:00 | ED ---
Recheck HPI - General Chief Complaint: Back Pain/Injury Stated Complaint: body pain Time Seen by Provider: 01/04/25 16:46 Source: patient, EMS, RN notes reviewed, old records reviewed Mode of arrival: EMS Limitations: no limitations, altered mental status - History of Present Illness Initial Comments: This is a 64-year-old female to the ER today. She presents to us for evaluation of body aches pains back pain chronic back pain history of headaches. Patient states she was just discharged from outside facility, [facility] 3 days ago and has since been feeling worse. She admits to decreased appetite decreased eating not taking medications and the pain medication she has at home not working for pain pain is mainly related to her back MD Complaint: medication refill request Returns Today for: persistent/worsening pain related to initial visit Symptoms Since Prior Visit: worsening pain Treatments Prior to Arrival: Given Pain Meds on - Related Data Home Medications Medication Instructions Recorded Confirmed Budesonide/Formoterol Fumarate 2 puff INHALATION RT-BID 07/29/23 01/08/25 [Symbicort 160-4.5 Mcg Inhaler] Albuterol Sulfate [Ventolin HFA] 1 - 2 puff INHALATION RT-Q6H PRN 09/10/24 01/08/25 Albuterol Nebulized [Ventolin 2.5 mg INHALATION RT-Q6H PRN 01/08/25 01/08/25 Nebulized] Nicotine 21Mg/24Hr Patch [Habitrol] 1 patch TRANSDERM DAILY 01/08/25 01/08/25 Pantoprazole [Protonix] See Taper PO DIRECTED 01/08/25 01/08/25 Previous Rx's Medication Instructions Recorded Aspirin EC [Ecotrin Low Dose] 81 mg PO HS #90 tab 05/25/24 Isosorbide Mononitrate ER [Imdur] 30 mg PO HS #90 tab 05/25/24 Metoprolol Succinate (ER) [Toprol 50 mg PO HS #90 tab 05/25/24 XL] Allergies Allergy/AdvReac Type Severity Reaction Status Date / Time Lincoln And Derivatives Allergy Rash/Hives Verified 01/08/25 10:16 [Lincoln] latex Allergy Rash/Hives Verified 01/08/25 10:16 adhesive tape AdvReac Rash/Hives Verified 01/08/25 10:16 amlodipine [From Norvasc] AdvReac Cough Verified 01/08/25 10:16 cinnamon AdvReac Nausea Verified 01/08/25 10:16 clonidine AdvReac "almost Verified 01/08/25 10:16 passed out" gabapentin AdvReac Dizziness Verified 01/08/25 10:16 Influenza Virus Vaccines AdvReac Nausea & Verified 01/08/25 10:16 Vomiting lisinopril AdvReac Cough Verified 01/08/25 10:16 morphine AdvReac Nausea & Verified 01/08/25 10:16 Vomiting sucralfate [From Carafate] AdvReac Abdominal Verified 01/08/25 10:16 Pain tomato AdvReac Diarrhea Verified 01/08/25 10:16 Review of Systems ROS Statement: Those systems with pertinent positive or pertinent negative responses have been documented in the HPI. ROS Other: All systems not noted in ROS Statement are negative. Past Medical History Past Medical History: Asthma, Coronary Artery Disease (CAD), COPD, CVA/TIA, Eye Disorder, Hypertension, Liver Disease, Myocardial Infarction ([place]), Seizure Disorder, Vascular Disorder Additional Past Medical History / Comment(s): Pt recently admitted to [facility] for diarrhea, ETOH abuse. 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 Past Psychological History: Anxiety, Depression Smoking Status: Current every day smoker Past Alcohol Use History: Abuse, Daily, Heavy Past Drug Use History: Marijuana - Past Family History Mother Family Medical History: Cancer, Congestive Heart Failure (CHF), Coronary Artery Disease (CAD), Hyperlipidemia Additional Family Medical History / Comment(s): Mother at age 85 from lung cancer. Father Family Medical History: Cancer, COPD Additional Family Medical History / Comment(s): Father at age 63 from lung cancer. Brother(s) Additional Family Medical History / Comment(s): Patient has a total of 7 siblings. 5 are alive without any major medical problems she is aware of. 2 siblings have one from alcohol abuse and 1. Coronary artery disease. Daughter(s) Family Medical History: No Reported History Additional Family Medical History / Comment(s): Patient has one daughter with no major medical problems. General Exam Limitations: no limitations General appearance: alert, in no apparent distress, appears intoxicated Head exam: Present: atraumatic, normocephalic, normal inspection Eye exam: Present: normal appearance, PERRL, EOMI. Absent: scleral icterus, conjunctival injection, periorbital swelling ENT exam: Present: normal exam, mucous membranes moist Neck exam: Present: normal inspection. Absent: tenderness, meningismus, lymphadenopathy Respiratory exam: Present: normal lung sounds bilaterally. Absent: respiratory distress, wheezes, rales, rhonchi, stridor Cardiovascular Exam: Present: regular rate, normal rhythm, normal heart sounds. Absent: systolic murmur, diastolic murmur, rubs, gallop, clicks GI/Abdominal exam: Present: soft, normal bowel sounds. Absent: distended, tenderness, guarding, rebound, rigid Extremities exam: Present: normal inspection, full ROM, normal capillary refill. Absent: tenderness, pedal edema, joint swelling, calf tenderness Back exam: Present: normal inspection Neurological exam: Present: alert, oriented X3, CN II-XII intact Psychiatric exam: Present: normal affect, normal mood Skin exam: Present: warm, dry, intact, normal color. Absent: rash Course Vital Signs 01/04/25 01/04/25 01/04/25 16:48 18:38 19:47 Temperature 97.9 F Pulse Rate 73 83 89 Respiratory 18 18 18 Rate Blood Pressure 87/52 128/82 128/85 O2 Sat by Pulse 97 94 L 99 Oximetry - Reevaluation(s) Reevaluation #1: 01/04/25 17:00 Medical records reviewed Multiple ER visits for complaints related to pain usually followed with intoxication Reevaluation #2: Patient symptoms continue to improve here in the ER Patient's pain is controlled Reevaluation #3: Patient informed of results and questions answered Reevaluation #4: Was pt. sent in by a medical professional or institution (YESSY Lloyd, [employer], urgent care, hospital, or fci...) When possible be specific @ -no Did you speak to anyone other than the patient for history (EMS, parent, family, police, friend...)? What history was obtained from this source @ -no Did you review nursing and triage notes (agree or disagree)? Why? @ -agree Are old charts reviewed (outside hosp., previous admission, EMS record, old EKG, old radiological studies, urgent care reports/EKG's, fci records)? Report findings @ -yes Differential Diagnosis (chest pain, altered mental status, abdominal pain women, abdominal pain men, vaginal bleeding, weakness, fever, dyspnea, syncope, headache, dizziness, GI bleed, back pain, seizure, CVA, palpatations, mental he alth, musculoskeletal)? @ -prior EKG interpreted by me (3pts min.). @ -no X-rays interpreted by me (1pt min.). @ -no CT interpreted by me (1pt min.). @ -no U/S interpreted by me (1pt. min.). @ -no What testing was considered but not performed or refused? (CT, X-rays, U/S, labs)? Why? @ -none What meds were considered but not given or refused? Why? @ -none Did you discuss the management of the patient with other professionals (professionals i.e. YESSY Lloyd, [employer], lab, RT, psych nurse, home health care social worker, boat camp operator, teacher, quality officer, case resource manager)? Give summary @ -no Was smoking cessation discussed for >3mins.? @ -no Was critical care preformed (if so, how long)? @ -no Were there social determinants of health that impacted care today? How? (Homelessness, low income, unemployed, alcoholism, drug addiction, transportation, low edu. Level, literacy, decrease access to med. care, chcf, re hab)? @ -none Was there de-escalation of care discussed even if they declined (Discuss DNR or withdrawal of care, Hospice)? DNR status @ -no What co-morbidities impacted this encounter? (DM, HTN, Smoking, COPD, CAD, Cancer, CVA, ARF, Chemo, Hep., AIDS, mental health diagnosis, sleep apnea, morbid obesity)? @ -none Was patient admitted / discharged? Hospital course, mention meds given and route, prescriptions, significant lab abnormalities, going to OR and other pertinent info. @ - 64 female well-known to this emergency department coming in for alcohol intoxication and chronic pain. Patient does have lab testing here in the ER which was normal and she can be discharged home Discharge chronic pain and alcohol intoxication Undiagnosed new problem with uncertain prognosis? @ -no Drug Therapy requiring intensive monitoring for toxicity (Heparin, Nitro, Insulin, Cardizem)? @ -no Were any procedures done? @ -no Diagnosis/symptom? @ - Acute, or Chronic, or Acute on Chronic? @ -Acute Uncomplicated (without systemic symptoms) or Complicated (systemic symptoms)? @ -Complicated Side effects of treatment? @ -no Exacerbation, Progression, or Severe Exacerbation? @ -exacerbation Poses a threat to life or bodily function? How? (Chest pain, [place], [place], pneumonia, PE, COPD, DKA, ARF, appy, cholecystitis, CVA, Diverticulitis, Homicidal, Suicidal, threat to staff... and all critical care pts) @ -yes abuse of alcohol Reevaluation #5: Differential Back Pain: Strain, zoster, cauda equina syndrome, epidural abscess, vertebral osteomyelitis, discitis, fracture, subluxation, disc herniation, DJD, spinal stenosis, dissection, AAA, pancreatitis, peptic ulcer disease, pyelonephritis, kidney stone, this is not meant to be an all-inclusive list. - Consultations Consultation #1: Spoke with [facility], patient states she was discharged there but she has not been there in 2 weeks Medical Decision Making - Medical Decision Making 64 female well-known to this emergency department coming in for alcohol intoxication and chronic pain. Patient does have lab testing here in the ER which was normal and she can be discharged home - Lab Data Result diagrams: 01/04/25 18:01/04/25 18: Lab Results 01/04/25 01/04/25 01/04/25 Range/Units 18:01 18: 18: WBC 11.3 H (3.8-10.6) k/uL RBC 4.81 (3.80-5.40) m/uL Hgb 13.3 (11.4-16.0) gm/dL Hct 42.2 (34.0-46.0) % MCV 87.7 D (80.0-100.0) fL MCH 27.7 (25.0-35.0) pg MCHC 31.6 (31.0-37.0) g/dL RDW 19.1 H (11.5-15.5) % Plt Count 443 D (150-450) k/uL MPV 7.3 Neutrophils % 74 % Lymphocytes % 16 % Monocytes % 5 % Eosinophils % 1 % Basophils % 1 % Neutrophils # 8.3 H (1.3-7.7) k/uL Lymphocytes # 1.8 (1.0-4.8) k/uL Monocytes # 0.5 (0-1.0) k/uL Eosinophils # 0.1 (0-0.7) k/uL Basophils # 0.2 (0-0.2) k/uL Hypochromasia Slight Anisocytosis Slight PT 10.6 (10.0-12.5) sec INR 0.9 (<1.2) APTT 22.8 (22.0-30.0) sec Sodium 140 (137-145) mmol/L Potassium 3.6 (3.5-5.1) mmol/L Chloride 102 (98-107) mmol/L Carbon Dioxide 21 L (22-30) mmol/L Anion Gap 17 mmol/L BUN 9 (7-17) mg/dL Creatinine 0.69 (0.52-1.04) mg/dL Est GFR (CKD-EPI)AfAm >90 (>60 ml/min/1.73 sqM) Est GFR (CKD-EPI)NonAf >90 (>60 ml/min/1.73 sqM) Glucose 85 (74-99) mg/dL Lactic Ac Sepsis Rflx Plasma Lactic Acid Camron (0.7-2.0) mmol/L Calcium 9.8 (8.4-10.2) mg/dL Phosphorus 4.0 (2.5-4.5) mg/dL Magnesium 1.9 (1.6-2.3) mg/dL Total Bilirubin 0.6 (0.2-1.3) mg/dL AST 211 H (14-36) U/L ALT 70 H (4-34) U/L Alkaline Phosphatase 123 (38-126) U/L Troponin I (0.000-0.034) ng/mL Total Protein 7.5 (6.3-8.2) g/dL Albumin 4.7 (3.5-5.0) g/dL Serum Alcohol 242 H* mg/dL 01/04/25 01/04/25 01/04/25 Range/Units 18:01 18:01 18:46 WBC (3.8-10.6) k/uL RBC (3.80-5.40) m/uL Hgb (11.4-16.0) gm/dL Hct (34.0-46.0) % MCV (80.0-100.0) fL MCH (25.0-35.0) pg MCHC (31.0-37.0) g/dL RDW (11.5-15.5) % Plt Count (150-450) k/uL MPV Neutrophils % % Lymphocytes % % Monocytes % % Eosinophils % % Basophils % % Neutrophils # (1.3-7.7) k/uL Lymphocytes # (1.0-4.8) k/uL Monocytes # (0-1.0) k/uL Eosinophils # (0-0.7) k/uL Basophils # (0-0.2) k/uL Hypochromasia Anisocytosis PT (10.0-12.5) sec INR (<1.2) APTT (22.0-30.0) sec Sodium (137-145) mmol/L Potassium (3.5-5.1) mmol/L Chloride (98-107) mmol/L Carbon Dioxide (22-30) mmol/L Anion Gap mmol/L BUN (7-17) mg/dL Creatinine (0.52-1.04) mg/dL Est GFR (CKD-EPI)AfAm (>60 ml/min/1.73 sqM) Est GFR (CKD-EPI)NonAf (>60 ml/min/1.73 sqM) Glucose (74-99) mg/dL Lactic Ac Sepsis Rflx Y Plasma Lactic Acid Camron 2.9 H* (0.7-2.0) mmol/L Calcium (8.4-10.2) mg/dL Phosphorus (2.5-4.5) mg/dL Magnesium (1.6-2.3) mg/dL Total Bilirubin (0.2-1.3) mg/dL AST (14-36) U/L ALT (4-34) U/L Alkaline Phosphatase (38-126) U/L Troponin I 0.018 (0.000-0.034) ng/mL Total Protein (6.3-8.2) g/dL Albumin (3.5-5.0) g/dL Serum Alcohol mg/dL Disposition Clinical Impression: Alcohol intoxication, Anxiety, Weakness, Abdominal pain, Mechanical back pain Disposition: HOME SELF-CARE Condition: Fair Instructions (If sedation given, give patient instructions): Acute Low Back Pain (ED) Is patient prescribed a controlled substance at d/c from ED?: No Referrals: None,Stated [Primary Care Provider] - 1-2 days Time of Disposition: 19:00
[2025-01-04] MEDS: HYDROmorphone 0.5 MG/0.5 ML SYRINGE IVP STA (18:09)
[2025-01-04] MEDS: ONDANSETRON 4 MG/2 ML VIAL IVP STA (18:10)
[2025-01-04] MEDS: SODIUM CHLORIDE 0.9% 1,000 ML IV STA (18:12)
[2025-01-04] MEDS: SODIUM CHLORIDE 0.9% 500 ML 500 ML IV STA (18:12)
[2025-01-04 18:17] LABS: Anisocytosis Slight; Basophils # (A) 0.2 k/uL (0-0.2); Basophils % (A) 1 %; Eosinophils # (A) 0.1 k/uL (0-0.7); Eosinophils % (A) 1 %; HCT 42.2 % (34.0-46.0); HGB 13.3 gm/dL (11.4-16.0); Hypochromasia Slight; Lymphocytes # (A) 1.8 k/uL (1.0-4.8); Lymphocytes % (A) 16 %; MCH 27.7 pg (25.0-35.0); MCHC 31.6 g/dL (31.0-37.0); Mean Platelet Volume 7.3; Monocytes # (A) 0.5 k/uL (0-1.0); Monocytes % (A) 5 %; Neutrophils # (A) 8.3 k/uL (1.3-7.7); Neutrophils % (A) 74 %; RBC 4.81 m/uL (3.80-5.40); RDW 19.1 % (11.5-15.5); WBC 11.3 k/uL (3.8-10.6)
[2025-01-04 18:21] LABS: MCV 87.7 fL (80.0-100.0); Platelet Count 443 k/uL (150-450)
[2025-01-04 18:22] LABS: INR 0.9 (<1.2); Partial Thromboplastin Time 22.8 sec (22.0-30.0); Prothrombin Time 10.6 sec (10.0-12.5)
[2025-01-04 18:34] LABS: ALT 70 U/L (4-34); AST 211 U/L (14-36); African American GFR (CKD) >90 (>60 ml/min/1.73 sqM); Albumin 4.7 g/dL (3.5-5.0); Alkaline Phosphatase 123 U/L (38-126); Anion Gap 17 mmol/L; Blood Urea Nitrogen 9 mg/dL (7-17); Calcium 9.8 mg/dL (8.4-10.2); Carbon Dioxide 21 mmol/L (22-30); Chloride 102 mmol/L (98-107); Glucose 85 mg/dL (74-99); Magnesium 1.9 mg/dL (1.6-2.3); Non-African American GFR(CKD) >90 (>60 ml/min/1.73 sqM); Potassium 3.6 mmol/L (3.5-5.1); Sodium 140 mmol/L (137-145); Total Bilirubin 0.6 mg/dL (0.2-1.3); Total Protein 7.5 g/dL (6.3-8.2)
[2025-01-04 18:46] LABS: Alcohol 242 mg/dL
[2025-01-04 19:50] VITALS: BP 128/85; PULSE 89
== END 2025-01-04 20:02 | disposition home or self-care (01) ==
LOC: EC 16:30
DX: R53.1 Weakness (principal); F10.129 Alcohol abuse with intoxication, unspecified; F41.9 Anxiety disorder, unspecified; R10.9 Unspecified abdominal pain; M54.9 Dorsalgia, unspecified; F17.200 Nicotine dependence, unspecified, uncomplicated; Y90.8 Blood alcohol level of 240 mg/100 ml or more
CPT/HCPCS: 36415; 80053; 83605; 83735; 84100; 84484; 85025; 85610; 85730; 99283; 96374; 96375; 96361; G0480; J2405; J1171; 80320

== ENCOUNTER 2025-01-07 21:12 | Observation (INO) | payer OTHER ==
[2025-01-08 02:48] LABS: Anisocytosis Slight; Basophils # (A) 0.1 k/uL (0-0.2); Basophils % (A) 1 %; Eosinophils % (A) 0 %; HCT 40.6 % (34.0-46.0); Hypochromasia Marked; Lymphocytes # (A) 0.6 k/uL (1.0-4.8); Lymphocytes % (A) 5 %; MCH 26.8 pg (25.0-35.0); MCHC 29.6 g/dL (31.0-37.0); MCV 90.5 fL (80.0-100.0); Mean Platelet Volume 7.2; Monocytes # (A) 0.3 k/uL (0-1.0); Monocytes % (A) 2 %; Neutrophils # (A) 10.5 k/uL (1.3-7.7); Neutrophils % (A) 91 %; Platelet Count 324 k/uL (150-450); RBC 4.48 m/uL (3.80-5.40); RDW 18.7 % (11.5-15.5); WBC 11.5 k/uL (3.8-10.6)
[2025-01-08 02:56] LABS: INR 1.1 (<1.2); Partial Thromboplastin Time 22.7 sec (22.0-30.0); Prothrombin Time 11.8 sec (10.0-12.5)
[2025-01-08 03:06] LABS: Influenza A Not Detected (Not Detectd); Influenza B Not Detected (Not Detectd); RSV Not Detected (Not Detectd)
[2025-01-08 03:06] LABS: ALT 49 U/L (4-34); AST 95 U/L (14-36); African American GFR (CKD) 84 (>60 ml/min/1.73 sqM); Albumin 4.6 g/dL (3.5-5.0); Alkaline Phosphatase 136 U/L (38-126); Anion Gap 24 mmol/L; Blood Urea Nitrogen 9 mg/dL (7-17); Calcium 9.7 mg/dL (8.4-10.2); Carbon Dioxide 17 mmol/L (22-30); Chloride 100 mmol/L (98-107); Glucose 66 mg/dL (74-99); Lipase 74 U/L (23-300); Magnesium 1.8 mg/dL (1.6-2.3); Non-African American GFR(CKD) 73 (>60 ml/min/1.73 sqM); Potassium 3.8 mmol/L (3.5-5.1); Sodium 141 mmol/L (137-145); Total Bilirubin 0.8 mg/dL (0.2-1.3); Total Protein 7.2 g/dL (6.3-8.2)
[2025-01-08 03:21] VITALS: TEMP 98
--- NOTE | 2025-01-08 04:08 | XR ---
EXAM: XR Chest, 2 Views CLINICAL HISTORY: ITS.REASON XR Reason: Chest Pain TECHNIQUE: Frontal and lateral views of the chest. COMPARISON: X-ray dated 11/20/2024. FINDINGS: Lungs: Unremarkable. No consolidation. Pleural space: Unremarkable. No pneumothorax. Heart: Mild enlargement of the cardiac silhouette. Mediastinum: Unremarkable. Normal mediastinal contour. Bones/joints: Degenerative changes are seen within the spine and shoulders. No acute fracture. Vasculature: Calcifications overlie the aorta. IMPRESSION: No acute findings in the chest.
[2025-01-08] MEDS ORDERED: NALOXONE 0.4 MG/ML 1 ML VIAL IV PRN (04:45)
--- NOTE | 2025-01-08 04:47 | ED ---
Chest Pain HPI - General Source: patient Mode of arrival: wheelchair Limitations: no limitations <Betsy Albarran - Last Filed: 01/10/25 16:38> <Adrian Novak - Last Filed: 01/11/25 04:57> - General Chief Complaint: Chest Pain Stated Complaint: Chest pain, ETOH Time Seen by Provider: 01/08/25 01:21 - History of Present Illness Initial Comments: 64-year-old female presenting with chief complaint of chest pain. Patient is well-known to our ER. History of alcohol use disorder. Patient states that this is a pressure-like pain. No known alleviating or aggravating factors. Admits to shortness of breath. No cough congestion or sore throat. No abdominal pain, nausea, vomiting. No lower extremity swelling. Known history of CAD with chronic total occlusion of the RCA (Betsy Albarran) - Related Data Home Medications Medication Instructions Recorded Confirmed Budesonide/Formoterol Fumarate 2 puff INHALATION RT-BID 07/29/23 01/08/25 [Symbicort 160-4.5 Mcg Inhaler] Albuterol Sulfate [Ventolin HFA] 1 - 2 puff INHALATION RT-Q6H PRN 09/10/24 01/08/25 Albuterol Nebulized [Ventolin 2.5 mg INHALATION RT-Q6H PRN 01/08/25 01/08/25 Nebulized] Nicotine 21Mg/24Hr Patch [Habitrol] 1 patch TRANSDERM DAILY 01/08/25 01/08/25 Pantoprazole [Protonix] See Taper PO DIRECTED 01/08/25 01/08/25 Previous Rx's Medication Instructions Recorded Aspirin EC [Ecotrin Low Dose] 81 mg PO HS #90 tab 05/25/24 Isosorbide Mononitrate ER [Imdur] 30 mg PO HS #90 tab 05/25/24 Metoprolol Succinate (ER) [Toprol 50 mg PO HS #90 tab 05/25/24 XL] Allergies Allergy/AdvReac Type Severity Reaction Status Date / Time [place] And Derivatives Allergy Rash/Hives Verified 01/08/25 10:16 [[place]] latex Allergy Rash/Hives Verified 01/08/25 10:16 adhesive tape AdvReac Rash/Hives Verified 01/08/25 10:16 amlodipine [From Norvasc] AdvReac Cough Verified 01/08/25 10:16 cinnamon AdvReac Nausea Verified 01/08/25 10:16 clonidine AdvReac "almost Verified 01/08/25 10:16 passed out" gabapentin AdvReac Dizziness Verified 01/08/25 10:16 Influenza Virus Vaccines AdvReac Nausea & Verified 01/08/25 10:16 Vomiting lisinopril AdvReac Cough Verified 01/08/25 10:16 morphine AdvReac Nausea & Verified 01/08/25 10:16 Vomiting sucralfate [From Carafate] AdvReac Abdominal Verified 01/08/25 10:16 Pain tomato AdvReac Diarrhea Verified 01/08/25 10:16 Review of Systems ROS Other: All systems not noted in ROS Statement are negative. <Betsy Albarran - Last Filed: 01/10/25 16:38> ROS Other: All systems not noted in ROS Statement are negative. <Adrian Novak - Last Filed: 01/11/25 04:57> ROS Statement: Those systems with pertinent positive or pertinent negative responses have been documented in the HPI. Past Medical History Past Medical History: Asthma, Coronary Artery Disease (CAD), COPD, CVA/TIA, Eye Disorder, Hypertension, Liver Disease, Myocardial Infarction ([place]), Seizure Disorder, Vascular Disorder Additional Past Medical History / Comment(s): Pt recently admitted to [facility] for diarrhea, ETOH abuse. 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 Past Psychological History: Anxiety, Depression Smoking Status: Current every day smoker Past Alcohol Use History: Abuse, Daily, Heavy Past Drug Use History: Marijuana - Past Family History Mother Family Medical History: Cancer, Congestive Heart Failure (CHF), Coronary Artery Disease (CAD), Hyperlipidemia Additional Family Medical History / Comment(s): Mother at age 85 from lung cancer. Father Family Medical History: Cancer, COPD Additional Family Medical History / Comment(s): Father at age 63 from lung cancer. Brother(s) Additional Family Medical History / Comment(s): Patient has a total of 7 siblings. 5 are alive without any major medical problems she is aware of. 2 siblings have one from alcohol abuse and 1. Coronary artery disease. Daughter(s) Family Medical History: No Reported History Additional Family Medical History / Comment(s): Patient has one daughter with no major medical problems. <Betsy Albarran - Last Filed: 01/10/25 16:38> General Exam Limitations: no limitations General appearance: alert, in no apparent distress, appears intoxicated Head exam: Present: atraumatic, normocephalic, normal inspection Eye exam: Present: normal appearance, EOMI Neck exam: Present: normal inspection. Absent: meningismus Respiratory exam: Present: normal lung sounds bilaterally. Absent: respiratory distress, wheezes, rales, rhonchi, stridor Cardiovascular Exam: Present: regular rate, normal rhythm, normal heart sounds. Absent: systolic murmur, diastolic murmur, rubs, gallop, clicks Neurological exam: Present: alert, oriented X3 Psychiatric exam: Present: normal affect, normal mood Skin exam: Present: warm, dry, normal color <Betsy Albarran - Last Filed: 01/10/25 16:38> Course Vital Signs 01/07/25 01/08/25 01/08/25 21:14 03:09 08:00 Temperature 97.5 F L 98.0 F Pulse Rate 60 75 Pulse Rate [ 76 Business Operations Analyst ] Respiratory 20 18 18 Rate Blood Pressure 94/64 130/84 O2 Sat by Pulse 95 98 Oximetry 01/08/25 01/08/25 01/08/25 09:05 11:29 14:39 Temperature 98.0 F Pulse Rate 86 88 78 Pulse Rate [ Business Operations Analyst ] Respiratory 18 16 16 Rate Blood Pressure 113/68 103/65 105/78 O2 Sat by Pulse 95 95 97 Oximetry Chest Pain MDM <Betsy Albarran - Last Filed: 01/10/25 16:38> - MDM Was pt. sent in by a medical professional or institution (, YESSY, ARABIC PROFESSOR, urgent care, hospital, or senior living...) When possible be specific @ -No Did you speak to anyone other than the patient for history (EMS, parent, family, police, friend...)? What history was obtained from this source @ -No Did you review nursing and triage notes (agree or disagree)? Why? @ -I reviewed and agree with nursing and triage notes Were old charts reviewed (outside hosp., previous admission, EMS record, old EKG, old radiological studies, urgent care reports/EKG's, senior living records)? Report findings @ -Reviewed previous cardiac catheterization Differential Diagnosis (chest pain, altered mental status, abdominal pain women, abdominal pain men, vaginal bleeding, weakness, fever, dyspnea, syncope, headache, dizziness, GI bleed, back pain, seizure, CVA, palpatations, mental health, musculoskeletal)? @ -MDM Differential Chest Pain: Stable Angina, Unstable Angina, STEMI, NSTEMI Aortic Dissection, Pneumothorax, Musculoskeletal, Esophageal Spasm GERD, Cholecystitis, Pancreatitis, Zoster This is not meant to be an all-inclusive list. EKG interpreted by me (3pts min.). @ -EKG shows sinus rhythm ventricular rate 62. VA interval 144. QRS 94. QT 490. QTc 496 X-rays interpreted by me (1pt min.). @ -Chest x-ray shows no acute findings CT interpreted by me (1pt min.). @ -None done U/S interpreted by me (1pt. min.). @ -None done What testing was considered but not performed or refused? (CT, X-rays, U/S, labs)? Why? @ -None What meds were considered but not given or refused? Why? @ -None Did you discuss the management of the patient with other professionals (professionals i.e. YESSY Lloyd, ARABIC PROFESSOR, lab, RT, psych nurse, transition social worker, finishing room supervisor, teacher, chief growth officer, hospice case manager)? Give summary @ -My attending spoke with the [facility] provider on-call who accepts admission Was smoking cessation discussed for >3mins.? @ -No Was critical care preformed (if so, how long)? @ -No Were there social determinants of health that impacted care today? How? (Homelessness, low income, unemployed, alcoholism, drug addiction, transportation, low edu. Level, literacy, decrease access to med. care, custodial, rehab)? @ -No Was there de-escalation of care discussed even if they declined (Discuss DNR or withdrawal of care, Hospice)? DNR status @ -No What co-morbidities impacted this encounter? (DM, HTN, Smoking, COPD, CAD, Cancer, CVA, ARF, Chemo, Hep., AIDS, mental health diagnosis, sleep apnea, morbid obesity)? @ -CAD Was patient admitted / discharged? Hospital course, mention meds given and route, prescriptions, significant lab abnormalities, going to OR and other pertinent info. @ -64-year-old female with history of CAD and alcohol use disorder presenting with chief complaint of chest pain. History and physical examination are conducted. Troponin is 0.020. Transaminitis and elevated alkaline phosphatase secondary to alcoholism. Patient will be admitted for observation. Patient is agreeable with this plan. I discussed this case with my attending Dr. Novak Undiagnosed new problem with uncertain prognosis? @ -No Drug Therapy requiring intensive monitoring for toxicity (Heparin, Nitro, Insulin, Cardizem)? @ -No Were any procedures done? @ -No Diagnosis/symptom? @ -Chest pain Acute, or Chronic, or Acute on Chronic? @ -Acute Uncomplicated (without systemic symptoms) or Complicated (systemic symptoms)? @ -Complicated Side effects of treatment? @ -No Exacerbation, Progression, or Severe Exacerbation? @ -No Poses a threat to life or bodily function? How? (Chest pain, [place], MD, pneumonia, PE, COPD, DKA, ARF, appy, cholecystitis, CVA, Diverticulitis, Homicidal, Suicidal, threat to staff... and all critical care pts) @ -Yes (Betsy Albarran) Disposition Time of Disposition: 04:47 <Betsy Albarran - Last Filed: 01/10/25 16:38> <Adrian Novak - Last Filed: 01/11/25 04:57> Clinical Impression: Chest pain Disposition: ADMITTED IP TO THIS HOSP Condition: Fair
[2025-01-08] MEDS: LORazepam 2 MG/ML INJ IV STA (05:36)
--- NOTE | 2025-01-08 11:02 | P.CRDCN ---
History of Present Illness History of present illness: HISTORY OF PRESENT ILLNESS: This is a 64-year-old female with a past medical history significant for coronary artery disease with chronic total occlusion of the RCA, hypertension, hyperlipidemia, carotid stenosis status post stenting, and alcohol abuse. Patient follows in the office with Dr. Howard. We have been asked to see the patient in consultation for chest pain. Patient examined at the bedside in the emergency room. Patient states she was at home and was trying to stop drinking. She states that she started to experience withdrawal symptoms so she decided to take "a sip of alcohol". She reports only drinking a sip. However alcohol level 5 hours after admission was elevated at 131. The patient denies having any chest pain or pressure. She denies having any shortness of breath. She states that she is having whole body aches this morning. Flu, COVID, and RSV were checked and were negative. She is somewhat lethargic at the time of examination. Vital signs are stable. DIAGNOSTICS: - EKG reveals sinus mechanism with ST depression in inferior leads and lead I, V3V6. EKG similar in appearance to EKG performed on November 20, 2024 - Chest xray negative for acute findings - Laboratory data: WBC 11.5. Hemoglobin 12.0. Platelet count 324. Sodium 141. Potassium 3.8. BUN 9. Creatinine 0.86. Magnesium 1.8. AST 95. ALT 49. Alkaline phosphatase 136. Troponin negative x 3. - Current home cardiac medications include aspirin 81 mg daily, Imdur 30 mg daily, metoprolol succinate 50 mg daily, and amlodipine 5 mg daily - Most recent echocardiogram obtained in February 2024 revealed ejection fraction 55 to 60%, trace to mild tricuspid regurgitation and mild mitral regurgitation - Patient underwent dobutamine stress test in February 2024 which was negative for any dobutamine induced wall motion abnormalities. - Cardiac catheterization history: January 2023 revealed chronic total occlusion of the RCA. No significant CAD involving LAD or circumflex. REVIEW OF SYSTEMS: At the time of my exam: CONSTITUTIONAL: Denies fever or chills. HEENT: Denies blurred vision, vision changes, or eye pain. Denies hemoptysis CARDIOVASCULAR: Denies chest pain. Denies orthopnea. Denies PND. Denies palpitations RESPIRATORY: Denies shortness of breath. GASTROINTESTINAL: Denies abdominal pain. Denies nausea or vomiting. HEMATOLOGIC: Denies bleeding disorders. GENITOURINARY: Denies any blood in urine. SKIN: Denies pruitis. Denies rash. PHYSICAL EXAM: VITAL SIGNS: Reviewed. GENERAL: Well-developed in no acute distress. HEENT: Head is normocephalic. Pupils are equal, round. Sclerae anicteric. Mucous membranes of the mouth are moist. Neck supple. No JVD or thyromegaly LUNGS: Respirations even and unlabored. Lungs essentially clear to auscultation bilaterally. HEART: Regular rate and rhythm. S1 and S2 heard. Systolic murmur noted. ABDOMEN: Soft. Nondistended. Nontender. EXTREMITIES: Normal range of motion. No clubbing or cyanosis. Peripheral pulses intact. No lower extremity edema NEUROLOGIC: Somewhat lethargic. ASSESSMENT: Reported chest pain, troponin negative x 3, patient denies having any chest pain or pressure Acute alcohol intoxication, alcohol 131 Coronary artery disease with known chronic total occlusion of the RCA Hypertension Hyperlipidemia History of carotid stenosis with previous stenting History of alcohol abuse PLAN: An acute coronary event has been ruled out No need to repeat echocardiogram at this time Resume home cardiac medications including aspirin, Imdur, and metoprolol Hold amlodipine as systolic blood pressures are [place] [id number]. Recommend abstinence from alcohol No further inpatient recommendations from a cardiac standpoint We will sign off. Please reconsult if needed. Nurse practitioner note has been reviewed by physician. Signing provider agrees with the documented findings, assessment, and plan of care documented by ENGRAVER PANTOGRAPH as a scribe. Past Medical History Past Medical History: Asthma, Coronary Artery Disease (CAD), COPD, CVA/TIA, Eye Disorder, Hypertension, Liver Disease, Myocardial Infarction ([place]), Seizure Disorder, Vascular Disorder Additional Past Medical History / Comment(s): Pt recently admitted to [facility] for diarrhea, ETOH abuse. 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 Past Psychological History: Anxiety, Depression Smoking Status: Current every day smoker Past Alcohol Use History: Abuse, Daily, Heavy Past Drug Use History: Marijuana - Past Family History Mother Family Medical History: Cancer, Congestive Heart Failure (CHF), Coronary Artery Disease (CAD), Hyperlipidemia Additional Family Medical History / Comment(s): Mother at age 85 from lung cancer. Father Family Medical History: Cancer, COPD Additional Family Medical History / Comment(s): Father at age 63 from lung cancer. Brother(s) Additional Family Medical History / Comment(s): Patient has a total of 7 sibl ings. 5 are alive without any major medical problems she is aware of. 2 siblings have one from alcohol abuse and 1. Coronary artery disease. Daughter(s) Family Medical History: No Reported History Additional Family Medical History / Comment(s): Patient has one daughter with no major medical problems. Medications and Allergies Home Medications Medication Instructions Recorded Confirmed Type Budesonide/Formoterol Fumarate 2 puff INHALATION RT-BID 07/29/23 01/08/25 History [Symbicort 160-4.5 Mcg Inhaler] Aspirin EC [Ecotrin Low Dose] 81 mg PO HS #90 tab 05/25/24 01/08/25 Rx Isosorbide Mononitrate ER [Imdur] 30 mg PO HS #90 tab 05/25/24 01/08/25 Rx Metoprolol Succinate (ER) [Toprol 50 mg PO HS #90 tab 05/25/24 01/08/25 Rx XL] Albuterol Sulfate [Ventolin HFA] 1 - 2 puff INHALATION RT-Q6H PRN 09/10/24 01/08/25 History Albuterol Nebulized [Ventolin 2.5 mg INHALATION RT-Q6H PRN 01/08/25 01/08/25 History Nebulized] Nicotine 21Mg/24Hr Patch [Habitrol] 1 patch TRANSDERM DAILY 01/08/25 01/08/25 History Pantoprazole [Protonix] See Taper PO DIRECTED 01/08/25 01/08/25 History amLODIPine [Norvasc] 5 mg PO DAILY 01/08/25 01/08/25 History Allergies Allergy/AdvReac Type Severity Reaction Status Date / Time [place] And Derivatives Allergy Rash/Hives Verified 01/08/25 10:16 [[place]] latex Allergy Rash/Hives Verified 01/08/25 10:16 adhesive tape AdvReac Rash/Hives Verified 01/08/25 10:16 amlodipine [From Norvasc] AdvReac Cough Verified 01/08/25 10:16 cinnamon AdvReac Nausea Verified 01/08/25 10:16 clonidine AdvReac "almost Verified 01/08/25 10:16 passed out" gabapentin AdvReac Dizziness Verified 01/08/25 10:16 Influenza Virus Vaccines AdvReac Nausea & Verified 01/08/25 10:16 Vomiting lisinopril AdvReac Cough Verified 01/08/25 10:16 morphine AdvReac Nausea & Verified 01/08/25 10:16 Vomiting sucralfate [From Carafate] AdvReac Abdominal Verified 01/08/25 10:16 Pain tomato AdvReac Diarrhea Verified 01/08/25 10:16 Physical Exam Vitals: Vital Signs Temp Pulse Pulse Resp BP Pulse Ox 01/08/25 09:05 98.0 F 86 18 113/68 95 01/08/25 08:00 76 18 01/08/25 03:09 98.0 F 75 18 130/84 98 01/07/25 21:14 97.5 F L 60 20 94/64 95 Intake and Output 01/07/25 01/08/25 01/08/25 22:59 06:59 14:59 Other: Voiding Method External Catheter Weight 69.853 kg Results 01/08/25 02:35 01/08/25 02:35 Cardiac Enzymes 01/08/25 01/08/25 01/08/25 Range/Units 02:35 02:35 06:13 AST 95 H (14-36) U/L Troponin I 0.020 0.027 (0.000-0.034) ng/mL 01/08/25 Range/Units 09:12 AST (14-36) U/L Troponin I 0.026 (0.000-0.034) ng/mL Coagulation 01/08/25 Range/Units 02:35 PT 11.8 (10.0-12.5) sec APTT 22.7 (22.0-30.0) sec CBC 01/08/25 Range/Units 02:35 WBC 11.5 H (3.8-10.6) k/uL RBC 4.48 (3.80-5.40) m/uL Hgb 12.0 (11.4-16.0) gm/dL Hct 40.6 (34.0-46.0) % Plt Count 324 (150-450) k/uL Comprehensive Metabolic Panel 01/08/25 Range/Units 02:35 Sodium 141 (137-145) mmol/L Potassium 3.8 (3.5-5.1) mmol/L Chloride 100 (98-107) mmol/L Carbon Dioxide 17 L (22-30) mmol/L BUN 9 (7-17) mg/dL Creatinine 0.86 (0.52-1.04) mg/dL Glucose 66 L (74-99) mg/dL Calcium 9.7 (8.4-10.2) mg/dL AST 95 H (14-36) U/L ALT 49 H (4-34) U/L Alkaline Phosphatase 136 H (38-126) U/L Total Protein 7.2 (6.3-8.2) g/dL Albumin 4.6 (3.5-5.0) g/dL Current Medications Generic Name Dose Route Start Last Admin Trade Name Freq PRN Reason Stop Dose Admin Naloxone HCl 0.2 mg 01/08/25 04:45 Naloxone 0.4 Mg/Ml 1 Ml Vial IV Q2M PRN Opioid Reversal Intake and Output 01/07/25 01/08/25 01/08/25 22:59 06:59 14:59 Other: Voiding Method External Catheter Weight 69.853 kg 01/08/25 02:35 01/08/25 02:35
[2025-01-08 11:23] LABS: Glucose,Whole Blood 61 mg/dL (70-110)
[2025-01-08 11:31] VITALS: RESP 16
[2025-01-08 12:07] LABS: Glucose,Whole Blood 72 mg/dL (70-110)
[2025-01-08 12:42] LABS: Glucose,Whole Blood 99 mg/dL (70-110)
[2025-01-08] MEDS ORDERED: ALBUTEROL NEBULIZED 2.5 MG/3 ML INHALATION PRN (13:07)
--- NOTE | 2025-01-08 13:21 | P.HPIM ---
History of Present Illness 64-year-old female came in with complaints of chest pressure without any shortness of breath diaphoresis having muscle aches. Flu COVID-19 and RSV are negative patient had an EKG which showed ST depressions in inferior leads lead I and V3 to V6 and these EKG changes are not and were present in the old EKGs chest x-ray did not show any significant abnormality patient does have history of coronary artery disease with chronic total occlusion of RCA and carotid stenosis status post stenting patient does have history of alcohol abuse multiple hospitalizations for alcoholic abuse was treated for alcohol withdrawals never quits alcohol despite of extensive counseling. Patient had a dobutamine stress test in February 2024 which did not show any inducible ischemia cardiac catheterization in 2022 showed total occlusion of RCA which was chronic. REVIEW OF SYSTEMS: All other systems are negative except those mentioned in the HPI PHYSICAL EXAMINATION: GENERAL: The patient is alert and oriented x3, not in any acute distress. Well developed, well nourished. HEENT: Pupils are round and equally reacting to light. EOMI. No scleral icterus. No conjunctival pallor. Normocephalic, atraumatic. No pharyngeal erythema. No thyromegaly. CARDIOVASCULAR: S1 and S2 present. No murmurs, rubs, or gallops. PULMONARY: Chest is clear to auscultation, no wheezing or crackles. ABDOMEN: Soft, nontender, nondistended, normoactive bowel sounds. No palpable organomegaly. MUSCULOSKELETAL: No joint swelling or deformity. EXTREMITIES: No cyanosis, clubbing, or pedal edema. NEUROLOGICAL: Gross neurological examination did not reveal any focal deficits. SKIN: No rashes. Assessment and plan -Chest pain rule out acute coronary syndromes patient was eval by cardiology they are not recommending any further testing considering her recent extensive cardiac testing. Patient was resumed on metoprolol and Imdur -Hypertension: Patient is hypotensive and amlodipine is being discontinued rest of the medications are being continued which is Imdur and metoprolol -Coronary artery disease history -Alcohol intoxication, alcohol abuse counseling was provided. Patient had multiple previous hospitalizations with similar issue and never quit alcohol. 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 Patient will be discharged today if her nausea improves with Protonix and if she can tolerate soft diet. Past Medical History Past Medical History: Asthma, Coronary Artery Disease (CAD), COPD, CVA/TIA, Eye Disorder, Hypertension, Liver Disease, Myocardial Infarction (HI), Seizure Disorder, Vascular Disorder Additional Past Medical History / Comment(s): Pt recently admitted to [facility] for diarrhea, ETOH abuse. 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 Past Psychological History: Anxiety, Depression Smoking Status: Current every day smoker Past Alcohol Use History: Abuse, Daily, Heavy Past Drug Use History: Marijuana - Past Family History Mother Family Medical History: Cancer, Congestive Heart Failure (CHF), Coronary Artery Disease (CAD), Hyperlipidemia Additional Family Medical History / Comment(s): Mother at age 85 from lung cancer. Father Family Medical History: Cancer, COPD Additional Family Medical History / Comment(s): Father at age 63 from lung cancer. Brother(s) Additional Family Medical History / Comment(s): Patient has a total of 7 siblings. 5 are alive without any major medical problems she is aware of. 2 siblings have one from alcohol abuse and 1. Coronary artery disease. Daughter(s) Family Medical History: No Reported History Additional Family Medical History / Comment(s): Patient has one daughter with no major medical problems. Medications and Allergies Home Medications Medication Instructions Recorded Confirmed Type Budesonide/Formoterol Fumarate 2 puff INHALATION RT-BID 07/29/23 01/08/25 History [Symbicort 160-4.5 Mcg Inhaler] Aspirin EC [Ecotrin Low Dose] 81 mg PO HS #90 tab 05/25/24 01/08/25 Rx Isosorbide Mononitrate ER [Imdur] 30 mg PO HS #90 tab 05/25/24 01/08/25 Rx Metoprolol Succinate (ER) [Toprol 50 mg PO HS #90 tab 05/25/24 01/08/25 Rx XL] Albuterol Sulfate [Ventolin HFA] 1 - 2 puff INHALATION RT-Q6H PRN 09/10/24 01/08/25 History Albuterol Nebulized [Ventolin 2.5 mg INHALATION RT-Q6H PRN 01/08/25 01/08/25 History Nebulized] Nicotine 21Mg/24Hr Patch [Habitrol] 1 patch TRANSDERM DAILY 01/08/25 01/08/25 History Pantoprazole [Protonix] See Taper PO DIRECTED 01/08/25 01/08/25 History Allergies Allergy/AdvReac Type Severity Reaction Status Date / Time Coosa And Derivatives Allergy Rash/Hives Verified 01/08/25 10:16 [Coosa] latex Allergy Rash/Hives Verified 01/08/25 10:16 adhesive tape AdvReac Rash/Hives Verified 01/08/25 10:16 amlodipine [From Norvasc] AdvReac Cough Verified 01/08/25 10:16 cinnamon AdvReac Nausea Verified 01/08/25 10:16 clonidine AdvReac "almost Verified 01/08/25 10:16 passed out" gabapentin AdvReac Dizziness Verified 01/08/25 10:16 Influenza Virus Vaccines AdvReac Nausea & Verified 01/08/25 10:16 Vomiting lisinopril AdvReac Cough Verified 01/08/25 10:16 morphine AdvReac Nausea & Verified 01/08/25 10:16 Vomiting sucralfate [From Carafate] AdvReac Abdominal Verified 01/08/25 10:16 Pain tomato AdvReac Diarrhea Verified 01/08/25 10:16 Physical Exam Vitals: Vital Signs Temp Pulse Pulse Resp BP Pulse Ox 01/08/25 11:29 88 16 103/65 95 01/08/25 09:05 98.0 F 86 18 113/68 95 01/08/25 08:00 76 18 01/08/25 03:09 98.0 F 75 18 130/84 98 01/07/25 21:14 97.5 F L 60 20 94/64 95 Intake and Output 01/07/25 01/08/25 01/08/25 22:59 06:59 14:59 Other: Voiding Method External Catheter Weight 69.853 kg Results CBC & Chem 7: 01/08/25 02:35 01/08/25 02:35 Labs: Abnormal Lab Results - Last 24 Hours (Table) 01/08/25 01/08/25 01/08/25 Range/Units 02:35 02:35 11:22 WBC 11.5 H (3.8-10.6) k/uL MCHC 29.6 L (31.0-37.0) g/dL RDW 18.7 H (11.5-15.5) % Neutrophils # 10.5 H (1.3-7.7) k/uL Lymphocytes # 0.6 L (1.0-4.8) k/uL Carbon Dioxide 17 L (22-30) mmol/L Glucose 66 L (74-99) mg/dL POC Glucose (mg/dL) 61 L (70-110) mg/dL AST 95 H (14-36) U/L ALT 49 H (4-34) U/L Alkaline Phosphatase 136 H (38-126) U/L
[2025-01-08] MEDS: PANTOPRAZOLE 40 MG/10 ML VIAL IVP SCH (13:22)
[2025-01-08] MEDS: ONDANSETRON 4 MG/2 ML VIAL IVP PRN (14:31)
[2025-01-08 14:40] VITALS: BP 105/78; PULSE 78
[2025-01-08] MEDS ORDERED: SYMBICORT 160-4.5 MCG INHALER INHALATION SCH (20:00)
[2025-01-08] MEDS ORDERED: METOPROLOL SUCCINATE (ER) 50 MG TAB.ER.24H PO SCH (21:00)
[2025-01-08] MEDS ORDERED: ISOSORBIDE MONONITRATE ER 30 MG TAB.ER.24H PO SCH (21:00)
[2025-01-08] MEDS ORDERED: ASPIRIN 81 MG PO SCH (21:00)
== END 2025-01-08 14:52 | disposition home or self-care (01) ==
LOC: EC 21:12 → 6NMEDSUR 01-08 04:46
PROVIDERS: ADMIT Internal Medicine; ATTEND Internal Medicine
DX: R07.89 Other chest pain (principal); F10.229 Alcohol dependence with intoxication, unspecified; K70.10 Alcoholic hepatitis without ascites; K29.20 Alcoholic gastritis without bleeding; I25.10 Atherosclerotic heart disease of native coronary artery without angina pectoris; I25.82 Chronic total occlusion of coronary artery; I95.9 Hypotension, unspecified; I10 Essential (primary) hypertension; E78.5 Hyperlipidemia, unspecified; I08.1 Rheumatic disorders of both mitral and tricuspid valves; F17.200 Nicotine dependence, unspecified, uncomplicated; Y90.6 Blood alcohol level of 120-199 mg/100 ml; Z79.51 Long term (current) use of inhaled steroids; Z79.82 Long term (current) use of aspirin; Z79.899 Other long term (current) drug therapy; Z91.040 Latex allergy status; Z88.5 Allergy status to narcotic agent; Z88.7 Allergy status to serum and vaccine; Z88.8 Allergy status to other drugs, medicaments and biological substances; Z91.048 Other nonmedicinal substance allergy status; Z91.018 Allergy to other foods; Z71.41 Alcohol abuse counseling and surveillance of alcoholic; Z86.79 Personal history of other diseases of the circulatory system; Z95.828 Presence of other vascular implants and grafts; Z11.52 Encounter for screening for COVID-19; Z11.59 Encounter for screening for other viral diseases
CPT/HCPCS: 96374; 96375; 99285; 36415; 93005; 80053; 83690; 83735; 84484; 85025; 85610; 85730; 87636; 71046; G0378; G0480; J2060; J2405; J2470; 80320

== ENCOUNTER 2025-01-30 11:41 | Observation (INO) | payer OTHER ==
--- NOTE | 2025-01-30 12:09 | ED ---
General Adult HPI - General Chief complaint: Chest Pain Stated complaint: Chest pain Time Seen by Provider: 01/30/25 12:07 Source: EMS Mode of arrival: EMS Limitations: no limitations - History of Present Illness Initial comments: Patient is a 64-year-old female past medical history of prior CVA, CAD, on Brilinta, alcoholism, presenting today for left-sided chest pain. Patient states began around 11:00 describes it as sharp, intermittently radiates towards the right shoulder. It is reproducible. She did have a fall yesterday in the evening while she was feeding her cats. Denies injury to her head neck or chest at that time. States she took Motrin prior to arrival without improvement in pain. Pain does not radiate to the back, jaw or shoulder. She denies associated diaphoresis, vomiting, nausea, shortness of breath. Denies fevers, hemoptysis. Endorses nonproductive cough x few weeks. No new numbness or focal weakness. Last drink this morning just [place] was a glass of wine. Also notes concern for a fall last night. She states she is a poor historian due to prior stroke so she is not exactly sure what happened. Restart side feet stray cats and then fell. She is unsure about her neck trauma. Unsure of loss of consciousness. Unsure how long she is unconscious for. Denies tongue biting, unsure of urinary continence that she wears depends. - Related Data Home Medications Medication Instructions Recorded Confirmed Budesonide/Formoterol Fumarate 2 puff INHALATION RT-BID 07/29/23 01/30/25 [Symbicort 160-4.5 Mcg Inhaler] Albuterol Sulfate [Ventolin HFA] 1 - 2 puff INHALATION RT-Q6H PRN 09/10/24 01/30/25 Albuterol Nebulized [Ventolin 2.5 mg INHALATION RT-Q6H PRN 01/08/25 01/30/25 Nebulized] Nicotine 21Mg/24Hr Patch [Habitrol] 1 patch TRANSDERM DAILY 01/08/25 01/30/25 Pantoprazole [Protonix] 40 mg PO DAILY 01/08/25 01/30/25 Atorvastatin [Lipitor] 80 mg PO DAILY 01/30/25 01/30/25 Brimonidine Tartrate [Alphagan P 1 drop BOTH EYES BID 01/30/25 01/30/25 0.2% Ophth Soln] Fluticasone Propionate [Flonase 1 spray EA NOSTRIL DAILY 01/30/25 01/30/25 Allergy Relief] Ibuprofen [Motrin Ib] 800 mg PO Q8H 01/30/25 01/30/25 Ticagrelor [Brilinta] 90 mg PO BID 01/30/25 01/30/25 Previous Rx's Medication Instructions Recorded Aspirin EC [Ecotrin Low Dose] 81 mg PO HS #90 tab 05/25/24 Isosorbide Mononitrate ER [Imdur] 30 mg PO HS #90 tab 05/25/24 Metoprolol Succinate (ER) [Toprol 50 mg PO HS #90 tab 05/25/24 XL] Allergies Allergy/AdvReac Type Severity Reaction Status Date / Time adhesive tape Allergy Rash/Hives Verified 01/30/25 15:32 latex Allergy Rash/Hives Verified 01/30/25 15:32 amlodipine [From Norvasc] AdvReac Cough Verified 01/30/25 15:32 cinnamon AdvReac Nausea Verified 01/30/25 15:32 clonidine AdvReac "almost Verified 01/30/25 15:32 passed out" gabapentin AdvReac Dizziness Verified 01/30/25 15:32 Influenza Virus Vaccines AdvReac Nausea & Verified 01/30/25 15:32 Vomiting lisinopril AdvReac Cough Verified 01/30/25 15:32 morphine AdvReac Nausea & Verified 01/30/25 15:32 Vomiting sucralfate [From Carafate] AdvReac Abdominal Verified 01/30/25 15:32 Pain tomato AdvReac Diarrhea Verified 01/30/25 15:32 Review of Systems ROS Statement: Those systems with pertinent positive or pertinent negative responses have been documented in the HPI. ROS Other: All systems not noted in ROS Statement are negative. Past Medical History Past Medical History: Asthma, Coronary Artery Disease (CAD), COPD, CVA/TIA, Eye Disorder, Hypertension, Liver Disease, Myocardial Infarction (RI), Seizure Disorder, Vascular Disorder Additional Past Medical History / Comment(s): Pt recently admitted to [facility] for diarrhea, ETOH abuse. 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 Past Psychological History: Anxiety, Depression Smoking Status: Current every day smoker Past Alcohol Use History: Abuse, Daily, Heavy Past Drug Use History: Marijuana - Past Family History Mother Family Medical History: Cancer, Congestive Heart Failure (CHF), Coronary Artery Disease (CAD), Hyperlipidemia Additional Family Medical History / Comment(s): Mother at age 85 from lung cancer. Father Family Medical History: Cancer, COPD Additional Family Medical History / Comment(s): Father at age 63 from lung cancer. Brother(s) Additional Family Medical History / Comment(s): Patient has a total of 7 siblings. 5 are alive without any major medical problems she is aware of. 2 siblings have one from alcohol abuse and 1. Coronary artery disease. Daughter(s) Family Medical History: No Reported History Additional Family Medical History / Comment(s): Patient has one daughter with no major medical problems. General Exam - General Exam Comments Initial Comments: PE: CONSTITUTIONAL: No apparent distress, well appearing SKIN: Warm, dry, no jaundice, hives or petechiae. Bruising to the lateral right forearm without deformity or swelling EYES: Pupils are equally round, extraocular movements intact without nystagmus, clear conjunctiva, non-icteric sclera HENT: Normocephalic, atraumatic, moist mucus membranes, oropharynx clear without exudates NECK: , Full range of motion, normal appearance PULMONARY: Clear to auscultation without wheezes, rhonchi, or rales, normal excursion, no accessory muscle use and no stridor CARDIOVASCULAR: Reproducible chest wall tenderness to the left of the sternum, no overlying erythema or rashes, regular rate, rhythm, normal S1 and S2. No appreciated murmurs, rubs or gallops. Strong radial pulses with intact distal perfusion. No lower extremity edema GASTROINTESTINAL: Soft, active bowel sounds throughout, non-tender, non- distended, no palpable masses, no rebound or guarding. No hepatosplenomegaly GENITOURINARY: MUSCULOSKELETAL: Extremities have no gross deformity, no edema, redness, or swelling. No calf swelling NEUROLOGIC:_a/o x 3, GCS 15, normal mentation and speech. Moves all extremities x 4 without motor or sensory deficit PSYCHIATRIC: Anxious and tearful mood and affect, thought process is clear and linear Limitations: no limitations Course Vital Signs 01/30/25 01/30/25 11:46 16:53 Temperature 97.4 F L 97.8 F Pulse Rate 77 80 Respiratory 18 16 Rate Blood Pressure 98/66 100/64 O2 Sat by Pulse 99 97 Oximetry EKG Findings - EKG Comments: EKG Findings:: Sinus rhythm, rate 78 bpm AR interval 147 ms QT/QTc 383/460 ms, normal axis, inverted T waves lateral leads as well as leads I to aVF, question 1 mm elevation avrCompared to EKG performed on 01/07/2025, T wave inversions are present on prior EKG though do appear more prominent today,Additionally compared to 11/20/2024, lead aVR appears similar to today Medical Decision Making - Medical Decision Making Was pt. sent in by a medical professional or institution ([facility]ESS[facility] Lloyd, [facility]LF [employer], urgent care, hospital, or shelter...) When possible be specific @ -No Did you speak to anyone other than the patient for history (EMS, parent, family, police, friend...)? What history was obtained from this source @ -No Did you review nursing and triage notes (agree or disagree)? Why? @ -I reviewed nursing and triage notes Were old charts reviewed (outside hosp., previous admission, EMS record, old EKG, old radiological studies, urgent care reports/EKG's, shelter records)? Report findings @ -Medical records reviewed-Reviewed stress test from 02/27/2024, was normal Additionally patient has been in the Emergency Department multiple times, for chest pain, alcohol intoxication Differential Diagnosis (chest pain, altered mental status, abdominal pain women, abdominal pain men, vaginal bleeding, weakness, fever, dyspnea, syncope, headache, dizziness, GI bleed, back pain, seizure, CVA, palpatations, mental health, musculoskeletal)? @Differential Chest Pain: Stable Angina, Unstable Angina, STEMI, NSTEMI pericarditis, pleurisy, chostochondirits, Pneumothorax, Musculoskeletal, Esophageal Spasm GERD, Cholecystitis, Pancreatitis, Zoster, this is not meant to be an all-inclusive list. EKG interpreted by me (3pts min.). @ -As above X-rays interpreted by me (1pt min.). @ Personally reviewed CXR, I see no evidence of cardiomegaly, consolidations or pneumothorax CT interpreted by me (1pt min.). @ Personally reviewed CT brain C spine, circular mass near 3rd ventricle, no hemorrhage or skull fracture, read by radiologist as no acute process, notes colloid cyst in 3rd ventricle, on review of CT brain from November 2024, was p resent on prior. Of note CT brain C-spine also noted incidental finding of stable pulmonary nodules in the lung apices. U/S interpreted by me (1pt. min.). @ -None done What testing was considered but not performed or refused? (CT, X-rays, U/S, labs)? Why? @ -None What meds were considered but not given or refused? Why? @ SL nitro was considered however pt's BP on arrival somewhat low and pt amelia schwab in hallway bed Did you discuss the management of the patient with other professionals (lynda ovalles i.e. , PA, SHELF STOCKER, lab, RT, psych nurse, addiction social worker, elevator dispatcher, teacher, supply officer, gearcase assembler)? Give summary @ -No Was smoking cessation discussed for >3mins.? @ -No Was critical care preformed (if so, how long)? @ -No Were there social determinants of health that impacted care today? How? (Homelessness, low income, unemployed, alcoholism, drug addiction, transportation, low edu. Level, literacy, decrease access to med. care, long-term, rehab)? @Yes pt has guardian, an hx alcoholism Was there de-escalation of care discussed even if they declined (Discuss DNR or withdrawal of care, Hospice)? @ -No What co-morbidities impacted this encounter? (DM, HTN, Smoking, COPD, CAD, Cancer, CVA, ARF, Chemo, Hep., AIDS, mental health diagnosis, sleep apnea, morbid obesity)? @Alcoholism, COPD, CAD, HTN, prior CVA Was patient admitted / discharged? Hospital course, mention meds given and route , prescriptions, significant lab abnormalities, going to OR and other pertinent info. @Admission- Pt is a 64 y/o female well known to this emergency department. Presents for sharp left sided chest pain. Is also intoxicated. EKG reviewed and compared to prior, overall T wave inversions appear somewhat deeper than most recent EKG though have been similar on EKGs prior to this. Plan for ASA, tylenol, CP workup in addition to CT brain/C spine given pt intoxicated and poor historian regarding fall last night. Significant for blood alcohol. 251, troponin 0.020, BNP 779, otherwise overall unremarkable. Given patient's significant cardiac history and EKG findings we will admit for observation. Farzana scussed with patient plan of care. She is agreeable. Endorses anxiety so Ativan was ordered. CIWA protocol placed. History of alcoholism. Case was discussed with Dr. Barron who can accept the patient for admission. Undiagnosed new problem with uncertain prognosis? @ -No Drug Therapy requiring intensive monitoring for toxicity (Heparin, Nitro, Insulin, Cardizem)? @ -No Were any procedures done? @ -No Diagnosis/symptom? Chest pain alcohol intoxication Acute, or Chronic, or Acute on Chronic? @Acute Uncomplicated (without systemic symptoms) or Complicated (systemic symptoms)? @ -Complicated Side effects of treatment? @ -No Exacerbation, Progression, or Severe Exacerbation? @ -No Poses a threat to life or bodily function? How? (Chest pain, USA, RI, pneumonia, PE, COPD, DKA, ARF, appy, cholecystitis, CVA, Diverticulitis, Homicidal, Suicidal, threat to staff... and all critical care pts) @ -Potentially chest pain is secondary to ACS - Lab Data Result diagrams: 01/30/25 13:29 01/30/25 13:29 Lab Results 01/30/25 01/30/25 01/30/25 Range/Units 13:29 13: 13: WBC 7.7 (3.8-10.6) k/uL RBC 4.97 (3.80-5.40) m/uL Hgb 13.3 (11.4-16.0) gm/dL Hct 43.2 (34.0-46.0) % MCV 86.9 (80.0-100.0) fL MCH 26.8 (25.0-35.0) pg MCHC 30.8 L (31.0-37.0) g/dL RDW 19.7 H (11.5-15.5) % Plt Count 433 (150-450) k/uL MPV 7.3 Neutrophils % 66 % Lymphocytes % 26 % Monocytes % 4 % Eosinophils % 1 % Basophils % 1 % Neutrophils # 5.1 (1.3-7.7) k/uL Lymphocytes # 2.0 (1.0-4.8) k/uL Monocytes # 0.3 (0-1.0) k/uL Eosinophils # 0.1 (0-0.7) k/uL Basophils # 0.1 (0-0.2) k/uL Hypochromasia Moderate Anisocytosis Slight PT 10.5 (10.0-12.5) sec INR 0.9 (<1.2) APTT 19.5 L (22.0-30.0) sec Sodium 140 (137-145) mmol/L Potassium 4.4 (3.5-5.1) mmol/L Chloride 99 (98-107) mmol/L Carbon Dioxide 22 (22-30) mmol/L Anion Gap 19 mmol/L BUN 8 (7-17) mg/dL Creatinine 0.53 (0.52-1.04) mg/dL Est GFR (CKD-EPI)AfAm >90 (>60 ml/min/1.73 sqM) Est GFR (CKD-EPI)NonAf >90 (>60 ml/min/1.73 sqM) Glucose 98 (74-99) mg/dL Calcium 9.3 (8.4-10.2) mg/dL Magnesium 1.9 (1.6-2.3) mg/dL Total Bilirubin 0.5 (0.2-1.3) mg/dL AST 50 H (14-36) U/L ALT 22 (4-34) U/L Alkaline Phosphatase 129 H (38-126) U/L Troponin I (0.000-0.034) ng/mL NT-Pro-B Natriuret Pep 779 pg/mL Total Protein 7.8 (6.3-8.2) g/dL Albumin 4.5 (3.5-5.0) g/dL Lipase 106 (23-300) U/L Serum Alcohol 251 H* mg/dL 01/30/25 Range/Units 13:29 WBC (3.8-10.6) k/uL RBC (3.80-5.40) m/uL Hgb (11.4-16.0) gm/dL Hct (34.0-46.0) % MCV (80.0-100.0) fL MCH (25.0-35.0) pg MCHC (31.0-37.0) g/dL RDW (11.5-15.5) % Plt Count (150-450) k/uL MPV Neutrophils % % Lymphocytes % % Monocytes % % Eosinophils % % Basophils % % Neutrophils # (1.3-7.7) k/uL Lymphocytes # (1.0-4.8) k/uL Monocytes # (0-1.0) k/uL Eosinophils # (0-0.7) k/uL Basophils # (0-0.2) k/uL Hypochromasia Anisocytosis PT (10.0-12.5) sec INR (<1.2) APTT (22.0-30.0) sec Sodium (137-145) mmol/L Potassium (3.5-5.1) mmol/L Chloride (98-107) mmol/L Carbon Dioxide (22-30) mmol/L Anion Gap mmol/L BUN (7-17) mg/dL Creatinine (0.52-1.04) mg/dL Est GFR (CKD-EPI)AfAm (>60 ml/min/1.73 sqM) Est GFR (CKD-EPI)NonAf (>60 ml/min/1.73 sqM) Glucose (74-99) mg/dL Calcium (8.4-10.2) mg/dL Magnesium (1.6-2.3) mg/dL Total Bilirubin (0.2-1.3) mg/dL AST (14-36) U/L ALT (4-34) U/L Alkaline Phosphatase (38-126) U/L Troponin I 0.020 (0.000-0.034) ng/mL NT-Pro-B Natriuret Pep pg/mL Total Protein (6.3-8.2) g/dL Albumin (3.5-5.0) g/dL Lipase (23-300) U/L Serum Alcohol mg/dL Disposition Clinical Impression: Chest pain, Alcohol intoxication, Colloid cyst of brain, Pulmonary nodule Disposition: ADMITTED IP TO THIS HOSP Condition: Stable
[2025-01-30] MEDS: ASPIRIN 81 MG PO STA (13:39)
[2025-01-30 13:42] LABS: INR 0.9 (<1.2); Prothrombin Time 10.5 sec (10.0-12.5)
[2025-01-30] MEDS: SODIUM CHLORIDE 0.9% 1,000 ML IV STA (13:43)
[2025-01-30] MEDS: ACETAMINOPHEN TAB 325 MG TAB PO STA (13:43)
[2025-01-30] MEDS: ONDANSETRON 4 MG/2 ML VIAL IVP STA ×2 (13:43→14:46)
[2025-01-30 13:48] LABS: Anisocytosis Slight; Basophils # (A) 0.1 k/uL (0-0.2); Basophils % (A) 1 %; Eosinophils # (A) 0.1 k/uL (0-0.7); Eosinophils % (A) 1 %; HCT 43.2 % (34.0-46.0); HGB 13.3 gm/dL (11.4-16.0); Hypochromasia Moderate; Lymphocytes % (A) 26 %; MCH 26.8 pg (25.0-35.0); MCHC 30.8 g/dL (31.0-37.0); MCV 86.9 fL (80.0-100.0); Mean Platelet Volume 7.3; Monocytes # (A) 0.3 k/uL (0-1.0); Monocytes % (A) 4 %; Neutrophils # (A) 5.1 k/uL (1.3-7.7); Neutrophils % (A) 66 %; Platelet Count 433 k/uL (150-450); RBC 4.97 m/uL (3.80-5.40); RDW 19.7 % (11.5-15.5); WBC 7.7 k/uL (3.8-10.6)
[2025-01-30 13:51] LABS: ALT 22 U/L (4-34); African American GFR (CKD) >90 (>60 ml/min/1.73 sqM); Albumin 4.5 g/dL (3.5-5.0); Anion Gap 19 mmol/L; Blood Urea Nitrogen 8 mg/dL (7-17); Calcium 9.3 mg/dL (8.4-10.2); Carbon Dioxide 22 mmol/L (22-30); Chloride 99 mmol/L (98-107); Glucose 98 mg/dL (74-99); Lipase 106 U/L (23-300); Non-African American GFR(CKD) >90 (>60 ml/min/1.73 sqM); Sodium 140 mmol/L (137-145); Total Bilirubin 0.5 mg/dL (0.2-1.3); Total Protein 7.8 g/dL (6.3-8.2)
[2025-01-30 13:56] LABS: NT-Pro-B-Type Natriuretic Pept 779 pg/mL
[2025-01-30 13:59] LABS: AST 50 U/L (14-36); Alcohol 251 mg/dL; Alkaline Phosphatase 129 U/L (38-126); Partial Thromboplastin Time 19.5 sec (22.0-30.0); Potassium 4.4 mmol/L (3.5-5.1)
[2025-01-30 14:00] LABS: Magnesium 1.9 mg/dL (1.6-2.3)
--- NOTE | 2025-01-30 14:01 | XR ---
EXAMINATION TYPE: XR chest 2V DATE OF EXAM: 01/30/2025 1:58 PM COMPARISON: 01/08/2025 CLINICAL INDICATION: Female, 64 years old with history of Chest Pain, left sided, reproducible: Short ness of breath TECHNIQUE: XR chest 2V views of the chest are obtained. FINDINGS: Scattered senescent parenchymal changes noted. Hyperinflation compatible with COPD. No evidence for infiltrate. No evidence for atelectasis. Heart size is stable. Mediastinal structures are stable and grossly unremarkable. No evidence for hilar prominence. Degenerative changes dorsal spine. IMPRESSION: 1. No evidence for acute pulmonary disease. [facility], , 01/30/2025 1:59 PM
--- NOTE | 2025-01-30 14:46 | CT ---
EXAMINATION TYPE: CT brain cspine wo con CT DLP: 1439 mGycm, Automated exposure control for dose reduction was used. DATE OF EXAM: 01/30/2025 2:17 PM COMPARISON: CT brain studies by 11/20/2024, 09/05/2024 CLINICAL INDICATION:Female, 64 years old with history of fall; , pain TECHNIQUE: Brain: Multiple axial CT images of the brain were obtained without IV contrast. Cspine: Axial CT images from the skull base to the inferior aspect of T2 we obtained without intraven ous contrast. Coronal and sagittal reformatted images were also reviewed. FINDINGS: Brain: Extra-axial spaces: No abnormal extra-axial fluid collections. Ventricular system: Stable prominence without hydronephrosis. Stable hyperdense colloid cyst measurin g 1.2 cm within the roof of the third ventricle. Cerebral parenchyma: Cerebral atrophy. No acute intraparenchymal hemorrhage or mass effect. The diamond -white junction is well differentiated. Scattered hypoattenuating areas are seen within the periventr icular white matter. Encephalomalacia within the left parietal lobe and left frontal lobe from remot e injury. Cerebellum: Unremarkable. Mass effect: No evidence of midline shift. Intracranial vasculature: Atherosclerotic calcifications of the intracranial vessels. Soft tissues: Normal. Calvarium/osseous structures: No depressed skull fracture. Paranasal sinuses and mastoid air cells: Mastoid air cells are clear. Mild mucosal thickening of the left ethmoid sinus with subcentimeter left maxillary sinus mucous retention cyst. Remaining paranasal sinuses are clear. Visualized orbits: Bilateral aphakia Cervical spine: Fracture: None. Osseous structures: Multilevel degenerative disc disease changes with endplate spurring and disc oste ophyte complex's. Vertebral alignment: Within normal limits. Spinal canal/Neural Foramina: Disc osteophyte complexes at C4-C5 with at least mild spinal canal sten osis. No evidence for significant neural foraminal stenosis. Neck soft tissues: Prevertebral soft tissues are within normal limits. Other: The airway is patent. Couple of bilateral upper lobe stable pulmonary nodules measuring 4 mm. Bilateral carotid bulb calcifications. Left carotid arterial stent. IMPRESSION: 1. No acute intracranial process. 2. Nonspecific white matter changes, likely secondary to chronic small vessel ischemic disease. 3. Similar remote infarcts within the left frontal and parietal lobes. 4. Stable colloid cyst in the third ventricle. No hydrocephalus. Neurosurgical consultation is recomm ended if not previously performed. 5. No evidence of cervical spine fracture. 6. Mild multilevel degenerative disc disease. [facility], , 01/30/2025 2:23 PM
[2025-01-30] MEDS: MORPHINE SULFATE 2 MG/ML SYRINGE IVP STA (14:48)
[2025-01-30] MEDS ORDERED: chlordiazePOXIDE 25 MG CAP PO PRN ×3 (15:36)
[2025-01-30] MEDS ORDERED: LORazepam 1 MG TAB PO PRN (15:36)
[2025-01-30] MEDS ORDERED: LORazepam 2 MG/ML INJ IV PRN (15:36)
[2025-01-30] MEDS: LORazepam 2 MG/ML INJ IV STA (15:37)
[2025-01-30] MEDS: KETOROLAC 15 MG/ML 1 ML VIAL IVP STA (15:38)
[2025-01-30] MEDS: DEXTROSE 5%-0.45% NACL 1,000 ML IV SCH (15:48)
[2025-01-30] MEDS: MULTIVITAMINS, THERA 1 EACH TAB PO SCH (15:48)
[2025-01-30] MEDS: THIAMINE 100 MG/ML 2 ML VIAL IM STA (15:48)
[2025-01-30] MEDS ORDERED: NALOXONE 0.4 MG/ML 1 ML VIAL IV PRN (16:03)
[2025-01-30] MEDS ORDERED: MORPHINE SULFATE 4 MG/ML SYRINGE IV PRN (16:03)
[2025-01-30] MEDS ORDERED: ACETAMINOPHEN TAB 325 MG TAB PO PRN (18:03)
[2025-01-30] MEDS ORDERED: LORazepam 1 MG/0.5 ML VIAL IV PRN (18:07)
[2025-01-30] MEDS: KETOROLAC 15 MG/ML 1 ML VIAL IVP PRN (18:40)
[2025-01-30] MEDS: chlordiazePOXIDE 25 MG CAP PO PRN (18:43)
[2025-01-30] MEDS: ONDANSETRON 4 MG/2 ML VIAL IVP PRN (18:43)
[2025-01-30] MEDS: hydrALAZINE HCL 50 MG TAB PO SCH (18:43)
[2025-01-30 18:44] LABS: Appearance,Urine Clear (Clear); Bacteria,Urine Rare /hpf; Bilirubin,Urine Negative (Negative); Blood,Urine Negative (Negative); Color,Urine Colorless; Glucose,Urine (UA) Negative (Negative); Ketones,Urine Negative (Negative); Leukocyte Esterase,Urine Negative (Negative); Nitrite,Urine Positive (Negative); Protein,Urine Negative (Negative); RBC,Urine <1 /hpf (0-5); Specific Gravity,Urine 1.007 (1.001-1.035); Squamous Epithelial Cell,Urine 1 /hpf (0-4); Urobilinogen,Urine <2.0 mg/dL (<2.0); WBC,Urine 3 /hpf (0-5)
[2025-01-30] MEDS: NICOTINE 14MG/24HR PATCH TRANSDERM SCH (20:21)
[2025-01-30] MEDS: FAMOTIDINE 20 MG TAB PO SCH (20:21)
[2025-01-30] MEDS: traMADol 50 MG TAB PO PRN (20:36)
[2025-01-30] MEDS: MELATONIN 5 MG TABLET PO PRN (22:08)
[2025-01-31] MEDS ORDERED: ALBUTEROL HFA INHALER INHALATION PRN (09:02)
[2025-01-31] MEDS ORDERED: ALBUTEROL NEBULIZED 2.5 MG/3 ML INHALATION PRN (09:02)
[2025-01-31] MEDS: FOLIC ACID 1 MG TAB PO SCH (09:05)
[2025-01-31] MEDS: ASPIRIN 81 MG PO SCH (09:05)
[2025-01-31] MEDS: LOSARTAN 50 MG TAB PO SCH (09:05)
[2025-01-31] MEDS: THIAMINE 100 MG TAB PO SCH (09:05)
[2025-01-31] MEDS: TICAGRELOR 90 MG TAB PO SCH (09:32)
[2025-01-31] MEDS: BRIMONIDINE TARTRATE 0.2% DROPS 5 ML BTL BOTH EYES SCH (09:34)
[2025-01-31] MEDS: FLUTICASONE NASAL 50MCG/SPRAY 16GM BTL EA NOSTRIL SCH (09:34)
[2025-01-31] MEDS: TICAGRELOR 90 MG TAB PO STA (09:36)
[2025-01-31 13:18] VITALS: BMI 28.1
--- NOTE | 2025-01-31 14:56 | P.CRDCN ---
History of Present Illness Consult date: 01/31/25 Consult reason: chest pain History of present illness: The patient is a 64-year-old female who follows in the office with Dr. Howard. Patient has a history of coronary artery disease, hypertension, and EtOH abuse. Patient had sustained a mechanical fall and presented to the emergency room with chest discomfort. This pain is reproducible upon palpation. DIAGNOSTICS: EKG shows sinus rhythm with baseline EKG abnormalities, no acute changes Chest x-ray shows no evidence of acute cardiopulmonary disease Head CT shows no acute intracranial process with nonspecific white matter changes likely secondary to chronic small vessel disease Lab data: BC 7.7, hemoglobin 13.3, hematocrit 43.2, platelet 433, sodium 140, potassium 4.4, BUN 8, creatinine 0.53, AST 50, ALT 22, troponin 0.02, 0.02, 0.01, BNP 779, serum alcohol level 251 REVIEW OF SYSTEMS: No fever or chills. No cough or expectoration. No diaphoresis. Patient denies headache, dizziness, blurred vision, double vision. Patient denies any stomach discomfort. No nausea, vomiting. No hematochezia. No hematemesis. Denies any black stools or blood in his stools. Denies dysuria or hematuria. No muscle weakness or numbness. Positive for chest discomfort to palpation. PHYSICAL EXAMINATION: This is a 64-year-old female in no apparent distress at the time of my examination. HEENT: Head is atraumatic, normocephalic. Pupils are equal, round. Sclerae anicteric. Conjunctivae are clear. Mucous membranes of the mouth are moist. Neck is supple. There is no jugular venous distention. No carotid bruit is heard. CHEST EXAMINATION: Lungs are clear to auscultation. No chest wall tenderness is noted on palpation or with deep breathing. HEART EXAMINATION: Heart regular rate and rhythm. S1, S2 heard. No murmurs, gallops or rub. ABDOMEN: Soft, nontender. Bowel sounds are heard. No organomegaly noted. EXTREMITIES: 2+ peripheral pulses with no evidence of peripheral edema and no calf tenderness noted. NEUROLOGIC EXAMINATION: Patient is awake, alert and oriented x3. FINAL ASSESSMENT AND PLAN: Chest discomfort, reproducible with palpation Recent mechanical fall History of CAD History hypertension History of EtOH abuse PLAN: Resume dual antiplatelet therapy Start losartan 50 mg for hypertension and wean off of hydralazine Primary team to order all additional home medications Outpatient follow-up with primary pipelines laborer Dr. Howard in 1 week I am dictating on behalf of Dr Farhan Rico's history/physical and assessment/plan. Past Medical History Past Medical History: Asthma, Coronary Artery Disease (CAD), COPD, CVA/TIA, Eye Disorder, Hypertension, Liver Disease, Myocardial Infarction ([place]), Seizure Disorder, Vascular Disorder Additional Past Medical History / Comment(s): Hx of admitted to [facility] for diar eben, ETOH abuse. 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 Past Psychological History: Anxiety, Depression Additional Psychological History / Comment(s): She uses a walker to ambulate. She has a nebulizer. She no longer drives, Pt. manages her own meds. Smoking Status: Current every day smoker Past Alcohol Use History: Abuse, Daily, Heavy Additional Past Alcohol Use History / Comment(s): Pt started smoking as a teen and has cut down to 1/2 pack per day. Drinks a few alcoholic drinks daily. Past Drug Use History: Marijuana Additional Drug Use History / Comment(s): Pt has medical marijuana, reports she has not used it in a while. (Doesn't like the way it makes her feel) - Past Family History Mother Family Medical History: Cancer, Congestive Heart Failure (CHF), Coronary Artery Disease (CAD), Hyperlipidemia Additional Family Medical History / Comment(s): Mother at age 85 from lung cancer. Father Family Medical History: Cancer, COPD Additional Family Medical History / Comment(s): Father at age 63 from lung cancer. Brother(s) Additional Family Medical History / Comment(s): Patient has a total of 7 siblings. 5 are alive without any major medical problems she is aware of. 2 siblings have one from alcohol abuse and 1. Coronary artery disease. Daughter(s) Family Medical History: No Reported History Additional Family Medical History / Comment(s): Patient has one daughter with no major medical problems. Medications and Allergies Home Medications Medication Instructions Recorded Confirmed Type Budesonide/Formoterol Fumarate 2 puff INHALATION RT-BID 07/29/23 01/30/25 History [Symbicort 160-4.5 Mcg Inhaler] Aspirin EC [Ecotrin Low Dose] 81 mg PO HS #90 tab 05/25/24 01/30/25 Rx Isosorbide Mononitrate ER [Imdur] 30 mg PO HS #90 tab 05/25/24 01/30/25 Rx Metoprolol Succinate (ER) [Toprol 50 mg PO HS #90 tab 05/25/24 01/30/25 Rx XL] Albuterol Sulfate [Ventolin HFA] 1 - 2 puff INHALATION RT-Q6H PRN 09/10/24 01/30/25 History Albuterol Nebulized [Ventolin 2.5 mg INHALATION RT-Q6H PRN 01/08/25 01/30/25 History Nebulized] Nicotine 21Mg/24Hr Patch [Habitrol] 1 patch TRANSDERM DAILY 01/08/25 01/30/25 History Pantoprazole [Protonix] 40 mg PO DAILY 01/08/25 01/30/25 History Atorvastatin [Lipitor] 80 mg PO DAILY 01/30/25 01/30/25 History Brimonidine Tartrate [Alphagan P 1 drop BOTH EYES BID 01/30/25 01/30/25 History 0.2% Ophth Soln] Fluticasone Propionate [Flonase 1 spray EA NOSTRIL DAILY 01/30/25 01/30/25 History Allergy Relief] Ibuprofen [Motrin Ib] 800 mg PO Q8H 01/30/25 01/30/25 History Ticagrelor [Brilinta] 90 mg PO BID 01/30/25 01/30/25 History Allergies Allergy/AdvReac Type Severity Reaction Status Date / Time adhesive tape Allergy Rash/Hives Verified 01/30/25 15:32 latex Allergy Rash/Hives Verified 01/30/25 15:32 amlodipine [From Norvasc] AdvReac Cough Verified 01/30/25 15:32 cinnamon AdvReac Nausea Verified 01/30/25 15:32 clonidine AdvReac "almost Verified 01/30/25 15:32 passed out" gabapentin AdvReac Dizziness Verified 01/30/25 15:32 Influenza Virus Vaccines AdvReac Nausea & Verified 01/30/25 15:32 Vomiting lisinopril AdvReac Cough Verified 01/30/25 15:32 morphine AdvReac Nausea & Verified 01/30/25 15:32 Vomiting sucralfate [From Carafate] AdvReac Abdominal Verified 01/30/25 15:32 Pain tomato AdvReac Diarrhea Verified 01/30/25 15:32 Physical Exam Vitals: Vital Signs Temp Pulse Pulse Pulse Resp BP BP 01/31/25 07:04 98.5 F 85 16 163/87 01/31/25 01:20 97.5 F L 93 20 194/90 01/30/25 21:37 144/82 01/30/25 18:00 98.1 F 99 18 208/120 01/30/25 16:53 97.8 F 80 16 100/64 01/30/25 11:46 97.4 F L 77 18 98/66 Pulse Ox 01/31/25 07:04 98 01/31/25 01:20 96 01/30/25 21:37 01/30/25 18:00 99 01/30/25 16:53 97 01/30/25 11:46 99 Intake and Output 01/30/25 01/31/25 01/31/25 22:59 06:59 14:59 Output Total 500 600 Balance -500 -600 Output: Urine 500 600 Other: Voiding Method External Catheter # Voids 1 Weight 69.853 kg Results 01/30/25 13:29 01/30/25 13:29 Cardiac Enzymes 01/30/25 01/30/25 01/30/25 Range/Units 13:29 13:29 18:33 AST 50 H (14-36) U/L Troponin I 0.020 0.021 (0.000-0.034) ng/mL 01/30/25 Range/Units 22:42 AST (14-36) U/L Troponin I 0.018 (0.000-0.034) ng/mL Coagulation 01/30/25 Range/Units 13:29 PT 10.5 (10.0-12.5) sec APTT 19.5 L (22.0-30.0) sec CBC 01/30/25 Range/Units 13:29 WBC 7.7 (3.8-10.6) k/uL RBC 4.97 (3.80-5.40) m/uL Hgb 13.3 (11.4-16.0) gm/dL Hct 43.2 (34.0-46.0) % Plt Count 433 (150-450) k/uL Comprehensive Metabolic Panel 01/30/25 Range/Units 13:29 Sodium 140 (137-145) mmol/L Potassium 4.4 (3.5-5.1) mmol/L Chloride 99 (98-107) mmol/L Carbon Dioxide 22 (22-30) mmol/L BUN 8 (7-17) mg/dL Creatinine 0.53 (0.52-1.04) mg/dL Glucose 98 (74-99) mg/dL Calcium 9.3 (8.4-10.2) mg/dL AST 50 H (14-36) U/L ALT 22 (4-34) U/L Alkaline Phosphatase 129 H (38-126) U/L Total Protein 7.8 (6.3-8.2) g/dL Albumin 4.5 (3.5-5.0) g/dL Current Medications Generic Name Dose Route Start Last Admin Trade Name Freq PRN Reason Stop Dose Admin Acetaminophen 650 mg 01/30/25 18:03 Acetaminophen Tab 325 Mg Tab PO Q6HR PRN Mild Pain or Fever > 100.5 Aspirin 81 mg 01/31/25 09:00 Aspirin 81 Mg PO DAILY MAGY Chlordiazepoxide HCl 100 mg 01/30/25 15:36 Chlordiazepoxide 25 Mg Cap PO Q4HR PRN Ciwa 10 or greater Chlordiazepoxide HCl 75 mg 01/30/25 15:36 Chlordiazepoxide 25 Mg Cap PO Q4HR PRN Ciwa 8 To 9 Chlordiazepoxide HCl 50 mg 01/30/25 15:36 01/31/25 00:50 Chlordiazepoxide 25 Mg Cap PO 50 mg Q4HR PRN Administration Ciwa 6 To 7 Chlordiazepoxide HCl 25 mg 01/30/25 15:36 Chlordiazepoxide 25 Mg Cap PO Q4HR PRN Ciwa 4 To 5 Famotidine 20 mg 01/30/25 21:00 01/30/25 20:21 Famotidine 20 Mg Tab PO 20 mg BID MAGY Administration Folic Acid 1 mg 01/31/25 09:00 Folic Acid 1 Mg Tab PO DAILY MAGY Hydralazine HCl 50 mg 01/30/25 18:30 01/31/25 01:29 Hydralazine Hcl 50 Mg Tab PO 50 mg TID MAGY Administration Dextrose/Sodium Chloride 1,000 mls @ 20 mls/hr 01/30/25 15:45 01/30/25 15:48 Dextrose 5%-1/2ns Iv Soln IV 20 mls/hr .Q24H MAGY Administration Ketorolac Tromethamine 15 mg 01/30/25 18:12 01/30/25 18:40 Ketorolac 15 Mg/Ml 1 Ml Vial IVP 02/04/25 18:12 15 mg Q6HR PRN Administration Pain Lorazepam 1 mg 01/30/25 15:36 Lorazepam 1 Mg Tab PO Q1HR PRN Alcohol Withdrawal Lorazepam 2 mg 01/30/25 18:07 Lorazepam 1 Mg/0.5 Ml Vial IV Q6HR PRN Seizures Losartan Potassium 50 mg 01/31/25 09:00 Losartan 50 Mg Tab PO DAILY [facility] Melatonin 5 mg 01/30/25 21:58 01/30/25 22:08 Melatonin 5 Mg Tablet PO 5 mg HS PRN Administration Insomnia Morphine Sulfate 4 mg 01/30/25 16:03 Morphine Sulfate 4 Mg/Ml Syringe IV Q4HR PRN Severe Pain (Scale 7 to 10) Multivitamins 1 each 01/30/25 15:45 01/30/25 15:48 Multivitamins, Thera 1 Each Tab PO 1 each DAILY MAGY Administration Naloxone HCl 0.2 mg 01/30/25 16:03 Naloxone 0.4 Mg/Ml 1 Ml Vial IV Q2M PRN Opioid Reversal Nicotine 1 patch 01/30/25 20:00 01/30/25 20:21 Nicotine 14mg/24hr Patch TRANSDERM 1 patch DAILY MAGY Administration Ondansetron HCl 4 mg 01/30/25 16:03 01/30/25 18:43 Ondansetron 4 Mg/2 Ml Vial IVP 4 mg Q8HR PRN Administration Nausea And Vomiting Thiamine HCl 100 mg 01/31/25 09:00 Thiamine 100 Mg Tab PO DAILY MAGY Ticagrelor 90 mg 01/31/25 09:00 Ticagrelor 90 Mg Tab PO BID MAGY Tramadol HCl 50 mg 01/30/25 16:03 01/30/25 20:36 Tramadol 50 Mg Tab PO 50 mg Q6H PRN Administration Moderate Pain (Scale 4 to 6) Intake and Output 01/30/25 01/31/25 01/31/25 22:59 06:59 14:59 Output Total 500 600 Balance -500 -600 Output: Urine 500 600 Other: Voiding Method External Catheter # Voids 1 Weight 69.853 kg 01/30/25 13:29 01/30/25 13:29
[2025-01-31] MEDS ORDERED: LORazepam 1 MG TAB PO PRN ×3 (15:07)
[2025-01-31] MEDS ORDERED: LORazepam 0.5 MG TAB PO PRN (15:07)
[2025-01-31] MEDS: IOPAMIDOL CONTRAST (ORAL USE) VIAL PO PRN (15:30)
[2025-01-31] MEDS: PANTOPRAZOLE 40 MG/10 ML VIAL IVP SCH (16:02)
[2025-01-31] MEDS: IBUPROFEN 800 MG TAB PO SCH (16:02)
[2025-01-31] MEDS: HYDROmorphone 0.5 MG/0.5 ML SYRINGE IVP PRN (16:03)
--- NOTE | 2025-01-31 16:20 | XR ---
EXAMINATION TYPE: XR pelvis AP view DATE OF EXAM: 01/31/2025 4:08 PM COMPARISON: None. CLINICAL INDICATION: Female, 64 years old with history of with both hips, pain TECHNIQUE: XR pelvis AP view views were obtained FINDINGS: No evidence for fracture, dislocation or bony lesion. Joint spaces are well-preserved. S I joints appear symmetric. IMPRESSION: No acute fracture or dislocation seen. [facility], , 01/31/2025 4:18 PM
--- NOTE | 2025-01-31 17:25 | CT ---
EXAMINATION TYPE: CT abdomen pelvis wo con DATE OF EXAM: 01/31/2025 5:15 PM COMPARISON: 05/05/2024 CLINICAL INDICATION: Female, 64 years old with history of diverticuitis, Diverticulitis. TECHNIQUE: Axial images with sagittal coronal reformats. Examination of the solid and hollow viscera is limited given the lack of contrast. CT DLP: 632.4 mGycm, Automated exposure control for dose reduction was used. FINDINGS: LUNG BASES: No evidence for nodule. No evidence for infiltrate. LIVER/GB: The gallbladder is surgically absent. No space-occupying hepatic lesion. PANCREAS: No pancreatic mass identified. No inflammatory process seen. SPLEEN: No evidence for splenomegaly. No intrasplenic lesions seen. ADRENALS: No adrenal nodules identified. No evidence for thickening. KIDNEYS: No evidence for renal mass. No nephrolithiasis. No hydronephrosis. BOWEL: Appendix has a normal appearance. No evidence of bowel obstruction. There is wall thickening a nd inflammatory changes noted involving the proximal sigmoid colon and rectum compatible with proctoc olitis. No evidence of perforation or abscess. No free air visible. Lymph nodes: No evidence for adenopathy greater than 1 cm. Abdominal aorta: Atheromatous changes seen. No evidence for aneurysm. Genital organs: No significant abnormality. Other: Mild chronic loss of height involving L4. Moderate to severe multilevel degenerative disc spac e narrowing. IMPRESSION: There is wall thickening and inflammatory changes noted involving the proximal sigmoid colon and rect um compatible with uncomplicated proctocolitis. [facility], , 01/31/2025 5:23 PM
[2025-01-31] MEDS: CYCLOBENZAPRINE 5 MG TAB PO PRN (18:43)
--- NOTE | 2025-01-31 20:06 | HP ---
HISTORY AND PHYSICAL CHIEF COMPLAINT: Chest pain, abdominal pain, and left hip pain. HISTORY OF PRESENT ILLNESS: This is a 64-year-old woman with history of multiple medical problems, admitted with chest pain, lower abdominal pain as well left hip pain. The patient also had a recent fall. There is no history of any fever, rigors, or chills at this time. PAST MEDICAL HISTORY: Reviewed include asthma, COPD, CAD and the rest of the history in charts are also reviewed. HOME MEDICATIONS: Reviewed include Motrin. Doses and rest of medications are reviewed. ALLERGIES: Adhesives. Rest of allergies reviewed. FAMILY HISTORY: History of CHF, CAD. SOCIAL HISTORY: Alcohol abuse, smoking. REVIEW OF SYSTEMS: 14-point review of systems negative except as mentioned earlier. PHYSICAL EXAMINATION: VITAL SIGNS: Pulse is 85, blood pressure n, respirations 16. HEENT: Conjunctivae normal. NECK: No JVD. CARDIOVASCULAR: S1, S2. RESPIRATIONS: Breath sounds diminished at the bases. Scattered rhonchi. ABDOMEN: Soft. Mild diffuse tenderness at the lower abdomen. No guarding. No rigidity. LEGS: Movement of the left hip is painful. NERVOUS SYSTEM: No focal deficits. LABORATORY DATA: Reviewed. ASSESSMENT: 1. Chest pain, possible unstable angina. 2. Lower abdominal pain, possible acute diverticulitis. 3. Acute alcoholic intoxication. 4. Left hip pain, rule out hip fracture. 5. History of coronary artery disease. 6. Hypertension. 7. History of liver disease. 8. Seizure disorder. 9. Multiple complex medical issues. 10.History of EtOH. RECOMMENDATIONS AND DISCUSSION: This is a 64-year-old woman who presented with multiple complex medical issues. We will monitor the patient closely. Recommend to continue with current medications, symptomatic treatment. Otherwise, WA protocol and symptomatic treatment. I would also recommend CT scan of the abdomen and pelvis as well as pelvic x-rays also. Cardiology input appreciated. Prognosis is guarded. Further recommendations to follow. MMODL / IJN: [id number] / MTDBreann
[2025-01-31] MEDS ORDERED: NON FORMULARY DRUG (Aspirin Ec 81 MG Tablet.Dr) PO SCH (21:00)
[2025-01-31] MEDS ORDERED: TICAGRELOR 90 MG TAB PO SCH (21:00)
[2025-01-31] MEDS: SYMBICORT 160-4.5 MCG INHALER INHALATION SCH (21:15)
[2025-01-31] MEDS: ISOSORBIDE MONONITRATE ER 30 MG TAB.ER.24H PO SCH (21:35)
[2025-01-31] MEDS: METOPROLOL SUCCINATE (ER) 50 MG TAB.ER.24H PO SCH (21:35)
[2025-01-31] MEDS: LOPERAMIDE 2 MG CAP PO STA (21:35)
[2025-02-01 05:42] LABS: Anisocytosis Slight; HCT 31.2 % (34.0-46.0); Hypochromasia Marked; MCH 27.3 pg (25.0-35.0); MCHC 31.3 g/dL (31.0-37.0); MCV 87.3 fL (80.0-100.0); Mean Platelet Volume 7.6; RBC 3.57 m/uL (3.80-5.40); WBC 5.4 k/uL (3.8-10.6)
[2025-02-01 06:18] LABS: HGB 9.7 gm/dL (11.4-16.0)
[2025-02-01 06:19] LABS: Platelet Count 182 k/uL (150-450)
[2025-02-01] MEDS ORDERED: PANTOPRAZOLE 40 MG TABLET PO SCH (09:00)
[2025-02-01] MEDS: TICAGRELOR 90 MG TAB PO SCH (09:04)
[2025-02-01] MEDS: ATORVASTATIN 80 MG TAB PO SCH (09:04)
[2025-02-01] MEDS: PIPERACILLIN-TAZOBACTAM 3.375 GM in SODIUM CHLORIDE 0.9% 100 ML IVPB SCH (12:28)
[2025-02-01] MEDS: HYDROcodone/APAP 5-325MG 1 EACH TAB PO PRN (20:47)
--- NOTE | 2025-02-01 22:33 | PN ---
PROGRESS NOTE DATE OF SERVICE: 02/01/2025 SUBJECTIVE: This 64-year-old woman, who is admitted with chest pain, also lower abdominal pain, proctocolitis as noted in the CAT scan. I would start empiric antibiotics. No chest pain. No palpitation. PHYSICAL EXAMINATION: VITAL SIGNS: Pulse is 63, blood pressure 137/78, and respirations 16. CHEST: Clear to auscultation. CARDIOVASCULAR: S1, S2. ABDOMEN: Soft. Mild tenderness in the lower part. LABORATORY DATA: Noted. ASSESSMENT: 1. Abdominal pain, possible acute proctocolitis. 2. Chest pain improved. 3. Acute alcohol intoxication. 4. Left hip pain, possibly musculoskeletal. 5. Multiple complex medical issues. RECOMMENDATIONS: Recommend to continue current management and continue symptomatic treatment. Broad- spectrum IV antibiotics. I recommend repeat labs in the morning. Symptomatic treatment closely. The patient will require a full cardiac workup as an outpatient. Further recommendations to follow. KALPANA / JEREMYN: [id number] /
[2025-02-02 00:58] VITALS: RESP 17
[2025-02-02 08:44] LABS: ALT 14 U/L (8-44); AST 24 U/L (13-35); Albumin/Globulin Ratio 1.58 Ratio (1.60-3.17); Alkaline Phosphatase 142 U/L (41-126); BUN/Creat Ratio 12.67 Ratio (12.00-20.00); Blood Urea Nitrogen 7.6 mg/dL (9.0-27.0); Calcium 7.9 mg/dL (8.7-10.3); Carbon Dioxide 25.6 mmol/L (21.6-31.8); Chloride 106 mmol/L (96-109); Globulin 1.9 g/dL (1.6-3.3); Glucose 96 mg/dL (70-110); Potassium 4.1 mmol/L (3.5-5.5); Sodium 141 mmol/L (135-145); Total Bilirubin <0.2 mg/dL (0.3-1.2); Total Protein 4.9 g/dL (6.2-8.2)
[2025-02-02 08:45] LABS: Basophils # (A) 0.07 X 10*3/uL (0.00-0.10); Eosinophils # (A) 0.22 X 10*3/uL (0.04-0.35); HCT 27.8 % (37.2-46.3); HGB 8.4 g/dL (12.0-15.0); Lymphocytes # (A) 1.42 X 10*3/uL (0.90-5.00); Lymphocytes % (A) 19.7 %; MCH 26.6 pg (27.0-32.0); MCHC 30.2 g/dL (32.0-37.0); Mean Platelet Volume 10.2 FL (9.5-12.2); Monocytes # (A) 0.48 X 10*3/uL (0.20-1.00); Monocytes % (A) 6.6 %; NRBC Per 100 WBC 0 X 10*3/uL (0.00-0.01); Neutrophils # (A) 5.01 X 10*3/uL (1.80-7.70); Neutrophils % (A) 69.4 %; Platelet Count 161 X 10*3/uL (140-440); RBC 3.16 X 10*6/uL (4.10-5.20); WBC 7.22 X 10*3/uL (4.50-10.00)
[2025-02-02 15:08] VITALS: BP 181/78; PULSE 81; TEMP 98.3
--- NOTE | 2025-02-02 15:52 | CDI ---
Documentation Clarification Form Date: 02/02/2025 03:10:13 PM From: Clemencia Layne RN, CCDS Phone: [phone] Admit Date: 01/30/2025 04:05:00 PM Patient Name: Anna Marie Valladares Visit Number: [id number] Discharge Date: ATTENTION: The Clinical Documentation Specialists (CDI) and [facility] Coding Staff appreciate your assistance in clarifying documentation. Please respond to the clarification below the line at the bottom and electronically sign. The CDI & [facility] Coding staff will review the response and follow-up if needed. Please note: Queries are made part of the Legal Health Record. If you have any questions, please contact the author of this message via ITS. Doctor. Mark Cardoza There is documentation of possible acute proctocolitis in the progress notes starting on 02/02/24. Additional clarification is requested. History/Risk Factors: Lower abdominal pain, liver disease, Alcohol abuse Clinical Indicators: 64-year-old presented with complaints of chest pain and lower abdominal pain. 01/30 VS (16:53) 100/64 80 16 97.8 97% 01/30 Labs: WBC 7.7, AST 50, ALK PHOS 129, Serum Alcohol 251 CT abdominal/pelvis: There is wall thickening and inflammatory changes noted involving the proximal sigmoid colon and rectum compatible with uncomplicated proctocolitis. Treatment: Zosyn 3.375 GM IVPB Q 8 HRS Can you please further clarify the cause of the proctocolitis if known? [ ] Allergic [ ] Food-induced eosinophilic [ ] Food protein-induced [ ] Milk protein-induced [ ] Mucosal [ x ] Other, please specify ____chronic alcohol use and loose stools____ [ ] Unable to determine (Template Last Revised: January 2021) MTDD
--- NOTE | 2025-02-05 14:54 | P.DS ---
Providers Date of admission: 01/30/25 16:05 Expected date of discharge: 02/02/25 Attending physician: Travis Barron MD Consults: 01/30/25 16:03 Consult Physician Routine Consulting Provider: Maura Rosales Consult Reason/Comments: chest pain Do you want consulting provider notified?: Yes, Notify in am Primary care physician: Miya Johnson Hospital Course: Final diagnosis Chest pain, ruled out ACS, resolved Acute alcohol intoxication with concerns of acute alcohol withdrawal Left hip pain, musculoskeletal Abdominal pain with proctocolitis, noted on imaging likely secondary to chronic alcohol use and frequent loose stools History of asthma/COPD, not in exacerbation History of CVA/TIA Eye disorder Hypertension history Liver disease Seizure disorder History of IBS Anxiety/depression Continued ongoing nicotine abuse Daily alcohol use GI prophylaxis DVT prophylaxis Full code Discharge disposition Patient is being discharged in a stable condition with guarded prognosis to home. Patient will follow-up with Dr. Sherman Cardoza in the outpatient setting upon discharge. Patient is to continue with current medications and outpatient follow-up with cardiology as scheduled. Total time taken is greater than 35 minutes. Hospital course This is a 64-year-old female who was recently admitted with chest pain and EtOH alcohol intoxication being closely monitored with cardiology following. Patient did undergo CT scan of the abdomen as patient was having some abdominal pain and multiple episodes of loose stools. Concerns for possible proctocolitis and was started on empiric antibiotics. Patient will continue on oral Augmentin on discharge and recommend outpatient follow-up for further endoscopic studies. Strongly encouraged continued complete alcohol cessation. Patient to follow-up with cardiology outpatient. Please refer to other consultation notes for further HPI. Currently no reports of chest pain, shortness of breath, or palpitations. Patient is afebrile. No reports of nausea or vomiting and patient is tolerating diet. Patient will be discharged home today. Guarded prognosis and high risk for readmissions given patient noncompliant and continued alcohol abuse. Patient is noncompliant with medications and follow-up as well. Physical exam: Gen: This is a 64-year-old female who is awake, alert and oriented x 3, well- developed, elderly appearing HEENT: Head is atraumatic, normocephalic. Pupils equal, round. Sclerae is anicteric. NECK: Supple. No JVD. No lymphadenopathy. No thyromegaly. LUNGS: Diminished breath sounds bilaterally otherwise clear to auscultation. No wheezes or rhonchi. No intercostal retractions. HEART: S1, S2 are muffled ABDOMEN: Soft. Obese, bowel sounds are present. No masses. No tenderness. EXTREMITIES: No pedal edema. No calf tenderness. NEUROLOGICAL: Patient is awake, alert and oriented x3. Cranial nerves 2 through 12 are grossly intact. Please refer to medication reconciliation sheet for a list of medications. The impression and plan of care has been dictated by Tonya Adan, Nurse Practitioner as directed. Dr. Kisha MD I have performed a history and examination and MDM of this patient, discussed the same with the dictator, and agree with the dictator's assessment and plan as written ,documented as a scribe. Based on total visit time, I have performed more than 50% of the visit. Patient Condition at Discharge: Stable Plan - Discharge Summary Discharge Rx Participant: No New Discharge Prescriptions: New hydrALAZINE HCL [Apresoline] 50 mg PO TID #90 tab Folic Acid 1 mg PO DAILY #30 tab Acetaminophen Tab [Tylenol] 650 mg PO Q6HR PRN tab PRN Reason: Mild Pain Or Fever > 100.5 Thiamine [Vitamin B-1] 100 mg PO DAILY #30 tab Losartan [Cozaar] 50 mg PO DAILY #30 tab Multivitamins, Thera [Multivitamin (formulary)] 1 each PO DAILY #30 tab Continue Budesonide/Formoterol Fumarate [Symbicort 160-4.5 Mcg Inhaler] 2 puff INHALATION RT-BID Aspirin EC [Ecotrin Low Dose] 81 mg PO HS #90 tab Isosorbide Mononitrate ER [Imdur] 30 mg PO HS #90 tab Metoprolol Succinate (ER) [Toprol XL] 50 mg PO HS #90 tab Albuterol Nebulized [Ventolin Nebulized] 2.5 mg INHALATION RT-Q6H PRN PRN Reason: Shortness Of Breath Nicotine 21Mg/24Hr Patch [Habitrol] 1 patch TRANSDERM DAILY Pantoprazole [Protonix] 40 mg PO DAILY Atorvastatin [Lipitor] 80 mg PO DAILY Fluticasone Propionate [Flonase Allergy Relief] 1 spray EA NOSTRIL DAILY Albuterol Sulfate [Ventolin HFA] 1 - 2 puff INHALATION RT-Q6H PRN PRN Reason: Shortness Of Breath Brimonidine Tartrate [Alphagan P 0.2% Ophth Soln] 1 drop BOTH EYES BID Ticagrelor [Brilinta] 90 mg PO BID Ibuprofen [Motrin Ib] 800 mg PO Q8H Discharge Medication List Budesonide/Formoterol Fumarate [Symbicort 160-4.5 Mcg Inhaler] 2 puff INHALATION RT-BID 07/29/23 [History] Aspirin EC [Ecotrin Low Dose] 81 mg PO HS #90 tab 05/25/24 [Rx] Isosorbide Mononitrate ER [Imdur] 30 mg PO HS #90 tab 05/25/24 [Rx] Metoprolol Succinate (ER) [Toprol XL] 50 mg PO HS #90 tab 05/25/24 [Rx] Albuterol Sulfate [Ventolin HFA] 1 - 2 puff INHALATION RT-Q6H PRN 09/10/24 [History] Albuterol Nebulized [Ventolin Nebulized] 2.5 mg INHALATION RT-Q6H PRN 01/08/25 [History] Nicotine 21Mg/24Hr Patch [Habitrol] 1 patch TRANSDERM DAILY 01/08/25 [History] Pantoprazole [Protonix] 40 mg PO DAILY 01/08/25 [History] Atorvastatin [Lipitor] 80 mg PO DAILY 01/30/25 [History] Brimonidine Tartrate [Alphagan P 0.2% Ophth Soln] 1 drop BOTH EYES BID 01/30/25 [History] Fluticasone Propionate [Flonase Allergy Relief] 1 spray EA NOSTRIL DAILY 01/30/25 [History] Ibuprofen [Motrin Ib] 800 mg PO Q8H 01/30/25 [History] Ticagrelor [Brilinta] 90 mg PO BID 01/30/25 [History] Acetaminophen Tab [Tylenol] 650 mg PO Q6HR PRN tab 02/02/25 [Rx] Folic Acid 1 mg PO DAILY #30 tab 02/02/25 [Rx] Losartan [Cozaar] 50 mg PO DAILY #30 tab 02/02/25 [Rx] Multivitamins, Thera [Multivitamin (formulary)] 1 each PO DAILY #30 tab 02/02/25 [Rx] Thiamine [Vitamin B-1] 100 mg PO DAILY #30 tab 02/02/25 [Rx] hydrALAZINE HCL [Apresoline] 50 mg PO TID #90 tab 02/02/25 [Rx] Follow up Appointment(s)/Referral(s): Miay Johnson MD [Primary Care Provider] - 1-2 days Patient Instructions/Handouts: How to Stop Smoking (DC), Alcohol Intoxication (DC) Activity/Diet/Wound Care/Special Instructions: Activity limited until follow-up Follow-up with pcp follow up with cardio outpatient Discharge Disposition: HOME SELF-CARE
== END 2025-02-02 18:35 | disposition home or self-care (01) ==
LOC: EC 11:41 → EEVIPCON 11:41 → 6NMEDSUR 16:04 → INTOOBSV 16:05 → OBSVTOIN 16:05 → 6NMEDSUR 16:36
PROVIDERS: ADMIT Internal Medicine; ATTEND Internal Medicine
DX: R07.89 Other chest pain (principal); R10.9 Unspecified abdominal pain; F10.229 Alcohol dependence with intoxication, unspecified; M25.552 Pain in left hip; K52.1 Toxic gastroenteritis and colitis; F17.210 Nicotine dependence, cigarettes, uncomplicated; G40.909 Epilepsy, unspecified, not intractable, without status epilepticus; I10 Essential (primary) hypertension; I25.10 Atherosclerotic heart disease of native coronary artery without angina pectoris; I25.2 Old myocardial infarction; I69.351 Hemiplegia and hemiparesis following cerebral infarction affecting right dominant side; I69.328 Other speech and language deficits following cerebral infarction; R13.10 Dysphagia, unspecified; K62.89 Other specified diseases of anus and rectum; G89.29 Other chronic pain; I69.311 Memory deficit following cerebral infarction; F41.9 Anxiety disorder, unspecified; F32.A Depression, unspecified; J44.89 Other specified chronic obstructive pulmonary disease; K70.30 Alcoholic cirrhosis of liver without ascites; W19.XXXA Unspecified fall, initial encounter; H57.9 Unspecified disorder of eye and adnexa; S32.049S Unspecified fracture of fourth lumbar vertebra, sequela; Y90.8 Blood alcohol level of 240 mg/100 ml or more; Z79.02 Long term (current) use of antithrombotics/antiplatelets; Z79.82 Long term (current) use of aspirin; Z79.51 Long term (current) use of inhaled steroids; Z79.899 Other long term (current) drug therapy; Z88.5 Allergy status to narcotic agent; Z88.7 Allergy status to serum and vaccine; Z88.8 Allergy status to other drugs, medicaments and biological substances; Z91.040 Latex allergy status; Z28.21 Immunization not carried out because of patient refusal; Z91.148 Patient's other noncompliance with medication regimen for other reason; Z82.49 Family history of ischemic heart disease and other diseases of the circulatory system
CPT/HCPCS: 96376 ×5; 96365; 96366 ×2; 96375 ×2; 96361; 96372; 99285; 36415; 94640 ×3; 93005; 83880; 80053 ×2; 83690; 83735; 84484; 85025 ×2; 85027; 85610; 85730; 81001; 72170; 71046; 72125; 70450; 74176; G0378 ×4; G0480; S4990 ×3; J2543 ×2; J2060; J3411; J2405; J2270; J1885 ×2; J1171; J2470 ×3; 80320; 96374

== ENCOUNTER 2025-02-15 20:07 | Emergency (ER) | payer OTHER ==
[2025-02-15 20:14] VITALS: BP 118/79; PULSE 88; RESP 18; TEMP 97.6
--- NOTE | 2025-02-15 20:49 | ED ---
Alcohol HPI - General Stated Complaint: Back Pain Time Seen by Provider: 02/15/25 20:11 Source: patient, EMS, RN notes reviewed Mode of arrival: EMS Limitations: no limitations - History of Present Illness Initial Comments: This is a 65 female to the ER for evaluation patient presents today for evaluation regards to severe back pain acutely intoxicated, patient when she gets the emergency room by EMS stating she no longer wants evaluation and prefers discharge MD Complaint: alcohol intoxication Last Drink: just [employer] Previous Visits for Alcohol Intoxication?: Yes Recent Trauma: Yes Associated Symptoms: nausea, vomiting Treatments Prior to Arrival: none Chronic Alcohol Use: Yes - Related Data Home Medications Medication Instructions Recorded Confirmed Budesonide/Formoterol Fumarate 2 puff INHALATION RT-BID 07/29/23 01/30/25 [Symbicort 160-4.5 Mcg Inhaler] Albuterol Sulfate [Ventolin HFA] 1 - 2 puff INHALATION RT-Q6H PRN 09/10/24 01/30/25 Albuterol Nebulized [Ventolin 2.5 mg INHALATION RT-Q6H PRN 01/08/25 01/30/25 Nebulized] Nicotine 21Mg/24Hr Patch [Habitrol] 1 patch TRANSDERM DAILY 01/08/25 01/30/25 Pantoprazole [Protonix] 40 mg PO DAILY 01/08/25 01/30/25 Atorvastatin [Lipitor] 80 mg PO DAILY 01/30/25 01/30/25 Brimonidine Tartrate [Alphagan P 1 drop BOTH EYES BID 01/30/25 01/30/25 0.2% Ophth Soln] Fluticasone Propionate [Flonase 1 spray EA NOSTRIL DAILY 01/30/25 01/30/25 Allergy Relief] Ibuprofen [Motrin Ib] 800 mg PO Q8H 01/30/25 01/30/25 Ticagrelor [Brilinta] 90 mg PO BID 01/30/25 01/30/25 Previous Rx's Medication Instructions Recorded Aspirin EC [Ecotrin Low Dose] 81 mg PO HS #90 tab 05/25/24 Isosorbide Mononitrate ER [Imdur] 30 mg PO HS #90 tab 05/25/24 Metoprolol Succinate (ER) [Toprol 50 mg PO HS #90 tab 05/25/24 XL] Acetaminophen Tab [Tylenol] 650 mg PO Q6HR PRN tab 02/02/25 Folic Acid 1 mg PO DAILY #30 tab 02/02/25 Losartan [Cozaar] 50 mg PO DAILY #30 tab 02/02/25 Multivitamins, Thera [Multivitamin 1 each PO DAILY #30 tab 02/02/25 (formulary)] Thiamine [Vitamin B-1] 100 mg PO DAILY #30 tab 02/02/25 hydrALAZINE HCL [Apresoline] 50 mg PO TID #90 tab 02/02/25 Amoxic-Pot Clav 875-125Mg 1 tab PO Q12HR 7 Days #14 tab 02/09/25 [Augmentin 875-125] Allergies Allergy/AdvReac Type Severity Reaction Status Date / Time adhesive tape Allergy Rash/Hives Verified 02/15/25 20:14 latex Allergy Rash/Hives Verified 02/15/25 20:14 amlodipine [From Norvasc] AdvReac Cough Verified 02/15/25 20:14 cinnamon AdvReac Nausea Verified 02/15/25 20:14 clonidine AdvReac "almost Verified 02/15/25 20:14 passed out" gabapentin AdvReac Dizziness Verified 02/15/25 20:14 Influenza Virus Vaccines AdvReac Nausea & Verified 02/15/25 20:14 Vomiting lisinopril AdvReac Cough Verified 02/15/25 20:14 morphine AdvReac Nausea & Verified 02/15/25 20:14 Vomiting sucralfate [From Carafate] AdvReac Abdominal Verified 02/15/25 20:14 Pain tomato AdvReac Diarrhea Verified 02/15/25 20:14 Review of Systems ROS Statement: Those systems with pertinent positive or pertinent negative responses have been documented in the HPI. ROS Other: All systems not noted in ROS Statement are negative. Past Medical History Past Medical History: Asthma, Coronary Artery Disease (CAD), COPD, CVA/TIA, Eye Disorder, Hypertension, Liver Disease, Myocardial Infarction ([place]), Seizure Disorder, Vascular Disorder Additional Past Medical History / Comment(s): Pt recently admitted to [facility] for diarrhea, ETOH abuse. 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 Past Psychological History: Anxiety, Depression Smoking Status: Current every day smoker Past Alcohol Use History: Abuse, Daily, Heavy Past Drug Use History: Marijuana - Past Family History Mother Family Medical History: Cancer, Congestive Heart Failure (CHF), Coronary Artery Disease (CAD), Hyperlipidemia Additional Family Medical History / Comment(s): Mother at age 85 from lung cancer. Father Family Medical History: Cancer, COPD Additional Family Medical History / Comment(s): Father at age 63 from lung cancer. Brother(s) Additional Family Medical History / Comment(s): Patient has a total of 7 siblings. 5 are alive without any major medical problems she is aware of. 2 siblings have one from alcohol abuse and 1. Coronary artery disease. Daughter(s) Family Medical History: No Reported History Additional Family Medical History / Comment(s): Patient has one daughter with no major medical problems. General Exam General appearance: alert, in no apparent distress Head exam: Present: atraumatic, normocephalic, normal inspection Eye exam: Present: normal appearance, PERRL, EOMI. Absent: scleral icterus, conjunctival injection, periorbital swelling ENT exam: Present: normal exam, mucous membranes moist Neck exam: Present: normal inspection. Absent: tenderness, meningismus, lymphadenopathy Respiratory exam: Present: normal lung sounds bilaterally. Absent: respiratory distress, wheezes, rales, rhonchi, stridor Cardiovascular Exam: Present: regular rate, normal rhythm, normal heart sounds. Absent: systolic murmur, diastolic murmur, rubs, gallop, clicks GI/Abdominal exam: Present: soft, normal bowel sounds. Absent: distended, tenderness, guarding, rebound, rigid Extremities exam: Present: normal inspection, full ROM, normal capillary refill. Absent: tenderness, pedal edema, joint swelling, calf tenderness Back exam: Present: normal inspection Neurological exam: Present: alert, oriented X3, CN II-XII intact Psychiatric exam: Present: normal affect, normal mood Skin exam: Present: warm, dry, intact, normal color. Absent: rash Course Vital Signs 02/15/25 20:09 Temperature 97.6 F Pulse Rate 88 Respiratory 18 Rate Blood Pressure 118/79 O2 Sat by Pulse 97 Oximetry - Reevaluation(s) Reevaluation #1: 02/15/25 20:48 Medical records reviewed Reevaluation #2: 02/15/25 20:48 Patient refusing evaluation wants to discharge Reevaluation #3: 02/15/25 20:48 Patient reevaluated still wanting discharge Reevaluation #4: Was pt. sent in by a medical professional or institution ([facility]ESS[facility] Lloyd, [employer] DIRECTOR, urgent care, hospital, or retirement...) When possible be specific @ -no Did you speak to anyone other than the patient for history (EMS, parent, family, police, friend...)? What history was obtained from this source @ -no Did you review nursing and triage notes (agree or disagree)? Why? @ -agree Are old charts reviewed (outside hosp., previous admission, EMS record, old EKG, old radiological studies, urgent care reports/EKG's, retirement records)? Report findings @ -yes Differential Diagnosis (chest pain, altered mental status, abdominal pain women, abdominal pain men, vaginal bleeding, weakness, fever, dyspnea, syncope, headache, dizziness, GI bleed, back pain, seizure, CVA, palpatations, mental health, musculoskeletal)? @ -prior EKG interpreted by me (3pts min.). @ -yes X-rays interpreted by me (1pt min.). @ -yes negative for acute disease CT interpreted by me (1pt min.). @ -no U/S interpreted by me (1pt. min.). @ -no What testing was considered but not performed or refused? (CT, X-rays, U/S, labs)? Why? @ -none What meds were considered but not given or refused? Why? @ -none Did you discuss the management of the patient with other professionals (professionals i.e. , YESS[facility], [employer] DIRECTOR, lab, RT, psych nurse, social services director, deboner, teacher, bank officer, pillowcase cleaner)? Give summary @ -no Was smoking cessation discussed for >3mins.? @ -no Was critical care preformed (if so, how long)? @ -no Were there social determinants of health that impacted care today? How? (Homelessness, low income, unemployed, alcoholism, drug addiction, transportation, low edu. Level, literacy, decrease access to med. care, skilled nursing, rehab)? @ -none Was there de-escalation of care discussed even if they declined (Discuss DNR or withdrawal of care, Hospice)? DNR status @ -no What co-morbidities impacted this encounter? (DM, HTN, Smoking, COPD, CAD, Cancer, CVA, ARF, Chemo, Hep., AIDS, mental health diagnosis, sleep apnea, morbid obesity)? @ -none Was patient admitted / discharged? Hospital course, mention meds given and route, prescriptions, significant lab abnormalities, going to OR and other pertinent info. @ - Undiagnosed new problem with uncertain prognosis? @ -no Drug Therapy requiring intensive monitoring for toxicity (Heparin, Nitro, Insulin, Cardizem)? @ -no Were any procedures done? @ -no Diagnosis/symptom? @ - Acute, or Chronic, or Acute on Chronic? @ -Acute Uncomplicated (without systemic symptoms) or Complicated (systemic symptoms)? @ -Complicated Side effects of treatment? @ -no Exacerbation, Progression, or Severe Exacerbation? @ -exacerbation Poses a threat to life or bodily function? How? (Chest pain, [place], [place], pneumonia, PE, COPD, DKA, ARF, appy, cholecystitis, CVA, Diverticulitis, Homicidal, Suicidal, threat to staff... and all critical care pts) @ -yes Reevaluation #5: Differential Back Pain: Strain, zoster, cauda equina syndrome, epidural abscess, vertebral osteomyelitis, discitis, fracture, subluxation, disc herniation, DJD, spinal stenosis, dissection, AAA, pancreatitis, peptic ulcer disease, pyelonephritis, kidney stone, this is not meant to be an all-inclusive list. Medical Decision Making - Medical Decision Making 65 female to ER for back pain and alcohol intoxication. After conversation here in the ER patient does not want any further evaluation here and can be discharged home Disposition Clinical Impression: Alcohol intoxication, Back pain Disposition: HOME SELF-CARE Condition: Fair Instructions (If sedation given, give patient instructions): Back Pain (ED) Is patient prescribed a controlled substance at d/c from ED?: No Referrals: Miya Johnson MD [Primary Care Provider] - 1-2 days Time of Disposition: 20:40
== END 2025-02-15 20:50 | disposition home or self-care (01) ==
LOC: EC 20:07
DX: F10.129 Alcohol abuse with intoxication, unspecified (principal); M54.9 Dorsalgia, unspecified; F17.200 Nicotine dependence, unspecified, uncomplicated; Z91.048 Other nonmedicinal substance allergy status; Z88.8 Allergy status to other drugs, medicaments and biological substances; Z88.7 Allergy status to serum and vaccine; Z88.5 Allergy status to narcotic agent; Z91.040 Latex allergy status; Z91.018 Allergy to other foods
CPT/HCPCS: 99284

== ENCOUNTER 2025-03-20 21:35 | Emergency (ER) | payer OTHER ==
--- NOTE | 2025-03-20 21:50 | ED ---
General Adult HPI - General Chief complaint: Alcohol Stated complaint: ETOH, pain all over Time Seen by Provider: 03/20/25 21:38 Source: patient, EMS Mode of arrival: EMS Limitations: no limitations - History of Present Illness Initial comments: Dictation was produced using [employer] dictation software. please excuse any grammatical, word or spelling errors. Chief Complaint: 65-year-old female presents emergency department for total body pain History of Present Illness: Patient is 65-year-old female well-known to emergency department for multiple visitations for alcoholism and alcohol related issues. She has history of chronic pain states that she was at [facility] yesterday where she had a CAT scan and blood work. She was told she had some sort of infection but was not discharged with any antibiotics. She states that she was unhappy with the care she received there. States that she came here today for a second opinion states that her whole belly hurts. She states that in fact her whole body hurts. She states that she is anxious because people have been making her upset recently. Patient drinks alcohol daily. She has no intention to quit alcohol. The ROS documented in this emergency department record has been reviewed and confirmed by me. Those systems with pertinent positive or negative responses have been documented in the HPI. All other systems are other negative and/or noncontributory. - Related Data Home Medications Medication Instructions Recorded Confirmed Budesonide/Formoterol Fumarate 2 puff INHALATION RT-BID 07/29/23 01/30/25 [Symbicort 160-4.5 Mcg Inhaler] Albuterol Sulfate [Ventolin HFA] 1 - 2 puff INHALATION RT-Q6H PRN 09/10/24 01/30/25 Albuterol Nebulized [Ventolin 2.5 mg INHALATION RT-Q6H PRN 01/08/25 01/30/25 Nebulized] Nicotine 21Mg/24Hr Patch [Habitrol] 1 patch TRANSDERM DAILY 01/08/25 01/30/25 Pantoprazole [Protonix] 40 mg PO DAILY 01/08/25 01/30/25 Atorvastatin [Lipitor] 80 mg PO DAILY 01/30/25 01/30/25 Brimonidine Tartrate [Alphagan P 1 drop BOTH EYES BID 01/30/25 01/30/25 0.2% Ophth Soln] Fluticasone Propionate [Flonase 1 spray EA NOSTRIL DAILY 01/30/25 01/30/25 Allergy Relief] Ibuprofen [Motrin Ib] 800 mg PO Q8H 01/30/25 01/30/25 Ticagrelor [Brilinta] 90 mg PO BID 01/30/25 01/30/25 Previous Rx's Medication Instructions Recorded Aspirin EC [Ecotrin Low Dose] 81 mg PO HS #90 tab 05/25/24 Isosorbide Mononitrate ER [Imdur] 30 mg PO HS #90 tab 05/25/24 Metoprolol Succinate (ER) [Toprol 50 mg PO HS #90 tab 05/25/24 XL] Acetaminophen Tab [Tylenol] 650 mg PO Q6HR PRN tab 02/02/25 Folic Acid 1 mg PO DAILY #30 tab 02/02/25 Losartan [Cozaar] 50 mg PO DAILY #30 tab 02/02/25 Multivitamins, Thera [Multivitamin 1 each PO DAILY #30 tab 02/02/25 (formulary)] Thiamine [Vitamin B-1] 100 mg PO DAILY #30 tab 02/02/25 hydrALAZINE HCL [Apresoline] 50 mg PO TID #90 tab 02/02/25 Amoxic-Pot Clav 875-125Mg 1 tab PO Q12HR 7 Days #14 tab 02/09/25 [Augmentin 875-125] Allergies Allergy/AdvReac Type Severity Reaction Status Date / Time adhesive tape Allergy Rash/Hives Verified 02/15/25 20:14 latex Allergy Rash/Hives Verified 02/15/25 20:14 amlodipine [From Norvasc] AdvReac Cough Verified 02/15/25 20:14 cinnamon AdvReac Nausea Verified 02/15/25 20:14 clonidine AdvReac "almost Verified 02/15/25 20:14 passed out" gabapentin AdvReac Dizziness Verified 02/15/25 20:14 Influenza Virus Vaccines AdvReac Nausea & Verified 02/15/25 20:14 Vomiting lisinopril AdvReac Cough Verified 02/15/25 20:14 morphine AdvReac Nausea & Verified 02/15/25 20:14 Vomiting sucralfate [From Carafate] AdvReac Abdominal Verified 02/15/25 20:14 Pain tomato AdvReac Diarrhea Verified 02/15/25 20:14 Review of Systems ROS Statement: Those systems with pertinent positive or pertinent negative responses have been documented in the HPI. ROS Other: All systems not noted in ROS Statement are negative. Past Medical History Past Medical History: Asthma, Coronary Artery Disease (CAD), COPD, CVA/TIA, Eye Disorder, Hypertension, Liver Disease, Myocardial Infarction (NH), Seizure Disorder, Vascular Disorder Additional Past Medical History / Comment(s): Pt recently admitted to [facility] for diarrhea, ETOH abuse. 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 Past Psychological History: Anxiety, Depression Smoking Status: Current every day smoker Past Alcohol Use History: Abuse, Daily, Heavy Past Drug Use History: Marijuana - Past Family History Mother Family Medical History: Cancer, Congestive Heart Failure (CHF), Coronary Artery Disease (CAD), Hyperlipidemia Additional Family Medical History / Comment(s): Mother at age 85 from lung cancer. Father Family Medical History: Cancer, COPD Additional Family Medical History / Comment(s): Father at age 63 from lung cancer. Brother(s) Additional Family Medical History / Comment(s): Patient has a total of 7 siblings. 5 are alive without any major medical problems she is aware of. 2 siblings have one from alcohol abuse and 1. Coronary artery disease. Daughter(s) Family Medical History: No Reported History Additional Family Medical History / Comment(s): Patient has one daughter with no major medical problems. General Exam - General Exam Comments Initial Comments: PHYSICAL EXAM: General Impression: Alert and oriented x3, not in acute distress HEENT: Normocephalic atraumatic, extra-ocular movements intact, pupils equal and reactive to light bilaterally, mucous membranes moist. Cardiovascular: Heart regular rate and rhythm Chest: Able to complete full sentences, no retractions, no tachypnea Abdomen: abdomen soft, nonsurgical abdomen, non-distended, no organomegaly Musculoskeletal: Pulses present and equal in all extremities, no peripheral edema Motor: no focal deficits noted Neurological: CN II-XII grossly intact, no focal motor or sensory deficits noted Skin: Intact with no visualized rashes Psych: Normal affect and mood Limitations: no limitations Course Vital Signs 03/20/25 03/20/25 03/21/25 21:44 22:44 00:31 Pulse Rate 90 91 74 Respiratory 18 18 18 Rate Blood Pressure 80/60 90/61 94/60 O2 Sat by Pulse 97 96 96 Oximetry EKG Findings - EKG Comments: EKG Findings:: My EKG interpretation: Ventricular rate 92, sinus rhythm, DC interval 140, QRS 92, QTc 473. No DC prolongation, no QTC prolongation, no ST or T-wave changes noted. EKG compared to January 31, 2025 showing no changes. Overall, this EKG is unremarkable Medical Decision Making - Medical Decision Making Was pt. sent in by a medical professional or institution (, PA, [employer], urgent care, hospital, or care home...) When possible be specific @ -No Did you speak to anyone other than the patient for history (EMS, parent, family, police, friend...)? What history was obtained from this source @ -No Did you review nursing and triage notes (agree or disagree)? Why? @ -I reviewed and agree with nursing and triage notes Were old charts reviewed (outside hosp., previous admission, EMS record, old EKG, old radiological studies, urgent care reports/EKG's, care home records)? Report findings @ -No old charts were reviewed Differential Diagnosis (chest pain, altered mental status, abdominal pain women, abdominal pain men, vaginal bleeding, musculoskeletal, weakness, fever, dyspnea, syncope, headache, dizziness, GI bleed, back pain, seizure, CVA, palpatations, mental health)? @ -Differential Abdominal Pain Women: Appendicitis, Cholecystitis, diverticulosis, ischemic bowel, pancreatitis, hepatitis, UTI, gastroenteritis, AAA, incarcerated hernia, bowel obstruction, constipation, inflammatory bowel, hepatitis, peptic ulcer disease, splenic infarction, perforated viscus, vulvitis, ovarian torsion, PID, kidney stone, placenta abruption, this is not meant to be an all-inclusive list EKG interpreted by me (3pts min.). @ - X-rays interpreted by me (1pt min.). @ -None done CT interpreted by me (1pt min.). @ -None done U/S interpreted by me (1pt. min.). @ -None done What testing was considered but not performed or refused? (CT, X-rays, U/S, labs)? Why? @ -None What meds were considered but not given or refused? Why? @ -None Was smoking cessation discussed for >3mins.? @ -No Were there social determinants of health that impacted care today? How? (Homelessness, low income, unemployed, alcoholism, drug addiction, transportation, low edu. Level, literacy, decrease access to med. care, alf, rehab)? @ -Alcoholism Was there de-escalation of care discussed even if they declined (Discuss DNR or withdrawal of care, Hospice)? DNR status @ -No What co-morbidities impacted this encounter? (DM, HTN, Smoking, COPD, CAD, Cancer, CVA, ARF, Chemo, Hep., AIDS, mental health diagnosis, sleep apnea, morbid obesity)? @ -None Was patient admitted / discharged? Hospital course, mention meds given and route, prescriptions, significant lab abnormalities, going to OR and other pertinent info. @ -65-year-old female well-known to emergency department for multiple visitations. Every time she is in our emergency department she is drunk. Nonetheless patient has been evaluated by me multiple occasions. She appears to be at baseline. Vital signs stable. Patient no acute distress. Physical exa mination is benign. Did you discuss the management of the patient with other professionals (lynda ovalles i.e. , PA, [employer], lab, RT, psych nurse, adoption social worker, boat dispatcher, teacher, bank officer, home health care case manager)? Give summary @ -No Was critical care preformed (if so, how long)? @ -No Undiagnosed new problem with uncertain prognosis? @ -No Drug Therapy requiring intensive monitoring for toxicity (Heparin, Nitro, Insulin, Cardizem)? @ -No Were any procedures done? @ -No Diagnosis/symptom? Acute, or Chronic, or Acute on Chronic? Uncomplicated (without systemic symptoms) or Complicated (systemic symptoms)? @ -Chronic pain Side effects of treatment? @ -No Exacerbation, Progression, or Severe Exacerbation? @ -No Poses a threat to life or bodily function? How? (Chest pain, USA, NH, pneumonia, PE, COPD, DKA, ARF, appy, cholecystitis, CVA, Diverticulitis, Homicidal, Suicidal, threat to staff... and all critical care pts) @ -No - Lab Data Result diagrams: 03/20/25 22:43 03/20/25 23:10 Lab Results 03/20/25 03/20/25 Range/Units 22:43 23:10 WBC 7.60 (4.50-10.00) 10*3/uL RBC 3.77 L (4.10-5.20) 10*6/uL Hgb 9.9 L (12.0-15.0) g/dL Hct 30.7 L (37.2-46.3) % MCV 81.4 (80.0-97.0) fL MCH 26.3 L (27.0-32.0) pg MCHC 32.2 (32.0-37.0) g/dL Plt Count 212 (140-440) 10*3/uL MPV 9.6 (9.5-12.2) fL Immature Gran % (Auto) 0.4 % Neutrophils % 62.9 % Lymphocytes % 26.7 % Monocytes % 6.8 % Eosinophils % 1.8 % Basophils % 1.4 % Immature Gran # 0.03 (0.00-0.04) 10*3/uL Neutrophils # 4.77 (1.80-7.70) 10*3/uL Lymphocytes # 2.03 (0.90-5.00) 10*3/uL Monocytes # 0.52 (0.20-1.00) 10*3/uL Eosinophils # 0.14 (0.04-0.35) 10*3/uL Basophils # 0.11 H (0.00-0.10) 10*3/uL Sodium 134 L (137-145) mmol/L Potassium 3.7 (3.5-5.1) mmol/L Chloride 101 (98-107) mmol/L Carbon Dioxide 18 L (22-30) mmol/L Anion Gap 15 mmol/L BUN 4 L (7-17) mg/dL Creatinine 0.62 (0.52-1.04) mg/dL Est GFR (CKD-EPI)AfAm >90 (>60 ml/min/1.73 sqM) Est GFR (CKD-EPI)NonAf >90 (>60 ml/min/1.73 sqM) Glucose 87 (74-99) mg/dL Calcium 8.8 (8.4-10.2) mg/dL Total Bilirubin 0.4 (0.2-1.3) mg/dL AST 37 H (14-36) U/L ALT 16 (4-34) U/L Alkaline Phosphatase 125 (38-126) U/L Total Protein 6.4 (6.3-8.2) g/dL Albumin 3.6 (3.5-5.0) g/dL Lipase 300 (23-300) U/L Disposition Clinical Impression: Chronic pain Disposition: HOME SELF-CARE Condition: Fair Instructions (If sedation given, give patient instructions): Alcohol Intoxication (ED) Is patient prescribed a controlled substance at d/c from ED?: No Referrals: Miya Johnson MD [Primary Care Provider] - 1-2 days Time of Disposition: 21:50
[2025-03-20 21:53] VITALS: RESP 18
[2025-03-20 22:47] LABS: Basophils # (A) 0.11 10*3/uL (0.00-0.10); Basophils % (A) 1.4 %; Eosinophils # (A) 0.14 10*3/uL (0.04-0.35); Eosinophils % (A) 1.8 %; HCT 30.7 % (37.2-46.3); HGB 9.9 g/dL (12.0-15.0); Lymphocytes # (A) 2.03 10*3/uL (0.90-5.00); Lymphocytes % (A) 26.7 %; MCH 26.3 pg (27.0-32.0); MCHC 32.2 g/dL (32.0-37.0); MCV 81.4 fL (80.0-97.0); Mean Platelet Volume 9.6 fL (9.5-12.2); Monocytes # (A) 0.52 10*3/uL (0.20-1.00); Monocytes % (A) 6.8 %; Neutrophils # (A) 4.77 10*3/uL (1.80-7.70); Neutrophils % (A) 62.9 %; Platelet Count 212 10*3/uL (140-440); RBC 3.77 10*6/uL (4.10-5.20); RDW 19.1 % (11.5-14.5)
[2025-03-20] MEDS: HYDROmorphone 1 MG/ML 1 ML SYRINGE IM STA (22:47)
[2025-03-21 00:04] LABS: ALT 16 U/L (4-34); AST 37 U/L (14-36); African American GFR (CKD) >90 (>60 ml/min/1.73 sqM); Albumin 3.6 g/dL (3.5-5.0); Alkaline Phosphatase 125 U/L (38-126); Anion Gap 15 mmol/L; Blood Urea Nitrogen 4 mg/dL (7-17); Calcium 8.8 mg/dL (8.4-10.2); Carbon Dioxide 18 mmol/L (22-30); Chloride 101 mmol/L (98-107); Glucose 87 mg/dL (74-99); Lipase 300 U/L (23-300); Non-African American GFR(CKD) >90 (>60 ml/min/1.73 sqM); Potassium 3.7 mmol/L (3.5-5.1); Sodium 134 mmol/L (137-145); Total Bilirubin 0.4 mg/dL (0.2-1.3); Total Protein 6.4 g/dL (6.3-8.2)
[2025-03-21 00:32] VITALS: BP 94/60; PULSE 74
== END 2025-03-21 00:48 | disposition home or self-care (01) ==
LOC: EC 21:35
DX: G89.29 Other chronic pain (principal); F10.20 Alcohol dependence, uncomplicated; F17.200 Nicotine dependence, unspecified, uncomplicated; Z91.018 Allergy to other foods; Z88.7 Allergy status to serum and vaccine; Z88.5 Allergy status to narcotic agent; Z91.040 Latex allergy status; Z91.048 Other nonmedicinal substance allergy status; Z88.8 Allergy status to other drugs, medicaments and biological substances
CPT/HCPCS: 99285 ×2; 96372 ×2; 36415; 93005; 80053; 83690; 85025; J1171

== ENCOUNTER 2025-03-25 19:05 | Emergency (ER) | payer OTHER ==
[2025-03-25 19:13] VITALS: TEMP 98.9
--- NOTE | 2025-03-25 19:28 | ED ---
General Adult HPI - General Chief complaint: Dizziness Stated complaint: chest pain Time Seen by Provider: 03/25/25 19:07 Source: patient, EMS Mode of arrival: EMS Limitations: no limitations - History of Present Illness Initial comments: Dictation was produced using [employer] dictation software. please excuse any grammatical, word or spelling errors. Chief Complaint: 65-year-old female with palpitations History of Present Illness: 65-year-old female well-known to the emergency department for multiple visitations for cardiac complaints. She has had multiple cardiac workups with no parent causes. States she was here because she was having palpitations. Patient was brought in by EMS. Has any chest pain but think she is having a heart attack. The ROS documented in this emergency department record has been reviewed and confirmed by me. Those systems with pertinent positive or negative responses have been documented in the HPI. All other systems are other negative and/or noncontributory. - Related Data Home Medications Medication Instructions Recorded Confirmed Budesonide/Formoterol Fumarate 2 puff INHALATION RT-BID 07/29/23 01/30/25 [Symbicort 160-4.5 Mcg Inhaler] Albuterol Sulfate [Ventolin HFA] 1 - 2 puff INHALATION RT-Q6H PRN 09/10/24 01/30/25 Albuterol Nebulized [Ventolin 2.5 mg INHALATION RT-Q6H PRN 01/08/25 01/30/25 Nebulized] Nicotine 21Mg/24Hr Patch [Habitrol] 1 patch TRANSDERM DAILY 01/08/25 01/30/25 Pantoprazole [Protonix] 40 mg PO DAILY 01/08/25 01/30/25 Atorvastatin [Lipitor] 80 mg PO DAILY 01/30/25 01/30/25 Brimonidine Tartrate [Alphagan P 1 drop BOTH EYES BID 01/30/25 01/30/25 0.2% Ophth Soln] Fluticasone Propionate [Flonase 1 spray EA NOSTRIL DAILY 01/30/25 01/30/25 Allergy Relief] Ibuprofen [Motrin Ib] 800 mg PO Q8H 01/30/25 01/30/25 Ticagrelor [Brilinta] 90 mg PO BID 01/30/25 01/30/25 Previous Rx's Medication Instructions Recorded Aspirin EC [Ecotrin Low Dose] 81 mg PO HS #90 tab 05/25/24 Isosorbide Mononitrate ER [Imdur] 30 mg PO HS #90 tab 05/25/24 Metoprolol Succinate (ER) [Toprol 50 mg PO HS #90 tab 05/25/24 XL] Acetaminophen Tab [Tylenol] 650 mg PO Q6HR PRN tab 02/02/25 Folic Acid 1 mg PO DAILY #30 tab 02/02/25 Losartan [Cozaar] 50 mg PO DAILY #30 tab 02/02/25 Multivitamins, Thera [Multivitamin 1 each PO DAILY #30 tab 02/02/25 (formulary)] Thiamine [Vitamin B-1] 100 mg PO DAILY #30 tab 02/02/25 hydrALAZINE HCL [Apresoline] 50 mg PO TID #90 tab 02/02/25 Amoxic-Pot Clav 875-125Mg 1 tab PO Q12HR 7 Days #14 tab 02/09/25 [Augmentin 875-125] Allergies Allergy/AdvReac Type Severity Reaction Status Date / Time adhesive tape Allergy Rash/Hives Verified 02/15/25 20:14 latex Allergy Rash/Hives Verified 02/15/25 20:14 amlodipine [From Norvasc] AdvReac Cough Verified 02/15/25 20:14 cinnamon AdvReac Nausea Verified 02/15/25 20:14 clonidine AdvReac "almost Verified 02/15/25 20:14 passed out" gabapentin AdvReac Dizziness Verified 02/15/25 20:14 Influenza Virus Vaccines AdvReac Nausea & Verified 02/15/25 20:14 Vomiting lisinopril AdvReac Cough Verified 02/15/25 20:14 morphine AdvReac Nausea & Verified 02/15/25 20:14 Vomiting sucralfate [From Carafate] AdvReac Abdominal Verified 02/15/25 20:14 Pain tomato AdvReac Diarrhea Verified 02/15/25 20:14 Review of Systems ROS Statement: Those systems with pertinent positive or pertinent negative responses have been documented in the HPI. ROS Other: All systems not noted in ROS Statement are negative. Past Medical History Past Medical History: Asthma, Coronary Artery Disease (CAD), COPD, CVA/TIA, Eye Disorder, Hypertension, Liver Disease, Myocardial Infarction (AL), Seizure Disorder, Vascular Disorder Additional Past Medical History / Comment(s): Pt recently admitted to [facility] for diarrhea, ETOH abuse. 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 Past Psychological History: Anxiety, Depression Smoking Status: Current every day smoker Past Alcohol Use History: Abuse, Daily, Heavy Past Drug Use History: Marijuana - Past Family History Mother Family Medical History: Cancer, Congestive Heart Failure (CHF), Coronary Artery Disease (CAD), Hyperlipidemia Additional Family Medical History / Comment(s): Mother at age 85 from lung cancer. Father Family Medical History: Cancer, COPD Additional Family Medical History / Comment(s): Father at age 63 from lung cancer. Brother(s) Additional Family Medical History / Comment(s): Patient has a total of 7 siblings. 5 are alive without any major medical problems she is aware of. 2 siblings have one from alcohol abuse and 1. Coronary artery disease. Daughter(s) Family Medical History: No Reported History Additional Family Medical History / Comment(s): Patient has one daughter with no major medical problems. General Exam - General Exam Comments Initial Comments: PHYSICAL EXAM: General Impression: Alert and oriented x3, not in acute distress HEENT: Normocephalic atraumatic, extra-ocular movements intact, pupils equal and reactive to light bilaterally, mucous membranes moist. Cardiovascular: Heart regular rate and rhythm Chest: Able to complete full sentences, no retractions, no tachypnea Abdomen: abdomen soft, non-tender, non-distended, no organomegaly Musculoskeletal: Pulses present and equal in all extremities, no peripheral edema Motor: no focal deficits noted Neurological: CN II-XII grossly intact, no focal motor or sensory deficits noted Skin: Intact with no visualized rashes Psych: Normal affect and mood Limitations: no limitations Course Vital Signs 03/25/25 03/25/25 19:09 19:51 Temperature 98.9 F Pulse Rate 104 H 101 H Respiratory 18 16 Rate Blood Pressure 132/102 128/99 O2 Sat by Pulse 99 98 Oximetry EKG Findings - EKG Comments: EKG Findings:: My EKG interpretation: Ventricular rate 99, NC interval 120, QRS 97, QTc 429. No NC prolongation, no QTC prolongation, no ST or T-wave changes noted. Overall, this EKG is unremarkable Medical Decision Making - Medical Decision Making Was pt. sent in by a medical professional or institution (, PA, RN APPEALS, urgent care, hospital, or half-way...) When possible be specific @ -No Did you speak to anyone other than the patient for history (EMS, parent, family, police, friend...)? What history was obtained from this source @ -No Did you review nursing and triage notes (agree or disagree)? Why? @ -I reviewed and agree with nursing and triage notes Were old charts reviewed (outside hosp., previous admission, EMS record, old EKG, old radiological studies, urgent care reports/EKG's, half-way records)? Report findings @ -No old charts were reviewed Differential Diagnosis (chest pain, altered mental status, abdominal pain women, abdominal pain men, vaginal bleeding, musculoskeletal, weakness, fever, dyspnea, syncope, headache, dizziness, GI bleed, back pain, seizure, CVA, palpatations, mental health)? @ - Differential Palpitations: Ventricular arrhythmias, atrial arrhythmias, myocardial infarction, anemia, thyrotoxicosis, electrolyte imbalance, hypokalemia, pulmonary embolism, pulmonary disease, drugs, alcohol, anxiety, stress.... This is not meant to be an all-inclusive list. EKG interpreted by me (3pts min.). @ -As above X-rays interpreted by me (1pt min.). @ -None done CT interpreted by me (1pt min.). @ -None done U/S interpreted by me (1pt. min.). @ -None done What testing was considered but not performed or refused? (CT, X-rays, U/S, labs)? Why? @ -None What meds were considered but not given or refused? Why? @ -None Was smoking cessation discussed for >3mins.? @ -No Were there social determinants of health that impacted care today? How? (Homelessness, low income, unemployed, alcoholism, drug addiction, transportation, low edu. Level, literacy, decrease access to med. care, penitentiary, rehab)? @ -No Was there de-escalation of care discussed even if they declined (Discuss DNR or withdrawal of care, Hospice)? DNR status @ -No What co-morbidities impacted this encounter? (DM, HTN, Smoking, COPD, CAD, Cancer, CVA, ARF, Chemo, Hep., AIDS, mental health diagnosis, sleep apnea, morbid obesity)? @ -None Was patient admitted / discharged? Hospital course, mention meds given and route, prescriptions, significant lab abnormalities, going to OR and other pertinent info. @ -65-year-old female well-known to the emergency department for multiple visitations for cardiac related issues cardiac related complaints. Vital signs stable. Patient had significant workup multiple occasions. States she is here for palpitations. EKG is unremarkable. Labs are unremarkable. Patient monitored the emergency department for 1 hour and 11 minutes. Baseline. Patient discharged Did you discuss the management of the patient with other professionals (professionals i.e. , PA, RN APPEALS, lab, RT, psych nurse, social psychologist, urban gardening specialist, teacher, cash management officer, correctional case manager)? Give summary @ -No Was critical care preformed (if so, how long)? @ -No Undiagnosed new problem with uncertain prognosis? @ -No Drug Therapy requiring intensive monitoring for toxicity (Heparin, Nitro, Insulin, Cardizem)? @ -No Were any procedures done? @ -No Diagnosis/symptom? Acute, or Chronic, or Acute on Chronic? Uncomplicated (w ithout systemic symptoms) or Complicated (systemic symptoms)? @ -Palpitations Side effects of treatment? @ -No Exacerbation, Progression, or Severe Exacerbation? @ -No Poses a threat to life or bodily function? How? (Chest pain, USA, AL, pneumonia, PE, COPD, DKA, ARF, appy, cholecystitis, CVA, Diverticulitis, Homicidal, Suicidal, threat to staff... and all critical care pts) @ -No - Lab Data Result diagrams: 03/25/25 19:21 05/14/25 19:21 Lab Results 03/25/25 03/25/25 03/25/25 Range/Units 19:21 19:21 19:21 WBC 8.32 (4.50-10.00) 10*3/uL RBC 3.23 L (4.10-5.20) 10*6/uL Hgb 8.3 L D (12.0-15.0) g/dL Hct 26.2 L (37.2-46.3) % MCV 81.1 (80.0-97.0) fL MCH 25.7 L (27.0-32.0) pg MCHC 31.7 L (32.0-37.0) g/dL Plt Count 126 L (140-440) 10*3/uL MPV 10.7 (9.5-12.2) fL Immature Gran % (Auto) 0.2 % Neutrophils % 75.4 % Lymphocytes % 16.8 % Monocytes % 5.8 % Eosinophils % 1.1 % Basophils % 0.7 % Immature Gran # 0.02 (0.00-0.04) 10*3/uL Neutrophils # 6.27 (1.80-7.70) 10*3/uL Lymphocytes # 1.40 (0.90-5.00) 10*3/uL Monocytes # 0.48 (0.20-1.00) 10*3/uL Eosinophils # 0.09 (0.04-0.35) 10*3/uL Basophils # 0.06 (0.00-0.10) 10*3/uL Sodium 130 L (137-145) mmol/L Potassium 3.2 L (3.5-5.1) mmol/L Chloride 98 (98-107) mmol/L Carbon Dioxide 21 L (22-30) mmol/L Anion Gap 11 mmol/L BUN 5 L (7-17) mg/dL Creatinine 0.49 L (0.52-1.04) mg/dL Est GFR (CKD-EPI)AfAm >90 (>60 ml/min/1.73 sqM) Est GFR (CKD-EPI)NonAf >90 (>60 ml/min/1.73 sqM) Glucose 114 H (74-99) mg/dL Calcium 9.4 (8.4-10.2) mg/dL Troponin I <0.012 (0.000-0.034) ng/mL Disposition Clinical Impression: Palpitations Disposition: HOME SELF-CARE Condition: Good Instructions (If sedation given, give patient instructions): Heart Palpitations (ED) Is patient prescribed a controlled substance at d/c from ED?: No Referrals: Miya Johnson MD [Primary Care Provider] - 1-2 days Time of Disposition: 20:17
[2025-03-25 19:33] LABS: Basophils # (A) 0.06 10*3/uL (0.00-0.10); Basophils % (A) 0.7 %; Eosinophils # (A) 0.09 10*3/uL (0.04-0.35); Eosinophils % (A) 1.1 %; HCT 26.2 % (37.2-46.3); Lymphocytes % (A) 16.8 %; MCH 25.7 pg (27.0-32.0); MCHC 31.7 g/dL (32.0-37.0); MCV 81.1 fL (80.0-97.0); Mean Platelet Volume 10.7 fL (9.5-12.2); Monocytes # (A) 0.48 10*3/uL (0.20-1.00); Monocytes % (A) 5.8 %; Neutrophils # (A) 6.27 10*3/uL (1.80-7.70); Neutrophils % (A) 75.4 %; Platelet Count 126 10*3/uL (140-440); RBC 3.23 10*6/uL (4.10-5.20); RDW 19.3 % (11.5-14.5); WBC 8.32 10*3/uL (4.50-10.00)
[2025-03-25 19:36] LABS: HGB 8.3 g/dL (12.0-15.0)
[2025-03-25 19:46] LABS: African American GFR (CKD) >90 (>60 ml/min/1.73 sqM); Anion Gap 11 mmol/L; Blood Urea Nitrogen 5 mg/dL (7-17); Calcium 9.4 mg/dL (8.4-10.2); Carbon Dioxide 21 mmol/L (22-30); Chloride 98 mmol/L (98-107); Glucose 114 mg/dL (74-99); Non-African American GFR(CKD) >90 (>60 ml/min/1.73 sqM); Potassium 3.2 mmol/L (3.5-5.1); Sodium 130 mmol/L (137-145)
[2025-03-25 20:40] VITALS: BP 112/89; PULSE 94; RESP 18
== END 2025-03-25 20:39 | disposition home or self-care (01) ==
LOC: EC 19:05 → EEVIPCON 19:05 → EC 20:39
DX: R00.2 Palpitations (principal); F17.200 Nicotine dependence, unspecified, uncomplicated; Z91.018 Allergy to other foods; Z88.5 Allergy status to narcotic agent; Z88.8 Allergy status to other drugs, medicaments and biological substances; Z91.048 Other nonmedicinal substance allergy status; Z91.040 Latex allergy status; Z88.7 Allergy status to serum and vaccine
CPT/HCPCS: 36415; 80048; 84484; 85025; 99284

== ENCOUNTER 2025-04-14 20:05 | Emergency (ER) | payer OTHER ==
--- NOTE | 2025-04-14 21:05 | ED ---
Extremity Problem HPI - General Chief complaint: Extremity Problem,Nontraumatic Stated complaint: MARY ALICE chest pain Time Seen by Provider: 04/14/25 20:22 Source: patient, EMS, RN notes reviewed Mode of arrival: EMS Limitations: no limitations - History of Present Illness Initial comments: This is a well-known 65-year-old female with history including EtOH abuse, CAD, COPD, CVA, AMI presenting via EMS for chest pain and shortness of breath x 4 d ays. Patient states she attempted a shot of vodka and whiskey for shortness of breath with no relief. Patient was recently admitted on 04/12/2025 for elevated troponin with negative cardiac workup prior to discharge with ongoing symptoms, causing patient to return to ER. Patient endorses pain in right shoulder radiating from neck. Denies fever, chills, dizziness, diaphoresis, cough, abdominal pain, N/V/D. Onset/Timin -: days(s) History of Same: Yes Associated Symptoms: chest pain, shortness of breath - Related Data Home Medications Medication Instructions Recorded Confirmed Budesonide/Formoterol Fumarate 2 puff INHALATION RT-BID 07/29/23 04/12/25 [Symbicort 160-4.5 Mcg Inhaler] Albuterol Sulfate [Ventolin HFA] 2 puff INHALATION RT-Q6H PRN 09/10/24 04/12/25 Albuterol Nebulized [Ventolin 2.5 mg INHALATION RT-Q6H PRN 01/08/25 04/12/25 Nebulized] Brimonidine Tartrate [Alphagan P 1 drop BOTH EYES BID 01/30/25 04/12/25 0.2% Ophth Soln] Ticagrelor [Brilinta] 90 mg PO BID 01/30/25 04/12/25 Previous Rx's Medication Instructions Recorded Aspirin EC [Ecotrin Low Dose] 81 mg PO HS #90 tab 05/25/24 Isosorbide Mononitrate ER [Imdur] 30 mg PO HS #90 tab 05/25/24 Metoprolol Succinate (ER) [Toprol 50 mg PO HS #90 tab 05/25/24 XL] Losartan [Cozaar] 50 mg PO DAILY #30 tab 02/02/25 hydrALAZINE HCL [Apresoline] 50 mg PO TID #90 tab 02/02/25 Benzocaine/Menthol Lozeng [Cepacol 1 each MUCOUS MEM Q4HR PRN lozenge 04/13/25 lozenge] Nicotine 14Mg/24Hr Patch [Habitrol] 1 patch TRANSDERM DAILY patch 04/13/25 Ondansetron Odt [Zofran Odt] 4 mg PO Q8HR PRN #10 tab 04/13/25 Sodium Chloride 0.65% Nasal [Deep 2 spray NASAL QID PRN #5 ml 04/13/25 Sea (Saline)] Allergies Allergy/AdvReac Type Severity Reaction Status Date / Time adhesive tape Allergy Rash/Hives Verified 04/14/25 20:11 latex Allergy Rash/Hives Verified 04/14/25 20:11 amlodipine [From Norvasc] AdvReac Cough Verified 04/14/25 20:11 cinnamon AdvReac Nausea Verified 04/14/25 20:11 clonidine AdvReac "almost Verified 04/14/25 20:11 passed out" gabapentin AdvReac Dizziness Verified 04/14/25 20:11 Influenza Virus Vaccines AdvReac Nausea & Verified 04/14/25 20:11 Vomiting lisinopril AdvReac Cough Verified 04/14/25 20:11 magnesium oxide AdvReac Anaphylaxis Verified 04/14/25 20:11 morphine AdvReac Nausea & Verified 04/14/25 20:11 Vomiting sucralfate [From Carafate] AdvReac Abdominal Verified 04/14/25 20:11 Pain tomato AdvReac Diarrhea Verified 04/14/25 20:11 Review of Systems ROS Statement: Those systems with pertinent positive or pertinent negative responses have been documented in the HPI. ROS Other: All systems not noted in ROS Statement are negative. Past Medical History Past Medical History: Asthma, Coronary Artery Disease (CAD), COPD, CVA/TIA, Eye Disorder, Hypertension, Liver Disease, Myocardial Infarction (HI), Seizure Disorder, Vascular Disorder Additional Past Medical History / Comment(s): Pt recently admitted to [facility] for diarrhea, ETOH abuse. 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 Past Psychological History: Anxiety, Depression Smoking Status: Current every day smoker Past Alcohol Use History: Abuse, Daily, Heavy Past Drug Use History: Marijuana - Past Family History Mother Family Medical History: Cancer, Congestive Heart Failure (CHF), Coronary Artery Disease (CAD), Hyperlipidemia Additional Family Medical History / Comment(s): Mother at age 85 from lung cancer. Father Family Medical History: Cancer, COPD Additional Family Medical History / Comment(s): Father at age 63 from lung cancer. Brother(s) Additional Family Medical History / Comment(s): Patient has a total of 7 siblings. 5 are alive without any major medical problems she is aware of. 2 siblings have one from alcohol abuse and 1. Coronary artery disease. Daughter(s) Family Medical History: No Reported History Additional Family Medical History / Comment(s): Patient has one daughter with no major medical problems. General Exam Limitations: no limitations General appearance: alert, in no apparent distress Head exam: Present: atraumatic, normocephalic, normal inspection Eye exam: Present: normal appearance, PERRL, EOMI. Absent: scleral icterus, conjunctival injection, periorbital swelling ENT exam: Present: normal exam, mucous membranes moist Neck exam: Present: normal inspection. Absent: tenderness, meningismus, lymphadenopathy Respiratory exam: Present: normal lung sounds bilaterally, chest wall tenderness (Positive bilateral lower parasternal tenderness). Absent: respiratory distress, wheezes, rales, rhonchi, stridor, accessory muscle use, decreased breath sounds, prolonged expiratory Cardiovascular Exam: Present: regular rate, normal rhythm, normal heart sounds. Absent: systolic murmur, diastolic murmur, rubs, gallop, clicks GI/Abdominal exam: Present: soft, normal bowel sounds. Absent: distended, tenderness, guarding, rebound, rigid Extremities exam: Present: normal inspection, full ROM, normal capillary refill. Absent: tenderness, pedal edema, joint swelling, calf tenderness Back exam: Present: paraspinal tenderness (Positive bilateral paracervical spine muscle spasm and tenderness). Absent: vertebral tenderness Neurological exam: Present: alert, oriented X3, CN II-XII intact Psychiatric exam: Present: normal affect, normal mood Skin exam: Present: warm, dry, intact, normal color. Absent: rash Course Vital Signs 04/14/25 04/14/25 20:08 23:21 Temperature 97.7 F 97.8 F Pulse Rate 102 H 95 Respiratory 20 19 Rate Blood Pressure 130/81 115/77 O2 Sat by Pulse 98 97 Oximetry Medical Decision Making - Medical Decision Making Was pt. sent in by a medical professional or institution (, PA, REGISTERED MASSAGE THERAPIST, urgent care, hospital, or correction...) When possible be specific @ -No Did you speak to anyone other than the patient for history (EMS, parent, family, police, friend...)? What history was obtained from this source @ -No Did you review nursing and triage notes (agree or disagree)? Why? @ -I reviewed and agree with nursing and triage notes Were old charts reviewed (outside hosp., previous admission, EMS record, old EKG, old radiological studies, urgent care reports/EKG's, correction records)? Report findings @ -Doppler echocardiogram results from 04/14/2025 reviewed showing LVEF 50-55% with mild LVH, no regional wall motion abnormality moderate left atrial dilation mild mitral regurgitation with sclerotic aortic valve. Differential Diagnosis (chest pain, altered mental status, abdominal pain women, abdominal pain men, vaginal bleeding, weakness, fever, dyspnea, syncope, headache, dizziness, GI bleed, back pain, seizure, CVA, palpatations, mental health, musculoskeletal)? @ -Differential Chest Pain: Stable Angina, Unstable Angina, STEMI, NSTEMI Aortic Dissection, Pneumothorax, Musculoskeletal, Esophageal Spasm GERD, Cholecystitis, Pancreatitis, Zoster, this is not meant to be an all-inclusive list. EKG interpreted by me (3pts min.). @ -Sinus rhythm without ST deviation or T wave inversion. Ventricular rate 86 bpm, TUYET 146 ms, QRS 98 ms, prolonged QTc 480 ms. X-rays interpreted by me (1pt min.). @ -CXR shows no acute cardiopulmonary process CT interpreted by me (1pt min.). @ -None done U/S interpreted by me (1pt. min.). @ -None done What testing was considered but not performed or refused? (CT, X-rays, U/S, labs)? Why? @ -None What meds were considered but not given or refused? Why? @ -None Did you discuss the management of the patient with other professionals (professionals i.e. Dr., PA, REGISTERED MASSAGE THERAPIST, lab, RT, psych nurse, social science analyst, proposal specialist, teacher, donor relations officer, case filler)? Give summary @ -No Was smoking cessation discussed for >3mins.? @ -No Was critical care preformed (if so, how long)? @ -No Were there social determinants of health that impacted care today? How? (Homelessness, low income, unemployed, alcoholism, drug addiction, transportation, low edu. Level, literacy, decrease access to med. care, fdc, rehab)? @ -No Was there de-escalation of care discussed even if they declined (Discuss DNR or withdrawal of care, Hospice)? DNR status @ -No What co-morbidities impacted this encounter? (DM, HTN, Smoking, COPD, CAD, Cancer, CVA, ARF, Chemo, Hep., AIDS, mental health diagnosis, sleep apnea, morbid obesity)? @ -None Was patient admitted / discharged? Hospital course, mention meds given and route, prescriptions, significant lab abnormalities, going to OR and other pertinent info. @ -Lab work notable for hemoglobin 8.3 which is a drop from 10.8 on 04/12/2025. A nion gap 14 and AST 44. Troponin 0.015 which is WNL for patient. Due to ongoing chest pain for the past 4 days, repeat troponin deemed unnecessary. CXR shows no acute cardiopulmonary process. Right paracervical spine and bilateral parasternal tenderness indicates likely musculoskeletal etiology. Advised Tylenol every 4-6 hours as needed for pain along with RICE. Follow-up with PCP, cardiology and orthopedics for ongoing management of symptoms. Discussed patient with Dr. Robison. Undiagnosed new problem with uncertain prognosis? @ -No Drug Therapy requiring intensive monitoring for toxicity (Heparin, Nitro, Insulin, Cardizem)? @ -No Were any procedures done? @ -No Diagnosis/symptom? @ -Cervical neck strain, costochondritis, chest pain Acute, or Chronic, or Acute on Chronic? @ -Acute Uncomplicated (without systemic symptoms) or Complicated (systemic symptoms)? @ -Complicated Side effects of treatment? @ -No Exacerbation, Progression, or Severe Exacerbation? @ -No Poses a threat to life or bodily function? How? (Chest pain, USA, HI, pneumonia, PE, COPD, DKA, ARF, appy, cholecystitis, CVA, Diverticulitis, Homicidal, Suicidal, threat to staff... and all critical care pts) @ -No - Lab Data Result diagrams: 04/14/25 21:16 04/14/25 21:16 Lab Results 04/14/25 04/14/25 04/14/25 Range/Units 21:16 21:16 21:16 WBC 6.80 (4.50-10.00) 10*3/uL RBC 3.52 L (4.10-5.20) 10*6/uL Hgb 8.3 L D (12.0-15.0) g/dL Hct 27.8 L (37.2-46.3) % MCV 79.0 L (80.0-97.0) fL MCH 23.6 L (27.0-32.0) pg MCHC 29.9 L (32.0-37.0) g/dL Plt Count 147 (140-440) 10*3/uL MPV 10.4 (9.5-12.2) fL Immature Gran % (Auto) 0.4 % Neutrophils % 72.4 % Lymphocytes % 17.8 % Monocytes % 6.9 % Eosinophils % 1.2 % Basophils % 1.3 % Immature Gran # 0.03 (0.00-0.04) 10*3/uL Neutrophils # 4.92 (1.80-7.70) 10*3/uL Lymphocytes # 1.21 (0.90-5.00) 10*3/uL Monocytes # 0.47 (0.20-1.00) 10*3/uL Eosinophils # 0.08 (0.04-0.35) 10*3/uL Basophils # 0.09 (0.00-0.10) 10*3/uL PT 10.4 (10.0-12.5) sec INR 0.9 (<1.2) APTT 21.6 L (22.0-30.0) sec Sodium 137 (137-145) mmol/L Potassium 4.1 (3.5-5.1) mmol/L Chloride 103 (98-107) mmol/L Carbon Dioxide 20 L (22-30) mmol/L Anion Gap 14 mmol/L BUN 7 (7-17) mg/dL Creatinine 0.57 (0.52-1.04) mg/dL Est GFR (CKD-EPI)AfAm >90 (>60 ml/min/1.73 sqM) Est GFR (CKD-EPI)NonAf >90 (>60 ml/min/1.73 sqM) Glucose 96 (74-99) mg/dL Calcium 8.3 L (8.4-10.2) mg/dL Magnesium 1.8 (1.6-2.3) mg/dL Total Bilirubin 0.5 (0.2-1.3) mg/dL AST 44 H (14-36) U/L ALT 14 (4-34) U/L Alkaline Phosphatase 89 (38-126) U/L Troponin I (0.000-0.034) ng/mL Total Protein 6.6 (6.3-8.2) g/dL Albumin 3.7 (3.5-5.0) g/dL 04/14/25 Range/Units 21:16 WBC (4.50-10.00) 10*3/uL RBC (4.10-5.20) 10*6/uL Hgb (12.0-15.0) g/dL Hct (37.2-46.3) % MCV (80.0-97.0) fL MCH (27.0-32.0) pg MCHC (32.0-37.0) g/dL Plt Count (140-440) 10*3/uL MPV (9.5-12.2) fL Immature Gran % (Auto) % Neutrophils % % Lymphocytes % % Monocytes % % Eosinophils % % Basophils % % Immature Gran # (0.00-0.04) 10*3/uL Neutrophils # (1.80-7.70) 10*3/uL Lymphocytes # (0.90-5.00) 10*3/uL Monocytes # (0.20-1.00) 10*3/uL Eosinophils # (0.04-0.35) 10*3/uL Basophils # (0.00-0.10) 10*3/uL PT (10.0-12.5) sec INR (<1.2) APTT (22.0-30.0) sec Sodium (137-145) mmol/L Potassium (3.5-5.1) mmol/L Chloride (98-107) mmol/L Carbon Dioxide (22-30) mmol/L Anion Gap mmol/L BUN (7-17) mg/dL Creatinine (0.52-1.04) mg/dL Est GFR (CKD-EPI)AfAm (>60 ml/min/1.73 sqM) Est GFR (CKD-EPI)NonAf (>60 ml/min/1.73 sqM) Glucose (74-99) mg/dL Calcium (8.4-10.2) mg/dL Magnesium (1.6-2.3) mg/dL Total Bilirubin (0.2-1.3) mg/dL AST (14-36) U/L ALT (4-34) U/L Alkaline Phosphatase (38-126) U/L Troponin I 0.015 (0.000-0.034) ng/mL Total Protein (6.3-8.2) g/dL Albumin (3.5-5.0) g/dL Disposition Clinical Impression: Cervical spine pain, Costochondritis, Chest pain Disposition: HOME SELF-CARE Condition: Fair Instructions (If sedation given, give patient instructions): Chest Pain (ED), Costochondritis (ED), Acute Neck Pain (ED) Additional Instructions: Cool compress to affected areas on neck and chest for 10 minutes up to 4 times daily. Tylenol every 4-6 hours as needed for pain. Follow-up with PCP, orthopedics, cardiology for any ongoing or worsening symptoms. Is patient prescribed a controlled substance at d/c from ED?: No Referrals: Miya Johnson MD [Primary Care Provider] - 1-2 days Parish Kay MD [STAFF PHYSICIAN] - 1-2 days Ken Zacarias DO [Doctor of Osteopathic Medicine] - 1-2 days Time of Disposition: 22:51
[2025-04-14 21:40] LABS: Basophils # (A) 0.09 10*3/uL (0.00-0.10); Basophils % (A) 1.3 %; Eosinophils # (A) 0.08 10*3/uL (0.04-0.35); Eosinophils % (A) 1.2 %; HCT 27.8 % (37.2-46.3); Lymphocytes # (A) 1.21 10*3/uL (0.90-5.00); Lymphocytes % (A) 17.8 %; MCH 23.6 pg (27.0-32.0); MCHC 29.9 g/dL (32.0-37.0); Mean Platelet Volume 10.4 fL (9.5-12.2); Monocytes # (A) 0.47 10*3/uL (0.20-1.00); Monocytes % (A) 6.9 %; Neutrophils # (A) 4.92 10*3/uL (1.80-7.70); Neutrophils % (A) 72.4 %; Platelet Count 147 10*3/uL (140-440); RBC 3.52 10*6/uL (4.10-5.20); RDW 19.2 % (11.5-14.5)
[2025-04-14 21:41] LABS: ALT 14 U/L (4-34); AST 44 U/L (14-36); African American GFR (CKD) >90 (>60 ml/min/1.73 sqM); Albumin 3.7 g/dL (3.5-5.0); Alkaline Phosphatase 89 U/L (38-126); Anion Gap 14 mmol/L; Blood Urea Nitrogen 7 mg/dL (7-17); Calcium 8.3 mg/dL (8.4-10.2); Carbon Dioxide 20 mmol/L (22-30); Chloride 103 mmol/L (98-107); Glucose 96 mg/dL (74-99); HGB 8.3 g/dL (12.0-15.0); Magnesium 1.8 mg/dL (1.6-2.3); Non-African American GFR(CKD) >90 (>60 ml/min/1.73 sqM); Sodium 137 mmol/L (137-145); Total Bilirubin 0.5 mg/dL (0.2-1.3); Total Protein 6.6 g/dL (6.3-8.2)
[2025-04-14 21:43] LABS: INR 0.9 (<1.2); Partial Thromboplastin Time 21.6 sec (22.0-30.0); Prothrombin Time 10.4 sec (10.0-12.5)
[2025-04-14 22:16] LABS: Potassium 4.1 mmol/L (3.5-5.1)
--- NOTE | 2025-04-14 22:43 | XR ---
EXAMINATION TYPE: XR chest 2V DATE OF EXAM: 04/14/2025 9:39 PM COMPARISON: 04/12/2025 CLINICAL INDICATION: Female, 65 years old with history of Chest Pain, TECHNIQUE: XR chest 2V view(s) obtained. FINDINGS: The heart size is normal. The pulmonary vasculature is normal. The lungs are clear. IMPRESSION: 1. No acute pulmonary process. [facility], , 04/14/2025 10:41 PM
[2025-04-14 23:24] VITALS: BP 115/77; PULSE 95; RESP 19; TEMP 97.8
== END 2025-04-14 23:34 | disposition home or self-care (01) ==
LOC: EC 20:05
DX: S16.1XXA Strain of muscle, fascia and tendon at neck level, initial encounter (principal); M94.0 Chondrocostal junction syndrome [Tietze]; F17.200 Nicotine dependence, unspecified, uncomplicated; Z88.5 Allergy status to narcotic agent; Z88.7 Allergy status to serum and vaccine; Z88.8 Allergy status to other drugs, medicaments and biological substances; Z91.040 Latex allergy status; Z91.018 Allergy to other foods; Z91.09 Other allergy status, other than to drugs and biological substances; Z86.73 Personal history of transient ischemic attack (TIA), and cerebral infarction without residual deficits; X58.XXXA Exposure to other specified factors, initial encounter
CPT/HCPCS: 36415; 71046; 80053; 83735; 84484; 85025; 85610; 85730; 93005; 99285

== ENCOUNTER 2025-05-12 20:19 | Emergency (ER) | payer OTHER ==
[2025-05-12 20:29] VITALS: PULSE 79; RESP 18
--- NOTE | 2025-05-12 21:46 | ED ---
Psych HPI - General Source: EMS, RN notes reviewed Mode of arrival: EMS Limitations: no limitations <Tobias Resendiz - Last Filed: 05/12/25 21:44> - General Source: patient, RN notes reviewed <Peyton English - Last Filed: 05/13/25 19:20> - General Chief Complaint: Psychiatric Symptoms Stated Complaint: Petitioned Time Seen by Provider: 05/12/25 20:31 - History of Present Illness Initial Comments: Quick note: This is a 65-year-old female with history including CAD, CVA, AMI, COPD and seizure disorder presenting for suicidal ideation x 1 day. Patient notes increased life stressors after receiving a shot of notice and calls from the collectors. Patient states she subsequently "went ballistic". Patient states she drinks during times of stress, stating she has had 3 shots of liquor and 2 beers today. Denies current use of psychiatric medications and does not speak to a counselor. Denies HI, visual/auditory hallucinations. Patient also mentions dizziness/lightheadedness x 3 days with position change and cough with mucus/phlegm production. Patient states that she is a smoker. Denies fever, chills, chest pain, dyspnea, hemoptysis, abdominal pain, N/V/D. (Martín,Tobias) 65-year-old female presenting to the ER for suicidal ideation x 1 day. States she has been experiencing increased life stressors. States she then drank 3 shots of liquor and 2 beers due to her emotional state. Denies plan or homicidal ideations. (Peyton English) - Related Data Home Medications Medication Instructions Recorded Confirmed Budesonide/Formoterol Fumarate 2 puff INHALATION RT-BID 07/29/23 04/12/25 [Symbicort 160-4.5 Mcg Inhaler] Albuterol Sulfate [Ventolin HFA] 2 puff INHALATION RT-Q6H PRN 09/10/24 04/12/25 Albuterol Nebulized [Ventolin 2.5 mg INHALATION RT-Q6H PRN 01/08/25 04/12/25 Nebulized] Brimonidine Tartrate [Alphagan P 1 drop BOTH EYES BID 01/30/25 04/12/25 0.2% Ophth Soln] Ticagrelor [Brilinta] 90 mg PO BID 01/30/25 04/12/25 Previous Rx's Medication Instructions Recorded Aspirin EC [Ecotrin Low Dose] 81 mg PO HS #90 tab 05/25/24 Isosorbide Mononitrate ER [Imdur] 30 mg PO HS #90 tab 05/25/24 Metoprolol Succinate (ER) [Toprol 50 mg PO HS #90 tab 05/25/24 XL] Losartan [Cozaar] 50 mg PO DAILY #30 tab 02/02/25 hydrALAZINE HCL [Apresoline] 50 mg PO TID #90 tab 02/02/25 Benzocaine/Menthol Lozeng [Cepacol 1 each MUCOUS MEM Q4HR PRN lozenge 04/13/25 lozenge] Nicotine 14Mg/24Hr Patch [Habitrol] 1 patch TRANSDERM DAILY patch 04/13/25 Ondansetron Odt [Zofran Odt] 4 mg PO Q8HR PRN #10 tab 04/13/25 Sodium Chloride 0.65% Nasal [Deep 2 spray NASAL QID PRN #5 ml 04/13/25 Sea (Saline)] Allergies Allergy/AdvReac Type Severity Reaction Status Date / Time adhesive tape Allergy Rash/Hives Verified 05/12/25 20:28 latex Allergy Rash/Hives Verified 05/12/25 20:28 amlodipine [From Norvasc] AdvReac Cough Verified 05/12/25 20:28 cinnamon AdvReac Nausea Verified 05/12/25 20:28 clonidine AdvReac "almost Verified 05/12/25 20:28 passed out" gabapentin AdvReac Dizziness Verified 05/12/25 20:28 Influenza Virus Vaccines AdvReac Nausea & Verified 05/12/25 20:28 Vomiting lisinopril AdvReac Cough Verified 05/12/25 20:28 magnesium oxide AdvReac Anaphylaxis Verified 05/12/25 20:28 morphine AdvReac Nausea & Verified 05/12/25 20:28 Vomiting sucralfate [From Carafate] AdvReac Abdominal Verified 05/12/25 20:28 Pain tomato AdvReac Diarrhea Verified 05/12/25 20:28 Review of Systems ROS Other: All systems not noted in ROS Statement are negative. <Tobias Resendiz - Last Filed: 05/12/25 21:44> ROS Other: All systems not noted in ROS Statement are negative. <Peyton English - Last Filed: 05/13/25 19:20> ROS Statement: Those systems with pertinent positive or pertinent negative responses have been documented in the HPI. Past Medical History Past Medical History: Asthma, Coronary Artery Disease (CAD), COPD, CVA/TIA, Eye Disorder, Hypertension, Liver Disease, Myocardial Infarction ([place]), Seizure Disorder, Vascular Disorder Additional Past Medical History / Comment(s): Pt recently admitted to [facility] for diarrhea, ETOH abuse. 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 Past Psychological History: Anxiety, Depression Smoking Status: Current every day smoker Past Alcohol Use History: Abuse, Daily, Heavy Past Drug Use History: Marijuana - Past Family History Mother Family Medical History: Cancer, Congestive Heart Failure (CHF), Coronary Artery Disease (CAD), Hyperlipidemia Additional Family Medical History / Comment(s): Mother at age 85 from lung cancer. Father Family Medical History: Cancer, COPD Additional Family Medical History / Comment(s): Father at age 63 from lung cancer. Brother(s) Additional Family Medical History / Comment(s): Patient has a total of 7 siblings. 5 are alive without any major medical problems she is aware of. 2 siblings have one from alcohol abuse and 1. Coronary artery disease. Daughter(s) Family Medical History: No Reported History Additional Family Medical History / Comment(s): Patient has one daughter with no major medical problems. <Tobias Resendiz - Last Filed: 05/12/25 21:44> General Exam Limitations: no limitations <Tobias Resendiz - Last Filed: 05/12/25 21:44> General appearance: alert, in no apparent distress Head exam: Present: atraumatic, normocephalic, normal inspection Eye exam: Present: normal appearance, PERRL, EOMI. Absent: scleral icterus, conjunctival injection, periorbital swelling ENT exam: Present: normal exam, mucous membranes moist Respiratory exam: Present: normal lung sounds bilaterally. Absent: respiratory distress, wheezes, rales, rhonchi, stridor Cardiovascular Exam: Present: regular rate, normal rhythm, normal heart sounds. Absent: systolic murmur, diastolic murmur, rubs, gallop, clicks Neurological exam: Present: alert, oriented X3, CN II-XII intact Psychiatric exam: Present: normal affect, normal mood Skin exam: Present: warm, dry, intact, normal color. Absent: rash <Peyton English - Last Filed: 05/13/25 19:20> - General Exam Comments Initial Comments: Visual Physical Exam Vital signs reviewed General: Well-appearing, nontoxic, no acute distress. Head: Normocephalic, atraumatic Eyes: PERRLA, EOMI ENT: Airway patent Chest: Nonlabored breathing Skin: No visual rash, normal skin tone Neuro: Alert and oriented 3 Musculoskeletal: No gross abnormalities (Tobias Resendiz) Course Vital Signs 05/12/25 05/12/25 05/13/25 20:25 23:03 02:05 Temperature 97.8 F 97.7 F Pulse Rate 79 79 Respiratory 18 18 Rate Blood Pressure 104/66 116/80 Blood Pressure 105/71 [Right Arm Sitting] Blood Pressure 104/76 [Right Arm Standing] Blood Pressure 107/74 [Right Arm Supine] O2 Sat by Pulse 97 99 Oximetry Medical Decision Making <Tobias Resendiz - Last Filed: 05/12/25 21:44> - EKG Data -: EKG Interpreted by Me <Peyton English - Last Filed: 05/13/25 19:20> - Medical Decision Making I completed the quick note portion of this chart signed BRISEIDA Maxwell (Tobias Resendiz) Was pt. sent in by a medical professional or institution (YESSY Lloyd, GAS PLANT OPERATOR, urgent care, hospital, or residential...) When possible be specific @ -No Did you speak to anyone other than the patient for history (EMS, parent, family, police, friend...)? What history was obtained from this source @ -No Did you review nursing and triage notes (agree or disagree)? Why? @ -I reviewed and agree with nursing and triage notes Were old charts reviewed (outside hosp., previous admission, EMS record, old EKG, old radiological studies, urgent care reports/EKG's, residential records)? Report findings @ -No old charts were reviewed Differential Diagnosis (chest pain, altered mental status, abdominal pain women, abdominal pain men, vaginal bleeding, weakness, fever, dyspnea, syncope, headache, dizziness, GI bleed, back pain, seizure, CVA, palpatations, mental health, musculoskeletal)? @ -Differential Mental Health Depression, anxiety, bipolar, psychosis, schizophrenia, borderline personality, situational depression, adjustment disorder, behavioral disorder, brain tumor, malingering, substance abuse, encephalopathy, medication reaction, dementia, hypothyroidism, degenerative neurologic disorder, lupus.... This is not meant to be all-inclusive list EKG interpreted by me (3pts min.). @ -None X-rays interpreted by me (1pt min.). @ -X-ray reveals no acute process CT interpreted by me (1pt min.). @ -None done U/S interpreted by me (1pt. min.). @ -None done What testing was considered but not performed or refused? (CT, X-rays, U/S, l abs)? Why? @ -None What meds were considered but not given or refused? Why? @ -None Did you discuss the management of the patient with other professionals (professionals i.e. , PA, GAS PLANT OPERATOR, lab, RT, psych nurse, social service manager, tax lawyer, teacher, conservation officer, case finishing machine adjuster)? Give summary @ - I spoke with EPS who determines that patient does not meet inpatient criteria for psychiatric admission at this time Was smoking cessation discussed for >3mins.? @ -No Was critical care preformed (if so, how long)? @ -No Were there social determinants of health that impacted care today? How? (Homelessness, low income, unemployed, alcoholism, drug addiction, transportation, low edu. Level, literacy, decrease access to med. care, assisted, rehab)? @ -No Was there de-escalation of care discussed even if they declined (Discuss DNR or withdrawal of care, Hospice)? DNR status @ -No What co-morbidities impacted this encounter? (DM, HTN, Smoking, COPD, CAD, Cancer, CVA, ARF, Chemo, Hep., AIDS, mental health diagnosis, sleep apnea, morbid obesity)? @ -None Was patient admitted / discharged? Hospital course, mention meds given and route, prescriptions, significant lab abnormalities, going to OR and other pertinent info. @ -Discharge. 65-year-old female presenting for suicidal ideation x 1 day. Denies plan. Denies any other medical complaints at the time of my initial evaluation. Patient's bed was elevated and cleared for EPS at time of clinical sobriety. Patient was evaluated by EPS who determined that patient does not meet inpatient criteria for psychiatric admission at this time. Safety plan was discussed. Patient is agreeable to this plan and feels comfortable with discharge. Appropriate return precautions and follow-up care discussed. Case was discussed with my ED attending Dr. Conteh. Undiagnosed new problem with uncertain prognosis? @ -No Drug Therapy requiring intensive monitoring for toxicity (Heparin, Nitro, Insulin, Cardizem)? @ -No Were any procedures done? @ -No Diagnosis/symptom? @ -Suicidal ideation Acute, or Chronic, or Acute on Chronic? @ -Acute Uncomplicated (without systemic symptoms) or Complicated (systemic symptoms)? @ -Uncomplicated Side effects of treatment? @ -No Exacerbation, Progression, or Severe Exacerbation? @ -No Poses a threat to life or bodily function? How? (Chest pain, USA, LA, pneumonia, PE, COPD, DKA, ARF, appy, cholecystitis, CVA, Diverticulitis, Homicidal, Suicidal, threat to staff... and all critical care pts) @ -Unlikely at this time (Peyton English) - Lab Data Lab Results 05/13/25 Range/Units 01:22 Urine Opiates Screen Not Detected (NotDetected) Ur Oxycodone Screen Not Detected (NotDetected) Urine Methadone Screen Not Detected (NotDetected) Ur Barbiturates Screen Not Detected (NotDetected) U Tricyclic Antidepress Not Detected (NotDetected) Ur Phencyclidine Scrn Not Detected (NotDetected) Ur Amphetamines Screen Not Detected (NotDetected) U Methamphetamines Scrn Not Detected (NotDetected) U Benzodiazepines Scrn Not Detected (NotDetected) Urine Cocaine Screen Not Detected (NotDetected) U Marijuana (THC) Screen Not Detected (NotDetected) - EKG Data EKG Comments: EKG reveals normal sinus rhythm with inverted diffuse inverted T waves unchanged from previous, ventricular rate 73 bpm, SD interval 148, QRS duration 94, QT/QTc 428/454 (Peyton English) Disposition <Tobias Resendiz - Last Filed: 05/12/25 21:44> Is patient prescribed a controlled substance at d/c from ED?: No Time of Disposition: 02:15 <Peyton English - Last Filed: 05/13/25 19:20> Clinical Impression: Suicidal ideation Disposition: HOME SELF-CARE Condition: Stable Additional Instructions: Please return to the Emergency Department if symptoms worsen or any other concerns. Referrals: Victor Hugo Cantor MD [Primary Care Provider] - 1-2 days
--- NOTE | 2025-05-13 00:20 | XR ---
EXAM: XR Chest, 1 View CLINICAL HISTORY: ITS.REASON XR Reason: Cough TECHNIQUE: Frontal view of the chest. COMPARISON: No relevant prior studies available. FINDINGS: Lungs: Unremarkable. No consolidation. Pleural space: Unremarkable. No pneumothorax. Heart: Cardiomegaly. Mediastinum: Unremarkable. Bones/joints: Unremarkable. IMPRESSION: No consolidation.
[2025-05-13 02:15] VITALS: BP 116/80; TEMP 97.7
[2025-05-13 03:03] LABS: Barbiturate Screen,Urine Not Detected (NotDetected); Benzodiazepines Screen,Urine Not Detected (NotDetected); Opiate Screen,Urine Not Detected (NotDetected); Oxycodone Screen, Urine Not Detected (NotDetected); Phencyclidine Screen,Urine Not Detected (NotDetected); Tricyclic Antidepressant,Urine Not Detected (NotDetected); Urn Cannabinoid Scrn Not Detected (NotDetected)
== END 2025-05-13 02:10 | disposition home or self-care (01) ==
LOC: EC 20:19
DX: R45.851 Suicidal ideations (principal); F17.200 Nicotine dependence, unspecified, uncomplicated; Z91.040 Latex allergy status; Z88.7 Allergy status to serum and vaccine; Z88.8 Allergy status to other drugs, medicaments and biological substances; Z88.5 Allergy status to narcotic agent; Z91.048 Other nonmedicinal substance allergy status
CPT/HCPCS: 71045; 80306; 82075; 93005; 99285

== ENCOUNTER 2025-05-17 04:38 | Emergency (ER) | payer OTHER ==
[2025-05-17 04:46] VITALS: RESP 18; TEMP 98.3
--- NOTE | 2025-05-17 06:57 | ED ---
Recheck HPI - General Chief Complaint: Recheck/Abnormal Lab/Rx Stated Complaint: ETOH, arm pain Time Seen by Provider: 05/17/25 06:03 Source: patient, EMS, RN notes reviewed Mode of arrival: EMS Limitations: no limitations - History of Present Illness Initial Comments: This is a 65-year-old female who presents to the emergency department for right arm numbness. Patient is well-known to this emergency department for recurrent visits related to alcoholism and other various complaints. She is currently intoxicated. States that around 5 AM she noticed some numbness to her right arm that has since resolved. Reports a history of prior strokes and wants to make sure she is not having another one. States that she is no longer on her blood thinners. Denies any chest pain or shortness of breath. - Related Data Home Medications Medication Instructions Recorded Confirmed Budesonide/Formoterol Fumarate 2 puff INHALATION RT-BID 07/29/23 04/12/25 [Symbicort 160-4.5 Mcg Inhaler] Albuterol Sulfate [Ventolin HFA] 2 puff INHALATION RT-Q6H PRN 09/10/24 04/12/25 Albuterol Nebulized [Ventolin 2.5 mg INHALATION RT-Q6H PRN 01/08/25 04/12/25 Nebulized] Brimonidine Tartrate [Alphagan P 1 drop BOTH EYES BID 01/30/25 04/12/25 0.2% Ophth Soln] Ticagrelor [Brilinta] 90 mg PO BID 01/30/25 04/12/25 Previous Rx's Medication Instructions Recorded Aspirin EC [Ecotrin Low Dose] 81 mg PO HS #90 tab 05/25/24 Isosorbide Mononitrate ER [Imdur] 30 mg PO HS #90 tab 05/25/24 Metoprolol Succinate (ER) [Toprol 50 mg PO HS #90 tab 05/25/24 XL] Losartan [Cozaar] 50 mg PO DAILY #30 tab 02/02/25 hydrALAZINE HCL [Apresoline] 50 mg PO TID #90 tab 02/02/25 Benzocaine/Menthol Lozeng [Cepacol 1 each MUCOUS MEM Q4HR PRN lozenge 04/13/25 lozenge] Nicotine 14Mg/24Hr Patch [Habitrol] 1 patch TRANSDERM DAILY patch 04/13/25 Ondansetron Odt [Zofran Odt] 4 mg PO Q8HR PRN #10 tab 04/13/25 Sodium Chloride 0.65% Nasal [Deep 2 spray NASAL QID PRN #5 ml 04/13/25 Sea (Saline)] Allergies Allergy/AdvReac Type Severity Reaction Status Date / Time adhesive tape Allergy Rash/Hives Verified 05/12/25 20:28 latex Allergy Rash/Hives Verified 05/12/25 20:28 amlodipine [From Norvasc] AdvReac Cough Verified 05/12/25 20:28 cinnamon AdvReac Nausea Verified 05/12/25 20:28 clonidine AdvReac "almost Verified 05/12/25 20:28 passed out" gabapentin AdvReac Dizziness Verified 05/12/25 20:28 Influenza Virus Vaccines AdvReac Nausea & Verified 05/12/25 20:28 Vomiting lisinopril AdvReac Cough Verified 05/12/25 20:28 magnesium oxide AdvReac Anaphylaxis Verified 05/12/25 20:28 morphine AdvReac Nausea & Verified 05/12/25 20:28 Vomiting sucralfate [From Carafate] AdvReac Abdominal Verified 05/12/25 20:28 Pain tomato AdvReac Diarrhea Verified 05/12/25 20:28 Review of Systems ROS Statement: Those systems with pertinent positive or pertinent negative responses have been documented in the HPI. ROS Other: All systems not noted in ROS Statement are negative. Past Medical History Past Medical History: Asthma, Coronary Artery Disease (CAD), COPD, CVA/TIA, Eye Disorder, Hypertension, Liver Disease, Myocardial Infarction ([place]), Seizure Disorder, Vascular Disorder Additional Past Medical History / Comment(s): Pt recently admitted to [facility] for diarrhea, ETOH abuse. 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/speech issues, ETOH abuse/withdrawals/seizures/alcoholic cirrhosis/ascities with paracentesis, balance problems, FALLS, anemia, gastritis, IBS, chronic back pain, DDD, L1/L4 vertebral fractures from falls, bilateral leg and R arm nerve damage, pt had L carotid stenting, dysphagia @times, cataract surg, ulcer Last Myocardial Infarction Date:: aug 2018 History of Any Multi-Drug Resistant Organisms: None Reported Past Surgical History: Cholecystectomy, Heart Catheterization, Orthopedic Surgery Additional Past Surgical History / Comment(s): L caratid stent, bilateral knee surgeries for tendon repair, bartholian cyst removed bilateral wrists, cataracts Past Anesthesia/Blood Transfusion Reactions: Motion Sickness Additional Past Anesthesia/Blood Transfusion Reaction / Comment(s): Pt has re ceived blood without reaction. Past Psychological History: Anxiety, Depression Smoking Status: Current every day smoker Past Alcohol Use History: Abuse, Daily, Heavy Past Drug Use History: Marijuana - Past Family History Mother Family Medical History: Cancer, Congestive Heart Failure (CHF), Coronary Artery Disease (CAD), Hyperlipidemia Additional Family Medical History / Comment(s): Mother at age 85 from lung cancer. Father Family Medical History: Cancer, COPD Additional Family Medical History / Comment(s): Father at age 63 from lung cancer. Brother(s) Additional Family Medical History / Comment(s): Patient has a total of 7 siblings. 5 are alive without any major medical problems she is aware of. 2 siblings have one from alcohol abuse and 1. Coronary artery disease. Daughter(s) Family Medical History: No Reported History Additional Family Medical History / Comment(s): Patient has one daughter with no major medical problems. General Exam Limitations: no limitations General appearance: alert, in no apparent distress Head exam: Present: atraumatic, normocephalic, normal inspection Respiratory exam: Present: normal lung sounds bilaterally. Absent: respiratory distress, wheezes, rales, rhonchi, stridor Cardiovascular Exam: Present: regular rate, normal rhythm Neurological exam: Present: alert, oriented X3, CN II-XII intact Psychiatric exam: Present: normal affect, normal mood Skin exam: Present: warm, dry, intact, normal color. Absent: rash Course Vital Signs 05/17/25 05/17/25 04:42 07:35 Temperature 98.3 F Pulse Rate 100 93 Respiratory 18 18 Rate Blood Pressure 117/81 122/87 O2 Sat by Pulse 95 97 Oximetry Medical Decision Making - Medical Decision Making This is a 65-year-old female who presents to the emergency department for right arm numbness. Was pt. sent in by a medical professional or institution? @ -No Did you speak to anyone other than the patient for history? @ -No Did you review nursing and triage notes? @ -Yes, and I agree, it is accurate with regards to the patient's symptoms. Were old charts reviewed? @ -No Differential Diagnosis? @ -Nerve compression, alcoholism, CVA/TIA, arthritis, neuropathy, this is not meant to be an all-inclusive list. EKG interpreted by me (3pts min.)? @ -Not obtained X-rays interpreted by me (1pt min.)? @ -Not obtained CT interpreted by me (1pt min.)? @ -CT scan of the brain obtained. My interpretation identifies no acute intracranial hemorrhage. U/S interpreted by me (1pt. min.)? @ -Not What testing was considered but not performed? (CT, X-rays, U/S, labs)? Why? @ -None What meds were considered but not given? Why? @ -None Did you discuss the management of the patient with other professionals? @ -No Did you reconcile home meds? @ -No Was smoking cessation discussed for >3mins.? @ -No Was critical care preformed (if so, how long)? @ -No Were there social determinants of health that impacted care today? How? (Homelessness, low income, unemployed, alcoholism, drug addiction, transportation, low edu. Level, literacy, decrease access to med. care, prison, rehab)? @ -Alcoholism, limiting patient's cooperation and ability to obtain information. Was there de-escalation of care discussed even if they declined? (Discuss DNR or withdrawal of care, Hospice)? @ -No What co-morbidities impacted this encounter? (DM, HTN, Smoking, COPD, CAD, Cancer, CVA, Hep., AIDS, mental health diagnosis, sleep apnea, morbid obesity)? @ -Alcoholism, history of CVA Was patient admitted / discharged? @ -Discharged. Patient was intoxicated on exam, which is typical when she is in the emergency department. She was not cooperating for the NIH scale. H owever, what could be determined was unremarkable. She also advised that symptoms had already resolved on their own. CT scan of the brain was obtained revealing no acute findings. Patient discharged home in stable condition. Case discussed with ED attending Dr. Cottrell. Return precautions reviewed in depth, the patient is instructed to return to the emergency department with any new, worsening, or concerning symptoms. Patient verbalized understanding. Undiagnosed new problem with uncertain prognosis? @ -None Drug Therapy requiring intensive monitoring for toxicity (Heparin, Nitro, Insulin, Cardizem)? @ -None Were any procedures done? @ -None Diagnosis/symptom? @ -Right arm paresthesias, alcohol intoxication Acute, or Chronic, or Acute on Chronic? @ -Acute Uncomplicated (without systemic symptoms) or Complicated (systemic symptoms)? @ -Uncomplicated Side effects of treatment? @ -None Exacerbation, Progression, or Severe Exacerbation] @ -Not applicable Poses a threat to life or bodily function? @ -No - Radiology Data Radiology results: report reviewed, image reviewed Disposition Clinical Impression: Arm paresthesia, right, Alcohol intoxication Disposition: HOME SELF-CARE Instructions (If sedation given, give patient instructions): Paresthesia (ED) Additional Instructions: Return to the emergency department with any new, worsening, or concerning symptoms. Follow up with your primary care provider in 1-2 days. Is patient prescribed a controlled substance at d/c from ED?: No Referrals: Victor Hugo Cantor MD [Primary Care Provider] - 1-2 days Time of Disposition: 07:54
[2025-05-17] MEDS: ACETAMINOPHEN TAB 500 MG TAB PO STA (07:30)
[2025-05-17] MEDS: KETOROLAC 15 MG/ML 1 ML VIAL IM STA (07:33)
[2025-05-17 07:35] VITALS: BP 122/87; PULSE 93
--- NOTE | 2025-05-17 07:38 | CT ---
EXAMINATION TYPE: CT brain wo con DATE OF EXAM: 05/17/2025 7:27 AM COMPARISON: 01/30/2025.. CLINICAL INDICATION: Female, 65 years old with history of Right arm numbness, Right arm numbness TECHNIQUE: Brain: Axial CT images of the brain were obtained with coronal and sagittal reformats created and rev iewed. Contrast used: None. Oral contrast used: None. CT DLP: 1168.4 mGycm, Automated exposure control for dose reduction was used. FINDINGS: Brain: Extra-axial spaces: No abnormal extra-axial fluid collections. Ventricular system: Stable prominence without hydronephrosis. Stable hyperdense colloid cyst measurin g 1.2 cm within the roof of the third ventricle. Cerebral parenchyma: Cerebral atrophy. No acute intraparenchymal hemorrhage or mass effect. The diamond -white junction is well differentiated. Scattered hypoattenuating areas are seen within the periventr icular white matter. Encephalomalacia within the left parietal lobe and left frontal lobe from remot e injury. Cerebellum: Unremarkable. Mass effect: No evidence of midline shift. Intracranial vasculature: Atherosclerotic calcifications of the intracranial vessels. Soft tissues: Normal. Calvarium/osseous structures: No depressed skull fracture. Paranasal sinuses and mastoid air cells: Mastoid air cells are clear. Mild mucosal thickening of the left ethmoid sinus with subcentimeter left maxillary sinus mucous retention cyst. Remaining paranasal sinuses are clear. Visualized orbits: Bilateral aphakia IMPRESSION: 1. No acute intracranial process. 2. Nonspecific white matter changes, likely secondary to chronic small vessel ischemic disease. 3. Similar remote infarcts within the left frontal and parietal lobes. 4. Stable colloid cyst in the third ventricle. No hydrocephalus. Neurosurgical consultation is recomm ended if not previously performed. [facility], , 05/17/2025 7:36 AM
== END 2025-05-17 08:33 | disposition home or self-care (01) ==
LOC: EC 04:38
DX: F10.129 Alcohol abuse with intoxication, unspecified (principal); R20.2 Paresthesia of skin; I25.10 Atherosclerotic heart disease of native coronary artery without angina pectoris; F17.200 Nicotine dependence, unspecified, uncomplicated; Z91.040 Latex allergy status; Z91.018 Allergy to other foods; Z91.048 Other nonmedicinal substance allergy status; Z88.5 Allergy status to narcotic agent; Z88.8 Allergy status to other drugs, medicaments and biological substances; Z88.7 Allergy status to serum and vaccine
CPT/HCPCS: 70450; 96372; 99284

== ENCOUNTER 2025-05-29 18:28 | Emergency (ER) | payer OTHER ==
--- NOTE | 2025-05-29 18:36 | ED ---
General Adult HPI - General Source: patient, RN notes reviewed, old records reviewed <John Olivera - Last Filed: 05/29/25 20:48> <Lesia Salas - Last Filed: 05/30/25 06:22> <Burak Robison - Last Filed: 05/30/25 12:39> - General Stated complaint: Weakness Time Seen by Provider: 05/29/25 18:30 - History of Present Illness Initial comments: This is a 65-year-old female who presents to the emergency department stating that last night started having nausea vomiting diarrhea. It continued throughout the day. Patient states she feels weak because of it and a little bit dizzy. Patient denies any chest pain difficulty breathing or shortness of breath. Patient states she has a little abdominal cramping but no actual abdominal pain. Patient also made comments about wanting to kill herself if she has to continue to live like this but currently she does not know if she is suic idal. (John Olivera) - Related Data Home Medications Medication Instructions Recorded Confirmed Budesonide/Formoterol Fumarate 2 puff INHALATION RT-BID 07/29/23 04/12/25 [Symbicort 160-4.5 Mcg Inhaler] Albuterol Sulfate [Ventolin HFA] 2 puff INHALATION RT-Q6H PRN 09/10/24 04/12/25 Albuterol Nebulized [Ventolin 2.5 mg INHALATION RT-Q6H PRN 01/08/25 04/12/25 Nebulized] Brimonidine Tartrate [Alphagan P 1 drop BOTH EYES BID 01/30/25 04/12/25 0.2% Ophth Soln] Ticagrelor [Brilinta] 90 mg PO BID 01/30/25 04/12/25 Previous Rx's Medication Instructions Recorded Aspirin EC [Ecotrin Low Dose] 81 mg PO HS #90 tab 05/25/24 Isosorbide Mononitrate ER [Imdur] 30 mg PO HS #90 tab 05/25/24 Metoprolol Succinate (ER) [Toprol 50 mg PO HS #90 tab 05/25/24 XL] Losartan [Cozaar] 50 mg PO DAILY #30 tab 02/02/25 hydrALAZINE HCL [Apresoline] 50 mg PO TID #90 tab 02/02/25 Benzocaine/Menthol Lozeng [Cepacol 1 each MUCOUS MEM Q4HR PRN lozenge 04/13/25 lozenge] Nicotine 14Mg/24Hr Patch [Habitrol] 1 patch TRANSDERM DAILY patch 04/13/25 Ondansetron Odt [Zofran Odt] 4 mg PO Q8HR PRN #10 tab 04/13/25 Sodium Chloride 0.65% Nasal [Deep 2 spray NASAL QID PRN #5 ml 04/13/25 Sea (Saline)] Allergies Allergy/AdvReac Type Severity Reaction Status Date / Time adhesive tape Allergy Rash/Hives Verified 05/12/25 20:28 latex Allergy Rash/Hives Verified 05/12/25 20:28 amlodipine [From Norvasc] AdvReac Cough Verified 05/12/25 20:28 cinnamon AdvReac Nausea Verified 05/12/25 20:28 clonidine AdvReac "almost Verified 05/12/25 20:28 passed out" gabapentin AdvReac Dizziness Verified 05/12/25 20:28 Influenza Virus Vaccines AdvReac Nausea & Verified 05/12/25 20:28 Vomiting lisinopril AdvReac Cough Verified 05/12/25 20:28 magnesium oxide AdvReac Anaphylaxis Verified 05/12/25 20:28 morphine AdvReac Nausea & Verified 05/12/25 20:28 Vomiting sucralfate [From Carafate] AdvReac Abdominal Verified 05/12/25 20:28 Pain tomato AdvReac Diarrhea Verified 05/12/25 20:28 Review of Systems ROS Other: All systems not noted in ROS Statement are negative. <John Olivera - Last Filed: 05/29/25 20:48> ROS Other: All systems not noted in ROS Statement are negative. <Lesia Salas - Last Filed: 05/30/25 06:22> ROS Other: All systems not noted in ROS Statement are negative. <Burak Robison - Last Filed: 05/30/25 12:39> ROS Statement: Those systems with pertinent positive or pertinent negative responses have been documented in the HPI. Past Medical History Past Medical History: Asthma, Coronary Artery Disease (CAD), COPD, CVA/TIA, Eye Disorder, Hypertension, Liver Disease, Myocardial Infarction (PR), Seizure Disorder, Vascular Disorder Additional Past Medical History / Comment(s): Pt recently admitted to [facility] for diarrhea, ETOH abuse. 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 Past Psychological History: Anxiety, Depression Smoking Status: Current every day smoker Past Alcohol Use History: Abuse, Daily, Heavy Past Drug Use History: Marijuana - Past Family History Mother Family Medical History: Cancer, Congestive Heart Failure (CHF), Coronary Artery Disease (CAD), Hyperlipidemia Additional Family Medical History / Comment(s): Mother at age 85 from lung cancer. Father Family Medical History: Cancer, COPD Additional Family Medical History / Comment(s): Father at age 63 from lung cancer. Brother(s) Additional Family Medical History / Comment(s): Patient has a total of 7 siblings. 5 are alive without any major medical problems she is aware of. 2 siblings have one from alcohol abuse and 1. Coronary artery disease. Daughter(s) Family Medical History: No Reported History Additional Family Medical History / Comment(s): Patient has one daughter with no major medical problems. <John Olivera - Last Filed: 05/29/25 20:48> General Exam <John Olivera - Last Filed: 05/29/25 20:48> - General Exam Comments Initial Comments: GENERAL: Patient is well-developed and well-nourished. Patient is nontoxic and well- hydrated and is in no acute distress. ENT: Neck is soft and supple. No significant lymphadenopathy is noted. Oropharynx is clear. Moist mucous membranes. Neck has full range of motion without eliciting any pain. EYES: The sclera were anicteric and conjunctiva were pink and moist. Extraocular movements were intact and pupils were equal round and reactive to light. Eyelids were unremarkable. PULMONARY: Unlabored respirations. Good breath sounds bilaterally. No audible rales rhonchi or wheezing was noted. CARDIOVASCULAR: There is a regular rate and rhythm without any murmurs gallops or rubs. ABDOMEN: Soft and nontender with normal bowel sounds. SKIN: Skin is clear with no lesions or rashes and otherwise unremarkable. NEUROLOGIC: Patient is alert and oriented x3. Cranial nerves II through XII are grossly intact. Motor and sensory are also intact. Normal speech, volume and content. Symmetrical smile. MUSCULOSKELETAL: Normal extremities with adequate strength and full range of motion. No lower extremity swelling or edema. No calf tenderness. LYMPHATICS: No significant lymphadenopathy is noted PSYCHIATRIC: Normal psychiatric evaluation. (John Olivera) Course Vital Signs 05/29/25 05/29/25 05/29/25 18:40 20:00 20:42 Temperature 98.3 F Pulse Rate 98 94 94 Respiratory 18 18 18 Rate Blood Pressure 192/107 197/107 154/104 O2 Sat by Pulse 98 97 97 Oximetry 05/29/25 05/29/25 05/30/25 22:00 23:00 00:00 Temperature Pulse Rate 90 88 98 Respiratory 18 20 118 H Rate Blood Pressure 88/54 148/76 153/92 O2 Sat by Pulse 98 98 97 Oximetry 05/30/25 07:55 Temperature 97.8 F Pulse Rate 82 Respiratory 16 Rate Blood Pressure 130/84 O2 Sat by Pulse 94 L Oximetry Medical Decision Making - Lab Data Result diagrams: 05/29/25 16:50 05/29/25 20:20 <John Olivera - Last Filed: 05/29/25 20:48> - Lab Data Result diagrams: 05/29/25 16:50 05/29/25 20:20 <Lesia Salas - Last Filed: 05/30/25 06:22> - Lab Data Result diagrams: 05/29/25 16:50 05/29/25 20:20 <Burak Robison - Last Filed: 05/30/25 12:39> - Medical Decision Making Was pt. sent in by a medical professional or institution (, PA, ASSISTANT TO THE DIRECTOR, urgent care, hospital, or usp...) When possible be specific @ -[No] Did you speak to anyone other than the patient for history (EMS, parent, family, police, friend...)? What history was obtained from this source @ -[No] Did you review nursing and triage notes (agree or disagree)? Why? @ -[I reviewed and agree with nursing and triage notes] Were old charts reviewed (outside hosp., previous admission, EMS record, old EKG, old radiological studies, urgent care reports/EKG's, usp records)? Report findings @ -[No old charts were reviewed] Differential Diagnosis? @ -Gastroenteritis, viral syndrome, colitis, this is not all-inclusive list di fferential Mental Health Depression, anxiety, bipolar, psychosis, schizophrenia, borderline personality, situational depression, adjustment disorder, behavioral disorder, brain tumor, malingering, substance abuse, encephalopathy, medication reaction, dementia, hypothyroidism, degenerative neurologic disorder, lupus.... This is not meant to be all-inclusive list EKG interpreted by me (3pts min.). @ -[As above] X-rays interpreted by me (1pt min.). @ -[None done] CT interpreted by me (1pt min.). @ -[None done] U/S interpreted by me (1pt. min.). @ -[None done] What testing was considered but not performed or refused? (CT, X-rays, U/S, labs)? Why? @ -[None] What meds were considered but not given or refused? Why? @ -[None] Did you discuss the management of the patient with other professionals ( professionals i.e. , PA, ASSISTANT TO THE DIRECTOR, lab, RT, psych nurse, social services analyst, bus inspector, teacher, sports development officer, employment case manager)? Give summary @ -[No] Was smoking cessation discussed for >3mins.? @ -[No] Was critical care preformed (if so, how long)? @ -[No] Were there social determinants of health that impacted care today? How? (Homelessness, low income, unemployed, alcoholism, drug addiction, transportation, low edu. Level, literacy, decrease access to med. care, care home, rehab)? @ -[No] Was there de-escalation of care discussed even if they declined (Discuss DNR or withdrawal of care, Hospice)? DNR status @ -[No] What co-morbidities impacted this encounter? (DM, HTN, Smoking, COPD, CAD, Cancer, CVA, ARF, Chemo, Hep., AIDS, mental health diagnosis, sleep apnea, morbid obesity)? @ -[None] Was patient admitted / discharged? Hospital course, mention meds given and route, prescriptions, significant lab abnormalities, going to OR and other pertinent info. @ -Dr. Bangura will be taking the care of this patient at 9 PM (John Olivera) Was patient admitted / discharged? Hospital course, mention meds given and route, prescriptions, significant lab abnormalities, going to OR and other pertinent info. @ -I took over care of the patient. She is evaluated by EPS. They do feel that she should be transferred to a psychiatric facility as she states if she goes home she is going to kill herself. I did fill out a certification on the patient. She is currently pending transfer at this time Undiagnosed new problem with uncertain prognosis? @ -No Drug Therapy requiring intensive monitoring for toxicity (Heparin, Nitro, Insulin, Cardizem)? @ -No Were any procedures done? @ -No Diagnosis/symptom? @ -Acute nausea, vomiting, suicidal ideations Acute, or Chronic, or Acute on Chronic? @ -Acute Uncomplicated (without systemic symptoms) or Complicated (systemic symptoms)? @ -Complicated Side effects of treatment? @ -No Exacerbation, Progression, or Severe Exacerbation? @ -No Poses a threat to life or bodily function? How? (Chest pain, USA, PR, pneumonia, PE, COPD, DKA, ARF, appy, cholecystitis, CVA, Diverticulitis, Homicidal, Suicidal, threat to staff... and all critical care pts) @ -Yes as patient is reporting to suicidal ideations (Lesia Salas) Patient is a [facility] transfer pending placement. Patient accepted to [facility]. Accepting physician is Dr. Penny. Patient will be transferred on May 30, 2025. (Burak Robison) - Lab Data Lab Results 05/29/25 05/29/25 05/29/25 Range/Units 16:50 20:20 21:00 WBC 9.86 (4.50-10.00) 10*3/uL RBC 5.35 H (4.10-5.20) 10*6/uL Hgb 12.1 D (12.0-15.0) g/dL Hct 38.6 (37.2-46.3) % MCV 72.1 L D (80.0-97.0) fL MCH 22.6 L (27.0-32.0) pg MCHC 31.3 L (32.0-37.0) g/dL Plt Count 162 (140-440) 10*3/uL MPV 9.7 (9.5-12.2) fL Immature Gran % (Auto) 0.2 % Neutrophils % 75.8 % Lymphocytes % 14.1 % Monocytes % 8.7 % Eosinophils % 0.1 % Basophils % 1.1 % Immature Gran # 0.02 (0.00-0.04) 10*3/uL Neutrophils # 7.47 (1.80-7.70) 10*3/uL Lymphocytes # 1.39 (0.90-5.00) 10*3/uL Monocytes # 0.86 (0.20-1.00) 10*3/uL Eosinophils # 0.01 L (0.04-0.35) 10*3/uL Basophils # 0.11 H (0.00-0.10) 10*3/uL Manual Slide Review Performed Anisocytosis (manual) Present Stomatocytes Present Sodium 130 L (137-145) mmol/L Potassium 3.4 L (3.5-5.1) mmol/L Chloride 94 L (98-107) mmol/L Carbon Dioxide 28 (22-30) mmol/L Anion Gap 8 mmol/L BUN 9 (7-17) mg/dL Creatinine 0.50 L (0.52-1.04) mg/dL Est GFR (CKD-EPI)AfAm >90 (>60 ml/min/1.73 sqM) Est GFR (CKD-EPI)NonAf >90 (>60 ml/min/1.73 sqM) Glucose 107 H (74-99) mg/dL Calcium 9.2 (8.4-10.2) mg/dL Magnesium 1.6 (1.6-2.3) mg/dL Total Bilirubin 0.8 (0.2-1.3) mg/dL AST 39 H (14-36) U/L ALT 30 (4-34) U/L Alkaline Phosphatase 98 (38-126) U/L Total Protein 6.8 (6.3-8.2) g/dL Albumin 4.3 (3.5-5.0) g/dL Urine Opiates Screen Not Detected (NotDetected) Ur Oxycodone Screen Not Detected (NotDetected) Urine Methadone Screen Not Detected (NotDetected) Ur Barbiturates Screen Not Detected (NotDetected) U Tricyclic Antidepress Not Detected (NotDetected) Ur Phencyclidine Scrn Not Detected (NotDetected) Ur Amphetamines Screen Not Detected (NotDetected) U Methamphetamines Scrn Not Detected (NotDetected) U Benzodiazepines Scrn Not Detected (NotDetected) Urine Cocaine Screen Not Detected (NotDetected) U Marijuana (THC) Screen Not Detected (NotDetected) Serum Alcohol <10 mg/dL SARS-CoV-2 (PCR) (Not Detectd) 05/30/25 Range/Units 08:01 WBC (4.50-10.00) 10*3/uL RBC (4.10-5.20) 10*6/uL Hgb (12.0-15.0) g/dL Hct (37.2-46.3) % MCV (80.0-97.0) fL MCH (27.0-32.0) pg MCHC (32.0-37.0) g/dL Plt Count (140-440) 10*3/uL MPV (9.5-12.2) fL Immature Gran % (Auto) % Neutrophils % % Lymphocytes % % Monocytes % % Eosinophils % % Basophils % % Immature Gran # (0.00-0.04) 10*3/uL Neutrophils # (1.80-7.70) 10*3/uL Lymphocytes # (0.90-5.00) 10*3/uL Monocytes # (0.20-1.00) 10*3/uL Eosinophils # (0.04-0.35) 10*3/uL Basophils # (0.00-0.10) 10*3/uL Manual Slide Review Anisocytosis (manual) Stomatocytes Sodium (137-145) mmol/L Potassium (3.5-5.1) mmol/L Chloride (98-107) mmol/L Carbon Dioxide (22-30) mmol/L Anion Gap mmol/L BUN (7-17) mg/dL Creatinine (0.52-1.04) mg/dL Est GFR (CKD-EPI)AfAm (>60 ml/min/1.73 sqM) Est GFR (CKD-EPI)NonAf (>60 ml/min/1.73 sqM) Glucose (74-99) mg/dL Calcium (8.4-10.2) mg/dL Magnesium (1.6-2.3) mg/dL Total Bilirubin (0.2-1.3) mg/dL AST (14-36) U/L ALT (4-34) U/L Alkaline Phosphatase (38-126) U/L Total Protein (6.3-8.2) g/dL Albumin (3.5-5.0) g/dL Urine Opiates Screen (NotDetected) Ur Oxycodone Screen (NotDetected) Urine Methadone Screen (NotDetected) Ur Barbiturates Screen (NotDetected) U Tricyclic Antidepress (NotDetected) Ur Phencyclidine Scrn (NotDetected) Ur Amphetamines Screen (NotDetected) U Methamphetamines Scrn (NotDetected) U Benzodiazepines Scrn (NotDetected) Urine Cocaine Screen (NotDetected) U Marijuana (THC) Screen (NotDetected) Serum Alcohol mg/dL SARS-CoV-2 (PCR) Not Detected (Not Detectd) Disposition <John Olivera - Last Filed: 05/29/25 20:48> Is patient prescribed a controlled substance at d/c from ED?: No <Lesia Salas - Last Filed: 05/30/25 06:22> <Burak Robison - Last Filed: 05/30/25 12:39> Clinical Impression: Depression Disposition: TRANSFER TO PSYCH HOSP/UNIT Condition: Stable Referrals: Victor Hugo Cantor MD [Primary Care Provider] - 1-2 days
[2025-05-29] MEDS: SODIUM CHLORIDE 0.9% 1,000 ML IV ONE (18:55)
[2025-05-29] MEDS: ONDANSETRON 4 MG/2 ML VIAL IVP STA (18:56)
[2025-05-29] MEDS: DIPHENOX-ATROP 2.5-0.025 MG 1 EACH TAB PO STA (18:57)
[2025-05-29 18:59] LABS: Basophils # (A) 0.11 10*3/uL (0.00-0.10); Basophils % (A) 1.1 %; Eosinophils # (A) 0.01 10*3/uL (0.04-0.35); Eosinophils % (A) 0.1 %; HCT 38.6 % (37.2-46.3); Lymphocytes # (A) 1.39 10*3/uL (0.90-5.00); Lymphocytes % (A) 14.1 %; MCH 22.6 pg (27.0-32.0); MCHC 31.3 g/dL (32.0-37.0); Monocytes # (A) 0.86 10*3/uL (0.20-1.00); Monocytes % (A) 8.7 %; Neutrophils # (A) 7.47 10*3/uL (1.80-7.70); Neutrophils % (A) 75.8 %; RBC 5.35 10*6/uL (4.10-5.20); RDW 22.3 % (11.5-14.5); WBC 9.86 10*3/uL (4.50-10.00)
[2025-05-29 19:09] LABS: HGB 12.1 g/dL (12.0-15.0); MCV 72.1 fL (80.0-97.0)
[2025-05-29 19:25] LABS: Platelet Count 162 10*3/uL (140-440); Stomatocytes Present
[2025-05-29 19:26] LABS: Anisocytosis (M) Present
[2025-05-29] MEDS: hydrALAZINE HCL 20 MG/ML 1 ML VIAL IVP STA (20:28)
[2025-05-29 20:45] LABS: ALT 30 U/L (4-34); AST 39 U/L (14-36); African American GFR (CKD) >90 (>60 ml/min/1.73 sqM); Albumin 4.3 g/dL (3.5-5.0); Alkaline Phosphatase 98 U/L (38-126); Anion Gap 8 mmol/L; Blood Urea Nitrogen 9 mg/dL (7-17); Calcium 9.2 mg/dL (8.4-10.2); Carbon Dioxide 28 mmol/L (22-30); Chloride 94 mmol/L (98-107); Glucose 107 mg/dL (74-99); Magnesium 1.6 mg/dL (1.6-2.3); Non-African American GFR(CKD) >90 (>60 ml/min/1.73 sqM); Potassium 3.4 mmol/L (3.5-5.1); Sodium 130 mmol/L (137-145); Total Protein 6.8 g/dL (6.3-8.2)
[2025-05-29 21:55] LABS: Barbiturate Screen,Urine Not Detected (NotDetected); Benzodiazepines Screen,Urine Not Detected (NotDetected); Opiate Screen,Urine Not Detected (NotDetected); Oxycodone Screen, Urine Not Detected (NotDetected); Phencyclidine Screen,Urine Not Detected (NotDetected); Tricyclic Antidepressant,Urine Not Detected (NotDetected); Urn Cannabinoid Scrn Not Detected (NotDetected)
[2025-05-30] MEDS: IBUPROFEN 600 MG TAB PO STA ×2 (00:16→08:33)
[2025-05-30] MEDS: FAMOTIDINE 20 MG TAB PO STA ×2 (04:32→07:52)
[2025-05-30] MEDS: LORazepam 1 MG/0.5 ML VIAL IV STA (04:32)
[2025-05-30 07:56] VITALS: RESP 16; TEMP 97.8
[2025-05-30] MEDS: ONDANSETRON ODT 4 MG TAB PO STA (10:21)
[2025-05-30 14:36] VITALS: BP 145/87; PULSE 89
== END 2025-05-30 14:35 ==
LOC: EC 18:28
DX: F32.A Depression, unspecified (principal); F17.200 Nicotine dependence, unspecified, uncomplicated; Z91.018 Allergy to other foods; Z91.048 Other nonmedicinal substance allergy status; Z88.5 Allergy status to narcotic agent; Z91.040 Latex allergy status; Z88.7 Allergy status to serum and vaccine; Z88.8 Allergy status to other drugs, medicaments and biological substances
CPT/HCPCS: 36415; 80053; 80306; 80320; 82075; 83735; 85025; 87635; 96361; 96374; 96375; 99285

== ENCOUNTER 2025-06-09 17:00 | Emergency (ER) | payer OTHER ==
[2025-06-09] MEDS: METOPROLOL TARTRATE 25 MG TAB PO STA (17:54)
--- NOTE | 2025-06-09 19:53 | ED ---
Psych HPI - General Chief Complaint: Psychiatric Symptoms Stated Complaint: Suicidal Time Seen by Provider: 06/09/25 17:03 Source: EMS Mode of arrival: EMS Limitations: no limitations - History of Present Illness Initial Comments: This patient is a 65-year-old woman who arrives here to have evaluation related to suicidal ideation. The patient states that she had been admitted to the medical facility in [place]. She had been there 10 days and was released today. She states that she arrived to her residence to find that she was being evicted. The patient states that she does not know what she is going to do and she is feeling very depressed and suicidal. Has history of chronic alcohol abuse but has not had a drink since prior to going to the other facility. MD Complaint: suicidal ideation, feels depressed -: hour(s) Associated Psychiatric Symptoms: depression, suicidal ideation History of same: Yes Quality: getting worse Improves With: none Worsens With: none Context: significant life stressor - Related Data Home Medications Medication Instructions Recorded Confirmed Budesonide/Formoterol Fumarate 2 puff INHALATION RT-BID 07/29/23 04/12/25 [Symbicort 160-4.5 Mcg Inhaler] Albuterol Sulfate [Ventolin HFA] 2 puff INHALATION RT-Q6H PRN 09/10/24 04/12/25 Albuterol Nebulized [Ventolin 2.5 mg INHALATION RT-Q6H PRN 01/08/25 04/12/25 Nebulized] Brimonidine Tartrate [Alphagan P 1 drop BOTH EYES BID 01/30/25 04/12/25 0.2% Ophth Soln] Ticagrelor [Brilinta] 90 mg PO BID 01/30/25 04/12/25 Previous Rx's Medication Instructions Recorded Aspirin EC [Ecotrin Low Dose] 81 mg PO HS #90 tab 05/25/24 Isosorbide Mononitrate ER [Imdur] 30 mg PO HS #90 tab 05/25/24 Metoprolol Succinate (ER) [Toprol 50 mg PO HS #90 tab 05/25/24 XL] Losartan [Cozaar] 50 mg PO DAILY #30 tab 02/02/25 hydrALAZINE HCL [Apresoline] 50 mg PO TID #90 tab 02/02/25 Benzocaine/Menthol Lozeng [Cepacol 1 each MUCOUS MEM Q4HR PRN lozenge 04/13/25 lozenge] Nicotine 14Mg/24Hr Patch [Habitrol] 1 patch TRANSDERM DAILY patch 04/13/25 Ondansetron Odt [Zofran Odt] 4 mg PO Q8HR PRN #10 tab 04/13/25 Sodium Chloride 0.65% Nasal [Deep 2 spray NASAL QID PRN #5 ml 04/13/25 Sea (Saline)] Allergies Allergy/AdvReac Type Severity Reaction Status Date / Time adhesive tape Allergy Rash/Hives Verified 06/09/25 17:12 latex Allergy Rash/Hives Verified 06/09/25 17:12 amlodipine [From Norvasc] AdvReac Cough Verified 06/09/25 17:12 cinnamon AdvReac Nausea Verified 06/09/25 17:12 clonidine AdvReac "almost Verified 06/09/25 17:12 passed out" gabapentin AdvReac Dizziness Verified 06/09/25 17:12 Influenza Virus Vaccines AdvReac Nausea & Verified 06/09/25 17:12 Vomiting lisinopril AdvReac Cough Verified 06/09/25 17:12 magnesium oxide AdvReac Anaphylaxis Verified 06/09/25 17:12 morphine AdvReac Nausea & Verified 06/09/25 17:12 Vomiting sucralfate [From Carafate] AdvReac Abdominal Verified 06/09/25 17:12 Pain tomato AdvReac Diarrhea Verified 06/09/25 17:12 Review of Systems ROS Statement: Those systems with pertinent positive or pertinent negative responses have been documented in the HPI. ROS Other: All systems not noted in ROS Statement are negative. Constitutional: Denies: fever, chills Respiratory: Denies: cough, dyspnea Cardiovascular: Denies: chest pain, palpitations Gastrointestinal: Denies: abdominal pain, vomiting, diarrhea Genitourinary: Denies: dysuria, hematuria Skin: Denies: rash Neurological: Denies: headache, weakness Psychiatric: Reports: depression, suicidal thoughts Past Medical History Past Medical History: Asthma, Coronary Artery Disease (CAD), COPD, CVA/TIA, Eye Disorder, Hypertension, Liver Disease, Myocardial Infarction ([place]), Seizure Disorder, Vascular Disorder Additional Past Medical History / Comment(s): Pt recently admitted to [facility] for diarrhea, ETOH abuse. 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 Past Psychological History: Anxiety, Depression Smoking Status: Current every day smoker Past Alcohol Use History: Abuse, Daily, Heavy Past Drug Use History: Marijuana - Past Family History Mother Family Medical History: Cancer, Congestive Heart Failure (CHF), Coronary Artery Disease (CAD), Hyperlipidemia Additional Family Medical History / Comment(s): Mother at age 85 from lung cancer. Father Family Medical History: Cancer, COPD Additional Family Medical History / Comment(s): Father at age 63 from lung cancer. Brother(s) Additional Family Medical History / Comment(s): Patient has a total of 7 siblings. 5 are alive without any major medical problems she is aware of. 2 siblings have one from alcohol abuse and 1. Coronary artery disease. Daughter(s) Family Medical History: No Reported History Additional Family Medical History / Comment(s): Patient has one daughter with no major medical problems. General Exam General appearance: alert, in no apparent distress Head exam: Present: atraumatic, normocephalic Eye exam: Present: normal appearance. Absent: scleral icterus, conjunctival injection ENT exam: Present: normal oropharynx Neck exam: Present: normal inspection Respiratory exam: Present: normal lung sounds bilaterally. Absent: respiratory distress, wheezes, rales, rhonchi, stridor, accessory muscle use Cardiovascular Exam: Present: regular rate, normal rhythm, normal heart sounds. Absent: systolic murmur, diastolic murmur, rubs, gallop GI/Abdominal exam: Present: soft. Absent: distended, tenderness, guarding, rebound, rigid, mass Extremities exam: Present: normal inspection, normal capillary refill. Absent: pedal edema, calf tenderness Back exam: Present: normal inspection. Absent: CVA tenderness (R), CVA tenderness (L) Neurological exam: Present: alert Psychiatric exam: Present: depressed, anxious, suicidal ideation. Absent: agitated, flat affect, manic, homicidal ideation Skin exam: Present: warm, dry, intact, normal color. Absent: rash Course Vital Signs 06/09/25 06/09/25 06/09/25 17:13 18:51 21:40 Temperature 98.8 F 98.1 F Pulse Rate 94 76 777 H Respiratory 19 16 18 Rate Blood Pressure 169/106 162/89 157/99 O2 Sat by Pulse 96 96 95 Oximetry Disposition Clinical Impression: Mood disorder Disposition: HOME SELF-CARE Condition: Good Instructions (If sedation given, give patient instructions): Mood Disorders (ED) Is patient prescribed a controlled substance at d/c from ED?: No Referrals: Victor Hugo Cantor MD [Primary Care Provider] - 1-2 days
[2025-06-09 21:41] VITALS: BP 157/99; PULSE 777; RESP 18; TEMP 98.1
== END 2025-06-09 22:55 | disposition home or self-care (01) ==
LOC: EC 17:00
DX: F39 Unspecified mood [affective] disorder (principal); F17.200 Nicotine dependence, unspecified, uncomplicated; Z91.018 Allergy to other foods; Z91.040 Latex allergy status; Z91.048 Other nonmedicinal substance allergy status; Z88.5 Allergy status to narcotic agent; Z88.7 Allergy status to serum and vaccine; Z88.8 Allergy status to other drugs, medicaments and biological substances
CPT/HCPCS: 82075; 99285

== ENCOUNTER 2025-06-10 09:59 | Emergency (ER) | payer OTHER ==
[2025-06-10] MEDS: LORazepam 1 MG TAB PO STA (10:41)
--- NOTE | 2025-06-10 10:53 | ED ---
Anxiety HPI - General Chief Complaint: Anxiety Stated Complaint: Anxiety Time Seen by Provider: 06/10/25 10:05 Source: patient, EMS Mode of arrival: EMS - History of Present Illness Initial Comments: 65-year-old female with past medical history of alcoholism, coronary artery disease presents to the emergency department with anxiety. Patient was just released from a psychiatric facility yesterday morning. She came in last night for anxiety. Presents again today for anxiety. She claims that she does not know what medication she was discharged from the psychiatric facility on. Also does not know where she is supposed to go to have outpatient appointments. States that she cannot get a hold of the [facility] as they are the ones that are supposed to explain all of this to her. She was supposed to go today but states that she was too anxious to go. She denies that she has been recently drinking. No other alleviating, precipitating or modifying factors - Related Data Home Medications: Home Medications Medication Instructions Recorded Confirmed Budesonide/Formoterol Fumarate 2 puff INHALATION RT-BID 07/29/23 04/12/25 [Symbicort 160-4.5 Mcg Inhaler] Albuterol Sulfate [Ventolin HFA] 2 puff INHALATION RT-Q6H PRN 09/10/24 04/12/25 Albuterol Nebulized [Ventolin 2.5 mg INHALATION RT-Q6H PRN 01/08/25 04/12/25 Nebulized] Brimonidine Tartrate [Alphagan P 1 drop BOTH EYES BID 01/30/25 04/12/25 0.2% Ophth Soln] Ticagrelor [Brilinta] 90 mg PO BID 01/30/25 04/12/25 Previous Rx's Medication Instructions Recorded Aspirin EC [Ecotrin Low Dose] 81 mg PO HS #90 tab 05/25/24 Isosorbide Mononitrate ER [Imdur] 30 mg PO HS #90 tab 05/25/24 Metoprolol Succinate (ER) [Toprol 50 mg PO HS #90 tab 05/25/24 XL] Losartan [Cozaar] 50 mg PO DAILY #30 tab 02/02/25 hydrALAZINE HCL [Apresoline] 50 mg PO TID #90 tab 02/02/25 Benzocaine/Menthol Lozeng [Cepacol 1 each MUCOUS MEM Q4HR PRN lozenge 04/13/25 lozenge] Nicotine 14Mg/24Hr Patch [Habitrol] 1 patch TRANSDERM DAILY patch 04/13/25 Ondansetron Odt [Zofran Odt] 4 mg PO Q8HR PRN #10 tab 04/13/25 Sodium Chloride 0.65% Nasal [Deep 2 spray NASAL QID PRN #5 ml 04/13/25 Sea (Saline)] Allergies/Adverse Reactions: Allergies Allergy/AdvReac Type Severity Reaction Status Date / Time adhesive tape Allergy Rash/Hives Verified 06/10/25 10:06 latex Allergy Rash/Hives Verified 06/10/25 10:06 amlodipine [From Norvasc] AdvReac Cough Verified 06/10/25 10:06 cinnamon AdvReac Nausea Verified 06/10/25 10:06 clonidine AdvReac "almost Verified 06/10/25 10:06 passed out" gabapentin AdvReac Dizziness Verified 06/10/25 10:06 Influenza Virus Vaccines AdvReac Nausea & Verified 06/10/25 10:06 Vomiting lisinopril AdvReac Cough Verified 06/10/25 10:06 magnesium oxide AdvReac Anaphylaxis Verified 06/10/25 10:06 morphine AdvReac Nausea & Verified 06/10/25 10:06 Vomiting sucralfate [From Carafate] AdvReac Abdominal Verified 06/09/25 17:12 Pain tomato AdvReac Diarrhea Verified 06/09/25 17:12 Review of Systems ROS Statement: Those systems with pertinent positive or pertinent negative responses have been documented in the HPI. ROS Other: All systems not noted in ROS Statement are negative. Past Medical History Past Medical History: Asthma, Coronary Artery Disease (CAD), COPD, CVA/TIA, Eye Disorder, Hypertension, Liver Disease, Myocardial Infarction ([place]), Seizure Disorder, Vascular Disorder Additional Past Medical History / Comment(s): Pt recently admitted to [facility] for diarrhea, ETOH abuse. 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 Past Psychological History: Anxiety, Depression Smoking Status: Current every day smoker Past Alcohol Use History: Abuse, Daily, Heavy Past Drug Use History: Marijuana - Past Family History Mother Family Medical History: Cancer, Congestive Heart Failure (CHF), Coronary Artery Disease (CAD), Hyperlipidemia Additional Family Medical History / Comment(s): Mother at age 85 from lung cancer. Father Family Medical History: Cancer, COPD Additional Family Medical History / Comment(s): Father at age 63 from lung cancer. Brother(s) Additional Family Medical History / Comment(s): Patient has a total of 7 siblings. 5 are alive without any major medical problems she is aware of. 2 siblings have one from alcohol abuse and 1. Coronary artery disease. Daughter(s) Family Medical History: No Reported History Additional Family Medical History / Comment(s): Patient has one daughter with no major medical problems. General Exam Limitations: no limitations General appearance: alert, in no apparent distress Head exam: Present: atraumatic, normocephalic, normal inspection Eye exam: Present: normal appearance, PERRL, EOMI. Absent: scleral icterus, conjunctival injection, periorbital swelling ENT exam: Present: normal exam, mucous membranes moist Neck exam: Present: normal inspection. Absent: tenderness, meningismus, lymphadenopathy Respiratory exam: Present: normal lung sounds bilaterally. Absent: respiratory distress, wheezes, rales, rhonchi, stridor Cardiovascular Exam: Present: regular rate, normal rhythm, normal heart sounds. Absent: systolic murmur, diastolic murmur, rubs, gallop, clicks GI/Abdominal exam: Present: soft, normal bowel sounds. Absent: distended, tenderness, guarding, rebound, rigid Extremities exam: Present: normal inspection, full ROM, normal capillary refill. Absent: tenderness, pedal edema, joint swelling, calf tenderness Back exam: Present: normal inspection Neurological exam: Present: alert, oriented X3, CN II-XII intact Psychiatric exam: Present: normal affect, normal mood Skin exam: Present: warm, dry, intact, normal color. Absent: rash Course Vital Signs 06/10/25 06/10/25 10:02 11:36 Temperature 97.7 F 97.6 F Pulse Rate 67 74 Respiratory 18 17 Rate Blood Pressure 145/94 145/95 O2 Sat by Pulse 96 95 Oximetry Medical Decision Making - Medical Decision Making Was pt. sent in by a medical professional or institution (, YESSY, MARKETING PROGRAM MANAGER, urgent care, hospital, or [facility]...) When possible be specific @ -No Did you speak to anyone other than the patient for history (EMS, parent, family, police, friend...)? What history was obtained from this source @ -Spoke with EMS for history Did you review nursing and triage notes (agree or disagree)? Why? @ -I reviewed and agree with nursing and triage notes Were old charts reviewed (outside hosp., previous admission, EMS record, old EKG, old radiological studies, urgent care reports/EKG's, [facility] records)? Report findings @ -I did review the ED note from last night where patient was seen for same complaint Differential Diagnosis (chest pain, altered mental status, abdominal pain women, abdominal pain men, vaginal bleeding, weakness, fever, dyspnea, syncope, headache, dizziness, GI bleed, back pain, seizure, CVA, palpatations, mental health, musculoskeletal)? @ -Differential Mental Health Depression, anxiety, bipolar, psychosis, schizophrenia, borderline personality, situational depression, adjustment disorder, behavioral disorder, brain tumor, malingering, substance abuse, encephalopathy, medication reaction, dementia, hypothyroidism, degenerative neurologic disorder, lupus.... This is not meant to be all-inclusive list EKG interpreted by me (3pts min.). @ -Not done X-rays interpreted by me (1pt min.). @ -None done CT interpreted by me (1pt min.). @ -None done U/S interpreted by me (1pt. min.). @ -None done What testing was considered but not performed or refused? (CT, X-rays, U/S, labs)? Why? @ -None What meds were considered but not given or refused? Why? @ -None Did you discuss the management of the patient with other professionals (professionals i.e. , YESSY, MARKETING PROGRAM MANAGER, lab, RT, psych nurse, hospital social worker, monument letterer, teacher, attendance officer, high risk case manager)? Give summary @Spoke with Cari who does call the [facility] and states that they have been trying to get a hold of the patient. She called them yesterday and then hung up on them. She turned her phone off. They are willing to come pick her up to take him to her [facility] Was smoking cessation discussed for >3mins.? @ -No Was critical care preformed (if so, how long)? @ -No Were there social determinants of health that impacted care today? How? (Homelessness, low income, unemployed, alcoholism, drug addiction, transportation, low edu. Level, literacy, decrease access to med. care, long term, rehab)? @ -No Was there de-escalation of care discussed even if they declined (Discuss DNR or withdrawal of care, Hospice)? DNR status @ -No What co-morbidities impacted this encounter? (DM, HTN, Smoking, COPD, CAD, Cancer, CVA, ARF, Chemo, Hep., AIDS, mental health diagnosis, sleep apnea, morbid obesity)? @ -Alcoholism Was patient admitted / discharged? Hospital course, mention meds given and route, prescriptions, significant lab abnormalities, going to OR and other pertinent info. @ -Upon arrival patient seen and evaluated in bed 11. She was given an Ativan. Patient has been evasive with the [facility] program. Patient is willing to come pick her up. Patient will be discharged into their care so that way they can go over her medication changes as well as her outpatient follow-up. Patient discharged in stable condition Undiagnosed new problem with uncertain prognosis? @ -No Drug Therapy requiring intensive monitoring for toxicity (Heparin, Nitro, Insulin, Cardizem)? @ -No Were any procedures done? @ -No Diagnosis/symptom? @ -Acute on chronic anxiety Acute, or Chronic, or Acute on Chronic? @ -Acute Uncomplicated (without systemic symptoms) or Complicated (systemic symptoms)? @ -Complicated Side effects of treatment? @ -No Exacerbation, Progression, or Severe Exacerbation? @ -No Poses a threat to life or bodily function? How? (Chest pain, [place], [place], pneumonia, PE, COPD, DKA, ARF, appy, cholecystitis, CVA, Diverticulitis, Homicidal, Suicidal, threat to staff... and all critical care pts) @ -No Disposition Clinical Impression: Acute anxiety Disposition: HOME SELF-CARE Condition: Stable Instructions (If sedation given, give patient instructions): Generalized Anxiety Disorder (ED) Additional Instructions: [facility] coming to pick you up and will explain all of your appointments and medications with you Is patient prescribed a controlled substance at d/c from ED?: No Referrals: Victor Hugo Cantor MD [Primary Care Provider] - 1-2 days Time of Disposition: 10:52
[2025-06-10 11:42] VITALS: BP 145/95; PULSE 74; RESP 17; TEMP 97.6
== END 2025-06-10 11:42 | disposition home or self-care (01) ==
LOC: EC 09:59
DX: F41.9 Anxiety disorder, unspecified (principal); F17.200 Nicotine dependence, unspecified, uncomplicated; Z91.048 Other nonmedicinal substance allergy status; Z91.040 Latex allergy status; Z88.5 Allergy status to narcotic agent; Z88.7 Allergy status to serum and vaccine; Z88.8 Allergy status to other drugs, medicaments and biological substances; Z91.018 Allergy to other foods
CPT/HCPCS: 99283